=== PATIENT | male | born 1970 | race Caucasian/White ===

== ENCOUNTER → 2022-07-16 | Outpatient (CLI) | payer SELFPAY ==
[2022-07-16 12:16] LABS: Absolute Lymphocyte Count 1.45 X10^3/uL (0.83-4.51); Absolute Neutrophil Count 5.3 X10^3/uL (2.0-7.7); Basophil# 0.06 X10^3/uL; Basophil% 0.7 % (0-1); Eosinophil# 0.21 X10^3/uL; Eosinophils% 2.5 % (0-5); Hematocrit 31.7 % (40-54); Hemoglobin 9.4 g/dL (13.0-16.5); Lymphocyte # 1.45 X10^3/ul (0.83-4.51); Lymphocyte % 17.3 % (19-41); Mean Corp Hgb Conc 29.7 g/dL (32-36); Mean Corpuscular Hgb 26.3 pg (27.0-32.0); Mean Corpuscular Volume 88.8 fL (80-94); Mean Platelet Vol. 8.7 fl (6.2-12.0); Monocyte% 15.5 % (0-10); NRBC Flagged by Analyzer 0 % (0-5); Neutrophil # 5.32 X10^3/uL (2.7-7.7); Neutrophil % 63.6 % (47-70); POSITIVE COUNT YES; RBC Distribution Width SD 54.6 fl (35.1-43.9); Red Blood Count 3.57 M/mm3 (4.6-6.2); White Blood Count 8.4 K/mm3 (4.4-11.0)
[2022-07-16 12:17] LABS: AST(SGOT) 15 U/L (15-37); Alanine Aminotransfer ALT/SGPT 33 U/L (16-61); Albumin, Serum 2.4 g/dL (3.2-5.0); Alkaline Phosphatase 156 U/L (45-117); Bilirubin, Direct 0.24 mg/dL (0.00-0.30); CPK Total, Creatine Kinase 61 U/L (39-308); Creatinine, Serum 0.81 mg/dL (0.70-1.30); EST Glomerular Filtration Rate 107 mL/min (>60); Est Glom Filt Rate - Afr Amer 129 mL/min (>60); Globulin 5.8 g/dL (2.2-4.2); Protein, Total 8.2 g/dL (6.4-8.2)
[2022-07-16 12:21] LABS: Differential Indicated SCAN CRITERIA MET
[2022-07-16 13:14] LABS: Platelet Estimate MKD INC (ADEQ); Red Cell Morphology NORM C+C NORMAL (NORM C&C)
[2022-07-16 13:26] LABS: Platelet Count 825 K/mm3 (150-450)
[2022-07-17 13:54] LABS: Pathologist Review Reviewed
== END | disposition home or self-care (01) ==
DX: A41.9 Sepsis, unspecified organism (principal); C78.6 Secondary malignant neoplasm of retroperitoneum and peritoneum; C18.1 Malignant neoplasm of appendix; Z48.3 Aftercare following surgery for neoplasm
CPT/HCPCS: 80076; 82550; 82565; 85025

== ENCOUNTER → 2022-07-25 | Outpatient (CLI) | payer BC, SELFPAY ==
[2022-07-25 09:54] LABS: Absolute Lymphocyte Count 1.61 X10^3/uL (0.83-4.51); Absolute Neutrophil Count 4.8 X10^3/uL (2.0-7.7); Basophil# 0.05 X10^3/uL; Basophil% 0.6 % (0-1); Eosinophil# 0.37 X10^3/uL; Eosinophils% 4.6 % (0-5); Hemoglobin 9.5 g/dL (13.0-16.5); Lymphocyte # 1.61 X10^3/ul (0.83-4.51); Lymphocyte % 19.8 % (19-41); Mean Corp Hgb Conc 30.6 g/dL (32-36); Mean Corpuscular Hgb 27.1 pg (27.0-32.0); Mean Corpuscular Volume 88.3 fL (80-94); Mean Platelet Vol. 8.7 fl (6.2-12.0); Monocyte# 1.23 X10^3/uL; Monocyte% 15.1 % (0-10); NRBC Flagged by Analyzer 0 % (0-5); Neutrophil # 4.84 X10^3/uL (2.7-7.7); Neutrophil % 59.7 % (47-70); Platelet Count 721 K/mm3 (150-450); RBC Distribution Width SD 54.6 fl (35.1-43.9); Red Blood Count 3.51 M/mm3 (4.6-6.2); White Blood Count 8.1 K/mm3 (4.4-11.0)
[2022-07-25 10:06] LABS: AST(SGOT) 22 U/L (15-37); Alanine Aminotransfer ALT/SGPT 31 U/L (16-61); Albumin, Serum 2.6 g/dL (3.2-5.0); Alkaline Phosphatase 145 U/L (45-117); Bilirubin, Direct 0.18 mg/dL (0.00-0.30); CPK Total, Creatine Kinase 174 U/L (39-308); Creatinine, Serum 0.69 mg/dL (0.70-1.30); EST Glomerular Filtration Rate 129 mL/min (>60); Est Glom Filt Rate - Afr Amer 156 mL/min (>60); Globulin 5.5 g/dL (2.2-4.2); Protein, Total 8.1 g/dL (6.4-8.2)
== END | disposition home or self-care (01) ==
PROVIDERS: PCP Internal Medicine
DX: A41.9 Sepsis, unspecified organism (principal); Z51.89 Encounter for other specified aftercare
CPT/HCPCS: 80076; 82550; 82565; 85025

== ENCOUNTER 2024-05-04 01:56 | Emergency (ER) | payer BC, SELFPAY ==
[2024-05-04 01:57] VITALS: BP 122/84; PULSE 87; RESP 16; TEMP 36.6; O2SAT 97; BMI 30.3
--- NOTE | 2024-05-04 02:47 | CT_ITS ---
EXAM: CT ABDOMEN AND PELVIS WITH INTRAVENOUS CONTRAST CLINICAL INDICATION: vomiting, ileostomy, concern for SBO. History of appendiceal cancer with colectomy, ileostomy, and splenectomy. TECHNIQUE: Helically acquired images were obtained of the abdomen and pelvis with intravenous contrast. This CT exam was performed using one or more of the following dose reduction techniques: automated exposure control, adjustment of the mA and/or kV according to patient size, and/or use of iterative reconstruction technique. CONTRAST: 100 cc of Isovue-370 IV. Gastrografin oral contrast. RADIATION DOSE: CTDIvol = 18.30 mGy, DLP = 1304.35 mGy-cm COMPARISON: No relevant prior studies available. FINDINGS: LOWER THORAX: Unremarkable. Lung bases are clear. No cardiomegaly. No significant pericardial effusion. ABDOMEN: LIVER: Cyst measuring 2.5 cm left lobe of the liver. GALLBLADDER AND BILE DUCTS: Unremarkable. No calcified gallstones. No gallbladder distention or wall edema. No intra- or extrahepatic biliary ductal dilation. PANCREAS: Unremarkable. No focal cystic or solid mass. SPLEEN: Absent spleen. ADRENALS: Unremarkable. No nodules. KIDNEYS AND URETERS: Unremarkable. Normal renal size and position. No hydronephrosis. STOMACH AND BOWEL: Status post colectomy with ileostomy and Winters''s pouch. Oral contrast is seen throughout the small bowel. No bowel obstruction. PELVIS: APPENDIX: Status post appendectomy. BLADDER: Unremarkable. REPRODUCTIVE: Unremarkable as visualized. No mass. ABDOMEN and PELVIS: INTRAPERITONEAL SPACE: Extensive relatively low density masses throughout the peritoneum, mesentery, and omentum that causes some scalloping of the surface of the liver and mass effect on the bowel. No ascites or other fluid collection. No free air. BONES/JOINTS: Unremarkable. No suspicious lytic or blastic abnormality. SOFT TISSUES: Unremarkable. No discrete abdominal or pelvic wall hernia. VASCULATURE: Unremarkable. Abdominal aorta is non-dilated. LYMPH NODES: Unremarkable. No enlarged lymph nodes. CT/Abdomen/Pelvis WITH Contrast IMPRESSION: 1. Extensive relatively low density masses throughout the peritoneum, mesentery, and omentum that causes some scalloping of the surface of the liver and mass effect on the bowel. Findings consistent with pseudomyxoma peritonei. 2. Status post colectomy with ileostomy and Winters''s pouch. 3. Cyst measuring 2.5 cm left lobe of the liver. 4. Absent spleen. N.B. : The above Results were Read Back by Rohit Temple MD to Ish Avendaño MD, and understanding confirmed on 05/04/2024 05:14:33 (ET). Electronically Signed: Rohit Temple MD at 5:18 EDT ,
[2024-05-04] MEDS: Ondansetron 4 MG/2 ML Vial IV (02:53)
[2024-05-04 02:54] LABS: Absolute Lymphocyte Count 1.09 X10^3/uL (0.83-4.51); Absolute Neutrophil Count 13.2 X10^3/uL (2.0-7.7); Basophil# 0.08 X10^3/uL; Basophil% 0.5 % (0-1); Eosinophil# 0.86 X10^3/uL; Eosinophils% 5.1 % (0-5); Hematocrit 47.2 % (40-54); Hemoglobin 15.6 g/dL (13.0-16.5); Lymphocyte # 1.09 X10^3/ul (0.83-4.51); Lymphocyte % 6.4 % (19-41); Mean Corp Hgb Conc 33.1 g/dL (32-36); Mean Corpuscular Hgb 30.1 pg (27.0-32.0); Mean Corpuscular Volume 91.1 fL (80-94); Mean Platelet Vol. 8.6 fl (6.2-12.0); Monocyte# 1.71 X10^3/uL; Monocyte% 10.1 % (0-10); NRBC Flagged by Analyzer 0 % (0-5); Neutrophil # 13.16 X10^3/uL (2.7-7.7); Neutrophil % 77.5 % (47-70); POSITIVE DIFFERENTIAL YES; Platelet Count 426 K/mm3 (150-450); RBC Distribution Width CV 14.3 % (11.6-14.6); RBC Distribution Width SD 47.2 fl (35.1-43.9); Red Blood Count 5.18 M/mm3 (4.6-6.2)
[2024-05-04 02:55] LABS: Differential Indicated SCAN CRITERIA MET
[2024-05-04] MEDS: 0.9% Normal Saline (1000mL) 1,000 ML 125 ML IV (02:57)
[2024-05-04 02:59] VITALS: BP 125/93; PULSE 93; RESP 16; TEMP 36.5; O2SAT 96
[2024-05-04 03:08] LABS: ALB/GLOB Ratio 0.8 RATIO (0.9-2.4); AST(SGOT) 15 U/L (15-37); Alanine Aminotransfer ALT/SGPT 28 U/L (16-61); Albumin, Serum 3.9 g/dL (3.2-5.0); Alkaline Phosphatase 134 U/L (45-117); Anion Gap 8 (5-15); BUN 31 mg/dL (7-18); BUN/Creat Ratio 23.5 RATIO (10-20); Calcium,Total 9.6 mg/dL (8.5-10.1); Chloride 110 mmol/L (98-107); Creatinine, Serum 1.32 mg/dL (0.70-1.30); EST Glomerular Filtration Rate 61 mL/min (>60); Est Glom Filt Rate - Afr Amer 73 mL/min (>60); Estimated Creatinine Clearance 83.02 ml/min; Globulin 5.2 g/dL (2.2-4.2); Glucose 164 mg/dL (74-106); Potassium 3.9 mmol/L (3.5-5.1); Protein, Total 9.1 g/dL (6.4-8.2); Sodium Level 134 mmol/L (136-145)
[2024-05-04 03:24] LABS: Differential Comment SCANNED
[2024-05-04 03:38] LABS: Lactic Acid 1.1 mmol/L (0.4-1.9)
--- NOTE | 2024-05-04 03:52 | EDS_ITS ---
HPI HPI - GI History of Present Illness Chief Complaint: Abd Pain Informant: patient and family Narrative Narrative: 54-year-old male presents with about 3 hours of vomiting and increased watery ileostomy output. Denies any abdominal pain. No hematemesis or blood or melena output from the stoma. He states for the last couple days prior to this, he would have transient decreased stoma output but it never stopped, and he had no pain or nausea/vomiting or fevers along with it. 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 He states when they found issues in the past he did not have pain, and he and family specifically state they are here to be evaluated for a bowel obstruction. He denies any fevers or chills or sick contacts lately, including anyone with gastroenteritis. He denies any suspicious food ingestion. No travel out of the area of the country lately. No pains elsewhere. No history of C. difficile, no recent antibiotics for anything. No recent hospitalizations. [facility] Medical History (Updated 05/04/24 @ 05:[address] Ish Avendaño MD) Cancer of appendix Ileostomy present Acute appendicitis Home Medications ?Medication ?Instructions ?Recorded ?Last Taken ?Type bupropion HCl 150 mg tablet,12 hr 150 mg PO DAILY 05/04/24 Unknown History sustained-release fluvoxamine 150 mg 150 mg PO DAILY 05/04/24 Unknown History capsule,extended release 24 hr ondansetron 8 mg disintegrating 8 mg PO Q8H PRN nausea and 05/04/24 Unknown Rx tablet vomiting #20 tabs Allergy/AdvReac Type Severity Reaction Status Date / Time No Known Allergies Allergy Verified 05/04/24 02:04 Surgical History (Updated 05/04/24 @ 03:[address] Ish Avendaño MD) S/P splenectomy H/O colectomy Social History Smoking Status: Never smoker ROS ROS ED Constitutional Constitutional ED: Denies chills or fever(s) Eyes Eyes: Denies change in vision or diplopia ENT ENT ED: Denies rhinorrhea or sore throat Cardiovascular Cardiovascular: Denies chest pain or palpitations Respiratory/Chest Respiratory/Chest: Denies cough or dyspnea Gastrointestinal Gastrointestinal: Reports as per HPI, diarrhea, nausea and vomiting; Denies abdominal pain, hematemesis, hematochezia or melena Genitourinary Genitourinary ED: Denies dysuria or hematuria Musculoskeletal Musculoskeletal: Denies back pain or neck pain Integumentary Denies abscess or rash Neurologic Neurologic: Denies headache(s), paresthesias or weakness Psychiatric Psychiatric: Denies anxiety or suicidal thoughts EXAM Physical Exam Const Vital Signs: 05/04/24 01:57 05/04/24 02:59 05/04/24 04:00 Temperature 97.8 F 97.7 F L 97.8 F Temperature Source Oral Oral Temporal Pulse Rate 87 93 94 Respiratory Rate 16 16 16 Blood Pressure 122/84 H 125/93 H 112/74 Blood Pressure Mean 96 103 86 Pulse Ox 97 96 96 Oxygen Delivery Method Room Air Room Air Room Air 05/04/24 05:00 Temperature 97.8 F Temperature Source Oral Pulse Rate 84 Respiratory Rate 16 Blood Pressure 128/85 H Blood Pressure Mean 99 Pulse Ox 98 Oxygen Delivery Method Room Air Positive well nourished and well developed Constitutional Narrative: Well-appearing, pleasant and conversive General Appearance ED: well developed and NAD HEENT Reports moist mucous membranes normocephalic and atraumatic Eyes PERRL and EOMs intact bilaterally Neck full ROM and supple Resp normal respiratory effort and clear to auscultation bilaterally Cardio regular rate, regular rhythm and no murmurs GI non-tender and non-distended GI Narrative: Very benign abdomen no reproducible tenderness or palpable masses. Right-sided ileostomy has liquid brown stool within it and is actively putting out flatus. Bowel sounds are active. Auscultation: normoactive bowel sounds Palpation: soft Back/Spine no CVA tenderness General Back: other FROM Extremity normal to inspection General Extremety ED: Negative for edema, pulses abnormal or tenderness General Extremity: Negative for edema or pulses abnormal Neuro oriented x3, CN's II-XII intact bilaterally and no sensory deficits noted Sensorium / Orientation: awake and alert Motor Exam: strength 5/5 throughout Skin no rashes or lesions noted and no wounds MDM MDM MDM Narrative Medical decision making narrative: Although the differential may include a partial small bowel obstruction, he would be more likely to have pain with that. His symptoms are more consistent with gastroenteritis, but in obtaining some screening labs he has a significant leukocytosis. His lactate is normal. Other labs are noted. I think we are going to do a CT it would be best to perform it with oral and IV contrast, especially since he is doing well after nausea medicine and able to tolerate the oral contrast. He is comfortable with that and it was performed. I reviewed the images and report which I agree with: It shows diffuse pseudomyxoma peritonei. There is no sign of a bowel obstruction or any other acute process. I spoke with the radiologist about this. He asked if the patient knew about this already, I want to discuss it with him. He states that when he had surgery 2 years ago, that it was all over and that surgeon removed is much as he could including his entire colon and his spleen because of it, and he said 1 day he might have to have more surgeries. From what he is describing, it sounds like this was known 2 years ago, which is why he gets routine repeat CT scans. I do not have a CT to compare the images with. He is doing much better after the above fluids and medications. It is possible that his vomiting is related to the diffuse nature of the pseudomyxoma, it is also possible that it is unrelated and he has gastritis or gastroenteritis. I did send his stool for C. difficile and an enteric bacterial panel, those are not going to be resulted during the suture polisher, and so encouraged to follow-up for those results. At this time I just recommend supportive care with antiemetics, fluids, and close outpatient follow-up with his surgeon he sees Dr. Rustam Denise at [facility]. I had radiology send his CT and results to the [facility] gravity prospecting observer helper so that they can compare images and provide appropriate recommendations to the patient since he does not have an appointment until May. Lab Data Attestation: I reviewed the patient's lab results. Labs: Laboratory Results - last 24 hr 05/04/24 05/04/24 02:15 02:55 WBC 17.0 H RBC 5.18 Hgb 15.6 Hct 47.2 MCV 91.1 MCH 30.1 MCHC 33.1 RDW Std Deviation 47.2 H RDW Coeff of Dirk 14.3 Plt Count 426 MPV 8.6 Immature Gran % (Auto) 0.400 Neut % (Auto) 77.5 H Lymph % (Auto) 6.4 L Liberty % (Auto) 10.1 H Eos % (Auto) 5.1 H Baso % (Auto) 0.5 Absolute Neuts (auto) 13.2 H Absolute Lymphs (auto) 1.09 Nucleated RBC % 0 Differential Comment SCANNED Diff Path Review January Sodium 134 L Potassium 3.9 Chloride 110 H Carbon Dioxide 16.0 L Anion Gap 8 BUN 31 H Creatinine 1.32 H Estim Creat Clear Calc 83.02 Est GFR (MDRD) Af Amer 73 Est GFR (MDRD) Non-Af 61 BUN/Creatinine Ratio 23.5 H Glucose 164 H Lactic Acid 1.1 Calcium 9.6 Total Bilirubin 0.20 AST 15 ALT 28 Alkaline Phosphatase 134 H Total Protein 9.1 H Albumin 3.9 Globulin 5.2 H Albumin/Globulin Ratio 0.8 L Radiography Diagnostic Testing: Clinical Impression(s) from Imaging Studies Abdomen/Pelvis CT 05/04/24 02:47 IMPRESSION: 1. Extensive relatively low density masses throughout the peritoneum, mesentery, and omentum that causes some scalloping of the surface of the liver and mass effect on the bowel. Findings consistent with pseudomyxoma peritonei. 2. Status post colectomy with ileostomy and Winters''s pouch. 3. Cyst measuring 2.5 cm left lobe of the liver. 4. Absent spleen. N.B. : The above Results were Read Back by Rohit Temple MD to Ish Avendaño MD, and understanding confirmed on 05/04/2024 05:14:33 (ET). Electronically Signed: Rohit Temple MD at 5:18 EDT , ADDENDUM: 05/04/24 0525 IMPRESSION: 1. Extensive relatively low density masses throughout the peritoneum, mesentery, and omentum that causes some scalloping of the surface of the liver and mass effect on the bowel. Findings consistent with pseudomyxoma peritonei. 2. Status post colectomy with ileostomy and Winters''s pouch. 3. Cyst measuring 2.5 cm left lobe of the liver. 4. Absent spleen. N.B. : The above Results were Read Back by Rohit Temple MD to Ish Avendaño MD, and understanding confirmed on 05/04/2024 05:14:33 (ET). Electronically Signed: Rohit Temple MD at 5:18 EDT , Discharge Plan Triage Chief Complaint: Abd Pain ED Provider: Ish Avendaño Dx/Rx/DC Orders Clinical Impression: Nausea vomiting and diarrhea, Pseudomyxoma peritonei Instructions: ED Vomit Diarrhea Nons[place] Adult Prescriptions: New ondansetron 8 mg tablet,disintegrating 8 mg PO Q8H PRN (Reason: nausea and vomiting) Qty: 20 0RF No Action bupropion HCl 150 mg tablet sustained-release 12 hr 150 mg PO DAILY Patient Comments: [NO ORIGINAL SIG] fluvoxamine 150 mg capsule,extended release 24hr 150 mg PO DAILY Patient Comments: [NO ORIGINAL SIG] Primary Care Provider: Diandra Gonzales Referrals: Diandra Gonzales MD [Primary Care Provider] - Rowena Denise DO [Non-Staff] - (and/or Dr. Rustam Denise - call for further instructions) Print Language: Nigerian Disposition Disposition: Home, Self Care
[2024-05-04 04:00] VITALS: BP 112/74; PULSE 94; RESP 16; TEMP 36.6; O2SAT 96
[2024-05-04 05:00] VITALS: BP 128/85; PULSE 84; RESP 16; TEMP 36.6; O2SAT 98
[2024-05-04 06:01] VITALS: BP 112/83; PULSE 72; RESP 16; TEMP 36.1; O2SAT 99
[2024-05-04 13:33] LABS: Pathologist Review Reviewed
== END 2024-05-04 06:07 | disposition home or self-care (01) ==
PROVIDERS: Emergency Provider Emergency Medicine; PCP Internal Medicine; Visit Provider Emergency Medicine
DX: C78.6 Secondary malignant neoplasm of retroperitoneum and peritoneum (principal); Z93.2 Ileostomy status; R11.2 Nausea with vomiting, unspecified; R19.7 Diarrhea, unspecified; Z90.49 Acquired absence of other specified parts of digestive tract; Z90.81 Acquired absence of spleen; Z85.09 Personal history of malignant neoplasm of other digestive organs
CPT/HCPCS: 74177; 80053; 83605; 85025; 87493; 87506; 96361; 96374; 99284; Q9967; A4216; J2405

== ENCOUNTER 2024-11-26 14:40 | Inpatient (IN) | payer BC, SELFPAY ==
[2024-11-26 14:41] VITALS: BP 93/65; PULSE 87; RESP 15; TEMP 36.7; O2SAT 94; BMI 29.0
--- NOTE | 2024-11-26 15:25 | EDS_ITS ---
HPI History of Present Illness Chief Complaint: Nausea/Vomiting Detail of Chief Complaint: Flulike symptoms with nausea vomiting diarrhea Informant: patient and spouse/S.O. Onset/Context/Timing Onset: Yesterday Context: Sudden Onset Timing: Continuous and Waxes and wanes Quality: Nausea vomiting diarrhea yesterday Location: Nausea today decreased diarrhea today Current Severity: Mild Maximum Severity: Severe Worsened by: Suspected viral infection Relieved by: Nothing Associated Symptoms Associated Symptoms: Feels thirsty, lack of energy, fatigue denies lightheadedness Narrative Narrative: Patient is a 54-year-old male. 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 This was done [place] [address] Jama at [facility]. Patient presents because of nausea, vomiting diarrhea that started yesterday. Several episodes of vomiting diarrhea yesterday. He denies hematemesis or coffee-ground emesis. He denies black or maroon watery diarrhea. Patient endorses decreased urine output. He denies fever or chills. He denies upper respiratory tract symptoms. Prior similar symptoms: No Recent Illness/Hospitalization: No PFSH PFSH Medical History Cancer of appendix Ileostomy present Acute appendicitis Home Medications ?Medication ?Instructions ?Recorded ?Last Taken ?Type bupropion HCl 150 mg tablet,12 hr 150 mg PO DAILY 02/20 Unknown History sustained-release fluvoxamine 150 mg 150 mg PO DAILY 05/04/24 Unk nown History capsule,extended release 24 hr ondansetron 8 mg disintegrating 8 mg PO Q8H PRN nausea and 05/04/24 Unknown Rx tablet vomiting #20 tabs Allergy/AdvReac Type Severity Reaction Status Date / Time No Known Allergies Allergy Verified 11/26/24 14:44 Surgical History S/P splenectomy H/O colectomy Social History household members: spouse housing: house Smoking Status: Never smoker ROS ROS ED Constitutional Constitutional ED: Denies chills, fever(s), subjective or sweats Eyes Eyes: Denies blurry vision or change in vision ENT ENT ED: Denies rhinorrhea or sore throat Cardiovascular Cardiovascular: Denies chest pain or palpitations Respiratory/Chest Respiratory/Chest: Denies cough, dyspnea or dyspnea on exertion Gastrointestinal Gastrointestinal: Reports abdominal pain, diarrhea, nausea and vomiting; Denies constipation or melena Genitourinary Genitourinary ED: Denies dysuria, hematuria or urinary frequency Musculoskeletal Musculoskeletal: Denies arthralgias or myalgias Integumentary Denies rash Neurologic Neurologic: Denies headache(s) or paresthesias Hematologic/Lymphatic Hematologic/Lymphatic: Reports systems reviewed and no addt'l complaints, except as documented EXAM Physical Exam Const Vital Signs: 11/26/24 14:41 11/26/24 15:58 11/26/24 16:40 Temperature 98.1 F Temperature Source Temporal Pulse Rate 87 68 Pulse Rate [Lying] 87 Pulse Rate [Sitting (for 1 minute prior to obtaining)] 92 Pulse Rate [Standing (for 1 minute prior to obtaining)] 87 Respiratory Rate 15 Blood Pressure 93/65 112/81 H Blood Pressure [Lying] 106/74 Blood Pressure [Sitting (for 1 minute prior to obtaining)] 104/77 Blood Pressure [Standing (for 1 minute prior to obtaining)] 95/74 Blood Pressure Mean 74 91 Blood Pressure Mean [Lying] 84 Blood Pressure Mean [Sitting (for 1 minute prior to obtaining)] 86 Blood Pressure Mean [Standing (for 1 minute prior to obtaining)] 81 Pulse Ox 94 Oxygen Delivery Method Room Air 11/26/24 18:00 Temperature Temperature Source Pulse Rate 81 Pulse Rate [Lying] Pulse Rate [Sitting (for 1 minute prior to obtaining)] Pulse Rate [Standing (for 1 minute prior to obtaining)] Respiratory Rate 14 Blood Pressure 120/69 Blood Pressure [Lying] Blood Pressure [Sitting (for 1 minute prior to obtaining)] Blood Pressure [Standing (for 1 minute prior to obtaining)] Blood Pressure Mean 86 Blood Pressure Mean [Lying] Blood Pressure Mean [Sitting (for 1 minute prior to obtaining)] Blood Pressure Mean [Standing (for 1 minute prior to obtaining)] Pulse Ox 98 Oxygen Delivery Method Room Air Positive well nourished and well developed Constitutional Narrative: Vitals are marked for low blood pressure. Not tachycardic. Is not on a beta- billy. Suspect he is orthostatic since blood pressure was taken when he was sitting in triage. General Appearance ED: well developed; Negative for pallor HEENT Reports dry mucous membranes HEENT Narrative: Head is atraumatic, cephalic. Ears normal. Nares patent. Mouth ED: Yes dry mucous membranes Mouth: dry mucous membranes Eyes PERRL and EOMs intact bilaterally General Eye ED: Negative for pale conjunctiva or scleral icterus Neck no lymphadenopathy, supple and no JVD Chest Wall inspection of chest normal and palpation of chest normal Resp normal respiratory effort and clear to auscultation bilaterally Cardio regular rate, regular rhythm, S1 normal heart sound, S2 normal heart sound and no murmurs GI normal to inspection, nondistended, normoactive bowel sounds, non-tender, non- distended and no masses; Negative for hepatosplenomegaly GI Narrative: Patient has an ileostomy noted right side. Auscultation: normoactive bowel sounds Extremity normal to inspection General Extremety ED: Negative for edema or tenderness General Extremity: Negative for edema Neuro oriented x3 and CN's II-XII intact bilaterally Sensorium / Orientation: alert Psych mental status grossly normal Skin no rashes or lesions noted, no wounds and No skin turgor normal General Skin Exam: Negative for elasticity normal, jaundice or pallor MDM MDM MDM Narrative Medical decision making narrative: Patient looks ill. Will obtain orthostatic vital signs. Clinically appears dehydrated. Will obtain a BMP to assess renal function, CO2 anion gap and electrolytes and specifically evaluate for hypokalemia. 2 L of normal saline was ordered. Since he has persistent nausea Zofran was ordered. History & Record Review Additional record(s) reviewed:: Prior ED visit (April 2024 for nausea vomiting diarrhea.) and Prior labs Lab Data Attestation: I reviewed the patient's lab results. Lab results narrative: Patient has hyponatremia with a sodium of 129. Prior was 134. CO2 is 11 with an anion gap of 17. BUN is 58 with a creatinine of 3.0. April 2024 his BUN was 31 with a creatinine of 1.32. GFR at that time was 61. Suspect this is due to his nausea vomiting diarrhea that started yesterday day. Will obtain additional labs and contact hospitalist for admission for acute kidney injury due to volume loss from vomiting diarrhea. His blood pressure has corrected with 2 L of normal saline. Labs: Laboratory Results - last 24 hr 11/26/24 15:06 Sodium 129 L Potassium 3.7 Chloride Direct 101 Carbon Dioxide 11.5 L Anion Gap 17 H BUN 58 H Creatinine 3.0 H Estim Creat Clear Calc 35.79 Est GFR (MDRD) Non-Af 24 L BUN/Creatinine Ratio 19.1 Glucose 127 H Calcium 9.7 Management Discussion w/another healthcare provider: Hospitalist (The hospitalist was paged for admission for hypovolemia resulting in hypotension and acute kidney injury. Will speak with Dr. Price) Discharge Plan Dx/Rx/DC Orders Clinical Impression: Hypotension due to hypovolemia, Nausea, vomiting and diarrhea, Acute kidney injury Disposition Disposition: Acute Care Hospital [facility]
[2024-11-26] MEDS: 0.9% Normal Saline (1000mL) 1,000 ML 1000 ML IV ×2 (15:33→16:00)
[2024-11-26] MEDS: Ondansetron 4 MG/2 ML Vial IV (15:34)
[2024-11-26 15:58] VITALS: BP 104/77; BP 106/74; BP 95/74; PULSE 87; PULSE 92
[2024-11-26 16:19] LABS: Anion Gap 17 (5-15); BUN 58 mg/dL (4-19); BUN/Creat Ratio 19.1 RATIO (10-20); Calcium 9.7 mg/dL (7.6-11.0); Carbon Dioxide 11.5 mmol/L (22.0-29.0); Chloride 101 mmol/L (96-108); EST Glomerular Filtration Rate 24 (>60); Estimated Creatinine Clearance 35.79 ml/min; Glucose 127 mg/dL (70-99); Potassium 3.7 mmol/L (3.3-5.1); Sodium Level 129 mmol/L (133-145)
[2024-11-26 16:40] VITALS: BP 112/81; PULSE 68
[2024-11-26 18:00] VITALS: BP 120/69; PULSE 81; RESP 14; O2SAT 98
--- NOTE | 2024-11-26 18:49 | PCM.HP.STD ---
HPI - General General Date of Service: 11/26/24 Chief Complaint: Nausea vomiting HPI Narrative DOV BURROWS, is a 54 M who presents with nausea vomiting and increased output from his ostomy. Symptoms were primarily yesterday where he is having tractable nausea vomiting and copious amounts of fluid from his ostomy. Patient had a colectomy and partial small bowel resection due to appendicitis that ruptured. He had that surgery in 2021. He has not had much in the way of high output from his ostomy during that time. Earlier in the week, his was sick with what sound like norovirus and then he became sick yesterday. Today he feels much better at this time but he presented to the emergency room and was noted that his creatinine was up to 3. Patient did receive a liter of IV fluids and then he started having copious fluid from his ostomy at that time. And the hospitalist service was contacted for admission. [facility] Medical History Cancer of appendix Ileostomy present Acute appendicitis Home Medications ?Medication ?Instructions ?Recorded ?Last Taken ?Type bupropion HCl 150 mg tablet,12 hr 150 mg PO DAILY 05/04/24 Unknown History sustained-release fluvoxamine 150 mg 150 mg PO DAILY 05/04/24 Unknown History capsule,extended release 24 hr ondansetron 8 mg disintegrating 8 mg PO Q8H PRN nausea and 05/04/24 Unknown Rx tablet vomiting #20 tabs Allergy/AdvReac Type Severity Reaction Status Date / Time No Known Allergies Allergy Verified 11/26/24 14:44 Family History (Updated 11/26/24 @ 18:[address] Ibrahima Doan DO) Other VTE (venous thromboembolism) Surgical History S/P splenectomy H/O colectomy Social History household members: spouse housing: house Smoking Status: Never smoker ROS ROS Narrative All review of systems were negative except as mentioned above in the history of present illness and the other review of systems. Vital Signs Vital Signs Vital Signs: 11/26/24 14:41 11/26/24 15:58 11/26/24 16:40 Temperature 36.7 C Temperature Source Temporal Pulse Rate 87 68 Pulse Rate [Lying] 87 Pulse Rate [Sitting (for 1 minute prior to obtaining)] 92 Pulse Rate [Standing (for 1 minute prior to obtaining)] 87 Respiratory Rate 15 Blood Pressure 93/65 112/81 H Blood Pressure [Lying] 106/74 Blood Pressure [Sitting (for 1 minute prior to obtaining)] 104/77 Blood Pressure [Standing (for 1 minute prior to obtaining)] 95/74 Blood Pressure Mean 74 91 Blood Pressure Mean [Lying] 84 Blood Pressure Mean [Sitting (for 1 minute prior to obtaining)] 86 Blood Pressure Mean [Standing (for 1 minute prior to obtaining)] 81 Pulse Ox 94 Oxygen Delivery Method Room Air 11/26/24 18:00 Temperature Temperature Source Pulse Rate 81 Pulse Rate [Lying] Pulse Rate [Sitting (for 1 minute prior to obtaining)] Pulse Rate [Standing (for 1 minute prior to obtaining)] Respiratory Rate 14 Blood Pressure 120/69 Blood Pressure [Lying] Blood Pressure [Sitting (for 1 minute prior to obtaining)] Blood Pressure [Standing (for 1 minute prior to obtaining)] Blood Pressure Mean 86 Blood Pressure Mean [Lying] Blood Pressure Mean [Sitting (for 1 minute prior to obtaining)] Blood Pressure Mean [Standing (for 1 minute prior to obtaining)] Pulse Ox 98 Oxygen Delivery Method Room Air Weight Weight: 99.79 kg Body Mass Index (BMI) 29.0 Physical Exam Const alert, no apparent distress, average body habitus and healthy appearing Constitutional Narrative: Patient is very comfortable in bed. Nontoxic. HEENT normocephalic and head/scalp atraumatic Eyes Eyes Narrative: Glasses. No icterus Resp normal respiratory effort, no retractions, no use of accessory muscles and clear to auscultation bilaterally Cardio regular rate, regular rhythm, S1 normal heart sound and S2 normal heart sound GI normal to inspection, nondistended, normoactive bowel sounds, soft to palpation, non-tender and non-distended GI Narrative: Ostomy present. Extremity normal to inspection, full ROM and no clubbing, cyanosis or edema Neuro moves all extremities Results Lab / Micro Data Attestation: I reviewed the patient's lab results. 11/26/24 15:06 Labs: Laboratory Results - last 24 hr 11/26/24 15:06: Sodium 129 L, Potassium 3.7, Chloride Direct 101, Carbon Dioxide 11.5 L, Anion Gap 17 H, BUN 58 H, Creatinine 3.0 H, Estim Creat Clear Calc 35.79, Est GFR (MDRD) Non-Af 24 L, BUN/Creatinine Ratio 19.1, Glucose 127 H, Calcium 9.7 Assessment & Plan Assessment/Plan (1) Acute kidney injury: PLAN: Secondary to volume depletion from vomiting and diarrhea. Patient received a liter of IV fluids in the emergency room and will continue for now. Follow-up BMP in the morning. (2) Nausea, vomiting and diarrhea: PLAN: Sounds like patient had a viral gastroenteritis possible norovirus. Patient's had had it days prior to him developing the symptoms. Primate although worse by his history of colectomy. Supportive management at this time with antiemetics and loperamide as needed. Send the patient is feeling better at this time we will start him on diet. 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 I he said that he has been told he had that before. Patient to follow-up with his surgeon for previous routine. Depression: Continue with bupropion and fluvoxamine. VTE prophylaxis: Low risk as patient is observation status. Disposition: Anticipate the patient be able to be discharged on the as long as he is able to tolerate diet and his kidney function continues to improve. Case discussed with the patient's daughter at bedside. Charges/Coding Visit Charges Inpatient E&M: 96288 Init Hosp L2
[2024-11-26 19:06] LABS: Absolute Lymphocyte Count 0.77 X10^3/uL (0.83-4.51); Absolute Neutrophil Count 10.6 X10^3/uL (2.0-7.7); Basophil# 0.03 X10^3/uL; Basophil% 0.2 % (0-1); Eosinophil# 0.07 X10^3/uL; Eosinophils% 0.6 % (0-5); Hematocrit 41.8 % (40-54); Hemoglobin 13.7 g/dL (13.0-16.5); Lymphocyte # 0.77 X10^3/ul (0.83-4.51); Lymphocyte % 6.1 % (19-41); Mean Corp Hgb Conc 32.8 g/dL (32-36); Mean Corpuscular Hgb 30.9 pg (27.0-32.0); Mean Corpuscular Volume 94.4 fL (80-94); Mean Platelet Vol. 8.6 fl (6.2-12.0); Monocyte% 8.7 % (0-10); NRBC Flagged by Analyzer 0 % (0-5); Neutrophil # 10.61 X10^3/uL (2.7-7.7); Neutrophil % 83.8 % (47-70); Platelet Count 410 K/mm3 (150-450); RBC Distribution Width CV 14.6 % (11.6-14.6); RBC Distribution Width SD 51.1 fl (35.1-43.9); Red Blood Count 4.43 M/mm3 (4.6-6.2); White Blood Count 12.7 K/mm3 (4.4-11.0)
[2024-11-26 19:07] VITALS: BP 120/69; PULSE 81; RESP 14; TEMP 36.8; O2SAT 98
[2024-11-26 19:47] VITALS: BP 111/84; PULSE 96; RESP 18; TEMP 37.1; O2SAT 96
[2024-11-26 19:49] VITALS: BMI 26.7
[2024-11-26] MEDS: 0.9% Normal Saline (1000mL) 1,000 ML 150 ML IV (20:10)
[2024-11-26] MEDS: Loperamide 2 MG Capsule PO (20:19)
[2024-11-26] MEDS: buPROPion (SR) 150 MG Tablet.SA PO (21:44)
[2024-11-27 02:26] VITALS: BP 112/80; PULSE 76; RESP 18; TEMP 36.6; O2SAT 96
[2024-11-27 08:30] VITALS: BP 121/75; PULSE 94; RESP 18; TEMP 36.6; O2SAT 98
[2024-11-27 08:37] LABS: Absolute Lymphocyte Count 0.57 X10^3/uL (0.83-4.51); Absolute Neutrophil Count 7.7 X10^3/uL (2.0-7.7); Basophil# 0.03 X10^3/uL; Basophil% 0.3 % (0-1); Eosinophil# 0.08 X10^3/uL; Eosinophils% 0.8 % (0-5); Hematocrit 43.1 % (40-54); Hemoglobin 13.7 g/dL (13.0-16.5); Lymphocyte # 0.57 X10^3/ul (0.83-4.51); Lymphocyte % 5.8 % (19-41); Mean Corp Hgb Conc 31.8 g/dL (32-36); Mean Corpuscular Hgb 30.4 pg (27.0-32.0); Mean Corpuscular Volume 95.6 fL (80-94); Mean Platelet Vol. 8.5 fl (6.2-12.0); Monocyte# 1.32 X10^3/uL; Monocyte% 13.5 % (0-10); NRBC Flagged by Analyzer 0.2 % (0-5); Neutrophil # 7.73 X10^3/uL (2.7-7.7); POSITIVE DIFFERENTIAL YES; Platelet Count 381 K/mm3 (150-450); RBC Distribution Width CV 14.8 % (11.6-14.6); RBC Distribution Width SD 52.1 fl (35.1-43.9); Red Blood Count 4.51 M/mm3 (4.6-6.2); White Blood Count 9.8 K/mm3 (4.4-11.0)
[2024-11-27] MEDS: buPROPion (SR) 150 MG Tablet.SA PO (09:38)
[2024-11-27 10:05] LABS: Anion Gap 15 (5-15); BUN 51 mg/dL (4-19); BUN/Creat Ratio 20.9 RATIO (10-20); Calcium 9.3 mg/dL (7.6-11.0); Chloride 105 mmol/L (96-108); Creatinine, Serum 2.42 mg/dL (0.70-1.20); EST Glomerular Filtration Rate 31 (>60); Estimated Creatinine Clearance 39.19 ml/min; Glucose 106 mg/dL (70-99); Potassium 3.7 mmol/L (3.3-5.1); Sodium Level 129 mmol/L (133-145)
--- NOTE | 2024-11-27 10:05 | NURSING ---
respiratory therapist called Dajuan
[2024-11-27 10:30] LABS: Allen Test Positive; Base Excess -18 mmol/L (-2 to +2); Blood Gas Specimen Type ART; Mode Not entered; O2 Delivery Device Room Air; PO2 91 mmHG (75-100); SITE R Radial; SO2 95 % (95-99); Total Carbon Dioxide 11 mmol/L; pCO2 25.7 mmHg (35-45)
[2024-11-27] MEDS: Sodium Bicarbonate 150 MEQ in Dextrose 5%-Water (1000mL Bag) 1,000 ML 125 MEQ IV ×2 (10:55→21:11)
[2024-11-27 12:41] VITALS: BP 109/74; PULSE 88; RESP 18; TEMP 36.9; O2SAT 98
[2024-11-27 13:29] LABS: Anion Gap 14 (5-15); BUN 51 mg/dL (4-19); BUN/Creat Ratio 21.2 RATIO (10-20); Calcium 9.1 mg/dL (7.6-11.0); Chloride 104 mmol/L (96-108); Creatinine, Serum 2.41 mg/dL (0.70-1.20); EST Glomerular Filtration Rate 32 (>60); Estimated Creatinine Clearance 39.35 ml/min; Glucose 88 mg/dL (70-99); Potassium 3.3 mmol/L (3.3-5.1); Sodium Level 131 mmol/L (133-145)
[2024-11-27 14:27] LABS: Anion Gap 15 (5-15); BUN 50 mg/dL (4-19); BUN/Creat Ratio 20.4 RATIO (10-20); Calcium 8.9 mg/dL (7.6-11.0); Chloride 104 mmol/L (96-108); Creatinine, Serum 2.47 mg/dL (0.70-1.20); EST Glomerular Filtration Rate 31 (>60); Glucose 98 mg/dL (70-99); Potassium 3.2 mmol/L (3.3-5.1); Sodium Level 130 mmol/L (133-145)
--- NOTE | 2024-11-27 14:57 | US_ITS ---
PROCEDURE: KIDNEY AND BLADDER REASON FOR EXAM: AK I TECHNIQUE: Bilateral renal ultrasound. COMPARISON: None. FINDINGS: Normal renal sizes, parenchymal thicknesses, and echotextures. No hydronephrosis. No cysts or large solid renal masses. RIGHT Kidney Size: 11.9 x 5.8 x 6.5 cm Volume: mL Cortical Thickness (if discernible): 1.3 (>6mm is normal) LEFT Kidney Size: 10.1 x 5.3 x 5.6 Volume: mL Cortical Thickness (if discernible): 1.1 (>6mm is normal) Superior to the left kidney there is a hypoechoic complex fluid collection measuring 9.4 x 8.3 x 5.9 cm. US/Kidney and Bladder IMPRESSION: 1. Normal echotexture of the bilateral kidneys with no evidence of hydronephro sis or masses. 2. Incidental note is made of complex fluid collection superior to the left ki dney. Reading Location: [facility]
[2024-11-27] MEDS: Potassium Chloride Oral Tablet 20 MEQ 60 MEQ PO (15:58)
[2024-11-27 16:26] VITALS: BP 159/87; PULSE 68; RESP 18; TEMP 36.7; O2SAT 98
--- NOTE | 2024-11-27 18:43 | PN.HOSP_ITS ---
Reason for Visit Reason for Visit: Nausea/vomiting, high output ostomy Subjective Subjective Patient states he is overall feeling much better. States he feels like his ostomy is closer to normal. Does not have any colon so he typically has higher outputs. Has not tried Metamucil in the past. Is anxious to go home but we discussed his labs are still abnormal so we will continue doing what were doing for now. Objective Data Objective Data Vital Signs: Vital Signs Temp Pulse Resp BP Pulse Ox O2 Del Method 98.1 F 68 18 159/87 H 98 Room Air 11/27/24 16:26 11/27/24 16:26 11/27/24 16:26 11/27/24 16:26 11/27/24 16:26 11/27/24 16:26 Oxygen Delivery Method Room Air Weight: 91.6 kg Body Mass Index (BMI) 26.7 Intake & Output: Intake and Output for Last 24 Hours 11/25/24 11/26/24 11/27/24 23:59 23:59 23:59 Intake Total 1450 / 1450 2650 / 2650 Output Total 2350 / 2350 Balance 1450 / 1450 300 / 300 Lab / Micro Data 11/27/24 08:18 11/27/24 13:40 Labs: Laboratory Results - last 24 hr 11/26/24 18:57: WBC 12.7 H, RBC 4.43 L, Hgb 13.7, Hct 41.8, MCV 94.4 H, MCH 30.9, MCHC 32.8, RDW Std Deviation 51.1 H, RDW Coeff of Dirk 14.6, Plt Count 410, MPV 8.6, Immature Gran % (Auto) 0.600, Neut % (Auto) 83.8 H, Lymph % (Auto) 6.1 L, Sargent % (Auto) 8.7, Eos % (Auto) 0.6, Baso % (Auto) 0.2, Absolute Neuts (auto) 10.6 H, Absolute Lymphs (auto) 0.77 L, Nucleated RBC % 0 11/27/24 08:18: WBC 9.8, RBC 4.51 L, Hgb 13.7, Hct 43.1, MCV 95.6 H, MCH 30.4, M CHC 31.8 L, RDW Std Deviation 52.1 H, RDW Coeff of Dirk 14.8 H, Plt Count 381, MPV 8.5, Immature Gran % (Auto) 0.600, Neut % (Auto) 79.0 H, Lymph % (Auto) 5.8 L, Sargent % (Auto) 13.5 H, Eos % (Auto) 0.8, Baso % (Auto) 0.3, Absolute Neuts (auto) 7.7, Absolute Lymphs (auto) 0.57 L, Nucleated RBC % 0.2, Sodium 129 L, Potassium 3.7, Chloride Direct 105, Carbon Dioxide 9.0 L*, Anion Gap 15, BUN 51 H, Creatinine 2.42 H, Estim Creat Clear Calc 39.19, Est GFR (MDRD) Non-Af 31 L, BUN/Creatinine Ratio 20.9 H, Glucose 106 H, Calcium 9.3 11/27/24 12:37: Sodium 131 L, Potassium 3.3, Chloride Direct 104, Carbon Dioxide 13.0 L, Anion Gap 14, BUN 51 H, Creatinine 2.41 H, Estim Creat Clear Calc 39.35, Est GFR (MDRD) Non-Af 32 L, BUN/Creatinine Ratio 21.2 H, Glucose 88, Calcium 9.1 11/27/24 13:40: Sodium 130 L, Potassium 3.2 L, Chloride Direct 104, Carbon Dioxide 11.0 L, Anion Gap 15, BUN 50 H, Creatinine 2.47 H, Estim Creat Clear Calc 38.40, Est GFR (MDRD) Non-Af 31 L, BUN/Creatinine Ratio 20.4 H, Glucose 98, Calcium 8.9 ABG Data ABG results: ABG 11/27/24 10:26 Specimen Type ART Sample Site R Radial pH 7.20 L Bicarbonate Actual 10.0 L Total CO2 11 Base Excess -18 L O2 Saturation 95 ABG pCO2 25.7 L ABG pO2 91 Luis Manuel Test Positive O2 Delivery Device Room Air Vent Mode Not entered Crit Call To/Read Back Yes Blood Gas Notified Whom wilbert Blood Gas Notified Time 10:28:10 Radiography Diagnostic Testing: Radiology Impression Renal Ultrasound 11/27/24 14:57 IMPRESSION: 1. Normal echotexture of the bilateral kidneys with no evidence of hydronephrosis or masses. 2. Incidental note is made of complex fluid collection superior to the left kidney. Reading Location: [facility] Physical Exam Const alert, oriented x3, no apparent distress, average body habitus, healthy appearing and well nourished Constitutional Narrative: Very pleasant, middle-aged, white male, sitting up in bed, watching television, appears comfortable HEENT head/scalp atraumatic and moist oral mucous membranes Head and Scalp: normocephalic Resp normal respiratory effort, no retractions, no use of accessory muscles and clear to auscultation bilaterally Auscultation: Negative for rales, rhonchi or wheezes Cardio regular rate, regular rhythm, S1 normal heart sound, S2 normal heart sound, no murmurs, no rub and no clicks GI normal to inspection, nondistended, normoactive bowel sounds and soft to palpation GI Narrative: Ostomy in place, no significant high output noted at this time, no tenderness Extremity no clubbing, cyanosis or edema Extremity Narrative: Pedal pulses are 2+ Neuro oriented x3, moves all extremities and no focal motor deficits Speech: speech normal Psych affect normal Assessment & Plan Assessment/Plan (1) Acute kidney injury: (2) Metabolic acidosis: (3) Hypokalemia: (4) Nausea, vomiting and diarrhea: (5) Hypotension due to hypovolemia: PLAN: Plan Nausea/vomiting/diarrhea -Improved -Enteric panel unremarkable -C. difficile unremarkable -Continue IV fluids to assist with renal function -As needed antiemetics available -Advance diet -Start Metamucil for bulk forming of the stool and water absorption since patient has limited colonic supply [place] on CKD stage IIIb -Appears at baseline renal function is about 1.2-1.4 -Renal function on presentation was 3.0 -Has slowly trended down with IV fluids -Continue to push IV fluids with bicarb drip due to severe acidosis -Clinically appears to be improving -Check renal ultrasound -Check urinalysis -Check urine sodium and urine creatinine Hypotension secondary hypovolemia -Resolved Anion gap metabolic acidosis -Secondary to renal failure plus likely bicarb GI losses -Continue bicarb drip and follow serial BMPs -Should slowly improve -ABG was performed and showed a pH of 7.2 Acute hyponatremia -Suspect related to volume depletion -continue bicarb drip -continue follow serial BMPs History of appendiceal malignancy status post colectomy -Has ostomy -Has been high output -Add Metamucil GERD -Continue PPI Depression/anxiety -Continue home medications DVT prophylaxis -Start subcu heparin CODE STATUS -Full code Charges/Coding Visit Charges Inpatient E&M: 24328 Subs Hosp L2
[2024-11-27 18:47] LABS: Anion Gap 14 (5-15); BUN 50 mg/dL (4-19); BUN/Creat Ratio 21.9 RATIO (10-20); Calcium 8.5 mg/dL (7.6-11.0); Carbon Dioxide 14.6 mmol/L (22.0-29.0); Chloride 105 mmol/L (96-108); Creatinine, Serum 2.27 mg/dL (0.70-1.20); EST Glomerular Filtration Rate 34 (>60); Estimated Creatinine Clearance 41.78 ml/min; Glucose 92 mg/dL (70-99); Sodium Level 134 mmol/L (133-145)
[2024-11-27 19:51] VITALS: BP 113/76; PULSE 86; RESP 17; TEMP 36.8; O2SAT 97
[2024-11-27 19:59] VITALS: PULSE 86; RESP 17
[2024-11-27] MEDS: Heparin Injection (Vial) 5,000 UNIT/ML VIAL 5000 UNIT SC (20:20)
[2024-11-27] MEDS: Psyllium 1 PACKET PO (20:20)
[2024-11-27 22:37] LABS: Anion Gap 15 (5-15); BUN 49 mg/dL (4-19); BUN/Creat Ratio 22.2 RATIO (10-20); Calcium 8.7 mg/dL (7.6-11.0); Carbon Dioxide 12.9 mmol/L (22.0-29.0); Chloride 104 mmol/L (96-108); Creatinine, Serum 2.19 mg/dL (0.70-1.20); EST Glomerular Filtration Rate 35 (>60); Estimated Creatinine Clearance 43.31 ml/min; Glucose 113 mg/dL (70-99); Potassium 2.9 mmol/L (3.3-5.1); Sodium Level 132 mmol/L (133-145)
[2024-11-28 04:55] LABS: Urine Sodium < 20 mmol/L (Not Establ.)
[2024-11-28 05:05] VITALS: BP 104/82; PULSE 74; RESP 18; TEMP 36.6; O2SAT 95
[2024-11-28] MEDS: Psyllium 1 PACKET PO ×3 (05:07→22:56)
[2024-11-28] MEDS: Heparin Injection (Vial) 5,000 UNIT/ML VIAL 5000 UNIT SC ×3 (05:07→22:56)
[2024-11-28 05:14] LABS: Color, Urine Straw (Yellow); Glucose, Dipstick Normal (Normal); Ketone-Dipstick Negative (Negative); Leukocyte Esterase-Dipstick Negative /ul (Negative); Nitrite-Dipstick Negative (Negative); Occult Blood-Urine 25 /ul (Negative); Protein-Dipstick 30 mg/dl (Negative); Specific Gravity, Urine 1.015 (1.002-1.030); Urine Bilirubin Dipstick Negative (Negative); Urine Clarity Clear (Clear); Urine Urobilinogen Normal (Normal)
[2024-11-28] MEDS: Sodium Bicarbonate 150 MEQ in Dextrose 5%-Water (1000mL Bag) 1,000 ML 125 MEQ IV ×3 (05:15→20:13)
[2024-11-28 05:46] LABS: Bacteria RARE /hpf (None Seen); Red Blood Cells-Urine 0 SEEN /hpf (0-5); Squamous Epithelial Cells - UA 0-5 SEEN /hpf (0-5); White Blood Cells 5-10 SEEN /hpf (0-5)
[2024-11-28 05:47] LABS: Fine Granular Cast- Urine 10-25 SEEN /lpf (0-5); Mucous, Urine RARE /hpf (<or=2+)
[2024-11-28 07:14] LABS: Absolute Lymphocyte Count 0.85 X10^3/uL (0.83-4.51); Absolute Neutrophil Count 7.9 X10^3/uL (2.0-7.7); Basophil# 0.04 X10^3/uL; Basophil% 0.4 % (0-1); Eosinophil# 0.06 X10^3/uL; Eosinophils% 0.6 % (0-5); Hematocrit 40.7 % (40-54); Hemoglobin 13.6 g/dL (13.0-16.5); Lymphocyte # 0.85 X10^3/ul (0.83-4.51); Lymphocyte % 8.2 % (19-41); Mean Corp Hgb Conc 33.4 g/dL (32-36); Mean Corpuscular Hgb 30.8 pg (27.0-32.0); Mean Corpuscular Volume 92.1 fL (80-94); Mean Platelet Vol. 8.5 fl (6.2-12.0); Monocyte# 1.43 X10^3/uL; Monocyte% 13.8 % (0-10); NRBC Flagged by Analyzer 0 % (0-5); Neutrophil % 76.5 % (47-70); Platelet Count 383 K/mm3 (150-450); RBC Distribution Width CV 14.5 % (11.6-14.6); RBC Distribution Width SD 49.2 fl (35.1-43.9); Red Blood Count 4.42 M/mm3 (4.6-6.2); White Blood Count 10.3 K/mm3 (4.4-11.0)
[2024-11-28 07:52] LABS: AST(SGOT) 20 U/L (<=37); Alanine Aminotransfer ALT/SGPT 27 U/L (<=46); Albumin, Serum 3.9 g/dL (3.5-5.0); Alkaline Phosphatase 105 U/L (40-129); Anion Gap 16 (5-15); BUN 47 mg/dL (4-19); BUN/Creat Ratio 21.1 RATIO (10-20); Calcium 9.2 mg/dL (7.6-11.0); Carbon Dioxide 15.7 mmol/L (22.0-29.0); Chloride 100 mmol/L (96-108); Creatinine, Serum 2.22 mg/dL (0.70-1.20); EST Glomerular Filtration Rate 35 (>60); Estimated Creatinine Clearance 42.72 ml/min; Glucose 132 mg/dL (70-99); Magnesium 1.3 mg/dL (1.5-2.2); Potassium 3.2 mmol/L (3.3-5.1); Protein, Total 7.9 g/dL (5.9-8.4); Sodium Level 132 mmol/L (133-145)
[2024-11-28 09:19] LABS: Anion Gap 16 (5-15); BUN 47 mg/dL (4-19); BUN/Creat Ratio 21.2 RATIO (10-20); Calcium 8.9 mg/dL (7.6-11.0); Carbon Dioxide 13.6 mmol/L (22.0-29.0); Chloride 102 mmol/L (96-108); EST Glomerular Filtration Rate 35 (>60); Estimated Creatinine Clearance 43.11 ml/min; Glucose 125 mg/dL (70-99); Sodium Level 132 mmol/L (133-145)
[2024-11-28] MEDS: Potassium Chloride Oral Tablet 20 MEQ 60 MEQ PO ×2 (09:24→15:10)
[2024-11-28] MEDS: Lactated Ringers 1,000 ML 150 ML IV ×3 (09:25→22:54)
[2024-11-28] MEDS: buPROPion (SR) 150 MG Tablet.SA PO (09:25)
[2024-11-28] MEDS: 0.9% Normal Saline (100mL Bag) 100 ML 15 ML IV (09:31)
[2024-11-28] MEDS: Magnesium Sulfate 2 GM in Dextrose 5%-Water (100mL Bag) 100 ML IV (09:31)
[2024-11-28 09:41] VITALS: BP 106/82; PULSE 87; RESP 16; TEMP 36.6; O2SAT 99
[2024-11-28] MEDS: 0.9% Saline Lock 10 ML Syringe IV (11:35)
--- NOTE | 2024-11-28 12:20 | CASEMGMT ---
RN LISS OB GYN LISS?to room to meet with patient for initial transition planning/care coordination assessment. RN LISS?introduced self and role at [facility]. Pt voices understanding and consents to assessment?at this time. Pt resting in bed in no distress at this time. Pt is A/O at this time and answers all questions appropriately. Care providers, pharmacy, and demographics verified/updated at this time. PCP: Dr Gonzales Specialists: Dr Love @ [facility] Preferred Pharmacy: [facility] Insurance: [employer] Prescription Benefit: Yes Living Will/HPOA: States does not have LW or HCPOA . Interested in more information but states does not want to talk with SW at this time to complete paperwork. Pt made aware that he can contact SW as an out-pt and make appt in the future if he decides he would like to talk with someone about this or would like to utilize [facility] social work for advanced directive completion. He was provided w/AD booklet and educated that w/out HCPOA in place, his 3 biological children would be medical decision makers in the event he was not able to make decisions. He voices understanding. LNOK: Sig other, Erika. Syl Marrero. Pt has 3 biological children, but states he has not seen them for 15 + yrs. Living Arrangements: Lives w/sig other, Erika, and Syl marrero in ranch-style home w/2 steps to enter. Independent. Transportation:Pt states drives self and states no transportation concerns at this time. DME: Pt has an ileostomy and has sufficient amt of supplies, he gets them from [facility], Pt states no need for further DME at this time. HHC/SNF: No hx of either. 6 cl: 24. Pt wishes to return home and states has no concerns with going home at time of discharge. PLAN: Home Luis M SALMON RN, CM
[2024-11-28 13:23] LABS: Anion Gap 16 (5-15); BUN 46 mg/dL (4-19); BUN/Creat Ratio 21.1 RATIO (10-20); Calcium 8.9 mg/dL (7.6-11.0); Carbon Dioxide 14.7 mmol/L (22.0-29.0); Chloride 102 mmol/L (96-108); Creatinine, Serum 2.18 mg/dL (0.70-1.20); EST Glomerular Filtration Rate 36 (>60); Estimated Creatinine Clearance 43.51 ml/min; Glucose 122 mg/dL (70-99); Potassium 2.8 mmol/L (3.3-5.1); Sodium Level 133 mmol/L (133-145)
--- NOTE | 2024-11-28 13:58 | PN.HOSP_ITS ---
Reason for Visit Reason for Visit: High output ostomy Subjective Subjective Patient states he is really feeling overall pretty well. Output is about normal but always fairly liquidy. We did discuss that his renal function is still quite not normalized and he still acidotic. Will continue bicarb drip and repeat lab this afternoon. Damaris was consistent with severe dehydration at 0.35%. Objective Data Objective Data Vital Signs: Vital Signs Temp Pulse Resp BP Pulse Ox O2 Del Method 97.9 F 87 16 106/82 H 99 Room Air 11/28/24 09:41 11/28/24 09:41 11/28/24 09:41 11/28/24 09:41 11/28/24 09:41 11/28/24 09:41 Oxygen Delivery Method Room Air Weight: 91.6 kg Body Mass Index (BMI) 26.7 Intake & Output: Intake and Output for Last 24 Hours 11/26/24 11/27/24 11/28/24 23:59 23:59 23:59 Intake Total 1450 / 1450 4950 / 4950 3304.00 / 3304.00 Output Total 2850 / 2850 2550 / 2550 Balance 1450 / 1450 2100 / 2100 754.00 / 754.00 Lab / Micro Data 11/28/24 06:59 11/28/24 12:30 Labs: Laboratory Results - last 24 hr 11/27/24 13:40: Sodium 130 L, Potassium 3.2 L, Chloride Direct 104, Carbon Dioxide 11.0 L, Anion Gap 15, BUN 50 H, Creatinine 2.47 H, Estim Creat Clear Calc 38.40, Est GFR (MDRD) Non-Af 31 L, BUN/Creatinine Ratio 20.4 H, Glucose 98, Calcium 8.9 11/27/24 18:11: Sodium 134, Potassium 3.0 L, Chloride Direct 105, Carbon Dioxide 14.6 L, Anion Gap 14, BUN 50 H, Creatinine 2.27 H, Estim Creat Clear Calc 41.78, Est GFR (MDRD) Non-Af 34 L, BUN/Creatinine Ratio 21.9 H, Glucose 92, Calcium 8.5 11/27/24 18:45: Urine Color Straw, Urine Clarity Clear, Urine pH 6.0, Ur Specific [place] 1.015, Urine Protein 30 H, Urine Glucose (UA) Normal, Urine Ketones Negative, Urine Occult Blood 25 H, Urine Nitrite Negative, Urine Bilirubin Negative, Urine Urobilinogen Normal, Ur Leukocyte Esterase Negative, Urine RBC 0 SEEN, Urine WBC 5-10 SEEN, Ur Squamous Epith Cells 0-5 SEEN, Urine Bacteria RARE, Fine Granular Casts 10-25 SEEN, Urine Mucus RARE, Ur Random Sodium < 20, Urine Creatinine 96.10 11/27/24 22:03: Sodium 132 L, Potassium 2.9 L, Chloride Direct 104, Carbon Dioxide 12.9 L, Anion Gap 15, BUN 49 H, Creatinine 2.19 H, Estim Creat Clear Calc 43.31, Est GFR (MDRD) Non-Af 35 L, BUN/Creatinine Ratio 22.2 H, Glucose 113 H, Calcium 8.7 11/28/24 06:59: WBC 10.3, RBC 4.42 L, Hgb 13.6, Hct 40.7, MCV 92.1, MCH 30.8, M CHC 33.4 D, RDW Std Deviation 49.2 H, RDW Coeff of Dirk 14.5, Plt Count 383, MPV 8.5, Immature Gran % (Auto) 0.500, Neut % (Auto) 76.5 H, Lymph % (Auto) 8.2 L, M emre % (Auto) 13.8 H, Eos % (Auto) 0.6, Baso % (Auto) 0.4, Absolute Neuts (auto) 7.9 H, Absolute Lymphs (auto) 0.85, Nucleated RBC % 0, Sodium 132 L, Potassium 3.2 L, Chloride Direct 100, Carbon Dioxide 15.7 L, Anion Gap 16 H, BUN 47 H, C reatinine 2.22 H, Estim Creat Clear Calc 42.72, Est GFR (MDRD) Non-Af 35 L, B UN/Creatinine Ratio 21.1 H, Glucose 132 H, Calcium 9.2, Phosphorus 3.0, M agnesium 1.3 L, Total Bilirubin 0.20, AST 20, ALT 27, Alkaline Phosphatase 105, Total Protein 7.9, Albumin 3.9, Globulin 4.0, Albumin/Globulin Ratio 1.0 11/28/24 08:43: Sodium 132 L, Potassium 3.0 L, Chloride Direct 102, Carbon Dioxide 13.6 L, Anion Gap 16 H, BUN 47 H, Creatinine 2.20 H, Estim Creat Clear Calc 43.11, Est GFR (MDRD) Non-Af 35 L, BUN/Creatinine Ratio 21.2 H, Glucose 125 H, Calcium 8.9 11/28/24 12:30: Sodium 133, Potassium 2.8 L, Chloride Direct 102, Carbon Dioxide 14.7 L, Anion Gap 16 H, BUN 46 H, Creatinine 2.18 H, Estim Creat Clear Calc 43.51, Est GFR (MDRD) Non-Af 36 L, BUN/Creatinine Ratio 21.1 H, Glucose 122 H, Calcium 8.9 Radiography Diagnostic Testing: Radiology Impression Renal Ultrasound 11/27/24 14:57 IMPRESSION: 1. Normal echotexture of the bilateral kidneys with no evidence of hydronephrosis or masses. 2. Incidental note is made of complex fluid collection superior to the left kidney. Reading Location: [facility] Physical Exam Const alert, oriented x3, no apparent distress, average body habitus, healthy appearing and well nourished Constitutional Narrative: Very pleasant, middle-aged, white male, sitting up in bed, watching television, appears comfortable HEENT normocephalic, head/scalp atraumatic and moist oral mucous membranes Resp normal respiratory effort, no retractions, no use of accessory muscles and clear to auscultation bilaterally Auscultation: Negative for rales, rhonchi or wheezes Cardio regular rate, regular rhythm, S1 normal heart sound, S2 normal heart sound, no murmurs, no rub, no gallops and no clicks GI normal to inspection, nondistended, normoactive bowel sounds and soft to palpation GI Narrative: Ostomy in place, output is watery but not voluminous, no abdominal tenderness present Extremity no clubbing, cyanosis or edema Extremity Narrative: Pedal pulses are 2+ Neuro oriented x3, moves all extremities and no focal motor deficits Speech: speech normal Psych affect normal Assessment & Plan Assessment/Plan (1) Acute kidney injury: (2) Metabolic acidosis: (3) Hypokalemia: (4) Nausea, vomiting and diarrhea: (5) Hypotension due to hypovolemia: PLAN: Plan Nausea/vomiting/diarrhea -Resolved [place] on CKD stage IIIb -Appears at baseline renal function is about 1.2-1.4 -Renal function on presentation was 3.0 -Renal function continues to trend down slowly--> now 2.14 -Continue bicarb drip as he still acidotic -Continue aggressive IV fluids with LR at 200 cc/h x 3 L -Damaris was calculated at 0.34% indicating severe prerenal azotemia from dehydration -Clinically appears to be improving -Renal ultrasound shows a complex cyst in the left kidney and normal echotexture of the bilateral kidneys without evidence of hydronephrosis or mass Anion gap metabolic acidosis -Secondary to renal failure plus likely bicarb GI losses -Continue bicarb drip and follow serial BMPs -Extra fluids added -Add oral bicarb as 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 potassium has been given -Recheck in a.m. Acute hyponatremia -Resolved History of appendiceal malignancy status post colectomy -Has ostomy -Has been high output -Add Metamucil GERD -Continue PPI Depression/anxiety -Continue home medications DVT prophylaxis -Continue subcu heparin CODE STATUS -Full code Charges/Coding Visit Charges Inpatient E&M: 55023 Subs Hosp L2
[2024-11-28] MEDS: Sodium Bicarbonate 650 MG Tablet PO ×3 (15:10→22:57)
[2024-11-28 15:16] VITALS: BP 106/83; PULSE 80; RESP 18; TEMP 36.4; O2SAT 96
[2024-11-28 22:53] VITALS: BP 110/85; PULSE 80; RESP 16; TEMP 36.9; O2SAT 97
[2024-11-29] MEDS: Sodium Bicarbonate 150 MEQ in Dextrose 5%-Water (1000mL Bag) 1,000 ML 200 MEQ IV ×2 (02:19→09:36)
[2024-11-29 04:38] VITALS: BP 110/72; PULSE 82; RESP 16; TEMP 37.1; O2SAT 97
[2024-11-29] MEDS: Heparin Injection (Vial) 5,000 UNIT/ML VIAL 5000 UNIT SC ×2 (05:31→15:04)
[2024-11-29] MEDS: Psyllium 1 PACKET PO ×2 (05:32→15:04)
[2024-11-29 07:06] LABS: Absolute Lymphocyte Count 1.42 X10^3/uL (0.83-4.51); Absolute Neutrophil Count 7.9 X10^3/uL (2.0-7.7); Basophil# 0.04 X10^3/uL; Basophil% 0.4 % (0-1); Eosinophil# 0.11 X10^3/uL; Hemoglobin 12.4 g/dL (13.0-16.5); Lymphocyte # 1.42 X10^3/ul (0.83-4.51); Lymphocyte % 12.9 % (19-41); Mean Corp Hgb Conc 33.5 g/dL (32-36); Mean Corpuscular Hgb 30.6 pg (27.0-32.0); Mean Corpuscular Volume 91.4 fL (80-94); Mean Platelet Vol. 8.9 fl (6.2-12.0); Monocyte# 1.51 X10^3/uL; Monocyte% 13.7 % (0-10); NRBC Flagged by Analyzer 0 % (0-5); Neutrophil # 7.94 X10^3/uL (2.7-7.7); Neutrophil % 71.7 % (47-70); POSITIVE DIFFERENTIAL YES; Platelet Count 377 K/mm3 (150-450); RBC Distribution Width CV 14.5 % (11.6-14.6); RBC Distribution Width SD 48.4 fl (35.1-43.9); Red Blood Count 4.05 M/mm3 (4.6-6.2); White Blood Count 11.1 K/mm3 (4.4-11.0)
[2024-11-29 07:10] LABS: Differential Indicated SCAN CRITERIA MET
[2024-11-29 08:04] LABS: Magnesium 1.6 mg/dL (1.5-2.2); Phosphorus 2.1 mg/dL (2.7-4.5)
[2024-11-29 08:16] LABS: AST(SGOT) 17 U/L (<=37); Alanine Aminotransfer ALT/SGPT 18 U/L (<=46); Albumin, Serum 3.4 g/dL (3.5-5.0); Alkaline Phosphatase 91 U/L (40-129); Anion Gap 12 (5-15); BUN 36 mg/dL (4-19); BUN/Creat Ratio 19.4 RATIO (10-20); Calcium 8.9 mg/dL (7.6-11.0); Carbon Dioxide 26.2 mmol/L (22.0-29.0); Chloride 97 mmol/L (96-108); Creatinine, Serum 1.86 mg/dL (0.70-1.20); EST Glomerular Filtration Rate 43 (>60); Estimated Creatinine Clearance 50.99 ml/min (50-250); Globulin 3.5 g/dL (2.2-4.2); Glucose 129 mg/dL (70-99); Potassium 2.7 mmol/L (3.3-5.1); Protein, Total 6.9 g/dL (5.9-8.4); Sodium Level 135 mmol/L (133-145); Total Bilirubin 0.28 mg/dL (0.00-1.30)
--- NOTE | 2024-11-29 08:35 | DS.PCM_ITS ---
Providers Date of Admission: 11/27/24 Date of Discharge: 11/29/24 Primary Care Physician: Dr. Diandra Gonzales MD Reason For Visit: [place] Diagnosis Discharge Diagnosis (1) Acute kidney injury: Status: Acute Code(s): N17.9 - Acute kidney failure, unspecified (2) Metabolic acidosis: Status: Acute Code(s): E87.20 - Acidosis, unspecified (3) Hypokalemia: Status: Acute Code(s): E87.6 - Hypokalemia (4) Nausea, vomiting and diarrhea: Status: Acute Code(s): R11.2 - Nausea with vomiting, unspecified; R19.7 - Diarrhea, unspecified (5) Hypotension due to hypovolemia: Status: Acute Code(s): E86.1 - Hypovolemia Medications at Discharge Home Medications bupropion HCl 150 mg tablet,12 hr sustained-release 150 mg PO DAILY 05/04/24 fluvoxamine 150 mg capsule,extended release 24 hr 150 mg PO DAILY 05/04/24 ondansetron 8 mg disintegrating tablet 8 mg PO Q8H PRN nausea and vomiting #20 tabs 05/04/24 omeprazole 20 mg capsule,delayed release 20 mg PO DAILY 11/26/24 loperamide 2 mg capsule 2 mg PO Q12H PRN DIARRHEA #60 caps 11/29/24 potassium chloride 20 mEq tablet,extended release 20 meq PO DAILY #14 tabs 11/29/24 psyllium husk (aspartame) 3 gram oral powder packet (Daily Fiber (psyllium- aspartame)) 1 packet PO TID #54 ea 11/29/24 Hospital Course Operations None Summary of Care Provided Minutes Spent on Discharge: 38 Hospital Course: Mr. 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 He really not been feeling well for several weeks however. He been worse lately with nausea vomiting as well as high output in his ostomy. His family had norovirus. Vital signs on presentation showed a temperature of 36.7, heart rate 87, respiratory rate 15, initial blood pressure was 93/65 with repeat after 1 L IV fluids at 112/81, pulse ox was 94% on room air. CBC was unremarkable. Chemistry panel initially showed hyponatremia with a sodium of 129, serum bicarb of 9, anion gap was 15, BUN was 51 and peak creatinine was 3.0. It appears that his baseline creatinine runs between 1 and 1.3. Given his acidosis on his lab I obtained an ABG which showed a pH of 7.2 with a actual serum bicarb of 10, pCO2 of 25.7 and a pO2 of 91 on room air. He was placed on bicarb drip aggressive IV fluid hydration and treated with electrolyte supplementation for marked hypokalemia, hypomagnesemia, and hypophosphatemia. His renal function slowly improved to the point where at discharge it was 1.67. His bicarb is normalized and anion gap was normal. His electrolytes were overall better with normalized sodium magnesium, and phosphorus. His potassium was still low so we gave him 120 mg once on the day of discharge and placed him on 40 mill equivalents daily to twice daily x 14 days. Of asked him to get a follow-up BMP within the next week for reevaluation of his electrolytes and renal function. We did start him on Metamucil 3 times daily to bulk forming stool some. I did instruct him in as needed use of Imodium but we did discuss avoiding overuse for this to avoid constipation. He is to follow-up with his primary care physician and get a basic metabolic profile in the next 3 to 5 days as noted above. He was discharged home in stable condition on 11/29/2024. Discharge diagnoses: [place] on CKD stage IIIb Anion gap metabolic acidosis-resolved Hypokalemia Hypophosphatemia-resolved Hypomagnesemia-resolved Hyponatremia-resolved History of appendiceal rupture status post complete colectomy GERD Anxiety Depression Physical Exam Const alert, oriented x3, no apparent distress, average body habitus, no limitations, healthy appearing and well nourished Constitutional Narrative: Very pleasant, middle-aged, white male, sitting up in bed, watching television, appears comfortable General Appearance: cooperative, comfortable, well kempt and well developed Exam Limitations: no limitations HEENT normocephalic, head/scalp atraumatic, hearing grossly normal bilaterally and moist oral mucous membranes HEENT Narrative: Mallampati 2, no thrush Eyes EOMs intact bilaterally and conjunctivae normal Eyes Narrative: No scleral icterus Neck supple Neck Narrative: Trachea midline Resp normal respiratory effort, no retractions, no use of accessory muscles and clear to auscultation bilaterally Auscultation: Negative for rales, rhonchi or wheezes Cardio regular rate, regular rhythm, S1 normal heart sound, S2 normal heart sound, no murmurs, no rub, no gallops and no clicks GI normal to inspection, nondistended, normoactive bowel sounds, soft to palpation, non-tender and non-distended GI Narrative: Ostomy in place, output is watery but not voluminous, no abdominal tenderness present Extremity no clubbing, cyanosis or edema Extremity Narrative: Pedal pulses are 2+ Skin skin turgor normal and no jaundice Neuro oriented x3, moves all extremities and no focal motor deficits Speech: speech normal Psych affect normal Psych Narrative: Extremely pleasant, interacts appropriately Weight / BMI Weight Weight: 91.6 kg Body Mass Index (BMI) 26.7 ABG / Lab / Microbiology Data 11/29/24 06:18 11/29/24 12:35 Laboratory: Laboratory Results - last 24 hr 11/29/24 06:18: WBC 11.1 H, RBC 4.05 L, Hgb 12.4 L, Hct 37.0 L, MCV 91.4, MCH 30.6, MCHC 33.5, RDW Std Deviation 48.4 H, RDW Coeff of Dirk 14.5, Plt Count 377, MPV 8.9, Immature Gran % (Auto) 0.300, Neut % (Auto) 71.7 H, Lymph % (Auto) 12.9 L, [place] % (Auto) 13.7 H, Eos % (Auto) 1.0, Baso % (Auto) 0.4, Absolute Neuts (auto) 7.9 H, Absolute Lymphs (auto) 1.42, Nucleated RBC % 0, Diff Path Review January, Sodium 135, Potassium 2.7 L*, Chloride Direct 97, Carbon Dioxide 26.2, Anion Gap 12, BUN 36 H, Creatinine 1.86 H, Estim Creat Clear Calc 50.99, Est GFR (MDRD) Non-Af 43 L, BUN/Creatinine Ratio 19.4, Glucose 129 H, Calcium 8.9, P hosphorus 2.1 L, Magnesium 1.6, Total Bilirubin 0.28, AST 17, ALT 18, Alkaline Phosphatase 91, Total Protein 6.9, Albumin 3.4 L, Globulin 3.5, Albumin/Globulin Ratio 1.0, TSH 2.560 11/29/24 12:35: Sodium 137, Potassium 2.8 L, Chloride Direct 100, Carbon Dioxide 24.2, Anion Gap 13, BUN 33 H, Creatinine 1.67 H, Estim Creat Clear Calc 56.79, E st GFR (MDRD) Non-Af 49 L, BUN/Creatinine Ratio 19.6, Glucose 101 H, Calcium 8.7 D/C Instructions Discharge Diet: No restrictions Discharge Activity: Return to Normal Activity Return to work on: 11/30/24 DC O2, CPAP, BIPAP Needs Home O2 Discharge instructions: No Meaningful Use Info Meaningful Use Meaningful Use Diagnoses (Choose all that apply): None applicable Ischemic Stroke Statin Dosing Therapy Reference: STATIN DOSE THERAPY REFERENCE: * Patients > 75 years receive moderate or high dose statin therapy. * Patients 75 years or YOUNGER should receive HIGH intensity statin dose unless contraindicated. You will be required to document reason for non-treatment if statin daily dose does not meet guidelines. HIGH DOSE STATIN THERAPY DAILY Atorvastatin > than or = to 40 mg Rosuvastatin > than or = to 20 mg Amlodipine + Atorvastatin > than or = to 2.5/40 mg Ezetimibe + Simvastatin 10/80 mg Simvastatin 80mg Discharge Plan Admission Admit Date/Time: 11/27/24 15:11 Primary Reason for Your Visit: Nausea/vomiting/high output ostomy Attending Provider: Sara Quezada Primary Care Provider: Diandra Gonzales Consulting Providers: Ibrahima Doan Instructions Additional Instructions / Restrictions: 1. Basic Metabolic Profile in 1 week. 2. Only take the Imodium if your ostomy output is exceptionally high and you are starting to feel dehydrated--> I would avoid taking this on a regular basis to avoid constipation Discharge Orders/Prescriptions Prescriptions: New Daily Fiber (psyllium-aspart) 3 gram Powder In Packet 1 packet PO TID Qty: 54 0RF loperamide 2 mg Capsule 2 mg PO Q12H PRN (Reason: DIARRHEA) Qty: 60 0RF potassium chloride 20 mEq tablet extended release 20 meq PO DAILY Qty: 14 0RF Continued bupropion HCl 150 mg tablet sustained-release 12 hr 150 mg PO DAILY Patient Comments: [NO ORIGINAL SIG] fluvoxamine 150 mg capsule,extended release 24hr 150 mg PO DAILY Patient Comments: [NO ORIGINAL SIG] ondansetron 8 mg tablet,disintegrating 8 mg PO Q8H PRN (Reason: nausea and vomiting) Qty: 20 0RF omeprazole 20 mg capsule,delayed release(DR/EC) 20 mg PO DAILY Referrals / Follow Up: Diandra Gonzales MD [Primary Care Provider] - In 1 Week Disposition Disposition (needs filled in before D/C Order can be placed): Home, Self Care Charges/Coding Visit Charges Inpatient E&M: 63903 Disch Hosp >30min
[2024-11-29] MEDS: Lactated Ringers 1,000 ML 500 ML IV ×2 (08:49→11:08)
[2024-11-29] MEDS: Potassium Chloride Oral Tablet 20 MEQ 60 MEQ PO ×2 (08:49→11:08)
[2024-11-29] MEDS: buPROPion (SR) 150 MG Tablet.SA PO (08:54)
[2024-11-29 09:00] VITALS: BP 116/80; PULSE 70; RESP 18; TEMP 36.8; O2SAT 97
[2024-11-29] MEDS: Sodium Phosphate/Na Biphos 30 MMOL in 0.9% Normal Saline (250mL Bag) 250 ML 62.5 MMOL IV (09:49)
[2024-11-29] MEDS: Loperamide 2 MG Capsule PO (10:53)
[2024-11-29 14:49] LABS: BUN 33 mg/dL (4-19); BUN/Creat Ratio 19.6 RATIO (10-20); Calcium 8.7 mg/dL (7.6-11.0); Carbon Dioxide 24.2 mmol/L (22.0-29.0); Creatinine, Serum 1.67 mg/dL (0.70-1.20); EST Glomerular Filtration Rate 49 (>60); Estimated Creatinine Clearance 56.79 ml/min (50-250); Glucose 101 mg/dL (70-99)
[2024-11-29 14:54] LABS: Anion Gap 13 (5-15); Chloride 100 mmol/L (96-108); Potassium 2.8 mmol/L (3.3-5.1); Sodium Level 137 mmol/L (133-145)
[2024-11-29 15:09] VITALS: BP 115/75; PULSE 84; RESP 16; TEMP 37.2; O2SAT 95
[2024-11-29] MEDS: Potassium Chloride Oral Tablet 20 MEQ 80 MEQ PO (15:47)
[2024-12-02 13:53] LABS: Pathologist Review Reviewed
== END 2024-11-29 17:19 | disposition home or self-care (01) | DRG 683 ==
LOC: ED 18:27 → MS3 18:51
PROVIDERS: Emergency Provider Emergency Medicine; PCP Internal Medicine; Visit Provider Internal Medicine
DX: N17.9 Acute kidney failure, unspecified (principal); E87.1 Hypo-osmolality and hyponatremia; E87.21 Acute metabolic acidosis; E83.39 Other disorders of phosphorus metabolism; N18.32 Chronic kidney disease, stage 3b; F32.A Depression, unspecified; Z93.2 Ileostomy status; R19.7 Diarrhea, unspecified; E83.42 Hypomagnesemia; F41.9 Anxiety disorder, unspecified; K21.9 Gastro-esophageal reflux disease without esophagitis; E87.6 Hypokalemia; E86.1 Hypovolemia; E87.8 Other disorders of electrolyte and fluid balance, not elsewhere classified; I95.9 Hypotension, unspecified; R11.2 Nausea with vomiting, unspecified; N28.1 Cyst of kidney, acquired; Z79.01 Long term (current) use of anticoagulants; Z85.038 Personal history of other malignant neoplasm of large intestine; Z79.899 Other long term (current) drug therapy
CPT/HCPCS: 36415; 36600; 76770; 80048; 80053; 81001; 82570; 82803; 83735; 84100; 84300; 84443; 85025; 97802; 99285; A4216; J2405

== ENCOUNTER 2024-12-15 08:11 | Observation (INO) | payer BC, SELFPAY ==
[2024-12-15 08:11] VITALS: BP 119/76; PULSE 88; RESP 14; TEMP 36.6; O2SAT 98; BMI 26.9
--- NOTE | 2024-12-15 08:15 | EX.ED.DYSGE1 ---
HPI History of Present Illness Chief Complaint: General Illness Informant: patient Onset/Context/Timing Onset: Days Context: Gradual Onset Timing: Continuous Worsened by: Nothing Relieved by: Nothing Narrative Narrative: Patient presents with possible dehydration that has been getting worse over the past few days. Patient was recently admitted to the hospital for dehydration and acute kidney injury. Patient was feeling better and was discharged. Patient has been having increased output through his ileostomy. Patient has been following with his primary care physician who noted worsening of his renal function. Patient states he is drinking plenty of fluids including Gatorade, water, and liquid IV. Patient denies any pain. Patient denies any nausea or vomiting. [facility] Medical History Cancer of appendix Ileostomy present Acute appendicitis Home Medications ?Medication ?Instructions ?Recorded ?Last Taken ?Type bupropion HCl 150 mg tablet,12 hr 150 mg PO DAILY 05/04/24 12/15/24 History sustained-release fluvoxamine 150 mg 150 mg PO DAILY 05/04/24 12/15/24 History capsule,extended release 24 hr ondansetron 8 mg disintegrating 8 mg PO Q8H PRN nausea and 05/04/24 Unknown Rx tablet vomiting #20 tabs omeprazole 20 mg capsule,delayed 20 mg PO DAILY 11/26/24 12/15/24 History release loperamide 2 mg capsule 2 mg PO Q12H PRN DIARRHEA #60 caps 11/29/24 Unknown Rx psyllium husk (aspartame) 3 gram 1 packet PO TID #54 ea 11/29/24 12/15/24 Rx oral powder packet (Daily Fiber (psyllium-aspartame)) Allergy/AdvReac Type Severity Reaction Status Date / Time No Known Allergies Allergy Verified 11/26/24 14:44 Family History (Updated 11/26/24 @ 18:[address] Ibrahima Doan DO) Other VTE (venous thromboembolism) Surgical History S/P splenectomy H/O colectomy Social History household members: spouse housing: house Smoking Status: Never smoker ROS ROS ED Constitutional Constitutional ED: Denies chills or fever(s) Eyes Eyes: Denies blurry vision or change in vision ENT ENT ED: Denies rhinorrhea or sore throat Cardiovascular Cardiovascular: Denies chest pain or palpitations Respiratory/Chest Respiratory/Chest: Denies cough or dyspnea Gastrointestinal Gastrointestinal: Reports diarrhea; Denies abdominal pain, nausea or vomiting Genitourinary Genitourinary ED: Denies dysuria or hematuria Musculoskeletal Musculoskeletal: Denies back pain or neck pain Integumentary Denies abscess or rash Neurologic Neurologic: Denies headache(s) or weakness Allergic/Immunologic Allergic/Immunologic ED: Denies mouth swelling or urticaria EXAM Physical Exam Const Vital Signs: 12/15/24 08:11 12/15/24 08:29 12/15/24 09:48 Temperature 98 F 98.7 F Temperature Source Temporal Pulse Rate 88 59 L Respiratory Rate 14 16 Respiratory Effort Normal Respiratory Pattern Normal Blood Pressure 119/76 129/78 H Blood Pressure Mean 90 95 Pulse Ox 98 99 Oxygen Delivery Method Room Air Positive well nourished and well developed General Appearance ED: well developed and NAD HEENT Reports moist mucous membranes Neck supple and no JVD Resp normal respiratory effort and clear to auscultation bilaterally Cardio regular rate and regular rhythm GI non-tender and non-distended Auscultation: normoactive bowel sounds Palpation: soft Neuro oriented x3, CN's II-XII intact bilaterally and no sensory deficits noted Sensorium / Orientation: alert Psych mental status grossly normal MDM MDM MDM Narrative Medical decision making narrative: Differential diagnosis includes dehydration, electrolyte abnormality, infection, and acute kidney injury. CBC will be obtained to assess for leukocytosis and anemia. Basic metabolic profile will be obtained to assess for electrolyte abnormality and renal function. History & Record Review Additional record(s) reviewed:: Prior inpatient record, Prior ED visit and Prior labs Lab Data Attestation: I reviewed the patient's lab results. Lab results narrative: CBC was reviewed. There is a slight leukocytosis of 11.3. Hemoglobin was 12.7 and hematocrit was 38.9. Platelets were normal. Basic metabolic profile was reviewed. BUN was 41 and creatinine was 2.23. These are increased from previous results. Labs: Laboratory Results - last 24 hr 12/15/24 08:42 WBC 11.3 H RBC 4.08 L Hgb 12.7 L Hct 38.9 L MCV 95.3 H MCH 31.1 MCHC 32.6 RDW Std Deviation 52.6 H RDW Coeff of Dirk 15.2 H Plt Count 393 MPV 8.6 Immature Gran % (Auto) 0.400 Neut % (Auto) 79.6 H Lymph % (Auto) 7.6 L [place] % (Auto) 10.9 H Eos % (Auto) 1.2 Baso % (Auto) 0.3 Absolute Neuts (auto) 9.0 H Absolute Lymphs (auto) 0.86 Nucleated RBC % 0.2 Sodium 132 L Potassium 4.0 Chloride 107 Carbon Dioxide 10.4 L Anion Gap 14 BUN 41 H Creatinine 2.23 H Estim Creat Clear Calc 43.79 L Est GFR (MDRD) Non-Af 35 L BUN/Creatinine Ratio 18.2 Glucose 106 H Calcium 9.1 Management Discussion w/another healthcare provider: Hospitalist (Dr. Jc) Treatment and Re-Evaluation :: Patient was given IV fluids. Patient was advised of his findings. Because of the increase in BUN and creatinine, I recommended admission to the hospital. Case was discussed with the hospitalist. He will admit the patient for observation. Patient understood and was agreeable with the plan. All questions were answered. Discharge Plan Triage Chief Complaint: General Illness ED Provider: Ibrahima Camarena Dx/Rx/DC Orders Clinical Impression: Acute kidney injury, Dehydration Prescriptions: No Action bupropion HCl 150 mg tablet sustained-release 12 hr 150 mg PO DAILY Patient Comments: [NO ORIGINAL SIG] fluvoxamine 150 mg capsule,extended release 24hr 150 mg PO DAILY Patient Comments: [NO ORIGINAL SIG] ondansetron 8 mg tablet,disintegrating 8 mg PO Q8H PRN (Reason: nausea and vomiting) Qty: 20 0RF omeprazole 20 mg capsule,delayed release(DR/EC) 20 mg PO DAILY Daily Fiber (psyllium-aspart) 3 gram Powder In Packet 1 packet PO TID Qty: 54 0RF loperamide 2 mg Capsule 2 mg PO Q12H PRN (Reason: DIARRHEA) Qty: 60 0RF Primary Care Provider: Diandra Gonzales Referrals: Diandra Gonzales MD [Primary Care Provider] - Print Language: Indonesian Disposition Disposition: [facility]
[2024-12-15] MEDS: 0.9% Normal Saline (1000mL) 1,000 ML 1000 ML IV ×2 (08:40→09:44)
[2024-12-15 08:49] LABS: Absolute Lymphocyte Count 0.86 X10^3/uL (0.83-4.51); Basophil# 0.03 X10^3/uL; Basophil% 0.3 % (0-1); Eosinophil# 0.14 X10^3/uL; Eosinophils% 1.2 % (0-5); Hematocrit 38.9 % (40-54); Hemoglobin 12.7 g/dL (13.0-16.5); Lymphocyte # 0.86 X10^3/ul (0.83-4.51); Lymphocyte % 7.6 % (19-41); Mean Corp Hgb Conc 32.6 g/dL (32-36); Mean Corpuscular Hgb 31.1 pg (27.0-32.0); Mean Corpuscular Volume 95.3 fL (80-94); Mean Platelet Vol. 8.6 fl (6.2-12.0); Monocyte# 1.23 X10^3/uL; Monocyte% 10.9 % (0-10); NRBC Flagged by Analyzer 0.2 % (0-5); Neutrophil # 8.95 X10^3/uL (2.7-7.7); Neutrophil % 79.6 % (47-70); Platelet Count 393 K/mm3 (150-450); RBC Distribution Width CV 15.2 % (11.6-14.6); RBC Distribution Width SD 52.6 fl (35.1-43.9); Red Blood Count 4.08 M/mm3 (4.6-6.2); White Blood Count 11.3 K/mm3 (4.4-11.0)
[2024-12-15 09:22] LABS: Anion Gap 14 (5-15); BUN 41 mg/dL (4-19); BUN/Creat Ratio 18.2 RATIO (10-20); Calcium,Total 9.1 mg/dL (7.6-11.0); Carbon Dioxide 10.4 mmol/L (21.0-32.0); Chloride 107 mmol/L (98-108); Creatinine, Serum 2.23 mg/dL (0.70-1.20); EST Glomerular Filtration Rate 35 (>60); Estimated Creatinine Clearance 43.79 ml/min (50-250); Glucose 106 mg/dL (70-99); Sodium Level 132 mmol/L (133-145)
[2024-12-15 09:48] VITALS: BP 129/78; PULSE 59; RESP 16; TEMP 37.1; O2SAT 99
[2024-12-15 10:11] VITALS: BP 126/76; PULSE 89; RESP 14; O2SAT 98
[2024-12-15 11:22] VITALS: BMI 26.9
[2024-12-15] MEDS: 0.9% Saline Lock 10 ML Syringe IV (11:53)
[2024-12-15] MEDS: 0.9% Normal Saline (1000mL) 1,000 ML 175 ML IV ×3 (11:53→23:17)
[2024-12-15 11:54] VITALS: BP 112/76; PULSE 68; RESP 18; TEMP 36.7; O2SAT 100
[2024-12-15] MEDS: Dicyclomine 10 MG Capsule 20 MG PO ×2 (12:47→17:42)
--- NOTE | 2024-12-15 16:33 | PCM.HP.STD ---
HPI - General General Date of Admission: 12/15/24 Date of Service: 12/15/24 Chief Complaint: Need for IV fluids HPI Lizette BURROWS, is a 54 M who presents to the emergency room at [facility] for evaluation due to possible dehydration from high output from his ileostomy. He was told to come to the emergency room for evaluation by his PCP. 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 He was told the cancer is in remission currently. Ileostomy was placed in 2021. Labs were obtained, patient's white blood cell count was slightly elevated at 11.3, hemoglobin was 12.7 sodium was 132, BUN was 41 and creatinine was 2.23. Patient's glucose was 106. Patient was given IV fluids in the emergency room, he will be placed in observation status on MedSurg 3 and be given IV fluids, labs will be rechecked. Patient will be placed on Bentyl and Imodium to see if this will decrease his ileostomy output. [facility] Medical History Cancer of appendix Ileostomy present Acute appendicitis Home Medications ?Medication ?Instructions ?Recorded ?Last Taken ?Type bupropion HCl 150 mg tablet,12 hr 150 mg PO DAILY 05/04/24 12/15/24 History sustained-release fluvoxamine 150 mg 150 mg PO DAILY 05/04/24 12/15/24 History capsule,extended release 24 hr ondansetron 8 mg disintegrating 8 mg PO Q8H PRN nausea and 05/04/24 Unknown Rx tablet vomiting #20 tabs omeprazole 20 mg capsule,delayed 20 mg PO DAILY 11/26/24 12/15/24 History release loperamide 2 mg capsule 2 mg PO Q12H PRN DIARRHEA #60 caps 11/29/24 Unknown Rx psyllium husk (aspartame) 3 gram 1 packet PO TID #54 ea 11/29/24 12/15/24 Rx oral powder packet (Daily Fiber (psyllium-aspartame)) Allergy/AdvReac Type Severity Reaction Status Date / Time No Known Allergies Allergy Verified 11/26/24 14:44 Family History (Updated 11/26/24 @ 18:[address] Ibrahima Doan DO) Other VTE (venous thromboembolism) Surgical History S/P splenectomy H/O colectomy Social History household members: spouse housing: house Smoking Status: Never smoker ROS Constitutional Constitutional: Denies anorexia, change in weight, fatigue, fever(s), malaise, night sweats or weakness Eyes Eyes: Denies blurry vision, change in vision, discharge from eye(s) or eye pain Cardiovascular Cardiovascular: Denies chest pain, claudication, edema or palpitations Respiratory/Chest Respiratory/Chest: Denies cough, hemoptysis, shortness of breath at rest or shortness of breath with exertion Gastrointestinal Gastrointestinal: Denies abdominal pain, constipation, diarrhea, hematemesis, hematochezia, melena, nausea or vomiting Genitourinary Genitourinary: Reports other Details: Increased output from ileostomy ; Denies dysuria, hematuria, urinary frequency, urinary hesitancy, urinary incontinence or urinary urgency Musculoskeletal Musculoskeletal: Denies back pain, joint pain, joint stiffness, joint swelling, myalgias or neck pain Neurologic Neurologic: Denies abnormal gait, abnormal speech, dizziness, focal weakness, headache(s), loss of vision, numbness, other visual disturbances, paresthesias, syncope or tingling Psychiatric Psychiatric: Denies anxiety, cognitive impairment, depression, irritability, mood swings or suicidal ideation Endocrine Endocrinology: Denies change in body appearance, cold intolerance, excessive sweating, heat intolerance, polydipsia or polyuria Hematologic/Lymphatic Hematologic/Lymphatic: Denies none, anemia, easy bleeding, easy bruising or lymphadenopathy Allergic/Immunologic Allergic/Immunologic: Denies rhinitis, urticaria, eczemia or asthma Vital Signs Vital Signs Vital Signs: 12/15/24 08:11 12/15/24 08:29 12/15/24 09:48 Temperature 98 F 98.7 F Temperature Source Temporal Pulse Rate 88 59 L Respiratory Rate 14 16 Respiratory Effort Normal Respiratory Pattern Normal Blood Pressure 119/76 129/78 H Blood Pressure Mean 90 95 Blood Pressure Source Blood Pressure Position Blood Pressure Location Pulse Ox 98 99 Oxygen Delivery Method Room Air 12/15/24 10:11 12/15/24 11:54 12/15/24 14:00 Temperature 98.0 F Temperature Source Oral Pulse Rate 89 68 Respiratory Rate 14 18 Respiratory Effort Respiratory Pattern Blood Pressure 126/76 H 112/76 Blood Pressure Mean 92 88 Blood Pressure Source Monitor Blood Pressure Position Semi-Fowlers Blood Pressure Location Right Arm Pulse Ox 98 100 Oxygen Delivery Method Room Air Room Air CPAP Weight Weight: 92.5 kg Body Mass Index (BMI) 26.9 Physical Exam Const alert, oriented x3 and no apparent distress General Appearance: cooperative, well kempt and well developed Orientation / Consciousness: awake, oriented to person, oriented to place and oriented to time HEENT normocephalic HEENT Narrative: Mucous membranes appear dry Eyes PERRL, EOMs intact bilaterally and conjunctivae normal Neck supple, no JVD, thyroid normal and no carotid bruits General: trachea midline Resp normal respiratory effort, no retractions, no use of accessory muscles and clear to auscultation bilaterally Auscultation: Negative for rales, rhonchi or wheezes Cardio regular rate, regular rhythm, S1 normal heart sound, S2 normal heart sound, no murmurs, no rub and no gallops GI normal to inspection, nondistended, normoactive bowel sounds, soft to palpation, non-tender and non-distended GI Narrative: Ileostomy is present over the right lower abdominal quadrant Extremity no clubbing, cyanosis or edema Skin no rashes or lesions noted General Skin Exam: no breakdown Neuro oriented x3, CN's II-XII intact bilaterally, moves all extremities, no focal motor deficits and no sensory deficits noted Sensorium / Orientation: awake and alert Speech: speech normal Psych affect normal Results Lab / Micro Data 12/15/24 08:42 12/15/24 08:42 Labs: Laboratory Results - last 24 hr 12/15/24 08:42: WBC 11.3 H, RBC 4.08 L, Hgb 12.7 L, Hct 38.9 L, MCV 95.3 H, MCH 31.1, MCHC 32.6, RDW Std Deviation 52.6 H, RDW Coeff of Dirk 15.2 H, Plt Count 393, MPV 8.6, Immature Gran % (Auto) 0.400, Neut % (Auto) 79.6 H, Lymph % (Auto) 7.6 L, [place] % (Auto) 10.9 H, Eos % (Auto) 1.2, Baso % (Auto) 0.3, Absolute Neuts (auto) 9.0 H, Absolute Lymphs (auto) 0.86, Nucleated RBC % 0.2, Sodium 132 L, Potassium 4.0, Chloride 107, Carbon Dioxide 10.4 L, Anion Gap 14, BUN 41 H, Creatinine 2.23 H, Estim Creat Clear Calc 43.79 L, Est GFR (MDRD) Non-Af 35 L, BUN/Creatinine Ratio 18.2, Glucose 106 H, Calcium 9.1 Assessment & Plan Assessment/Plan (1) Acute kidney injury: PLAN: Plan 1. Acute kidney injury-secondary to excessive ileostomy output-patient will be placed into observation status on MedSurg 3, he will be given IV fluids, labs will be monitored. Patient will be placed on Protonix 40 mg twice daily #2 high output ileostomy-patient will be given Imodium and Bentyl #3 hyponatremia-not clinically significant Total clinical time spent by myself addressing the patient's medical issues, reviewing all of his data, and collaborating with patient's care team: 70 minutes Charges/Coding Visit Charges Inpatient E&M: 63475 Init Hosp L3
[2024-12-15 17:00] VITALS: BP 102/74; PULSE 72; RESP 18; TEMP 36.8; O2SAT 100
[2024-12-15 22:28] VITALS: BP 107/64; PULSE 72; RESP 16; TEMP 36.7; O2SAT 98
[2024-12-15] MEDS: Pantoprazole Sodium 40 MG Tablet PO (22:32)
--- NOTE | 2024-12-16 00:04 | PN.HOSP_ITS ---
Hospitalist Note Patient with high ostomy output, noted [place] likely caused by this. Will obtain cdiff and enteric to be cautious per discussion with staffing program manager.
[2024-12-16 02:47] VITALS: BP 106/67; PULSE 69; RESP 18; TEMP 36.6; O2SAT 97
[2024-12-16] MEDS: 0.9% Normal Saline (1000mL) 1,000 ML 175 ML IV (04:55)
[2024-12-16] MEDS: Dicyclomine 10 MG Capsule 20 MG PO ×2 (06:53→10:49)
[2024-12-16 08:05] VITALS: BP 103/72; PULSE 67; RESP 14; TEMP 36.5; O2SAT 99
[2024-12-16 08:25] LABS: Anion Gap 12 (5-15); BUN 32 mg/dL (4-19); BUN/Creat Ratio 17.7 RATIO (10-20); Calcium,Total 8.5 mg/dL (7.6-11.0); Carbon Dioxide 10.2 mmol/L (21.0-32.0); Chloride 113 mmol/L (98-108); Creatinine, Serum 1.83 mg/dL (0.70-1.20); EST Glomerular Filtration Rate 44 (>60); Estimated Creatinine Clearance 53.36 ml/min (50-250); Glucose 97 mg/dL (70-99); Potassium 3.3 mmol/L (3.3-5.1); Sodium Level 135 mmol/L (133-145)
[2024-12-16] MEDS: FLUVOXAMINE MALEATE 150 MG PO (10:47)
[2024-12-16] MEDS: Pantoprazole Sodium 40 MG Tablet PO (10:49)
[2024-12-16] MEDS: buPROPion (SR) 150 MG Tablet.SA PO (10:49)
--- NOTE | 2024-12-16 11:18 | DCINST_ITS ---
Discharge Instructions Diet Discharge Diet: No restrictions DC O2, CPAP, BIPAP needs Home O2 Discharge instructions: No Dressing / Incision Discharge Activity: Return to Normal Activity Weight Bearing Status: Full weight bearing Follow Up Care Test Results: Test results from this visit will be discussed in further detail at your follow- up appointment, if applicable. Discharge Plan Admission Admit Date/Time: 12/15/24 10:18 Primary Reason for Your Visit: Acute kidney injury Attending Provider: Mk Jc Primary Care Provider: Diandra Gonzales Discharge Orders/Prescriptions Prescriptions: New diphenoxylate-atropine [Lomotil] 2.5-0.025 mg tablet 2 tab PO Q6H PRN (Reason: diarrhea) Qty: 30 0RF dicyclomine 20 mg tablet 20 mg PO .QID PRN (Reason: diarrhea) Qty: 20 0RF Continued bupropion HCl 150 mg tablet sustained-release 12 hr 150 mg PO DAILY Patient Comments: [NO ORIGINAL SIG] fluvoxamine 150 mg capsule,extended release 24hr 150 mg PO DAILY Patient Comments: [NO ORIGINAL SIG] ondansetron 8 mg tablet,disintegrating 8 mg PO Q8H PRN (Reason: nausea and vomiting) Qty: 20 0RF omeprazole 20 mg capsule,delayed release(DR/EC) 20 mg PO DAILY Daily Fiber (psyllium-aspart) 3 gram Powder In Packet 1 packet PO TID Qty: 54 0RF Discontinued loperamide 2 mg Capsule 2 mg PO Q12H PRN (Reason: DIARRHEA) Qty: 60 0RF Referrals / Follow Up: Diandra Gonzales MD [Primary Care Provider] - See Referral Note (as scheduled) Disposition Disposition (needs filled in before D/C Order can be placed): Home, Self Care
--- NOTE | 2024-12-16 11:28 | DS.PCM_ITS ---
Providers Date of Admission: 12/15/24 Date of Discharge: 12/16/24 Primary Care Physician: Dr. Diandra Gonzales MD Reason For Visit: ACUTE KIDNEY INJURY Diagnosis Discharge Diagnosis (1) Acute kidney injury: Status: Acute Code(s): N17.9 - Acute kidney failure, unspecified Plan 1. Acute kidney injury-secondary to excessive ileostomy output-patient will be placed into observation status on MedSurg 3, he will be given IV fluids, labs will be monitored. Patient will be placed on Protonix 40 mg twice daily #2 high output ileostomy-patient will be given Imodium and Bentyl #3 hyponatremia-not clinically significant Total clinical time spent by myself addressing the patient's medical issues, reviewing all of his data, and collaborating with patient's care team: 70 minutes Medications at Discharge Home Medications bupropion HCl 150 mg tablet,12 hr sustained-release 150 mg PO DAILY 05/04/24 fluvoxamine 150 mg capsule,extended release 24 hr 150 mg PO DAILY 05/04/24 ondansetron 8 mg disintegrating tablet 8 mg PO Q8H PRN nausea and vomiting #20 tabs 05/04/24 omeprazole 20 mg capsule,delayed release 20 mg PO DAILY 11/26/24 psyllium husk (aspartame) 3 gram oral powder packet (Daily Fiber (psyllium- aspartame)) 1 packet PO TID #54 ea 11/29/24 dicyclomine 20 mg tablet 20 mg PO .QID PRN diarrhea #20 tabs 12/16/24 diphenoxylate-atropine 2.5 mg-0.025 mg tablet (Lomotil) 2 tab PO Q6H PRN diarrhea #30 tabs 12/16/24 Hospital Course Operations None Procedures None Summary of Care Provided Minutes Spent on Discharge: 31 Hospital Course: This 54-year-old white male was seen in the emergency room at [facility] for evaluation due to possible dehydration from high output from his ileostomy. He was told to come to the emergency room for evaluation by his PCP. Labs were obtained, patient's white blood cell count was slightly elevated at 11.3, hemoglobin was 12.7 and sodium was 132. BUN was 41 and creatinine was 2.23. Patient was given IV fluids in the emergency room, he was placed in observation status on MedSurg 3 and given IV fluids and Bentyl and Imodium. Patient was evaluated on 12/16/2024, labs were improved and the patient appeared to feel better. 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 On 12/16/2024, patient was seen and examined: On examination he appeared in good health and spirits. Vital signs as documented. Skin warm and dry and without overt rashes. Neck without JVD, neck was supple, trachea midline, thyroid was normal. Lungs clear bilaterally, normal air movement was noted. Heart exam notable for regular rhythm, normal sounds and absence of murmurs, rubs or gallops. Abdomen unremarkable and without evidence of organomegaly, masses, or abdominal aortic enlargement. Bowel sounds are present, abdomen is not distended. Ileostomy is present. Extremities nonedematous, no cyanosis was noted, no clubbing was noted. Neuro: Cranial nerves II through XII are grossly intact, no focal motor deficits were noted, sensation to light touch and pinprick intact, motor exam 5/5 throughout. Psych: Patient is alert and oriented x3, he does not appear anxious or depressed, he does not appear agitated. Patient was discharged home in stable condition on 12/16/2024 Weight / BMI Weight Weight: 92.5 kg Body Mass Index (BMI) 26.9 ABG / Lab / Microbiology Data 12/15/24 08:42 12/16/24 06:37 Laboratory: Laboratory Results - last 24 hr 12/16/24 06:37: Sodium 135, Potassium 3.3, Chloride 113 H, Carbon Dioxide 10.2 L , Anion Gap 12, BUN 32 H, Creatinine 1.83 H, Estim Creat Clear Calc 53.36, Est GFR (MDRD) Non-Af 44 L, BUN/Creatinine Ratio 17.7, Glucose 97, Calcium 8.5 Microbiology: Microbiology 12/16/24 02:40 Stool Enteric Bacteriology - Final 12/16/24 02:40 Stool Clostridioides difficile (PCR) - Final D/C Instructions Discharge Diet: No restrictions Weight Bearing Status: Full weight bearing DC O2, CPAP, BIPAP Needs Home O2 Discharge instructions: No Meaningful Use Info Meaningful Use Meaningful Use Diagnoses (Choose all that apply): None applicable Ischemic Stroke Statin Dosing Therapy Reference: STATIN DOSE THERAPY REFERENCE: * Patients > 75 years receive moderate or high dose statin therapy. * Patients 75 years or YOUNGER should receive HIGH intensity statin dose unless contraindicated. You will be required to document reason for non-treatment if statin daily dose does not meet guidelines. HIGH DOSE STATIN THERAPY DAILY Atorvastatin > than or = to 40 mg Rosuvastatin > than or = to 20 mg Amlodipine + Atorvastatin > than or = to 2.5/40 mg Ezetimibe + Simvastatin 10/80 mg Simvastatin 80mg Discharge Plan Admission Admit Date/Time: 12/15/24 10:18 Primary Reason for Your Visit: Acute kidney injury Attending Provider: Mk Jc Primary Care Provider: Diandra Gonzales Discharge Orders/Prescriptions Prescriptions: New diphenoxylate-atropine [Lomotil] 2.5-0.025 mg tablet 2 tab PO Q6H PRN (Reason: diarrhea) Qty: 30 0RF dicyclomine 20 mg tablet 20 mg PO .QID PRN (Reason: diarrhea) Qty: 20 0RF Continued bupropion HCl 150 mg tablet sustained-release 12 hr 150 mg PO DAILY Patient Comments: [NO ORIGINAL SIG] fluvoxamine 150 mg capsule,extended release 24hr 150 mg PO DAILY Patient Comments: [NO ORIGINAL SIG] ondansetron 8 mg tablet,disintegrating 8 mg PO Q8H PRN (Reason: nausea and vomiting) Qty: 20 0RF omeprazole 20 mg capsule,delayed release(DR/EC) 20 mg PO DAILY Daily Fiber (psyllium-aspart) 3 gram Powder In Packet 1 packet PO TID Qty: 54 0RF Discontinued loperamide 2 mg Capsule 2 mg PO Q12H PRN (Reason: DIARRHEA) Qty: 60 0RF Referrals / Follow Up: Diandra Gonzales MD [Primary Care Provider] - See Referral Note (as scheduled) Disposition Disposition (needs filled in before D/C Order can be placed): Home, Self Care Charges/Coding Visit Charges Inpatient E&M: 29778 Disch Hosp >30min
--- NOTE | 2024-12-16 11:39 | CASEMGMT ---
Pt dc in. 6 cl=24. Pt indep with ostomy. No dc needs.
[2024-12-16 13:06] VITALS: BP 104/77; PULSE 80; RESP 16; RESP 18; TEMP 36.8; O2SAT 100
--- NOTE | 2024-12-16 13:28 | PHA.DC_ITS ---
Pharmacy [place] Med Reconciliation Pharmacy Service has performed discharge medication reconciliation for this patient. Medication education papers prepared, patient discharged when counseling was attempted. Medications reviewed. The patient's discharge medication list was reviewed for discrepancies and discrepancies were resolved. Medications at Discharge Home Medications bupropion HCl 150 mg tablet,12 hr sustained-release 150 mg PO DAILY 05/04/24 fluvoxamine 150 mg capsule,extended release 24 hr 150 mg PO DAILY 05/04/24 ondansetron 8 mg disintegrating tablet 8 mg PO Q8H PRN nausea and vomiting #20 tabs 05/04/24 omeprazole 20 mg capsule,delayed release 20 mg PO DAILY 11/26/24 psyllium husk (aspartame) 3 gram oral powder packet (Daily Fiber (psyllium- aspartame)) 1 packet PO TID #54 ea 11/29/24 dicyclomine 20 mg tablet 20 mg PO .QID PRN diarrhea #20 tabs 12/16/24 diphenoxylate-atropine 2.5 mg-0.025 mg tablet (Lomotil) 2 tab PO Q6H PRN diarrhea #30 tabs 12/16/24
--- NOTE | 2024-12-16 16:07 | NURSING ---
All documentation by clinical nursing coordinator Vi Rajan reviewed by nursing techn Aishwarya Arnold BSN, RN.
== END 2024-12-16 13:23 | disposition home or self-care (01) ==
LOC: ED 10:17 → MS3 10:35
PROVIDERS: Admitting Provider Internal Medicine; Emergency Provider Emergency Medicine; PCP Internal Medicine; Visit Provider Internal Medicine
DX: N17.9 Acute kidney failure, unspecified (principal); Z93.2 Ileostomy status; C18.1 Malignant neoplasm of appendix; E86.0 Dehydration; Z79.899 Other long term (current) drug therapy
CPT/HCPCS: 36415; 80048; 85025; 87493; 87506; 96360; 96361; 99221; 99285; A4216; G0378

== ENCOUNTER 2025-01-15 19:26 | Emergency (ER) | payer BC, SELFPAY ==
[2025-01-15 19:26] VITALS: BP 117/78; PULSE 95; RESP 18; TEMP 36.8; O2SAT 98; BMI 26.0
--- NOTE | 2025-01-15 20:43 | EX.ED.DYSGE1 ---
HPI History of Present Illness Chief Complaint: General Illness Narrative Narrative: Chief complaint and HPI: Dehydration/increased ileostomy output. 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 Patient states that he has been having increased ileostomy output since October. He got a hold of his surgeon Dr. Buenrostro at [facility]. He wanted the patient to present to the emergency department for some fluids and then follow-up in his office outpatient. Patient denies any fever, chills, shortness of breath, chest pain, nausea, vomiting, dysuria, abdominal pain. Review of systems: See HPI Medications: As listed on the chart Allergies: As listed on the chart PFSH: Per chart Vital signs: As listed on the chart. Reviewed. Physical exam: Gen: A&O x3, NAD Head: Normocephalic, atraumatic Eyes: No sclera icterus, conjunctiva clear ENT: Dry mucous membranes Neck: Trachea midline, No JVD CV: RRR, no murmurs, no peripheral edema Resp: Lungs CTA BL, no w/r/c GI: Abd soft, non-distended, non-tender, no r/r/g, + ileostomy Musc: Full ROM, no deformity Skin: Warm, dry Neuro: Alert, oriented, grossly intact, sensation intact Psych: Cooperative, appropriate mood and affect [facility] Medical History Cancer of appendix Ileostomy present Acute appendicitis Home Medications ?Medication ?Instructions ?Recorded ?Last Taken ?Type bupropion HCl 150 mg tablet,12 hr 150 mg PO DAILY 05/04/24 12/15/24 History sustained-release fluvoxamine 150 mg 150 mg PO DAILY 05/04/24 12/15/24 History capsule,extended release 24 hr ondansetron 8 mg disintegrating 8 mg PO Q8H PRN nausea and 05/04/24 Unknown Rx tablet vomiting #20 tabs omeprazole 20 mg capsule,delayed 20 mg PO DAILY 11/26/24 12/15/24 History release psyllium husk (aspartame) 3 gram 1 packet PO TID #54 ea 11/29/24 12/15/24 Rx oral powder packet (Daily Fiber (psyllium-aspartame)) dicyclomine 20 mg tablet 20 mg PO .QID PRN diarrhea #20 tabs 12/16/24 Unknown Rx diphenoxylate-atropine 2.5 2 tab PO Q6H PRN diarrhea #30 tabs 12/16/24 Unknown Rx mg-0.025 mg tablet (Lomotil) Allergy/AdvReac Type Severity Reaction Status Date / Time No Known Allergies Allergy Verified 01/15/25 19:27 Family History (Updated 11/26/24 @ 18:[address] Ibrahima Doan DO) Other VTE (venous thromboembolism) Surgical History S/P splenectomy H/O colectomy Social History household members: spouse housing: house Smoking Status: Never smoker EXAM Physical Exam Const Vital Signs: 01/15/25 19:26 01/15/25 20:54 01/15/25 21:04 Temperature 98.2 F Temperature Source Oral Pulse Rate 95 81 Respiratory Rate 18 18 Respiratory Effort Normal Non-Labored Respiratory Pattern Normal Blood Pressure 117/78 118/81 H Blood Pressure Mean 91 93 Pulse Ox 98 97 Oxygen Delivery Method Room Air Room Air MDM MDM MDM Narrative Medical decision making narrative: 54-year-old male with 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 Patient states that he has been having increased ileostomy output since October. He got a hold of his surgeon Dr. Buenrostro at [facility]. He wanted the patient to present to the emergency department for some fluids and then follow-up in his office outpatient. Patient denies any infectious type symptoms or abdominal pain. He is clinically dehydrated on exam. Differential diagnosis includes but is not limited to dehydration, [place], electrolyte abnormality. 2 L NS bolus ordered with CBC and BMP. I do not think any imaging or further workup is needed at this time. CBC shows leukocytosis of 13.7. Patient has baseline anemia at 12. BMP shows dehydration with hyponatremia 128, [place] with creatinine of 3.02. On chart review, patient's baseline is around 2. His bicarb is 6.5. Will repeat BMP to make sure if this is accurate. Repeat BMP again shows hyponatremia however improved at 130. Bicarb slightly improved at 7.1. Creatinine slightly improved at 2.93. Patient will warrant admission for continued fluid hydration. He was updated of all the results and the plan. He confirmed understanding. Patient discussed with the hospitalist service who accepted admission. Shortly after patient being accepted he states that he would like to discharge home. He states that he was only supposed to receive fluids. He states that he is following up with his surgeon tomorrow to get further treatment. Although I do understand this was not the original plan given patient's laboratory workup, I do not believe that it is safe for him to discharge home. I feel that he needs to continue to be monitored and treated with hydration. The patient has chosen to leave AGAINST MEDICAL ADVICE. I personally explained to him that she is in to do so may result in permanent bodily harm or . I discussed at length that without further evaluation or monitoring there may be unforeseen circumstances and deterioration causing early body harm or because of his choice. He is alert and oriented to make his own decisions. He states that he is aware of the serious risks as explained, but continues to want to leave. Considering his decision to leave AGAINST MEDICAL ADVICE, he was told to follow-up with his surgeon. He has arranged follow-up for tomorrow. He was advised that he should return to the ED immediately if he changes his mind at any time or his condition begins to worsen or change. Impression: 1. Dehydration with [place]/renal insufficiency 2. Hyponatremia 3. History of ileostomy with increased output 4. Left AGAINST MEDICAL ADVICE Lab Data Labs: Laboratory Results - last 24 hr 01/15/25 01/15/25 20:42 22:09 WBC 13.7 H RBC 3.76 L Hgb 12.0 L Hct 35.2 L MCV 93.6 MCH 31.9 MCHC 34.1 RDW Std Deviation 54.4 H RDW Coeff of Dirk 15.9 H Plt Count 344 MPV 8.8 Immature Gran % (Auto) 0.400 Neut % (Auto) 84.7 H Lymph % (Auto) 4.9 L [place] % (Auto) 9.5 Eos % (Auto) 0.3 Baso % (Auto) 0.2 Absolute Neuts (auto) 11.6 H Absolute Lymphs (auto) 0.67 L Nucleated RBC % 0.1 Sodium 128 L Potassium 3.7 Chloride 106 Carbon Dioxide 6.5 L* Cancelled Anion Gap 16 H BUN 48 H Creatinine 3.02 H Estim Creat Clear Calc 32.34 L Est GFR (MDRD) Non-Af 24 L BUN/Creatinine Ratio 15.8 Glucose 115 H Calcium 9.0 Discharge Plan Triage Chief Complaint: General Illness ED Provider: Iker Richards Dx/Rx/DC Orders Prescriptions: No Action bupropion HCl 150 mg tablet sustained-release 12 hr 150 mg PO DAILY Patient Comments: [NO ORIGINAL SIG] fluvoxamine 150 mg capsule,extended release 24hr 150 mg PO DAILY Patient Comments: [NO ORIGINAL SIG] ondansetron 8 mg tablet,disintegrating 8 mg PO Q8H PRN (Reason: nausea and vomiting) Qty: 20 0RF omeprazole 20 mg capsule,delayed release(DR/EC) 20 mg PO DAILY Daily Fiber (psyllium-aspart) 3 gram Powder In Packet 1 packet PO TID Qty: 54 0RF diphenoxylate-atropine [Lomotil] 2.5-0.025 mg tablet 2 tab PO Q6H PRN (Reason: diarrhea) Qty: 30 0RF dicyclomine 20 mg tablet 20 mg PO .QID PRN (Reason: diarrhea) Qty: 20 0RF Primary Care Provider: Diandra Gonzales Referrals: Diandra Gonzales MD [Primary Care Provider] - Print Language: Afghan
[2025-01-15 20:49] LABS: Absolute Lymphocyte Count 0.67 X10^3/uL (0.83-4.51); Absolute Neutrophil Count 11.6 X10^3/uL (2.0-7.7); Basophil# 0.03 X10^3/uL; Basophil% 0.2 % (0-1); Eosinophil# 0.04 X10^3/uL; Eosinophils% 0.3 % (0-5); Hematocrit 35.2 % (40-54); Lymphocyte # 0.67 X10^3/ul (0.83-4.51); Lymphocyte % 4.9 % (19-41); Mean Corp Hgb Conc 34.1 g/dL (32-36); Mean Corpuscular Hgb 31.9 pg (27.0-32.0); Mean Corpuscular Volume 93.6 fL (80-94); Mean Platelet Vol. 8.8 fl (6.2-12.0); Monocyte% 9.5 % (0-10); NRBC Flagged by Analyzer 0.1 % (0-5); Neutrophil # 11.63 X10^3/uL (2.7-7.7); Neutrophil % 84.7 % (47-70); Platelet Count 344 K/mm3 (150-450); RBC Distribution Width CV 15.9 % (11.6-14.6); RBC Distribution Width SD 54.4 fl (35.1-43.9); Red Blood Count 3.76 M/mm3 (4.6-6.2); White Blood Count 13.7 K/mm3 (4.4-11.0)
[2025-01-15] MEDS: 0.9% Normal Saline (1000mL) 1,000 ML 1000 ML IV ×2 (20:49→22:06)
[2025-01-15 21:04] VITALS: BP 118/81; PULSE 81; RESP 18; O2SAT 97
[2025-01-15 22:00] LABS: Anion Gap 16 (5-15); BUN 48 mg/dL (4-19); BUN/Creat Ratio 15.8 RATIO (10-20); Carbon Dioxide 6.5 mmol/L (21.0-32.0); Chloride 106 mmol/L (98-108); Creatinine, Serum 3.02 mg/dL (0.70-1.20); EST Glomerular Filtration Rate 24 (>60); Estimated Creatinine Clearance 32.34 ml/min (50-250); Glucose 115 mg/dL (70-99); Potassium 3.7 mmol/L (3.3-5.1); Sodium Level 128 mmol/L (133-145)
[2025-01-15 23:00] VITALS: BP 107/70; PULSE 80; RESP 18; O2SAT 97
[2025-01-15 23:04] LABS: Anion Gap 14 (5-15); BUN 46 mg/dL (4-19); BUN/Creat Ratio 15.8 RATIO (10-20); Calcium,Total 8.6 mg/dL (7.6-11.0); Carbon Dioxide 7.1 mmol/L (21.0-32.0); Chloride 109 mmol/L (98-108); Creatinine, Serum 2.93 mg/dL (0.70-1.20); EST Glomerular Filtration Rate 25 (>60); Estimated Creatinine Clearance 33.33 ml/min (50-250); Glucose 116 mg/dL (70-99); Potassium 4.2 mmol/L (3.3-5.1); Sodium Level 130 mmol/L (133-145)
--- NOTE | 2025-01-15 23:12 | HP.PCM.HOS_ITS ---
HPI - General HPI Narrative DOV BURROWS is a 54 M who presents [facility] Medical History Cancer of appendix Ileostomy present Acute appendicitis Home Medications ?Medication ?Instructions ?Recorded ?Last Taken ?Type bupropion HCl 150 mg tablet,12 hr 150 mg PO DAILY 02/2012/15/24 History sustained-release fluvoxamine 150 mg 150 mg PO DAILY 05/04/24 History capsule,extended release 24 hr ondansetron 8 mg disintegrating 8 mg PO Q8H PRN nausea and 05/04/24 Unknown Rx tablet vomiting #20 tabs omeprazole 20 mg capsule,delayed 20 mg PO DAILY 12/15/24 History release psyllium husk (aspartame) 3 gram 1 packet PO TID #54 e a 11/29/24 12/15/24 Rx oral powder packet (Daily Fiber (psyllium-aspartame)) dicyclomine 20 mg tablet 20 mg PO .QID PRN diarrhea # 20 tabs 12/16/24 Unknown Rx diphenoxylate-atropine 2.5 2 tab PO Q6H PRN diarrhea # 30 tabs 12/16/24 Unknown Rx mg-0.025 mg tablet (Lomotil) Allergy/AdvReac Type Severity Reaction Status Date / Time No Known Allergies Allergy Verified 01/15/25 19:27 Family History (Updated 11/26/24 @ 18:[address] Ibrahima Doan, ) Other VTE (venous thromboembolism) Surgical History S/P splenectomy H/O colectomy Social History household members: spouse housing: house Smoking Status: Never smoker Vital Signs Vital Signs Vital Signs: 01/15/25 19:26 01/15/25 20:54 01/15/25 21:04 Temperature 98.2 F Temperature Source Oral Pulse Rate 95 81 Respiratory Rate 18 18 Respiratory Effort Normal Non-Labored Respiratory Pattern Normal Blood Pressure 117/78 118/81 H Blood Pressure Mean 91 93 Pulse Ox 98 97 Oxygen Delivery Method Room Air Room Air Weight Weight: 89.675 kg Body Mass Index (BMI) 26.0 Results Lab / Micro Data 01/15/25 20:42 01/15/25 22:09 Labs: Laboratory Results - last 24 hr 01/15/25 20:42: WBC 13.7 H, RBC 3.76 L, Hgb 12.0 L, Hct 35.2 L, MCV 93.6, MCH 31.9, MCHC 34.1, RDW Std Deviation 54.4 H, RDW Coeff of Dirk 15.9 H, Plt Count 344, MPV 8.8, Immature Gran % (Auto) 0.400, Neut % (Auto) 84.7 H, Lymph % (Auto) 4.9 L, [place] % (Auto) 9.5, Eos % (Auto) 0.3, Baso % (Auto) 0.2, Absolute Neuts (auto) 11.6 H, Absolute Lymphs (auto) 0.67 L, Nucleated RBC % 0.1, Sodium 128 L, Potassium 3.7, Chloride 106, Carbon Dioxide 6.5 L*, Anion Gap 16 H, BUN 48 H, C reatinine 3.02 H, Estim Creat Clear Calc 32.34 L, Est GFR (MDRD) Non-Af 24 L, BUN/Creatinine Ratio 15.8, Glucose 115 H, Calcium 9.0 01/15/25 22:09: Sodium 130 L, Potassium 4.2, Chloride 109 H, Carbon Dioxide Cancelled 01/15/25 22:09: Carbon Dioxide 7.1 L*, Anion Gap 14, BUN 46 H, Creatinine 2.93 H , Estim Creat Clear Calc 33.33 L, Est GFR (MDRD) Non-Af 25 L, BUN/Creatinine Ratio 15.8, Glucose 116 H, Calcium 8.6
[2025-01-15 23:23] VITALS: BP 107/70; PULSE 75; RESP 18; TEMP 36.7; O2SAT 97
== END 2025-01-15 23:33 | disposition left against medical advice (07) ==
PROVIDERS: Emergency Provider Surgery; PCP Internal Medicine; Referring Provider Surgery; Visit Provider Surgery
DX: E86.0 Dehydration (principal); Z93.2 Ileostomy status; N17.9 Acute kidney failure, unspecified; E87.1 Hypo-osmolality and hyponatremia; Z53.29 Procedure and treatment not carried out because of patient's decision for other reasons; Z85.09 Personal history of malignant neoplasm of other digestive organs
CPT/HCPCS: 80048; 85025; 96360; 96361; 99283; A4216

== ENCOUNTER 2025-03-28 12:58 | Emergency (ER) | payer BC, SELFPAY ==
[2025-03-28 12:59] VITALS: BP 99/69; PULSE 100; RESP 19; TEMP 36.8; O2SAT 98; BMI 26.2
--- NOTE | 2025-03-28 13:33 | EX.ED.DYSGE1 ---
HPI History of Present Illness Chief Complaint: General Illness Detail of Chief Complaint: Concern for dehydration. 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 He has had history of high output ileostomy. And has had issues with acute kidney injury and chronic kidney disease. He is concerned due to the heat and the output of his ostomy and is not keeping up with his fluids. Denies abdominal pain. Denies nausea or vomiting. Denies fever. Believes he is urinating a little less also. But no dysuria. He has had episodes like this before. Prior similar symptoms: Yes Recent Illness/Hospitalization: No PFSH PFSH Medical History Dehydration Acute kidney injury Cancer of appendix Ileostomy present Acute appendicitis Home Medications ?Medication ?Instructions ?Recorded ?Last Taken ?Type bupropion HCl 150 mg tablet,12 hr 150 mg PO DAILY 05/04/24 12/15/24 History sustained-release fluvoxamine 150 mg 150 mg PO DAILY 05/04/24 12/15/24 History capsule,extended release 24 hr ondansetron 8 mg disintegrating 8 mg PO Q8H PRN nausea and 05/04/24 Unknown Rx tablet vomiting #20 tabs omeprazole 20 mg capsule,delayed 20 mg PO DAILY 11/26/24 12/15/24 History release psyllium husk 3 gram oral powder 1 packet PO TID #54 ea 11/29/24 12/15/24 Rx packet (Daily Fiber (psyllium-aspartame)) dicyclomine 20 mg tablet 20 mg PO .QID PRN diarrhea #20 tabs 12/16/24 Unknown Rx diphenoxylate-atropine 2.5 2 tab PO Q6H PRN diarrhea #30 tabs 12/16/24 Unknown Rx mg-0.025 mg tablet (Lomotil) Allergy/AdvReac Type Severity Reaction Status Date / Time No Known Allergies Allergy Verified 03/28/25 13:01 Family History Other VTE (venous thromboembolism) Surgical History S/P splenectomy H/O colectomy Social History household members: spouse housing: house Smoking Status: Never smoker ROS ROS ED ROS Narrative Tired. Constitutional Constitutional ED: Denies chills or fever(s) Eyes Eyes: Denies blurry vision ENT ENT ED: Denies ear pain Cardiovascular Cardiovascular: Denies chest pain Respiratory/Chest Respiratory/Chest: Denies cough or dyspnea Gastrointestinal Gastrointestinal: Reports diarrhea and other Details: High output ileostomy. ; Denies abdominal pain, nausea or vomiting Genitourinary Genitourinary ED: Denies dysuria or hematuria Musculoskeletal Musculoskeletal: Denies arthralgias Integumentary Denies abscess Neurologic Neurologic: Denies headache(s) Psychiatric Psychiatric: Denies anxiety or depression Endocrine Endocrinology: Denies cold intolerance Hematologic/Lymphatic Hematologic/Lymphatic: Reports none Allergic/Immunologic Allergic/Immunologic ED: Denies mouth swelling, tongue swelling or urticaria EXAM Physical Exam Narrative Exam Narrative: Well-appearing 54-year-old male. Initial blood pressure was low at 99/69. Heart rate 100. H EENT exam pupils are unreactive light. Mild dry mucous members. Neck nontender no JVD. Lungs clear to auscultation bilaterally. Heart rate about 100 no murmur. Chest wall and ribs nontender. Abdomen soft nondistended normal bowel sounds without peritoneal signs. Ostomy bag in his lower abdomen with loose stool. Nontender. Nondistended. Moving all 4 extremities. Nontender no edema. Back nontender. Neurologically he is awake alert. Answer questions following commands. Const Vital Signs: 03/28/25 12:59 03/28/25 13:13 03/28/25 14:16 Temperature 98.3 F Temperature Source Oral Pulse Rate 100 84 Respiratory Rate 19 H 16 Respiratory Effort Normal Respiratory Pattern Normal Blood Pressure 99/69 105/71 Blood Pressure Mean 79 82 Pulse Ox 98 100 Oxygen Delivery Method Room Air 03/28/25 15:26 Temperature 98.3 F Temperature Source Pulse Rate 84 Respiratory Rate 16 Respiratory Effort Respiratory Pattern Blood Pressure 106/70 Blood Pressure Mean 82 Pulse Ox 98 Oxygen Delivery Method Positive well nourished and well developed; Negative for cachectic, contractures or unkempt General Appearance ED: well developed and NAD; Negative for unkempt, cachectic, contractures, cyanotic, diaphoretic or pallor Nutritional Appearance: Negative for cachectic HEENT Reports dry mucous membranes; Denies moist mucous membranes Negative for trauma or tenderness Mouth ED: Yes dry mucous membranes Mouth: dry mucous membranes Eyes PERRL and EOMs intact bilaterally Neck no lymphadenopathy, supple and no JVD Chest Wall inspection of chest normal and palpation of chest normal Resp normal respiratory effort and clear to auscultation bilaterally Effort and Inspection: Negative for retractions Auscultation: Negative for rales, rhonchi, wheezes or diminished lung sounds Cardio regular rate, regular rhythm, S1 normal heart sound, S2 normal heart sound and no murmurs GI normal to inspection, nondistended, normoactive bowel sounds, non-tender, non-distended and no masses GI Narrative: Ileostomy bag with loose stool. Nontender. Nondistended. Auscultation: normoactive bowel sounds Palpation: soft; Negative for tender, guarding or rebound tenderness present Back/Spine no CVA tenderness General Back: Negative for CVA tenderness Cervical Spine: Negative for cervical spine tenderness Thoracic Spine / Upper Back: Negative for thoracic spinal tenderness Extremity normal to inspection General Extremety ED: Negative for edema or tenderness General Extremity: Negative for edema Neuro oriented x3 and CN's II-XII intact bilaterally Sensorium / Orientation: alert; Negative for orientation impaired, lethargic or stuporous Motor Exam: strength 5/5 throughout Psych mental status grossly normal Appearance: Negative for unkempt Skin no rashes or lesions noted and no wounds General Skin Exam: Negative for jaundice or pallor Lesions: No lesion noted Rashes: No rashes noted Trauma: Negative for abrasion Wounds: Negative for wounds noted MDM MDM MDM Narrative Medical decision making narrative: 54-year-old male with history of ileostomy with high output concern for dehydration. He does have a borderline blood pressure and pulse of 100. But given 2 L normal saline screening labs will be obtained. He has had episodes like this before. He has a known history of chronic kidney disease. Repeat exam patient doing well at 3:16 PM. Abdomen benign. Patient doing well. Patient is comfortable being discharged home. Plenty of fluids. Rest. Follow-up with his doctors as needed. Labs are consistent with prior labs and his chronic kidney disease. He has had elevated white counts before in the past. He is also had a prior history of hyponatremia. Lab Data Attestation: I reviewed the patient's lab results. Lab results narrative: CBC shows a white count 18.2. H&H 12.1 and 35.9. Platelets 367. Chemistry shows sodium 128. Gap 15. BUN is 77 creatinine 2.91 consistent with dehydration. He has had creatinines this high and higher before. Glucose 121. Labs: Laboratory Results - last 24 hr 03/28/25 13:37 WBC 18.2 H RBC 3.79 L Hgb 12.1 L Hct 35.9 L MCV 94.7 H MCH 31.9 MCHC 33.7 RDW Std Deviation 51.8 H RDW Coeff of Dirk 14.8 H Plt Count 367 MPV 8.8 Immature Gran % (Auto) 0.500 Neut % (Auto) 86.7 H Lymph % (Auto) 3.0 L Routt % (Auto) 9.5 Eos % (Auto) 0.2 Baso % (Auto) 0.1 Absolute Neuts (auto) 15.8 H Absolute Lymphs (auto) 0.55 L Nucleated RBC % 0 Differential Comment SCANNED Platelet Estimate A Sodium 128 L Potassium 3.8 Chloride 103 Carbon Dioxide 10.3 L Anion Gap 15 BUN 77 H Creatinine 2.91 H Estim Creat Clear Calc 33.56 L Est GFR (MDRD) Non-Af 25 L BUN/Creatinine Ratio 26.4 H Glucose 121 H Calcium 9.1 Discharge Plan Triage Chief Complaint: General Illness ED Provider: Hesham Jacobson Dx/Rx/DC Orders Clinical Impression: Acute dehydration, Chronic hyponatremia, High output ileostomy, History of chronic kidney disease, History of malignant neoplasm of appendix Instructions: ED Dehydration (Adult) Prescriptions: No Action bupropion HCl 150 mg tablet sustained-release 12 hr 150 mg PO DAILY Patient Comments: [NO ORIGINAL SIG] fluvoxamine 150 mg capsule,extended release 24hr 150 mg PO DAILY Patient Comments: [NO ORIGINAL SIG] ondansetron 8 mg tablet,disintegrating 8 mg PO Q8H PRN (Reason: nausea and vomiting) Qty: 20 0RF omeprazole 20 mg capsule,delayed release(DR/EC) 20 mg PO DAILY Daily Fiber (psyllium-aspart) 3 gram Powder In Packet 1 packet PO TID Qty: 54 0RF diphenoxylate-atropine [Lomotil] 2.5-0.025 mg tablet 2 tab PO Q6H PRN (Reason: diarrhea) Qty: 30 0RF dicyclomine 20 mg tablet 20 mg PO .QID PRN (Reason: diarrhea) Qty: 20 0RF Primary Care Provider: Diandra Gonzales Referrals: Diandra Gonzales MD [Primary Care Provider] - As Needed Activity Restrictions/Additional Instructions: Plenty of fluids and rest. Make sure you are drinking 1 to 2 L of water at least daily. Follow-up with your doctor if you are not improving. Your labs are consistent with your prior labs with your chronic kidney disease and your low sodium. Return if feeling worse. Avoid the heat if possible. Stay indoor in the air conditioning lots hot outside. Print Language: [place] Disposition Disposition: Home, Self Care
[2025-03-28] MEDS: 0.9% Normal Saline (1000mL) 1,000 ML 1000 ML IV (13:38)
--- OUTSIDE RECORDS SUMMARY | 2025-03-28 13:41 | XMS RPT_ITS | CCD ---
Author Organization [facility] Care Team Providers Care Goggles Assembler Name Role Phone Harjeet Bernard MD Primary Care Provider Andre Parnell DO Unavailable Harjeet Bernard MD Primary Care Provider Andre Parnell DO Unavailable Graciela Weeks RN Unavailable AGUS KOHLER Admitting Unavailable AGUS KOHLER Attending Unavailable HARJEET BERNARD Primary Care Unavailable Harjeet Bernard MD Primary Care Provider Andre Parnell DO Unavailable Harjeet Bernard MD Primary Care Provider Ugarte DIRECTOR RADIO NEWS.INSPECTOR COATED FABR[employer], Julissa Unavailable Shon DIRECTOR RADIO NEWS.BREAD DOUGH MIXER, Meri Unavailable Shon DIRECTOR RADIO NEWS.BREAD DOUGH MIXER, Meri Unavailable Dr. Harjeet Bernard MD Primary Care Provider Dr. Jose Harman MD Emergency Provider Dr. Ibrahima Doan DO Admit Provider Dr. Ibrahima Doan DO Attending Provider Dr. Ibrahima Doan DO Other Provider Dr. Sara Quezada DO Attending Provider Dr. Sara Quezada DO Other Provider Dr. Ibrahima Camarena DO Emergency Provider Dr. Mk Jc DO Admit Provider Hosea DO, Dr. Terrazas Attending Provider Hosea DO, Dr. Terrazas Other Provider Dilma MEZA, Dr. Antonette Galaviz Attending Provider Shon DIRECTOR RADIO NEWS.BREAD DOUGH MIXER, Meri Unavailable Susie DO, Dr. Dong Referring Provider Susie DO, Dr. Dong Emergency Provider Talampas, Harjeet D Primary Care Unavailable NallelyeletsMk wolf Admitting Unavailable NlalelyeletskyMk Attending Unavailable Talampas, Harjeet D Primary Care Unavailable Ish Avendaño Attending Unavailable Talampas, Harjeet D Primary Care Unavailable Klusty-IvanIker Referring Unavailabl e Klusty-IvanIker Attending Unavailabl e Talampas, Harjeet D Primary Care Unavailable Mk Jc Admitting Unavailable Mk Jc Attending Unavailable Mk Jc Consulting Unavailable Vannaeri, Ibrahima Attending Unavailable Jopperi, Ibrahima Consulting Unavailable Talampas, Harjeet D Primary Care Unavailable Jopperi, Ibrahima Admitting Unavailable Jopperi, Ibrahima Consulting Unavailable Talampas, Harjeet D Primary Care Unavailable Sara Quezada Attending Unavailable Jopperi, Ibrahima Admitting Unavailable Sara Quezada Consulting Unavailable Jopperi, Ibrahima Consulting Unavailable Jopperi, Ibrahima Admitting Unavailable Talampas, Harjeet D Primary Care Unavailable Sara Quezada Attending Unavailable Shon DIRECTOR RADIO NEWS.BREAD DOUGH MIXER, Meri Unavailable Muse DIRECTOR RADIO NEWS.INSPECTOR [employer]ATED F[employer], Julissa Unavailable TALAMPAS, HARJEET D Primary Care Unavailable TALAMPAS, HARJEET D Referring Unavailable TALAMPAS, HARJEET D Primary Care Unavailable NICOLASA DENISE Referring Unavailable TALAMPAS, HARJEET D Primary Care Unavailable NICOLASA DENISE Referring Unavailable TALAMPAS, HARJEET D Primary Care Unavailable TALAMPAS, HARJEET D Referring Unavailable TALAMPAS, HARJEET D Primary Care Unavailable TALAMPAS, HARJEET D Referring Unavailable TALAMPAS, HARJEET D Primary Care Unavailable TALAMPAS, HARJEET D Referring Unavailable TALAMPAS, HARJEET D Primary Care Unavailable UGARTE, JULISSA Referring Unavailable TALAMPAS, HARJEET D Primary Care Unavailable TALAMPAS, HARJEET D Referring Unavailable TALAMPAS, HARJEET D Primary Care Unavailable UGARTE, JULISSA Referring Unavailable TALAMPAS, HARJEET D Primary Care Unavailable TALAMPAS, HARJEET D Referring Unavailable TALAMPAS, HARJEET D Primary Care Unavailable TALAMPAS, HARJEET D Primary Care Unavailable TALAMPAS, HARJEET D Referring Unavailable TALAMPAS, HARJEET D Primary Care Unavailable TALAMPAS, HARJEET D Referring Unavailable TALAMPAS, HARJEET D Primary Care Unavailable TALAMPAS, HARJEET D Attending Unavailable TALAMPAS, HARJEET D Primary Care Unavailable TALAMPAS, HARJEET D Referring Unavailable TALAMPAS, HARJEET D Primary Care Unavailable NICOLASA DENISE Attending Unavailable TALAMPAS, HARJEET D Primary Care Unavailable HOWIENICOLASA Attending Unavailable TALAMPAS, HARJEET D Primary Care Unavailable TALAMPAS, HARJEET D Referring Unavailable TALAMPAS, HARJEET D Primary Care Unavailable UGARTE, JULISSA Attending Unavailable TALAMPAS, HARJEET D Primary Care Unavailable TALAMPAS, HARJEET D Referring Unavailable TALAMPAS, HARJEET D Primary Care Unavailable TALAMPAS, HARJEET D Referring Unavailable TALAMPAS, HARJEET D Primary Care Unavailable TALAMPAS, HARJEET D Referring Unavailable TALAMPAS, HARJEET D Primary Care Unavailable SELF Referring Unavailable TALAMPAS, HARJEET D Attending Unavailable TALAMPAS, HARJEET D Primary Care Unavailable HOWIENICOLASA Attending Unavailable TALAMPAS, HARJEET D Primary Care Unavailable UGARTE, JULISSA Referring Unavailable Medications Current Medications Medication Drug Class(es) Dates Sig (Normalized) Sig (Original) atropine sulfate 0.025 mg / diphenoxylate hydrochloride 2.5 mg oral tablet (10 sources) Anticholinergic, Cholinergic Muscarinic Antagonist, Antidiarrheal Start: 01-15-2025 End: 04-15-2025 take 2 tablets by mouth four times daily diphenoxylate-atr opine (LOMOTIL) 2.5-0.025 mg per tablet Indications: Dehydration Take 2 tablets by mouth four times daily for 90 days. 240 tablet 2 01/15/2025 04/15/2025 Active Start: 12-16-2024 End: 01-15-2025 take 2 tablets by mouth every six hours as needed diphenoxylate-atropine (LOMOTIL) 2.5-0.025 mg per tablet Take 2 tablets by mouth every 6 hours as needed for diarrhea. 12/16/2024 01/15/2025 Discontinued 12 hr buPROPion hydrochloride 150 mg extended release oral tablet (20 sources) Aminoketone Start: 05-04-2024 take 1 tablet by mouth once daily Bupropion Hcl 150 mg tablet sustained-release 12 hr Active 150 mg PO DAILY May 04, 2024 12:00am Start: 03-23-2024 End: 12-21-2024 take 1 tablet by mouth twice daily buPROPion SR (WELLBUTRIN SR) 150 mg 12 hr tablet Indications: Recurrent major depressive disorder, in partial remission Take 1 tablet by mouth two times a day. 180 tablet 3 12/21/2024 Active Start: 12-21-2020 End: 11-11-2023 take 1 tablet by mouth twice daily buPROPion SR (WELLBUTRIN SR) 150 mg 12 hr tablet Indications: Recurrent major depressive disorder, in partial remission (HCC) Take 1 tablet by mouth twice daily. 180 tablet 3 02/13/2023 11/11/2023 Discontinued Comment on above: Take 1 tablet by mateo th twice daily. CPAP (20 sources) Start: 05-15-2024 CPAP Indications: AMBROSE on CPAP Continue Auto PAP @ 5-20 cm of water with humidification. Mask (per patient preference) optional chin strap (if indicated) , filters, tubing, humidifier and lifetime supplies. AMBROSE G47.33 1 Each 05/15/2024 Active Start: 05-15-2024 CPAP Indicatio ns: AMBROSE on CPAP Continue Auto PAP @ 5-20 cm of water with humidification. Mask (per patient preference) optional chin strap (if indicated) , filters, tubing, humidifier and lifetime supplies. AMBROSE G47.33 1 Each 0 05/15/2024 Active Start: 04-05-2023 End: 05-15-2024 CPAP Indications: AMBROSE on CPA P Continue Auto PAP @ 5-20 cm of water with humidification. Mask (per patient preference) optional chin strap (if indicated) , filters, tubing, humidifier and lifetime supplies. AMBROSE G47.33 1 Each 0 04/05/2023 05/15/2024 Discontinued Start: 04-05-2023 CPAP Indicatio ns: AMBROSE on CPAP Continue Auto PAP @ 5-20 cm of water with humidification. Mask (per patient preference) optional chin strap (if indicated) , filters, tubing, humidifier and lifetime supplies. AMBROSE G47.33 1 Each 0 04/05/2023 Active Start: 12-21-2020 End: 04-05-2023 CPAP Indications: Obstructiv e sleep apnea syndrome Continue Auto PAP @ 5-20 cm of water with humidification. Mask (per patient preference) optional chin strap (if indicated) , filters, tubing, humidifier and lifetime supplies. AMBROSE G47.33 1 Device 12/21/2020 04/05/2023 Discontinued Start: 12-21-2020 CPAP Indicatio ns: Obstructive sleep apnea syndrome Continue Auto PAP @ 5-20 cm of water with humidification. Mask (per patient preference) optional chin strap (if indicated) , filters, tubing, humidifier and lifetime supplies. AMBROSE G47.33 1 Device 12/21/2020 Suspended Start: 12-21-2020 CPAP Indicatio ns: Obstructive sleep apnea syndrome Continue Auto PAP @ 5-20 cm of water with humidification. Mask (per patient preference) optional chin strap (if indicated) , filters, tubing, humidifier and lifetime supplies. AMBROSE G47.33 1 Device 12/21/2020 Active Comment on above: Continue Auto PAP @ 5-20 cm of water with humidification. Mask (per patient preference) optional chin strap (if indicated) , filters, tubing, humidifier and lifetime supplies. AMBROSE G47.33 diazePAM 2 mg oral tablet (1 source) Benzodiazepine Start: 06-27-20 End: 07-02-20 22 take 1 tablet by mouth every eight hours as needed for muscle spasms diazePAM (VALIUM) 2 mg tablet Indications: Post-op pain Take 1 tablet by mouth every 8 hours as needed for muscle spasm for up to 4 days. 12 tablet 0 06/27/2022 07/02/2022 Active Comment on above: Take 1 tablet by mateo th every 8 hours as needed for muscle spasm for up to 4 days. dicyclomine hydrochloride 20 mg oral tablet (10 sources) Anticholinergic Start: 12-17-19 25 take 1 tablet by mouth four times daily dicyclomine (BENTYL) 20 mg tablet Take 20 mg by mouth four times daily. 12/16/2024 Active ferrous sulfate 325 mg oral tablet (20 sources) Start: 10-15-19 take 1 tablet by mouth every other day ferrous sulfate 325 mg (65 mg iron) tablet Indications: Iron deficiency anemia, unspecified iron deficiency anemia type Take 1 tablet by mouth every other day. 10/15/2022 Active Start: 08-18-2021 End: 10-15-2022 take 1 tablet by mouth once daily at breakfast ferrous sulfate 325 mg (65 mg iron) tablet Take 1 tablet by mouth daily with breakfast. 90 tablet 1 03/05/2022 10/15/2022 Discontinued Comment on above: Take 1 tablet by mateo th daily with breakfast. Take 1 tablet by mateo th every other day. 24 hr fluvoxaMINE maleate 150 mg extended release oral capsule (20 sources) Serotonin Reuptake Inhibitor Start: End: take 1 capsule by mouth once daily at bedtime fluvoxaMINE ER (LUVOX CR) 150 mg capsule Take 1 capsule by mouth daily at bedtime. 90 capsule 3 12/21/2024 Active Start: 10-09-2023 End: 11-11-2023 take 1 tablet by mouth once daily at bedtime fluvoxaMINE (LUVOX) 100 mg tablet Take 1 tablet by mouth daily at bedtime. 30 tablet 0 10/09/2023 11/11/2023 Discontinued Start: 10-09-2023 End: 11-11-2023 take 1 tablet by mouth once daily at bedtime fluvoxaMINE (LUVOX) 50 mg tablet Take 1 tablet by mouth daily at bedtime. 30 tablet 0 10/09/2023 11/11/2023 Discontinued Comment on above: Take 1 capsule by mo uth daily at bedtime. Take 1 tablet by mateo th daily at bedtime. loperamide hydrochloride 2 mg oral capsule (19 sources) Opioid Agonist Start: End: take 2 capsules by mouth four times daily loperamide (IMODIUM) 2 mg cap(s) Take 2 capsules by mouth four times daily. 240 capsule 2 01/15/2025 04/15/2025 Active Start: 11-29-2024 End: 01-15-2025 take 1 capsule by mouth every twelve hours as needed loperamide (IMODIUM) 2 mg cap(s) Take 2 mg by mouth two times a day as needed. 11/29/2024 01/15/2025 Discontinued Start: 11-29-2024 End: 12-16-2024 take 1 capsule by mouth every twelve hours as needed for diarrhea Loperamide 2 mg Capsule Discontinued 2 mg PO Q12H as needed for DIARRHEA 60 November 29, 2024 1:00am December 16, 2024 11:19am multivitamin tablet (20 sources) Start: 02-06-2017 take 1 tablet by mouth once daily multivitamin tablet Take 1 tablet by mouth once daily. 0 02/06/2017 Suspended Start: 02-06-2017 take 1 tablet by mateo th once daily multivitamin tablet Take 1 tablet by mouth once daily. 0 02/06/2017 Active Comment on above: Take 1 tablet by mateo th once daily. omeprazole 20 mg delayed release oral capsule (20 sources) Proton Pump Inhibitor Start: End: take 1 capsule by mouth once daily omeprazole (PRILOSEC) 20 mg capsule Take 1 capsule by mouth once daily. 90 capsule 3 12/21/2024 Active ondansetron 8 mg oral tablet (20 sources) Serotonin-3 Receptor Antagonist Start: take 1 tablet by mouth every twelve hours as needed ondansetron (ZOFRAN) 8 mg tablet Take 1 tablet by mouth every 12 hours as needed for nausea/vomiting. 60 tablet 06/15/2024 Active Start: 05-04-2024 End: 12-21-2024 take 1 tablet by mouth every eight hours as needed for nausea and vomiting Ondansetron 8 mg tablet,disintegrating Active 8 mg PO Q8H as needed for nausea and vomiting May 04, 2024 12:00am Psyllium Husk (Aspartame) (D aily Fiber (Psyllium-Aspart)) 3 gram Powder In Packet (3 sources) Start: 11-29-2024 Psyllium Husk (Aspartame) (Daily Fiber (Psyllium-Aspart)) 3 gram Powder In Packet Active 1 NMA PO THREE TIMES A DAY 54 November 29, 2024 1:00am Completed/Discontinued Medications Medication Drug Class(es) Dates Sig (Normalized) Sig (Original) acetaminophen 500 mg oral tablet (20 sources) Start: 06-27-2022 take 500-1000 mg by mouth every six hours as needed acetaminophen (TYLENOL) 500 mg tablet Take 1-2 tablets by mouth every 6 hours as needed for pain. 0 06/27/2022 Active Comment on above: Take 1-2 tablets by mouth every 6 hours as needed for pain. apixaban 5 mg oral tablet (12 sources) Factor Xa Inhibitor Start: 11-22-2022 End: 11-11-2023 take 1 tablet by mouth twice daily apixaban (ELIQUIS) 5 mg tab(s) Take 1 tablet by mouth twice daily. 60 tablet 5 11/22/2022 11/11/2023 Discontinued Comment on above: Take 1 tablet by mateo twice daily. docusate sodium 100 mg oral capsule (16 sources) Start: 03-05-2022 take 1 capsule by mouth every twelve hours as needed docusate sodium (COLACE) 100 mg capsule Take 1 capsule by mouth twice daily as needed for constipation. 0 03/05/2022 Suspended Comment on above: Take 1 capsule by mo [facility] twice daily as needed for constipation. 0.8 ml enoxaparin sodium 100 mg/ml prefilled syringe (20 sources) Low Molecular Weight Heparin Start: 08-01-2022 End: 11-22-2022 inject 0.8 mL by subcutaneous injection twice daily enoxaparin (LOVENOX) 80 mg/0.8 mL Inject 0.8 mL subcutaneously twice daily. Inject entire contents of one(1) syringe 180 Each 0 11/14/2022 11/22/2022 Discontinued Start: 06-11-2022 End: 07-28-2022 inject 100 mg by subcutaneous injection every twelve hours enoxaparin (LOVENOX) 100 mg/mL syrg Inject 1 mL subcutaneously every 12 hour 60 mL 0 06/11/2022 07/28/2022 Comment on above: Inject 1 mL subcutan eously every 12 hour Inject 0.8 mL subcut aneously twice daily. 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 For CT CHESTABD/PEL W IVCON Routine order Administer, As Directed One Time Only, via Oral, Rectal, both Oral and Rectal, Enteric Tube, Stoma or Indwelling Catheter, Enteric Contrast as designated per enteric contrast guidelines 1 Each 0 01/08/2023 01/09/2023 Start: 04-19-2022 End: 04-20-2022 enteric contrast (will be pr ovided with radiology test) For CT ABD/PEL W IVCON Routine order Administer, As Directed One Time Only, via Oral, Rectal, both Oral and Rectal, Enteric Tube, Stoma or Indwelling Catheter, Enteric Contrast as designated per enteric contrast guidelines 1 Each 0 04/19/2022 04/20/2022 Comment on above: For CT ABD/PEL W IVC ON Routine order Administer, As Directed One Time Only, via Oral, Rectal, both Oral and Rectal, Enteric Tube, Stoma or Indwelling Catheter, Enteric Contrast as designated per enteric contrast guidelines For CT CHESTABD/PEL W IVCON Routine order Administer, As Directed One Time Only, via Oral, Rectal, both Oral and Rectal, Enteric Tube, Stoma or Indwelling Catheter, Enteric Contrast as designated per enteric contrast guidelines iv contrast (will be provided with radiology test) (3 sources) Start: 01-08-2023 End: 01-09-2023 iv contrast (will be provided with radiology test) 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 Discontinue saline lock post exam. If Pt. has a central line or IVAD, may access for administration according to line specific nursing protocol. Once exam is complete flush line and de-access according to line specific nursing protocol in the CT contrast administration guidelines link. 1 Each 0 01/08/2023 01/09/2023 Start: 04-19-2022 End: 04-20-2022 iv contrast (will be provide d with radiology test) CT ABD/PEL -Inject, intravenously, once for 1 dose.No IV access, insert saline lock prior to the beginning of sedation, infusion, injection of imaging exam. Discontinue saline lock post exam. If Pt. has a central line or IVAD, may access for administration according to line specific nursing protocol. Once exam is complete flush line and de-access according to line specific nursing protocol in the CT contrast administration guidelines link. 1 Each 0 04/19/2022 04/20/2022 Comment on above: CT ABD/PEL -Inject, intravenously, once for 1 dose.No IV access, insert saline lock prior to the beginning of sedation, infusion, injection of imaging exam. Discontinue saline lock post exam. If Pt. has a central line or IVAD, may access for administration according to line specific nursing protocol. Once exam is complete flush line and de-access according to line specific nursing protocol in the CT contrast administration guidelines link. CT Chest ABD/PEL-Inj ect, intravenously, once for 1 dose.No IV access, insert saline lock prior to the beginning of sedation, infusion, injection of imaging exam. Discontinue saline lock post exam. If Pt. has a central line or IVAD, may access for administration according to line specific nursing protocol. Once exam is complete flush line and de-access according to line specific nursing protocol in the CT contrast administration guidelines link. polyethylene glycol 3350 [id number] mg / potassium chloride 2970 mg / sodium bicarbonate 6740 mg / sodium chloride 5860 mg / sodium sulfate 70868 mg powder for oral solution (15 sources) Osmotic Laxative Start: 04-19-20 peg 3350-Electrolytes (GOLYTELY) 236-22.74-6.74 -5.86 gram suspension Refer to printed prep instructions from your provider. 4000 mL 0 04/19/2022 Suspended Comment on above: Refer to printed pre p instructions from your provider. potassium chloride 20 meq extended release oral tablet (12 sources) Start: 11-30-19 End: 12-22-19 take 1 tablet by mouth once daily Potassium Chloride 20 mEq tablet extended release Discontinued 20 meq PO DAILY November 29, 2024 1:00am December 15, 2024 9:46am sertraline 100 mg oral tablet (20 sources) Serotonin Reuptake Inhibitor Start: 12-22-19 End: 04-05-20 23 take 1.5 tablets by mouth once daily sertraline (ZOLOFT) 100 mg tablet Indications: Recurrent major depressive disorder, in partial remission (HCC) Take 1.5 tablets by mouth once daily. 135 tablet 3 04/05/2023 Active Comment on above: Take 1.5 tablets by mouth once daily. Problems Active Problems Problem Classification Problem Date Documented Da te Episodic/Chronic Acute and unspecified renal failure (20 sources) Acute renal failure syndrome; Translations: [Acute kidney failure, unspecified] Onset: 12-14-2024 12-04-2024 Episodic Anxiety disorders (20 sources) Anxiety state; Translations: [Generalized anxiety disorder] Onset: 02-18-2006 02-18-2006 Chronic Bacterial infection; unspecified site (2 sources) Infection due to enterococcus; Translations: [Streptococcal infection, unspecified site] Episodic Biliary tract disease (2 sources) Leakage of bile; Translations: [Disease of biliary tract, unspecified] Chronic Deficiency and other anemia (3 sources) Iron deficiency anemia; Translations: [Iron deficiency anemia, unspecified] Episodic Deficiency and other anemia (1 source) Microcytic anemia; Translations: [Iron deficiency anemia, unspecified] Episodic Disorders of lipid metabolism (20 sources) Hypercholesterolemia; Translations: [Pure hypercholesterolemia, unspecified] Onset: 02-18-2006 10-18-2018 Chronic Mood disorders (20 sources) Recurrent major depression in partial remission; Translations: [Major depressive disorder, recurrent, in partial remission] Onset: 02-20-2008 Chronic Mycoses (1 source) Candidiasis; Translations: [Candidiasis, unspecified] Episodic Nutritional deficiencies (20 sources) Undernutrition; Translations: [Mild protein-calorie malnutrition] Onset: 06-03-2022 06-05-2022 Chronic Other aftercare (4 sources) Patient encounter status; Translations: [Encounter for therapeutic drug level monitoring] Episodic Other aftercare (1 source) Long-term current use of drug therapy; Translations: [Other long term care social worker (current) drug therapy] 05-15-2024 Episodic Other diseases of kidney and ureters (1 source) Acute renal insufficiency; Translations: [Disorder of kidney and ureter, unspecified] 12-21-2024 Episodic Other gastrointestinal disorders (20 sources) Ileostomy present; Translations: [Ileostomy status] Onset: 05-30-2022 05-30-2022 Chronic Other gastrointestinal disorders (1 source) Ileostomy status; Translations: [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)] Onset: 06-27-2022 Chronic Other gastrointestinal disorders (1 source) Pneumoperitoneum; Translations: [Other specified disorders of peritoneum] Episodic Other gastrointestinal disorders (2 sources) Abdominal mass; Translations: [Other intra-abdominal and pelvic swelling, mass and lump] Episodic Other gastrointestinal disorders (1 source) Other ascites; Translations: [Other ascites] Onset: 2022 Episodic Other gastrointestinal disorders (1 source) Intra-abdominal and pelvic swelling, mass and lump, unspecified site; Translations: [Abdominal mass, unspecified abdominal location] Onset: 2022 Episodic Other gastrointestinal disorders (1 source) Excessive flatus; Translations: [Flatulence] 12-21-2024 Episodic Other nutritional; endocrine; and metabolic disorders (20 sources) Simple obesity ; Translations: [Other obesity due to excess calories] Onset: 02-07-2017 02-07-2017 Chronic Other nutritional; endocrine; and metabolic disorders (20 sources) Obesity caused by energy imbalance; Translations: [Other obesity due to excess calories] Onset: 02-07-2017 02-07-2017 Chronic Peritonitis and intestinal abscess (2 sources) Abdominal abscess; Translations: [Peritoneal abscess] Episodic Residual codes; unclassified (20 sources) Obstructive sleep apnea syndrome; Translations: [Obstructive sleep apnea (adult) (pediatric)] Onset: 02-18-2006 09-25-2021 Chronic Secondary malignancies (5 sources) Pseudomyxoma peritonei; 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 Unclassified (2 sources) as scheduled Unclassified (1 source) Acidosis, unspecified; Translations: [Acidosis, unspecified] Onset: 11-29-2024 Past or Other Problems Problem Classification Problem Date Documented Da te Episodic/Chronic Abdominal pain (1 source) Unspecified abdominal pain; Translations: [Unspecified abdominal pain] Onset: 05-22-2024 Episodic Acute posthemorrhagic anemia (20 sources) Acute posthemorrhagic anemia; Translations: [Acute posthemorrhagic anemia] Onset: 05-29-2022 Resolved: 06-27-2022 05-30-2022 Episodic Adjustment disorders (20 sources) Adjustment disorder; Translations: [Adjustment disorder with other symptoms] Onset: 01-17-2011 Resolved: 01-25-2015 01-25-2015 Chronic Appendicitis and other appendiceal conditions (20 sources) Appendix mass; Translations: [Other specified diseases of appendix] Onset: 05-29-2022 Episodic Complications of surgical procedures or medical care (20 sources) Pulmonary insufficiency following surgery; Translations: [Other postprocedural complications and disorders of respiratory system, not elsewhere classified] Onset: 07-06-2009 Resolved: 06-27-2022 05-30-2022 Episodic Deficiency and other anemia (20 sources) Anemia; Translations: [Anemia, unspecified] Onset: 05-11-2022 Episodic Diabetes mellitus without complication (2 sources) Increased glucose level; Translations: [Other abnormal glucose] Onset: 12-12-2024 05-15-2024 Episodic Fluid and electrolyte disorders (20 sources) Hypovolemia; Translations: [Hypovolemia] Onset: 05-29-2022 Resolved: 06-27-2022 05-30-2022 Episodic Immunizations and screening for infectious disease (7 sources) Viral screening status; Translations: [Encounter for screening for other viral diseases] Onset: 12-04-2024 Episodic Malaise and fatigue (20 sources) Malaise and fatigue; Translations: [Other malaise] Onset: 02-18-2006 02-18-2006 Episodic Nausea and vomiting (13 sources) Nausea, vomiting and diarrhea; Translations: [Nausea with vomiting, unspecified] Onset: 11-30-2024 12-04-2024 Episodic Neoplasms of unspecified nature or uncertain behavior (20 sources) Neoplasm of appendix; 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] Onset: 05-04-2022 05-04-2022 Episodic Other aftercare (1 source) Other senior care (current) drug therapy; Translations: [Encounter for long-term current use of medication] Onset: 12-12-2024 Episodic Other disorders of stomach and duodenum (20 sources) External gastric fistula; 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] Onset: 09-26-2022 Episodic Other gastrointestinal disorders (20 sources) Finding of abdominopelvic segment of trunk; Translations: [Intra-abdominal and pelvic swelling, mass and lump, unspecified site] Onset: 01-23-2023 Episodic Other gastrointestinal disorders (2 sources) Diarrhea, unspecified; Translations: [Diarrhea, unspecified] Onset: 11-30-2024 Episodic Other nervous system disorders (20 sources) Acute postoperative pain; Translations: [Other acute postprocedural pain] Onset: 05-29-2022 05-30-2022 Episodic Other nutritional; endocrine; and metabolic disorders (20 sources) Obesity; Translations: [Obesity, unspecified] Onset: 02-18-2006 Resolved: 01-25-2015 01-25-2015 Chronic Other nutritional; endocrine; and metabolic disorders (20 sources) Abnormal weight gain; Translations: [Abnormal weight gain] Onset: 02-18-2006 Resolved: 01-25-2015 01-25-2015 Episodic Other screening for suspected conditions (not mental disorders or infectious disease) (1 source) Encounter for screening for malignant neoplasm of colon; Translations: [Screening for colon cancer] Onset: 12-04-2024 Episodic Pancreatic disorders (not diabetes) (20 sources) Pancreatic duct leakage; Translations: [Other specified diseases of pancreas] Onset: 06-06-2022 Resolved: 06-27-2022 06-06-2022 Episodic Phlebitis; thrombophlebitis and thromboembolism (20 sources) Portal vein thrombosis; Translations: [Portal vein thrombosis] Onset: 06-05-2022 06-05-2022 Episodic Skin and subcutaneous tissue infections (20 sources) Abscess; Translations: [Cellulitis, unspecified] Onset: 07-04-2009 Resolved: 01-25-2015 01-25-2015 Episodic Results Test Name Value Interpretation Reference Range Facility Basic metabolic 2000 panelon 03-22-2025 Anion gap [Moles/Vol] 20 mmol/L High 8-15 [facility] Comment on above: Order Comment: Speci men Type: BLOOD SPECIMENOrdering Facility: [facility] Address: [address] [place] [address] Performed By: #### 2 4321-2 ####[facility]CL[facility] [id number] [place] [address] [place] Calcium [Mass/Vol] 9.4 mg/dL Normal 8.5-10.2 [facility] Comment on above: Order Comment: Speci men Type: BLOOD SPECIMENOrdering Facility: [facility] Address: [address] [place] [address] Performed By: #### 2 4321-2 ####[facility] LABCLIA [id number] [address] [address] [place] Chloride [Moles/Vol] 100 mmol/L Normal 98-107 [facility] Comment on above: Order Comment: Speci men Type: BLOOD SPECIMENOrdering Facility: [facility] Address: [address] [place] [address] Performed By: #### 2 4321-2 ####[facility] LABCLIA [id number] [place] [id number] [place] CO2 [Moles/Vol] 7 mmol/L Critically low 22-30 [facility] Comment on above: Order Comment: Speci men Type: BLOOD SPECIMENOrdering Facility: [facility] Address: [address] [place] [address] Performed By: #### 2 4321-2 ####[facility]CLIA [id number] [place] [address] [place] Creatinine [Mass/Vol] 4.09 mg/dL High 0.73-1.22 [facility] Comment on above: Order Comment: Speci men Type: BLOOD SPECIMENOrdering Facility: [facility] Address: [address] [place] [address] Performed By: #### 2 4321-2 ####[facility] LABIA [id number] [place] [address] [place] Creatinine and Glomerular filtration rate.predicted panel (S/P/Bld) 17 mL/min/1.73m??? Low >=60 [facility] Comment on above: Order Comment: Speci men Type: BLOOD SPECIMENOrdering Facility: [facility] Address: [address] [place] [address] Result Comment: Marlen mated Glomerular Filtration Rate (eGFR) is calculated using the 2020 CKD-EPI creatinine equation. This equation utilizes serum creatinine, sex, and age as parameters. The creatinine assay has traceable calibration to isotope dilution-mass spectrometry. Refer to KDIGO guidelines for clinical interpretation. In patients with unstable renal function, e.g. those with acute kidney injury, the eGFR may not accurately reflect actual GFR. Performed By: #### 2 4321-2 ####[facility] LABCLIA [id number] [place] [id number] [place] Glucose [Mass/Vol] 129 mg/dL High 74-99 [facility] Comment on above: Order Comment: Speci men Type: BLOOD SPECIMENOrdering Facility: [facility] Address: [address] [place] [address] Result Comment: The [place] Diabetes Association (ADA) provides guidance for cutoff values for fasting glucose and random glucose. The ADA defines fasting as no caloric intake for at least 8 hours. Fasting plasma glucose results between 100 to 125 mg/dL indicate increased risk for diabetes (prediabetes). Fasting plasma glucose results greater than or equal to 126 mg/dL meet the criteria for diagnosis of diabetes. In the absence of unequivocal hyperglycemia, results should be confirmed by repeat testing. In a patient with classic symptoms of hyperglycemia or hyperglycemic crisis, random plasma glucose results greater than or equal to 200 mg/dL meet the criteria for diagnosis of diabetes. Reference: Standards of Medical Care in Diabetes 2016, [place] Diabetes Association. Diabetes Care. 2016.39(Suppl 1). Performed By: #### 2 4321-2 ####[facility]CLIA [id number] [place] [address] [place] Potassium [Moles/Vol] 3.8 mmol/L Normal 3.7-5.1 [facility] Comment on above: Order Comment: Speci men Type: BLOOD SPECIMENOrdering Facility: [facility] Address: [address] [place] [address] Performed By: #### 2 4321-2 ####[facility] LABCLIA [id number] [place] [address] [place] Sodium [Moles/Vol] 127 mmol/L Low 136-144 [facility] Comment on above: Order Comment: Speci men Type: BLOOD SPECIMENOrdering Facility: [facility] Address: [address] [place] [address] Performed By: #### 2 4321-2 ####[facility]CLIA [id number] [place] [address] [place] Urea nitrogen [Mass/Vol] 68 mg/dL High 9-24 [facility] Comment on above: Order Comment: Speci men Type: BLOOD SPECIMENOrdering Facility: [facility] Address: [address] [place] [address] Performed By: #### 2 4321-2 ####[facility]CLIA [id number] [facility] [address] [place] [address] [place] Basic metabolic 2000 panelon 03-08-2025 Anion gap [Moles/Vol] 15 mmol/L Normal 8-15 [facility] Comment on above: Order Comment: Speci men Type: BLOOD SPECIMENOrdering Facility: [facility] Address: [address] [place] [address] Performed By: #### 2 4321-2 ####[facility]CLIA [id number] [address] [address] [place] Calcium [Mass/Vol] 9.0 mg/dL Normal 8.5-10.2 [facility] Comment on above: Order Comment: Speci men Type: BLOOD SPECIMENOrdering Facility: [facility] Address: [address] [place] [address] Performed By: #### 2 4321-2 ####[facility]CLIA [id number] [address] [address] [place] Chloride [Moles/Vol] 107 mmol/L Normal 98-107 [facility] Comment on above: Order Comment: Speci men Type: BLOOD SPECIMENOrdering Facility: [facility] Address: [address] [place], [place] [address] Performed By: #### 2 4321-2 ####[facility]CLIA [id number] [address] [address] [place] CO2 [Moles/Vol] 13 mmol/L Low 22-30 [facility] Comment on above: Order Comment: Speci men Type: BLOOD SPECIMENOrdering Facility: [facility] Address: [address] [place], [place] [address] Performed By: #### 2 4321-2 ####[facility] LABIA [id number] [address] [address] [place] Creatinine [Mass/Vol] 2.40 mg/dL High 0.73-1.22 [facility] Comment on above: Order Comment: Rose summers Type: BLOOD SPECIMENOrdering Facility: [facility] Address: [address] [place] [address] Performed By: #### 2 4321-2 ####[facility] LABIA [id number] [place] [id number] [place] Creatinine and Glomerular filtration rate.predicted panel (S/P/Bld) 32 mL/min/1.73m??? Low >=60 [facility] Comment on above: Order Comment: Rose summers Type: BLOOD SPECIMENOrdering Facility: [facility] Address: [address] [place] [address] Result Comment: Marlen mated Glomerular Filtration Rate (eGFR) is calculated using the 2020 CKD-EPI creatinine equation. This equation utilizes serum creatinine, sex, and age as parameters. The creatinine assay has traceable calibration to isotope dilution-mass spectrometry. Refer to KDIGO guidelines for clinical interpretation. In patients with unstable renal function, e.g. those with acute kidney injury, the eGFR may not accurately reflect actual GFR. Performed By: #### 2 4321-2 ####[facility] LABIA [id number] [place] [id number] [place] Glucose [Mass/Vol] 72 mg/dL Low 74-99 [facility] Comment on above: Order Comment: Rose summers Type: BLOOD SPECIMENOrdering Facility: [facility] Address: [address] [place] [address] Result Comment: The [place] Diabetes Association (ADA) provides guidance for cutoff values for fasting glucose and random glucose. The ADA defines fasting as no caloric intake for at least 8 hours. Fasting plasma glucose results between 100 to 125 mg/dL indicate increased risk for diabetes (prediabetes). Fasting plasma glucose results greater than or equal to 126 mg/dL meet the criteria for diagnosis of diabetes. In the absence of unequivocal hyperglycemia, results should be confirmed by repeat testing. In a patient with classic symptoms of hyperglycemia or hyperglycemic crisis, random plasma glucose results greater than or equal to 200 mg/dL meet the criteria for diagnosis of diabetes. Reference: Standards of Medical Care in Diabetes 2016, [place] Diabetes Association. Diabetes Care. 2016.39(Suppl 1). Performed By: #### 2 4321-2 ####[facility] LABCLIA [id number] [place] [address] [place] Potassium [Moles/Vol] 4.2 mmol/L Normal 3.7-5.1 [facility] Comment on above: Order Comment: Speci men Type: BLOOD SPECIMENOrdering Facility: [facility] Address: [address] [place] [address] Performed By: #### 2 4321-2 ####[facility] LABIA [id number] [place] [address] [place] Sodium [Moles/Vol] 135 mmol/L Low 136-144 [facility] Comment on above: Order Comment: Speci men Type: BLOOD SPECIMENOrdering Facility: [facility] Address: [address] [place] [address] Performed By: #### 2 4321-2 ####[facility] LABCLIA [id number] [place] [address] [place] Urea nitrogen [Mass/Vol] 33 mg/dL High 9-24 [facility] Comment on above: Order Comment: Speci men Type: BLOOD SPECIMENOrdering Facility: [facility] Address: [address] [place] [address] Performed By: #### 2 4321-2 ####[facility] LABIA [id number] [place] [id number] [place] Basic metabolic 2000 panelon 02-23-2025 Anion gap [Moles/Vol] 15 mmol/L Normal 8-15 [facility] Comment on above: Order Comment: Speci men Type: BLOOD SPECIMENOrdering Facility: [facility] Address: [address] [place] [id number] Performed By: #### 2 4321-2 ####[facility] LABCLIA [id number] [address] [address] [place] Calcium [Mass/Vol] 8.2 mg/dL Low 8.5-10.2 [facility] Comment on above: Order Comment: Speci men Type: BLOOD SPECIMENOrdering Facility: [facility] Address: [address] [place], [place] [address] Performed By: #### 2 4321-2 ####[facility]CLIA [id number] [facility] [place] [id number] [place] Chloride [Moles/Vol] 107 mmol/L Normal 98-107 [facility] Comment on above: Order Comment: Speci men Type: BLOOD SPECIMENOrdering Facility: [facility] Address: [address] [place] [address] Performed By: #### 2 4321-2 ####[facility]CLIA [id number] [facility] [place] [id number] [place] CO2 [Moles/Vol] 14 mmol/L Low 22-30 [facility] Comment on above: Order Comment: Speci men Type: BLOOD SPECIMENOrdering Facility: [facility] Address: [address] [place], [place] [address] Performed By: #### 2 4321-2 ####[facility] LABCLIA [id number] [facility] [place] [id number] [place] Creatinine [Mass/Vol] 1.94 mg/dL High 0.73-1.22 [facility] Comment on above: Order Comment: Speci men Type: BLOOD SPECIMENOrdering Facility: [facility] Address: [address] [place], [place] [address] Performed By: #### 2 4321-2 ####[facility] LABCLIA [id number] [place] [address] [place] Creatinine and Glomerular filtration rate.predicted panel (S/P/Bld) 41 mL/min/1.73m??? Low >=60 [facility] Comment on above: Order Comment: Rose summers Type: BLOOD SPECIMENOrdering Facility: [facility] Address: [address] [place] [address] Result Comment: Marlen mated Glomerular Filtration Rate (eGFR) is calculated using the 2020 CKD-EPI creatinine equation. This equation utilizes serum creatinine, sex, and age as parameters. The creatinine assay has traceable calibration to isotope dilution-mass spectrometry. Refer to KDIGO guidelines for clinical interpretation. In patients with unstable renal function, e.g. those with acute kidney injury, the eGFR may not accurately reflect actual GFR. Performed By: #### 2 4321-2 ####[facility] LABCLIA [id number] [place] [address] [place] Glucose [Mass/Vol] 86 mg/dL Normal 74-99 [facility] Comment on above: Order Comment: Rose summers Type: BLOOD SPECIMENOrdering Facility: [facility] Address: [address] [place] [address] Result Comment: The [place] Diabetes Association (ADA) provides guidance for cutoff values for fasting glucose and random glucose. The ADA defines fasting as no caloric intake for at least 8 hours. Fasting plasma glucose results between 100 to 125 mg/dL indicate increased risk for diabetes (prediabetes). Fasting plasma glucose results greater than or equal to 126 mg/dL meet the criteria for diagnosis of diabetes. In the absence of unequivocal hyperglycemia, results should be confirmed by repeat testing. In a patient with classic symptoms of hyperglycemia or hyperglycemic crisis, random plasma glucose results greater than or equal to 200 mg/dL meet the criteria for diagnosis of diabetes. Reference: Standards of Medical Care in Diabetes 2016, [place] Diabetes Association. Diabetes Care. 2016.39(Suppl 1). Performed By: #### 2 4321-2 ####[facility] LABCLIA [id number] [place] [id number] [place] Potassium [Moles/Vol] 4.1 mmol/L Normal 3.7-5.1 [facility] Comment on above: Order Comment: Speci men Type: BLOOD SPECIMENOrdering Facility: [facility] Address: [address] [place] [address] Performed By: #### 2 4321-2 ####[facility]CLIA [id number] [place] [id number] [place] Sodium [Moles/Vol] 136 mmol/L Normal 136-144 [facility] Comment on above: Order Comment: Speci men Type: BLOOD SPECIMENOrdering Facility: [facility] Address: [address] [place] [address] Performed By: #### 2 4321-2 ####[facility] LABCLIA [id number] [place] [address] [place] Urea nitrogen [Mass/Vol] 27 mg/dL High 9-24 [facility] Comment on above: Order Comment: Speci men Type: BLOOD SPECIMENOrdering Facility: [facility] Address: [address] [place] [address] Performed By: #### 2 4321-2 ####[facility] LABCLIA [id number] [place] [address] [place] Basic metabolic 2000 panelon 02-08-2025 Anion gap [Moles/Vol] 13 mmol/L Normal 8-15 [facility] Comment on above: Order Comment: Speci men Type: BLOOD SPECIMEN [facility] Address: [address] [place] [address] Performed By: #### 2 4323-8, 33545-9 #### [facility] CLIA [id number] [address] [place] [address] [place] Calcium [Mass/Vol] 8.4 mg/dL Low 8.5-10.2 [facility] Comment on above: Order Comment: Speci men Type: BLOOD SPECIMEN [facility] Address: [address] [place] [address] Performed By: #### 2 4323-8, 83501-4 #### [facility] CLIA [id number] [address] [place] [address] [place] Chloride [Moles/Vol] 111 mmol/L High 98-107 [facility] Comment on above: Order Comment: Speci men Type: BLOOD SPECIMEN [facility] Address: [address] [place] [address] Performed By: #### 2 4323-8, 92290-6 #### [facility] CLIA [id number] [address] [place] [address] [place] CO2 [Moles/Vol] 15 mmol/L Low 22-30 [facility] Comment on above: Order Comment: Speci men Type: BLOOD SPECIMEN [facility] Address: [address] [place] [address] Performed By: #### 2 4323-8, 77150-3 #### [facility] CLIA [id number] [address] [place] [address] [place] Creatinine [Mass/Vol] 2.34 mg/dL High 0.73-1.22 [facility] Comment on above: Order Comment: Speci men Type: BLOOD SPECIMEN [facility] Address: [address] [place] [address] Performed By: #### 2 4323-8, 41158-6 #### [facility] CLIA [id number] [address] [place] [address] [place] Creatinine and Glomerular filtration rate.predicted panel (S/P/Bld) 33 mL/min/1.73m??? Low >=60 [facility] Comment on above: Order Comment: Speci men Type: BLOOD SPECIMEN [facility] Address: [address] [place] [address] Result Comment: Marlen mated Glomerular Filtration Rate (eGFR) is calculated using the 2020 CKD-EPI creatinine equation. This equation utilizes serum creatinine, sex, and age as parameters. The creatinine assay has traceable calibration to isotope dilution-mass spectrometry. Refer to KDIGO guidelines for clinical interpretation. In patients with unstable renal function, e.g. those with acute kidney injury, the eGFR may not accurately reflect actual GFR. Performed By: #### 2 4323-8, 66134-1 #### [facility] CLIA [id number] [address] [place] [address] [place] Glucose [Mass/Vol] 75 mg/dL Normal 74-99 [facility] Comment on above: Order Comment: Rose summers Type: BLOOD SPECIMEN [facility] Address: [address] [place] [address] Result Comment: The [place] Diabetes Association (ADA) provides guidance for cutoff values for fasting glucose and random glucose. The ADA defines fasting as no caloric intake for at least 8 hours. Fasting plasma glucose results between 100 to 125 mg/dL indicate increased risk for diabetes (prediabetes). Fasting plasma glucose results greater than or equal to 126 mg/dL meet the criteria for diagnosis of diabetes. In the absence of unequivocal hyperglycemia, results should be confirmed by repeat testing. In a patient with classic symptoms of hyperglycemia or hyperglycemic crisis, random plasma glucose results greater than or equal to 200 mg/dL meet the criteria for diagnosis of diabetes. Reference: Standards of Medical Care in Diabetes 2016, [place] Diabetes Association. Diabetes Care. 2016.39(Suppl 1). Performed By: #### 2 4323-8, #### [facility] CLIA [id number] [address] [place] [address] [place] Potassium [Moles/Vol] 3.5 mmol/L Low 3.7-5.1 [facility] Comment on above: Order Comment: Rose summers Type: BLOOD SPECIMEN [facility] Address: [address] [place] [address] Performed By: #### 2 4323-8, 37758-8 #### [facility] CLIA [id number] [address] [id number] [address] [place] Sodium [Moles/Vol] 139 mmol/L Normal 136-144 [facility] Comment on above: Order Comment: Speci men Type: BLOOD SPECIMEN [facility] Address: [address] [place] [address] Performed By: #### 2 4323-8, 30291-2 #### [facility] CLIA [id number] [address] [place] [address] [place] Urea nitrogen [Mass/Vol] 24 mg/dL Normal 9-24 [facility] Comment on above: Order Comment: Speci men Type: BLOOD SPECIMEN [facility] Address: [address] [place] [address] Performed By: #### 2 4323-8, 31901-4 #### [facility] CLIA [id number] [address] [place] [address] Paula 02-03-2025 RICHIEN Telephone ([facility]) ,DOV Zepeda ([id number]) 1970 M Date Time Provider Department 02/03/25 NICOLASA DENISE During your visit today, we recorded the following information about you: Callie Hall 02/03/2025 2:41 PM Signed [phone] Dov Patient calling to go over ostomy output with the nurse. States if she doesn't need to call him, a [facility] message will be ok. Cleo Parekh, PEDRO LUIS 02/03/2025 3:30 PM Signed [employer] sent. Allergies As of Date: 02/03/2025 (No Known Allergies) Date Reviewed: 12/21/2024 Reviewed by: Isela Orozco MA - Fully Assessed Reason for Visit: Patient Update [1234] Prescriptions as of 02/03/2025 - diphenoxylate-atropine (LOMOTIL) 2.5-0.025 mg per tablet Take 2 tablets by mouth four times daily for 90 days. - loperamide (IMODIUM) 2 mg cap(s) Take 2 capsules by mouth four times daily. - dicyclomine (BENTYL) 20 mg tablet Take 20 mg by mouth four times daily. - omeprazole (PRILOSEC) 20 mg capsule Take 1 capsule by mouth once daily. - buPROPion SR (WELLBUTRIN SR) 150 mg 12 hr tablet Take 1 tablet by mouth two times a day. - fluvoxaMINE ER (LUVOX CR) 150 mg capsule Take 1 capsule by mouth daily at bedtime. - ondansetron (ZOFRAN) 8 mg tablet Take 1 tablet by mouth every 12 hours as needed for nausea/vomiting. - CPAP Continue Auto PAP @ 5-20 cm of water with humidification. Mask (per patient preference) optional chin strap (if indicated) , filters, tubing, humidifier and lifetime supplies. AMBROSE G47.33 - ferrous sulfate 325 mg (65 mg iron) tablet Take 1 tablet by mouth every other day. - multivitamin tablet Take 1 tablet by mouth once daily. Problem List As Of Date 02/03/2025 Noted Resolved AMBROSE on CPAP [G47.33] 02/18/2006 Abnormal weight gain [R63.5] 02/18/2006 01/25/2015 MALAISE AND FATIGUE NEC [R53.81, R53.83] 02/18/2006 ANXIETY STATE NOS [F41.1] 02/18/2006 Hypercholesteremia <130 [E78.00] 02/18/2006 OVERWEIGHT [E66.9] 02/18/2006 01/25/2015 DEPRESSIVE DISORDER NEC [F32.89] 02/20/2008 Cellulitis and abscess of unspecified site [L03*07/04/2009 01/25/2015 Non-healing surgical wound [T81.89XA] 07/06/2009 01/25/2015 Other adjustment reaction with predominant dist*01/17/2011 01/25/2015 Non morbid obesity due to excess calories [E66.*02/07/2017 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6] 06/08/2022 06/27/2022 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 Basic metabolic 2000 panelon 02-01-2025 Anion gap [Moles/Vol] 13 mmol/L Normal 8-15 [facility] Comment on above: Order Comment: Speci men Type: BLOOD SPECIMENOrdering Facility: [facility] Address: [address] [place] [address] Performed By: #### 2 4321-2 ####[facility] LABCLIA [id number] [place] [address] [place] Calcium [Mass/Vol] 8.1 mg/dL Low 8.5-10.2 [facility] Comment on above: Order Comment: Speci men Type: BLOOD SPECIMENOrdering Facility: [facility] Address: [address] [place] [address] Performed By: #### 2 4321-2 ####[facility] LABCLIA [id number] [place] [id number] [place] Chloride [Moles/Vol] 110 mmol/L High 98-107 [facility] Comment on above: Order Comment: Speci men Type: BLOOD SPECIMENOrdering Facility: [facility] Address: [address] [place] [address] Performed By: #### 2 4321-2 ####[facility] LABCLIA [id number] [place] [address] [place] CO2 [Moles/Vol] 16 mmol/L Low 22-30 [facility] Comment on above: Order Comment: Speci men Type: BLOOD SPECIMENOrdering Facility: [facility] Address: [address] [place] [address] Performed By: #### 2 4321-2 ####[facility] LABIA [id number] [place] [address] [place] Creatinine [Mass/Vol] 2.10 mg/dL High 0.73-1.22 [facility] Comment on above: Order Comment: Speci men Type: BLOOD SPECIMENOrdering Facility: [facility] Address: [address] [place] [address] Performed By: #### 2 4321-2 ####[facility] LABIA [id number] [place] [address] [place] Creatinine and Glomerular filtration rate.predicted panel (S/P/Bld) 37 mL/min/1.73m??? Low >=60 [facility] Comment on above: Order Comment: Speci men Type: BLOOD SPECIMENOrdering Facility: [facility] Address: [address] [place] [address] Result Comment: Marlen mated Glomerular Filtration Rate (eGFR) is calculated using the 2020 CKD-EPI creatinine equation. This equation utilizes serum creatinine, sex, and age as parameters. The creatinine assay has traceable calibration to isotope dilution-mass spectrometry. Refer to KDIGO guidelines for clinical interpretation. In patients with unstable renal function, e.g. those with acute kidney injury, the eGFR may not accurately reflect actual GFR. Performed By: #### 2 4321-2 ####[facility] [id number] [place] [address] [place] Glucose [Mass/Vol] 77 mg/dL Normal 74-99 [facility] Comment on above: Order Comment: Speci men Type: BLOOD SPECIMENOrdering Facility: [facility] Address: [address] [place] [address] Result Comment: The [place] Diabetes Association (ADA) provides guidance for cutoff values for fasting glucose and random glucose. The ADA defines fasting as no caloric intake for at least 8 hours. Fasting plasma glucose results between 100 to 125 mg/dL indicate increased risk for diabetes (prediabetes). Fasting plasma glucose results greater than or equal to 126 mg/dL meet the criteria for diagnosis of diabetes. In the absence of unequivocal hyperglycemia, results should be confirmed by repeat testing. In a patient with classic symptoms of hyperglycemia or hyperglycemic crisis, random plasma glucose results greater than or equal to 200 mg/dL meet the criteria for diagnosis of diabetes. Reference: Standards of Medical Care in Diabetes 2016, [place] Diabetes Association. Diabetes Care. 2016.39(Suppl 1). Performed By: #### 2 4321-2 ####[facility] LABIA [id number] [place] [address] [place] Potassium [Moles/Vol] 4.2 mmol/L Normal 3.7-5.1 [facility] Comment on above: Order Comment: Speci men Type: BLOOD SPECIMENOrdering Facility: [facility] Address: [address] [place] [address] Performed By: #### 2 4321-2 ####[facility] [id number] [place] [address] [place] Sodium [Moles/Vol] 139 mmol/L Normal 136-144 [facility] Comment on above: Order Comment: Speci men Type: BLOOD SPECIMENOrdering Facility: [facility] Address: [address] [place] [address] Performed By: #### 2 4321-2 ####[facility] LABIA [id number] [place] [id number] [place] Urea nitrogen [Mass/Vol] 26 mg/dL High 9-24 [facility] Comment on above: Order Comment: Speci men Type: BLOOD SPECIMENOrdering Facility: [facility] Address: [address] [place] [address] Performed By: #### 2 4321-2 ####[facility] [id number] [place] [id number] [facility] [place] CNPNon 01-27-2025 CNPN Telephone (MELANIE) FIRSTDOV ([id number]) 1970 M Date Time Provider Department 01/27/25 NICOLASA DENISE During your visit today, we recorded the following information about you: Cleo Parekh RN 01/27/2025 12:31 PM Signed Daily outputs: 01/22: 28 oz 01/23: 52 oz 01/24: 58 oz 01/25: 36 oz 01/26:40 oz Consistency: varies watery- to mashed potatoes. He is playing with the amount of lomotil he takes daily. Over the last 3 weeks has gained back 3 lbs. He overall feeling: really good. Appetite is improving. 1-2 protein shakes a day. Lab work is trending up. They will continue to monitor and play with bowel stoppers and call me in 1 week. Allergies As of Date: 01/27/2025 (No Known Allergies) Date Reviewed: 12/21/2024 Reviewed by: Isela Orozco MA - Fully Assessed Prescriptions as of 01/27/2025 - diphenoxylate-atropine (LOMOTIL) 2.5-0.025 mg per tablet Take 2 tablets by mouth four times daily for 90 days. - loperamide (IMODIUM) 2 mg cap(s) Take 2 capsules by mouth four times daily. - dicyclomine (BENTYL) 20 mg tablet Take 20 mg by mouth four times daily. - omeprazole (PRILOSEC) 20 mg capsule Take 1 capsule by mouth once daily. - buPROPion SR (WELLBUTRIN SR) 150 mg 12 hr tablet Take 1 tablet by mouth two times a day. - fluvoxaMINE ER (LUVOX CR) 150 mg capsule Take 1 capsule by mouth daily at bedtime. - ondansetron (ZOFRAN) 8 mg tablet Take 1 tablet by mouth every 12 hours as needed for nausea/vomiting. - CPAP Continue Auto PAP @ 5-20 cm of water with humidification. Mask (per patient preference) optional chin strap (if indicated) , filters, tubing, humidifier and lifetime supplies. AMBROSE G47.33 - ferrous sulfate 325 mg (65 mg iron) tablet Take 1 tablet by mouth every other day. - multivitamin tablet Take 1 tablet by mouth once daily. Problem List As Of Date 01/27/2025 Noted Resolved AMBROSE on CPAP [G47.33] 02/18/2006 Abnormal weight gain [R63.5] 02/18/2006 01/25/2015 MALAISE AND FATIGUE NEC [R53.81, R53.83] 02/18/2006 ANXIETY STATE NOS [F41.1] 02/18/2006 Hypercholesteremia <130 [E78.00] 02/18/2006 OVERWEIGHT [E66.9] 02/18/2006 01/25/2015 DEPRESSIVE DISORDER NEC [F32.89] 02/20/2008 Cellulitis and abscess of unspecified site [L03*07/04/2009 01/25/2015 Non-healing surgical wound [T81.89XA] 07/06/2009 01/25/2015 Other adjustment reaction with predominant dist*01/17/2011 01/25/2015 Non morbid obesity due to excess calories [E66.*02/07/2017 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6] 06/08/2022 06/27/2022 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 Basic metabolic 2000 panelon 01-25-2025 Anion gap [Moles/Vol] 13 mmol/L Normal 8-15 [facility] Comment on above: Order Comment: Speci men Type: BLOOD SPECIMENOrdering Facility: [facility] Address: [address] [place] [address] Performed By: #### 2 4321-2 ####[facility] LABCLIA [id number] [place] [address] [place] Calcium [Mass/Vol] 8.6 mg/dL Normal 8.5-10.2 [facility] Comment on above: Order Comment: Speci men Type: BLOOD SPECIMENOrdering Facility: [facility] Address: [address] [place] [address] Performed By: #### 2 4321-2 ####[facility] LABCLIA [id number] [place] [address] [place] Chloride [Moles/Vol] 104 mmol/L Normal 98-107 [facility] Comment on above: Order Comment: Speci men Type: BLOOD SPECIMENOrdering Facility: [facility] Address: [address] [place] [address] Performed By: #### 2 4321-2 ####[facility] LABCLIA [id number] [place] [id number] [place] CO2 [Moles/Vol] 18 mmol/L Low 22-30 [facility] Comment on above: Order Comment: Speci men Type: BLOOD SPECIMENOrdering Facility: [facility] Address: [address] [place] [address] Performed By: #### 2 4321-2 ####[facility] LABCLIA [id number] [address] [place] Creatinine [Mass/Vol] 2.32 mg/dL High 0.73-1.22 [facility] Comment on above: Order Comment: Speci men Type: BLOOD SPECIMENOrdering Facility: [facility] Address: [address] [place] [address] Performed By: #### 2 4321-2 ####[facility] LABCLIA [id number] [address] Creatinine and Glomerular filtration rate.predicted panel (S/P/Bld) 33 mL/min/1.73m??? Low >=60 [facility] Comment on above: Order Comment: Speci men Type: BLOOD SPECIMENOrdering Facility: [facility] Address: [address] [place] [address] Result Comment: Marlen mated Glomerular Filtration Rate (eGFR) is calculated using the 2020 CKD-EPI creatinine equation. This equation utilizes serum creatinine, sex, and age as parameters. The creatinine assay has traceable calibration to isotope dilution-mass spectrometry. Refer to KDIGO guidelines for clinical interpretation. In patients with unstable renal function, e.g. those with acute kidney injury, the eGFR may not accurately reflect actual GFR. Performed By: #### 2 4321-2 ####[facility] LABCLIA [id number] [place] [address] [place] Glucose [Mass/Vol] 107 mg/dL High 74-99 [facility] Comment on above: Order Comment: Speci men Type: BLOOD SPECIMENOrdering Facility: [facility] Address: [address] [place] [address] Result Comment: The [place] Diabetes Association (ADA) provides guidance for cutoff values for fasting glucose and random glucose. The ADA defines fasting as no caloric intake for at least 8 hours. Fasting plasma glucose results between 100 to 125 mg/dL indicate increased risk for diabetes (prediabetes). Fasting plasma glucose results greater than or equal to 126 mg/dL meet the criteria for diagnosis of diabetes. In the absence of unequivocal hyperglycemia, results should be confirmed by repeat testing. In a patient with classic symptoms of hyperglycemia or hyperglycemic crisis, random plasma glucose results greater than or equal to 200 mg/dL meet the criteria for diagnosis of diabetes. Reference: Standards of Medical Care in Diabetes 2016, [place] Diabetes Association. Diabetes Care. 2016.39(Suppl 1). Performed By: #### 2 4321-2 ####[facility] LABIA [id number] [place] [address] [place] Potassium [Moles/Vol] 3.4 mmol/L Low 3.7-5.1 [facility] Comment on above: Order Comment: Speci men Type: BLOOD SPECIMENOrdering Facility: [facility] Address: [address] [place] [address] Performed By: #### 2 4321-2 ####[facility] LABIA [id number] [place] [address] [place] Sodium [Moles/Vol] 135 mmol/L Low 136-144 [facility] Comment on above: Order Comment: Speci men Type: BLOOD SPECIMENOrdering Facility: [facility] Address: [address] [place] [address] Performed By: #### 2 4321-2 ####[facility] LABIA [id number] [place] [id number] [place] Urea nitrogen [Mass/Vol] 29 mg/dL High 9-24 [facility] Comment on above: Order Comment: Speci men Type: BLOOD SPECIMENOrdering Facility: [facility] Address: [address] [place] [address] Performed By: #### 2 4321-2 ####[facility] LABCLIA [id number] [place] [address] [place] Basic metabolic 2000 panelon 01-18-2025 Anion gap [Moles/Vol] 15 mmol/L Normal 8-15 [facility] Comment on above: Order Comment: Speci men Type: BLOOD SPECIMEN [facility] Address: [address] [place] [address] Performed By: #### 2 4321-2 #### [facility] CLIA [id number] [address] [place] [address] [place] Calcium [Mass/Vol] 8.2 mg/dL Low 8.5-10.2 [facility] Comment on above: Order Comment: Speci men Type: BLOOD SPECIMEN [facility] Address: [address] [place] [address] Performed By: #### 2 4321-2 #### [facility] CLIA [id number] [address] [place] [address] [place] Chloride [Moles/Vol] 104 mmol/L Normal 98-107 [facility] Comment on above: Order Comment: Speci men Type: BLOOD SPECIMEN [facility] Address: [address] [place] [address] Performed By: #### 2 4321-2 #### [facility] CLIA [id number] [address] [place], [place] [address] [place] CO2 [Moles/Vol] 12 mmol/L Low 22-30 [facility] Comment on above: Order Comment: Speci men Type: BLOOD SPECIMEN [facility] Address: [address] [place] [address] Performed By: #### 2 4321-2 #### [facility] CLIA [id number] [address] [place] [address] [place] Creatinine [Mass/Vol] 3.12 mg/dL High 0.73-1.22 [facility] Comment on above: Order Comment: Rose men Type: BLOOD SPECIMEN [facility] Address: [address] [place] [address] Performed By: #### 2 4321-2 #### [facility] CLIA [id number] [address] [place] [address] [place] Creatinine and Glomerular filtration rate.predicted panel (S/P/Bld) 23 mL/min/1.73m??? Low >=60 [facility] Comment on above: Order Comment: Rose summers Type: BLOOD SPECIMEN [facility] Address: [address] [place] [address] Result Comment: Marlen mated Glomerular Filtration Rate (eGFR) is calculated using the 2020 CKD-EPI creatinine equation. This equation utilizes serum creatinine, sex, and age as parameters. The creatinine assay has traceable calibration to isotope dilution-mass spectrometry. Refer to KDIGO guidelines for clinical interpretation. In patients with unstable renal function, e.g. those with acute kidney injury, the eGFR may not accurately reflect actual GFR. Performed By: #### 2 4321-2 #### [facility] CLIA [id number] [address] [place] [address] [place] Glucose [Mass/Vol] 106 mg/dL High 74-99 [facility] Comment on above: Order Comment: Rose men Type: BLOOD SPECIMEN [facility] Address: [address] [place] [address] Result Comment: The [place] Diabetes Association (ADA) provides guidance for cutoff values for fasting glucose and random glucose. The ADA defines fasting as no caloric intake for at least 8 hours. Fasting plasma glucose results between 100 to 125 mg/dL indicate increased risk for diabetes (prediabetes). Fasting plasma glucose results greater than or equal to 126 mg/dL meet the criteria for diagnosis of diabetes. In the absence of unequivocal hyperglycemia, results should be confirmed by repeat testing. In a patient with classic symptoms of hyperglycemia or hyperglycemic crisis, random plasma glucose results greater than or equal to 200 mg/dL meet the criteria for diagnosis of diabetes. Reference: Standards of Medical Care in Diabetes 2016, [place] Diabetes Association. Diabetes Care. 2016.39(Suppl 1). Performed By: #### 2 4321-2 #### [facility] CLIA [id number] [address] [place] [address] [place] Potassium [Moles/Vol] 2.7 mmol/L Low 3.7-5.1 [facility] Comment on above: Order Comment: Rose summers Type: BLOOD SPECIMEN [facility] Address: [address] [place] [address] Performed By: #### 2 4321-2 #### [facility] [place] [id number] [address] [place] [address] [place] Sodium [Moles/Vol] 131 mmol/L Low 136-144 [facility] Comment on above: Order Comment: Rose summers Type: BLOOD SPECIMEN [facility] Address: [address] [place] [address] Performed By: #### 2 4321-2 #### [facility] CLIA [id number] [address] [place] [address] [place] Urea nitrogen [Mass/Vol] 55 mg/dL High 9-24 [facility] Comment on above: Order Comment: Rose summers Type: BLOOD SPECIMEN [facility] Address: [address] [place] [address] Performed By: #### 2 4321-2 #### [facility] CLIA [id number] [address] [place] [address] [place] CNPFaviola 01-18-2025 CNPN Telephone ([facility] DOV BURROWS ([id number]) 1970 M Date Time Provider Department 01/18/25 NICOLASA DENISE During your visit today, we recorded the following information about you: Mary Gonzalez 01/18/2025 3:45 PM Signed He is doing better with 1 Imodium, lomotil. This has slowed his ouput down considerably. Please call. Cleo Parekh RN 01/18/2025 4:39 PM Signed 2 bags of fluids over the weekend, he started max dosing lomotil and imodium since Saturday- has seen considerable improvements in output consistency since then. Output became a thick applesauce/cake batter consistency. They pulled back on the lomotil and imodium- to 1 and 1. I requested that they pull back on the lomotil first. Continue to take max dosing of imodium, then add 1 lomotil 30 mins before breakfast, and 1 30 mins before dinner- see how his output is then. Requested they continue to document 24 hours output for the next few days, and call me back with the improvements. If they have any concerns before then call. We discussed that he should not be without output for extended periods of time, as this still is an ileostomy, so inevidably it will produce output, and we want to make sure he's not developing a bowel obstruction. He verbalized understanding, S.O. on the phone did as well. They will call with any further concerns. Cleo Parekh RN 01/21/2025 2:43 PM Addendum Pt called back today to discuss current symptoms and output Output levels: 01/19: 59 4: 32 - not great appetite- felt full all day, but attempted to eat much Feels his output consistency is getting better,not as straight watery. Bowel stoppers: Breakfast: taking 2 imodium, and 2 lomotil- 30 before breakfast lunch: 2 imodium dinner: 2 imodium before bed: 2 imodium, and 2 lomotil He feels this has helped with the night waking's to empty pouch. For hydration he's been drinking: Powerades (with liquid IV), 90 + oz a day He tried the sugar free and it made his belly just get really gassy which they felt was contributing to full feelings, and also said it increased output. Overall feels good, but is somewhat frustrated feeling full. Requested they continue to record how much output in 24 hour periods over the weekend and follow up with me after he got new lab work. Allergies As of Date: 01/18/2025 (No Known Allergies) Date Reviewed: 12/21/2024 Reviewed by: Isela Orozco MA - Fully Assessed Prescriptions as of 01/21/2025 - diphenoxylate-atropine (LOMOTIL) 2.5-0.025 mg per tablet Take 2 tablets by mouth four times daily for 90 days. - loperamide (IMODIUM) 2 mg cap(s) Take 2 capsules by mouth four times daily. - dicyclomine (BENTYL) 20 mg tablet Take 20 mg by mouth four times daily. - omeprazole (PRILOSEC) 20 mg capsule Take 1 capsule by mouth once daily. - buPROPion SR (WELLBUTRIN SR) 150 mg 12 hr tablet Take 1 tablet by mouth two times a day. - fluvoxaMINE ER (LUVOX CR) 150 mg capsule Take 1 capsule by mouth daily at bedtime. - ondansetron (ZOFRAN) 8 mg tablet Take 1 tablet by mouth every 12 hours as needed for nausea/vomiting. - CPAP Continue Auto PAP @ 5-20 cm of water with humidification. Mask (per patient preference) optional chin strap (if indicated) , filters, tubing, humidifier and lifetime supplies. AMBROSE G47.33 - ferrous sulfate 325 mg (65 mg iron) tablet Take 1 tablet by mouth every other day. - multivitamin tablet Take 1 tablet by mouth once daily. Problem List As Of Date 01/18/2025 Noted Resolved AMBROSE on CPAP [G47.33] 02/18/2006 Abnormal weight gain [R63.5] 02/18/2006 01/25/2015 MALAISE AND FATIGUE NEC [R53.81, R53.83] 02/18/2006 ANXIETY STATE NOS [F41.1] 02/18/2006 Hypercholesteremia <130 [E78.00] 02/18/2006 OVERWEIGHT [E66.9] 02/18/2006 01/25/2015 DEPRESSIVE DISORDER NEC [F32.89] 02/20/2008 Cellulitis and abscess of unspecified site [L03*07/04/2009 01/25/2015 Non-healing surgical wound [T81.89XA] 07/06/2009 01/25/2015 Other adjustment reaction with predominant dist*01/17/2011 01/25/2015 Non morbid obesity due to excess calories [E66.*02/07/2017 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6] 06/08/2022 06/27/2022 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 Normal [facility] Absolute neutrophil countOrd ered By: Iker Richards on 01-15-2025 Neutrophils (Bld) [#/Vol] 11.6 10*3/uL High 2.0-7.7 [facility] Anion gap in Serum or Plasma Ordered By: Iker Richards on 01-15-2025 Anion gap [Moles/Vol] 14 mmol/L 5-15 [facility] BUN/creatinine ratioOrdered By: Iker Richards on 01-15-2025 Urea nitrogen/Creatinine [Mass ratio] 15.8 mg/mg 10- [facility] Basic Metabolic Profile (BMP )on 01-15-2025 BUN/CRE 15.8 RATIO Normal - [facility] Comment on above: Performed By: #### L 500.4050, L501.5200, L501.2300, L100.0100 #### [facility] [address] [place], [address] Performed By: #### L 100.0100, L500.2500 #### [facility] [address] [place], [address] Calcium [Mass/Vol] 8.6 mg/dL Normal 7.6-11.0 [facility] Comment on above: Performed By: #### L 500.4050, L501.5200, L501.2300, L100.0100 #### [facility] [address] [place], [address] Chloride [Moles/Vol] 109 mmol/L High 98-108 [facility] Comment on above: Performed By: #### L 500.4050, L501.5200, L501.2300, L100.0100 #### [facility] [address] [place], [address] CO2 [Moles/Vol] 7.1 mmol/L Invalid Interpretation Code 21.0-32.0 [facility] Comment on above: Result Comment: Crit ical Result(s) Called at: 2300 by: ANDREIA SIFUENTES TO DR. RICHARDS??Results read back by same. Performed By: #### L 500.4050, L501.5200, L501.2300, L100.0100 #### [facility] [address] [place], [address] Creatinine [Mass/Vol] 2.93 mg/dL High 0.70-1.20 [facility] Comment on above: Performed By: #### L 500.4050, L501.5200, L501.2300, L100.0100 #### [facility] [address] [place], [address] ECRCL 33.33 ml/min Low 50-250 [facility] Comment on above: Performed By: #### L 500.4050, L501.5200, L501.2300, L100.0100 #### [facility] [address] [place], [address] GAP 14 Normal 5-15 [facility] Comment on above: Performed By: #### L 500.4050, L501.5200, L501.2300, L100.0100 #### [facility] [address] [place], [address] GFR/1.73 sq M.predicted among non-blacks MDRD (S/P/Bld) [Vol rate/Area] 25 mL/min/{1.73_m2} Low >60 [facility] Comment on above: Result Comment: mL/m in/1.73m2 CKD-EPI Creatinine Equation (2020) Performed By: #### L 500.4050, L501.5200, L501.2300, L100.0100 #### [facility] [address] [place], [address] Glucose [Mass/Vol] 116 mg/dL High 70-99 [facility] Comment on above: Performed By: #### L 500.4050, L501.5200, L501.2300, L100.0100 #### [facility] [address] [place], [address] Potassium [Moles/Vol] 4.2 mmol/L Normal 3.3-5.1 [facility] Comment on above: Result Comment: Hemo lysis present, Results??could be affected. ?? Performed By: #### L 500.4050, L501.5200, L501.2300, L100.0100 #### [facility] [address] [place], [address] Sodium [Moles/Vol] 130 mmol/L Low 133-145 [facility] Comment on above: Performed By: #### L 500.4050, L501.5200, L501.2300, L100.0100 #### [facility] [address] [place], [address] Urea nitrogen [Mass/Vol] 46 mg/dL High 4-19 [facility] Comment on above: Performed By: #### L 500.4050, L501.5200, L501.2300, L100.0100 #### [facility] [address] [place], [address] Calcium [Mass/Vol] 9.0 mg/dL Normal 7.6-11.0 [facility] Comment on above: Performed By: #### L 100.0100, L500.2500 #### [facility] [address] [place], [address] Chloride [Moles/Vol] 106 mmol/L Normal 98-108 [facility] Comment on above: Performed By: #### L 100.0100, L500.2500 #### [facility] [address] [place], [address] CO2 [Moles/Vol] 6.5 mmol/L Invalid Interpretation Code 21.0-32.0 [facility] Comment on above: Result Comment: Crit ical Result(s) Called at: 2200 by: TIM DESHPANDE TO KERA MEIER??Results read back by same. Performed By: #### L 100.0100, L500.2500 #### [facility] [address] [place], [address] Creatinine [Mass/Vol] 3.02 mg/dL High 0.70-1.20 [facility] Comment on above: Performed By: #### L 100.0100, L500.2500 #### [facility] [address] [place], [address] ECRCL 32.34 ml/min Low 50-250 [facility] Comment on above: Performed By: #### L 100.0100, L500.2500 #### [facility] [address] [place], [address] GAP 16 High 5-15 [facility] Comment on above: Performed By: #### L 100.0100, L500.2500 #### [facility] [address] [place], [address] GFR/1.73 sq M.predicted among non-blacks MDRD (S/P/Bld) [Vol rate/Area] 24 mL/min/{1.73_m2} Low >60 [facility] Comment on above: Result Comment: mL/m in/1.73m2 CKD-EPI Creatinine Equation (2020) Performed By: #### L 100.0100, L500.2500 #### [facility] [address] [place], [address] Glucose [Mass/Vol] 115 mg/dL High 70-99 [facility] Comment on above: Performed By: #### L 100.0100, L500.2500 #### [facility] [address] [place], [address] Potassium [Moles/Vol] 3.7 mmol/L Normal 3.3-5.1 [facility] Comment on above: Result Comment: Hemo lysis present, Results??could be affected. ?? Performed By: #### L 100.0100, L500.2500 #### [facility] [address] [place], [address] Sodium [Moles/Vol] 128 mmol/L Low 133-145 [facility] Comment on above: Performed By: #### L 100.0100, L500.2500 #### [facility] [address] [place], [address] Urea nitrogen [Mass/Vol] 48 mg/dL High 4-19 [facility] Comment on above: Performed By: #### L 100.0100, L500.2500 #### [facility] [address] [place], [address] Basophil percentageOrdered B y: Iker Richards on 01-15-2025 Basophils/100 WBC (Bld) 0.2 % 0-1 [facility] CBC W/Diff, Automatedon 12-29 Absolute Lymph 0.67 X10 3/uL Low 0.83-4.51 [facility] Comment on above: Performed By: #### L 100.0100, L500.2500 #### [facility] [address] [place], [address] Absolute Neut 11.6 X10 3/uL High 2.0-7.7 [facility] Comment on above: Performed By: #### L 100.0100, L500.2500 #### [facility] [address] [place], [address] Basophils/100 WBC (Bld) 0.2 % Normal 0-1 [facility] Comment on above: Performed By: #### L 100.0100, L500.2500 #### [facility] [address] [place], [address] Eosinophils/100 WBC (Bld) 0.3 % Normal 0-5 [facility] Comment on above: Performed By: #### L 100.0100, L500.2500 #### [facility] [address] [facility] [place], [address] Erythrocyte distribution width (RBC) [Ratio] 15.9 % High 11.6-14.6 [facility] Comment on above: Performed By: #### L 100.0100, L500.2500 #### [facility] [address] [place], [address] Hematocrit (Bld) [Volume fraction] 35.2 % Low 40-54 [facility] Comment on above: Performed By: #### L 100.0100, L500.2500 #### [facility] [address] [place], [address] Hemoglobin (Bld) [Mass/Vol] 12.0 g/dL Low 13.0-16.5 [facility] Comment on above: Performed By: #### L 100.0100, L500.2500 #### [facility] [address] [place], [address] IG% 0.400 Normal 0.0-0.9 [facility] Comment on above: Result Comment: IG% - Immature Granulocytes (promyelocytes, myelocytes and metamyelocytes) > 1% indicates that a LEFT SHIFT is Present. Performed By: #### L 100.0100, L500.2500 #### [facility] [address] [place], [address] Lymphocytes/100 WBC (Bld) 4.9 % Low 19-41 [facility] Comment on above: Performed By: #### L 100.0100, L500.2500 #### [facility] [address] [place], [address] MCH (RBC) [Entitic mass] 31.9 pg Normal 27.0-32.0 [facility] Comment on above: Performed By: #### L 100.0100, L500.2500 #### [facility] [address] [place], [address] MCHC (RBC) [Mass/Vol] 34.1 g/dL Normal 32-36 [facility] Comment on above: Performed By: #### L 100.0100, L500.2500 #### [facility] [address] [place], [address] MCV (RBC) [Entitic vol] 93.6 fL Normal 80-94 [facility] Comment on above: Performed By: #### L 100.0100, L500.2500 #### [facility] [address] [place], [address] Monocytes/100 WBC (Bld) 9.5 % Normal 0-10 [facility] Comment on above: Performed By: #### L 100.0100, L500.2500 #### [facility] [address] [place], [address] Neutrophils/100 WBC (Bld) 84.7 % High 47-70 [facility] Comment on above: Performed By: #### L 100.0100, L500.2500 #### [facility] [address] [place], [address] Nucleated RBC (Bld) [#/Vol] 0.1 10*3/uL Normal 0-5 [facility] Comment on above: Performed By: #### L 100.0100, L500.2500 #### [facility] [address] [place], [address] Platelet mean volume (Bld) [Entitic vol] 8.8 fL Normal 6.2-12.0 [facility] Comment on above: Performed By: #### L 100.0100, L500.2500 #### [facility] [address] [place], [address] Platelets (Bld) [#/Vol] 344 10*3/uL Normal 150-450 [facility] Comment on above: Performed By: #### L 100.0100, L500.2500 #### [facility] [address] [place], [address] RBC (Bld) [#/Vol] 3.76 10*6/uL Low 4.6-6.2 [facility] Comment on above: Performed By: #### L 100.0100, L500.2500 #### [facility] [address] [place], [address] RDW SD 54.4 fl High 35.1-43.9 [facility] Comment on above: Performed By: #### L 100.0100, L500.2500 #### [facility] [address] [place], [address] WBC (Bld) [#/Vol] 13.7 10*3/uL High 4.4-11.0 [facility] Comment on above: Performed By: #### L 100.0100, L500.2500 #### [facility] [address] [place], [address] CNPNon 01-15-2025 CNPN Telephone (MELANIE) DOV BURROWS ([id number]) 1970 M Date Time Provider Department 01/15/25 NICOLASA DENISE During your visit today, we recorded the following information about you: Mary Gonzalez 01/15/2025 1:15 PM Signed Patient calling to say his output was 78 ouces over 24 hours. Please call him back after 230 p, when he get off work please Cleo Parekh, RN 01/15/2025 3:47 PM Signed Patient has questions of G2 vs full sugar gatorade. We discussed the following: Staying away from sugar drinks- choosing the diabetic/sugar alternatives will help. Limiting plain water. Increasing dosing of imodium and starting lomotil. Per Dr. Denise he wants him to present for fluids. Eat bulking foods not just liquids. Keep measuring output Regroup and touch base on Saturday. Allergies As of Date: 01/15/2025 (No Known Allergies) Date Reviewed: 12/21/2024 Reviewed by: Iseal Orozco MA - Fully Assessed Prescriptions as of 01/15/2025 - diphenoxylate-atropine (LOMOTIL) 2.5-0.025 mg per tablet Take 2 tablets by mouth every 6 hours as needed for diarrhea. - dicyclomine (BENTYL) 20 mg tablet Take 20 mg by mouth four times daily. - omeprazole (PRILOSEC) 20 mg capsule Take 1 capsule by mouth once daily. - buPROPion SR (WELLBUTRIN SR) 150 mg 12 hr tablet Take 1 tablet by mouth two times a day. - fluvoxaMINE ER (LUVOX CR) 150 mg capsule Take 1 capsule by mouth daily at bedtime. - loperamide (IMODIUM) 2 mg cap(s) Take 2 mg by mouth two times a day as needed. - ondansetron (ZOFRAN) 8 mg tablet Take 1 tablet by mouth every 12 hours as needed for nausea/vomiting. - CPAP Continue Auto PAP @ 5-20 cm of water with humidification. Mask (per patient preference) optional chin strap (if indicated) , filters, tubing, humidifier and lifetime supplies. AMBROSE G47.33 - ferrous sulfate 325 mg (65 mg iron) tablet Take 1 tablet by mouth every other day. - multivitamin tablet Take 1 tablet by mouth once daily. Problem List As Of Date 01/15/2025 Noted Resolved AMBROSE on CPAP [G47.33] 02/18/2006 Abnormal weight gain [R63.5] 02/18/2006 01/25/2015 MALAISE AND FATIGUE NEC [R53.81, R53.83] 02/18/2006 ANXIETY STATE NOS [F41.1] 02/18/2006 Hypercholesteremia <130 [E78.00] 02/18/2006 OVERWEIGHT [E66.9] 02/18/2006 01/25/2015 DEPRESSIVE DISORDER NEC [F32.89] 02/20/2008 Cellulitis and abscess of unspecified site [L03*07/04/2009 01/25/2015 Non-healing surgical wound [T81.89XA] 07/06/2009 01/25/2015 Other adjustment reaction with predominant dist*01/17/2011 01/25/2015 Non morbid obesity due to excess calories [E66.*02/07/2017 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6] 06/08/2022 06/27/2022 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 Carbon dioxide, total [Moles /volume] in Central venous bloodOrdered By: Iker Richards on 01-15-2025 CO2 [Moles/Vol] 7.1 mmol/L Low 21.0-32.0 [facility] Comment on above: Critical Result(s) C alled at: 2300 by: ANDREIA SIFUENTES TO DR. RICHARDS Results read back by same. Chloride assayOrdered By: Choco Richards on 01-15-2025 Chloride [Moles/Vol] 109 mmol/L High 98-108 [facility] Emergency Department Summary on 01-15-2025 Emergency Department Summary [facility] Medical Records Department [address] [place] [address] Emergency Department Summary 01/15/25 MR#: [id number] Acct: [id number] Name: DOV BURROWS Rep #: [id number] : 1970 54 From: Iker Richards DO PCP: Dr. Harjeet Bernard MD Status:REG ER Location: ED HPI History of Present Illness Chief Complaint: General Illness Narrative Narrative: Chief complaint and HPI: Dehydration/increased ileostomy output. 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 Patient states that he has been having increased ileostomy output since October. He got a hold of his surgeon Dr. Buenrostro at [facility]. He wanted the patient to present to the emergency department for some fluids and then follow-up in his office outpatient. Patient denies any fever, chills, shortness of breath, chest pain, nausea, vomiting, dysuria, abdominal pain. Review of systems: See HPI Medications: As listed on the chart Allergies: As listed on the chart PFSH: Per chart Vital signs: As listed on the chart. Reviewed. Physical exam: Gen: A O x3, NAD Head: Normocephalic, atraumatic Eyes: No sclera icterus, conjunctiva clear ENT: Dry mucous membranes Neck: Trachea midline, No JVD CV: RRR, no murmurs, no peripheral edema Resp: Lungs CTA BL, no w/r/c GI: Abd soft, non-distended, non-tender, no r/r/g, + ileostomy Musc: Full ROM, no deformity Skin: Warm, dry Neuro: Alert, oriented, grossly intact, sensation intact Psych: Cooperative, appropriate mood and affect PFS PFS Medical History Cancer of appendix Ileostomy present Acute appendicitis Home Medications ???Medication ???Instructions ???Recorded ???Last Taken ???Type bupropion HCl 150 mg tablet,12 hr 150 mg PO DAILY 05/04/24 12/15/24 History sustained-release fluvoxamine 150 mg 150 mg PO DAILY 05/04/24 12/15/24 History capsule,extended release 24 hr ondansetron 8 mg disintegrating 8 mg PO Q8H PRN nausea and 4 Unknown Rx tablet vomiting #20 tabs omeprazole 20 mg capsule,delayed 20 mg PO DAILY 11/26/24 12/15/24 H istory release psyllium husk (aspartame) 3 gram 1 packet PO TID #54 ea 11/29/24 Rx oral powder packet (Daily Fiber (psyllium-aspartame)) dicyclomine 20 mg tablet 20 mg PO .QID PRN diarrhea #20 tab s 12/16/24 Unknown Rx diphenoxylate-atropine 2.5 2 tab PO Q6H PRN diarrhea #30 tabs 12/16/24 Unknown Rx mg-0.025 mg tablet (Lomotil) Allergy/AdvReac Type Severity Reaction Status Date / Time No Known Allergies Allergy Verified 01/15/25 19:27 Family History (Updated 11/26/24 @ 18:[address] Ibrahima Doan DO) Other VTE (venous thromboembolism) Surgical History S/P splenectomy H/O colectomy Social History household members: spouse housing: house Smoking Status: Never smoker EXAM Physical Exam Const Vital Signs: 01/15/25 19:26 01/15/25 20:54 01/15/25 21:04 Temperature 98.2 F Temperature Source Oral Pulse Rate 95 81 Respiratory Rate 18 18 Respiratory Effort Normal Non-Labored Respiratory Pattern Normal Blood Pressure 117/78 118/81 H Blood Pressure Mean 91 93 Pulse Ox 98 97 Oxygen Delivery Method Room Air Room Air MDM MDM MDM Narrative Medical decision making narrative: 54-year-old male with 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 Patient states that he has been having increased ileostomy output since October. He got a hold of his surgeon Dr. Buenrostro at [facility]. He wanted the patient to present to the emergency department for some fluids and then follow-up in his office outpatient. Patient denies any infectious type symptoms or abdominal pain. He is clinically dehydrated on exam. Differential diagnosis includes but is not limited to dehydration, [place], electrolyte abnormality. 2 L NS bolus ordered with CBC and BMP. I do not think any imaging or further workup is needed at this time. CBC shows leukocytosis of 13.7. Patient has baseline anemia at 12. BMP shows dehydration with hyponatremia 128, [place] with creatinine of 3.02. On chart review, patient's baseline is around 2. His bicarb is 6.5. Will repeat BMP to make sure if this is accurate. Repeat BMP again shows hyponatremia however improved at 130. Bicarb slightly improved at 7.1. Creatinine slightly improved at 2.93. Patient will warrant admission for continued fluid hydration. He was updated of a (more content not included)... Normal [facility] Eosinophil percentageOrdered By: Iker Richards on 01-15-2025 Eosinophils/100 WBC (Bld) 0.3 % 0-5 [facility] Erythrocyte distribution wid th (RBC) [Ratio]Ordered By: Ikerabe Richards on 01-15-2025 Erythrocyte distribution width (RBC) [Entitic vol] 54.4 fL High 35.1-43.9 [facility] Erythrocyte distribution wid th ratioOrdered By: [place] Joseadvanced [facility] hospital of southern new mexicoObey on 01-15-2025 Erythrocyte distribution width (RBC) [Ratio] 15.9 % High 11.6-14.6 [facility] Estimation of creatinine emma aranceOrdered By: Iker Richards on 01-15-2025 Estimated Creatinine Clearance Calc 33.33 ml/min Low 50-250 [facility] GFR/1.73 sq M.predicted jaime g non-blacks MDRD (S/P/Bld) [Vol rate/Area]Ordered By: Iker Richards on 01-15-2025 Estimated GFR (MDRD) Non-Af Amer 25 Low >60 [facility] Comment on above: mL/min/1.73m2 CKD-EP I Creatinine Equation (2020) Hematocrit Auto (Bld) [Volum e fraction]Ordered By: Iker Richards on 01-15-2025 Hematocrit (Bld) [Volume fraction] 35.2 % Low 40-54 [facility] Hemoglobin measurementOrdere d By: Iker Richards on 01-15-2025 Hemoglobin (Bld) [Mass/Vol] 12.0 g/dL Low 13.0-16.5 [facility] Immature granulocytes/100 WB C Auto (Bld)Ordered By: Iker Richards on 01-15-2025 Immature granulocytes/100 WBC (Bld) 0.400 % 0.0-0.9 [facility] Comment on above: IG% - Immature Granu locytes (promyelocytes, myelocytes and metamyelocytes) > 1% indicates that a LEFT SHIFT is Present. Lymphocytes Auto (Unsp spec) [#/Vol]Ordered By: Iker Richards on 01-15-2025 Lymphocytes (Bld) [#/Vol] 0.67 10*3/uL Low 0.83-4.51 [facility] Lymphocytes/100 WBC Auto (Un sp spec)Ordered By: Iker Richards on 01-15-2025 Lymphocytes/100 WBC (Bld) 4.9 % Low 19-41 [facility] MCV (mean corpuscular volume ) determinationOrdered By: Iker Richards on 01-15-2025 MCV (RBC) [Entitic vol] 93.6 fL 80-94 [facility] Mean corpuscular hemoglobin (MCH) determinationOrdered By: Iker Richards on 01-15-2025 MCH (RBC) [Entitic mass] 31.9 pg 27.0-32.0 [facility] Mean corpuscular hemoglobin concentration (MCHC) determinationOrdered By: Iker Richards on 01-15-2025 MCHC (RBC) [Mass/Vol] 34.1 g/dL 32-36 [facility] Mean platelet volume determi nationOrdered By: Iker Richards on 01-15-2025 Platelet mean volume (Bld) [Entitic vol] 8.8 fL 6.2-12.0 [facility] Monocyte percentageOrdered B y: Iker Richards on 01-15-2025 Monocytes/100 WBC (Bld) 9.5 % 0-10 [facility] Neutrophil percentageOrdered By: Iker Richards on 01-15-2025 Neutrophils/100 WBC (Bld) 84.7 % High 47-70 [facility] Nucleated red blood cell per centageOrdered By: Iker Richards on 01-15-2025 Nucleated RBC/100 WBC (Bld) [Ratio] 0.1 % 0-5 [facility] Platelet countOrdered By: Choco Richards on 01-15-2025 Platelets (Bld) [#/Vol] 344 10*3/uL 150-450 [facility] Potassium (Unsp spec) [Mass/ Vol]Ordered By: Iker Richards on 01-15-2025 Potassium [Moles/Vol] 4.2 mmol/L 3.3-5.1 [facility] Comment on above: Hemolysis present, R esults could be affected. RBC Auto (Bld) [#/Vol]Ordere d By: Iker Richards on 01-15-2025 RBC (Bld) [#/Vol] 3.76 10*6/uL Low 4.6-6.2 [facility] Serum creatinine measurement (mass/volume)Ordered By: Iker Richards on 01-15-2025 Creatinine [Mass/Vol] 2.93 mg/dL High 0.70-1.20 [facility] Serum glucose measurement (m ass/volume)Ordered By: Iker Richards on 01-15-2025 Glucose [Mass/Vol] 116 mg/dL High 70-99 [facility] Serum or plasma calcium tran urement (mass/volume)Ordered By: Iker Love on 01-15-2025 Calcium [Mass/Vol] 8.6 mg/dL 7.6-11.0 [facility] Serum or plasma urea nitroge n measurement (mass/volume)Ordered By: Iker Richards on 01-15-2025 Urea nitrogen [Mass/Vol] 46 mg/dL High 4-19 [facility] Sodium levelOrdered By: Vaibhav edward Susie on 01-15-2025 Sodium [Moles/Vol] 130 mmol/L Low 133-145 [facility] White blood cell (WBC) count Ordered By: Iker Richards on 01-15-2025 WBC (Bld) [#/Vol] 13.7 10*3/uL High 4.4-11.0 [facility] CNPNon 01-14-2025 CNPN Telephone ([facility]SM[facility]) FIRST,DOV Zepeda ([id number]) 1970 M Date Time Provider Department 01/14/25 NICOLASA DENISE During your visit today, we recorded the following information about you: Cleo Parekh RN 01/14/2025 10:54 AM Signed [facility] regarding mychart message. Requested a call back to discuss symptoms/output. Cleo Parekh RN 01/14/2025 3:21 PM Signed Patient is taking fiber, and imodium not consistently. He will measure output for 24 hours and let us know. He claims his output is pure liquid- he does endorse drinking a lot of fluids which he knows may contribute to his high output. He is taking about 3-4 tabs of imodium a day. I recommended the rest of today taking 2 before dinner and 2 before bed. Heavy on the electrolyte fluids not plain water. Also told him to max dosing of imodium starting now. Will update Dr. Denise and make sure he knows the updated info. Allergies As of Date: 01/14/2025 (No Known Allergies) Date Reviewed: 12/21/2024 Reviewed by: Isela Orozco MA - Fully Assessed Reason for Visit: Patient Update [3564] Prescriptions as of 01/14/2025 - diphenoxylate-atropine (LOMOTIL) 2.5-0.025 mg per tablet Take 2 tablets by mouth every 6 hours as needed for diarrhea. - dicyclomine (BENTYL) 20 mg tablet Take 20 mg by mouth four times daily. - omeprazole (PRILOSEC) 20 mg capsule Take 1 capsule by mouth once daily. - buPROPion SR (WELLBUTRIN SR) 150 mg 12 hr tablet Take 1 tablet by mouth two times a day. - fluvoxaMINE ER (LUVOX CR) 150 mg capsule Take 1 capsule by mouth daily at bedtime. - loperamide (IMODIUM) 2 mg cap(s) Take 2 mg by mouth two times a day as needed. - ondansetron (ZOFRAN) 8 mg tablet Take 1 tablet by mouth every 12 hours as needed for nausea/vomiting. - CPAP Continue Auto PAP @ 5-20 cm of water with humidification. Mask (per patient preference) optional chin strap (if indicated) , filters, tubing, humidifier and lifetime supplies. AMBROSE G47.33 - ferrous sulfate 325 mg (65 mg iron) tablet Take 1 tablet by mouth every other day. - multivitamin tablet Take 1 tablet by mouth once daily. Problem List As Of Date 01/14/2025 Noted Resolved AMBROSE on CPAP [G47.33] 02/18/2006 Abnormal weight gain [R63.5] 02/18/2006 01/25/2015 MALAISE AND FATIGUE NEC [R53.81, R53.83] 02/18/2006 ANXIETY STATE NOS [F41.1] 02/18/2006 Hypercholesteremia <130 [E78.00] 02/18/2006 OVERWEIGHT [E66.9] 02/18/2006 01/25/2015 DEPRESSIVE DISORDER NEC [F32.89] 02/20/2008 Cellulitis and abscess of unspecified site [L03*07/04/2009 01/25/2015 Non-healing surgical wound [T81.89XA] 07/06/2009 01/25/2015 Other adjustment reaction with predominant dist*01/17/2011 01/25/2015 Non morbid obesity due to excess calories [E66.*02/07/2017 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6] 06/08/2022 06/27/2022 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 Basic metabolic 2000 panelon 01-11-2025 Anion gap [Moles/Vol] 13 mmol/L Normal 8-15 [facility] Comment on above: Order Comment: Speci men Type: BLOOD SPECIMEN Ordering Facility: [facility] Address: [address] [place] [address] Performed By: #### 2 4323-8, 14887-0 #### [facility] CLIA [id number] [address] [place] [address] [place] Calcium [Mass/Vol] 9.7 mg/dL Normal 8.5-10.2 [facility] Comment on above: Order Comment: Speci men Type: BLOOD SPECIMEN Ordering Facility: [facility] Address: [address] [place] [address] Performed By: #### 2 4323-8, 82229-7 #### [facility] CLIA [id number] [address] [place] [address] [place] Chloride [Moles/Vol] 107 mmol/L Normal 98-107 [facility] Comment on above: Order Comment: Speci men Type: BLOOD SPECIMEN Ordering Facility: [facility] Address: [address] [place] [address] Performed By: #### 2 4323-8, 15373-8 #### [facility] CLIA [id number] [address] [place] [address] [place] CO2 [Moles/Vol] 11 mmol/L Low 22-30 [facility] Comment on above: Order Comment: Speci men Type: BLOOD SPECIMEN Ordering Facility: [facility] Address: [address] [place] [address] Performed By: #### 2 4323-8, 20693-7 #### [facility] CLIA [id number] [address] [place] [address] [place] Creatinine [Mass/Vol] 3.01 mg/dL High 0.73-1.22 [facility] Comment on above: Order Comment: Speci men Type: BLOOD SPECIMEN Ordering Facility: [facility] Address: [address] [place] [address] Performed By: #### 2 4323-8, 08321-1 #### [facility] CLIA [id number] [address] [place] [address] [place] Creatinine and Glomerular filtration rate.predicted panel (S/P/Bld) 24 mL/min/1.73m??? Low >=60 [facility] Comment on above: Order Comment: Speci men Type: BLOOD SPECIMEN Ordering Facility: [facility] Address: [address] [place] [address] Result Comment: Marlen mated Glomerular Filtration Rate (eGFR) is calculated using the 2020 CKD-EPI creatinine equation. This equation utilizes serum creatinine, sex, and age as parameters. The creatinine assay has traceable calibration to isotope dilution-mass spectrometry. Refer to KDIGO guidelines for clinical interpretation. In patients with unstable renal function, e.g. those with acute kidney injury, the eGFR may not accurately reflect actual GFR. Performed By: #### 2 4323-8, 39970-5 #### [facility] CLIA [id number] [address] [address] [place] Glucose [Mass/Vol] 90 mg/dL Normal 74-99 [facility] Comment on above: Order Comment: Rose summers Type: BLOOD SPECIMEN Ordering Facility: [facility] Address: [address] [place] [address] Result Comment: The [place] Diabetes Association (ADA) provides guidance for cutoff values for fasting glucose and random glucose. The ADA defines fasting as no caloric intake for at least 8 hours. Fasting plasma glucose results between 100 to 125 mg/dL indicate increased risk for diabetes (prediabetes). Fasting plasma glucose results greater than or equal to 126 mg/dL meet the criteria for diagnosis of diabetes. In the absence of unequivocal hyperglycemia, results should be confirmed by repeat testing. In a patient with classic symptoms of hyperglycemia or hyperglycemic crisis, random plasma glucose results greater than or equal to 200 mg/dL meet the criteria for diagnosis of diabetes. Reference: Standards of Medical Care in Diabetes 2016, [place] Diabetes Association. Diabetes Care. 2016.39(Suppl 1). Performed By: #### 2 4323-8, 49533-6 #### [facility] CLIA [id number] [address] [place], [place] [address] [place] Potassium [Moles/Vol] 4.1 mmol/L Normal 3.7-5.1 [facility] Comment on above: Order Comment: Rose summers Type: BLOOD SPECIMEN Ordering Facility: [facility] Address: [address] [place] [address] Performed By: #### 2 4323-8, #### [facility] CLIA [id number] [address] [place] [address] [place] Sodium [Moles/Vol] 131 mmol/L Low 136-144 [facility] Comment on above: Order Comment: Speci men Type: BLOOD SPECIMEN Ordering Facility: [facility] Address: [address] [place] [address] Performed By: #### 2 4323-8, 17337-1 #### [facility] CLIA [id number] [address] [place] [address] [place] Urea nitrogen [Mass/Vol] 40 mg/dL High 9-24 [facility] Comment on above: Order Comment: Speci men Type: BLOOD SPECIMEN Ordering Facility: [facility] Address: [address] [place] [address] Performed By: #### 2 4323-8, 61799-5 #### [facility] CLIA [id number] [address] [place] [address] [place] Basic metabolic 2000 panelon 01-04-2025 Anion gap [Moles/Vol] 13 mmol/L Normal 8-15 [facility] Comment on above: Order Comment: Speci men Type: BLOOD SPECIMEN Ordering Facility: [facility] Address: [address] [place] [address] Performed By: #### 2 4323-8, 74466-0 #### [facility] CLIA [id number] [address] [place] [address] [place] Calcium [Mass/Vol] 8.9 mg/dL Normal 8.5-10.2 [facility] Comment on above: Order Comment: Speci men Type: BLOOD SPECIMEN Ordering Facility: [facility] Address: [address] [place] [id number] Performed By: #### 2 4323-8, 10818-9 #### [facility] CLIA [id number] [address] [place] [address] [place] Chloride [Moles/Vol] 111 mmol/L High 98-107 [facility] Comment on above: Order Comment: Speci men Type: BLOOD SPECIMEN Ordering Facility: [facility] Address: [address] [place] [address] Performed By: #### 2 4323-8, 79077-4 #### [facility] CLIA [id number] [address] [place] [address] [place] CO2 [Moles/Vol] 11 mmol/L Low 22-30 [facility] Comment on above: Order Comment: Speci men Type: BLOOD SPECIMEN Ordering Facility: [facility] Address: [address] [place] [address] Performed By: #### 2 4323-8, 96295-7 #### [facility] CLIA [id number] [address] [place] [address] [place] Creatinine [Mass/Vol] 2.47 mg/dL High 0.73-1.22 [facility] Comment on above: Order Comment: Speci men Type: BLOOD SPECIMEN Ordering Facility: [facility] Address: [address] [place] [address] Performed By: #### 2 4323-8, 46311-2 #### [facility] CLIA [id number] [address] [place] [address] [place] Creatinine and Glomerular filtration rate.predicted panel (S/P/Bld) 31 mL/min/1.73m??? Low >=60 [facility] Comment on above: Order Comment: Speci men Type: BLOOD SPECIMEN Ordering Facility: [facility] Address: [address] [place] [address] Result Comment: Marlen mated Glomerular Filtration Rate (eGFR) is calculated using the 2020 CKD-EPI creatinine equation. This equation utilizes serum creatinine, sex, and age as parameters. The creatinine assay has traceable calibration to isotope dilution-mass spectrometry. Refer to KDIGO guidelines for clinical interpretation. In patients with unstable renal function, e.g. those with acute kidney injury, the eGFR may not accurately reflect actual GFR. Performed By: #### 2 4323-8, 77890-6 #### [facility] CLIA [id number] [address] [place] [address] [place] Glucose [Mass/Vol] 110 mg/dL High 74-99 [facility] Comment on above: Order Comment: Speci men Type: BLOOD SPECIMEN Ordering Facility: [facility] Address: [address] [place] [address] Result Comment: The [place] Diabetes Association (ADA) provides guidance for cutoff values for fasting glucose and random glucose. The ADA defines fasting as no caloric intake for at least 8 hours. Fasting plasma glucose results between 100 to 125 mg/dL indicate increased risk for diabetes (prediabetes). Fasting plasma glucose results greater than or equal to 126 mg/dL meet the criteria for diagnosis of diabetes. In the absence of unequivocal hyperglycemia, results should be confirmed by repeat testing. In a patient with classic symptoms of hyperglycemia or hyperglycemic crisis, random plasma glucose results greater than or equal to 200 mg/dL meet the criteria for diagnosis of diabetes. Reference: Standards of Medical Care in Diabetes 2016, [place] Diabetes Association. Diabetes Care. 2016.39(Suppl 1). Performed By: #### 2 4323-8, 06689-0 #### [facility] CLIA [id number] [address] [place] [address] [place] Potassium [Moles/Vol] 3.7 mmol/L Normal 3.7-5.1 [facility] Comment on above: Order Comment: Rose summers Type: BLOOD SPECIMEN Ordering Facility: [facility] Address: [address] [place] [address] Performed By: #### 2 4323-8, 33311-4 #### [facility] CLIA [id number] [address] [place] [address] [place] Sodium [Moles/Vol] 135 mmol/L Low 136-144 [facility] Comment on above: Order Comment: Speci men Type: BLOOD SPECIMEN Ordering Facility: [facility] Address: [address] [place] [address] Performed By: #### 2 4323-8, 15254-5 #### [facility] CLIA [id number] [address] [place] [address] [place] Urea nitrogen [Mass/Vol] 34 mg/dL High 9-24 [facility] Comment on above: Order Comment: Speci men Type: BLOOD SPECIMEN Ordering Facility: [facility] Address: [address] [place] [address] Performed By: #### 2 4323-8, 35313-8 #### [facility] CLIA [id number] [address] [place] [address] [place] Basic metabolic 2000 panelon 12-28-2024 Anion gap [Moles/Vol] 13 mmol/L Normal 8-15 [facility] Comment on above: Order Comment: Speci men Type: BLOOD SPECIMENOrdering Facility: [facility] Address: [address] [place] [address] Performed By: #### 2 4321-2 ####[facility] [id number] [place] [address] [place] Calcium [Mass/Vol] 9.1 mg/dL Normal 8.5-10.2 [facility] Comment on above: Order Comment: Speci men Type: BLOOD SPECIMENOrdering Facility: [facility] Address: [address] [place] [address] Performed By: #### 2 4321-2 ####[facility] [id number] [place] [address] [place] Chloride [Moles/Vol] 108 mmol/L High 98-107 [facility] Comment on above: Order Comment: Speci men Type: BLOOD SPECIMENOrdering Facility: [facility] Address: [address] [place] [address] Performed By: #### 2 4321-2 ####[facility] [id number] [place] [id number] [place] CO2 [Moles/Vol] 12 mmol/L Low 22-30 [facility] Comment on above: Order Comment: Speci men Type: BLOOD SPECIMENOrdering Facility: [facility] Address: [address] [place] [id number] Performed By: #### 2 4321-2 ####[facility] [id number] [place] [id number] [place] Creatinine [Mass/Vol] 2.76 mg/dL High 0.73-1.22 [facility] Comment on above: Order Comment: Speci men Type: BLOOD SPECIMENOrdering Facility: [facility] Address: [address] [place] [address] Performed By: #### 2 4321-2 ####[facility] [id number] [place] [address] [place] Creatinine and Glomerular filtration rate.predicted panel (S/P/Bld) 27 mL/min/1.73m??? Low >=60 [facility] Comment on above: Order Comment: Rafaeli men Type: BLOOD SPECIMENOrdering Facility: [facility] Address: [address] [place] [address] Result Comment: Marlen mated Glomerular Filtration Rate (eGFR) is calculated using the 2020 CKD-EPI creatinine equation. This equation utilizes serum creatinine, sex, and age as parameters. The creatinine assay has traceable calibration to isotope dilution-mass spectrometry. Refer to KDIGO guidelines for clinical interpretation. In patients with unstable renal function, e.g. those with acute kidney injury, the eGFR may not accurately reflect actual GFR. Performed By: #### 2 4321-2 ####[facility] [id number] [place] [id number] [place] Glucose [Mass/Vol] 91 mg/dL Normal 74-99 [facility] Comment on above: Order Comment: Rafaeli men Type: BLOOD SPECIMENOrdering Facility: [facility] Address: [address] [place] [address] Result Comment: The [place] Diabetes Association (ADA) provides guidance for cutoff values for fasting glucose and random glucose. The ADA defines fasting as no caloric intake for at least 8 hours. Fasting plasma glucose results between 100 to 125 mg/dL indicate increased risk for diabetes (prediabetes). Fasting plasma glucose results greater than or equal to 126 mg/dL meet the criteria for diagnosis of diabetes. In the absence of unequivocal hyperglycemia, results should be confirmed by repeat testing. In a patient with classic symptoms of hyperglycemia or hyperglycemic crisis, random plasma glucose results greater than or equal to 200 mg/dL meet the criteria for diagnosis of diabetes. Reference: Standards of Medical Care in Diabetes 2016, [place] Diabetes Association. Diabetes Care. 2016.39(Suppl 1). Performed By: #### 2 4321-2 ####[facility] [id number] [place] [address] [place] Potassium [Moles/Vol] 3.2 mmol/L Low 3.7-5.1 [facility] Comment on above: Order Comment: Speci men Type: BLOOD SPECIMENOrdering Facility: [facility] Address: [address] [place] [address] Performed By: #### 2 4321-2 ####[facility] [id number] [place] [id number] [place] Sodium [Moles/Vol] 133 mmol/L Low 136-144 [facility] Comment on above: Order Comment: Speci men Type: BLOOD SPECIMENOrdering Facility: [facility] Address: [address] [place] [address] Performed By: #### 2 4321-2 ####[facility] [id number] [place] [id number] [place] Urea nitrogen [Mass/Vol] 43 mg/dL High 9-24 [facility] Comment on above: Order Comment: Speci men Type: BLOOD SPECIMENOrdering Facility: [facility] Address: [address] [place] [address] Performed By: #### 2 4321-2 ####[facility] [id number] [address] [address] [place] Basic metabolic 2000 panelon 12-21-2024 Anion gap [Moles/Vol] 13 mmol/L Normal 8-15 [facility] Comment on above: Order Comment: Speci men Type: BLOOD SPECIMENOrdering Facility: [facility] Address: [address] [place] [address] Performed By: #### 2 4321-2 ####[facility] [id number] [facility] [address] [address] [place] Calcium [Mass/Vol] 10.4 mg/dL High 8.5-10.2 [facility] Comment on above: Order Comment: Speci men Type: BLOOD SPECIMENOrdering Facility: [facility] Address: [address] [place] [address] Performed By: #### 2 4321-2 ####[facility] [id number] [facility] [place] [id number] [place] Chloride [Moles/Vol] 105 mmol/L Normal 98-107 [facility] Comment on above: Order Comment: Speci men Type: BLOOD SPECIMENOrdering Facility: [facility] Address: [address] [place] [address] Performed By: #### 2 4321-2 ####[facility] [id number] [place] [id number] [place] CO2 [Moles/Vol] 10 mmol/L Low 22-30 [facility] Comment on above: Order Comment: Speci men Type: BLOOD SPECIMENOrdering Facility: [facility] Address: [address] [place] [address] Performed By: #### 2 4321-2 ####[facility] [id number] [place] [id number] [place] Creatinine [Mass/Vol] 2.90 mg/dL High 0.73-1.22 [facility] Comment on above: Order Comment: Speci men Type: BLOOD SPECIMENOrdering Facility: [facility] Address: [address] [place] [address] Performed By: #### 2 4321-2 ####[facility] [id number] [place] [address] [place] Creatinine and Glomerular filtration rate.predicted panel (S/P/Bld) 25 mL/min/1.73m??? Low >=60 [facility] Comment on above: Order Comment: Rose summers Type: BLOOD SPECIMENOrdering Facility: [facility] Address: [address] [place] [address] Result Comment: Marlen mated Glomerular Filtration Rate (eGFR) is calculated using the 2020 CKD-EPI creatinine equation. This equation utilizes serum creatinine, sex, and age as parameters. The creatinine assay has traceable calibration to isotope dilution-mass spectrometry. Refer to KDIGO guidelines for clinical interpretation. In patients with unstable renal function, e.g. those with acute kidney injury, the eGFR may not accurately reflect actual GFR. Performed By: #### 2 4321-2 ####[facility] [id number] [place] [address] [place] Glucose [Mass/Vol] 102 mg/dL High 74-99 [facility] Comment on above: Order Comment: Rose summers Type: BLOOD SPECIMENOrdering Facility: [facility] Address: [address] [place] [address] Result Comment: The [place] Diabetes Association (ADA) provides guidance for cutoff values for fasting glucose and random glucose. The ADA defines fasting as no caloric intake for at least 8 hours. Fasting plasma glucose results between 100 to 125 mg/dL indicate increased risk for diabetes (prediabetes). Fasting plasma glucose results greater than or equal to 126 mg/dL meet the criteria for diagnosis of diabetes. In the absence of unequivocal hyperglycemia, results should be confirmed by repeat testing. In a patient with classic symptoms of hyperglycemia or hyperglycemic crisis, random plasma glucose results greater than or equal to 200 mg/dL meet the criteria for diagnosis of diabetes. Reference: Standards of Medical Care in Diabetes 2016, [place] Diabetes [employer]. Diabetes Care. 2016.39(Suppl 1). Performed By: #### 2 4321-2 ####[facility] [id number] [place] [id number] [place] Potassium [Moles/Vol] 4.4 mmol/L Normal 3.7-5.1 [facility] Comment on above: Order Comment: Speci men Type: BLOOD SPECIMENOrdering Facility: [facility] Address: [address] [place] [address] Performed By: #### 2 4321-2 ####[facility] LABCLIA [id number] [place] [address] [place] Sodium [Moles/Vol] 128 mmol/L Low 136-144 [facility] Comment on above: Order Comment: Speci men Type: BLOOD SPECIMENOrdering Facility: [facility] Address: [address] [place] [address] Performed By: #### 2 4321-2 ####[facility] LABCLIA [id number] [place] [address] [place] Urea nitrogen [Mass/Vol] 42 mg/dL High 9-24 [facility] Comment on above: Order Comment: Speci men Type: BLOOD SPECIMENOrdering Facility: [facility] Address: [address] [place] [address] Performed By: #### 2 4321-2 ####[facility] LABCLIA [id number] [place] [id number] [place] CNOVon 12-21-2024 CNOV Office Visit (INTMWS ) DOV BURROWS ([id number]) 1970 M Date Time Provider Department 12/21/24 2:40 PM HARJEET BERNARD INTMWS During your visit today, we recorded the following information about you: Pulse Respiration Blood pressure Weight 103/minute 16/minute 104/75 92.9 kg Harjeet Bernard MD 12/21/2024 7:51 PM Signed This note was created using [employer]. Subjective Dov Burrows is a 54 year old male. Patient presents with: F/U 6 Month SUBJECTIVE: Dov Burrows is a 54 year old year old gentleman here today for 6 month follow up appointment for review of medical conditions. Triny is a 54-year-old male with a history of a total colectomy, presenting for a 6-month follow-up visit. Triny reports a recent hospitalization from 11/27 to 11/29 due to dehydration and acute kidney injury. He initially presented to the ER with flu-like symptoms, fatigue, and emesis, and was admitted for IV fluid treatment. He was discharged on 11/29, but has since experienced recurrent dehydration, necessitating multiple ER visits for IV fluids. He attributes his dehydration to increased ostomy output, which he describes as dumping like water. He has been attempting to maintain hydration by drinking approximately 100 ounces of fluids daily, including water, Powerade, and Liquid IV, and taking 4 electrolyte tablets daily. He also uses Metamucil BID to slow ostomy output. Despite these efforts, he continues to experience high ostomy output and frequent gas, which disrupts his sleep. He has been using Gas-X intermittently, but reports inconsistent relief. He denies current symptoms of dehydration, such as lightheadedness or dizziness, and is not actively monitoring his weight. He also reports a decreased appetite and occasional reluctance to eat. He is currently taking Protonix and Lomotil, and has a supply of ondansetron for nausea. He denies any symptoms of heartburn or reflux. He has a virtual follow-up appointment with his surgeon, Dr. Denise, on 12/28. Noted that his family is very involved in taking care of his medical issues. They made him go to the hospital to be evaluated both times and each time needed admitted. List of questions from daughter was brought in to go through--questions answered to his satisfaction. 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 dicyclomine (BENTYL) 20 mg tablet Take 20 mg by mouth four times daily. loperamide (IMODIUM) 2 mg cap(s) Take 2 mg by mouth two times a day as needed. omeprazole (PRILOSEC) 20 mg capsule Take 1 capsule by mouth once daily. ondansetron (ZOFRAN) 8 mg tablet Take 1 tablet by mouth every 12 hours as needed for nausea/vomiting. fluvoxaMINE ER (LUVOX CR) 150 mg capsule Take 1 capsule by mouth daily at bedtime. CPAP Continue Auto PAP @ 5-20 cm of water with humidification. Mask (per patient preference) optional chin strap (if indicated) , filters, tubing, humidifier and lifetime supplies. AMBROSE G47.33 buPROPion SR (WELLBUTRIN SR) 150 mg 12 hr tablet Take 1 tablet by mouth two times a day. ferrous sulfate 325 mg (65 mg iron) tablet Take 1 tablet by mouth every other day. multivitamin tablet Take 1 tablet by mouth once daily. ondansetron orally disintegrating (ZOFRAN ODT) 8 mg disintegrating tablet Take 8 mg by mouth every 8 hours as needed. (Patient not taking: Reported on 12/21/2024) potassium chloride 20 mEq TbER Take 20 mEq by mouth once daily. (Patient not taking: Reported on 12/21/2024) omeprazole (PRILOSEC) 20 mg capsule Take 1 capsule by mouth once daily. (Patient not taking: Reported on 12/04/2024) No current facility-administered medications for this visit. Review of Systems Objective BP 104/75 Pulse 103 Resp 16 Wt 92.9 kg (204 lb 12.9 oz) SpO2 97% BMI 27.02 kg/m? Last 5 Encounter Wt Readings: Date: Wt: 12/21/2024 92.9 kg (204 lb 12.9 oz) 12/04/2024 95 kg (209 lb 7 oz) 06/15/2024 100.7 kg (222 lb) 05/15/2024 105.6 kg (232 lb 12.9 oz) 10/08/2023 115.7 kg (255 lb) No waist measurement recorded Estimated body mass index is 27.02 kg/m? as calculated from the following: Height as of 06/15/24: 185.4 cm (6' 1). Weight as of this encounter: 92.9 kg (204 lb 12.9 oz). Last 5 Encounter BP Readings: Date: BP: 12/21/2024 104/75 12/04/2024 106/71 05/15/2024 102/62 10/08/2023 109/70 04/05/2023 118/84 Physical Exam Vitals reviewed. Constitutional: Appearance: Normal appearance. Eyes: Conjunctiva/sclera: Conjunctivae normal. Cardiovascular: Rate and Rhythm: Normal rate and regul (more content not included)... Normal [facility] CNPNon 12-17-2024 CNPN Telephone (INTMWS) FIRST,DOV Zepeda ([id number]) 1970 M Date Time Provider Department 12/17/24 HARJEET BERNARD INTMWS During your visit today, we recorded the following information about you: Madisyn Barraza, RN 12/17/2024 10:40 AM Signed Aishwarya Director Dermatology with [facility] called to reports that the Pt has an RN Health Software Quality Engineer through [place] [employer] Hany Pizano (female) ph. [phone]. She wanted to give provider this information in case she would need it. Put the information under the comment section under the Pt information. Allergies As of Date: 12/17/2024 (No Known Allergies) Date Reviewed: 12/04/2024 Reviewed by: Zhanna Wagner LPN - Fully Assessed Reason for Visit: Patient Update [1234] Cmt: Called Prescriptions as of 12/17/2024 - loperamide (IMODIUM) 2 mg cap(s) Take 2 mg by mouth two times a day as needed. - ondansetron orally disintegrating (ZOFRAN ODT) 8 mg disintegrating tablet Take 8 mg by mouth every 8 hours as needed. - potassium chloride 20 mEq TbER Take 20 mEq by mouth once daily. - omeprazole (PRILOSEC) 20 mg capsule Take 1 capsule by mouth once daily. - ondansetron (ZOFRAN) 8 mg tablet Take 1 tablet by mouth every 12 hours as needed for nausea/vomiting. - omeprazole (PRILOSEC) 20 mg capsule Take 1 capsule by mouth once daily. - fluvoxaMINE ER (LUVOX CR) 150 mg capsule Take 1 capsule by mouth daily at bedtime. - CPAP Continue Auto PAP @ 5-20 cm of water with humidification. Mask (per patient preference) optional chin strap (if indicated) , filters, tubing, humidifier and lifetime supplies. AMBROSE G47.33 - buPROPion SR (WELLBUTRIN SR) 150 mg 12 hr tablet Take 1 tablet by mouth two times a day. - ferrous sulfate 325 mg (65 mg iron) tablet Take 1 tablet by mouth every other day. - multivitamin tablet Take 1 tablet by mouth once daily. Problem List As Of Date 12/17/2024 Noted Resolved AMBROSE on CPAP [G47.33] 02/18/2006 Abnormal weight gain [R63.5] 02/18/2006 01/25/2015 MALAISE AND FATIGUE NEC [R53.81, R53.83] 02/18/2006 ANXIETY STATE NOS [F41.1] 02/18/2006 Hypercholesteremia <130 [E78.00] 02/18/2006 OVERWEIGHT [E66.9] 02/18/2006 01/25/2015 DEPRESSIVE DISORDER NEC [F32.89] 02/20/2008 Cellulitis and abscess of unspecified site [L03*07/04/2009 01/25/2015 Non-healing surgical wound [T81.89XA] 07/06/2009 01/25/2015 Other adjustment reaction with predominant dist*01/17/2011 01/25/2015 Non morbid obesity due to excess calories [E66.*02/07/2017 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6] 06/08/2022 06/27/2022 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 Anion gap in Serum or Plasma Ordered By: Mk Jc on 12-16-2024 Anion gap [Moles/Vol] 12 mmol/L 02-11 [facility] BUN/creatinine ratioOrdered By: Mk Jc on 12-16-2024 Urea nitrogen/Creatinine [Mass ratio] 17.7 mg/mg 07-19 [facility] Basic Metabolic Profile (BMP )on 12-16-2024 BUN/CRE 17.7 RATIO Normal 07-19 [facility] Comment on above: Performed By: #### L 500.4050, L501.5200, L501.2300, L100.0100 #### [facility] [address] [place], [address] Calcium [Mass/Vol] 8.5 mg/dL Normal 7.6-11.0 [facility] Comment on above: Performed By: #### L 500.4050, L501.5200, L501.2300, L100.0100 #### [facility] [address] [place], [address] Chloride [Moles/Vol] 113 mmol/L High 98-108 [facility] Comment on above: Performed By: #### L 500.4050, L501.5200, L501.2300, L100.0100 #### [facility] [address] [place], [address] CO2 [Moles/Vol] 10.2 mmol/L Low 21.0-32.0 [facility] Comment on above: Performed By: #### L 500.4050, L501.5200, L501.2300, L100.0100 #### [facility] [address] [place], [address] Creatinine [Mass/Vol] 1.83 mg/dL High 0.70-1.20 [facility] Comment on above: Performed By: #### L 500.4050, L501.5200, L501.2300, L100.0100 #### [facility] [address] [place], [address] ECRCL 53.36 ml/min Normal 50-250 [facility] Comment on above: Performed By: #### L 500.4050, L501.5200, L501.2300, L100.0100 #### [facility] [address] [place], [address] GAP 12 Normal 5-15 [facility] Comment on above: Performed By: #### L 500.4050, L501.5200, L501.2300, L100.0100 #### [facility] [address] [place], [address] GFR/1.73 sq M.predicted among non-blacks MDRD (S/P/Bld) [Vol rate/Area] 44 mL/min/{1.73_m2} Low >60 [facility] Comment on above: Result Comment: mL/m in/1.73m2 CKD-EPI Creatinine Equation (2020) Performed By: #### L 500.4050, L501.5200, L501.2300, L100.0100 #### [facility] [address] [place], [address] Glucose [Mass/Vol] 97 mg/dL Normal 70-99 [facility] Comment on above: Performed By: #### L 500.4050, L501.5200, L501.2300, L100.0100 #### [facility] [address] [place], [address] Potassium [Moles/Vol] 3.3 mmol/L Normal 3.3-5.1 [facility] Comment on above: Performed By: #### L 500.4050, L501.5200, L501.2300, L100.0100 #### [facility] [address] [place], [address] Sodium [Moles/Vol] 135 mmol/L Normal 133-145 [facility] Comment on above: Performed By: #### L 500.4050, L501.5200, L501.2300, L100.0100 #### [facility] [address] [place], [address] Urea nitrogen [Mass/Vol] 32 mg/dL High -19 [facility] Comment on above: Performed By: #### L 500.4050, L501.5200, L501.2300, L100.0100 #### [facility] [address] [place], [address] C. difficile DNA MONICA+probe Q l (Unsp spec)Ordered By: Antonette Perera on 12-16-2024 Clostridioides difficile (PCR) [facility] CDIFF (PCR)on 12-16-2024 CDIFF Is the patient receiving laxatives? N New/unexplained onset of 3 or more stools in past 24 hrs? Y Pending 027 027 [id number] Presumptive Negative *for epidemiolologic???use C. Diff PCR Negative- No toxigenic C. Diff Detected Normal [facility] Comment on above: Performed By: #### L 500.4050, L501.5200, L501.2300, L100.0100 #### [facility] [address] [facility] [place], [address] Carbon dioxide, total [Moles /volume] in Central venous bloodOrdered By: Mk Jc on 12-16-2024 CO2 [Moles/Vol] 10.2 mmol/L Low 21.0-32.0 [facility] Chloride assayOrdered By: Celeste Jc on 12-16-2024 Chloride [Moles/Vol] 113 mmol/L High 98-108 [facility] Discharge Instructionon 11-28 Discharge Instruction [facility] Medical Records Department [address] [place] [address] Instructions for Home/Discharge Instructions 12/16/24 1118 MR#: [id number] Acct: [id number] Name: DOV BURROWS Rep #: [id number] : 1970 54 From: Mk Jc DO PCP: Dr. Harjeet Bernard MD Status:ADM SANNA Discharge Instructions Diet Discharge Diet: No restrictions DC O2, CPAP, BIPAP needs Home O2 Discharge instructions: No Dressing / Incision Discharge Activity: Return to Normal Activity Weight Bearing Status: Full weight bearing Follow Up Care Test Results: Test results from this visit will be discussed in further detail at your follow-up appointment, if applicable. Discharge Plan Admission Admit Date/Time: 12/15/24 10:18 Primary Reason for Your Visit: Acute kidney injury Attending Provider: Mk Jc Primary Care Provider: Harjeet Bernard Discharge Orders/Prescriptions Prescriptions: New diphenoxylate-atropine [Lomotil] 2.5-0.025 mg tablet 2 tab PO Q6H PRN (Reason: diarrhea) Qty: 30 0RF dicyclomine 20 mg tablet 20 mg PO .QID PRN (Reason: diarrhea) Qty: 20 0RF Continued bupropion HCl 150 mg tablet sustained-release 12 hr 150 mg PO DAILY Patient Comments: [NO ORIGINAL SIG] fluvoxamine 150 mg capsule,extended release 24hr 150 mg PO DAILY Patient Comments: [NO ORIGINAL SIG] ondansetron 8 mg tablet,disintegrating 8 mg PO Q8H PRN (Reason: nausea and vomiting) Qty: 20 0RF omeprazole 20 mg capsule,delayed release(DR/EC) 20 mg PO DAILY Daily Fiber (psyllium-aspart) 3 gram Powder In Packet 1 packet PO TID Qty: 54 0RF Discontinued loperamide 2 mg Capsule 2 mg PO Q12H PRN (Reason: DIARRHEA) Qty: 60 0RF Referrals / Follow Up: Harjeet Bernard MD [Primary Care Provider] - See Referral Note (as scheduled) Disposition Disposition (needs filled in before D/C Order can be placed): Home, Self Care 12/16/24 1127 Mk Jc DO CC: Dr. Harjeet Bernard MD Signed Normal [facility] ENTERIC PATHOGEN PANEL STOOL on 12-16-2024 EP PANEL Is the patient receiving laxatives? N New/unexplained onset of 3 or more stools in past 24 hrs? Y Normal Reference Range = Not Detected Nucleic acid amplification test method Not detected for Campylobacter group, Salmonella species, Shigella species, Vibrio Group, Yersinia enterocolitica, EHEC (Shiga Toxin 1, Shiga Toxin 2), Norovirus Gl/Gll, and Rotavirus A. Other common stool pathogens are not detected on this panel include: Aeromonas/Plesiomonas or parasites. Order testing for these organisms separately if suspected. This is an amplified DNA test which makes it both specific and sensitive. CAMPYLOBACTER Not Detected Norovirus Not Detected Rotavirus Not Detected Salmonella Not Detected Shiga Toxin Not Detected Shigella sp. Not Detected VIBRIO Not Detected Yersinia Not Detected Normal [facility] Comment on above: Performed By: #### L 500.4050, L501.5200, L501.2300, L100.0100 #### [facility] [address] [facility] [place], [address] Estimation of creatinine emma aranceOrdered By: Mk Jc on 12-16-2024 Estimated Creatinine Clearance Calc 53.36 ml/min 50-250 [facility] GFR/1.73 sq M.predicted jaime g non-blacks MDRD (S/P/Bld) [Vol rate/Area]Ordered By: Mk Jc on 12-16-2024 Estimated GFR (MDRD) Non-Af Amer 44 Low >60 [facility] Comment on above: mL/min/1.73m2 CKD-EP I Creatinine Equation (2020) Potassium (Unsp spec) [Mass/ Vol]Ordered By: Mk Jc on 12-16-2024 Potassium [Moles/Vol] 3.3 mmol/L 3.3-5.1 [facility] Serum creatinine measurement (mass/volume)Ordered By: Mk Jc on 12-16-2024 Creatinine [Mass/Vol] 1.83 mg/dL High 0.70-1.20 [facility] Serum glucose measurement (m ass/volume)Ordered By: Mk Jc on 12-16-2024 Glucose [Mass/Vol] 97 mg/dL 70-99 [facility] Serum or plasma calcium tran urement (mass/volume)Ordered By: Mk Jc on 12-16-2024 Calcium [Mass/Vol] 8.5 mg/dL 7.6-11.0 [facility] Serum or plasma urea nitroge n measurement (mass/volume)Ordered By: Mk Jc on 12-16-2024 Urea nitrogen [Mass/Vol] 32 mg/dL High 4-19 [facility] Sodium levelOrdered By: Mk Jc on 12-16-2024 Sodium [Moles/Vol] 135 mmol/L 133-145 [facility] Stool enteric pathogen panel by probe and target amplification methodOrdered By: Antonette Perera on 12-16-2024 Enteric Bacteriology [facility] Absolute neutrophil countOrd ered By: Ibrahima Camarena on 12-15-2024 Neutrophils (Bld) [#/Vol] 9.0 10*3/uL High 2.0-7.7 [facility] Anion gap in Serum or Plasma Ordered By: Ibrahima Camarena on 12-15-2024 Anion gap [Moles/Vol] 14 mmol/L 5-15 [facility] BUN/creatinine ratioOrdered By: Ibrahima Camarena on 12-15-2024 Urea nitrogen/Creatinine [Mass ratio] 18.2 mg/mg 10- [facility] Basic Metabolic Profile (BMP )on 12-15-2024 BUN/CRE 18.2 RATIO Normal -20 [facility] Comment on above: Performed By: #### L 500.4050, L501.5200, L501.2300, L100.0100 #### [facility] [address] [place], [address] Calcium [Mass/Vol] 9.1 mg/dL Normal 7.6-11.0 [facility] Comment on above: Performed By: #### L 500.4050, L501.5200, L501.2300, L100.0100 #### [facility] [address] [place], [address] Chloride [Moles/Vol] 107 mmol/L Normal 98-108 [facility] Comment on above: Performed By: #### L 500.4050, L501.5200, L501.2300, L100.0100 #### [facility] [address] [place], [address] CO2 [Moles/Vol] 10.4 mmol/L Low 21.0-32.0 [facility] Comment on above: Performed By: #### L 500.4050, L501.5200, L501.2300, L100.0100 #### [facility] [address] [place], [address] Creatinine [Mass/Vol] 2.23 mg/dL High 0.70-1.20 [facility] Comment on above: Performed By: #### L 500.4050, L501.5200, L501.2300, L100.0100 #### [facility] [address] [place], [address] ECRCL 43.79 ml/min Low 50-250 [facility] Comment on above: Performed By: #### L 500.4050, L501.5200, L501.2300, L100.0100 #### [facility] [address] [place], [address] GAP 14 Normal 5-15 [facility] Comment on above: Performed By: #### L 500.4050, L501.5200, L501.2300, L100.0100 #### [facility] [address] [place], [address] GFR/1.73 sq M.predicted among non-blacks MDRD (S/P/Bld) [Vol rate/Area] 35 mL/min/{1.73_m2} Low >60 [facility] Comment on above: Result Comment: mL/m in/1.73m2 CKD-EPI Creatinine Equation (2020) Performed By: #### L 500.4050, L501.5200, L501.2300, L100.0100 #### [facility] [address] [place], [address] Glucose [Mass/Vol] 106 mg/dL High 70-99 [facility] Comment on above: Performed By: #### L 500.4050, L501.5200, L501.2300, L100.0100 #### [facility] [address] [place], [address] Potassium [Moles/Vol] 4.0 mmol/L Normal 3.3-5.1 [facility] Comment on above: Result Comment: Hemo lysis present, Results??could be affected. ?? Performed By: #### L 500.4050, L501.5200, L501.2300, L100.0100 #### [facility] [address] [place], [address] Sodium [Moles/Vol] 132 mmol/L Low 133-145 [facility] Comment on above: Performed By: #### L 500.4050, L501.5200, L501.2300, L100.0100 #### [facility] [address] [place], [address] Urea nitrogen [Mass/Vol] 41 mg/dL High 4-19 [facility] Comment on above: Performed By: #### L 500.4050, L501.5200, L501.2300, L100.0100 #### [facility] [address] [place], [address] Basophil percentageOrdered B y: Ibrahima Camarena on 12-15-2024 Basophils/100 WBC (Bld) 0.3 % 0-1 [facility] CBC W/Diff, Automatedon 11-28-2024 Absolute Lymph 0.86 X10 3/uL Normal 0.83-4.51 [facility] Comment on above: Performed By: #### L 500.4050, L501.5200, L501.2300, L100.0100 #### [facility] [address] [place], [address] Absolute Neut 9.0 X10 3/uL High 2.0-7.7 [facility] Comment on above: Performed By: #### L 500.4050, L501.5200, L501.2300, L100.0100 #### [facility] [address] [place], [address] Basophils/100 WBC (Bld) 0.3 % Normal 0-1 [facility] Comment on above: Performed By: #### L 500.4050, L501.5200, L501.2300, L100.0100 #### [facility] [address] [place], [address] Eosinophils/100 WBC (Bld) 1.2 % Normal 0-5 [facility] Comment on above: Performed By: #### L 500.4050, L501.5200, L501.2300, L100.0100 #### [facility] [address] [place], [address] Erythrocyte distribution width (RBC) [Ratio] 15.2 % High 11.6-14.6 [facility] Comment on above: Performed By: #### L 500.4050, L501.5200, L501.2300, L100.0100 #### [facility] [address] [place], [address] Hematocrit (Bld) [Volume fraction] 38.9 % Low 40-54 [facility] Comment on above: Performed By: #### L 500.4050, L501.5200, L501.2300, L100.0100 #### [facility] [address] [place], [address] Hemoglobin (Bld) [Mass/Vol] 12.7 g/dL Low 13.0-16.5 [facility] Comment on above: Performed By: #### L 500.4050, L501.5200, L501.2300, L100.0100 #### [facility] [address] [place], [address] IG% 0.400 Normal 0.0-0.9 [facility] Comment on above: Result Comment: IG% - Immature Granulocytes (promyelocytes, myelocytes and metamyelocytes) > 1% indicates that a LEFT SHIFT is Present. Performed By: #### L 500.4050, L501.5200, L501.2300, L100.0100 #### [facility] [address] [place], [address] Lymphocytes/100 WBC (Bld) 7.6 % Low 19-41 [facility] Comment on above: Performed By: #### L 500.4050, L501.5200, L501.2300, L100.0100 #### [facility] [facility] [address] [place], [address] MCH (RBC) [Entitic mass] 31.1 pg Normal 27.0-32.0 [facility] Comment on above: Performed By: #### L 500.4050, L501.5200, L501.2300, L100.0100 #### [facility] [address] [place], [address] MCHC (RBC) [Mass/Vol] 32.6 g/dL Normal 32-36 [facility] Comment on above: Performed By: #### L 500.4050, L501.5200, L501.2300, L100.0100 #### [facility] [address] [place], [address] MCV (RBC) [Entitic vol] 95.3 fL High 80-94 [facility] Comment on above: Performed By: #### L 500.4050, L501.5200, L501.2300, L100.0100 #### [facility] [address] [place], [address] Monocytes/100 WBC (Bld) 10.9 % High 0-10 [facility] Comment on above: Performed By: #### L 500.4050, L501.5200, L501.2300, L100.0100 #### [facility] [address] [place], [address] Neutrophils/100 WBC (Bld) 79.6 % High 47-70 [facility] Comment on above: Performed By: #### L 500.4050, L501.5200, L501.2300, L100.0100 #### [facility] [address] [place], [address] Nucleated RBC (Bld) [#/Vol] 0.2 10*3/uL Normal 0-5 [facility] Comment on above: Performed By: #### L 500.4050, L501.5200, L501.2300, L100.0100 #### [facility] [address] [place], [address] Platelet mean volume (Bld) [Entitic vol] 8.6 fL Normal 6.2-12.0 [facility] Comment on above: Performed By: #### L 500.4050, L501.5200, L501.2300, L100.0100 #### [facility] [address] [place], [address] Platelets (Bld) [#/Vol] 393 10*3/uL Normal 150-450 [facility] Comment on above: Performed By: #### L 500.4050, L501.5200, L501.2300, L100.0100 #### [facility] [address] [place], [address] RBC (Bld) [#/Vol] 4.08 10*6/uL Low 4.6-6.2 [facility] Comment on above: Performed By: #### L 500.4050, L501.5200, L501.2300, L100.0100 #### [facility] [address] [place], [address] RDW SD 52.6 fl High 35.1-43.9 [facility] Comment on above: Performed By: #### L 500.4050, L501.5200, L501.2300, L100.0100 #### [facility] [address] [place], [address] WBC (Bld) [#/Vol] 11.3 10*3/uL High 4.4-11.0 [facility] Comment on above: Performed By: #### L 500.4050, L501.5200, L501.2300, L100.0100 #### [facility] [address] [place], [address] Carbon dioxide, total [Moles /volume] in Central venous bloodOrdered By: Ibrahima Camarena on 12-15-2024 CO2 [Moles/Vol] 10.4 mmol/L Low 21.0-32.0 [facility] Chloride assayOrdered By: Imtiaz Camarena on 12-15-2024 Chloride [Moles/Vol] 107 mmol/L 98-108 [facility] Emergency Department Summary on 12-15-2024 Emergency Department Summary [facility] Medical Records Department [address] [place] [address] Emergency Department Summary 12/15/24 MR#: [id number] Acct: [id number] Name: DOV BURROWS Rep #: [id number] : 1970 54 From: Ibrahima Camarena DO PCP: Dr. Harjeet Bernard MD Status:ADM SANNA Location: [place] DP449-6 HPI History of Present Illness Chief Complaint: General Illness Informant: patient Onset/Context/Timing Onset: Days Context: Gradual Onset Timing: Continuous Worsened by: Nothing Relieved by: Nothing Narrative Narrative: Patient presents with possible dehydration that has been getting worse over the past few days. Patient was recently admitted to the hospital for dehydration and acute kidney injury. Patient was feeling better and was discharged. Patient has been having increased output through his ileostomy. Patient has been following with his primary care physician who noted worsening of his renal function. Patient states he is drinking plenty of fluids including Gatorade, water, and liquid IV. Patient denies any pain. Patient denies any nausea or vomiting. [facility] Medical History Cancer of appendix Ileostomy present Acute appendicitis Home Medications ???Medication ???Instructions ???Recorded ???Last Taken ???Type bupropion HCl 150 mg tablet,12 hr 150 mg PO DAILY 05/04/24 12/15/24 History sustained-release fluvoxamine 150 mg 150 mg PO DAILY 05/04/24 12/15/24 History capsule,extended release 24 hr ondansetron 8 mg disintegrating 8 mg PO Q8H PRN nausea and 4 Unknown Rx tablet vomiting #20 tabs omeprazole 20 mg capsule,delayed 20 mg PO DAILY 11/26/24 12/15/24 H istory release loperamide 2 mg capsule 2 mg PO Q12H PRN DIARRHEA #60 caps 11/29/24 Unknown Rx psyllium husk (aspartame) 3 gram 1 packet PO TID #54 ea 11/29/24 Rx oral powder packet (Daily Fiber (psyllium-aspartame)) Allergy/AdvReac Type Severity Reaction Status Date / Time No Known Allergies Allergy Verified 11/26/24 14:44 Family History (Updated 11/26/24 @ 18:[address] Ibrahima Doan DO) Other VTE (venous thromboembolism) Surgical History S/P splenectomy H/O colectomy Social History household members: spouse housing: house Smoking Status: Never smoker ROS ROS ED Constitutional Constitutional ED: Denies chills or fever(s) Eyes Eyes: Denies blurry vision or change in vision ENT ENT ED: Denies rhinorrhea or sore throat Cardiovascular Cardiovascular: Denies chest pain or palpitations Respiratory/Chest Respiratory/Chest: Denies cough or dyspnea Gastrointestinal Gastrointestinal: Reports diarrhea; Denies abdominal pain, nausea or vomiting Genitourinary Genitourinary ED: Denies dysuria or hematuria Musculoskeletal Musculoskeletal: Denies back pain or neck pain Integumentary Denies abscess or rash Neurologic Neurologic: Denies headache(s) or weakness Allergic/Immunologic Allergic/Immunologic ED: Denies mouth swelling or urticaria EXAM Physical Exam Const Vital Signs: 12/15/24 08:11 12/15/24 08:29 12/15/24 09:48 Temperature 98 F 98.7 F Temperature Source Temporal Pulse Rate 88 59 L Respiratory Rate 14 16 Respiratory Effort Normal Respiratory Pattern Normal Blood Pressure 119/76 129/78 H Blood Pressure Mean 90 95 Pulse Ox 98 99 Oxygen Delivery Method Room Air Positive well nourished and well developed General Appearance ED: well developed and NAD HEENT Reports moist mucous membranes Neck supple and no JVD Resp normal respiratory effort and clear to auscultation bilaterally Cardio regular rate and regular rhythm GI non-tender and non-distended Auscultation: normoactive bowel sounds Palpation: soft Neuro oriented x3, CN's II-XII intact bilaterally and no sensory deficits noted Sensorium / Orientation: alert Psych mental status grossly normal MDM MDM MDM Narrative Medical decision making narrative: Differential diagnosis includes dehydration, electrolyte abnormality, infection, and acute kidney injury. CBC will be obtained to assess for leukocytosis and anemia. Basic metabolic profile will be obtained to assess for electrolyte abnormality and renal function. History Record Review Additional record(s) reviewed:: Prior inpatient record, Prior ED visit and Prior labs Lab Data Attestation: I reviewed the patient's lab results. Lab results narrative: CBC was reviewed. There is a slight leukocytosis of 11.3. Hemoglobin was 12.7 and hematocrit was 38.9. Platelets were normal. Basic metabolic profile was reviewed. BUN was 41 and creatinine was 2.23. These are increased from pr (more content not included)... Normal [facility] Eosinophil percentageOrdered By: Ibrahima Camarena on 12-15-2024 Eosinophils/100 WBC (Bld) 1.2 % 0-5 [facility] Erythrocyte distribution wid th ratioOrdered By: Ibrahima Camarena on 12-15-2024 Erythrocyte distribution width (RBC) [Ratio] 15.2 % High 11.6-14.6 [facility] Erythrocyte distribution wid th standard deviationOrdered By: Ibrahima Camarena on 12-15-2024 Erythrocyte distribution width (RBC) [Entitic vol] 52.6 fL High 35.1-43.9 [facility] Estimation of creatinine emma aranceOrdered By: Ibrahima Camarena on 12-15-2024 Estimated Creatinine Clearance Calc 43.79 ml/min Low 50-250 [facility] GFR/1.73 sq M.predicted jaime g non-blacks MDRD (S/P/Bld) [Vol rate/Area]Ordered By: Ibrahima Camarena on 12-15-2024 Estimated GFR (MDRD) Non-Af Amer 35 Low >60 [facility] Comment on above: mL/min/1.73m2 CKD-EP I Creatinine Equation (2020) H AND P Exam - [facility] 12-15-2024 H&P Exam - Hospitalist [facility] Medical Records Department [address] [place] [address] H P Exam - Hospitalist 12/15/24 1633 MR#: [id number] Acct: [id number] Name: DOV BURROWS Rep #: [id number] : 1970 54 From: Mk Jc DO PCP: Dr. Harjeet Bernard MD Status:ADM SANNA Location: [address] HPI - General General Date of Admission: 12/15/24 Date of Service: 12/15/24 Chief Complaint: Need for IV fluids HPI Lizette BURROWS, is a 54 M who presents to the emergency room at [facility] for evaluation due to possible dehydration from high output from his ileostomy. He was told to come to the emergency room for evaluation by his PCP. 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 He was told the cancer is in remission currently. Ileostomy was placed in 2021. Labs were obtained, patient's white blood cell count was slightly elevated at 11.3, hemoglobin was 12.7 sodium was 132, BUN was 41 and creatinine was 2.23. Patient's glucose was 106. Patient was given IV fluids in the emergency room, he will be placed in observation status on MedSurg 3 and be given IV fluids, labs will be rechecked. Patient will be placed on Bentyl and Imodium to see if this will decrease his ileostomy output. [facility] Medical History Cancer of appendix Ileostomy present Acute appendicitis Home Medications ???Medication ???Instructions ???Recorded ???Last Taken ???Type bupropion HCl 150 mg tablet,12 hr 150 mg PO DAILY 05/04/24 12/15/24 History sustained-release fluvoxamine 150 mg 150 mg PO DAILY 05/04/24 12/15/24 History capsule,extended release 24 hr ondansetron 8 mg disintegrating 8 mg PO Q8H PRN nausea and 4 Unknown Rx tablet vomiting #20 tabs omeprazole 20 mg capsule,delayed 20 mg PO DAILY 11/26/24 12/15/24 H istory release loperamide 2 mg capsule 2 mg PO Q12H PRN DIARRHEA #60 caps 11/29/24 Unknown Rx psyllium husk (aspartame) 3 gram 1 packet PO TID #54 ea 11/29/24 Rx oral powder packet (Daily Fiber (psyllium-aspartame)) Allergy/AdvReac Type Severity Reaction Status Date / Time No Known Allergies Allergy Verified 11/26/24 14:44 Family History (Updated 11/26/24 @ 18:[address] Ibrahima Doan DO) Other VTE (venous thromboembolism) Surgical History S/P splenectomy H/O colectomy Social History household members: spouse housing: house Smoking Status: Never smoker ROS Constitutional Constitutional: Denies anorexia, change in weight, fatigue, fever(s), malaise, night sweats or weakness Eyes Eyes: Denies blurry vision, change in vision, discharge from eye(s) or eye pain Cardiovascular Cardiovascular: Denies chest pain, claudication, edema or palpitations Respiratory/Chest Respiratory/Chest: Denies cough, hemoptysis, shortness of breath at rest or shortness of breath with exertion Gastrointestinal Gastrointestinal: Denies abdominal pain, constipation, diarrhea, hematemesis, hematochezia, melena, nausea or vomiting Genitourinary Genitourinary: Reports other Details: Increased output from ileostomy ; Denies dysuria, hematuria, urinary frequency, urinary hesitancy, urinary incontinence or urinary urgency Musculoskeletal Musculoskeletal: Denies back pain, joint pain, joint stiffness, joint swelling, myalgias or neck pain Neurologic Neurologic: Denies abnormal gait, abnormal speech, dizziness, focal weakness, headache(s), loss of vision, numbness, other visual disturbances, paresthesias, syncope or tingling Psychiatric Psychiatric: Denies anxiety, cognitive impairment, depression, irritability, mood swings or suicidal ideation Endocrine Endocrinology: Denies change in body appearance, cold intolerance, excessive sweating, heat intolerance, polydipsia or polyuria Hematologic/Lymphatic Hematologic/Lymphatic: Denies none, anemia, easy bleeding, easy bruising or lymphadenopathy Allergic/Immunologic Allergic/Immunologic: Denies rhinitis, urticaria, eczemia or asthma Vital Signs Vital Signs Vital Signs: 12/15/24 08:11 12/15/24 08:29 12/15/24 09:48 Temperature 98 F 98.7 F Temperature Source Temporal Pulse Rate 88 59 L Respiratory Rate 14 16 Respiratory Effort Normal Respiratory Pattern Normal Blood Pressure 119/76 129/78 H Blood Pressure Mean 90 95 Blood Pressure Source Blood Pressure Position Blood Pressure Location Pulse Ox 98 99 Oxygen Delivery Method Room Air 12/15/24 10:11 12/15/24 11:54 12/15/24 14:00 Temperature 98.0 F Temperature Source Oral Pulse Rate 89 68 Respiratory Rate 14 18 Respiratory Effort Respiratory Pattern B (more content not included)... Normal [facility] Hematocrit Auto (Bld) [Volum e fraction]Ordered By: Ibrahima Camarena on 12-15-2024 Hematocrit (Bld) [Volume fraction] 38.9 % Low 40-54 [facility] Hemoglobin measurementOrdere d By: Ibrahima Camarena on 12-15-2024 Hemoglobin (Bld) [Mass/Vol] 12.7 g/dL Low 13.0-16.5 [facility] Immature granulocytes/100 WB C Auto (Bld)Ordered By: Ibrahima Camarena on 12-15-2024 Immature granulocytes/100 WBC (Bld) 0.400 % 0.0-0.9 [facility] Comment on above: IG% - Immature Granu locytes (promyelocytes, myelocytes and metamyelocytes) > 1% indicates that a LEFT SHIFT is Present. Lymphocytes Auto (Unsp spec) [#/Vol]Ordered By: Ibrahima Camarena on 12-15-2024 Lymphocytes (Bld) [#/Vol] 0.86 10*3/uL 0.83-4.51 [facility] Lymphocytes/100 WBC Auto (Un sp spec)Ordered By: Ibrahima Camarena on 12-15-2024 Lymphocytes/100 WBC (Bld) 7.6 % Low 19-41 [facility] MCV (mean corpuscular volume ) determinationOrdered By: Ibrahima Camarena on 12-15-2024 MCV (RBC) [Entitic vol] 95.3 fL High 80-94 [facility] Mean corpuscular hemoglobin (MCH) determinationOrdered By: Ibrahima Camarena on 12-15-2024 MCH (RBC) [Entitic mass] 31.1 pg 27.0-32.0 [facility] Mean corpuscular hemoglobin concentration (MCHC) determinationOrdered By: Ibrahima Camarena on 12-15-2024 MCHC (RBC) [Mass/Vol] 32.6 g/dL 32-36 [facility] Mean platelet volume determi nationOrdered By: Ibrahima Camarena on 12-15-2024 Platelet mean volume (Bld) [Entitic vol] 8.6 fL 6.2-12.0 [facility] Monocyte percentageOrdered B y: Ibrahima Camarena on 12-15-2024 Monocytes/100 WBC (Bld) 10.9 % High 0-10 [facility] Neutrophil percentageOrdered By: Ibrahima Camarena on 12-15-2024 Neutrophils/100 WBC (Bld) 79.6 % High 47-70 [facility] Nucleated red blood cell per centageOrdered By: Ibrahima Camarena on 12-15-2024 Nucleated RBC/100 WBC (Bld) [Ratio] 0.2 % 0-5 [facility] Platelet countOrdered By: Imtiaz Camarena on 12-15-2024 Platelets (Bld) [#/Vol] 393 10*3/uL 150-450 [facility] Potassium (Unsp spec) [Mass/ Vol]Ordered By: Ibrahima Camarena on 12-15-2024 Potassium [Moles/Vol] 4.0 mmol/L 3.3-5.1 [facility] Comment on above: Hemolysis present, R esults could be affected. RBC Auto (Bld) [#/Vol]Ordere d By: Ibrahima Camarena on 12-15-2024 RBC (Bld) [#/Vol] 4.08 10*6/uL Low 4.6-6.2 [facility] Serum creatinine measurement (mass/volume)Ordered By: Ibrahima Camarena on 12-15-2024 Creatinine [Mass/Vol] 2.23 mg/dL High 0.70-1.20 [facility] Serum glucose measurement (m ass/volume)Ordered By: Ibrahima Camarena on 12-15-2024 Glucose [Mass/Vol] 106 mg/dL High 70-99 [facility] Serum or plasma calcium tran urement (mass/volume)Ordered By: Ibrahima Camarena on 12-15-2024 Calcium [Mass/Vol] 9.1 mg/dL 7.6-11.0 [facility] Serum or plasma urea nitroge n measurement (mass/volume)Ordered By: Ibrahima Camarena on 12-15-2024 Urea nitrogen [Mass/Vol] 41 mg/dL High 4-19 [facility] Sodium levelOrdered By: Ibrahima Camarena on 12-15-2024 Sodium [Moles/Vol] 132 mmol/L Low 133-145 [facility] White blood cell (WBC) count Ordered By: Ibrahima Camarena on 12-15-2024 WBC (Bld) [#/Vol] 11.3 10*3/uL High 4.4-11.0 [facility] Basic metabolic 2000 panelon 12-14-2024 Anion gap [Moles/Vol] 13 mmol/L Normal 8-15 [facility] Comment on above: Order Comment: Speci men Type: BLOOD SPECIMENOrdering Facility: [facility] Address: [address] [place] [address] Performed By: #### 2 4321-2 ####[facility] LABCLIA [id number] [facility] [place] [address] [place] Calcium [Mass/Vol] 9.3 mg/dL Normal 8.5-10.2 [facility] Comment on above: Order Comment: Speci men Type: BLOOD SPECIMENOrdering Facility: [facility] Address: [address] [place] [address] Performed By: #### 2 4321-2 ####[facility] LABCLIA [id number] [place] [address] [place] Chloride [Moles/Vol] 109 mmol/L High 98-107 [facility] Comment on above: Order Comment: Speci men Type: BLOOD SPECIMENOrdering Facility: [facility] Address: [address] [place] [address] Performed By: #### 2 4321-2 ####[facility] LABCLIA [id number] [facility] [place] [id number] [place] CO2 [Moles/Vol] 13 mmol/L Low 22-30 [facility] Comment on above: Order Comment: Speci men Type: BLOOD SPECIMENOrdering Facility: [facility] Address: [address] [place] [address] Performed By: #### 2 4321-2 ####[facility] LABCLIA [id number] [place] [id number] [place] Creatinine [Mass/Vol] 2.51 mg/dL High 0.73-1.22 [facility] Comment on above: Order Comment: Rose summers Type: BLOOD SPECIMENOrdering Facility: [facility] Address: [address] [place] [address] Performed By: #### 2 4321-2 ####[facility] LABCLIA [id number] [place] [address] [place] Creatinine and Glomerular filtration rate.predicted panel (S/P/Bld) 30 mL/min/1.73m??? Low >=60 [facility] Comment on above: Order Comment: Rose summers Type: BLOOD SPECIMENOrdering Facility: [facility] Address: [address] [place] [address] Result Comment: Marlen mated Glomerular Filtration Rate (eGFR) is calculated using the 2020 CKD-EPI creatinine equation. This equation utilizes serum creatinine, sex, and age as parameters. The creatinine assay has traceable calibration to isotope dilution-mass spectrometry. Refer to KDIGO guidelines for clinical interpretation. In patients with unstable renal function, e.g. those with acute kidney injury, the eGFR may not accurately reflect actual GFR. Performed By: #### 2 4321-2 ####[facility] LABCLIA [id number] [place] [address] [place] Glucose [Mass/Vol] 124 mg/dL High 74-99 [facility] Comment on above: Order Comment: Rose summers Type: BLOOD SPECIMENOrdering Facility: [facility] Address: [address] [place] [address] Result Comment: The [place] Diabetes Association (ADA) provides guidance for cutoff values for fasting glucose and random glucose. The ADA defines fasting as no caloric intake for at least 8 hours. Fasting plasma glucose results between 100 to 125 mg/dL indicate increased risk for diabetes (prediabetes). Fasting plasma glucose results greater than or equal to 126 mg/dL meet the criteria for diagnosis of diabetes. In the absence of unequivocal hyperglycemia, results should be confirmed by repeat testing. In a patient with classic symptoms of hyperglycemia or hyperglycemic crisis, random plasma glucose results greater than or equal to 200 mg/dL meet the criteria for diagnosis of diabetes. Reference: Standards of Medical Care in Diabetes 2016, [place] Diabetes Association. Diabetes Care. 2016.39(Suppl 1). Performed By: #### 2 4321-2 ####[facility] LABIA [id number] [place] [address] [place] Potassium [Moles/Vol] 3.6 mmol/L Low 3.7-5.1 [facility] Comment on above: Order Comment: Rafaeli men Type: BLOOD SPECIMENOrdering Facility: [facility] Address: [address] [place] [address] Performed By: #### 2 4321-2 ####[facility] LABIA [id number] [place] [address] [place] Sodium [Moles/Vol] 135 mmol/L Low 136-144 [facility] Comment on above: Order Comment: Rose summers Type: BLOOD SPECIMENOrdering Facility: [facility] Address: [address] [place] [address] Performed By: #### 2 4321-2 ####[facility] LABIA [id number] [place] [address] [place] Urea nitrogen [Mass/Vol] 43 mg/dL High 9-24 [facility] Comment on above: Order Comment: Rose summers Type: BLOOD SPECIMENOrdering Facility: [facility] Address: [address] [place] [address] Performed By: #### 2 4321-2 ####[facility] [id number] [place] [id number] [place] CNPFaviola 12-14-2024 RICHIEN Telephone (INTMWS) DOV BURROWS ([id number]) 1970 M Date Time Provider Department 12/14/24 JULISSA UGARTE INTMWS During your visit today, we recorded the following information about you: Julissa Ugarte APRN.[employer] 12/14/2024 7:29 AM Addendum Please let him know we still recommend ER evaluation / IV hydration due to acute kidney injury noted on his labs Advised to go to ER for decreased kidney function, possible metabolic acidosis following lab results. Advised to go to ER for worsening [place] but declined, repeat labs completed, somewhat improved but remains abnormal with elevated BUN/Cr, low Co2, hypokalemia. Endorse ER visit for [place], please reach out again today. Check to see if having nausea, vomiting, increased ostomy output. If so recommend treating accordingly such as take imodium for diarrhea. If he declines again I would recommend repeat labs today and double his current fluid intake to include 1-2 sports drinks or liquid IV or 2 cups of broth with sodium. I can replete potassium with a supplement. Latest Ref Rng 05/15/2024 12/04/2024 12/11/2024 12/12/2024 Protein, Total 6.3 - 8.0 g/dL 7.8 7.7 Albumin 3.9 - 4.9 g/dL 4.2 4.2 Calcium 8.5 - 10.2 mg/dL 9.2 9.3 9.0 9.1 Bilirubin, Total 0.2 - 1.3 mg/dL 0.3 0.3 Alkaline Phosphatase 38 - 113 U/L 109 120 (H) AST 14 - 40 U/L 20 16 ALT 10 - 54 U/L 18 20 Glucose 74 - 99 mg/dL 99 94 112 (H) 105 (H) BUN 9 - 24 mg/dL 22 51 (H) 56 (H) 50 (H) Creatinine 0.73 - 1.22 mg/dL 1.10 2.18 (H) 2.63 (H) 2.50 (H) Sodium 136 - 144 mmol/L 136 133 (L) 134 (L) 133 (L) Potassium 3.7 - 5.1 mmol/L 4.2 4.6 3.9 3.3 (L) Chloride 98 - 107 mmol/L 103 109 (H) 110 (H) 108 (H) CO2 22 - 30 mmol/L 20 (L) 11 (L) 9 (LL) 12 (L) Anion Gap 8 - 15 mmol/L 13 13 15 13 eGFR >=60 mL/min/1.73m? 81 36 (L) 28 (L) 30 (L) Julissa Ugarte APRN.[employer] 12/14/2024 7:29 AM Signed Addended by: JULISSA UGARTE on: 12/14/2024 07:29 AM Modules accepted: Orders Zhanna Wagner LPN 12/14/2024 9:02 AM Signed No answer. Left message for patient to call office and ask to speak to a nurse regarding follow up from this past weekend and new lab results and recommendations. Rowena Angel RN 12/14/2024 10:18 AM Signed Patient notified of results and provider's instructions. Patient verbalizes understanding. Patient declining ER visit again. Patient states that he continues drinking a couple sports a day. Patient states that he will come into lab at around 2:30 to get labs done again. Patient denies nausea, vomiting, and increased ostomy output. PEDRO LUIS Peoples Terri, DIRECTOR [employer]IO [employer] 12/14/2024 3:37 PM Signed Has obtained labs, results not yet in. Julissa Ugarte APRN.[employer] 12/15/2024 7:15 AM Signed Lab results show continued dehydration, acute kidney injury, metabolic alterations. Endorse ER visit for this. It does not appear he can achieve enough decrease in ostomy output and increase in oral output sufficient to correct this. Note he messaged the on-call doctor yesterday in another encounter. Latest Ref Rng 12/04/2024 12/11/2024 12/12/2024 12/14/2024 Protein, Total 6.3 - 8.0 g/dL 7.7 Albumin 3.9 - 4.9 g/dL 4.2 Calcium 8.5 - 10.2 mg/dL 9.3 9.0 9.1 9.3 Bilirubin, Total 0.2 - 1.3 mg/dL 0.3 Alkaline Phosphatase 38 - 113 U/L 120 (H) AST 14 - 40 U/L 16 ALT 10 - 54 U/L 20 Glucose 74 - 99 mg/dL 94 112 (H) 105 (H) 124 (H) BUN 9 - 24 mg/dL 51 (H) 56 (H) 50 (H) 43 (H) Creatinine 0.73 - 1.22 mg/dL 2.18 (H) 2.63 (H) 2.50 (H) 2.51 (H) Sodium 136 - 144 mmol/L 133 (L) 134 (L) 133 (L) 135 (L) Potassium 3.7 - 5.1 mmol/L 4.6 3.9 3.3 (L) 3.6 (L) Chloride 98 - 107 mmol/L 109 (H) 110 (H) 108 (H) 109 (H) CO2 22 - 30 mmol/L 11 (L) 9 (LL) 12 (L) 13 (L) Anion Gap 8 - 15 mmol/L 13 15 13 13 eGFR >=60 mL/min/1.73m? 36 (L) 28 (L) 30 (L) 30 (L) Allergies As of Date: 12/14/2024 (No Known Allergies) Date Reviewed: 12/04/2024 Reviewed by: Zhanna Wagner LPN - Fully Assessed Reason for Visit: Results [95] Primary Visit Diagnosis:Hypokalemia [E87.6] Other Visit Diagnoses:[place] (acute kidney injury) (HCC) [N17.9] Nausea vomiting and diarrhea [R11.2, R19.7] Order(s):BASIC METABOLIC PANEL [SQBMP] Order #: [id number] FUTURE Prescriptions as of 12/15/2024 - loperamide (IMODIUM) 2 mg cap(s) Take 2 mg by mouth two times a day as needed. - ondansetron orally disintegrating (ZOFRAN ODT) 8 mg disintegrating tablet Take 8 mg by mouth every 8 hours as needed. - potassium chloride 20 mEq TbER Take 20 mEq by mouth once daily. - omeprazole (PRILOSEC) 20 mg capsule Take 1 capsule by mouth once daily. - ondansetron (ZOFRAN) 8 mg tablet Take 1 tablet by mouth every 12 hours as needed for nausea/vomiting. - omeprazole (PRILOSEC) 20 mg capsule Take 1 capsule by mouth once daily. - fluvoxaMINE ER (LUVOX CR) 150 mg capsule Take 1 capsule by mouth daily at bedtime. - CPAP Continue Auto PAP @ 5-20 cm of water wit (more content not included)... Normal [facility] Basic metabolic 2000 panelon 12-12-2024 Anion gap [Moles/Vol] 15 mmol/L 8 - 15 mmol/L [facility] Calcium [Mass/Vol] 9 mg/dL 8.5 - 10. 2 mg/dL [facility] Chloride [Moles/Vol] 110 mmol/L High 98 - 10 7 mmol/L [facility] CO2 [Moles/Vol] 9 mmol/L Critically low 22 - 30 mmol/L [facility] Creatinine [Mass/Vol] 2.63 mg/dL High 0.73 - 1.22 mg/dL [facility] GFR/1.73 sq M.predicted among non-blacks MDRD (S/P/Bld) [Vol rate/Area] 28 mL/min/{1.73_m2} Low - PINF [facility] Comment on above: Estimated Glomerular Filtration Rate (eGFR) is calculated using the 2020 CKD-EPI creatinine equation. This equation utilizes serum creatinine, sex, and age as parameters. The creatinine assay has traceable calibration to isotope dilution-mass spectrometry. Refer to KDIGO guidelines for clinical interpretation. In patients with unstable renal function, e.g. those with acute kidney injury, the eGFR may not accurately reflect actual GFR. Glucose [Mass/Vol] 112 mg/dL High 74 - 99 mg/dL [facility] Comment on above: The [place] Diabete s Association (ADA) provides guidance for cutoff values for fasting glucose and random glucose. The ADA defines fasting as no caloric intake for at least 8 hours. Fasting plasma glucose results between 100 to 125 mg/dL indicate increased risk for diabetes (prediabetes). Fasting plasma glucose results greater than or equal to 126 mg/dL meet the criteria for diagnosis of diabetes. In the absence of unequivocal hyperglycemia, results should be confirmed by repeat testing. In a patient with classic symptoms of hyperglycemia or hyperglycemic crisis, random plasma glucose results greater than or equal to 200 mg/dL meet the criteria for diagnosis of diabetes. Reference: Standards of Medical Care in Diabetes 2016, [place] Diabetes Association. Diabetes Care. 2016.39(Suppl 1). Interpretation and review of laboratory results Abnormal [facility] Potassium [Moles/Vol] 3.9 mmol/L 3.7 - 5.1 mmol/L [facility] Sodium [Moles/Vol] 134 mmol/L Low 136 - 144 mmol/L [facility] Urea nitrogen [Mass/Vol] 56 mg/dL High 9 - 24 mg/dL [facility] CBC panel Auto (Bld)on 12-12 Erythrocyte distribution width (RBC) [Ratio] 14.3 % Normal 11.5-15.0 [facility] Comment on above: Order Comment: Speci men Type: BLOOD SPECIMEN Ordering Facility: [facility] Address: [address] [place] [address] Performed By: #### 2 4323-8, 70528-8 #### [facility] CLIA [id number] [address] [place] [address] [place] Hematocrit (Bld) [Volume fraction] 37.1 % Low 39.0-51.0 [facility] Comment on above: Order Comment: Speci men Type: BLOOD SPECIMEN Ordering Facility: [facility] Address: [address] [place] [address] Performed By: #### 2 4323-8, 70043-4 #### [facility] CLIA [id number] [address] [place] [address] [place] Hemoglobin (Bld) [Mass/Vol] 11.9 g/dL Low 13.0-17.0 [facility] Comment on above: Order Comment: Speci men Type: BLOOD SPECIMEN Ordering Facility: [facility] Address: [address] [place] [address] Performed By: #### 2 4323-8, 30094-3 #### [facility] CLIA [id number] [address] [place] [address] [place] MCH (RBC) [Entitic mass] 30.8 pg Normal 26.0-34.0 [facility] Comment on above: Order Comment: Speci men Type: BLOOD SPECIMEN Ordering Facility: [facility] Address: [address] [place] [address] Performed By: #### 2 4323-8, 97580-4 #### [facility] CLIA [id number] [address] [place] [address] [place] MCHC (RBC) [Mass/Vol] 32.1 g/dL Normal 30.5-36.0 [facility] Comment on above: Order Comment: Speci men Type: BLOOD SPECIMEN Ordering Facility: [facility] Address: [address] [place] [address] Performed By: #### 2 4323-8, 65953-1 #### [facility] CLIA [id number] [address] [place] [address] [place] MCV (RBC) [Entitic vol] 96.1 fL Normal 80.0-100.0 [facility] Comment on above: Order Comment: Speci men Type: BLOOD SPECIMEN Ordering Facility: [facility] Address: [address] [place] [address] Performed By: #### 2 4323-8, 59251-1 #### [facility] CLIA [id number] [address] [place] [address] [place] Nucleated RBC (Bld) [#/Vol] 0.02 10*3/uL High <0.01 [facility] Comment on above: Order Comment: Speci men Type: BLOOD SPECIMEN Ordering Facility: [facility] Address: [address] [place] [address] Performed By: #### 2 4323-8, 89121-0 #### [facility] CLIA [id number] [address] [place] [address] [place] Platelet mean volume (Bld) [Entitic vol] 9.0 fL Normal 9.0-12.7 [facility] Comment on above: Order Comment: Speci men Type: BLOOD SPECIMEN Ordering Facility: [facility] Address: [address] [place] [address] Performed By: #### 2 4323-8, 22615-7 #### [facility] CLIA [id number] [address] [id number] [address] [place] Platelets (Bld) [#/Vol] 389 10*3/uL Normal 150-400 [facility] Comment on above: Order Comment: Speci men Type: BLOOD SPECIMEN Ordering Facility: [facility] Address: [address] [place] [address] Performed By: #### 2 4323-8, 68284-8 #### [facility] CLIA [id number] [address] [place] [address] [place] RBC (Bld) [#/Vol] 3.86 10*6/uL Low 4.20-6.00 [facility] Comment on above: Order Comment: Speci men Type: BLOOD SPECIMEN Ordering Facility: [facility] Address: [address] [place] [address] Performed By: #### 2 4323-8, 52652-1 #### [facility] CLIA [id number] [address] [place] [address] [place] WBC (Bld) [#/Vol] 10.86 10*3/uL Normal 3.70-11.00 [facility] Comment on above: Order Comment: Speci men Type: BLOOD SPECIMEN Ordering Facility: [facility] Address: [address] [place] [address] Performed By: #### 2 4323-8, 63765-7 #### [facility] CLIA [id number] [address] [place] [address] [place] CNPFaviola 12-12-2024 CNPN Telephone (FMIUNI) DOV BURROWS ([id number]) 1970 M Date Time Provider Department 12/12/24 DEREK ULLOA FMIUNI During your visit today, we recorded the following information about you: Derek Ulloa DO 12/12/2024 6:45 AM Signed Received call from lab at 12:47 AM regarding critical lab value. Patient had a CO2 level of 9. Reviewed his chart and discharge summary he also appeared to have worsening [place] over last week. Called patient and made contact at 1:20 AM. Informed him that I was doctor mobile application architect for Dr. Bernadr. Discussed that I was calling him due to notification of the lab. He said that he was currently feeling fine, but given these lab values recommended that he go to ED for IV fluid replacement and evaluation due to [place] and concern for metabolic acidosis. He acknowledged recommendation but did not acknowledge if he would go to ED at this time. Will have my staff reach out to him later today. Also will forward to PCP. Dr. Derek Ulloa DO [Note transcribed at 6:40 AM due to Epic maintenance at original time] Julissa Ugarte APRN.[employer] 12/14/2024 7:19 AM Signed Noted, will follow up today, endorse ER visit Zhanna Wagner LPN 12/14/2024 2:46 PM Signed Two encounter open on patient. Attempted to contact patient in the other encounter Allergies As of Date: 12/12/2024 (No Known Allergies) Date Reviewed: 12/04/2024 Reviewed by: Zhanna Wagner LPN - Fully Assessed Prescriptions as of 12/14/2024 - loperamide (IMODIUM) 2 mg cap(s) Take 2 mg by mouth two times a day as needed. - ondansetron orally disintegrating (ZOFRAN ODT) 8 mg disintegrating tablet Take 8 mg by mouth every 8 hours as needed. - potassium chloride 20 mEq TbER Take 20 mEq by mouth once daily. - omeprazole (PRILOSEC) 20 mg capsule Take 1 capsule by mouth once daily. - ondansetron (ZOFRAN) 8 mg tablet Take 1 tablet by mouth every 12 hours as needed for nausea/vomiting. - omeprazole (PRILOSEC) 20 mg capsule Take 1 capsule by mouth once daily. - fluvoxaMINE ER (LUVOX CR) 150 mg capsule Take 1 capsule by mouth daily at bedtime. - CPAP Continue Auto PAP @ 5-20 cm of water with humidification. Mask (per patient preference) optional chin strap (if indicated) , filters, tubing, humidifier and lifetime supplies. AMBROSE G47.33 - buPROPion SR (WELLBUTRIN SR) 150 mg 12 hr tablet Take 1 tablet by mouth two times a day. - ferrous sulfate 325 mg (65 mg iron) tablet Take 1 tablet by mouth every other day. - multivitamin tablet Take 1 tablet by mouth once daily. Problem List As Of Date 12/12/2024 Noted Resolved AMBROSE on CPAP [G47.33] 02/18/2006 Abnormal weight gain [R63.5] 02/18/2006 01/25/2015 MALAISE AND FATIGUE NEC [R53.81, R53.83] 02/18/2006 ANXIETY STATE NOS [F41.1] 02/18/2006 Hypercholesteremia <130 [E78.00] 02/18/2006 OVERWEIGHT [E66.9] 02/18/2006 01/25/2015 DEPRESSIVE DISORDER NEC [F32.89] 02/20/2008 Cellulitis and abscess of unspecified site [L03*07/04/2009 01/25/2015 Non-healing surgical wound [T81.89XA] 07/06/2009 01/25/2015 Other adjustment reaction with predominant dist*01/17/2011 01/25/2015 Non morbid obesity due to excess calories [E66.*02/07/2017 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6] 06/08/2022 06/27/2022 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 He did not go into ED since he feels fine and ostomy output is normal. Did not see the reason to go in. He did have repeat lab draw today. Advised him that while my recommendation was to go in for IV fluids, I would monitor his labs and if continuing to rise or if I get a critical lab from the lab, I would call him again. Dr. Derek Ulloa DO Allergies As of Date: 12/12/2024 (No Known Allergies) Date Reviewed: 12/04/2024 Reviewed by: Zhanna Wagner LPN - Fully Assessed Prescriptions as of 12/12/2024 - loperamide (IMODIUM) 2 mg cap(s) Take 2 mg by mouth two times a day as needed. - ondansetron orally disintegrating (ZOFRAN ODT) 8 mg disintegrating tablet Take 8 mg by mouth every 8 hours as needed. - potassium chloride 20 mEq TbER Take 20 mEq by mouth once daily. - omeprazole (PRILOSEC) 20 mg capsule Take 1 capsule by mouth once daily. - ondansetron (ZOFRAN) 8 mg tablet Take 1 tablet by mouth every 12 hours as needed for nausea/vomiting. - omeprazole (PRILOSEC) 20 mg capsule Take 1 capsule by mouth once daily. - fluvoxaMINE ER (LUVOX CR) 150 mg capsule Take 1 capsule by mouth daily at bedtime. - CPAP Continue Auto PAP @ 5-20 cm of water with humidification. Mask (per patient preference) optional chin strap (if indicated) , filters, tubing, humidifier and lifetime supplies. AMBROSE G47.33 - buPROPion SR (WELLBUTRIN SR) 150 mg 12 hr tablet Take 1 tablet by mouth two times a day. - ferrous sulfate 325 mg (65 mg iron) tablet Take 1 tablet by mouth every other day. - multivitamin tablet Take 1 tablet by mouth once daily. Problem List As Of Date 12/12/2024 Noted Resolved AMBROSE on CPAP [G47.33] 02/18/2006 Abnormal weight gain [R63.5] 02/18/2006 01/25/2015 MALAISE AND FATIGUE NEC [R53.81, R53.83] 02/18/2006 ANXIETY STATE NOS [F41.1] 02/18/2006 Hypercholesteremia <130 [E78.00] 02/18/2006 OVERWEIGHT [E66.9] 02/18/2006 01/25/2015 DEPRESSIVE DISORDER NEC [F32.89] 02/20/2008 Cellulitis and abscess of unspecified site [L03*07/04/2009 01/25/2015 Non-healing surgical wound [T81.89XA] 07/06/2009 01/25/2015 Other adjustment reaction with predominant dist*01/17/2011 01/25/2015 Non morbid obesity due to excess calories [E66.*02/07/2017 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6] 06/08/2022 06/27/2022 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 Comprehensive metabolic 2000 panelon 12-12-2024 Albumin [Mass/Vol] 4.2 g/dL Normal 3.9-4.9 [facility] Comment on above: Order Comment: Speci men Type: BLOOD SPECIMEN Ordering Facility: [facility] Address: [address] [place] [address] Performed By: #### 2 4323-8, 42271-7 #### [facility] CLIA [id number] [address] [place] [address] [place] ALP [Catalytic activity/Vol] 120 U/L High 38-113 [facility] Comment on above: Order Comment: Speci men Type: BLOOD SPECIMEN Ordering Facility: [facility] Address: [address] [place] [address] Performed By: #### 2 4323-8, 00317-7 #### [facility] CLIA [id number] [address] [place] [address] [place] ALT [Catalytic activity/Vol] 20 U/L Normal 10-54 [facility] Comment on above: Order Comment: Speci men Type: BLOOD SPECIMEN Ordering Facility: [facility] Address: [address] [place] [address] Performed By: #### 2 4323-8, 27256-1 #### [facility] CLIA [id number] [address] [place] [address] [place] Anion gap [Moles/Vol] 13 mmol/L Normal 8-15 [facility] Comment on above: Order Comment: Speci men Type: BLOOD SPECIMEN Ordering Facility: [facility] Address: [address] [place] [address] Performed By: #### 2 4323-8, 96647-4 #### [facility] CLIA [id number] [address] [place] [address] [place] AST [Catalytic activity/Vol] 16 U/L Normal 14-40 [facility] Comment on above: Order Comment: Speci men Type: BLOOD SPECIMEN Ordering Facility: [facility] Address: [address] [place] [address] Performed By: #### 2 4323-8, 37381-3 #### [facility] CLIA [id number] [address] [place] [address] [place] Bilirubin [Mass/Vol] 0.3 mg/dL Normal 0.2-1.3 [facility] Comment on above: Order Comment: Speci men Type: BLOOD SPECIMEN Ordering Facility: [facility] Address: [address] [place] [address] Performed By: #### 2 4323-8, 63140-1 #### [facility] CLIA [id number] [address] [place] [address] [place] Calcium [Mass/Vol] 9.1 mg/dL Normal 8.5-10.2 [facility] Comment on above: Order Comment: Speci men Type: BLOOD SPECIMEN Ordering Facility: [facility] Address: [address] [place] [address] Performed By: #### 2 4323-8, 48270-4 #### [facility] CLIA [id number] [address] [place], [place] [address] [place] Chloride [Moles/Vol] 108 mmol/L High 98-107 [facility] Comment on above: Order Comment: Speci men Type: BLOOD SPECIMEN Ordering Facility: [facility] Address: [address] [place] [address] Performed By: #### 2 4323-8, 78724-4 #### [facility] CLIA [id number] [address] [place] [address] [place] CO2 [Moles/Vol] 12 mmol/L Low 22-30 [facility] Comment on above: Order Comment: Speci men Type: BLOOD SPECIMEN Ordering Facility: [facility] Address: [address] [place] [address] Performed By: #### 2 4323-8, 38757-7 #### [facility] CLIA [id number] [address] [place] [address] [place] Creatinine [Mass/Vol] 2.50 mg/dL High 0.73-1.22 [facility] Comment on above: Order Comment: Speci men Type: BLOOD SPECIMEN Ordering Facility: [facility] Address: [address] [place] [address] Performed By: #### 2 4323-8, 99125-1 #### [facility] CLIA [id number] [address] [place] [address] [place] Creatinine and Glomerular filtration rate.predicted panel (S/P/Bld) 30 mL/min/1.73m??? Low >=60 [facility] Comment on above: Order Comment: Speci men Type: BLOOD SPECIMEN Ordering Facility: [facility] Address: [address] [place] [address] Result Comment: Marlen mated Glomerular Filtration Rate (eGFR) is calculated using the 2020 CKD-EPI creatinine equation. This equation utilizes serum creatinine, sex, and age as parameters. The creatinine assay has traceable calibration to isotope dilution-mass spectrometry. Refer to KDIGO guidelines for clinical interpretation. In patients with unstable renal function, e.g. those with acute kidney injury, the eGFR may not accurately reflect actual GFR. Performed By: #### 2 4323-8, 95726-1 #### [facility] CLIA [id number] [address] [address] [place] Glucose [Mass/Vol] 105 mg/dL High 74-99 [facility] Comment on above: Order Comment: Rose summers Type: BLOOD SPECIMEN Ordering Facility: [facility] Address: [address] [place] [address] Result Comment: The [place] Diabetes Association (ADA) provides guidance for cutoff values for fasting glucose and random glucose. The ADA defines fasting as no caloric intake for at least 8 hours. Fasting plasma glucose results between 100 to 125 mg/dL indicate increased risk for diabetes (prediabetes). Fasting plasma glucose results greater than or equal to 126 mg/dL meet the criteria for diagnosis of diabetes. In the absence of unequivocal hyperglycemia, results should be confirmed by repeat testing. In a patient with classic symptoms of hyperglycemia or hyperglycemic crisis, random plasma glucose results greater than or equal to 200 mg/dL meet the criteria for diagnosis of diabetes. Reference: Standards of Medical Care in Diabetes 2016, [place] Diabetes Association. Diabetes Care. 2016.39(Suppl 1). Performed By: #### 2 4323-8, #### [facility] CLIA [id number] [address] [place], [place] [address] [place] Potassium [Moles/Vol] 3.3 mmol/L Low 3.7-5.1 [facility] Comment on above: Order Comment: Rose summers Type: BLOOD SPECIMEN Ordering Facility: [facility] Address: [address] [place] [address] Performed By: #### 2 4323-8, #### [facility] CLIA [id number] [address] [place] [address] [place] Protein [Mass/Vol] 7.7 g/dL Normal 6.3-8.0 [facility] Comment on above: Order Comment: Speci men Type: BLOOD SPECIMEN Ordering Facility: [facility] Address: [address] [place], [place] [address] Performed By: #### 2 4323-8, 28509-6 #### [facility] CLIA [id number] [address] [place], [place] [address] [place] Sodium [Moles/Vol] 133 mmol/L Low 136-144 [facility] Comment on above: Order Comment: Speci men Type: BLOOD SPECIMEN Ordering Facility: [facility] Address: [address] [place], [place] [address] Performed By: #### 2 4323-8, 97756-9 #### [facility] CLIA [id number] [address] [place], [place] [address] [place] Urea nitrogen [Mass/Vol] 50 mg/dL High 9-24 [facility] Comment on above: Order Comment: Speci men Type: BLOOD SPECIMEN Ordering Facility: [facility] Address: [address] [place], [place] [address] Performed By: #### 2 4323-8, 34612-3 #### [facility] CLIA [id number] [address] [place], [place] [address] [place] Lipid 1996 panelon 5 Cholesterol [Mass/Vol] 103 mg/dL Normal <200 [facility] Comment on above: Order Comment: Speci men Type: BLOOD SPECIMEN Ordering Facility: [facility] Address: [address] [place], [place] [id number] Result Comment: <200 mg/dL, Desirable 200-239 mg/dL, Borderline high >239 mg/dL, High Performed By: #### 2 4323-8, 51669-4 #### [facility] CLIA [id number] [address] [place], [place] [address] [place] Cholesterol in HDL [Mass/Vol] 46 mg/dL Normal >39 [facility] Comment on above: Order Comment: Speci men Type: BLOOD SPECIMEN Ordering Facility: [facility] Address: [address] [place] [address] Result Comment: 40-5 9 mg/dL, Acceptable >59 mg/dL, High: Negative risk factor for coronary heart disease <40 mg/dL, Low: Positive risk factor for coronary heart disease Performed By: #### 2 4323-8, 62518-6 #### [facility] CLIA [id number] [address] [place] [address] OF [facility] Cholesterol in LDL [Mass/Vol] 48 mg/dL Normal <100 [facility] Comment on above: Order Comment: Speci men Type: BLOOD SPECIMEN Ordering Facility: [facility] Address: [address] [place] [address] Result Comment: <100 mg/dL, Optimal 100-129 mg/dL, Near optimal/above optimal 130-159 mg/dL, Borderline high 160-189 mg/dL, High >189 mg/dL, Very high Secondary prevention optimal LDL Cholesterol levels are recommended to be < 70 mg/dL Performed By: #### 2 4323-8, 73158-1 #### [facility] CLIA [id number] [address] [place] [address] STATES OF [facility] Cholesterol in LDL/Cholesterol in HDL [Mass ratio] 1.04 {ratio} Normal <2.54 [facility] Comment on above: Order Comment: Speci melina Type: BLOOD SPECIMEN Ordering Facility: [facility] Address: [address] [place] [address] Result Comment: Refraj weissce: 1. National Cholesterol Education Program ATP III Guideline At-A-Glance Quick Desk Reference: National Heart, Lung, and Blood Bend. National Institutes of Health. 2001: NIH Publication No. 01-3305. 2. An International Atherosclerosis Society position paper: global recommendations for the management of dyslipidemia: executive summary, Atherosclerosis. 2014: 232(2):410-413. Performed By: #### 2 4323-8, 40316-1 #### [facility] CLIA [id number] [address] [id number] [address] [place] Cholesterol in VLDL [Mass/Vol] 9 mg/dL Normal <30 [facility] Comment on above: Order Comment: Speci men Type: BLOOD SPECIMEN Ordering Facility: [facility] Address: [address] [place] [address] Performed By: #### 2 4323-8, 41106-9 #### [facility] CLIA [id number] [address] [place] [address] [place] Cholesterol non HDL [Mass/Vol] 57 mg/dL Normal <130 [facility] Comment on above: Order Comment: Speci men Type: BLOOD SPECIMEN Ordering Facility: [facility] Address: [address] [place] [address] Result Comment: <130 mg/dL, Optimal 130-159 mg/dL, Near optimal/above optimal 160-189 mg/dL, Borderline high 190-219 mg/dL, High >219 mg/dL, Very high Secondary prevention optimal non HDL Cholesterol levels are recommended to be <100 mg/dL Performed By: #### 2 4323-8, 41187-1 #### [facility] CLIA [id number] [address] [place] [address] [place] Cholesterol.total/Katie sterol in HDL [Mass ratio] 2.24 {ratio} Normal <5.10 [facility] Comment on above: Order Comment: Speci men Type: BLOOD SPECIMEN Ordering Facility: [facility] Address: [address] [place] [address] Performed By: #### 2 4323-8, #### [facility] CLIA [id number] [address] [place], [place] [address] [place] FASTING TIME 12 hrs Normal [facility] Comment on above: Order Comment: Speci men Type: BLOOD SPECIMEN Ordering Facility: [facility] Address: [address] [place] [address] Performed By: #### 2 4323-8, 39069-1 #### [facility] CLIA [id number] [address] [place] [id number] [place] Triglyceride [Mass/Vol] 43 mg/dL Normal <150 [facility] Comment on above: Order Comment: Speci men Type: BLOOD SPECIMEN Ordering Facility: [facility] Address: [address] [place] [address] Result Comment: <150 mg/dL, Normal 150-199 mg/dL, Borderline high 200-499 mg/dL, High >499 mg/dL, Very high Performed By: #### 2 4323-8, 41931-3 #### [facility] CLIA [id number] [address] [place], [place] [address] [place] Basic metabolic 2000 panelon 12-11-2024 Anion gap [Moles/Vol] 15 mmol/L Normal 8-15 [facility] Comment on above: Order Comment: Speci men Type: BLOOD SPECIMENOrdering Facility: [facility] Address: [address] [place] [address] Performed By: #### 2 4321-2 ####[facility] [id number] [place] [id number] [place] Calcium [Mass/Vol] 9.0 mg/dL Normal 8.5-10.2 [facility] Comment on above: Order Comment: Speci men Type: BLOOD SPECIMENOrdering Facility: [facility] Address: [address] [place] [address] Performed By: #### 2 4321-2 ####[facility] [id number] [place] [id number] [place] Chloride [Moles/Vol] 110 mmol/L High 98-107 [facility] Comment on above: Order Comment: Speci men Type: BLOOD SPECIMENOrdering Facility: [facility] Address: [address] [place] [address] Performed By: #### 2 4321-2 ####[facility] [id number] [place] [id number] [place] CO2 [Moles/Vol] 9 mmol/L Critically low 22-30 [facility] Comment on above: Order Comment: Speci men Type: BLOOD SPECIMENOrdering Facility: [facility] Address: [address] [place] [address] Performed By: #### 2 4321-2 ####[facility] [id number] [place] [address] [place] Creatinine [Mass/Vol] 2.63 mg/dL High 0.73-1.22 [facility] Comment on above: Order Comment: Speci men Type: BLOOD SPECIMENOrdering Facility: [facility] Address: [address] [place] [address] Performed By: #### 2 4321-2 ####[facility] [id number] [place] [address] [place] Creatinine and Glomerular filtration rate.predicted panel (S/P/Bld) 28 mL/min/1.73m??? Low >=60 [facility] Comment on above: Order Comment: Speci men Type: BLOOD SPECIMENOrdering Facility: [facility] Address: [address] [place] [address] Result Comment: Marlen mated Glomerular Filtration Rate (eGFR) is calculated using the 2020 CKD-EPI creatinine equation. This equation utilizes serum creatinine, sex, and age as parameters. The creatinine assay has traceable calibration to isotope dilution-mass spectrometry. Refer to KDIGO guidelines for clinical interpretation. In patients with unstable renal function, e.g. those with acute kidney injury, the eGFR may not accurately reflect actual GFR. Performed By: #### 2 4321-2 ####[facility] [id number] [place] [address] [place] Glucose [Mass/Vol] 112 mg/dL High 74-99 [facility] Comment on above: Order Comment: Speci men Type: BLOOD SPECIMENOrdering Facility: [facility] Address: [address] [place] [address] Result Comment: The [place] Diabetes Association (ADA) provides guidance for cutoff values for fasting glucose and random glucose. The ADA defines fasting as no caloric intake for at least 8 hours. Fasting plasma glucose results between 100 to 125 mg/dL indicate increased risk for diabetes (prediabetes). Fasting plasma glucose results greater than or equal to 126 mg/dL meet the criteria for diagnosis of diabetes. In the absence of unequivocal hyperglycemia, results should be confirmed by repeat testing. In a patient with classic symptoms of hyperglycemia or hyperglycemic crisis, random plasma glucose results greater than or equal to 200 mg/dL meet the criteria for diagnosis of diabetes. Reference: Standards of Medical Care in Diabetes 2016, [place] Diabetes Association. Diabetes Care. 2016.39(Suppl 1). Performed By: #### 2 4321-2 ####[facility] [id number] [place] [address] [place] Potassium [Moles/Vol] 3.9 mmol/L Normal 3.7-5.1 [facility] Comment on above: Order Comment: Speci men Type: BLOOD SPECIMENOrdering Facility: [facility] Address: [address] [place] [address] Performed By: #### 2 4321-2 ####[facility] [id number] [place] [address] [place] Sodium [Moles/Vol] 134 mmol/L Low 136-144 [facility] Comment on above: Order Comment: Speci men Type: BLOOD SPECIMENOrdering Facility: [facility] Address: [address] [place] [address] Performed By: #### 2 4321-2 ####[facility] [id number] [place] [id number] [place] Urea nitrogen [Mass/Vol] 56 mg/dL High 9-24 [facility] Comment on above: Order Comment: Speci men Type: BLOOD SPECIMENOrdering Facility: [facility] Address: [address] [place] [address] Performed By: #### 2 4321-2 ####[facility] [id number] [place] [address] [place] Basic metabolic 2000 panelOr dered By: Joan Magdaleno on 12-04-2024 Anion gap [Moles/Vol] 13 mmol/L 8 - 15 mmol/L [facility] Calcium [Mass/Vol] 9.3 mg/dL 8.5 - 10. 2 mg/dL [facility] Chloride [Moles/Vol] 109 mmol/L High 98 - 10 7 mmol/L [facility] CO2 [Moles/Vol] 11 mmol/L Low 22 - 30 mmol/L [facility] Creatinine [Mass/Vol] 2.18 mg/dL High 0.73 - 1.22 mg/dL [facility] GFR/1.73 sq M.predicted among non-blacks MDRD (S/P/Bld) [Vol rate/Area] 36 mL/min/{1.73_m2} Low - PINF [facility] Comment on above: Estimated Glomerular Filtration Rate (eGFR) is calculated using the 2020 CKD-EPI creatinine equation. This equation utilizes serum creatinine, sex, and age as parameters. The creatinine assay has traceable calibration to isotope dilution-mass spectrometry. Refer to KDIGO guidelines for clinical interpretation. In patients with unstable renal function, e.g. those with acute kidney injury, the eGFR may not accurately reflect actual GFR. Glucose [Mass/Vol] 94 mg/dL 74 - 99 mg/dL [facility] Comment on above: The [place] Diabete s Association (ADA) provides guidance for cutoff values for fasting glucose and random glucose. The ADA defines fasting as no caloric intake for at least 8 hours. Fasting plasma glucose results between 100 to 125 mg/dL indicate increased risk for diabetes (prediabetes). Fasting plasma glucose results greater than or equal to 126 mg/dL meet the criteria for diagnosis of diabetes. In the absence of unequivocal hyperglycemia, results should be confirmed by repeat testing. In a patient with classic symptoms of hyperglycemia or hyperglycemic crisis, random plasma glucose results greater than or equal to 200 mg/dL meet the criteria for diagnosis of diabetes. Reference: Standards of Medical Care in Diabetes 2016, [place] Diabetes Association. Diabetes Care. 2016.39(Suppl 1). Interpretation and review of laboratory results Abnormal [facility] Potassium [Moles/Vol] 4.6 mmol/L 3.7 - 5.1 mmol/L [facility] Sodium [Moles/Vol] 133 mmol/L Low 136 - 144 mmol/L [facility] Urea nitrogen [Mass/Vol] 51 mg/dL High 9 - 24 mg/dL [facility] Basic metabolic 2000 panelon 12-04-2024 Anion gap [Moles/Vol] 13 mmol/L Normal 8-15 [facility] Comment on above: Order Comment: Speci men Type: BLOOD SPECIMEN Ordering Facility: [facility] Address: [address] [place] [address] Performed By: #### 2 4323-8, 35018-3 #### [facility] CLIA [id number] [address] [place] [address] [place] Calcium [Mass/Vol] 9.3 mg/dL Normal 8.5-10.2 [facility] Comment on above: Order Comment: Speci men Type: BLOOD SPECIMEN Ordering Facility: [facility] Address: [address] [place] [address] Performed By: #### 2 4323-8, 14057-0 #### [facility] CLIA [id number] [address] [place] [address] [place] Chloride [Moles/Vol] 109 mmol/L High 98-107 [facility] Comment on above: Order Comment: Speci men Type: BLOOD SPECIMEN Ordering Facility: [facility] Address: [address] [place] [address] Performed By: #### 2 4323-8, 14884-3 #### [facility] CLIA [id number] [address] [place] [address] [place] CO2 [Moles/Vol] 11 mmol/L Low 22-30 [facility] Comment on above: Order Comment: Speci men Type: BLOOD SPECIMEN Ordering Facility: [facility] Address: [address] [place] [address] Performed By: #### 2 4323-8, 65156-2 #### [facility] CLIA [id number] [address] [place] [address] [place] Creatinine [Mass/Vol] 2.18 mg/dL High 0.73-1.22 [facility] Comment on above: Order Comment: Rose summers Type: BLOOD SPECIMEN Ordering Facility: [facility] Address: [address] [place] [address] Performed By: #### 2 4323-8, 83935-4 #### [facility] CLIA [id number] [address] [place] [address] [place] Creatinine and Glomerular filtration rate.predicted panel (S/P/Bld) 36 mL/min/1.73m??? Low >=60 [facility] Comment on above: Order Comment: Rose summers Type: BLOOD SPECIMEN Ordering Facility: [facility] Address: [address] [place] [address] Result Comment: Marlen mated Glomerular Filtration Rate (eGFR) is calculated using the 2020 CKD-EPI creatinine equation. This equation utilizes serum creatinine, sex, and age as parameters. The creatinine assay has traceable calibration to isotope dilution-mass spectrometry. Refer to KDIGO guidelines for clinical interpretation. In patients with unstable renal function, e.g. those with acute kidney injury, the eGFR may not accurately reflect actual GFR. Performed By: #### 2 4323-8, 29072-9 #### [facility] CLIA [id number] [address] [place] [address] [place] Glucose [Mass/Vol] 94 mg/dL Normal 74-99 [facility] Comment on above: Order Comment: Rose summers Type: BLOOD SPECIMEN Ordering Facility: [facility] Address: [address] [place] [address] Result Comment: The [place] Diabetes Association (ADA) provides guidance for cutoff values for fasting glucose and random glucose. The ADA defines fasting as no caloric intake for at least 8 hours. Fasting plasma glucose results between 100 to 125 mg/dL indicate increased risk for diabetes (prediabetes). Fasting plasma glucose results greater than or equal to 126 mg/dL meet the criteria for diagnosis of diabetes. In the absence of unequivocal hyperglycemia, results should be confirmed by repeat testing. In a patient with classic symptoms of hyperglycemia or hyperglycemic crisis, random plasma glucose results greater than or equal to 200 mg/dL meet the criteria for diagnosis of diabetes. Reference: Standards of Medical Care in Diabetes 2016, [place] Diabetes Association. Diabetes Care. 2016.39(Suppl 1). Performed By: #### 2 4323-8, 96865-1 #### [facility] CLIA [id number] [address] [place] [address] [place] Potassium [Moles/Vol] 4.6 mmol/L Normal 3.7-5.1 [facility] Comment on above: Order Comment: Rose summers Type: BLOOD SPECIMEN Ordering Facility: [facility] Address: [address] [place] [address] Performed By: #### 2 4323-8, 48774-6 #### [facility] CLIA [id number] [address] [place] [address] [place] Sodium [Moles/Vol] 133 mmol/L Low 136-144 [facility] Comment on above: Order Comment: Rose summers Type: BLOOD SPECIMEN Ordering Facility: [facility] Address: [address] [place] [address] Performed By: #### 2 4323-8, 21002-6 #### [facility] CLIA [id number] [address] [place] [address] [place] Urea nitrogen [Mass/Vol] 51 mg/dL High 9-24 [facility] Comment on above: Order Comment: Rose summers Type: BLOOD SPECIMEN Ordering Facility: [facility] Address: [address] [place], [place] [address] Performed By: #### 2 4323-8, 39004-3 #### [facility] CLIA [id number] [address] [place], [place] [address] [place] CNOVon 12-04-2024 CNOV Office Visit (INTMWS ) DOV BURROWS ([id number]) 1970 M Date Time Provider Department 12/04/24 11:00 AM JULISSA UGARTE INTMWS During your visit today, we recorded the following information about you: Pulse Respiration Blood pressure Weight 73/minute 16/minute 106/71 95 kg Julissa Ugarte, DIRECTOR [employer] 12/14/2024 7:15 AM Addendum SUBJECTIVE: Hepatitis C Screening Never done HIV Screening Never done Hepatitis B Vaccine(1 of 3 - 19+ 3-dose series) Never done Shingrix Vaccine(1 of 2) Never done Meningococcal B Vaccine(2 of 5 - Increased Risk Bexsero 3-dose series) due on 07/17/2022 Meningococcal Conjugate Vaccine(2 - Risk 2-dose series) due on 08/13/2022 Colorectal Cancer Screening due on 04/26/2023 Influenza Vaccine(1) due on 05/31/2024 Covid-19 Vaccine( season) due on 05/31/2024 HPI Dov Burrows is a 54 year old male. 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 Follow-up scan in 6 months recommended. He called the office in August reporting that he appeared to have passed a clamp into his stoma bag. Asymptomatic. Advised to continue to monitor. He was seen at [facility] November 27, 2024 for nausea vomiting and diarrhea, hypotension due to hypovolemia and acute kidney injury. Discharged home 11/29/2024. Hospital discharge follow-up patient out reach was November 30, 2024. He presented with nausea vomiting and increased ostomy output. Had not been feeling well for several weeks prior to arrival. Noted family had norovirus. Blood pressure was decreased on arrival. Treated with IV fluids in the ER. Pulse ox at 94% room air. BUN at 51, creatinine of 3.0. Noted to have metabolic acidosis. He was treated with IV bicarbonate and IV fluid hydration. Repletion for potassium magnesium and phosphate. His renal function improved slowly during his admission with creatinine of 1.65 at discharge. All other labs normalized at discharge except potassium so was sent with 40 mEq to be taken twice daily x 14 days he was advised to take Metamucil 3 times daily to bulk up stools some. As needed Imodium discussed. Reports no nausea, vomiting or diarrhea since discharge. Oral intake: 100 ounces is estimated fluid intake, 2 sports drinks daily with liquid IV added. Ostomy output is decreased, back to baseline. Given 14 days of potassium supplementation, no prior need for this. Using fiber gummies, 5 mg three per day. Has used immodium 2-3 times that have help to slow output. Hyperlipidemia. Mr. Burrows reports doing well on current therapy His most recent lipid panels are: Cholesterol, Total (mg/dL) Date Value 05/15/2024 150 01/04/2023 200 10/11/2018 175 HDL Cholesterol (mg/dL) Date Value 05/15/2024 50 01/04/2023 47 10/11/2018 42 LDL Cholesterol (mg/dL) Date Value 05/15/2024 85 01/04/2023 135 10/11/2018 118 LDL Chol, [place] (mg/dL) Date Value 11/03/2011 109 09/28/2010 115 Triglyceride (mg/dL) Date Value 05/15/2024 76 01/04/2023 89 10/11/2018 75 Review of Systems Constitutional: Negative. Respiratory: Negative. Cardiovascular: Negative. Gastrointestinal: Negative. Objective BP 106/71 Pulse 73 Resp 16 Wt 95 kg (209 lb 7 oz) BMI 27.63 kg/m? Physical Exam Vitals and nursing note reviewed. Constitutional: Appearance: Normal appearance. HENT: Head: Normocephalic and atraumatic. Eyes: Conjunctiva/sclera: Conjunctivae normal. Neck: Thyroid: No thyroid mass or thyromegaly. Vascular: Normal carotid pulses. No JVD. Cardiovascular: Rate and Rhythm: Normal rate and regular rhythm. Pulses: Carotid pulses are 2+ on the right side and 2+ on the left side. Radial pulses are 2+ on the right side and 2+ on the left side. Heart sounds: Normal heart sounds. Pulmonary: Effort: Pulmonary effort is normal. Breath sounds: Normal breath sounds. Abdominal: General: Mike (more content not included)... Normal [facility] CBC W/Diff, Automatedon PATH REV Reviewed Normal [facility] Comment on above: Result Comment: SLIG HT LEUKOCYTOSIS WITH MILD GRANULOCYTOSIS AND NO SIGNFICIANT LEFT SHIFT. NORMOCYTIC NORMOCHROMIC MILD ANEMIA. ADEQUATE PLATELETS. Izabella Graff MD 12/02/2024 AMENDED REPORT 12/02/24 1353 PATH REV previously reported as: January Performed By: #### L 500.4050, L501.5200, L501.2300, L100.0100 #### [facility] [address] [place], [address] Absolute neutrophil countOrd ered By: Sara Quezada on 11-29-2024 Neutrophils (Bld) [#/Vol] 7.9 10*3/uL High 2.0-7.7 [facility] BUN/creatinine ratioOrdered By: Sara Quezada on 11-29-2024 Urea nitrogen/Creatinine [Mass ratio] 19.6 mg/mg 10-20 [facility] Basic Metabolic Profile (BMP )on 11-29-2024 Anion gap [Moles/Vol] 13 mmol/L Normal 5-15 [facility] Comment on above: Performed By: #### L 500.4050, L501.5200, L501.2300, L100.0100 #### [facility] [address] [place], [address] Chloride [Moles/Vol] 100 mmol/L Normal 96-108 [facility] Comment on above: Performed By: #### L 500.4050, L501.5200, L501.2300, L100.0100 #### [facility] [address] [place], [address] Potassium [Moles/Vol] 2.8 mmol/L Low 3.3-5.1 [facility] Comment on above: Performed By: #### L 500.4050, L501.5200, L501.2300, L100.0100 #### [facility] [address] [place], [address] Sodium [Moles/Vol] 137 mmol/L Normal 133-145 [facility] Comment on above: Performed By: #### L 500.4050, L501.5200, L501.2300, L100.0100 #### [facility] [address] [place], [address] Basophil percentageOrdered B y: Sara Quezada on 11-29-2024 Basophils/100 WBC (Bld) 0.4 % 0-1 [facility] Bilirubin, totalOrdered By: Sara Quezada on 11-29-2024 Bilirubin [Mass/Vol] 0.28 mg/dL 0.00-1.30 [facility] Carbon dioxide measurementOr dered By: Sara Quezada on 11-29-2024 CO2 [Moles/Vol] 24.2 mmol/L 22.0-29.0 [facility] Chloride measurementOrdered By: Sara Quzeada on 11-29-2024 Chloride [Moles/Vol] 100 mmol/L 96-108 [facility] Comprehensive Metabolic Prof ilon 11-29-2024 Albumin [Mass/Vol] 3.4 g/dL Low 3.5-5.0 [facility] Comment on above: Performed By: #### L 500.4050, L501.5200, L501.2300, L100.0100 #### [facility] [address] [place], [address] Albumin/Globulin [Mass ratio] 1.0 {ratio} Normal 0.9-2.4 [facility] Comment on above: Performed By: #### L 500.4050, L501.5200, L501.2300, L100.0100 #### [facility] [address] [place], [address] ALK PHOS 91 U/L Normal 40-129 [facility] Comment on above: Performed By: #### L 500.4050, L501.5200, L501.2300, L100.0100 #### [facility] [address] [place], [address] ALT [Catalytic activity/Vol] 18 U/L Normal <=46 [facility] Comment on above: Performed By: #### L 500.4050, L501.5200, L501.2300, L100.0100 #### [facility] [address] [place], [address] Anion gap [Moles/Vol] 12 mmol/L Normal 5-15 [facility] Comment on above: Performed By: #### L 500.4050, L501.5200, L501.2300, L100.0100 #### [facility] [address] [place], [address] AST [Catalytic activity/Vol] 17 U/L Normal <=37 [facility] Comment on above: Performed By: #### L 500.4050, L501.5200, L501.2300, L100.0100 #### [facility] [address] [place], [address] Bilirubin [Mass/Vol] 0.28 mg/dL Normal 0.00-1.30 [facility] Comment on above: Performed By: #### L 500.4050, L501.5200, L501.2300, L100.0100 #### [facility] [address] [place], [address] BUN/CRE 19.4 RATIO Normal 10-20 [facility] Comment on above: Performed By: #### L 500.4050, L501.5200, L501.2300, L100.0100 #### [facility] [address] [place], [address] Calcium [Mass/Vol] 8.9 mg/dL Normal 7.6-11.0 [facility] Comment on above: Performed By: #### L 500.4050, L501.5200, L501.2300, L100.0100 #### [facility] [address] [place], [address] Chloride [Moles/Vol] 97 mmol/L Normal 96-108 [facility] Comment on above: Performed By: #### L 500.4050, L501.5200, L501.2300, L100.0100 #### [facility] [address] [place], [address] CO2 [Moles/Vol] 26.2 mmol/L Normal 22.0-29.0 [facility] Comment on above: Performed By: #### L 500.4050, L501.5200, L501.2300, L100.0100 #### [facility] [address] [place], [address] Creatinine [Mass/Vol] 1.86 mg/dL High 0.70-1.20 [facility] Comment on above: Performed By: #### L 500.4050, L501.5200, L501.2300, L100.0100 #### [facility] [address] [place], [address] ECRCL 50.99 ml/min Normal 50-250 [facility] Comment on above: Performed By: #### L 500.4050, L501.5200, L501.2300, L100.0100 #### [facility] [address] [place], [address] GFR/1.73 sq M.predicted among non-blacks MDRD (S/P/Bld) [Vol rate/Area] 43 mL/min/{1.73_m2} Low >60 [facility] Comment on above: Result Comment: mL/m in/1.73m2 CKD-EPI Creatinine Equation (2020) Performed By: #### L 500.4050, L501.5200, L501.2300, L100.0100 #### [facility] [address] [place], [address] Globulin (S) [Mass/Vol] 3.5 g/dL Normal 2.2-4.2 [facility] Comment on above: Performed By: #### L 500.4050, L501.5200, L501.2300, L100.0100 #### [facility] [address] [place], [address] Glucose [Mass/Vol] 129 mg/dL High 70-99 [facility] Comment on above: Performed By: #### L 500.4050, L501.5200, L501.2300, L100.0100 #### [facility] [address] [place], [address] Potassium [Moles/Vol] 2.7 mmol/L Invalid Interpretation Code 3.3-5.1 [facility] Comment on above: Result Comment: Crit ical Result(s) Called at 11/29/2024 08:16 by Dominick Perera to Alexia Garcia??Results read back by same. Performed By: #### L 500.4050, L501.5200, L501.2300, L100.0100 #### [facility] [address] [place], [address] Sodium [Moles/Vol] 135 mmol/L Normal 133-145 [facility] Comment on above: Performed By: #### L 500.4050, L501.5200, L501.2300, L100.0100 #### [facility] [address] [place], [address] T PROT 6.9 g/dL Normal 5.9-8.4 [facility] Comment on above: Performed By: #### L 500.4050, L501.5200, L501.2300, L100.0100 #### [facility] [address] [place], [address] Urea nitrogen [Mass/Vol] 36 mg/dL High 4-19 [facility] Comment on above: Performed By: #### L 500.4050, L501.5200, L501.2300, L100.0100 #### [facility] [address] [place], [address] Eosinophil percentageOrdered By: Sara Quezada on 11-29-2024 Eosinophils/100 WBC (Bld) 1.0 % 0-5 [facility] Erythrocyte distribution wid th ratioOrdered By: Sara Quezada on 11-29-2024 Erythrocyte distribution width (RBC) [Ratio] 14.5 % 11.6-14.6 [facility] Erythrocyte distribution wid th standard deviationOrdered By: Sara Quezada on 11-29-2024 Erythrocyte distribution width (RBC) [Entitic vol] 48.4 fL High 35.1-43.9 [facility] Estimation of creatinine emma aranceOrdered By: Sara Quezada on 11-29-2024 Estimated Creatinine Clearance Calc 56.79 ml/min 50-250 [facility] GFR/1.73 sq M.predicted jaime g non-blacks MDRD (S/P/Bld) [Vol rate/Area]Ordered By: Sara Quezada on 11-29-2024 Estimated GFR (MDRD) Non-Af Amer 49 Low >60 [facility] Comment on above: mL/min/1.73m2 CKD-EP I Creatinine Equation (2020) Hematocrit Auto (Bld) [Volum e fraction]Ordered By: Sara Quezada on 11-29-2024 Hematocrit (Bld) [Volume fraction] 37.0 % Low 40-54 [facility] Hemoglobin measurementOrdere d By: Sara Quezada on 11-29-2024 Hemoglobin (Bld) [Mass/Vol] 12.4 g/dL Low 13.0-16.5 [facility] Immature granulocytes/100 WB C Auto (Bld)Ordered By: Sara Quezada on 11-29-2024 Immature granulocytes/100 WBC (Bld) 0.300 % 0.0-0.9 [facility] Comment on above: IG% - Immature Granu locytes (promyelocytes, myelocytes and metamyelocytes) > 1% indicates that a LEFT SHIFT is Present. Laboratory - Chemistry and C hemistry - challengeOrdered By: Sara Quezada on 11-29-2024 AST [Catalytic activity/Vol] 17 U/L <38 [facility] Lymphocytes Auto (Unsp spec) [#/Vol]Ordered By: Sara Quezada on 11-29-2024 Lymphocytes (Bld) [#/Vol] 1.42 10*3/uL 0.83-4.51 [facility] Lymphocytes/100 WBC Auto (Un sp spec)Ordered By: Sara Quezada on 11-29-2024 Lymphocytes/100 WBC (Bld) 12.9 % Low 19-41 [facility] MCV (mean corpuscular volume ) determinationOrdered By: Sara Quezada on 11-29-2024 MCV (RBC) [Entitic vol] 91.4 fL 80-94 [facility] Magnesiumon 11-29-2024 Magnesium [Mass/Vol] 1.6 mg/dL Normal 1.5-2.2 [facility] Comment on above: Performed By: #### L 500.4050, L501.5200, L501.2300, L100.0100 #### [facility] [address] [place], [address] Magnesium (Unsp spec) [Mass/ Vol]Ordered By: Sara Quezada on 11-29-2024 Magnesium [Mass/Vol] 1.6 mg/dL 1.5-2.2 [facility] Mean corpuscular hemoglobin (MCH) determinationOrdered By: Sara Quezada on 11-29-2024 MCH (RBC) [Entitic mass] 30.6 pg 27.0-32.0 [facility] Mean corpuscular hemoglobin concentration (MCHC) determinationOrdered By: Sara Quezada on 11-29-2024 MCHC (RBC) [Mass/Vol] 33.5 g/dL 32-36 [facility] Mean platelet volume determi nationOrdered By: Sara Quezada on 11-29-2024 Platelet mean volume (Bld) [Entitic vol] 8.9 fL 6.2-12.0 [facility] Monocyte percentageOrdered B y: Sara Quezada on 11-29-2024 Monocytes/100 WBC (Bld) 13.7 % High 0-10 [facility] Neutrophil percentageOrdered By: Sara Quezada on 11-29-2024 Neutrophils/100 WBC (Bld) 71.7 % High 47-70 [facility] Nucleated red blood cell per centageOrdered By: Sara Quezada on 11-29-2024 Nucleated RBC/100 WBC (Bld) [Ratio] 0 % 0-5 [facility] Pathologist review Marco (Unsp spec) [Interp]Ordered By: Sara Quezada on 11-29-2024 Differential Pathologist's Review Reviewed [facility] Comment on above: Previous reported re sult: Lashae barton Edited by: MANN on 12/02/24:1353SLIGHT LEUKOCYTOSIS WITH MILD GRANULOCYTOSIS AND NO SIGNFICIANT LEFT SHIFT.NORMOCYTIC NORMOCHROMIC MILD ANEMIA.ADEQUATE PLATELETS.Izabella Graff MD 12/02/2024 AMENDED REPORT 12/02/24 1353 PATH REV previously reported as: Lashae barton Phosphoruson 11-29-2024 Phosphate [Mass/Vol] 2.1 mg/dL Low 2.7-4.5 [facility] Comment on above: Performed By: #### L 500.4050, L501.5200, L501.2300, L100.0100 #### [facility] [address] [place], [address] Platelet countOrdered By: Chio Quezada on 11-29-2024 Platelets (Bld) [#/Vol] 377 10*3/uL 150-450 [facility] RBC Auto (Bld) [#/Vol]Ordere d By: Sara Quezada on 11-29-2024 RBC (Bld) [#/Vol] 4.05 10*6/uL Low 4.6-6.2 [facility] Serum creatinine measurement (mass/volume)Ordered By: Sara Quezada on 11-29-2024 Creatinine [Mass/Vol] 1.67 mg/dL High 0.70-1.20 [facility] Serum globulin measurementOr dered By: Sara Quezada on 11-29-2024 Globulin (S) [Mass/Vol] 3.5 g/dL 2.2-4.2 [facility] Serum glucose measurement (m ass/volume)Ordered By: Sara Quezada on 11-29-2024 Glucose [Mass/Vol] 101 mg/dL High 70-99 [facility] Serum or plasma alanine cisneros otransferase (ALT) measurementOrdered By: Sara Quezada on 11-29-2024 ALT [Catalytic activity/Vol] 18 U/L <47 [facility] Serum or plasma albumin tran urement (mass/volume)Ordered By: Sara Quezada on 11-29-2024 Albumin [Mass/Vol] 3.4 g/dL Low 3.5-5.0 [facility] Serum or plasma albumin/glob ulin mass ratioOrdered By: Sara Quezada on 11-29-2024 Albumin/Globulin [Mass ratio] 1.0 {ratio} 0.9-2.4 [facility] Serum or plasma alkaline katie sphatase measurementOrdered By: Sara Quezada on 11-29-2024 ALP [Catalytic activity/Vol] 91 U/L 40-129 [facility] Serum or plasma anion gap de termination (moles/volume)Ordered By: Sara Quezada on 11-29-2024 Anion gap [Moles/Vol] 13 mmol/L 5-15 [facility] Serum or plasma calcium tran urement (mass/volume)Ordered By: Sara Quezada on 11-29-2024 Calcium [Mass/Vol] 8.7 mg/dL 7.6-11.0 [facility] Serum or plasma potassium me asurementOrdered By: Sara Quezada on 11-29-2024 Potassium [Moles/Vol] 2.8 mmol/L Low 3.3-5.1 [facility] Serum or plasma sodium measu rement (moles/volume)Ordered By: Sara Quezada on 11-29-2024 Sodium [Moles/Vol] 137 mmol/L 133-145 [facility] Serum or plasma urea nitroge n measurement (mass/volume)Ordered By: Sara Quezada on 11-29-2024 Urea nitrogen [Mass/Vol] 33 mg/dL High 4-19 [facility] Serum phosphorus measurement Ordered By: Sara Quezada on 11-29-2024 Phosphorus Level 2.1 mg/dL Low 2.7-4.5 [facility] TSH DL <= 0.005 mIU/L QnOrde red By: Sara Quezada on 11-29-2024 Thyroid Stimulating Hormone (TSH) 2.560 uIU/mL 0.300-4.200 [facility] Thyroid Stim Hormone (TSH)on 11-29-2024 TSH 2.560 uIU/mL Normal 0.300-4.200 [facility] Comment on above: Performed By: #### L 500.4050, L501.5200, L501.2300, L100.0100 #### [facility] [address] [place] [address]. [place], [address] Total proteinOrdered By: Sangita Quezada on 11-29-2024 Protein [Mass/Vol] 6.9 g/dL 5.9-8.4 [facility] White blood cell (WBC) count Ordered By: Sara Quezada on 11-29-2024 WBC (Bld) [#/Vol] 11.1 10*3/uL High 4.4-11.0 [facility] Basic Metabolic Profile (BMP )on 11-28-2024 Anion gap [Moles/Vol] 16 mmol/L High 5-15 [facility] Comment on above: Performed By: #### L 500.4050, L501.5200, L501.2300, L100.0100 #### [facility] [address] [place], [address] BUN/CRE 21.1 RATIO High 10-20 [facility] Comment on above: Performed By: #### L 500.4050, L501.5200, L501.2300, L100.0100 #### [facility] [address] [place], [address] Calcium [Mass/Vol] 8.9 mg/dL Normal 7.6-11.0 [facility] Comment on above: Performed By: #### L 500.4050, L501.5200, L501.2300, L100.0100 #### [facility] [address] [place], [address] Chloride [Moles/Vol] 102 mmol/L Normal 96-108 [facility] Comment on above: Performed By: #### L 500.4050, L501.5200, L501.2300, L100.0100 #### [facility] [address] [place], [address] CO2 [Moles/Vol] 14.7 mmol/L Low 22.0-29.0 [facility] Comment on above: Performed By: #### L 500.4050, L501.5200, L501.2300, L100.0100 #### [facility] [address] [place], [address] Creatinine [Mass/Vol] 2.18 mg/dL High 0.70-1.20 [facility] Comment on above: Performed By: #### L 500.4050, L501.5200, L501.2300, L100.0100 #### [facility] [address] [place], [address] ECRCL 43.51 ml/min Normal [facility] Comment on above: Performed By: #### L 500.4050, L501.5200, L501.2300, L100.0100 #### [facility] [address] [place], [address] GFR/1.73 sq M.predicted among non-blacks MDRD (S/P/Bld) [Vol rate/Area] 36 mL/min/{1.73_m2} Low >60 [facility] Comment on above: Result Comment: mL/m in/1.73m2 CKD-EPI Creatinine Equation (2020) Performed By: #### L 500.4050, L501.5200, L501.2300, L100.0100 #### [facility] [address] [place], [address] Glucose [Mass/Vol] 122 mg/dL High 70-99 [facility] Comment on above: Performed By: #### L 500.4050, L501.5200, L501.2300, L100.0100 #### [facility] [address] [place], [address] Potassium [Moles/Vol] 2.8 mmol/L Low 3.3-5.1 [facility] Comment on above: Performed By: #### L 500.4050, L501.5200, L501.2300, L100.0100 #### [facility] [address] [place], [address] Sodium [Moles/Vol] 133 mmol/L Normal 133-145 [facility] Comment on above: Performed By: #### L 500.4050, L501.5200, L501.2300, L100.0100 #### [facility] [address] [place], [address] Urea nitrogen [Mass/Vol] 46 mg/dL High 4-19 [facility] Comment on above: Performed By: #### L 500.4050, L501.5200, L501.2300, L100.0100 #### [facility] [address] [place], [address] Anion gap [Moles/Vol] 16 mmol/L High 5-15 [facility] Comment on above: Performed By: #### L 500.4050, L501.5200, L501.2300, L100.0100 #### [facility] [address] [place], [address] BUN/CRE 21.2 RATIO High 10-20 [facility] Comment on above: Performed By: #### L 500.4050, L501.5200, L501.2300, L100.0100 #### [facility] [address] [place], [address] Calcium [Mass/Vol] 8.9 mg/dL Normal 7.6-11.0 [facility] Comment on above: Performed By: #### L 500.4050, L501.5200, L501.2300, L100.0100 #### [facility] [address] [place], [address] Chloride [Moles/Vol] 102 mmol/L Normal 96-108 [facility] Comment on above: Performed By: #### L 500.4050, L501.5200, L501.2300, L100.0100 #### [facility] [address] [place], [address] CO2 [Moles/Vol] 13.6 mmol/L Low 22.0-29.0 [facility] Comment on above: Performed By: #### L 500.4050, L501.5200, L501.2300, L100.0100 #### [facility] [address] [place], [address] Creatinine [Mass/Vol] 2.20 mg/dL High 0.70-1.20 [facility] Comment on above: Performed By: #### L 500.4050, L501.5200, L501.2300, L100.0100 #### [facility] [address] [place], [address] ECRCL 43.11 ml/min Normal [facility] Comment on above: Performed By: #### L 500.4050, L501.5200, L501.2300, L100.0100 #### [facility] [address] [place], [address] GFR/1.73 sq M.predicted among non-blacks MDRD (S/P/Bld) [Vol rate/Area] 35 mL/min/{1.73_m2} Low >60 [facility] Comment on above: Result Comment: mL/m in/1.73m2 CKD-EPI Creatinine Equation (2020) Performed By: #### L 500.4050, L501.5200, L501.2300, L100.0100 #### [facility] [address] [place], [address] Glucose [Mass/Vol] 125 mg/dL High 70-99 [facility] Comment on above: Performed By: #### L 500.4050, L501.5200, L501.2300, L100.0100 #### [facility] [address] [place], [address] Potassium [Moles/Vol] 3.0 mmol/L Low 3.3-5.1 [facility] Comment on above: Performed By: #### L 500.4050, L501.5200, L501.2300, L100.0100 #### [facility] [address] [place], [address] Sodium [Moles/Vol] 132 mmol/L Low 133-145 [facility] Comment on above: Performed By: #### L 500.4050, L501.5200, L501.2300, L100.0100 #### [facility] [address] [place], [address] Urea nitrogen [Mass/Vol] 47 mg/dL High 4-19 [facility] Comment on above: Performed By: #### L 500.4050, L501.5200, L501.2300, L100.0100 #### [facility] [address] [place], [address] CBC W/Diff, Automatedon 03-0 -2024 Absolute Lymph 0.85 X10 3/uL Normal 0.83-4.51 [facility] Comment on above: Performed By: #### L 500.4050, L501.5200, L501.2300, L100.0100 #### [facility] [address] [place], [address] Absolute Neut 7.9 X10 3/uL High 2.0-7.7 [facility] Comment on above: Performed By: #### L 500.4050, L501.5200, L501.2300, L100.0100 #### [facility] [address] [place], [address] Basophils/100 WBC (Bld) 0.4 % Normal 0-1 [facility] Comment on above: Performed By: #### L 500.4050, L501.5200, L501.2300, L100.0100 #### [facility] [address] [place], [address] Eosinophils/100 WBC (Bld) 0.6 % Normal 0-5 [facility] Comment on above: Performed By: #### L 500.4050, L501.5200, L501.2300, L100.0100 #### [facility] [address] [place], [address] Erythrocyte distribution width (RBC) [Ratio] 14.5 % Normal 11.6-14.6 [facility] Comment on above: Performed By: #### L 500.4050, L501.5200, L501.2300, L100.0100 #### [facility] [address] [place], [address] Hematocrit (Bld) [Volume fraction] 40.7 % Normal 40-54 [facility] Comment on above: Performed By: #### L 500.4050, L501.5200, L501.2300, L100.0100 #### [facility] [address] [place], [address] Hemoglobin (Bld) [Mass/Vol] 13.6 g/dL Normal 13.0-16.5 [facility] Comment on above: Performed By: #### L 500.4050, L501.5200, L501.2300, L100.0100 #### [facility] [address] [place], [address] IG% 0.500 Normal 0.0-0.9 [facility] Comment on above: Result Comment: IG% - Immature Granulocytes (promyelocytes, myelocytes and metamyelocytes) > 1% indicates that a LEFT SHIFT is Present. Performed By: #### L 500.4050, L501.5200, L501.2300, L100.0100 #### [facility] [address] [place], [address] Lymphocytes/100 WBC (Bld) 8.2 % Low 19-41 [facility] Comment on above: Performed By: #### L 500.4050, L501.5200, L501.2300, L100.0100 #### [facility] [address] [place], [address] MCH (RBC) [Entitic mass] 30.8 pg Normal 27.0-32.0 [facility] Comment on above: Performed By: #### L 500.4050, L501.5200, L501.2300, L100.0100 #### [facility] [address] [place], [address] MCHC (RBC) [Mass/Vol] 33.4 g/dL Normal 32-36 [facility] Comment on above: Performed By: #### L 500.4050, L501.5200, L501.2300, L100.0100 #### [facility] [address] [place], [address] MCV (RBC) [Entitic vol] 92.1 fL Normal 80-94 [facility] Comment on above: Performed By: #### L 500.4050, L501.5200, L501.2300, L100.0100 #### [facility] [address] [place], [address] Monocytes/100 WBC (Bld) 13.8 % High 0-10 [facility] Comment on above: Performed By: #### L 500.4050, L501.5200, L501.2300, L100.0100 #### [facility] [address] [place], [address] Neutrophils/100 WBC (Bld) 76.5 % High 47-70 [facility] Comment on above: Performed By: #### L 500.4050, L501.5200, L501.2300, L100.0100 #### [facility] [address] [place], [address] Nucleated RBC (Bld) [#/Vol] 0 10*3/uL Normal 0-5 [facility] Comment on above: Performed By: #### L 500.4050, L501.5200, L501.2300, L100.0100 #### [facility] [address] [place], [address] Platelet mean volume (Bld) [Entitic vol] 8.5 fL Normal 6.2-12.0 [facility] Comment on above: Performed By: #### L 500.4050, L501.5200, L501.2300, L100.0100 #### [facility] [address] [place], [address] Platelets (Bld) [#/Vol] 383 10*3/uL Normal 150-450 [facility] Comment on above: Performed By: #### L 500.4050, L501.5200, L501.2300, L100.0100 #### [facility] [address] [place], [address] RBC (Bld) [#/Vol] 4.42 10*6/uL Low 4.6-6.2 [facility] Comment on above: Performed By: #### L 500.4050, L501.5200, L501.2300, L100.0100 #### [facility] [facility] [address] [place], [address] RDW SD 49.2 fl High 35.1-43.9 [facility] Comment on above: Performed By: #### L 500.4050, L501.5200, L501.2300, L100.0100 #### [facility] [address] [place], [address] WBC (Bld) [#/Vol] 10.3 10*3/uL Normal 4.4-11.0 [facility] Comment on above: Performed By: #### L 500.4050, L501.5200, L501.2300, L100.0100 #### [facility] [address] [place], [address] Comprehensive Metabolic Prof ilon 11-28-2024 Albumin [Mass/Vol] 3.9 g/dL Normal 3.5-5.0 [facility] Comment on above: Performed By: #### L 500.4050, L501.5200, L501.2300, L100.0100 #### [facility] [address] [place], [address] Albumin/Globulin [Mass ratio] 1.0 {ratio} Normal 0.9-2.4 [facility] Comment on above: Performed By: #### L 500.4050, L501.5200, L501.2300, L100.0100 #### [facility] [address] [place], [address] ALK PHOS 105 U/L Normal 40-129 [facility] Comment on above: Performed By: #### L 500.4050, L501.5200, L501.2300, L100.0100 #### [facility] [address] [place], [address] ALT [Catalytic activity/Vol] 27 U/L Normal <=46 [facility] Comment on above: Performed By: #### L 500.4050, L501.5200, L501.2300, L100.0100 #### [facility] [address] [place], [address] Anion gap [Moles/Vol] 16 mmol/L High 5-15 [facility] Comment on above: Performed By: #### L 500.4050, L501.5200, L501.2300, L100.0100 #### [facility] [address] [place], [address] AST [Catalytic activity/Vol] 20 U/L Normal <=37 [facility] Comment on above: Performed By: #### L 500.4050, L501.5200, L501.2300, L100.0100 #### [facility] [address] [place], [address] Bilirubin [Mass/Vol] 0.20 mg/dL Normal 0.00-1.30 [facility] Comment on above: Performed By: #### L 500.4050, L501.5200, L501.2300, L100.0100 #### [facility] [address] [place], [address] BUN/CRE 21.1 RATIO High 10-20 [facility] Comment on above: Performed By: #### L 500.4050, L501.5200, L501.2300, L100.0100 #### [facility] [address] [place], [address] Calcium [Mass/Vol] 9.2 mg/dL Normal 7.6-11.0 [facility] Comment on above: Performed By: #### L 500.4050, L501.5200, L501.2300, L100.0100 #### [facility] [address] [place], [address] Chloride [Moles/Vol] 100 mmol/L Normal 96-108 [facility] Comment on above: Performed By: #### L 500.4050, L501.5200, L501.2300, L100.0100 #### [facility] [address] [place], [address] CO2 [Moles/Vol] 15.7 mmol/L Low 22.0-29.0 [facility] Comment on above: Performed By: #### L 500.4050, L501.5200, L501.2300, L100.0100 #### [facility] [address] [place], [address] Creatinine [Mass/Vol] 2.22 mg/dL High 0.70-1.20 [facility] Comment on above: Performed By: #### L 500.4050, L501.5200, L501.2300, L100.0100 #### [facility] [address] [place], [address] ECRCL 42.72 ml/min Normal [facility] Comment on above: Performed By: #### L 500.4050, L501.5200, L501.2300, L100.0100 #### [facility] [address] [place], [address] GFR/1.73 sq M.predicted among non-blacks MDRD (S/P/Bld) [Vol rate/Area] 35 mL/min/{1.73_m2} Low >60 [facility] Comment on above: Result Comment: mL/m in/1.73m2 CKD-EPI Creatinine Equation (2020) Performed By: #### L 500.4050, L501.5200, L501.2300, L100.0100 #### [facility] [address] [place], [address] Globulin (S) [Mass/Vol] 4.0 g/dL Normal 2.2-4.2 [facility] Comment on above: Performed By: #### L 500.4050, L501.5200, L501.2300, L100.0100 #### [facility] [address] [place], [address] Glucose [Mass/Vol] 132 mg/dL High 70-99 [facility] Comment on above: Performed By: #### L 500.4050, L501.5200, L501.2300, L100.0100 #### [facility] [address] [place], [address] Potassium [Moles/Vol] 3.2 mmol/L Low 3.3-5.1 [facility] Comment on above: Performed By: #### L 500.4050, L501.5200, L501.2300, L100.0100 #### [facility] [address] [place], [address] Sodium [Moles/Vol] 132 mmol/L Low 133-145 [facility] Comment on above: Performed By: #### L 500.4050, L501.5200, L501.2300, L100.0100 #### [facility] [address] [place], [address] T PROT 7.9 g/dL Normal 5.9-8.4 [facility] Comment on above: Performed By: #### L 500.4050, L501.5200, L501.2300, L100.0100 #### [facility] [address] [place], [address] Urea nitrogen [Mass/Vol] 47 mg/dL High 4-19 [facility] Comment on above: Performed By: #### L 500.4050, L501.5200, L501.2300, L100.0100 #### [facility] [address] [place], [address] Creatinine, Urine (random)on 11-28-2024 UR CREAT 96.10 mg/dL Normal 39-259 [facility] Comment on above: Performed By: #### L 500.4050, L501.5200, L501.2300, L100.0100 #### [facility] [address] [place], [address] Magnesiumon 11-28-2024 Magnesium [Mass/Vol] 1.3 mg/dL Low 1.5-2.2 [facility] Comment on above: Performed By: #### L 500.4050, L501.5200, L501.2300, L100.0100 #### [facility] [address] [place], [address] Phosphoruson 11-28-2024 Phosphate [Mass/Vol] 3.0 mg/dL Normal 2.7-4.5 [facility] Comment on above: Performed By: #### L 500.4050, L501.5200, L501.2300, L100.0100 #### [facility] [address] [place], [address] Urinalysis, Completeon 11-28 CAST,FINE GRAN 10-25 SEEN Normal 0-5 [facility] Comment on above: Order Comment: CLEAN CATCH Performed By: #### L 500.4050, L501.5200, L501.2300, L100.0100 #### [facility] [address] [place], [address] Mucus Ql (Urine sed) RARE Normal [facility] Comment on above: Order Comment: CLEAN CATCH Performed By: #### L 500.4050, L501.5200, L501.2300, L100.0100 #### [facility] [address] [place], [address] BACTERIA RARE Normal None Seen [facility] Comment on above: Order Comment: CLEAN CATCH Performed By: #### L 500.4050, L501.5200, L501.2300, L100.0100 #### [facility] [address] [place], [address] EPI,SQUAMOUS 0-5 SEEN Normal 0-5 [facility] Comment on above: Order Comment: CLEAN CATCH Performed By: #### L 500.4050, L501.5200, L501.2300, L100.0100 #### [facility] [address] [place], [address] RBC 0 SEEN Normal 0-5 [facility] Comment on above: Order Comment: CLEAN CATCH Performed By: #### L 500.4050, L501.5200, L501.2300, L100.0100 #### [facility] [address] [place], [address] WBC 5-10 SEEN Normal 0-5 [facility] Comment on above: Order Comment: CLEAN CATCH Performed By: #### L 500.4050, L501.5200, L501.2300, L100.0100 #### [facility] [address] [place], [address] BILIRUBIN URINE Negative Normal Negative [facility] Comment on above: Order Comment: CLEAN CATCH Performed By: #### L 500.4050, L501.5200, L501.2300, L100.0100 #### [facility] [address] [place], [address] Clarity (U) Clear Normal Clear [facility] Comment on above: Order Comment: CLEAN CATCH Performed By: #### L 500.4050, L501.5200, L501.2300, L100.0100 #### [facility] [address] [place], [address] Color (U) Straw Normal Yellow [facility] Comment on above: Order Comment: CLEAN CATCH Performed By: #### L 500.4050, L501.5200, L501.2300, L100.0100 #### [facility] [address] [place], [address] GLUCOSE, UR Normal Normal Normal [facility] Comment on above: Order Comment: CLEAN CATCH Performed By: #### L 500.4050, L501.5200, L501.2300, L100.0100 #### [facility] [address] [place], [address] KETONE UR Negative Normal Negative [facility] Comment on above: Order Comment: CLEAN CATCH Performed By: #### L 500.4050, L501.5200, L501.2300, L100.0100 #### [facility] [address] [place], [address] LEUK ESTERASE Negative Normal Negative [facility] Comment on above: Order Comment: CLEAN CATCH Performed By: #### L 500.4050, L501.5200, L501.2300, L100.0100 #### [facility] [address] [place], [address] Nitrite Ql (U) Negative Normal Negative [facility] Comment on above: Order Comment: CLEAN CATCH Performed By: #### L 500.4050, L501.5200, L501.2300, L100.0100 #### [facility] [address] [place], [address] OCCULT BLOOD-UR 25 /ul Abnormal Negative [facility] Comment on above: Order Comment: CLEAN CATCH Performed By: #### L 500.4050, L501.5200, L501.2300, L100.0100 #### [facility] [address] [place], [address] pH UR 6.0 Normal 5.0 - 8.0 [facility] Comment on above: Order Comment: CLEAN CATCH Performed By: #### L 500.4050, L501.5200, L501.2300, L100.0100 #### [facility] [address] [place], [address] PROT DIPSTX 30 mg/dl Abnormal Negative [facility] Comment on above: Order Comment: CLEAN CATCH Performed By: #### L 500.4050, L501.5200, L501.2300, L100.0100 #### [facility] [address] [place], [address] SP.GR. DIPSTX 1.015 Normal 1.002-1.030 [facility] Comment on above: Order Comment: CLEAN CATCH Performed By: #### L 500.4050, L501.5200, L501.2300, L100.0100 #### [facility] [address] [place], [address] UROBILI Normal Normal Normal [facility] Comment on above: Order Comment: CLEAN CATCH Performed By: #### L 500.4050, L501.5200, L501.2300, L100.0100 #### [facility] [address] [place], [address] Urine Sodiumon 11-28-2024 UR NA < 20 Normal Not Establ. [facility] Comment on above: Performed By: #### L 500.4050, L501.5200, L501.2300, L100.0100 #### [facility] [address] [place], [address] Arterial patency Wrist arter y --pre arterial punctureOrdered By: Sara Quezada on 11-27-2024 Albin Test Positive [facility] Bacteria LM.HPF (Urine sed) [#/Area]Ordered By: Sara Quezada on 11-27-2024 Urine Bacteria RARE /hpf None Seen [facility] Base excess Calc (BldV) [Mol es/Vol]Ordered By: Sara Quezada on 11-27-2024 Blood Gas Base Excess -18 mmol/L Low -2-2 [facility] Basic Metabolic Profile (BMP )on 11-27-2024 Anion gap [Moles/Vol] 15 mmol/L Normal 5-15 [facility] Comment on above: Performed By: #### L 500.4050, L501.5200, L501.2300, L100.0100 #### [facility] [address] [place], [address] BUN/CRE 22.2 RATIO High 10-20 [facility] Comment on above: Performed By: #### L 500.4050, L501.5200, L501.2300, L100.0100 #### [facility] [address] [place], [address] Calcium [Mass/Vol] 8.7 mg/dL Normal 7.6-11.0 [facility] Comment on above: Performed By: #### L 500.4050, L501.5200, L501.2300, L100.0100 #### [facility] [address] [place], [address] Chloride [Moles/Vol] 104 mmol/L Normal 96-108 [facility] Comment on above: Performed By: #### L 500.4050, L501.5200, L501.2300, L100.0100 #### [facility] [address] [place], [address] CO2 [Moles/Vol] 12.9 mmol/L Low 22.0-29.0 [facility] Comment on above: Performed By: #### L 500.4050, L501.5200, L501.2300, L100.0100 #### [facility] [address] [place], [address] Creatinine [Mass/Vol] 2.19 mg/dL High 0.70-1.20 [facility] Comment on above: Performed By: #### L 500.4050, L501.5200, L501.2300, L100.0100 #### [facility] [address] [place], [address] ECRCL 43.31 ml/min Normal [facility] Comment on above: Performed By: #### L 500.4050, L501.5200, L501.2300, L100.0100 #### [facility] [address] [place], [address] GFR/1.73 sq M.predicted among non-blacks MDRD (S/P/Bld) [Vol rate/Area] 35 mL/min/{1.73_m2} Low >60 [facility] Comment on above: Result Comment: mL/m in/1.73m2 CKD-EPI Creatinine Equation (2020) Performed By: #### L 500.4050, L501.5200, L501.2300, L100.0100 #### [facility] [address] [place], [address] Glucose [Mass/Vol] 113 mg/dL High 70-99 [facility] Comment on above: Performed By: #### L 500.4050, L501.5200, L501.2300, L100.0100 #### [facility] [address] [place], [address] Potassium [Moles/Vol] 2.9 mmol/L Low 3.3-5.1 [facility] Comment on above: Performed By: #### L 500.4050, L501.5200, L501.2300, L100.0100 #### [facility] [address] [place], [address] Sodium [Moles/Vol] 132 mmol/L Low 133-145 [facility] Comment on above: Performed By: #### L 500.4050, L501.5200, L501.2300, L100.0100 #### [facility] [address] [place], [address] Urea nitrogen [Mass/Vol] 49 mg/dL High 4-19 [facility] Comment on above: Performed By: #### L 500.4050, L501.5200, L501.2300, L100.0100 #### [facility] [address] [place], [address] Anion gap [Moles/Vol] 14 mmol/L Normal 5-15 [facility] Comment on above: Performed By: #### L 500.2500 #### [facility] [address] [place], [address] BUN/CRE 21.9 RATIO High 10-20 [facility] Comment on above: Performed By: #### L 500.2500 #### [facility] [address] [place], [address] Calcium [Mass/Vol] 8.5 mg/dL Normal 7.6-11.0 [facility] Comment on above: Performed By: #### L 500.2500 #### [facility] [address] [place], [address] Chloride [Moles/Vol] 105 mmol/L Normal 96-108 [facility] Comment on above: Performed By: #### L 500.2500 #### [facility] [address] [place], [address] CO2 [Moles/Vol] 14.6 mmol/L Low 22.0-29.0 [facility] Comment on above: Performed By: #### L 500.2500 #### [facility] [address] [place], [address] Creatinine [Mass/Vol] 2.27 mg/dL High 0.70-1.20 [facility] Comment on above: Performed By: #### L 500.2500 #### [facility] [address] [place], [address] ECRCL 41.78 ml/min Normal [facility] Comment on above: Performed By: #### L 500.2500 #### [facility] [address] [place], [address] GFR/1.73 sq M.predicted among non-blacks MDRD (S/P/Bld) [Vol rate/Area] 34 mL/min/{1.73_m2} Low >60 [facility] Comment on above: Result Comment: mL/m in/1.73m2 CKD-EPI Creatinine Equation (2020) Performed By: #### L 500.2500 #### [facility] [address] [place], [address] Glucose [Mass/Vol] 92 mg/dL Normal 70-99 [facility] Comment on above: Performed By: #### L 500.2500 #### [facility] [address] [place], [address] Potassium [Moles/Vol] 3.0 mmol/L Low 3.3-5.1 [facility] Comment on above: Performed By: #### L 500.2500 #### [facility] [address] [place], [address] Sodium [Moles/Vol] 134 mmol/L Normal 133-145 [facility] Comment on above: Performed By: #### L 500.2500 #### [facility] [address] [place], [address] Urea nitrogen [Mass/Vol] 50 mg/dL High 4-19 [facility] Comment on above: Performed By: #### L 500.2500 #### [facility] [address] [place], [address] Anion gap [Moles/Vol] 15 mmol/L Normal 5-15 [facility] Comment on above: Performed By: #### L 500.2500 #### [facility] [address] [place], [address] BUN/CRE 20.4 RATIO High 10-20 [facility] Comment on above: Performed By: #### L 500.2500 #### [facility] [address] [place], [address] Calcium [Mass/Vol] 8.9 mg/dL Normal 7.6-11.0 [facility] Comment on above: Performed By: #### L 500.2500 #### [facility] [address] [place], [address] Chloride [Moles/Vol] 104 mmol/L Normal 96-108 [facility] Comment on above: Performed By: #### L 500.2500 #### [facility] [address] [place], [address] CO2 [Moles/Vol] 11.0 mmol/L Low 22.0-29.0 [facility] Comment on above: Performed By: #### L 500.2500 #### [facility] [address] [place], [address] Creatinine [Mass/Vol] 2.47 mg/dL High 0.70-1.20 [facility] Comment on above: Performed By: #### L 500.2500 #### [facility] [address] [place], [address] ECRCL 38.40 ml/min Normal [facility] Comment on above: Performed By: #### L 500.2500 #### [facility] [address] [place], [address] GFR/1.73 sq M.predicted among non-blacks MDRD (S/P/Bld) [Vol rate/Area] 31 mL/min/{1.73_m2} Low >60 [facility] Comment on above: Result Comment: mL/m in/1.73m2 CKD-EPI Creatinine Equation (2020) Performed By: #### L 500.2500 #### [facility] [address] [place], [address] Glucose [Mass/Vol] 98 mg/dL Normal 70-99 [facility] Comment on above: Performed By: #### L 500.2500 #### [facility] [address] [place], [address] Potassium [Moles/Vol] 3.2 mmol/L Low 3.3-5.1 [facility] Comment on above: Performed By: #### L 500.2500 #### [facility] [address] [place], [address] Sodium [Moles/Vol] 130 mmol/L Low 133-145 [facility] Comment on above: Performed By: #### L 500.2500 #### [facility] [address] [place], [address] Urea nitrogen [Mass/Vol] 50 mg/dL High 4-19 [facility] Comment on above: Performed By: #### L 500.2500 #### [facility] [address] [place], [address] Anion gap [Moles/Vol] 14 mmol/L Normal 5-15 [facility] Comment on above: Performed By: #### L 500.4050, L501.5200, L501.2300, L100.0100 #### [facility] [address] [place], [address] BUN/CRE 21.2 RATIO High 10-20 [facility] Comment on above: Performed By: #### L 500.4050, L501.5200, L501.2300, L100.0100 #### [facility] [address] [place], [address] Calcium [Mass/Vol] 9.1 mg/dL Normal 7.6-11.0 [facility] Comment on above: Performed By: #### L 500.4050, L501.5200, L501.2300, L100.0100 #### [facility] [address] [place], [address] Chloride [Moles/Vol] 104 mmol/L Normal 96-108 [facility] Comment on above: Performed By: #### L 500.4050, L501.5200, L501.2300, L100.0100 #### [facility] [address] [place], [address] CO2 [Moles/Vol] 13.0 mmol/L Low 22.0-29.0 [facility] Comment on above: Performed By: #### L 500.4050, L501.5200, L501.2300, L100.0100 #### [facility] [address] [place], [address] Creatinine [Mass/Vol] 2.41 mg/dL High 0.70-1.20 [facility] Comment on above: Performed By: #### L 500.4050, L501.5200, L501.2300, L100.0100 #### [facility] [address] [place], [address] ECRCL 39.35 ml/min Normal [facility] Comment on above: Performed By: #### L 500.4050, L501.5200, L501.2300, L100.0100 #### [facility] [address] [place], [address] GFR/1.73 sq M.predicted among non-blacks MDRD (S/P/Bld) [Vol rate/Area] 32 mL/min/{1.73_m2} Low >60 [facility] Comment on above: Result Comment: mL/m in/1.73m2 CKD-EPI Creatinine Equation (2020) Performed By: #### L 500.4050, L501.5200, L501.2300, L100.0100 #### [facility] [address] [place], [address] Glucose [Mass/Vol] 88 mg/dL Normal 70-99 [facility] Comment on above: Performed By: #### L 500.4050, L501.5200, L501.2300, L100.0100 #### [facility] [address] [place], [address] Potassium [Moles/Vol] 3.3 mmol/L Normal 3.3-5.1 [facility] Comment on above: Performed By: #### L 500.4050, L501.5200, L501.2300, L100.0100 #### [facility] [address] [place], [address] Sodium [Moles/Vol] 131 mmol/L Low 133-145 [facility] Comment on above: Performed By: #### L 500.4050, L501.5200, L501.2300, L100.0100 #### [facility] [address] [place], [address] Urea nitrogen [Mass/Vol] 51 mg/dL High 4-19 [facility] Comment on above: Performed By: #### L 500.4050, L501.5200, L501.2300, L100.0100 #### [facility] [address] [place], [address] Anion gap [Moles/Vol] 15 mmol/L Normal 5-15 [facility] Comment on above: Performed By: #### L 500.4050, L501.5200, L501.2300, L100.0100 #### [facility] [address] [place], [address] BUN/CRE 20.9 RATIO High 10-20 [facility] Comment on above: Performed By: #### L 500.4050, L501.5200, L501.2300, L100.0100 #### [facility] [address] [place], [address] Calcium [Mass/Vol] 9.3 mg/dL Normal 7.6-11.0 [facility] Comment on above: Performed By: #### L 500.4050, L501.5200, L501.2300, L100.0100 #### [facility] [address] [place], [address] Chloride [Moles/Vol] 105 mmol/L Normal 96-108 [facility] Comment on above: Performed By: #### L 500.4050, L501.5200, L501.2300, L100.0100 #### [facility] [address] [place], [address] CO2 [Moles/Vol] 9.0 mmol/L Invalid Interpretation Code 22.0-29.0 [facility] Comment on above: Result Comment: Crit ical Result(s) Called at 1004: by: Jazmin Ivy to [facility].??Results read back by same. Performed By: #### L 500.4050, L501.5200, L501.2300, L100.0100 #### [facility] [address] [place], [address] Creatinine [Mass/Vol] 2.42 mg/dL High 0.70-1.20 [facility] Comment on above: Performed By: #### L 500.4050, L501.5200, L501.2300, L100.0100 #### [facility] [address] [place], [address] ECRCL 39.19 ml/min Normal [facility] Comment on above: Performed By: #### L 500.4050, L501.5200, L501.2300, L100.0100 #### [facility] [address] [place], [address] GFR/1.73 sq M.predicted among non-blacks MDRD (S/P/Bld) [Vol rate/Area] 31 mL/min/{1.73_m2} Low >60 [facility] Comment on above: Result Comment: mL/m in/1.73m2 CKD-EPI Creatinine Equation (2020) Performed By: #### L 500.4050, L501.5200, L501.2300, L100.0100 #### [facility] [address] [place], [address] Glucose [Mass/Vol] 106 mg/dL High 70-99 [facility] Comment on above: Performed By: #### L 500.4050, L501.5200, L501.2300, L100.0100 #### [facility] [address] [place], [address] Potassium [Moles/Vol] 3.7 mmol/L Normal 3.3-5.1 [facility] Comment on above: Performed By: #### L 500.4050, L501.5200, L501.2300, L100.0100 #### [facility] [address] [place], [address] Sodium [Moles/Vol] 129 mmol/L Low 133-145 [facility] Comment on above: Performed By: #### L 500.4050, L501.5200, L501.2300, L100.0100 #### [facility] [address] [place], [address] Urea nitrogen [Mass/Vol] 51 mg/dL High 4-19 [facility] Comment on above: Performed By: #### L 500.4050, L501.5200, L501.2300, L100.0100 #### [facility] [address] [place], [address] Bilirubin Test strip Ql (U)O rdered By: Sara Quezada on 11-27-2024 Bilirubin Ql (U) Negative Negative [facility] AL[facility] Positive Normal [facility] Comment on above: Performed By: #### L 500.4050, L501.5200, L501.2300, L100.0100 #### [facility] [address] [place], [address] Base excess Calc (Bld) [Moles/Vol] -18 mmol/L Low -2 to +2 [facility] Comment on above: Performed By: #### L 500.4050, L501.5200, L501.2300, L100.0100 #### [facility] [address] [place], [address] Blood Gas Type ART Normal [facility] Comment on above: Performed By: #### L 500.4050, L501.5200, L501.2300, L100.0100 #### [facility] [address] [place], [address] CO2 [Moles/Vol] 11 mmol/L Normal [facility] Comment on above: Performed By: #### L 500.4050, L501.5200, L501.2300, L100.0100 #### [facility] [address] [place], [address] HCO3 (Bld) [Moles/Vol] 10.0 mmol/L Low 22-26 [facility] Comment on above: Performed By: #### L 500.4050, L501.5200, L501.2300, L100.0100 #### [facility] [address] [place], [address] Mode Not entered Normal [facility] Comment on above: Performed By: #### L 500.4050, L501.5200, L501.2300, L100.0100 #### [facility] [address] [place], [address] O2 Delivery Dev Room Air Normal [facility] Comment on above: Performed By: #### L 500.4050, L501.5200, L501.2300, L100.0100 #### [facility] [address] [place], [address] pCO2 25.7 mmHg Low 35-45 [facility] Comment on above: Performed By: #### L 500.4050, L501.5200, L501.2300, L100.0100 #### [facility] [address] [place], [address] pH (Bld) 7.20 [pH] Low 7.35-7.45 [facility] Comment on above: Performed By: #### L 500.4050, L501.5200, L501.2300, L100.0100 #### [facility] [address] [place], [address] PO2 91 mmHG Normal 75-100 [facility] Comment on above: Performed By: #### L 500.4050, L501.5200, L501.2300, L100.0100 #### [facility] [address] [place], [address] Read Back By Yes [facility] Comment on above: Performed By: #### L 500.4050, L501.5200, L501.2300, L100.0100 #### [facility] [address] [place], [address] Results To wilbert [facility] Comment on above: Performed By: #### L 500.4050, L501.5200, L501.2300, L100.0100 #### [facility] [address] [place], [address] SITE R Radial [facility] Comment on above: Performed By: #### L 500.4050, L501.5200, L501.2300, L100.0100 #### [facility] [address] [place], [address] SO2 95 Normal 95-99 [facility] Comment on above: Performed By: #### L 500.4050, L501.5200, L501.2300, L100.0100 #### [facility] [address] [place], [address] Time Given 10:28:10 [facility] Comment on above: Performed By: #### L 500.4050, L501.5200, L501.2300, L100.0100 #### [facility] [address] [place], [address] Blood bicarbonate measuremen tOrdered By: Sara Quezada on 11-27-2024 Blood Gas Bicarbonate Actual 10.0 mmol/L Low - [facility] CBC W/Diff, Automatedon 11-01 Absolute Lymph 0.57 X10 3/uL Low 0.83-4.51 [facility] Comment on above: Performed By: #### L 100.0100 #### [facility] [address] [place], [address] Absolute Neut 7.7 X10 3/uL Normal 2.0-7.7 [facility] Comment on above: Performed By: #### L 100.0100 #### [facility] [address] [place], [address] Basophils/100 WBC (Bld) 0.3 % Normal 0-1 [facility] Comment on above: Performed By: #### L 100.0100 #### [facility] [address] [place], [address] Eosinophils/100 WBC (Bld) 0.8 % Normal 0-5 [facility] Comment on above: Performed By: #### L 100.0100 #### [facility] [address] [place], [address] Erythrocyte distribution width (RBC) [Ratio] 14.8 % High 11.6-14.6 [facility] Comment on above: Performed By: #### L 100.0100 #### [facility] [address] [place], [address] Hematocrit (Bld) [Volume fraction] 43.1 % Normal 40-54 [facility] Comment on above: Performed By: #### L 100.0100 #### [facility] [address] [place], [address] Hemoglobin (Bld) [Mass/Vol] 13.7 g/dL Normal 13.0-16.5 [facility] Comment on above: Performed By: #### L 100.0100 #### [facility] [address] [place], [address] IG% 0.600 Normal 0.0-0.9 [facility] Comment on above: Result Comment: IG% - Immature Granulocytes (promyelocytes, myelocytes and metamyelocytes) > 1% indicates that a LEFT SHIFT is Present. Performed By: #### L 100.0100 #### [facility] [address] [place], [address] Lymphocytes/100 WBC (Bld) 5.8 % Low 19-41 [facility] Comment on above: Performed By: #### L 100.0100 #### [facility] [address] [place], [address] MCH (RBC) [Entitic mass] 30.4 pg Normal 27.0-32.0 [facility] Comment on above: Performed By: #### L 100.0100 #### [facility] [address] [place], [address] MCHC (RBC) [Mass/Vol] 31.8 g/dL Low 32-36 [facility] Comment on above: Performed By: #### L 100.0100 #### [facility] [address] [place], [address] MCV (RBC) [Entitic vol] 95.6 fL High 80-94 [facility] Comment on above: Performed By: #### L 100.0100 #### [facility] [address] [place], [address] Monocytes/100 WBC (Bld) 13.5 % High 0-10 [facility] Comment on above: Performed By: #### L 100.0100 #### [facility] [address] [place], [address] Neutrophils/100 WBC (Bld) 79.0 % High 47-70 [facility] Comment on above: Performed By: #### L 100.0100 #### [facility] [address] [place], [address] Nucleated RBC (Bld) [#/Vol] 0.2 10*3/uL Normal 0-5 [facility] Comment on above: Performed By: #### L 100.0100 #### [facility] [address] [place], [address] Platelet mean volume (Bld) [Entitic vol] 8.5 fL Normal 6.2-12.0 [facility] Comment on above: Performed By: #### L 100.0100 #### [facility] [address] [place], [address] Platelets (Bld) [#/Vol] 381 10*3/uL Normal 150-450 [facility] Comment on above: Performed By: #### L 100.0100 #### [facility] [address] [place], [address] RBC (Bld) [#/Vol] 4.51 10*6/uL Low 4.6-6.2 [facility] Comment on above: Performed By: #### L 100.0100 #### [facility] [address] [place], [address] RDW SD 52.1 fl High 35.1-43.9 [facility] Comment on above: Performed By: #### L 100.0100 #### [facility] [address] [place], [address] WBC (Bld) [#/Vol] 9.8 10*3/uL Normal 4.4-11.0 [facility] Comment on above: Performed By: #### L 100.0100 #### [facility] [address] [place], [address] Creatinine Unsp time (U) [Ma ss/Vol]Ordered By: Sara Quezada on 11-27-2024 Creatinine (U) [Mass/Vol] 96.10 mg/dL 39-259 [facility] Epithelial cells.squamous LM Ql (Urine sed)Ordered By: Sara Quezada on 11-27-2024 Epithelial cells.squamous LM.HPF (Urine sed) [#/Area] 0 /[HPF] 0-5 [facility] Fine Granular Casts LM.LPF ( Urine sed) [#/Area]Ordered By: Sara Quezada on 11-27-2024 Urine Fine Granular Casts 10-25 SEEN /lpf 0-5 [facility] Glucose Ql (U)Ordered By: Chio Quezada on 11-27-2024 Urine Glucose (UA) Normal mg/dl Normal [facility] Ketones Test strip Ql (U)Ord ered By: Sara Quezada on 11-27-2024 Ketones Ql (U) Negative Negative [facility] Kidney and Bladderon 025 Kidney and Bladder [facility] [address], [place] [id number] Kidney and Bladder MR#: [id number] Acct: [id number] Name: DOV BURROWS Rep #: [id number] : 1970 M 54 From: Andre Cherry MD PCP: Dr. Harjeet Bernard MD Status: ADM IN Study: Kidney and Bladder Date of Exam: 11/27/24 Exam# [id number] Ordering Dr: Sara Quezada DO PROCEDURE: KIDNEY AND BLADDER REASON FOR EXAM: AK I TECHNIQUE: Bilateral renal ultrasound. COMPARISON: None. FINDINGS: Normal renal sizes, parenchymal thicknesses, and echotextures. No hydronephrosis. No cysts or large solid renal masses. RIGHT Kidney Size: 11.9 x 5.8 x 6.5 cm Volume: mL Cortical Thickness (if discernible): 1.3 (>6mm is normal) LEFT Kidney Size: 10.1 x 5.3 x 5.6 Volume: mL Cortical Thickness (if discernible): 1.1 (>6mm is normal) Superior to the left kidney there is a hypoechoic complex fluid collection measuring 9.4 x 8.3 x 5.9 cm. US/Kidney and Bladder IMPRESSION: 1. Normal echotexture of the bilateral kidneys with no evidence of hydronephrosis or masses. 2. Incidental note is made of complex fluid collection superior to the left kidney. Reading Location: [facility] CC: Dr. Sara Quezada DO; Dr. Harjeet Bernard MD [employer] Mechanic: Signed Normal [facility] Microscopic analysis of urin e for red blood cells (RBC)Ordered By: Sara Quezada on 11-27-2024 Urine RBC 0 SEEN /hpf 0-5 [facility] Mucus LM Ql (Urine sed)Order ed By: Sara Quezada on 11-27-2024 Mucus Ql (Urine sed) RARE /hpf [facility] Nitrite Test strip Ql (U)Ord ered By: Sara Quezada on 11-27-2024 Nitrite Ql (U) Negative Negative [facility] No Panel InformationOrdered By: Sara Quezada on 11-27-2024 Bld Gas Crit Called To/Read Back By Yes [facility] Blood Gas Notified Time 10:28:10 [facility] Blood Gas Notified Whom wilbert [facility] Blood Gas Sample Site R Radial [facility] Blood Gas Specimen Type ART [facility] Blood Gas Vent Mode Not entered [facility] Oxygen Delivery Device Room Air [facility] Oxygen saturation measuremen tOrdered By: Sara Quezada on 11-27-2024 Blood Gas Oxygen Saturation 95 % 95-99 [facility] Partial pressure of carbon d ioxide measurementOrdered By: Sara Quezada on 11-27-2024 Arterial Blood Partial Pressure CO2 25.7 mmHg Low 35-45 [facility] Partial pressure of oxygen m easurementOrdered By: Sara Quezada on 11-27-2024 Arterial Blood Partial Pressure O2 91 mmHG 75-100 [facility] Protein Test strip Ql (U)Ord ered By: Sara Quezada on 11-27-2024 Protein Ql (U) 30 mg/dl High Negative [facility] Sodium (U) [Moles/Vol]Ordere d By: Sara Quezada on 11-27-2024 Urine Random Sodium < 20 mmol/L Not Establ. [facility] Total carbon dioxide measure mentOrdered By: Sara Quezada on 11-27-2024 Blood Gas Total CO2 11 mmol/L [facility] Urine blood detectionOrdered By: Sara Quezada on 11-27-2024 Urine Occult Blood 25 /ul High Negative [facility] Urine clarityOrdered By: Sangita Quezada on 11-27-2024 Clarity (U) Clear Clear [facility] Urine color determinationOrd ered By: Sara Quezada on 11-27-2024 Color (U) Straw Yellow [facility] Urine leukocyte esterase det ection by dipstickOrdered By: Sara Quezada on 11-27-2024 Leukocyte esterase Test strip Ql (U) Negative Negative [facility] Urine pHOrdered By: Sara Quezada on 11-27-2024 pH (U) 6.0 [pH] 5.0 - 8.0 [facility] Urine specific gravity measu rementOrdered By: Sara Quezada on 11-27-2024 Specific gravity (U) [Rel density] 1.015 1.002-1.030 [facility] Urobilinogen Ql (U)Ordered B y: Sara Quezada on 11-27-2024 Urine Urobilinogen Normal mg/dl Normal [facility] White blood cell countOrdere d By: Sara Quezada on 11-27-2024 Urine WBC 5-10 SEEN /hpf 0-5 [facility] pH (Unsp spec)Ordered By: Chio Quezada on 11-27-2024 Blood Gas pH 7.20 Low 7.35-7.45 [facility] Basic Metabolic Profile (BMP )on 11-26-2024 Anion gap [Moles/Vol] 17 mmol/L High 5-15 [facility] Comment on above: Performed By: #### L 500.2500 #### [facility] [address] [place], [address] BUN/CRE 19.1 RATIO Normal 10-20 [facility] Comment on above: Performed By: #### L 500.2500 #### [facility] [address] [place], [address] Calcium [Mass/Vol] 9.7 mg/dL Normal 7.6-11.0 [facility] Comment on above: Performed By: #### L 500.2500 #### [facility] [address] [place], [address] Chloride [Moles/Vol] 101 mmol/L Normal 96-108 [facility] Comment on above: Performed By: #### L 500.2500 #### [facility] [address] [place], [address] CO2 [Moles/Vol] 11.5 mmol/L Low 22.0-29.0 [facility] Comment on above: Performed By: #### L 500.2500 #### [facility] [address] [place], [address] Creatinine [Mass/Vol] 3.0 mg/dL High 0.8-1.3 [facility] Comment on above: Performed By: #### L 500.2500 #### [facility] [address] [place], [address] ECRCL 35.79 ml/min Normal [facility] Comment on above: Performed By: #### L 500.2500 #### [facility] [address] [place], [address] GFR/1.73 sq M.predicted among non-blacks MDRD (S/P/Bld) [Vol rate/Area] 24 mL/min/{1.73_m2} Low >60 [facility] Comment on above: Result Comment: mL/m in/1.73m2 CKD-EPI Creatinine Equation (2020) Performed By: #### L 500.2500 #### [facility] [address] [place], [address] Glucose [Mass/Vol] 127 mg/dL High 70-99 [facility] Comment on above: Performed By: #### L 500.2500 #### [facility] [address] [place], [address] Potassium [Moles/Vol] 3.7 mmol/L Normal 3.3-5.1 [facility] Comment on above: Performed By: #### L 500.2500 #### [facility] [address] [place], [address] Sodium [Moles/Vol] 129 mmol/L Low 133-145 [facility] Comment on above: Performed By: #### L 500.2500 #### [facility] [address] [place], [address] Urea nitrogen [Mass/Vol] 58 mg/dL High 4-19 [facility] Comment on above: Performed By: #### L 500.2500 #### [facility] [address] [place], [address] CBC W/Diff, Automatedon 11-01 Absolute Lymph 0.77 X10 3/uL Low 0.83-4.51 [facility] Comment on above: Performed By: #### L 500.4050, L501.5200, L501.2300, L100.0100 #### [facility] [address] [place], [address] Absolute Neut 10.6 X10 3/uL High 2.0-7.7 [facility] Comment on above: Performed By: #### L 500.4050, L501.5200, L501.2300, L100.0100 #### [facility] [address] [place], [address] Basophils/100 WBC (Bld) 0.2 % Normal 0-1 [facility] Comment on above: Performed By: #### L 500.4050, L501.5200, L501.2300, L100.0100 #### [facility] [address] [place], [address] Eosinophils/100 WBC (Bld) 0.6 % Normal 0-5 [facility] Comment on above: Performed By: #### L 500.4050, L501.5200, L501.2300, L100.0100 #### [facility] [address] [place], [address] Erythrocyte distribution width (RBC) [Ratio] 14.6 % Normal 11.6-14.6 [facility] Comment on above: Performed By: #### L 500.4050, L501.5200, L501.2300, L100.0100 #### [facility] [address] [place], [address] Hematocrit (Bld) [Volume fraction] 41.8 % Normal 40-54 [facility] Comment on above: Performed By: #### L 500.4050, L501.5200, L501.2300, L100.0100 #### [facility] [address] [place], [address] Hemoglobin (Bld) [Mass/Vol] 13.7 g/dL Normal 13.0-16.5 [facility] Comment on above: Performed By: #### L 500.4050, L501.5200, L501.2300, L100.0100 #### [facility] [address] [place], [address] IG% 0.600 Normal 0.0-0.9 [facility] Comment on above: Result Comment: IG% - Immature Granulocytes (promyelocytes, myelocytes and metamyelocytes) > 1% indicates that a LEFT SHIFT is Present. Performed By: #### L 500.4050, L501.5200, L501.2300, L100.0100 #### [facility] [address] [place], [address] Lymphocytes/100 WBC (Bld) 6.1 % Low 19-41 [facility] Comment on above: Performed By: #### L 500.4050, L501.5200, L501.2300, L100.0100 #### [facility] [address] [place], [address] MCH (RBC) [Entitic mass] 30.9 pg Normal 27.0-32.0 [facility] Comment on above: Performed By: #### L 500.4050, L501.5200, L501.2300, L100.0100 #### [facility] [address] [place], [address] MCHC (RBC) [Mass/Vol] 32.8 g/dL Normal 32-36 [facility] Comment on above: Performed By: #### L 500.4050, L501.5200, L501.2300, L100.0100 #### [facility] [address] [place], [address] MCV (RBC) [Entitic vol] 94.4 fL High 80-94 [facility] Comment on above: Performed By: #### L 500.4050, L501.5200, L501.2300, L100.0100 #### [facility] [address] [place], [address] Monocytes/100 WBC (Bld) 8.7 % Normal 0-10 [facility] Comment on above: Performed By: #### L 500.4050, L501.5200, L501.2300, L100.0100 #### [facility] [address] [place], [address] Neutrophils/100 WBC (Bld) 83.8 % High 47-70 [facility] Comment on above: Performed By: #### L 500.4050, L501.5200, L501.2300, L100.0100 #### [facility] [address] [place], [address] Nucleated RBC (Bld) [#/Vol] 0 10*3/uL Normal 0-5 [facility] Comment on above: Performed By: #### L 500.4050, L501.5200, L501.2300, L100.0100 #### [facility] [address] [place], [address] Platelet mean volume (Bld) [Entitic vol] 8.6 fL Normal 6.2-12.0 [facility] Comment on above: Performed By: #### L 500.4050, L501.5200, L501.2300, L100.0100 #### [facility] [address] [place], [address] Platelets (Bld) [#/Vol] 410 10*3/uL Normal 150-450 [facility] Comment on above: Performed By: #### L 500.4050, L501.5200, L501.2300, L100.0100 #### [facility] [address] [place], [address] RBC (Bld) [#/Vol] 4.43 10*6/uL Low 4.6-6.2 [facility] Comment on above: Performed By: #### L 500.4050, L501.5200, L501.2300, L100.0100 #### [facility] [address] [place], [address] RDW SD 51.1 fl High 35.1-43.9 [facility] Comment on above: Performed By: #### L 500.4050, L501.5200, L501.2300, L100.0100 #### [facility] [address] [place], [address] WBC (Bld) [#/Vol] 12.7 10*3/uL High 4.4-11.0 [facility] Comment on above: Performed By: #### L 500.4050, L501.5200, L501.2300, L100.0100 #### [facility] [address] [place], [address] Emergency Department Summary on 11-26-2024 Emergency Department Summary [facility] Medical Records Department [address] [place] [address] Emergency Department Summary 11/26/24 MR#: [id number] Acct: [id number] Name: DOV BURROWS Rep #: [id number] : 1970 54 From: Jose Harman MD PCP: Dr. Harjeet Bernard MD Status:REG ER Location: ED HPI History of Present Illness Chief Complaint: Nausea/Vomiting Detail of Chief Complaint: Flulike symptoms with nausea vomiting diarrhea Informant: patient and spouse/S.O. Onset/Context/Timing Onset: Yesterday Context: Sudden Onset Timing: Continuous and Waxes and wanes Quality: Nausea vomiting diarrhea yesterday Location: Nausea today decreased diarrhea today Current Severity: Mild Maximum Severity: Severe Worsened by: Suspected viral infection Relieved by: Nothing Associated Symptoms Associated Symptoms: Feels thirsty, lack of energy, fatigue denies lightheadedness Narrative Narrative: Patient is a 54-year-old male. 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 This was done in [address] Jama at [facility]. Patient presents because of nausea, vomiting diarrhea that started yesterday. Several episodes of vomiting diarrhea yesterday. He denies hematemesis or coffee-ground emesis. He denies black or maroon watery diarrhea. Patient endorses decreased urine output. He denies fever or chills. He denies upper respiratory tract symptoms. Prior similar symptoms: No Recent Illness/Hospitalizatio n: No PFSH PFSH Medical History Cancer of appendix Ileostomy present Acute appendicitis Home Medications ???Medication ???Instructions ???Recorded ???Last Taken ???Type bupropion HCl 150 mg tablet,12 hr 150 mg PO DAILY 05/04/24 Unknown History sustained-release fluvoxamine 150 mg 150 mg PO DAILY 05/04/24 Unknown H istory capsule,extended release 24 hr ondansetron 8 mg disintegrating 8 mg PO Q8H PRN nausea and 4 Unknown Rx tablet vomiting #20 tabs Allergy/AdvReac Type Severity Reaction Status Date / Time No Known Allergies Allergy Verified 11/26/24 14:44 Surgical History S/P splenectomy H/O colectomy Social History household members: spouse housing: house Smoking Status: Never smoker ROS ROS ED Constitutional Constitutional ED: Denies chills, fever(s), subjective or sweats Eyes Eyes: Denies blurry vision or change in vision ENT ENT ED: Denies rhinorrhea or sore throat Cardiovascular Cardiovascular: Denies chest pain or palpitations Respiratory/Chest Respiratory/Chest: Denies cough, dyspnea or dyspnea on exertion Gastrointestinal Gastrointestinal: Reports abdominal pain, diarrhea, nausea and vomiting; Denies constipation or melena Genitourinary Genitourinary ED: Denies dysuria, hematuria or urinary frequency Musculoskeletal Musculoskeletal: Denies arthralgias or myalgias Integumentary Denies rash Neurologic Neurologic: Denies headache(s) or paresthesias Hematologic/Lymphatic Hematologic/Lymphatic: Reports systems reviewed and no addt'l complaints, except as documented EXAM Physical Exam Const Vital Signs: 11/26/24 14:41 11/26/24 15:58 11/26/24 16:40 Temperature 98.1 F Temperature Source Temporal Pulse Rate 87 68 Pulse Rate [Lying] 87 Pulse Rate [Sitting (for 1 minute prior to obtaining)] 92 Pulse Rate [Standing (for 1 minute prior to obtaining)] 87 Respiratory Rate 15 Blood Pressure 93/65 112/81 H Blood Pressure [Lying] 106/74 Blood Pressure [Sitting (for 1 minute prior to obtaining)] 104/77 Blood Pressure [Standing (for 1 minute prior to obtaining)] 95/74 Blood Pressure Mean 74 91 Blood Pressure Mean [Lying] 84 Blood Pressure Mean [Sitting (for 1 minute prior to obtaining)] 86 Blood Pressure Mean [Standing (for 1 minute prior to obtaining)] 81 Pulse Ox 94 Oxygen Delivery Method Room Air 11/26/24 18:00 Temperature Temperature Source Pulse Rate 81 Pulse Rate [Lying] Pulse Rate [Sitting (for 1 minute prior to obtaining)] Pulse Rate [Standing (for 1 minute prior to obtaining)] Respiratory Rate 14 Blood Pressure 120/69 Blood Pressure [Lying] Blood Pressure [Sitting (for 1 minute prior to obtaining)] Blood Pressure [Standing (for 1 minute prior to obtaining)] Blood Pressure Mean 86 Blood Pressure Mean [Lying] Blood Pressure Mean [Sitting (for 1 minute prior to obtaining)] Blood Pressure Mean [Standing (for 1 minute prior to obtaining)] Pulse Ox 98 Oxygen Delivery Method Room Air Positive well nourished and well developed Constitutional Narrative: Vitals are marked for low blood pressure. Not tachyc (more content not included)... Normal [facility] H AND P Exam - Hospitaliston 11-26-2024 H&P Exam - Hospitalist [facility] Medical Records Department [address] [place] [address] H P Exam - Hospitalist 11/26/24 1849 MR#: [id number] Acct: [id number] Name: DOV BURROWS Rep #: [id number] : 1970 54 From: Ibrahima Doan DO PCP: Dr. Harjeet Bernard MD Status:ADM SANNA Location: [place] [address] HPI - General General Date of Service: 11/26/24 Chief Complaint: Nausea vomiting HPI Narrative DOV BURROWS, is a 54 M who presents with nausea vomiting and increased output from his ostomy. Symptoms were primarily yesterday where he is having tractable nausea vomiting and copious amounts of fluid from his ostomy. Patient had a colectomy and partial small bowel resection due to appendicitis that ruptured. He had that surgery in 2021. He has not had much in the way of high output from his ostomy during that time. Earlier in the week, his was sick with what sound like norovirus and then he became sick yesterday. Today he feels much better at this time but he presented to the emergency room and was noted that his creatinine was up to 3. Patient did receive a liter of IV fluids and then he started having copious fluid from his ostomy at that time. And the hospitalist service was contacted for admission. [facility] Medical History Cancer of appendix Ileostomy present Acute appendicitis Home Medications ???Medication ???Instructions ???Recorded ???Last Taken ???Type bupropion HCl 150 mg tablet,12 hr 150 mg PO DAILY 05/04/24 Unknown History sustained-release fluvoxamine 150 mg 150 mg PO DAILY 05/04/24 Unknown H istory capsule,extended release 24 hr ondansetron 8 mg disintegrating 8 mg PO Q8H PRN nausea and 4 Unknown Rx tablet vomiting #20 tabs Allergy/AdvReac Type Severity Reaction Status Date / Time No Known Allergies Allergy Verified 11/26/24 14:44 Family History (Updated 11/26/24 @ 18:[address] Ibrahima Doan DO) Other VTE (venous thromboembolism) Surgical History S/P splenectomy H/O colectomy Social History household members: spouse housing: house Smoking Status: Never smoker ROS ROS Narrative All review of systems were negative except as mentioned above in the history of present illness and the other review of systems. Vital Signs Vital Signs Vital Signs: 11/26/24 14:41 11/26/24 15:58 11/26/24 16:40 Temperature 36.7 C Temperature Source Temporal Pulse Rate 87 68 Pulse Rate [Lying] 87 Pulse Rate [Sitting (for 1 minute prior to obtaining)] 92 Pulse Rate [Standing (for 1 minute prior to obtaining)] 87 Respiratory Rate 15 Blood Pressure 93/65 112/81 H Blood Pressure [Lying] 106/74 Blood Pressure [Sitting (for 1 minute prior to obtaining)] 104/77 Blood Pressure [Standing (for 1 minute prior to obtaining)] 95/74 Blood Pressure Mean 74 91 Blood Pressure Mean [Lying] 84 Blood Pressure Mean [Sitting (for 1 minute prior to obtaining)] 86 Blood Pressure Mean [Standing (for 1 minute prior to obtaining)] 81 Pulse Ox 94 Oxygen Delivery Method Room Air 11/26/24 18:00 Temperature Temperature Source Pulse Rate 81 Pulse Rate [Lying] Pulse Rate [Sitting (for 1 minute prior to obtaining)] Pulse Rate [Standing (for 1 minute prior to obtaining)] Respiratory Rate 14 Blood Pressure 120/69 Blood Pressure [Lying] Blood Pressure [Sitting (for 1 minute prior to obtaining)] Blood Pressure [Standing (for 1 minute prior to obtaining)] Blood Pressure Mean 86 Blood Pressure Mean [Lying] Blood Pressure Mean [Sitting (for 1 minute prior to obtaining)] Blood Pressure Mean [Standing (for 1 minute prior to obtaining)] Pulse Ox 98 Oxygen Delivery Method Room Air Weight Weight: 99.79 kg Body Mass Index (BMI) 29.0 Physical Exam Const alert, no apparent distress, average body habitus and healthy appearing Constitutional Narrative: Patient is very comfortable in bed. Nontoxic. HEENT normocephalic and head/scalp atraumatic Eyes Eyes Narrative: Glasses. No icterus Resp normal respiratory effort, no retractions, no use of accessory muscles and clear to auscultation bilaterally Cardio regular rate, regular rhythm, S1 normal heart sound and S2 normal heart sound GI normal to inspection, nondistended, normoactive bowel sounds, soft to palpation, non-tender and non- distended GI Narrative: Ostomy present. Extremity normal to inspection, full ROM and no clubbing, cyanosis or edema Neuro moves all extremities Results Lab / Micro Data Attestation: I reviewed the patient's lab results. 11/26/24 15:06 Labs: Laboratory Results - last 24 hr 0 (more content not included)... Normal [facility] 09-21-2024 RICHIE Telephone ([employer] FIRST,DOV Zepeda ([id number]) 1970 M Date Time Provider Department 09/21/24 NICOLASA DENISE During your visit today, we recorded the following information about you: Callie Hall 09/21/2024 10:07 AM Signed [phone] Triny Patient calling stating he passed the clamp that was put in his ABD in his stoma bag. Wants to make sure this is ok. Patient not in any pain or any issues, did not know it happened until he emptied his bag. Cleo Parekh RN 09/21/2024 3:48 PM Signed Called Triny back to discuss. He remembers Dr. Maloney letting him know that the clip he placed may eventually come out, and he thinks this is what happened. He offered a photo- I requested he send the photo to Dr. Matos office directly so they can address it. I told them I will keep an eye out to take a look, but I have no idea about the clip that was placed. Triny verbalized understanding. Allergies As of Date: 09/21/2024 (No Known Allergies) Date Reviewed: 06/15/2024 Reviewed by: Ana Lane, PEDRO LUIS - Fully Assessed Reason for Visit: Patient Update [1234] Prescriptions as of 09/21/2024 - omeprazole (PRILOSEC) 20 mg capsule Take 1 capsule by mouth once daily. - ondansetron (ZOFRAN) 8 mg tablet Take 1 tablet by mouth every 12 hours as needed for nausea/vomiting. - omeprazole (PRILOSEC) 20 mg capsule Take 1 capsule by mouth once daily. - fluvoxaMINE ER (LUVOX CR) 150 mg capsule Take 1 capsule by mouth daily at bedtime. - CPAP Continue Auto PAP @ 5-20 cm of water with humidification. Mask (per patient preference) optional chin strap (if indicated) , filters, tubing, humidifier and lifetime supplies. AMBROSE G47.33 - buPROPion SR (WELLBUTRIN SR) 150 mg 12 hr tablet Take 1 tablet by mouth two times a day. - ferrous sulfate 325 mg (65 mg iron) tablet Take 1 tablet by mouth every other day. - multivitamin tablet Take 1 tablet by mouth once daily. Problem List As Of Date 09/21/2024 Noted Resolved AMBROSE on CPAP [G47.33] 02/18/2006 Abnormal weight gain [R63.5] 02/18/2006 01/25/2015 MALAISE AND FATIGUE NEC [R53.81, R53.83] 02/18/2006 ANXIETY STATE NOS [F41.1] 02/18/2006 Hypercholesteremia <130 [E78.00] 02/18/2006 OVERWEIGHT [E66.9] 02/18/2006 01/25/2015 DEPRESSIVE DISORDER NEC [F32.89] 02/20/2008 Cellulitis and abscess of unspecified site [L03*07/04/2009 01/25/2015 Non-healing surgical wound [T81.89XA] 07/06/2009 01/25/2015 Other adjustment reaction with predominant dist*01/17/2011 01/25/2015 Non morbid obesity due to excess calories [E66.*02/07/2017 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6] 06/08/2022 06/27/2022 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 Denise. Patient has an established end ileostomy from 2021. Patient reports difficulty with increased liquid output and some leakage issues. He discussed change in output with Dr. Denise. Pouching system switched to convexity this visit to provide more support to peristomal skin and prevent undermining. Samples provided with contact information to call if system helps and patient needs an updated supply form. Next Scheduled Visit: as needed Assessment Stoma Type: End ileostomy Diameter: 1 1/4 Location: RUQ Protrusion: Budded Mucosal condition and color: Red and moist Mucocutaneous junction Intact Peristomal Skin: Other: mild erythema Location of Skin Impairment: circumferentially Peristomal contour: Flat, slightly concave from 3-9 o'clock Supportive Tissue: Semisoft, some areas of firmer tissue adjacent to stoma but not painful Character of output: thin green liquid effluent, mushier effluent explosive at times Emptying frequency per day: varies, increased frequency per patient Pouching System Pouching system removed: 2 10/03 ConvaTec NATALY-FIT Natura Durahesive Flat Cut-to-Fit Skin Barrier (#[id number]), drainable pouch Wearing time: 3-4 days Pouching system evaluation: circumferentially undermined, wider from 3-9 o'clock and nearly leaking at 6 o'clock Recommendations: Skin Care: Apply ConvaTec Stomahesive powder to any areas of skin breakdown PRN until healed. Dust off excess. Pouching system Applied: [place] New Image Convex 2 10/03 Ceraplus Flange with Tape Border #[id number], ceraplus ring, drainable pouch Expected wearing time: 3-4 days Time Increment: 1 hour Haley Baumann RN, BSN, CWOCN For non-emergent WO Nursing patient care needs - Please place a consult via Epic under ostomy. WOC Nurse Available Hours: M-F: [id number]; Weekends AND Holidays: 4020-6945 For emergent WO Nursing patient care needs - Page #[phone], during available hours only. Allergies As of Date: 06/15/2024 (No Known Allergies) Date Reviewed: 06/15/2024 Reviewed by: Ana Lane, PEDRO LUIS - Fully Assessed Primary Visit Diagnosis:Attention to ileostomy (HCC) [Z43.2] Other Visit Diagnosis:Fitting and adjustment of gastrointestinal appliance and device [Z46.59] Prescriptions as of 06/15/2024 - ondansetron (ZOFRAN) 8 mg tablet Take 1 tablet by mouth every 12 hours as needed for nausea/vomiting. - omeprazole (PRILOSEC) 20 mg capsule Take 1 capsule by mouth once daily. - fluvoxaMINE ER (LUVOX CR) 150 mg capsule Take 1 capsule by mouth daily at bedtime. - CPAP Continue Auto PAP @ 5-20 cm of water with humidification. Mask (per patient preference) optional chin strap (if indicated) , filters, tubing, humidifier and lifetime supplies. AMBROSE G47.33 - buPROPion SR (WELLBUTRIN SR) 150 mg 12 hr tablet Take 1 tablet by mouth two times a day. - ferrous sulfate 325 mg (65 mg iron) tablet Take 1 tablet by mouth every other day. - multivitamin tablet Take 1 tablet by mouth once daily. Problem List As Of Date 06/15/2024 Noted Resolved AMBROSE on CPAP [G47.33] 02/18/2006 Abnormal weight gain [R63.5] 02/18/2006 01/25/2015 MALAISE AND FATIGUE NEC [R53.81, R53.83] 02/18/2006 ANXIETY STATE NOS [F41.1] 02/18/2006 Hypercholesteremia <130 [E78.00] 02/18/2006 OVERWEIGHT [E66.9] 02/18/2006 01/25/2015 DEPRESSIVE DISORDER NEC [F32.89] 02/20/2008 Cellulitis and abscess of unspecified site [L03*07/04/2009 01/25/2015 Non-healing surgical wound [T81.89XA] 07/06/2009 01/25/2015 Other adjustment reaction with predominant dist*01/17/2011 01/25/2015 Non morbid obesity due to excess calories [E66.*02/07/2017 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6] 06/08/2022 06/27/2022 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 Intra-abdominal and pelvic swelling, mass and l*01/23/2023 Encounter Status:Closed by HALEY BAUMANN on 06/15/24 [facility] 06-15-2024 CNOV Office Visit ([facility] ) DOV BURROWS ([id number]) 1970 M Date Time Provider Department 06/15/24 10:20 AM NICOLASA DENISE During your visit today, we recorded the following information about you: Weight Height 100.7 kg 1.854 m Nicolasa Denise DO 07/07/2024 1:14 PM Signed COLORECTAL SURGERY Follow-up June 09, 2024 Chief complaint: annual follow up HPI: Triny Burrows is a 54 year old male with 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 Here today for yearly surveillance 05/15/24 CT CAP C:IMPRESSION: No convincing CT evidence of thoracic metastasis. 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 Physical Exam: Ht 185.4 cm (6' 1) Wt 100.7 kg (222 lb) BMI 29.29 kg/m? General - awake, alert, no acute distress Abdominal - soft, non tender Anorectal: Perianal skin is intact. No erythema, induration or excoriation. No fissure, fistula or external hemorrhoids. 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 Here today for yearly surveillance Data Reviewed: Tests AND Documents Reviewed/ordered: Review of prior notes from EMR Review of prior operative reports Review of Pathology Review of Imaging: CT Abdomen, CT Pelvis I have independently interpreted: CT Abdomen, CT Pelvis I have discussed Dov Burrows's treatment plan and/or results with Mr. Burrows. Treatment plan: - Virtual visit in 4 weeks - Low fiber diet - Added prescription for zofran and prilosec Attending Note I evaluated the patient and personally participated in the gallagher components. I agree with the resident's findings and plan as documented and have discussed the case and management of the patient's care with the resident. I have confirmed and edited as necessary, the PFSH and ROS obtained by others. 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 - omeprazole (PRILOSEC) 20 mg capsule Take 1 capsule by mouth once daily. - fluvoxaMINE ER (LUVOX CR) 150 mg capsule Take 1 capsule by mouth daily at bedtime. - CPAP Continue Auto PAP @ 5-20 cm of water with humidification. Mask (per patient preference) optional chin strap (if indicated) , filters, tubing, humidifier and lifetime supplies. AMBROSE G47.33 - buPROPion SR (WELLBUTRIN SR) 150 mg 12 hr tablet Take 1 tablet by mouth two times a day. - ferrous sulfate 325 mg (65 mg iron) tablet Take 1 tablet by mouth every other day. - multivitamin tablet Take 1 tablet by mouth once daily. Problem List As Of Date 06/15/2024 Noted Resolved AMBROSE on CPAP [G47.33] 02/18/2006 Abnormal weight gain [R63.5] 02/18/2006 01/25/2015 MALAISE AND FATIGUE NEC [R53.81, R53.83] 02/18/2006 ANXIETY STATE NOS [F41.1] 02/18/2006 Hypercholesteremia <130 [E78.00] 02/18/2006 OVERWEIGHT [E66.9] 02/18/2006 01/25/2015 DEPRESSIVE DISORDER NEC [F32.89] 02/20/2008 Cellulitis and abscess of unspecified site [L03*07/04/2009 01/25/2015 Non-healing surgical wound [T81.89XA] 07/06/2009 01/25/2015 Other adjustment reaction with predominant dist*01/17/2011 01/25/2015 Non morbid obesity due to excess calories [E66.*02/07/2017 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 Normal [facility] CBC panel Auto (Bld)on 05-15 Erythrocyte distribution width (RBC) [Ratio] 14.8 % Normal 11.5-15.0 [facility] Comment on above: Order Comment: Speci men Type: BLOOD SPECIMENOrdering Facility: [facility] Address: [address] [place] [address] Performed By: #### 5 8410-2 ####[facility] LABIA [id number] [place] [address] [place] Hematocrit (Bld) [Volume fraction] 43.2 % Normal 39.0-51.0 [facility] Comment on above: Order Comment: Speci men Type: BLOOD SPECIMENOrdering Facility: [facility] Address: [address] [place] [address] Performed By: #### 5 8410-2 ####[facility] LABIA [id number] [place] [address] [place] Hemoglobin (Bld) [Mass/Vol] 14.2 g/dL Normal 13.0-17.0 [facility] Comment on above: Order Comment: Speci men Type: BLOOD SPECIMENOrdering Facility: [facility] Address: [address] [place] [address] Performed By: #### 5 8410-2 ####[facility] LABIA [id number] [place] [address] [place] MCH (RBC) [Entitic mass] 30.4 pg Normal 26.0-34.0 [facility] Comment on above: Order Comment: Speci men Type: BLOOD SPECIMENOrdering Facility: [facility] Address: [address] [place] [address] Performed By: #### 5 8410-2 ####[facility] LABCLIA [id number] [place] [address] [place] MCHC (RBC) [Mass/Vol] 32.9 g/dL Normal 30.5-36.0 [facility] Comment on above: Order Comment: Speci men Type: BLOOD SPECIMENOrdering Facility: [facility] Address: [address] [place] [address] Performed By: #### 5 8410-2 ####[facility] LABIA [id number] [place] [address] [place] MCV (RBC) [Entitic vol] 92.5 fL Normal 80.0-100.0 [facility] Comment on above: Order Comment: Speci men Type: BLOOD SPECIMENOrdering Facility: [facility] Address: [address] [place] [address] Performed By: #### 5 8410-2 ####[facility] LABIA [id number] [place] [address] [place] Nucleated RBC (Bld) [#/Vol] 10*3/uL Normal <0.01 [facility] Comment on above: Order Comment: Speci men Type: BLOOD SPECIMENOrdering Facility: [facility] Address: [address] [place] [address] Performed By: #### 5 8410-2 ####[facility] LABIA [id number] [place] [address] [place] Platelet mean volume (Bld) [Entitic vol] 8.9 fL Low 9.0-12.7 [facility] Comment on above: Order Comment: Speci men Type: BLOOD SPECIMENOrdering Facility: [facility] Address: [address] [place] [address] Performed By: #### 5 8410-2 ####[facility] LABIA [id number] [place] [address] [place] Platelets (Bld) [#/Vol] 393 10*3/uL Normal 150-400 [facility] Comment on above: Order Comment: Speci men Type: BLOOD SPECIMENOrdering Facility: [facility] Address: [address] [place] [address] Performed By: #### 5 8410-2 ####[facility] LABCLIA [id number] [place] [address] [place] RBC (Bld) [#/Vol] 4.67 10*6/uL Normal 4.20-6.00 [facility] Comment on above: Order Comment: Speci men Type: BLOOD SPECIMENOrdering Facility: [facility] Address: [address] [place] [address] Performed By: #### 5 8410-2 ####[facility] LABCLIA [id number] [place] [address] [place] WBC (Bld) [#/Vol] 10.15 10*3/uL Normal 3.70-11.00 [facility] Comment on above: Order Comment: Speci men Type: BLOOD SPECIMENOrdering Facility: [facility] Address: [address] [place] [address] Performed By: #### 5 8410-2 ####[facility] LABCLIA [id number] [place] [address] [place] CNOVon 05-15-2024 CNOV Office Visit (INTMWS ) DOV BURROWS ([id number]) 1970 M Date Time Provider Department 05/15/24 11:00 AM HARJEET BERNARD INTMWS During your visit today, we recorded the following information about you: Temperature Pulse Respiration Blood pressure 97.1 degrees 71/minute 16/minute 102/62 Weight 105.6 kg Harjeet Bernard MD 05/15/2024 12:13 PM Signed This note was created using [employer]. Subjective Dov Burrows is a 54 year old male. Patient presents with: F/U 6 months SUBJECTIVE: Dov Burrows is a 54 year old year old gentleman here today for 6 month follow up appointment for review of medical conditions. Continues to use CPAP every night and benefits from use. Patient is a 54-year-old male with a history of depression, presenting for follow-up. Patient reports improvement in depression symptoms since starting Luvox, but notes that symptoms are not completely resolved. He is also taking Wellbutrin. He reports difficulty maintaining a consistent sleep schedule due to a demanding work schedule, which has been exacerbated by the summer heat. He has been waking up at 03:15 instead of 04:15 and going to bed at 21:00. He reports that his family sometimes encourages him to stay up later, but he insists on going to bed at 21:00 due to fatigue. He reports that the irregular sleep schedule and family dynamics sometimes lead to irritability and mood disturbances. Patient has a stoma and reports occasional issues with leakage, which he attributes to the adhesive breaking down due to acids and sweating from work. He has tried using paste to secure the adhesive, but finds it difficult to apply. He also reports a history of skin irritation around the stoma, which he managed by cutting the wafer larger to allow the skin to breathe. He reports that he has been managing the stoma care independently, but finds it challenging at times. Patient reports a recent episode of nausea and vomiting, which he attributes to the heat and dehydration. He reports that his appetite has decreased, and he has been drinking a lot of iced tea to stay hydrated. He reports that his family was concerned about the vomiting episode and took him to the ER to rule out a blockage. A scan was performed, and no blockage was found. He reports that the heat has also affected his mood, and he has been feeling more irritable and fatigued. He has been trying to stay hydrated by drinking Gatorade and using cooling towels. Patient uses a CPAP machine and reports that he is using it every night and benefiting from it. He is due for a refill of his Luvox prescription and has enough to last until the mail order arrives. He is also taking iron and multivitamins. 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 fluvoxaMINE ER (LUVOX CR) 150 mg capsule Take 1 capsule by mouth daily at bedtime. CPAP Continue Auto PAP @ 5-20 cm of water with humidification. Mask (per patient preference) optional chin strap (if indicated) , filters, tubing, humidifier and lifetime supplies. AMBROSE G47.33 ferrous sulfate 325 mg (65 mg iron) tablet Take 1 tablet by mouth every other day. multivitamin tablet Take 1 tablet by mouth once daily. No current facility-administered medications for this visit. Review of Systems Objective BP 102/62 Pulse 71 Temp 36.2 ?C (97.1 ?F) Resp 16 Wt 105.6 kg (232 lb 12.9 oz) SpO2 99% BMI 30.71 kg/m? Physical Exam Vitals reviewed. Constitutional: Appearance: Normal appearance. Eyes: Conjunctiva/sclera: Conjunctivae normal. Cardiovascular: Rate and Rhythm: Normal rate and regular rhythm. Heart sounds: Normal heart sounds. Pulmonary: Effort: Pulmonary effort is normal. Breath sounds: Normal breath sounds. Skin: General: Skin is warm and dry. Neurological: General: No focal deficit present. Mental Status: He is alert and oriented to person, place, and time. Psychiatric: Mood and Affect: Mood normal. Behavior: Behavior normal. Thought Content: Thought content normal. Judgment: Judgment normal. Last labs done: Latest Ref Rng 07/02/2022 07/16/2022 07/25/2022 01/04/2023 WBC 3.70 - 11.00 k/uL 6.66 8.4 (E) 8.1 (E) 10.18 RBC 4.20 - 6.00 m/uL 3.03 (L) 4.68 Hemoglobin 13.0 - 17.0 g/dL 8.2 (L) 9.4 ! (E) 9.5 ! (E) 13.5 Hematocrit 39.0 - 51.0 % 28.2 (L) 31.7 ! (E) 31.0 ! (E) 43.0 MCV 80.0 - 100.0 fL 93.1 91.9 MCH 26.0 - 34.0 pg 27.1 28.8 MCHC 30.5 - 36.0 g/dL 29.1 (L) 31.4 RDW-CV 11.5 - 15.0 % 17.6 (H) 14.5 Platelet Count 150 - 400 k/uL 1,020 (H) 825 ! (E) 721 ! (E) 509 (more content not included)... Normal 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 MQ: CTAP_3 Contrast: IV: 100 ml of Omnipaque 350 Oral: 10 ml of Omni 240 10-25ml diluted with water CT Radiation dose: Integrated Dose-length product (DLP) for this visit = 1074 mGy*cm. CT Dose Reduction Employed: Automated exposure control(AEC) and iterative recon COMPARISON: 05/17/2023, 06/20/2022, 06/19/2022, 06/13/2022 RESULT: Liver: Hepatic lobe cysts and other subcentimeter low-attenuation liver lesions too small to characterize, but stable from prior. Biliary: No bile duct dilation. Gallbladder is unremarkable. Spleen: Splenectomy Pancreas: No mass or duct dilation. Adrenals: No mass. Kidneys: No mass, calculus or hydronephrosis. GI tract: Colectomy with oversewn rectal stump. No dilated loops of bowel. Again noted is metallic along the posterior wall of stomach near the fundus. Lymph nodes: No abdominal or pelvic lymphadenopathy. 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 * Foci of carcinomatosis extends along the subcutaneous portion of the RIGHT lower quadrant ileostomy Retroperitoneum: No mass. Vasculature: - Abdominal aorta and iliac arteries: No aneurysm. - Celiac and SMA: Patent without stenosis. - Portal venous system (SMV, splenic vein, portal vein and branches): Patent. - Hepatic veins: Incompletely opacified, likely due to early phase of enhancement. Pelvis: No mass, ascites or fluid collection. Bones/Soft Tissues: No significant finding. Lower thorax: A chest CT performed will be reported separately. Localizer images: No additional findings. 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 Duralumin Mechanic: LES Transcribe Date/Time: May 15 2024 12:14P Dictated by : GUERO ELIZABETH MD This examination was interpreted and the report reviewed and electronically signed by: GUERO ELIZABETH MD on May 15 2024 12:23PM EST [id number] Normal 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 MQ: CTAP_3 Contrast: IV: 100 ml of Omnipaque 350 Oral: 10 ml of Omni 240 10-25ml diluted with water CT Radiation dose: Integrated Dose-length product (DLP) for this visit = 1074 mGy*cm. CT Dose Reduction Employed: Automated exposure control(AEC) and iterative recon COMPARISON: 05/17/2023, 06/20/2022, 06/19/2022, 06/13/2022 RESULT: Liver: Hepatic lobe cysts and other subcentimeter low-attenuation liver lesions too small to characterize, but stable from prior. Biliary: No bile duct dilation. Gallbladder is unremarkable. Spleen: Splenectomy Pancreas: No mass or duct dilation. Adrenals: No mass. Kidneys: No mass, calculus or hydronephrosis. GI tract: Colectomy with oversewn rectal stump. No dilated loops of bowel. Again noted is metallic along the posterior wall of stomach near the fundus. Lymph nodes: No abdominal or pelvic lymphadenopathy. 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 * Foci of carcinomatosis extends along the subcutaneous portion of the RIGHT lower quadrant ileostomy Retroperitoneum: No mass. Vasculature: - Abdominal aorta and iliac arteries: No aneurysm. - Celiac and SMA: Patent without stenosis. - Portal venous system (SMV, splenic vein, portal vein and branches): Patent. - Hepatic veins: Incompletely opacified, likely due to early phase of enhancement. Pelvis: No mass, ascites or fluid collection. Bones/Soft Tissues: No significant finding. Lower thorax: A chest CT performed will be reported separately. Localizer images: No additional findings. 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 MQ: CTAP_3 Contrast: IV: 100 ml of Omnipaque 350 Oral: 10 ml of Omni 240 10-25ml diluted with water CT Radiation dose: Integrated Dose-length product (DLP) for this visit = 1074 mGy*cm. CT Dose Reduction Employed: Automated exposure control(AEC) and iterative recon COMPARISON: 05/17/2023, 06/20/2022, 06/19/2022, 06/13/2022 RESULT: Liver: Hepatic lobe cysts and other subcentimeter low-attenuation liver lesions too small to characterize, but stable from prior. Biliary: No bile duct dilation. Gallbladder is unremarkable. Spleen: Splenectomy Pancreas: No mass or duct dilation. Adrenals: No mass. Kidneys: No mass, calculus or hydronephrosis. GI tract: Colectomy with oversewn rectal stump. No dilated loops of bowel. Again noted is metallic along the posterior wall of stomach near the fundus. Lymph nodes: No abdominal or pelvic lymphadenopathy. 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 * Foci of carcinomatosis extends along the subcutaneous portion of the RIGHT lower quadrant ileostomy Retroperitoneum: No mass. Vasculature: - Abdominal aorta and iliac arteries: No aneurysm. - Celiac and SMA: Patent without stenosis. - Portal venous system (SMV, splenic vein, portal vein and branches): Patent. - Hepatic veins: Incompletely opacified, likely due to early phase of enhancement. Pelvis: No mass, ascites or fluid collection. Bones/Soft Tissues: No significant finding. Lower thorax: A chest CT performed will be reported separately. Localizer images: No additional findings. 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 Duralumin Mechanic: [facility] Transcribe Date/Time: May 15 2024 12:14P Dictated by : GUERO ELIZABETH MD This examination was interpreted and the report reviewed and electronically signed by: GUERO ELIZABETH MD on May 15 2024 12:23PM [facility] CT CHEST W IVCONon 4 CT CHEST W IVCON * * *Final Report* * * DATE OF EXAM: May 15 2024 10:42AM [facility] 0539 - CT CHEST W IVCON / PROCEDURE REASON: Low grade mucinous neoplasm of appendix * * * * Physician Interpretation * * * * EXAMINATION: CHEST CT WITH CONTRAST CLINICAL HISTORY: 54-year-old man with low-grade mucinous neoplasm of the appendix Technique: Spiral CT acquisition of the chest from the thoracic inlet to the upper abdomen following IV contrast. MQ: CTCW_6 Contrast: 100 mL Omnipaque [address] Radiation dose: Integrated Dose-length product (DLP) for this visit = 1074 mGy*cm CT Dose Reduction Employed: Automated exposure control(AEC) and iterative recon Comparison: CT chest, 05/17/2023 RESULT: Limitations: None. Lines, tubes, and devices: None. Lung parenchyma and airways: No consolidation. Stable punctate calcified granuloma in the right upper lobe (image 115). No suspicious pulmonary nodule. Stable mild elevation of the left hemidiaphragm with linear atelectasis in the adjacent left base. The central airways are patent. Pleural space: No pleural effusion. No pleural thickening. Lower neck, lymph nodes, and mediastinum: The imaged thyroid gland is normal. No lymphadenopathy in the supraclavicular, axillary, mediastinal, or hilar regions. 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 Mildly ectatic ascending aorta which measures 4.3 cm. The remainder of the thoracic aorta and main pulmonary artery are normal in caliber. The cardiac chambers are normal in size. No coronary artery atherosclerotic calcifications are noted, although the study is not optimized for coronary assessment. No pericardial effusion or thickening. Bones and soft tissues: No destructive bone lesion. Chest wall is unremarkable. Upper abdomen: Reported separately. Localizer images: No additional findings. IMPRESSION: No convincing CT evidence of thoracic metastasis. Duralumin Mechanic: LES Transcribe Date/Time: May 15 2024 1:28P Dictated by : LEXIE LEONARD MD This examination was interpreted and the report reviewed and electronically signed by: LEXIE LEONARD MD on May 15 2024 1:42PM EST [id number] Normal [facility] CT Chest W contrast Risa IMPRESSION: No convincing CT evidence of thoracic metastasis. Duralumin Mechanic: [facility] Transcribe Date/Time: May 15 2024 1:28P Dictated by : LEXIE LEONARD MD This examination was interpreted and the report reviewed and electronically signed by: LEXIE LEONARD MD on May 15 2024 1:42PM EST DIVISION OF RADIOLOGY * * *Final Report* * * DATE OF EXAM: May 15 2024 10:42AM [facility] 0539 - CT CHEST W IVCON / PROCEDURE REASON: Low grade mucinous neoplasm of appendix * * * * Physician Interpretation * * * * EXAMINATION: CHEST CT WITH CONTRAST CLINICAL HISTORY: 54-year-old man with low-grade mucinous neoplasm of the appendix Technique: Spiral CT acquisition of the chest from the thoracic inlet to the upper abdomen following IV contrast. MQ: CTCW_6 Contrast: 100 mL Omnipaque [address] Radiation dose: Integrated Dose-length product (DLP) for this visit = 1074 mGy*cm CT Dose Reduction Employed: Automated exposure control(AEC) and iterative recon Comparison: CT chest, 05/17/2023 RESULT: Limitations: None. Lines, tubes, and devices: None. Lung parenchyma and airways: No consolidation. Stable punctate calcified granuloma in the right upper lobe (image 115). No suspicious pulmonary nodule. Stable mild elevation of the left hemidiaphragm with linear atelectasis in the adjacent left base. The central airways are patent. Pleural space: No pleural effusion. No pleural thickening. Lower neck, lymph nodes, and mediastinum: The imaged thyroid gland is normal. No lymphadenopathy in the supraclavicular, axillary, mediastinal, or hilar regions. 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 Mildly ectatic ascending aorta which measures 4.3 cm. The remainder of the thoracic aorta and main pulmonary artery are normal in caliber. The cardiac chambers are normal in size. No coronary artery atherosclerotic calcifications are noted, although the study is not optimized for coronary assessment. No pericardial effusion or thickening. Bones and soft tissues: No destructive bone lesion. Chest wall is unremarkable. Upper abdomen: Reported separately. Localizer images: No additional findings. 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 MQ: CTCW_6 Contrast: 100 mL Omnipaque [address] Radiation dose: Integrated Dose-length product (DLP) for this visit = 1074 mGy*cm CT Dose Reduction Employed: Automated exposure control(AEC) and iterative recon Comparison: CT chest, 05/17/2023 RESULT: Limitations: None. Lines, tubes, and devices: None. Lung parenchyma and airways: No consolidation. Stable punctate calcified granuloma in the right upper lobe (image 115). No suspicious pulmonary nodule. Stable mild elevation of the left hemidiaphragm with linear atelectasis in the adjacent left base. The central airways are patent. Pleural space: No pleural effusion. No pleural thickening. Lower neck, lymph nodes, and mediastinum: The imaged thyroid gland is normal. No lymphadenopathy in the supraclavicular, axillary, mediastinal, or hilar regions. 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 Mildly ectatic ascending aorta which measures 4.3 cm. The remainder of the thoracic aorta and main pulmonary artery are normal in caliber. The cardiac chambers are normal in size. No coronary artery atherosclerotic calcifications are noted, although the study is not optimized for coronary assessment. No pericardial effusion or thickening. Bones and soft tissues: No destructive bone lesion. Chest wall is unremarkable. Upper abdomen: Reported separately. Localizer images: No additional findings. IMPRESSION IMPRESSION: No convincing CT evidence of thoracic metastasis. Duralumin Mechanic: LES Transcribe Date/Time: May 15 2024 1:28P Dictated by : LEXIE LEONARD MD This examination was interpreted and the report reviewed and electronically signed by: LEXIE LEONARD MD on May 15 2024 1:42PM EST [facility] CT Chest W contrast IVOrdere d By: [facility] Provider on 05-15-2024 [facility] Comprehensive metabolic 2000 panelon 05-15-2024 Albumin [Mass/Vol] 4.2 g/dL Normal 3.9-4.9 [facility] Comment on above: Order Comment: Rafaeli melina Type: BLOOD SPECIMEN [facility] Facility: [facility] Address: [address] [place] [address] Performed By: #### 2 4323-8, 80959-3 #### [facility] CLIA [id number] [address] [place] [address] [place] ALP [Catalytic activity/Vol] 109 U/L Normal 38-113 [facility] Comment on above: Order Comment: Speci men Type: BLOOD SPECIMEN Ordering Facility: [facility] Address: [address] [place] [address] Performed By: #### 2 4323-8, 54879-9 #### [facility] CLIA [id number] [address] [place], [place] [id number] [place] ALT [Catalytic activity/Vol] 18 U/L Normal 10-54 [facility] Comment on above: Order Comment: Speci men Type: BLOOD SPECIMEN [facility]ing Facility: [facility] Address: [address] [place] [address] Performed By: #### 2 4323-8, 47220-3 #### [facility] CLIA [id number] [address] [place] [address] [place] Anion gap [Moles/Vol] 13 mmol/L Normal 8-15 [facility] Comment on above: Order Comment: Speci men Type: BLOOD SPECIMEN Ordering Facility[facility] Address: [address] [place] [address] Performed By: #### 2 4323-8, 14564-4 #### [facility] CLIA [id number] [address] [place] [address] [place] AST [Catalytic activity/Vol] 20 U/L Normal 14-40 [facility] Comment on above: Order Comment: Speci men Type: BLOOD SPECIMEN Ordering Facility: [facility] Address: [address] [place] [address] Performed By: #### 2 4323-8, 99850-9 #### [facility] CLIA [id number] [address] [place] [address] [place] Bilirubin [Mass/Vol] 0.3 mg/dL Normal 0.2-1.3 [facility] Comment on above: Order Comment: Speci men Type: BLOOD SPECIMEN Ordering Facility: [facility] Address: [address] [place] [address] Performed By: #### 2 4323-8, 54003-1 #### [facility] CLIA [id number] [address] [place] [address] [place] Calcium [Mass/Vol] 9.2 mg/dL Normal 8.5-10.2 [facility] Comment on above: Order Comment: Speci men Type: BLOOD SPECIMEN Ordering Facility: [facility] Address: [address] [place] [address] Performed By: #### 2 4323-8, 49580-9 #### [facility] CLIA [id number] [address] [place] [address] [place] Chloride [Moles/Vol] 103 mmol/L Normal 98-107 [facility] Comment on above: Order Comment: Speci men Type: BLOOD SPECIMEN Ordering Facility: [facility] Address: [address] [place] [address] Performed By: #### 2 4323-8, 21121-2 #### [facility] CLIA [id number] [address] [place] [address] [place] CO2 [Moles/Vol] 20 mmol/L Low 22-30 [facility] Comment on above: Order Comment: Speci men Type: BLOOD SPECIMEN Ordering Facility: [facility] Address: [address] [place] [address] Performed By: #### 2 4323-8, 78137-4 #### [facility] CLIA [id number] [address] [place] [address] [place] Creatinine [Mass/Vol] 1.10 mg/dL Normal 0.73-1.22 [facility] Comment on above: Order Comment: Speci men Type: BLOOD SPECIMEN Ordering Facility: [facility] Address: [address] [place] [address] Performed By: #### 2 4323-8, 96096-5 #### [facility] CLIA [id number] [address] [place] [address] [place] Creatinine and Glomerular filtration rate.predicted panel (S/P/Bld) 81 mL/min/1.73m??? Normal >=60 [facility] Comment on above: Order Comment: Speci men Type: BLOOD SPECIMEN Ordering Facility: [facility] Address: [address] [place] [address] Result Comment: Marlen mated Glomerular Filtration Rate (eGFR) is calculated using the 2020 CKD-EPI creatinine equation. This equation utilizes serum creatinine, sex, and age as parameters. The creatinine assay has traceable calibration to isotope dilution-mass spectrometry. Refer to KDIGO guidelines for clinical interpretation. In patients with unstable renal function, e.g. those with acute kidney injury, the eGFR may not accurately reflect actual GFR. Performed By: #### 2 4323-8, 91139-7 #### [facility] CLIA [id number] [address] [place] [address] [place] Glucose [Mass/Vol] 99 mg/dL Normal 74-99 [facility] Comment on above: Order Comment: Rose summers Type: BLOOD SPECIMEN Ordering Facility: [facility] Address: [address] [place] [address] Result Comment: The [place] Diabetes Association (ADA) provides guidance for cutoff values for fasting glucose and random glucose. The ADA defines fasting as no caloric intake for at least 8 hours. Fasting plasma glucose results between 100 to 125 mg/dL indicate increased risk for diabetes (prediabetes). Fasting plasma glucose results greater than or equal to 126 mg/dL meet the criteria for diagnosis of diabetes. In the absence of unequivocal hyperglycemia, results should be confirmed by repeat testing. In a patient with classic symptoms of hyperglycemia or hyperglycemic crisis, random plasma glucose results greater than or equal to 200 mg/dL meet the criteria for diagnosis of diabetes. Reference: Standards of Medical Care in Diabetes 2016, [place] Diabetes Association. Diabetes Care. 2016.39(Suppl 1). Performed By: #### 2 4323-8, 96302-2 #### [facility] CLIA [id number] [address] [place] [address] [place] Potassium [Moles/Vol] 4.2 mmol/L Normal 3.7-5.1 [facility] Comment on above: Order Comment: Rose summers Type: BLOOD SPECIMEN Ordering Facility: [facility] Address: [address] [place] [address] Performed By: #### 2 4323-8, 08533-9 #### [facility] CLIA [id number] [address] [place], [place] [address] [place] Protein [Mass/Vol] 7.8 g/dL Normal 6.3-8.0 [facility] Comment on above: Order Comment: Speci men Type: BLOOD SPECIMEN Ordering Facility: [facility] Address: [address] [place] [address] Performed By: #### 2 4323-8, 53261-5 #### [facility] CLIA [id number] [address] [place] [address] [place] Sodium [Moles/Vol] 136 mmol/L Normal 136-144 [facility] Comment on above: Order Comment: Speci men Type: BLOOD SPECIMEN Ordering Facility: [facility] Address: [address] [place] [address] Performed By: #### 2 4323-8, 70544-6 #### [facility] CLIA [id number] [address] [place] [address] [place] Urea nitrogen [Mass/Vol] 22 mg/dL Normal 9-24 [facility] Comment on above: Order Comment: Speci men Type: BLOOD SPECIMEN Ordering Facility: [facility] Address: [address] [place] [address] Performed By: #### 2 4323-8, 23354-7 #### [facility] CLIA [id number] [address] [place] [address] [place] HbA1c (Bld)on 05-15-2024 Average glucose Estimated from glycated hemoglobin (Bld) [Mass/Vol] 120 mg/dL Normal [facility] Comment on above: Order Comment: Speci men Type: BLOOD SPECIMENOrdering Facility: [facility] Address: [address] [place] [address] Result Comment: eAG: (Estimated average glucose) is a calculated value from HgbA1c and is compliance representative of the average blood glucose level in the last 2-3 month period. Performed By: #### 5 5454-3 ####[facility] [id number] [place] [address] [place] HbA1c (Bld) [Mass fraction] 5.8 % High 4.3-5.6 [facility] Comment on above: Order Comment: Rose summers Type: BLOOD SPECIMENOrdering Facility: [facility] Address: [address] [place] [address] Result Comment: [place] Diabetes Association guidelines indicate that patients with HgbA1c in the range 5.7-6.4% are at increased risk for development of diabetes, and intervention by lifestyle modification may be beneficial. HgbA1c greater or equal to 6.5% is considered diagnostic of diabetes. Performed By: #### 5 5454-3 ####[facility] [id number] [place] [address] [place] Lipid 1996 panelon 4 Cholesterol [Mass/Vol] 150 mg/dL Normal <200 [facility] Comment on above: Order Comment: Rose summers Type: BLOOD SPECIMEN Ordering Facility: [facility] Address: [address] [place] [address] Result Comment: <200 mg/dL, Desirable 200-239 mg/dL, Borderline high >239 mg/dL, High Performed By: #### 2 4323-8, 14245-3 #### [facility] CLIA [id number] [address] [place] [address] [place] Cholesterol in HDL [Mass/Vol] 50 mg/dL Normal >39 [facility] Comment on above: Order Comment: Rose [facility] Type: BLOOD SPECIMEN Ordering Facility: [facility] Address: [address] [place] [address] Result Comment: 40-5 9 mg/dL, Acceptable >59 mg/dL, High: Negative risk factor for coronary heart disease <40 mg/dL, Low: Positive risk factor for coronary heart disease Performed By: #### 2 4323-8, 30068-2 #### [facility] CLIA [id number] [address] [place], [place] [address] [address] [place] Cholesterol in LDL [Mass/Vol] 85 mg/dL Normal <100 [facility] Comment on above: Order Comment: Rose men Type: BLOOD SPECIMEN Ordering Facility: [facility] Address: [address] [place] [address] Result Comment: <100 mg/dL, Optimal 100-129 mg/dL, Near optimal/above optimal 130-159 mg/dL, Borderline high 160-189 mg/dL, High >189 mg/dL, Very high Secondary prevention optimal LDL Cholesterol levels are recommended to be < 70 mg/dL Performed By: #### 2 4323-8, 26871-9 #### [facility] CLIA [id number] [address] [place] [address] [place] Cholesterol in LDL/Cholesterol in HDL [Mass ratio] 1.70 {ratio} Normal <2.54 [facility] Comment on above: Order Comment: Rose summers Type: BLOOD SPECIMEN Ordering Facility: [facility] Address: [address] [place] [address] Result Comment: Refe iselace: 1. National Cholesterol Education Program ATP III Guideline At-A-Glance Quick Desk Reference: National Heart, Lung, and Blood Bend. National Institutes of Health. 2001: NIH Publication No. 01-3305. 2. An International Atherosclerosis Society position paper: global recommendations for the management of dyslipidemia: executive summary, Atherosclerosis. 2014: 232(2):410-413. Performed By: #### 2 4323-8, 13461-7 #### [facility] CLIA [id number] [address] [place] [address] [place] Cholesterol in VLDL [Mass/Vol] 15 mg/dL Normal <30 [facility] Comment on above: Order Comment: Rose summers Type: BLOOD SPECIMEN Ordering Facility: [facility] Address: [address] [place] [address] Performed By: #### 2 4323-8, 51197-6 #### [facility] CLIA [id number] [address] [place], [place] [address] [place] Cholesterol non HDL [Mass/Vol] 100 mg/dL Normal <130 [facility] Comment on above: Order Comment: Speci men Type: BLOOD SPECIMEN Ordering Facility: [facility] Address: [address] [place] [address] Result Comment: <130 mg/dL, Optimal 130-159 mg/dL, Near optimal/above optimal 160-189 mg/dL, Borderline high 190-219 mg/dL, High >219 mg/dL, Very high Secondary prevention optimal non HDL Cholesterol levels are recommended to be <100 mg/dL Performed By: #### 2 4323-8, 92650-7 #### [facility] CLIA [id number] [address] [place] [address] [place] Cholesterol.total/Katie sterol in HDL [Mass ratio] 3.00 {ratio} Normal <5.10 [facility] Comment on above: Order Comment: Speci men Type: BLOOD SPECIMEN Ordering Facility: [facility] Address: [address] [place] [address] Performed By: #### 2 4323-8, 17245-7 #### [facility] CLIA [id number] [address] [place] [address] [place] FASTING TIME 12 hrs Normal [facility] Comment on above: Order Comment: Speci men Type: BLOOD SPECIMEN Ordering Facility: [facility] Address: [address] [place] [address] Performed By: #### 2 4323-8, 96568-6 #### [facility] CLIA [id number] [address] [place] [address] [place] Triglyceride [Mass/Vol] 76 mg/dL Normal <150 [facility] Comment on above: Order Comment: Speci men Type: BLOOD SPECIMEN Ordering Facility: [facility] Address: [address] [place] [address] Result Comment: <150 mg/dL, Normal 150-199 mg/dL, Borderline high 200-499 mg/dL, High >499 mg/dL, Very high Performed By: #### 2 4323-8, 57829-8 #### [facility] CLIA [id number] [address] [place] [address] [place] No Panel Informationon 05-15 Radiology Study observation (narrative) Kassi cueva [facility] Paula 05-07-2024 CNPN Telephone (CORSMN) FIRST,DOV Katelyn ([id number]) 1970 M Date Time Provider Department 05/07/24 NICOLASA DENISE During your visit today, we recorded the following information about you: Callie Hall 05/07/2024 1:01 PM Signed [phone] Triny Patient calling to make sure that his CT ABD PEL he got on 05/04/24 at [facility] is ok and he does not need to keep the appointment for next Saturday at [facility]. Images and reports here. Cleo Parekh, RN 05/07/2024 1:59 PM Signed I discussed concerns with triny. For surveillance we would still need CT C as well. He said he will go to appt at [facility] and get the imaging done as planned. Pt verbalizes understanding and thanked me for the call. Allergies As of Date: 05/07/2024 (No Known Allergies) Date Reviewed: 10/08/2023 Reviewed by: Franca Rodriges LPN - Fully Assessed Reason for Visit: Patient Update [1234] Prescriptions as of 05/07/2024 - buPROPion SR (WELLBUTRIN SR) 150 mg 12 hr tablet Take 1 tablet by mouth two times a day. - fluvoxaMINE ER (LUVOX CR) 150 mg capsule Take 1 capsule by mouth daily at bedtime. - CPAP Continue Auto PAP @ 5-20 cm of water with humidification. Mask (per patient preference) optional chin strap (if indicated) , filters, tubing, humidifier and lifetime supplies. AMBROSE G47.33 - ferrous sulfate 325 mg (65 mg iron) tablet Take 1 tablet by mouth every other day. - multivitamin tablet Take 1 tablet by mouth once daily. Problem List As Of Date 05/07/2024 Noted Resolved AMBROSE on CPAP [G47.33] 02/18/2006 Abnormal weight gain [R63.5] 02/18/2006 01/25/2015 MALAISE AND FATIGUE NEC [R53.81, R53.83] 02/18/2006 ANXIETY STATE NOS [F41.1] 02/18/2006 Hypercholesteremia <130 [E78.00] 02/18/2006 OVERWEIGHT [E66.9] 02/18/2006 01/25/2015 DEPRESSIVE DISORDER NEC [F32.89] 02/20/2008 Cellulitis and abscess of unspecified site [L03*07/04/2009 01/25/2015 Non-healing surgical wound [T81.89XA] 07/06/2009 01/25/2015 Other adjustment reaction with predominant dist*01/17/2011 01/25/2015 Non morbid obesity due to excess calories [E66.*02/07/2017 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6] 06/08/2022 06/27/2022 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 Abdomen/Pelvis WITH Contrast on 05-04-2024 Abdomen/Pelvis WITH Contrast [facility] [address] [place], [place] [address] Abdomen/Pelvis WITH Contrast MR#: [id number] Acct: [id number] Name: DOV BURROWS Rep #: [id number] : 1970 M 54 From: Nicolasa Cueva PCP: Dr. Harjeet Bernard MD Status: REG ER Study: Abdomen/Pelvis WITH Contrast Date of Exam: 02/20 Exam# [id number] Ordering Dr: Ish Avendaño MD ADDENDUM by Dr. Nicolasa Temple MD on 05/04/24 at 0518 [id number] EXAM: CT ABDOMEN AND PELVIS WITH INTRAVENOUS CONTRAST CLINICAL INDICATION: vomiting, ileostomy, concern for SBO. History of appendiceal cancer with colectomy, ileostomy, and splenectomy. TECHNIQUE: Helically acquired images were obtained of the abdomen and pelvis with intravenous contrast. This CT exam was performed using one or more of the following dose reduction techniques: automated exposure control, adjustment of the mA and/or kV according to patient size, and/or use of iterative reconstruction technique. CONTRAST: 100 cc of Isovue-370 IV. Gastrografin oral contrast. RADIATION DOSE: CTDIvol = 18.30 mGy, DLP = 1304.35 mGy-cm COMPARISON: No relevant prior studies available. FINDINGS: LOWER THORAX: Unremarkable. Lung bases are clear. No cardiomegaly. No significant pericardial effusion. ABDOMEN: LIVER: Cyst measuring 2.5 cm left lobe of the liver. GALLBLADDER AND BILE DUCTS: Unremarkable. No calcified gallstones. No gallbladder distention or wall edema. No intra- or extrahepatic biliary ductal dilation. PANCREAS: Unremarkable. No focal cystic or solid mass. SPLEEN: Absent spleen. ADRENALS: Unremarkable. No nodules. KIDNEYS AND URETERS: Unremarkable. Normal renal size and position. No hydronephrosis. STOMACH AND BOWEL: Status post colectomy with ileostomy and Winters''s pouch. Oral contrast is seen throughout the small bowel. No bowel obstruction. PELVIS: APPENDIX: Status post appendectomy. BLADDER: Unremarkable. REPRODUCTIVE: Unremarkable as visualized. No mass. ABDOMEN and PELVIS: INTRAPERITONEAL SPACE: Extensive relatively low density masses throughout the peritoneum, mesentery, and omentum that causes some scalloping of the surface of the liver and mass effect on the bowel. No ascites or other fluid collection. No free air. BONES/JOINTS: Unremarkable. No suspicious lytic or blastic abnormality. SOFT TISSUES: Unremarkable. No discrete abdominal or pelvic wall hernia. VASCULATURE: Unremarkable. Abdominal aorta is non-dilated. LYMPH NODES: Unremarkable. No enlarged lymph nodes. 05/04/24517 Date cc: Dr. Ish Avendaño MD; Dr. Harjeet Bernard MD * Signed ADDENDUM by Dr. Nicolasa Temple MD on 05/04/[address]/Abdomen/Pelvis WITH Contrast IMPRESSION: 1. Extensive relatively low density masses throughout the peritoneum, mesentery, and omentum that causes some scalloping of the surface of the liver and mass effect on the bowel. Findings consistent with pseudomyxoma peritonei. 2. Status post colectomy with ileostomy and Winters''s pouch. 3. Cyst measuring 2.5 cm left lobe of the liver. 4. Absent spleen. N.B. : The above Results were Read Back by Nicolasa Temple MD to Ish Avendaño MD, and understanding confirmed on 05/04/2024 05:14:33 (ET). Electronically Signed: Nicolasa Temple MD at 5:18 EDT , 05/04/24524 Date cc: Dr. Ish Avendaño MD; Dr. Harjeet Bernard MD * Signed [id number] EXAM: CT ABDOMEN AND PELVIS WITH INTRAVENOUS CONTRAST CLINICAL INDICATION: vomiting, ileostomy, concern for SBO. History of appendiceal cancer with colectomy, ileostomy, and splenectomy. TECHNIQUE: Helically acquired images were obtained of the abdomen and pelvis with intravenous contrast. This CT exam was performed using one or more of the following dose reduction techniques: automated exposure control, adjustment of the mA and/or kV according to patient size, and/or use of iterative reconstruction technique. CONTRAST: 100 cc of Isovue-370 IV. Gastrografin oral contrast. RADIATION DOSE: CTDIvol = 18.30 mGy, DLP = 1304.35 mGy-cm COMPARISON: No relevant prior studies available. FINDINGS: LOWER THORAX: Unremarkable. Lung bases are clear. No cardiomegaly. No significant pericardial effusion. ABDOMEN: LIVER: Cyst measuring 2.5 cm left lobe of the liver. GALLBLADDER AND BILE DUCTS: Unremarkable. No calcified gallstones. No gallbladder distention or wall edema. No intra- or extrahepatic biliary ductal dilation. PANCREAS: Unremarkable. No focal cystic or solid mass. SPLEEN: Absent spleen. ADRENALS: Unremarkable. No nodules. KIDNEYS AND URETERS: Unremarkable. Normal renal size and (more content not included)... Normal [facility] CBC W/Diff, Automatedon PATH REV Reviewed Normal [facility] Comment on above: Result Comment: Neut rophilic leukocytosis. Clinical correlation necessary. Ron Mckeon M.D. 05/04/24 AMENDED REPORT 05/04/24 1333 PATH REV previously reported as: January Performed By: #### L 500.4050, L501.5200, L501.2300, L100.0100 #### [facility] [address] [place] [address]. [place], [address] CDIFF (PCR)on 05-04-2024 CDIFF A positive C. difficile molecular test does not differentiate between an active C. difficile infection and C. difficile colonization. Use clinical judgement and paired toxin/antigen testing to identify true infection and need for treatment. C diff DNA Spec Ql MONICA+probe Reference Range: Negative [employer] GeneXpert: polymerase chain reaction (PCR) 027 027 NAP1-B1 Presumptive Negative *for epidemiolologic???use C. Diff PCR Negative- No toxigenic C. Diff Detected Normal [facility] Comment on above: Performed By: #### L 500.4050, L501.5200, L501.2300, L100.0100 #### [facility] [address] [place], [address] Comprehensive Metabolic Prof ilon 05-04-2024 Albumin [Mass/Vol] 3.9 g/dL Normal 3.2-5.0 [facility] Comment on above: Performed By: #### L 500.4050, L501.5200, L501.2300, L100.0100 #### [facility] [address] [place], [address] Albumin/Globulin [Mass ratio] 0.8 {ratio} Low 0.9-2.4 [facility] Comment on above: Performed By: #### L 500.4050, L501.5200, L501.2300, L100.0100 #### [facility] [address] [place], [address] ALK P 134 U/L High 45-117 [facility] Comment on above: Performed By: #### L 500.4050, L501.5200, L501.2300, L100.0100 #### [facility] [address] [place], [address] ALT [Catalytic activity/Vol] 28 U/L Normal 16-61 [facility] Comment on above: Performed By: #### L 500.4050, L501.5200, L501.2300, L100.0100 #### [facility] [address] [place], [address] AST [Catalytic activity/Vol] 15 U/L Normal 15-37 [facility] Comment on above: Performed By: #### L 500.4050, L501.5200, L501.2300, L100.0100 #### [facility] [address] [place], [address] Bilirubin [Mass/Vol] 0.20 mg/dL Normal 0.20-1.00 [facility] Comment on above: Result Comment: For patients on eltrombopag therapy, use of Dimension [place] TBIL is not recommended. Performed By: #### L 500.4050, L501.5200, L501.2300, L100.0100 #### [facility] [address] [place], [address] BUN/CRE 23.5 RATIO High 10-20 [facility] Comment on above: Performed By: #### L 500.4050, L501.5200, L501.2300, L100.0100 #### [facility] [address] [place], [address] CA,Total 9.6 mg/dL Normal 8.5-10.1 [facility] Comment on above: Performed By: #### L 500.4050, L501.5200, L501.2300, L100.0100 #### [facility] [address] [place], [address] Chloride [Moles/Vol] 110 mmol/L High 98-107 [facility] Comment on above: Performed By: #### L 500.4050, L501.5200, L501.2300, L100.0100 #### [facility] [address] [place], [address] CO2 [Moles/Vol] 16.0 mmol/L Low 21.0-32.0 [facility] Comment on above: Performed By: #### L 500.4050, L501.5200, L501.2300, L100.0100 #### [facility] [address] [place], [address] Creatinine [Mass/Vol] 1.32 mg/dL High 0.70-1.30 [facility] Comment on above: Result Comment: The validity of the calculated GFR GFRAA in patients over 70 years has not been determined. Clinical correlation is essential. Performed By: #### L 500.4050, L501.5200, L501.2300, L100.0100 #### [facility] [address] [place], [address] ECRCL 83.02 ml/min Normal [facility] Comment on above: Performed By: #### L 500.4050, L501.5200, L501.2300, L100.0100 #### [facility] [address] [place], [address] EST GFR - AA 73 mL/min Normal >60 [facility] Comment on above: Result Comment: Afri can German GFR Calc Performed By: #### L 500.4050, L501.5200, L501.2300, L100.0100 #### [facility] [address] [place], [address] GAP 8 Normal 5-15 [facility] Comment on above: Performed By: #### L 500.4050, L501.5200, L501.2300, L100.0100 #### [facility] [address] [place], [address] GFR/1.73 sq M.predicted among non-blacks MDRD (S/P/Bld) [Vol rate/Area] 61 mL/min/{1.73_m2} Normal >60 [facility] Comment on above: Result Comment: Non- GFR Calc Performed By: #### L 500.4050, L501.5200, L501.2300, L100.0100 #### [facility] [address] [place], [address] Globulin (S) [Mass/Vol] 5.2 g/dL High 2.2-4.2 [facility] Comment on above: Performed By: #### L 500.4050, L501.5200, L501.2300, L100.0100 #### [facility] [address] [place], [address] Glucose [Mass/Vol] 164 mg/dL High 74-106 [facility] Comment on above: Result Comment: Fast ing Glucose result greater than or equal to 126 mg/dL suggests DIABETES MELLITUS per A.D.A. criteria. Performed By: #### L 500.4050, L501.5200, L501.2300, L100.0100 #### [facility] [address] [place], [address] Potassium [Moles/Vol] 3.9 mmol/L Normal 3.5-5.1 [facility] Comment on above: Performed By: #### L 500.4050, L501.5200, L501.2300, L100.0100 #### [facility] [address] [place], [address] Sodium [Moles/Vol] 134 mmol/L Low 136-145 [facility] Comment on above: Performed By: #### L 500.4050, L501.5200, L501.2300, L100.0100 #### [facility] [address] [place], [address] T PROT 9.1 g/dL High 6.4-8.2 [facility] Comment on above: Performed By: #### L 500.4050, L501.5200, L501.2300, L100.0100 #### [facility] [address] [place], [address] Urea nitrogen [Mass/Vol] 31 mg/dL High 7-18 [facility] Comment on above: Performed By: #### L 500.4050, L501.5200, L501.2300, L100.0100 #### [facility] [address] [place], [address] ENTERIC PATHOGEN PANEL STOOL on 05-04-2024 EP PANEL Normal Reference Ran ge = Not Detected GI pathogens Pnl Stl MONICA+probe Nucleic acid amplification test method GI pathogens Pnl Stl MONICA+probe Not detected for Campylobacter group, Salmonella species, Shigella species, Vibrio Group, Yersinia enterocolitica, EHEC (Shiga Toxin 1, Shiga Toxin 2), Norovirus Gl/Gll, and Rotavirus A. Other common stool pathogens are not detected on this panel include: Aeromonas/Plesiomonas or parasites. Order testing for these organisms separately if suspected. This is an amplified DNA test which makes it both specific and sensitive. CAMPYLOBACTER Not Detected Norovirus Not Detected Rotavirus Not Detected Salmonella Not Detected Shiga Toxin Not Detected Shigella sp. Not Detected VIBRIO Not Detected Yersinia Not Detected Normal [facility] Comment on above: Performed By: #### L 500.4050, L501.5200, L501.2300, L100.0100 #### [facility] [address] [facility] [place], [address] Emergency Department Summary on 05-04-2024 Emergency Department Summary [facility] Medical Records Department [address] [place] [address] Emergency Department Summary 05/04/24 MR#: [id number] Acct: [id number] Name: DOV BURROWS Rep #: [id number] : 1970 54 From: Ish Avendaño MD PCP: Dr. Harjeet Bernard MD Status:[facility] ER Location: ED HPI HPI - GI History of Present Illness Chief Complaint: Abd Pain Informant: patient and family Narrative Narrative: 54-year-old male presents with about 3 hours of vomiting and increased watery ileostomy output. Denies any abdominal pain. No hematemesis or blood or melena output from the stoma. He states for the last couple days prior to this, he would have transient decreased stoma output but it never stopped, and he had no pain or nausea/vomiting or fevers along with it. 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 He states when they found issues in the past he did not have pain, and he and family specifically state they are here to be evaluated for a bowel obstruction. He denies any fevers or chills or sick contacts lately, including anyone with gastroenteritis. He denies any suspicious food ingestion. No travel out of the area of the country lately. No pains elsewhere. No history of C. difficile, no recent antibiotics for anything. No recent hospitalizations. [facility] Medical History (Updated 05/04/24 @ 05:[address] Ish Avendaño MD) Cancer of appendix Ileostomy present Acute appendicitis Home Medications ???Medication ???Instructions ???Recorded ???Last Taken ???Type bupropion HCl 150 mg tablet,12 hr 150 mg PO DAILY 05/04/24 Unknown History sustained-release fluvoxamine 150 mg 150 mg PO DAILY 05/04/24 Unknown History capsule,extended release 24 hr ondansetron 8 mg disintegrating 8 mg PO Q8H PRN nausea and 05/04/24 Unknown Rx tablet vomiting #20 tabs Allergy/AdvReac Type Severity Reaction Status Date / Time No Known Allergies Allergy Verified 05/04/24 02:04 Surgical History (Updated 05/04/24 @ 03:[address] Ish Avendaño MD) S/P splenectomy H/O colectomy Social History Smoking Status: Never smoker ROS ROS ED Constitutional Constitutional ED: Denies chills or fever(s) Eyes Eyes: Denies change in vision or diplopia ENT ENT ED: Denies rhinorrhea or sore throat Cardiovascular Cardiovascular: Denies chest pain or palpitations Respiratory/Chest Respiratory/Chest: Denies cough or dyspnea Gastrointestinal Gastrointestinal: Reports as per HPI, diarrhea, nausea and vomiting; Denies abdominal pain, hematemesis, hematochezia or melena Genitourinary Genitourinary ED: Denies dysuria or hematuria Musculoskeletal Musculoskeletal: Denies back pain or neck pain Integumentary Denies abscess or rash Neurologic Neurologic: Denies headache(s), paresthesias or weakness Psychiatric Psychiatric: Denies anxiety or suicidal thoughts EXAM Physical Exam Const Vital Signs: 05/04/24 01:57 05/04/24 02:59 05/04/24 04:00 Temperature 97.8 F 97.7 F L 97.8 F Temperature Source Oral Oral Temporal Pulse Rate 87 93 94 Respiratory Rate 16 16 16 Blood Pressure 122/84 H 125/93 H 112/74 Blood Pressure Mean 96 103 86 Pulse Ox 97 96 96 Oxygen Delivery Method Room Air Room Air Room Air 05/04/24 05:00 Temperature 97.8 F Temperature Source Oral Pulse Rate 84 Respiratory Rate 16 Blood Pressure 128/85 H Blood Pressure Mean 99 Pulse Ox 98 Oxygen Delivery Method Room Air Positive well nourished and well developed Constitutional Narrative: Well-appearing, pleasant and conversive General Appearance ED: well developed and NAD HEENT Reports moist mucous membranes normocephalic and atraumatic Eyes PERRL and EOMs intact bilaterally Neck full ROM and supple Resp normal respiratory effort and clear to auscultation bilaterally Cardio regular rate, regular rhythm and no murmurs GI non-tender and non-distended GI Narrative: Very benign abdomen no reproducible tenderness or palpable masses. Right-sided ileostomy has liquid brown stool within it and is actively putting out flatus. Bowel sounds are active. Auscultation: normoactive bowel sounds Palpation: soft Back/Spine no CVA tenderness General Back: other FROM Extremity normal to inspection General Extremety ED: Negative for edema, pulses abnormal or tenderness General Extremity: Negative for edema or pulses abnormal Neuro oriented x3, CN's II-XII intact bilaterally and no sensory deficits noted Sensorium / Orientation: awake and alert Motor Exam: strength 5/5 throughout Skin no rashes or lesions noted and no wounds MDM MDM MD (more content not included)... Normal [facility] Lactic Acidon 05-04-2024 Lactate [Moles/Vol] 1.1 mmol/L Normal 0.4-1.9 [facility] Comment on above: Order Comment: Y Performed By: #### L 500.4050, L501.5200, L501.2300, L100.0100 #### [facility] [address] [place], [place], [address] [facility] 04-13-[address] [facility] Telephone ([facility]) FIRST,DOV Zepeda ([id number]) 1970 M Date Time Provider Department 04/13/24 NICOLASA DENISE During your visit today, we recorded the following information about you: Callie Hall 04/13/2024 1:49 PM Signed [phone] Triny Patient needs his yearly CT C/ABD/PEL order placed for his follow up with Dr. Denise on 06/15/24 Dorinda Saenz RN 04/13/2024 2:09 PM Signed SPECIALTY CARE COORDINATION FOLLOW-UP NOTE Called patient. Order placed. Dorinda Saenz RN April 13, 2024 Allergies As of Date: 04/13/2024 (No Known Allergies) Date Reviewed: 10/08/2023 Reviewed by: Franca Rodriges LPN - Fully Assessed Reason for Visit: Patient Update [1234] Prescriptions as of 04/13/2024 - iv contrast (will be provided with radiology test) CT Chest W -Inject, intravenously, once for 1 dose.No IV access, insert saline lock prior to the beginning of sedation, infusion, injection of imaging exam. Discontinue saline lock post exam. If Pt. has a central line or IVAD, may access for administration according to line specific nursing protocol. Once exam is complete flush line and de-access according to line specific nursing protocol in the CT contrast administration guidelines link. - iv contrast (will be provided with radiology test) CT ABD/PEL -Inject, intravenously, once for 1 dose.No IV access, insert saline lock prior to the beginning of sedation, infusion, injection of imaging exam. Discontinue saline lock post exam. If Pt. has a central line or IVAD, may access for administration according to line specific nursing protocol. Once exam is complete flush line and de-access according to line specific nursing protocol in the CT contrast administration guidelines link. - enteric contrast (will be provided with radiology test) For CT ABD/PEL W IVCON Routine order Administer, As Directed One Time Only, via Oral, Rectal, both Oral and Rectal, Enteric Tube, Stoma or Indwelling Catheter, Enteric Contrast as designated per enteric contrast guidelines - buPROPion SR (WELLBUTRIN SR) 150 mg 12 hr tablet Take 1 tablet by mouth two times a day. - fluvoxaMINE ER (LUVOX CR) 150 mg capsule Take 1 capsule by mouth daily at bedtime. - CPAP Continue Auto PAP @ 5-20 cm of water with humidification. Mask (per patient preference) optional chin strap (if indicated) , filters, tubing, humidifier and lifetime supplies. AMBROSE G47.33 - ferrous sulfate 325 mg (65 mg iron) tablet Take 1 tablet by mouth every other day. - multivitamin tablet Take 1 tablet by mouth once daily. Problem List As Of Date 04/13/2024 Noted Resolved AMBROSE on CPAP [G47.33] 02/18/2006 Abnormal weight gain [R63.5] 02/18/2006 01/25/2015 MALAISE AND FATIGUE NEC [R53.81, R53.83] 02/18/2006 ANXIETY STATE NOS [F41.1] 02/18/2006 Hypercholesteremia <130 [E78.00] 02/18/2006 OVERWEIGHT [E66.9] 02/18/2006 01/25/2015 DEPRESSIVE DISORDER NEC [F32.89] 02/20/2008 Cellulitis and abscess of unspecified site [L03*07/04/2009 01/25/2015 Non-healing surgical wound [T81.89XA] 07/06/2009 01/25/2015 Other adjustment reaction with predominant dist*01/17/2011 01/25/2015 Non morbid obesity due to excess calories [E66.*02/07/2017 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6] 06/08/2022 06/27/2022 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 No Panel Informationon 05-17 [facility] XR ABSCESS DRAIN INJECTIONon 09-14-2022 [facility] Absolute lymphocyte counton 07-25-2022 Lymphocytes Auto (Unsp spec) [#/Vol] 1.61 10*3/uL 0.83-4.51 [facility] Automated blood hematocrit ( percentage)on 07-25-2022 Hematocrit (Bld) [Volume fraction] 31.0 % 40-54 [facility] Basophil percentageon 2021 Basophils/100 WBC (Bld) 0.6 % 0-1 [facility] Bilirubin [Mass/Vol] 0.20 mg/dL 0.20-1.00 [facility] Comment on above: For patients on eltr ombopag therapy, use of Dimension [place] TBIL is not recommended. Eosinophils/100 WBC (Bld) 4.6 % 0-5 [facility] Neutrophils (Bld) [#/Vol] 4.8 10*3/uL 2.0-7.7 [facility] Neutrophils/100 WBC (Bld) 59.7 % 47-70 [facility] Protein [Mass/Vol] 8.1 g/dL 6.4-8.2 [facility] WBC (Bld) [#/Vol] 8.1 10*3/uL 4.4-11.0 [facility] Blood erythrocytes count (nu mber/volume)on 07-25-2022 RBC (Bld) [#/Vol] 3.51 10*6/uL 4.6-6.2 [facility] Blood hemoglobin measurement (mass/volume)on 07-25-2022 Hemoglobin (Bld) [Mass/Vol] 9.5 g/dL 13.0-16.5 [facility] Blood lymphocytes/100 leukoc yteson 07-25-2022 Lymphocytes/100 WBC (Bld) 19.8 % 19-41 [facility] Blood monocytes/100 leukocyt eson 07-25-2022 Monocytes/100 WBC (Bld) 15.1 % 0-10 [facility] Blood platelet mean volumeon 07-25-2022 Platelet mean volume (Bld) [Entitic vol] 8.7 fL 6.2-12.0 [facility] CBC W Auto Differential pane l (Bld)on 07-25-2022 Abs Neut (ANC) 4.8 K/uL 2 - 7 K/uL [facility] CK [Catalytic activity/Vol]o n 07-25-2022 CK 174 39 - 308 [facility] Comprehensive metabolic 2000 panelon 07-25-2022 AST [Catalytic activity/Vol] 22 U/L 15 - 37 [facility] Determination of erythrocyte mean corpuscular volume (MCV)on 07-25-2022 MCV (RBC) [Entitic vol] 88.3 fL 80-94 [facility] Direct bilirubinon Bilirubin.direct [Mass/Vol] 0.18 mg/dL 0.00-0.30 [facility] - Chemistry and C hemistry - challengeon 07-25-2022 ALP [Catalytic activity/Vol] 145 U/L 45-117 [facility] ALT [Catalytic activity/Vol] 31 U/L 16-61 [facility] CK [Catalytic activity/Vol] 174 U/L 39-308 [facility] Globulin (S) [Mass/Vol] 5.5 g/dL 2.2-4.2 [facility] - Hematology and Cell countson 07-25-2022 Erythrocyte distribution width (RBC) [Entitic vol] 54.6 fL 35.1-43.9 [facility] Erythrocyte distribution width (RBC) [Ratio] 17.0 % 11.6-14.6 [facility] Immature granulocytes/100 WBC (Bld) 0.200 % 0.0-0.9 [facility] Comment on above: IG% - Immature Granu locytes (promyelocytes, myelocytes and metamyelocytes) > 1% indicates that a LEFT SHIFT is Present. MCH (RBC) [Entitic mass] 27.1 pg 27.0-32.0 [facility] Nucleated RBC/100 WBC (Bld) [Ratio] 0 % 0-5 [facility] MCHC Auto (RBC) [Mass/Vol]on 07-25-2022 MCHC (RBC) [Mass/Vol] 30.6 g/dL 32-36 [facility] No Panel Informationon 07-25 Estimated GFR (MDRD) Amer 156 mL/min >60 [facility] Comment on above: GFR Calc Estimated GFR (MDRD) Non-Af Amer 129 mL/min >60 [facility] Comment on above: Non- GFR Calc Platelets bldon 07-25-2022 Platelets (Bld) [#/Vol] 721 10*3/uL 150-450 [facility] Serum or plasma albumin tran urement (mass/volume)on 07-25-2022 Albumin [Mass/Vol] 2.6 g/dL 3.2-5.0 [facility] Serum or plasma creatinine m easurement (mass/volume)on 07-25-2022 Creatinine [Mass/Vol] 0.69 mg/dL 0.70-1.30 [facility] Comment on above: The validity of the calculated GFR & GFRAA in patients over 70 years has not been determined. Clinical correlation is essential. Thin prep Papanicolaou smear with manual screeningon 07-25-2022 Thin prep Papanicolaou smear with manual screening 22 U/L 15-37 [facility] ERCPon 07-19-2022 [facility] Absolute lymphocyte counton 07-16-2022 Lymphocytes Auto (Unsp spec) [#/Vol] 1.45 10*3/uL 0.83-4.51 [facility] Work Phone: Automated blood hematocrit ( percentage)on 07-16-2022 Hematocrit (Bld) [Volume fraction] 31.7 % 40-54 [facility] BILIRUBIN TOTAL BLDon 2021 Bilirubin [Mass/Vol] 0.3 mg/dL 0.2 - 1 [facility] Basophil percentageon 2021 Basophils/100 WBC (Bld) 0.7 % 0-1 [facility] Work Phone: Bilirubin [Mass/Vol] 0.30 mg/dL 0.20-1.00 [facility] Work Phone: Comment on above: For patients on eltr ombopag therapy, use of Dimension [place] TBIL is not recommended. Eosinophils/100 WBC (Bld) 2.5 % 0-5 [facility] Neutrophils (Bld) [#/Vol] 5.3 10*3/uL 2.0-7.7 [facility] Work Phone: Neutrophils/100 WBC (Bld) 63.6 % 47-70 [facility] Protein [Mass/Vol] 8.2 g/dL 6.4-8.2 [facility] Work Phone: WBC (Bld) [#/Vol] 8.4 10*3/uL 4.4-11.0 [facility] Blood erythrocytes count (nu mber/volume)on 07-16-2022 RBC (Bld) [#/Vol] 3.57 10*6/uL 4.6-6.2 [facility] Work Phone: Blood hemoglobin measurement (mass/volume)on 07-16-2022 Hemoglobin (Bld) [Mass/Vol] 9.4 g/dL 13.0-16.5 [facility] Blood lymphocytes/100 leukoc yteson 07-16-2022 Lymphocytes/100 WBC (Bld) 17.3 % 19-41 [facility] Work Phone: Blood monocytes/100 leukocyt eson 07-16-2022 Monocytes/100 WBC (Bld) 15.5 % 0-10 [facility] Work Phone: Blood platelet adequacy dete ction by light microscopyon 07-16-2022 Platelets LM Ql (Bld) [facility] Work Phone: Blood platelet mean volumeon 07-16-2022 Platelet mean volume (Bld) [Entitic vol] 8.7 fL 6.2-12.0 [facility] Work Phone: CBC W Auto Differential pane l (Bld)on 07-16-2022 Abs Neut (ANC) 5.3 K/uL 2 - 7.7 K/uL [facility] CK [Catalytic activity/Vol]o n 07-16-2022 CK 61 39 - 308 [facility] Comprehensive metabolic 2000 panelon 07-16-2022 AST [Catalytic activity/Vol] 61 U/L Abnormal 15 - 37 [facility] Determination of erythrocyte mean corpuscular volume (MCV)on 07-16-2022 MCV (RBC) [Entitic vol] 88.8 fL 80-94 [facility] Work Phone: Direct bilirubinon 2 Bilirubin.direct [Mass/Vol] 0.24 mg/dL 0.00-0.30 [facility] Work Phone: Laboratory - Chemistry and C hemistry - challengeon 07-16-2022 ALP [Catalytic activity/Vol] 156 U/L 45-117 [facility] ALT [Catalytic activity/Vol] 33 U/L 16-61 [facility] CK [Catalytic activity/Vol] 61 U/L 39-308 [facility] Work Phone: Globulin (S) [Mass/Vol] 5.8 g/dL 2.2-4.2 [facility] Work Phone: Laboratory - Hematology and Cell countson 07-16-2022 Erythrocyte distribution width (RBC) [Entitic vol] 54.6 fL 35.1-43.9 [facility] Work Phone: Erythrocyte distribution width (RBC) [Ratio] 17.0 % 11.6-14.6 [facility] Work Phone: [phone] Immature granulocytes/100 WBC (Bld) 0.400 % 0.0-0.9 [facility] Work Phone: Comment on above: IG% - Immature Granu locytes (promyelocytes, myelocytes and metamyelocytes) > 1% indicates that a LEFT SHIFT is Present. MCH (RBC) [Entitic mass] 26.3 pg 27.0-32.0 [facility] Work Phone: Nucleated RBC/100 WBC (Bld) [Ratio] 0 % 0-5 [facility] Work Phone: MCHC Auto (RBC) [Mass/Vol]on 07-16-2022 MCHC (RBC) [Mass/Vol] 29.7 g/dL 32-36 [facility] Work Phone: No Panel Informationon 07-16 Estimated GFR (MDRD) Amer 129 mL/min >60 [facility] Work Phone: Comment on above: GFR Calc Estimated GFR (MDRD) Non-Af Amer 107 mL/min >60 [facility] Work Phone: Comment on above: Non- GFR Calc Platelets bldon 07-16-2022 Platelets (Bld) [#/Vol] 825 10*3/uL 150-450 [facility] Comment on above: RESULTS CALLED TO RN 07/16/22 1325 David Raza.REPORT READ BACK BY SAME.Previous reported result: 825 K/ni9Dlhaff by: LEON on 07/16/22:1325 AMENDED REPORT 07/16/22 1325 PLT previously reported as: 825 *H K/mm3 RBC morphologyon 07-16-2022 RBC morphology finding Nom (Bld) NORM C+C NORMAL NORM C&C [facility] Work Phone: Review by pathologiston 06-30 Pathologist review Marco (Unsp spec) [Interp] Reviewed [facility] Work Phone: Comment on above: Previous reported re sult: Lashae barton Edited by: RGOSEVERIANO on 07/17/22:1354Normocytic anemia.Thrombocytosis.Clinical correlation necessary.Ron Mckeon M.D. 07/17/22 AMENDED REPORT 07/17/22 3708 PATH REV previously reported as: Lashae barton Serum or plasma albumin tran urement (mass/volume)on 07-16-2022 Albumin [Mass/Vol] 2.4 g/dL 3.2-5.0 [facility] Work Phone: Serum or plasma creatinine easurement (mass/volume)on 07-16-2022 Creatinine [Mass/Vol] 0.81 mg/dL 0.70-1.30 [facility] Comment on above: The validity of the calculated GFR & GFRAA in patients over 70 years has not been determined. Clinical correlation is essential. Thin prep Papanicolaou smear with manual screeningon 07-16-2022 Thin prep Papanicolaou smear with manual screening 15 U/L 15-37 [facility] Work Phone: No Panel Informationon 07-10 [facility] CBC W Auto Differential pane l (Bld)on 07-02-2022 Basophils (Bld) [#/Vol] 10*3/uL Normal <0.11 [facility] Comment on above: Order Comment: Speci men Type: BLOOD SPECIMEN Ordering Facility: [facility] Address: [address] [place] [address] Performed By: #### 5 7021-8 #### [facility] CLIA [id number] [address] [place] [address] [place] Basophils/100 WBC (Bld) 0.3 % Normal [facility] Comment on above: Order Comment: Speci men Type: BLOOD SPECIMEN Ordering Facility: [facility] Address: [address] [place] [address] Performed By: #### 5 7021-8 #### [facility] CLIA [id number] [address] [place] [address] [place] Differential cell count method Nom (Bld) Auto Normal [facility] Comment on above: Order Comment: Speci men Type: BLOOD SPECIMEN Ordering Facility: [facility] Address: [address] [place] [address] Performed By: #### 5 7021-8 #### [facility] CLIA [id number] [address] [place] [address] [place] Eosinophils (Bld) [#/Vol] 0.07 10*3/uL Normal <0.46 [facility] Comment on above: Order Comment: Speci men Type: BLOOD SPECIMEN Ordering Facility: [facility] Address: [address] [place] [address] Performed By: #### 5 7021-8 #### [facility] CLIA [id number] [address] [place] [address] [place] Eosinophils/100 WBC (Bld) 1.1 % Normal [facility] Comment on above: Order Comment: Speci men Type: BLOOD SPECIMEN Ordering Facility: [facility] Address: [address] [place], [place] [address] [address] Performed By: #### 5 7021-8 #### [facility] CLIA [id number] [address] [place] [address] [place] Erythrocyte distribution width (RBC) [Ratio] 17.6 % High 11.5-15.0 [facility] Comment on above: Order Comment: Speci men Type: BLOOD SPECIMEN Ordering Facility: [facility] Address: [address] [place] [address] Performed By: #### 5 7021-8 #### [facility] CLIA [id number] [address] [place] Hematocrit (Bld) [Volume fraction] 28.2 % Low 39.0-51.0 [facility] Comment on above: Order Comment: Speci men Type: BLOOD SPECIMEN Ordering Facility: [facility] Address: [address] [place], [place] [address] [address] Performed By: #### 5 7021-8 #### [facility] CLIA [id number] [address] [place] Hemoglobin (Bld) [Mass/Vol] 8.2 g/dL Low 13.0-17.0 [facility] Comment on above: Order Comment: Speci men Type: BLOOD SPECIMEN Ordering Facility: [facility] Address: [address] [place] [address] Performed By: #### 5 7021-8 #### [facility] CLIA [id number] [address] [place] IMMATURE GRAN % 0.3 % Normal [facility] Comment on above: Order Comment: Speci men Type: BLOOD SPECIMEN Ordering Facility: [facility] Address: [address] [place] [address] Performed By: #### 5 7021-8 #### [facility] CLIA [id number] [address] IMMATURE GRAN ABS <0.03 Normal <0.10 [facility] Comment on above: Order Comment: Speci men Type: BLOOD SPECIMEN Ordering Facility: [facility] Address: [address] [place] [address] Performed By: #### 5 7021-8 #### [facility] CLIA [id number] [address] Lymphocytes (Bld) [#/Vol] 1.21 10*3/uL Normal 1.00-4.00 [facility] Comment on above: Order Comment: Speci men Type: BLOOD SPECIMEN Ordering Facility: [facility] Address: [address] [place] [address] Performed By: #### 5 7021-8 #### [facility] CLIA [id number] [address] Lymphocytes/100 WBC (Bld) 18.2 % Normal [facility] Comment on above: Order Comment: Speci men Type: BLOOD SPECIMEN Ordering Facility: [facility] Address: [address] [place] [address] Performed By: #### 5 7021-8 #### [facility] CLIA [id number] [address] MCH (RBC) [Entitic mass] 27.1 pg Normal 26.0-34.0 [facility] Comment on above: Order Comment: Speci men Type: BLOOD SPECIMEN Ordering Facility: [facility] Address: [address] [place] [address] Performed By: #### 5 7021-8 #### [facility] CLIA [id number] [address] MCHC (RBC) [Mass/Vol] 29.1 g/dL Low 30.5-36.0 [facility] Comment on above: Order Comment: Speci men Type: BLOOD SPECIMEN Ordering Facility: [facility] Address: [address] [place] [address] Performed By: #### 5 7021-8 #### [facility] CLIA [id number] [address] [place] [address] [place] MCV (RBC) [Entitic vol] 93.1 fL Normal 80.0-100.0 [facility] Comment on above: Order Comment: Speci men Type: BLOOD SPECIMEN Ordering Facility: [facility] Address: [address] [place] [address] Performed By: #### 5 7021-8 #### [facility] CLIA [id number] [address] [place] [address] [place] Monocytes (Bld) [#/Vol] 1.48 10*3/uL High <0.87 [facility] Comment on above: Order Comment: Speci men Type: BLOOD SPECIMEN Ordering Facility: [facility] Address: [address] [place] [address] Performed By: #### 5 7021-8 #### [facility] CLIA [id number] [address] [place] Monocytes/100 WBC (Bld) 22.2 % Normal [facility] Comment on above: Order Comment: Speci men Type: BLOOD SPECIMEN Ordering Facility: [facility] Address: [address] [place] [address] Performed By: #### 5 7021-8 #### [facility] CLIA [id number] [address] [place] [address] [place] Neutrophils (Bld) [#/Vol] 3.86 10*3/uL Normal 1.45-7.50 [facility] Comment on above: Order Comment: Speci men Type: BLOOD SPECIMEN Ordering Facility: [facility] Address: [address] [place] [address] Performed By: #### 5 7021-8 #### [facility] CLIA [id number] [address] [place] Neutrophils/100 WBC (Bld) 57.9 % Normal [facility] Comment on above: Order Comment: Speci men Type: BLOOD SPECIMEN Ordering Facility: [facility] Address: [address] [place] [address] Performed By: #### 5 7021-8 #### [facility] CLIA [id number] [address] [place] [address] [facility] [place] Nucleated RBC (Bld) [#/Vol] 10*3/uL Normal <0.01 [facility] Comment on above: Order Comment: Speci men Type: BLOOD SPECIMEN Ordering Facility: [facility] Address: [address] [place] [address] Performed By: #### 5 7021-8 #### [facility] CLIA [id number] [address] [place] [address] [place] Nucleated RBC/100 WBC (Bld) [Ratio] 0.0 /100 WBC Normal [facility] Comment on above: Order Comment: Speci men Type: BLOOD SPECIMEN Ordering Facility: [facility] Address: [address] [place] [address] Performed By: #### 5 7021-8 #### [facility] CLIA [id number] [address] [place] [address] [place] Platelet mean volume (Bld) [Entitic vol] 8.7 fL Low 9.0-12.7 [facility] Comment on above: Order Comment: Speci men Type: BLOOD SPECIMEN Ordering Facility: [facility] Address: [address] [place] [address] Performed By: #### 5 7021-8 #### [facility] CLIA [id number] [address] [place] [address] [place] Platelets (Bld) [#/Vol] 1020 10*3/uL High 150-400 [facility] Comment on above: Order Comment: Speci men Type: BLOOD SPECIMEN Ordering Facility: [facility] Address: [address] [place] [address] Result Comment: No c lot detected Performed By: #### 5 7021-8 #### [facility] CLIA [id number] [address] [place] [address] [place] RBC (Bld) [#/Vol] 3.03 10*6/uL Low 4.20-6.00 [facility] Comment on above: Order Comment: Speci men Type: BLOOD SPECIMEN Ordering Facility: [facility] Address: [address] [place] [address] Performed By: #### 5 7021-8 #### [facility] CLIA [id number] [address] [place] [address] [place] WBC (Bld) [#/Vol] 6.66 10*3/uL Normal 3.70-11.00 [facility] Comment on above: Order Comment: Speci men Type: BLOOD SPECIMEN Ordering Facility: [facility] Address: [address] [place] [address] Performed By: #### 5 7021-8 #### [facility] CLIA [id number] [address] [place] [address] [place] CK SerPl-cCncon 07-02-2022 CK [Catalytic activity/Vol] 24 U/L Low 51-298 [facility] Comment on above: Order Comment: Speci men Type: BLOOD SPECIMEN Ordering Facility: [facility] Address: [address] [place] [address] Performed By: #### 2 157-6, 12236-5, CRET1 #### [facility] CLIA [id number] [address] [place] [address] [place] CREATININE BLDon 07-02-2022 Creatinine [Mass/Vol] 0.58 mg/dL Low 0.73-1.22 [facility] Comment on above: Order Comment: Speci men Type: BLOOD SPECIMEN Ordering Facility: [facility] Address: [address] [place] [address] Performed By: #### 2 157-6, 70665-6, CRET1 #### [facility] CLIA [id number] [address] [place] ESTIMATED GLOMERULAR FILTRATION RATE 119 mL/min/1.73m??? Normal >=60 [facility] Comment on above: Order Comment: Speci men Type: BLOOD SPECIMEN Ordering Facility: [facility] Address: [address] [place] [address] Result Comment: Marlen mated Glomerular Filtration Rate (eGFR) is calculated using the 2020 CKD-EPI creatinine equation. This equation utilizes serum creatinine, sex, and age as parameters. The creatinine assay has traceable calibration to isotope dilution-mass spectrometry. Refer to KDIGO guidelines for clinical interpretation. In patients with unstable renal function, e.g. those with acute kidney injury, the eGFR may not accurately reflect actual GFR. Performed By: #### 2 157-6, 32973-0, CRET1 #### [facility] CLIA [id number] [address] [place] [address] [place] Hepatic function 2000 panelo n 07-02-2022 Albumin [Mass/Vol] 3.0 g/dL Low 3.9-4.9 [facility] Comment on above: Order Comment: Speci men Type: BLOOD SPECIMEN Ordering Facility: [facility] Address: [address] [place] [address] Performed By: #### 2 157-6, 72115-2, CRET1 #### [facility] CLIA [id number] [address] [place] [address] [place] ALP [Catalytic activity/Vol] 211 U/L High 38-113 [facility] Comment on above: Order Comment: Speci men Type: BLOOD SPECIMEN Ordering Facility: [facility] Address: [address] [place] [address] Performed By: #### 2 157-6, 16654-6, CRET1 #### [facility] CLIA [id number] [address] [place] ALT [Catalytic activity/Vol] 12 U/L Normal 10-54 [facility] Comment on above: Order Comment: Speci men Type: BLOOD SPECIMEN Ordering Facility: [facility] Address: [address] [place] [address] Performed By: #### 2 157-6, 43276-3, CRET1 #### [facility] CLIA [id number] [address] AST [Catalytic activity/Vol] 15 U/L Normal 14-40 [facility] Comment on above: Order Comment: Speci men Type: BLOOD SPECIMEN Ordering Facility: [facility] Address: [address] [place] [address] Performed By: #### 2 157-6, 29316-5, CRET1 #### [facility] CLIA [id number] [address] [place] Bilirubin [Mass/Vol] 0.4 mg/dL Normal 0.2-1.3 [facility] Comment on above: Order Comment: Speci men Type: BLOOD SPECIMEN Ordering Facility: [facility] Address: [facility] [address] [place] [address] Performed By: #### 2 157-6, 82276-7, CRET1 #### [facility] CLIA [id number] [address] Bilirubin.conjugated [Mass/Vol] mg/dL Normal <0.2 [facility] Comment on above: Order Comment: Speci men Type: BLOOD SPECIMEN Ordering Facility: [facility] Address: [facility] [place] [address] Performed By: #### 2 157-6, 76384-9, CRET1 #### [facility] CLIA [id number] [address] Protein [Mass/Vol] 7.8 g/dL Normal 6.3-8.0 [facility] Comment on above: Order Comment: Speci men Type: BLOOD SPECIMEN Ordering Facility: [facility] Address: [facility] [place] [address] Performed By: #### 2 157-6, 99908-1, CRET1 #### [facility] CLIA [id number] [address] CBC W Auto Differential pane l (Bld)on 05-11-2022 Abs Immature Gran <0.10 k/uL [facility] Basophils (Bld) [#/Vol] <0.11 k/uL [facility] Basophils/100 WBC (Bld) 0.4 % [facility] Differential cell count method Nom (Bld) Auto [facility] Eosinophils (Bld) [#/Vol] 0.08 10*3/uL <0.46 k/uL [facility] Eosinophils/100 WBC (Bld) 1.4 % [facility] Erythrocyte distribution width (RBC) [Ratio] 16.3 % High 11.5 - 15.0 % [facility] Hematocrit (Bld) [Volume fraction] 33.8 % Low 39.0 - 51.0 % [facility] Hemoglobin (Bld) [Mass/Vol] 9.7 g/dL Low 13.0 - 17.0 g/dL [facility] Immature Gran % 0.4 % [facility] Lymphocytes (Bld) [#/Vol] 0.92 10*3/uL Low 1.00 - 4.00 k/uL [facility] Lymphocytes/100 WBC (Bld) 16.5 % [facility] MCH (RBC) [Entitic mass] 21.7 pg Low 26.0 - 34.0 pg [facility] MCHC (RBC) [Mass/Vol] 28.7 g/dL Low 30.5 - 36.0 g/dL [facility] MCV (RBC) [Entitic vol] 75.4 fL Low 80.0 - 100.0 fL [facility] Monocytes (Bld) [#/Vol] 0.66 10*3/uL <0.87 k/uL [facility] Monocytes/100 WBC (Bld) 11.8 % [facility] Neutrophils (Bld) [#/Vol] 3.88 10*3/uL 1.45 - 7.50 k/uL [facility] Neutrophils/100 WBC (Bld) 69.5 % [facility] Nucleated RBC (Bld) [#/Vol] <0.01 k/uL [facility] Nucleated RBC/100 WBC (Bld) [Ratio] 0.0 /100 WBC [facility] Platelet mean volume (Bld) [Entitic vol] 8.5 fL Low 9.0 - 12.7 fL [facility] Platelets (Bld) [#/Vol] 384 10*3/uL 150 - 400 k/uL [facility] RBC (Bld) [#/Vol] 4.48 10*6/uL 4.20 - 6.0 0 m/uL [facility] WBC (Bld) [#/Vol] 5.58 10*3/uL 3.70 - 11. 00 k/uL [facility] CNPNon 04-30-2022 CNPN Telephone (MEPRAD) DOV BURROWS ([id number]) 1970 M Date Time Provider Department 04/30/22 PRISCILA CLARKE During your visit today, we recorded the following information about you: Priscila Clarke MD 04/30/2022 4:15 PM Signed Spoke with patient. Discussed plan for care with Dr. Nicolasa Denise. Feels that the patient will likely need exploration and HIPAC. His office will contact him and try to get him seen this week. 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 - ferrous sulfate 325 mg (65 mg iron) tablet Take 1 tablet by mouth daily with breakfast. - docusate sodium (COLACE) 100 mg capsule Take 1 capsule by mouth twice daily as needed for constipation. - buPROPion SR (WELLBUTRIN SR) 150 mg 12 hr tablet Take 1 tablet by mouth twice daily. - sertraline (ZOLOFT) 100 mg tablet Take 1.5 tablets by mouth once daily. - CPAP Continue Auto PAP @ 5-20 cm of water with humidification. Mask (per patient preference) optional chin strap (if indicated) , filters, tubing, humidifier and lifetime supplies. AMBROES G47.33 - multivitamin tablet Take 1 tablet by mouth once daily. Problem List As Of Date 04/30/2022 Noted Resolved Obstructive sleep apnea syndrome [G47.33] 02/18/2006 Abnormal weight gain [R63.5] 02/18/2006 01/25/2015 MALAISE AND FATIGUE NEC [R53.81, R53.83] 02/18/2006 ANXIETY STATE NOS [F41.1] 02/18/2006 Hypercholesteremia <130 [E78.00] 02/18/2006 OVERWEIGHT [E66.9] 02/18/2006 01/25/2015 DEPRESSIVE DISORDER NEC [F32.89] 02/20/2008 Cellulitis and abscess of unspecified site [L03*07/04/2009 01/25/2015 Non-healing surgical wound [T81.89XA] 07/06/2009 01/25/2015 Other adjustment reaction with predominant dist*01/17/2011 01/25/2015 Non morbid obesity due to excess calories [E66.*02/07/2017 Encounter Status:Closed by PRISCILA CLARKE on 04/30/22 [facility] COLONOSCOPY DIAGNOSTICon [facility] EGD DIAGNOSTICon 04-26-2022 [facility] CT BIOPSY ABD/RETROPERIT MAS Son 2022 CT BIOPSY ABD/RETROPERIT MASS * * *Final Report* * * DATE OF EXAM: 2022 12:07PM [facility] 2019 - [address] BIOPSY ABD/RETROPERIT MASS / PROCEDURE REASON: New Patient * * * * Physician Interpretation * * * * PROCEDURE PERFORMED: CT GUIDED PERITONEAL BIOPSY ON 2022 INDICATION FOR PROCEDURE: 52 years old Male with Anemia, unspecified type. Upper abdominal mass Intra-abdominal and pelvic swelling, mass and lump, unspecified site STAFF RADIOLOGIST: Dr. Agus Kohler CONSENT: The risks, benefits, treatment options, potential complications and personnel involved were discussed with the patient. All questions were answered and consent was obtained. The patient indicated he was willing to proceed. The staff physician personally verified consent. TIME OUT: A time out was performed immediately prior to procedure start with the nursing and interventional team, correctly identifying the patient name, date of , procedure, anatomy (including marking of site and side), patient position, procedure consent form, relevant diagnostic and radiology test results, antibiotic administration (when indicated), safety precautions, and procedure-specific equipment needs. RESULT: PROCEDURE: After performing the time out, the peritoneal carcinomatosis anterior mid abdomen was localized under CT. Anterior mid abdomen was prepped and draped in the usual sterile fashion. Under direct CT guidance, a 18 gauge trochar needle was advanced to the peritoneal carcinomatosis. Through the trochar, 5 passes were made into the carcinomatosis using an 18 core biopsy needle. After specimens were obtained, needle was removed and hemostasis was achieved using light manual compression. Next, a 5 Serbian Yueh catheter was advanced into the low attenuating areas in the RIGHT abdomen for paracentesis, however no fluid could be aspirated. Ultrasound was then used to evaluate for fluid which demonstrated diffuse soft tissue/peritoneal carcinomatosis throughout all 4 quadrants. No drainable fluid visualized. The patient was transferred to the biopsy recovery room in stable condition. ANESTHESIA/SEDATION: None. Local anesthesia was achieved utilizing volume in cc mL 1% lidocaine. START TIME/TIMEOUT TIME: 1108 END TIME: 1120 INTRA-SERVICE (SEDATION) TIME: N/A PATIENT MONITORING: The staff physician personally supervised and directed an independent trained observer who assisted in monitoring the patient?s level of consciousness and physiological status throughout the procedure. COMPLICATIONS: No immediate complications. SIGN-OUT DISCUSSION: Completed ESTIMATED BLOOD LOSS: None CONTRAST: None CT ABDOMEN AND PELVIS RADIATION DOSE: Dose-length product (DLP) = 482 mGy*cm. CT Dose Reduction Employed: Iterative recon and mAs-kVp adjusted using patient size-age SPECIMENS: 5 core biopsy specimens were placed in formalin and sent for surgical pathology. BIOPSY DEVICE: 18 gauge CorVoSendiot core biopsy needle. IMPRESSION: CT guided peritoneal biopsy as described. No fluid could be aspirated under CT. Ultrasound was then used to evaluate for fluid which demonstrated diffuse soft tissue/peritoneal carcinomatosis throughout all 4 quadrants. No drainable fluid visualized. Duralumin Mechanic: PSCB Transcribe Date/Time: 2022 2:05P Dictated by : AGUS KOHLER DO This examination was interpreted and the report reviewed and electronically signed by: AGUS KOHLER DO on 2022 2:23PM EST [id number] [facility] HISTORY PHYSICALon HISTORY PHYSICAL HNO ID: [id number] Author: Agus Kohler DO, DO Service: Radiology Author Type: Physician Type: HANDP Filed: 2022 10:48 AM Note Text: PROCEDURAL SEDATION HISTORY AND PHYSICAL EXAM SERVICE DATE: 2022 SERVICE TIME: 10:47 AM Subjective HPI: This is a 52 year old male who presents with peritoneal carcinomatosis PAST ANESTHESIA HISTORY: No history of adverse event PAST MEDICAL HISTORY Diagnosis Date - Anxiety state, unspecified - Other and unspecified hyperlipidemia - Other malaise and fatigue - Unspecified sleep apnea PAST SURGICAL HISTORY Procedure Laterality Date - NONE Prior to Admission medications as of 04/24/22 0914 Medication Sig Last Dose Taking buPROPion SR (WELLBUTRIN SR) 150 mg 12 hr tablet Take 1 tablet by mouth twice daily. 04/23/2022 at 0800 Yes sertraline (ZOLOFT) 100 mg tablet Take 1.5 tablets by mouth once daily. 04/23/2022 at 0800 Yes peg 3350-Electrolytes (GOLYTELY) 236-22.74-6.74 -5.86 gram suspension Refer to printed prep instructions from your provider. Unknown at Unknown time ferrous sulfate 325 mg (65 mg iron) tablet Take 1 tablet by mouth daily with breakfast. 04/19/2022 docusate sodium (COLACE) 100 mg capsule Take 1 capsule by mouth twice daily as needed for constipation. Unknown at Unknown time CPAP Continue Auto PAP @ 5-20 cm of water with humidification. Mask (per patient preference) optional chin strap (if indicated) , filters, tubing, humidifier and lifetime supplies. AMBROSE G47.33 Unknown at Unknown time multivitamin tablet Take 1 tablet by mouth once daily. 04/21/2022 ALLERGIES No Known Allergies Objective PHYSICAL EXAM: The remainder of the physical exam is noncontributory. AIRWAY: Airway Visualization of Uvula: Yes Mouth opening greater than 2 fingerbreadths: Yes Neck Full Range of Motion: Yes LUNGS: Lungs clear to auscultation CARDIAC: Regular rhythm,Regular rate Assessment/Plan ASA Class: ASA Class:: Patient with mild systemic disease Active Problems: * No active hospital problems. * Resolved Problems: * No resolved hospital problems. * Provisional Diagnosis/Treatment Plan: CT guided peritoneal biopsy and paracentesis. SEDATION GOAL: Moderate SIGNATURE: Agus Kohler DO PATIENT NAME: Dov Zepeda First DATE: 2022 TIME: 10:47 AM Normal [facility] SURGICAL PATHOLOGYon 022 CASE REPORT Normal [facility] Comment on above: Order Comment: Speci men Type: TISSUE SPECIMEN Ordering Facility: [facility] Address: [address] [place] [id number] Result Comment: Surg ica Pathology Report Case: [id number] Authorizing Provider: Agus Kohler DO, DO Collected: 2022 11:15 AM Ordering Location: [facility] Radiology Received: 2022 12:02 PM Pathologist: Zara Nesbitt MD Specimen: PERITONEUM BIOPSY Performed By: #### S #### [facility] CLIA [id number] [address] [place], [place] [address] CLIA [id number] [address] CLINICAL HISTORY Peritoneal carcinomatosis Normal [facility] Comment on above: Order Comment: Speci men Type: TISSUE SPECIMEN Ordering Facility: [facility] Address: [address] [place] [address] Performed By: #### S #### [facility] CLIA [id number] [address] [place] [address] LABORATORY CLIA [id number] [address] DIAGNOSIS COMMENT Normal [facility] Comment on above: Order Comment: Speci men Type: TISSUE SPECIMEN Ordering Facility: [facility] Address: [address] [place] [address] Result Comment: The biopsy consists predominantly of peritoneal fibrous tissue, but is notable for focal acellular mucin. While the specimen lacks overt carcinoma, resampling may be necessary to further characterize the mucin and its source. An immunohistochemical stain for AE1/3 highlights a very limited low cuboidal non-mucinous cell layer suggestive of mesothelium, although the possibility of low grade epithelium cannot be completely excluded. Dr. Diane Moore (GI and Hepatobiliary Pathology) has reviewed this case and agrees. Laboratory Developed Test (LDT) Disclaimer: Performance characteristics of immunohistochemical, immunofluorescent and chromogenic in-situ hybridization tests have been determined by the performing laboratory within [facility]???s [facility] [place] ([facility], [facility], [facility] or [facility]) in a manner consistent with CLIA requirements. One or more of these tests have not been cleared or approved by the FDA. [facility] is regulated under CLIA as qualified to perform high-complexity testing. These tests are used for clinical purposes. They should not be regarded as investigational or for research. Positive and negative controls stain appropriately. Performed By: #### S #### [facility] CLIA [id number] [address] [place], [place] [address] CLIA [id number] [address] FINAL DIAGNOSIS [facility] Comment on above: Order Comment: Speci men Type: TISSUE SPECIMEN Ordering Facility: [facility] Address: [address] [place] [address] Result Comment: Radha toneum, biopsy: - Focal acellular mucin; see comment. Performed By: #### S #### [facility] CLIA [id number] [address] [place] [address] [facility] CLIA [id number] [address] FINAL PERFORMING LAB [facility] Comment on above: Order Comment: Speci men Type: TISSUE SPECIMEN Ordering Facility: [facility] Address: [address] [place] [address] Result Comment: Diag nostic interpretation performed at [facility], [address] [place] [address] CLIA# [id number] Registered Nurse Cardiac Telemetry: Dung Graff M.D. Performed By: #### S #### [facility] CLIA [id number] [address] [place] [address] [facility] CLIA [id number] [address] GROSS DESCRIPTION [facility] Comment on above: Order Comment: Speci men Type: TISSUE SPECIMEN Ordering Facility: [facility] Address: [address] [place] [address] Result Comment: A. P ERITONEUM BIOPSY. Received in formalin are multiple sarmiento-red, soft feathery segments of tissue aggregating to 1.0 x 0.1 x 0.1 cm. Totally submitted in one cassette. JTS 2022 4:02 PM Gross examination performed at [facility], [address] [place] [address] Performed By: #### S #### [facility] CLIA [id number] [address] [place] [address] [place] [address] [place] [facility] CLIA [id number] [address] [place] [address] [place] US ASCITES SURVEYon 04-24-20 22 US ASCITES SURVEY * * *Final Report* * * DATE OF EXAM: 2022 11:41AM MARGIE 1016 - ASCITES SURVEY / PROCEDURE REASON: New Patient * * * * Physician Interpretation * * * * PROCEDURE PERFORMED: CT GUIDED PERITONEAL BIOPSY ON 2022 INDICATION FOR PROCEDURE: 52 years old Male with Anemia, unspecified type. Upper abdominal mass Intra-abdominal and pelvic swelling, mass and lump, unspecified site STAFF RADIOLOGIST: Dr. Agus Kohler CONSENT: The risks, benefits, treatment options, potential complications and personnel involved were discussed with the patient. All questions were answered and consent was obtained. The patient indicated he was willing to proceed. The staff physician personally verified consent. TIME OUT: A time out was performed immediately prior to procedure start with the nursing and interventional team, correctly identifying the patient name, date of , procedure, anatomy (including marking of site and side), patient position, procedure consent form, relevant diagnostic and radiology test results, antibiotic administration (when indicated), safety precautions, and procedure-specific equipment needs. RESULT: PROCEDURE: After performing the time out, the peritoneal carcinomatosis anterior mid abdomen was localized under CT. Anterior mid abdomen was prepped and draped in the usual sterile fashion. Under direct CT guidance, a 18 gauge trochar needle was advanced to the peritoneal carcinomatosis. Through the trochar, 5 passes were made into the carcinomatosis using an 18 core biopsy needle. After specimens were obtained, needle was removed and hemostasis was achieved using light manual compression. Next, a 5 Serbian Yueh catheter was advanced into the low attenuating areas in the RIGHT abdomen for paracentesis, however no fluid could be aspirated. Ultrasound was then used to evaluate for fluid which demonstrated diffuse soft tissue/peritoneal carcinomatosis throughout all 4 quadrants. No drainable fluid visualized. The patient was transferred to the biopsy recovery room in stable condition. ANESTHESIA/SEDATION: None. Local anesthesia was achieved utilizing volume in cc mL 1% lidocaine. START TIME/TIMEOUT TIME: 1108 END TIME: 1120 INTRA-SERVICE (SEDATION) TIME: N/A PATIENT MONITORING: The staff physician personally supervised and directed an independent trained observer who assisted in monitoring the patient?s level of consciousness and physiological status throughout the procedure. COMPLICATIONS: No immediate complications. SIGN-OUT DISCUSSION: Completed ESTIMATED BLOOD LOSS: None CONTRAST: None CT ABDOMEN AND PELVIS RADIATION DOSE: Dose-length product (DLP) = 482 mGy*cm. CT Dose Reduction Employed: Iterative recon and mAs-kVp adjusted using patient size-age SPECIMENS: 5 core biopsy specimens were placed in formalin and sent for surgical pathology. BIOPSY DEVICE: 18 gauge CorVocet core biopsy needle. IMPRESSION: CT guided peritoneal biopsy as described. No fluid could be aspirated under CT. Ultrasound was then used to evaluate for fluid which demonstrated diffuse soft tissue/peritoneal carcinomatosis throughout all 4 quadrants. No drainable fluid visualized. Duralumin Mechanic: PSCB Transcribe Date/Time: 2022 2:05P Dictated by : AGUS KOHLER DO This examination was interpreted and the report reviewed and electronically signed by: AGUS KOHLER DO on 2022 2:23PM EST [id number] [facility] CT ABD/PEL W IVCONon 022 [facility] Vital Signs Date Time Vital Sign Value Performing Clinician Faci reynold 01-15-2025 23:23-0400 Body temperature 98 [degF] Dr. Harjeet Bernard MD Work Phone: [facility] 01-15-2025 23:23-0400 Diastolic blood pressure 70 mm[Hg] Dr. Harjeet Bernard MD Work Phone: [facility] 01-15-2025 23:23-0400 Heart rate 75 /min Dr. Harjeet Bernard MD Work Phone: [facility] 01-15-2025 23:23-0400 Respiratory rate 18 /min Dr. Harjeet Bernard MD Work Phone: [facility] 01-15-2025 23:23-0400 SaO2% (BldA) [Mass fraction] 97 % Dr. Harjeet Bernard MD Work Phone: [facility] 01-15-2025 23:23-0400 Systolic blood pressure 107 mm[Hg] Dr. Harjeet Bernard MD Work Phone: [facility] 01-15-2025 19:26-0400 Body height 185.[address] Harjeet Bernard MD Work Phone: [facility] 01-15-2025 19:26-0400 Body mass index (BMI) [Ratio] 26 kg/m2 Dr. Harjeet Bernard MD Work Phone: [facility] 01-15-2025 19:26-0400 Body weight 89.[address] Harjeet Bernard MD Work Phone: [facility] 12-21-2024 15:17-0400 Body mass index (BMI) [Ratio] 27.02 kg/m2 Harjeet Bernard MD Work Phone: [facility] 12-21-2024 15:17-0400 Body weight 92.9 kg Harjeet Bernard MD Work Phone: [facility] 12-21-2024 15:17-0400 Diastolic blood pressure 75 mm[Hg] Harjeet Bernard MD Work Phone: [facility] 12-21-2024 15:17-0400 Heart rate 103 /min Harjeet Bernard MD Work Phone: [facility] 12-21-2024 15:17-0400 Respiratory rate 16 /min Harjeet Bernard MD Work Phone: [facility] 12-21-2024 15:17-0400 SaO2% (BldA) [Mass fraction] 97 % Harjeet Bernard MD Work Phone: [facility] 12-21-2024 15:17-0400 Systolic blood pressure 104 mm[Hg] Harjeet Bernard MD Work Phone: [facility] 12-16-2024 13:06-0400 Body temperature 98.2 [degF] Dr. Harjeet Bernard MD Work Phone: [facility] 12-16-2024 13:06-0400 Diastolic blood pressure 77 mm[Hg] Dr. Harjeet Bernard MD Work Phone: 0(898)698-134869 [place] [address] 12-16-2024 13:06-0400 Heart rate 80 /min Dr. Harjeet Bernard MD Work Phone: 4(997)433-819385 [place] [address] 12-16-2024 13:06-0400 Respiratory rate 18 /min Dr. Harjeet Bernard MD Work Phone: 3(089)268-553485 [place] [address] 12-16-2024 13:06-0400 SaO2% (BldA) [Mass fraction] 100 % Dr. Harjeet Bernard MD Work Phone: 6(882)615-881585 [place] [address] 12-16-2024 13:06-0400 Systolic blood pressure 104 mm[Hg] Dr. Harjeet Bernard MD Work Phone: 0(600)123-564685 [place] [address] 12-15-2024 11:22-0400 Body height 185.[address] Harjeet Bernard MD Work Phone: 9(847)927-936585 [place] [address] 12-15-2024 11:22-0400 Body mass index (BMI) [Ratio] 26.9 kg/m2 Dr. Harjeet Bernard MD Work Phone: 2(978)967-677385 [place] [address] 12-15-2024 11:22-0400 Body weight 92.[address] Harjeet Bernard MD Work Phone: 6(288)182-052585 [place] [address] 12-15-2024 10:11-0400 Diastolic blood pressure 76 mm[Hg] Dr. Harjeet Bernard MD Work Phone: 0(231)102-191085 [place] [address] 12-15-2024 10:11-0400 Heart rate 89 /min Dr. Harjeet Bernard MD Work Phone: 7(467)558-301285 [place] [address] 12-15-2024 10:11-0400 Respiratory rate 14 /min Dr. Harjeet Bernard MD Work Phone: 5(954)859-945885 [place] [address] 12-15-2024 10:11-0400 SaO2% (BldA) [Mass fraction] 98 % Dr. Harjeet Bernard MD Work Phone: 9(700)190-762885 [place] [address] 12-15-2024 10:11-0400 Systolic blood pressure 126 mm[Hg] Dr. Harjeet Bernard MD Work Phone: [facility] 12-15-2024 09:48-0400 Body temperature 98.7 [degF] Dr. Harjeet Bernard MD Work Phone: [facility] 12-15-2024 08:11-0400 Body height 185.[address] Harjeet Bernard MD Work Phone: [facility] 12-15-2024 08:11-0400 Body mass index (BMI) [Ratio] 26.9 kg/m2 Dr. Harjeet Bernard MD Work Phone: [facility] 12-15-2024 08:11-0400 Body weight 92.[address] Harjeet Bernard MD Work Phone: [facility] 12-04-2024 10:53-0500 Body mass index (BMI) [Ratio] 27.63 kg/m2 Julissa Ugarte DIRECTOR [employer] Work Phone: [facility] 12-04-2024 10:53-0500 Body weight 95 kg Julissa Ugarte DIRECTOR [employer] Work Phone: [facility] 12-04-2024 10:53-0500 Diastolic blood pressure 71 mm[Hg] Julissa Ugarte DIRECTOR [employer] Work Phone: [facility] 12-04-2024 10:53-0500 Heart rate 73 /min Julissa Ugarte DIRECTOR [employer] Work Phone: [facility] 12-04-2024 10:53-0500 Respiratory rate 16 /min Julissa Ugarte DIRECTOR [employer] Work Phone: [facility] 12-04-2024 10:53-0500 Systolic blood pressure 106 mm[Hg] Julissa Ugarte DIRECTOR [employer] Work Phone: [facility] 11-29-2024 15:09-0500 Body temperature 98.9 [degF] Dr. Harjeet Bernard MD Work Phone: [facility] 11-29-2024 15:09-0500 Diastolic blood pressure 75 mm[Hg] Dr. Harjeet Bernard MD Work Phone: [facility] 11-29-2024 15:09-0500 Heart rate 84 /min Dr. Harjeet Bernard MD Work Phone: [facility] 11-29-2024 15:09-0500 Respiratory rate 16 /min Dr. Harjeet Bernard MD Work Phone: [facility] 11-29-2024 15:09-0500 SaO2% (BldA) [Mass fraction] 95 % Dr. Harjeet Bernard MD Work Phone: [facility] 11-29-2024 15:09-0500 Systolic blood pressure 115 mm[Hg] Dr. Harjeet Bernard MD Work Phone: [facility] 11-27-2024 14:28-0500 Body weight 91.[address] Harjeet Bernard MD Work Phone: [facility] 11-26-2024 19:49-0500 Body mass index (BMI) [Ratio] 26.7 kg/m2 Dr. Harjeet Bernard MD Work Phone: [facility] 06-15-2024 10:55-0400 Body height 185.4 cm Nicolasa Denise DO Work Phone: [facility] 06-15-2024 10:55-0400 Body mass index (BMI) [Ratio] 29.29 kg/m2 Nicolasa Denise DO Work Phone: [facility] 06-15-2024 10:55-0400 Body weight 100.7 kg Nicolasa Denise DO Work Phone: [facility] 05-15-2024 11:11-0400 Body mass index (BMI) [Ratio] 30.71 kg/m2 Harjeet Bernard MD Work Phone: [facility] 05-15-2024 11:11-0400 Body temperature 97.11 [degF] Harjeet Bernard MD Work Phone: [facility] 05-15-2024 11:11-0400 Body weight 105.6 kg Harjeet Bernard MD Work Phone: [facility] 05-15-2024 11:11-0400 Diastolic blood pressure 62 mm[Hg] Harjeet Bernard MD Work Phone: [facility] 05-15-2024 11:11-0400 Heart rate 71 /min Harjeet Bernard MD Work Phone: [facility] 05-15-2024 11:11-0400 Respiratory rate 16 /min Harjeet Bernard MD Work Phone: [facility] 05-15-2024 11:11-0400 SaO2% (BldA) [Mass fraction] 99 % Harjeet Bernard MD Work Phone: [facility] 05-15-2024 11:11-0400 Systolic blood pressure 102 mm[Hg] Harjeet Bernard MD Work Phone: [facility] 04-05-2023 09:20-0400 Body temperature 98.6 [degF] Harjeet Bernard MD Work Phone: [facility] 04-05-2023 09:20-0400 Body weight 108.41 kg Harjeet Bernard MD Work Phone: [facility] 04-05-2023 09:20-0400 Diastolic blood pressure 84 mm[Hg] Harjeet Bernard MD Work Phone: [facility] 04-05-2023 09:20-0400 Heart rate 75 /min Harjeet Bernard MD Work Phone: [facility] 04-05-2023 09:20-0400 Respiratory rate 18 /min Harjeet Bernard MD Work Phone: [facility] 04-05-2023 09:20-0400 SaO2% (BldA) [Mass fraction] 96 % Harjeet Bernard MD Work Phone: [facility] 04-05-2023 09:20-0400 Systolic blood pressure 118 mm[Hg] Harjeet Bernard MD Work Phone: [facility] 01-09-2023 15:48-0400 Body weight 101.61 kg Beckie Eaton DO Work Phone: [facility] 01-09-2023 15:48-0400 Diastolic blood pressure 71 mm[Hg] Beckie Eaton DO Work Phone: [facility] 01-09-2023 15:48-0400 Heart rate 71 /min Beckie Eaton DO Work Phone: [facility] 01-09-2023 15:48-0400 SaO2% (BldA) [Mass fraction] 97 % Beckie Eaton DO Work Phone: [facility] 01-09-2023 15:48-0400 Systolic blood pressure 115 mm[Hg] Beckie Eaton DO Work Phone: [facility] 11-05-2022 10:19-0500 Body height 185.4 cm Nicolasa Denise DO Work Phone: [facility] 11-05-2022 10:19-0500 Body weight 97.98 kg Nicolasa Howie DO Work Phone: [facility] 10-15-2022 16:50-0500 Body temperature 97.5 [degF] Harjeet Bernard MD Work Phone: [facility] 10-15-2022 16:50-0500 Body weight 95.71 kg Harjeet Bernard MD Work Phone: [facility] 10-15-2022 16:50-0500 Diastolic blood pressure 82 mm[Hg] Harjeet Bernard MD Work Phone: [facility] 10-15-2022 16:50-0500 Heart rate 81 /min Harjeet Bernard MD Work Phone: [facility] 10-15-2022 16:50-0500 Respiratory rate 18 /min Harjeet Bernard MD Work Phone: [facility] 10-15-2022 16:50-0500 SaO2% (BldA) [Mass fraction] 97 % Harjeet Bernard MD Work Phone: [facility] 10-15-2022 16:50-0500 Systolic blood pressure 120 mm[Hg] Harjeet Bernard MD Work Phone: [facility] 09-28-2022 10:16-0500 Body height 185.4 cm Monroe Maloney MD Work Phone: [facility] 09-28-2022 10:16-0500 Body weight 95.35 kg Monroe Maloney MD Work Phone: [facility] 09-28-2022 10:16-0500 Diastolic blood pressure 62 mm[Hg] Monroe Maloney MD Work Phone: [facility] 09-28-2022 10:16-0500 Heart rate 81 /min Monroe Maloney MD Work Phone: [facility] 09-28-2022 10:16-0500 Systolic blood pressure 107 mm[Hg] Monroe Maloney MD Work Phone: [facility] 09-14-2022 09:13-0500 Body height 185.4 cm Nicolasa Denise DO Work Phone: [facility] 09-14-2022 09:13-0500 Body weight 93.26 kg Nicolasa Denise DO Work Phone: [facility] 08-27-2022 09:31-0500 Body height 185.4 cm Nicolasa Howie DO Work Phone: [facility] 08-27-2022 09:31-0500 Body weight 91.17 kg Nicolasa Howie DO Work Phone: [facility] 07-30-2022 09:58-0400 Body height 185.4 cm Nicolasa Howie DO Work Phone: [facility] 07-30-2022 09:58-0400 Body weight 80.74 kg Nicolasa Howie DO Work Phone: [facility] 07-19-2022 14:00-0400 Heart rate 82 /min Hannah Mcnair MD Work Phone: [facility] 07-19-2022 14:00-0400 Respiratory rate 16 /min Hannah Mcnair MD Work Phone: [facility] 07-19-2022 14:00-0400 SaO2% (BldA) [Mass fraction] 97 % Hannah Mcnair MD Work Phone: [facility] 07-19-2022 13:50-0400 Diastolic blood pressure 66 mm[Hg] Hannah Mcnair MD Work Phone: [facility] 07-19-2022 13:50-0400 Systolic blood pressure 103 mm[Hg] Hannah Mcnair MD Work Phone: [facility] 07-19-2022 13:27-0400 Body temperature 97.2 [degF] Hannah Mcnair MD Work Phone: [facility] 07-19-2022 12:28-0400 Body height 185.4 cm Hannah Mcnair MD Work Phone: [facility] 07-19-2022 12:28-0400 Body weight 78.47 kg Hannah Mcnair MD Work Phone: [facility] 07-09-2022 08:06-0400 Body height 185.4 cm Nicolasa Denise DO Work Phone: [facility] 07-09-2022 08:06-0400 Body weight 78.74 kg Nicolasa Denise DO Work Phone: [facility] 05-11-2022 09:06-0400 Body height 185.4 cm Pacc 7 Work Phone: [facility] 05-11-2022 09:06-0400 Body temperature 97 [degF] Pacc 7 Work Phone: [facility] 05-11-2022 09:06-0400 Body weight 104.78 kg Pacc 7 Work Phone: [facility] 05-11-2022 09:06-0400 Diastolic blood pressure 76 mm[Hg] Pac 7 Work Phone: [facility] 05-11-2022 09:06-0400 Heart rate 80 /min Pac 7 Work Phone: [facility] 05-11-2022 09:06-0400 SaO2% (BldA) [Mass fraction] 99 % Pac 7 Work Phone: [facility] 05-11-2022 09:06-0400 Systolic blood pressure 134 mm[Hg] Pac 7 Work Phone: [facility] 05-04-2022 09:46-0400 Body height 185.4 cm Nicolasa Denise DO Work Phone: [facility] 05-04-2022 09:46-0400 Body temperature 98.1 [degF] Nicolasa Denise DO Work Phone: [facility] 05-04-2022 09:46-0400 Body weight 103.78 kg Nicolasa Denise DO Work Phone: [facility] 05-04-2022 09:46-0400 Diastolic blood pressure 79 mm[Hg] Nicolasa Denise DO Work Phone: [facility] 05-04-2022 09:46-0400 Heart rate 86 /min Nicolasa Denise DO Work Phone: [facility] 05-04-2022 09:46-0400 Respiratory rate 20 /min Nicolasa Guilloryente DO Work Phone: [facility] 05-04-2022 09:46-0400 SaO2% (BldA) [Mass fraction] 100 % Nicolasa Denise DO Work Phone: [facility] 05-04-2022 09:46-0400 Systolic blood pressure 138 mm[Hg] Nicolasa Denise DO Work Phone: [facility] 05-03-2022 10:19-0400 Body temperature 98.2 [degF] Andre Parnell DO Work Phone: [facility] 05-03-2022 10:19-0400 Body weight 103.87 kg Andre Masci DO Work Phone: [facility] 05-03-2022 10:19-0400 Diastolic blood pressure 76 mm[Hg] Andre Masci DO Work Phone: [facility] 05-03-2022 10:19-0400 Heart rate 80 /min Andre Masci DO Work Phone: [facility] 05-03-2022 10:19-0400 SaO2% (BldA) [Mass fraction] 98 % Andre Masci DO Work Phone: [facility] 05-03-2022 10:19-0400 Systolic blood pressure 119 mm[Hg] Andre Masci DO Work Phone: [facility] 05-02-2022 14:53-0400 Body height 185.4 cm Priscila Clarke MD Work Phone: [facility] 05-02-2022 14:53-0400 Body temperature 98.4 [degF] Priscila Clarke MD Work Phone: [facility] 05-02-2022 14:53-0400 Body weight 102.97 kg Priscila Clarke MD Work Phone: [facility] 05-02-2022 14:53-0400 Diastolic blood pressure 62 mm[Hg] Priscila Clarke MD Work Phone: [facility] 05-02-2022 14:53-0400 Heart rate 99 /min Priscila Clarke MD Work Phone: [facility] 05-02-2022 14:53-0400 SaO2% (BldA) [Mass fraction] 96 % Priscila Clarke MD Work Phone: [facility] 05-02-2022 14:53-0400 Systolic blood pressure 110 mm[Hg] Priscila Clarke MD Work Phone: [facility] 04-26-2022 09:40-0400 Diastolic blood pressure 82 mm[Hg] Priscila Clarke MD Work Phone: [facility] 04-26-2022 09:40-0400 Heart rate 80 /min Priscila Clarke MD Work Phone: [facility] 04-26-2022 09:40-0400 Respiratory rate 16 /min Priscila Clarke MD Work Phone: [facility] 04-26-2022 09:40-0400 SaO2% (BldA) [Mass fraction] 98 % Priscila Clarke MD Work Phone: [facility] 04-26-2022 09:40-0400 Systolic blood pressure 122 mm[Hg] Priscila Clarke MD Work Phone: [facility] 04-26-2022 07:50-0400 Body temperature 97.2 [degF] Priscila Clarke MD Work Phone: [facility] 03-02-2022 07:24-0400 Body weight 105.23 kg Julissa Ugarte DIRECTOR [employer] Work Phone: [facility] 03-02-2022 07:24-0400 Diastolic blood pressure 70 mm[Hg] Julissa Ugarte DIRECTOR [employer] Work Phone: [facility] 03-02-2022 07:24-0400 Heart rate 76 /min Julissa Ugarte DIRECTOR [employer] Work Phone: [facility] 03-02-2022 07:24-0400 Respiratory rate 16 /min Julissa Ugarte DIRECTOR [employer] Work Phone: [facility] 03-02-2022 07:24-0400 Systolic blood pressure 120 mm[Hg] Julissa Ugarte DIRECTOR [employer] Work Phone: [facility] Encounters Encounter Date Encounter Type Care Provider Facility Start: 03-22-2025 End: 03-22-2025 ambulatory HARJEET D TALAMPAS Facility:[facility] Start: 03-08-2025 End: 03-08-2025 ambulatory HARJEET D TALAMPAS Facility:[facility] Start: 02-23-2025 End: 02-23-2025 ambulatory HARJEET D TALAMPAS Facility:[facility] Start: 02-08-2025 End: 02-08-2025 ambulatory HARJEET D TALAMPAS Facility:[facility] Start: 02-03-2025 End: 02-03-2025 Telephone encounter Nicolasa Denise DO Work Phone: Colorectal Surgery Comment on above: Patient Update Start: 02-01-2025 End: 02-01-2025 ambulatory HARJEET D TALAMPAS Facility:[facility] Start: 01-27-2025 End: 01-27-2025 Telephone encounter Nicolasa Denise DO Work Phone: Colorectal Surgery Start: 01-25-2025 End: 01-25-2025 ambulatory HARJEET D TALAMPAS Facility:[facility] Start: 01-18-2025 End: 01-18-2025 ambulatory HARJEET D TALAMPAS Facility:[facility] Start: 01-18-2025 End: 01-18-2025 Telephone encounter Nicolasa Denise DO Work Phone: Colorectal Surgery Start: 01-15-2025 End: 01-15-2025 Emergency department patient visit Dr. Harjeet Bernard MD Work Phone: -Emergency Department Work Phone: Start: 01-15-2025 End: 01-15-2025 Telephone encounter Nicolsaa Denise DO Work Phone: Colorectal Surgery Start: 01-14-2025 End: 01-14-2025 Telephone encounter Nicolasa Denise DO Work Phone: Colorectal Surgery Comment on above: Patient Update Start: 01-13-2025 End: 01-13-2025 Admission to same day surgery center Nicolasa Denise DO Work Phone: Colorectal Surgery Comment on above: Update to the video chat we had on December 28 Start: 01-13-2025 End: 01-13-2025 ambulatory Nicolasa Denise DO Work Phone: Colorectal Surgery Start: 01-11-2025 End: 01-11-2025 ambulatory HARJEET D TALAMPAS Facility:[facility] Start: 01-04-2025 End: 01-04-2025 ambulatory HARJEET D TALAMPAS Facility:[facility] Start: 12-28-2024 End: 12-28-2024 Admission to same day surgery center Nicolasa Denise Work Phone: Colorectal Surgery Comment on above: 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); 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); Portal vein thrombosis Start: 12-28-2024 End: 12-28-2024 Telemedicine consultation with patient Nicolasa Denise Work Phone: Colorectal Surgery Start: 12-28-2024 End: 12-28-2024 ambulatory HARJEET D TALAMPAS Facility:[facility] Start: 12-21-2024 End: 12-21-2024 ambulatory HARJEET D TALAMPLOAN Facility:[facility] Start: 12-21-2024 End: 12-21-2024 ambulatory HARJEET D TALAMPAS Facility:[facility] Start: 12-21-2024 End: 12-21-2024 Office outpatient visit 40 minutes Harjeet Bernard MD Work Phone: Internal Medicine [place] Comment on above: [place] (acute kidney in jury) (HCC) (Primary Dx); Acute renal insufficiency; Excessive gas; 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 Azul Perera MD -[facility] [facility] Work Phone: Start: 12-15-2024 Non-patient / Non-visit Dr. Celeste Jc DO -[facility] [facility] Work Phone: Start: 12-15-2024 End: 12-16-2024 ambulatory Harjeet D Talampas Facility:[facility] Start: 12-15-2024 End: 12-16-2024 Evaluation and management of inpatient Dr. Mk Jc DO -Medical Surgical 3 Work Phone: Start: 12-15-2024 End: 12-16-[address] Harjeet Bernard MD Work Phone: [facility] Work Phone: Start: 12-14-2024 End: 12-14-2024 Admission to same day surgery center Nicolasa Denise DO Work Phone: Colorectal Surgery Comment on above: Dov Garcia dration Question Start: 12-14-2024 End: 12-14-2024 ambulatory Nicolasa Denise DO Work Phone: Colorectal Surgery Start: 12-14-2024 End: 12-14-2024 Follow-up encounter Julissa Ugarte APRN.[employer] Work Phone: Internal Medicine [place] Start: 12-14-2024 End: 12-14-2024 Telephone encounter Julissa Ugarte APRN.[employer] Work Phone: Internal Medicine [place] Comment on above: Results Start: 12-12-2024 End: 12-14-2024 Telephone encounter Derek Ulloa DO Work Phone: [facility] Start: 12-12-2024 End: 12-12-2024 ambulatory HARJEET BERNARD Facility:[facility] Start: 12-11-2024 End: 12-11-2024 ambulatory HARJEET BERNARD Facility:[facility] Start: 12-07-2024 End: 12-14-2024 ambulatory Julissa Ugarte APRN.[employer] Work Phone: Internal Medicine [place] Comment on above: Results Start: 12-07-2024 End: 12-14-2024 E-mail encounter from caregiver Julissa Ugarte APRN.[employer] Work Phone: Internal Medicine [place] Start: 12-07-2024 End: 02-06-2025 Follow-up encounter Julissa Ugarte APRN.[employer] Work Phone: Internal Medicine [place] Start: 12-04-2024 End: 12-04-2024 ambulatory HARJEET BERNARD Facility:[facility] Start: 12-04-2024 End: 12-04-2024 Patient encounter procedure Julissa Ugarte DIRECTOR [employer] Work Phone: Internal Medicine [place] Comment on above: Nausea vomiting and diarrhea (Primary Dx); Hypokalemia; [place] (acute kidney injury) (HCC); Special screening examination for viral disease; Screening for HIV (human immunodeficiency virus) Start: 11-30-2024 End: 11-30-2024 ambulatory Harjeet Bernard MD Work Phone: Internal Medicine [place] Comment on above: Hospital F/U Start: 11-29-2024 Non-patient / Non-visit Dr. Sara Quezada [facility] Work Phone: Start: 11-28-2024 Non-patient / Non-visit Dr. Sara Quezada DO [facility] Work Phone: Start: 11-27-2024 Non-patient / Non-visit Dr. Sara Quezada [facility] Work Phone: Start: 11-27-2024 ambulatory Ibrahima Doan Facility:[facility] Start: 11-27-2024 End: 11-29-2024 Evaluation and management of inpatient Dr. Sara Quezada DO [facility] 3 Work Phone: Start: 11-26-2024 Non-patient / Non-visit Dr. Ibrahima sweet [facility] Work Phone: Start: 11-26-2024 ambulatory Ibrahimamignon Doan Facility:[facility] Start: 11-04-2024 End: 11-17-2024 Refill Nicolasa Denise DO Work Phone: Colorectal Surgery Comment on above: Refill Request Start: 09-21-2024 End: 09-21-2024 Admission to same day surgery center Nicolasa Denise DO Work Phone: Colorectal Surgery Comment on above: [address] Start: 09-21-2024 End: 09-21-2024 ambulatory Nicolasa Denise DO Work Phone: Colorectal Surgery Start: 09-21-2024 End: 09-21-2024 Telephone encounter Nicolasa Denise DO Work Phone: Colorectal Surgery Comment on above: Patient Update Start: 07-13-2024 End: 07-13-2024 Admission to same day surgery center Nicolasa Serrano Howie FARIAS Work Phone: Colorectal Surgery Comment on above: 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); 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); Mass of appendix Start: 07-13-2024 End: 07-13-2024 Telemedicine consultation with patient Nicolasa Serrano Howie [place] Phone: Colorectal Surgery Start: 07-13-2024 End: 07-13-2024 ambulatory [facility] Facility:[facility] Start: 06-15-2024 End: 06-15-2024 Patient encounter procedure Nicolasa Serrano Howie Irene Phone: Colorectal Surgery Comment on above: 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); 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) Start: 06-15-2024 End: 06-15-2024 ambulatory [facility] Facility:[facility] Start: 06-15-2024 End: 06-15-2024 Nursing evaluation of patient and report [facility] Therapy Work Phone: Colorectal Surgery Comment on above: Attention to ileosto my (HCC) (Primary Dx); Fitting and adjustment of gastrointestinal appliance and device Start: 05-15-2024 End: 05-15-2024 Office outpatient visit 25 minutes Harjeet Bernard MD Work Phone: Internal Medicine [place] Comment on above: Recurrent major depr essive disorder, in partial remission (HCC) (Primary Dx); 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); AMBROSE on CPAP; Hypercholesteremia <130; Elevated glucose; Encounter for long-term current use of medication Start: 05-15-2024 End: 05-15-2024 ambulatory [facility] Facility:[facility] Start: 05-15-2024 End: 05-15-2024 Subsequent hospital visit by physician Ct Prep [facility] Cat Scan Comment on above: 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 [D37.3] Start: 05-07-2024 Telephone encounter Nicolasa Irene Phone: Colorectal Surgery Comment on above: Patient Update Start: 05-04-2024 End: 05-04-2024 Emergency department patient visit Harjeet Bernard Facility:[facility] Start: 04-13-2024 Telephone encounter Nicolasa Denise DO Work Phone: Colorectal Surgery Comment on above: Patient Update Start: 03-23-2024 Refill Harjeet lafleur MD Work Phone: Internal Medicine [place] Comment on above: Refill Request Start: 01-22-2024 End: 01-22-2024 Nursing evaluation of patient and report [facility] Therapy Work Phone: Colorectal Surgery Comment on above: Ileostomy in place ( HCC) (Primary Dx) Start: 01-15-2024 Telephone encounter Stoma Ther apy Work Phone: HOSP STOMA Comment on above: Stoma Consult Start: 11-11-2023 End: 11-11-2023 [facility] Harjeet Bernard MD Work Phone: Internal Medicine [place] Comment on above: Recurrent major depr essive disorder, in partial remission (HCC) (Primary Dx) Start: 06-24-2023 End: 06-24-2023 Nursing evaluation of patient and report Stoma Therapy Work Phone: Colorectal Surgery Comment on above: Ileostomy in place ( HCC) (Primary Dx) Start: 05-17-2023 End: 05-17-2023 Subsequent hospital visit by physician [facility] (I-Stat) Work Phone: Cat Scan Comment on above: Intra-abdominal and pelvic swelling, mass and lump, unspecified site [R19.00] Start: 05-14-2023 Telephone encounter Harjeet lyons MD Work Phone: Internal Medicine [place] Comment on above: CPAP Supplies Start: 04-05-2023 End: 04-05-2023 Office outpatient visit 25 minutes Harjeet Bernard MD Work Phone: Internal Medicine [place] Comment on above: Recurrent major depr essive disorder, in partial remission (HCC) (Primary Dx); AMBROSE on CPAP; 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) Start: 02-12-2023 Refill Julissa Ugarte APRN.[employer] Work Phone: Internal Medicine [place] Comment on above: Refill Request Start: 01-09-2023 End: 01-09-2023 Patient encounter procedure Beckiedandre Eaton DO Work Phone: Vascular Medicine Comment on above: Portal vein thrombos is (Primary Dx); Anticoagulation management encounter; Pseudomyxoma peritonei (HCC) Start: 01-07-2023 End: 01-07-2023 Manual pelvic examination Nicolasa Denise DO Work Phone: Colorectal Surgery Comment on above: Intra-abdominal and pelvic swelling, mass and lump, unspecified site (Primary Dx); Low grade mucinous neoplasm of appendix Start: 01-07-2023 End: 01-07-2023 Telemedicine consultation with patient Nicolasa Denise DO Work Phone: [facility] Start: 12-19-2022 End: 12-19-2022 ambulatory Nicolasa Denise DO Work Phone: Colorectal Surgery Comment on above: 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) Start: 12-19-2022 End: 12-19-2022 Telemedicine consultation with patient Nicolasa Denise DO Work Phone: [facility] Start: 12-17-2022 End: 12-17-2022 ambulatory Nicolasa Denise DO Work Phone: Colorectal Surgery Comment on above: 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) Start: 12-17-2022 End: 12-17-2022 Telemedicine consultation with patient Nicolasa Denise DO Work Phone: [facility] Start: 11-21-2022 Telephone encounter Beckie Cruz DO Work Phone: Vascular Medicine Comment on above: Medication Problem Start: 11-14-2022 Refill Beckiedandre armstrong DO Work Phone: Vascular Medicine Comment on above: Refill Request Start: 11-05-2022 End: 11-05-2022 Patient encounter procedure Nicolasa Denise DO Work Phone: Colorectal Surgery Comment on above: Mass of appendix (Pr imary Dx); Attention to ileostomy (HCC); Gastrocutaneous fistula; Low grade mucinous neoplasm of appendix; Encounter for attention to ileostomy (HCC) Start: 10-19-2022 End: 10-19-2022 ambulatory Jose Waite PA-C Work Phone: General Surgery Comment on above: Gastrocutaneous fist christian (Primary Dx) Start: 10-19-2022 End: 10-19-2022 Telemedicine consultation with patient Jose MIR-Wagner Work Phone: [facility] Start: 10-15-2022 End: 10-15-2022 Office outpatient visit 25 minutes Harjeet Bernard MD Work Phone: Internal Medicine [place] Comment on above: Iron deficiency anem ia, unspecified iron deficiency anemia type (Primary Dx); Recurrent major depressive disorder, in partial remission (HCC); AMBROSE on APAP; 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); Encounter for long-term current use of medication Start: 10-02-2022 Telephone encounter Nicolasa eDnise DO Work Phone: Colorectal Surgery Comment on above: Patient Update Start: 09-28-2022 ambulatory Layla Booth RN Gen eral Surgery Comment on above: 10/10/2022 Start: 09-28-2022 End: 10-02-2022 Patient encounter procedure Monroe Maloney MD Work Phone: General Surgery Comment on above: Gastric leak (Primar y Dx) Start: 09-14-2022 End: 09-14-2022 Patient encounter procedure Nicolasa Denise DO Work Phone: Colorectal Surgery Comment on above: Attention to ileosto my (HCC) (Primary Dx); Gastrocutaneous fistula; Low grade mucinous neoplasm of appendix; Mass of appendix Start: 09-14-2022 End: 09-14-2022 Subsequent hospital visit by physician [facility] Qb1 (I-Stat) Radiology Comment on above: 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 Eaton's schedule change) Start: 08-13-2022 Telephone encounter Nicolasa Denise DO Work Phone: Colorectal Surgery Comment on above: Patient Update Start: 08-01-2022 End: 08-01-2022 Anticoagulant drug monitoring Beckie Eaton DO Work Phone: Vascular Medicine Comment on above: Portal vein thrombos is (Primary Dx); Anticoagulation management encounter; Pseudomyxoma peritonei (HCC) Start: 08-01-2022 End: 08-01-2022 Telemedicine consultation with patient Beckie Irene Phone: [facility] Start: 07-30-2022 E-mail encounter leoncio m caregiver Nicolasa Irene Phone: [facility] Start: 07-30-2022 Follow-up encounter Nicolasa Denise DO [place] Phone: Colorectal Surgery Comment on above: 1 month follow up Start: 07-30-2022 End: 07-30-2022 Nursing evaluation of patient and report Stoma Therapy Work Phone: Colorectal Surgery Comment on above: Encounter for attent ion to ileostomy (HCC) (Primary Dx) Start: 07-30-2022 End: 07-30-2022 Patient encounter procedure Nicolasa Denise DO Work Phone: Colorectal Surgery Comment on above: Attention to ileosto my (HCC) (Primary Dx); Postoperative abscess; Low grade mucinous neoplasm of appendix; Mass of appendix; Malnutrition of mild degree (HCC) Start: 07-26-2022 End: 07-26-2022 ambulatory Silvana Herrera MD Work Phone: Infectious Disease Comment on above: [employer] [place] Intra-abdominal absc ess (HCC) (Primary Dx); Imelda infection; Enterococcal infection; Infection due to Enterobacter cloacae Start: 07-26-2022 End: 07-26-2022 Telemedicine consultation with patient Silvana Herrera MD Work Phone: [facility] Start: 07-25-2022 End: 07-25-2022 ambulatory Silvana Herrera MD Work Phone: Infectious Disease Comment on above: Outside Lab Results (copat) Start: 07-25-2022 End: 07-25-2022 Patient encounter procedure [facility]-Laboratory, Specimen Start: 07-20-2022 ambulatory Graciela cortez RN Work Phone: [employer] Start: 07-20-2022 Follow-up encounter Graciela To lisy RN Work Phone: [employer] Comment on above: Transition Of Care ( TCM follow up [facility] Hospital Discharge 06/28/22) Start: 07-19-2022 End: 07-19-2022 Subsequent hospital visit by physician Hannah Mcnair MD Work Phone: Gastroenterology Comment on above: Bile leak [K83.9] Start: 07-16-2022 End: 07-16-2022 ambulatory Silvana Herrera MD Work Phone: Infectious Disease Comment on above: Outside Lab Results (copat) Start: 07-16-2022 End: 07-16-2022 Patient encounter procedure [facility]-Laboratory, Specimen Start: 07-13-2022 ambulatory Graciela cortez RN Work Phone: [employer] Start: 07-13-2022 Follow-up encounter Graciela To lisy RN Work Phone: [employer] Comment on above: Transition Of Care ( TCM follow up [facility] Hospital Discharge 06/28/22) Start: 07-12-2022 Telephone encounter Niraj Angela RN G astroenterology Comment on above: Appointment Confirma tion (/) Start: 07-11-2022 ambulatory Silvana Herrera MD Work Phone: [facility] Start: 07-11-2022 Telephone encounter Silvana awrren MD Work Phone: [facility] Comment on above: Patient Update Orders Start: 07-10-2022 End: 07-10-2022 Subsequent hospital visit by physician [facility] Qb1 (I-Stat) Radiology Comment on above: Postoperative absces s [T81.49XA] Start: 07-09-2022 Telephone encounter Beckie Cruz DO Work Phone: Vascular Medicine Comment on above: Patient Question Start: 07-09-2022 End: 07-09-2022 Nursing evaluation of patient and report Stoma Therapy Work Phone: Colorectal Surgery Comment on above: Attention to ileosto my (HCC) (Primary Dx) Start: 07-09-2022 End: 07-09-2022 Patient encounter procedure Silvana Herrera MD Work Phone: Infectious Disease Comment on above: Intra-abdominal absc ess (HCC) (Primary Dx) Postoperative absces s (Primary Dx); Low grade mucinous neoplasm of appendix; Mass of appendix Start: 07-07-2022 ambulatory Graciela cortez RN Work Phone: [facility] Start: 07-07-2022 Follow-up encounter Graciela wasserman RN Work Phone: [employer] Comment on above: Transition Of Care ( TCM follow up [facility] Hospital Discharge 06/28/22) Start: 07-03-2022 ambulatory Dmitriy Starks RN Infecti ous Disease Comment on above: [employer] Start: 06-29-2022 Patient Outreach Graciela swartz RN Work Phone: [employer] Comment on above: Transition Of Care ( TCM Initial [facility] Hospital Discharge 06/28/22) Start: 06-28-2022 ambulatory Tasia Blankenship Work Phone: Case Management Comment on above: [employer] Start: 06-26-2022 ambulatory Silvana Herrera MD Work Phone: [facility] Comment on above: CoPat Start Start: 06-13-2022 Telephone encounter Harjeet lyons MD Work Phone: Internal Medicine [place] Comment on above: Home Health Orders Start: 06-07-2022 Orders Only Avni Williamson MD Work Phone: Gastroenterology Comment on above: Bile leak (Primary D x) Start: 05-11-2022 End: 05-11-2022 Admission to establishment [facility] Work Phone: [facility] Start: 05-11-2022 End: 05-11-2022 ambulatory [facility] Work Phone: Pre Anesthesia Comment on above: Encounter for preope rative assessment (Primary Dx); Anemia, unspecified type; Obstructive sleep apnea syndrome; Hypercholesteremia <130 Start: 05-11-2022 End: 05-11-2022 Patient encounter status [facility] 7 Work Phone: Pre Anesthesia Start: 05-04-2022 ambulatory Nicolasa hi DO Work Phone: Colorectal Surgery Start: 05-04-2022 End: 05-04-2022 Patient encounter procedure Nicolasa Denise DO Work Phone: Colorectal Surgery Comment on above: 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); Non morbid obesity due to excess calories; Obstructive sleep apnea syndrome; Mass of appendix Start: 05-03-2022 End: 05-03-2022 ambulatory Andre Parnell DO Work Phone: Hematology/Oncology Comment on above: Mass of appendix (Pr imary Dx); Microcytic anemia Start: 05-03-2022 End: 05-03-2022 Patient encounter procedure Andre Parnell DO Work Phone: [facility] Start: 05-02-2022 End: 05-02-2022 Patient encounter procedure Priscila Clarke MD Work Phone: General Surgery Comment on above: Upper abdominal mass (Primary Dx) Start: 04-30-2022 Telephone encounter Priscila Clarke MD Work Phone: [facility] Comment on above: 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 Start: 04-26-2022 End: 04-26-2022 Subsequent hospital visit by physician Priscila Clarke MD Work Phone: Ambulatory Surgery Comment on above: Anemia, unspecified type [D64.9] Start: 2022 Telephone encounter Priscila Clarke MD Work Phone: General Surgery Comment on above: Results Appointment (New pat ient) Start: 2022 End: 2022 ambulatory AGUS ALANNA Facility:[facility] Start: 04-23-2022 Orders Only Marielos porras RN [facility] Radiology Comment on above: Omental mass (Primar y Dx) Start: 04-20-2022 End: 04-20-2022 Subsequent hospital visit by physician Ct Prep [facility] Cat Scan Comment on above: Intra-abdominal and pelvic swelling, mass and lump, unspecified site [R19.00] Start: 03-05-2022 Telephone encounter Julissa almeida APRN.[employer] Work Phone: Internal Medicine [place] Comment on above: Results, Lab Start: 03-02-2022 End: 03-02-2022 Patient encounter procedure Julissa Ugarte APRN.[employer] Work Phone: Internal Medicine [place] Comment on above: Obstructive sleep ap lenin syndrome (Primary Dx); Special screening examination for viral disease; Screening for HIV (human immunodeficiency virus); Hypercholesteremia <130; Non morbid obesity due to excess calories; Iron deficiency anemia, unspecified iron deficiency anemia type; Recurrent major depressive disorder, in partial remission (HCC) Start: 12-20-2021 Refill Harjeet lafleur MD Work Phone: Internal Medicine [place] Comment on above: Refill Request Procedures Date Procedure Procedure Detail Performing Clinician Start: 12-16-[address] Harjeet Bernard MD Work Phone: Start: 12-16-[address] Harjeet Bernard MD Work Phone: Start: 12-12-2024 Lipid 1996 panel - Serum or Plasma Gerard Ulloa DO Work Phone: Start: 11-27-2024 Complete ultrasound of kidneys and bladder Dr. Harjeet Bernard MD Work Phone: Start: 05-15-2024 Ct abdomen & pelvis w/contrast material Nicolasa Serrano Howie DO Work Phone: Start: 05-15-2024 Ct thorax w/contrast material Angel Howie DO Work Phone: Start: 05-15-2024 Lipid 1996 panel - Serum or Plasma Ct Ws tr Start: 05-17-2023 Ct abdomen & pelvis w/contrast material Angel Howie DO Work Phone: Start: 05-17-2023 Ct thorax w/contrast material Angel Howie DO Work Phone: Start: 01-04-2023 Lipid 1996 panel - Serum or Plasma Stoma Therapy Work Phone: Start: 09-14-2022 XR ABSCESS DRAIN INJECTION Angel Val ente DO Work Phone: Start: 07-25-2022 BILIRUBIN TOTAL BLD [facility] Start: 07-25-2022 CBC + DIFF [facility] Start: 07-25-2022 CK CREATINE KINASE [facility] Start: 07-25-2022 Comprehensive metabolic 2000 panel - Serum or Plasma [facility] Start: 07-19-2022 Ercp dx collection specimen brushing/washing Avni Williamson MD Work Phone: Start: 07-16-2022 BILIRUBIN TOTAL BLD [facility] Start: 07-16-2022 CBC + DIFF [facility] Start: 07-16-2022 CK CREATINE KINASE [facility] Start: 07-16-2022 Comprehensive metabolic 2000 panel - Serum or Plasma [facility] Start: 07-10-2022 XR ABSCESS DRAIN INJECTION Andre mcgowan MD Work Phone: Start: 07-28-2022 Esophagogastroduodenoscopy transoral diagnostic Priscila Clarke MD Work Phone: Start: 04-26-2022 Colonoscopy flx dx w/collj spec when pfrmd Priscila Clarke MD Work Phone: Start: 04-26-2022 Colonoscopy Priscila Clarke MD Work Phone: Start: 04-20-2022 Ct abdomen & pelvis w/contrast material Priscila Clarke MD Work Phone: Plan of Treatment Date Care Activity Detail Author Start: 12-12-2029 Lipid panel Lipid Screening [facility] Start: 05-15-2029 Lipid panel Lipid Screening [facility] Start: 03-25-2028 Urine microalbumin profile [facility] Start: 03-22-2028 Diabetes Screening Diabetes Screening [facility] Start: 02-02-2028 Diabetes Screening Diabetes Screening [facility] Start: 01-26-2028 Diabetes Screening Diabetes Screening [facility] Start: 01-19-2028 Diabetes Screening Diabetes Screening [facility] Start: 01-12-2028 Diabetes Screening Diabetes Screening [facility] Start: 01-05-2028 Lipid 1996 panel - Serum or Plasma Lipid Screening [facility] Start: 01-05-2028 Lipid panel Lipid Screening [facility] Start: 01-05-2028 LIPID SCREEN LIPID SCREEN [facility] Start: 12-15-2027 Diabetes Screening Diabetes Screening [facility] Start: 12-13-2027 Diabetes Screening Diabetes Screening [facility] Start: 12-05-2027 Diabetes Screening Diabetes Screening [facility] Start: 05-15-2027 Diabetes Screening Diabetes Screening [facility] Start: 01-04-2026 DIABETES SCREEN DIABETES SCREEN [facility] Start: 01-04-2026 Diabetes Screening Diabetes Screening [facility] Start: 07-25-2025 DIABETES SCREEN DIABETES SCREEN [facility] Start: 07-16-2025 DIABETES SCREEN DIABETES SCREEN [facility] Start: 06-28-2025 DIABETES SCREEN DIABETES SCREEN [facility] Start: 06-26-2025 DIABETES SCREEN DIABETES SCREEN [facility] Start: 06-14-2025 DIABETES SCREEN DIABETES SCREEN [facility] Start: 06-07-2025 DIABETES SCREEN DIABETES SCREEN [facility] Start: 05-31-2025 Influenza vaccination Influenza Vaccine (Season Ended) [facility] Start: 05-30-2025 DIABETES SCREEN DIABETES SCREEN [facility] Start: 05-17-2025 End: 05-17-2025 Patient encounter procedure 05/17/2025 3:40 PM EDT Office Visit [facility] [place] [address] [place] [address] Harjeet Bernard MD [address] [place], [place] [address] 6 month follow up [facility] [place] Comment on above: 6 month follow up Start: 04-19-2025 DIABETES SCREEN DIABETES SCREEN [facility] Start: 04-13-2025 End: 04-13-2025 Patient encounter procedure 04/13/2025 1:00 PM EDT Office Visit Kidney Medicine [address] [place] [address] Yeny Brunson I, MD [address] [place] 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) [Z93.2] [facility] Comment on above: 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 Colorectal Surgery [address] [address] Nicolasa Denise DO [address] [place], [place] [id number] Discuss recent admission/ hydration Colorectal Surgery Comment on above: Discuss recent admission/ hydration Start: 12-21-2024 End: 12-21-2024 Patient encounter procedure 12/21/2024 2:40 PM EDT Office Visit [facility] [place] [address] [place], [place] [id number] Harjeet Bernard MD [address] [place], [place] [id number] 6 month follow up [facility] [place] Comment on above: 6 month follow up Start: 12-16-2024 Patient discharge [facility] Start: 12-15-2024 Following clinical pathway protocol [facility] Start: 12-15-2024 Ambulation without limitation [facility] Start: 12-15-2024 Assessment of risk of venous thromboembolism [facility] Start: 12-15-2024 Insertion of catheter into peripheral vein [facility] Start: 12-15-2024 Providing care according to standard [facility] Start: 12-15-2024 [facility] Start: 12-15-2024 Verification routine [facility] Start: 12-15-2024 Admission procedure [facility] Start: 12-15-2024 Hospital admission, emergency, from emergency room, medical nature [facility] Start: 12-14-2024 End: 03-15-2025 Basic metabolic 2000 panel - Serum or Plasma BASIC METABOLIC PANEL Lab Routine Hypokalemia [place] (acute kidney injury) (HCC) Nausea vomiting and diarrhea Expected: 12/14/2024, Expires: 03/15/2025 [facility] Work Phone: Comment on above: Expected: 12/14/2024, Expires: Start: 12-04-2024 End: 12-04-2024 Patient encounter procedure 12/04/2024 11:00 AM EST Office Visit Internal Medicine [place] [address] [place] [address] Julissa Uagrte APRN.[employer] [address] [place] [address] [facility] Follow Up D/C 11/29/2024 Dehydration [facility] Medicine [place] Comment on above: [facility] Follow Up D/C 11/29/2024 Dehydration Start: 11-29-2024 Patient discharge [facility] Start: 11-28-2024 Following clinical pathway protocol [facility] Start: 11-28-2024 [facility] Start: 11-27-2024 Admission procedure [facility] Start: 11-26-2024 Ambulation without limitation [facility] Start: 11-26-2024 Assessment of risk of venous thromboembolism [facility] Start: 11-26-2024 Insertion of catheter into peripheral vein [facility] Start: 11-26-2024 Providing care according to standard [facility] Start: 11-26-2024 [facility] Start: 11-26-2024 Admission procedure [facility] Start: 11-26-2024 Patient referral to dietitian [facility] Start: 10-19-2024 End: 10-19-2024 Patient encounter procedure 10/19/2024 3:40 PM EST Office Visit Internal Medicine [place] [address] [place] [address] Harjeet Bernard MD [address] [place] [address] 6 month follow up [facility] [place] Comment on above: 6 month follow up Start: 10-08-2024 Covid-19 Vaccine () Covid-19 Vaccine () [facility] Comment on above: Postponed from 05/31/2023 (Declined at t his time) Start: 07-13-2024 End: 07-13-2024 Follow-up encounter 07/13/2024 1:00 PM EDT [facility] Colorectal Surgery [address] [address] Nicolasa Denise DO [address] [place], [place] [id number] 4 week follow up Colorectal Surgery Comment on above: 4 week follow up Start: 07-04-2024 DIABETES SCREEN DIABETES SCREEN [facility] Start: 06-15-2024 End: 06-15-2024 Patient encounter procedure 06/15/2024 10:20 AM EDT Office Visit Colorectal Surgery [address] [address] Nicolasa Denise DO [address] [place] [address] Yealy follow up Colorectal Surgery Comment on above: Yealy follow up Start: 06-15-2024 End: 06-15-2024 Nursing evaluation of patient and report 06/15/2024 10:15 AM EDT Nurse Visit Colorectal Surgery [address] [address] Therapy, [place] [address] [place] [address] Yearly follow up Colorectal Surgery Comment on above: Yearly follow up Start: 05-31-2024 Covid-19 Vaccine () Covid-19 Vaccine () [facility] Start: 05-31-2024 Covid-19 Vaccine () Covid-19 Vaccine () [facility] Start: 05-31-2024 Influenza vaccination [facility] Start: 05-15-2024 End: 08-14-2024 Hemoglobin A1c in Blood [facility] Comment on above: Expected: 05/15/2024, Expires: Start: 05-15-2024 End: 05-15-2024 Patient encounter procedure [facility] Comment on above: [address] ABD/PEL W IVCON, CT CHEST W IVCON Start: 04-13-2024 End: 04-13-2024 Patient encounter procedure 04/13/2024 4:40 PM EDT Office Visit [facility] [place] [address] [place], [place] [address] Harjeet Bernard MD [address] [place], [place] [id number] 6 month follow up [facility] [place] Comment on above: 6 month follow up Start: 03-29-2024 Influenza vaccination Influenza Vaccine (#1) [place] [facility] Comment on above: Postponed from 05/31/2023 (Declined at t his time) Start: 10-15-2023 COVID-19 VACCINE (3 - Booster for Moderna series) COVID-19 VACCINE (3 - Booster for Moderna series) [facility] Comment on above: Postponed from 03/16/2021 (Declined at t his time) Start: 10-15-2023 COVID-19 VACCINE (3 - Moderna series) COVID-19 VACCINE (3 - Moderna series) [facility] Comment on above: Postponed from 03/16/2021 (Declined at t his time) Start: 10-15-2023 HEPATITIS B (1 of 3 - 3-dose series) HEPATITIS B (1 of 3 - 3-dose series) [facility] Comment on above: Postponed from 1972 (Declined at t his time) Start: 10-15-2023 Hepatitis B Vaccine (1 of 3 - 3-dose series) Hepatitis B Vaccine (1 of 3 - 3-dose series) [facility] Comment on above: Postponed from 1972 (Declined at t his time) Start: 10-15-2023 Meningococcal B Vaccine: Consider Based On Risk (2 of 4 - Increased Risk Bexsero 2-dose series) Meningococcal B Vaccine: Consider Based On Risk (2 of 4 - Increased Risk Bexsero 2-dose series) [facility] Comment on above: Postponed from 07/17/2022 (Declined at t his time) Start: 10-15-2023 MENINGOCOCCAL B: Consider based on risk (2 of 4 - Increased Risk Bexsero 2-dose series) MENINGOCOCCAL B: Consider based on risk (2 of 4 - Increased Risk Bexsero 2-dose series) [facility] Comment on above: Postponed from 07/17/2022 (Declined at t his time) Start: 10-15-2023 MENINGOCOCCAL CONJUGATE (2 - Risk 2-dose series) MENINGOCOCCAL CONJUGATE (2 - Risk 2-dose series) [facility] Comment on above: Postponed from 08/13/2022 (Declined at t his time) Start: 10-15-2023 Meningococcal Conjugate Vaccine (2 - Risk 2-dose series) Meningococcal Conjugate Vaccine (2 - Risk 2-dose series) [facility] Comment on above: Postponed from 08/13/2022 (Declined at t his time) Start: 10-15-2023 SHINGRIX VACCINE (1 of 2) SHINGRIX VACCINE (1 of 2) [facility] Comment on above: Postponed from 1991 (Declined at t his time) Postponed from 04/24 (Declined at this time) Start: 10-11-2023 LIPID SCREEN LIPID SCREEN [facility] Start: 05-31-2023 End: 07-31-2023 Cancer Ag 125 [Units/volume] in Serum or Plasma CA 125 BLD Lab 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 Expected: 05/31/2023, Expires: 07/31/2023 [facility] Work Phone: Comment on above: Expected: 05/31/2023, Expires: 3 Start: 05-31-2023 End: 07-31-2023 Cancer Ag 19-9 [Units/volume] in Serum or Plasma CA 19-9 BLD Lab 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 Expected: 05/31/2023, Expires: 07/31/2023 [facility] Work Phone: Comment on above: Expected: 05/31/2023, Expires: 3 Start: 05-31-2023 End: 07-31-2023 Carcinoembryonic Ag [Mass/volume] in Serum or Plasma CEA BLD Lab 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 Expected: 05/31/2023, Expires: 07/31/2023 [facility] Work Phone: Comment on above: Expected: 05/31/2023, Expires: 3 Start: 05-31-2023 Covid-19 Vaccine ( season) Covid-19 Vaccine () [facility] Start: 05-31-2023 Influenza vaccination [facility] Start: 04-26-2023 Colonoscopy COLONOSCOPY [facility] Start: 04-26-2023 COLORECTAL CANCER SCREENING COLORECTAL CANCER SCREENING [facility] Start: 04-26-2023 Screening for malignant neoplasm of colon [facility] Start: 03-29-2023 Influenza vaccination INFLUENZA (#1) [facility] Comment on above: Postponed from 05/31/2022 (Declined at t his time) Start: 03-02-2023 HEPATITIS C SCREENING HEPATITIS C SCREENING [facility] Comment on above: Postponed from 1990 (Declined at t his time) Start: 03-02-2023 HIV SCREENING HIV SCREENING [facility] Comment on above: Postponed from 1990 (Declined at t his time) Start: 10-15-2022 End: 12-15-2022 CBC panel - Blood by Automated count CBC Lab Routine Encounter for long-term current use of medication Iron deficiency anemia, unspecified iron deficiency anemia type Expected: 10/15/2022, Expires: 12/15/2022 [facility] Work Phone: Comment on above: Expected: 10/15/2022, Expires: 3 Start: 10-15-2022 End: 12-15-2022 Comprehensive metabolic 2000 panel - Serum or Plasma COMP METABOLIC PANEL Lab Routine Encounter for long-term current use of medication Expected: 10/15/2022, Expires: 12/15/2022 [facility] Work Phone: Comment on above: Expected: 10/15/2022, Expires: 3 Start: 08-30-2022 End: 03-01-2023 CBC W Auto Differential panel - Blood CBC + DIFF Lab Routine Iron deficiency anemia, unspecified iron deficiency anemia type Recurrent major depressive disorder, in partial remission (HCC) Expected: 08/30/2022 (Approximate), Expires: 03/01/2023 [facility] Work Phone: Comment on above: Expected: 08/30/2022 (Approximate), Expi res: 03/01/2023 Start: 08-30-2022 End: 03-01-2023 Comprehensive metabolic 2000 panel - Serum or Plasma COMP METABOLIC PANEL Lab Routine Hypercholesteremia <130 Recurrent major depressive disorder, in partial remission (HCC) Expected: 08/30/2022 (Approximate), Expires: 03/01/2023 [facility] Work Phone: Comment on above: Expected: 08/30/2022 (Approximate), Expi res: 03/01/2023 Start: 08-30-2022 End: 03-01-2023 LIPID PANEL BASIC LIPID PANEL BASIC Lab Routine Hypercholesteremia <130 Expected: 08/30/2022 (Approximate), Expires: 03/01/2023 [facility] Work Phone: Comment on above: Expected: 08/30/2022 (Approximate), Expi res: 03/01/2023 Start: 08-13-2022 MENINGOCOCCAL CONJUGATE (2 - Risk 2-dose series) MENINGOCOCCAL CONJUGATE (2 - Risk 2-dose series) [facility] Start: 08-13-2022 Meningococcal Conjugate Vaccine (2 - Risk 2-dose series) Meningococcal Conjugate Vaccine (2 - Risk 2-dose series) [facility] Start: 08-12-2022 COLORECTAL CANCER SCREENING COLORECTAL CANCER SCREENING [facility] Start: 08-12-2022 FECAL OCCULT BLOOD FECAL OCCULT BLOOD [facility] Start: 08-12-2022 Screening for malignant neoplasm of colon Fecal Occult Blood [facility] Start: 07-19-2022 End: 06-07-2023 ERCP ERCP Endoscopy Routine Bile leak Expected: 07/19/2022, Expires: 06/07/2023 [facility] Work Phone: Comment on above: Expected: 07/19/2022, Expires: Start: 07-17-2022 Meningococcal B Vaccine (2 of 5 - Increased Risk Bexsero 3-dose series) Meningococcal B Vaccine (2 of 5 - Increased Risk Bexsero 3-dose series) [facility] Start: 07-17-2022 Meningococcal B Vaccine: Consider Based On Risk (2 of 4 - Increased Risk Bexsero 2-dose series) Meningococcal B Vaccine: Consider Based On Risk (2 of 4 - Increased Risk Bexsero 2-dose series) [facility] Start: 07-17-2022 MENINGOCOCCAL B: Consider based on risk (2 of 4 - Increased Risk Bexsero 2-dose series) MENINGOCOCCAL B: Consider based on risk (2 of 4 - Increased Risk Bexsero 2-dose series) [facility] Start: 07-04-2022 COVID-19 VACCINE (#1) COVID-19 VACCINE (#1) [facility] Comment on above: Postponed from 1977 (Declined at t his time) Postponed from 10/25 (Declined at this time) Start: 07-04-2022 COVID-19 VACCINE (1) COVID-19 VACCINE (1) [facility] Comment on above: Postponed from 1977 (Declined at t his time) Start: 07-04-2022 COVID-19 VACCINE (3 - Booster for Moderna series) COVID-19 VACCINE (3 - Booster for Moderna series) [facility] Comment on above: Postponed from 03/16/2021 (Declined at t his time) Start: 05-31-2022 Influenza vaccination [facility] Start: 05-11-2022 End: 07-11-2022 Comprehensive metabolic 2000 panel - Serum or Plasma [facility] Work Phone: Comment on above: Expected: 05/11/2022, Expires: 2 Start: 05-11-2022 End: 07-11-2022 CONFIRM BLOOD TYPE [facility] Work Phone: Comment on above: Expected: 05/11/2022, Expires: 2 Start: 05-11-2022 End: 07-11-2022 TYPE AND SCREEN,30 DAY [facility] Work Phone: Comment on above: Expected: 05/11/2022, Expires: 2 Start: 05-03-2022 End: 07-03-2022 Transferrin receptor.soluble [Mass/volume] in Serum or Plasma [facility] Work Phone: Comment on above: Expected: 05/03/2022, Expires: 2 Start: 2022 SHINGRIX VACCINE (1 of 2) SHINGRIX VACCINE (1 of 2) [facility] Start: 04-23-2022 End: 06-23-2022 CBC W Auto Differential panel - Blood CBC + DIFF Lab Routine Omental mass Expected: 04/23/2022, Expires: 06/23/2022 [facility] Work Phone: Comment on above: Expected: 04/23/2022, Expires: 2 Start: 03-29-2022 Influenza vaccination INFLUENZA (#1) [facility] Comment on above: Postponed from 05/31/2021 (Declined at t his time) Start: 12-21-2021 HEPATITIS C SCREENING HEPATITIS C SCREENING [facility] Comment on above: Postponed from 1990 (Declined at t his time) Start: 12-21-2021 HIV SCREENING HIV SCREENING [facility] Comment on above: Postponed from 1990 (Declined at t his time) Start: 03-16-2021 COVID-19 VACCINE (3 - Booster for Moderna series) COVID-19 VACCINE (3 - Booster for Moderna series) [facility] Start: 2017 COLOGUARD (FIT-DNA) COLOGUARD (FIT-DNA) [facility] Start: 2017 Colonoscopy COLONOSCOPY [facility] Start: [address] COLONOGRAPHY [facility] Start: 2017 Screening for malignant neoplasm of colon [facility] Start: 2017 SIGMOIDOSCOPY SIGMOIDOSCOPY [facility] Start: 1991 Hepatitis B Vaccine (1 of 3 - 19+ 3-dose series) Hepatitis B Vaccine (1 of 3 - 19+ 3-dose series) [facility] Start: 1991 SHINGRIX VACCINE (1 of 2) SHINGRIX VACCINE (1 of 2) [facility] Start: 1990 HEPATITIS C SCREENING HEPATITIS C SCREENING [facility] Start: 1990 Hepatitis C screening Hepatitis C Screening [facility] Start: 1990 HIV SCREENING HIV SCREENING [facility] Start: 1990 HIV screening HIV Screening [facility] Start: 1978 PNEUMOCOCCAL (1 - PCV) PNEUMOCOCCAL (1 - PCV) [facility] Start: 1972 HEPATITIS B (1 of 3 - 3-dose series) HEPATITIS B (1 of 3 - 3-dose series) [facility] Start: 1972 Hepatitis B Vaccine (1 of 3 - 3-dose series) Hepatitis B Vaccine (1 of 3 - 3-dose series) [facility] End: 12-21-2025 Basic metabolic 2000 panel - Serum or Plasma BASIC METABOLIC PANEL Lab Routine [place] (acute kidney injury) (HCC) 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) Once per week for 30 Occurrences starting 12/21/2024 until 12/21/2025 [facility] Work Phone: Comment on above: Once per week for 30 Occurrences startin g 12/21/2024 until 12/21/2025 Basic metabolic 2000 panel - Serum or Plasma BASIC METABOLIC PANEL Lab Routine [place] (acute kidney injury) (HCC) 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) 12/21/2024 4:47 PM EDT [facility] End: 05-15-2025 CBC panel - Blood by Automated count COMPLETE BLOOD COUNT Lab Routine Encounter for long-term current use of medication Every 6 months for 60 Occurrences starting 05/15/2024 until 05/15/2025 [facility] Comment on above: Every 6 months for 60 Occurrences starti ng 05/15/2024 until 05/15/2025 CBC panel - Blood by Automated count COMPLETE BLOOD COUNT Lab Routine Encounter for long-term current use of medication 05/15/2024 12:24 PM EDT [facility] End: 05-15-2025 Comprehensive metabolic 2000 panel - Serum or Plasma COMPREHENSIVE METABOLIC PANEL Lab Routine Encounter for long-term current use of medication Elevated glucose Every 6 months for 60 Occurrences starting 05/15/2024 until 05/15/2025 [facility] Work Phone: Comment on above: Every 6 months for 60 Occurrences starti ng 05/15/2024 until 05/15/2025 Comprehensive metabo lic 2000 panel - Serum or Plasma COMPREHENSIVE METABOLIC PANEL Lab Routine Encounter for long-term current use of medication Elevated glucose 05/15/2024 12:24 PM EDT [facility] End: 02-07-2024 Ct abdomen & pelvis w/contrast material CT ABD/PEL W IVCON Radiology Routine Intra-abdominal and pelvic swelling, mass and lump, unspecified site 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 Occurrences starting 01/08/2023 until 02/07/2024 [facility] Work Phone: Comment on above: 1 Occurrences starting 01/08/2023 until 02/07/2024 End: 02-07-2024 CT CHEST W IVCON CT CHEST W IVCON Radiology Routine Intra-abdominal and pelvic swelling, mass and lump, unspecified site 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 Occurrences starting 01/08/2023 until 02/07/2024 [facility] Work Phone: Comment on above: 1 Occurrences starting 01/08/2023 until 02/07/2024 End: 05-04-2023 ECG COMPLETE ECG COMPLETE ECG 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 Occurrences starting 05/11/2022 until 05/04/2023 [facility] Work Phone: Comment on above: 1 Occurrences starting 05/11/2022 until 05/04/2023 End: 05-15-2025 Lipid 1996 panel - Serum or Plasma LIPID PANEL BASIC Lab Routine Hypercholesteremia <130 Every 6 months for 60 Occurrences starting 05/15/2024 until 05/15/2025 [facility] Comment on above: Every 6 months for 60 Occurrences starti ng 05/15/2024 until 05/15/2025 Lipid 1996 panel - S yasmeen or Plasma LIPID PANEL BASIC Lab Routine Hypercholesteremia <130 05/15/2024 12:24 PM EDT [facility] Magnesium measurement [facility] Patient referral [facility] Work Phone: REFER FOR ADMIT INTERVIEW REFER FOR ADMIT INTERVIEW Procedures 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 Ordered: 05/11/2022 [facility] Work Phone: Comment on above: Ordered: 05/11/2022 End: 09-26-2023 XR ABSCESS DRAIN INJECTION XR ABSCESS DRAIN INJECTION Radiology 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 Occurrences starting 08/27/2022 until 09/26/2023 [facility] Work Phone: Comment on above: 1 Occurrences starting 08/27/2022 until 09/26/2023 [facility] Immunizations Immunization Date Immunization Notes Care Provider Godfrey abad 06-19-2022 haemophilus influenz ae type b vaccine, PRP-T conjugate Silvana Herrera MD Work Phone: [facility] 06-19-2022 meningococcal B vacc ine, fully recombinant Dr. Harjeet Bernard MD Work Phone: [facility] 06-19-2022 meningococcal B vacc ine, recombinant, OMV, adjuvanted Silvana Herrera MD Work Phone: [facility] 06-18-2022 meningococcal (MenACWY-TT) vaccine, quadrivalent (MENQUADFI) Silvana Herrera MD Work Phone: [facility] 06-18-2022 meningococcal polysaccharide (groups A, C, Y and W-135) diphtheria toxoid conjugate vaccine (MCV4P) Dr. Harjeet Bernard MD Work Phone: [facility] 06-18-2022 pneumococcal (PCV20) vaccine, 20 valent (PREVNAR 20) Silvana Herrera MD Work Phone: [facility] 01-19-2021 Covid (Moderna) Dr. Harjeet lyons MD Work Phone: [facility] 12-22-2020 Covid (Moderna) Dr. Harjeet lyons MD Work Phone: [facility] 10-18-2018 influenza virus vacc ine, unspecified formulation [facility] Work Phone: [facility] 03-25-2018 tetanus toxoid, redu eulalia diphtheria toxoid, and acellular pertussis vaccine, adsorbed Harjeet Bernard MD Work Phone: [facility] Payers Date Payer Category Payer [employer] Blue [employer] BLUE CARD PPO OOS [id number] 2024 Self-pay 2015 Unknown ANTHEM BLUE CARD PPO OOS [id number] 2015-Present [phone] [id number] [place] [address] PPO [id number] 2015 Unknown ANTHEM BLUE CARD PPO OOS [id number] 2015-Present [phone] [id number] [place] [address] PPO [id number] 2003 Unknown [id number] 2003 Unknown ANTHEM [id number] 2003 Unknown [id number] Unknown [id number] Unknown [id number] Unknown [id number] Unknown [id number] Unknown [id number] Unknown [id number] Unknown [id number] Unknown [id number] Unknown [id number] Unknown [id number] Social History Date Type Detail Facility Start: 10-16-2011 End: 07-09-2022 Tobacco smoking status NHIS Never smoked tobacco [facility] Start: 07-04-2021 End: 03-02-2022 Alcohol intake Not Asked [facility] Start: 1970 Sex Assigned At Not on file C [facility] Start: 02-20-2022 End: 08-27-2022 Exposure to SARS-CoV-2 (event) Not sure [facility] Work Phone: Start: 04-19-2022 End: 12-21-2024 Alcohol intake Lifetime non-drinker (finding) [facility] Start: 04-19-2022 History SDOH Alcohol Frequency 1 [facility] Start: 10-16-2011 End: 07-09-2022 Tobacco use and exposure Smokeless tobacco non-user [facility] Start: 1970 Sex Assigned At Male [facility] Start: 04-05-2023 End: 11-10-2023 History of Social function [facility] Start: 04-05-2023 End: 11-10-2023 Tobacco use panel [facility] National Score (1-10 0), lower number is lower risk 66 [facility] Are you now , , , , never or living with a partner? Living with partner [facility] Do you feel stress - tense, restless, nervous, or anxious, or unable to sleep at night because your mind is troubled all the time - these days [OSQ] To some extent [facility] Start: 12-15-2024 End: 01-15-2025 Sex Male (finding) [facility] Medical Equipment Procedure Code Equipment Code Equipment Origin al Text Equipment Identifier Dates Stent Zimmon 5fr Pigtail Curve Blue Polyethylene 7cm Pancreatic Tapered Tip - [id number] Start: 06-07-2022 Stent 7fr Duoden al Bend Plastic 10cm Biliary Temporary Rapid Exchange - [id number] Start: 06-07-2022 Goals Date Patient Goal Desired Activity /State Functional Status Date Assessment Result Facility 12-16-2024 Functional status Up ad ava;Bath room Privilege [facility] Work Phone: 11-29-2024 Functional status Ambulates;Up ad ava [facility] Work Phone: 01-25-2014 Are you deaf, or do you have serious difficulty hearing No 01/25/2014 5:44 PM Amanda Bird RN No [facility] 01-25-2014 Are you blind, or do you have serious difficulty seeing, even when wearing glasses No 01/25/2014 5:44 PM Amanda Bird RN No [facility] 01-25-2014 Do you have serious difficulty walking or climbing stairs No 01/25/2014 5:44 PM Amanda Bird RN No [facility] 01-25-2014 Do you have difficul ty dressing or bathing No 01/25/2014 5:44 PM Amanda Bird RN No [facility] 01-25-2014 Because of a physica l, mental, or emotional condition, do you have difficulty doing errands alone such as visiting a physician's office or shopping No 01/25/2014 5:44 PM Amanda Bird RN No [facility] Mental Status Date Assessment Result Facility 01-15-2025 Cognitive function Level Of Cons ciousness Awake;Alert;Appropriate;Fol lows Commands [facility] Work Phone: 12-16-2024 Cognitive function Appropriate [facility] Work Phone: 12-15-2024 Cognitive function Level Of Cons ciousness Awake;Alert;Appropriate;Fol lows Commands [facility] Work Phone: 11-29-2024 Cognitive function Demonstrates ability to follow instructions/comprehend [facility] Work Phone: 11-29-2024 Cognitive function Appropriate;Cooperativ e [facility] Work Phone: 01-25-2014 Because of a physica l, mental, or emotional condition, do you have serious difficulty concentrating, remembering, or making decisions No 01/25/2014 5:44 PM Amanda Bird RN No [facility] Clinical Notes 01-17-2011 to 02-03-2025 Telephone Encounter - Cleo Parekh RN - 02/03/2025 3:29 PM EDTTelephone Encounter - Cleo Parekh RN - 02/03/2025 3:29 PM EDTTelephone Encounter - Callie Hall - 02/03/2025 2:40 PM EDT Note Date & Type Note Facility 02-03-2025 Telephone encount er Note Mychart sent. [facility] 02-03-2025 Miscellaneous Notes Formattin g of this note might be different from the original. Mychart sent. [phone] Dov Patient calling to go over ostomy output with the nurse. States if she doesn't need to call him, a [employer] message will be ok. documented in this encounter [facility] 02-03-2025 Telephone encount er Note [phone] Dov Patient calling to go over ostomy output with the nurse. States if she doesn't need to call him, a [employer] message will be ok. [facility] 01-27-2025 Telephone encount er Note Daily outputs: 01/22: 28 oz 01/23: 52 oz 01/24: 58 oz 01/25: 36 oz 01/26:40 oz Consistency: varies watery- to mashed potatoes. He is playing with the amount of lomotil he takes daily. Over the last 3 weeks has gained back 3 lbs. He overall feeling: really good. Appetite is improving. 1-2 protein shakes a day. Lab work is trending up. They will continue to monitor and play with bowel stoppers and call me in 1 week. [facility] 01-27-2025 Miscellaneous Notes Formattin g of this note might be different from the original. Daily outputs: 01/22: 28 oz 01/23: 52 oz 01/24: 58 oz 01/25: 36 oz 01/26:40 oz Consistency: varies watery- to mashed potatoes. He is playing with the amount of lomotil he takes daily. Over the last 3 weeks has gained back 3 lbs. He overall feeling: really good. Appetite is improving. 1-2 protein shakes a day. Lab work is trending up. They will continue to monitor and play with bowel stoppers and call me in 1 week. documented in this encounter [facility] 01-18-2025 Telephone encount er Note 2 bags of fluids over the weekend, he started max dosing lomotil and imodium since Saturday- has seen considerable improvements in output consistency since then. Output became a thick applesauce/cake batter consistency. They pulled back on the lomotil and imodium- to 1 and 1. I requested that they pull back on the lomotil first. Continue to take max dosing of imodium, then add 1 lomotil 30 mins before breakfast, and 1 30 mins before dinner- see how his output is then. Requested they continue to document 24 hours output for the next few days, and call me back with the improvements. If they have any concerns before then call. We discussed that he should not be without output for extended periods of time, as this still is an ileostomy, so inevidably it will produce output, and we want to make sure he's not developing a bowel obstruction. He verbalized understanding, S.O. on the phone did as well. They will call with any further concerns. [facility] 01-18-2025 Miscellaneous Notes Formattin g of this note might be different from the original. 2 bags of fluids over the weekend, he started max dosing lomotil and imodium since Saturday- has seen considerable improvements in output consistency since then. Output became a thick applesauce/cake batter consistency. They pulled back on the lomotil and imodium- to 1 and 1. I requested that they pull back on the lomotil first. Continue to take max dosing of imodium, then add 1 lomotil 30 mins before breakfast, and 1 30 mins before dinner- see how his output is then. Requested they continue to document 24 hours output for the next few days, and call me back with the improvements. If they have any concerns before then call. We discussed that he should not be without output for extended periods of time, as this still is an ileostomy, so inevidably it will produce output, and we want to make sure he's not developing a bowel obstruction. He verbalized understanding, S.O. on the phone did as well. They will call with any further concerns. He is doing better with 1 Imodium, lomotil. This has slowed his ouput down considerably. Please call. documented in this encounter [facility] 01-18-2025 Telephone encount er Note He is doing better with 1 Imodium, lomotil. This has slowed his ouput down considerably. Please call. [facility] Work Phone: 01-15-2025 Discharge summary [facility] 01-15-2025 Telephone encount er Note Patient has questions of G2 vs full sugar gatorade. We discussed the following: Staying away from sugar drinks- choosing the diabetic/sugar alternatives will help. Limiting plain water. Increasing dosing of imodium and starting lomotil. Per Dr. Denise he wants him to present for fluids. Eat bulking foods not just liquids. Keep measuring output Regroup and touch base on Saturday. [facility] 01-15-2025 Miscellaneous Notes Formattin g of this note might be different from the original. Patient has questions of G2 vs full sugar gatorade. We discussed the following: Staying away from sugar drinks- choosing the diabetic/sugar alternatives will help. Limiting plain water. Increasing dosing of imodium and starting lomotil. Per Dr. Denise he wants him to present for fluids. Eat bulking foods not just liquids. Keep measuring output Regroup and touch base on Saturday. Patient calling to say his output was 78 ouces over 24 hours. Please call him back after 230 p, when he get off work please documented in this encounter [facility] 01-15-2025 Discharge summary Note Date/Time January 15, 2025 11:27pm [facility] Medical Records Department [address] [place] [address] Emergency Department Summary 01/15/25 MR#: [id number] Acct: [id number] Name: DOV BURROWS Rep #:[id number] : 1970 54 From: Iker malcolm DO PCP: Dr. Harjeet Bernard MD Status:RE G ER Location: ED HPI History of Present Illness Chief Complaint: General Illness Narrative Narrative: Chief complaint and HPI: Dehydration/increased ileostomy output. 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 Patient states that he has been having increased ileostomy output since October. He got a hold of his surgeon Dr. Buenrostro at [facility]. He wanted the patient to present to the emergency department for some fluids and then follow-up in his office outpatient. Patient denies any fever, chills, shortness of breath, chest pain, nausea, vomiting, dysuria, abdominal pain. Review of systems: See HPI Medications: As listed on the chart Allergies: As listed on the chart PFSH: Per chart Vital signs: As listed on the chart. Reviewed. Physical exam: Gen: A&O x3, NAD Head: Normocephalic, atraumatic Eyes: No sclera icterus, conjunctiva clear ENT: Dry mucous membranes Neck: Trachea midline, No JVD CV: RRR, no murmurs, no peripheral edema Resp: Lungs CTA BL, no w/r/c GI: Abd soft, non-distended, non-tender, no r/r/g, + ileostomy Musc: Full ROM, no deformity Skin: Warm, dry Neuro: Alert, oriented, grossly intact, sensation intact Psych: Cooperative, appropriate mood and affect [facility] Medical History Cancer of appendix Ileostomy present Acute appendicitis Home Medications ?Medication ?Instructions ?Recorded ?Last Taken ?Type bupropion HCl 150 mg tablet,12 hr 150 mg PO DAILY 02/2012/15/24 History sustained-release fluvoxamine 150 mg 150 mg PO DAILY 05/04/24 History capsule,extended release 24 hr ondansetron 8 mg disintegrating 8 mg PO Q8H PRN nausea and 05/04/24 Unknown Rx tablet vomiting #20 tabs omeprazole 20 mg capsule,delayed 20 mg PO DAILY 12/15/24 History release psyllium husk (aspartame) 3 gram 1 packet PO TID #54 e a 11/29/24 12/15/24 Rx oral powder packet (Daily Fiber (psyllium-aspartame)) dicyclomine 20 mg tablet 20 mg PO .QID PRN diarrhea # 20 tabs 12/16/24 Unknown Rx diphenoxylate-atropine 2.5 2 tab PO Q6H PRN diarrhea # 30 tabs 12/16/24 Unknown Rx mg-0.025 mg tablet (Lomotil) Allergy/AdvReac Type Severity Reaction Status Date / Time No Known Allergies Allergy Verified 01/15/25 19:27 Family History (Updated 11/26/24 @ 18:[address] Ibrahima Doan DO) Other VTE (venous thromboembolism) Surgical History S/P splenectomy H/O colectomy Social History household members: spouse housing: house Smoking Status: Never smoker EXAM Physical Exam Const Vital Signs: 01/15/25 19:26 01/15/25 20:54 01/15/25 21:04 Temperature 98.2 F Temperature Source Oral Pulse Rate 95 81 Respiratory Rate 18 18 Respiratory Effort Normal Non-Labored Respiratory Pattern Normal Blood Pressure 117/78 118/81 H Blood Pressure Mean 91 93 Pulse Ox 98 97 Oxygen Delivery Method Room Air Room Air MDM MDM MDM Narrative Medical decision making narrative: 54-year-old male with 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 Patient states that he has been having increased ileostomy output since October. He got a hold of his surgeon Dr. Buenrostro at [facility]. He wanted the patient to present to the emergency department for some fluids and then follow-up in his office outpatient. Patientdenies any infectious type symptoms or abdominal pain. He is clinically dehydrated on exam. Differential diagnosis includes but is not limited to dehydration, [place], electrolyte abnormality. 2 L NS bolus ordered with CBC and BMP. I do not think any imaging or further workup is needed at this time. CBC shows leukocytosis of 13.7. Patient has baseline anemia at 12. BMP shows dehydration with hyponatremia 128, [place] with creatinine of 3.02. On chart review, patient's baseline is around 2. His bicarb is 6.5. Will repeat BMP to make sure if this is accurate. Repeat BMP again shows hyponatremia however improved at 130. Bicarb slightly improved at 7.1. Creatinine slightly improvedat 2.93. Patient will warrant admission for continued fluid hydration. He was updated of all the results and the plan. He confirmed understanding. Patient discussed with the hospitalist service who accepted admission. Shortly after patient being accepted he states that he would like to discharge home. He states that he was only supposed to receive fluids. He states that he is following up with his surgeon tomorrow to get further treatment. Although I do understand this was not the original plan given patient's laboratory workup, I do not believe that it is safe for him to discharge home. I feel that he needs to continue to be monitored and treated with hydration. The patient has chosen to leave AGAINST MEDICAL ADVICE. I personally explained to him that she is in to do so may result in permanent bodily harm or . I discussed at length that without further evaluation or monitoring there may be unforeseen circumstances and deterioration causing early body harm or because of his choice. He is alert and oriented to make his own decisions. He states that he is aware of the serious risks as explained, but continues to want to leave. Considering his decision to leave AGAINST MEDICAL ADVICE, he was told to follow-up with his surgeon. He has arranged follow-up for tomorrow. He was advised that he should return to the ED immediately if he changes his mind at any time or his condition begins to worsen or change. Impression: 1. Dehydration with [place]/renal insufficiency 2. Hyponatremia 3. History of ileostomy with increased output 4. Left AGAINST MEDICAL ADVICE Lab Data Labs: Laboratory Results - last 24 hr 01/15/25 01/15/25 20:42 22:09 WBC 13.7 H RBC 3.76 L Hgb 12.0 L Hct 35.2 L MCV 93.6 MCH 31.9 MCHC 34.1 RDW Std Deviation 54.4 H RDW Coeff of Dirk 15.9 H Plt Count 344 MPV 8.8 Immature Gran % (Auto) 0.400 Neut % (Auto) 84.7 H Lymph % (Auto) 4.9 L Clinch % (Auto) 9.5 Eos % (Auto) 0.3 Baso % (Auto) 0.2 Absolute Neuts (auto) 11.6 H Absolute Lymphs (auto) 0.67 L Nucleated RBC % 0.1 Sodium 128 L Potassium 3.7 Chloride 106 Carbon Dioxide 6.5 L* Cancelled Anion Gap 16 H BUN 48 H Creatinine 3.02 H Estim Creat Clear Calc 32.34 L Est GFR (MDRD) Non-Af 24 L BUN/Creatinine Ratio 15.8 Glucose 115 H Calcium 9.0 Discharge Plan Triage Chief Complaint: General Illness ED Provider: Iker Richards Dx/Rx/DC Orders Prescriptions: No Action bupropion HCl 150 mg tablet sustained-release 12 hr 150 mg PO DAILY Patient Comments: [NO ORIGINAL SIG] fluvoxamine 150 mg capsule,extended release 24hr 150 mg PO DAILY Patient Comments: [NO ORIGINAL SIG] ondansetron 8 mg tablet,disintegrating 8 mg PO Q8H PRN (Reason: nausea and vomiting) Qty: 20 0RF omeprazole 20 mg capsule,delayed release(DR/EC) 20 mg PO DAILY Daily Fiber (psyllium-aspart) 3 gram Powder In Packet 1 packet PO TID Qty: 54 0RF diphenoxylate-atropine [Lomotil] 2.5-0.025 mg tablet 2 tab PO Q6H PRN (Reason: diarrhea) Qty: 30 0RF dicyclomine 20 mg tablet 20 mg PO .QID PRN (Reason: diarrhea) Qty: 20 0RF Primary Care Provider: Harjeet Bernard Referrals: Harjeet Bernard MD [Primary Care Provider] - Print Language: Prydeinig What to do if you have Problems For any increased pain, shortness of breath, bleeding, nausea or vomiting, chestpain, or any unexpected problems, contact your Primary Care Provider. Call [facility] ([phone]) or report to the closest Emergency Room. Call 911 if necessary. 01/15/252326 <Electronically signed by Iker Richards DO> Cosigner Signature (if applicable): CC: Dr. Harjeet Bernard MD ~ Signed [facility] Work Phone: 1(885) 532-104604-18-2025 Telephone encounter Note* Telephone Encounter - Mary Gonzalez - 01/15/2025 1:13 PM EDT Patient calling to say his output was 78 ouces over 24 hours. Please call him back after 230 p, when he get off work please [facility] Work Phone: 1(181) 102-120004-17-2025 Telephone encounter Note* Telephone Encounter - Cleo Parekh RN - 01/14/2025 3:08 PM EDT Patient is taking fiber, and imodium not consistently. He will measure output for 24 hours and let us know. He claims his output is pure liquid- he does endorse drinking a lot of fluids which he knows may contribute to his high output. He is taking about 3-4 tabs of imodium a day. I recommended the rest of today taking 2 before dinner and 2 before bed. Heavy on the electrolyte fluids not plain water. Also told him to max dosing of imodium starting now. Will update Dr. Denise and make sure he knows the updated info. [facility]04-17-2025 Miscellaneous Notes* Telephone Encounter - Cleo Parekh RN - 01/14/2025 3:08 PM EDT Patient is taking fiber, and imodium not consistently. He will measure output for 24 hours and let us know. He claims his output is pure liquid- he does endorse drinking a lot of fluids which he knows may contribute to his high output. He is taking about 3-4 tabs of imodium a day. I recommended the rest of today taking 2 before dinner and 2 before bed. Heavy on the electrolyte fluids not plain water. Also told him to max dosing of imodium starting now. Will update Dr. Denise and make sure he knows the updated info. * Telephone Encounter - Cleo Parekh RN - 01/14/2025 10:48 AM EDT Left VM regarding mychart message. Requested a call back to discuss symptoms/output. [facility] Telephone encounter Note * Telephone Encounter - Cleo Parekh RN - 01/14/2025 10:48 AM EDT Left VM regarding mychart message. Requested a call back to discuss symptoms/output. [facility]03-31-2025 History of Present illness Narrative* Nicolasa Denise DO - 12/28/2024 2:45 PM EDT COLORECTAL SURGERY VIRTUAL VISIT FOLLOW UP I have communicated my name and active licensure. The patient's identity and physical location wereverified at the time of this visit. Either the patient or their legal compliance representative has been informed of the risks and benefits of -- and alternatives to -- treatment through a remote evaluation andconsents to proceed with the evaluation remotely. I had a virtual visit with Mr. Burrows today for follow up of recent hospitalization. 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 He is here today to discuss an admission from dehydration lately. PHYSICAL FINDINGS OF NOTE: Patient reported height 6'1'' and weight 204 lbs General - Normal, healthy, cooperative, in no acute distress Able to interact verbally by video conference Pulmonary - respiratory effort normal Abdominal - Not performed Motor - patient seen sitting with Normal appearing strength and coordination Anorectal exam - Not Performed Medical Decision Making: Assessment Assessment & Diagnosis: Dov Burrows is a 54 year old male s/p CRS/HIPEC Data Reviewed: Tests & Documents Reviewed/ordered: Review of prior notes from med oncology Review of prior operative reports Review of Pathology Review of Imaging: CT Abdomen, CT Pelvis, CT Chest Review of Labs: CBC, BMP, CEA, CA 125, Albumin Review of Procedures / Tests: Colonoscopy I have independently interpreted: CT Abdomen, CT Pelvis, CT Chest I have discussed Dov Burrows's treatment plan and/or results with patient. Treatment plan: Observation Hydration Repeat CT scans 6 months I have confirmed and edited as necessary, the PFSH and ROS obtained by others. Nicolasa Denise DO, FACS, FASCRS Colorectal Surgery Risk of morbidity, mortality and/or complications of treatment plan: high I spent a total of 30 minutes on the date of the service which included preparing to see the patient, [id number] patient care, completing clinical documentation, obtaining and/or reviewing separately obtained history, performing a medically appropriate examination, counseling and educating the pat ient/family/caregiver, ordering medications, tests, or procedures, communicating with other HCPs (not separately reported), independently interpreting results (not separately reported), communicatingresults to the patient/family/caregiver, and care coordination (not separately reported). documented in this encounterUniversity [facility]03-31-2025 NoteHNO ID: [id number] Author: NICOLASA DENISE DO Service: ? Author Type: Physician Type: Progress Notes Filed: 03/26/2025 10:21 Note Text: COLORECTAL SURGERY VIRTUAL VISIT FOLLOW UP I have communicated my name and active licensure. The patient's identity and physical location were verified at the time of this visit. Either the patient or their legal compliance representative has been informed of the risks and benefits of -- and alternatives to -- treatment through a remote evaluation and consents to proceed with the evaluation remotely. I had a virtual visit with Mr. Burrows today for follow up of recent hospitalization. 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 He is here today to discuss an admission from dehydration lately. PHYSICAL FINDINGS OF NOTE: Patient reported height 6'1'' and weight 204 lbs General - Normal, healthy, cooperative, in no acute distress Able to interact verbally by video conference Pulmonary - respiratory effort normal Abdominal - Not performed Motor - patient seen sitting with Normal appearing strength and coordination Anorectal exam - Not Performed Medical Decision Making: Assessment Assessment AND Diagnosis: Dov Burrows is a 54 year old male s/p CRS/HIPEC Data Reviewed: Tests AND Documents Reviewed/ordered: Review of prior notes from med oncology Review of prior operative reports Review of Pathology Review of Imaging: CT Abdomen, CT Pelvis, CT Chest Review of Labs: CBC, BMP, CEA, CA 125, Albumin Review of Procedures / Tests: Colonoscopy I have independently interpreted: CT Abdomen, CT Pelvis, CT Chest I have discussed Dov Burrows's treatment plan and/or results with patient. Treatment plan: Observation Hydration Repeat CT scans 6 months I have confirmed and edited as necessary, the PFSH and ROS obtained by others. Nicolasa Denise DO, FACS, FASCRS Colorectal Surgery Risk of morbidity, mortality and/or complications of treatment plan: high I spent a total of 30 minutes on the date of the service which included preparing to see the patient, [id number] patient care, completing clinical documentation, obtaining and/or reviewing separately obtained history, performing a medically appropriate examination, counseling and educating the patient/family/caregiver, ordering medications, tests, or procedures, communicating with other HCPs (not separately reported), independently interpreting results (not separately reported), communicating results to the patient/family/caregiver, and care coordination (not separately reported). [facility]03-24-2025 Instructions* Patient Instructions* Harjeet Bernard MD - 12/21/2024 4:23 PM EDT - Continue taking Metamucil twice daily to help bulk up stool. - Take Gas-X (simethicone) 4 times a day to help reduce gas. - Take Lomotil as needed to manage diarrhea. - Drink at least 100 ounces of fluids daily, including water mixed with Powerade and Liquid IV, to maintain hydration and electrolyte balance. - Monitor your weight daily to track hydration status. - Follow up with Dr. Denise via virtual visit on the . - Weekly lab orders have been placed; complete lab tests as needed to monitor kidney function and electrolyte levels. documented in this encounterUniversity [facility]als [facility]03-24-2025 NoteHNO ID: [id number] Author: HARJEET BERNARD MD Service: ? Author Type: Physician Type: Progress Notes Filed: 12/21/2024 19:51 Note Text: This note was created using [employer]. Subjective Dov Burrows is a 54 year old male. Patient presents with: F/U 6 Month SUBJECTIVE: Dov Burrows is a 54 year old year old gentleman here today for 6 month follow up appointment for review of medical conditions. Triny is a 54-year-old male with a history of a total colectomy, presenting for a 6-month follow-up visit. Triny reports a recent hospitalization from 11/27 to 11/29 due to dehydration and acute kidney injury. He initially presented to the ER with flu-like symptoms, fatigue, and emesis, and was admitted for IV fluid treatment. He was discharged on 11/29, but has since experienced recurrent dehydration, necessitating multiple ER visits for IV fluids. He attributes his dehydration to increased ostomy output, which he describes as dumping like water. He has been attempting to maintain hydration by drinking approximately 100 ounces of fluids daily, including water, Powerade, and Liquid IV, and taking 4 electrolyte tablets daily. He also uses Metamucil BID to slow ostomy output. Despite these efforts, he continues to experience high ostomy output and frequent gas, which disrupts his sleep. He has been using Gas-X intermittently, but reports inconsistent relief. He denies current symptoms of dehydration, such as lightheadedness or dizziness, and is not actively monitoring his weight. He also reports a decreased appetite and occasional reluctance to eat. He is currently taking Protonix and Lomotil, and has a supply of ondansetron for nausea. He denies any symptoms of heartburn or reflux. He has a virtual follow-up appointment with his surgeon, Dr. Denise, on 12/28. Noted that his family is very involved in taking care of his medical issues. They made him go to the hospital to be evaluated both times and each time needed admitted. List of questions from daughter was brought in to go through--questions answered to his satisfaction. 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 dicyclomine (BENTYL) 20 mg tablet Take 20 mg by mouth four times daily. loperamide (IMODIUM) 2 mg cap(s) Take 2 mg by mouth two times a day as needed. omeprazole (PRILOSEC) 20 mg capsule Take 1 capsule by mouth once daily. ondansetron (ZOFRAN) 8 mg tablet Take 1 tablet by mouth every 12 hours as needed for nausea/vomiting. fluvoxaMINE ER (LUVOX CR) 150 mg capsule Take 1 capsule by mouth daily at bedtime. CPAP Continue Auto PAP @ 5-20 cm of water with humidification. Mask (per patient preference) optional chin strap (if indicated) , filters, tubing, humidifier and lifetime supplies. AMBROSE G47.33 buPROPion SR (WELLBUTRIN SR) 150 mg 12 hr tablet Take 1 tablet by mouth two times a day. ferrous sulfate 325 mg (65 mg iron) tablet Take 1 tablet by mouth every other day. multivitamin tablet Take 1 tablet by mouth once daily. ondansetron orally disintegrating (ZOFRAN ODT) 8 mg disintegrating tablet Take 8 mg by mouth every 8 hours as needed. (Patient not taking: Reported on 12/21/2024) potassium chloride 20 mEq TbER Take 20 mEq by mouth once daily. (Patient not taking: Reported on 12/21/2024) omeprazole (PRILOSEC) 20 mg capsule Take 1 capsule by mouth once daily. (Patient not taking: Reported on 12/04/2024) No current facility-administered medications for this visit. Review of Systems Objective BP 104/75 Pulse 103 Resp 16 Wt 92.9 kg (204 lb 12.9 oz) SpO2 97% BMI 27.02 kg/m? Last 5 Encounter Wt Readings: Date: Wt: 12/21/2024 92.9 kg (204 lb 12.9 oz) 12/04/2024 95 kg (209 lb 7 oz) 06/15/2024 100.7 kg (222 lb) 05/15/2024 105.6 kg (232 lb 12.9 oz) 10/08/2023 115.7 kg (255 lb) No waist measurement recorded Estimated body mass index is 27.02 kg/m? as calculated from the following: Height as of 06/15/24: 185.4 cm (6' 1). Weight as of this encounter: 92.9 kg (204 lb 12.9 oz). Last 5 Encounter BP Readings: Date: BP: 12/21/2024 104/75 12/04/2024 106/71 05/15/2024 102/62 10/08/2023 109/70 04/05/2023 118/84 Physical Exam Vitals reviewed. Constitutional: Appearance: Normal appearance. Eyes: Conjunctiva/sclera: Conjunctivae normal. Cardiovascular: Rate and Rhythm: Normal rate and regular rhythm. Heart sounds: Normal heart sounds. Pulmonary: Effort: Pulmonary effort is normal. Breath sounds: Normal breath sounds. Musculoskeletal: Right lower leg: No edema. Left lower leg: No edema. Skin: General: Skin is warm and dry. Neurological: Gen (more content not included)...[facility]03-24-2025 History of Present illness Narrative* Harjeet Bernard MD - 12/21/2024 3:42 PM EDT Images from the original note were not included. This note was created using [employer]. Subjective Dov Burrows is a 54 year old male. Patient presents with: F/U 6 Month SUBJECTIVE: Dov Burrows is a 54 year old year old gentleman here today for 6 month follow up appointment for review of medical conditions. Triny is a 54-year-old male with a history of a total colectomy, presenting for a 6-month follow-upvisit. Triny reports a recent hospitalization from 11/27 to 11/29 due to dehydration and acute kidney injury.He initially presented to the ER with flu-like symptoms, fatigue, and emesis, and was admitted for IV fluid treatment. He was discharged on 11/29, but has since experienced recurrent dehydration, necessitating multiple ER visits for IV fluids. He attributes his dehydration to increased ostomy output,which he describes as dumping like water. He has been attempting to maintain hydration by drinking approximately 100 ounces of fluids daily, including water, Powerade, and Liquid IV, and taking 4 electrolyte tablets daily. He also uses Metamucil BID to slow ostomy output. Despite these efforts, he continues to experience high ostomy output and frequent gas, which disrupts his sleep. He has beenusing Gas-X intermittently, but reports inconsistent relief. He denies current symptoms of dehydration, such as lightheadedness or dizziness, and is not actively monitoring his weight. He also reports a decreased appetite and occasional reluctance to eat. He is currently taking Protonix and Lomotil, and has a supply of ondansetron for nausea. He denies any symptoms of heartburn or reflux. He has a virtual follow-up appointment with his surgeon, Dr. Denise, on 12/28. Noted that his family is very involved in taking care of his medical issues. They made him go to the hospital to be evaluated both times and each time needed admitted. List of questions from daughtertabithas brought in to go through--questions answered to his satisfaction. 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 dicyclomine (BENTYL) 20 mg tablet Take 20 mg by mouth four times daily. loperamide (IMODIUM) 2 mg cap(s) Take 2 mg by mouth two times a day as needed. omeprazole (PRILOSEC) 20 mg capsule Take 1 capsule by mouth once daily. ondansetron (ZOFRAN) 8 mg tablet Take 1 tablet by mouth every 12 hours as needed for nausea/vomiting. fluvoxaMINE ER (LUVOX CR) 150 mg capsule Take 1 capsule by mouth daily at bedtime. CPAP Continue Auto PAP @ 5-20 cm of water with humidification. Mask (per patient preference) optional chin strap (if indicated) , filters, tubing, humidifier and lifetime supplies. AMBROSE G47.33 buPROPion SR (WELLBUTRIN SR) 150 mg 12 hr tablet Take 1 tablet by mouth two times a day. ferrous sulfate 325 mg (65 mg iron) tablet Take 1 tablet by mouth every other day. multivitamin tablet Take 1 tablet by mouth once daily. ondansetron orally disintegrating (ZOFRAN ODT) 8 mg disintegrating tablet Take 8 mg by mouth every 8 hours as needed. (Patient not taking: Reported on 12/21/2024) potassium chloride 20 mEq TbER Take 20 mEq by mouth once daily. (Patient not taking: Reported on 12/21/2024) omeprazole (PRILOSEC) 20 mg capsule Take 1 capsule by mouth once daily. (Patient not taking: Reported on 12/04/2024) No current facility-administered medications for this visit. Review of Systems Objective BP 104/75 Pulse 103 Resp 16 Wt 92.9 kg (204 lb 12.9 oz) SpO2 97% BMI 27.02 kg/m Last 5 Encounter Wt Readings: Date: Wt: 12/21/2024 92.9 kg (204 lb 12.9 oz) 12/04/2024 95 kg (209 lb 7 oz) 06/15/2024 100.7 kg (222 lb) 05/15/2024 105.6 kg (232 lb 12.9 oz) 10/08/2023 115.7 kg (255 lb) No waist measurement recorded Estimated body mass index is 27.02 kg/m as calculated from the following: Height as of 06/15/24: 185.4 cm (6' 1). Weight as of this encounter: 92.9 kg (204 lb 12.9 oz). Last 5 Encounter BP Readings: Date: BP: 12/21/2024 104/75 12/04/2024 106/71 05/15/2024 102/62 10/08/2023 109/70 04/05/2023 118/84 Physical Exam Vitals reviewed. Constitutional: Appearance: Normal appearance. Eyes: Conjunctiva/sclera: Conjunctivae normal. Cardiovascular: Rate and Rhythm: Normal rate and regular rhythm. Heart sounds: Normal heart sounds. Pulmonary: Effort: Pulmonary effort is normal. Breath sounds: Normal breath sounds. Musculoskeletal: Right lower leg: No edema. Left lower leg: No edema. Skin: General: Skin is warm and dry. Neurological: General: No focal deficit present. Mental Status: He is alert and oriented to person, place, and time. Psychiatric: Mood and Affect: Mood normal. Behavior: Behavior normal. Thought Content: Thought content normal. Judgment: Judgment normal. Latest Ref Rng 07/02/2022 07/16/2022 07/25/2022 01/04/2023 05/15/2024 12/04/2024 12/11/2024 12/12/2024 12/14/2024 WBC 3.70 - 11.00 k/uL 6.66 8.4 (E) 8.1 (E) 10.18 10.15 10.86 RBC 4.20 - 6.00 m/uL 3.03 (L) 4.68 4.67 3.86 (L) Hemoglobin 13.0 - 17.0 g/dL 8.2 (L) 9.4 ! (E) 9.5 ! (E) 13.5 14.2 11.9 (L) Hematocrit 39.0 - 51.0 % 28.2 (L) 31.7 ! (E) 31.0 ! (E) 43.0 43.2 37.1 (L) MCV 80.0 - 100.0 fL 93.1 91.9 92.5 96.1 MCH 26.0 - 34.0 pg 27.1 28.8 30.4 30.8 MCHC 30.5 - 36.0 g/dL 29.1 (L) 31.4 32.9 32.1 RDW-CV 11.5 - 15.0 % 17.6 (H) 14.5 14.8 14.3 Platelet Count 150 - 400 k/uL 1,020 (H) 825 ! (E) 721 ! (E) 509 (H) 393 389 MPV 9.0 - 12.7 fL 8.7 (L) 8.8 (L) 8.9 (L) 9.0 Neut% % 57.9 63.6 (E) 59.7 (E) 69.0 Abs Neut (ANC) 1.45 - 7.50 k/uL 3.86 5.3 (E) 4.8 (E) 7.03 Lymph% % 18.2 16.8 Abs Lymph 1.00 - 4.00 k/uL 1.21 1.71 Clinch% % 22.2 11.3 Abs Clinch <0.87 k/uL 1.48 (H) 1.15 (H) Eosin% % 1.1 2.5 (E) 4.6 (E) 2.1 Abs Eosin <0.46 k/uL 0.07 0.21 Baso% % 0.3 0.5 Abs Baso <0.11 k/uL <0.03 0.05 Immature Gran % % 0.3 0.3 IMMATURE GRANS (ABS) <0.10 k/uL <0.03 0.03 NRBC /100 WBC 0.0 0.0 Absolute nRBC <0.01 k/uL <0.01 <0.01 <0.01 0.02 (H) DTYPE Auto Auto Protein, Total 6.3 - 8.0 g/dL 7.8 7.5 7.8 7.7 Albumin 3.9 - 4.9 g/dL 3.0 (L) 4.1 4.2 4.2 Calcium 8.5 - 10.2 mg/dL 9.4 9.2 9.3 9.0 9.1 9.3 Bilirubin, Total 0.2 - 1.3 mg/dL 0.4 0.3 (E) 0.20 (E) 0.3 0.3 0.3 Alkaline Phosphatase 38 - 113 U/L 211 (H) 156 (E) 145 ! (E) 132 (H) 109 120 (H) AST 14 - 40 U/L 15 61 ! (E) 22 (E) 20 20 16 ALT 10 - 54 U/L 12 33 (E) 31 (E) 23 18 20 Glucose 74 - 99 mg/dL 110 (H) 99 94 112 (H) 105 (H) 124 (H) BUN 9 - 24 mg/dL 19 22 51 (H) 56 (H) 50 (H) 43 (H) Creatinine 0.73 - 1.22 mg/dL 0.58 (L) 0.81 (E) 0.69 ! (E) 1.15 1.10 2.18 (H) 2.63 (H) 2.50 (H) 2.51(H) Sodium 136 - 144 mmol/L 140 136 133 (L) 134 (L) 133 (L) 135 (L) Potassium 3.7 - 5.1 mmol/L 4.3 4.2 4.6 3.9 3.3 (L) 3.6 (L) Chloride 98 - 107 mmol/L 105 103 109 (H) 110 (H) 108 (H) 109 (H) CO2 22 - 30 mmol/L 24 20 (L) 11 (L) 9 (LL) 12 (L) 13 (L) Anion Gap 8 - 15 mmol/L 11 13 13 15 13 13 eGFR >=60 mL/min/1.73m 119 78 81 36 (L) 28 (L) 30 (L) 30 (L) Cholesterol, Total <200 mg/dL 200 (H) 150 103 Triglyceride <150 mg/dL 89 76 43 HDL Cholesterol >39 mg/dL 47 50 46 Non HDL Cholesterol <130 mg/dL 153 (H) 100 57 Fasting Time hrs 12 12 12 VLDL Cholesterol <30 mg/dL 18 15 9 TC:HDL Ratio <5.10 4.26 3.00 2.24 LDL Cholesterol <100 mg/dL 135 (H) 85 48 LDL:HDL Ratio <2.54 2.87 (H) 1.70 1.04 Bilirubin, Direct <0.2 mg/dL <0.2 Hemoglobin A1C 4.3 - 5.6 % 5.8 (H) Estimated Average Glucose mg/dL 120 CK 39 - 308 24 (L) 61 (E) 174 (E) Legend: (L) Low (H) High ! Abnormal (LL) Low Panic (E) External lab result Reviewed labs done at [facility] . Assessment and Plan # [place] (acute kidney injury) (HCC) (N17.9) # Acute renal insufficiency (N28.9) - Recent hospitalization due to severe dehydration secondary to viral gastroenteritis, leading to acute kidney injury. - Initial labs showed BUN 41 mg/dL, creatinine 2.23 mg/dL, sodium 132 mmol/L, potassium 2.8 mmol/L. - Recent labs indicate improvement: BUN trending down, creatinine stable at 2.6 mg/dL, sodium 135 mmol/L, potassium 3.6 mmol/L. - Emphasized importance of maintaining adequate hydration with electrolytes; advised to consume at least 100 ounces of fluid daily, including Powerade mixed with Liquid IV. - Ordered weekly labs to monitor renal function and electrolytes. - Discussed potential need for nephrology referral if renal function does not continue to improve. # Excessive gas (R14.3) - Experiencing significant gas production, affecting sleep and daily activities. - Recommended simethicone (Gas-X) 125 mg four times daily to reduce gas formation. - Advised to avoid lactose-containing products; consider lactose-free alternatives. # Ileostomy in place ([facility]) (Z93.2) - Increased output noted, likely contributing to dehydration. - Current management includes Metamucil twice daily to bulk stool and reduce output. - Prescribed dicyclomine 20 mg four times daily and Lomotil 2 tablets every 6 hours as needed to slow intestinal transit. - Follow-up with Dr. Denise scheduled for 12/28 to discuss ongoing management. # Recurrent major depressive disorder, in partial remission (HCC) (F33.41) Stable on current meds. Refills sent to [facility] pharmacy. I spent a total of 46 minutes on the date of the service which included [id number] patient care, completing clinical documentation, obtaining and/or reviewing separately obtained history, performing a medically appropriate examination, counseling and educating the patient/family/caregiver, ordering medications, tests, or procedures, independently interpreting results (not separately reported), and communicating results to the patient/family/caregiver. Harjeet Bernard MD documented in this encounterUniversity Hospitals [facility]03-20-2025 Telephone encounter Note * Telephone Encounter - Madisyn Barraza RN - 12/17/2024 10:37 AM EDT Aishwarya Director Dermatology with [employer] [facility] called to reports that the Pt has an RN Health Software Quality Engineer through [employer] Hany Pizano (female) ph. [phone]. She wanted to give provider this information in case she would need it. Put the information under the comment section under the Pt information. [facility]03-20-2025 Miscellaneous Notes* Telephone Encounter - Madisyn Barraza RN - 12/17/2024 10:37 AM EDT Aishwarya Director Dermatology with [employer] [facility] called to reports that the Pt has an RN Health Software Quality Engineer through [employer] Hany Bledsoe (female) ph. [phone]. She wanted to give provider this information in case she would need it. Put the information under the comment section under the Pt information. documented in this encounterUniversity Hospitals Geauga [facility] Center03-19-2025 Discharge summary Author [facility] Note Date/Time December 16, 2024 11: 27am [facility] Medical Records Department [address] [place] [address] Instructions for Home/Discharge Instructions 12/16/24 1118 MR#: [id number] Acct: [id number] Name: DOV BURROWS Rep #:[id number] : 1970 54 From: Mk Jc DO PCP: Dr. Harjeet Bernard MD Status:AD Libby SANNA Discharge Instructions Diet Discharge Diet: No restrictions DC O2, CPAP, BIPAP needs Home O2 Discharge instructions: No Dressing / Incision Discharge Activity: Return to Normal Activity Weight Bearing Status: Full weight bearing Follow Up Care Test Results: Test results from this visit will be discussed in further detail at your follow- up appointment, if applicable. Discharge Plan Admission Admit Date/Time: 12/15/24 10:18 Primary Reason for Your Visit: Acute kidney injury Attending Provider: Mk Jc Primary Care Provider: Harjeet Bernard Discharge Orders/Prescriptions Prescriptions: New diphenoxylate-atropine [Lomotil] 2.5-0.025 mg tablet 2 tab PO Q6H PRN (Reason: diarrhea) Qty: 30 0RF dicyclomine 20 mg tablet 20 mg PO .QID PRN (Reason: diarrhea) Qty: 20 0RF Continued bupropion HCl 150 mg tablet sustained-release 12 hr 150 mg PO DAILY Patient Comments: [NO ORIGINAL SIG] fluvoxamine 150 mg capsule,extended release 24hr 150 mg PO DAILY Patient Comments: [NO ORIGINAL SIG] ondansetron 8 mg tablet,disintegrating 8 mg PO Q8H PRN (Reason: nausea and vomiting) Qty: 20 0RF omeprazole 20 mg capsule,delayed release(DR/EC) 20 mg PO DAILY Daily Fiber (psyllium-aspart) 3 gram Powder In Packet 1 packet PO TID Qty: 54 0RF Discontinued loperamide 2 mg Capsule 2 mg PO Q12H PRN (Reason: DIARRHEA) Qty: 60 0RF Referrals / Follow Up: Harjeet Bernard MD [Primary Care Provider] - See Referral Note (as scheduled) Disposition Disposition (needs filled in before D/C Order can be placed): Home, Self Care 12/16/24 1127<Electronically signed by Mk Jc DO>Mk Jc DO CC: Dr. Harjeet Bernard MD ~ Signed [facility] Work Phone: 1(100) 179-660003-19-2025 Progress note [facility] Medical Records Department [address] [place] [address] Progress Note - Hospitalist 12/16/24 0004 MR#: [id number] Acct: [id number] Name: DOV BURROWS Rep #:[id number] : 1970 54 From: Antonette Perera MD PCP: Dr. Harjeet Bernard MD Status:ETHAN ISIDRO Location: [place]3 [id number] Hospitalist Note Patient with high ostomy output, noted [place] likely caused by this. Will obtain cdiff and enteric to be cautious per discussion with icu staff nurse. 12/16/24 0004 Cosigner Signature (if applicable): CC: ~ Signed [facility]03-19-2025 [facility] Medical Records Department [address] [place] [address] Discharge Summary 12/16/24 1128 MR#: [id number] Acct: [id number] Name: DOV BURROWS Rep #: [id number] : 1970 54 From: Mk Jc DO PCP: Dr. Harjeet Bernard MD Status:DIS SANNA Location: [place] [address] Providers Date of Admission: 12/15/24 Date of Discharge: 12/16/24 Primary Care Physician: Dr. Harjeet Bernard MD Reason For Visit: ACUTE KIDNEY INJURY Diagnosis Discharge Diagnosis (1) Acute kidney injury: Status: Acute Code(s): N17.9 - Acute kidney failure, unspecified Plan 1. Acute kidney injury-secondary to excessive ileostomy output-patient will be placed into observation status on MedSurg 3, he will be given IV fluids, labs will be monitored. Patient will be placed on Protonix 40 mg twice daily #2 high output ileostomy-patient will be given Imodium and Bentyl #3 hyponatremia-not clinically significant Total clinical time spent by myself addressing the patient's medical issues, reviewing all of his data, and collaborating with patient's care team: 70 minutes Medications at Discharge Home Medications bupropion HCl 150 mg tablet,12 hr sustained-release 150 mg PO DAILY 05/04/24 fluvoxamine 150 mg capsule,extended release 24 hr 150 mg PO DAILY 05/04/24 ondansetron 8 mg disintegrating tablet 8 mg PO Q8H PRN nausea and vomiting #20 tabs 05/04/24 omeprazole 20 mg capsule,delayed release 20 mg PO DAILY 11/26/24 psyllium husk (aspartame) 3 gram oral powder packet (Daily Fiber (psyllium- aspartame)) 1 packet PO TID #54 ea 11/29/24 dicyclomine 20 mg tablet 20 mg PO .QID PRN diarrhea #20 tabs 12/16/24 diphenoxylate-atropine 2.5 mg-0.025 mg tablet (Lomotil) 2 tab PO Q6H PRN diarrhea #30 tabs 12/16/24 Hospital Course Operations None Procedures None Summary of Care Provided Minutes Spent on Discharge: 31 Hospital Course: This 54-year-old white male was seen in the emergency room at [facility] for evaluation due to possible dehydration from high output from his ileostomy. He was told to come to the emergency room for evaluation by his PCP. Labs were obtained, patient's white blood cell count was slightly elevated at 11.3, hemoglobin was 12.7 and sodium was 132. BUN was 41 and creatinine was 2.23. Patient was given IV fluids in the emergency room, he was placed in observation status on MedSurg 3 and given IV fluids and Bentyl and Imodium. Patient was evaluated on 12/16/2024, labs were improved and the patient appeared to feel better. He had been contacted by his wheel filler by text but had not been given any definite instructions regarding his high output ostomy. On 12/16/2024, patient was seen and examined: On examination he appeared in good health and spirits. Vital signs as documented. Skin warm and dry and without overt rashes. Neck without JVD, neck was supple, trachea midline, thyroid was normal. Lungs clear bilaterally, normal air movement was noted. Heart exam notable for regular rhythm, normal sounds and absence of murmurs, rubs or gallops. Abdomen unremarkable and without evidence of organomegaly, masses, or abdominal aortic enlargement. Bowel sounds are present, abdomen is not distended. Ileostomy is present. Extremities nonedematous, no cyanosis was noted, no clubbing was noted. Neuro: Cranial nerves II through XII are grossly intact, no focal motor deficits were noted, sensation to light touch and pinprick intact, motor exam 5/5 throughout. Psych: Patient is alert and oriented x3, he does not appear anxious or depressed, he does not appear agitated. Patient was discharged home in stable condition on 12/16/2024 Weight / BMI Weight Weight: 92.5 kg Body Mass Index (BMI) 26.9 ABG / Lab / Microbiology Data 12/15/24 08:42 12/16/24 06:37 Laboratory: Laboratory Results - last 24 hr 12/16/24 06:37: Sodium 135, Potassium 3.3, Chloride 113 H, Carbon Dioxide 10.2 L, Anion Gap 12, BUN 32 H, Creatinine 1.83 H, Estim Creat Clear Calc 53.36, Est GFR (MDRD) Non-Af 44 L, BUN/Creatinine Ratio 17.7, Glucose 97, Calcium 8.5 Microbiology: Microbiology 12/16/24 02:40 Stool Enteric Bacteriology - Final 12/16/24 02:40 Stool Clostridioides difficile (PCR) - Final D/C Instructions Discharge Diet: No restrictions Weight Bearing Status: Full weight bearing DC O2, CPAP, BIPAP Needs Home O2 Discharge instructions: No Meaningful Use Info Meaningful Use Meaningful Use Diagnoses (Choose all that apply): None applicable Ischemic Stroke Statin Dosing Therapy Reference: STATIN DOSE THERAPY REFERENCE: * Patients > 75 years receive moderate or high dose statin therapy. * Patients 75 years or YOUNGER should receive HIGH intensity statin dose unless contraindicated. You will be required to document reason for non-treatment if statin sabine (more content not included)...[facility]03-19-2025 Discharge summary [facility] Medical Records Department [address] [place] [address] Instructions for Home/Discharge Instructions 12/16/24 1118 MR#: [id number] Acct: [id number] Name: DOV BURROWS Rep #:[id number] : 1970 54 From: Mk Jc DO PCP: Dr. Harjeet Bernard MD Status:AD M SANNA Discharge Instructions Diet Discharge Diet: No restrictions DC O2, CPAP, BIPAP needs Home O2 Discharge instructions: No Dressing / Incision Discharge Activity: Return to Normal Activity Weight Bearing Status: Full weight bearing Follow Up Care Test Results: Test results from this visit will be discussed in further detail at your follow- up appointment, if applicable. Discharge Plan Admission Admit Date/Time: 12/15/24 10:18 Primary Reason for Your Visit: Acute kidney injury Attending Provider: Mk Jc Primary Care Provider: Harjeet Bernard Discharge Orders/Prescriptions Prescriptions: New diphenoxylate-atropine [Lomotil] 2.5-0.025 mg tablet 2 tab PO Q6H PRN (Reason: diarrhea) Qty: 30 0RF dicyclomine 20 mg tablet 20 mg PO .QID PRN (Reason: diarrhea) Qty: 20 0RF Continued bupropion HCl 150 mg tablet sustained-release 12 hr 150 mg PO DAILY Patient Comments: [NO ORIGINAL SIG] fluvoxamine 150 mg capsule,extended release 24hr 150 mg PO DAILY Patient Comments: [NO ORIGINAL SIG] ondansetron 8 mg tablet,disintegrating 8 mg PO Q8H PRN (Reason: nausea and vomiting) Qty: 20 0RF omeprazole 20 mg capsule,delayed release(DR/EC) 20 mg PO DAILY Daily Fiber (psyllium-aspart) 3 gram Powder In Packet 1 packet PO TID Qty: 54 0RF Discontinued loperamide 2 mg Capsule 2 mg PO Q12H PRN (Reason: DIARRHEA) Qty: 60 0RF Referrals / Follow Up: Harjeet Bernard MD [Primary Care Provider] - See Referral Note (as scheduled) Disposition Disposition (needs filled in before D/C Order can be placed): Home, Self Care 12/16/24 1127Mk Jc DO CC: Dr. Harjeet Bernard MD ~ Signed [facility]03-19-2025 Progress note Author [facility] Note Date/Time December 16, 2024 1:2 3pm [facility] Medical Records Department [address] [place] [address] Progress Note - Hospitalist 12/16/24 0004 MR#: [id number] Acct: [id number] Name: DOV BURROWS Rep #:[id number] : 1970 54 From: Antonette Perera MD PCP: Dr. Harjeet Bernard MD Status:ETHAN ISIDRO Location: [place] [facility]662-2 Hospitalist Note Patient with high ostomy output, noted [place] likely caused by this. Will obtain cdiff and enteric to be cautious per discussion with icu staff nurse. 12/16/24 0004 <Electronically signed by Antonette Perera MD> Cosigner Signature (if applicable): CC: ~ Signed [facility] Work Phone: 1(330) 569-129703-18-2025 History and physical note Author [facility] Note Date/Time December 15, 2024 4:4 8pm [facility] Medical Records Department [address] [place] [address] H&P Exam - Hospitalist 12/15/24 1633 MR#: [id number] Acct: [id number] Name: DOV BURROWS Katelyn Rep #:[id number] : 1970 54 From: Mk Jc DO PCP: Dr. Harjeet Bernard MD Status:AD M SANNA Location: MS3 JG296-3 HPI - General General Date of Admission: 12/15/24 Date of Service: 12/15/24 Chief Complaint: Need for IV fluids HPI Lizette BURROWS, is a 54 M who presents to the emergency room at [facility] for evaluation due to possible dehydration from high output from his ileostomy. He was told to come to the emergency room for evaluation by his PCP. 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 He was toldthe cancer is in remission currently. Ileostomy was placed in 2021. Labs were obtained, patient's white blood cell count was slightly elevated at 11.3, hemoglobin was 12.7 sodium was 132, BUN was 41 and creatinine was 2.23. Patient's glucose was 106. Patient was given IV fluids in the emergency room, he will be placed in observation status on MedSurg 3 and be given IV fluids, labs will be rechecked. Patient will be placed on Bentyl and Imodium to see if this will decrease his ileostomy output. [facility] Medical History Cancer of appendix Ileostomy present Acute appendicitis Home Medications ?Medication ?Instructions ?Recorded ?Last Taken ?Type bupropion HCl 150 mg tablet,12 hr 150 mg PO DAILY 02/2012/15/24 History sustained-release fluvoxamine 150 mg 150 mg PO DAILY 05/04/24 History capsule,extended release 24 hr ondansetron 8 mg disintegrating 8 mg PO Q8H PRN nausea and 05/04/24 Unknown Rx tablet vomiting #20 tabs omeprazole 20 mg capsule,delayed 20 mg PO DAILY 12/15/24 History release loperamide 2 mg capsule 2 mg PO Q12H PRN DIARRHEA #6 0 caps 11/29/24 Unknown Rx psyllium husk (aspartame) 3 gram 1 packet PO TID #54 e a 11/29/24 12/15/24 Rx oral powder packet (Daily Fiber (psyllium-aspartame)) Allergy/AdvReac Type Severity Reaction Status Date / Time No Known Allergies Allergy Verified 11/26/24 14:44 Family History (Updated 11/26/24 @ 18:[address] Ibrahima Doan, DO) Other VTE (venous thromboembolism) Surgical History S/P splenectomy H/O colectomy Social History household members: spouse housing: house Smoking Status: Never smoker ROS Constitutional Constitutional: Denies anorexia, change in weight, fatigue, fever(s), malaise, night sweats or weakness Eyes Eyes: Denies blurry vision, change in vision, discharge from eye(s) or eye pain Cardiovascular Cardiovascular: Denies chest pain, claudication, edema or palpitations Respiratory/Chest Respiratory/Chest: Denies cough, hemoptysis, shortness of breath at rest or shortness of breath with exertion Gastrointestinal Gastrointestinal: Denies abdominal pain, constipation, diarrhea, hematemesis, hematochezia, melena, nausea or vomiting Genitourinary Genitourinary: Reports other Details: Increased output from ileostomy ; Denies dysuria, hematuria, urinary frequency, urinary hesitancy, urinary incontinence or urinary urgency Musculoskeletal Musculoskeletal: Denies back pain, joint pain, joint stiffness, joint swelling, myalgias or neck pain Neurologic Neurologic: Denies abnormal gait, abnormal speech, dizziness, focal weakness, headache(s), loss of vision, numbness, other visual disturbances, paresthesias, syncope or tingling Psychiatric Psychiatric: Denies anxiety, cognitive impairment, depression, irritability, mood swings or suicidal ideation Endocrine Endocrinology: Denies change in body appearance, cold intolerance, excessive sweating, heat intolerance, polydipsia or polyuria Hematologic/Lymphatic Hematologic/Lymphatic: Denies none, anemia, easy bleeding, easy bruising or lymphadenopathy Allergic/Immunologic Allergic/Immunologic: Denies rhinitis, urticaria, eczemia or asthma Vital Signs Vital Signs Vital Signs: 12/15/24 08:11 12/15/24 08:29 12/15/24 09:48 Temperature 98 F 98.7 F Temperature Source Temporal Pulse Rate 88 59 L Respiratory Rate 14 16 Respiratory Effort Normal Respiratory Pattern Normal Blood Pressure 119/76 129/78 H Blood Pressure Mean 90 95 Blood Pressure Source Blood Pressure Position Blood Pressure Location Pulse Ox 98 99 Oxygen Delivery Method Room Air 12/15/24 10:11 12/15/24 11:54 12/15/24 14:00 Temperature 98.0 F Temperature Source Oral Pulse Rate 89 68 Respiratory Rate 14 18 Respiratory Effort Respiratory Pattern Blood Pressure 126/76 H 112/76 Blood Pressure Mean 92 88 Blood Pressure Source Monitor Blood Pressure Position Semi-Fowlers Blood Pressure Location Right Arm Pulse Ox 98 100 Oxygen Delivery Method Room Air Room Air CPAP Weight Weight: 92.5 kg Body Mass Index (BMI) 26.9 Physical Exam Const alert, oriented x3 and no apparent distress General Appearance: cooperative, well kempt and well developed Orientation / Consciousness: awake, oriented to person, oriented to place and oriented to time HEENT normocephalic HEENT Narrative: Mucous membranes appear dry Eyes PERRL, EOMs intact bilaterally and conjunctivae normal Neck supple, no JVD, thyroid normal and no carotid bruits General: trachea midline Resp normal respiratory effort, no retractions, no use of accessory muscles and clearto auscultation bilaterally Auscultation: Negative for rales, rhonchi or wheezes Cardio regular rate, regular rhythm, S1 normal heart sound, S2 normal heart sound, no murmurs, no rub and no gallops GI normal to inspection, nondistended, normoactive bowel sounds, soft to palpation,non-tender and non-distended GI Narrative: Ileostomy is present over the right lower abdominal quadrant Extremity no clubbing, cyanosis or edema Skin no rashes or lesions noted General Skin Exam: no breakdown Neuro oriented x3, CN's II-XII intact bilaterally, moves all extremities, no focal motor deficits and no sensory deficits noted Sensorium / Orientation: awake and alert Speech: speech normal Psych affect normal Results Lab / Micro Data 12/15/24 08:42 12/15/24 08:42 Labs: Laboratory Results - last 24 hr 12/15/24 08:42: WBC 11.3 H, RBC 4.08 L, Hgb 12.7 L, Hct 38.9 L, MCV 95.3 H, MCH 31.1, MCHC 32.6, RDW Std Deviation 52.6 H, RDW Coeff of Dirk 15.2 H, Plt Count 393, MPV 8.6, Immature Gran % (Auto) 0.400, Neut % (Auto) 79.6 H, Lymph % (Auto)7.6 L, Clinch % (Auto) 10.9 H, Eos % (Auto) 1.2, Baso % (Auto) 0.3, Absolute Neuts(auto) 9.0 H, Absolute Lymphs (auto) 0.86, Nucleated RBC % 0.2, Sodium 132 L, Potassium 4.0, Chloride 107, Carbon Dioxide 10.4 L, Anion Gap 14, BUN 41 H, Creatinine 2.23 H, Estim Creat Clear Calc 43.79 L, Est GFR (MDRD) Non-Af 35 L, BUN/Creatinine Ratio 18.2, Glucose 106 H, Calcium 9.1 Assessment & Plan Assessment/Plan (1) Acute kidney injury: PLAN: Plan 1. Acute kidney injury-secondary to excessive ileostomy output-patient will beplaced into observation status on MedSurg 3, he will be given IV fluids, labs will be monitored. Patient will be placed on Protonix 40 mg twice daily #2 high output ileostomy-patient will be given Imodium and Bentyl #3 hyponatremia-not clinically significant Total clinical time spent by myself addressing the patient's medical issues, reviewing all of his data, and collaborating with patient's care team: 70 minutes Charges/Coding Visit Charges Inpatient E&M: 90633 Init Hosp L3 12/15/24 1640 <Electronically signed by Mk Jc DO> Cosigner Signature (if applicable): CC: Dr. Harjeet Bernard MD; Dr. Mk Jc DO~ Signed [facility] Work Phone: 1(649) 420-746203-18-2025 Discharge summary Author Ibrahima Camarena [facility] Note Date/Time December 15, 2024 3:3 6pm [facility] Medical Records Department [address] [place] [address] Emergency Department Summary 12/15/24 MR#: [id number] Acct: [id number] Name: DOV BURROWS Rep #:[id number] : 1970 54 From: Ibrahima Mcgowan PCP: Dr. Harjeet Bernard MD Status:ETHAN ISIDRO Location: [place] [address] HPI History of Present Illness Chief Complaint: General Illness Informant: patient Onset/Context/Timing Onset: Days Context: Gradual Onset Timing: Continuous Worsened by: Nothing Relieved by: Nothing Narrative Narrative: Patient presents with possible dehydration that has been getting worse over the past few days. Patient was recently admitted to the hospital for dehydration and acute kidney injury. Patient was feeling better and was discharged. Patient has been having increased output through his ileostomy. Patient has been following with his primary care physician who noted worsening of his renal function. Patient states he is drinking plenty of fluids including Gatorade, water, and liquid IV. Patient denies any pain. Patient denies any nausea or vomiting. [facility] Medical History Cancer of appendix Ileostomy present Acute appendicitis Home Medications ?Medication ?Instructions ?Recorded ?Last Taken ?Type bupropion HCl 150 mg tablet,12 hr 150 mg PO DAILY 02/2012/15/24 History sustained-release fluvoxamine 150 mg 150 mg PO DAILY 05/04/24 History capsule,extended release 24 hr ondansetron 8 mg disintegrating 8 mg PO Q8H PRN nausea and 05/04/24 Unknown Rx tablet vomiting #20 tabs omeprazole 20 mg capsule,delayed 20 mg PO DAILY 12/15/24 History release loperamide 2 mg capsule 2 mg PO Q12H PRN DIARRHEA #6 0 caps 11/29/24 Unknown Rx psyllium husk (aspartame) 3 gram 1 packet PO TID #54 e a 11/29/24 12/15/24 Rx oral powder packet (Daily Fiber (psyllium-aspartame)) Allergy/AdvReac Type Severity Reaction Status Date / Time No Known Allergies Allergy Verified 11/26/24 14:44 Family History (Updated 11/26/24 @ 18:[address] Ibrahima Doan DO) Other VTE (venous thromboembolism) Surgical History S/P splenectomy H/O colectomy Social History household members: spouse housing: house Smoking Status: Never smoker ROS ROS ED Constitutional Constitutional ED: Denies chills or fever(s) Eyes Eyes: Denies blurry vision or change in vision ENT ENT ED: Denies rhinorrhea or sore throat Cardiovascular Cardiovascular: Denies chest pain or palpitations Respiratory/Chest Respiratory/Chest: Denies cough or dyspnea Gastrointestinal Gastrointestinal: Reports diarrhea; Denies abdominal pain, nausea or vomiting Genitourinary Genitourinary ED: Denies dysuria or hematuria Musculoskeletal Musculoskeletal: Denies back pain or neck pain Integumentary Denies abscess or rash Neurologic Neurologic: Denies headache(s) or weakness Allergic/Immunologic Allergic/Immunologic ED: Denies mouth swelling or urticaria EXAM Physical Exam Const Vital Signs: 12/15/24 08:11 12/15/24 08:29 12/15/24 09:48 Temperature 98 F 98.7 F Temperature Source Temporal Pulse Rate 88 59 L Respiratory Rate 14 16 Respiratory Effort Normal Respiratory Pattern Normal Blood Pressure 119/76 129/78 H Blood Pressure Mean 90 95 Pulse Ox 98 99 Oxygen Delivery Method Room Air Positive well nourished and well developed General Appearance ED: well developed and NAD HEENT Reports moist mucous membranes Neck supple and no JVD Resp normal respiratory effort and clear to auscultation bilaterally Cardio regular rate and regular rhythm GI non-tender and non-distended Auscultation: normoactive bowel sounds Palpation: soft Neuro oriented x3, CN's II-XII intact bilaterally and no sensory deficits noted Sensorium / Orientation: alert Psych mental status grossly normal MDM MDM MDM Narrative Medical decision making narrative: Differential diagnosis includes dehydration, electrolyte abnormality, infection,and acute kidney injury. CBC will be obtained to assess for leukocytosis and anemia. Basic metabolic profile will be obtained to assess for electrolyte abnormality and renal function. History & Record Review Additional record(s) reviewed:: Prior inpatient record, Prior ED visit and Priorlabs Lab Data Attestation: I reviewed the patient's lab results. Lab results narrative: CBC was reviewed. There is a slight leukocytosis of 11.3. Hemoglobin was 12.7 and hematocrit was 38.9. Platelets were normal. Basic metabolic profile was reviewed. BUN was 41 and creatinine was 2.23. These are increased from previous results. Labs: Laboratory Results - last 24 hr 12/15/24 08:42 WBC 11.3 H RBC 4.08 L Hgb 12.7 L Hct 38.9 L MCV 95.3 H MCH 31.1 MCHC 32.6 RDW Std Deviation 52.6 H RDW Coeff of Dirk 15.2 H Plt Count 393 MPV 8.6 Immature Gran % (Auto) 0.400 Neut % (Auto) 79.6 H Lymph % (Auto) 7.6 L Clinch % (Auto) 10.9 H Eos % (Auto) 1.2 Baso % (Auto) 0.3 Absolute Neuts (auto) 9.0 H Absolute Lymphs (auto) 0.86 Nucleated RBC % 0.2 Sodium 132 L Potassium 4.0 Chloride 107 Carbon Dioxide 10.4 L Anion Gap 14 BUN 41 H Creatinine 2.23 H Estim Creat Clear Calc 43.79 L Est GFR (MDRD) Non-Af 35 L BUN/Creatinine Ratio 18.2 Glucose 106 H Calcium 9.1 Management Discussion w/another healthcare provider: Hospitalist (Dr. Jc) Treatment and Re-Evaluation :: Patient was given IV fluids. Patient was advised of his findings. Because of the increase in BUN and creatinine, I recommended admission to the hospital. Case was discussed with the hospitalist. He will admit the patient for observation. Patient understood and was agreeable with the plan. All questionswere answered. Discharge Plan Triage Chief Complaint: General Illness ED Provider: Ibrahima Camarena Dx/Rx/DC Orders Clinical Impression: Acute kidney injury, Dehydration Prescriptions: No Action bupropion HCl 150 mg tablet sustained-release 12 hr 150 mg PO DAILY Patient Comments: [NO ORIGINAL SIG] fluvoxamine 150 mg capsule,extended release 24hr 150 mg PO DAILY Patient Comments: [NO ORIGINAL SIG] ondansetron 8 mg tablet,disintegrating 8 mg PO Q8H PRN (Reason: nausea and vomiting) Qty: 20 0RF omeprazole 20 mg capsule,delayed release(DR/EC) 20 mg PO DAILY Daily Fiber (psyllium-aspart) 3 gram Powder In Packet 1 packet PO TID Qty: 54 0RF loperamide 2 mg Capsule 2 mg PO Q12H PRN (Reason: DIARRHEA) Qty: 60 0RF Primary Care Provider: Harjeet Bernard Referrals: Harjeet Bernard MD [Primary Care Provider] - Print Language: Prydeinig Disposition Disposition: Acute Care Hospital [facility] What to do if you have Problems For any increased pain, shortness of breath, bleeding, nausea or vomiting, chestpain, or any unexpected problems, contact your Primary Care Provider. Call [facility] ([phone]) or report to the closest Emergency Room. Call 911 if necessary. 12/15/24 1536 <Electronically signed by Ibrahima Camarena DO> Cosigner Signature (if applicable): CC: Dr. Harjeet Bernard MD ~ Signed [facility] Work Phone: 1(595) 415-885003-18-2025 History and physical note [facility] Medical Records Department [address] [place] [address] H&P Exam - Hospitalist 12/15/24 1633 MR#: [id number] Acct: [id number] Name: DOV BURROWS Rep #:[id number] : 1970 54 From: Mk Jc DO PCP: Dr. Harjeet Bernard MD Status:AD M [facility] HPI - General General Date of Admission: 12/15/24 Date of Service: 12/15/24 Chief Complaint: Need for IV fluids HPI Narrative DOV BURROWS, is a 54 M who presents to the emergency room at [facility] for evaluation due to possible dehydration from high output from his ileostomy. He was told to come to the emergency room for evaluation by his PCP. 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 He was toldthe cancer is in remission currently. Ileostomy was placed in 2021. Labs were obtained, patient's white blood cell count was slightly elevated at 11.3, hemoglobin was 12.7 sodium was 132, BUN was 41 and creatinine was 2.23. Patient's glucose was 106. Patient was given IV fluids in the emergency room, he will be placed in observation status on MedSurg 3 and be given IV fluids, labs will be rechecked. Patient will be placed on Bentyl and Imodium to see if this will decrease his ileostomy output. [facility] Medical History Cancer of appendix Ileostomy present Acute appendicitis Home Medications ?Medication ?Instructions ?Recorded ?Last Taken ?Type bupropion HCl 150 mg tablet,12 hr 150 mg PO DAILY 02/2012/15/24 History sustained-release fluvoxamine 150 mg 150 mg PO DAILY 05/04/24 History capsule,extended release 24 hr ondansetron 8 mg disintegrating 8 mg PO Q8H PRN nausea and 05/04/24 Unknown Rx tablet vomiting #20 tabs omeprazole 20 mg capsule,delayed 20 mg PO DAILY 12/15/24 History release loperamide 2 mg capsule 2 mg PO Q12H PRN DIARRHEA #6 0 caps 11/29/24 Unknown Rx psyllium husk (aspartame) 3 gram 1 packet PO TID #54 e a 11/29/24 12/15/24 Rx oral powder packet (Daily Fiber (psyllium-aspartame)) Allergy/AdvReac Type Severity Reaction Status Date / Time No Known Allergies Allergy Verified 11/26/24 14:44 Family History (Updated 11/26/24 @ 18:[address] Ibrahima Doan DO) Other VTE (venous thromboembolism) Surgical History S/P splenectomy H/O colectomy Social History household members: spouse housing: house Smoking Status: Never smoker ROS Constitutional Constitutional: Denies anorexia, change in weight, fatigue, fever(s), malaise, night sweats or weakness Eyes Eyes: Denies blurry vision, change in vision, discharge from eye(s) or eye pain Cardiovascular Cardiovascular: Denies chest pain, claudication, edema or palpitations Respiratory/Chest Respiratory/Chest: Denies cough, hemoptysis, shortness of breath at rest or shortness of breath with exertion Gastrointestinal Gastrointestinal: Denies abdominal pain, constipation, diarrhea, hematemesis, hematochezia, melena,nausea or vomiting Genitourinary Genitourinary: Reports other Details: Increased output from ileostomy ; Denies dysuria, hematuria, urinary frequency, urinary hesitancy, urinary incontinence or urinary urgency Musculoskeletal Musculoskeletal: Denies back pain, joint pain, joint stiffness, joint swelling, myalgias or neck pain Neurologic Neurologic: Denies abnormal gait, abnormal speech, dizziness, focal weakness, headache(s), loss of vision, numbness, other visual disturbances, paresthesias, syncope or tingling Psychiatric Psychiatric: Denies anxiety, cognitive impairment, depression, irritability, mood swings or suicidal ideation Endocrine Endocrinology: Denies change in body appearance, cold intolerance, excessive sweating, heat intolerance, polydipsia or polyuria Hematologic/Lymphatic Hematologic/Lymphatic: Denies none, anemia, easy bleeding, easy bruising or lymphadenopathy Allergic/Immunologic Allergic/Immunologic: Denies rhinitis, urticaria, eczemia or asthma Vital Signs Vital Signs Vital Signs: 12/15/24 08:11 12/15/24 08:29 12/15/24 09:48 Temperature 98 F 98.7 F Temperature Source Temporal Pulse Rate 88 59 L Respiratory Rate 14 16 Respiratory Effort Normal Respiratory Pattern Normal Blood Pressure 119/76 129/78 H Blood Pressure Mean 90 95 Blood Pressure Source Blood Pressure Position Blood Pressure Location Pulse Ox 98 99 Oxygen Delivery Method Room Air 12/15/24 10:11 12/15/24 11:54 12/15/24 14:00 Temperature 98.0 F Temperature Source Oral Pulse Rate 89 68 Respiratory Rate 14 18 Respiratory Effort Respiratory Pattern Blood Pressure 126/76 H 112/76 Blood Pressure Mean 92 88 Blood Pressure Source Monitor Blood Pressure Position Semi-Fowlers Blood Pressure Location Right Arm Pulse Ox 98 100 Oxygen Delivery Method Room Air Room Air CPAP Weight Weight: 92.5 kg Body Mass Index (BMI) 26.9 Physical Exam Const alert, oriented x3 and no apparent distress General Appearance: cooperative, well kempt and well developed Orientation / Consciousness: awake, oriented to person, oriented to place and oriented to time HEENT normocephalic HEENT Narrative: Mucous membranes appear dry Eyes PERRL, EOMs intact bilaterally and conjunctivae normal Neck supple, no JVD, thyroid normal and no carotid bruits General: trachea midline Resp normal respiratory effort, no retractions, no use of accessory muscles and clearto auscultation bilaterally Auscultation: Negative for rales, rhonchi or wheezes Cardio regular rate, regular rhythm, S1 normal heart sound, S2 normal heart sound, no murmurs, no rub and no gallops GI normal to inspection, nondistended, normoactive bowel sounds, soft to palpation,non-tender and non-distended GI Narrative: Ileostomy is present over the right lower abdominal quadrant Extremity no clubbing, cyanosis or edema Skin no rashes or lesions noted General Skin Exam: no breakdown Neuro oriented x3, CN's II-XII intact bilaterally, moves all extremities, no focal motor deficits and no sensory deficits noted Sensorium / Orientation: awake and alert Speech: speech normal Psych affect normal Results Lab / Micro Data 12/15/24 08:42 12/15/24 08:42 Labs: Laboratory Results - last 24 hr 12/15/24 08:42: WBC 11.3 H, RBC 4.08 L, Hgb 12.7 L, Hct 38.9 L, MCV 95.3 H, MCH 31.1, MCHC 32.6, RDW Std Deviation 52.6 H, RDW Coeff of Dirk 15.2 H, Plt Count 393, MPV 8.6, Immature Gran % (Auto) 0.400, Neut % (Auto) 79.6 H, Lymph % (Auto)7.6 L, Clinch % (Auto) 10.9 H, Eos % (Auto) 1.2, Baso % (Auto) 0.3, Absolute Neuts(auto) 9.0 H, Absolute Lymphs (auto) 0.86, Nucleated RBC % 0.2, Sodium 132 L, Potassium 4.0, Chloride 107, Carbon Dioxide 10.4 L, Anion Gap 14, BUN 41 H, Creatinine 2.23 H, Estim Creat Clear Calc 43.79 L, Est GFR (MDRD) Non-Af 35 L, BUN/Creatinine Ratio 18.2, Glucose 106 H, Calcium 9.1 Assessment & Plan Assessment/Plan (1) Acute kidney injury: PLAN: Plan 1. Acute kidney injury-secondary to excessive ileostomy output-patient will beplaced into observation status on MedSurg 3, he will be given IV fluids, labs will be monitored. Patient will be placed on Protonix 40 mg twice daily #2 high output ileostomy-patient will be given Imodium and Bentyl #3 hyponatremia-not clinically significant Total clinical time spent by myself addressing the patient's medical issues, reviewing all of his data, and collaborating with patient's care team: 70 minutes Charges/Coding Visit Charges Inpatient E&M: 95678 Init Hosp L3 12/15/24 1648 Cosigner Signature (if applicable): CC: Dr. Harjeet Bernard MD; Dr. Mk Jc DO~ Signed [facility]03-18-2025 Discharge summary [facility] Medical Records Department [address] [place] [address] Emergency Department Summary 12/15/24 MR#: [id number] Acct: [id number] Name: DOV BURROWS Rep #:[id number] : 1970 54 From: Ibrahima Mcgowan PCP: Dr. Harjeet Bernard MD Status:AD M SANNA Location: MS3 PI840-2 HPI History of Present Illness Chief Complaint: General Illness Informant: patient Onset/Context/Timing Onset: Days Context: Gradual Onset Timing: Continuous Worsened by: Nothing Relieved by: Nothing Narrative Narrative: Patient presents with possible dehydration that has been getting worse over the past few days. Patient was recently admitted to the hospital for dehydration and acute kidney injury. Patient was feeling better and was discharged. Patient has been having increased output through his ileostomy. Patient has been following with his primary care physician who noted worsening of his renal function. Patie nt states he is drinking plenty of fluids including Gatorade, water, and liquid IV. Patient denies any pain. Patient denies any nausea or vomiting. PFSH PFS Medical History Cancer of appendix Ileostomy present Acute appendicitis Home Medications ?Medication ?Instructions ?Recorded ?Last Taken ?Type bupropion HCl 150 mg tablet,12 hr 150 mg PO DAILY 02/2012/15/24 History sustained-release fluvoxamine 150 mg 150 mg PO DAILY 05/04/24 History capsule,extended release 24 hr ondansetron 8 mg disintegrating 8 mg PO Q8H PRN nausea and 05/04/24 Unknown Rx tablet vomiting #20 tabs omeprazole 20 mg capsule,delayed 20 mg PO DAILY 12/15/24 History release loperamide 2 mg capsule 2 mg PO Q12H PRN DIARRHEA #6 0 caps 11/29/24 Unknown Rx psyllium husk (aspartame) 3 gram 1 packet PO TID #54 e a 11/29/24 12/15/24 Rx oral powder packet (Daily Fiber (psyllium-aspartame)) Allergy/AdvReac Type Severity Reaction Status Date / Time No Known Allergies Allergy Verified 11/26/24 14:44 Family History (Updated 11/26/24 @ 18:[address] Ibrahima Doan DO) Other VTE (venous thromboembolism) Surgical History S/P splenectomy H/O colectomy Social History household members: spouse housing: house Smoking Status: Never smoker ROS ROS ED Constitutional Constitutional ED: Denies chills or fever(s) Eyes Eyes: Denies blurry vision or change in vision ENT ENT ED: Denies rhinorrhea or sore throat Cardiovascular Cardiovascular: Denies chest pain or palpitations Respiratory/Chest Respiratory/Chest: Denies cough or dyspnea Gastrointestinal Gastrointestinal: Reports diarrhea; Denies abdominal pain, nausea or vomiting Genitourinary Genitourinary ED: Denies dysuria or hematuria Musculoskeletal Musculoskeletal: Denies back pain or neck pain Integumentary Denies abscess or rash Neurologic Neurologic: Denies headache(s) or weakness Allergic/Immunologic Allergic/Immunologic ED: Denies mouth swelling or urticaria EXAM Physical Exam Const Vital Signs: 12/15/24 08:11 12/15/24 08:29 12/15/24 09:48 Temperature 98 F 98.7 F Temperature Source Temporal Pulse Rate 88 59 L Respiratory Rate 14 16 Respiratory Effort Normal Respiratory Pattern Normal Blood Pressure 119/76 129/78 H Blood Pressure Mean 90 95 Pulse Ox 98 99 Oxygen Delivery Method Room Air Positive well nourished and well developed General Appearance ED: well developed and NAD HEENT Reports moist mucous membranes Neck supple and no JVD Resp normal respiratory effort and clear to auscultation bilaterally Cardio regular rate and regular rhythm GI non-tender and non-distended Auscultation: normoactive bowel sounds Palpation: soft Neuro oriented x3, CN's II-XII intact bilaterally and no sensory deficits noted Sensorium / Orientation: alert Psych mental status grossly normal MDM MDM MDM Narrative Medical decision making narrative: Differential diagnosis includes dehydration, electrolyte abnormality, infection,and acute kidney injury. CBC will be obtained to assess for leukocytosis and anemia. Basic metabolic profile will be obtained to assess for electrolyte abnormality and renal function. History & Record Review Additional record(s) reviewed:: Prior inpatient record, Prior ED visit and Priorlabs Lab Data Attestation: I reviewed the patient's lab results. Lab results narrative: CBC was reviewed. There is a slight leukocytosis of 11.3. Hemoglobin was 12.7 and hematocrit was 38.9. Platelets were normal. Basic metabolic profile was reviewed. BUN was 41 and creatinine was 2.23.These are increased from previous results. Labs: Laboratory Results - last 24 hr 12/15/24 08:42 WBC 11.3 H RBC 4.08 L Hgb 12.7 L Hct 38.9 L MCV 95.3 H MCH 31.1 MCHC 32.6 RDW Std Deviation 52.6 H RDW Coeff of Dirk 15.2 H Plt Count 393 MPV 8.6 Immature Gran % (Auto) 0.400 Neut % (Auto) 79.6 H Lymph % (Auto) 7.6 L Clinch % (Auto) 10.9 H Eos % (Auto) 1.2 Baso % (Auto) 0.3 Absolute Neuts (auto) 9.0 H Absolute Lymphs (auto) 0.86 Nucleated RBC % 0.2 Sodium 132 L Potassium 4.0 Chloride 107 Carbon Dioxide 10.4 L Anion Gap 14 BUN 41 H Creatinine 2.23 H Estim Creat Clear Calc 43.79 L Est GFR (MDRD) Non-Af 35 L BUN/Creatinine Ratio 18.2 Glucose 106 H Calcium 9.1 Management Discussion w/another healthcare provider: Hospitalist (Dr. Jc) Treatment and Re-Evaluation :: Patient was given IV fluids. Patient was advised of his findings. Because of the increase in BUN and creatinine, I recommended admission to the hospital. Case was discussed with the hospitalist. He will admit the patient for observation. Patient understood and was agreeable with the plan. All questionswere answered. Discharge Plan Triage Chief Complaint: General Illness ED Provider: Ibrahima Camarena Dx/Rx/DC Orders Clinical Impression: Acute kidney injury, Dehydration Prescriptions: No Action bupropion HCl 150 mg tablet sustained-release 12 hr 150 mg PO DAILY Patient Comments: [NO ORIGINAL SIG] fluvoxamine 150 mg capsule,extended release 24hr 150 mg PO DAILY Patient Comments: [NO ORIGINAL SIG] ondansetron 8 mg tablet,disintegrating 8 mg PO Q8H PRN (Reason: nausea and vomiting) Qty: 20 0RF omeprazole 20 mg capsule,delayed release(DR/EC) 20 mg PO DAILY Daily Fiber (psyllium-aspart) 3 gram Powder In Packet 1 packet PO TID Qty: 54 0RF loperamide 2 mg Capsule 2 mg PO Q12H PRN (Reason: DIARRHEA) Qty: 60 0RF Primary Care Provider: Harjeet Bernard Referrals: Harjeet Bernard MD [Primary Care Provider] - Print Language: Prydeinig Disposition Disposition: Acute Care Hospital [facility] What to do if you have Problems For any increased pain, shortness of breath, bleeding, nausea or vomiting, chestpain, or any unexpected problems, contact your Primary Care Provider. Call [facility] ([phone]) or report tothe closest Emergency Room. Call 911 if necessary. 12/15/24 1536 Cosigner Signature (if applicable): CC: Dr. Harjeet Bernard MD ~ Signed [facility]03-17-2025 Telephone encounter Note* Telephone Encounter - Zhanna Wagner LPN - 12/14/2024 2:46 PM EDT Two encounter open on patient. Attempted to contact patient in the other encounter [facility]03-17-2025 Miscellaneous Notes* Telephone Encounter - Zhanna Wagner LPN - 12/14/2024 2:46 PM EDT Two encounter open on patient. Attempted to contact patient in the other encounter * Telephone Encounter - Julissa Ugarte APRN.CNS - 12/14/2024 7:18 AM EDT Noted, will follow up today, endorse ER visit * Telephone Encounter - Derek Ulloa DO - 12/12/2024 1:30 AM EDT Received call from lab at 12:47 AM regarding critical lab value. Patient had a CO2 level of 9. Reviewed his chart and discharge summary he also appeared to have worsening [place] over last week. Called patient and made contact at 1:20 AM. Informed him that I was doctor mobile application architect for Dr. Bernard. Discussed that I was calling him due to notification of the lab. He said that he was currently feelingfine, but given these lab values recommended that he go to ED for IV fluid replacement and evaluation due to [place] and concern for metabolic acidosis. He acknowledged recommendation but did not acknowledge if he would go to ED at this time. Will have my staff reach out to him later today. Also will forward to PCP. Dr. Derek Ulloa DO [Note transcribed at 6:40 AM due to Epic maintenance at original time] documented in this encounterUniversity [facility] Telephone encounter Note * Telephone Encounter - Rowena Angel RN - 12/14/2024 10:16 AM EDT Patient notified of results and provider's instructions. Patient verbalizes understanding. Patient declining ER visit again. Patient states that he continues drinking a couple sports a day. Patient states that he will come into lab at around 2:30 to get labs done again. Patient denies nausea, vomiting, and increased ostomy output. Rowena Angel RN [facility]03-17-2025 Miscellaneous Notes* Telephone Encounter - Rowena Angel RN - 12/14/2024 10:16 AM EDT Patient notified of results and provider's instructions. Patient verbalizes understanding. Patient declining ER visit again. Patient states that he continues drinking a couple sports a day. Patient states that he will come into lab at around 2:30 to get labs done again. Patient denies nausea, vomiting, and increased ostomy output. Rowena Angel RN * Telephone Encounter - Zhanna Wagner LPN - 12/14/2024 9:01 AM EDT No answer. Left message for patient to call office and ask to speak to a nurse regarding follow up from this past weekend and new lab results and recommendations. * Addendum Note - Julissa Ugarte APRN.CNS - 12/14/2024 7:29 AM EDTAddended by: JULISSA UGARTE on: 12/14/2024 07:29 AM Modules accepted: Orders * Telephone Encounter - Julissa Ugarte APRN.CNS - 12/14/2024 7:16 AM EDT Please let him know we still recommend ER evaluation / IV hydration due to acute kidney injury noted on his labs Advised to go to ER for decreased kidney function, possible metabolic acidosis following lab results. Advised to go to ER for worsening [place] but declined, repeat labs completed, somewhat improved but remains abnormal with elevated BUN/Cr, low Co2, hypokalemia. Endorse ER visit for [place], please reach out again today. Check to see if having nausea, vomiting, increased ostomy output. If so recommend treating accordingly such as take imodium for diarrhea. If he declines again I would recommend repeat labs today and double his current fluid intake to include 1-2 sports drinks or liquid IV or 2 cups of broth with sodium. I can replete potassium with a supplement. Latest Ref Rng 05/15/2024 12/04/2024 12/11/2024 12/12/2024 Protein, Total 6.3 - 8.0 g/dL 7.8 7.7 Albumin 3.9 - 4.9 g/dL 4.2 4.2 Calcium 8.5 - 10.2 mg/dL 9.2 9.3 9.0 9.1 Bilirubin, Total 0.2 - 1.3 mg/dL 0.3 0.3 Alkaline Phosphatase 38 - 113 U/L 109 120 (H) AST 14 - 40 U/L 20 16 ALT 10 - 54 U/L 18 20 Glucose 74 - 99 mg/dL 99 94 112 (H) 105 (H) BUN 9 - 24 mg/dL 22 51 (H) 56 (H) 50 (H) Creatinine 0.73 - 1.22 mg/dL 1.10 2.18 (H) 2.63 (H) 2.50 (H) Sodium 136 - 144 mmol/L 136 133 (L) 134 (L) 133 (L) Potassium 3.7 - 5.1 mmol/L 4.2 4.6 3.9 3.3 (L) Chloride 98 - 107 mmol/L 103 109 (H) 110 (H) 108 (H) CO2 22 - 30 mmol/L 20 (L) 11 (L) 9 (LL) 12 (L) Anion Gap 8 - 15 mmol/L 13 13 15 13 eGFR >=60 mL/min/1.73m 81 36 (L) 28 (L) 30 (L) documented in this encounterUniversity [facility]03-[facility] Telephone encounter Note * Telephone Encounter - Zhanna Wagner LPN - 12/14/2024 9:01 AM EDT No answer. Left message for patient to call office and ask to speak to a nurse regarding follow up from this past weekend and new lab results and recommendations. [facility]03-17-2025 Note* Addendum Note - Julissa Ugarte APRN.CNS - 12/14/2024 7:29 AM EDTAddended by: JULISSA UGARTE on: 12/14/2024 07:29 AM Modules accepted: Orders [facility]03-17-2025 Telephone encounter Note* Telephone Encounter - Julissa Ugarte APRN.CNS - 12/14/2024 7:18 AM EDT Noted, will follow up today, endorse ER visit [facility] Work Phone: 1(658) 196-771803-17-2025 Telephone encounter Note* Telephone Encounter - Ann UgarteANDREA barlow - 12/14/2024 7:16 AM EDT Please let him know we still recommend ER evaluation / IV hydration due to acute kidney injury noted on his labs Advised to go to ER for decreased kidney function, possible metabolic acidosis following lab results. Advised to go to ER for worsening [place] but declined, repeat labs completed, somewhat improved but remains abnormal with elevated BUN/Cr, low Co2, hypokalemia. Endorse ER visit for [place], please reach out again today. Check to see if having nausea, vomiting, increased ostomy output. If so recommend treating accordingly such as take imodium for diarrhea. If he declines again I would recommend repeat labs today and double his current fluid intake to include 1-2 sports drinks or liquid IV or 2 cups of broth with sodium. I can replete potassium with a supplement. Latest Ref Rng 05/15/2024 12/04/2024 12/11/2024 12/12/2024 Protein, Total 6.3 - 8.0 g/dL 7.8 7.7 Albumin 3.9 - 4.9 g/dL 4.2 4.2 Calcium 8.5 - 10.2 mg/dL 9.2 9.3 9.0 9.1 Bilirubin, Total 0.2 - 1.3 mg/dL 0.3 0.3 Alkaline Phosphatase 38 - 113 U/L 109 120 (H) AST 14 - 40 U/L 20 16 ALT 10 - 54 U/L 18 20 Glucose 74 - 99 mg/dL 99 94 112 (H) 105 (H) BUN 9 - 24 mg/dL 22 51 (H) 56 (H) 50 (H) Creatinine 0.73 - 1.22 mg/dL 1.10 2.18 (H) 2.63 (H) 2.50 (H) Sodium 136 - 144 mmol/L 136 133 (L) 134 (L) 133 (L) Potassium 3.7 - 5.1 mmol/L 4.2 4.6 3.9 3.3 (L) Chloride 98 - 107 mmol/L 103 109 (H) 110 (H) 108 (H) CO2 22 - 30 mmol/L 20 (L) 11 (L) 9 (LL) 12 (L) Anion Gap 8 - 15 mmol/L 13 13 15 13 eGFR >=60 mL/min/1.73m 81 36 (L) 28 (L) 30 (L) [facility]03-15-[facility]25 Telephone encounter Note* Telephone Encounter - Derek Ulloa DO - 12/12/2024 3:20 PM EDT Made contact again with patient. He did not go into ED since he feels fine and ostomy output is normal. Did not see the reason to mandi. He did have repeat lab draw today. Advised him that while my recommendation was to go in for IV fluids, I would monitor his labs and if continuing to rise or if I get a critical lab from the lab, I would call him again. Dr. Derek Ulloa DO [facility] Work Phone: 1(238) 788-339203-15-2025 Miscellaneous Notes* Telephone Encounter - Derek Ulloa DO - 12/12/2024 3:20 PM EDT Made contact again with patient. He did not go into ED since he feels fine and ostomy output is normal. Did not see the reason to mandi. He did have repeat lab draw today. Advised him that while my recommendation was to go in for IV fluids, I would monitor his labs and if continuing to rise or if I get a critical lab from the lab, I would call him again. Dr. Derek Ulloa DO documented in this encounterUniversity [facility]als [facility]03-[facility] Telephone encounter Note * Telephone Encounter - Derek Ulloa DO - 12/12/2024 1:30 AM EDT Received call from lab at 12:47 AM regarding critical lab value. Patient had a CO2 level of 9. Reviewed his chart and discharge summary he also appeared to have worsening [place] over last week. Called patient and made contact at 1:20 AM. Informed him that I was doctor mobile application architect for Dr. Bernard. Discussed that I was calling him due to notification of the lab. He said that he was currently feelingfine, but given these lab values recommended that he go to ED for IV fluid replacement and evaluation due to [place] and concern for metabolic acidosis. He acknowledged recommendation but did not acknowledge if he would go to ED at this time. Will have my staff reach out to him later today. Also will forward to PCP. Dr. Derek Ulloa DO [Note transcribed at 6:40 AM due to Epic maintenance at original time] [facility] Work Phone: 1(102) 550-343003-13-2025 Telephone encounter Note* Telephone Encounter - Julissa Ugarte APRN.CNS - 12/10/2024 8:36 AM EDT Order in, reach out to Dov [facility]ep[facility] if he does respond today [facility]03-13-2025 Miscellaneous Notes* Telephone Encounter - Julissa Ugarte APRN.CNS - 12/10/2024 8:36 AM EDT Order in, reach out to D[facility] if he does respond today * Telephone Encounter - Vania Mcpherson MA - 12/10/2024 8:22 AM EDT Pt reviewed [employer] message that was sent to him by Provider on 12/07/24. You requested that pt repeat lab work on Saturday, but no current orders are in for this patient. Pt does have standing CMP dx on standing lab is elevated glucose. Do you want pt have a BMP. Please advise. Vania Mcpherson MA documented in this encounterUniversity [facility]als [facility]03-[facility]-2025 Telephone encounter Note * Telephone Encounter - Vania Mcpherson MA - 12/10/2024 8:22 AM EDT Pt reviewed mychart message that was sent to him by Provider on 12/07/24. You requested that pt repeat lab work on Saturday, but no current orders are in for this patient. Pt does have standing CMP dx on standing lab is elevated glucose. Do you want pt have a BMP. Please advise. Vania Mcpherson MA [facility]03-10-2025 Progress note* Result Encounter Note - Julissa Ugarte APRN.CNS - 12/07/2024 8:15 AM EDT Elevated BUN and creatinine, endorse increase fluid intake. Recheck BMP 4 days [facility] Work Phone: 1(501) 913-784003-10-2025 Miscellaneous Notes* Result Encounter Note - Julissa Ugarte APRN.CNS - 12/07/2024 8:15 AM EDT Elevated BUN and creatinine, endorse increase fluid intake. Recheck BMP 4 days documented in this encounterUniversity Hospitals [facility]03[facility] History of Present illness Narrative* Julissa Ugarte APRN.CNS - 12/04/2024 11:00 AM EST SUBJECTIVE: Hepatitis C Screening Never done HIV Screening Never done Hepatitis B Vaccine(1 of 3 - 19+ 3-dose series) Never done Shingrix Vaccine(1 of 2) Never done Meningococcal B Vaccine(2 of 5 - Increased Risk Bexsero 3-dose series) due on 07/17/2022 Meningococcal Conjugate Vaccine(2 - Risk 2-dose series) due on 08/13/2022 Colorectal Cancer Screening due on 04/26/2023 Influenza Vaccine(1) due on 05/31/2024 Covid-19 Vaccine( season) due on 05/31/2024 LEIGH Burrows is a 54 year old male. 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 Follow-up scan in 6 months recommended. He called the office in August reporting that he appeared to have passed a clamp into his stoma bag. Asymptomatic. Advised to continue to monitor. He was seen at [facility] November 27, 2024 for nausea vomiting and diarrhea, hypotension due to hypovolemia and acute kidney injury. Discharged home 11/29/2024. Hospital discharge follow-up patient out reach was November 30, 2024. He presented with nausea vomiting and increased ostomy output. Had not been feeling well for several weeks prior to arrival. Noted family had norovirus. Blood pressure was decreased on arrival. Treated with IV fluids in the ER. Pulse ox at 94% room air. BUN at 51, creatinine of 3.0. Noted to have metabolic acidosis. He was treated with IV bicarbonate and IV fluid hydration. Lecture light repletion for potassium magnesium and phosphate. His renal function improved slowly during his admission with creatinine of 1.65 at discharge. All other labs normalized at discharge of this and potassium so was sent with 40 mEq to be taken twice daily x 14 days he was advised to take Metamucil 3 times daily to bulk up stools some. As needed Imodium discussed. Reports no nausea, vomiting or diarrhea since discharge.: Oral intake: 100 ounces is estimated fluid intake, 2 sports drinks daily with liquid IV added. Ostomy output is decreased, back to baseline. Given 14 days of potassium supplementation, no prior need for this. Using fiber gummies, 5 mg three per day. Has used immodium 2-3 times that have help to slow output. Hyperlipidemia. Mr. Burrows reports doing well on current therapy His most recent lipid panels are: Cholesterol, Total (mg/dL) Date Value 05/15/2024 150 01/04/2023 200 10/11/2018 175 HDL Cholesterol (mg/dL) Date Value 05/15/2024 50 01/04/2023 47 10/11/2018 42 LDL Cholesterol (mg/dL) Date Value 05/15/2024 85 01/04/2023 135 10/11/2018 118 LDL Chol, Bhavin (mg/dL) Date Value 11/03/2011 109 09/28/2010 115 Triglyceride (mg/dL) Date Value 05/15/2024 76 01/04/2023 89 10/11/2018 75 Review of Systems Constitutional: Negative. Respiratory: Negative. Cardiovascular: Negative. Gastrointestinal: Negative. Objective BP 106/71 Pulse 73 Resp 16 Wt 95 kg (209 lb 7 oz) BMI 27.63 kg/m Physical Exam Vitals and nursing note reviewed. Constitutional: Appearance: Normal appearance. HENT: Head: Normocephalic and atraumatic. Eyes: Conjunctiva/sclera: Conjunctivae normal. Neck: Thyroid: No thyroid mass or thyromegaly. Vascular: Normal carotid pulses. No JVD. Cardiovascular: Rate and Rhythm: Normal rate and regular rhythm. Pulses: Carotid pulses are 2+ on the right side and 2+ on the left side. Radial pulses are 2+ on the right side and 2+ on the left side. Heart sounds: Normal heart sounds. Pulmonary: Effort: Pulmonary effort is normal. Breath sounds: Normal breath sounds. Abdominal: General: Bowel sounds are normal. Palpations: Abdomen is soft. Comments: +ostomy in place Musculoskeletal: Right lower leg: No edema. Left lower leg: No edema. Skin: General: Skin is warm and dry. Neurological: General: No focal deficit present. Mental Status: He is alert and oriented to person, place, and time. ALLERGIES No Known Allergies MEDICATIONS loperamide (IMODIUM) 2 mg cap(s) Take 2 mg by mouth two times a day as needed. ondansetron orally disintegrating (ZOFRAN ODT) 8 mg disintegrating tablet Take 8 mg by mouth every 8 hours as needed. potassium chloride 20 mEq TbER Take 20 mEq by mouth once daily. omeprazole (PRILOSEC) 20 mg capsule Take 1 capsule by mouth once daily. ondansetron (ZOFRAN) 8 mg tablet Take 1 tablet by mouth every 12 hours as needed for nausea/vomiting. fluvoxaMINE ER (LUVOX CR) 150 mg capsule Take 1 capsule by mouth daily at bedtime. CPAP Continue Auto PAP @ 5-20 cm of water with humidification. Mask (per patient preference) optional chin strap (if indicated) , filters, tubing, humidifier and lifetime supplies. AMBROSE G47.33 buPROPion SR (WELLBUTRIN SR) 150 mg 12 hr tablet Take 1 tablet by mouth two times a day. ferrous sulfate 325 mg (65 mg iron) tablet Take 1 tablet by mouth every other day. multivitamin tablet Take 1 tablet by mouth once daily. omeprazole (PRILOSEC) 20 mg capsule Take 1 capsule by mouth once daily. (Patient not taking: Reported on 12/04/2024) 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 Other and unspecified hyperlipidemia Other malaise and fatigue Unspecified sleep apnea Social History Tobacco Use Smoking status: Never Smokeless tobacco: Never Vaping Use Vaping status: Never Used Substance Use Topics Alcohol use: Never Drug use: Never ASSESSMENT/PLAN: 1. Hypokalemia - ICD9: 276.8, ICD10: E87.6 Hypokalemia contributing to nausea vomiting diarrhea. Has been taking supplemental, has a prescription for 14 days. Recommend checking BMP today. Can discontinue potassium supplement if in normal range now. - BASIC METABOLIC PANEL 2. [place] (acute kidney injury) (HCC) - ICD9: 584.9, ICD10: N17.9 Normal kidney function noted prior to illness, check levels today. Continue with adequate fluid intake. 3. Nausea vomiting and diarrhea - ICD9: 787.91, 787.01, ICD10: R11.2, R19.7(primary diagnosis) resolved 4. Special screening examination for viral disease - ICD9: V73.99, ICD10: Z11.59 Declined - HEPATITIS C ANTIBODY IA WITH CONFIRMATION 5. Screening for HIV (human immunodeficiency virus) - ICD9: V73.89, ICD10: Z11.4 Declined - HIV 1/2 COMBO WITH REFLEX TO DIFFERENTIATION BMP today Follow up with Harjeet Bernard MD is scheduled Julissa Ugarte APRN.[employer] documented in this encounterUniversity Hospitals [facility]03-07-2025 NoteHNO ID: [id number] Author: JULISSA UGARTE APRN.CNS Service: ? Author Type: Nurse Specialist Type: Progress Notes Filed: 12/14/2024 07:15 Note Text: SUBJECTIVE: Hepatitis C Screening Never done HIV Screening Never done Hepatitis B Vaccine(1 of 3 - 19+ 3-dose series) Never done Shingrix Vaccine(1 of 2) Never done Meningococcal B Vaccine(2 of 5 - Increased Risk Bexsero 3-dose series) due on 07/17/2022 Meningococcal Conjugate Vaccine(2 - Risk 2-dose series) due on 08/13/2022 Colorectal Cancer Screening due on 04/26/2023 Influenza Vaccine(1) due on 05/31/2024 Covid-19 Vaccine( season) due on 05/31/2024 LEIGH Burrows is a 54 year old male. 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 Follow-up scan in 6 months recommended. He called the office in August reporting that he appeared to have passed a clamp into his stoma bag. Asymptomatic. Advised to continue to monitor. He was seen at [facility] November 27, 2024 for nausea vomiting and diarrhea, hypotension due to hypovolemia and acute kidney injury. Discharged home 11/29/2024. Hospital discharge follow-up patient out reach was November 30, 2024. He presented with nausea vomiting and increased ostomy output. Had not been feeling well for several weeks prior to arrival. Noted family had norovirus. Blood pressure was decreased on arrival. Treated with IV fluids in the ER. Pulse ox at 94% room air. BUN at 51, creatinine of 3.0. Noted to have metabolic acidosis. He was treated with IV bicarbonate and IV fluid hydration. Repletion for potassium magnesium and phosphate. His renal function improved slowly during his admission with creatinine of 1.65 at discharge. All other labs normalized at discharge except potassium so was sent with 40 mEq to be taken twice daily x 14 days he was advised to take Metamucil 3 times daily to bulk up stools some. As needed Imodium discussed. Reports no nausea, vomiting or diarrhea since discharge. Oral intake: 100 ounces is estimated fluid intake, 2 sports drinks daily with liquid IV added. Ostomy output is decreased, back to baseline. Given 14 days of potassium supplementation, no prior need for this. Using fiber gummies, 5 mg three per day. Has used immodium 2-3 times that have help to slow output. Hyperlipidemia. Mr. Burrows reports doing well on current therapy His most recent lipid panels are: Cholesterol, Total (mg/dL) Date Value 05/15/2024 150 01/04/2023 200 10/11/2018 175 HDL Cholesterol (mg/dL) Date Value 05/15/2024 50 01/04/2023 47 10/11/2018 42 LDL Cholesterol (mg/dL) Date Value 05/15/2024 85 01/04/2023 135 10/11/2018 118 LDL Chol, Bhavin (mg/dL) Date Value 11/03/2011 109 09/28/2010 115 Triglyceride (mg/dL) Date Value 05/15/2024 76 01/04/2023 89 10/11/2018 75 Review of Systems Constitutional: Negative. Respiratory: Negative. Cardiovascular: Negative. Gastrointestinal: Negative. Objective BP 106/71 Pulse 73 Resp 16 Wt 95 kg (209 lb 7 oz) BMI 27.63 kg/m? Physical Exam Vitals and nursing note reviewed. Constitutional: Appearance: Normal appearance. HENT: Head: Normocephalic and atraumatic. Eyes: Conjunctiva/sclera: Conjunctivae normal. Neck: Thyroid: No thyroid mass or thyromegaly. Vascular: Normal carotid pulses. No JVD. Cardiovascular: Rate and Rhythm: Normal rate and regular rhythm. Pulses: Carotid pulses are 2+ on the right side and 2+ on the left side. Radial pulses are 2+ on the right side and 2+ on the left side. Heart sounds: Normal heart sounds. Pulmonary: Effort: Pulmonary effort is normal. Breath sounds: Normal breath sounds. Abdominal: General: Bowel sounds are normal. Palpations: Abdomen is soft. Comments: +ostomy in place Musculoskeletal: Right lower leg: No edema. Left lower leg: No edema. Skin: General: Skin is warm and dry. Neurological: General: No focal deficit present. Mental S (more content not included)...[facility]03-03-[facility] Note HNO ID: [id number] Author: LINNEA GARRISON RN Service: ? Author Type: Registered Nurse Type: Progress Notes Filed: 11/30/2024 10:18 Note Text: TRANSITION CARE MANAGEMENT (TCM) INITIAL CONTACT Spin Instructor Outreach Provider Action/FYI: Patient reports hospital told him he needed to have a BMP ordered post discharge. Patient aware will be discussed at hospital follow up. Initial contact with patient post discharge, spoke to patient. Patient identified by name and . TRANSITION CARE MANAGEMENT INITIAL OUTREACH DOCUMENTATION: 11/30/2024 Date of Outreach: Outreach Attempt 1: Contact Made Date of Discharge 11/29/2024 SUMMARY: -Pt discharged from [facility] on 11/29/2024. -Admitted for: Dehydration Do you have a hospital follow up appointment with your PCP? Appointment on 12/04/2024 with Julissa Ugarte. Yes. Remind patient of appointment date, time, and location. If not within 14 calendar days of discharge - please reschedule accordingly. MEDICATIONS: Many patients have questions or concerns about their medications once they are home. Were you prescribed any new medications? If yes, what are those medications? Potassium Chloride 20 mEq twice daily, loperamide 2 mg every 12 hours as needed, Metamucil 3 gm packet three times daily. Were you told to hold any medications? No Were any of your medications discontinued? No Do you have any questions about getting or taking your medications? No Your discharge instructions/After visit Summary (AVS) are important in guiding you through the recovery process. Is there anything I might help you understand? No Do you have all the necessary equipment and supplies at home? Yes Medical records from recent hospitalization: [facility]where[facility] History of Present illness Narrative* Linnea Garrison RN - 11/30/2024 10:14 AM EST TRANSITION CARE MANAGEMENT (TCM) INITIAL CONTACT Spin Instructor Outreach Provider Action/FYI: Patient reports hospital told him he needed to have a BMP ordered post discharge. Patient aware will be discussed at hospital follow up. Initial contact with patient post discharge, spoke to patient. Patient identified by name and . TRANSITION CARE MANAGEMENT INITIAL OUTREACH DOCUMENTATION: 11/30/2024 Date of Outreach: Outreach Attempt 1: Contact Made Date of Discharge 11/29/2024 SUMMARY: -Pt discharged from [facility] on 11/29/2024. -Admitted for: Dehydration Do you have a hospital follow up appointment with your PCP? Appointment on 12/04/2024 with Julissa Ugarte. Yes. Remind patient of appointment date, time, and location. If not within 14 calendar days of discharge - please reschedule accordingly. MEDICATIONS: Many patients have questions or concerns about their medications once they are home. Were you prescribed any new medications? If yes, what are those medications? Potassium Chloride 20 mEq twice daily, loperamide 2 mg every 12hours as needed, Metamucil 3 gm packet three times daily. Were you told to hold any medications? No Were any of your medications discontinued? No Do you have any questions about getting or taking your medications? No Your discharge instructions/After visit Summary (AVS) are important in guiding you through the recovery process. Is there anything I might help you understand? No Do you have all the necessary equipment and supplies at home? Yes Medical records from recent hospitalization: Care Everywhere documented in this encounterUniversity Hospitals [facility]03-03-2025 NotePatient Outreach (INTMWS) DOV BURROWS ([id number]) 1970 M Date Time Provider Department 11/30/24 HARJEET BERNARD INTMWS During your visit today, we recorded the following information about you: Linnea Garrison RN 11/30/2024 10:18 AM Signed TRANSITION CARE MANAGEMENT (TCM) INITIAL CONTACT Spin Instructor Outreach Provider Action/FYI: Patient reports hospital told him he needed to have a BMP ordered post discharge. Patient aware will be discussed at hospital follow up. Initial contact with patient post discharge, spoke to patient. Patient identified by name and . TRANSITION CARE MANAGEMENT INITIAL OUTREACH DOCUMENTATION: 11/30/2024 Date of Outreach: Outreach Attempt 1: Contact Made Date of Discharge 11/29/2024 SUMMARY: -Pt discharged from [facility] on 11/29/2024. -Admitted for: Dehydration Do you have a hospital follow up appointment with your PCP? Appointment on 12/04/2024 with Julissa Ugarte. Yes. Remind patient of appointment date, time, and location. If not within 14 calendar days of discharge - please reschedule accordingly. MEDICATIONS: Many patients have questions or concerns about their medications once they are home. Were you prescribed any new medications? If yes, what are those medications? Potassium Chloride 20 mEq twice daily, loperamide 2 mg every 12 hours as needed, Metamucil 3 gm packet three times daily. Were you told to hold any medications? No Were any of your medications discontinued? No Do you have any questions about getting or taking your medications? No Your discharge instructions/After visit Summary (AVS) are important in guiding you through the recovery process. Is there anything I might help you understand? No Do you have all the necessary equipment and supplies at home? Yes Medical records from recent hospitalization: Care Everywhere Allergies As of Date: 11/30/2024 (No Known Allergies) Date Reviewed: 06/15/2024 Reviewed by: Ana Lane, RN - Fully Assessed Reason for Visit: Hospital F/U [57] Prescriptions as of 11/30/2024 - omeprazole (PRILOSEC) 20 mg capsule Take 1 capsule by mouth once daily. - ondansetron (ZOFRAN) 8 mg tablet Take 1 tablet by mouth every 12 hours as needed for nausea/vomiting. - omeprazole (PRILOSEC) 20 mg capsule Take 1 capsule by mouth once daily. - fluvoxaMINE ER (LUVOX CR) 150 mg capsule Take 1 capsule by mouth daily at bedtime. - CPAP Continue Auto PAP @ 5-20 cm of water with humidification. Mask (per patient preference) optional chin strap (if indicated) , filters, tubing, humidifier and lifetime supplies. AMBROSE G47.33 - buPROPion SR (WELLBUTRIN SR) 150 mg 12 hr tablet Take 1 tablet by mouth two times a day. - ferrous sulfate 325 mg (65 mg iron) tablet Take 1 tablet by mouth every other day. - multivitamin tablet Take 1 tablet by mouth once daily. Problem List As Of Date 11/30/2024 Noted Resolved AMBROSE on CPAP [G47.33] 02/18/2006 Abnormal weight gain [R63.5] 02/18/2006 01/25/2015 MALAISE AND FATIGUE NEC [R53.81, R53.83] 02/18/2006 ANXIETY STATE NOS [F41.1] 02/18/2006 Hypercholesteremia <130 [E78.00] 02/18/2006 OVERWEIGHT [E66.9] 02/18/2006 01/25/2015 DEPRESSIVE DISORDER NEC [F32.89] 02/20/2008 Cellulitis and abscess of unspecified site [L03*07/04/2009 01/25/2015 Non-healing surgical wound [T81.89XA] 07/06/2009 01/25/2015 Other adjustment reaction with predominant dist*01/17/2011 01/25/2015 Non morbid obesity due to excess calories [E66.*02/07/2017 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6] 06/08/2022 06/27/2022 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 Intra-abdominal and pelvic swelling, mass and l*01/23/2023 Encounter Status:Closed by LINNEA GARRISON on 11/30/24[facility]03-02-[facility]25 [facility] Medical Records Department [address] [place] [id number] Discharge Summary 11/29/24 0835 MR#: [id number] Acct: [id number] Name: DOV BURROWS Rep #: [id number] : 1970 54 From: Sara Quezada DO PCP: Dr. Harjeet Bernard MD Status:ADM IN Location: [place] AM417-8 Providers Date of Admission: 11/27/24 Date of Discharge: 11/29/24 Primary Care Physician: Dr. Harjeet Bernard MD Reason For Visit: [place] Diagnosis Discharge Diagnosis (1) Acute kidney injury: Status: Acute Code(s): N17.9 - Acute kidney failure, unspecified (2) Metabolic acidosis: Status: Acute Code(s): E87.20 - Acidosis, unspecified (3) Hypokalemia: Status: Acute Code(s): E87.6 - Hypokalemia (4) Nausea, vomiting and diarrhea: Status: Acute Code(s): R11.2 - Nausea with vomiting, unspecified; R19.7 - Diarrhea, unspecified (5) Hypotension due to hypovolemia: Status: Acute Code(s): E86.1 - Hypovolemia Medications at Discharge Home Medications bupropion HCl 150 mg tablet,12 hr sustained-release 150 mg PO DAILY 05/04/24 fluvoxamine 150 mg capsule,extended release 24 hr 150 mg PO DAILY 05/04/24 ondansetron 8 mg disintegrating tablet 8 mg PO Q8H PRN nausea and vomiting #20 tabs 05/04/24 omeprazole 20 mg capsule,delayed release 20 mg PO DAILY 11/26/24 loperamide 2 mg capsule 2 mg PO Q12H PRN DIARRHEA #60 caps 11/29/24 potassium chloride 20 mEq tablet,extended release 20 meq PO DAILY #14 tabs 11/29/24 psyllium husk (aspartame) 3 gram oral powder packet (Daily Fiber (psyllium- aspartame)) 1 packet PO TID #54 ea 11/29/24 Hospital Course Operations None Summary of Care Provided Minutes Spent on Discharge: 38 Hospital Course: Mr. 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 He really not been feeling well for several weeks however. He been worse lately with nausea vomiting as well as high output in his ostomy. His family had norovirus. Vital signs on presentation showed a temperature of 36.7, heart rate 87, respiratory rate 15, initial blood pressure was 93/65 with repeat after 1 L IV fluids at 112/81, pulse ox was 94% on room air. CBC was unremarkable. Chemistry panel initially showed hyponatremia with a sodium of 129, serum bicarb of 9, anion gap was 15, BUN was 51 and peak creatinine was 3.0. It appears that his baseline creatinine runs between 1 and 1.3. Given his acidosis on his lab I obtained an ABG which showed a pH of 7.2 with a actual serum bicarb of 10, pCO2 of 25.7 and a pO2 of 91 on room air. He was placed on bicarb drip aggressive IV fluid hydration and treated with electrolyte supplementation for marked hypokalemia, hypomagnesemia, and hypophosphatemia. His renal function slowly improved to the point where at discharge it was 1.67. His bicarb is normalized and anion gap was normal. His electrolytes were overall better with normalized sodium magnesium, and phosphorus. His potassium was still low so we gave him 120 mg once on the day of discharge and placed him on 40 mill equivalents daily to twice daily x 14 days. Of asked him to get a follow-up BMP within the next week for reevaluation of his electrolytes and renal function. We did start him on Metamucil 3 times daily to bulk forming stool some. I did instruct him in as needed use of Imodium but we did discuss avoiding overuse for this to avoid constipation. He is to follow-up with his primary care physician and get a basic metabolic profile in the next 3 to 5 days as noted above. He was discharged home in stable condition on 11/29/2024. Discharge diagnoses: [place] on CKD stage IIIb Anion gap metabolic acidosis-resolved Hypokalemia Hypophosphatemia-resolved Hypomagnesemia-resolved Hyponatremia-resolved History of appendiceal rupture status post complete colectomy GERD Anxiety Depression Physical Exam Const alert, oriented x3, no apparent distress, average body habitus, no limitations, healthy appearing and well nourished Constitutional Narrative: Very pleasant, middle-aged, white male, sitting up in bed, watching television, appears comfortable General Appearance: cooperative, comfortable, well kempt and well developed Exam Limitations: no limitations HEENT normocephalic, head/scalp atraumatic, hearing grossly normal bilaterally and moist oral mucous membranes HEENT Narrative: Mallampati 2, no thrush Eyes EOMs intact bilaterally and conjunctivae normal Eyes Narrative: No scleral icterus Neck supple Neck Narrative: Trachea midline Resp normal respiratory effort, no retractions, no use of accessory muscles and clear to auscultation bilaterally Auscultation: Negative for rales, rhonchi or wheezes Cardio (more content not included)...[facility]02-28-2025 Evaluation note* Diagnosis Onset Date Resolution Status Admit Date Hypokalemia acute October 3:11pm Acute kidney injury resolved Febru 2024 3:11pm Hypotension due to hypovolemia resolved November 27 2 025 3:11pm Metabolic acidosis resolved ua 2024 3:11pm Nausea, vomiting and diarrhea resolv ed November 27, 2024 3:11pm Acute kidney injury acute December 15, 2024 10:18am Dehydration acute December 15 2 025 10:18am [facility] Work Phone: 1(708) 932-327002-28-2025 Evaluation note* Diagnosis Onset Date Resolution Status Admit Date Hypokalemia acute October 3:11pm Acute kidney injury resolved u 2024 3:11pm Hypotension due to hypovolemia resolved November 27 2 025 3:11pm Metabolic acidosis resolved 2024 3:11pm Nausea, vomiting and diarrhea resolv ed November 27, 2024 3:11pm Acute kidney injury inactive December 15, 2024 10:18am Dehydration inactive December 15 2 025 10:18am [facility] Work Phone: 1(552) 353-240612-23-2024 Telephone encounter Note* Telephone Encounter - Cleo Parekh RN - 09/21/2024 3:46 PM EST Called Triny back to discuss. He remembers Dr. Maloney letting him know that the clip he placed may eventually come out, and he thinks this is what happened. He offered a photo- I requested he send the photo to Dr. Matos office directly so they can address it. I told them I will keep an eye out to take a look, but I have no idea about the clip that was placed. Triny verbalized understanding. [facility]12-23-2024 Miscellaneous Notes* Telephone Encounter - Cleo Parekh RN - 09/21/2024 3:46 PM EST Called Triny back to discuss. He remembers Dr. Maloney letting him know that the clip he placed may eventually come out, and he thinks this is what happened. He offered a photo- I requested he send the photo to Dr. Matos office directly so they can address it. I told them I will keep an eye out to take a look, but I have no idea about the clip that was placed. Triny verbalized understanding. * Telephone Encounter - Callie Hall - 09/21/2024 10:05 AM EST [phone] Triny Patient calling stating he passed the clamp that was put in his ABD in his stoma bag. Wants to makesure this is ok. Patient not in any pain or any issues, did not know it happened until he emptied his bag. documented in this encounterUniversity Hospitals Geauga [facility] Center12-23-2024 Telephone encounter Note * Telephone Encounter - Callie Hall - 09/21/2024 10:05 AM EST [phone] Triny Patient calling stating he passed the clamp that was put in his ABD in his stoma bag. Wants to makesure this is ok. Patient not in any pain or any issues, did not know it happened until he emptied his bag. [facility]10-14-2024 History of Present illness Narrative* Nicolasa Denise, - 07/13/2024 1:00 PM EDT COLORECTAL SURGERY VIRTUAL VISIT FOLLOW UP I have communicated my name and active licensure. The patient's identity and physical location wereverified at the time of this visit. Either the patient or their legal compliance representative has been informed of the risks and benefits of -- and alternatives to -- treatment through a remote evaluation andconsents to proceed with the evaluation remotely. I had a virtual visit with Mr. Burrows today for follow up of TELETYPESETTER OPERATOR. 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 Here today for yearly surveillance 05/15/24 CT CAP C:IMPRESSION: No convincing CT evidence of thoracic metastasis. 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 Medical Decision Making: Assessment Assessment & Diagnosis: Dov Burrows is a 54 year old male with TELETYPESETTER OPERATOR recurrence PCI 39 Data Reviewed: Tests & Documents Reviewed/ordered: Review of prior notes from medicine Review of prior operative reports Review of Pathology Review of Imaging: CT Abdomen, CT Pelvis Review of Labs: CBC, BMP Review of Procedures / Tests: Colonoscopy I have independently interpreted: CT Abdomen, CT Pelvis, MRI Abdomen I have discussed Dov Burrows's treatment plan and/or results with patient. Treatment plan: Observation/surveillance Repeat scans in 6 months I have confirmed and edited as necessary, the PFSH and ROS obtained by others. Nicolasa Denise DO, FACS, FASCRS Colorectal Surgery Risk of morbidity, mortality and/or complications of treatment plan: high I spent a total of 30 minutes on the date of the service which included preparing to see the patient, [id number] patient care, completing clinical documentation, obtaining and/or reviewing separately obtained history, performing a medically appropriate examination, counseling and educating the pat ient/family/caregiver, ordering medications, tests, or procedures, communicating with other HCPs (not separately reported), independently interpreting results (not separately reported), communicatingresults to the patient/family/caregiver, and care coordination (not separately reported). documented in this encounterUniversity [facility]10-[facility]24 NoteHNO ID: [id number] Author: NICOLASA DENISE DO Service: ? Author Type: Physician Type: Progress Notes Filed: 09/01/2024 10:44 Note Text: COLORECTAL SURGERY VIRTUAL VISIT FOLLOW UP I have communicated my name and active licensure. The patient's identity and physical location were verified at the time of this visit. Either the patient or their legal compliance representative has been informed of the risks and benefits of -- and alternatives to -- treatment through a remote evaluation and consents to proceed with the evaluation remotely. I had a virtual visit with Mr. Burrows today for follow up of TELETYPESETTER OPERATOR. 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 Here today for yearly surveillance 05/15/24 CT CAP C:IMPRESSION: No convincing CT evidence of thoracic metastasis. 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 Medical Decision Making: Assessment Assessment AND Diagnosis: Dov Burrows is a 54 year old male with TELETYPESETTER OPERATOR recurrence PCI 39 Data Reviewed: Tests AND Documents Reviewed/ordered: Review of prior notes from medicine Review of prior operative reports Review of Pathology Review of Imaging: CT Abdomen, CT Pelvis Review of Labs: CBC, BMP Review of Procedures / Tests: Colonoscopy I have independently interpreted: CT Abdomen, CT Pelvis, MRI Abdomen I have discussed Dov Burrows's treatment plan and/or results with patient. Treatment plan: Observation/surveillance Repeat scans in 6 months I have confirmed and edited as necessary, the PFSH and ROS obtained by others. Nicolasa Denise, DO, FACS, FASCRS Colorectal Surgery Risk of morbidity, mortality and/or complications of treatment plan: high I spent a total of 30 minutes on the date of the service which included preparing to see the patient, [id number] patient care, completing clinical documentation, obtaining and/or reviewing separately obtained history, performing a medically appropriate examination, counseling and educating the patient/family/caregiver, ordering medications, tests, or procedures, communicating with other HCPs (not separately reported), independently interpreting results (not separately reported), communicating results to the patient/family/caregiver, and care coordination (not separately reported). [facility]09-16-2024 NoteHNO ID: [id number] Author: HALEY BAUMANN RN Service: ? Author Type: Registered Nurse Type: Progress Notes Filed: 06/15/2024 15:37 Note Text: ET/WOCN Nursing Consult Topic: ET/WOCN Consultation Note Outcome: Patient and family member in A30 for visit with Dr. Denise. Patient has an established end ileostomy from 2021. Patient reports difficulty with increased liquid output and some leakage issues. He discussed change in output with Dr. Denise. Pouching system switched to convexity this visit to provide more support to peristomal skin and prevent undermining. Samples provided with contact information to call if system helps and patient needs an updated supply form. Next Scheduled Visit: as needed Assessment Stoma Type: End ileostomy Diameter: 1 1/4 Location: RUQ Protrusion: Budded Mucosal condition and color: Red and moist Mucocutaneous junction Intact Peristomal Skin: Other: mild erythema Location of Skin Impairment: circumferentially Peristomal contour: Flat, slightly concave from 3-9 o'clock Supportive Tissue: Semisoft, some areas of firmer tissue adjacent to stoma but not painful Character of output: thin green liquid effluent, mushier effluent explosive at times Emptying frequency per day: varies, increased frequency per patient Pouching System Pouching system removed: 2 10/03 ConvaTec NATALY-FIT Natura Durahesive Flat Cut-to-Fit Skin Barrier (#[id number]), drainable pouch Wearing time: 3-4 days Pouching system evaluation: circumferentially undermined, wider from 3-9 o'clock and nearly leaking at 6 o'clock Recommendations: Skin Care: Apply ConvaTec Stomahesive powder to any areas of skin breakdown PRN until healed. Dust off excess. Pouching system Applied: Neo New Image Convex 2 10/03 Ceraplus Flange with Tape Border #[id number], ceraplus ring, drainable pouch Expected wearing time: 3-4 days Time Increment: 1 hour Haley Baumann RN, BSN, CWOCN For non-emergent [facility] Nursing patient care needs - Please place a consult via Epic under ostomy. WOC Nurse Available Hours: M-F: [phone]; Weekends AND Holidays: [phone] For emergent [facility] Nursing patient care needs - Page #[phone], during available hours only.[facility]09-[facility] History of Present illness Narrative* Haley Baumann RN - 06/15/2024 3:18 PM EDT ET/WOCN Nursing Consult Topic: ET/WOCN Consultation Note Outcome: Patient and family member in A30 for visit with Dr. Denise. Patient has an established end ileostomy from 2021. Patient reports difficulty with increased liquid output and some leakage issues. He discussed change in output with Dr. Denise. Pouching system switched to convexity this visitto provide more support to peristomal skin and prevent undermining. Samples provided with contact information to call if system helps and patient needs an updated supply form. Next Scheduled Visit: as needed Assessment Stoma Type: End ileostomy Diameter: 1 1/4 Location: RUQ Protrusion: Budded Mucosal condition and color: Red and moist Mucocutaneous junction Intact Peristomal Skin: Other: mild erythema Location of Skin Impairment: circumferentially Peristomal contour: Flat, slightly concave from 3-9 o'clock Supportive Tissue: Semisoft, some areas of firmer tissue adjacent to stoma but not painful Character of output: thin green liquid effluent, mushier effluent explosive at times Emptying frequency per day: varies, increased frequency per patient Pouching System Pouching system removed: 2 1 ConvaTec NATALY-FIT Natura Durahesive Flat Cut-to-Fit Skin Barrier (#[id number]), drainable pouch Wearing time: 3-4 days Pouching system evaluation: circumferentially undermined, wider from 3-9 o'clock and nearly leakingat 6 o'clock Recommendations: Skin Care: Apply ConvaTec Stomahesive powder to any areas of skin breakdown PRN until healed. Dust off excess. Pouching system Applied: Neo New Image Convex 2 10/03 Ceraplus Flange with Tape Border #[id number],ceraplus ring, drainable pouch Expected wearing time: 3-4 days Time Increment: 1 hour Haley Baumann RN, BSN, CWOCN For non-emergent [facility] Nursing patient care needs - Please place a consult via Epic under ostomy. WOC Nurse Available Hours: M-F: [phone]; Weekends & Holidays: [phone] For emergent [facility] Nursing patient care needs - Page #[phone], during available hours only. 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 Here today for yearly surveillance 05/15/24 CT CAP C:IMPRESSION: No convincing CT evidence of thoracic metastasis. 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 Physical Exam: Ht 185.4 cm (6' 1) Wt 100.7 kg (222 lb) BMI 29.29 kg/m General - awake, alert, no acute distress Abdominal - soft, non tender Anorectal: Perianal skin is intact. No erythema, induration or excoriation. No fissure, fistula or external hemorrhoids. 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 Here today for yearly surveillance Data Reviewed: Tests & Documents Reviewed/ordered: Review of prior notes from EMR Review of prior operative reports Review of Pathology Review of Imaging: CT Abdomen, CT Pelvis I have independently interpreted: CT Abdomen, CT Pelvis I have discussed Dov Burrows's treatment plan and/or results with Mr. Burrows. Treatment plan: - Virtual visit in 4 weeks - Low fiber diet - Added prescription for zofran and prilosec Attending Note I evaluated the patient and personally participated in the gallagher components. I agree with the resident's findings and plan as documented and have discussed the case and management of the patient's carewith the resident. I have confirmed and edited as necessary, the PFSH and ROS obtained by others. Signature: Nicolasa Denise DO Date: 07/07/2024 Time: 1:13 PM Nicolasa Denise DO, FACS, FASCRS Colorectal Surgery Risk of morbidity, mortality and/or complications of treatment plan: high documented in this encounterUniversity [facility]als [facility]09-16-2024 NoteHNO ID: [id number] Author: NICOLASA DENISE DO Service: ? 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 Here today for yearly surveillance 05/15/24 CT CAP C:IMPRESSION: No convincing CT evidence of thoracic metastasis. 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 Physical Exam: Ht 185.4 cm (6' 1) Wt 100.7 kg (222 lb) BMI 29.29 kg/m? General - awake, alert, no acute distress Abdominal - soft, non tender Anorectal: Perianal skin is intact. No erythema, induration or excoriation. No fissure, fistula or external hemorrhoids. 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 Here today for yearly surveillance Data Reviewed: Tests AND Documents Reviewed/ordered: Review of prior notes from EMR Review of prior operative reports Review of Pathology Review of Imaging: CT Abdomen, CT Pelvis I have independently interpreted: CT Abdomen, CT Pelvis I have discussed Dov Burrows's treatment plan and/or results with Mr. Burrows. Treatment plan: - Virtual visit in 4 weeks - Low fiber diet - Added prescription for zofran and prilosec Attending Note I evaluated the patient and personally participated in the gallagher components. I agree with the resident's findings and plan as documented and have discussed the case and management of the patient's care with the resident. I have confirmed and edited as necessary, the PFSH and ROS obtained by others. Signature: Nicolasa Denise DO Date: 07/07/2024 Time: 1:13 PM Nicolasa Denise DO, FACS, FASCRS Colorectal Surgery Risk of morbidity, mortality and/or complications of treatment plan: [facility]08-16-2024 Instructions* Patient Instructions* Harjeet Bernard MD - 05/15/2024 12:11 PM EDT -Continue using your CPAP machine every night. - Refills for Wellbutrin and Luvox have been sent to your pharmacy. - Drink plenty of fluids, especially in hot weather, to prevent dehydration. Consider using electrolyte solutions like Gatorade in addition to water. - Modify your diet to avoid foods that are difficult to digest, such as raw vegetables. - Consider using cooling towels or other methods to help regulate your body temperature during hot weather. - Continue to monitor your sleep and mood, and make adjustments to your sleep schedule as needed. - Complete your lab work today, including CMP, CBC, lipid panel, and A1C tests. documented in this encounterUniversity Hospitals [facility]08-16-2024 NoteHNO ID: [id number] Author: HARJEET BERNARD MD Service: ? Author Type: Physician Type: Progress Notes Filed: 05/15/2024 12:13 Note Text: This note was created using [employer]. Subjective Dov Burrows is a 54 year old male. Patient presents with: F/U 6 months SUBJECTIVE: Dov Burrows is a 54 year old year old gentleman here today for 6 month follow up appointment for review of medical conditions. Continues to use CPAP every night and benefits from use. Patient is a 54-year-old male with a history of depression, presenting for follow-up. Patient reports improvement in depression symptoms since starting Luvox, but notes that symptoms are not completely resolved. He is also taking Wellbutrin. He reports difficulty maintaining a consistent sleep schedule due to a demanding work schedule, which has been exacerbated by the summer heat. He has been waking up at 03:15 instead of 04:15 and going to bed at 21:00. He reports that his family sometimes encourages him to stay up later, but he insists on going to bed at 21:00 due to fatigue. He reports that the irregular sleep schedule and family dynamics sometimes lead to irritability and mood disturbances. Patient has a stoma and reports occasional issues with leakage, which he attributes to the adhesive breaking down due to acids and sweating from work. He has tried using paste to secure the adhesive, but finds it difficult to apply. He also reports a history of skin irritation around the stoma, which he managed by cutting the wafer larger to allow the skin to breathe. He reports that he has been managing the stoma care independently, but finds it challenging at times. Patient reports a recent episode of nausea and vomiting, which he attributes to the heat and dehydration. He reports that his appetite has decreased, and he has been drinking a lot of iced tea to stay hydrated. He reports that his family was concerned about the vomiting episode and took him to the ER to rule out a blockage. A scan was performed, and no blockage was found. He reports that the heat has also affected his mood, and he has been feeling more irritable and fatigued. He has been trying to stay hydrated by drinking Gatorade and using cooling towels. Patient uses a CPAP machine and reports that he is using it every night and benefiting from it. He is due for a refill of his Luvox prescription and has enough to last until the mail order arrives. He is also taking iron and multivitamins. 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 fluvoxaMINE ER (LUVOX CR) 150 mg capsule Take 1 capsule by mouth daily at bedtime. CPAP Continue Auto PAP @ 5-20 cm of water with humidification. Mask (per patient preference) optional chin strap (if indicated) , filters, tubing, humidifier and lifetime supplies. AMBROSE G47.33 ferrous sulfate 325 mg (65 mg iron) tablet Take 1 tablet by mouth every other day. multivitamin tablet Take 1 tablet by mouth once daily. No current facility-administered medications for this visit. Review of Systems Objective BP 102/62 Pulse 71 Temp 36.2 ?C (97.1 ?F) Resp 16 Wt 105.6 kg (232 lb 12.9 oz) SpO2 99% BMI 30.71 kg/m? Physical Exam Vitals reviewed. Constitutional: Appearance: Normal appearance. Eyes: Conjunctiva/sclera: Conjunctivae normal. Cardiovascular: Rate and Rhythm: Normal rate and regular rhythm. Heart sounds: Normal heart sounds. Pulmonary: Effort: Pulmonary effort is normal. Breath sounds: Normal breath sounds. Skin: General: Skin is warm and dry. Neurological: General: No focal deficit present. Mental Status: He is alert and oriented to person, place, and time. Psychiatric: Mood and Affect: Mood normal. Behavior: Behavior normal. Thought Content: Thought content normal. Judgment: Judgment normal. Last labs done: Latest Ref Rng 07/02/2022 07/16/2022 07/25/2022 01/04/2023 WBC 3.70 - 11.00 k/uL 6.66 8.4 (E) 8.1 (E) 10.18 RBC 4.20 - 6.00 m/uL 3.03 (L) 4.68 Hemoglobin 13.0 - 17.0 g/dL 8.2 (L) 9.4 ! (E) 9.5 ! (E) 13.5 Hematocrit 39.0 - 51.0 % 28.2 (L) 31.7 ! (E) 31.0 ! (E) 43.0 MCV 80.0 - 100.0 fL 93.1 91.9 MCH 26.0 - 34.0 pg 27.1 28.8 MCHC 30.5 - 36.0 g/dL 29.1 (L) 31.4 RDW-CV 11.5 - 15.0 % 17.6 (H) 14.5 Platelet Count 150 - 400 k/uL 1,020 (H) 825 ! (E) 721 ! (E) 509 (H) MPV 9.0 - 12.7 fL 8.7 (L) 8.8 (L) Neut% % 57.9 63.6 (E) 59.7 (E) 69.0 Abs Neut (ANC) 1.45 - 7.50 k/uL 3.86 5.3 (E) 4.8 (E) 7.03 Lymph% % 18.2 16.8 Abs Lymph 1.00 - 4.00 k/uL 1.21 1.71 Clinch% % 22.2 11.3 Abs Clinch <0.87 k/uL 1.48 (H) 1.15 (H) Eosin% % 1.1 2.5 (E) 4.6 (E) 2.1 Abs Eosin <0. (more content not included)...[facility]08-16-2024 History of Present illness Narrative* Harjeet Bernard MD - 05/15/2024 11:32 AM EDT This note was created using [employer]. Subjective Dov Burrows is a 54 year old male. Patient presents with: F/U 6 months SUBJECTIVE: Dov Burrows is a 54 year old year old gentleman here today for 6 month follow up appointment for review of medical conditions. Continues to use CPAP every night and benefits from use. Patient is a 54-year-old male with a history of depression, presenting for follow-up. Patient reports improvement in depression symptoms since starting Luvox, but notes that symptoms are not completely resolved. He is also taking Wellbutrin. He reports difficulty maintaining a consistent sleep schedule due to a demanding work schedule, which has been exacerbated by the summer heat. He has been waking up at 03:15 instead of 04:15 and going to bed at 21:00. He reports that his family sometimes encourages him to stay up later, but he insists on going to bed at 21:00 due to fatigue. He reports that the irregular sleep schedule and family dynamics sometimes lead to irritability and mood disturbances. Patient has a stoma and reports occasional issues with leakage, which he attributes to the adhesivebreaking down due to acids and sweating from work. He has tried using paste to secure the adhesive,but finds it difficult to apply. He also reports a history of skin irritation around the stoma, which he managed by cutting the wafer larger to allow the skin to breathe. He reports that he has been managing the stoma care independently, but finds it challenging at times. Patient reports a recent episode of nausea and vomiting, which he attributes to the heat and dehydration. He reports that his appetite has decreased, and he has been drinking a lot of iced tea to stay hydrated. He reports that his family was concerned about the vomiting episode and took him to the ER to rule out a blockage. A scan was performed, and no blockage was found. He reports that the heathas also affected his mood, and he has been feeling more irritable and fatigued. He has been tryingto stay hydrated by drinking Gatorade and using cooling towels. Patient uses a CPAP machine and reports that he is using it every night and benefiting from it. He is due for a refill of his Luvox prescription and has enough to last until the mail order arrives. He is also taking iron and multivitamins. 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 fluvoxaMINE ER (LUVOX CR) 150 mg capsule Take 1 capsule by mouth daily at bedtime. CPAP Continue Auto PAP @ 5-20 cm of water with humidification. Mask (per patient preference) optional chin strap (if indicated) , filters, tubing, humidifier and lifetime supplies. AMBROSE G47.33 ferrous sulfate 325 mg (65 mg iron) tablet Take 1 tablet by mouth every other day. multivitamin tablet Take 1 tablet by mouth once daily. No current facility-administered medications for this visit. Review of Systems Objective BP 102/62 Pulse 71 Temp 36.2 C (97.1 F) Resp 16 Wt 105.6 kg (232 lb 12.9 oz) SpO2 99% BMI 30.71 kg/m Physical Exam Vitals reviewed. Constitutional: Appearance: Normal appearance. Eyes: Conjunctiva/sclera: Conjunctivae normal. Cardiovascular: Rate and Rhythm: Normal rate and regular rhythm. Heart sounds: Normal heart sounds. Pulmonary: Effort: Pulmonary effort is normal. Breath sounds: Normal breath sounds. Skin: General: Skin is warm and dry. Neurological: General: No focal deficit present. Mental Status: He is alert and oriented to person, place, and time. Psychiatric: Mood and Affect: Mood normal. Behavior: Behavior normal. Thought Content: Thought content normal. Judgment: Judgment normal. Last labs done: Latest Ref Rng 07/02/2022 07/16/2022 07/25/2022 01/04/2023 WBC 3.70 - 11.00 k/uL 6.66 8.4 (E) 8.1 (E) 10.18 RBC 4.20 - 6.00 m/uL 3.03 (L) 4.68 Hemoglobin 13.0 - 17.0 g/dL 8.2 (L) 9.4 ! (E) 9.5 ! (E) 13.5 Hematocrit 39.0 - 51.0 % 28.2 (L) 31.7 ! (E) 31.0 ! (E) 43.0 MCV 80.0 - 100.0 fL 93.1 91.9 MCH 26.0 - 34.0 pg 27.1 28.8 MCHC 30.5 - 36.0 g/dL 29.1 (L) 31.4 RDW-CV 11.5 - 15.0 % 17.6 (H) 14.5 Platelet Count 150 - 400 k/uL 1,020 (H) 825 ! (E) 721 ! (E) 509 (H) MPV 9.0 - 12.7 fL 8.7 (L) 8.8 (L) Neut% % 57.9 63.6 (E) 59.7 (E) 69.0 Abs Neut (ANC) 1.45 - 7.50 k/uL 3.86 5.3 (E) 4.8 (E) 7.03 Lymph% % 18.2 16.8 Abs Lymph 1.00 - 4.00 k/uL 1.21 1.71 Clinch% % 22.2 11.3 Abs Clinch <0.87 k/uL 1.48 (H) 1.15 (H) Eosin% % 1.1 2.5 (E) 4.6 (E) 2.1 Abs Eosin <0.46 k/uL 0.07 0.21 Baso% % 0.3 0.5 Abs Baso <0.11 k/uL <0.03 0.05 Immature Gran % % 0.3 0.3 IMMATURE GRANS (ABS) <0.10 k/uL <0.03 0.03 NRBC /100 WBC 0.0 0.0 Absolute nRBC <0.01 k/uL <0.01 <0.01 DTYPE Auto Auto Protein, Total 6.3 - 8.0 g/dL 7.8 7.5 Albumin 3.9 - 4.9 g/dL 3.0 (L) 4.1 Calcium 8.5 - 10.2 mg/dL 9.4 Bilirubin, Total 0.2 - 1.3 mg/dL 0.4 0.3 (E) 0.20 (E) 0.3 Alkaline Phosphatase 38 - 113 U/L 211 (H) 156 (E) 145 ! (E) 132 (H) AST 14 - 40 U/L 15 61 ! (E) 22 (E) 20 ALT 10 - 54 U/L 12 33 (E) 31 (E) 23 Glucose 74 - 99 mg/dL 110 (H) BUN 9 - 24 mg/dL 19 Creatinine 0.73 - 1.22 mg/dL 0.58 (L) 0.81 (E) 0.69 ! (E) 1.15 Sodium 136 - 144 mmol/L 140 Potassium 3.7 - 5.1 mmol/L 4.3 Chloride 97 - 105 mmol/L 105 CO2 22 - 30 mmol/L 24 Anion Gap 9 - 18 mmol/L 11 eGFR >=60 mL/min/1.73m 119 78 Cholesterol, Total <200 mg/dL 200 (H) Triglyceride <150 mg/dL 89 HDL Cholesterol >39 mg/dL 47 Non HDL Cholesterol <130 mg/dL 153 (H) Fasting Time hrs 12 VLDL Cholesterol <30 mg/dL 18 TC:HDL Ratio <5.10 4.26 LDL Cholesterol <100 mg/dL 135 (H) LDL:HDL Ratio <2.54 2.87 (H) Bilirubin, Conjug <0.2 mg/dL <0.2 CK 39 - 308 24 (L) 61 (E) 174 (E) Legend: (L) Low (H) High ! Abnormal (E) External lab result Assessment and Plan Recurrent major depressive disorder, in partial remission (HCC): - Depression is improved but not fully resolved. - Current medications: Wellbutrin and Luvox, both of which are contributing to partial remission. - Refilled Luvox for 90 days with 3 refills. - Patient educated on the importance of maintaining a consistent sleep schedule to aid in mood stabilization. - Advised to continue current medication regimen and to monitor for any exacerbation of symptoms. 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): - Patient reports occasional issues with ileostomy bag leakage, particularly at night. - Educated on the importance of proper adhesive application and the use of additional products likeadhesive paste and powder to prevent skin irritation. - Discussed the use of cooling towels and hydration strategies to manage heat- related issues that may affect the ileostomy. - Advised to monitor for any signs of infection or severe skin irritation and to report back if these occur. AMBROSE on CPAP: - Patient continues to use CPAP every night and reports benefiting from its use. - Documented for insurance purposes that the patient is compliant with CPAP therapy. - Prescription for CPAP supplies sent to [facility]. Hypercholesteremia: - Standing orders placed for lipid panels to monitor cholesterol levels. - Patient advised to continue current diet and exercise regimen. Elevated glucose: - Previous lab results showed slightly elevated glucose levels. - Ordered HbA1c to assess average blood glucose levels over the past 3 months. - Standing orders placed for CMP and CBC to monitor overall health. - Patient advised to maintain a balanced diet and monitor for any symptoms of hyperglycemia. Encounter for long-term current use of medication: - Current medications include Wellbutrin, Luvox, iron supplements, and multivitamins. - Refilled Luvox for 90 days with 3 refills. - Patient advised to continue current medication regimen and to report any side effects or issues with medication adherence. Harjeet Bernard MD documented in this encounterUniversity Hospitals Geauga Medical Center08-16-2024 History of Present illness Narrative* Noemí Caruso RT(R) - 05/15/2024 10:00 AM EDT Radiology Service Progress Note DATE OF SERVICE: May 15, 2024 TIME: 2:35 PM PATIENT IDENTITY VERIFICATION COMPLETED USING TWO (2) STANDARD IDENTIFIERS: Name and Date of confirmed by patient verbally. FALL SCREENING: Has the patient had 2 falls in the last year or 1 fall with injury or currently using an Ambulatory Assistive Device (Walker, Cane, Wheelchair, Crutches, etc.)? No PATIENT GENDER DATA: Male PATIENT RELEVANT IMPLANT DATA REVIEWED: Yes PATIENT PRESENTS WITH AN IMPLANTABLE OR ATTACHED REINFORCING IRON WORKER HELPER: No ALLERGIES: Reviewed and unchanged CONTRAST ALLERGY: NO. EXAM: CT -CONTRAST INDUCED NEPHROPATHY RISK FACTORS: Not applicable CREATININE: Creatinine Date Value Ref Range Status 01/04/2023 1.15 0.73 - 1.22 mg/dL Final 07/25/2022 0.69 (A) 0.7 - 1.3 MG/DL Final 07/16/2022 0.81 0.7 - 1.3 MG/DL Final Estimated Glomerular Filtration Rate Date Value Ref Range Status 01/04/2023 78 >=60 mL/min/1.73m Final Comment: Estimated Glomerular Filtration Rate (eGFR) is calculated using the 2020 CKD-EPI creatinine equation. This equation utilizes serum creatinine, sex, and age as parameters. The creatinine assay has traceable calibration to isotope dilution- mass spectrometry. Refer to KDIGO guidelines for clinical interpretation. In patients with unstable renal function, e.g. those with acute kidney injury, the eGFRmay not accurately reflect actual GFR. eGFR- Date Value Ref Range Status 07/04/2021 >60 Final P.O.C.T. RESULTS: POC done: Yes, See Lab Tab May 15, 2024 TREATMENT: N/A PERIPHERAL IV DATA: Ambulatory: A peripheral IV was started in the Left antecubital site with a Angio cath: 22 gauge. RADIOLOGY DEPARTMENT: CT; Exam(s) Completed: Chest Abdomen Pelvis SIGNATURE: RT Dick(Marcie) PATIENT NAME: Dov Zepeda First DATE: May 15, 2024 TIME: 2:35 PM documented in this encounterUniversity Hospitals Geauga Medical Center08-16-2024 NoteHNO ID: [id number] Author: NOEMÍ CARUSO RT(R) Service: ? Author Type: Apple Turner Type: Progress Notes Filed: 05/15/2024 14:36 Note Text: Radiology Service Progress Note DATE OF SERVICE: May 15, 2024 TIME: 2:35 PM PATIENT IDENTITY VERIFICATION COMPLETED USING TWO (2) STANDARD IDENTIFIERS: Name and Date of confirmed by patient verbally. FALL SCREENING: Has the patient had 2 falls in the last year or 1 fall with injury or currently using an Ambulatory Assistive Device (Walker, Cane, Wheelchair, Crutches, etc.)? No PATIENT GENDER DATA: Male PATIENT RELEVANT IMPLANT DATA REVIEWED: Yes PATIENT PRESENTS WITH AN IMPLANTABLE OR ATTACHED REINFORCING IRON WORKER HELPER: No ALLERGIES: Reviewed and unchanged CONTRAST ALLERGY: NO. EXAM: CT -CONTRAST INDUCED NEPHROPATHY RISK FACTORS: Not applicable CREATININE: Creatinine Date Value Ref Range Status 01/04/2023 1.15 0.73 - 1.22 mg/dL Final 07/25/2022 0.69 (A) 0.7 - 1.3 MG/DL Final 07/16/2022 0.81 0.7 - 1.3 MG/DL Final Estimated Glomerular Filtration Rate Date Value Ref Range Status 01/04/2023 78 >=60 mL/min/1.73m? Final Comment: Estimated Glomerular Filtration Rate (eGFR) is calculated using the 2020 CKD-EPI creatinine equation. This equation utilizes serum creatinine, sex, and age as parameters. The creatinine assay has traceable calibration to isotope dilution-mass spectrometry. Refer to KDIGO guidelines for clinical interpretation. In patients with unstable renal function, e.g. those with acute kidney injury, the eGFR may not accurately reflect actual GFR. eGFR- Date Value Ref Range Status 07/04/2021 >60 Final P.O.C.T. RESULTS: POC done: Yes, See Lab Tab May 15, 2024 TREATMENT: N/A PERIPHERAL IV DATA: Ambulatory: A peripheral IV was started in the Left antecubital site with a Angio cath: 22 gauge. RADIOLOGY DEPARTMENT: CT; Exam(s) Completed: Chest Abdomen Pelvis SIGNATURE: RT Dick(R) PATIENT NAME: Dov Zepeda First DATE: May 15, 2024 TIME: 2:35 [facility]08-08-2024 Telephone encounter Note* Telephone Encounter - Cleo Parekh RN - 05/07/2024 1:49 PM EDT I discussed concerns with triny. For surveillance we would still need CT C as well. He said he will go to appt at [facility] and get the imaging done as planned. Pt verbalizes understanding and thanked me for the call. [facility]08-08-2024 Miscellaneous Notes* Telephone Encounter - Cleo Parekh RN - 05/07/2024 1:49 PM EDT I discussed concerns with triny. For surveillance we would still need CT C as well. He said he will go to appt at [facility] and get the imaging done as planned. Pt verbalizes understanding and thanked me for the call. * Telephone Encounter - Callie Hall - 05/07/2024 12:59 PM EDT [phone] Triny Patient calling to make sure that his CT ABD PEL he got on 05/04/24 at [facility] is ok and he does not need to keep the appointment for next Saturday at [facility]. Images and reports here. documented in this encounterUniversity Hospitals Geauga Medical Center08-08-2024 Telephone encounter Note * Telephone Encounter - Callie Hall - 05/07/2024 12:59 PM EDT Triny Patient calling to make sure that his CT ABD PEL he got on 05/04/24 at [facility] is ok and he does not need to keep the appointment for next Saturday at [facility]. Images and reports here. [facility]07-15-2024 Telephone encounter Note* Telephone Encounter - Dorinda Saenz RN - 04/13/2024 2:09 PM EDT SPECIALTY CARE COORDINATION FOLLOW-UP NOTE Called patient. Order placed. Dorinda Saenz RN April 13, 2024 [facility]07-15-2024 Miscellaneous Notes* Telephone Encounter - Dorinda Saenz RN - 04/13/2024 2:09 PM EDT SPECIALTY CARE COORDINATION FOLLOW-UP NOTE Called patient. Order placed. Dorinda Saenz RN April 13, 2024 * Telephone Encounter - Callie Hall - 04/13/2024 1:48 PM EDT Triny Patient needs his yearly CT C/ABD/PEL order placed for his follow up with Dr. Denise on 06/15/24 documented in this encounterCleveland [id number] Telephone encounter Note * Telephone Encounter - Callie Hall - 04/13/2024 1:48 PM EDT [phone] Triny Patient needs his yearly CT C/ABD/PEL order placed for his follow up with Dr. Denise on 06/15/24 [facility]06-24-2024 Telephone encounter Note* Telephone Encounter - Joan Alcala - 03/23/2024 1:45 PM EDT Patient has been identified by name and date of : Yes Patient phones for refill(s): Bupropion SR - Wellbutrin 150 mg- not in current refill list. Date of last office visit in primary care: 10/08/2023 Date of next office visit in primary care: 04/13/2024 Please advise. Thank you. Joan Alcala. [facility]06-24-2024 Miscellaneous Notes* Telephone Encounter - Joan Alcala - 03/23/2024 1:45 PM EDT Patient has been identified by name and date of : Yes Patient phones for refill(s): Bupropion SR - Wellbutrin 150 mg- not in current refill list. Date of last office visit in primary care: 10/08/2023 Date of next office visit in primary care: 04/13/2024 Please advise. Thank you. Joan Alcala. 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 OSTOMY SUPPLY ORDER FORM Pouch: ConvaTec: 1 Nataly-Fit Natura + Invisiclose, transparent, w/ filter #[id number] 30 day use - 1 Box Wafer: ConvaTec: Nataly-Fit Natura 1 3/4 Flat Durahesive # [id number] 30 day use - 1 Box Moldable Ring: [place] CeraRing Regular # [id number] 30 day use - 1 Box Paste: ConvaTec Stomahesive # [id number] 30 day use - 1 Tube Powder: ConvaTec Stomahesive # 37683 30 day use - 1 Bottle Skin Barrier: [place] Hollihesive 4x4 5/box #7700 30 day use - 1 Box Skin Sealant: 3M Cavilon No Sting, 50/Box #3342 30 day use - 1 Box Hu Hope Flat panel support belt, cool comfort, beige, size XL, with blue 2 1/4 stoma opening Cat# [id number] Refills: 11 Attending Physician: Dr. Denise For immediate authorization, please contact the physician s office. [facility] Nurse: Nereida Escalona RN, BSN, CWOCN, CWS SIGNATURE: Nereida Escalona RN PATIENT NAME: Dov Zepeda First DATE: January 22, 2024 TIME: 9:48 AM CONTACT #: [phone] * Nereida Escalona RN - 01/22/2024 9:32 AM EDT ET/WOCN Nursing Consult Topic: ET/WOCN Consultation Note Outcome: Patient here for outpatient ostomy visit with concerns of skin irritation to peristomal area. Patient reports using [employer] for supplies, was using precut pouches, Convatec durahesive flange. Has plenty of supplies at home but would like a new order form sent to [facility]. Also requests another Nu hope belt. He reports that he tried using a moldable ring, no improvement in skin irritation. Reports that he changes pouching system every 4 days, but has been experiencing leaks more recently. Some modifications made to system and explained these changes, patient states he will be able tocomplete these modifications. Advised patient to call stoma nursing/make an appointment with any issues. Faxed order form to [facility]. Next Scheduled Visit: as needed Assessment: Stoma Type: End ileostomy Diameter: 1 1/2 Location: RUQ Protrusion: Budded Mucosal Condition and Color: Red and moist Mucocutaneous Junction: Intact Peristomal Skin: Erythema to complete peristomal area, with denuded skin from 7 to 11 o'clock Peristomal Contour: Rounded Supportive Tissue: Semisoft Character of Output: brown liquid Emptying Frequency per Day: per nursing Pouching System Removed: Convatec Durahesive flat flange, cera ring, drainable pouch Current Wear Time: 3 days Pouching System Evaluation: hydrated Recommendations: Skin Care: 1. Use ConvaTec Sensi Care No Sting Adhesive Remover wipes (#[id number]) to gently release the worn pouch from the skin. 2. Apply ConvaTec Stomahesive powder (#13194) to denuded/irritated skin as needed with each pouch change until healed. [place] off loose powder from intact skin prior to pouching. Pouching System Applied: Hollihesive triangle washer with keyhole, wrapped around stoma, ConvaTec Durahesive 2 1/4 flat flange, smear of paste to aperture, drainable pouch Wear Time Goal: 3-4 days Time Increment: 1 hour 15 minutes Nereida Escalona RN, BSN, CWOCN, CWS documented in this encounterUniversity Hospitals Geauga Medical Center04-17-2024 Miscellaneous Notes* Telephone Encounter - Parris Mallory RN - 01/15/2024 6:16 PM EDT [facility] nursing returned patient message regarding: Pt has a wound next to his stoma. He would like an appointment with [facility] Nursing out-pt clinic to have it assessed. Left Message: No- spoke directly to pt Information/Recommendations provided regarding: Appointment scheduled for 01/22/24 at 8:15 am. Pt agreed with this time/date. Time spent: 15 minutes VIKY Izaguirre, RN, CWOCN For non-emergent WOC Nursing patient care needs - Please place a consult via Epic under ostomy. WOC Nurse Available Hours: M-F: [phone]; Weekends & Holidays: [phone] For emergent WOC Nursing patient care needs - Page #[phone], during available hours only. * Telephone Encounter - Rylee Angel PCNA - 01/15/2024 4:50 PM EDT Patient would like to speak to a stoma nurse, has a sore draining that is affecting his seal. Call back# [phone] Thank you, Rylee Angel Coordinator II WO nursing documented in this encounterUniversity Hospitals Geauga Medical Center02-12-2024 History of Present illness Narrative* Harjeet Bernard MD - 11/11/2023 6:35 PM EST VIRTUAL VISIT PROGRESS NOTE This is a virtual visit using [employer] Zoom Video Visit. It required patient- provider interaction for the medical decision making as documented below. I have communicated my name and active licensure. The patient's identity and physical location wereverified at the time of this visit. Either the patient or their legal compliance representative has been informed of the risks and benefits of -- and alternatives to -- treatment through a remote evaluation andconsents to proceed with the evaluation remotely. Dov Burrows is a 53 year old male seen for follow up on medication changes. At 10/08/22 appointment, switched to Luvox to help with some OCD type symptoms contributing to depression and anger issues. From 10/08/23 appointment: SUBJECTIVE: Dov Burrows is a 53 year old year old gentleman here today for 6 month follow up appointment for review of medical conditions. Med adjustments. Daughter and had noted mood swings Increased since May 29 surgery. His mind does not shutdown. Things that was thinking when fell asleep, is there when wakes up. Sleeping okay through the night except when has to get 3 times a night to empty ostomy. Anger issues. Can't stop thinking about some things for a while. Worse the past 2 months. Frustrations when not able to do what he had planned on doing. No SI or HI. Luvox--just started the two different pills and started long acting 1 pill 2 days ago. Overall better. better from anger issues. Family noted difference. Mind trouble shutting down--better. Started to sleep better at night. Goes to bed earlier HISTORY REVIEWED (electronic chart updated): 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 Other and unspecified hyperlipidemia Other malaise and fatigue Unspecified sleep apnea PAST SURGICAL HISTORY Procedure Laterality Date COLONOSCOPY SCREENING 04/26/2022 EGD W/O BRSH SPEC VARICIES INJ 04/26/2022 PAST SURGICAL HISTORY OF 05/29/2022 CRS/HIPEC FAMILY HISTORY Problem Relation Age of Onset Dementia Mother Diabetes Father Pancreatic Cancer Father Social History Tobacco Use Smoking status: Never Smokeless tobacco: Never Vaping Use Vaping Use: Never used Substance Use Topics Alcohol use: Never Drug use: Never Current Outpatient Medications Medication Sig fluvoxaMINE ER (LUVOX CR) 150 mg capsule Take 1 capsule by mouth daily at bedtime. CPAP Continue Auto PAP @ 5-20 cm of water with humidification. Mask (per patient preference) optional chin strap (if indicated) , filters, tubing, humidifier and lifetime supplies. AMBROSE G47.33 ferrous sulfate 325 mg (65 mg iron) tablet Take 1 tablet by mouth every other day. multivitamin tablet Take 1 tablet by mouth once daily. No current facility-administered medications for this visit. ALLERGIES No Known Allergies REVIEW OF SYSTEMS: As noted in HPI PHYSICAL EXAMINATION: VIDEO EXAM: (if completed, performed via video enabled technology) GENERAL: alert and appropriate, in no distress, well-hydrated, well nourished, and happy, smiling, interactive HEAD: normocephalic, no abnormality or lesion noted EYES: no injection and visual acuity is grossly normal RESPIRATORY: breathing non-labored Psychiatric: Mood normal; affect bright and reactive Encounter Diagnosis ICD-10-CM 1. Recurrent major depressive disorder, in partial remission (HCC) F33.41 Improved symptoms on Luvox. Just switched to Luvix CR a couple days ago. Continue same dose Above issues addressed with patient. Patient involved in shared decision making for management of medical issues. History and medications reviewed. Epic updated as needed Refills and/or prescriptions taken care of and meds adjusted as indicated after reviewed history, exam and labs. Will get labs in next few weeks. Will decide if needs to stay on iron. Hoping will have continued improvement in OCD and depression symptoms over the next month or so. Less anger issues. Improved getting mind to shut down. He will keep working on good sleep hygiene--going to bed sooner has helped. Has enough medication refills to last till next appointment. Harjeet Bernard MD There are no Patient Instructions on file for this visit. documented in this encounterUniversity Hospitals Geauga Medical Center09-25-2023 History of Present illness Narrative* Claire Wick RN - 06/24/2023 2:27 PM EDT ET/WOCN Nursing Consult Topic: ET/WOCN Consultation Note ET Outcome: Patient here to see Dr. Denise today, states that he just changed his pouch this morning and does not need it changed. He requests to see the WOC team because his hernia belt that he is wearing is too small because he has gained weight. Measurements taken today, and an updated prescription was faxed to [facility]. Stoma as viewed through pouch is red, moist, and healthy appearing. Current pouching system: Pouch: ConvaTec: 1 Nataly-Fit Natura + Invisiclose, transparent, w/ filter #[id number] Wafer: ConvaTec: Nataly-Fit Natura Convex-It precut 1 10/07 Durahesive # [id number] Moldable Ring: Coloplast Brava 4.2mm Moldable # [id number] Paste: Coloplast Brava Strip Paste # [id number] (applies to transverse crease, inferior to stoma as needed) Powder: ConvaTec Stomahesive # 06682 30 day use - 1 Bottle Skin Sealant: 3M No Sting, 30/Box # 3904 30 day use - 1 Box Waist measurements today: 43 Supine position for 5 minutes 44 Standing Calculated measurements for Konoz Flat Panel Support Belt [id number] ET's Next Scheduled Visit: As needed Time Increment: 45 minutes Claire Wick RN (Terri), BSN, CWOCN The [place] [id number] Patient: Dov Burrows Patient Address: [address] [place] [address] [place] [id number] Preferred Gender: male Date of : 1970 Type of Stoma: End 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 Denise For immediate authorization, please contact the physician s office. [facility] Nurse: VIKY Vargas (Terri), CWOCN SIGNATURE: Claire Wick RN PATIENT NAME: Dov Burrows DATE: June 24, 2023 TIME: 2:50 PM CONTACT #: [phone] documented in this encounterUniversity Hospitals Geauga Medical Center08-18-2023 History of Present illness Narrative* Reef Noemí Britt, RT(R) - 05/17/2023 11:20 AM EDT Radiology Service Progress Note DATE OF SERVICE: May 17, 2023 TIME: 1:38 PM PATIENT IDENTITY VERIFICATION COMPLETED USING TWO (2) STANDARD IDENTIFIERS: Name and Date of confirmed by patient verbally. FALL SCREENING: Has the patient had 2 falls in the last year or 1 fall with injury or currently using an Ambulatory Assistive Device (Walker, Cane, Wheelchair, Crutches, etc.)? No PATIENT GENDER DATA: Male PATIENT RELEVANT IMPLANT DATA REVIEWED: Yes ALLERGIES: Reviewed and unchanged CONTRAST ALLERGY: NO. EXAM: CT -CONTRAST INDUCED NEPHROPATHY RISK FACTORS: Not applicable CREATININE: Creatinine Date Value Ref Range Status 01/04/2023 1.15 0.73 - 1.22 mg/dL Final 07/25/2022 0.69 (A) 0.7 - 1.3 MG/DL Final 07/16/2022 0.81 0.7 - 1.3 MG/DL Final Estimated Glomerular Filtration Rate Date Value Ref Range Status 01/04/2023 78 >=60 mL/min/1.73m Final Comment: Estimated Glomerular Filtration Rate (eGFR) is calculated using the 2020 CKD-EPI creatinine equation. This equation utilizes serum creatinine, sex, and age as parameters. The creatinine assay has traceable calibration to isotope dilution- mass spectrometry. Refer to KDIGO guidelines for clinical interpretation. In patients with unstable renal function, e.g. those with acute kidney injury, the eGFRmay not accurately reflect actual GFR. eGFR- Date Value Ref Range Status 07/04/2021 >60 Final P.O.C.T. RESULTS: POC done: Yes, See Lab Tab May 17, 2023 TREATMENT: N/A PERIPHERAL IV DATA: Ambulatory: A peripheral IV was started in the Left antecubital site with a Angio cath: 22 gauge. RADIOLOGY DEPARTMENT: CT; Exam(s) Completed: Chest Abdomen Pelvis SIGNATURE: RT Dick(R) PATIENT NAME: Dov Zepeda First DATE: May 17, 2023 TIME: 1:38 PM documented in this encounterUniversity Hospitals Geauga Medical Center08-15-2023 Miscellaneous Notes* Telephone Encounter - Patricia Padron MA - 05/14/2023 9:47 AM EDT Order for CPAP supplies faxed to [facility] at [phone]. Patricia Padron MA documented in this encounterUniversity Hospitals Geauga Medical Center07-07-2023 Instructions* Patient Instructions* Harjeet Bernard MD - 04/05/2023 10:21 AM EDT Use Ivory soap instead of wet wipes for stoma care. If still not able to stay sticky then consider asking for trial on [employer]. documented in this encounterUniversity Hospitals Geauga Medical Center07-07-2023 History of Present illness Narrative* Harjeet Bernard MD - 04/05/2023 10:06 AM EDT This note was created using [employer]. Subjective Dov Burrows is a 52 year old male. Patient presents with: F/U 6 months SUBJECTIVE: Dov Burrows is a 52 year old year old gentleman here today for follow up appointment for reviewof medical conditions. Needs to get DME supplier for APAP changed to [employer] (from [employer]) where gets other DME supplies. Uses APAP nightly and benefits from use. Will needs supplies in the next 2 to 3 weeks. States that everyone at home says that his meds are not working. Frustration depression. Sleep interrupted because up frequently to empty the bag once to twice a night. mostly gas. Not able to sleep in bed because significant other told him to sleep separately whenw as getting upso often. Working more efficiently. Needs his sleep. 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 ferrous sulfate 325 mg (65 mg iron) tablet Take 1 tablet by mouth every other day. sertraline (ZOLOFT) 100 mg tablet Take 1.5 tablets by mouth once daily. CPAP Continue Auto PAP @ 5-20 cm of water with humidification. Mask (per patient preference) optional chin strap (if indicated) , filters, tubing, humidifier and lifetime supplies. AMBROSE G47.33 (Patient taking differently: Continue Auto PAP @ 5-20 cm of water with humidification. Mask (per patient preference) optional chin strap (if indicated) , filters, tubing, humidifier and lifetime supplies. AMBROSE G47.33) multivitamin tablet Take 1 tablet by mouth once daily. apixaban (ELIQUIS) 5 mg tab(s) Take 1 tablet by mouth twice daily. (Patient not taking: Reported on04/05/2023) No current facility-administered medications for this visit. Review of Systems Objective BP 118/84 Pulse 75 Temp 37 C (98.6 F) Resp 18 Wt 108.4 kg (239 lb) SpO2 96% BMI 31.53 kg/m Last 5 Encounter Wt Readings: Date: Wt: 04/05/2023 108.4 kg (239 lb) 01/09/2023 101.6 kg (224 lb) 11/05/2022 98 kg (216 lb) 10/15/2022 95.7 kg (211 lb) 09/28/2022 95.3 kg (210 lb 3.2 oz) No waist measurement recorded Estimated body mass index is 31.53 kg/m as calculated from the following: Height as of 11/05/22: 185.4 cm (6' 1). Weight as of this encounter: 108.4 kg (239 lb). Last 5 Encounter BP Readings: Date: BP: 04/05/2023 118/84 01/09/2023 115/71 10/15/2022 120/82 10/10/2022 116/81 09/28/2022 114/65 Physical Exam Vitals reviewed. Constitutional: Appearance: Normal appearance. Eyes: Conjunctiva/sclera: Conjunctivae normal. Cardiovascular: Rate and Rhythm: Normal rate and regular rhythm. Heart sounds: Normal heart sounds. Pulmonary: Effort: Pulmonary effort is normal. Breath sounds: Normal breath sounds. Skin: General: Skin is warm and dry. Neurological: General: No focal deficit present. Mental Status: He is alert and oriented to person, place, and time. Psychiatric: Mood and Affect: Mood normal. Behavior: Behavior normal. Thought Content: Thought content normal. Judgment: Judgment normal. Component Latest Ref Rng & Units 01/04/2023 WBC 3.70 - 11.00 k/uL 10.18 RBC 4.20 - 6.00 m/uL 4.68 Hemoglobin 13.0 - 17.0 g/dL 13.5 Hematocrit 39.0 - 51.0 % 43.0 MCV 80.0 - 100.0 fL 91.9 MCH 26.0 - 34.0 pg 28.8 MCHC 30.5 - 36.0 g/dL 31.4 RDW-CV 11.5 - 15.0 % 14.5 Platelet Count 150 - 400 k/uL 509 (H) MPV 9.0 - 12.7 fL 8.8 (L) Neut% % 69.0 Abs Neut (ANC) 1.45 - 7.50 k/uL 7.03 Lymph% % 16.8 Abs Lymph 1.00 - 4.00 k/uL 1.71 Clinch% % 11.3 Abs Clinch <0.87 k/uL 1.15 (H) Eosin% % 2.1 Abs Eosin <0.46 k/uL 0.21 Baso% % 0.5 Abs Baso <0.11 k/uL 0.05 Immature Gran % % 0.3 IMMATURE GRANS (ABS) <0.10 k/uL 0.03 NRBC /100 WBC 0.0 Absolute nRBC <0.01 k/uL <0.01 DTYPE Auto Protein, Total 6.3 - 8.0 g/dL 7.5 Albumin 3.9 - 4.9 g/dL 4.1 Calcium 8.5 - 10.2 mg/dL 9.4 Bilirubin, Total 0.2 - 1.3 mg/dL 0.3 Alkaline Phosphatase 38 - 113 U/L 132 (H) AST 14 - 40 U/L 20 ALT 10 - 54 U/L 23 Glucose 74 - 99 mg/dL 110 (H) BUN 9 - 24 mg/dL 19 Creatinine 0.73 - 1.22 mg/dL 1.15 Sodium 136 - 144 mmol/L 140 Potassium 3.7 - 5.1 mmol/L 4.3 Chloride 97 - 105 mmol/L 105 CO2 22 - 30 mmol/L 24 Anion Gap 9 - 18 mmol/L 11 eGFR >=60 mL/min/1.73m 78 Cholesterol, Total <200 mg/dL 200 (H) Triglyceride <150 mg/dL 89 HDL Cholesterol >39 mg/dL 47 Non HDL Cholesterol <130 mg/dL 153 (H) Fasting Time hrs 12 VLDL Cholesterol <30 mg/dL 18 TC:HDL Ratio <5.10 4.26 LDL Cholesterol <100 mg/dL 135 (H) LDL:HDL Ratio <2.54 2.87 (H) The 10-year ASCVD risk score (Mango DK, et al., 2019) is: 3.2% Values used to calculate the score: Age: 52 years Sex: Male Is Non- : No Diabetic: No Tobacco smoker: No Systolic Blood Pressure: 118 mmHg Is BP treated: No HDL Cholesterol: 47 mg/dL Total Cholesterol: 200 mg/dL Assessment and Plan Encounter Diagnosis ICD-10-CM 1. Recurrent major depressive disorder, in partial remission ([facility]) F33.41 sertraline (ZOLOFT) 100 mg tablet Overall doing okay 2. AMBROSE on CPAP G47.33 CPAP 3. I[address] ([facility]) Z93.2 Above issues addressed with patient. Patient involved in shared decision making for management of medical issues. History and medications reviewed. Epic updated as needed Refills and/or prescriptions taken care of and meds adjusted as indicated after reviewed history, exam and labs. Health Maintenance reviewed. Updated record and/or ordered tests as recorded. Encouraged on efforts at healthy diet and regular exercise and adequate sleep. Emotional support given. Work on dealing with sleep arrangements and bed issue with girlfriend. Frustrations noted. Does need a better bed to sleep in. Work on ileostomy bag issues and leaking. See patient instructions. [facility] As noted in HPI: Needs to get DME supplier for APAP changed to [employer] (from [employer]) where gets other DME supplies. Uses APAP nightly and benefits from use. Will needs supplies in the next 2 to 3 weeks. Harjeet Bernard MD documented in this encounterUniversity Hospitals Geauga Medical Center05-17-2023 Miscellaneous Notes* Telephone Encounter - Babita Martinez LPN - 02/13/2023 9:00 AM EDT Patient has been identified by name and date of : Yes, Provider Dr. Bernard Date 02/13/23 Time9:30 am Patient phones for refill(s): Requested Prescriptions Pending Prescriptions Disp Refills buPROPion SR (WELLBUTRIN SR) 150 mg 12 hr tablet 180 tablet 3 Sig: Take 1 tablet by mouth twice daily. Date of last office visit in primary care: 10/15/22 next apt 04/05/23 Last 2 Encounter Wt Readings: Date: Wt: 01/09/2023 101.6 kg (224 lb) 11/05/2022 98 kg (216 lb) Previous labs/tests for medication: Not applicable Thank you. Babita Martinez LPN documented in this encounterUniversity Hospitals Geauga Medical Center04-12-2023 Instructions* Patient Instructions* Beckie Eaton DO - 01/09/2023 4:17 PM EDT -So good to see you and glad you are doing great! -Now completed more than 6 months of blood thinner therapy for provoked blood clot in the portal liver vein (likely provoked by surgery and cancer); since the cancer is in remission and no further treatment plans at this point, I think we can stop the blood thinners -Ok to finish off the Eliquis pills, then stop (will take about 48 hours to wean out of your system) -Monitor for symptoms of blood clots in the future: _Chest pain, shortness of breath, dizziness, palpitations _Leg pain or swelling documented in this encounterUniversity Hospitals Geauga Medical Center04-12-2023 History of Present illness Narrative* Beckie Eaton DO - 01/09/2023 3:30 PM EDT Images from the original note were not included. 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 Course was c/b PVT, intra- abdominal abscess (s/p drains), bile leak (s/p biliary stent), anemia requiring transfusions. He was discharged 06/28/22 on Lovenox 100 BID after prolonged admission. Presenting today for follow up. He remained on Lovenox 100 mg BID until Saturday then ran out of the Rx. He held briefly for ERCP on 07/19/22 (biliary stents removed). No bleeding or bruising side effects on Lovenox. He reports he has been doing well since discharge - feeling better everyday. Appetite is good and he has regained weight lost during admission (off TPN now). Stoma functioning well. He has one abdominal drain left in place (one was removed on Saturday). He denies CP/SOB, abdominal pain, or leg swelling. No additional plans for surgeries, chemotherapy, or radiation at this time. No prior personal or family history of VTE. Plan: -Will reduce dose of Lovenox to 80 mg BID based on weight _Monitor for blood counts and for bleeding _Monitor weight and kidney function _Duration of therapy: at least 3-6 months, but potentially extended based on status of malignancy -Discussed option for transition to oral; he prefers not to transition to Coumadin due to need for INR monitoring and absorption of DOACs may be altered after gastric intervention; thus will plan to continue with Lovenox for now RTC in 3-4 months or sooner PRN Addendum 08/03/22: D/w Dr. Denise - stomach mostly intact after surgery, so should have adequate absorption for DOACs D/w Mr. Burrows - he reports the Lovenox is already en route from mail order, so he will stick with the injections for the next few months; will consider transition to DOAC at follow up if we decide toextend therapy Subjective: Presenting today for follow up. His insurance stopped covering Lovenox 10/2022, so we transitioned to Eliquis 5 mg BID. No bleeding or bruising on this medicine. He is doing great. Regained almost all the weight he lost in he hospital and feeling like himself again. Hoping to go back to work in the next few weeks. He denies CP/SOB, abdominal pain, leg pain or swelling. He had gastrocutaneous fistula surgery 09/2022, now healed. All drain tubes have been removed. He reports the cancer is deemed to be in remission at this point. No additional plans for surgeries, chemotherapy, or radiation at this time. Planned for surveillance CT scan and scope in May. No prior personal or family history of VTE. Allergies: has No Known Allergies. Medications: Current Outpatient Medications Medication Sig iv contrast (will be provided with radiology test) CT Chest ABD/PEL-Inject, intravenously, once for1 dose.No IV access, insert saline lock prior to the beginning of sedation, infusion, injection of imaging exam. Discontinue saline lock post exam. If Pt. has a central line or IVAD, may access for administration according to line specific nursing protocol. Once exam is complete flush line and de-access according to line specific nursing protocol in the CT contrast administration guidelines link. enteric contrast (will be provided with radiology test) For CT CHESTABD/PEL W IVCON Routine order Administer, As Directed One Time Only, via Oral, Rectal, both Oral and Rectal, Enteric Tube, Stoma orIndwelling Catheter, Enteric Contrast as designated per enteric contrast guidelines apixaban (ELIQUIS) 5 mg tab(s) Take 1 tablet by mouth twice daily. ferrous sulfate 325 mg (65 mg iron) tablet Take 1 tablet by mouth every other day. buPROPion SR (WELLBUTRIN SR) 150 mg 12 hr tablet Take 1 tablet by mouth twice daily. sertraline (ZOLOFT) 100 mg tablet Take 1.5 tablets by mouth once daily. CPAP Continue Auto PAP @ 5-20 cm of water with humidification. Mask (per patient preference) optional chin strap (if indicated) , filters, tubing, humidifier and lifetime supplies. AMBROSE G47.33 (Patient taking differently: Continue Auto PAP @ 5-20 cm of water with humidification. Mask (per patient preference) optional chin strap (if indicated) , filters, tubing, humidifier and lifetime supplies. AMBROSE G47.33) multivitamin tablet Take 1 tablet by mouth once daily. No current facility-administered medications for this visit. Physical exam: Blood pressure 115/71, pulse 71, weight 101.6 kg (224 lb), SpO2 97 %. General: Alert and oriented, in no acute distress, pleasant mood. HEENT: Head normocephalic, sclera anicteric without injection. Cardiovascular: Heart has a regular rate and rhythm without murmur. Respiratory: Lungs clear auscultation bilaterally. Gastrointestinal: Bowel sounds present. Stoma RLQ. Musculoskeletal: No cyanosis or clubbing. Peripheral vascular: Radial and dorsalis pedis pulses 2+/2 bilaterally. Lower extremities: No edema. Skin: No ulcerations or rashes. Imaging CT A/P 06/19/22: Stable moderate volume pneumoperitoneum. Stable volume of loculated abdominal pelvic ascites, now with findings suspicious for superimposed infection including increased peritoneal enhancement and increased locules of gas within the left upper quadrant loculation as described. No gross extravasation of enteric contrast to suggest bowel leak. Decreased portal venous thrombus. Liver vascular US 06/05/22: Non-occlusive thrombus within the main, left, and right anterior portal veins correlating with the CT 06/04/2022. The remaining hepatic vasculature is patent with appropriately directed flow. Normal sonographic appearance of the liver. Focal thickening along the gallbladder fundus, possibly an area of carcinomatosis. Complex ascites versus additional areas of carcinomatosis within the mid abdomen similar to prior CT. CT A/P 06/04/22: Interval postoperative changes are within expected limits. Moderate volume ascites without organized fluid collection. Probably residual carcinomatosis. 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 Heterogeneous left nephrogram which is nonspecific but could be seen with pyelonephritis. Please correlate with urinalysis. Mild postoperative ileus. Nonspecific right abdominal bowel wall thickening/edema, differential includes inflammatory/infectious or ischemic etiology. Labs Component Latest Ref Rng & Units 01/04/2023 WBC 3.70 - 11.00 k/uL 10.18 RBC 4.20 - 6.00 m/uL 4.68 Hemoglobin 13.0 - 17.0 g/dL 13.5 Hematocrit 39.0 - 51.0 % 43.0 MCV 80.0 - 100.0 fL 91.9 MCH 26.0 - 34.0 pg 28.8 MCHC 30.5 - 36.0 g/dL 31.4 RDW-CV 11.5 - 15.0 % 14.5 Platelet Count 150 - 400 k/uL 509 (H) MPV 9.0 - 12.7 fL 8.8 (L) Neut% % 69.0 Abs Neut (ANC) 1.45 - 7.50 k/uL 7.03 Lymph% % 16.8 Abs Lymph 1.00 - 4.00 k/uL 1.71 Clinch% % 11.3 Abs Clinch <0.87 k/uL 1.15 (H) Eosin% % 2.1 Abs Eosin <0.46 k/uL 0.21 Baso% % 0.5 Abs Baso <0.11 k/uL 0.05 Immature Gran % % 0.3 IMMATURE GRANS (ABS) <0.10 k/uL 0.03 NRBC /100 WBC 0.0 Absolute nRBC <0.01 k/uL <0.01 DTYPE Auto Protein, Total 6.3 - 8.0 g/dL 7.5 Albumin 3.9 - 4.9 g/dL 4.1 Calcium 8.5 - 10.2 mg/dL 9.4 Bilirubin, Total 0.2 - 1.3 mg/dL 0.3 Alkaline Phosphatase 38 - 113 U/L 132 (H) AST 14 - 40 U/L 20 ALT 10 - 54 U/L 23 Glucose 74 - 99 mg/dL 110 (H) BUN 9 - 24 mg/dL 19 Creatinine 0.73 - 1.22 mg/dL 1.15 Sodium 136 - 144 mmol/L 140 Potassium 3.7 - 5.1 mmol/L 4.3 Chloride 97 - 105 mmol/L 105 CO2 22 - 30 mmol/L 24 Anion Gap 9 - 18 mmol/L 11 eGFR >=60 mL/min/1.73m 78 Impression Very nice 52 year old male with PMH of hyperlipidemia, AMBROSE, and 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 Course was c/b PVT, intra-abdominal abscess and fistula (s/p drains), bile leak (s/p biliary stent), anemia requiring transfusions. He was discharged 06/28/22 on Lovenox 100 BID after prolonged admission. Presenting today for follow up. His insurance stopped covering Lovenox 10/2022, so we transitioned to Eliquis 5 mg BID (d/w Dr. Denise - stomach mostly intact after surgery, so should have adequate absorption for DOACs). No bleeding or bruising on this medicine. He is doing great. Regained almost all the weight he lost in he hospital and feeling like himself again. Hoping to go back to work in the next few weeks. He denies CP/SOB, abdominal pain, leg pain or swelling. He had gastrocutaneous fistula surgery 09/2022, now healed. All drain tubes have been removed. He reports the cancer is deemed to be in remission at this point. No additional plans for surgeries, chemotherapy, or radiation at this time. Planned for surveillance CT scan and scope in May. No prior personal or family history of VTE. Plan: -Now completed more than 6 months of therapeutic anticoagulation for provoked PVT (likely provoked by surgery, malignancy); no further plans for treatment for the pseudomyxoma peritonei at this time,but will continue with annual surveillance; will plan to stop Eliquis at this point (he will finishcurrent Rx then stop) -Advised to monitor for signs/symptoms of recurrent VTE after stopping the medication Beckie Eaton DO documented in this encounterUniversity Hospitals Geauga Medical Center04-10-2023 History of Present illness Narrative* Nicolasa Denise DO - 01/07/2023 1:40 PM EDT COLORECTAL SURGERY VIRTUAL VISIT FOLLOW UP I have communicated my name and active licensure. The patient's identity and physical location wereverified at the time of this visit. Either the patient or their legal compliance representative has been informed of the risks and benefits of -- and alternatives to -- treatment through a remote evaluation andconsents to proceed with the evaluation remotely. I had a virtual visit with Mr. Burrows today for follow up.. UPDATED HISTORY: Dov Burrows is a 52 year old male with a now healed gastric fistula. He is looking to discuss routine follow up after CRS/HIPEC for LAMN. PHYSICAL FINDINGS OF NOTE: Patient reported height 6'1 and weight 216 lbs General - Normal, healthy, cooperative, in no acute distress Able to interact verbally by video conference Pulmonary - respiratory effort normal Abdominal - Not performed Motor - patient seen sitting with Normal appearing strength and coordination Anorectal exam - Not Performed I have communicated my name and active licensure. The patient's identity and physical location wereverified at the time of this visit. Either the patient or their legal compliance representative has been informed of the risks and benefits of -- and alternatives to -- treatment through a remote evaluation andconsents to proceed with the evaluation remotely. Medical Decision Making: Assessment Assessment & Diagnosis: Dov Burrows is a 52 year old male s/p CRS and HIPIEC for LAMN/DPAM Data Reviewed: Tests & Documents Reviewed/ordered: Review of prior notes from pcp Review of prior operative reports Review of Pathology Review of Imaging: CT Abdomen, CT Pelvis, CT Chest Review of Labs: CBC, BMP, LFT Review of Procedures / Tests: Colonoscopy I have independently interpreted: CT Abdomen, CT Pelvis, CT Chest I have discussed Dov Burrows's treatment plan and/or results with patient. Treatment plan: Doing well; ok for return to work CT scans yearly along with tumor markers I have confirmed and edited as necessary, the PFSH and ROS obtained by others. Nicolasa Denise DO, FACS, FASCRS Colorectal Surgery Risk of morbidity, mortality and/or complications of treatment plan: high I spent a total of 30 minutes on the date of the service which included preparing to see the patient, [id number] patient care, completing clinical documentation, obtaining and/or reviewing separately obtained history, performing a medically appropriate examination, counseling and educating the pat ient/family/caregiver, ordering medications, tests, or procedures, communicating with other HCPs (not separately reported), independently interpreting results (not separately reported), communicatingresults to the patient/family/caregiver, and care coordination (not separately reported). documented in this encounterUniversity Hospitals Geauga [facility] Center03-22-2023 History of Present illness Narrative* Nicolasa Denise DO - 12/19/2022 10:00 AM EDT No visit documented in this encounterUniversity Hospitals Geauga Medical Center03-20-2023 History of Present illness Narrative* Nicolasa Denise DO - 12/17/2022 1:00 PM EDT No visit documented in this encounterUniversity Hospitals Geauga Medical Center02-22-2023 Miscellaneous Notes* Telephone Encounter - Mary Dotson RN - 11/21/2022 4:44 PM EST Called pt back and told him a prior authorization was needed and the corporation secretary was given the information needed [facility] and was told that the medication needs a prior auth, [facility] is currently pending and takes [address] a response[address]Dr Cruz will wait till tomorrow and if they will provide the medication. If not she will find an alternative.Asked pt why it has been a week since he ran out he states he just called very day to see if it was available and finally called out office. Mary Desai, PEDRO LUIS * Telephone Encounter - Audrey Weston - 11/21/2022 3:22 PM EST November 21, 2022 [id number] Patient Name: Dov Zepeda First Contact Information: [phone] (home) [phone] (cell) Reason For Call: Patient called to ask what is going on with his Lovenox, he stated that he was told that his insurance will not pay for it; he has been without a blood thinner for a week. I called the [facility] and was told that the medication needs a prior auth, pharmacist provided me with the information. [facility] is currently pending and takes 24 hrs for a response. I will check later, but patient is without a blood thinner Physician:Beckie Eaton DO documented in this encounterUniversity Hospitals Geauga Medical Center02-15-2023 Miscellaneous Notes* Telephone Encounter - Audrey Weston - 11/14/2022 11:55 AM EST November 14, 2022 [id number] Patient Name: Dov Zepeda First Contact Information: [phone] (home) [phone] (cell) Call from patient requesting refill. He has only 1 left. Had to reschedule his office visit until December. Requested Prescriptions Pending Prescriptions Disp Refills enoxaparin (LOVENOX) 80 mg/0.8 mL 180 Each 3 Sig: Inject 0.8 mL subcutaneously twice daily. Inject entire contents of one(1) syringe Patient last seen 07/2022 Audrey Weston documented in this encounterUniversity Hospitals Geauga Medical Center02-06-2023 History of Present illness Narrative* Nicolasa Serrano Howie, DO - 11/05/2022 10:20 AM EST COLORECTAL SURGERY Follow-up November 02, 2022 Chief complaint: healed gastric fistula HPI: Dov Burrows is a 52 year old male s/p complex CRS/HIPEC for LAMN. 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 05/29/2022: Exploratory laparotomy; total proctocolectomy with end ileostomy, entire peritoneal debulking of all peritoneal surfaces, splenectomy, debulking of mucin from multiple small bowel loops. Frozen section confirmed low-grade mucinous neoplasm.Total omentectomy, abdominal wall diaphragms full mucin. Resection of the splenic hilum, greater curve of the stomach, short gastrics, left diaphragm, right diaphragm, complete mobilization of the liver, retrohepatic mucinous implantation removal and then we did intraoperative hyperthermic intraperitoneal mitomycin-C 40 mg over 90 minutes. 08/27: Percutaneous drain has ~10-20cc of cloudy white output daily. Patient is otherwise asymptomatic. 09/14: drain study today demonstrates small but persistent gastric communication. ~15cc daily. Milky white. 10/10/22: Endoscopic closure of fistula tract. 10/19/2022: patient reported resolution of leakage. Physical Exam: Ht 185.4 cm (6' 1) Wt 98 kg (216 lb) BMI 28.50 kg/m General - awake, alert, no acute distress Assessment Medical Decision Making: Assessment & Diagnosis: Dov Burrows is a 52 year old male with a now healed gastric fistula following clipping by general surgery colleagues. The gastric fistula occurred following complex CRS/HIPEC for LAMN. Data Reviewed: Tests & Documents Reviewed/ordered: Review of prior notes from general surgery colleagues Review of Imaging: Abnormal X-Rays I have independently interpreted: Abnormal X-Rays I have discussed Dov Burrows's treatment plan and/or results with the patient himself. Treatment plan: Routine follow up CT scan 1 year Colonoscopy in 6 months Attending Note I evaluated the patient and personally participated in the gallagher components. I agree with the resident's findings and plan as documented and have discussed the case and management of the patient's carewith the resident. I have confirmed and edited as necessary, the PFSH and ROS obtained by others. Signature: Nicolasa Densie DO Date: 11/13/2022 Time: 2:47 PM Risk of morbidity, mortality and/or complications of treatment plan: moderate documented in this encounterUniversity Hospitals Geaug[facility] Center01-20-2023 History of Present illness Narrative* Jose Waite PA-C - 10/19/2022 1:55 PM EST HISTORY AND PHYSICAL EXAMINATION SERVICE DATE: 10/19/2022 SERVICE TIME: PRIMARY CARE PHYSICIAN: Harjeet Bernard MD Subjective CHIEF COMPLAINT: post HPI: This is a 52 year old male who presents with Upper endoscopy, injection of fistula tract, closure of tract with [place] clip. Patent reports complete resolution of leakage at gastrocutaneous site. 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 Other and unspecified hyperlipidemia Other malaise and fatigue Unspecified sleep apnea PAST SURGICAL HISTORY Procedure Laterality Date COLONOSCOPY SCREENING 04/26/2022 EGD W/O BRSH SPEC VARICIES INJ 04/26/2022 FAMILY HISTORY Problem Relation Age of Onset Dementia Mother Diabetes Father Pancreatic Cancer Father Social History Tobacco Use Smoking status: Never Smokeless tobacco: Never Vaping Use Vaping Use: Never used Substance Use Topics Alcohol use: Never Drug use: Never (Not in a hospital admission) ALLERGIES No Known Allergies COMPLETE REVIEW OF SYSTEMS: As per HPI Objective PHYSICAL EXAM: Physical Exam Performed: General alert and oriented times 3 There were no vitals taken for this visit. DATA: Diagnostic tests reviewed for today's visit: Operative report Assessment/Plan 1) RTC as needed 2) patient reports resolution of leakage SIGNATURE: Jose Waite PA-C PATIENT NAME: Dov Burrwos DATE: October 19, 2022 TIME: 1:56 PM documented in this encounterUniversity Hospitals Geauga Medical Center01-16-2023 History of Present illness Narrative* Harjeet Bernard MD - 10/15/2022 5:08 PM EST This note was created using NoteWriter. Subjective Dov Burrows is a 52 year old male. Patient presents with: F/U 6 months SUBJECTIVE: Dov Burrows is a 52 year old year old gentleman here today for 6 month follow up appointment for review of medical conditions. Overall doing well considering last year. Still doing well on APAP. Benefits from use. Still working on getting sleep back on track after being in hospital for 30 days. Doing well on current meds. Reviewed hospital admissions and difficult recovery. Continues with positive attitude. Doing well with with managing end ileostomy stoma. 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 Inject entire contents of one(1) syringe ferrous sulfate 325 mg (65 mg iron) tablet Take 1 tablet by mouth daily with breakfast. buPROPion SR (WELLBUTRIN SR) 150 mg 12 hr tablet Take 1 tablet by mouth twice daily. sertraline (ZOLOFT) 100 mg tablet Take 1.5 tablets by mouth once daily. CPAP Continue Auto PAP @ 5-20 cm of water with humidification. Mask (per patient preference) optional chin strap (if indicated) , filters, tubing, humidifier and lifetime supplies. AMBROSE G47.33 (Patient taking differently: Continue Auto PAP @ 5-20 cm of water with humidification. Mask (per patient preference) optional chin strap (if indicated) , filters, tubing, humidifier and lifetime supplies. AMBROSE G47.33) multivitamin tablet Take 1 tablet by mouth once daily. No current facility-administered medications for this visit. Review of Systems Objective BP 120/82 Pulse 81 Temp 36.4 C (97.5 F) Resp 18 Wt 95.7 kg (211 lb) SpO2 97% BMI 27.84 kg/m Physical Exam Vitals reviewed. Constitutional: Appearance: Normal appearance. Eyes: Conjunctiva/sclera: Conjunctivae normal. Cardiovascular: Rate and Rhythm: Normal rate and regular rhythm. Heart sounds: Normal heart sounds. Pulmonary: Effort: Pulmonary effort is normal. Breath sounds: Normal breath sounds. Abdominal: Comments: Stoma site--bag in place Skin: General: Skin is warm and dry. Neurological: General: No focal deficit present. Mental Status: He is alert and oriented to person, place, and time. Psychiatric: Mood and Affect: Mood normal. Behavior: Behavior normal. Thought Content: Thought content normal. Judgment: Judgment normal. Prior labs noted. Assessment and Plan Encounter Diagnosis ICD-10-CM 1. Iron deficiency anemia, unspecified iron deficiency anemia type D50.9 ferrous sulfate 325 mg (65mg iron) tablet CBC Related to prior surgeries, etc. Discussed iron replacement 2. Recurrent major depressive disorder, in partial remission ([facility]) F33.41 Doing fine with current management Continue Zoloft 3. AMBROSE on APAP G47.33 Z99.89 Doing well on APAP and uses routinely. 4. Ileostomy in place ([facility]) Z93.2 5. Encounter for long-term current use of medication Z79.899 COMP METABOLIC PANEL CBC Above issues addressed with patient. Patient involved in shared decision making for management of medical issues. History and medications reviewed. Epic updated as needed Refills and/or prescriptions taken care of and meds adjusted as indicated after reviewed history, exam and labs. Health Maintenance reviewed. Updated record and/or ordered tests as recorded. Encouraged on efforts at healthy diet and regular exercise and adequate sleep. I spent a total of 34 minutes on the date of the service which included [id number] patient care, completing clinical documentation, obtaining and/or reviewing separately obtained history, performing a medically appropriate examination, counseling and educating the patient/family/caregiver, and ordering medications, tests, or procedures. Harjeet Bernard MD documented in this encounterUniversity Hospitals Geauga Medical Center01-04-2023 Miscellaneous Notes* Telephone Encounter - Cleo Chávez RN - 10/03/2022 1:26 PM EST Discussed with Dr. Denise. Per patient: drain is still in place, and draining, the y port to flush has broken off. Dr. Denise would like to make sure this is draining and requested a pic of drain to be sent. I discussed with patient they will send through [employer]. * Telephone Encounter - Callie Hall - 10/02/2022 9:12 AM EST Y drain broke over the weekend. Still able to drain but wants to know what he should do. States theY part with the clamp broke off. [phone] documented in this encounterUniversity Hospitals Geauga Medical Center12-30-2022 History and physical note * Monroe Maloney MD - 09/28/2022 12:05 PM EST Consultation requested by Dr. Denise for an opinion regarding gastric leak. My final recommendations will be communicated back to the requesting physician by way of shared Medical record or letter to requesting physician via US mail. GENERAL SURGERY H&P SERVICE DATE: 09/28/2022 SERVICE TIME: 12:05 PM PRIMARY CARE PHYSICIAN: Harjeet Bernard MD Subjective CHIEF COMPLAINT: Gastrocutaneous fistula HPI: This is a 52 year old male with history of DVT on therapeutic Lovenox, AMBROSE and Low grade appendiceal mucinous neoplasm s/p Cytoreductive surgery/ HIPEC by Dr. Denise 05/29/2022 c/b LUQ abscess c/b gastrocutaneous fistula. Patient underwent percutaneous drain placement on 08/27. Drain injection studies have shown persistent gastrocutaneous fistula. Patient reports approximately 15 cc of output daily. Patient denies any abdominal pain, nausea, vomiting or decreased appetite. Patient reports that his drain output is not affected by PO intake. Patient continues to have good stoma output. 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 Other and unspecified hyperlipidemia Other malaise and fatigue Unspecified sleep apnea PAST SURGICAL HISTORY Procedure Laterality Date COLONOSCOPY SCREENING 04/26/2022 EGD W/O BRSH SPEC VARICIES INJ 04/26/2022 FAMILY HISTORY Problem Relation Age of Onset Dementia Mother Diabetes Father Pancreatic Cancer Father Social History Tobacco Use Smoking status: Never Smokeless tobacco: Never Vaping Use Vaping Use: Never used Substance Use Topics Alcohol use: Never Drug use: Never (Not in a hospital admission) ALLERGIES No Known Allergies COMPLETE REVIEW OF SYSTEMS: GENERAL: No weight loss, malaise or fevers RESPIRATORY: Negative for cough, hemoptysis, wheezing, COPD, dyspnea or shortness of breath CARDIOVASCULAR: Negative for chest pain, leg swelling, CHF or palpitations GI: No nausea, vomiting, or change in stoma output Objective PHYSICAL EXAM: Physical Exam Performed: GENERAL: Alert, no distress, cooperative LUNGS: Lungs clear to auscultation, Good diaphragmatic excursion CARDIAC: Normal S1 and S2; no rubs, murmurs, or gallops ABDOMEN: soft, non-tender, LUQ pigtail drain in place, output murky BP 107/62 Pulse 81 Ht 6' 1 (1.85m) Wt 210 lb 3.2 oz (95.3kg) BMI 27.74 kg/(m^2). DATA: Diagnostic tests reviewed for today's visit: Most recent labs and imaging results. Assessment/Plan Patient is a 52 yo male with history of DVT on therapeutic Lovenox, AMBROSE and Low grade appendiceal mucinous neoplasm s/p Cytoreductive surgery/ HIPEC by Dr. Denise 05/29/2022 c/b LUQ abscess c/b gastrocutaneous fistula. Patient presents for discussion of endoscopic options. Patient continues to do well since surgery. He reports weight gain and good PO intake. Drain with around 15 cc of output daily. - Will plan for EGD and endoscopic intervention - Will need to hold Therapeutic lovenox prior to EGD Medical Decision Making: Medical Decision Making Level: 1 - N/A SIGNATURE: Jovany Mosley MD PATIENT NAME: Dov Burrows DATE: September 28, 2022 TIME: 12:05 PM Attending Note I evaluated the patient and personally participated in the gallagher components. I agree with the resident's findings and plan as documented and have discussed the case and management of the patient's carewith the resident. Signature: Monroe Maloney MD Date: 09/28/2022 Time: 12:43 PM documented in this encounterUniversity Hospitals Geauga Medical Center12-16-2022 History of Present illness Narrative* Nicolasa Denise DO - 09/14/2022 9:40 AM EST COLORECTAL SURGERY Follow-up September 05, 2022 Chief complaint: drain follow HPI: Dov Burrows is a 52 year old male s/p complex CRS/HIPEC for LAMN. He is here today for routine follow up. 08/27: Percutaneous drain has ~10-20cc of cloudy white output daily. Patient is otherwise asymptomatic. 09/14: drain study today demonstrates small but persistent gastric communication. ~15cc daily. Milky white. No fever, chills, minimal abdominal pain. Stoma working well. Physical Exam: Ht 185.4 cm (6' 1) Wt 93.3 kg (205 lb 9.6 oz) BMI 27.13 kg/m General: WDWN, no acute distress HEENT: Anicteric CV: RRR Chest: Clear to auscultation bilaterally Abdomen: Soft, NT, ND, SEN in place, skin non-erythematous Extrem: WWP Assessment Medical Decision Making: Assessment & Diagnosis: Dov Burrows is a 52 year old male s/p CRS/HIPEC who presents with LUQ drain communicating with stomach. Interval contrast study shows improvement in size of fistula but communication is persistent. Given risk of uncontrolled gastric leak, referral to upper GI surgery for possible endoscopic intervention. Data Reviewed: Tests & Documents Reviewed/ordered: Review of prior notes from [facility] Review of prior operative reports Review of Imaging: CT Abdomen, CT Pelvis I have independently interpreted: CT Abdomen, CT Pelvis I have discussed Dov Burrows's treatment plan and/or results with patient and . Treatment plan: - Referral to MIS/Bariatric Surgery for possible endoscopic intervention Attending Note I evaluated the patient and personally participated in the gallagher components. I agree with the resident's findings and plan as documented and have discussed the case and management of the patient's carewith the resident. I have confirmed and edited as necessary, the PFSH and ROS obtained by others. Signature: Nicolasa Denise DO Date: 09/26/2022 Time: 9:53 AM Risk of morbidity, mortality and/or complications of treatment plan: high documented in this encounterUniversity Hospitals Geauga Medical Center12-16-2022 History of Present illness Narrative* Shavonne Augustin, RT(R) - 09/14/2022 8:20 AM EST Radiology Service Progress Note PATIENT NAME: Dov Burrows DATE OF SERVICE: September 14, 2022 TIME: 8:44 AM PATIENT IDENTITY VERIFICATION COMPLETED USING TWO (2) IDENTIFIERS: Name and Date of confirmedby patient verbally. FALL SCREENING: Has the patient had 2 falls in the last year or 1 fall with injury or currently using an Ambulatory Assistive Device (Walker, Cane, Wheelchair, Crutches, etc.)? No PATIENT GENDER DATA: Male PATIENT RELEVANT IMPLANT DATA REVIEWED: Yes RADIOLOGY DEPARTMENT: General X-ray: Exam(s) Completed: GI/ Procedure(s): drain injection PERIPHERAL IV DATA: Not applicable SIGNED BY: RT Judith(R) September 14, 2022 8:44 AM documented in this encounterUniversity Hospitals Geauga Medical Center12-02-2022 Miscellaneous Notes* Telephone Encounter - Callie Hall - 08/31/2022 11:14 AM EST Pt. Calling stating he needs a letter stating why he is still out of work and unable to return to work [phone] ATTN: Richy Arnold ([facility]) phone number: [phone] *Letter sent at 3:30 pm documented in this encounterUniversity Hospitals Geauga Medical Center11-28-2022 History of Present illness Narrative* Nicolasa Denise DO - 08/27/2022 9:40 AM EST COLORECTAL SURGERY Follow-up August 27, 2022 Chief complaint: s/p HIPEC HPI: Dov Burrows is a 52 year old male s/p complex CRS/HIPEC for LAMN. He is here today for routine follow up. Percutaneous drain has ~10-20cc of cloudy white output daily. Patient is otherwise asymptomatic. Physical Exam: There were no vitals taken for this visit. General - awake, alert, no acute distress Abdominal - soft, NT, ND, percutaneous drain with SNE bulb containing thick white cloudy fluid Extrem - WWP Assessment Medical Decision Making: Assessment & Diagnosis: Dov Burrows is a 52 year old male with LAMN s/p HIPEC with gastric fistula with percutaneous LUQ pigtail. Prior tubogram shows ongoing communication with stomach. However, output has gradually downtrended since then and patient remains asymptomatic. Will repeat tubogram to assess for persistentgastric communication. If this is present, referral to GI for endoscopic closure. Data Reviewed: Tests & Documents Reviewed/ordered: Review of prior operative reports Review of Imaging: CT Abdomen, CT Pelvis, Abnormal X-Rays I have independently interpreted: CT Abdomen, CT Pelvis, Abnormal X-Rays I have discussed Dov Burrows's treatment plan and/or results with patient and . Treatment plan: - Repeat tubogram - Follow-up in clinic after study Attending Note I evaluated the patient and personally participated in the gallagher components. I agree with the resident's findings and plan as documented and have discussed the case and management of the patient's carewith the resident. I have confirmed and edited as necessary, the PFSH and ROS obtained by others. Signature: Nicolasa Denise DO Date: 08/30/2022 Time: 10:40 AM Risk of morbidity, mortality and/or complications of treatment plan: high documented in this encounterUniversity Hospitals Geauga Medical Center11-14-2022 Miscellaneous Notes* Telephone Encounter - Cleo Chávez RN - 08/13/2022 4:33 PM EST Called patient- pt wanted to notify us that suture came loose, however drainage is same as before suture came loose. He will continue to tape until he see's us on the . If drainage stops, if he notices any crazy changes- he will call us. We discussed slowly adding weight bearing to daily routine to gain more strength before going back to work. Ultimately we will reassess where hes at in progress to go back at next appointment. * Telephone Encounter - Callie Hall - 08/13/2022 8:44 AM EST Suture came loose and drain came out a little bit. Pt states the drain seems to be working as normal. He has it taped down and it hasn't moved since he noticed it came loose. [phone] documented in this encounterUniversity Hospitals Geauga Medical Center11-02-2022 History of Present illness Narrative* Beckie Eaton, DO - 08/01/2022 12:15 PM EDT Images from the original note were not included. 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 consulted for flinging of post-operative PVT on CT today. He has been started on IVUF heparin standard nomogram. Multiple transfusions since surgery, last 06/03/22. Currently on TPN. Imaging: RECOMMENDATIONS: 1. Portal vein thrombus _Provoked in the setting of surgery, malignancy -Agree with IVUF heparin for now -Options for home going anticoagulation include Lovenox 1 mg/kg monotherapy versus bridge to Coumadin (depending on nutritional status) _Duration of therapy: at least 3-6 months, but potentially extended pending status of malignancy Subjective: He was discharged 06/28/22 on Lovenox 100 BID after prolonged admission. Presenting today for follow up. He remained on Lovenox 100 mg BID until Saturday then ran out of the Rx. He held briefly for ERCP on 07/19/22 (biliary stents removed). No bleeding or bruising side effects on Lovenox. He reports he has been doing well since discharge - feeling better everyday. Appetite is good and he has regained weight lost during admission (off TPN now). Stoma functioning well. He has one abdominal drain left in place (one was removed on Saturday). He denies CP/SOB, abdominal pain, or leg swelling. No additional plans for surgeries, chemotherapy, or radiation at this time. No prior personal or family history of VTE. Allergies: has No Known Allergies. Medications: Current Outpatient Medications Medication Sig acetaminophen (TYLENOL) 500 mg tablet Take 1-2 tablets by mouth every 6 hours as needed for pain. (Patient not taking: No sig reported) ferrous sulfate 325 mg (65 mg iron) tablet Take 1 tablet by mouth daily with breakfast. buPROPion SR (WELLBUTRIN SR) 150 mg 12 hr tablet Take 1 tablet by mouth twice daily. sertraline (ZOLOFT) 100 mg tablet Take 1.5 tablets by mouth once daily. CPAP Continue Auto PAP @ 5-20 cm of water with humidification. Mask (per patient preference) optional chin strap (if indicated) , filters, tubing, humidifier and lifetime supplies. AMBROSE G47.33 (Patient not taking: No sig reported) multivitamin tablet Take 1 tablet by mouth once daily. No current facility-administered medications for this visit. Physical exam: This visit was conducted as a virtual visit. Imaging CT A/P 06/19/22: Stable moderate volume pneumoperitoneum. Stable volume of loculated abdominal pelvic ascites, now with findings suspicious for superimposed infection including increased peritoneal enhancement and increased locules of gas within the left upper quadrant loculation as described. No gross extravasation of enteric contrast to suggest bowel leak. Decreased portal venous thrombus. Liver vascular US 06/05/22: Non-occlusive thrombus within the main, left, and right anterior portal veins correlating with the CT 06/04/2022. The remaining hepatic vasculature is patent with appropriately directed flow. Normal sonographic appearance of the liver. Focal thickening along the gallbladder fundus, possibly an area of carcinomatosis. Complex ascites versus additional areas of carcinomatosis within the mid abdomen similar to prior CT. CT A/P 06/04/22: Interval postoperative changes are within expected limits. Moderate volume ascites without organized fluid collection. Probably residual carcinomatosis. 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 Heterogeneous left nephrogram which is nonspecific but could be seen with pyelonephritis. Please correlate with urinalysis. Mild postoperative ileus. Nonspecific right abdominal bowel wall thickening/edema, differential includes inflammatory/infectious or ischemic etiology. Labs Component Latest Ref Rng & Units 07/25/2022 WBC 4.4 - 11.0 K/uL 8.1 Hemoglobin 13 - 16.5 g/dL 9.5 (A) Hematocrit 40 - 54 % 31.0 (A) Platelet Count 150 - 450 K/uL 721 (A) Neut% 47 - 70 59.7 Eosin% 0 - 5 4.6 Abs Neut (ANC) 2 - 7 K/uL 4.8 Creatinine 0.7 - 1.3 MG/DL 0.69 (A) Alkaline Phosphatase 45 - 117 145 (A) AST 15 - 37 22 ALT 16 - 61 31 CK 39 - 308 174 Impression Very nice 52 year old male with PMH of hyperlipidemia, AMBROSE, and recently diagnosed pseudomyxoma peritonei (s/p ex lap with debulking, proctocolectomy with ileostomy, omentomectomy, splenectomy, resection of Butch's capsule/diaphragm/greater curvature of stomach, ureteral stents, and HIPEC on 05/29-06/01/22). Course was c/b PVT, intra-abdominal abscess (s/p drains), bile leak (s/p biliary stent), anemia requiring transfusions. He was discharged 06/28/22 on Lovenox 100 BID after prolonged admission. Presenting today for follow up. He remained on Lovenox 100 mg BID until Saturday then ran out of the Rx. He held briefly for ERCP on 07/19/22 (biliary stents removed). No bleeding or bruising side effects on Lovenox. He reports he has been doing well since discharge - feeling better everyday. Appetite is good and he has regained weight lost during admission (off TPN now). Stoma functioning well. He has one abdominal drain left in place (one was removed on Saturday). He denies CP/SOB, abdominal pain, or leg swelling. No additional plans for surgeries, chemotherapy, or radiation at this time. No prior personal or family history of VTE. Plan: -Will reduce dose of Lovenox to 80 mg BID based on weight _Monitor for blood counts and for bleeding _Monitor weight and kidney function _Duration of therapy: at least 3-6 months, but potentially extended based on status of malignancy -Discussed option for transition to oral; he prefers not to transition to Coumadin due to need for INR monitoring and absorption of DOACs may be altered after gastric intervention; thus will plan to continue with Lovenox for now RTC in 3-4 months or sooner CHRIS Eaton DO documented in this encounterUniversity Hospitals Geauga Medical Center10-31-2022 History of Present illness Narrative* Amanda Camargo RN - 07/30/2022 11:34 [place] [address] Patient: Dov Burrows Patient Address: [address] [place] [address] Preferred Gender: male Date of : 1970 Type of Stoma: End Ileostomy Diagnosis: Low-grade mucinous neoplasm of the appendix: OSTOMY SUPPLY ORDER FORM [facility] [place]. Accessories: 10/03 [employer] Convex Insert 1 12/01 Wafer # [id number] 30 day use - 2 Boxes Other: [employer]Hope support belt [id number] 2 per year Refills: 11 Attending Physician: Dr. Denise For immediate authorization, please contact the physician s office. [facility] [facility] Nurse: VIKY Levine, CWOCN SIGNATURE: Amanda Camargo RN PATIENT NAME: Dov Burrows DATE: July 30, 2022 TIME: 11:34 AM CONTACT #: [phone] EMAIL: * Amanda Camargo RN - 07/30/2022 11:21 AM EDT ET/WOCN Nursing Consult Topic: ET/WOCN Consultation Note ET Outcome: Patient seen today for follow up appointment with Dr Denise. Patient denies any issueswith his current pouching system. Upon assessment circumferential undermining noted. Pouching system slightly modified, convex insert added. Patient given supplies. Order form faxed to [employer]. Patient also requesting to be fit for a NuHope support belt. Measurements are 36.5 lying, 36 standing,5 width belt, order number is [id number]. Patient was fit and order was added to his order form for [employer]. ET's Next Scheduled Visit: as needed Stoma Type: End ileostomy Diameter:1 8 Location: RUQ Protrusion: Budded Mucosal condition and color: Red and moist Mucocutaneous junction Intact Peristomal Skin: Clear and intact Location of Skin Impairment: N/A Peristomal contour: Rounded with dip from 3-9 o'clock Supportive Tissue: Semisoft Character of output: soft brown liquid Emptying frequency per day: varies Current pouching system: Removed: 1 3/4 Surfit Natura solid flat Durahesive flange with Coloplast 4.2mm Brava ring and Drainable pouch Current wearing time: 3 days Recommendations: Skin Care: Stomahesive powder dusted to skin followed by Cavilon skin prep Pouching System: Applied: 1 3/4 Surfit Natura solid flat Durahesive flange with 1 1/4 convex insert, Coloplast 4.2mm Brava ring and Drainable pouch Comment: 4 inserts given Time Increment: 45 minutes Amanda Camargo RN BSN CWOCN on-call pager [phone] M-F 8-4, weekends 7-3 documented in this encounterUniversity Hospitals Geauga [facility] Center10-31-2022 History of Present illness Narrative* Nicolasa Denise, - 07/30/2022 10:00 AM EDT COLORECTAL SURGERY Follow-up July 26, 2022 Chief complaint: Follow-up after drain study HPI: Dov Burrows is a 52 year old male here today to be evaluated for carcinomatosis. He admitsto some recent unintentional weight loss, and abdominal distention. CT scan showed omental caking, and pelvic masses. Biopsy of peritoneum showed mucin. He was taken into the OR on 05/29/22 for CRS/HIPEC. 05/29:1. Exploratory laparotomy. 2. Lysis of adhesions lasting greater than 2 hours. 3. Total proctocolectomy with end ileostomy, entire peritoneal debulking of all peritoneal surfaces, splenectomy, debulking of mucin from multiple small bowel loops. Frozen section confirmed low-grade mucinous neoplasm. Total omentectomy, abdominal wall diaphragms full mucin. 4. Mobilization of splenic flexure. This procedure consisted of total proctocolectomy and we did omentectomy, splenectomy, and we did the midgut and hindgut portions of the operation and extracted multiple L of mucinous ascites for low-grade mucinous neoplasm of the appendix. 06/01: 1. Re-opening of recent laparotomy. 2. Resection and removal of Butch's capsule of the liver. 3. Resection of the splenic hilum, greater curve of the stomach, short gastrics, left diaphragm, right diaphragm, complete mobilization of the liver, retrohepatic mucinous implantation removal and then we did intraoperative hyperthermic intraperitoneal mitomycin-C 40 mg over 90 minutes. Physical Exam: Ht 185.4 cm (6' 1) Wt 80.7 kg (178 lb) BMI 23.48 kg/m General - awake, alert, no acute distress Abdominal - soft ; drain with low output Assessment Medical Decision Making: Assessment & Diagnosis: Dov Burrows is a 52 year old male s/p complex CRS/HIPEC Data Reviewed: Tests & Documents Reviewed/ordered: Review of prior notes from pcp Review of prior operative reports Review of Pathology Review of Imaging: CT Abdomen, CT Pelvis Review of Labs: CBC Review of Procedures / Tests: drain injection study I have independently interpreted: CT Abdomen, CT Pelvis I have discussed Dov Burrows's treatment plan and/or results with patient. Treatment plan: Keep drain Doing very well overall Improving nutrition Will address drain/gastric area with repeat Ct scans in future; may slowly dc drain as well I have confirmed and edited as necessary, the PFSH and ROS obtained by others.' Risk of morbidity, mortality and/or complications of treatment plan: high documented in this encounterUniversity Hospitals Geauga Medical Center10-27-2022 Nurse Note* Amanda Solorzano Adm Asst I - 07/26/2022 10:29 AM EDT Per orders of will stop as planned- he has enough IV abx until Saturday 07/28. Home carenurse Ok to pull out picc on Saturday if home care is able to do so. IF not, Saturday is fine. Message sent to Pharmacy. Amanda Solorzano Adm Asst I documented in this encounterUniversity Hospitals Geauga Medical Center10-27-2022 History of Present illness Narrative* Silvana Herrera MD - 07/26/2022 10:00 AM EDT VIRTUAL VISIT PROGRESS NOTE This is a virtual visit using [employer] video visit. It required patient-provider interaction for themedical decision making as documented below. Dov Burrows is a 52 year old male seen for abd infection. HISTORY REVIEWED (electronic chart updated): Doing better every day Tolerating abx No fevers or chills No abdominal pain Drains in place- minimal <30 No muscle aches 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 Other and unspecified hyperlipidemia Other malaise and fatigue Unspecified sleep apnea PAST SURGICAL HISTORY Procedure Laterality Date COLONOSCOPY SCREENING 04/26/2022 EGD W/O BRSH SPEC VARICIES INJ 04/26/2022 FAMILY HISTORY Problem Relation Age of Onset Dementia Mother Diabetes Father Pancreatic Cancer Father Social History Tobacco Use Smoking status: Never Smokeless tobacco: Never Vaping Use Vaping Use: Never used Substance Use Topics Alcohol use: Never Drug use: Never Current Outpatient Medications Medication Sig acetaminophen (TYLENOL) 500 mg tablet Take 1-2 tablets by mouth every 6 hours as needed for pain. (Patient not taking: Reported on 07/09/2022) enoxaparin (LOVENOX) 100 mg/mL syrg Inject 1 mL subcutaneously every 12 hour ferrous sulfate 325 mg (65 mg iron) tablet Take 1 tablet by mouth daily with breakfast. buPROPion SR (WELLBUTRIN SR) 150 mg 12 hr tablet Take 1 tablet by mouth twice daily. sertraline (ZOLOFT) 100 mg tablet Take 1.5 tablets by mouth once daily. CPAP Continue Auto PAP @ 5-20 cm of water with humidification. Mask (per patient preference) optional chin strap (if indicated) , filters, tubing, humidifier and lifetime supplies. AMBROSE G47.33 (Patient not taking: Reported on 07/09/2022) multivitamin tablet Take 1 tablet by mouth once daily. No current facility-administered medications for this visit. ALLERGIES No Known Allergies REVIEW OF SYSTEMS: GENERAL: Denies fever, chills, appetite good HEENT: Denies sore throat, congestion RESPIRATORY: Denies any cough, dyspnea CARDIOVASCULAR: Denies any chest pain GASTROINTESTINAL: Denies any nausea, vomiting; output good with the stoma (has had some leaking) GENITOURINARY: Denies dysuria MUSCULOSKELETAL: Denies new joint pain NEURO: Denies MOREJON HEMATOLOGY/LYMPHATIC/IMMUNOLOGIC: Denies bleeding ENDOCRINE: No abnormal sweats All other systems reviewed and negative unless otherwise stated in the HPI LABS: Component Latest Ref Rng & Units 07/25/2022 WBC 4.4 - 11.0 K/uL 8.1 Hemoglobin 13 - 16.5 g/dL 9.5 (A) Hematocrit 40 - 54 % 31.0 (A) Platelet Count 150 - 450 K/uL 721 (A) Neut% 47 - 70 59.7 Eosin% 0 - 5 4.6 Abs Neut (ANC) 2 - 7 K/uL 4.8 Creatinine 0.7 - 1.3 MG/DL 0.69 (A) Alkaline Phosphatase 45 - 117 145 (A) AST 15 - 37 22 ALT 16 - 61 31 CK 39 - 308 174 ASSESSMENT/PLAN: (K65.1) Intra-abdominal abscess (HCC) (primary encounter diagnosis) (B37.9) Imelda infection (A49.1) Enterococcal infection (A49.8) Infection due to Enterobacter cloacae Comment: Summary of case copied from my outpatient note on 07/09/2022, current status updated below. 52 year old male AMBROSE, HLD, appendiceal tumor associated with pseudomyxoma peritoneum diagnosed in 03/2022 s/p multiple surgeries: 05/29/20- exploratory laparotomy, debulking, total colectomy, LAR, EI, omentectomy splenectomy. During debulking of the tumor he was slow but steadily de-escalating pressor requirements starting with phenylephrine and ultimately ending up on phenylephrine nor epi and vasopressin to support his pressors with presumptive diagnosis of basal aplasia in OR estimated blood loss of 1 L. 06/01/2022- most recent stage II resection of butch's capsule, medically hilum resection further debulking, plan for somatic in [facility] which was complicated by bile leak from gallbladder and portal vein thrombus 06/06/2022 ERCP with pancreatic duct and CBD stent placement CT on 06/19 with stable volume of loculated abdominal pelvic ascites, now with findings suspicious for superimposed infection including increased peritoneal enhancement and increased locules of gas within the left upper quadrant loculation, s/p drain placement on 06/20 Cultures from 06/20 w/enteric isa including Enterobacter, C glabrata and E faecium (S to daptomycin) Discharged on IV dapto/micafungin/ertapenem. Drain injection study with LUQ cavity with communication to stomach, large R abd cavity. Extended abx x 2 more weeks. Discussed w/Dr. Denise. On today's visit, he is doing well on treatment. PLAN: Stop as planned- he has enough antibiotics until Saturday Can pull out PICC line on Saturday after abx Advised patient to monitor for fevers or inc abdominal pain after completion of antibiotics Reminded patient of flu shot and covid booster I spent a total of 13 minutes on the date of the service which included preparing to see the patient, [id number] patient care, and completing clinical documentation Silvana Herrera MD documented in this encounterUniversity Hospitals Geauga Medical Center10-21-2022 History of Present illness Narrative* Graciela Weeks RN - 07/20/2022 3:14 PM EDT TRANSITION CARE MANAGEMENT (TCM) FOLLOW-UP NOTE Provider Action/FYI: Attempted to reach patient. Unable to reach patient. Left message. Summary: SUMMARY: Pt discharged from [facility] on 06/28/22. Admitted for: Mass of appendix Concerns: Unable to reach patient. Left message. Corporate Secretary plan for next outreach: No further follow up needed at this time Signature Graciela Weeks RN July 20, 2022 documented in this encounterUniversity Hospitals Geauga Medical Center10-20-2022 Nurse Note* Amanda Danielson RN - 07/19/2022 1:34 PM EDT AMBULATORY PATIENT EDUCATION NOTE TOPIC: GI PROCEDURES: Endoscopic Retrograde CholangioPancreatography(ERCP) with or without biopsy,stenting,dilation and/or treatment READINESS TO LEARN INSTRUCTION PROVIDED TO: Patient, readness to learn accessed prior to procedure COGNITIVE ABILITY: Alert and oriented PTED MOTIVATION TO LEARN: Interested FAMILY SUPPORT: High - Very involved in pt care IPATIENT LEARNS BEST BY: Individual Instruction FACTORS AFFECTING LEARNING: None PHYSICAL LIMITATIONS AFFECTING LEARNING: None LEARNING RESPONSE METHOD OF INSTRUCTION: Individual instruction PATIENT / FAMILY RESPONSE: Verbalizes understanding of: WORSENING CONDITION- Signs and symptoms of aworsening condition that warrant a call to the physician FOLLOW-UP PLAN: Patient instructed to call with any further issues SUPPLEMENTAL MATERIAL: Procedure Discharge Instructions REFERRAL (RECOMMENDATION): None Electronically Signed By: Amanda Danielson RN * Tim Pascual LPN - 07/19/2022 12:22 PM EDT PRE OP LEARNING ASSESSMENT PROCEDURE/SURGERY: GI PROCEDURES: ERCP READINESS TO LEARN COGNITIVE ABILITY: Alert and oriented MOTIVATION TO LEARN: Eager FAMILY SUPPORT: None - Unavailable/disinterested PATIENT LEARNS BEST BY: Individual Instruction FACTORS AFFECTING LEARNING: None PHYSICAL LIMITATIONS AFFECTING LEARNING: None Electronically Signed By: Tim Pascual LPN In Department: GASTROENTEROLOGY documented in this encounterUniversity Hospitals Geauga Medical Center10-14-2022 History of Present illness Narrative* Graciela Weeks RN - 07/13/2022 3:06 PM EDT TRANSITION CARE MANAGEMENT (TCM) FOLLOW-UP NOTE Provider Action/FYI: Spoke to patient. Pt is doing well. Is improving everyday. Drainage tubes will stay in for a few more weeks. IV antibiotics will also continue for a few more weeks. Denies questions or concerns. Appointments for Next 60 Days Date Time Provider Location Dept Phone 07/19/2022 1:00 PM HANNAH MCNAIR Q dg [phone] 07/19/2022 1:00 PM [facility] [phone] 07/26/2022 10:00 AM SILVANA HERRERA G Bld[facility] [phone] 07/30/2022 10:00 AM NICOLASA DENISE A Bldg [phone] 08/01/2022 12:15 PM BECKIE EATON [facility] [phone] Patient identified by name and date of : YES Spoke to patient Summary: SUMMARY: Pt discharged from [facility] on 06/28/22. Admitted for: Mass of appendix Operations During Hospitalization: 05/29/22: Exploratory laparotomy Debulking Omentectomy Total colectomy with LAR End ileostomy Splenectomy Ureteral stent placement Debulking of mucin from small bowel Frozen from omentum - LGMN 06/01/22: Reopening of recent laparotomy Resection of [place]'s capsule of liver Resection of multiple mucinous nodules through out - resection of splenic hilum Debulking Intraoperative hyperthermic chemo administration over 90 mins Mitomycin C Procedures During Hospitalization: Blood transfusion Abdominal x-ray MRCP ERCP PICC line placement Chest x-ray Abdomen/pelvis CT scan Liver US CT-guided drain placement to abdominopelvic fluid collections x2 Concerns: Denies needs or concerns Corporate Secretary plan for next outreach: No further follow up needed at this time Signature Graciela Weeks RN July 13, 2022 documented in this encounterUniversity Hospitals Geauga Medical Center10-13-2022 Miscellaneous Notes* Telephone Encounter - Niraj Miller RN - 07/12/2022 4:22 PM EDT GI Pre-Procedure Spoke with patient: Yes Confirmed date scheduled and patient report time: Yes Procedure Planned:Endoscopic Retrograde CholangioPancreatography(ERCP) with or without biopsy,stenting,dilation and/or treatment Is the patient on blood thinners?no Procedure Instructions given to patient: Yes, and they verbalized their understanding of instructions given Patient instructed to take prescribed preparation prior to procedure:Yes, and they verbalized theirunderstanding of instructions given Patient instructed to have family/friend present for procedure transport home:Patient/patient compliance representative was told that if they do not have a responsible adult accompany them to their procedure; and remain in the endoscopy area until they are discharged; that their procedure cannot be done with s edation or anesthesia and may be cancelled. and They verbalized their understanding and agree to have a responsible adult accompany the patient to their procedure and remain in the endoscopy area. Any barriers to Patient learning: Patient/Patient Coffee Host responded appropriately on phone. Type of instruction given: Verbal by telephone contact. NIRAJ Miller RN documented in this encounterUniversity Hospitals Geauga Medical Center10-12-2022 Nurse Note* Amanda Solorzano Adm Asst I - 07/11/2022 4:05 PM EDT Per orders of Dr.Sharon maintain picc, may need to restart IV antibiotics. Further orders to follow. Message sent to Pharmacy. Amanda Solorzano Adm Asst I documented in this encounterUniversity Hospitals Geauga Medical Center10-12-2022 Miscellaneous Notes* Telephone Encounter - Silvana Herrera MD - 07/11/2022 3:05 PM EDT Called patient. Will discuss with Dr. Denise. documented in this encounterUniversity Hospitals Geauga Medical Center10-11-2022 History of Present illness Narrative* RT Yoana(R) - 07/10/2022 3:20 PM EDT Radiology Service Progress Note PATIENT NAME: Dov Burrows DATE OF SERVICE: July 10, 2022 TIME: 3:00 PM PATIENT IDENTITY VERIFICATION COMPLETED USING TWO (2) IDENTIFIERS: Name and Date of confirmedby patient verbally. FALL SCREENING: Has the patient had 2 falls in the last year or 1 fall with injury or currently using an Ambulatory Assistive Device (Walker, Cane, Wheelchair, Crutches, etc.)? No PATIENT GENDER DATA: Male PATIENT RELEVANT IMPLANT DATA REVIEWED: Yes RADIOLOGY DEPARTMENT: General X-ray: Exam(s) Completed: GI/ Procedure(s): XR ABCESS DRAIN INJECTION PERIPHERAL IV DATA: Not applicable SIGNED BY: RT Yoana(R) July 10, 2022 3:00 PM documented in this encounterUniversity Hospitals Geauga Medical Center10-10-2022 Miscellaneous Notes* Telephone Encounter - Liseth Castellano LPN - 07/09/2022 12:03 PM EDT Informed patient of Dr. Eaton's recommendations and he verbalized understanding. * Telephone Encounter - Beckie Eaton DO - 07/09/2022 11:48 AM EDT ERCP scheduled 07/19/22. Pls advise pt to hold PM dose of Lovenox the day prior to procedure and AMdose the morning of the procedure. He should resume when instructed by the GI team. * Telephone Encounter - Madisyn Rai - 07/09/2022 11:42 AM EDT July 09, 2022 Patient Contact Number: [phone] (home) [phone] (cell) Patient last seen within the last year: Yes Date of last office visit: Visit date not found Reason For Call: Medication Issue/Question: Patient has a procedure on the and would like to know when he should stop his Lovenox and start back up. Physician: Beckie Eaton DO Patient was informed that non-urgent calls may be returned within the next three business days. Yes Madisyn Rai documented in this encounterUniversity Hospitals Geauga Medical Center10-10-2022 Instructions* Patient Instructions* Silvana Herrera MD - 07/09/2022 11:18 AM EDT Vascular Medicine recs: -continue lovenox 1mg/kg injections twice daily -follow up with vascular medicine in 3-4 weeks for continued anticoagulation management and monitoring. (Tentatively August 01 video visit per their office, if this does not appear in mychart by next week please call Dr. Beckie Eaton office at [phone]) documented in this encounterUniversity Hospitals Geauga Medical Center10-10-2022 History of Present illness Narrative* Silvana Herrera MD - 07/09/2022 11:00 AM EDT Dov Burrows is a 52 year old male with a history of follow up INTERVAL EVENTS: Decreased amount from the drains. No fevers or chills. He is improving daily. He was using a walker initially at home, and now with walking stick. No abd pain, nausea, vomiting. Has been eating ok. No muscle aches. No issues with PICC line and IV abx. CURRENT MEDICATIONS: Current Outpatient Medications Medication Sig acetaminophen (TYLENOL) 500 mg tablet Take 1-2 tablets by mouth every 6 hours as needed for pain. (Patient not taking: Reported on 07/09/2022) enoxaparin (LOVENOX) 100 mg/mL syrg Inject 1 mL subcutaneously every 12 hour ferrous sulfate 325 mg (65 mg iron) tablet Take 1 tablet by mouth daily with breakfast. buPROPion SR (WELLBUTRIN SR) 150 mg 12 hr tablet Take 1 tablet by mouth twice daily. sertraline (ZOLOFT) 100 mg tablet Take 1.5 tablets by mouth once daily. CPAP Continue Auto PAP @ 5-20 cm of water with humidification. Mask (per patient preference) optional chin strap (if indicated) , filters, tubing, humidifier and lifetime supplies. AMBROSE G47.33 (Patient not taking: Reported on 07/09/2022) multivitamin tablet Take 1 tablet by mouth once daily. No current facility-administered medications for this visit. REVIEW OF SYSTEMS: GENERAL: Denies fever, chills HEENT: Denies sore throat RESPIRATORY: Denies any cough, sputum, dyspnea CARDIOVASCULAR: Denies any chest pain GASTROINTESTINAL: see HPI GENITOURINARY: Denies dysuria MUSCULOSKELETAL: Denies new joint pain NEURO: Denies MOREJON, blurry vision HEMATOLOGY/LYMPHATIC/IMMUNOLOGIC: Denies bleeding ENDOCRINE: No abnormal sweats All other systems reviewed and negative unless otherwise stated in the HPI PHYSICAL EXAM: GENERAL APPEARANCE: awake in no acute distress SKIN: negative rash HEAD/SINUSES: No significant findings. EYES: conjunctiva clear OROPHARYNX: negative thrush LUNGS: Clear to auscultation bilaterally HEART: Regular rate and rhythm ABDOMEN: Soft, Nontender, nondistended; midline incision intact; stoma with liquid stool; B drains with scant output EXTREMITIES: No edema NEURO: Alert, following commands PICC line L UE LABS: Component Latest Ref Rng & Units 07/02/2022 WBC 3.70 - 11.00 k/uL 6.66 RBC 4.20 - 6.00 m/uL 3.03 (L) Hemoglobin 13.0 - 17.0 g/dL 8.2 (L) Hematocrit 39.0 - 51.0 % 28.2 (L) MCV 80.0 - 100.0 fL 93.1 MCH 26.0 - 34.0 pg 27.1 MCHC 30.5 - 36.0 g/dL 29.1 (L) RDW-CV 11.5 - 15.0 % 17.6 (H) Platelet Count 150 - 400 k/uL 1,020 (H) MPV 9.0 - 12.7 fL 8.7 (L) Neut% % 57.9 Abs Neut (ANC) 1.45 - 7.50 k/uL 3.86 Lymph% % 18.2 Abs Lymph 1.00 - 4.00 k/uL 1.21 Clinch% % 22.2 Abs Clinch <0.87 k/uL 1.48 (H) Eosin% % 1.1 Abs Eosin <0.46 k/uL 0.07 Baso% % 0.3 Abs Baso <0.11 k/uL <0.03 Immature Gran % % 0.3 IMMATURE GRANS (ABS) <0.10 k/uL <0.03 NRBC /100 WBC 0.0 Absolute nRBC <0.01 k/uL <0.01 DTYPE Auto Creatinine 0.73 - 1.22 mg/dL 0.58 (L) eGFR >=60 mL/min/1.73m 119 CK 51 - 298 U/L 24 (L) Immunization History Administered Date(s) Administered COVID-19 original vaccine, full dose, monovalent (MODERNA) 12/22/2020 01/19/2021 HIB PRP-T Conjugated -4 Dose Series 06/19/2022 Meningococcal Group B Vaccine 2 Dose 06/19/2022 Tdap (Age 7+) 03/25/2018 meningococcal (MenACWY-TT) vaccine, quadrivalent (MENQUADFI) 06/18/2022 pneumococcal (PCV20) vaccine, 20 valent (PREVNAR 20) 06/18/2022 IMPRESSION/PLAN: (K65.1) Intra-abdominal abscess (HCC) (primary encounter diagnosis) Comment: Summary of case copied from my inpatient note on 06/27/2022, current status updated below. 52 year old male AMBROSE, HLD, appendiceal tumor associated with pseudomyxoma peritoneum diagnosed in 03/2022 s/p multiple surgeries: 05/29/20- exploratory laparotomy, debulking, total colectomy, LAR, EI, omentectomy splenectomy. During debulking of the tumor he was slow but steadily de-escalating pressor requirements starting with phenylephrine and ultimately ending up on phenylephrine nor epi and vasopressin to support his pressors with presumptive diagnosis of basal aplasia in OR estimated blood loss of 1 L. 06/01/2022- most recent stage II resection of butch's capsule, medically hilum resection further debulking, plan for somatic in [facility] which was complicated by bile leak from gallbladder and portal vein thrombus 06/06/2022 ERCP with pancreatic duct and CBD stent placement CT on 06/19 with stable volume of loculated abdominal pelvic ascites, now with findings suspicious for superimposed infection including increased peritoneal enhancement and increased locules of gas within the left upper quadrant loculation, s/p drain placement on 06/20 Cultures from 06/20 w/enteric isa including Enterobacter, C glabrata and E faecium (S to daptomycin) Discharged on IV dapto/micafungin/ertapenem Currently doing well PLAN: He will take doses of IV abx today He has drain study tomorrow- if okay will plan for PICC removal on Saturday ADDENDUM: Drain study reviewed. Abx resumed 07/12 until 07/26. Follow up scheduled. Communicated with patient and w/Dr. Denise. He will get flu shot and COVID booster locally Silvana Herrera MD documented in this encounterUniversity Hospitals Geauga Medical Center10-10-2022 History of Present illness Narrative* Gail Kauffman RN - 07/09/2022 10:06 AM EDT ET/WOCN Nursing Consult Topic: ET/WOCN Consultation Note ET Outcome: The patient is here to see Dr. Denise and [facility] nursing. The pouching system is working well for him. Provided information on supportive bands or wraps from [employer] and [employer]. ET's Next Scheduled Visit: as needed Stoma Type: End ileostomy Diameter:1 10/07 Location: RUQ Protrusion: Budded Mucosal condition and color: Red and moist Mucocutaneous junction Intact Peristomal Skin: Clear and intact Location of Skin Impairment: n/a Peristomal contour: Flat Supportive Tissue: Semisoft Character of output: thick output Emptying frequency per day: 3 times Current pouching system: 1 12/01 Surfit Natura solid flat Durahesive flange with Coloplast 4.2mm Brava ring and High volume output pouch Current wearing time: 5 days Recommendations: Skin Care: proper shaving technique demonstrated and dust with stomahesive powder as needed for skin irritation Pouching System: same as above except switch to the drainable pouch Wear Time: 3-4 days Midline Abdominal Incision: Healed scar with scabbed tissue at 12 o'clock Comment: n/a Time Increment: 45 minutes Gail Kauffman RN, BSN, CWOCN [employer] Plater Pager [phone] (M-F 7-4 and 7-3 on weekends) documented in this encounterUniversity Hospitals Geaug[facility]10-10-2022 History of Present illness Narrative* Nicolasa Denise, - 07/09/2022 8:40 AM EDT COLORECTAL SURGERY Follow-up July 06, 2022 Chief complaint: postop cytoreduction and HIPEC. HPI: Dov Burrows is a 52 year old male here today to be evaluated for carcinomatosis. He admitsto some recent unintentional weight loss, and abdominal distention. CT scan showed omental caking, and pelvic masses. Biopsy of peritoneum showed mucin. He was taken into the OR on 05/29/22 for CRS/HIPEC. 05/29:1. Exploratory laparotomy. 2. Lysis of adhesions lasting greater than 2 hours. 3. Total proctocolectomy with end ileostomy, entire peritoneal debulking of all peritoneal surfaces, splenectomy, debulking of mucin from multiple small bowel loops. Frozen section confirmed low-grade mucinous neoplasm. Total omentectomy, abdominal wall diaphragms full mucin. 4. Mobilization of splenic flexure. This procedure consisted of total proctocolectomy and we did omentectomy, splenectomy, and we did the midgut and hindgut portions of the operation and extracted multiple L of mucinous ascites for low-grade mucinous neoplasm of the appendix. 9/2: 1. Re-opening of recent laparotomy. 2. Resection and removal of Butch's capsule of the liver. 3. Resection of the splenic hilum, greater curve of the stomach, short gastrics, left diaphragm, right diaphragm, complete mobilization of the liver, retrohepatic mucinous implantation removal and then we did intraoperative hyperthermic intraperitoneal mitomycin-C 40 mg over 90 minutes. He had two drains placed into postoperative collections. His postop course was complicated by a bile leak from the gallbladder, as well as portomesenteric vein thrombosis. He is doing well at home. The drainage has been overall output from each drain (<30ml combined between both drains). The output continues to appear milky. He denies fevers/chills. He is eating well. His ostomy empties about about 1-1.5L daily. Today is his last day of antibiotics but he has follow up with ID today. Physical Exam: Ht 185.4 cm (6' 1) Wt 78.7 kg (173 lb 9.6 oz) BMI 22.90 kg/m General - awake, alert, no acute distress Abdominal - soft, nontender, nondistended; ostomy in RLQ healthy appearing and productive. Both drains with scant chylous output. Assessment Medical Decision Making: Assessment & Diagnosis: Dov Burrows is a 52 year old male with LAMN s/p cytoreduction and HIPEC (including glissons capsule resection, partial gastrectomy, peritoneal stripping from diaphrragm,Total proctocolectomy withend ileostomy, entire peritoneal debulking of all peritoneal surfaces, splenectomy, debulking of mucin from multiple small bowel loops.). He had two drains placed postoperatively for collections, including from a leak from his gallbladder. He is doing well at home and has minimal chylous output from his drains. Data Reviewed: Tests & Documents Reviewed/ordered: Review of prior notes from inpatient stay Review of prior operative reports Review of Pathology Review of Imaging: CT Abdomen, CT Pelvis Review of Labs: CBC, BMP I have independently interpreted: CT Abdomen, CT Pelvis I have discussed Dov Burrows's treatment plan and/or results with him and his . Treatment plan: - Follow up with ID regarding antibiotic duration - drain study at earliest convenience before deciding on drain removal - Continue with increasing oral intake/nutrition I have confirmed and edited as necessary, the PFSH and ROS obtained by others. Attending Note I evaluated the patient and personally participated in the gallagher components. I agree with the resident's findings and plan as documented and have discussed the case and management of the patient's carewith the resident. Signature: Nicolasa Denise DO Date: 07/17/2022 Time: 2:35 PM Risk of morbidity, mortality and/or complications of treatment plan: high documented in this encounterUniversity Hospitals Geauga [facility] Center10-08-2022 History of Present illness Narrative* Graciela Weeks RN - 07/07/2022 2:12 PM EDT TRANSITION CARE MANAGEMENT (TCM) FOLLOW-UP NOTE Provider Action/FYI: Spoke to patient. Pt states he is progressing. Been walking outside. Pt has f/u on Saturday with Surgery. Denies fever, chills, or s/s of infection. Denies needs or concerns. Appointments for Next 60 Days Date Time Provider Location Dept Phone 07/09/2022 8:40 AM NICOLASA DENISE A Bldg [phone] 07/09/2022 10:15 AM [facility] A Bl [phone] 07/09/2022 11:00 AM SILVANA HERRERA G Bldg [phone] 07/19/2022 1:00 PM HANNAH MCNAIR Q Bldg [phone] 07/19/2022 1:00 PM [facility] Q3R3 Mn Q Bldg [phone] 08/01/2022 12:15 PM BECKIE EATON J Bldg [phone] Patient identified by name and date of : YES Spoke to patient Summary: Pt discharged from [facility] on 06/28/22. Admitted for: Mass of appendix Operations During Hospitalization: 05/29/22: Exploratory laparotomy Debulking Omentectomy Total colectomy with LAR End ileostomy Splenectomy Ureteral stent placement Debulking of mucin from small bowel Frozen from omentum - LGMN 06/01/22: Reopening of recent laparotomy Resection of Luther's capsule of liver Resection of multiple mucinous nodules through out - resection of splenic hilum Debulking Intraoperative hyperthermic chemo administration over 90 mins Mitomycin C Concerns: Denies needs or concerns Corporate Secretary plan for next outreach: No further follow up needed at this time Signature Graciela Weeks RN July 07, 2022 documented in this encounterUniversity Hospitals Geauga Medical Center10-04-2022 Nurse Note* Dmitriy Starks RN - 07/03/2022 11:18 AM EDT Orders received from Dr Herrera to extend COPAT to July 09, 2022 . Dmitriy Starks RN documented in this encounterUniversity Hospitals Geauga [facility] Center09-30-2022 History of Present illness Narrative* Graciela Weeks RN - 06/29/2022 1:06 PM EDT TCM Home Visit Referral Source of Stratification: [facility] Hospital Admission Status: Discharged Readmission Risk Score: 33 ISAIAS Score: 12 Patient meets program referral criteria: No Patient does not qualify for High Risk TCM Home Visit program due to: Discharged home, does not meet program criteria Graciela Weeks RN June 29, 2022 1:06 PM TRANSITIONAL CARE MANAGEMENT (TCM) COMMUNITY MONITORING PROGRAM Provider Action/FYI: Spoke to patient. Pt is doing well. Denies fever or chills. Pt states home health nurse just left. Has successfully administered Lovenox without issues. Denies additional needs or concerns. Agreeable to additional outreaches as needed. Appointments for Next 60 Days Date Time Provider Location Dept Phone 07/09/2022 8:40 AM NICOLASA DENISE Mn A Bldg [phone] 07/09/2022 10:15 AM [facility] A Bldg [phone] 07/09/2022 11:00 AM SILVANA HERRERA G Bldg [phone] 07/19/2022 1:00 PM HANNAH MCNAIR Mn Q Bldg [phone] 07/19/2022 1:00 PM [facility] Q3R3 Mn Q Bldg [phone] 08/01/2022 12:15 PM BECKIE EATON J [facility] [phone] Home Health Care Agency [facility] Start of Care 06/29/22 [facility] Phone/Fax P: [phone] Start of Care 06/28/22 SUMMARY: Pt discharged from [facility] on 06/28/22. Admitted for: Mass of appendix Operations During Hospitalization: 05/29/22: Exploratory laparotomy Debulking Omentectomy Total colectomy with LAR End ileostomy Splenectomy Ureteral stent placement Debulking of mucin from small bowel Frozen from omentum - LGMN 06/01/22: Reopening of recent laparotomy Resection of Luther's capsule of liver Resection of multiple mucinous nodules through out - resection of splenic hilum Debulking Intraoperative hyperthermic chemo administration over 90 mins Mitomycin C Procedures During Hospitalization: Blood transfusion Abdominal x-ray MRCP ERCP PICC line placement Chest x-ray Abdomen/pelvis CT scan Liver US CT-guided drain placement to abdominopelvic fluid collections x2 Contact made with patient: Yes Hi my name is Graciela Weeks RN and I am calling from the [facility] on behalf of your PCP, Harjeet Bernard MD I understand you were recently in the hospital so I am calling to check in with you to ensure you are feeling well now that you're home. May I ask you a few questions related toyour hospital stay and well-being? Yes Contact with patient post discharge, spoke to patient. Patient identified by name and . Do you feel your health is BETTER, WORSE, or the SAME since leaving the hospital? Better ACTION TAKEN: Patient indicated symptoms are better or same, no action required. Continue outreach. MEDICATIONS: Many patients have questions or concerns about their medications once they are home. Do you have any questions about taking your medications or which medication you should be on? No Do you need any medication refills at this time, including any of the medications you might take only when needed? No ACTION TAKEN: No action required For RNs or Pharmacy completing outreach ONLY, was a medication review completed? Yes SOCIAL: We would like to make sure you have what you need so that your basics needs are met - including your personal safety, food, housing and medications. Would you like to speak with a social work business team leader to help give you support for any of these needs? No It can be normal to feel anxious or down during a time like this. Would you like to talk to a mental health professional about how you have been feeling? No ACTION TAKEN: No action taken DISCHARGE INTRUCTIONS: Your discharge instructions / After Visit Summary (AVS) are important in guiding you through the recovery process. Do you have any questions related to your discharge instructions? No Do you have all the necessary equipment and supplies at home? Yes ACTION TAKEN: No action required I would like to help you schedule a hospital follow-up virtual or telephone visit with your PCP. This is a great way for you to connect with your provider to ensure you have safely transitioned home.If you are agreeable, I will send your request to a museum service scheduler who will contact and assist you with that appointment. This will give you an opportunity to ask any questions or address any concerns youmay have with your PCP. Inform the patient that if they have any questions or concerns prior to that appointment, to call their PCP's office right away. ACTION TAKEN: No action required, patient declines appointment. Your doctor would like us to remind you of the recommendations regarding the coronavirus (Covid19) outbreak: Avoid public places as much as possible. Avoid close contact (within 6 feet) with others you don t live with, especially if they are sick. Stay home if you are sick. Wash your hands regularly for at least 20 seconds with soap and water. Wear a cloth mask in public places to help reduce community spread. Do not go to your Doctor s office unless instructed to do so. For any non- emergency symptoms, call your Doctor s office to get instructions on how to manage (we might recommend a telephone or virtualvisit). For emergency symptoms, proceed to Emergency Department as usual but inform them of cough and fever symptoms DELFINA if present (or call on the way if possible). Graciela Weeks RN documented in this encounterUniversity Hospitals Geauga [facility] Center09-15-2022 Miscellaneous Notes* Telephone Encounter - Rowena Angel RN - 06/14/2022 11:30 AM EDT Nora from [facility] calls and notified that provider will follow home health orders. Rowena Angel RN * Telephone Encounter - Harjeet Bernard MD - 06/13/2022 7:28 PM EDT Will follow for HH orders * Telephone Encounter - Kiya Bland RN - 06/13/2022 2:13 PM EDT Nora @ [facility] calling to let PCP know patient is being discharged from [facility] on 06/15 with home health orders for nursing and PT. Patient has been hospitalized for surgery for exploratory laparotomy and tumor debulking. She is asking if agree to follow home health orders? Kiya Bland RN documented in this encounterUniversity Hospitals Geauga [facility] Center09-09-2022 History of Past illness Narrative* Problem Noted Date Resolved Date Hypokalemia 06/08/2022 06/27/2022 Pancreatic duct leak 06/06/2022 06/27/2022 Last Assessment & Plan: Continue drain ERCP tomorrow Broad spectrum Abx Mass of appendix 05/29/2022 06/27/2022 Last Assessment & Plan: Assessment: s/p ex lap with debulking 05/29. Plan for HIPEC, but this was aborted due to instability. 06/04: bilious SEN drain output, off pressors Plan: -- S/p HIPEC 06/01 -- continue transfusion as necessary, pain control and zosyn/vanc/fuconazole. - fluid resuscitate -CT abd/pel w/ oral and IV contrast with portal vein thrombosis, on heparin drip. Plan for MRCP today Hypovolemia 05/29/2022 06/27/2022 Last Assessment & Plan: Assessment: S/p ex lap 05/29 with intraoperative hypotension. 1L EBL Bedside TTE is hyperdynamic, collapsed IVC. [place] with SVRI of 3600 Repeat bedside echo showed better fluid status OOB in chair today Plan - Volume resuscitation, transfuse as needed - montior IOs Acute post-hemorrhagic anemia 05/29/2022 Last Assessment & Plan: Transfuse as indicated Acute postoperative respiratory insufficiency 06/27/2022 Last Assessment & Plan: Assessment: extubated 05/30 Maintaining adequate saturations ORA PLAN: - IS/BPH - OOB Postoperative shock 05/29/2022 06/27/2022 Last Assessment & Plan: Assessment: Post-operative shock due to hypovolemia/blood loss Was admitted to SICU on multiple pressors Currently off pressors. Plan: - continue Zosyn IV - continue SDS Metabolic acidosis 05/29/2022 05/31/2022 Last Assessment & Plan: Assessment: Metabolic/lactic acidosis PLAN: Volume resuscitation, wean pressors. Other adjustment reaction wi th predominant disturbance of other emotions 01/17/2011 01/25/2015 Non-healing surgical wound 07/06/200901/25 Cellulitis and abscess of unspecified site 07/0401/25/2015 Abnormal weight gain 02/18/2006 01/25/2015 OVERWEIGHT 02/18/2006 01/25/2015 documented as of this encounter (statuses as of 06/29/2022) [facility]09-09-2022 History of Past illness Narrative* Problem Noted Date Resolved Date Hypokalemia 06/08/2022 06/27/2022 Pancreatic duct leak 06/06/2022 06/27/2022 Last Assessment & Plan: Continue drain ERCP tomorrow Broad spectrum Abx Mass of appendix 05/29/2022 06/27/2022 Last Assessment & Plan: Assessment: s/p ex lap with debulking 05/29. Plan for HIPEC, but this was aborted due to instability. 06/04: bilious SEN drain output, off pressors Plan: -- S/p HIPEC 06/01 -- continue transfusion as necessary, pain control and zosyn/vanc/fuconazole. - fluid resuscitate -CT abd/pel w/ oral and IV contrast with portal vein thrombosis, on heparin drip. Plan for MRCP today Hypovolemia 05/29/2022 06/27/2022 Last Assessment & Plan: Assessment: S/p ex lap 05/29 with intraoperative hypotension. 1L EBL Bedside TTE is hyperdynamic, collapsed IVC. [place] with SVRI of 3600 Repeat bedside echo showed better fluid status OOB in chair today Plan - Volume resuscitation, transfuse as needed - montior IOs Acute post-hemorrhagic anemia 05/29/2022 Last Assessment & Plan: Transfuse as indicated Acute postoperative respiratory insufficiency 06/27/2022 Last Assessment & Plan: Assessment: extubated 05/30 Maintaining adequate saturations ORA PLAN: - IS/BPH - OOB Postoperative shock 05/29/2022 06/27/2022 Last Assessment & Plan: Assessment: Post-operative shock due to hypovolemia/blood loss Was admitted to SICU on multiple pressors Currently off pressors. Plan: - continue Zosyn IV - continue SDS Metabolic acidosis 05/29/2022 05/31/2022 Last Assessment & Plan: Assessment: Metabolic/lactic acidosis PLAN: Volume resuscitation, wean pressors. Other adjustment reaction wi th predominant disturbance of other emotions 01/17/2011 01/25/2015 Non-healing surgical wound 07/06/200901/25 Cellulitis and abscess of unspecified site 07/0401/25/2015 Abnormal weight gain 02/18/2006 01/25/2015 OVERWEIGHT 02/18/2006 01/25/2015 documented as of this encounter (statuses as of 07/03/2022) [facility]09-09-20[facility] History of Past illness Narrative* Problem Noted Date Resolved Date Hypokalemia 06/08/2022 06/27/2022 Pancreatic duct leak 06/06/2022 06/27/2022 Last Assessment & Plan: Continue drain ERCP tomorrow Broad spectrum Abx Mass of appendix 05/29/2022 06/27/2022 Last Assessment & Plan: Assessment: s/p ex lap with debulking 05/29. Plan for HIPEC, but this was aborted due to instability. 06/04: bilious SEN drain output, off pressors Plan: -- S/p HIPEC 06/01 -- continue transfusion as necessary, pain control and zosyn/vanc/fuconazole. - fluid resuscitate -CT abd/pel w/ oral and IV contrast with portal vein thrombosis, on heparin drip. Plan for MRCP today Hypovolemia 05/29/2022 06/27/2022 Last Assessment & Plan: Assessment: S/p ex lap 05/29 with intraoperative hypotension. 1L EBL Bedside TTE is hyperdynamic, collapsed IVC. [place] with SVRI of 3600 Repeat bedside echo showed better fluid status OOB in chair today Plan - Volume resuscitation, transfuse as needed - montior IOs Acute post-hemorrhagic anemia 05/29/2022 Last Assessment & Plan: Transfuse as indicated Acute postoperative respiratory insufficiency 06/27/2022 Last Assessment & Plan: Assessment: extubated 05/30 Maintaining adequate saturations ORA PLAN: - IS/BPH - OOB Postoperative shock 05/29/2022 06/27/2022 Last Assessment & Plan: Assessment: Post-operative shock due to hypovolemia/blood loss Was admitted to SICU on multiple pressors Currently off pressors. Plan: - continue Zosyn IV - continue SDS Metabolic acidosis 05/29/2022 05/31/2022 Last Assessment & Plan: Assessment: Metabolic/lactic acidosis PLAN: Volume resuscitation, wean pressors. Other adjustment reaction wi th predominant disturbance of other emotions 01/17/2011 01/25/2015 Non-healing surgical wound 07/06/200901/25 Cellulitis and abscess of unspecified site 07/0401/25/2015 Abnormal weight gain 02/18/2006 01/25/2015 OVERWEIGHT 02/18/2006 01/25/2015 documented as of this encounter (statuses as of 07/07/2022) [facility]09[facility] History of Past illness Narrative* Problem Noted Date Resolved Date Hypokalemia 06/08/2022 06/27/2022 Pancreatic duct leak 06/06/2022 06/27/2022 Last Assessment & Plan: Continue drain ERCP tomorrow Broad spectrum Abx Mass of appendix 05/29/2022 06/27/2022 Last Assessment & Plan: Assessment: s/p ex lap with debulking 05/29. Plan for HIPEC, but this was aborted due to instability. 06/04: bilious SEN drain output, off pressors Plan: -- S/p HIPEC 06/01 -- continue transfusion as necessary, pain control and zosyn/vanc/fuconazole. - fluid resuscitate -CT abd/pel w/ oral and IV contrast with portal vein thrombosis, on heparin drip. Plan for MRCP today Hypovolemia 05/29/2022 06/27/2022 Last Assessment & Plan: Assessment: S/p ex lap 05/29 with intraoperative hypotension. 1L EBL Bedside TTE is hyperdynamic, collapsed IVC. [place] with SVRI of 3600 Repeat bedside echo showed better fluid status OOB in chair today Plan - Volume resuscitation, transfuse as needed - montior IOs Acute post-hemorrhagic anemia 05/29/2022 Last Assessment & Plan: Transfuse as indicated Acute postoperative respiratory insufficiency 06/27/2022 Last Assessment & Plan: Assessment: extubated 05/30 Maintaining adequate saturations ORA PLAN: - IS/BPH - OOB Postoperative shock 05/29/2022 06/27/2022 Last Assessment & Plan: Assessment: Post-operative shock due to hypovolemia/blood loss Was admitted to SICU on multiple pressors Currently off pressors. Plan: - continue Zosyn IV - continue SDS Metabolic acidosis 05/29/2022 05/31/2022 Last Assessment & Plan: Assessment: Metabolic/lactic acidosis PLAN: Volume resuscitation, wean pressors. Other adjustment reaction wi th predominant disturbance of other emotions 01/17/2011 01/25/2015 Non-healing surgical wound 07/06/200901/25 Cellulitis and abscess of unspecified site 07/0401/25/2015 Abnormal weight gain 02/18/2006 01/25/2015 OVERWEIGHT 02/18/2006 01/25/2015 documented as of this encounter (statuses as of 07/09/2022) [facility]09[facility] History of Past illness Narrative* Problem Noted Date Resolved Date Hypokalemia 06/08/2022 06/27/2022 Pancreatic duct leak 06/06/2022 06/27/2022 Last Assessment & Plan: Continue drain ERCP tomorrow Broad spectrum Abx Mass of appendix 05/29/2022 06/27/2022 Last Assessment & Plan: Assessment: s/p ex lap with debulking 05/29. Plan for HIPEC, but this was aborted due to instability. 06/04: bilious SEN drain output, off pressors Plan: -- S/p HIPEC 06/01 -- continue transfusion as necessary, pain control and zosyn/vanc/fuconazole. - fluid resuscitate -CT abd/pel w/ oral and IV contrast with portal vein thrombosis, on heparin drip. Plan for MRCP today Hypovolemia 05/29/2022 06/27/2022 Last Assessment & Plan: Assessment: S/p ex lap 05/29 with intraoperative hypotension. 1L EBL Bedside TTE is hyperdynamic, collapsed IVC. [place] with SVRI of 3600 Repeat bedside echo showed better fluid status OOB in chair today Plan - Volume resuscitation, transfuse as needed - montior IOs Acute post-hemorrhagic anemia 05/29/2022 Last Assessment & Plan: Transfuse as indicated Acute postoperative respiratory insufficiency 06/27/2022 Last Assessment & Plan: Assessment: extubated 05/30 Maintaining adequate saturations ORA PLAN: - IS/BPH - OOB Postoperative shock 05/29/2022 06/27/2022 Last Assessment & Plan: Assessment: Post-operative shock due to hypovolemia/blood loss Was admitted to SICU on multiple pressors Currently off pressors. Plan: - continue Zosyn IV - continue SDS Metabolic acidosis 05/29/2022 05/31/2022 Last Assessment & Plan: Assessment: Metabolic/lactic acidosis PLAN: Volume resuscitation, wean pressors. Other adjustment reaction wi th predominant disturbance of other emotions 01/17/2011 01/25/2015 Non-healing surgical wound 07/06/200901/25 Cellulitis and abscess of unspecified site 07/0401/25/2015 Abnormal weight gain 02/18/2006 01/25/2015 OVERWEIGHT 02/18/2006 01/25/2015 documented as of this encounter (statuses as of 07/09/2022) [facility] History of Past illness Narrative* Problem Noted Date Resolved Date Hypokalemia 06/08/2022 06/27/2022 Pancreatic duct leak 06/06/2022 06/27/2022 Last Assessment & Plan: Continue drain ERCP tomorrow Broad spectrum Abx Mass of appendix 05/29/2022 06/27/2022 Last Assessment & Plan: Assessment: s/p ex lap with debulking 05/29. Plan for HIPEC, but this was aborted due to instability. 06/04: bilious SEN drain output, off pressors Plan: -- S/p HIPEC 06/01 -- continue transfusion as necessary, pain control and zosyn/vanc/fuconazole. - fluid resuscitate -CT abd/pel w/ oral and IV contrast with portal vein thrombosis, on heparin drip. Plan for MRCP today Hypovolemia 05/29/2022 06/27/2022 Last Assessment & Plan: Assessment: S/p ex lap 05/29 with intraoperative hypotension. 1L EBL Bedside TTE is hyperdynamic, collapsed IVC. [place] with SVRI of 3600 Repeat bedside echo showed better fluid status OOB in chair today Plan - Volume resuscitation, transfuse as needed - montior IOs Acute post-hemorrhagic anemia 05/29/2022 Last Assessment & Plan: Transfuse as indicated Acute postoperative respiratory insufficiency 06/27/2022 Last Assessment & Plan: Assessment: extubated 05/30 Maintaining adequate saturations ORA PLAN: - IS/BPH - OOB Postoperative shock 05/29/2022 06/27/2022 Last Assessment & Plan: Assessment: Post-operative shock due to hypovolemia/blood loss Was admitted to SICU on multiple pressors Currently off pressors. Plan: - continue Zosyn IV - continue SDS Metabolic acidosis 05/29/2022 05/31/2022 Last Assessment & Plan: Assessment: Metabolic/lactic acidosis PLAN: Volume resuscitation, wean pressors. Other adjustment reaction wi th predominant disturbance of other emotions 01/17/2011 01/25/2015 Non-healing surgical wound 07/06/200901/25 Cellulitis and abscess of unspecified site 07/0401/25/2015 Abnormal weight gain 02/18/2006 01/25/2015 OVERWEIGHT 02/18/2006 01/25/2015 documented as of this encounter (statuses as of 07/11/2022) [facility]09-09-2022 History of Past illness Narrative* Problem Noted Date Resolved Date Hypokalemia 06/08/2022 06/27/2022 Pancreatic duct leak 06/06/2022 06/27/2022 Last Assessment & Plan: Continue drain ERCP tomorrow Broad spectrum Abx Mass of appendix 05/29/2022 06/27/2022 Last Assessment & Plan: Assessment: s/p ex lap with debulking 05/29. Plan for HIPEC, but this was aborted due to instability. 06/04: bilious SEN drain output, off pressors Plan: -- S/p HIPEC 06/01 -- continue transfusion as necessary, pain control and zosyn/vanc/fuconazole. - fluid resuscitate -CT abd/pel w/ oral and IV contrast with portal vein thrombosis, on heparin drip. Plan for MRCP today Hypovolemia 05/29/2022 06/27/2022 Last Assessment & Plan: Assessment: S/p ex lap 05/29 with intraoperative hypotension. 1L EBL Bedside TTE is hyperdynamic, collapsed IVC. [place] with SVRI of 3600 Repeat bedside echo showed better fluid status OOB in chair today Plan - Volume resuscitation, transfuse as needed - montior IOs Acute post-hemorrhagic anemia 05/29/2022 Last Assessment & Plan: Transfuse as indicated Acute postoperative respiratory insufficiency 06/27/2022 Last Assessment & Plan: Assessment: extubated 05/30 Maintaining adequate saturations ORA PLAN: - IS/BPH - OOB Postoperative shock 05/29/2022 06/27/2022 Last Assessment & Plan: Assessment: Post-operative shock due to hypovolemia/blood loss Was admitted to SICU on multiple pressors Currently off pressors. Plan: - continue Zosyn IV - continue SDS Metabolic acidosis 05/29/2022 05/31/2022 Last Assessment & Plan: Assessment: Metabolic/lactic acidosis PLAN: Volume resuscitation, wean pressors. Other adjustment reaction wi th predominant disturbance of other emotions 01/17/2011 01/25/2015 Non-healing surgical wound 07/06/200901/25 Cellulitis and abscess of unspecified site 07/0401/25/2015 Abnormal weight gain 02/18/2006 01/25/2015 OVERWEIGHT 02/18/2006 01/25/2015 documented as of this encounter (statuses as of 07/11/2022) [facility]09-09-2022 History of Past illness Narrative* Problem Noted Date Resolved Date Hypokalemia 06/08/2022 06/27/2022 Pancreatic duct leak 06/06/2022 06/27/2022 Last Assessment & Plan: Continue drain ERCP tomorrow Broad spectrum Abx Mass of appendix 05/29/2022 06/27/2022 Last Assessment & Plan: Assessment: s/p ex lap with debulking 05/29. Plan for HIPEC, but this was aborted due to instability. 06/04: bilious SEN drain output, off pressors Plan: -- S/p HIPEC 06/01 -- continue transfusion as necessary, pain control and zosyn/vanc/fuconazole. - fluid resuscitate -CT abd/pel w/ oral and IV contrast with portal vein thrombosis, on heparin drip. Plan for MRCP today Hypovolemia 05/29/2022 06/27/2022 Last Assessment & Plan: Assessment: S/p ex lap 05/29 with intraoperative hypotension. 1L EBL Bedside TTE is hyperdynamic, collapsed IVC. [place] with SVRI of 3600 Repeat bedside echo showed better fluid status OOB in chair today Plan - Volume resuscitation, transfuse as needed - montior IOs Acute post-hemorrhagic anemia 05/29/2022 Last Assessment & Plan: Transfuse as indicated Acute postoperative respiratory insufficiency 06/27/2022 Last Assessment & Plan: Assessment: extubated 05/30 Maintaining adequate saturations ORA PLAN: - IS/BPH - OOB Postoperative shock 05/29/2022 06/27/2022 Last Assessment & Plan: Assessment: Post-operative shock due to hypovolemia/blood loss Was admitted to SICU on multiple pressors Currently off pressors. Plan: - continue Zosyn IV - continue SDS Metabolic acidosis 05/29/2022 05/31/2022 Last Assessment & Plan: Assessment: Metabolic/lactic acidosis PLAN: Volume resuscitation, wean pressors. Other adjustment reaction wi th predominant disturbance of other emotions 01/17/2011 01/25/2015 Non-healing surgical wound 07/06/200901/25 Cellulitis and abscess of unspecified site 07/0401/25/2015 Abnormal weight gain 02/18/2006 01/25/2015 OVERWEIGHT 02/18/2006 01/25/2015 documented as of this encounter (statuses as of 07/12/2022) [facility]09-09-2022 History of Past illness Narrative* Problem Noted Date Resolved Date Hypokalemia 06/08/2022 06/27/2022 Pancreatic duct leak 06/06/2022 06/27/2022 Last Assessment & Plan: Continue drain ERCP tomorrow Broad spectrum Abx Mass of appendix 05/29/2022 06/27/2022 Last Assessment & Plan: Assessment: s/p ex lap with debulking 05/29. Plan for HIPEC, but this was aborted due to instability. 06/04: bilious SEN drain output, off pressors Plan: -- S/p HIPEC 06/01 -- continue transfusion as necessary, pain control and zosyn/vanc/fuconazole. - fluid resuscitate -CT abd/pel w/ oral and IV contrast with portal vein thrombosis, on heparin drip. Plan for MRCP today Hypovolemia 05/29/2022 06/27/2022 Last Assessment & Plan: Assessment: S/p ex lap 05/29 with intraoperative hypotension. 1L EBL Bedside TTE is hyperdynamic, collapsed IVC. [place] with SVRI of 3600 Repeat bedside echo showed better fluid status OOB in chair today Plan - Volume resuscitation, transfuse as needed - montior IOs Acute post-hemorrhagic anemia 05/29/2022 Last Assessment & Plan: Transfuse as indicated Acute postoperative respiratory insufficiency 06/27/2022 Last Assessment & Plan: Assessment: extubated 05/30 Maintaining adequate saturations ORA PLAN: - IS/BPH - OOB Postoperative shock 05/29/2022 06/27/2022 Last Assessment & Plan: Assessment: Post-operative shock due to hypovolemia/blood loss Was admitted to SICU on multiple pressors Currently off pressors. Plan: - continue Zosyn IV - continue SDS Metabolic acidosis 05/29/2022 05/31/2022 Last Assessment & Plan: Assessment: Metabolic/lactic acidosis PLAN: Volume resuscitation, wean pressors. Other adjustment reaction wi th predominant disturbance of other emotions 01/17/2011 01/25/2015 Non-healing surgical wound 07/06/200901/25 Cellulitis and abscess of unspecified site 07/0401/25/2015 Abnormal weight gain 02/18/2006 01/25/2015 OVERWEIGHT 02/18/2006 01/25/2015 documented as of this encounter (statuses as of 07/13/2022) [facility]09-09-2022 History of Past illness Narrative* Problem Noted Date Resolved Date Hypokalemia 06/08/2022 06/27/2022 Pancreatic duct leak 06/06/2022 06/27/2022 Last Assessment & Plan: Continue drain ERCP tomorrow Broad spectrum Abx Mass of appendix 05/29/2022 06/27/2022 Last Assessment & Plan: Assessment: s/p ex lap with debulking 05/29. Plan for HIPEC, but this was aborted due to instability. 06/04: bilious SEN drain output, off pressors Plan: -- S/p HIPEC 06/01 -- continue transfusion as necessary, pain control and zosyn/vanc/fuconazole. - fluid resuscitate -CT abd/pel w/ oral and IV contrast with portal vein thrombosis, on heparin drip. Plan for MRCP today Hypovolemia 05/29/2022 06/27/2022 Last Assessment & Plan: Assessment: S/p ex lap 05/29 with intraoperative hypotension. 1L EBL Bedside TTE is hyperdynamic, collapsed IVC. [place] with SVRI of 3600 Repeat bedside echo showed better fluid status OOB in chair today Plan - Volume resuscitation, transfuse as needed - montior IOs Acute post-hemorrhagic anemia 05/29/2022 Last Assessment & Plan: Transfuse as indicated Acute postoperative respiratory insufficiency 06/27/2022 Last Assessment & Plan: Assessment: extubated 05/30 Maintaining adequate saturations ORA PLAN: - IS/BPH - OOB Postoperative shock 05/29/2022 06/27/2022 Last Assessment & Plan: Assessment: Post-operative shock due to hypovolemia/blood loss Was admitted to SICU on multiple pressors Currently off pressors. Plan: - continue Zosyn IV - continue SDS Metabolic acidosis 05/29/2022 05/31/2022 Last Assessment & Plan: Assessment: Metabolic/lactic acidosis PLAN: Volume resuscitation, wean pressors. Other adjustment reaction wi th predominant disturbance of other emotions 01/17/2011 01/25/2015 Non-healing surgical wound 07/06/200901/25 Cellulitis and abscess of unspecified site 07/0401/25/2015 Abnormal weight gain 02/18/2006 01/25/2015 OVERWEIGHT 02/18/2006 01/25/2015 documented as of this encounter (statuses as of 07/16/2022) [facility]09[facility]09-20[facility] History of Past illness Narrative* Problem Noted Date Resolved Date Hypokalemia 06/08/2022 06/27/2022 Pancreatic duct leak 06/06/2022 06/27/2022 Last Assessment & Plan: Continue drain ERCP tomorrow Broad spectrum Abx Mass of appendix 05/29/2022 06/27/2022 Last Assessment & Plan: Assessment: s/p ex lap with debulking 05/29. Plan for HIPEC, but this was aborted due to instability. 06/04: bilious SEN drain output, off pressors Plan: -- S/p HIPEC 06/01 -- continue transfusion as necessary, pain control and zosyn/vanc/fuconazole. - fluid resuscitate -CT abd/pel w/ oral and IV contrast with portal vein thrombosis, on heparin drip. Plan for MRCP today Hypovolemia 05/29/2022 06/27/2022 Last Assessment & Plan: Assessment: S/p ex lap 05/29 with intraoperative hypotension. 1L EBL Bedside TTE is hyperdynamic, collapsed IVC. [place] with SVRI of 3600 Repeat bedside echo showed better fluid status OOB in chair today Plan - Volume resuscitation, transfuse as needed - montior IOs Acute post-hemorrhagic anemia 05/29/2022 Last Assessment & Plan: Transfuse as indicated Acute postoperative respiratory insufficiency 06/27/2022 Last Assessment & Plan: Assessment: extubated 05/30 Maintaining adequate saturations ORA PLAN: - IS/BPH - OOB Postoperative shock 05/29/2022 06/27/2022 Last Assessment & Plan: Assessment: Post-operative shock due to hypovolemia/blood loss Was admitted to SICU on multiple pressors Currently off pressors. Plan: - continue Zosyn IV - continue SDS Metabolic acidosis 05/29/2022 05/31/2022 Last Assessment & Plan: Assessment: Metabolic/lactic acidosis PLAN: Volume resuscitation, wean pressors. Other adjustment reaction wi th predominant disturbance of other emotions 01/17/2011 01/25/2015 Non-healing surgical wound 07/06/200901/25 Cellulitis and abscess of unspecified site 07/0401/25/2015 Abnormal weight gain 02/18/2006 01/25/2015 OVERWEIGHT 02/18/2006 01/25/2015 documented as of this encounter (statuses as of 07/17/2022) [facility]09-09-2022 History of Past illness Narrative* Problem Noted Date Resolved Date Hypokalemia 06/08/2022 06/27/2022 Pancreatic duct leak 06/06/2022 06/27/2022 Last Assessment & Plan: Continue drain ERCP tomorrow Broad spectrum Abx Mass of appendix 05/29/2022 06/27/2022 Last Assessment & Plan: Assessment: s/p ex lap with debulking 05/29. Plan for HIPEC, but this was aborted due to instability. 06/04: bilious SEN drain output, off pressors Plan: -- S/p HIPEC 06/01 -- continue transfusion as necessary, pain control and zosyn/vanc/fuconazole. - fluid resuscitate -CT abd/pel w/ oral and IV contrast with portal vein thrombosis, on heparin drip. Plan for MRCP today Hypovolemia 05/29/2022 06/27/2022 Last Assessment & Plan: Assessment: S/p ex lap 05/29 with intraoperative hypotension. 1L EBL Bedside TTE is hyperdynamic, collapsed IVC. [place] with SVRI of 3600 Repeat bedside echo showed better fluid status OOB in chair today Plan - Volume resuscitation, transfuse as needed - montior IOs Acute post-hemorrhagic anemia 05/29/2022 Last Assessment & Plan: Transfuse as indicated Acute postoperative respiratory insufficiency 06/27/2022 Last Assessment & Plan: Assessment: extubated 05/30 Maintaining adequate saturations ORA PLAN: - IS/BPH - OOB Postoperative shock 05/29/2022 06/27/2022 Last Assessment & Plan: Assessment: Post-operative shock due to hypovolemia/blood loss Was admitted to SICU on multiple pressors Currently off pressors. Plan: - continue Zosyn IV - continue SDS Metabolic acidosis 05/29/2022 05/31/2022 Last Assessment & Plan: Assessment: Metabolic/lactic acidosis PLAN: Volume resuscitation, wean pressors. Other adjustment reaction wi th predominant disturbance of other emotions 01/17/2011 01/25/2015 Non-healing surgical wound 07/06/200901/25 Cellulitis and abscess of unspecified site 07/0401/25/2015 Abnormal weight gain 02/18/2006 01/25/2015 OVERWEIGHT 02/18/2006 01/25/2015 documented as of this encounter (statuses as of 07/17/2022) [facility]09[facility] History of Past illness Narrative* Problem Noted Date Resolved Date Hypokalemia 06/08/2022 06/27/2022 Pancreatic duct leak 06/06/2022 06/27/2022 Last Assessment & Plan: Continue drain ERCP tomorrow Broad spectrum Abx Mass of appendix 05/29/2022 06/27/2022 Last Assessment & Plan: Assessment: s/p ex lap with debulking 05/29. Plan for HIPEC, but this was aborted due to instability. 06/04: bilious SEN drain output, off pressors Plan: -- S/p HIPEC 06/01 -- continue transfusion as necessary, pain control and zosyn/vanc/fuconazole. - fluid resuscitate -CT abd/pel w/ oral and IV contrast with portal vein thrombosis, on heparin drip. Plan for MRCP today Hypovolemia 05/29/2022 06/27/2022 Last Assessment & Plan: Assessment: S/p ex lap 05/29 with intraoperative hypotension. 1L EBL Bedside TTE is hyperdynamic, collapsed IVC. [place] with SVRI of 3600 Repeat bedside echo showed better fluid status OOB in chair today Plan - Volume resuscitation, transfuse as needed - montior IOs Acute post-hemorrhagic anemia 05/29/2022 Last Assessment & Plan: Transfuse as indicated Acute postoperative respiratory insufficiency 06/27/2022 Last Assessment & Plan: Assessment: extubated 05/30 Maintaining adequate saturations ORA PLAN: - IS/BPH - OOB Postoperative shock 05/29/2022 06/27/2022 Last Assessment & Plan: Assessment: Post-operative shock due to hypovolemia/blood loss Was admitted to SICU on multiple pressors Currently off pressors. Plan: - continue Zosyn IV - continue SDS Metabolic acidosis 05/29/2022 05/31/2022 Last Assessment & Plan: Assessment: Metabolic/lactic acidosis PLAN: Volume resuscitation, wean pressors. Other adjustment reaction wi th predominant disturbance of other emotions 01/17/2011 01/25/2015 Non-healing surgical wound 07/06/200901/25 Cellulitis and abscess of unspecified site 07/0401/25/2015 Abnormal weight gain 02/18/2006 01/25/2015 OVERWEIGHT 02/18/2006 01/25/2015 documented as of this encounter (statuses as of 07/20/2022) [facility]09[facility]-20[facility] History of Past illness Narrative* Problem Noted Date Resolved Date Hypokalemia 06/08/2022 06/27/2022 Pancreatic duct leak 06/06/2022 06/27/2022 Last Assessment & Plan: Continue drain ERCP tomorrow Broad spectrum Abx Mass of appendix 05/29/2022 06/27/2022 Last Assessment & Plan: Assessment: s/p ex lap with debulking 05/29. Plan for HIPEC, but this was aborted due to instability. 06/04: bilious SEN drain output, off pressors Plan: -- S/p HIPEC 06/01 -- continue transfusion as necessary, pain control and zosyn/vanc/fuconazole. - fluid resuscitate -CT abd/pel w/ oral and IV contrast with portal vein thrombosis, on heparin drip. Plan for MRCP today Hypovolemia 05/29/2022 06/27/2022 Last Assessment & Plan: Assessment: S/p ex lap 05/29 with intraoperative hypotension. 1L EBL Bedside TTE is hyperdynamic, collapsed IVC. [place] with SVRI of 3600 Repeat bedside echo showed better fluid status OOB in chair today Plan - Volume resuscitation, transfuse as needed - montior IOs Acute post-hemorrhagic anemia 05/29/2022 Last Assessment & Plan: Transfuse as indicated Acute postoperative respiratory insufficiency 06/27/2022 Last Assessment & Plan: Assessment: extubated 05/30 Maintaining adequate saturations ORA PLAN: - IS/BPH - OOB Postoperative shock 05/29/2022 06/27/2022 Last Assessment & Plan: Assessment: Post-operative shock due to hypovolemia/blood loss Was admitted to SICU on multiple pressors Currently off pressors. Plan: - continue Zosyn IV - continue SDS Metabolic acidosis 05/29/2022 05/31/2022 Last Assessment & Plan: Assessment: Metabolic/lactic acidosis PLAN: Volume resuscitation, wean pressors. Other adjustment reaction wi th predominant disturbance of other emotions 01/17/2011 01/25/2015 Non-healing surgical wound 07/06/200901/25 Cellulitis and abscess of unspecified site 07/0401/25/2015 Abnormal weight gain 02/18/2006 01/25/2015 OVERWEIGHT 02/18/2006 01/25/2015 documented as of this encounter (statuses as of 07/20/2022) [facility] History of Past illness Narrative* Problem Noted Date Resolved Date Hypokalemia 06/08/2022 06/27/2022 Pancreatic duct leak 06/06/2022 06/27/2022 Last Assessment & Plan: Continue drain ERCP tomorrow Broad spectrum Abx Mass of appendix 05/29/2022 06/27/2022 Last Assessment & Plan: Assessment: s/p ex lap with debulking 05/29. Plan for HIPEC, but this was aborted due to instability. 06/04: bilious SEN drain output, off pressors Plan: -- S/p HIPEC 06/01 -- continue transfusion as necessary, pain control and zosyn/vanc/fuconazole. - fluid resuscitate -CT abd/pel w/ oral and IV contrast with portal vein thrombosis, on heparin drip. Plan for MRCP today Hypovolemia 05/29/2022 06/27/2022 Last Assessment & Plan: Assessment: S/p ex lap 05/29 with intraoperative hypotension. 1L EBL Bedside TTE is hyperdynamic, collapsed IVC. [place] with SVRI of 3600 Repeat bedside echo showed better fluid status OOB in chair today Plan - Volume resuscitation, transfuse as needed - montior IOs Acute post-hemorrhagic anemia 05/29/2022 Last Assessment & Plan: Transfuse as indicated Acute postoperative respiratory insufficiency 06/27/2022 Last Assessment & Plan: Assessment: extubated 05/30 Maintaining adequate saturations ORA PLAN: - IS/BPH - OOB Postoperative shock 05/29/2022 06/27/2022 Last Assessment & Plan: Assessment: Post-operative shock due to hypovolemia/blood loss Was admitted to SICU on multiple pressors Currently off pressors. Plan: - continue Zosyn IV - continue SDS Metabolic acidosis 05/29/2022 05/31/2022 Last Assessment & Plan: Assessment: Metabolic/lactic acidosis PLAN: Volume resuscitation, wean pressors. Other adjustment reaction wi th predominant disturbance of other emotions 01/17/2011 01/25/2015 Non-healing surgical wound 07/06/200901/25 Cellulitis and abscess of unspecified site 07/0401/25/2015 Abnormal weight gain 02/18/2006 01/25/2015 OVERWEIGHT 02/18/2006 01/25/2015 documented as of this encounter (statuses as of 07/25/2022) [facility] History of Past illness Narrative* Problem Noted Date Resolved Date Hypokalemia 06/08/2022 06/27/2022 Pancreatic duct leak 06/06/2022 06/27/2022 Last Assessment & Plan: Continue drain ERCP tomorrow Broad spectrum Abx Mass of appendix 05/29/2022 06/27/2022 Last Assessment & Plan: Assessment: s/p ex lap with debulking 05/29. Plan for HIPEC, but this was aborted due to instability. 06/04: bilious SEN drain output, off pressors Plan: -- S/p HIPEC 06/01 -- continue transfusion as necessary, pain control and zosyn/vanc/fuconazole. - fluid resuscitate -CT abd/pel w/ oral and IV contrast with portal vein thrombosis, on heparin drip. Plan for MRCP today Hypovolemia 05/29/2022 06/27/2022 Last Assessment & Plan: Assessment: S/p ex lap 05/29 with intraoperative hypotension. 1L EBL Bedside TTE is hyperdynamic, collapsed IVC. [place] with SVRI of 3600 Repeat bedside echo showed better fluid status OOB in chair today Plan - Volume resuscitation, transfuse as needed - montior IOs Acute post-hemorrhagic anemia 05/29/2022 Last Assessment & Plan: Transfuse as indicated Acute postoperative respiratory insufficiency 06/27/2022 Last Assessment & Plan: Assessment: extubated 05/30 Maintaining adequate saturations ORA PLAN: - IS/BPH - OOB Postoperative shock 05/29/2022 06/27/2022 Last Assessment & Plan: Assessment: Post-operative shock due to hypovolemia/blood loss Was admitted to SICU on multiple pressors Currently off pressors. Plan: - continue Zosyn IV - continue SDS Metabolic acidosis 05/29/2022 05/31/2022 Last Assessment & Plan: Assessment: Metabolic/lactic acidosis PLAN: Volume resuscitation, wean pressors. Other adjustment reaction wi th predominant disturbance of other emotions 01/17/2011 01/25/2015 Non-healing surgical wound 07/06/200901/25 Cellulitis and abscess of unspecified site 07/0401/25/2015 Abnormal weight gain 02/18/2006 01/25/2015 OVERWEIGHT 02/18/2006 01/25/2015 documented as of this encounter (statuses as of 07/26/2022) [facility] History of Past illness Narrative* Problem Noted Date Resolved Date Hypokalemia 06/08/2022 06/27/2022 Pancreatic duct leak 06/06/2022 06/27/2022 Last Assessment & Plan: Continue drain ERCP tomorrow Broad spectrum Abx Mass of appendix 05/29/2022 06/27/2022 Last Assessment & Plan: Assessment: s/p ex lap with debulking 05/29. Plan for HIPEC, but this was aborted due to instability. 06/04: bilious SEN drain output, off pressors Plan: -- S/p HIPEC 06/01 -- continue transfusion as necessary, pain control and zosyn/vanc/fuconazole. - fluid resuscitate -CT abd/pel w/ oral and IV contrast with portal vein thrombosis, on heparin drip. Plan for MRCP today Hypovolemia 05/29/2022 06/27/2022 Last Assessment & Plan: Assessment: S/p ex lap 05/29 with intraoperative hypotension. 1L EBL Bedside TTE is hyperdynamic, collapsed IVC. [place] with SVRI of 3600 Repeat bedside echo showed better fluid status OOB in chair today Plan - Volume resuscitation, transfuse as needed - montior IOs Acute post-hemorrhagic anemia 05/29/2022 Last Assessment & Plan: Transfuse as indicated Acute postoperative respiratory insufficiency 06/27/2022 Last Assessment & Plan: Assessment: extubated 05/30 Maintaining adequate saturations ORA PLAN: - IS/BPH - OOB Postoperative shock 05/29/2022 06/27/2022 Last Assessment & Plan: Assessment: Post-operative shock due to hypovolemia/blood loss Was admitted to SICU on multiple pressors Currently off pressors. Plan: - continue Zosyn IV - continue SDS Metabolic acidosis 05/29/2022 05/31/2022 Last Assessment & Plan: Assessment: Metabolic/lactic acidosis PLAN: Volume resuscitation, wean pressors. Other adjustment reaction wi th predominant disturbance of other emotions 01/17/2011 01/25/2015 Non-healing surgical wound 07/06/200901/25 Cellulitis and abscess of unspecified site 07/0401/25/2015 Abnormal weight gain 02/18/2006 01/25/2015 OVERWEIGHT 02/18/2006 01/25/2015 documented as of this encounter (statuses as of 07/30/2022) [facility] History of Past illness Narrative* Problem Noted Date Resolved Date Hypokalemia 06/08/2022 06/27/2022 Pancreatic duct leak 06/06/2022 06/27/2022 Last Assessment & Plan: Continue drain ERCP tomorrow Broad spectrum Abx Mass of appendix 05/29/2022 06/27/2022 Last Assessment & Plan: Assessment: s/p ex lap with debulking 05/29. Plan for HIPEC, but this was aborted due to instability. 06/04: bilious SEN drain output, off pressors Plan: -- S/p HIPEC 06/01 -- continue transfusion as necessary, pain control and zosyn/vanc/fuconazole. - fluid resuscitate -CT abd/pel w/ oral and IV contrast with portal vein thrombosis, on heparin drip. Plan for MRCP today Hypovolemia 05/29/2022 06/27/2022 Last Assessment & Plan: Assessment: S/p ex lap 05/29 with intraoperative hypotension. 1L EBL Bedside TTE is hyperdynamic, collapsed IVC. [place] with SVRI of 3600 Repeat bedside echo showed better fluid status OOB in chair today Plan - Volume resuscitation, transfuse as needed - montior IOs Acute post-hemorrhagic anemia 05/29/2022 Last Assessment & Plan: Transfuse as indicated Acute postoperative respiratory insufficiency 06/27/2022 Last Assessment & Plan: Assessment: extubated 05/30 Maintaining adequate saturations ORA PLAN: - IS/BPH - OOB Postoperative shock 05/29/2022 06/27/2022 Last Assessment & Plan: Assessment: Post-operative shock due to hypovolemia/blood loss Was admitted to SICU on multiple pressors Currently off pressors. Plan: - continue Zosyn IV - continue SDS Metabolic acidosis 05/29/2022 05/31/2022 Last Assessment & Plan: Assessment: Metabolic/lactic acidosis PLAN: Volume resuscitation, wean pressors. Other adjustment reaction wi th predominant disturbance of other emotions 01/17/2011 01/25/2015 Non-healing surgical wound 07/06/200901/25 Cellulitis and abscess of unspecified site 07/0401/25/2015 Abnormal weight gain 02/18/2006 01/25/2015 OVERWEIGHT 02/18/2006 01/25/2015 documented as of this encounter (statuses as of 07/30/2022) [facility]09-09-2022 History of Past illness Narrative* Problem Noted Date Resolved Date Hypokalemia 06/08/2022 06/27/2022 Pancreatic duct leak 06/06/2022 06/27/2022 Last Assessment & Plan: Continue drain ERCP tomorrow Broad spectrum Abx Mass of appendix 05/29/2022 06/27/2022 Last Assessment & Plan: Assessment: s/p ex lap with debulking 05/29. Plan for HIPEC, but this was aborted due to instability. 06/04: bilious SEN drain output, off pressors Plan: -- S/p HIPEC 06/01 -- continue transfusion as necessary, pain control and zosyn/vanc/fuconazole. - fluid resuscitate -CT abd/pel w/ oral and IV contrast with portal vein thrombosis, on heparin drip. Plan for MRCP today Hypovolemia 05/29/2022 06/27/2022 Last Assessment & Plan: Assessment: S/p ex lap 05/29 with intraoperative hypotension. 1L EBL Bedside TTE is hyperdynamic, collapsed IVC. [place] with SVRI of 3600 Repeat bedside echo showed better fluid status OOB in chair today Plan - Volume resuscitation, transfuse as needed - montior IOs Acute post-hemorrhagic anemia 05/29/2022 Last Assessment & Plan: Transfuse as indicated Acute postoperative respiratory insufficiency 06/27/2022 Last Assessment & Plan: Assessment: extubated 05/30 Maintaining adequate saturations ORA PLAN: - IS/BPH - OOB Postoperative shock 05/29/2022 06/27/2022 Last Assessment & Plan: Assessment: Post-operative shock due to hypovolemia/blood loss Was admitted to SICU on multiple pressors Currently off pressors. Plan: - continue Zosyn IV - continue SDS Metabolic acidosis 05/29/2022 05/31/2022 Last Assessment & Plan: Assessment: Metabolic/lactic acidosis PLAN: Volume resuscitation, wean pressors. Other adjustment reaction wi th predominant disturbance of other emotions 01/17/2011 01/25/2015 Non-healing surgical wound 07/06/200901/25 Cellulitis and abscess of unspecified site 07/0401/25/2015 Abnormal weight gain 02/18/2006 01/25/2015 OVERWEIGHT 02/18/2006 01/25/2015 documented as of this encounter (statuses as of 07/31/2022) [facility]09[facility]09[facility]20[facility] History of Past illness Narrative* Problem Noted Date Resolved Date Hypokalemia 06/08/2022 06/27/2022 Pancreatic duct leak 06/06/2022 06/27/2022 Last Assessment & Plan: Continue drain ERCP tomorrow Broad spectrum Abx Mass of appendix 05/29/2022 06/27/2022 Last Assessment & Plan: Assessment: s/p ex lap with debulking 05/29. Plan for HIPEC, but this was aborted due to instability. 06/04: bilious SEN drain output, off pressors Plan: -- S/p HIPEC 06/01 -- continue transfusion as necessary, pain control and zosyn/vanc/fuconazole. - fluid resuscitate -CT abd/pel w/ oral and IV contrast with portal vein thrombosis, on heparin drip. Plan for MRCP today Hypovolemia 05/29/2022 06/27/2022 Last Assessment & Plan: Assessment: S/p ex lap 05/29 with intraoperative hypotension. 1L EBL Bedside TTE is hyperdynamic, collapsed IVC. [place] with SVRI of 3600 Repeat bedside echo showed better fluid status OOB in chair today Plan - Volume resuscitation, transfuse as needed - montior IOs Acute post-hemorrhagic anemia 05/29/2022 Last Assessment & Plan: Transfuse as indicated Acute postoperative respiratory insufficiency 06/27/2022 Last Assessment & Plan: Assessment: extubated 05/30 Maintaining adequate saturations ORA PLAN: - IS/BPH - OOB Postoperative shock 05/29/2022 06/27/2022 Last Assessment & Plan: Assessment: Post-operative shock due to hypovolemia/blood loss Was admitted to SICU on multiple pressors Currently off pressors. Plan: - continue Zosyn IV - continue SDS Metabolic acidosis 05/29/2022 05/31/2022 Last Assessment & Plan: Assessment: Metabolic/lactic acidosis PLAN: Volume resuscitation, wean pressors. Other adjustment reaction wi th predominant disturbance of other emotions 01/17/2011 01/25/2015 Non-healing surgical wound 07/06/200901/25 Cellulitis and abscess of unspecified site 07/0401/25/2015 Abnormal weight gain 02/18/2006 01/25/2015 OVERWEIGHT 02/18/2006 01/25/2015 documented as of this encounter (statuses as of 08/02/2022) [facility]09[facility]09-2022 History of Past illness Narrative* Problem Noted Date Resolved Date Hypokalemia 06/08/2022 06/27/2022 Pancreatic duct leak 06/06/2022 06/27/2022 Last Assessment & Plan: Continue drain ERCP tomorrow Broad spectrum Abx Mass of appendix 05/29/2022 06/27/2022 Last Assessment & Plan: Assessment: s/p ex lap with debulking 05/29. Plan for HIPEC, but this was aborted due to instability. 06/04: bilious SEN drain output, off pressors Plan: -- S/p HIPEC 06/01 -- continue transfusion as necessary, pain control and zosyn/vanc/fuconazole. - fluid resuscitate -CT abd/pel w/ oral and IV contrast with portal vein thrombosis, on heparin drip. Plan for MRCP today Hypovolemia 05/29/2022 06/27/2022 Last Assessment & Plan: Assessment: S/p ex lap 05/29 with intraoperative hypotension. 1L EBL Bedside TTE is hyperdynamic, collapsed IVC. [place] with SVRI of 3600 Repeat bedside echo showed better fluid status OOB in chair today Plan - Volume resuscitation, transfuse as needed - montior IOs Acute post-hemorrhagic anemia 05/29/2022 Last Assessment & Plan: Transfuse as indicated Acute postoperative respiratory insufficiency 06/27/2022 Last Assessment & Plan: Assessment: extubated 05/30 Maintaining adequate saturations ORA PLAN: - IS/BPH - OOB Postoperative shock 05/29/2022 06/27/2022 Last Assessment & Plan: Assessment: Post-operative shock due to hypovolemia/blood loss Was admitted to SICU on multiple pressors Currently off pressors. Plan: - continue Zosyn IV - continue SDS Metabolic acidosis 05/29/2022 05/31/2022 Last Assessment & Plan: Assessment: Metabolic/lactic acidosis PLAN: Volume resuscitation, wean pressors. Other adjustment reaction wi th predominant disturbance of other emotions 01/17/2011 01/25/2015 Non-healing surgical wound 07/06/200901/25 Cellulitis and abscess of unspecified site 07/0401/25/2015 Abnormal weight gain 02/18/2006 01/25/2015 OVERWEIGHT 02/18/2006 01/25/2015 documented as of this encounter (statuses as of 08/10/2022) [facility]09[facility]09-2022 History of Past illness Narrative* Problem Noted Date Resolved Date Hypokalemia 06/08/2022 06/27/2022 Pancreatic duct leak 06/06/2022 06/27/2022 Last Assessment & Plan: Continue drain ERCP tomorrow Broad spectrum Abx Mass of appendix 05/29/2022 06/27/2022 Last Assessment & Plan: Assessment: s/p ex lap with debulking 05/29. Plan for HIPEC, but this was aborted due to instability. 06/04: bilious SEN drain output, off pressors Plan: -- S/p HIPEC 06/01 -- continue transfusion as necessary, pain control and zosyn/vanc/fuconazole. - fluid resuscitate -CT abd/pel w/ oral and IV contrast with portal vein thrombosis, on heparin drip. Plan for MRCP today Hypovolemia 05/29/2022 06/27/2022 Last Assessment & Plan: Assessment: S/p ex lap 05/29 with intraoperative hypotension. 1L EBL Bedside TTE is hyperdynamic, collapsed IVC. [place] with SVRI of 3600 Repeat bedside echo showed better fluid status OOB in chair today Plan - Volume resuscitation, transfuse as needed - montior IOs Acute post-hemorrhagic anemia 05/29/2022 Last Assessment & Plan: Transfuse as indicated Acute postoperative respiratory insufficiency 06/27/2022 Last Assessment & Plan: Assessment: extubated 05/30 Maintaining adequate saturations ORA PLAN: - IS/BPH - OOB Postoperative shock 05/29/2022 06/27/2022 Last Assessment & Plan: Assessment: Post-operative shock due to hypovolemia/blood loss Was admitted to SICU on multiple pressors Currently off pressors. Plan: - continue Zosyn IV - continue SDS Metabolic acidosis 05/29/2022 05/31/2022 Last Assessment & Plan: Assessment: Metabolic/lactic acidosis PLAN: Volume resuscitation, wean pressors. Other adjustment reaction wi th predominant disturbance of other emotions 01/17/2011 01/25/2015 Non-healing surgical wound 07/06/200901/25 Cellulitis and abscess of unspecified site 07/0401/25/2015 Abnormal weight gain 02/18/2006 01/25/2015 OVERWEIGHT 02/18/2006 01/25/2015 documented as of this encounter (statuses as of 08/14/2022) [facility]09[facility] History of Past illness Narrative* Problem Noted Date Resolved Date Hypokalemia 06/08/2022 06/27/2022 Pancreatic duct leak 06/06/2022 06/27/2022 Last Assessment & Plan: Continue drain ERCP tomorrow Broad spectrum Abx Mass of appendix 05/29/2022 06/27/2022 Last Assessment & Plan: Assessment: s/p ex lap with debulking 05/29. Plan for HIPEC, but this was aborted due to instability. 06/04: bilious SEN drain output, off pressors Plan: -- S/p HIPEC 06/01 -- continue transfusion as necessary, pain control and zosyn/vanc/fuconazole. - fluid resuscitate -CT abd/pel w/ oral and IV contrast with portal vein thrombosis, on heparin drip. Plan for MRCP today Hypovolemia 05/29/2022 06/27/2022 Last Assessment & Plan: Assessment: S/p ex lap 05/29 with intraoperative hypotension. 1L EBL Bedside TTE is hyperdynamic, collapsed IVC. [place] with SVRI of 3600 Repeat bedside echo showed better fluid status OOB in chair today Plan - Volume resuscitation, transfuse as needed - veraior IOs Acute post-hemorrhagic anemia 05/29/2022 Last Assessment & Plan: Transfuse as indicated Acute postoperative respiratory insufficiency 06/27/2022 Last Assessment & Plan: Assessment: extubated 05/30 Maintaining adequate saturations ORA PLAN: - IS/BPH - OOB Postoperative shock 05/29/2022 06/27/2022 Last Assessment & Plan: Assessment: Post-operative shock due to hypovolemia/blood loss Was admitted to SICU on multiple pressors Currently off pressors. Plan: - continue Zosyn IV - continue SDS Metabolic acidosis 05/29/2022 05/31/2022 Last Assessment & Plan: Assessment: Metabolic/lactic acidosis PLAN: Volume resuscitation, wean pressors. Other adjustment reaction wi th predominant disturbance of other emotions 01/17/2011 01/25/2015 Non-healing surgical wound 07/06/200901/25 Cellulitis and abscess of unspecified site 07/0401/25/2015 Abnormal weight gain 02/18/2006 01/25/2015 OVERWEIGHT 02/18/2006 01/25/2015 documented as of this encounter (statuses as of 08/21/2022) [facility]09-09-2022 History of Past illness Narrative* Problem Noted Date Resolved Date Hypokalemia 06/08/2022 06/27/2022 Pancreatic duct leak 06/06/2022 06/27/2022 Last Assessment & Plan: Continue drain ERCP tomorrow Broad spectrum Abx Mass of appendix 05/29/2022 06/27/2022 Last Assessment & Plan: Assessment: s/p ex lap with debulking 05/29. Plan for HIPEC, but this was aborted due to instability. 06/04: bilious SEN drain output, off pressors Plan: -- S/p HIPEC 06/01 -- continue transfusion as necessary, pain control and zosyn/vanc/fuconazole. - fluid resuscitate -CT abd/pel w/ oral and IV contrast with portal vein thrombosis, on heparin drip. Plan for MRCP today Hypovolemia 05/29/2022 06/27/2022 Last Assessment & Plan: Assessment: S/p ex lap 05/29 with intraoperative hypotension. 1L EBL Bedside TTE is hyperdynamic, collapsed IVC. [place] with SVRI of 3600 Repeat bedside echo showed better fluid status OOB in chair today Plan - Volume resuscitation, transfuse as needed - montior IOs Acute post-hemorrhagic anemia 05/29/2022 Last Assessment & Plan: Transfuse as indicated Acute postoperative respiratory insufficiency 06/27/2022 Last Assessment & Plan: Assessment: extubated 05/30 Maintaining adequate saturations ORA PLAN: - IS/BPH - OOB Postoperative shock 05/29/2022 06/27/2022 Last Assessment & Plan: Assessment: Post-operative shock due to hypovolemia/blood loss Was admitted to SICU on multiple pressors Currently off pressors. Plan: - continue Zosyn IV - continue SDS Metabolic acidosis 05/29/2022 05/31/2022 Last Assessment & Plan: Assessment: Metabolic/lactic acidosis PLAN: Volume resuscitation, wean pressors. Other adjustment reaction wi th predominant disturbance of other emotions 01/17/2011 01/25/2015 Non-healing surgical wound 07/06/200901/25 Cellulitis and abscess of unspecified site 07/0401/25/2015 Abnormal weight gain 02/18/2006 01/25/2015 OVERWEIGHT 02/18/2006 01/25/2015 documented as of this encounter (statuses as of 08/30/2022) [facility]09[facility] History of Past illness Narrative* Problem Noted Date Resolved Date Hypokalemia 06/08/2022 06/27/2022 Pancreatic duct leak 06/06/2022 06/27/2022 Last Assessment & Plan: Continue drain ERCP tomorrow Broad spectrum Abx Mass of appendix 05/29/2022 06/27/2022 Last Assessment & Plan: Assessment: s/p ex lap with debulking 05/29. Plan for HIPEC, but this was aborted due to instability. 06/04: bilious SEN drain output, off pressors Plan: -- S/p HIPEC 06/01 -- continue transfusion as necessary, pain control and zosyn/vanc/fuconazole. - fluid resuscitate -CT abd/pel w/ oral and IV contrast with portal vein thrombosis, on heparin drip. Plan for MRCP today Hypovolemia 05/29/2022 06/27/2022 Last Assessment & Plan: Assessment: S/p ex lap 05/29 with intraoperative hypotension. 1L EBL Bedside TTE is hyperdynamic, collapsed IVC. [place] with SVRI of 3600 Repeat bedside echo showed better fluid status OOB in chair today Plan - Volume resuscitation, transfuse as needed - montior IOs Acute post-hemorrhagic anemia 05/29/2022 Last Assessment & Plan: Transfuse as indicated Acute postoperative respiratory insufficiency 06/27/2022 Last Assessment & Plan: Assessment: extubated 05/30 Maintaining adequate saturations ORA PLAN: - IS/BPH - OOB Postoperative shock 05/29/2022 06/27/2022 Last Assessment & Plan: Assessment: Post-operative shock due to hypovolemia/blood loss Was admitted to SICU on multiple pressors Currently off pressors. Plan: - continue Zosyn IV - continue SDS Metabolic acidosis 05/29/2022 05/31/2022 Last Assessment & Plan: Assessment: Metabolic/lactic acidosis PLAN: Volume resuscitation, wean pressors. Other adjustment reaction wi th predominant disturbance of other emotions 01/17/2011 01/25/2015 Non-healing surgical wound 07/06/200901/25 Cellulitis and abscess of unspecified site 07/0401/25/2015 Abnormal weight gain 02/18/2006 01/25/2015 OVERWEIGHT 02/18/2006 01/25/2015 documented as of this encounter (statuses as of 09/15/2022) [facility]09[facility] History of Past illness Narrative* Problem Noted Date Resolved Date Hypokalemia 06/08/2022 06/27/2022 Pancreatic duct leak 06/06/2022 06/27/2022 Last Assessment & Plan: Continue drain ERCP tomorrow Broad spectrum Abx Hypovolemia 05/29/2022 06/27/2022 Last Assessment & Plan: Assessment: S/p ex lap 05/29 with intraoperative hypotension. 1L EBL Bedside TTE is hyperdynamic, collapsed IVC. [place] with SVRI of 3600 Repeat bedside echo showed better fluid status OOB in chair today Plan - Volume resuscitation, transfuse as needed - montior IOs Acute post-hemorrhagic anemia 05/29/2022 Last Assessment & Plan: Transfuse as indicated Acute postoperative respiratory insufficiency 06/27/2022 Last Assessment & Plan: Assessment: extubated 05/30 Maintaining adequate saturations ORA PLAN: - IS/BPH - OOB Postoperative shock 05/29/2022 06/27/2022 Last Assessment & Plan: Assessment: Post-operative shock due to hypovolemia/blood loss Was admitted to SICU on multiple pressors Currently off pressors. Plan: - continue Zosyn IV - continue SDS Metabolic acidosis 05/29/2022 05/31/2022 Last Assessment & Plan: Assessment: Metabolic/lactic acidosis PLAN: Volume resuscitation, wean pressors. Other adjustment reaction wi th predominant disturbance of other emotions 01/17/2011 01/25/2015 Non-healing surgical wound 07/06/200901/25 Cellulitis and abscess of unspecified site 07/0401/25/2015 Abnormal weight gain 02/18/2006 01/25/2015 OVERWEIGHT 02/18/2006 01/25/2015 documented as of this encounter (statuses as of 10/02/2022) [facility] History of Past illness Narrative* Problem Noted Date Resolved Date Hypokalemia 06/08/2022 06/27/2022 Pancreatic duct leak 06/06/2022 06/27/2022 Last Assessment & Plan: Continue drain ERCP tomorrow Broad spectrum Abx Hypovolemia 05/29/2022 06/27/2022 Last Assessment & Plan: Assessment: S/p ex lap 05/29 with intraoperative hypotension. 1L EBL Bedside TTE is hyperdynamic, collapsed IVC. [place] with SVRI of 3600 Repeat bedside echo showed better fluid status OOB in chair today Plan - Volume resuscitation, transfuse as needed - montior IOs Acute post-hemorrhagic anemia 05/29/2022 Last Assessment & Plan: Transfuse as indicated Acute postoperative respiratory insufficiency 06/27/2022 Last Assessment & Plan: Assessment: extubated 05/30 Maintaining adequate saturations ORA PLAN: - IS/BPH - OOB Postoperative shock 05/29/2022 06/27/2022 Last Assessment & Plan: Assessment: Post-operative shock due to hypovolemia/blood loss Was admitted to SICU on multiple pressors Currently off pressors. Plan: - continue Zosyn IV - continue SDS Metabolic acidosis 05/29/2022 05/31/2022 Last Assessment & Plan: Assessment: Metabolic/lactic acidosis PLAN: Volume resuscitation, wean pressors. Other adjustment reaction wi th predominant disturbance of other emotions 01/17/2011 01/25/2015 Non-healing surgical wound 07/06/200901/25 Cellulitis and abscess of unspecified site 07/0401/25/2015 Abnormal weight gain 02/18/2006 01/25/2015 OVERWEIGHT 02/18/2006 01/25/2015 documented as of this encounter (statuses as of 10/03/2022) [facility] History of Past illness Narrative* Problem Noted Date Resolved Date Hypokalemia 06/08/2022 06/27/2022 Pancreatic duct leak 06/06/2022 06/27/2022 Last Assessment & Plan: Continue drain ERCP tomorrow Broad spectrum Abx Hypovolemia 05/29/2022 06/27/2022 Last Assessment & Plan: Assessment: S/p ex lap 05/29 with intraoperative hypotension. 1L EBL Bedside TTE is hyperdynamic, collapsed IVC. [place] with SVRI of 3600 Repeat bedside echo showed better fluid status OOB in chair today Plan - Volume resuscitation, transfuse as needed - montior IOs Acute post-hemorrhagic anemia 05/29/2022 Last Assessment & Plan: Transfuse as indicated Acute postoperative respiratory insufficiency 06/27/2022 Last Assessment & Plan: Assessment: extubated 05/30 Maintaining adequate saturations ORA PLAN: - IS/BPH - OOB Postoperative shock 05/29/2022 06/27/2022 Last Assessment & Plan: Assessment: Post-operative shock due to hypovolemia/blood loss Was admitted to SICU on multiple pressors Currently off pressors. Plan: - continue Zosyn IV - continue SDS Metabolic acidosis 05/29/2022 05/31/2022 Last Assessment & Plan: Assessment: Metabolic/lactic acidosis PLAN: Volume resuscitation, wean pressors. Other adjustment reaction wi th predominant disturbance of other emotions 01/17/2011 01/25/2015 Non-healing surgical wound 07/06/200901/25 Cellulitis and abscess of unspecified site 07/0401/25/2015 Abnormal weight gain 02/18/2006 01/25/2015 OVERWEIGHT 02/18/2006 01/25/2015 documented as of this encounter (statuses as of 10/04/2022) [facility] History of Past illness Narrative* Problem Noted Date Resolved Date Hypokalemia 06/08/2022 06/27/2022 Pancreatic duct leak 06/06/2022 06/27/2022 Last Assessment & Plan: Continue drain ERCP tomorrow Broad spectrum Abx Hypovolemia 05/29/2022 06/27/2022 Last Assessment & Plan: Assessment: S/p ex lap 05/29 with intraoperative hypotension. 1L EBL Bedside TTE is hyperdynamic, collapsed IVC. [place] with SVRI of 3600 Repeat bedside echo showed better fluid status OOB in chair today Plan - Volume resuscitation, transfuse as needed - montior IOs Acute post-hemorrhagic anemia 05/29/2022 Last Assessment & Plan: Transfuse as indicated Acute postoperative respiratory insufficiency 06/27/2022 Last Assessment & Plan: Assessment: extubated 05/30 Maintaining adequate saturations ORA PLAN: - IS/BPH - OOB Postoperative shock 05/29/2022 06/27/2022 Last Assessment & Plan: Assessment: Post-operative shock due to hypovolemia/blood loss Was admitted to SICU on multiple pressors Currently off pressors. Plan: - continue Zosyn IV - continue SDS Metabolic acidosis 05/29/2022 05/31/2022 Last Assessment & Plan: Assessment: Metabolic/lactic acidosis PLAN: Volume resuscitation, wean pressors. Other adjustment reaction wi th predominant disturbance of other emotions 01/17/2011 01/25/2015 Non-healing surgical wound 07/06/200901/25 Cellulitis and abscess of unspecified site 07/0401/25/2015 Abnormal weight gain 02/18/2006 01/25/2015 OVERWEIGHT 02/18/2006 01/25/2015 documented as of this encounter (statuses as of 10/05/2022) [facility] History of Past illness Narrative* Problem Noted Date Resolved Date Hypokalemia 06/08/2022 06/27/2022 Pancreatic duct leak 06/06/2022 06/27/2022 Last Assessment & Plan: Continue drain ERCP tomorrow Broad spectrum Abx Hypovolemia 05/29/2022 06/27/2022 Last Assessment & Plan: Assessment: S/p ex lap 05/29 with intraoperative hypotension. 1L EBL Bedside TTE is hyperdynamic, collapsed IVC. [place] with SVRI of 3600 Repeat bedside echo showed better fluid status OOB in chair today Plan - Volume resuscitation, transfuse as needed - montior IOs Acute post-hemorrhagic anemia 05/29/2022 Last Assessment & Plan: Transfuse as indicated Acute postoperative respiratory insufficiency 06/27/2022 Last Assessment & Plan: Assessment: extubated 05/30 Maintaining adequate saturations ORA PLAN: - IS/BPH - OOB Postoperative shock 05/29/2022 06/27/2022 Last Assessment & Plan: Assessment: Post-operative shock due to hypovolemia/blood loss Was admitted to SICU on multiple pressors Currently off pressors. Plan: - continue Zosyn IV - continue SDS Metabolic acidosis 05/29/2022 05/31/2022 Last Assessment & Plan: Assessment: Metabolic/lactic acidosis PLAN: Volume resuscitation, wean pressors. Other adjustment reaction wi th predominant disturbance of other emotions 01/17/2011 01/25/2015 Non-healing surgical wound 07/06/200901/25 Cellulitis and abscess of unspecified site 07/0401/25/2015 Abnormal weight gain 02/18/2006 01/25/2015 OVERWEIGHT 02/18/2006 01/25/2015 documented as of this encounter (statuses as of 10/19/2022) [facility] History of Past illness Narrative* Problem Noted Date Resolved Date Hypokalemia 06/08/2022 06/27/2022 Pancreatic duct leak 06/06/2022 06/27/2022 Last Assessment & Plan: Continue drain ERCP tomorrow Broad spectrum Abx Hypovolemia 05/29/2022 06/27/2022 Last Assessment & Plan: Assessment: S/p ex lap 05/29 with intraoperative hypotension. 1L EBL Bedside TTE is hyperdynamic, collapsed IVC. [place] with SVRI of 3600 Repeat bedside echo showed better fluid status OOB in chair today Plan - Volume resuscitation, transfuse as needed - montior IOs Acute post-hemorrhagic anemia 05/29/2022 Last Assessment & Plan: Transfuse as indicated Acute postoperative respiratory insufficiency 06/27/2022 Last Assessment & Plan: Assessment: extubated 05/30 Maintaining adequate saturations ORA PLAN: - IS/BPH - OOB Postoperative shock 05/29/2022 06/27/2022 Last Assessment & Plan: Assessment: Post-operative shock due to hypovolemia/blood loss Was admitted to SICU on multiple pressors Currently off pressors. Plan: - continue Zosyn IV - continue SDS Metabolic acidosis 05/29/2022 05/31/2022 Last Assessment & Plan: Assessment: Metabolic/lactic acidosis PLAN: Volume resuscitation, wean pressors. Other adjustment reaction wi th predominant disturbance of other emotions 01/17/2011 01/25/2015 Non-healing surgical wound 07/06/200901/25 Cellulitis and abscess of unspecified site 07/0401/25/2015 Abnormal weight gain 02/18/2006 01/25/2015 OVERWEIGHT 02/18/2006 01/25/2015 documented as of this encounter (statuses as of 11/12/2022) [facility] History of Past illness Narrative* Problem Noted Date Resolved Date Hypokalemia 06/08/2022 06/27/2022 Pancreatic duct leak 06/06/2022 06/27/2022 Last Assessment & Plan: Continue drain ERCP tomorrow Broad spectrum Abx Hypovolemia 05/29/2022 06/27/2022 Last Assessment & Plan: Assessment: S/p ex lap 05/29 with intraoperative hypotension. 1L EBL Bedside TTE is hyperdynamic, collapsed IVC. [place] with SVRI of 3600 Repeat bedside echo showed better fluid status OOB in chair today Plan - Volume resuscitation, transfuse as needed - montior IOs Acute post-hemorrhagic anemia 05/29/2022 Last Assessment & Plan: Transfuse as indicated Acute postoperative respiratory insufficiency 06/27/2022 Last Assessment & Plan: Assessment: extubated 05/30 Maintaining adequate saturations ORA PLAN: - IS/BPH - OOB Postoperative shock 05/29/2022 06/27/2022 Last Assessment & Plan: Assessment: Post-operative shock due to hypovolemia/blood loss Was admitted to SICU on multiple pressors Currently off pressors. Plan: - continue Zosyn IV - continue SDS Metabolic acidosis 05/29/2022 05/31/2022 Last Assessment & Plan: Assessment: Metabolic/lactic acidosis PLAN: Volume resuscitation, wean pressors. Other adjustment reaction wi th predominant disturbance of other emotions 01/17/2011 01/25/2015 Non-healing surgical wound 07/06/200901/25 Cellulitis and abscess of unspecified site 07/0401/25/2015 Abnormal weight gain 02/18/2006 01/25/2015 OVERWEIGHT 02/18/2006 01/25/2015 documented as of this encounter (statuses as of 11/13/2022) [facility]09-09-2022 History of Past illness Narrative* Problem Noted Date Resolved Date Hypokalemia 06/08/2022 06/27/2022 Pancreatic duct leak 06/06/2022 06/27/2022 Last Assessment & Plan: Continue drain ERCP tomorrow Broad spectrum Abx Hypovolemia 05/29/2022 06/27/2022 Last Assessment & Plan: Assessment: S/p ex lap 05/29 with intraoperative hypotension. 1L EBL Bedside TTE is hyperdynamic, collapsed IVC. [place] with SVRI of 3600 Repeat bedside echo showed better fluid status OOB in chair today Plan - Volume resuscitation, transfuse as needed - montior IOs Acute post-hemorrhagic anemia 05/29/2022 Last Assessment & Plan: Transfuse as indicated Acute postoperative respiratory insufficiency 06/27/2022 Last Assessment & Plan: Assessment: extubated 05/30 Maintaining adequate saturations ORA PLAN: - IS/BPH - OOB Postoperative shock 05/29/2022 06/27/2022 Last Assessment & Plan: Assessment: Post-operative shock due to hypovolemia/blood loss Was admitted to SICU on multiple pressors Currently off pressors. Plan: - continue Zosyn IV - continue SDS Metabolic acidosis 05/29/2022 05/31/2022 Last Assessment & Plan: Assessment: Metabolic/lactic acidosis PLAN: Volume resuscitation, wean pressors. Other adjustment reaction wi th predominant disturbance of other emotions 01/17/2011 01/25/2015 Non-healing surgical wound 07/06/200901/25 Cellulitis and abscess of unspecified site 07/0401/25/2015 Abnormal weight gain 02/18/2006 01/25/2015 OVERWEIGHT 02/18/2006 01/25/2015 documented as of this encounter (statuses as of 11/15/2022) [facility]09[facility] History of Past illness Narrative* Problem Noted Date Resolved Date Hypokalemia 06/08/2022 06/27/2022 Pancreatic duct leak 06/06/2022 06/27/2022 Last Assessment & Plan: Continue drain ERCP tomorrow Broad spectrum Abx Hypovolemia 05/29/2022 06/27/2022 Last Assessment & Plan: Assessment: S/p ex lap 05/29 with intraoperative hypotension. 1L EBL Bedside TTE is hyperdynamic, collapsed IVC. [place] with SVRI of 3600 Repeat bedside echo showed better fluid status OOB in chair today Plan - Volume resuscitation, transfuse as needed - montior IOs Acute post-hemorrhagic anemia 05/29/2022 Last Assessment & Plan: Transfuse as indicated Acute postoperative respiratory insufficiency 06/27/2022 Last Assessment & Plan: Assessment: extubated 05/30 Maintaining adequate saturations ORA PLAN: - IS/BPH - OOB Postoperative shock 05/29/2022 06/27/2022 Last Assessment & Plan: Assessment: Post-operative shock due to hypovolemia/blood loss Was admitted to SICU on multiple pressors Currently off pressors. Plan: - continue Zosyn IV - continue SDS Metabolic acidosis 05/29/2022 05/31/2022 Last Assessment & Plan: Assessment: Metabolic/lactic acidosis PLAN: Volume resuscitation, wean pressors. Other adjustment reaction wi th predominant disturbance of other emotions 01/17/2011 01/25/2015 Non-healing surgical wound 07/06/200901/25 Cellulitis and abscess of unspecified site 07/0401/25/2015 Abnormal weight gain 02/18/2006 01/25/2015 OVERWEIGHT 02/18/2006 01/25/2015 documented as of this encounter (statuses as of 11/22/2022) [facility]09[facility] History of Past illness Narrative* Problem Noted Date Resolved Date Hypokalemia 06/08/2022 06/27/2022 Pancreatic duct leak 06/06/2022 06/27/2022 Last Assessment & Plan: Continue drain ERCP tomorrow Broad spectrum Abx Hypovolemia 05/29/2022 06/27/2022 Last Assessment & Plan: Assessment: S/p ex lap 05/29 with intraoperative hypotension. 1L EBL Bedside TTE is hyperdynamic, collapsed IVC. [place] with SVRI of 3600 Repeat bedside echo showed better fluid status OOB in chair today Plan - Volume resuscitation, transfuse as needed - montior IOs Acute post-hemorrhagic anemia 05/29/2022 Last Assessment & Plan: Transfuse as indicated Acute postoperative respiratory insufficiency 06/27/2022 Last Assessment & Plan: Assessment: extubated 05/30 Maintaining adequate saturations ORA PLAN: - IS/BPH - OOB Postoperative shock 05/29/2022 06/27/2022 Last Assessment & Plan: Assessment: Post-operative shock due to hypovolemia/blood loss Was admitted to SICU on multiple pressors Currently off pressors. Plan: - continue Zosyn IV - continue SDS Metabolic acidosis 05/29/2022 05/31/2022 Last Assessment & Plan: Assessment: Metabolic/lactic acidosis PLAN: Volume resuscitation, wean pressors. Other adjustment reaction wi th predominant disturbance of other emotions 01/17/2011 01/25/2015 Non-healing surgical wound 07/06/200901/25 Cellulitis and abscess of unspecified site 07/0401/25/2015 Abnormal weight gain 02/18/2006 01/25/2015 OVERWEIGHT 02/18/2006 01/25/2015 documented as of this encounter (statuses as of 12/06/2022) [facility]09[facility] History of Past illness Narrative* Problem Noted Date Resolved Date Hypokalemia 06/08/2022 06/27/2022 Pancreatic duct leak 06/06/2022 06/27/2022 Last Assessment & Plan: Continue drain ERCP tomorrow Broad spectrum Abx Hypovolemia 05/29/2022 06/27/2022 Last Assessment & Plan: Assessment: S/p ex lap 05/29 with intraoperative hypotension. 1L EBL Bedside TTE is hyperdynamic, collapsed IVC. [place] with SVRI of 3600 Repeat bedside echo showed better fluid status OOB in chair today Plan - Volume resuscitation, transfuse as needed - montior IOs Acute post-hemorrhagic anemia 05/29/2022 Last Assessment & Plan: Transfuse as indicated Acute postoperative respiratory insufficiency 06/27/2022 Last Assessment & Plan: Assessment: extubated 05/30 Maintaining adequate saturations ORA PLAN: - IS/BPH - OOB Postoperative shock 05/29/2022 06/27/2022 Last Assessment & Plan: Assessment: Post-operative shock due to hypovolemia/blood loss Was admitted to SICU on multiple pressors Currently off pressors. Plan: - continue Zosyn IV - continue SDS Metabolic acidosis 05/29/2022 05/31/2022 Last Assessment & Plan: Assessment: Metabolic/lactic acidosis PLAN: Volume resuscitation, wean pressors. Other adjustment reaction wi th predominant disturbance of other emotions 01/17/2011 01/25/2015 Non-healing surgical wound 07/06/200901/25 Cellulitis and abscess of unspecified site 07/0401/25/2015 Abnormal weight gain 02/18/2006 01/25/2015 OVERWEIGHT 02/18/2006 01/25/2015 documented as of this encounter (statuses as of 12/24/2022) [facility]09[facility] History of Past illness Narrative* Problem Noted Date Resolved Date Hypokalemia 06/08/2022 06/27/2022 Pancreatic duct leak 06/06/2022 06/27/2022 Last Assessment & Plan: Continue drain ERCP tomorrow Broad spectrum Abx Hypovolemia 05/29/2022 06/27/2022 Last Assessment & Plan: Assessment: S/p ex lap 05/29 with intraoperative hypotension. 1L EBL Bedside TTE is hyperdynamic, collapsed IVC. [place] with SVRI of 3600 Repeat bedside echo showed better fluid status OOB in chair today Plan - Volume resuscitation, transfuse as needed - montior IOs Acute post-hemorrhagic anemia 05/29/2022 Last Assessment & Plan: Transfuse as indicated Acute postoperative respiratory insufficiency 06/27/2022 Last Assessment & Plan: Assessment: extubated 05/30 Maintaining adequate saturations ORA PLAN: - IS/BPH - OOB Postoperative shock 05/29/2022 06/27/2022 Last Assessment & Plan: Assessment: Post-operative shock due to hypovolemia/blood loss Was admitted to SICU on multiple pressors Currently off pressors. Plan: - continue Zosyn IV - continue SDS Metabolic acidosis 05/29/2022 05/31/2022 Last Assessment & Plan: Assessment: Metabolic/lactic acidosis PLAN: Volume resuscitation, wean pressors. Other adjustment reaction wi th predominant disturbance of other emotions 01/17/2011 01/25/2015 Non-healing surgical wound 07/06/200901/25 Cellulitis and abscess of unspecified site 07/0401/25/2015 Abnormal weight gain 02/18/2006 01/25/2015 OVERWEIGHT 02/18/2006 01/25/2015 documented as of this encounter (statuses as of 12/28/2022) [facility]09[facility] History of Past illness Narrative* Problem Noted Date Resolved Date Hypokalemia 06/08/2022 06/27/2022 Pancreatic duct leak 06/06/2022 06/27/2022 Last Assessment & Plan: Continue drain ERCP tomorrow Broad spectrum Abx Hypovolemia 05/29/2022 06/27/2022 Last Assessment & Plan: Assessment: S/p ex lap 05/29 with intraoperative hypotension. 1L EBL Bedside TTE is hyperdynamic, collapsed IVC. [place] with SVRI of 3600 Repeat bedside echo showed better fluid status OOB in chair today Plan - Volume resuscitation, transfuse as needed - montior IOs Acute post-hemorrhagic anemia 05/29/2022 Last Assessment & Plan: Transfuse as indicated Acute postoperative respiratory insufficiency 06/27/2022 Last Assessment & Plan: Assessment: extubated 05/30 Maintaining adequate saturations ORA PLAN: - IS/BPH - OOB Postoperative shock 05/29/2022 06/27/2022 Last Assessment & Plan: Assessment: Post-operative shock due to hypovolemia/blood loss Was admitted to SICU on multiple pressors Currently off pressors. Plan: - continue Zosyn IV - continue SDS Metabolic acidosis 05/29/2022 05/31/2022 Last Assessment & Plan: Assessment: Metabolic/lactic acidosis PLAN: Volume resuscitation, wean pressors. Other adjustment reaction wi th predominant disturbance of other emotions 01/17/2011 01/25/2015 Non-healing surgical wound 07/06/200901/25 Cellulitis and abscess of unspecified site 07/0401/25/2015 Abnormal weight gain 02/18/2006 01/25/2015 OVERWEIGHT 02/18/2006 01/25/2015 documented as of this encounter (statuses as of 01/11/2023) [facility]09[facility] History of Past illness Narrative* Problem Noted Date Resolved Date Hypokalemia 06/08/2022 06/27/2022 Pancreatic duct leak 06/06/2022 06/27/2022 Last Assessment & Plan: Continue drain ERCP tomorrow Broad spectrum Abx Hypovolemia 05/29/2022 06/27/2022 Last Assessment & Plan: Assessment: S/p ex lap 05/29 with intraoperative hypotension. 1L EBL Bedside TTE is hyperdynamic, collapsed IVC. [place] with SVRI of 3600 Repeat bedside echo showed better fluid status OOB in chair today Plan - Volume resuscitation, transfuse as needed - montior IOs Acute post-hemorrhagic anemia 05/29/2022 Last Assessment & Plan: Transfuse as indicated Acute postoperative respiratory insufficiency 06/27/2022 Last Assessment & Plan: Assessment: extubated 05/30 Maintaining adequate saturations ORA PLAN: - IS/BPH - OOB Postoperative shock 05/29/2022 06/27/2022 Last Assessment & Plan: Assessment: Post-operative shock due to hypovolemia/blood loss Was admitted to SICU on multiple pressors Currently off pressors. Plan: - continue Zosyn IV - continue SDS Metabolic acidosis 05/29/2022 05/31/2022 Last Assessment & Plan: Assessment: Metabolic/lactic acidosis PLAN: Volume resuscitation, wean pressors. Other adjustment reaction wi th predominant disturbance of other emotions 01/17/2011 01/25/2015 Non-healing surgical wound 07/06/200901/25 Cellulitis and abscess of unspecified site 07/0401/25/2015 Abnormal weight gain 02/18/2006 01/25/2015 OVERWEIGHT 02/18/2006 01/25/2015 documented as of this encounter (statuses as of 01/23/2023) [facility]09[facility] History of Past illness Narrative* Problem Noted Date Resolved Date Hypokalemia 06/08/2022 06/27/2022 Pancreatic duct leak 06/06/2022 06/27/2022 Last Assessment & Plan: Continue drain ERCP tomorrow Broad spectrum Abx Hypovolemia 05/29/2022 06/27/2022 Last Assessment & Plan: Assessment: S/p ex lap 05/29 with intraoperative hypotension. 1L EBL Bedside TTE is hyperdynamic, collapsed IVC. [place] with SVRI of 3600 Repeat bedside echo showed better fluid status OOB in chair today Plan - Volume resuscitation, transfuse as needed - montior IOs Acute post-hemorrhagic anemia 05/29/2022 Last Assessment & Plan: Transfuse as indicated Acute postoperative respiratory insufficiency 06/27/2022 Last Assessment & Plan: Assessment: extubated 05/30 Maintaining adequate saturations ORA PLAN: - IS/BPH - OOB Postoperative shock 05/29/2022 06/27/2022 Last Assessment & Plan: Assessment: Post-operative shock due to hypovolemia/blood loss Was admitted to SICU on multiple pressors Currently off pressors. Plan: - continue Zosyn IV - continue SDS Metabolic acidosis 05/29/2022 05/31/2022 Last Assessment & Plan: Assessment: Metabolic/lactic acidosis PLAN: Volume resuscitation, wean pressors. Other adjustment reaction wi th predominant disturbance of other emotions 01/17/2011 01/25/2015 Non-healing surgical wound 07/06/200901/25 Cellulitis and abscess of unspecified site 07/0401/25/2015 Abnormal weight gain 02/18/2006 01/25/2015 OVERWEIGHT 02/18/2006 01/25/2015 documented as of this encounter (statuses as of 02/13/2023) [facility]09[facility] History of Past illness Narrative* Problem Noted Date Diagnosed Date Resolved Date Hypokalemia 06/08/2022 06/27/2022 Pancreatic duct leak 06/06/2022 022 Last Assessment & Plan: Continue drain ERCP tomorrow Broad spectrum Abx Hypovolemia 05/29/2022 06/27/2022 Last Assessment & Plan: Assessment: S/p ex lap 05/29 with intraoperative hypotension. 1L EBL Bedside TTE is hyperdynamic, collapsed IVC. [place] with SVRI of 3600 Repeat bedside echo showed better fluid status OOB in chair today Plan - Volume resuscitation, transfuse as needed - montior IOs Acute post-hemorrhagic anemia 05/29/2022 06/27/2022 Last Assessment & Plan: Transfuse as indicated Acute postoperative respiratory insufficiency 05/29/2006/27/2022 Last Assessment & Plan: Assessment: extubated 05/30 Maintaining adequate saturations ORA PLAN: - IS/BPH - OOB Postoperative shock 05/29/2022 06/27/20 Last Assessment & Plan: Assessment: Post-operative shock due to hypovolemia/blood loss Was admitted to SICU on multiple pressors Currently off pressors. Plan: - continue Zosyn IV - continue SDS Metabolic acidosis 05/29/2022 Last Assessment & Plan: Assessment: Metabolic/lactic acidosis PLAN: Volume resuscitation, wean pressors. Other adjustment reaction wi th predominant disturbance of other emotions 01/17/2011 01/25/2015 Non-healing surgical wound 07/06/2009 0 01/25/2015 Cellulitis and abscess of unspecified site 07/04/2009 01/25/2015 Abnormal weight gain 02/18/2006 015 OVERWEIGHT 02/18/2006 01/25/2015 documented as of this encounter (statuses as of 04/18/2023) [facility] History of Past illness Narrative* Problem Noted Date Diagnosed Date Resolved Date Hypokalemia 06/08/2022 06/27/2022 Pancreatic duct leak 06/06/2022 022 Last Assessment & Plan: Continue drain ERCP tomorrow Broad spectrum Abx Hypovolemia 05/29/2022 06/27/2022 Last Assessment & Plan: Assessment: S/p ex lap 05/29 with intraoperative hypotension. 1L EBL Bedside TTE is hyperdynamic, collapsed IVC. [place] with SVRI of 3600 Repeat bedside echo showed better fluid status OOB in chair today Plan - Volume resuscitation, transfuse as needed - montior IOs Acute post-hemorrhagic anemia 05/29/2022 06/27/2022 Last Assessment & Plan: Transfuse as indicated Acute postoperative respiratory insufficiency 05/29/2006/27/2022 Last Assessment & Plan: Assessment: extubated 05/30 Maintaining adequate saturations ORA PLAN: - IS/BPH - OOB Postoperative shock 05/29/2022 06/27/20 Last Assessment & Plan: Assessment: Post-operative shock due to hypovolemia/blood loss Was admitted to SICU on multiple pressors Currently off pressors. Plan: - continue Zosyn IV - continue SDS Metabolic acidosis 05/29/2022 Last Assessment & Plan: Assessment: Metabolic/lactic acidosis PLAN: Volume resuscitation, wean pressors. Other adjustment reaction wi th predominant disturbance of other emotions 01/17/2011 01/25/2015 Non-healing surgical wound 07/06/2009 0 01/25/2015 Cellulitis and abscess of unspecified site 07/04/2009 01/25/2015 Abnormal weight gain 02/18/2006 015 OVERWEIGHT 02/18/2006 01/25/2015 documented as of this encounter (statuses as of 05/14/2023) [facility] History of Past illness Narrative* Problem Noted Date Diagnosed Date Resolved Date Hypokalemia 06/08/2022 06/27/2022 Pancreatic duct leak 06/06/2022 022 Last Assessment & Plan: Continue drain ERCP tomorrow Broad spectrum Abx Hypovolemia 05/29/2022 06/27/2022 Last Assessment & Plan: Assessment: S/p ex lap 05/29 with intraoperative hypotension. 1L EBL Bedside TTE is hyperdynamic, collapsed IVC. [place] with SVRI of 3600 Repeat bedside echo showed better fluid status OOB in chair today Plan - Volume resuscitation, transfuse as needed - montior IOs Acute post-hemorrhagic anemia 05/29/2022 06/27/2022 Last Assessment & Plan: Transfuse as indicated Acute postoperative respiratory insufficiency 05/29/2006/27/2022 Last Assessment & Plan: Assessment: extubated 05/30 Maintaining adequate saturations ORA PLAN: - IS/BPH - OOB Postoperative shock 05/29/2022 06/27/20 Last Assessment & Plan: Assessment: Post-operative shock due to hypovolemia/blood loss Was admitted to SICU on multiple pressors Currently off pressors. Plan: - continue Zosyn IV - continue SDS Metabolic acidosis 05/29/2022 Last Assessment & Plan: Assessment: Metabolic/lactic acidosis PLAN: Volume resuscitation, wean pressors. Other adjustment reaction wi th predominant disturbance of other emotions 01/17/2011 01/25/2015 Non-healing surgical wound 07/06/2009 0 01/25/2015 Cellulitis and abscess of unspecified site 07/04/2009 01/25/2015 Abnormal weight gain 02/18/2006 015 OVERWEIGHT 02/18/2006 01/25/2015 documented as of this encounter (statuses as of 06/25/2023) [facility] History of Past illness Narrative* Problem Noted Date Diagnosed Date Resolved Date Hypokalemia 06/08/2022 06/27/2022 Pancreatic duct leak 06/06/2022 022 Last Assessment & Plan: Continue drain ERCP tomorrow Broad spectrum Abx Hypovolemia 05/29/2022 06/27/2022 Last Assessment & Plan: Assessment: S/p ex lap 05/29 with intraoperative hypotension. 1L EBL Bedside TTE is hyperdynamic, collapsed IVC. [place] with SVRI of 3600 Repeat bedside echo showed better fluid status OOB in chair today Plan - Volume resuscitation, transfuse as needed - montior IOs Acute post-hemorrhagic anemia 05/29/2022 06/27/2022 Last Assessment & Plan: Transfuse as indicated Acute postoperative respiratory insufficiency 05/29/2006/27/2022 Last Assessment & Plan: Assessment: extubated 05/30 Maintaining adequate saturations ORA PLAN: - IS/BPH - OOB Postoperative shock 05/29/2022 06/27/20 Last Assessment & Plan: Assessment: Post-operative shock due to hypovolemia/blood loss Was admitted to SICU on multiple pressors Currently off pressors. Plan: - continue Zosyn IV - continue SDS Metabolic acidosis 05/29/2022 Last Assessment & Plan: Assessment: Metabolic/lactic acidosis PLAN: Volume resuscitation, wean pressors. Other adjustment reaction wi th predominant disturbance of other emotions 01/17/2011 01/25/2015 Non-healing surgical wound 07/06/2009 0 01/25/2015 Cellulitis and abscess of unspecified site 07/04/2009 01/25/2015 Abnormal weight gain 02/18/2006 015 OVERWEIGHT 02/18/2006 01/25/2015 documented as of this encounter (statuses as of 08/04/2023) [facility] History of Past illness Narrative* Problem Noted Date Diagnosed Date Resolved Date Hypokalemia 06/08/2022 06/27/2022 Pancreatic duct leak 06/06/2022 022 Last Assessment & Plan: Continue drain ERCP tomorrow Broad spectrum Abx Hypovolemia 05/29/2022 06/27/2022 Last Assessment & Plan: Assessment: S/p ex lap 05/29 with intraoperative hypotension. 1L EBL Bedside TTE is hyperdynamic, collapsed IVC. [place] with SVRI of 3600 Repeat bedside echo showed better fluid status OOB in chair today Plan - Volume resuscitation, transfuse as needed - montior IOs Acute post-hemorrhagic anemia 05/29/2022 06/27/2022 Last Assessment & Plan: Transfuse as indicated Acute postoperative respiratory insufficiency 05/29/2006/27/2022 Last Assessment & Plan: Assessment: extubated 05/30 Maintaining adequate saturations ORA PLAN: - IS/BPH - OOB Postoperative shock 05/29/2022 06/27/20 Last Assessment & Plan: Assessment: Post-operative shock due to hypovolemia/blood loss Was admitted to SICU on multiple pressors Currently off pressors. Plan: - continue Zosyn IV - continue SDS Metabolic acidosis 05/29/2022 Last Assessment & Plan: Assessment: Metabolic/lactic acidosis PLAN: Volume resuscitation, wean pressors. Other adjustment reaction wi th predominant disturbance of other emotions 01/17/2011 01/25/2015 Non-healing surgical wound 07/06/2009 0 01/25/2015 Cellulitis and abscess of unspecified site 07/04/2009 01/25/2015 Abnormal weight gain 02/18/2006 015 OVERWEIGHT 02/18/2006 01/25/2015 documented as of this encounter (statuses as of 08/04/2023) [facility] History of Past illness Narrative* Problem Noted Date Diagnosed Date Resolved Date Hypokalemia 06/08/2022 06/27/2022 Pancreatic duct leak 06/06/2022 022 Last Assessment & Plan: Continue drain ERCP tomorrow Broad spectrum Abx Hypovolemia 05/29/2022 06/27/2022 Last Assessment & Plan: Assessment: S/p ex lap 05/29 with intraoperative hypotension. 1L EBL Bedside TTE is hyperdynamic, collapsed IVC. [place] with SVRI of 3600 Repeat bedside echo showed better fluid status OOB in chair today Plan - Volume resuscitation, transfuse as needed - montior IOs Acute post-hemorrhagic anemia 05/29/2022 06/27/2022 Last Assessment & Plan: Transfuse as indicated Acute postoperative respiratory insufficiency 05/29/2006/27/2022 Last Assessment & Plan: Assessment: extubated 05/30 Maintaining adequate saturations ORA PLAN: - IS/BPH - OOB Postoperative shock 05/29/2022 06/27/20 Last Assessment & Plan: Assessment: Post-operative shock due to hypovolemia/blood loss Was admitted to SICU on multiple pressors Currently off pressors. Plan: - continue Zosyn IV - continue SDS Metabolic acidosis 05/29/2022 Last Assessment & Plan: Assessment: Metabolic/lactic acidosis PLAN: Volume resuscitation, wean pressors. Other adjustment reaction wi th predominant disturbance of other emotions 01/17/2011 01/25/2015 Non-healing surgical wound 07/06/2009 0 01/25/2015 Cellulitis and abscess of unspecified site 07/04/2009 01/25/2015 Abnormal weight gain 02/18/2006 015 OVERWEIGHT 02/18/2006 01/25/2015 documented as of this encounter (statuses as of 11/12/2023) [facility] History of Past illness Narrative* Problem Noted Date Diagnosed Date Resolved Date Hypokalemia 06/08/2022 06/27/2022 Pancreatic duct leak 06/06/2022 022 Last Assessment & Plan: Continue drain ERCP tomorrow Broad spectrum Abx Hypovolemia 05/29/2022 06/27/2022 Last Assessment & Plan: Assessment: S/p ex lap 05/29 with intraoperative hypotension. 1L EBL Bedside TTE is hyperdynamic, collapsed IVC. [place] with SVRI of 3600 Repeat bedside echo showed better fluid status OOB in chair today Plan - Volume resuscitation, transfuse as needed - montior IOs Acute post-hemorrhagic anemia 05/29/2022 06/27/2022 Last Assessment & Plan: Transfuse as indicated Acute postoperative respiratory insufficiency 05/29/2006/27/2022 Last Assessment & Plan: Assessment: extubated 05/30 Maintaining adequate saturations ORA PLAN: - IS/BPH - OOB Postoperative shock 05/29/2022 06/27/20 Last Assessment & Plan: Assessment: Post-operative shock due to hypovolemia/blood loss Was admitted to SICU on multiple pressors Currently off pressors. Plan: - continue Zosyn IV - continue SDS Metabolic acidosis 05/29/2022 Last Assessment & Plan: Assessment: Metabolic/lactic acidosis PLAN: Volume resuscitation, wean pressors. Other adjustment reaction wi th predominant disturbance of other emotions 01/17/2011 01/25/2015 Non-healing surgical wound 07/06/2009 0 01/25/2015 Cellulitis and abscess of unspecified site 07/04/2009 01/25/2015 Abnormal weight gain 02/18/2006 015 OVERWEIGHT 02/18/2006 01/25/2015 documented as of this encounter (statuses as of 01/16/2024) [facility]30-[facility] History of Past illness Narrative* Problem Noted Date Resolved Date Metabolic acidosis 05/29/2022 05/31/2022 Last Assessment & Plan: Assessment: Metabolic/lactic acidosis PLAN: Volume resuscitation, wean pressors. Other adjustment reaction wi th predominant disturbance of other emotions 01/17/2011 01/25/2015 Non-healing surgical wound 07/06/200901/25 Cellulitis and abscess of unspecified site 07/0401/25/2015 Abnormal weight gain 02/18/2006 01/25/2015 OVERWEIGHT 02/18/2006 01/25/2015 documented as of this encounter (statuses as of 06/07/2022) [facility] History of Past illness Narrative* Problem Noted Date Resolved Date Metabolic acidosis 05/29/2022 05/31/2022 Last Assessment & Plan: Assessment: Metabolic/lactic acidosis PLAN: Volume resuscitation, wean pressors. Other adjustment reaction wi th predominant disturbance of other emotions 01/17/2011 01/25/2015 Non-healing surgical wound 07/06/200901/25 Cellulitis and abscess of unspecified site 07/0401/25/2015 Abnormal weight gain 02/18/2006 01/25/2015 OVERWEIGHT 02/18/2006 01/25/2015 documented as of this encounter (statuses as of 06/14/2022) [address]30-2022 History of Past illness Narrative* Problem Noted Date Resolved Date Metabolic acidosis 05/29/2022 05/31/2022 Last Assessment & Plan: Assessment: Metabolic/lactic acidosis PLAN: Volume resuscitation, wean pressors. Other adjustment reaction wi th predominant disturbance of other emotions 01/17/2011 01/25/2015 Non-healing surgical wound 07/06/200901/25 Cellulitis and abscess of unspecified site 07/0401/25/2015 Abnormal weight gain 02/18/2006 01/25/2015 OVERWEIGHT 02/18/2006 01/25/2015 documented as of this encounter (statuses as of 06/26/2022) [facility] Instructions* Patient Instructions* Monroe Ortiz MD - 05/11/2022 9:36 AM EDT PATIENT PREOPERATIVE INSTRUCTIONS Nicolasa Denise DO has scheduled you for your procedure at this surgery center: [facility] Scheduling Office: [phone] --[address] [place] [address]. Please read below carefully for your personalized instructions. Dietary Restrictions: - No solid food after midnight. - You may have 12 ounces of clear liquids (water, clear juices such as apple juice or gatorade, carbonated beverages, clear tea, black coffee, jello) until 2 hours before scheduled arrival at facility. Medications: Unless instructed differently below, stay on all of your medications until your surgery. Approved medications to take the morning of surgery with a sip of water: wellbutrin If you start any new medications after today's visit, please contact the surgeon's office. Blood Thinning Medications: - Stop NSAIDS (Ibuprofen, Advil, Aleve, Motrin, Celebrex, Mobic, etc.) 7 days before surgery, as directed by your surgeon. Important Reminders: - If you use CPAP/BIPAP, bring the machine with you to the surgery center. - Candy, mints, and tobacco products are NOT permitted the morning of surgery. - Hearing aids, dentures and glasses may be worn the morning of surgery. - NO jewelry, body piercings, makeup, hairpins or contacts are to be worn the day of surgery. If you develop symptoms such as a fever, cold, or flu, or have other changes to your health within TWO DAYS of scheduled surgery or the morning of surgery, please contact the surgery center above. Personal Belongings: -Please have photo ID and insurance cards. -If you do not have a copy of advance directives on file with us, please bring a copy with you on the day of surgery. - Leave ALL valuables and money at home or with family members. Arrival Time for Surgery: - To obtain your arrival time for surgery, call your physician's office the day before your surgery. - If your surgery is scheduled for Saturday, call the Saturday before. Your surgeon s museum service scheduler will tell you what time to call the office. - If you have not reached the departmental museum service scheduler by 5 P.M., call [phone] after 5 P.M. the day before your surgery. Please be aware that emergency situations arise, which may delay or change your surgical time. If this happens, we will notify you as soon as possible and regret any inconvenience. If you already have an Advance Directive, please fax a copy to [phone] or email to for it to be added to your chart. If you do not have an Advance Directive, you can find the appropriate form and more information at [email or web address]. We recommend that youcomplete the Advance Directive form found on the website and bring it with you the day of your surgery. It can be witnessed and scanned into your chart that day. Monroe Ortiz MD documented in [facility] encounter[facility] History and physical note * Monroe Ortiz MD - 05/11/2022 9:20 AM EDT HISTORY AND PHYSICAL EXAMINATION SERVICE DATE: 05/11/2022 SERVICE TIME: 9:35 AM PRIMARY CARE PHYSICIAN: Harjeet Bernard MD REASON FOR VISIT: Dov Burrows is a 52 year old male who is scheduled for EXPLORATORY LAPAROTOMY, CHEMOTHERAPY ADMINISTRATION INTO THE PERITONEAL CAVITY VIA INDWELLING PORT/CATHETER, ILEOSTOMY NON-TUBE - (Possible)at the request of Dr. Nicolasa Denise for consultation. My final recommendation will be communicated back to the requesting physician by way of shared medical record or letter. The patient has the following: ACTIVE PROBLEM LIST Obstructive Sleep Apnea Syndrome Other Malaise and Fatigue Anxiety State, Unspecified Hypercholesteremia <130 Depressive Disorder, Not Elsewhere Classified Non Morbid Obesity Due to Excess Calories Low Grade Mucinous Neoplasm of Appendix Anemia Subjective CHIEF COMPLAINT: abd mass HPI: Patient is a 52 year old male who is scheduled for EXPLORATORY LAPAROTOMY, CHEMOTHERAPY ADMINISTRATION INTO THE PERITONEAL CAVITY VIA INDWELLING PORT/CATHETER, ILEOSTOMY NON-TUBE - (Possible) on05/29/2022. Patient has abdominal mass. 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 S cheduled for potential debulking and HIPEC. Denies any fevers, chills, nausea, vomiting, SOB or chest pain. 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 Other and unspecified hyperlipidemia Other malaise and fatigue Unspecified sleep apnea PAST SURGICAL HISTORY Procedure Laterality Date COLONOSCOPY SCREENING 04/26/2022 EGD W/O [facility] SPEC VARICIES INJ 04/26/2022 FAMILY HISTORY Problem Relation Age of Onset Dementia Mother Diabetes Father Pancreatic Cancer Father SOCIAL HISTORY: Social History Tobacco Use Smoking status: Never Smokeless tobacco: Never Vaping Use Vaping Use: Never used Substance Use Topics Alcohol use: Never Drug use: Never MEDICATIONS: Prior to Admission medications as of 05/04/22 0949 Medication Sig Last Dose Taking peg 3350-Electrolytes (GOLYTELY) 236-22.74-6.74 -5.86 gram suspension Refer to printed prep instructions from your provider. Patient not taking: Reported on 05/04/2022 ferrous sulfate 325 mg (65 mg iron) tablet Take 1 tablet by mouth daily with breakfast. docusate sodium (COLACE) 100 mg capsule Take 1 capsule by mouth twice daily as needed for constipation. Patient not taking: Reported on 05/04/2022 buPROPion SR (WELLBUTRIN SR) 150 mg 12 hr tablet Take 1 tablet by mouth twice daily. sertraline (ZOLOFT) 100 mg tablet Take 1.5 tablets by mouth once daily. CPAP Continue Auto PAP @ 5-20 cm of water with humidification. Mask (per patient preference) optional chin strap (if indicated) , filters, tubing, humidifier and lifetime supplies. AMBROSE G47.33 multivitamin tablet Take 1 tablet by mouth once daily. No medication comments found. CURRENT ALLERGIES: ALLERGIES No Known Allergies COVID VACCINATION STATUS: COVID-19 Immunization Status Postponed - COVID-19 VACCINE (1) Postponed until 07/04/2022 07/04/2021 Postponed until 07/04/2022 by Harjeet Bernard MD (Declined at this time - Never been sick before) REVIEW OF SYSTEMS: PAIN ASSESSMENT: General: No weight loss, malaise or fevers. Neuro: No history of TIA's, stroke, [employer] tumor, impaired sensorium, hemiplegia, paraplegia or quadraplegia. No neurological symptoms or problems. Respiratory: No history of current cough or dyspnea, or pneumonia in the past 6 weeks. No history of respiratory/pulmonary symptoms or problems. +AMBROSE Cardiovascular: No history of HTN requiring medication, no history of angina, CHF, PA, cardiac surgery or stents. Denies rest pain, gangrene or revascularization/amputation for PVD. No history of cardiovascular symptoms or problems. +HLD GI: Negative for GERD, Nausea, Vomiting : No history of dysuria, frequency or incontinence,, stones or chronic kidney disease Endocrine: No history of diabetes. Has not taken steroids within the past 30 days. No history of endocrinological symptoms or problems. Hematology: No history of bleeding or clotting disorder. Pt is not taking anti- coagulation or platelet medications. No history of hematological symptoms or problems. +anemia Oncology: No history of CA metastasis, chemo within 30 days, or radiotherapy within 90 days. Has not lost 10% of body wt in 6 months. No history of oncological symptoms or problems. see HPI Psych: Depression +depression Musculoskeletal: Negative for joint pain or swelling, back pain or muscle pain. Skin: Negative for lesions, rash and itching. Objective PHYSICAL EXAM: VITALS: BP 134/76 Pulse 80 Temp (Src) 97 (Temporal) Ht 6' 1 (1.85m) Wt 231 lb (104.8kg) SpO2 99% BMI 30.48 kg/(m^2). General: Alert and oriented, No acute distress Skin: Normal color, no rash, no lesions. HEENT: EOM, pupils equal, round and reactive. Cardiovascular: Normal S1 & S2, no rubs, murmurs or gallops. No JVD. Pulse regular. Lungs: Normal breath sounds, no wheezes or crackles. Extremities: No deformity, no edema or tenderness, no joint swelling or clubbing. Neurological: Normal cognition and motor skills. Diagnostic tests reviewed for today's visit: Lab Value Units Date High Low HB 10.0 g/dL 04/23/2022 17.0 13.0 HCT 33.9 % 04/23/2022 51.0 39.0 WBC 6.78 k/uL 04/23/2022 11.00 3.70 PLT 407 k/uL 04/23/2022 400 150 NA 136 mmol/L 04/19/2022 144 136 K 4.1 mmol/L 04/19/2022 5.1 3.7 GLUC 92 mg/dL 04/19/2022 99 74 BUN 21 mg/dL 04/19/2022 24 9 CREAT 0.80 mg/dL 04/19/2022 1.22 0.73 PTSEC 11.7 sec 04/23/2022 13.0 9.7 INR 1.1 no uni* 04/23/2022 1.3 0.9 APTT No results within date range. ALT 7 U/L 04/19/2022 54 10 AST 10 U/L 04/19/2022 40 14 TBILI 0.2 mg/dL 04/19/2022 1.3 0.2 TSH No results within date range. Lab Value Units Date High Low HCGQT No results within date range. UHCG No results within date range. HCG, BODY* No results within date range. Lab Value Units Date High Low ABORHD No results within date range. ABSCREEN No results within date range. Hemoglobin A1C (%) Date Value 07/04/2021 5.2 10/11/2018 5.2 PENDING Assessment/Plan Anemia Previous iron studies indicate anemia of chronic disease, Endoscopy revealed no source of GI blood loss - on oral iron Obstructive sleep apnea syndrome Uses CPAP Hypercholesteremia <130 No meds DEPRESSIVE DISORDER NEC On bupropion and sertraline, stable METS: Climb a flight of stairs or walk up a hill (5.50 METs) Do heavy work around the house, such as scrubbing floors, lifting or moving heavy furniture (8.00 METs) ASA Class: 3 ANESTHESIA FINDINGS: Intubation History: No prior intubation Significant Anesthesia Considerations: None Airway Exam: General: Normal appearance Mallampati Score is CLASS I ULBT: Class I - Lower incisors can bite the upper lip above the nilo line Neck: Normal appearance and function, Distance from hyoid to mentum during neck extension is at least 3 finger breaths Mouth: Normal tongue size Dentition: Caps/crowns Airway History: No prior intubation STOP BANG Score: AMBROSE uses CPAP/BiPAP PLAN This patient is optimally prepared for surgery pending LABS and EKG. CONSULTS: Patient does not require consults for optimization at this time. The Following Tests/Procedures Have Been Initiated: EKG, labs ordered by surgery Planned Anesthetic: Per anesthesia choice Instructions Given to Patient: Instructions located in the after visit summary. Patient given verbal and written preop instructions and voices comprehension and compliance. SIGNATURE: Monroe Ortiz MD PATIENT NAME: Dov Burrows DATE: May 11, 2022 TIME: 8:21 AM Attending Note I evaluated the patient and personally participated in the gallagher components. I agree with the resident's findings and plan as documented and have discussed the case and management of the patient's carewith the resident. Signature: Carin Ho MD Date: 05/11/2022 Time: 10:57 AM documented in this encounterUniversity [facility]als [facility] History and physical note * Nicolasa Denise DO - 05/04/2022 9:40 AM EDT COLORECTAL SURGERY New Patient Visit May 02, 2022 Chief Complaint: mucinous peritoneal carcinomatosis History of Present Illness: Dov Burrows is a 52 year old male here today to be evaluated for carcinomatosis. He admits to some recent unintentional weight loss, and abdominal distention. CT scan showed omental caking, and pelvic masses. Biopsy of peritoneum showed mucin. 04/24/22 Image guided biopsy IMPRESSION: CT guided peritoneal biopsy as described. No fluid could be aspirated under CT. Ultrasound was thenused to evaluate for fluid which demonstrated diffuse soft tissue/peritoneal carcinomatosis throughout all 4 quadrants. No drainable fluid visualized. 04/20/22 CT ABD/PELV IMPRESSION: Serosal scalloping of the liver Loculated abdominal and pelvic ascites. Mass like omental caking. Pelvic masses. The findings are suspicious for extensive carcinomatosis PAST MEDICAL HISTORY Diagnosis Date Anxiety state, unspecified Other and unspecified hyperlipidemia Other malaise and fatigue Unspecified sleep apnea PAST SURGICAL HISTORY Procedure Laterality Date COLONOSCOPY SCREENING [facility] 04/26/[facility]22 Current Outpatient Medications Medication Sig Dispense Refill ferrous sulfate 325 mg (65 mg iron) tablet Take 1 tablet by mouth daily with breakfast. 90 tablet 1 buPROPion SR (WELLBUTRIN SR) 150 mg 12 hr tablet Take 1 tablet by mouth twice daily. 180 tablet 3 sertraline (ZOLOFT) 100 mg tablet Take 1.5 tablets by mouth once daily. 135 tablet 3 CPAP Continue Auto PAP @ 5-20 cm of water with humidification. Mask (per patient preference) optional chin strap (if indicated) , filters, tubing, humidifier and lifetime supplies. AMBROSE G47.33 1 Device 99 multivitamin tablet Take 1 tablet by mouth once daily. 0 peg 3350-Electrolytes (GOLYTELY) 236-22.74-6.74 -5.86 gram suspension Refer to printed prep instructions from your provider. (Patient not taking: Reported on 05/04/2022 ) 4000 mL 0 docusate sodium (COLACE) 100 mg capsule Take 1 capsule by mouth twice daily as needed for constipation. (Patient not taking: Reported on 05/04/2022 ) No current facility-administered medications for this visit. ALLERGIES No Known Allergies Review of Systems / PACC screen: Do you have difficulty climbing a full flight of stairs without feeling short of breath? no Do you require oxygen for your breathing or have your gone to an emergency department because of breathing problems? no Are you on dialysis or have you been told that your kidneys do not work well as they should? no Do have an implanted cardiac device (pacemaker, defibrillator etc.) that has not been checked in the last 6 months? no Have you had an organ transplant? no Have you been told that you had excessive bleeding during surgical procedures or do you take blood thinning medications other than aspirin? no Have you ever had a heart attack, heart stents/surgery, valve problems, or other heart problems? no Have you had a stroke, seizures, or unexplained loss of consciousness? no Do you have a neurologic condition like Parkinson's disease or multiple sclerosis? no Have you or a blood relative had a life-threatening reaction to anesthesia? no Do you have cirrhosis of the liver or other liver disease? no Have you had a blood clot within the past year? no Do you take insulin or other injections for diabetes? no Do you have sleep apnea or have you been told you may have sleep apnea? Yes, currently using c-pap for sleep apnea. Do you have other implanted devices (deep brain stimulator, spinal cord stimulator, etc.)? no Physical Exam: BP 138/79 Pulse 86 Temp 36.7 C (98.1 F) (Temporal) Resp 20 Ht 185.4 cm (6' 1) Wt 103.8 kg (228 lb 12.8 oz) SpO2 100% BMI 30.19 kg/m General Appearance: Well appearing, alert, in no acute distress, well-hydrated, well nourished. Lungs: Lungs clear to auscultation. No wheezing, rhonchi, rales. Heart: RRR without murmur, gallop, or rubs. No ectopy Edema: no Abdomen: Normal abdominal exam, Abdomen soft, non-tender. Bowel sounds normal. No masses, organomegaly Assessment Medical Decision Making: Assessment & Diagnosis: Dov Burrows is a 52 year old male mucinous ascites and omental caking Pathology from biopsy reveals acellular mucin and no malignant cells Data Reviewed: Tests & Documents Reviewed/ordered: Review of prior notes from [facility] Review of prior operative reports Review of Pathology Review of Imaging: CT Abdomen, CT Pelvis, CT Chest Review of Labs: CBC, BMP, CEA, CA 125 Review of Procedures / Tests: Colonoscopy I have independently interpreted: CT Abdomen, CT Pelvis, CT Chest I have discussed Dov Burrows's treatment plan and/or results with patient, medical oncology, general surgery. Treatment plan: Exploratory lap, CRS and HIPEC Nicolasa Denise DO, FACS, FASCRS Colorectal Surgery Colorectal Surgery Risk of morbidity, mortality and/or complications of treatment plan: high I have confirmed and edited as necessary, the PFSH and ROS obtained by others. 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 The impression and plan will be communicated by way of the shared electronic record or faxed under separate cover letter. HPI: The patient is a 52-year-old male with a past medical history significant for hypercholesterolemia, obstructive sleep apnea (CPAP x22 years) and obesity. Was referred to Dr. Clarke for microcytic anemia. On initial exam and impressive firm diffuse abdominal mass was appreciated. CT A/P 04/20/2022: RESULT: Liver: Serosal scalloping is suspicious for serosal tumor implants. Low-density foci in the liver are nonspecific, likely benign. Biliary: No bile duct dilation. Gallbladder is unremarkable. Spleen: No mass. No splenomegaly. Pancreas: No mass or duct dilation. Adrenals: No mass. Kidneys: No suspicious mass or gross obstructive uropathy GI tract: No dilation or wall thickening. Lymph nodes: No abdominal or pelvic lymphadenopathy. Mesentery/Peritoneum: Large volume abdominal loculated ascites. Significant omental caking. The omentum is approximately 6 cm in thickness. The appearance is consistent with carcinomatosis. Retroperitoneum: No mass. Vasculature: The aorta is normal in caliber. Pelvis: Moderate loculated pelvic fluid. Complex right pelvic mass is poorly seen due to low density. Multiple loculations and septations within it. Approximately 9.8 x 8.4 x 5.5 cm. Additional low density pelvic mass of 8.8 x 3.4 by approximately 7.6 cm. Calcifications are seen within it. Presumably psammomatous calcifications Bones/Soft Tissues: No significant finding. Lower thorax: Unremarkable. Barkeeper (topogram) images: No additional findings. IMPRESSION: Serosal scalloping of the liver Loculated abdominal and pelvic ascites. Mass like omental caking. Pelvic masses. The findings are suspicious for extensive carcinomatosis. Underwent peritoneal biopsy 2022. Pathology: Peritoneum, biopsy: - Focal acellular mucin; see comment The biopsy consists predominantly of peritoneal fibrous tissue, but is notable for focal acellular mucin. While the specimen lacks overt carcinoma, resampling may be necessary to further characterizethe mucin and its source. An immunohistochemical stain for AE1/3 highlights a very limited low cuboidal non- mucinous cell layer suggestive of mesothelium, although the possibility of low grade epithelium cannot be completely excluded He underwent EGD and colonoscopy. Colonoscopy was significant for tumor like mass at the appendix. Biopsy not obtained. Denies pain. Appetite decreased. Early satiety. ~50 lb weight loss since 2017. Bowels moving regularly. Formed stools. No black or bloody stools. A little darker from the iron. Tolerates oral iron well. Better energy last few months since getting CPAP adjusted. PAST MEDICAL HISTORY Diagnosis Date Anxiety state, unspecified Other and unspecified hyperlipidemia Other malaise and fatigue Unspecified sleep apnea PAST SURGICAL HISTORY Procedure Laterality Date COLONOSCOPY SCREENING 04/26/2022 EGD W/O [facility] SPEC VARICIES INJ 04/26/2022 ALLERGIES No Known Allergies Current Outpatient Medications on File Prior to Visit Medication Sig peg 3350-Electrolytes (GOLYTELY) 236-22.74-6.74 -5.86 gram suspension Refer to printed prep instructions from your provider. ferrous sulfate 325 mg (65 mg iron) tablet Take 1 tablet by mouth daily with breakfast. docusate sodium (COLACE) 100 mg capsule Take 1 capsule by mouth twice daily as needed for constipation. buPROPion SR (WELLBUTRIN SR) 150 mg 12 hr tablet Take 1 tablet by mouth twice daily. sertraline (ZOLOFT) 100 mg tablet Take 1.5 tablets by mouth once daily. CPAP Continue Auto PAP @ 5-20 cm of water with humidification. Mask (per patient preference) optional chin strap (if indicated) , filters, tubing, humidifier and lifetime supplies. AMBROSE G47.33 multivitamin tablet Take 1 tablet by mouth once daily. Social history: Life long non-smoker. No alcohol. Two children. Lives with SO in [place]. Works at [employer] in [place]. Family history: 1) Father--Pancreas cancer age 72. ROS: Constitutional: Denies episodes of fever and night sweats. Neuro: Denies MOREJON, vertigo, dizziness and imbalance. Denies symptoms of neuropathy. HEENT: No recent change in voice, vision or hearing. Resp: Denies cough, wheeze and hemoptysis. Denies shortness of breath at rest. Denies LIMON. CVS: Denies exertional chest pain, PND, orthopnea and LE edema. GI: See above. : Denies dysuria or gross hematuria. No symptoms of bladder outlet obstruction. Endo: Denies hot flashes. Denies polyuria and polydipsia. Denies heat and cold intolerance. Musculoskeletal: Denies bone, back, joint and muscular pain. Derm: Denies rash. Denies jaundice and diffuse pruritis. Heme: Denies unusual bleeding and unexplained bruising. Psych: Normal mood. PHYSICAL EXAM: Vitals: Blood pressure 119/76, pulse 80, temperature 36.8 C (98.2 F), weight 103.9 kg (229 lb), SpO2 98 %. Well-appearing and in no acute distress. EYES: Sclerae are anicteric bilaterally. LYMPHATIC: There is no palpable cervical, supraclavicular or axillary adenopathy. RESPIRATORY: Inspiratory breath sounds are of normal intensity in all rincon. No rales, wheezes or rhonchi. Expiratory phase is normal. CARDIOVASCULAR: Rhythm is regular. Normal intensity S1/S2. ABDOMEN: The abdomen is distended and there is a firm diffuse mass across the upper and mid abdomenworse on the left. Protruding umbilical hernia. No fluid wave. SKIN: No jaundice or rash. No petechiae. NEUROLOGIC: back tender paper machine II-XII are grossly intact. No focal motor weakness. MUSCULOSKELETAL: Mild temporal muscle wasting. 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 -Personally reviewed CT imaging. -I explained to the patient that since there is no clear diagnosis as of yet, the purpose of today's visit was for me to gather history and be aware of his case should he need further oncologic input. -He has scheduled visit with Dr. Denise tomorrow to discuss potential debulking surgery and HIPEC. Plan: -Office visit in about 8 weeks. Can be changed accordingly pending outcome of above. -Recommend genetic counseling based on his disease and father's history of pancreas cancer. We willmake referral at the time of his next office visit. (D50.9) Microcytic anemia Assessment: -Iron indexes indicate anemia of chronic disease. -Endoscopy revealed no source of GI blood loss. -Discussed the pathophysiology of this with the patient and his . Plan: -Check serum soluble transferrin receptor level. -Okay to continue oral iron since he tolerates it well. I spent a total of 60 minutes on the date of the service which included preparing to see the patient, [id number] patient care, completing clinical documentation, obtaining and/or reviewing separately obtained history, performing a medically appropriate examination, counseling and educating the pat ient/family/caregiver, independently interpreting results (not separately reported) and communicating results to the patient/family/caregiver. Andre Parnell DO documented in this encounterUniversity Hospitals Geaug[facility]08-03-2022 History of Present illness Narrative* Priscila Clarke MD - 05/02/2022 5:40 PM EDT FOLLOW UP VISIT - ENDOSCOPY NAME: Dov Burrows CLINIC NO.: [id number] DATE OF SERVICE: 05/02/2022 : 1970 REFERRING PHYSICIAN: Harjeet Bernard MD Dov is a patient I am following for an abdominal mass. I initially saw him on April 19 for anemia. I noted: The patient is a 51 year old male referred for endoscopy. Dov notes no history of colon complaints. The patient notes no history of upper GI complaints. He has noted some mild weight loss. After discussion he notes some abdominal distention which he finds is unusual given his weight loss. Dov has not undergone prior endoscopy. In July, the patient found to have microcytic anemia. His fecal occult blood test was negative at that time. The studies repeated in February he still has low iron level and microcytic anemia The patient is being seen by me today at the request of Dr. Harjeet Bernard MD for my opinion and advice regarding anemia. The patient's father of pancreatic cancer. He did not smoke or drink. He was noted to have significant abdominal distention and what was felt to be a palpable mass in the upper abdomen. With further discussion the patient noted that he had early satiety and had been losing weight. I obtained a stat CT scan of the abdomen and pelvis given these findings. This demonstrated: IMPRESSION: Serosal scalloping of the liver Loculated abdominal and pelvic ascites. Mass like omental caking. Pelvic masses. The findings are suspicious for extensive carcinomatosis Findings discussed with Dr. Clarke at 1309 Given these findings I canceled his planned endoscopy for Saturday and was able to arrange for planned omental biopsy and planned aspiration of what was assumed to be ascites. The patient underwent biopsy of what was felt to be his omentum but there was no ability to aspirate fluid for the presumed ascites on CT scan. Pathology returned as: FINAL DIAGNOSIS Peritoneum, biopsy: - Focal acellular mucin; see comment. Diagnosis Comment CCM The biopsy consists predominantly of peritoneal fibrous tissue, but is notable for focal acellular mucin. While the specimen lacks overt carcinoma, resampling may be necessary to further characterizethe mucin and its source. An immunohistochemical stain for AE1/3 highlights a very limited low cuboidal non- mucinous cell layer suggestive of mesothelium, although the possibility of low grade epithelium cannot be completely excluded. Given those findings the consideration for a more mucinous process was anticipated. I performed upper and lower endoscopy on April 26, 2022. The patient was found to have: A normal upper endoscopy with mild gastritis. Lower endoscopy demonstrated what was felt to be a bulging at the level of the appendiceal orifice otherwise the remainder of the colon was unremarkable. Given the patient's CT scan biopsy results and endoscopy findings it was assumed that this could aniyah mucinous neoplasm of the appendix. The patient notes continued early satiety complaints since the procedure. VITALS: Blood pressure 110/62, pulse 99, temperature 36.9 C (98.4 F), height 185.4 cm (6' 1), weight 103 kg (227 lb), SpO2 96 %. On examination, the abdomen is soft, firm, distended. 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 Andre Parnell who is seeing the patient tomorrow. Given the above findings I reached out and communicated to Dr. Nicolasa Denise who is seeing the patient on Saturday for consideration of exploration/intraperitoneal chemotherapy. Diagnoses: (R19.09) Upper abdominal mass (primary encounter diagnosis) Return to Clinic: The patient is instructed to follow-up with me as needed. Priscila Clarke MD documented in this encounterUniversity Hospitals Geaug[facility] Center08-01-2022 Miscellaneous Notes* Telephone Encounter - Priscila Clarke MD - 04/30/2022 4:14 PM EDT Spoke with patient. Discussed plan for care with Dr. Nicolasa Denise. Feels that the patient will likely need exploration and HIPAC. His office will contact him and try to get him seen this week. documented in this encounterUniversity Hospitals Geaug[facility] Center07-28-2022 Nurse Note* Evie Moise RN - 04/26/2022 9:10 AM EDT Patient received in PACU, in left lateral position, eyes closed but responds to verbal stimuli, respirations regular and unlabored, skin warm and dry. Abdomen is distended and firm to light palpation, denies pain or nausea. Misty, girlfriend brought to bedside, Dr Clarke present and reviewed results of procedures today and what his plan will be going forward. documented in this encounterUniversity Hospitals Geauga [facility] Center07-28-2022 History and physical note * Priscila Clarke MD - 04/26/2022 8:15 AM EDT Images from the original note were not included. HISTORY AND PHYSICAL Dov Zepeda First 1970 REFERRING PHYSICIAN: Harjeet Bernard MD CHIEF COMPLAINT: New Patient (Referred by Harjeet Bernard - Anemia ) HPI: The patient is a 51 year old male referred for endoscopy. Dov notes no history of colon complaints. The patient notes no history of upper GI complaints. He has noted some mild weight loss. After discussion he notes some abdominal distention which he finds is unusual given his weight loss. Dov has not undergone prior endoscopy. In July, the patient found to have microcytic anemia. His fecal occult blood test was negative at that time. The studies repeated in February he still has low iron level and microcytic anemia The patient is being seen by me today at the request of Dr. Harjeet Bernard MD for my opinion and advice regarding anemia. The patient's father of pancreatic cancer. He did not smoke or drink. PAST MEDICAL HISTORY PAST MEDICAL HISTORY Diagnosis Date Anxiety state, unspecified Other and unspecified hyperlipidemia Other malaise and fatigue Unspecified sleep apnea PAST SURGICAL HISTORY PAST SURGICAL HISTORY Procedure Laterality Date NONE CURRENT MEDICATIONS Current Outpatient Medications Medication Sig ferrous sulfate 325 mg (65 mg iron) tablet Take 1 tablet by mouth daily with breakfast. docusate sodium (COLACE) 100 mg capsule Take 1 capsule by mouth twice daily as needed for constipation. buPROPion SR (WELLBUTRIN SR) 150 mg 12 hr tablet Take 1 tablet by mouth twice daily. sertraline (ZOLOFT) 100 mg tablet Take 1.5 tablets by mouth once daily. CPAP Continue Auto PAP @ 5-20 cm of water with humidification. Mask (per patient preference) optional chin strap (if indicated) , filters, tubing, humidifier and lifetime supplies. AMBROSE G47.33 multivitamin tablet Take 1 tablet by mouth once daily. peg 3350-Electrolytes (GOLYTELY) 236-22.74-6.74 -5.86 gram suspension Refer to printed prep instructions from your provider. iv contrast (will be provided with radiology test) CT ABD/PEL -Inject, intravenously, once for 1 dose.No IV access, insert saline lock prior to the beginning of sedation, infusion, injection of imaging exam. Discontinue saline lock post exam. If Pt. has a central line or IVAD, may access for administration according to line specific nursing protocol. Once exam is complete flush line and de-accessaccording to line specific nursing protocol in the CT contrast administration guidelines link. enteric contrast (will be provided with radiology test) For CT ABD/PEL W IVCON Routine order Administer, As Directed One Time Only, via Oral, Rectal, both Oral and Rectal, Enteric Tube, Stoma or Indwelling Catheter, Enteric Contrast as designated per enteric contrast guidelines No current facility-administered medications for this visit. ALLERGIES: Patient has no known allergies. PERSONAL HISTORY: SOCIAL HISTORY Social History Tobacco Use Smoking status: Never Smoker Smokeless tobacco: Never Used Vaping Use Vaping Use: Never used Substance Use Topics Alcohol use: Never Drug use: Never FAMILY HISTORY: FAMILY HISTORY FAMILY HISTORY Problem Relation Age of Onset Dementia Mother Diabetes Father REVIEW OF SYMPTOMS: The review of systems data was entered by the nurse and reviewed by me There are no exam notes on file for this visit. PHYSICAL EXAMINATION: General: The patient is 51 year old male, well nourished, well hydrated in no acute distress. The patient is oriented to time, place, and person. VITALS: Blood pressure 112/80, pulse 98, resp. rate 20, height 185.4 cm (6' 1), weight 103.5 kg (228 lb 3.2 oz), SpO2 93 %. Body mass index is 30.11 kg/m . HEENT: Normal cephalic, ataumatic, pupils are equally round, sclera are anicteric, mucous membranesare moist, oropharynx is clear. Neck has no masses, asymmetry or lymphadenopathy. Thyroid is unremarkable. Respiratory: Clear to auscultation and percussion. Normal respiratory excursion and pattern. Cardiac: Examination is regular rate and rhythm. Abdominal exam: Soft, nontender, with no palpable masses lower abdominal. Clinically hepatosplenomegaly versus a supraumbilical mass. No palpable hernias. Rectal exam: exam deferred Extremities: no clubbing, cyanosis or edema. No adenopathy. Other: LABORATORY VALUES: As Noted RADIOLOGIC STUDIES: As Noted Assessment IMPRESSION: Iron deficiency anemia without obvious source, clinically upper abdominal mass PLAN: I ordered a CT scan of the abdomen pelvis stat given this clinical finding. I plan to perform upper and lower endoscopy. We discussed the risks and benefits of the planned endoscopy. I have informed the patient that complications can occur including failure to complete the endoscopy and perforation. The patient had the opportunity to ask questions concerning the planned endoscopy. My staff has also explained the procedure to the patient in understandable terms and has given the patient printed material concerning the procedure. The patient freely consents to surgery. I plan to use golytely bowel preparation for endoscopy Diagnoses: (D64.9) Anemia, unspecified type (primary encounter diagnosis) (R19.09) Upper abdominal mass (R19.00) Intra-abdominal and pelvic swelling, mass and lump, unspecified site My findings have been communicated to Dr. Harjeet Bernard MD via shared medical record. This note will be forwarded to Dr. Harjeet Bernard MD. Return to Clinic: The patient is instructed to follow-up with me after the testing has been completed. Priscila Clarke MD documented in this encounterUniversity Hospitals Ge[facility]07-26-2022 Miscellaneous Notes* Telephone Encounter - Priscila Clarke MD - 2022 4:33 PM EDT Spoke with interventional radiology omental biopsy was performed but no significant fluid allowing paracentesis was noted. It was deemed that everything seen was more solid in character. CA 19-9 returned as normal. CEA is elevated. I spoke with Dr. Andre Parnell and the patient. I agree that the next step is upper and lower endoscopy. We will plan to use Dr. Stark's open slot in the afternoon as this is urgent.. documented in this encounterUniversity Hospitals Geaug[facility]07-26-2022 Miscellaneous Notes* Telephone Encounter - Lily Rogers - 2022 4:06 PM EDT Tried contacting pt to schedule, went to , left message for pt to return call. Lily Rogers * Telephone Encounter - Andre Parnell DO - 2022 3:[address] Clarke is referring this patient for carcinomatosis. Please schedule him to see me next at 10 AM. No labs. Let him know. Andre Parnell DO documented in this encounterUniversity Hospitals Geaug[facility] Center07-22-2022 History of Present illness Narrative* Noemí Britt, RT(R) - 04/20/2022 11:40 AM EDT Radiology Service Progress Note DATE OF SERVICE: April 20, 2022 TIME: 1:57 PM PATIENT IDENTITY VERIFICATION COMPLETED USING TWO (2) STANDARD IDENTIFIERS: Name and Date of confirmed by patient verbally. FALL SCREENING: Has the patient had 2 falls in the last year or 1 fall with injury or currently using an Ambulatory Assistive Device (Walker, Cane, Wheelchair, Crutches, etc.)? No PATIENT GENDER DATA: Male PATIENT RELEVANT IMPLANT DATA REVIEWED: Yes ALLERGIES: Reviewed and unchanged CONTRAST ALLERGY: NO. EXAM: CT -CONTRAST INDUCED NEPHROPATHY RISK FACTORS: Not applicable CREATININE: Creatinine Date Value Ref Range Status 04/19/2022 0.80 0.73 - 1.22 mg/dL Final 07/04/2021 0.92 0.73 - 1.22 mg/dL Final 10/11/2018 0.90 0.73 - 1.22 mg/dL Final Estimated Glomerular Filtration Rate Date Value Ref Range Status 04/19/2022 108 >=60 mL/min/1.73m Final Comment: Estimated Glomerular Filtration Rate (eGFR) is calculated using the 2020 CKD-EPI creatinine equation. This equation utilizes serum creatinine, sex, and age as parameters. The creatinine assay has traceable calibration to isotope dilution- mass spectrometry. Refer to KDIGO guidelines for clinical interpretation. In patients with unstable renal function, e.g. those with acute kidney injury, the eGFRmay not accurately reflect actual GFR. eGFR- Date Value Ref Range Status 07/04/2021 >60 Final P.O.C.T. RESULTS: POC done: Yes, See Lab Tab April 20, 2022 TREATMENT: N/A PERIPHERAL IV DATA: Ambulatory: A peripheral IV was started in the Left antecubital site with a Angio cath: 22 gauge. RADIOLOGY DEPARTMENT: CT; Exam(s) Completed: Abdomen/Pelvis SIGNATURE: RT Dick(R) PATIENT NAME: Dov Zepeda First DATE: April 20, 2022 TIME: 1:57 PM documented in this encounterUniversity Hospitals Geauga [facility] Center06-06-2022 Miscellaneous Notes* Telephone Encounter - Kiya Bland RN - 03/05/2022 5:18 PM EDT Spoke with patient. Given message from provider's office. Patient verbalizes understanding. Will call back for Gen Surg appointment. Kiya Bland RN * Telephone Encounter - Zhanna Martin LPN - 03/05/2022 4:53 PM EDT No answer. Left message for patient to call office and ask to speak to a nurse regarding lab results. * Telephone Encounter - Julissa Ugarte APRN.CNS - 03/05/2022 4:36 PM EDT Recommend he resume iron 325 mg OTC daily if not currently taking. Iron stores are low. Colace (docusate) 1 or 2 per day OTC if constipation noted with iron recommended. Recommend appointment with general surgery, in need further evaluation of anemia. (Consider EGD/Colonscopy). Schedule if willing Component Latest Ref Rng & Units 08/12/2021 03/02/2022 WBC 3.70 - 11.00 k/uL 6.14 6.45 RBC 4.20 - 6.00 m/uL 4.64 4.64 Hemoglobin 13.0 - 17.0 g/dL 10.8 (L) 10.3 (L) Hematocrit 39.0 - 51.0 % 36.7 (L) 35.4 (L) MCV 80.0 - 100.0 fL 79.1 (L) 76.3 (L) MCH 26.0 - 34.0 pg 23.3 (L) 22.2 (L) MCHC 30.5 - 36.0 g/dL 29.4 (L) 29.1 (L) RDW-CV 11.5 - 15.0 % 15.8 (H) 15.9 (H) Platelet Count 150 - 400 k/uL 388 394 MPV 9.0 - 12.7 fL 9.0 8.8 (L) Neut% % 69.4 74.4 Abs Neut (ANC) 1.45 - 7.50 k/uL 4.24 4.80 Lymph% % 17.9 13.2 Abs Lymph 1.00 - 4.00 k/uL 1.10 0.85 (L) Clinch% % 9.3 10.1 Abs Clinch <0.87 k/uL 0.57 0.65 Eosin% % 2.9 1.7 Abs Eosin <0.46 k/uL 0.18 0.11 Baso% % 0.5 0.3 Abs Baso <0.11 k/uL 0.03 <0.03 Immature Gran % % 0.3 IMMATURE GRANS (ABS) <0.10 k/uL <0.03 NRBC /100 WBC 0.0 Absolute nRBC <0.01 k/uL <0.01 <0.01 DTYPE Auto Nucleated Reds 0 /100 WBC 0.0 Diff Type Auto Diff Iron 41 - 186 ug/dL 20 (L) 15 (L) TIBC 232 - 386 ug/dL 207 (L) 200 (L) Transferrin Saturation 15 - 57 % 10 (L) 8 (L) Occult Blood, Stool Negative Negative Ferritin 30.3 - 565.7 ng/mL 449.0 610.0 (H) Folate >4.7 ng/mL 13.8 Vitamin B12 232 - 1,245 pg/mL >2,000 (H) documented in this encounterUniversity Hospitals Geauga [facility] Center06-03-2022 History of Present illness Narrative* Julissa Ugarte APRN.CNS - 03/02/2022 7:20 AM EDT SUBJECTIVE: There are no preventive care reminders to display for this patient. LEIGH Burrows is a 51 year old male. PMH significant for ACTIVE PROBLEM LIST Obstructive Sleep Apnea Syndrome Other Malaise and Fatigue Anxiety State, Unspecified Hypercholesteremia <130 Depressive Disorder, Not Elsewhere Classified Non Morbid Obesity Due to Excess Calories Presents for routine follow up visit today. 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 At last visit anemia noted. Negative FOBT test. Follow up labs ordered, completed 1 mo later; stable. Continues with iron now. Blood loss: none noted; notes he did have heartburn about 4 months ago now resolved. No report of GERD, abdominal pain, nausea vomiting diarrhea constipation BRBPR or black or tarry stool. Family history of anemia: none known CKD: no Creatinine Date Value Ref Range Status 07/04/2021 0.92 0.73 - 1.22 mg/dL Final 10/11/2018 0.90 0.73 - 1.22 mg/dL Final GI surgery: none Hyperlipidemia. Mr. Burrows reports doing well on current therapy His most recent lipid panels are: Cholesterol, Total (mg/dL) Date Value 10/11/2018 175 HDL Cholesterol (mg/dL) Date Value 10/11/2018 42 LDL Cholesterol (mg/dL) Date Value 10/11/2018 118 LDL Chol, [place] (mg/dL) Date Value 11/03/2011 109 09/28/2010 115 Triglyceride (mg/dL) Date Value 10/11/2018 75 Anxiety / depression: working well, no current counselor, no voiced SI/HI. AMBROSE: Got Autopap in 1999. Autopap adjustment made in pressure, recently was too high, now pressure at 6 and working better. Does not see sleep medicine doctor currently. Sublimity CLARENCE. Review of Systems Constitutional: Negative. Respiratory: Negative. Cardiovascular: Negative. Gastrointestinal: Negative. Objective BP 120/70 Pulse 76 Resp 16 Wt 105.2 kg (232 lb) BMI 30.61 kg/m Physical Exam Vitals and nursing note reviewed. Constitutional: Appearance: Normal appearance. HENT: Head: Normocephalic and atraumatic. Eyes: Conjunctiva/sclera: Conjunctivae normal. Neck: Thyroid: No thyroid mass or thyromegaly. Vascular: Normal carotid pulses. No JVD. Cardiovascular: Rate and Rhythm: Normal rate and regular rhythm. Pulses: Carotid pulses are 2+ on the right side and 2+ on the left side. Radial pulses are 2+ on the right side and 2+ on the left side. Heart sounds: Normal heart sounds. Pulmonary: Effort: Pulmonary effort is normal. Breath sounds: Normal breath sounds. Abdominal: General: Bowel sounds are normal. Palpations: Abdomen is soft. Musculoskeletal: Right lower leg: No edema. Left lower leg: No edema. Skin: General: Skin is warm and dry. Neurological: General: No focal deficit present. Mental Status: He is alert and oriented to person, place, and time. ALLERGIES No Known Allergies MEDICATIONS sertraline (ZOLOFT) 100 mg tablet Take 1.5 tablets by mouth once daily. ferrous sulfate 325 mg (65 mg iron) tablet Take 1 tablet by mouth daily with breakfast. CPAP Continue Auto PAP @ 5-20 cm of water with humidification. Mask (per patient preference) optional chin strap (if indicated) , filters, tubing, humidifier and lifetime supplies. AMBROSE G47.33 multivitamin tablet Take 1 tablet by mouth once daily. buPROPion SR (WELLBUTRIN SR) 150 mg 12 hr tablet Take 1 tablet by mouth twice daily. PAST MEDICAL HISTORY Diagnosis Date Anxiety state, unspecified Other and unspecified hyperlipidemia Other malaise and fatigue Unspecified sleep apnea Social History Tobacco Use Smoking status: Never Smoker Smokeless tobacco: Never Used Substance Use Topics Alcohol use: Not on file Drug use: Not on file Component Latest Ref Rng & Units 11/03/2011 10/11/2018 07/04/2021 08/12/2021 WBC 3.70 - 11.00 k/uL 7.08 6.14 RBC 4.20 - 6.00 m/uL 4.60 4.64 Hemoglobin 13.0 - 17.0 g/dL 10.6 (L) 10.8 (L) Hematocrit 39.0 - 51.0 % 36.7 (L) 36.7 (L) MCV 80.0 - 100.0 fL 79.8 (L) 79.1 (L) MCH 26.0 - 34.0 pG 23.0 (L) 23.3 (L) MCHC 30.5 - 36.0 g/dL 28.9 (L) 29.4 (L) RDW-CV 11.5 - 15.0 % 15.9 (H) 15.8 (H) Platelet Count 150 - 400 k/uL 418 (H) 388 MPV 9.0 - 12.7 fL 8.7 (L) 9.0 Neut% % 69.4 Abs Neut (ANC) 1.45 - 7.50 k/uL 4.24 Lymph% % 17.9 Abs Lymph 1.00 - 4.00 k/uL 1.10 Clinch% % 9.3 Abs Clinch <0.87 k/uL 0.57 Eosin% % 2.9 Abs Eosin <0.46 k/uL 0.18 Baso% % 0.5 Abs Baso <0.11 k/uL 0.03 Nucleated Reds 0 /100 WBC 0.0 Absolute nRBC <0.01 k/uL <0.01 <0.01 Diff Type Auto Diff WBC, [place] 3.7 - 11.0 k/uL 4.8 RBC, [place] 4.20 - 6.00 m/uL 4.86 Hemoglobin, [place] 13.0 - 17.0 g/dL 15.0 Hematocrit, [place] 39.0 - 51.0 % 42.6 MCV, [place] 80.0 - 100.0 fL 87.7 MCH, [place] 26.0 - 34.0 pg 30.9 MCHC, [place] 30.5 - 36.0 g/dL 35.2 RDW, [place] 11.5 - 15.0 % 12.6 Platelet Cnt, [place] 150 - 400 k/uL 206 MPV, [place] 9.0 - 12.7 fL 9.2 Neut%, [place] 39.5 - 74.0 % 59.5 Lymp%, [place] 15.9 - 47.3 % 27.9 Clinch%, [place] 0.0 - 12.0 % 11.1 Eos%, [place] 0.0 - 6.6 % 1.3 Baso%, [place] 0.0 - 1.2 % 0.2 Abs Neut, [place] 1.45 - 7.50 k/uL 2.84 Abs Lymp, [place] 1.00 - 4.00 k/uL 1.33 Abs Clinch, [place] 0.00 - 0.86 k/uL 0.53 Abs Eos, [place] 0.00 - 0.45 k/uL 0.06 Abs Baso, [place] 0.00 - 0.10 k/uL 0.01 Protein, Total 6.3 - 8.0 g/dL 7.9 7.8 Albumin 3.9 - 4.9 g/dL 4.2 3.9 Calcium 8.5 - 10.2 mg/dL 9.2 9.2 Bilirubin, Total 0.2 - 1.3 mg/dL 0.4 0.2 Alkaline Phosphatase 38 - 113 U/L 80 86 AST 14 - 40 U/L 19 13 (L) Glucose 74 - 99 mg/dL 94 74 BUN 9 - 24 mg/dL 23 23 Creatinine 0.73 - 1.22 mg/dL 0.90 0.92 Sodium 136 - 144 mmol/L 141 140 Potassium 3.7 - 5.1 mmol/L 4.3 4.4 Chloride 97 - 105 mmol/L 102 102 CO2 22 - 30 mmol/L 25 28 Anion Gap 9 - 18 mmol/L 14 10 ALT 10 - 54 U/L 17 11 eGFR- >60 >60 eGFR-All Other Races . >60 >60 Cholesterol, Total <200 mg/dL 175 Triglyceride <150 mg/dL 75 HDL Cholesterol >39 mg/dL 42 LDL Cholesterol <100 mg/dL 118 (H) Non HDL Cholesterol <130 mg/dL 133 (H) Fasting Time hrs 12 VLDL Cholesterol <30 mg/dL 15 TC:HDL Ratio <5.10 4.17 LDL:HDL Ratio <2.54 2.81 (H) Iron 41 - 186 ug/dL 20 (L) TIBC 232 - 386 ug/dL 207 (L) Transferrin Saturation 15 - 57 % 10 (L) Hemoglobin A1C 4.3 - 5.6 % 5.2 5.2 Estimated Average Glucose mg/dL 103 103 TSH 0.400 - 5.500 uU/mL 1.600 Occult Blood, Stool Negative Negative Ferritin 30.3 - 565.7 ng/mL 449.0 Folate >4.7 ng/mL 13.8 Vitamin B12 232 - 1,245 pg/mL >2,000 (H) ASSESSMENT/PLAN: 1. Obstructive sleep apnea syndrome - ICD9: 327.23, ICD10: G47.33 (primary diagnosis) Using Autopap, seems to be cgoing well now. No current sleep medicine provider 2. Special screening examination for viral disease - ICD9: V73.99, ICD10: Z11.59 declined 3. Screening for HIV (human immunodeficiency virus) - ICD9: V73.89, ICD10: Z11.4 declined 4. Hypercholesteremia <130 - ICD9: 272.0, ICD10: E78.00 Recommend a plant based diet such as Mediterranean diet with plenty of vegetables, fruits,whole grains, fish, chicken, turkey or plant proteins and routine exercise such as walking - LIPID PANEL BASIC - COMP METABOLIC PANEL 5. Non morbid obesity due to excess calories - ICD9: 278.00, ICD10: E66.09 Has lost weight recently. Endorse portion control and routine exercise such as walking 6. Iron deficiency anemia, unspecified iron deficiency anemia type - ICD9: 280.9, ICD10: D50.9 Continues with iron supplementation. Notes did have severe heartburn about 4 months ago, now resolved. Check labs today - CBC + DIFF - IRON + TIBC - FERRITIN BLD - CBC + DIFF 7. Recurrent major depressive disorder, in partial remission (HCC) - ICD9: 296.35, ICD10: F33.41 Stable, currently controlled, continue to monitor. Refer to counselor if so desires. - COMP METABOLIC PANEL - CBC + DIFF 6 mo follow up with labs MD Julissa Montemayor APRN.[employer] Medical Decision Making: Problems: Moderate: 2+ stable chronic illnesses Data: Unique test(s) ordered: 3+ Risk: Moderate: Drug management Medical Decision Making Level: 4 - Moderate [facility] Miscellaneous Notes* Telephone Encounter - Babita Martinez LPN - 12/21/2021 7:45 AM EDT Patient has been identified by name and date of : Yes Patient phones for refill(s): Pending Prescriptions Disp Refills BUPROPION HCL SR 150 MG TABLET,12 HR SUSTAINED-RELEASE 180 tablet 3 Sig: Take 1 tablet by mouth twice daily. SOFYA: No SERTRALINE 100 MG TABLET 135 tablet 3 Sig: Take 1.5 tablets by mouth once daily. SOFYA: No Date of last office visit in primary care: 02/06/21 next apt 01/22/22 Last 2 Encounter Wt Readings: Date: Wt: 07/04/2021 112.9 kg (249 lb) 04/27/2019 122.9 kg (271 lb) Previous labs/tests for medication: Not applicable Please advise. Thank you. Babita Martinez LPN * Telephone Encounter - Nereida CAMPBELL - 12/20/2021 5:48 PM EDT Patient has been identified by name and date of : Yes Last office visit in this department: 07/04/2021 RX INSTRUCTIONS: Patient aware RX will be sent to pharmacy. No need to notify patient. Patient phones requesting refills as follows: Pending Prescriptions Disp Refills BUPROPION HCL SR 150 MG TABLET,12 HR SUSTAINED-RELEASE 180 tablet 3 Sig: Take 1 tablet by mouth twice daily. SOFYA: No SERTRALINE 100 MG TABLET 135 tablet 3 Sig: Take 1.5 tablets by mouth once daily. SOFYA: No Please review and advise. Nereida CAMPBELL documented [facility] History of Past illness Narrative* Problem Noted Date Resolved Date Other adjustment reaction wi th predominant disturbance of other emotions 01/17/2011 01/25/2015 Non-healing surgical wound 07/06/200901/25 Cellulitis and abscess of unspecified site 07/0401/25/2015 Abnormal weight gain 02/18/2006 01/25/2015 OVERWEIGHT 02/18/2006 01/25/2015 documented as of this encounter (statuses as of 12/21/2021) [address]20-2011 History of Past illness Narrative* Problem Noted Date Resolved Date Other adjustment reaction wi th predominant disturbance of other emotions 01/17/2011 01/25/2015 Non-healing surgical wound 07/06/200901/25 Cellulitis and abscess of unspecified site 07/0401/25/2015 Abnormal weight gain 02/18/2006 01/25/2015 OVERWEIGHT 02/18/2006 01/25/2015 documented as of this encounter (statuses as of 03/02/2022) [address]20-2011 History of Past illness Narrative* Problem Noted Date Resolved Date Other adjustment reaction wi th predominant disturbance of other emotions 01/17/2011 01/25/2015 Non-healing surgical wound 07/06/200901/25 Cellulitis and abscess of unspecified site 07/0401/25/2015 Abnormal weight gain 02/18/2006 01/25/2015 OVERWEIGHT 02/18/2006 01/25/2015 documented as of this encounter (statuses as of 03/05/2022) [address]20-2011 History of Past illness Narrative* Problem Noted Date Resolved Date Other adjustment reaction wi th predominant disturbance of other emotions 01/17/2011 01/25/2015 Non-healing surgical wound 07/06/200901/25 Cellulitis and abscess of unspecified site 07/0401/25/2015 Abnormal weight gain 02/18/2006 01/25/2015 OVERWEIGHT 02/18/2006 01/25/2015 documented as of this encounter (statuses as of 04/21/2022) [address]20-2011 History of Past illness Narrative* Problem Noted Date Resolved Date Other adjustment reaction wi th predominant disturbance of other emotions 01/17/2011 01/25/2015 Non-healing surgical wound 07/06/200901/25 Cellulitis and abscess of unspecified site 07/0401/25/2015 Abnormal weight gain 02/18/2006 01/25/2015 OVERWEIGHT 02/18/2006 01/25/2015 documented as of this encounter (statuses as of 04/21/2022) [address]20-2011 History of Past illness Narrative* Problem Noted Date Resolved Date Other adjustment reaction wi th predominant disturbance of other emotions 01/17/2011 01/25/2015 Non-healing surgical wound 07/06/200901/25 Cellulitis and abscess of unspecified site 07/0401/25/2015 Abnormal weight gain 02/18/2006 01/25/2015 OVERWEIGHT 02/18/2006 01/25/2015 documented as of this encounter (statuses as of 04/23/2022) [address]20-2011 History of Past illness Narrative* Problem Noted Date Resolved Date Other adjustment reaction wi th predominant disturbance of other emotions 01/17/2011 01/25/2015 Non-healing surgical wound 07/06/200901/25 Cellulitis and abscess of unspecified site 07/0401/25/2015 Abnormal weight gain 02/18/2006 01/25/2015 OVERWEIGHT 02/18/2006 01/25/2015 documented as of this encounter (statuses as of 2022) [place] [id number] History of Past illness Narrative* Problem Noted Date Resolved Date Other adjustment reaction wi th predominant disturbance of other emotions 01/17/2011 01/25/2015 Non-healing surgical wound 07/06/200901/25 Cellulitis and abscess of unspecified site 07/0401/25/2015 Abnormal weight gain 02/18/2006 01/25/2015 OVERWEIGHT 02/18/2006 01/25/2015 documented as of this encounter (statuses as of 04/27/2022) [place] [address]20-2011 History of Past illness Narrative* Problem Noted Date Resolved Date Other adjustment reaction wi th predominant disturbance of other emotions 01/17/2011 01/25/2015 Non-healing surgical wound 07/06/200901/25 Cellulitis and abscess of unspecified site 07/0401/25/2015 Abnormal weight gain 02/18/2006 01/25/2015 OVERWEIGHT 02/18/2006 01/25/2015 documented as of this encounter (statuses as of 04/30/2022) [facility] History of Past illness Narrative* Problem Noted Date Resolved Date Other adjustment reaction wi th predominant disturbance of other emotions 01/17/2011 01/25/2015 Non-healing surgical wound 07/06/200901/25 Cellulitis and abscess of unspecified site 07/0401/25/2015 Abnormal weight gain 02/18/2006 01/25/2015 OVERWEIGHT 02/18/2006 01/25/2015 documented as of this encounter (statuses as of 05/03/2022) [address]20-2011 History of Past illness Narrative* Problem Noted Date Resolved Date Other adjustment reaction wi th predominant disturbance of other emotions 01/17/2011 01/25/2015 Non-healing surgical wound 07/06/200901/25 Cellulitis and abscess of unspecified site 07/0401/25/2015 Abnormal weight gain 02/18/2006 01/25/2015 OVERWEIGHT 02/18/2006 01/25/2015 documented as of this encounter (statuses as of 05/03/2022) [address]20-2011 History of Past illness Narrative* Problem Noted Date Resolved Date Other adjustment reaction wi th predominant disturbance of other emotions 01/17/2011 01/25/2015 Non-healing surgical wound 07/06/200901/25 Cellulitis and abscess of unspecified site 07/0401/25/2015 Abnormal weight gain 02/18/2006 01/25/2015 OVERWEIGHT 02/18/2006 01/25/2015 documented as of this encounter (statuses as of 05/11/2022) [address]20-2011 History of Past illness Narrative* Problem Noted Date Resolved Date Other adjustment reaction wi th predominant disturbance of other emotions 01/17/2011 01/25/2015 Non-healing surgical wound 07/06/200901/25 Cellulitis and abscess of unspecified site 07/0401/25/2015 Abnormal weight gain 02/18/2006 01/25/2015 OVERWEIGHT 02/18/2006 01/25/2015 documented as of this encounter (statuses as of 05/11/2022) [address]20-2011 History of Past illness Narrative* Problem Noted Date Resolved Date Other adjustment reaction wi th predominant disturbance of other emotions 01/17/2011 01/25/2015 Non-healing surgical wound 07/06/200901/25 Cellulitis and abscess of unspecified site 07/0401/25/2015 Abnormal weight gain 02/18/2006 01/25/2015 OVERWEIGHT 02/18/2006 01/25/2015 documented as of this encounter (statuses as of 05/30/2022) [facility] Diagnosis Recurrent major depressive disorder, in partial remission (HCC) documented in this encounter [facility]* Diagnosis Obstructive sleep apnea syndrome- Primary Obstructive sleep apnea (adult) (pediatric) Special screening examination for viral disease Special screening examination for unspecified viral disease Screening for HIV (human immunodeficiency virus) Special screening examination for other specified viral diseases Hypercholesteremia <130 Pure hypercholesterolemia Non morbid obesity due to excess calories Iron deficiency anemia, unspecified iron deficiency anemia type Recurrent major depressive disorder, in partial remission (HCC) [facility] Diagnosis Iron deficiency anemia, unspecified iron deficiency anemia type- Primary documented in this encounter [facility]* Diagnosis Intra-abdominal and pelvic swelling, mass and lump, unspecified site documented in this encounter [facility]* Diagnosis Omental mass- Primary Other specified disorder of peritoneum Other ascites Abdominal mass, unspecified abdominal location [facility]* Diagnosis Anemia, unspecified type Upper abdominal mass Abdominal pain, other specified site [facility]* Diagnosis Upper abdominal mass- Primary Abdominal pain, other specified site [facility] Mass of appendix- Primary Other and unspecified diseases of appendix Microcytic anemia Iron deficiency anemia, unspecified [facility]* Diagnosis Encounter for preoperative assessment- Primary Anemia, unspecified type Obstructive sleep apnea syndrome Obstructive sleep apnea (adult) (pediatric) Hypercholesteremia <130 Pure hypercholesterolemia Low grade mucinous neoplasm of appendix Neoplasm of unspecified nature of digestive system [facility]* Diagnosis 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 Neoplasm of unspecified nature of digestive system Low grade mucinous neoplasm of appendix Neoplasm of unspecified nature of digestive system documented in this encounter [facility]* Diagnosis 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 Neoplasm of unspecified nature of digestive system Non morbid obesity due to excess calories Obstructive sleep apnea syndrome Obstructive sleep apnea (adult) (pediatric) Mass of appendix Other and unspecified diseases of appendix [facility] Bile leak- Primary Unspecified disorder of biliary tract [facility]* Diagnosis Attention to ileostomy (HCC)- Primary Attention to ileostomy [facility] this encounter [facility]* Diagnosis Postoperative abscess Other postoperative infection [facility] Diagnosis Intra-abdominal abscess (HCC)- Primary Peritoneal abscess [facility] Diagnosis Postoperative abscess- Primary Other postoperative infection Low grade mucinous neoplasm of appendix Neoplasm of unspecified nature of digestive system Mass of appendix Other and unspecified diseases of appendix [facility] Diagnosis Bile leak Unspecified disorder of biliary tract [facility] noteNo assessment information availableWProMed[facility] Work Phone: [facility]* Diagnosis Encounter for attention to ileostomy (HCC)- Primary Attention to ileostomy documented in this encounter [facility] note* Diagnosis Intra-abdominal abscess (HCC)- Primary Peritoneal abscess Imelda infection Candidiasis of unspecified site Enterococcal infection Streptococcus infection in conditions classified elsewhere and of unspecified site, group D Infection due to Enterobacter cloacae Infection due to other gram-negative organisms in conditions classified elsewhere and of unspecified site documented in this encounter [facility] note* Diagnosis Portal vein thrombosis- Primary Anticoagulation management encounter Encounter for therapeutic drug monitoring 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 documented in this encounter [facility] note* Diagnosis Attention to ileostomy (HCC)- Primary Attention to ileostomy Postoperative abscess Other postoperative infection Low grade mucinous neoplasm of appendix Neoplasm of unspecified nature of digestive system Mass of appendix Other and unspecified diseases of appendix Malnutrition of mild degree (HCC) Malnutrition of mild degree documented in this encounter [facility] note* Diagnosis 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 Neoplasm of unspecified nature of digestive system Attention to ileostomy (HCC) Attention to ileostomy documented in this encounter [facility] note* Diagnosis Low grade mucinous neoplasm of appendix Neoplasm of unspecified nature of digestive system documented in this encounter [facility] note* Diagnosis Attention to ileostomy (HCC)- Primary Attention to ileostomy 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 Neoplasm of unspecified nature of digestive system Mass of appendix Other and unspecified diseases of appendix [facility]* Diagnosis Gastric leak- Primary Other digestive system complications 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 documented in this encounter [facility] note* Diagnosis 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 documented in this encounter [facility]* Diagnosis 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 documented in this encounter [facility]* Diagnosis Iron deficiency anemia, unspecified iron deficiency anemia type- Primary Recurrent major depressive disorder, in partial remission (HCC) AMBROSE on APAP Obstructive sleep apnea (adult) (pediatric) 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) Ileostomy status Encounter for long-term current use of medication documented in this encounter [facility]* Diagnosis Mass of appendix- Primary Other and unspecified diseases of appendix Attention to ileostomy ([facility]) Attention to ileostomy 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 Neoplasm of unspecified nature of digestive system Encounter for attention to ileostomy ([facility]) Attention to ileostomy documented in this encounter [facility]* Diagnosis 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 Neoplasm of unspecified nature of digestive system documented in this encounter [facility]* Diagnosis 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 Neoplasm of unspecified nature of digestive system documented in this encounter [facility]* Diagnosis Portal vein thrombosis- Primary Anticoagulation management encounter Encounter for therapeutic drug monitoring 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 documented in this encounter [facility]* Diagnosis Intra-abdominal and pelvic swelling, mass and lump, unspecified site- Primary Low grade mucinous neoplasm of appendix Neoplasm of unspecified nature of digestive system documented in this encounter [facility]* Diagnosis Recurrent major depressive disorder, in partial remission (HCC) documented in this encounter [facility]* Diagnosis Recurrent major depressive disorder, in partial remission (HCC)- Primary AMBROSE on CPAP Obstructive sleep apnea (adult) (pediatric) 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) Ileostomy status documented in this encounter [facility]* Diagnosis 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)- Primary Ileostomy status documented in this encounter [facility]* Diagnosis Intra-abdominal and pelvic swelling, mass and lump, unspecified site Low grade mucinous neoplasm of appendix Neoplasm of unspecified nature of digestive system documented in this encounter [facility]* Diagnosis Recurrent major depressive disorder, in partial remission (HCC)- Primary documented in this encounter [facility]* Diagnosis 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)- Primary Ileostomy status documented in this encounter [facility]* Diagnosis Recurrent major depressive disorder, in partial remission (HCC) documented in this encounter [facility]* Diagnosis Recurrent major depressive disorder, in partial remission (HCC)- Primary 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) Ileostomy status AMBROSE on CPAP Obstructive sleep apnea (adult) (pediatric) Hypercholesteremia <130 Pure hypercholesterolemia Elevated glucose Other abnormal glucose Encounter for long-term current use of medication documented in this encounter [facility] note* Diagnosis Low grade mucinous neoplasm of appendix Neoplasm of unspecified nature of digestive system Acute post-operative pain [G89.18 (ICD-10-CM)] Post-op pain Other acute postoperative pain 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 Acute postoperative respiratory insufficiency Other pulmonary insufficiency, not elsewhere classified, following trauma and surgery Acute posthemorrhagic anemia Bile duct leak Other specified disorders of biliary tract Feeding difficulties Feeding difficulties and mismanagement Malnutrition of mild degree (HCC) Malnutrition of mild degree On total parenteral nutrition (TPN) Other specified conditions influencing health status Ileus (HCC) Paralytic ileus Intra-abdominal abscess (HCC) Peritoneal abscess Enterococcal infection Streptococcus infection in conditions classified elsewhere and of unspecified site, group D Imelda glabrata infection Candidiasis of unspecified site Hypovolemia Acute post-hemorrhagic anemia Acute posthemorrhagic anemia Acute post-operative pain Acute postoperative respiratory insufficiency Other pulmonary insufficiency, not elsewhere classified, following trauma and surgery Postoperative shock Postoperative shock, unspecified Metabolic acidosis Acidosis 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) Ileostomy status Low grade mucinous neoplasm of appendix Neoplasm of unspecified nature of digestive system Malnutrition of mild degree (HCC) Malnutrition of mild degree Portal vein thrombosis Pancreatic duct leak Other specified disease of pancreas Hypokalemia Hypopotassemia Encounter for preoperative assessment- Primary Anemia, unspecified type Obstructive sleep apnea syndrome Obstructive sleep apnea (adult) (pediatric) Hypercholesteremia <130 Pure hypercholesterolemia Low grade mucinous neoplasm of appendix Neoplasm of unspecified nature of digestive system documented in this encounter [facility]* Diagnosis Low grade mucinous neoplasm of appendix Neoplasm of unspecified nature of digestive system Acute post-operative pain [G89.18 (ICD-10-CM)] Post-op pain Other acute postoperative pain 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 Acute postoperative respiratory insufficiency Other pulmonary insufficiency, not elsewhere classified, following trauma and surgery Acute posthemorrhagic anemia Bile duct leak Other specified disorders of biliary tract Feeding difficulties Feeding difficulties and mismanagement Malnutrition of mild degree (HCC) Malnutrition of mild degree On total parenteral nutrition (TPN) Other specified conditions influencing health status Ileus (HCC) Paralytic ileus Intra-abdominal abscess (HCC) Peritoneal abscess Enterococcal infection Streptococcus infection in conditions classified elsewhere and of unspecified site, group D Imelda glabrata infection Candidiasis of unspecified site Hypovolemia Acute post-hemorrhagic anemia Acute posthemorrhagic anemia Acute post-operative pain Acute postoperative respiratory insufficiency Other pulmonary insufficiency, not elsewhere classified, following trauma and surgery Postoperative shock Postoperative shock, unspecified Metabolic acidosis Acidosis 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) Ileostomy status Low grade mucinous neoplasm of appendix Neoplasm of unspecified nature of digestive system Malnutrition of mild degree (HCC) Malnutrition of mild degree Portal vein thrombosis Pancreatic duct leak Other specified disease of pancreas Hypokalemia Hypopotassemia Encounter for preoperative assessment- Primary Anemia, unspecified type Obstructive sleep apnea syndrome Obstructive sleep apnea (adult) (pediatric) Hypercholesteremia <130 Pure hypercholesterolemia Attention to ileostomy (HCC)- Primary Attention to ileostomy Fitting and adjustment of gastrointestinal appliance and device Fitting and adjustment of other gastrointestinal appliance and device [facility] this [facility] Diagnosis Low grade mucinous neoplasm of appendix Neoplasm of unspecified nature of digestive system Acute post-operative pain [G89.18 (ICD-10-CM)] Post-op pain Other acute postoperative pain 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 Acute postoperative respiratory insufficiency Other pulmonary insufficiency, not elsewhere classified, following trauma and surgery Acute posthemorrhagic anemia Bile duct leak Other specified disorders of biliary tract Feeding difficulties Feeding difficulties and mismanagement Malnutrition of mild degree (HCC) Malnutrition of mild degree On total parenteral nutrition (TPN) Other specified conditions influencing health status Ileus (HCC) Paralytic ileus Intra-abdominal abscess (HCC) Peritoneal abscess Enterococcal infection Streptococcus infection in conditions classified elsewhere and of unspecified site, group D Imelda glabrata infection Candidiasis of unspecified site Hypovolemia Acute post-hemorrhagic anemia Acute posthemorrhagic anemia Acute post-operative pain Acute postoperative respiratory insufficiency Other pulmonary insufficiency, not elsewhere classified, following trauma and surgery Postoperative shock Postoperative shock, unspecified Metabolic acidosis Acidosis 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) Ileostomy status Low grade mucinous neoplasm of appendix Neoplasm of unspecified nature of digestive system Malnutrition of mild degree (HCC) Malnutrition of mild degree Portal vein thrombosis Pancreatic duct leak Other specified disease of pancreas Hypokalemia Hypopotassemia Encounter for preoperative assessment- Primary Anemia, unspecified type Obstructive sleep apnea syndrome Obstructive sleep apnea (adult) (pediatric) Hypercholesteremia <130 Pure hypercholesterolemia 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 Neoplasm of unspecified nature of digestive system 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) Ileostomy status [facility] Diagnosis Low grade mucinous neoplasm of appendix Neoplasm of unspecified nature of digestive system Acute post-operative pain [G89.18 (ICD-10-CM)] Post-op pain Other acute postoperative pain 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 Acute postoperative respiratory insufficiency Other pulmonary insufficiency, not elsewhere classified, following trauma and surgery Acute posthemorrhagic anemia Bile duct leak Other specified disorders of biliary tract Feeding difficulties Feeding difficulties and mismanagement Malnutrition of mild degree (HCC) Malnutrition of mild degree On total parenteral nutrition (TPN) Other specified conditions influencing health status Ileus (HCC) Paralytic ileus Intra-abdominal abscess (HCC) Peritoneal abscess Enterococcal infection Streptococcus infection in conditions classified elsewhere and of unspecified site, group D Imelda glabrata infection Candidiasis of unspecified site Hypovolemia Acute post-hemorrhagic anemia Acute posthemorrhagic anemia Acute post-operative pain Acute postoperative respiratory insufficiency Other pulmonary insufficiency, not elsewhere classified, following trauma and surgery Postoperative shock Postoperative shock, unspecified Metabolic acidosis Acidosis 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) Ileostomy status Low grade mucinous neoplasm of appendix Neoplasm of unspecified nature of digestive system Malnutrition of mild degree (HCC) Malnutrition of mild degree Portal vein thrombosis Pancreatic duct leak Other specified disease of pancreas Hypokalemia Hypopotassemia Encounter for preoperative assessment- Primary Anemia, unspecified type Obstructive sleep apnea syndrome Obstructive sleep apnea (adult) (pediatric) Hypercholesteremia <130 Pure hypercholesterolemia 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 Neoplasm of unspecified nature of digestive system 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) Ileostomy status Mass of appendix Other and unspecified diseases of appendix [facility] Diagnosis Low grade mucinous neoplasm of appendix Neoplasm of unspecified nature of digestive system Acute post-operative pain [G89.18 (ICD-10-CM)] Post-op pain Other acute postoperative pain 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 Acute postoperative respiratory insufficiency Other pulmonary insufficiency, not elsewhere classified, following trauma and surgery Acute posthemorrhagic anemia Bile duct leak Other specified disorders of biliary tract Feeding difficulties Feeding difficulties and mismanagement Malnutrition of mild degree (HCC) Malnutrition of mild degree On total parenteral nutrition (TPN) Other specified conditions influencing health status Ileus (HCC) Paralytic ileus Intra-abdominal abscess (HCC) Peritoneal abscess Enterococcal infection Streptococcus infection in conditions classified elsewhere and of unspecified site, group D Imelda glabrata infection Candidiasis of unspecified site Hypovolemia Acute post-hemorrhagic anemia Acute posthemorrhagic anemia Acute post-operative pain Acute postoperative respiratory insufficiency Other pulmonary insufficiency, not elsewhere classified, following trauma and surgery Postoperative shock Postoperative shock, unspecified Metabolic acidosis Acidosis 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) Ileostomy status Low grade mucinous neoplasm of appendix Neoplasm of unspecified nature of digestive system Malnutrition of mild degree (HCC) Malnutrition of mild degree Portal vein thrombosis Pancreatic duct leak Other specified disease of pancreas Hypokalemia Hypopotassemia Encounter for preoperative assessment- Primary Anemia, unspecified type Obstructive sleep apnea syndrome Obstructive sleep apnea (adult) (pediatric) Hypercholesteremia <130 Pure hypercholesterolemia Nausea vomiting and diarrhea- Primary Diarrhea Hypokalemia Hypopotassemia [place] (acute kidney injury) (HCC) Acute kidney failure, unspecified Special screening examination for viral disease Special screening examination for unspecified viral disease Screening for HIV (human immunodeficiency virus) Special screening examination for other specified viral diseases [facility] Diagnosis Low grade mucinous neoplasm of appendix Neoplasm of unspecified nature of digestive system Acute post-operative pain [G89.18 (ICD-10-CM)] Post-op pain Other acute postoperative pain 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 Acute postoperative respiratory insufficiency Other pulmonary insufficiency, not elsewhere classified, following trauma and surgery Acute posthemorrhagic anemia Bile duct leak Other specified disorders of biliary tract Feeding difficulties Feeding difficulties and mismanagement Malnutrition of mild degree (HCC) Malnutrition of mild degree On total parenteral nutrition (TPN) Other specified conditions influencing health status Ileus (HCC) Paralytic ileus Intra-abdominal abscess (HCC) Peritoneal abscess Enterococcal infection Streptococcus infection in conditions classified elsewhere and of unspecified site, group D Imelda glabrata infection Candidiasis of unspecified site Hypovolemia Acute post-hemorrhagic anemia Acute posthemorrhagic anemia Acute post-operative pain Acute postoperative respiratory insufficiency Other pulmonary insufficiency, not elsewhere classified, following trauma and surgery Postoperative shock Postoperative shock, unspecified Metabolic acidosis Acidosis 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) Ileostomy status Low grade mucinous neoplasm of appendix Neoplasm of unspecified nature of digestive system Malnutrition of mild degree (HCC) Malnutrition of mild degree Portal vein thrombosis Pancreatic duct leak Other specified disease of pancreas Hypokalemia Hypopotassemia Encounter for preoperative assessment- Primary Anemia, unspecified type Obstructive sleep apnea syndrome Obstructive sleep apnea (adult) (pediatric) Hypercholesteremia <130 Pure hypercholesterolemia Hypokalemia- Primary Hypopotassemia [place] (acute kidney injury) (HCC) Acute kidney failure, unspecified Nausea vomiting and diarrhea Diarrhea [facility] Diagnosis Low grade mucinous neoplasm of appendix Neoplasm of unspecified nature of digestive system Acute post-operative pain [G89.18 (ICD-10-CM)] Post-op pain Other acute postoperative pain 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 Acute postoperative respiratory insufficiency Other pulmonary insufficiency, not elsewhere classified, following trauma and surgery Acute posthemorrhagic anemia Bile duct leak Other specified disorders of biliary tract Feeding difficulties Feeding difficulties and mismanagement Malnutrition of mild degree (HCC) Malnutrition of mild degree On total parenteral nutrition (TPN) Other specified conditions influencing health status Ileus (HCC) Paralytic ileus Intra-abdominal abscess (HCC) Peritoneal abscess Enterococcal infection Streptococcus infection in conditions classified elsewhere and of unspecified site, group D Imelda glabrata infection Candidiasis of unspecified site Hypovolemia Acute post-hemorrhagic anemia Acute posthemorrhagic anemia Acute post-operative pain Acute postoperative respiratory insufficiency Other pulmonary insufficiency, not elsewhere classified, following trauma and surgery Postoperative shock Postoperative shock, unspecified Metabolic acidosis Acidosis 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) Ileostomy status Low grade mucinous neoplasm of appendix Neoplasm of unspecified nature of digestive system Malnutrition of mild degree (HCC) Malnutrition of mild degree Portal vein thrombosis Pancreatic duct leak Other specified disease of pancreas Hypokalemia Hypopotassemia Encounter for preoperative assessment- Primary Anemia, unspecified type Obstructive sleep apnea syndrome Obstructive sleep apnea (adult) (pediatric) Hypercholesteremia <130 Pure hypercholesterolemia Hypokalemia- Primary Hypopotassemia [place] (acute kidney injury) (HCC) Acute kidney failure, unspecified documented [facility] Diagnosis Low grade mucinous neoplasm of appendix Neoplasm of unspecified nature of digestive system Acute post-operative pain [G89.18 (ICD-10-CM)] Post-op pain Other acute postoperative pain 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 Acute postoperative respiratory insufficiency Other pulmonary insufficiency, not elsewhere classified, following trauma and surgery Acute posthemorrhagic anemia Bile duct leak Other specified disorders of biliary tract Feeding difficulties Feeding difficulties and mismanagement Malnutrition of mild degree (HCC) Malnutrition of mild degree On total parenteral nutrition (TPN) Other specified conditions influencing health status Ileus (HCC) Paralytic ileus Intra-abdominal abscess (HCC) Peritoneal abscess Enterococcal infection Streptococcus infection in conditions classified elsewhere and of unspecified site, group D Imelda glabrata infection Candidiasis of unspecified site Hypovolemia Acute post-hemorrhagic anemia Acute posthemorrhagic anemia Acute post-operative pain Acute postoperative respiratory insufficiency Other pulmonary insufficiency, not elsewhere classified, following trauma and surgery Postoperative shock Postoperative shock, unspecified Metabolic acidosis Acidosis 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) Ileostomy status Low grade mucinous neoplasm of appendix Neoplasm of unspecified nature of digestive system Malnutrition of mild degree (HCC) Malnutrition of mild degree Portal vein thrombosis Pancreatic duct leak Other specified disease of pancreas Hypokalemia Hypopotassemia Encounter for preoperative assessment- Primary Anemia, unspecified type Obstructive sleep apnea syndrome Obstructive sleep apnea (adult) (pediatric) Hypercholesteremia <130 Pure hypercholesterolemia [place] (acute kidney injury) ([facility])- Primary Acute kidney failure, unspecified Acute renal insufficiency Unspecified disorder of kidney and ureter Excessive gas Flatulence, eructation, and gas pain 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) Ileostomy status Recurrent major depressive disorder, in partial remission ([facility]) [facility] Diagnosis Low grade mucinous neoplasm of appendix Neoplasm of unspecified nature of digestive system Acute post-operative pain [G89.18 (ICD-10-CM)] Post-op pain Other acute postoperative pain 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 Acute postoperative respiratory insufficiency Other pulmonary insufficiency, not elsewhere classified, following trauma and surgery Acute posthemorrhagic anemia Bile duct leak Other specified disorders of biliary tract Feeding difficulties Feeding difficulties and mismanagement Malnutrition of mild degree (HCC) Malnutrition of mild degree On total parenteral nutrition (TPN) Other specified conditions influencing health status Ileus (HCC) Paralytic ileus Intra-abdominal abscess (HCC) Peritoneal abscess Enterococcal infection Streptococcus infection in conditions classified elsewhere and of unspecified site, group D Imelda glabrata infection Candidiasis of unspecified site Hypovolemia Acute post-hemorrhagic anemia Acute posthemorrhagic anemia Acute post-operative pain Acute postoperative respiratory insufficiency Other pulmonary insufficiency, not elsewhere classified, following trauma and surgery Postoperative shock Postoperative shock, unspecified Metabolic acidosis Acidosis 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) Ileostomy status Low grade mucinous neoplasm of appendix Neoplasm of unspecified nature of digestive system Malnutrition of mild degree (HCC) Malnutrition of mild degree Portal vein thrombosis Pancreatic duct leak (HCC) Other specified disease of pancreas Hypokalemia Hypopotassemia Encounter for preoperative assessment- Primary Anemia, unspecified type Obstructive sleep apnea syndrome Obstructive sleep apnea (adult) (pediatric) Hypercholesteremia <130 Pure hypercholesterolemia 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 Neoplasm of unspecified nature of digestive system 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 Discharge instructions Additional Instructions Follow-up with your surgeon tomorrow as planned. Return back to the ED if symptoms change or worsen.[facility] Work Phone: Reason for referral (narrative)* Outpatient Procedure (Routine) - Closed Specialty Diagnoses / Procedures Referred By Ruddy ceja [facility] Diagnoses Anemia, unspecified type Upper abdominal mass Procedures COLONOSCOPY DIAGNOSTIC COLONOSCOPY FLX DX W/COLLJ SPEC WHEN PFRMD Priscila Clarke MD [address] [place] [address] [facility] [address] [place] [address] Referral ID Status Reason Start Date Expiration Date V isits Requested Visits Authorized [id number] Closed Auto-Generate d Referral [facility] Obtained 04/19/2022 09/29/2022 1 1 * Outpatient Procedure (Routine) - Closed Specialty Diagnoses / Procedures Referred By Ruddy ceja Ref[facility] Diagnoses Anemia, unspecified type Upper abdominal mass Procedures EGD DIAGNOSTIC ESOPHAGOGASTRODUODENOSCOPY TRANSORAL DIAGNOSTIC Priscila Clarke MD [address] [place] [address] [facility] [address] [place] [address] Referral ID Status Reason Start Date Expiration Date V isits Requested Visits Authorized [id number] Closed Auto-Generate d Referral 04/19/2022 09/29/2022 1 1 [facility] for referral (narrative)* Outpatient Procedure (Routine) - Pending Review Specialty Diagnoses / Procedures Referred By Contac t Referred To Contact [facility] Diagnoses Bile leak Procedures ERCP ERCP DX COLLECTION SPECIMEN BRUSHING/WASHING Avni Williamson MD [address] [place] [address] [facility] [address] [place] [address] Referral ID Status Reason Start Date Expiration Date Visits Requested Visits Authorized [id number] Pending Review Auto-Generat ed Referral 06/07/2023 1 1 [facility] for referral (narrative)* Diagnostic Procedure Only (Routine) - Closed Specialty Diagnoses / Procedures Referred By Contac t Referred To Contact XR IMAGING Diagnoses Postoperative abscess Procedures XR ABSCESS DRAIN INJECTION Nicolasa Denise DO [address] [place] [address] Xr Imaging Referral ID Status Reason Start Date Expiration Date V isits Requested Visits Authorized [id number] Closed Auto-Generate d Referral 07/09/2022 08/08/2023 1 1 [facility] for referral (narrative)* Diagnostic Procedure Only (Routine) - Closed Specialty Diagnoses / Procedures Referred By Contac t Referred To Contact XR IMAGING Diagnoses Postoperative abscess Procedures XR ABSCESS DRAIN INJECTION Nicolaas Denise DO [address] [place] [address] Xr Imaging Referral ID Status Reason Start Date Expiration Date V isits Requested Visits Authorized [id number] Closed Auto-Generate d Referral 07/09/2022 08/08/2023 1 1 [facility] for referral (narrative)* Outpatient Procedure (Routine) - Closed Specialty Diagnoses / Procedures Referred By Contac t Referred To Contact [facility] Diagnoses Bile leak Procedures ERCP ERCP DX COLLECTION SPECIMEN BRUSHING/WASHING Avni Williamson MD [address] [place] [address] [facility] [address] [place] [address] Referral ID Status Reason Start Date Expiration Date V isits Requested Visits Authorized [id number] Closed Auto-Generate d Referral 07/19/2022 06/07/2023 1 1 [facility] for referral (narrative)* Diagnostic Procedure Only (Routine) - Authorized Specialty Diagnoses / Procedures Referred By Contac t Referred To Contact XR IMAGING Diagnoses Low grade mucinous neoplasm of appendix Procedures XR ABSCESS DRAIN INJECTION Nicolasa Denise DO [address] [place] [address] Xr Imaging Referral ID Status Reason Start Date Expiration Date Visits Requested Visits Authorized [id number] Authorized Auto-Generat ed Referral 09/26/[address] [facility] for referral (narrative)* Diagnostic Procedure Only (Routine) - Closed Specialty Diagnoses / Procedures Referred By Contac t Referred To Contact XR IMAGING Diagnoses Low grade mucinous neoplasm of appendix Procedures XR ABSCESS DRAIN INJECTION Nicolasa Denise DO [address] [place] [address] Xr Imaging Referral ID Status Reason Start Date Expiration Date V isits Requested Visits Authorized [id number] Closed Auto-Generate d Referral 08/27/2022 09/26/[address] [facility] for referral (narrative)* Diagnostic Procedure Only (Routine) - Closed Specialty Diagnoses / Procedures Referred By Contac t Referred To Contact CT [facility] Diagnoses Low grade mucinous neoplasm of appendix Procedures CT ABD/PEL W IVCON CT ABD & PELVIS W/CONTRAST Nicolasa Denise DO [address] [place] [address] [facility] [place] [address] Referral ID Status Reason Start Date Expiration Date Visits Re quested Visits Authorized [id number] Closed 05/01/2024 09/29/2024 2 2 * Diagnostic Procedure Only (Routine) - Authorized Specialty Diagnoses / Procedures Referred By Ruddy cjea Referred To Contact CT [facility] Diagnoses Low grade mucinous neoplasm of appendix Procedures CT CHEST W IVCON DIAGNOSTIC COMPUTED TOMOGRAPHY THORAX W/CONTRAST Nicolasa Denise DO [address] [place] [address] [facility] [place] [address] Referral ID Status Reason Start Date Expiration Date V isits Requested Visits Authorized [id number] Authorized 05/01/2024 09/29/2024 2 2 [facility]No reason for referral information availableW[facility] Work Phone: Reason for visit Narrative* Outpatient Procedure (Routine) - Closed Specialty Diagnoses / Procedures Referred By Ruddy ceja [facility] Diagnoses Anemia, unspecified type Upper abdominal mass Procedures COLONOSCOPY DIAGNOSTIC COLONOSCOPY FLX DX W/COLLJ SPEC WHEN Priscila Greenwood MD [address] [place] [address] [facility] [address] [place] [address] Referral ID Status Reason Start Date Expiration Date V isits Requested Visits Authorized [id number] Closed Auto-Generate d Referral Patient Cleared INN/[facility] Payor Auth Obtained 04/19/2022 09/29/2022 1 1 [facility] for visit Narrative* Outpatient Procedure (Routine) - Closed Specialty Diagnoses / Procedures Referred By Contac t Referred To Contact [facility] Diagnoses Bile leak Procedures ERCP ERCP DX COLLECTION SPECIMEN BRUSHING/WASHING Avni Williamson MD [address] [place] [id number] [facility] [address] [place] [id number] Referral ID Status Reason Start Date Expiration Date V isits Requested Visits Authorized [id number] Closed Auto-Generate d Referral 07/19/2022 06/07/2023 1 1 [facility] Diagnostic Procedure Only (Routine) - Closed Specialty Diagnoses / Procedures Referred By Contac t Referred To Contact CT IM[facility] Diagnoses Low grade mucinous neoplasm of appendix Procedures CT ABD/PEL W IVCON CT ABD & PELVIS W/CONTRAST Nicolasa Denise DO [address] [place] [id number] [facility] [place] [address] Referral ID Status Reason Start Date Expiration Date Visits Re quested Visits Authorized [id number] Closed 05/01/2024 09/29/2024 2 2 [facility] Reason for Referral Specialty Diagnoses / Procedures Referred By Contac t Referred To Contact General Surgery Diagnoses Iron deficiency anemia, unspecified iron deficiency anemia type Procedures CONSULT TO GENERAL SURGERY OFFICE/OUTPATIENT [facility] 60-74 MINUTES Julissa Ugarte, DIRECTOR [employer] [address] [place] [address] Referral ID Status Reason Start Date Expiration Date Visits Requested Visits Authorized [id number] Authorized PCP Requested Referral 03/05/2022 03/05/2023 1 1 Specialty Diagnoses / Procedures Referred By Contac t Referred To Contact CT [facility] Diagnoses Intra-abdominal and pelvic swelling, mass and lump, unspecified site Procedures CT ABD/PEL W IVCON CT ABD & PELVIS W/CONTRAST Priscila Clarke MD [address] [place] [address] Ct [facility] Referral ID Status Reason Start Date Expiration Date V isits Requested Visits Authorized [id number] Closed Auto-Generat ed Referral Patient Cleared - Admin/Chairm an/Director advise to proceed 04/20/2022 09/29/2022 1 1 Specialty Diagnoses / Procedures Referred By Contac t Referred To Contact Diagnoses Low grade mucinous neoplasm of appendix Procedures IN PERSON CONSULT TO PACC Nicolasa Denise DO [address] [place] [address] Referral ID Status Reason Start Date Expiration Date Visits Requested Visits Authorized [id number] Ref Not Required PCP Requested Referral 05/11/2022 08/02/2022 1 1 Specialty Diagnoses / Procedures Referred By Contac t [facility] Diagnoses Low grade mucinous neoplasm of appendix Procedures ECG COMPLETE ECG ROUTINE ECG W/LEAST 12 LDS W/I&R Nicolasa Denise, [address] [place] [address] [facility] [address] [place] [address] Referral ID Status Reason Start Date Expiration Date V isits Requested Visits Authorized [id number] Closed Auto-Generate d Referral 05/11/2022 05/04/2023 1 1 Specialty Diagnoses / Procedures Referred By Contac t Referred To Contact CT [facility] Diagnoses Intra-abdominal and pelvic swelling, mass and lump, unspecified site Low grade mucinous neoplasm of appendix Procedures CT CHEST W IVCON DIAGNOSTIC COMPUTED TOMOGRAPHY THORAX W/CONTRAST Nicolasa Denise [address] [place] [address] Ct [facility] Referral ID Status Reason Start Date Expiration Date Visits Requested Visits Authorized [id number] Pending Review Auto-Generat ed Referral 01/08/2023 02/07/2024 1 1 Specialty Diagnoses / Procedures Referred By Contac t Referred To Contact CT IM[facility] Diagnoses Intra-abdominal and pelvic swelling, mass and lump, unspecified site Low grade mucinous neoplasm of appendix Procedures CT ABD/PEL W IVCON CT ABD & PELVIS W/CONTRAST Nicolasa Denise [address] [place] [address] Ct Imaging Referral ID Status Reason Start Date Expiration Date Visits Requested Visits Authorized [id number] Pending Review Auto-Generat ed Referral 01/08/2023 02/07/2024 1 1 Specialty Diagnoses / Procedures Referred By Contac t Referred To Contact CT IMAGING Diagnoses Intra-abdominal and pelvic swelling, mass and lump, unspecified site Low grade mucinous neoplasm of appendix Procedures CT CHEST W IVCON DIAGNOSTIC COMPUTED TOMOGRAPHY THORAX W/CONTRAST Nicolasa Denise, [id number] [facility] [place] [address] Referral ID Status Reason Start Date Expiration Date V isits Requested Visits Authorized [id number] Closed Auto-Generate d Referral 05/06/2023 02/07/2024 1 1 Specialty Diagnoses / Procedures Referred By Contac t Referred To Contact CT IMAGING Diagnoses Intra-abdominal and pelvic swelling, mass and lump, unspecified site Low grade mucinous neoplasm of appendix Procedures CT ABD/PEL W IVCON CT ABD & PELVIS W/CONTRAST Nicolasa Denise, [id number] [facility] [place] [address] Referral ID Status Reason Start Date Expiration Date V isits Requested Visits Authorized [id number] Closed Auto-Generate d Referral 05/06/2023 02/07/2024 1 1 Advance Directives No Advanced Directives Records FoundDocuments on File Type Date Recorded Patient Coffee Host Expl anation Advance Directive(s) 04/19/2022 4:25 PM Documents on File Type Date Recorded Patient Coffee Host Expl anation Advance Directive(s) 04/19/2022 4:25 PM Documents on File Type Date Recorded Patient Coffee Host Expl anation Advance Directive(s) 2022 8:47 AM Advance Directive(s) 04/19/2022 4:25 PM Documents on File Type Date Recorded Patient Coffee Host Expl anation Advance Directive(s) 04/25/2022 12:27 PM Advance Directive(s) 2022 8:47 AM Advance Directive(s) 04/19/2022 4:25 PM Documents on File Type Date Recorded Patient Coffee Host Expl anation Advance Directive(s) 04/25/2022 12:27 PM Advance Directive(s) 2022 8:47 AM Advance Directive(s) 04/19/2022 4:25 PM Documents on File Type Date Recorded Patient Coffee Host Expl anation Advance Directive(s) 05/31/2022 9:56 AM Documents on File Type Date Recorded Patient Coffee Host Expl anation Advance Directive(s) 05/31/2022 9:56 AM Advance Directive Response Recorded Date/ Time Living Will No November 26, 025 8:54pm Power of Engineer Station Mainline No November 26, 2024 8:54pm Living Will No December 15, 2024 8:29am Power of Engineer Station Mainline No December 15 8:29am Advance Directive Response Recorded Date/ Time Living Will No November 26, 025 8:54pm Power of Engineer Station Mainline No November 26, 2024 8:54pm Living Will No December 15, 2024 11:22am Power of Engineer Station Mainline No December 15 11:22am Advance Directive Response Recorded Date/ Time Living Will No November 26, 8:54pm Do you have a Healthcare Power of Engineer Station Mainline? No November 26, 2024 8:54pm Living Will No December 15, 2024 11:22am Do you have a Healthcare Power of Engineer Station Mainline? No December 15, 2024 11:22am Living Will No January 15, 2025 8:54pm Do you have a Healthcare Power of Engineer Station Mainline? No January 15, 2025 8:54pm Medications Administered Section Inactive Administered Medications - up to 3 most recent administrations Medication Order MAR Action Action Date Dose Rate Site benzocaine 20% 1 [place] (TOPEX) 1 [place], TOPICAL, DIRECTED, Starting on Sat04/26/22 at 0900, Until Sat04/26/22 at 1259, DOSING DIRECTED BY PHYSICIAN FOR PROCEDURAL SEDATION ONLY - Pharmaceutical Waste: Aerosol -, Intraprocedure Given by [facility] 04/26/2022 8:28 AM EDT 5 Sprays diphenhydrAMINE 12.5-50 mg injection (BENADRYL) 12.5-50 mg, INTRAVENOUS, DIRECTED, Starting on Sat04/26/22 at 0900, Until Jackie 04/26/22 at 1259, DOSING DIRECTED BY PHYSICIAN FOR PROCEDURAL SEDATION ONLY, Intraprocedure Given by [facility] 04/26/2022 8:31 AM EDT 50 mg fentaNYL 50 mcg/mL 25-100 mcg injection (SUBLIMAZE) 25-100 mcg, INTRAVENOUS, DIRECTED, Starting on Sat04/26/22 at 0900, Until Jackie 04/26/22 at 1259, DOSING DIRECTED BY PHYSICIAN FOR PROCEDURAL SEDATION ONLY, Intraprocedure Given by [facility] 04/26/2022 8:31 AM EDT 25 mcg Given by [facility] 04/26/2022 8:30 AM EDT 25 mcg Given by [facility] 04/26/2022 8:29 AM EDT 50 mcg lactated ringers iv infusion 30 mL/hr, INTRAVENOUS, CONTINUOUS, Starting on Jackie 04/26/22 at 0800, Until Jackie 04/26/22 at 0913, Preprocedure New Bag/Syringe/Bottle 04/26/2022 7:55 AM EDT 30 mL/hr 30 mL/hr midazolam (PF) 1-5 mg injection (VERSED) 1-5 mg, INTRAVENOUS, DIRECTED, Starting on Jackie 04/26/22 at 0900, Until Jackie 04/26/22 at 1259, DOSING DIRECTED BY PHYSICIAN FOR PROCEDURAL SEDATION ONLY, Intraprocedure Given 04/26/2022 8:37 AM EDT 1 mg Given by [facility] 04/26/2022 8:33 AM EDT 2 mg Given by [facility] 04/26/2022 8:31 AM EDT 1 mg Summary Purpose Family History No Family History Records Found Relationship Condition Age at Onset Recorded Date/T anderson Not Specified Venous thromboembolism (VTE) Unknown Chief Complaint and Reason for Visit Chief Complaint SEPSIS/AFTERCARE Chief Complaint Admit Date [place] November 26, 2024 6:49pm [place] November 27, 2024 3:11pm [place] November 27, 2024 6:43pm [place] November 28, 2024 1:58 pm [place] November 29, 2024 8:35 am ACUTE KIDNEY INJURY December 15, 2024 10: 18am Reason for Visit Admit Date Hypokalemia November 27, 2024 3:11pm Acute kidney injury November 27, 2024 3:11pm Hypotension due to hypovolemia November 27, 2024 3:11pm Metabolic acidosis November 27, 2024 3:11pm Nausea, vomiting and diarrhea November [id number] 3:11pm Acute kidney injury December 15, 2024 10: 18am Dehydration December 15, 2024 10: 18am Chief Complaint Admit Date [place] November 26, 2024 6:49pm [place] November 27, 2024 3:11pm [place] November 27, 2024 6:43pm [place] November 28, 2024 1:58 pm [place] November 29, 2024 8:35 am ACUTE KIDNEY INJURY December 15, 2024 10: 18am ACUTE KIDNEY INJURY December 15, 2024 4:3 3pm ACUTE KIDNEY INJURY December 16, 2024 12: 04am Chief Complaint Admit Date [place] November 26, 2024 6:49pm [place] November 27, 2024 3:11pm [place] November 27, 2024 6:43pm [place] November 28, 2024 1:58 pm [place] November 29, 2024 8:35 am ACUTE KIDNEY INJURY December 15, 2024 10: 18am ACUTE KIDNEY INJURY December 15, 2024 4:3 3pm ACUTE KIDNEY INJURY December 16, 2024 12: 04am need some fluids January 15, 2025 7:2 6pm Additional Source Comments Source Comments (unrecognize d section and content) In the event this informatio n is protected by the Federal Confidentiality of Alcohol and Drug Abuse Patient Records regulations: The Federal rules restrict any use of the information to criminally investigate or prosecute any alcohol or drug abuse patient.[facility] Center[facility] the event this information is protected by the Federal Confidentiality of Alcohol and Drug Abuse Patient Records regulations: The Federal rules restrict any use of the information to criminally investigate or prosecute any alcohol or drug abuse patient.[facility] CenterIn the event this information is protected by the Federal Confidentiality of Alcohol and Drug Abuse Patient Records regulations: The Federal rules restrict any use of the information to criminally investigate or prosecute any alcohol or drug abuse patient.[facility] CenterIn the event this information is protected by the Federal Confidentiality of Alcohol and Drug Abuse Patient Records regulations: The Federal rules restrict any use of the information to criminally investigate or prosecute any alcohol or drug abuse patient.[facility] CenterIn the event this information is protected by the Federal Confidentiality of Alcohol and Drug Abuse Patient Records regulations: The Federal rules restrict any use of the information to criminally investigate or prosecute any alcohol or drug abuse patient.[facility] CenterIn the event this information is protected by the Federal Confidentiality of Alcohol and Drug Abuse Patient Records regulations: The Federal rules restrict any use of the information to criminally investigate or prosecute any alcohol or drug abuse patient.[facility] CenterIn the event this information is protected by the Federal Confidentiality of Alcohol and Drug Abuse Patient Records regulations: The Federal rules restrict any use of the information to criminally investigate or prosecute any alcohol or drug abuse patient.[facility] CenterIn the event this information is protected by the Federal Confidentiality of Alcohol and Drug Abuse Patient Records regulations: The Federal rules restrict any use of the information to criminally investigate or prosecute any alcohol or drug abuse patient.[facility] CenterIn the event this information is protected by the Federal Confidentiality of Alcohol and Drug Abuse Patient Records regulations: The Federal rules restrict any use of the information to criminally investigate or prosecute any alcohol or drug abuse patient.[facility] CenterIn the event this information is protected by the Federal Confidentiality of Alcohol and Drug Abuse Patient Records regulations: The Federal rules restrict any use of the information to criminally investigate or prosecute any alcohol or drug abuse patient.[facility] CenterIn the event this information is protected by the Federal Confidentiality of Alcohol and Drug Abuse Patient Records regulations: The Federal rules restrict any use of the information to criminally investigate or prosecute any alcohol or drug abuse patient.[facility] CenterIn the event this information is protected by the Federal Confidentiality of Alcohol and Drug Abuse Patient Records regulations: The Federal rules restrict any use of the information to criminally investigate or prosecute any alcohol or drug abuse patient.[facility] CenterIn the event this information is protected by the Federal Confidentiality of Alcohol and Drug Abuse Patient Records regulations: The Federal rules restrict any use of the information to criminally investigate or prosecute any alcohol or drug abuse patient.[facility] CenterIn the event this information is protected by the Federal Confidentiality of Alcohol and Drug Abuse Patient Records regulations: The Federal rules restrict any use of the information to criminally investigate or prosecute any alcohol or drug abuse patient.[facility] CenterIn the event this information is protected by the Federal Confidentiality of Alcohol and Drug Abuse Patient Records regulations: The Federal rules restrict any use of the information to criminally investigate or prosecute any alcohol or drug abuse patient.[facility] CenterIn the event this information is protected by the Federal Confidentiality of Alcohol and Drug Abuse Patient Records regulations: The Federal rules restrict any use of the information to criminally investigate or prosecute any alcohol or drug abuse patient.[facility] CenterIn the event this information is protected by the Federal Confidentiality of Alcohol and Drug Abuse Patient Records regulations: The Federal rules restrict any use of the information to criminally investigate or prosecute any alcohol or drug abuse patient.[facility] CenterIn the event this information is protected by the Federal Confidentiality of Alcohol and Drug Abuse Patient Records regulations: The Federal rules restrict any use of the information to criminally investigate or prosecute any alcohol or drug abuse patient.[facility] CenterIn the event this information is protected by the Federal Confidentiality of Alcohol and Drug Abuse Patient Records regulations: The Federal rules restrict any use of the information to criminally investigate or prosecute any alcohol or drug abuse patient.[facility] CenterIn the event this information is protected by the Federal Confidentiality of Alcohol and Drug Abuse Patient Records regulations: The Federal rules restrict any use of the information to criminally investigate or prosecute any alcohol or drug abuse patient.[facility] CenterIn the event this information is protected by the Federal Confidentiality of Alcohol and Drug Abuse Patient Records regulations: The Federal rules restrict any use of the information to criminally investigate or prosecute any alcohol or drug abuse patient.[facility] CenterIn the event this information is protected by the Federal Confidentiality of Alcohol and Drug Abuse Patient Records regulations: The Federal rules restrict any use of the information to criminally investigate or prosecute any alcohol or drug abuse patient.[facility] CenterIn the event this information is protected by the Federal Confidentiality of Alcohol and Drug Abuse Patient Records regulations: The Federal rules restrict any use of the information to criminally investigate or prosecute any alcohol or drug abuse patient.[facility] CenterIn the event this information is protected by the Federal Confidentiality of Alcohol and Drug Abuse Patient Records regulations: The Federal rules restrict any use of the information to criminally investigate or prosecute any alcohol or drug abuse patient.[facility] CenterIn the event this information is protected by the Federal Confidentiality of Alcohol and Drug Abuse Patient Records regulations: The Federal rules restrict any use of the information to criminally investigate or prosecute any alcohol or drug abuse patient.[facility] CenterIn the event this information is protected by the Federal Confidentiality of Alcohol and Drug Abuse Patient Records regulations: The Federal rules restrict any use of the information to criminally investigate or prosecute any alcohol or drug abuse patient.[facility] CenterIn the event this information is protected by the Federal Confidentiality of Alcohol and Drug Abuse Patient Records regulations: The Federal rules restrict any use of the information to criminally investigate or prosecute any alcohol or drug abuse patient.[facility] CenterIn the event this information is protected by the Federal Confidentiality of Alcohol and Drug Abuse Patient Records regulations: The Federal rules restrict any use of the information to criminally investigate or prosecute any alcohol or drug abuse patient.[facility] CenterIn the event this information is protected by the Federal Confidentiality of Alcohol and Drug Abuse Patient Records regulations: The Federal rules restrict any use of the information to criminally investigate or prosecute any alcohol or drug abuse patient.[facility] CenterIn the event this information is protected by the Federal Confidentiality of Alcohol and Drug Abuse Patient Records regulations: The Federal rules restrict any use of the information to criminally investigate or prosecute any alcohol or drug abuse patient.[facility] CenterIn the event this information is protected by the Federal Confidentiality of Alcohol and Drug Abuse Patient Records regulations: The Federal rules restrict any use of the information to criminally investigate or prosecute any alcohol or drug abuse patient.[facility] CenterIn the event this information is protected by the Federal Confidentiality of Alcohol and Drug Abuse Patient Records regulations: The Federal rules restrict any use of the information to criminally investigate or prosecute any alcohol or drug abuse patient.[facility] CenterIn the event this information is protected by the Federal Confidentiality of Alcohol and Drug Abuse Patient Records regulations: The Federal rules restrict any use of the information to criminally investigate or prosecute any alcohol or drug abuse patient.[facility] CenterIn the event this information is protected by the Federal Confidentiality of Alcohol and Drug Abuse Patient Records regulations: The Federal rules restrict any use of the information to criminally investigate or prosecute any alcohol or drug abuse patient.[facility] CenterIn the event this information is protected by the Federal Confidentiality of Alcohol and Drug Abuse Patient Records regulations: The Federal rules restrict any use of the information to criminally investigate or prosecute any alcohol or drug abuse patient.[facility] CenterIn the event this information is protected by the Federal Confidentiality of Alcohol and Drug Abuse Patient Records regulations: The Federal rules restrict any use of the information to criminally investigate or prosecute any alcohol or drug abuse patient.[facility] CenterIn the event this information is protected by the Federal Confidentiality of Alcohol and Drug Abuse Patient Records regulations: The Federal rules restrict any use of the information to criminally investigate or prosecute any alcohol or drug abuse patient.[facility] CenterIn the event this information is protected by the Federal Confidentiality of Alcohol and Drug Abuse Patient Records regulations: The Federal rules restrict any use of the information to criminally investigate or prosecute any alcohol or drug abuse patient.[facility] CenterIn the event this information is protected by the Federal Confidentiality of Alcohol and Drug Abuse Patient Records regulations: The Federal rules restrict any use of the information to criminally investigate or prosecute any alcohol or drug abuse patient.[facility] CenterIn the event this information is protected by the Federal Confidentiality of Alcohol and Drug Abuse Patient Records regulations: The Federal rules restrict any use of the information to criminally investigate or prosecute any alcohol or drug abuse patient.[facility] CenterIn the event this information is protected by the Federal Confidentiality of Alcohol and Drug Abuse Patient Records regulations: The Federal rules restrict any use of the information to criminally investigate or prosecute any alcohol or drug abuse patient.[facility] CenterIn the event this information is protected by the Federal Confidentiality of Alcohol and Drug Abuse Patient Records regulations: The Federal rules restrict any use of the information to criminally investigate or prosecute any alcohol or drug abuse patient.[facility] CenterIn the event this information is protected by the Federal Confidentiality of Alcohol and Drug Abuse Patient Records regulations: The Federal rules restrict any use of the information to criminally investigate or prosecute any alcohol or drug abuse patient.[facility] CenterIn the event this information is protected by the Federal Confidentiality of Alcohol and Drug Abuse Patient Records regulations: The Federal rules restrict any use of the information to criminally investigate or prosecute any alcohol or drug abuse patient.[facility] CenterIn the event this information is protected by the Federal Confidentiality of Alcohol and Drug Abuse Patient Records regulations: The Federal rules restrict any use of the information to criminally investigate or prosecute any alcohol or drug abuse patient.[facility] CenterIn the event this information is protected by the Federal Confidentiality of Alcohol and Drug Abuse Patient Records regulations: The Federal rules restrict any use of the information to criminally investigate or prosecute any alcohol or drug abuse patient.[facility] CenterIn the event this information is protected by the Federal Confidentiality of Alcohol and Drug Abuse Patient Records regulations: The Federal rules restrict any use of the information to criminally investigate or prosecute any alcohol or drug abuse patient.[facility] CenterIn the event this information is protected by the Federal Confidentiality of Alcohol and Drug Abuse Patient Records regulations: The Federal rules restrict any use of the information to criminally investigate or prosecute any alcohol or drug abuse patient.[facility] CenterIn the event this information is protected by the Federal Confidentiality of Alcohol and Drug Abuse Patient Records regulations: The Federal rules restrict any use of the information to criminally investigate or prosecute any alcohol or drug abuse patient.[facility] CenterIn the event this information is protected by the Federal Confidentiality of Alcohol and Drug Abuse Patient Records regulations: The Federal rules restrict any use of the information to criminally investigate or prosecute any alcohol or drug abuse patient.[facility] CenterIn the event this information is protected by the Federal Confidentiality of Alcohol and Drug Abuse Patient Records regulations: The Federal rules restrict any use of the information to criminally investigate or prosecute any alcohol or drug abuse patient.[facility] CenterIn the event this information is protected by the Federal Confidentiality of Alcohol and Drug Abuse Patient Records regulations: The Federal rules restrict any use of the information to criminally investigate or prosecute any alcohol or drug abuse patient.[facility] CenterIn the event this information is protected by the Federal Confidentiality of Alcohol and Drug Abuse Patient Records regulations: The Federal rules restrict any use of the information to criminally investigate or prosecute any alcohol or drug abuse patient.[facility] CenterIn the event this information is protected by the Federal Confidentiality of Alcohol and Drug Abuse Patient Records regulations: The Federal rules restrict any use of the information to criminally investigate or prosecute any alcohol or drug abuse patient.[facility] CenterIn the event this information is protected by the Federal Confidentiality of Alcohol and Drug Abuse Patient Records regulations: The Federal rules restrict any use of the information to criminally investigate or prosecute any alcohol or drug abuse patient.[facility] CenterIn the event this information is protected by the Federal Confidentiality of Alcohol and Drug Abuse Patient Records regulations: The Federal rules restrict any use of the information to criminally investigate or prosecute any alcohol or drug abuse patient.[facility] CenterIn the event this information is protected by the Federal Confidentiality of Alcohol and Drug Abuse Patient Records regulations: The Federal rules restrict any use of the information to criminally investigate or prosecute any alcohol or drug abuse patient.[facility] CenterIn the event this information is protected by the Federal Confidentiality of Alcohol and Drug Abuse Patient Records regulations: The Federal rules restrict any use of the information to criminally investigate or prosecute any alcohol or drug abuse patient.[facility] CenterIn the event this information is protected by the Federal Confidentiality of Alcohol and Drug Abuse Patient Records regulations: The Federal rules restrict any use of the information to criminally investigate or prosecute any alcohol or drug abuse patient.[facility] [facility] CenterIn the event this information is protected by the Federal Confidentiality of Alcohol and Drug Abuse Patient Records regulations: The Federal rules restrict any use of the information to criminally investigate or prosecute any alcohol or drug abuse patient.[facility] CenterIn the event this information is protected by the Federal Confidentiality of Alcohol and Drug Abuse Patient Records regulations: The Federal rules restrict any use of the information to criminally investigate or prosecute any alcohol or drug abuse patient.[facility] CenterIn the event this information is protected by the Federal Confidentiality of Alcohol and Drug Abuse Patient Records regulations: The Federal rules restrict any use of the information to criminally investigate or prosecute any alcohol or drug abuse patient.[facility] CenterIn the event this information is protected by the Federal Confidentiality of Alcohol and Drug Abuse Patient Records regulations: The Federal rules restrict any use of the information to criminally investigate or prosecute any alcohol or drug abuse patient.[facility] CenterIn the event this information is protected by the Federal Confidentiality of Alcohol and Drug Abuse Patient Records regulations: The Federal rules restrict any use of the information to criminally investigate or prosecute any alcohol or drug abuse patient.[facility] CenterIn the event this information is protected by the Federal Confidentiality of Alcohol and Drug Abuse Patient Records regulations: The Federal rules restrict any use of the information to criminally investigate or prosecute any alcohol or drug abuse patient.[facility] CenterIn the event this information is protected by the Federal Confidentiality of Alcohol and Drug Abuse Patient Records regulations: The Federal rules restrict any use of the information to criminally investigate or prosecute any alcohol or drug abuse patient.[facility] CenterIn the event this information is protected by the Federal Confidentiality of Alcohol and Drug Abuse Patient Records regulations: The Federal rules restrict any use of the information to criminally investigate or prosecute any alcohol or drug abuse patient.[facility] CenterIn the event this information is protected by the Federal Confidentiality of Alcohol and Drug Abuse Patient Records regulations: The Federal rules restrict any use of the information to criminally investigate or prosecute any alcohol or drug abuse patient.[facility] CenterIn the event this information is protected by the Federal Confidentiality of Alcohol and Drug Abuse Patient Records regulations: The Federal rules restrict any use of the information to criminally investigate or prosecute any alcohol or drug abuse patient.[facility] CenterIn the event this information is protected by the Federal Confidentiality of Alcohol and Drug Abuse Patient Records regulations: The Federal rules restrict any use of the information to criminally investigate or prosecute any alcohol or drug abuse patient.[facility] CenterIn the event this information is protected by the Federal Confidentiality of Alcohol and Drug Abuse Patient Records regulations: The Federal rules restrict any use of the information to criminally investigate or prosecute any alcohol or drug abuse patient.[facility] CenterIn the event this information is protected by the Federal Confidentiality of Alcohol and Drug Abuse Patient Records regulations: The Federal rules restrict any use of the information to criminally investigate or prosecute any alcohol or drug abuse patient.[facility] CenterIn the event this information is protected by the Federal Confidentiality of Alcohol and Drug Abuse Patient Records regulations: The Federal rules restrict any use of the information to criminally investigate or prosecute any alcohol or drug abuse patient.[facility] CenterIn the event this information is protected by the Federal Confidentiality of Alcohol and Drug Abuse Patient Records regulations: The Federal rules restrict any use of the information to criminally investigate or prosecute any alcohol or drug abuse patient.[facility] CenterIn the event this information is protected by the Federal Confidentiality of Alcohol and Drug Abuse Patient Records regulations: The Federal rules restrict any use of the information to criminally investigate or prosecute any alcohol or drug abuse patient.[facility] CenterIn the event this information is protected by the Federal Confidentiality of Alcohol and Drug Abuse Patient Records regulations: The Federal rules restrict any use of the information to criminally investigate or prosecute any alcohol or drug abuse patient.[facility] CenterIn the event this information is protected by the Federal Confidentiality of Alcohol and Drug Abuse Patient Records regulations: The Federal rules restrict any use of the information to criminally investigate or prosecute any alcohol or drug abuse patient.[facility] CenterIn the event this information is protected by the Federal Confidentiality of Alcohol and Drug Abuse Patient Records regulations: The Federal rules restrict any use of the information to criminally investigate or prosecute any alcohol or drug abuse patient.[facility] CenterIn the event this information is protected by the Federal Confidentiality of Alcohol and Drug Abuse Patient Records regulations: The Federal rules restrict any use of the information to criminally investigate or prosecute any alcohol or drug abuse patient.[facility] CenterIn the event this information is protected by the Federal Confidentiality of Alcohol and Drug Abuse Patient Records regulations: The Federal rules restrict any use of the information to criminally investigate or prosecute any alcohol or drug abuse patient.[facility] CenterIn the event this information is protected by the Federal Confidentiality of Alcohol and Drug Abuse Patient Records regulations: The Federal rules restrict any use of the information to criminally investigate or prosecute any alcohol or drug abuse patient.[facility] CenterIn the event this information is protected by the Federal Confidentiality of Alcohol and Drug Abuse Patient Records regulations: The Federal rules restrict any use of the information to criminally investigate or prosecute any alcohol or drug abuse patient.[facility] CenterIn the event this information is protected by the Federal Confidentiality of Alcohol and Drug Abuse Patient Records regulations: The Federal rules restrict any use of the information to criminally investigate or prosecute any alcohol or drug abuse patient.[facility] CenterIn the event this information is protected by the Federal Confidentiality of Alcohol and Drug Abuse Patient Records regulations: The Federal rules restrict any use of the information to criminally investigate or prosecute any alcohol or drug abuse patient.[facility] CenterIn the event this information is protected by the Federal Confidentiality of Alcohol and Drug Abuse Patient Records regulations: The Federal rules restrict any use of the information to criminally investigate or prosecute any alcohol or drug abuse patient.[facility] CenterIn the event this information is protected by the Federal Confidentiality of Alcohol and Drug Abuse Patient Records regulations: The Federal rules restrict any use of the information to criminally investigate or prosecute any alcohol or drug abuse patient.[facility] CenterIn the event this information is protected by the Federal Confidentiality of Alcohol and Drug Abuse Patient Records regulations: The Federal rules restrict any use of the information to criminally investigate or prosecute any alcohol or drug abuse patient.[facility] CenterIn the event this information is protected by the Federal Confidentiality of Alcohol and Drug Abuse Patient Records regulations: The Federal rules restrict any use of the information to criminally investigate or prosecute any alcohol or drug abuse patient.[facility] CenterIn the event this information is protected by the Federal Confidentiality of Alcohol and Drug Abuse Patient Records regulations: The Federal rules restrict any use of the information to criminally investigate or prosecute any alcohol or drug abuse patient.[facility] CenterIn the event this information is protected by the Federal Confidentiality of Alcohol and Drug Abuse Patient Records regulations: The Federal rules restrict any use of the information to criminally investigate or prosecute any alcohol or drug abuse patient.[facility] CenterIn the event this information is protected by the Federal Confidentiality of Alcohol and Drug Abuse Patient Records regulations: The Federal rules restrict any use of the information to criminally investigate or prosecute any alcohol or drug abuse patient.[facility] CenterIn the event this information is protected by the Federal Confidentiality of Alcohol and Drug Abuse Patient Records regulations: The Federal rules restrict any use of the information to criminally investigate or prosecute any alcohol or drug abuse patient.[facility] CenterIn the event this information is protected by the Federal Confidentiality of Alcohol and Drug Abuse Patient Records regulations: The Federal rules restrict any use of the information to criminally investigate or prosecute any alcohol or drug abuse patient.[facility] CenterIn the event this information is protected by the Federal Confidentiality of Alcohol and Drug Abuse Patient Records regulations: The Federal rules restrict any use of the information to criminally investigate or prosecute any alcohol or drug abuse patient.[facility] CenterIn the event this information is protected by the Federal Confidentiality of Alcohol and Drug Abuse Patient Records regulations: The Federal rules restrict any use of the information to criminally investigate or prosecute any alcohol or drug abuse patient.[facility] CenterIn the event this information is protected by the Federal Confidentiality of Alcohol and Drug Abuse Patient Records regulations: The Federal rules restrict any use of the information to criminally investigate or prosecute any alcohol or drug abuse patient.[facility] CenterIn the event this information is protected by the Federal Confidentiality of Alcohol and Drug Abuse Patient Records regulations: The Federal rules restrict any use of the information to criminally investigate or prosecute any alcohol or drug abuse patient.[facility] CenterIn the event this information is protected by the Federal Confidentiality of Alcohol and Drug Abuse Patient Records regulations: The Federal rules restrict any use of the information to criminally investigate or prosecute any alcohol or drug abuse patient.[facility] Reason for Visit (unrecogniz ed section and content) Reason Comments Radiology CT Specialty Diagnoses / Procedures Referred By Contac t Referred To Contact CT IMAGING Diagnoses Intra-abdominal and pelvic swelling, mass and lump, unspecified site Procedures CT ABD/PEL W IVCON CT ABD & PELVIS W/CONTRAST Priscila Clarke MD [address] [place] [address] Ct Imaging Referral ID Status Reason Start Date Expiration Date V isits Requested Visits Authorized [id number] Closed Auto-Generat ed Referral Patient Cleared - Admin/Chairm an/Director advise to proceed 04/20/2022 09/29/2022 1 1 Reason Onset Date Comments Refill Request 12/20/2021 Reason Comments F/U 6 Month Reason Comments Results, Lab Reason Comments Results Reason Comments Appointment New patient 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 Reason Comments Follow Up colonoscopy and EGD Reason Comments Established Patient Reason Comments Mass on appendix Reason Comments Home Health Orders Reason Comments CoPat Start Reason Onset Date Comments Transition Of Care 06/29/2022 [facility] Initial [facility] Discharge 06/28/22 Reason Comments CoPat Management Reason Onset Date Comments Transition Of Care 07/07/2022 [facility] follow up [facility] Discharge 06/28/22 Reason Comments Patient Question Reason Comments Radio GI Main HB6 Specialty Diagnoses / Procedures Referred By Contac t Referred To Contact XR IMAGING Diagnoses Postoperative abscess Procedures XR ABSCESS DRAIN INJECTION Nicolasa Denise A, DO [address] [place] [address] Xr Imaging Referral ID Status Reason Start Date Expiration Date V isits Requested Visits Authorized [id number] Closed Auto-Generate d Referral 07/09/2022 08/08/2023 1 1 Reason Comments Patient Update Reason Comments CoPat Agency Reason Comments Orders Reason Comments Appointment Confirmation Reason Onset Date Comments Transition Of Care 07/13/2022 [facility] follow up [facility] Discharge 06/28/22 Reason Comments Outside Lab Results copat Reason Comments Established Patient Reason Onset Date Comments Transition Of Care 07/20/2022 [facility] follow up [facility] Discharge 06/28/22 Reason Comments CoPat Stop Reason Comments Infection Follow Up Reason Comments Follow Up Reason Comments Appointment Rescheduled appointm ent from 11/30 to 12/[address] Eaton's schedule change Specialty Diagnoses / Procedures Referred By Contac t Referred To Contact XR IMAGING Diagnoses Low grade mucinous neoplasm of appendix Procedures XR ABSCESS DRAIN INJECTION Howie Angel, DO [address] [place] [address] Xr Imaging Referral ID Status Reason Start Date Expiration Date V isits Requested Visits Authorized [id number] Closed Auto-Generate d Referral 08/27/2022 09/26/2023 1 1 Reason Comments New Patient Reason Comments 10/10/2022 Reason Comments Post Op Reason Comments F/U 6 months Reason Onset Date Comments Refill Request 11/14/2022 Reason Comments Medication Problem Reason Comments Follow Up 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 Reason Comments Follow Up Reason Onset Date Comments Refill Request 02/12/2023 Reason Comments CPAP Supplies Reason Comments Radiology CT Specialty Diagnoses / Procedures Referred By Contac t Referred To Contact CT IMAGING Diagnoses Intra-abdominal and pelvic swelling, mass and lump, unspecified site Low grade mucinous neoplasm of appendix Procedures CT CHEST W IVCON DIAGNOSTIC COMPUTED TOMOGRAPHY THORAX W/CONTRAST Nicolasa Denise, DO [address] [place] [address] Ct Imaging [place] [address] Referral ID Status Reason Start Date Expiration Date V isits Requested Visits Authorized [id number] Closed Auto-Generate d Referral 05/06/2023 02/07/2024 1 1 Reason Comments Depression Follow up on medicat ion change Reason Comments Stoma Consult Reason Onset Date Comments Refill Request 03/23/2024 Specialty Diagnoses / Procedures Referred By Contac t Referred To Contact CT IMAGING Diagnoses Low grade mucinous neoplasm of appendix Procedures CT ABD/PEL W IVCON CT ABD & PELVIS W/CONTRAST Nicolasa Denise, DO [address] [place] [address] Ct Imaging [place] [address] Referral ID Status Reason Start Date Expiration Date Visits Re quested Visits Authorized [id number] Closed 05/01/2024 09/29/2024 2 2 Reason Onset Date Comments Refill Request 11/04/2024 Reason Onset Date Comments Hospital F/U 11/30/2024 Reason Comments Hospital Follow Up Reason Comments Patient Update Called Care Teams (unrecognized sec tion and content) Goggles Assembler Relationship Specialty Start Date End Date Harjeet Bernard MD [address] [place] [address] PCP - General Internal Medicine 03/26/18 Goggles Assembler Relationship Specialty Start Date End Date Harjeet Bernard MD [address] [facility] [place] [place] [address] PCP - General Internal Medicine 03/26/18 Goggles Assembler Relationship Specialty Start Date End Date Harjeet Bernard MD [facility] [place] [place] [address] PCP - General Internal Medicine 03/26/18 Goggles Assembler Relationship Specialty Start Date End Date Harjeet Bernard MD [address] [place] [address], [place] [address] PCP - General Internal Medicine 03/26/18 Goggles Assembler Relationship Specialty Start Date End Date Harjeet Bernard MD [address] [place] [address], [place] [address] PCP - General Internal Medicine 03/26/18 Goggles Assembler Relationship Specialty Start Date End Date Harjeet Bernard MD [address] [place] [address], [place] [address] PCP - General Internal Medicine 03/26/18 Goggles Assembler Relationship Specialty Start Date End Date Harjeet Bernard MD [address] [place] [address], [place] [address] PCP - General Internal Medicine 03/26/18 Goggles Assembler Relationship Specialty Start Date End Date Harjeet Bernard MD [address] [place] [address], [place] [address] PCP - General Internal Medicine 03/26/18 Goggles Assembler Relationship Specialty Start Date End Date Harjeet Bernard MD [address] [place] [address], [place] [address] PCP - General Internal Medicine 03/26/18 Andre Parnell, DO [address] [facility] [place] [address] Hematology/Oncology 05/03/22 Goggles Assembler Relationship Specialty Start Date End Date Harjeet Bernard MD [address] [place] [address] PCP - General Internal Medicine 03/26/18 Andre Parnell, DO [address] [place] [address] Hematology/Oncology 05/03/22 Goggles Assembler Relationship Specialty Start Date End Date Harjeet Bernard MD [address] [place] [address] PCP - General Internal Medicine 03/26/18 Andre Parnell, DO [address] [place] [address] Hematology/Oncology 05/03/22 Goggles Assembler Relationship Specialty Start Date End Date Harjeet Bernard MD [address] [place] [address] PCP - General Internal Medicine 03/26/18 Andre Parnell, DO [address] [place] [address] Hematology/Oncology 05/03/22 Goggles Assembler Relationship Specialty Start Date End Date Harjeet Bernard MD [address] [place] [address] PCP - General Internal Medicine 03/26/18 Andre Parnell, DO [address] [place] [address] Hematology/Oncology 05/03/22 Goggles Assembler Relationship Specialty Start Date End Date Harjeet Bernard MD [address] [place] [address] PCP - General Internal Medicine 03/26/18 Andre Parnell, DO [address] [place] [address] Hematology/Oncology 05/03/22 Goggles Assembler Relationship Specialty Start Date End Date Harjeet Bernard MD [address] [facility] [place] [address] PCP - General Internal Medicine 03/26/18 Andre Parnell, DO [address] [facility] [place] [address] Hematology/Oncology 05/03/22 Goggles Assembler Relationship Specialty Start Date End Date Harjeet Bernard MD [address] [facility] [place] [address] PCP - General Internal Medicine 03/26/18 Andre Parnell, DO [address] [facility] [place] [address] Hematology/Oncology 05/03/22 Graciela Weeks RN [address] [place] [address] Primary Care Sample Box Maker Internal Medicine 06/29/22 07/29/22 Goggles Assembler Relationship Specialty Start Date End Date Harjeet Bernard MD [address] [facility] [place] [address] PCP - General Internal Medicine 03/26/18 Andre Parnell, DO [address] [facility] [place] [address] Hematology/Oncology 05/03/22 Graciela Weeks RN [address] [place] [address] Primary Care Sample Box Maker Internal Medicine 06/29/22 07/29/22 Goggles Assembler Relationship Specialty Start Date End Date Harjeet Bernard MD [address] [facility] [address] PCP - General Internal Medicine 03/26/18 Andre Parnell, DO [address] [facility] [place] [address] Hematology/Oncology 05/03/22 Graciela Weeks RN [address] [facility] [address] Primary Care Sample Box Maker Internal Medicine 06/29/22 07/29/22 Goggles Assembler Relationship Specialty Start Date End Date Harjeet Bernard MD [address] [facility] [place] [address] PCP - General Internal Medicine 03/26/18 Andre Parnell, DO [address] [facility] [address] Hematology/Oncology 05/03/22 Graciela Weeks RN [address] [place] [address] Primary Care Sample Box Maker Internal Medicine 06/29/22 07/29/22 Goggles Assembler Relationship Specialty Start Date End Date Harjeet Bernard MD [address] [facility] [place] [address] PCP - General Internal Medicine 03/26/18 Andre Parnell, DO [address] [facility] [address] Hematology/Oncology 05/03/22 Graciela Weeks RN [address] [facility] [address] Primary Care Sample Box Maker Internal Medicine 06/29/22 07/29/22 Goggles Assembler Relationship Specialty Start Date End Date Harjeet Bernard MD [address] [place] [address] PCP - General Internal Medicine 03/26/18 Andre Parnell, DO [address] [place] [address] Hematology/Oncology 05/03/22 Graciela Weeks RN [address] [place] [address] Primary Care Sample Box Maker Internal Medicine 06/29/22 07/29/22 Goggles Assembler Relationship Specialty Start Date End Date Harjeet Bernard MD [address] [facility] [place] [address] PCP - General Internal Medicine 03/26/18 Andre Parnell, DO [address] [facility] [place] [address] Hematology/Oncology 05/03/22 Graciela Weeks RN [address] [place] [address] Primary Care Sample Box Maker Internal Medicine 06/29/22 07/29/22 Goggles Assembler Relationship Specialty Start Date End Date Harjeet Bernard MD [address] [facility] [place] [address] PCP - General Internal Medicine 03/26/18 Andre Parnell, DO [address] [facility] [place] [address] Hematology/Oncology 05/03/22 Graciela Weeks RN [address] [place] [address] Primary Care Sample Box Maker Internal Medicine 06/29/22 07/29/22 Goggles Assembler Relationship Specialty Start Date End Date Harjeet Bernard MD [address] [facility] [place] [address] PCP - General Internal Medicine 03/26/18 Andre Parnell, DO [address] [facility] [place] [address] Hematology/Oncology 05/03/22 Goggles Assembler Relationship Specialty Start Date End Date Harjeet Bernard MD [address] [facility] [place] [address] PCP - General Internal Medicine 03/26/18 Andre Parnell, DO [address] [place] [address] Hematology/Oncology 05/03/22 Goggles Assembler Relationship Specialty Start Date End Date Harjeet Bernard MD [address] [facility] [place] [address] PCP - General Internal Medicine 03/26/18 Andre Parnell, DO [address] [place] [address] Hematology/Oncology 05/03/22 Graciela Weeks, RN [address] [place] [address] Primary Care Sample Box Maker Internal Medicine 06/29/22 07/29/22 Goggles Assembler Relationship Specialty Start Date End Date Harjeet Bernard MD [address] [place] [address] PCP - General Internal Medicine 03/26/18 Andre Parnell, DO [address] [place] [address] Hematology/Oncology 05/03/22 Goggles Assembler Relationship Specialty Start Date End Date Harjeet Bernard MD [address] [facility] [place] [address] PCP - General Internal Medicine 03/26/18 Andre Parnell, DO [address] [place] [address] Hematology/Oncology 05/03/22 Goggles Assembler Relationship Specialty Start Date End Date Harjeet Bernard MD [address] [place] [address] PCP - General Internal Medicine 03/26/18 Andre Parnell, DO [address] [place] [address] Hematology/Oncology 05/03/22 Goggles Assembler Relationship Specialty Start Date End Date Harjeet Bernard MD [address] [place] [address] PCP - General Internal Medicine 03/26/18 Andre Parnell, DO [address] [place] [address] Hematology/Oncology 05/03/22 Goggles Assembler Relationship Specialty Start Date End Date Harjeet Bernard MD [address] [facility] [place] [address] PCP - General Internal Medicine 03/26/18 Andre Parnell, DO [address] [place] [address] Hematology/Oncology 05/03/22 Goggles Assembler Relationship Specialty Start Date End Date Harjeet Bernard MD [address] [place] [address] PCP - General Internal Medicine 03/26/18 Andre Parnell, DO [address] [place] [address] Hematology/Oncology 05/03/22 Goggles Assembler Relationship Specialty Start Date End Date Harjeet Bernard MD [address] [facility] [place] [address] PCP - General Internal Medicine 03/26/18 Andre Parnell, DO [address] [place] [address] Hematology/Oncology 05/03/22 Goggles Assembler Relationship Specialty Start Date End Date Harjeet Bernard MD [address] [facility] [place] [address] PCP - General Internal Medicine 03/26/18 Andre Parnell, DO [address] [place] [address] Hematology/Oncology 05/03/22 Team Status: Active Member Role Status Dates Nicolasa Savage Family Provider Active Dr. Harjeet Bernard MD Primary Care Provider Active Team Status: Inactive Member Role Status Dates Dr. Harjeet Bernard MD Primary Care Provider Active SHARON VILLARREAL Attending Provider Active Goggles Assembler Relationship Specialty Start Date End Date Harjeet Bernard MD [address] [facility] [place] [address] PCP - General Internal Medicine 03/26/18 Andre Parnell, DO [address] [place] [address] Hematology/Oncology 05/03/22 Goggles Assembler Relationship Specialty Start Date End Date Harjeet Bernard MD [address] [place] [address] PCP - General Internal Medicine 03/26/18 Andre Parnell, DO [address] [facility] [place] [address] Hematology/Oncology 05/03/22 Goggles Assembler Relationship Specialty Start Date End Date Harjeet Bernard MD [address] [facility] [place] [address] PCP - General Internal Medicine 03/26/18 Andre Parnell, DO [address] [place] [address] Hematology/Oncology 05/03/22 Goggles Assembler Relationship Specialty Start Date End Date Harjeet Bernard MD [address] [facility] [place] [address] PCP - General Internal Medicine 03/26/18 Andre Parnell DO [address] [facility] [place] [address] Hematology/Oncology 05/03/22 Goggles Assembler Relationship Specialty Start Date End Date Harjeet Bernard MD [address] [facility] [place] [address] PCP - General Internal Medicine 03/26/18 Andre Parnell DO [address] [facility] [place] [address] Hematology/Oncology 05/03/22 Goggles Assembler Relationship Specialty Start Date End Date Harjeet Bernard MD [address] [facility] [place] [address] PCP - General Internal Medicine 03/26/18 Andre Parnell DO [address] [facility] [place] [address] Hematology/Oncology 05/03/22 Goggles Assembler Relationship Specialty Start Date End Date Harjeet Bernard MD [address] [facility] [place] [address] PCP - General Internal Medicine 03/26/18 Andre Parnell DO [address] [facility] [place] [address] Hematology/Oncology 05/03/22 Goggles Assembler Relationship Specialty Start Date End Date Harjeet Bernard MD [address] [facility] [place] [address] PCP - General Internal Medicine 03/26/18 Andre Parnell DO [address] [facility] [place] [address] Hematology/Oncology 05/03/22 Goggles Assembler Relationship Specialty Start Date End Date Harjeet Bernard MD [address] [facility] [place] [address] PCP - General Internal Medicine 03/26/18 Andre Parnell DO [address] [facility] [place] [address] Hematology/Oncology 05/03/22 Goggles Assembler Relationship Specialty Start Date End Date Harjeet Bernard MD [address] [facility] [place] [address] PCP - General Internal Medicine 03/26/18 Andre Parnell DO [address] [facility] [place] [address] Hematology/Oncology 05/03/22 Goggles Assembler Relationship Specialty Start Date End Date Harjeet Bernard MD [address] [facility] [place] [address] PCP - General Internal Medicine 03/26/18 Andre Parnell DO [address] [facility] [place] [address] Hematology/Oncology 05/03/22 Goggles Assembler Relationship Specialty Start Date End Date Harjeet Bernard MD [address] [facility] [place] [address] PCP - General Internal Medicine 03/26/18 Andre Parnell DO [address] [facility] [place] [address] Hematology/Oncology 05/03/22 Goggles Assembler Relationship Specialty Start Date End Date Harjeet Bernard MD [address] [facility] [address] PCP - General Internal Medicine 03/26/18 Andre Parnell DO [address] [place] [address] Hematology/Oncology 05/03/22 Goggles Assembler Relationship Specialty Start Date End Date Harjeet Bernard MD [address] [facility] [place] [address] PCP - General Internal Medicine 03/26/18 Andre Parnell DO [address] [place] [address] Hematology/Oncology 05/03/22 Goggles Assembler Relationship Specialty Start Date End Date Harjeet Bernard MD [address] [place] [address] PCP - General Internal Medicine 03/26/18 Andre Parnell DO [address] [place] [address] Hematology/Oncology 05/03/22 Goggles Assembler Relationship Specialty Start Date End Date Harjeet Bernard MD [address] [place] [address] PCP - General Internal Medicine 03/26/18 Andre Parnell DO [address] [place] [address] Hematology/Oncology 05/03/22 Goggles Assembler Relationship Specialty Start Date End Date Harjeet Bernard MD [address] [place] [address] PCP - General Internal Medicine 03/26/18 Andre Parnell DO [address] [place] [address] Hematology/Oncology 05/03/22 Goggles Assembler Relationship Specialty Start Date End Date Harjeet Bernard MD [address] [place] [address] PCP - General Internal Medicine 03/26/18 Andre Parnell DO [address] [place] [address] Hematology/Oncology 05/03/22 Goggles Assembler Relationship Specialty Start Date End Date Harjeet Bernard MD [address] [place] [address] PCP - General Internal Medicine 03/26/18 Andre Parnell DO [address] [place] [address] Hematology/Oncology 05/03/22 Julissa Ugarte APRN.CNS [address] [place] [address] [facility] Internal Medicine 09/07/24 Meri Menendez APRN.BREAD DOUGH MIXER [address] [place] [address] [facility] Internal Medicine 09/07/24 Goggles Assembler Relationship Specialty Start Date End Date Harjeet Bernard MD [address] [place] [address] PCP - General Internal Medicine 03/26/18 Andre Parnell DO [address] [place] [address] Hematology/Oncology 05/03/22 Julissa Ugarte, DIRECTOR [employer].INS[employer]OR [employer] [address] [place] [address] [facility] Internal Medicine 09/07/24 Meri Menendez DIRECTOR [employer]IO [employer].BREAD DOUGH MIXER [address] [place] [address] [facility] Internal Medicine 09/07/24 Goggles Assembler Relationship Specialty Start Date End Date Harjeet Bernard MD [address] [place] [address] PCP - General Internal Medicine 03/26/18 Andre Parnell DO [address] [place] [address] Hematology/Oncology 05/03/22 Julissa Ugarte, DIRECTOR [employer].INS[employer]OR [employer] [address] [place] [address] [facility] Internal Medicine 09/07/24 Meri Menendez APRN.BREAD DOUGH MIXER [address] [place] [address] Supervisor Assembly Room Internal Medicine 09/07/24 Goggles Assembler Relationship Specialty Start Date End Date Harjeet Bernard MD [address] [facility] [place] [address] PCP - General Internal Medicine 03/26/18 Andre Parnell DO [address] [place] [place] [address] Hematology/Oncology 05/03/22 Julissa Ugarte APRN.INSPECTOR [employer] [address] [facility] [address] Supervisor Assembly Room Internal Medicine 09/07/24 Meri Menendez APRN.BREAD DOUGH MIXER [address] [place] [address] Supervisor Assembly Room Internal Medicine 09/07/24 Goggles Assembler Relationship Specialty Start Date End Date Harjeet Bernard MD [address] [place] [address] PCP - General Internal Medicine 03/26/18 Andre Parnell DO [address] [place] [place] [address] Hematology/Oncology 05/03/22 Julissa Ugarte APRN.INSPECTOR [employer] [address] [place] [address] Supervisor Assembly Room Internal Medicine 09/07/24 Meri Menendez APRN.BREAD DOUGH MIXER [address] [facility] [address] Supervisor Assembly Room Internal Medicine 09/07/24 Goggles Assembler Relationship Specialty Start Date End Date Harjeet Bernard MD [address] [place] [address] PCP - General Internal Medicine 03/26/18 Andre Parnell DO [address] [place] [address] Hematology/Oncology 05/03/22 Julissa Ugarte APRN.INSPECTOR [employer] [address] [place] [address] Supervisor Assembly Room Internal Medicine 09/07/24 Meri Menendez APRN.BREAD DOUGH MIXER [address] [place] [address] Supervisor Assembly Room Internal Medicine 09/07/24 Goggles Assembler Relationship Specialty Start Date End Date Harjeet Bernard MD [address] [place] [address] PCP - General Internal Medicine 03/26/18 Andre Parnell DO [address] [place] [address] Hematology/Oncology 05/03/22 Julissa Ugarte DIRECTOR [employer].INS[employer] [address] [place] [address] Supervisor Assembly Room Internal Medicine 09/07/24 Meri Menendez APRN.BREAD DOUGH MIXER [address] [place] [address] Supervisor Assembly Room Internal Medicine 09/07/24 Goggles Assembler Relationship Specialty Start Date End Date Harjeet Bernard MD [address] [place] [address] PCP - General Internal Medicine 03/26/18 Andre Parnell DO [address] [place] [address] Hematology/Oncology 05/03/22 Julissa Ugarte, DIRECTOR [employer].INS[employer] [address] [place] [address] Supervisor Assembly Room Internal Medicine 09/07/24 Meri Menendez DIRECTOR [employer].BREAD DOUGH MIXER [address] [place] [address] Supervisor Assembly Room Internal Medicine 09/07/24 Goggles Assembler Relationship Specialty Start Date End Date Harjeet Bernard MD [address] [place] [address] PCP - General Internal Medicine 03/26/18 Andre Parnell DO [address] [place] [address] Hematology/Oncology 05/03/22 Julissa Ugarte, DIRECTOR [employer].INS[employer] [address] [place] [address] [facility] Internal Medicine 09/07/24 Meri Menendez DIRECTOR [employer] NEWS.BREAD DOUGH MIXER [address] [place] [address] Supervisor Assembly Room Internal Medicine 09/07/24 Goggles Assembler Relationship Specialty Start Date End Date Harjeet Bernard MD [address] [facility] [address] PCP - General Internal Medicine 03/26/18 Andre Parnell DO [address] [place] [address] Hematology/Oncology 05/03/22 Julissa Ugarte, DIRECTOR [employer] NEWS.INS[employer]OR [employer] [address] [facility] [place] [address] Supervisor Assembly Room Internal Medicine 09/07/24 Meri Menendez DIRECTOR [employer]IO NEWS.BREAD DOUGH MIXER [address] [facility] [address] Supervisor Assembly Room Internal Medicine 09/07/24 Goggles Assembler Relationship Specialty Start Date End Date Harjeet Bernard MD [address] [facility] [place] [address] PCP - General Internal Medicine 03/26/18 Andre Parnell DO [address] [place] [address] Hematology/Oncology 05/03/22 Julissa Ugarte, DIRECTOR [employer].INS[employer]OR [employer] [address] [facility] [place] [address] Supervisor Assembly Room Internal Medicine 09/07/24 Team Status: Active Member Role Status Dates Dr. Harjeet Bernard MD Primary Care Provider Active Team Status: Active Member Role Status Dates Dr. Harjeet Bernard MD Primary Care Provider Active Start: November 26, 2024 Dr. Jose Harman MD Emergency Provider Active Sta rt: November 26, 2024 Dr. Ibrahima Doan DO Admit Provider Active Star t: November 26, 2024 Dr. Ibrahima Doan DO Attending Provider Active Start: November 26, 2024 Dr. Ibrahima Doan DO Other Provider Active Star t: November 26, 2024 Team Status: Inactive Member Role Status Dates Dr. Harjeet Bernard MD Primary Care Provider Active Start: November 27, 2024 End: November 29, 2024 Dr. Jose Harman MD Emergency Provider Active Sta rt: November 27, 2024 End: November 29, 2024 Dr. Ibrahima Doan DO Admit Provider Active Star t: November 27, 2024 End: November 29, 2024 Dr. Ibrahima Doan DO Other Provider Active Star t: November 27, 2024 End: November 29, 2024 Dr. Sara Quezada DO Attending Provider Active S tart: November 27, 2024 End: November 29, 2024 Team Status: Active Member Role Status Dates Dr. Harjeet Bernard MD Primary Care Provider Active Start: November 27, 2024 Dr. Jose Harman MD Emergency Provider Active Sta rt: November 27, 2024 Dr. Ibrahima Doan DO Admit Provider Active Star t: November 27, 2024 Dr. Ibrahima Doan DO Other Provider Active Star t: November 27, 2024 Dr. Sara Quezada DO Attending Provider Active S tart: November 27, 2024 Dr. Sara Quezada DO Other Provider Active Start : November 27, 2024 Team Status: Active Member Role Status Dates Dr. Harjeet Bernard MD Primary Care Provider Active Start: November 28, 2024 Dr. Jose Harman MD Emergency Provider Active Sta rt: November 28, 2024 Dr. Ibrahima Doan DO Admit Provider Active Star t: November 28, 2024 Dr. Ibrahima Doan DO Other Provider Active Star t: November 28, 2024 Dr. Sara Quezada DO Attending Provider Active S tart: November 28, 2024 Dr. Sara Quezada DO Other Provider Active Start : November 28, 2024 Team Status: Active Member Role Status Dates Dr. Harjeet Bernard MD Primary Care Provider Active Start: November 29, 2024 Dr. Jose Harman MD Emergency Provider Active Sta rt: November 29, 2024 Dr. Ibrahima Doan DO Admit Provider Active Star t: November 29, 2024 Dr. Ibrahima Doan , DO Other Provider Active Star t: November 29, 2024 Dr. Sara Quezada , DO Attending Provider Active S tart: November 29, 2024 Dr. Sara Quezada , DO Other Provider Active Start : November 29, 2024 Team Status: Active Member Role Status Dates Dr. Harjeet Bernard MD Primary Care Provider Active Start: December 15, 2024 Dr. Ibrahima Camarena , Emergency Provider Active Start: December 15, 2024 Dr. Mk Jc , Admit Provider Active S tart: December 15, 2024 Dr. Mk Jc , Attending Provider Active Start: December 15, 2024 Team Status: Inactive Member Role Status Dates Dr. Harjeet Bernard MD Primary Care Provider Active Start: December 15, 2024 End: December 16, 2024 Dr. Ibrahima Camarena , Emergency Provider Active Start: December 15, 2024 End: December 16, 2024 Dr. Mk Jc , Admit Provider Active S tart: December 15, 2024 End: December 16, 2024 Dr. Mk Jc DO Attending Provider Active Start: December 15, 2024 End: December 16, 2024 Team Status: Active Member Role Status Dates Dr. Harjeet Bernard MD Primary Care Provider Active Start: December 15, 2024 Dr. Ibrahima Camarena , Emergency Provider Active Start: December 15, 2024 Dr. Mk Jc , Admit Provider Active S tart: December 15, 2024 Dr. Mk Jc DO Attending Provider Active Start: December 15, 2024 Dr. Mk Jc , Other Provider Active S tart: December 15, 2024 Team Status: Active Member Role Status Dates Dr. Harjeet Bernard MD Primary Care Provider Active Start: December 16, 2024 Dr. Ibrahima Camarena , Emergency Provider Active Start: December 16, 2024 Dr. Mk Jc , Admit Provider Active S tart: December 16, 2024 Dr. Mk Jc , DO Other Provider Active S tart: December 16, 2024 Dr. Antonette Perera MD Attending Provider Active Start: December 16, 2024 Goggles Assembler Relationship Specialty Start Date End Date Harjeet Bernard MD [address] [place] [address] PCP - General Internal Medicine 03/26/18 Andre Parnell DO [address] [place] [address] Hematology/Oncology 05/03/22 Julissa Ugarte, DIRECTOR [employer].INSPECTOR [employer] [address] [place] [address] Supervisor Assembly Room Internal Medicine 09/07/24 Meri Menendez DIRECTOR [employer] NEWS.BREAD DOUGH MIXER [address] [facility] [place] [address] Supervisor Assembly Room Internal Medicine 12/22/24 Goggles Assembler Relationship Specialty Start Date End Date Harjeet Bernard MD [address] [place] [address] PCP - General Internal Medicine 03/26/18 Andre Parnell DO [address] [place] [address] Hematology/Oncology 05/03/22 Julissa Ugarte, DIRECTOR [employer] NEWS.INSPECTOR [employer] [address] [place] [address] Supervisor Assembly Room Internal Medicine 09/07/24 Meri Menendez DIRECTOR [employer].BREAD DOUGH MIXER [address] [place] [address] Supervisor Assembly Room Internal Medicine 12/22/24 Goggles Assembler Relationship Specialty Start Date End Date Harjeet Bernard MD [address] [facility] [place], [place] [address] PCP - General Internal Medicine 03/26/18 Andre Parnell DO [address] [place], [place] [address] Hematology/Oncology 05/03/22 Julissa Ugarte APRN.INSPECTOR [employer] [address] [facility] [place], [place] [address] Supervisor Assembly Room Internal Medicine 09/07/24 Meri Menendez APRN.BREAD DOUGH MIXER [address] [facility], [place] [address] Supervisor Assembly Room Internal Medicine 12/22/24 Team Status: Active Member Role Status Dates Dr. Harjeet Bernard MD Primary Care Provider Active Start: December 16, 2024 Dr. Ibrahima Camarena , Emergency Provider Active Start: December 16, 2024 Dr. Mk Jc , Admit Provider Active S tart: December 16, 2024 Dr. Mk Jc , DO Attending Provider Active Start: December 16, 2024 Dr. Mk Jc , DO Other Provider Active S tart: December 16, 2024 Team Status: Inactive Member Role Status Dates Dr. Harjeet Bernard MD Primary Care Provider Active Start: January 15, 2025 End: January 15, 2025 Dr. Iker Richards DO Referring Provider Activ e Start: January 15, 2025 End: January 15, 2025 Dr. Iker Richards DO Emergency Provider Activ e Start: January 15, 2025 End: January 15, 2025 Goggles Assembler Relationship Specialty Start Date End Date Harjeet Bernard MD [address] [facility] [place], [place] [address] PCP - General Internal Medicine 03/26/18 Andre Parnell DO [address] [place] [address] Hematology/Oncology 05/03/22 Julissa Ugarte, DIRECTOR [employer].INSPECTOR [employer] [address] [place] [address] Supervisor Assembly Room Internal Medicine 09/07/24 Meri Menendez, DIRECTOR [employer] NEWS.BREAD DOUGH MIXER [address] [place] [address] Supervisor Assembly Room Internal Medicine 12/22/24 Goggles Assembler Relationship Specialty Start Date End Date Harjeet Bernard MD [address] [place] [address] PCP - General Internal Medicine 03/26/18 Andre Parnell DO [address] [place] [address] Hematology/Oncology 05/03/22 Julissa Ugarte, DIRECTOR [employer] NEWS.INSPECTOR [employer] [address] [place] [address] Supervisor Assembly Room Internal Medicine 09/07/24 Meri Menendez DIRECTOR [employer]IO NEWS.BREAD DOUGH MIXER [address] [place] [address] Supervisor Assembly Room Internal Medicine 12/22/24 Goggles Assembler Relationship Specialty Start Date End Date Harjeet Bernard MD [address] [place] [address] PCP - General Internal Medicine 03/26/18 Andre Parnell DO [address] [place] [address] Hematology/Oncology 05/03/22 Julissa Ugarte, DIRECTOR [employer].INS[employer]OR [employer] [address] [place] [address] Supervisor Assembly Room Internal Medicine 09/07/24 Meri Menendez DIRECTOR [employer] NEWS.BREAD DOUGH MIXER [address] [place] [address] Supervisor Assembly Room Internal Medicine 09/07/24 12/18/24 Meri Menendez DIRECTOR [employer] NEWS.BREAD DOUGH MIXER [address] [place] [address] [facility] Internal Medicine 12/22/24 Goggles Assembler Relationship Specialty Start Date End Date Harjeet Bernard MD [address] [place] [address] PCP - General Internal Medicine 03/26/18 Andre Parnell DO [address] [place] [address] Hematology/Oncology 05/03/22 Julissa Ugarte, DIRECTOR [employer] NEWS.INSPECTOR [employer] [address] [place] [address] Supervisor Assembly Room Internal Medicine 09/07/24 02/16/25 Meri Menendez APRN.BREAD DOUGH MIXER [address] [place] [address] [facility] Internal Medicine 12/22/24 (unrecognized sect ion and content) No Status Records FoundNo Status Records FoundNo Status Records Found INFORMATION SOURCE (unrecogn ized section and content) DATE CREATED AUTHOR 07/04/2022 [facility] DATE CREATED AUTHOR AUTHOR'S ORGANIZ ATION 01/20/2025 [facility] DATE CREATED AUTHOR AUTHOR'S ORGANIZ ATION 03/27/2025 [facility] Goals (unrecognized section and content) Goals may be documented in a n alternate sectionGoals may be documented in an alternate section FOR RECORDS PERTAINING TO PATIENTS WHO ARE OR HAVE BEEN ENROLLED IN A CHEMICAL DEPENDENCY/SUBSTANCEABUSE PROGRAM, SOME INFORMATION MAY BE OMITTED. This clinical summary was aggregated from multiple sources. Caution should be exercised in using it in the provision of clinical care. This summary normalizes information from multiple sources, and as a consequence, information in this document may materially change the coding, format and clinical context of patient data. In addition, data may be omitted in some cases. CLINICAL DECISIONS SHOULD BE BASED ON THE PRIMARY CLINICAL RECORDS. [facility] [employer] provides no warranty or guarantee of the accuracy or completeness of information in this document.
[2025-03-28 13:53] LABS: Absolute Lymphocyte Count 0.55 X10^3/uL (0.83-4.51); Absolute Neutrophil Count 15.8 X10^3/uL (2.0-7.7); Basophil# 0.02 X10^3/uL; Basophil% 0.1 % (0-1); Eosinophil# 0.03 X10^3/uL; Eosinophils% 0.2 % (0-5); Hematocrit 35.9 % (40-54); Hemoglobin 12.1 g/dL (13.0-16.5); Lymphocyte # 0.55 X10^3/ul (0.83-4.51); Mean Corp Hgb Conc 33.7 g/dL (32-36); Mean Corpuscular Hgb 31.9 pg (27.0-32.0); Mean Corpuscular Volume 94.7 fL (80-94); Mean Platelet Vol. 8.8 fl (6.2-12.0); Monocyte# 1.73 X10^3/uL; Monocyte% 9.5 % (0-10); NRBC Flagged by Analyzer 0 % (0-5); Neutrophil # 15.77 X10^3/uL (2.7-7.7); Neutrophil % 86.7 % (47-70); POSITIVE DIFFERENTIAL YES; Platelet Count 367 K/mm3 (150-450); RBC Distribution Width CV 14.8 % (11.6-14.6); RBC Distribution Width SD 51.8 fl (35.1-43.9); Red Blood Count 3.79 M/mm3 (4.6-6.2); White Blood Count 18.2 K/mm3 (4.4-11.0)
[2025-03-28 13:54] LABS: Differential Indicated SCAN CRITERIA MET
[2025-03-28 14:16] VITALS: BP 105/71; PULSE 84; RESP 16; O2SAT 100
[2025-03-28] MEDS: 0.9% Normal Saline (1000mL) 1,000 ML 999 ML IV (14:16)
[2025-03-28 14:43] LABS: Anion Gap 15 (5-15); BUN 77 mg/dL (4-19); BUN/Creat Ratio 26.4 RATIO (10-20); Calcium,Total 9.1 mg/dL (7.6-11.0); Carbon Dioxide 10.3 mmol/L (21.0-32.0); Chloride 103 mmol/L (98-108); Creatinine, Serum 2.91 mg/dL (0.70-1.20); EST Glomerular Filtration Rate 25 (>60); Estimated Creatinine Clearance 33.56 ml/min (50-250); Glucose 121 mg/dL (70-99); Potassium 3.8 mmol/L (3.3-5.1); Sodium Level 128 mmol/L (133-145)
[2025-03-28 14:55] LABS: Differential Comment SCANNED; Platelet Estimate A (ADEQ)
[2025-03-28 15:26] VITALS: BP 106/70; PULSE 84; RESP 16; TEMP 36.8; O2SAT 98
== END 2025-03-28 15:30 | disposition home or self-care (01) ==
PROVIDERS: Emergency Provider Emergency Medicine; PCP Internal Medicine; Referring Provider Emergency Medicine; Visit Provider Emergency Medicine
DX: E86.0 Dehydration (principal); Z93.2 Ileostomy status; N18.9 Chronic kidney disease, unspecified; E87.1 Hypo-osmolality and hyponatremia; Z85.89 Personal history of malignant neoplasm of other organs and systems; Z90.81 Acquired absence of spleen; Z90.49 Acquired absence of other specified parts of digestive tract
CPT/HCPCS: 80048; 85025; 96360; 99284; A4216

== ENCOUNTER 2025-04-12 17:42 | Emergency (ER) | payer BC, SELFPAY ==
[2025-04-12 17:42] VITALS: BP 103/72; PULSE 98; RESP 16; TEMP 36.8; O2SAT 99; BMI 28.1
--- NOTE | 2025-04-12 21:01 | ED.VIS.LOWEX ---
HPI History of Present Illness Chief Complaint: Edema Narrative Narrative: 54-year-old male with no significant past medical history presents with swelling of his bilateral lower extremities with redness and patches. He denies any chest pain or shortness of breath, no fevers or chills. Past medical history does include chronic kidney disease for which he has an appointment with his stone and plate preparer apprentice tomorrow. He states that he works and is on his feet all day. He noticed that his left leg became swollen over the weekend, over the past 2 days. Then today, his right leg became swollen, and he noticed redness to. His legs feel swollen and tight. He denies any exacerbating or alleviating factors. He states he has had leg swelling in the past, but previously when he would elevate his legs, the swelling would subside. No history of congestive heart failure. [facility] Medical History Dehydration Acute kidney injury Cancer of appendix Ileostomy present Acute appendicitis Home Medications ?Medication ?Instructions ?Recorded ?Last Taken ?Type bupropion HCl 150 mg tablet,12 hr 150 mg PO DAILY 05/04/24 12/15/24 History sustained-release fluvoxamine 150 mg 150 mg PO DAILY 05/04/24 12/15/24 History capsule,extended release 24 hr ondansetron 8 mg disintegrating 8 mg PO Q8H PRN nausea and 05/04/24 Unknown Rx tablet vomiting #20 tabs omeprazole 20 mg capsule,delayed 20 mg PO DAILY 11/26/24 12/15/24 History release psyllium husk 3 gram oral powder 1 packet PO TID #54 ea 11/29/24 12/15/24 Rx packet (Daily Fiber (psyllium-aspartame)) dicyclomine 20 mg tablet 20 mg PO .QID PRN diarrhea #20 tabs 12/16/24 Unknown Rx diphenoxylate-atropine 2.5 2 tab PO Q6H PRN diarrhea #30 tabs 12/16/24 Unknown Rx mg-0.025 mg tablet (Lomotil) amoxicillin 875 mg-potassium 875 mg PO Q12H #20 TABLETS 04/12/25 Unknown Rx clavulanate 125 mg tablet Allergy/AdvReac Type Severity Reaction Status Date / Time No Known Allergies Allergy Verified 04/12/25 17:46 Family History Other VTE (venous thromboembolism) Surgical History S/P splenectomy H/O colectomy Social History household members: spouse housing: house Smoking Status: Never smoker ROS ROS ED ROS Narrative Review of systems positive for bilateral lower extremity swelling with redness. No fevers or chills, no chest pain, no shortness of breath. No purulent drainage. EXAM Physical Exam Narrative Exam Narrative: Afebrile. Vital signs noted. Nontoxic-appearing. Cardiovascular examination reveals a regular rate and rhythm. Lungs are clear to auscultation bilaterally. The abdomen is soft and nontender with positive bowel sounds. Inspection of the bilateral lower extremities does show lymphedema with mild erythema that appears more patchy in the anterior tibial areas and in various areas throughout the lower extremities. He does have palpable dorsalis pedis pulses bilaterally. Const Vital Signs: 04/12/25 17:42 04/12/25 22:00 04/12/25 22:37 Temperature 98.2 F 97.0 F L Temperature Source Oral Pulse Rate 98 94 73 Respiratory Rate 16 20 H 18 Blood Pressure 103/72 113/88 H 127/84 H Blood Pressure Mean 82 96 98 Pulse Ox 99 94 100 Oxygen Delivery Method Room Air MDM MDM MDM Narrative Medical decision making narrative: The differential diagnosis does include peripheral edema versus lymphedema versus cellulitis versus DVT. History and physical does not support DVT and it is bilateral as well. No recent trauma or breaks in skin. He is afebrile here and hemodynamically stable with a pulse ox of 99% on room air. Ultrasound will be obtained of the bilateral lower extremities and CBC, BMP, and BNP obtained as well. I doubt congestive heart failure because it started unilaterally first. I reviewed his laboratory work and he has normal white count of 8.8, positive anemia of 8.6 with hematocrit 26.6. I do not feel he requires an emergent transfusion. Platelet count slightly elevated at 465 which may be an acute phase reactant. Sodium normal at 139 with potassium 4.8, chloride 107 with CO2 of 19.3. Glucose 87. BNP is elevated at 1046. His creatinine is elevated at 1.94 and when compared to prior labs, this is around his baseline and has been as high as 3. His BNP might be elevated secondary to his chronic kidney failure. I reviewed the radiology report of the ultrasound of the bilateral lower extremities. While there is no DVT he does have superficial thrombophlebitis of the greater saphenous vein. I discussed the patient with Dr. Weems with cardiology. Given the patient's renal failure, was not suggested that he be started on Lasix for his edema. Rather, he suggested outpatient echocardiogram and follow-up with cardiology as needed. Results should go to his primary care provider initially. He was told of the superficial thrombophlebitis, and additionally he will be treated as a cellulitis. He was given his first dose of Augmentin here in the emergency department and prescription written. I do not feel he requires observation or admission and the patient wants to follow-up with nephrology tomorrow. He was told he may need follow-up with lymphedema clinic as well. He should follow-up with his primary care provider in the next 3 to 5 days. Return instructions to the emergency department were reviewed. Disposition is discharged home in stable condition. History & Record Review Discussion w/independent historian: Patient Additional record(s) reviewed:: Prior labs Lab Data Attestation: I reviewed the patient's lab results. Labs: Laboratory Results - last 24 hr 04/12/25 21:12 WBC 8.8 RBC 2.75 L Hgb 8.6 L Hct 26.6 L MCV 96.7 H MCH 31.3 MCHC 32.3 RDW Std Deviation 52.8 H RDW Coeff of Dirk 14.7 H Plt Count 465 H MPV 9.2 Immature Gran % (Auto) 0.500 Neut % (Auto) 69.8 Lymph % (Auto) 16.9 L Ransom % (Auto) 11.2 H Eos % (Auto) 1.1 Baso % (Auto) 0.5 Absolute Neuts (auto) 6.1 Absolute Lymphs (auto) 1.48 Nucleated RBC % 0 Sodium 139 Potassium 4.8 Chloride 107 Carbon Dioxide 19.3 L Anion Gap 13 BUN 29 H Creatinine 1.94 H Estim Creat Clear Calc 54.61 Est GFR (MDRD) Non-Af 41 L BUN/Creatinine Ratio 15.0 Glucose 87 Calcium 7.4 L NT pro BNP II 1046 H Radiography Diagnostic Testing: Clinical Impression(s) from Imaging Studies Venous Duplex 04/12/25 21:02 IMPRESSION: Superficial thrombophlebitis seen within the right GSV. No acute occlusive deep vein thrombosis within bilateral lower extremities. Reading Location: [facility] Management Discussion w/another healthcare provider: [employer] (Dr. Weems, cardiology) Discharge Plan Triage Chief Complaint: Edema ED Provider: Nathen Walker Dx/Rx/DC Orders Clinical Impression: Edema, Cellulitis, Superficial thrombophlebitis Instructions: ED Cellulitis, ED Peripheral Edema, Bilateral, ED Lymphedema Prescriptions: New amoxicillin-pot clavulanate 875-125 mg tablet 875 mg PO Q12H Qty: 20 0RF No Action bupropion HCl 150 mg tablet sustained-release 12 hr 150 mg PO DAILY Patient Comments: [NO ORIGINAL SIG] fluvoxamine 150 mg capsule,extended release 24hr 150 mg PO DAILY Patient Comments: [NO ORIGINAL SIG] ondansetron 8 mg tablet,disintegrating 8 mg PO Q8H PRN (Reason: nausea and vomiting) Qty: 20 0RF omeprazole 20 mg capsule,delayed release(DR/EC) 20 mg PO DAILY Daily Fiber (psyllium-aspart) 3 gram Powder In Packet 1 packet PO TID Qty: 54 0RF diphenoxylate-atropine [Lomotil] 2.5-0.025 mg tablet 2 tab PO Q6H PRN (Reason: diarrhea) Qty: 30 0RF dicyclomine 20 mg tablet 20 mg PO .QID PRN (Reason: diarrhea) Qty: 20 0RF Other Ambulatory Orders: Echo Complete (Routine) Timeframe: 3 Days Facility: [facility] - Location: [facility] Ordered By: Nathen Walker Primary Care Provider: Diandra Gonzales Referrals: Diandra Gonzales MD [Primary Care Provider] - 3-5 Days Activity Restrictions/Additional Instructions: Take the antibiotic as directed. Your bilateral lower extremity swelling may be secondary to your kidney disease. Make sure you show your stone and plate preparer apprentice. Warm compresses to your right lower leg when possible. You may want to start aspirin for your superficial thrombophlebitis. You may also need follow-up with lymphedema clinic. Take all of the antibiotics as directed. Return with new or worsening symptoms. Have an echocardiogram performed as an outpatient within the next few days. You may need to follow-up with cardiology. You can follow-up with Dr. Weems as needed or ask your primary care provider for referral if needed. Print Language: Guinean Disposition Disposition: Home, Self Care Discharge Date/Time: 04/12/25 22:38
--- NOTE | 2025-04-12 21:02 | US_ITS ---
PROCEDURE: VENOUS DUPLEX IMAG/HUGH EXTREM 04/12/2025 REASON FOR EXAM: Bilateral lower extremity swelling TECHNIQUE: VENOUS DUPLEX IMAG/HUGH EXTREM COMPARISON: None FINDINGS: There is no intraluminal echogenicity to suggest the presence of a deep venous thrombosis. Appropriate respiratory variation, augmentation and venous compression is noted. Superficial thrombophlebitis seen within the right GSV. US/Venous Duplex Imag/Hugh Extrem IMPRESSION: Superficial thrombophlebitis seen within the right GSV. No acute occlusive deep vein thrombosis within bilateral lower extremities. Reading Location: [id number]
[2025-04-12 21:31] LABS: Hematocrit 26.6 % (40-54); Hemoglobin 8.6 g/dL (13.0-16.5); Immature Granulocytes Count 0.040 X10^3/uL (0.0-0.0); Mean Corp Hgb Conc 32.3 g/dL (32-36); Mean Corpuscular Volume 96.7 fL (80-94); Mean Platelet Vol. 9.2 fl (6.2-12.0); NRBC Flagged by Analyzer 0 % (0-5); Platelet Count 465 K/mm3 (150-450); RBC Distribution Width CV 14.7 % (11.6-14.6); RBC Distribution Width SD 52.8 fl (35.1-43.9); Red Blood Count 2.75 M/mm3 (4.6-6.2); White Blood Count 8.8 K/mm3 (4.4-11.0)
[2025-04-12 21:55] LABS: Pro- Brain NATRIURETIC PEPTIDE 1046 pg/mL (<=900)
[2025-04-12 21:57] LABS: Anion Gap 13 (5-15); BUN 29 mg/dL (4-19); BUN/Creat Ratio 15.0 RATIO (10-20); Calcium,Total 7.4 mg/dL (7.6-11.0); Carbon Dioxide 19.3 mmol/L (21.0-32.0); Chloride 107 mmol/L (98-108); Estimated Creatinine Clearance 54.61 ml/min (50-250); Glucose 87 mg/dL (70-99); Potassium 4.8 mmol/L (3.3-5.1)
[2025-04-12 22:00] VITALS: BP 113/88; PULSE 94; RESP 20; O2SAT 94
[2025-04-12 22:37] VITALS: BP 127/84; PULSE 73; RESP 18; TEMP 36.1; O2SAT 100
== END 2025-04-12 22:38 | disposition home or self-care (01) ==
PROVIDERS: Emergency Provider Emergency Medicine; PCP Internal Medicine; Visit Provider Emergency Medicine
DX: R60.0 Localized edema (principal); L03.90 Cellulitis, unspecified; D64.9 Anemia, unspecified; N18.9 Chronic kidney disease, unspecified; I80.01 Phlebitis and thrombophlebitis of superficial vessels of right lower extremity
CPT/HCPCS: 80048; 83880; 85025; 93970; 99282; A4216

== ENCOUNTER 2025-05-20 06:35 | Inpatient (IN) | payer BC, SELFPAY ==
[2025-05-20] VITALS (7 sets, daily range): BP systolic 118–133; BP diastolic 68–87; PULSE 78–106; RESP 12–18; TEMP 36.5–36.9; O2SAT 98–100; BMI 25.4; BMI 25.0
[2025-05-20] MEDS: 0.9% Normal Saline (1000mL) 1,000 ML 999 ML IV ×2 (06:54→07:47)
[2025-05-20 06:57] LABS: Hematocrit 39.5 % (40-54); Hemoglobin 12.6 g/dL (13.0-16.5); Immature Granulocytes Count 0.060 X10^3/uL (0.0-0.0); Mean Corp Hgb Conc 31.9 g/dL (32-36); Mean Corpuscular Volume 94.3 fL (80-94); Mean Platelet Vol. 8.7 fl (6.2-12.0); NRBC Flagged by Analyzer 0 % (0-5); Platelet Count 523 K/mm3 (150-450); RBC Distribution Width CV 13.6 % (11.6-14.6); RBC Distribution Width SD 46.9 fl (35.1-43.9); Red Blood Count 4.19 M/mm3 (4.6-6.2); White Blood Count 14.8 K/mm3 (4.4-11.0)
--- OUTSIDE RECORDS SUMMARY | 2025-05-20 07:05 | XMS RPT_ITS | CCD ---
Author Organization [facility]iniSy[facility] Care Team Providers Care Team Leader Surgery Name Role Phone Harjeet Bernard MD Primary Care Provider Andre Parnell DO Unavailable Harjeet Bernard MD Primary Care Provider Andre Parnell DO Unavailable Graciela Weeks RN Unavailable AGUS KOHLER Admitting Unavailable AGUS KOHLER Attending Unavailable HARJEET BERNARD Primary Care Unavailable Harjeet Bernard MD Primary Care Provider Andre Parnell DO Unavailable Harjeet Bernard MD Primary Care Provider Ugarte PATIENT FLOW COORDINATOR.LITERACY EDUCATION PROFESSOR, Julissa Unavailable Shon PATIENT FLOW COORDINATOR.INFANTRY WEAPONS CREWMEMBER, Meri Unavailable Shon PATIENT FLOW COORDINATOR.INFANTRY WEAPONS CREWMEMBER, Meri Unavailable Dr. Harjeet Bernard MD Primary Care Provider [phone] Dr. Jose Harman MD Emergency Provider Dr. Ibrahima Doan DO Admit Provider Dr. Ibrahima Doan DO Attending Provider Dr. Ibrahima Doan DO Other Provider Dr. Sara Quezada DO Attending Provider Dr. Sara Quezada DO Other Provider Dr. Ibrahima Camarena DO Emergency Provider Dr. Mk Jc DO Admit Provider Hosea FARIAS, Dr. Terrazas Attending Provider Hosea FARIAS, Dr. Terrazas Other Provider Dilma MEZA, Dr. Antonette Galaviz Attending Provider Shon PATIENT FLOW COORDINATOR.INFANTRY WEAPONS CREWMEMBER, Meri Unavailable Susie FARIAS, Dr. Dong Referring Provider Susie FARIAS, Dr. Dong Emergency Provider Shon PATIENT FLOW COORDINATOR.INFANTRY WEAPONS CREWMEMBER, Meri Unavailable Ugarte PATIENT FLOW COORDINATOR.LITERACY EDUCATION PROFESSOR, Julissa Unavailable Marco Antonio MEZA, Dr. Harjeet Cueva Primary Care Provider [phone] Kimani MEZA, Dr. Garcia Emergency Provider Olimpia FARIAS, Dr. Alexandra Admit Provider Olimpia FARIAS, Dr. Alexandra Other Provider Damien FARIAS, Dr. Ruiz Other Provider Susie FARIAS, Dr. Dong Attending Provider Kavon MEZA, Dr. Dahl Referring Provider Kavon MEZA, Dr. Dahl Emergency Provider Dow PATIENT FLOW COORDINATOR.LITERACY EDUCATION PROFESSOR, Julissa Unavailable Dr. Harjeet Bernard MD Primary Care Provider Dr. Hesham Jacobson MD Attending Provider Nathen Walker MD Emergency Provider Lissa Bernarda Anay Primary Care Unavailable Nathen Walker Attending Unavailable Harjeet Bernard Primary Care Unavailable Ish Avendaño Attending Unavailable Harjeet Bernard Primary Care Unavailable Hesham Jacobson Referring Unavailable Hesham Jacobson Attending Unavailable Harjete Bernard Primary Care Unavailable Mk Jc Admitting Unavailable Mk Jc Attending Unavailable Ibrahima Doan Consulting Unavailable Ibrahima Doan Admitting Unavailable Marco Antonio Harjeet Anay Primary Care Unavailable Sara Quezada Attending Unavailable Talampas, Harjeet D Primary Care Unavailable Klusty-Ivan, Iker Referring Unavailabl e Klusty-Ivan, Iker Attending Unavailabl e Talampas, Harjeet D Primary Care Unavailable Tereletsky, Mk Admitting Unavailable Tereletsky, Mk Attending Unavailable NallelyeletskyMk Consulting Unavailable Jopperi, Ibrahima Attending Unavailable Jopperi, Ibrahima Consulting Unavailable Talampas, Harjeet D Primary Care Unavailable Jopperi, Ibrahima Admitting Unavailable Jopperi, Ibrahima Consulting Unavailable Talampas, Harjeet D Primary Care Unavailable Sara Quezada Attending Unavailable Jopperi, Ibrahima Admitting Unavailable Sara Quezada Consulting Unavailable TALAMPAS, HARJEET D Attending Unavailable TALAMPAS, HARJEET D Primary Care Unavailable TALAMPAS, HARJEET D Primary Care Unavailable UGARTE, JULISSA Referring Unavailable TALAMPAS, HARJEET D Primary Care Unavailable UGARTE, JULISSA Referring Unavailable TALAMPAS, HARJEET D Referring Unavailable TALAMPAS, HARJEET D Primary Care Unavailable TALAMPAS, HARJEET D Primary Care Unavailable ASHAI I, NELLY Referring Unavailable TALAMPAS, HARJEET D Referring Unavailable TALAMPAS, HARJEET D Primary Care Unavailable TALAMPAS, HARJEET D Referring Unavailable TALAMPAS, HARJEET D Primary Care Unavailable TALAMPAS, HARJEET D Primary Care Unavailable KELLEN SALGUERO Attending Unavailable TALAMPAS, HARJEET D Primary Care Unavailable ASHAI I, NELLY Referring Unavailable TALAMPAS, HARJEET D Referring Unavailable TALAMPAS, [...] HARJEET D Referring Unavailable TALAMPAS, HARJEET D Referring Unavailable TALAMPAS, HARJEET D Primary Care Unavailable TALAMPAS, HARJEET D Referring Unavailable TALAMPAS, HARJEET D Primary Care Unavailable TALAMPAS, HARJEET D Primary Care Unavailable KELLEN SALGUERO Referring Unavailable TALAMPAS, HARJEET D Referring Unavailable TALAMPAS, HARJEET D Primary Care Unavailable TALAMPAS, HARJEET D Referring Unavailable TALAMPAS, HARJEET D Primary Care Unavailable TALAMPAS, HARJEET D Primary Care Unavailable ASHAI I, NELLY Attending Unavailable NICOLASA DENISE Referring Unavailable TALAMPAS, HARJEET D Primary Care Unavailable NICOLASA DENISE Attending Unavailable TALAMPAS, HARJEET D Primary Care Unavailable HOWIENICOLASA Attending Unavailable TALAMPAS, HARJEET D Primary Care Unavailable UGARTE, JULISSA Attending Unavailable TALAMPAS, HARJEET D Referring Unavailable TALAMPAS, HARJEET D Primary Care Unavailable TALAMPAS, HARJEET D Primary Care Unavailable ASHAI I, NELLY Referring Unavailable TALAMPAS, HARJEET D Primary Care Unavailable TALAMPAS, HARJEET D Attending Unavailable TALAMPAS, HARJEET D Primary Care Unavailable ASHAI I, NELLY Referring Unavailable TALAMPAS, HARJEET D Referring Unavailable TALAMPAS, HARJEET D Primary Care Unavailable TALAMPAS, HARJEET D Referring Unavailable TALAMPAS, HARJEET D Primary Care Unavailable TALAMPAS, HARJEET D Primary Care Unavailable UGARTE, JULISSA Referring Unavailable TALAMPAS, HARJEET D Attending Unavailable TALAMPAS, HARJEET D Primary Care Unavailable TALAMPAS, HARJEET D Referring Unavailable TALAMPAS, HARJEET D Primary Care Unavailable TALAMPAS, HARJEET D Primary Care Unavailable ASHAI I, NELLY Referring Unavailable Medications Current Medications Medication Drug Class(es) Dates Sig (Normalized) Sig (Original) amoxicillin 875 mg / clavulanate 125 mg oral tablet (8 sources) Penicillin-class Antibacterial Start: 04-12-2025 take 1 tablet by mouth twice daily amoxicillin-clav ulanate potassium (AUGMENTIN) 875-125 mg per tablet Take 875 mg by mouth two times a day. 04/12/2025 Active Start: 04-12-2025 take 1 tablet by mateo th every twelve hours Amoxicillin-Pot Clavulanate 875-125 mg tablet Active 875 mg PO Q12H 20 April 12, 2025 12:00am atropine sulfate 0.025 mg / diphenoxylate hydrochloride 2.5 mg oral tablet (20 sources) Anticholinergic, Cholinergic Muscarinic Antagonist, Antidiarrheal Start: 05-17-2025 End: 11-13-2025 take 2 tablets by mouth four times daily diphenoxylate-atropine (LOMOTIL) 2.5-0.025 mg per tablet Indications: Dehydration Take 2 tablets by mouth four times daily for 180 days. 240 tablet 5 05/17/2025 11/13/2025 Active Start: 01-15-2025 End: 04-15-2025 take 2 tablets by mouth four times daily diphenoxylate-atropine (LOMOTIL) 2.5-0.025 mg per tablet Indications: Dehydration Take 2 tablets by mouth four times daily for 90 days. 240 tablet 2 01/15/2025 Active Start: 12-16-2024 End: 01-15-2025 Diphenoxylate-Atropine (Lomo til) 2.5-0.025 mg tablet Active 2 {tbl} PO EVERY 6 HOURS as needed for diarrhea 30 December 16, 2024 11:21am 12 hr buPROPion hydrochloride 150 mg extended [...] 1 tablet by mateo th twice daily. calcium acetate (2 sources) CALCIUM ACETATE PO Take by mouth. Active CPAP (20 sources) Start: 05-15-2024 CPAP Indications: [...] mg oral tablet (1 source) Benzodiazepine Start: 2 End: 2 take 1 tablet by mouth every eight [...] muscle spasm for up to 4 days. ferrous sulfate 325 mg oral tablet (20 sources) Start: 3 take 1 tablet by mouth every other [...] capsule (20 sources) Serotonin Reuptake Inhibitor Start: 4 End: 5 take 1 capsule by mouth once daily [...] on above: Take 1 capsule by mo [facility] daily at bedtime. Take 1 tablet by mateo th daily at bedtime. loperamide hydrochloride 2 mg oral capsule (20 sources) Opioid Agonist Start: End: take 2 capsules by mouth four times daily loperamide (IMODIUM) 2 mg cap(s) Take 2 capsules by mouth four times daily. 240 capsule 2 05/17/2025 08/15/2025 Active Start: 01-15-2025 End: 04-15-2025 take 2 capsules by mouth four times daily loperamide (IMODIUM) 2 mg cap(s) Take 2 capsules by mouth four times daily. 240 capsule 2 01/15/2025 Active Start: 11-29-2024 End: 01-15-2025 take 1 [...] PO Q12H as needed for DIARRHEA 60 0 November 29, 2024 1:00am December 16, 2024 [...] tablet by mateo th once daily. omeprazole 40 mg delayed release oral capsule (20 sources) Proton Pump Inhibitor Start: 04-19-2025 take 1 capsule by mouth once daily omeprazole (PRILOSEC) 40 mg capsule Take 1 capsule by mouth once daily. 90 capsule 3 04/19/2025 Active Start: 06-15-2024 End: 04-19-2025 take 1 capsule by mouth once daily omeprazole (PRILOSEC) 20 mg capsule Take 1 capsule by mouth once daily. 90 capsule 3 12/21/2024 04/19/2025 Discontinued ondansetron 8 mg oral tablet (20 sources) Serotonin-3 Receptor Antagonist Start: 06-15-2024 take 1 tablet by mouth every twelve [...] Q8H as needed for nausea and vomiting 20 0 May 04, 2024 12:00am Psyllium Husk (Aspartame) (Daily Fiber (Psyllium-Aspart)) 3 gram Powder In Packet (3 sources) Start: 11-29-2024 Psyllium Husk (Aspartame) (Daily Fiber (Psyllium-Aspart)) 3 gram Powder In Packet Active 1 NMA PO THREE TIMES A DAY 54 November 29, 2024 1:00am Psyllium Husk (Daily Fiber (Psyllium-Aspart)) 3 gram Powder In Packet (2 sources) Start: 11-29-2024 Psyllium Husk (Daily Fiber (Psyllium-Aspart)) 3 gram Powder In Packet Active 1 NMA PO THREE TIMES A DAY 54 0 November 29, 2024 1:00am sodium bicarbonate 650 mg oral tablet (10 sources) Start: 05-18-2025 take 1 tablet by mouth three times daily, then take 1 tablet by mouth twice daily sodium bicarbonate 650 mg tablet Indications: Metabolic acidosis Take 1 tablet by mouth three times a day. Take 1 tablet by mouth twice a day 270 tablet 3 05/18/2025 Active Start: 04-13-2025 End: 04-13-2025 take 1 tablet by mouth twice daily sodium bicarbonate 650 mg tablet Indications: Metabolic acidosis Take 1 tablet by mouth twice a day 180 tablet 2 04/13/2025 Active Completed/Discontinued Medications Medication Drug Class(es) Dates Sig [...] Take 1 tablet by mateo twice daily. dicyclomine hydrochloride 20 mg oral tablet (15 sources) Anticholinergic Start: 12-16-2024 End: 04-13-2025 take 1 tablet by mouth four times daily dicyclomine (BENTYL) 20 mg tablet Take 20 mg by mouth four times daily. 12/16/2024 04/13/2025 Discontinued (Discontinued by Patient) docusate sodium 100 mg oral capsule (16 sources) Start: 03-05-2022 take 1 capsule by mouth every twelve hours as needed docusate sodium (COLACE) 100 mg capsule Take 1 capsule by mouth twice daily as needed for constipation. 0 03/05/2022 Suspended Comment on above: Take 1 capsule by mo [facility] twice daily as needed for constipation. 0.8 [...] contrast administration guidelines link. polyethylene glycol 3350 818749 mg / potassium chloride 2970 mg / sodium bicarbonate 6740 mg / sodium chloride 5860 mg / sodium sulfate 54268 mg powder for oral solution (15 sources) Osmotic Laxative Start: 04-19-20 peg 3350-Electrolytes (GOLYTELY) 236-22.74-6.74 -5.86 gram suspension Refer to printed prep instructions from your provider. 4000 mL 0 04/19/2022 Suspended Comment on above: Refer to printed pre p instructions from your provider. potassium chloride 20 meq extended release oral tablet (14 sources) Start: 11-30-19 End: 12-22-19 take 1 tablet by mouth once daily Potassium Chloride 20 mEq tablet extended release Discontinued 20 meq PO DAILY 14 0 November 29, 2024 1:00am December 15, 2024 9:46am sertraline 100 mg oral tablet (20 sources) Serotonin Reuptake Inhibitor Start: 12-22-19 End: 04-05-20 take 1.5 tablets by mouth once daily sertraline (ZOLOFT) 100 mg tablet Indications: Recurrent major depressive disorder, in partial remission (HCC) Take 1.5 tablets by mouth once daily. 135 tablet 3 04/05/2023 Active Comment on above: Take 1.5 tablets by mouth once daily. 1000 ml sodium chloride 9 mg/ml injection (1 source) Start: 05-19-20 End: 05-19-20 1,000 mL, INTRAVENOUS, at 250 mL/hr, Administer over 4 Hours, NEEDED, Starting on Sat05/19/25 at 1151, Until Sat05/19/25 at 1807, See admin instructions, Every 2 to 3 weeks as needed for dehydration due to high output ileostomy Problems Active Problems Problem Classification Problem Date Documented Da te Episodic/Chronic Acute and unspecified renal failure (20 sources) Acute renal failure syndrome; Translations: [Acute kidney failure, unspecified] Onset: 5 12-04-2024 Episodic Anxiety disorders (20 sources) Anxiety state; Translations: [Generalized anxiety disorder] Onset: 6 02-18-2006 Chronic Bacterial infection; unspecified site (2 sources) Infection due to enterococcus; Translations: [Streptococcal infection, unspecified site] Episodic Biliary tract disease (2 sources) Leakage of bile; Translations: [Disease of biliary tract, unspecified] Chronic Cancer of other GI organs; peritoneum (2 sources) History of malignant neoplasm of appendix; Translations: [Personal history of malignant neoplasm of other digestive organs] 03-28-2025 Episodic Chronic kidney disease (20 sources) Chronic kidney disease stage 3B ; Translations: [Stage 3b chronic kidney disease (HCC)] Onset: 5 03-29-2025 Chronic Chronic kidney disease (1 source) Chronic kidney disease; Translations: [Stage 3b chronic kidney disease (HCC)] Onset: 5 Deficiency and other anemia (1 source) Anemia in chronic kidney disease; Translations: [Anemia in stage 4 chronic kidney disease (HCC)] Onset: 5 Chronic Deficiency and other anemia (3 sources) Iron deficiency anemia; Translations: [Iron deficiency anemia, unspecified] Episodic Deficiency and other anemia (1 source) Microcytic anemia; Translations: [Iron deficiency anemia, unspecified] Episodic Disorders of lipid metabolism (20 sources) Hypercholesterolemia; Translations: [Pure hypercholesterolemia, unspecified] Onset: 6 10-18-2018 Chronic Esophageal disorders (2 sources) Laryngopharyngeal reflux; Translations: [Gastro-esophageal reflux disease without esophagitis] Onset: 5 04-19-2025 Chronic Fluid and electrolyte disorders (20 sources) Hypovolemia; Translations: [Hypovolemia] Onset: 2 Resolved: 2 05-30-2022 Episodic Genitourinary symptoms and ill-defined conditions (2 sources) History of chronic renal impairment; Translations: [Personal history of other diseases of urinary system] 03-28-2025 Episodic Mood disorders (20 sources) Recurrent major depression in partial remission; Translations: [Major depressive disorder, recurrent, in partial remission] Onset: 8 Chronic Mycoses (1 source) Candidiasis; Translations: [Candidiasis, unspecified] Episodic Nutritional deficiencies (20 sources) Undernutrition; Translations: [Mild protein-calorie malnutrition] Onset: 2 06-05-2022 Chronic Other aftercare (4 sources) Patient encounter status; Translations: [Encounter for therapeutic drug level monitoring] Episodic Other aftercare (1 source) Long-term current use of drug therapy; Translations: [Other ocean transportation intermediary (current) drug therapy] 05-15-2024 Episodic Other bone disease and musculoskeletal deformities (1 source) Disorder of bone, unspecified; Translations: [Chronic kidney disease-mineral and bone disorder] Onset: 5 Episodic Other diseases of kidney and ureters (2 sources) Acute renal insufficiency; Translations: [Disorder of kidney and ureter, unspecified] 12-21-2024 Episodic Other diseases of kidney and ureters (1 source) Disorder of kidney and ureter, unspecified; Translations: [Acute renal insufficiency] Onset: 5 Episodic Other gastrointestinal disorders (20 sources) Ileostomy present; Translations: [Ileostomy status] Onset: 2 05-30-2022 Chronic Other gastrointestinal disorders (3 sources) Ileostomy status; Translations: [High output ileostomy (HCC)] Onset: 2 Chronic Other gastrointestinal disorders (1 source) Pneumoperitoneum; Translations: [Other specified disorders of peritoneum] Episodic Other gastrointestinal disorders (2 sources) Abdominal mass; Translations: [Other intra-abdominal and pelvic swelling, mass and lump] Episodic Other gastrointestinal disorders (1 source) Other ascites; Translations: [Other ascites] Onset: 2 Episodic Other gastrointestinal disorders (1 source) Intra-abdominal and pelvic swelling, mass and lump, unspecified site; Translations: [Abdominal mass, unspecified abdominal location] Onset: 2 Episodic Other gastrointestinal disorders (1 source) Excessive flatus; Translations: [Flatulence] 12-21-2024 Episodic Other gastrointestinal disorders (9 sources) High output ileostomy; Translations: [Other specified symptoms and signs involving the digestive system and abdomen] Onset: 5 03-28-2025 Episodic Other gastrointestinal disorders (1 source) Other specified symptoms and signs involving the digestive system and abdomen; Translations: [High output ileostomy (HCC)] Onset: 5 Episodic Other nutritional; endocrine; and metabolic disorders (20 sources) Simple obesity ; Translations: [Other obesity due to excess calories] Onset: 7 02-07-2017 Chronic Other nutritional; endocrine; and metabolic disorders (20 sources) Obesity caused by energy imbalance; Translations: [Other obesity due to excess calories] Onset: 7 02-07-2017 Chronic Other nutritional; endocrine; and metabolic disorders (1 source) Disorder of mineral metabolism, unspecified; Translations: [Chronic kidney disease-mineral and bone disorder] Onset: Chronic Other screening for suspected conditions (not mental disorders or infectious disease) (3 sources) Other specified abnormal findings of blood chemistry; Translations: [Other nonspecific findings on examination of blood] Onset: 5 04-19-2025 Episodic Peritonitis and intestinal abscess (2 sources) Abdominal abscess; Translations: [Peritoneal abscess] Episodic Residual codes; unclassified (20 sources) Obstructive sleep apnea syndrome; Translations: [Obstructive sleep apnea (adult) (pediatric)] Onset: 6 09-25-2021 Chronic Residual codes; unclassified (1 source) Edema; Translations: [Edema, unspecified] 04-12-2025 Episodic Residual codes; unclassified (12 sources) Bilateral lower limb edema; Translations: [Localized edema] Onset: 5 04-13-2025 Episodic Residual codes; unclassified (1 source) Edema, unspecified; Translations: [Edema, unspecified] Onset: Episodic Residual codes; unclassified (2 sources) Localized edema; Translations: [Bilateral lower extremity edema] Onset: Episodic Secondary malignancies (7 sources) Pseudomyxoma peritonei; 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 Unclassified (4 sources) as scheduled Unclassified (1 source) Acidosis, unspecified; Translations: [Acidosis, unspecified] Onset: Unclassified (1 source) Elevated brain natriuretic peptide (BNP) level 04-19-2025 Past or Other Problems Problem Classification Problem [...] [Other abnormal glucose] Onset: 12-12-2024 05-15-2024 Episodic Immunizations and screening for infectious disease (7 sources) Viral screening status; Translations: [Encounter for screening for other viral diseases] Onset: 12-04-2024 Episodic Malaise and fatigue (20 sources) Malaise and fatigue; Translations: [Other malaise] Onset: 02-18-2006 02-18-2006 Episodic Nausea and vomiting (18 sources) Nausea, vomiting and diarrhea; Translations: [Nausea with vomiting, unspecified] Onset: 11-30-2024 12-04-2024 Episodic Neoplasms of unspecified nature or uncertain behavior (20 sources) Neoplasm of appendix; 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] Onset: 05-04-2022 05-04-2022 Episodic Other aftercare (1 source) Other detention (current) drug therapy; Translations: [Encounter for long-term [...] gain] Onset: 02-18-2006 Resolved: 01-25-2015 01-25-2015 Episodic Pancreatic disorders (not diabetes) (20 sources) [...] Reference Range Facility Basic metabolic 2000 panelon 05-14-2025 Anion gap [Moles/Vol] 13 mmol/L Normal - [facility] Comment on above: Order Comment: Speci men Type: BLOOD SPECIMENOrdering Facility: [facility] Address: [address] [place] [address] Performed By: #### 2 4321-2 ####[facility] LABCLIA [id number] [address] [place] [address] [place] Calcium [Mass/Vol] 8.7 mg/dL Normal 8.5-10.2 [facility] Comment on above: Order Comment: Speci men Type: BLOOD SPECIMENOrdering Facility: [facility] Address: [address] [place] [address] Performed By: #### 2 4321-2 ####[facility] LABCLIA [id number] [place] [id number] [place] Chloride [Moles/Vol] 107 mmol/L Normal 98-107 [facility] Comment on above: Order Comment: Speci men Type: BLOOD SPECIMENOrdering Facility: [facility] Address: [address] [place] [address] Performed By: #### 2 4321-2 ####[facility] LABCLIA [id number] [place] [address] [place] CO2 [Moles/Vol] 16 mmol/L Low 22-30 [facility] Comment on above: Order Comment: Speci men Type: BLOOD SPECIMENOrdering Facility: [facility] Address: [address] [place] [address] Performed By: #### 2 4321-2 ####[facility] LABCLIA [id number] [place] [id number] [place] Creatinine [Mass/Vol] 1.54 mg/dL High 0.73-1.22 [facility] Comment on above: Order Comment: Speci men Type: BLOOD SPECIMENOrdering Facility: [facility] Address: [address] [place], [place] [id number] Performed By: #### 2 4321-2 ####[facility] LABCLIA [id number] [place] [id number] [place] eGFRcr SerPlBld CKD-EPI 2021 54 mL/min/1.73m??? Low >=60 [facility] Comment on above: Order Comment: Speci men Type: BLOOD SPECIMENOrdering Facility: [facility] Address: [address] [place] [address] Result Comment: Marlen mated Glomerular Filtration Rate [...] actual GFR. Performed By: #### 2 4321-2 ####[facility] [id number] [place] [address] [place] Glucose [Mass/Vol] 87 mg/dL Normal 74-99 [facility] Comment on above: Order Comment: Rose summers Type: BLOOD SPECIMENOrdering Facility: [facility] Address: [address] [place] [address] Result Comment: The [employer] (ADA) provides guidance for cutoff [...] Standards of Medical Care in Diabetes 2016, [employer]. Diabetes Care. 2016.39(Suppl 1). Performed By: #### 2 4321-2 ####[facility] [id number] [place] [address] [place] Potassium [Moles/Vol] 4.4 mmol/L Normal 3.7-5.1 [facility] Comment on above: Order Comment: Rose [facility] Type: BLOOD SPECIMENOrdering Facility: [facility] Address: [address] [place] [address] Performed By: #### 2 4321-2 ####[facility] LABCLIA [id number] [address] [address] [place] Sodium [Moles/Vol] 136 mmol/L Normal 136-144 [facility] Comment on above: Order Comment: Speci men Type: BLOOD SPECIMENOrdering Facility: [facility] Address: [address] [place] [address] Performed By: #### 2 4321-2 ####[facility] LABCLIA [id number] [facility] [place] [id number] [place] Urea nitrogen [Mass/Vol] 28 mg/dL High 9-24 [facility] Comment on above: Order Comment: Speci men Type: BLOOD SPECIMENOrdering Facility: [facility] Address: [address] [place] [address] Performed By: #### 2 4321-2 ####[facility] LABCLIA [id number] [place] [id number] [place] Basic metabolic 2000 panelon 05-07-2025 Anion gap [Moles/Vol] 14 mmol/L Normal 8-15 [facility] Comment on above: Order Comment: Speci men Type: BLOOD SPECIMENOrdering Facility: [facility] Address: [address] [place] [address] Performed By: #### 2 4321-2 ####[facility] LABCLIA [id number] [place] [id number] [place] Calcium [Mass/Vol] 8.2 mg/dL Low 8.5-10.2 [facility] Comment on above: Order Comment: Speci men Type: BLOOD SPECIMENOrdering Facility: [facility] Address: [address] [place], [place] [address] Performed By: #### 2 4321-2 ####[facility] LABCLIA [id number] [facility] [address] [address] [place] Chloride [Moles/Vol] 108 mmol/L High 98-107 [facility] Comment on above: Order Comment: Speci men Type: BLOOD SPECIMENOrdering Facility: [facility] Address: [address] [place] [address] Performed By: #### 2 4321-2 ####[facility] LABCLIA [id number] [place] [id number] [place] CO2 [Moles/Vol] 22 mmol/L Normal 22-30 [facility] Comment on above: Order Comment: Speci men Type: BLOOD SPECIMENOrdering Facility: [facility] Address: [address] [place] [address] Performed By: #### 2 4321-2 ####[facility] [id number] [place] [address] [place] Creatinine [Mass/Vol] 1.57 mg/dL High 0.73-1.22 [facility] Comment on above: Order Comment: Speci men Type: BLOOD SPECIMENOrdering Facility: [facility] Address: [address] [place] [address] Performed By: #### 2 4321-2 ####[facility] [id number] [place] [address] [place] eGFRcr SerPlBld CKD-EPI 2020 52 mL/min/1.73m??? Low >=60 [facility] Comment on above: Order Comment: Speci men Type: BLOOD SPECIMENOrdering Facility: [facility] Address: [address] [place] [address] Result Comment: Marlen mated Glomerular Filtration Rate [...] actual GFR. Performed By: #### 2 4321-2 ####[facility] LABCLIA [id number] [place] [id number] [place] Glucose [Mass/Vol] 85 mg/dL Normal 74-99 [facility] Comment on above: Order Comment: Speci men Type: BLOOD SPECIMENOrdering Facility: [facility] Address: [address] [place] [address] Result Comment: The [employer] Diabetes Association (ADA) provides guidance for cutoff [...] Standards of Medical Care in Diabetes 2016, [employer]. Diabetes Care. 2016.39(Suppl 1). Performed By: #### 2 4321-2 ####[facility] LABCLIA [id number] [place] [address] [place] Potassium [Moles/Vol] 4.4 mmol/L Normal 3.7-5.1 [facility] Comment on above: Order Comment: Speci men Type: BLOOD SPECIMENOrdering Facility: [facility] Address: [address] [place] [address] Performed By: #### 2 4321-2 ####[facility] LABCLIA [id number] [place] [id number] [place] Sodium [Moles/Vol] 144 mmol/L Normal 136-144 [facility] Comment on above: Order Comment: Speci men Type: BLOOD SPECIMENOrdering Facility: [facility] Address: [address] [place], [place] [address] Performed By: #### 2 4321-2 ####[facility] LABCLIA [id number] [address] [id number] [address] [place] Urea nitrogen [Mass/Vol] 24 mg/dL Normal 9-24 [facility] Comment on above: Order Comment: Speci men Type: BLOOD SPECIMENOrdering Facility: [facility] Address: [address] [place] [address] Performed By: #### 2 4321-2 ####[facility] LABCLIA [id number] [facility] [place] [id number] [place] Basic metabolic 2000 panelon 04-30-2025 Anion gap [Moles/Vol] 11 mmol/L Normal 8-15 [facility] Comment on above: Order Comment: Speci men Type: BLOOD SPECIMENOrdering Facility: [facility] Address: [address] [place] [address] Performed By: #### 2 4321-2 ####[facility] LABCLIA [id number] [place] [address] [place] Calcium [Mass/Vol] 7.5 mg/dL Low 8.5-10.2 [facility] Comment on above: Order Comment: Speci men Type: BLOOD SPECIMENOrdering Facility: [facility] Address: [address] [place] [address] Performed By: #### 2 4321-2 ####[facility] LABCLIA [id number] [place] [id number] [place] Chloride [Moles/Vol] 107 mmol/L Normal 98-107 [facility] Comment on above: Order Comment: Speci men Type: BLOOD SPECIMENOrdering Facility: [facility] Address: [address] [place] [address] Performed By: #### 2 4321-2 ####[facility] LABCLIA [id number] [place] [id number] [place] CO2 [Moles/Vol] 24 mmol/L Normal 22-30 [facility] Comment on above: Order Comment: Speci men Type: BLOOD SPECIMENOrdering Facility: [facility] Address: [address] [place] [address] Performed By: #### 2 4321-2 ####[facility] LABIA [id number] [place] [id number] [place] Creatinine [Mass/Vol] 1.66 mg/dL High 0.73-1.22 [facility] Comment on above: Order Comment: Speci men Type: BLOOD SPECIMENOrdering Facility: [facility] Address: [address] [place] [address] Performed By: #### 2 4321-2 ####[facility] LABIA [id number] [place] [address] [place] eGFRcr SerPlBld CKD-EPI 2020 49 mL/min/1.73m??? Low >=60 [facility] Comment on above: Order Comment: Speci men Type: BLOOD SPECIMENOrdering Facility: [facility] Address: [address] [place] [address] Result Comment: Marlen mated Glomerular Filtration Rate [...] actual GFR. Performed By: #### 2 4321-2 ####[facility] LABIA [id number] [place] [id number] [place] Glucose [Mass/Vol] 89 mg/dL Normal 74-99 [facility] Comment on above: Order Comment: Speci men Type: BLOOD SPECIMENOrdering Facility: [facility] Address: [address] [place] [address] Result Comment: The [employer] Diabetes Association (ADA) provides guidance for cutoff [...] Standards of Medical Care in Diabetes 2016, [employer]. Diabetes Care. 2016.39(Suppl 1). Performed By: #### 2 4321-2 ####[facility] LABIA [id number] [place] [address] [place] Potassium [Moles/Vol] 4.5 mmol/L Normal 3.7-5.1 [facility] Comment on above: Order Comment: Speci men Type: BLOOD SPECIMENOrdering Facility: [facility] Address: [address] [place] [address] Performed By: #### 2 4321-2 ####[facility] [id number] [place] [id number] [place] Sodium [Moles/Vol] 142 mmol/L Normal 136-144 [facility] Comment on above: Order Comment: Rafaeli melina Type: BLOOD SPECIMENOrdering Facility: [facility] Address: [address] [place] [address] Performed By: #### 2 4321-2 ####[facility] [id number] [place] [id number] [place] Urea nitrogen [Mass/Vol] 19 mg/dL Normal 9-24 [facility] Comment on above: Order Comment: Speci men Type: BLOOD SPECIMENOrdering Facility: [facility] Address: [address] [place] [address] Performed By: #### 2 4321-2 ####[facility] LABIA [id number] [address] [address] [place] ECHOon 04-30-2025 Echocardiography Echocardiography Rep ort: Transthoracic Echo [facility] Date of service: 04/30/2025 11:06:22 AM ROOM SUPERVISOR Ordering physician: HARJEET BERNARD Exam indication: Hypotension Symptom(s): Edema Technologist: Rowena Drake RD Interpreting physician: Geremias Blanco MD PATIENT: Name: MR. DOV BURROWS : 1970 Age: 55 years Gender: M Primary rhythm: sinus. Height: 185.40 cm BSA: 2.31 m Weight: 104.00 kg BMI: 30.3 kg/m Heart rate 73 bpm Blood pressure 101/56 mmHg Color Doppler was utilized to interrogate the cardiac valves assessed and spectral Doppler was utilized to determine the flow velocities and pressure gradients reported in this exam. Myocardial strain analysis was performed in this exam to aid in the assessment of cardiac function. MEASUREMENTS: Value Indexed Normal Max aortic dimension 4.4 cm Ao < 3.8 Left atrial volume 74 ml (biplane A-L) 32 ml/m Antonella <= 34 LV ID (diastole) 4.9 cm (2D) 2.13 cm/m LV ID (systole) 3.4 cm (2D) 1.49 cm/m IVS, leaflet tips 1.0 cm (2D) Posterior wall thickness 1.1 cm (2D) Left ventricular mass 185 g (2D) 80 g/m Global peak long strain -20.4 % LV stroke volume 109 ml (2D biplane) LV end diastolic volume 194 ml (2D biplane) 83.7 ml/m 34<=EDVi<75 LV end systolic volume 85 ml (2D biplane) 36.7 ml/m Ejection Fraction 56 % (2D biplane) EF > 52 FINDINGS: LEFT VENTRICLE The left ventricle is mildly dilated. Left ventricular systolic function is normal. Global LV myocardial strain is normal. Normal left ventricular diastolic function. Mitral annular lateral E/e': 6.5. Mitral annular septal E/e': 7.0. Wall Motion: All scored segments are normal. RIGHT VENTRICLE The right ventricle is normal in size. Right ventricular systolic function is normal. RV systolic tissue Doppler velocity is 14.0 cm/s. Tricuspid annular displacement is 2.2 cm. Estimated right ventricular systolic pressure is 23 mmHg consistent with normal pulmonary artery pressures. Estimated right atrial pressure is 3 mmHg (although IVC not seen). LEFT ATRIUM The left atrial cavity is normal in size. Pulmonary Veins: The pulmonary venous pattern showed normal systolic flow. RIGHT ATRIUM The right atrial cavity is normal in size. MITRAL VALVE The mitral valve leaflets are structurally normal. There is mild (1+) mitral valve regurgitation. The pressure half time is 42 msec. The peak mitral E/A ratio is 1.50. The average mitral E/e' ratio is 6.8. The mitral flow deceleration time is 145 msec. TRICUSPID VALVE The tricuspid valve leaflets are structurally normal. There is trace (trace - 1+) tricuspid valve regurgitation. AORTIC VALVE The aortic valve cusps are structurally normal. There is trace (trace - 1+) aortic valve regurgitation. Tricuspid aortic valve. The peak gradient is 6 mmHg (peak velocity = 124.3 cm/s). PULMONIC VALVE The pulmonic valve cusps are structurally normal. There is trace (trace - 1+) pulmonic valve regurgitation. AORTA The visualized aorta is dilated. Measurements - Aortic valve annulus 2.6 cm. Sinus: 4.1 cm. Sinotubular junction 3.5 cm. Mid ascending aorta 4.4 cm. Distal ascending aorta 4.3 cm. Mid arch 3.7 cm. INTERATRIAL SEPTUM There is no evidence of intracardiac shunting as detected by Doppler. PERICARDIUM There is no pericardial effusion. CONCLUSIONS: - Exam indication: Hypotension - The left ventricle is mildly dilated. Left ventricular systolic function is normal. EF = 56 5% (2D biplane) Normal left ventricular diastolic function. - The right ventricle is normal in size. Right ventricular systolic function is normal. - There are no significant valvular abnormalities. - The visualized aorta is dilated with a maximal dimension of 4.4 cm. - The patient has not had a prior CC echocardiographic exam for comparison. * * * Final * * * CC [facility] Image : [id number] [email or web address] Normal [facility] Paula 04-27-2025 [facility] Telephone (INTMWS) FIRST,DOV Zepeda ([id number]) 1970 M Date Time Provider Department 04/27/25 HARJEET BERNARD INTMWS During your visit today, we recorded the following information about you: Natalie Escalante RN 04/27/2025 4:52 PM Signed Patient calling to clarify if he is to receive IV hydration orders and by which provider. He states he was under the impression that he would have IV hydration orders placed for him. Reports he received a call yesterday from someone who was going to assist him in scheduling the IV appt but there was no order. Informed pt that message would be sent to PCP and Nephrology to advise. PEDRO LUIS Alvarez Nuzhat, I, MD 04/27/2025 7:02 PM Signed Please inform patient that his PCP will be arranging for IV fluids. Surekha Khoury RN 04/28/2025 11:32 AM Signed Attempted to reach patient. Left VM with Dr. Xiao's message and advised that he call back with any further questions. Harjeet Bernard MD 04/28/2025 6:35 PM Signed I already took care of orders to get as needed IVF through the hem/onc department. There are Therapy Plan standing orders Veriify who patient is to call to get scheduled there Ana Rosa Rossi LPN 04/30/2025 9:11 AM Signed Ana Rosa Rossi LPN 04/30/2025 9:12 AM Signed Two phone encounters have been opened for this pt for this IVF order. Closing this one. Ana Rosa Rossi LPN Allergies As of Date: 04/27/2025 (No Known Allergies) Date Reviewed: 04/19/2025 Reviewed by: Cira Skinner LPN - Fully Assessed Reason for Visit: Patient Question [7467] Prescriptions as of 04/30/2025 - omeprazole (PRILOSEC) 40 mg capsule Take 1 capsule by mouth once daily. - amoxicillin-clavulanate potassium (AUGMENTIN) 875-125 mg per tablet Take 875 mg by mouth two times a day. - sodium bicarbonate 650 mg tablet Take 1 tablet by mouth twice a day - diphenoxylate-atropine (LOMOTIL) 2.5-0.025 mg per tablet Take 2 tablets by mouth four times daily for 90 days. - loperamide (IMODIUM) 2 mg cap(s) Take 2 capsules by mouth four times daily. - buPROPion SR (WELLBUTRIN SR) 150 [...] once daily. 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 Subjective Dov Burrows is a 54 year old male. SUBJECTIVE: Triny Burrows is a 54-year-old male with a history of CKD, presenting for follow-up on cellulitis of the left lower extremity and associated symptoms. Triny reports improvement in cellulitis of the left lower extremity, with significant reduction in swelling over the past 24 hours. Initially, the swelling extended from the knee to the ankle, but it is now localized around the ankle area. He was prescribed a 10-day course of Augmentin by the ER on the , which he has been taking as directed. He denies any new symptoms or changes over the past week. He also reports episodes of nausea and anorexia, particularly at night, which he describes as a flu-like feeling. These episodes are intermittent and not associated with any specific triggers. He denies heartburn, but notes a weak voice during these episodes. He is currently taking omeprazole 20 mg daily at lunchtime and has a history of an esophagogastroduodenoscopy in 2021, which was unremarkable. He denies dysphagia, constipation, or diarrhea. He reports that his ileostomy output has improved with the use of loperamide, achieving a more consistent output. Triny has a history of CKD, with a recent creatinine level of 1.94, down from a previous high of 3.0. He was recently hospitalized for dehydration, during which his creatinine level was 4.0. He reports feeling weak and having low energy, which he attributes to his recent illness and dehydration. He denies any new shortness of breath or other symptoms. 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 amoxicillin-clavulanate potassium (AUGMENTIN) 875-125 mg per tablet Take 875 mg by mouth two times a day. sodium bicarbonate 650 mg tablet Take 1 tablet by mouth twice a day diphenoxylate-atropine (LOMOTIL) 2.5-0.025 mg per tablet Take 2 tablets by mouth four times daily for 90 days. loperamide (IMODIUM) 2 mg cap(s) Take 2 capsules by mouth four times daily. buPROPion SR (WELLBUTRIN SR) 150 mg 12 hr tablet Take 1 tablet by mouth two times a day. fluvoxaMINE ER (LUVOX CR) 150 mg capsule Take 1 capsule by mouth daily at bedtime. ondansetron (ZOFRAN) 8 mg tablet Take 1 tablet by mouth every 12 hours as needed for nausea/vomiting. CPAP Continue Auto PAP @ 5-20 cm [...] this visit. Review of Systems Objective BP 100/60 Pulse 76 Temp 36.1 ?C (97 ?F) (Left Tympanic) Resp 16 Wt 104 kg (229 lb 4.5 oz) BMI 30.25 kg/m? Physical Exam Vitals reviewed. Constitutional: Appearance: Normal appearance. Eyes: Conjunctiva/sclera: Conjunctivae normal. Cardiovascular: Rate and Rhythm: Normal rate and regular rhythm. Heart sounds: Normal heart sounds. Pulmonary: Effort: Pulmonary effort is normal. Breath sounds: Normal breath sounds. Musculoskeletal: Right lower le+ Pitting Edema present. Left lower le+ Pitting Edema present. Legs: Skin: General: Skin is warm and dry. Findings: Erythema (Left donavan medial ahuja) present. Neurological: General: No focal deficit present. Mental Status: He is alert and oriented to person, place, and time. Psychiatric: Attention and Perception: Attention and perception normal. Mood and Affect: Affect normal. Mood is anxious. Speech: Speech normal. Behavior: Behavior normal. Thought Content: Thought content normal. Cognition and Memory: Cognition and memory normal. Judgment: Judgment normal. Assessment and Plan # Cellulitis of left lower extremity (L03.116) - Cellulitis is resolving with current treatment of Augmentin; completed 10-day course. - Edema and erythema have decreased, now localized around the ankle area. - Continue monitoring for any signs of worsening infection. # Bilateral lower extremity edema (R60.0) - Edema is improving; advised use of mild (more content not included)... Normal [facility] Albumin SerPl-mCncon 025 Albumin [Mass/Vol] 3.3 g/dL Low 3.9-4.9 [facility] Comment on above: Order Comment: Speci men Type: BLOOD SPECIMENOrdering Facility: [facility] Address: [address] [place] [address] Performed By: #### 2 731-8, 43754-0, 2143-02, 1751-03 ####[facility] LABCLIA [id number] [place] [address] [place] Basic metabolic 2000 panelon 04-16-2025 Anion gap [Moles/Vol] 14 mmol/L Normal 8-15 [facility] Comment on above: Order Comment: Speci men Type: BLOOD SPECIMENOrdering Facility: [facility] Address: [address] [place] [address] Performed By: #### 2 731-8, 05106-6, 2143-02, 1751-03 ####[facility] LABCLIA [id number] [place] [address] [place] Calcium [Mass/Vol] 7.2 mg/dL Low 8.5-10.2 [facility] Comment on above: Order Comment: Speci men Type: BLOOD SPECIMENOrdering Facility: [facility] Address: [address] [place] [address] Performed By: #### 2 731-8, 89622-0, 2143-02, 1751-03 ####[facility] LABCLIA [id number] [place] [id number] [place] Chloride [Moles/Vol] 110 mmol/L High 98-107 [facility] Comment on above: Order Comment: Speci men Type: BLOOD SPECIMENOrdering Facility: [facility] Address: [address] [place] [address] Performed By: #### 2 731-8, 10538-3, 2143-02, 1751-03 ####[facility] LABCLIA [id number] [place] [id number] [place] CO2 [Moles/Vol] 19 mmol/L Low 22-30 [facility] Comment on above: Order Comment: Speci men Type: BLOOD SPECIMENOrdering Facility: [facility] Address: [address] [place] [address] Performed By: #### 2 731-8, 05885-5, 2143-02, 1751-03 ####[facility] LABCLIA [id number] [place] [address] [place] Creatinine [Mass/Vol] 2.04 mg/dL High 0.73-1.22 [facility] Comment on above: Order Comment: Speci men Type: BLOOD SPECIMENOrdering Facility: [facility] Address: [address] [place] [address] Performed By: #### 2 731-8, 46552-6, 2143-02, 1751-03 ####[facility] LABCLIA [id number] [place] [id number] [place] eGFRcr SerPlBld CKD-EPI 2020 38 mL/min/1.73m??? Low >=60 [facility] Comment on above: Order Comment: Speci men Type: BLOOD SPECIMENOrdering Facility: [facility] Address: [address] [place] [address] Result Comment: Marlen mated Glomerular Filtration Rate [...] reflect actual GFR. Performed By: #### 2 731-8, 39766-2, 2143-02, 1751-03 ####[facility] LABCLIA [id number] [address] [address] [place] Glucose [Mass/Vol] 89 mg/dL Normal 74-99 [facility] Comment on above: Order Comment: Rose summers Type: BLOOD SPECIMENOrdering Facility: [facility] Address: [address] [place] [address] Result Comment: The [employer] (ADA) provides guidance for cutoff [...] Standards of Medical Care in Diabetes 2016, [employer]. Diabetes Care. 2016.39(Suppl 1). Performed By: #### 2 731-8, 15882-2, 2143-02, 1751-03 ####[facility] LABCLIA [id number] [facility] [address] [address] [place] Potassium [Moles/Vol] 4.7 mmol/L Normal 3.7-5.1 [facility] Comment on above: Order Comment: Rose summers Type: BLOOD SPECIMENOrdering Facility: [facility] Address: [address] [place] [address] Performed By: #### 2 731-8, 06971-8, 2143-02, 1751-03 ####[facility] LABCLIA [id number] [place] [id number] [place] Sodium [Moles/Vol] 143 mmol/L Normal 136-144 [facility] Comment on above: Order Comment: Speci men Type: BLOOD SPECIMENOrdering Facility: [facility] Address: [address] [place] [address] Performed By: #### 2 731-8, 97361-9, 2143-02, 1751-03 ####[facility] LABCLIA [id number] [place] [id number] [place] Urea nitrogen [Mass/Vol] 26 mg/dL High 9-24 [facility] Comment on above: Order Comment: Speci men Type: BLOOD SPECIMENOrdering Facility: [facility] Address: [address] [place] [address] Performed By: #### 2 731-8, 75676-1, 2143-02, 1751-03 ####[facility] LABCLIA [id number] [place] [id number] [place] Cortis SerPl-mCncon 04-16-20 25 Cortisol [Mass/Vol] 5.7 ug/dL Normal 4.8-19.5 [facility] Comment on above: Order Comment: Speci men Type: BLOOD SPECIMENOrdering Facility: [facility] Address: [address] [place] [address] Result Comment: Prov ided reference range is from 6-10 AM sample collection time. Cortisol Reference Range: 6-10 AM = 4.8-19.5 ug/dL, 4-8 PM = 2.5-11.9 ug/dL Performed By: #### 2 731-8, 82358-3, 2143-02, 1751-03 ####[facility] LABCLIA [id number] [address] [address] [place] Hematocrit Auto (Bld) [Volum e fraction]on 04-16-2025 Hematocrit (Bld) [Volume fraction] 26.3 % Low 39.0-51.0 [facility] Comment on above: Order Comment: Speci men Type: BLOOD SPECIMENOrdering Facility: [facility] Address: [address] [place] [address] Performed By: #### 7 18-7, 4544-3 ####[facility] LABCLIA [id number] [place] [address] [place] [facility] Hemoglobin (Bld) [Mass/Vol] 8.0 g/dL Low 13.0-17.0 [facility] Comment on above: Order Comment: Speci men Type: BLOOD SPECIMENOrdering Facility: [facility] Address: [address] [place] [address] Performed By: #### 7 18-7, 4544-3 ####[facility] LABCLIA [id number] [place] [address] [place] NT[facility] 04-16 Natriuretic peptide.B prohormone N-Terminal [Mass/Vol] 1826 pg/mL High <125 [facility] Comment on above: Order Comment: Speci men Type: BLOOD SPECIMENOrdering Facility: [facility] Address: [address] [place] [address] Performed By: #### 3 084-1, 3016-3, 2777-1, 64770-2 ####[facility] LABCLIA [id number] [place] [address] [place] Osmolality SerPlon Osmolality [Osmolality] 299 mosm/kg Normal 275-300 [facility] Comment on above: Order Comment: Speci men Type: BLOOD SPECIMENOrdering Facility: [facility] Address: [address] [place] [address] Performed By: #### 2 692-2 ####[facility]CLIA [id number] [place] [address] [place] Osmolality Uron 04-16-2025 Osmolality (U) [Osmolality] 438 mosm/kg Normal 50-1200 [facility] Comment on above: Order Comment: Speci men Type: URINE SPECIMENOrdering Facility: [facility] Address: [address] [place] [address] Performed By: #### 2 695-5 ####[facility]CLIA [id number] [place] [address] [place] PTH-Intact [facility] - Parathyrin.intact [Mass/Vol] 46 pg/mL Normal 15-65 [facility] Comment on above: Order Comment: Speci men Type: BLOOD SPECIMENOrdering Facility: [facility] Address: [address] [place] [address] Performed By: #### 2 731-8, 68719-7, 2143-6, 1751-7 ####[facility]CLIA [id number] [place] [address] [place] Phosphate SerPl-ncon 04-16 Phosphate [Mass/Vol] 3.8 mg/dL Normal 2.7-4.8 [facility] Comment on above: Order Comment: Speci men Type: BLOOD SPECIMENOrdering Facility: [facility] Address: [address] [place] [address] Performed By: #### 3 084-1, 3016-3, 2777-1, 34642-2 ####[facility] LABIA [id number] [place] [address] [place] Prot/Creat Uron 04-16-2025 Protein/Creatinine (U) [Mass ratio] 0.20 mg/mg High <0.15 [facility] Comment on above: Order Comment: Speci men Type: URINE SPECIMENOrdering Facility: [facility] Address: [address] [place] [address] Result Comment: Adul t Proteinuria Categories: <0.15 mg/mg is considered normal to mildly increased 0.15 - 0.50 mg/mg is considered moderately increased >0.50 mg/mg is considered severely increased KDIGO. (2013). KDIGO 2012 Clinical Practice Guideline for the Evaluation and Management of Chronic Kidney Disease. Official Journal of the International Society of Nephrology, 3(1), 1-150. Performed By: #### 3 5678-2, 2890-2 ####[facility]CLIA [id number] [address] [address] [place] Protein/Creatinine (U) [Mass ratio]on 04-16-2025 Creatinine (U) [Mass/Vol] 95.8 mg/dL Normal 20.0-300.0 [facility] Comment on above: Order Comment: Speci men Type: URINE SPECIMENOrdering Facility: [facility] Address: [address] [place] [address] Performed By: #### 3 5678-2, 2889-2 ####[facility] LABIA [id number] [place] [id number] [place] [facility] Protein (U) [Mass/Vol] 19 mg/dL Normal 0-20 [facility] Comment on above: Order Comment: Speci men Type: URINE SPECIMENOrdering Facility: [facility] Address: [address] [place] [address] Performed By: #### 3 5678-2, 2889-2 ####[facility] LABIA [id number] [place] [id number] [place] Sodium ?Tm Ur-sCncon 025 Sodium Unsp time (U) [Moles/Vol] 22 mmol/L Normal 14-216 [facility] Comment on above: Order Comment: Speci men Type: URINE SPECIMENOrdering Facility: [facility] Address: [address] [place] [address] Performed By: #### 3 5678-2, 289-2 ####[facility] LABIA [id number] [address] [address] [place] TSH SerPl-aCncon 07-18-2025 TSH Qn 2.110 m[IU]/L Normal 0.270-4.20 0 [facility] Comment on above: Order Comment: Speci men Type: BLOOD SPECIMENOrdering Facility: [facility] Address: [address] [place] [address] Performed By: #### 3 084-1, 3016-3, 2777-1, 37236-4 ####[facility] LABCLIA [id number] [address] [place] Urate SerPl-mCncon Urate [Mass/Vol] 6.0 mg/dL Normal 4.0-8.[address] [facility] Comment on above: Order Comment: Speci men Type: BLOOD SPECIMENOrdering Facility: [facility] Address: [address] [place] [address] Performed By: #### 3 084-1, 3016-3, 2777-1, 12041-8 ####[facility] LABIA [id number] [place] [address] [place] Urinalysis complete panel (U )on 04-16-2025 Bacteria LM.HPF (Urine sed) [#/Area] Negative Normal Negative [facility] Comment on above: Order Comment: Speci men Type: URINE SPECIMENOrdering Facility: [facility] Address: [address] [place] [address] Performed By: #### 2 4356-8 ####[facility] LABCLIA [id number] [place] [address] [place] Bilirubin Ql (U) Negative Normal Negative [facility] Comment on above: Order Comment: Speci men Type: URINE SPECIMENOrdering Facility: [facility] Address: [address] [place] [address] Performed By: #### 2 4356-8 ####[facility] LABCLIA [id number] [place] [address] [place] Clarity (Unsp spec) Clear Normal Clear [facility] Comment on above: Order Comment: Speci men Type: URINE SPECIMENOrdering Facility: [facility] Address: [address] [place] [address] Performed By: #### 2 4356-8 ####[facility]CLIA [id number] [facility] [address] [place] [address] [place] Color (U) Yellow Normal Yellow [facility] Comment on above: Order Comment: Speci men Type: URINE SPECIMENOrdering Facility: [facility] Address: [address] [place] [address] Performed By: #### 2 4356-8 ####[facility] LABCLIA [id number] [address], [facility] [place] Epithelial cells LM.HPF (Urine sed) [#/Area] None Seen Normal [facility] Comment on above: Order Comment: Speci men Type: URINE SPECIMENOrdering Facility: [facility] Address: [address] [place] [address] Performed By: #### 2 4356-8 ####[facility] LABCLIA [id number] [address] [place] [address] [place] Glucose Test strip (U) [Mass/Vol] Negative Normal Negative [facility] Comment on above: Order Comment: Speci men Type: URINE SPECIMENOrdering Facility: [facility] Address: [address] [place] [address] Performed By: #### 2 4356-8 ####[facility]CLIA [id number] [facility] [address] [place] [address] [place] Hemoglobin Ql (U) Negative Normal Negative [facility] Comment on above: Order Comment: Speci men Type: URINE SPECIMENOrdering Facility: [facility] Address: [address] [place] [address] Performed By: #### 2 4356-8 ####[facility]CLIA [id number] [place] [address] [place] Hyaline casts (Urine sed) [#/Area] 1-3 /LPF Abnormal 0 /LPF [facility] Comment on above: Order Comment: Speci men Type: URINE SPECIMENOrdering Facility: [facility] Address: [address] [place] [address] Performed By: #### 2 4356-8 ####[facility] LABCLIA [id number] [place] [address] [place] Ketones Ql (U) Negative Normal Negative [facility] Comment on above: Order Comment: Speci men Type: URINE SPECIMENOrdering Facility: [facility] Address: [address] [place] [address] Performed By: #### 2 4356-8 ####[facility] LABCLIA [id number] [place] [address] [place] Leukocyte esterase Test strip Ql (U) Negative Normal Negative [facility] Comment on above: Order Comment: Speci men Type: URINE SPECIMENOrdering Facility: [facility] Address: [address] [place] [address] Performed By: #### 2 4356-8 ####[facility] LABCLIA [id number] [address], [place] [address] [place] Nitrite Ql (U) Negative Normal Negative [facility] Comment on above: Order Comment: Speci men Type: URINE SPECIMENOrdering Facility: [facility] Address: [address] [place] [address] Performed By: #### 2 4356-8 ####[facility] LABCLIA [id number] [place] [id number] [place] pH (U) 6.0 [pH] Normal 5.0-8.0 [facility] Comment on above: Order Comment: Speci men Type: URINE SPECIMENOrdering Facility: [facility] Address: [address] [place] [address] Performed By: #### 2 4356-8 ####[facility] LABIA [id number] [place] [address] [place] Protein (U) [Mass/Vol] 1+ Abnormal Negative [facility] Comment on above: Order Comment: Speci men Type: URINE SPECIMENOrdering Facility: [facility] Address: [address] [place] [address] Performed By: #### 2 4356-8 ####[facility] LABIA [id number] [place] [address] [place] RBC LM.HPF (Urine sed) [#/Area] 0-2 /HPF Normal 0-2 /HPF [facility] Comment on above: Order Comment: Speci men Type: URINE SPECIMENOrdering Facility: [facility] Address: [address] [place] [address] Performed By: #### 2 4356-8 ####[facility] [id number] [place] [address] [place] Specific gravity (U) [Rel density] 1.014 Normal 1.005-1.03 0 [facility] Comment on above: Order Comment: Speci men Type: URINE SPECIMENOrdering Facility: [facility] Address: [address] [place] [address] Performed By: #### 2 4356-8 ####[facility] [id number] [address] STATES OF [facility] Urobilinogen Ql (U) 0.2 EU/dL Normal 0.2-1.0 EU/dL [facility] Comment on above: Order Comment: Speci men Type: URINE SPECIMENOrdering Facility: [facility] Address: [address] [place] [address] Performed By: #### 2 4356-8 ####[facility] LABIA [id number] [place] [address] [place] WBC LM.HPF (Urine sed) [#/Area] 0-5 /HPF Normal 0-5 /HPF [facility] Comment on above: Order Comment: Speci men Type: URINE SPECIMENOrdering Facility: [facility] Address: [address] [place] [address] Performed By: #### 2 4356-8 ####[facility] LABCLIA [id number] [address] [place] US KIDNEY/BLADDERon 04-15-20 US KIDNEY/BLADDER * * *Final Report* * * DATE OF EXAM: Apr 15 2025 1:34PM [facility] 1055 - US KIDNEY/BLADDER / PROCEDURE REASON: Acute renal failure, unspecified acute renal failure type * * * * Physician Interpretation * * * * EXAMINATION: RENAL ULTRASOUND CLINICAL HISTORY: Acute renal failure, unspecified acute renal failure type TECHNIQUE: Sonography of the kidneys and urinary bladder was performed. Images were obtained and stored in a permanent archive. MQ: UR_1 COMPARISON: 05/15/2024 enhanced A/P CT RESULT: Right Kidney: -Renal length: 11.5 cm -Parenchyma: Normal parenchymal echogenicity. Normal parenchymal thickness. -Collecting system: No hydronephrosis. -Calculus: No echogenic, shadowing calculus. -Lesion: None. Left Kidney: -Renal length: 9.5 cm -Parenchyma: Normal parenchymal echogenicity. Normal parenchymal thickness. -Collecting system: No hydronephrosis. Extremity pelvis. -Calculus: No echogenic, shadowing calculus. -Lesion: None. Bladder: Nondistended: Volume = 44 mL. IMPRESSION: Normal sonographic appearance of the kidneys. Horticultural Technical Officer: PSCB Transcribe Date/Time: Apr 18 2025 12:28P Dictated by : LULI GALICIA MD This examination was interpreted and the report reviewed and electronically signed by: LULI GALICIA MD on Apr 18 2025 12:29PM EST [id number] Normal [facility] CNOVon 04-13-2025 CNOV Office Visit ([facility] ) DOV BURROWS ([id number]) 1970 M Date Time Provider Department 04/13/25 1:00 PM NELLY XIAO During your visit today, we recorded the following information about you: Temperature Pulse Blood pressure Weight 99.5 degrees 77/minute 94/59 98.8 kg Height 1.854 m Nelly Xiao I, MD 04/13/2025 2:14 PM Signed [facility] NEPHROLOGY AND HYPERTENSION [facility]. Name:Dov Burrows The patient, Dov Sullivan, identity was verified by name and MRN. Pt is accompanied in the office today by his significant other-Erika Consultation requested by Dr. Denise ,for my opinion regarding elevated serum creatinine-from acute renal failure superimposed on CKD stage 4. My final recommendations will be communicated back to the requesting physician by way of shared Medical record or letter . 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 Review of records shows his serum cr has been abnormal since November 2024 Baseline serum cr: 2.0 to 2.5 mg/dL He has had multiple hospitalizations over the past 6 months-mostly with dehydration and resulting [place]. The highest creatinine level noted on 03/22/2025 was 4.09 mg/dL. No H/O frequent bladder infections or kidney stones in the past. Denies regular NSAID use but has taken Advil off-and-on. 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 Underwent extensive debulking and received one round of chemo- per patient. Seen in ED last night for bilateral lower extremity swelling and erythema which started over the weekend. DVT was ruled out. Was diagnosed with cellulitis and discharged on Augmentin. Denies CP, SOB, orthopnea, PND or palpitations. Denies progressive leg edema No fever, chills or dizziness. He reports episodes of having no appetite and a sensation of fullness lasting 3-5 days, followed by periods of normal eating. These symptoms have been ongoing since November. He has been managing his ileostomy output with loperamide, taking up to 16 tablets a day as needed to control watery output. He uses Powerade and water to maintain hydration. No nausea, emesis, abdominal pain. No dysuria, gross hematuria or new flank pain. Denies generalized skin rash or arthralgias. Detailed review of systems is as below. I have reviewed current medications and allergies Current Outpatient Medications Medication Sig amoxicillin-clavulanate potassium (AUGMENTIN) 875-125 mg per tablet Take 875 mg by mouth two times a day. diphenoxylate-atropine (LOMOTIL) 2.5-0.025 mg per tablet Take 2 tablets by mouth four times daily for 90 days. loperamide (IMODIUM) 2 mg cap(s) Take 2 capsules by mouth four times daily. omeprazole (PRILOSEC) 20 mg capsule Take 1 capsule by mouth once daily. buPROPion SR (WELLBUTRIN SR) 150 mg 12 hr tablet Take 1 tablet by mouth two times a day. fluvoxaMINE ER (LUVOX CR) 150 mg capsule Take 1 capsule by mouth daily at bedtime. ondansetron (ZOFRAN) 8 mg tablet Take 1 tablet by mouth every 12 hours as needed for nausea/vomiting. CPAP Continue Auto PAP @ 5-20 cm of water with humidification. Mask (per patient preference) optional chin strap (if indicated) , filters, tubing, humidifier and lifetime supplies. AMBROSE G47.33 ferrous sulfate 325 mg (65 mg iron) tablet Take 1 tablet by mouth every other day. multivitamin tablet Take 1 tablet by mouth once daily. sodium bicarbonate 650 mg tablet Take 1 tablet by mouth twice a day No current facility-administered medications for this visit. 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 Other and unspecified hyperlipidemia Other malaise and fatigue Unspecified sleep apnea PAST SURGICAL HISTORY Procedure Laterality Date COLONOSCOPY SCREENING 04/26/2022 EGD W/O [facility] SPEC VARICIES INJ 04/26/2022 PAST SURGICAL HISTORY OF 05/29/2022 CRS/HIPEC SOCIAL HISTORY: Social History Tobacco Use Smoking status: Never Smokeless tobacco: Never Vaping Use Vaping status: Never Used Substance Use Topics Alcohol use: Never Drug use: Never Employer And Job Title: None on file Years Of Education Completed: Not specified Marital Status: Single FAMILY HISTORY: FAMILY HISTORY Problem Relation Age of Onset Dementia Mother Diabetes Father Pancreatic Cancer Father REVIEW OF SYSTEMS: GENERAL: no fever, chills or weight loss HEENT: no blurred vision, MOREJON or oral lesions RESP: no (more content not included)... Normal [facility] CNPNon 04-13-2025 CNPN Telephone (InfluxDBT) FIRSTDOV ([id number]) 1970 M Date Time Provider Department 04/13/25 NELLY XIAO During your visit today, we recorded the following information about you: Nelly Xiao I, MD 04/13/2025 7:[address] Arana saw Triny today for CKD stage IV. I understand that he might be getting CAT scan with IV contrast for surveillance of his mucinous tumor.Just wanted to express my concern as exposure to IV contrast at his current kidney function would be associated with an increased risk of contrast nephropathy. If it cannot be avoided, he would need IV hydration pre and postprocedure. Thank you Allergies As of Date: 04/13/2025 (No Known Allergies) Date Reviewed: 04/13/2025 Reviewed by: Zhanna Wellington MA - Fully Assessed Reason for Visit: Care Coordination [7937] Prescriptions as of 04/14/2025 - amoxicillin-clavulanate potassium (AUGMENTIN) 875-125 mg per tablet Take 875 mg by mouth two times a day. - sodium bicarbonate 650 mg tablet Take 1 tablet by mouth twice a day - diphenoxylate-atropine (LOMOTIL) 2.5-0.025 mg per tablet Take 2 tablets by mouth four times daily for 90 days. - loperamide (IMODIUM) 2 mg cap(s) Take 2 capsules by mouth four times daily. - omeprazole [...] once daily. Problem List As Of Date 04/13/2025 Noted Resolved AMBROSE on CPAP [G47.33] 02/18/2006 [...] Intra-abdominal and pelvic swelling, mass and l*01/23/2023 Acute renal failure [N17.9] 04/12/2025 CKD (chronic kidney disease) stage 4, GFR 15-29*04/12/2025 Hypokalemia [E87.6] 04/12/2025 Hyponatremia [E87.1] 04/12/2025 Metabolic acidosis [E87.20] 04/12/2025 Ileostomy present (HCC) [Z93.2] 04/12/2025 Anemia in stage 4 chronic kidney disease (HCC) *04/12/2025 Chronic kidney disease-mineral and bone disorde*04/12/2025 Bilateral leg edema [R60.0] 04/13/2025 Encounter Status:Closed by NELLY XIAO on 04/14/25 [facility] DOV BURROWS ([id number]) 1970 M Date Time Provider Department 04/13/25 NELLY XIAO During your visit today, we recorded the following information about you: Nelly Xiao I, MD 04/13/2025 7:01 PM Signed Message to the primary care team : I saw Mr. Burrows today. Patient and expressed concern regarding frequent ED visits for IV fluids. Patients with chronic ileostomy losses often have to get IV fluids at infusion center every 2 to 3 weeks. This would prevent frequent ED visits for dehydration. At your local [facility] you can place standing orders for a liter of normal saline to be given over 4-5 hours every 2 to 3 weeks. I have already ordered renal labs to be done every other week for now. Thank you. Harjeet Bernard MD 04/21/2025 7:23 PM Signed Check with hem/onc about setting up a therapy plan for IVF as noted below. Harjeet Bernard MD 04/22/2025 6:05 PM Signed Filed an order but not sure if did correctly Harjeet Bernard MD 04/23/2025 12:12 PM Signed Therapy plan was reviewed and patient is good to go for IVF at Hem/Onc department Amanda Celestin 04/26/2025 3:13 PM Signed Called to schedule patient and he requested to call back tomorrow due to on the road at this time Lucy Stone 04/26/2025 3:45 PM Signed Patient called requesting information about treatment. He will call back to schedule once he checks with work schedule Ana Rosa Rossi LPN 04/30/2025 9:14 AM Signed [employer] message asking if he checked with work so he could IVF scheduled. ALICE Gibbs Melissa 04/30/2025 12:49 PM Signed Scheduled with patient. Start email sent Pharm, please advise how often patient is to schedule, or PRN. Thank you Allergies As of Date: 04/13/2025 (No Known Allergies) Date Reviewed: 04/13/2025 Reviewed by: Zhanna Wellington MA - Fully Assessed Reason for Visit: Care Coordination [3491] Primary Visit Diagnosis:High output ileostomy (HCC) [R19.8, Z93.2] Other Visit Diagnosis:Recurrent dehydration [E86.0] Prescriptions as of 05/10/2025 - omeprazole (PRILOSEC) 40 mg capsule Take 1 capsule by mouth once daily. - amoxicillin-clavulanate potassium (AUGMENTIN) 875-125 mg per tablet Take 875 mg by mouth two times a day. - sodium bicarbonate 650 mg tablet Take 1 tablet by mouth twice a day - diphenoxylate-atropine (LOMOTIL) 2.5-0.025 mg per tablet Take 2 tablets by mouth four times daily for 90 days. - loperamide (IMODIUM) 2 mg cap(s) Take 2 capsules by mouth four times daily. - buPROPion SR (WELLBUTRIN SR) 150 [...] once daily. Problem List As Of Date 04/13/2025 Noted Resolved AMBROSE on CPAP [G47.33] 02/18/2006 [...] Intra-abdominal and pelvic swelling, mass and l*01/23/2023 Acute renal failure [N17.9] 04/12/2025 CKD (chronic kidney disease) stage 4, GFR 15-29*04/12/2025 Hypokalemia [E87.6] 04/12/2025 Hyponatremia [E87.1] 04/12/2025 Metabolic acidosis [E87.20] 04/12/2025 Ileostomy present (HCC) [Z93.2] 04/12/2025 An (more content not included)... Normal [facility] Absolute lymphocyte countOrd ered By: Nathen Walker on 04-12-2025 Lymphocytes Auto (Unsp spec) [#/Vol] 1.48 10*3/uL 0.83-4.51 [facility] Absolute neutrophil countOrd ered By: Nathen Walker on 04-12-2025 Neutrophils (Bld) [#/Vol] 6.1 10*3/uL 2.0-7.7 [facility] Anion gap in Serum or Plasma Ordered By: Nathen Walker on 04-12-2025 Anion gap [Moles/Vol] 13 mmol/L - [facility] Automated lymphocyte count a s percentage of total leukocytesOrdered By: Nathen Walker on 04-12-2025 Lymphocytes/100 WBC Auto (Unsp spec) 16.9 % Low 19-41 [facility] BUN/creatinine ratioOrdered By: Nathen Walker on 04-12-2025 Urea nitrogen/Creatinine [Mass ratio] 15.0 mg/mg 10- [facility] Basic Metabolic Profile (BMP )on 04-12-2025 BUN/CRE 15.0 RATIO Normal - [facility] Comment on above: Performed By: #### L 503.7505, L500.2500, L100.0100 #### [facility] [address] [place], [address] Calcium [Mass/Vol] 7.4 mg/dL Low 7.6-11.0 [facility] Comment on above: Performed By: #### L 503.7505, L500.2500, L100.0100 #### [facility] [address] [place], [address] Chloride [Moles/Vol] 107 mmol/L Normal 98-108 [facility] Comment on above: Performed By: #### L 503.7505, L500.2500, L100.0100 #### [facility] [address] [place], [address] CO2 [Moles/Vol] 19.3 mmol/L Low 21.0-32.0 [facility] Comment on above: Performed By: #### L 503.7505, L500.2500, L100.0100 #### [facility] [address] [place], [address] Creatinine [Mass/Vol] 1.94 mg/dL High 0.70-1.20 [facility] Comment on above: Performed By: #### L 503.7505, L500.2500, L100.0100 #### [facility] [address] [place], [address] ECRCL 54.61 ml/min Normal 50-250 [facility] Comment on above: Performed By: #### L 503.7505, L500.2500, L100.0100 #### [facility] [address] [place], [address] GAP 13 Normal 5-15 [facility] Comment on above: Performed By: #### L 503.7505, L500.2500, L100.0100 #### [facility] [address] [place], [address] GFR/1.73 sq M.predicted among non-blacks MDRD (S/P/Bld) [Vol rate/Area] 41 mL/min/{1.73_m2} Low >60 [facility] Comment on above: Result Comment: mL/m in/1.73m2 CKD-EPI Creatinine Equation (2020) Performed By: #### L 503.7505, L500.2500, L100.0100 #### [facility] [address] [place], [address] Glucose [Mass/Vol] 87 mg/dL Normal 70-99 [facility] Comment on above: Performed By: #### L 503.7505, L500.2500, L100.0100 #### [facility] [address] [place], [address] Potassium [Moles/Vol] 4.8 mmol/L Normal 3.3-5.1 [facility] Comment on above: Result Comment: Hemo lysis present, Results??could be affected. ?? Performed By: #### L 503.7505, L500.2500, L100.0100 #### [facility] [address] [place], [address] Sodium [Moles/Vol] 139 mmol/L Normal 133-145 [facility] Comment on above: Performed By: #### L 503.7505, L500.2500, L100.0100 #### [facility] [address] [place], [address] Urea nitrogen [Mass/Vol] 29 mg/dL High 4-19 [facility] Comment on above: Performed By: #### L 503.7505, L500.2500, L100.0100 #### [facility] [address] [place], [address] Basic metabolic 2000 panelon 04-12-2025 Anion gap [Moles/Vol] 12 mmol/L Normal 8-15 [facility] Comment on above: Order Comment: Speci men Type: BLOOD SPECIMENOrdering Facility: [facility] Address: [address] [place] [address] Performed By: #### 2 4321-2 ####[facility] LABCLIA [id number] [place] [id number] [place] Calcium [Mass/Vol] 7.8 mg/dL Low 8.5-10.2 [facility] Comment on above: Order Comment: Speci men Type: BLOOD SPECIMENOrdering Facility: [facility] Address: [address] [place] [address] Performed By: #### 2 4321-2 ####[facility] LABCLIA [id number] [facility] [place] [id number] [place] Chloride [Moles/Vol] 108 mmol/L High 98-107 [facility] Comment on above: Order Comment: Speci men Type: BLOOD SPECIMENOrdering Facility: [facility] Address: [address] [place] [address] Performed By: #### 2 4321-2 ####[facility] LABCLIA [id number] [address] [address] [place] CO2 [Moles/Vol] 20 mmol/L Low 22-30 [facility] Comment on above: Order Comment: Speci men Type: BLOOD SPECIMENOrdering Facility: [facility] Address: [address] [place] [address] Performed By: #### 2 4321-2 ####[facility]CLIA [id number] [facility] [address] [address] [place] Creatinine [Mass/Vol] 2.05 mg/dL High 0.73-1.22 [facility] Comment on above: Order Comment: Speci men Type: BLOOD SPECIMENOrdering Facility: [facility] Address: [address] [place] [address] Performed By: #### 2 4321-2 ####[facility] LABCLIA [id number] [place] [id number] [place] Creatinine and Glomerular filtration rate.predicted panel (S/P/Bld) 38 mL/min/1.73m??? Low >=60 [facility] Comment on above: Order Comment: Speci men Type: BLOOD SPECIMENOrdering Facility: [facility] Address: [address] [place] [address] Result Comment: Marlen mated Glomerular Filtration Rate [...] actual GFR. Performed By: #### 2 4321-2 ####[facility] LABCLIA [id number] [address] [address] [place] Glucose [Mass/Vol] 87 mg/dL Normal 74-99 [facility] Comment on above: Order Comment: Speci men Type: BLOOD SPECIMENOrdering Facility: [facility] Address: [address] [place] [address] Result Comment: The [employer] (ADA) provides guidance for cutoff [...] Standards of Medical Care in Diabetes 2016, [employer]. Diabetes Care. 2016.39(Suppl 1). Performed By: #### 2 4321-2 ####[facility] LABIA [id number] [place] [address] [place] Potassium [Moles/Vol] 4.3 mmol/L Normal 3.7-5.1 [facility] Comment on above: Order Comment: Speci men Type: BLOOD SPECIMENOrdering Facility: [facility] Address: [address] [place] [address] Performed By: #### 2 4321-2 ####[facility] LABIA [id number] [place] [address] [place] Sodium [Moles/Vol] 140 mmol/L Normal 136-144 [facility] Comment on above: Order Comment: Speci men Type: BLOOD SPECIMENOrdering Facility: [facility] Address: [address] [place] [address] Performed By: #### 2 4321-2 ####[facility] LABIA [id number] [place] [id number] [place] Urea nitrogen [Mass/Vol] 29 mg/dL High 9-24 [facility] Comment on above: Order Comment: Speci men Type: BLOOD SPECIMENOrdering Facility: [facility] Address: [address] [place] [address] Performed By: #### 2 4321-2 ####[facility] LABIA [id number] [place] [id number] [place] Basophil percentageOrdered B y: Nathen Walker on 04-12-2025 Basophils/100 WBC (Bld) 0.5 % 0-1 [facility] CBC W/Diff, Automatedon 03-30 Absolute Lymph 1.48 X10 3/uL Normal 0.83-4.51 [facility] Comment on above: Performed By: #### L 503.7505, L500.2500, L100.0100 #### [facility] [address] [place], [address] Absolute Neut 6.1 X10 3/uL Normal 2.0-7.7 [facility] Comment on above: Performed By: #### L 503.7505, L500.2500, L100.0100 #### [facility] [address] [place], [address] Basophils/100 WBC (Bld) 0.5 % Normal 0-1 [facility] Comment on above: Performed By: #### L 503.7505, L500.2500, L100.0100 #### [facility] [address] [place], [address] Eosinophils/100 WBC (Bld) 1.1 % Normal 0-5 [facility] Comment on above: Performed By: #### L 503.7505, L500.2500, L100.0100 #### [facility] [address] [place], [address] Erythrocyte distribution width (RBC) [Ratio] 14.7 % High 11.6-14.6 [facility] Comment on above: Performed By: #### L 503.7505, L500.2500, L100.0100 #### [facility] [address] [place], [address] Hematocrit (Bld) [Volume fraction] 26.6 % Low 40-54 [facility] Comment on above: Performed By: #### L 503.7505, L500.2500, L100.0100 #### [facility] [address] [place], [address] Hemoglobin (Bld) [Mass/Vol] 8.6 g/dL Low 13.0-16.5 [facility] Comment on above: Performed By: #### L 503.7505, L500.2500, L100.0100 #### [facility] [address] [place], [address] IG% 0.500 Normal 0.0-0.9 [facility] Comment on above: Result Comment: IG% - Immature Granulocytes (promyelocytes, myelocytes and metamyelocytes) > 1% indicates that a LEFT SHIFT is Present. Performed By: #### L 503.7505, L500.2500, L100.0100 #### [facility] [address] [place], [address] Lymphocytes/100 WBC (Bld) 16.9 % Low 19-41 [facility] Comment on above: Performed By: #### L 503.7505, L500.2500, L100.0100 #### [facility] [address] [place], [address] MCH (RBC) [Entitic mass] 31.3 pg Normal 27.0-32.0 [facility] Comment on above: Performed By: #### L 503.7505, L500.2500, L100.0100 #### [facility] [address] [place], [address] MCHC (RBC) [Mass/Vol] 32.3 g/dL Normal 32-36 [facility] Comment on above: Performed By: #### L 503.7505, L500.2500, L100.0100 #### [facility] [address] [place], [address] MCV (RBC) [Entitic vol] 96.7 fL High 80-94 [facility] Comment on above: Performed By: #### L 503.7505, L500.2500, L100.0100 #### [facility] [address] [place], [address] Monocytes/100 WBC (Bld) 11.2 % High 0-10 [facility] Comment on above: Performed By: #### L 503.7505, L500.2500, L100.0100 #### [facility] [address] [place], [address] Neutrophils/100 WBC (Bld) 69.8 % Normal 47-70 [facility] Comment on above: Performed By: #### L 503.7505, L500.2500, L100.0100 #### [facility] [address] [place], [address] Nucleated RBC (Bld) [#/Vol] 0 10*3/uL Normal 0-5 [facility] Comment on above: Performed By: #### L 503.7505, L500.2500, L100.0100 #### [facility] [address] [place], [address] Platelet mean volume (Bld) [Entitic vol] 9.2 fL Normal 6.2-12.0 [facility] Comment on above: Performed By: #### L 503.7505, L500.2500, L100.0100 #### [facility] [address] [place], [address] Platelets (Bld) [#/Vol] 465 10*3/uL High 150-450 [facility] Comment on above: Performed By: #### L 503.7505, L500.2500, L100.0100 #### [facility] [address] [place], [address] RBC (Bld) [#/Vol] 2.75 10*6/uL Low 4.6-6.2 [facility] Comment on above: Performed By: #### L 503.7505, L500.2500, L100.0100 #### [facility] [address] [place], [address] RDW SD 52.8 fl High 35.1-43.9 [facility] Comment on above: Performed By: #### L 503.7505, L500.2500, L100.0100 #### [facility] [address] [place], [address] WBC (Bld) [#/Vol] 8.8 10*3/uL Normal 4.4-11.0 [facility] Comment on above: Performed By: #### L 503.7505, L500.2500, L100.0100 #### [facility] [address] [place], [address] Carbon dioxide, total [Moles /volume] in Central venous bloodOrdered By: Nathen Walker on 04-12-2025 CO2 [Moles/Vol] 19.3 mmol/L Low 21.0-32.0 [facility] Chloride assayOrdered By: Justus Walker on 04-12-2025 Chloride [Moles/Vol] 107 mmol/L 98-108 [facility] Emergency Department Summary on 04-12-2025 Emergency Department Summary [facility] Medical Records Department [address] [place] [address] Emergency Department Summary 04/12/25 MR#: [id number] Acct: [id number] Name: DOV BURROWS Rep #: [id number] : 1970 54 From: Nathen Walker MD PCP: Dr. Harjeet Brenard MD Status:DEP ER Location: ED HPI History of Present Illness Chief Complaint: Edema Narrative Narrative: 54-year-old male with no significant past medical history presents with swelling of his bilateral lower extremities with redness and patches. He denies any chest pain or shortness of breath, no fevers or chills. Past medical history does include chronic kidney disease for which he has an appointment with his joint special operations tomorrow. He states that he works and is on his feet all day. He noticed that his left leg became swollen over the weekend, over the past 2 days. Then today, his right leg became swollen, and he noticed redness to. His legs feel swollen and tight. He denies any exacerbating or alleviating factors. He states he has had leg swelling in the past, but previously when he would elevate his legs, the swelling would subside. No history of congestive heart failure. [facility] Medical History Dehydration Acute kidney injury Cancer of appendix Ileostomy present Acute appendicitis [...] 11/26/24 12/15/24 H istory release psyllium husk 3 gram oral powder 1 packet PO TID #54 ea 11/29/24 Rx packet (Daily Fiber (psyllium-aspartame)) dicyclomine 20 mg tablet 20 mg PO .QID PRN diarrhea #20 tab s 12/16/24 Unknown Rx diphenoxylate-atropine 2.5 2 tab PO Q6H PRN diarrhea #30 tabs 12/16/24 Unknown Rx mg-0.025 mg tablet (Lomotil) amoxicillin 875 mg-potassium 875 mg PO Q12H #20 TABLETS 5 Unknown Rx clavulanate 125 mg tablet Allergy/AdvReac Type Severity Reaction Status Date / Time No Known Allergies Allergy Verified 04/12/25 17:46 Family History Other VTE (venous thromboembolism) Surgical History S/P splenectomy H/O colectomy Social History household members: spouse housing: house Smoking Status: Never smoker ROS ROS ED ROS Narrative Review of systems positive for bilateral lower extremity swelling with redness. No fevers or chills, no chest pain, no shortness of breath. No purulent drainage. EXAM Physical Exam Narrative Exam Narrative: Afebrile. Vital signs noted. Nontoxic-appearing. Cardiovascular examination reveals a regular rate and rhythm. Lungs are clear to auscultation bilaterally. The abdomen is soft and nontender with positive bowel sounds. Inspection of the bilateral lower extremities does show lymphedema with mild erythema that appears more patchy in the anterior tibial areas and in various areas throughout the lower extremities. He does have palpable dorsalis pedis pulses bilaterally. Const Vital Signs: 04/12/25 17:42 04/12/25 22:00 04/12/25 22:37 Temperature 98.2 F 97.0 F L Temperature Source Oral Pulse Rate 98 94 73 Respiratory Rate 16 20 H 18 Blood Pressure 103/72 113/88 H 127/84 H Blood Pressure Mean 82 96 98 Pulse Ox 99 94 100 Oxygen Delivery Method Room Air MDM MDM MDM Narrative Medical decision making narrative: The differential diagnosis does include peripheral edema versus lymphedema versus cellulitis versus DVT. History and physical does not support DVT and it is bilateral as well. No recent trauma or breaks in skin. He is afebrile here and hemodynamically stable with a pulse ox of 99% on room air. Ultrasound will be obtained of the bilateral lower extremities and CBC, BMP, and BNP obtained as well. I doubt congestive heart failure because it started unilaterally first. I reviewed his laboratory work and he has normal white count of 8.8, positive anemia of 8.6 with hematocrit 26.6. I do not feel he requires an emergent transfusion. Platelet count slightly elevated at 465 which may be an acute phase reactant. Sodium normal at 139 with potassium 4.8, chloride 107 with CO2 of 19.3. Glucose 87. BNP is elevated at 1046. His creatinine is elevated at 1.94 and when compared to prior labs, this is around his baseline and has been as high as 3. His BNP might (more content not included)... Normal [facility] Eosinophil percentageOrdered By: Nathen Walker on 04-12-2025 Eosinophils/100 WBC (Bld) 1.1 % 0-5 [facility] Erythrocyte distribution wid th ratioOrdered By: Nathen Walker on 04-12-2025 Erythrocyte distribution width (RBC) [Ratio] 14.7 % High 11.6-14.6 [facility] Erythrocyte distribution wid th standard deviationOrdered By: Nathen Walker on 04-12-2025 Erythrocyte distribution width (RBC) [Ratio] 52.8 fl High 35.1-43.9 [facility] Glomerular filtration rate ( GFR) estimation/1.73 sq m using serum, plasma, or whole bOrdered By: Nathen Wakler on 04-12-2025 GFR/1.73 sq M.predicted among non-blacks MDRD (S/P/Bld) [Vol rate/Area] 41 mL/min/{1.73_m2} Low >60 [facility] Comment on above: mL/min/1.73m2 CKD-EP I Creatinine Equation (2020) Hematocrit Auto (Bld) [Volum e fraction]Ordered By: Nathen Walker on 04-12-2025 Hematocrit (Bld) [Volume fraction] 26.6 % Low 40-54 [facility] Hemoglobin measurementOrdere d By: Nathen Walker on 04-12-2025 Hemoglobin (Bld) [Mass/Vol] 8.6 g/dL Low 13.0-16.5 [facility] Immature granulocytes/100 WB C Auto (Bld)Ordered By: Nathen Walker on 04-12-2025 Immature granulocytes/100 WBC (Bld) 0.500 % 0.0-0.9 [facility] Comment on above: IG% - Immature Granu locytes (promyelocytes, myelocytes and metamyelocytes) > 1% indicates that a LEFT SHIFT is Present. L503.7505on 04-12-2025 Natriuretic peptide B (Bld) [Mass/Vol] 1046 pg/mL High <=900 [facility] Comment on above: Result Comment: Hear t Failure Unlikely: < 300 pg/mL Heart Failure Likely < 50 Years: > 450 pg/mL 50-75 Years: > 900 pg/mL >75 Years: > 1800 pg/mL Performed By: #### L 503.5125, L500.2500, L100.0100 #### [facility] [address] [place], [address] MCV (mean corpuscular volume ) determinationOrdered By: Nathen Walker on 04-12-2025 MCV (RBC) [Entitic vol] 96.7 fL High 80-94 [facility] Mean corpuscular hemoglobin (MCH) determinationOrdered By: Nathen Walker on 04-12-2025 MCH (RBC) [Entitic mass] 31.3 pg 27.0-32.0 [facility] Mean corpuscular hemoglobin concentration (MCHC) determinationOrdered By: Nathen Walker on 04-12-2025 MCHC (RBC) [Mass/Vol] 32.3 g/dL 32-36 [facility] Mean platelet volume determi nationOrdered By: Nathen Walker on 04-12-2025 Platelet mean volume (Bld) [Entitic vol] 9.2 fL 6.2-12.0 [facility] Monocyte percentageOrdered B y: Nathen Walker on 04-12-2025 Monocytes/100 WBC (Bld) 11.2 % High 0-10 [facility] Natriuretic peptide.B prohor emily N-Terminal [Mass/volume] in Serum or PlasmaOrdered By: Nathen Walker on 04-12-2025 Natriuretic peptide.B prohormone N-Terminal [Mass/Vol] 1046 pg/mL High <900 [facility] Comment on above: Heart Failure Unlike ly: < 300 pg/mLHeart Failure Likely< 50 Years: > 450 pg/mL50-75 Years: > 900 pg/mL>75 Years: > 1800 pg/mL Neutrophil percentageOrdered By: Nathen Walker on 04-12-2025 Neutrophils/100 WBC (Bld) 69.8 % 47-70 [facility] Nucleated red blood cell per centageOrdered By: Nathen Walker on 04-12-2025 Nucleated RBC/100 WBC (Bld) [Ratio] 0 % 0-5 [facility] Platelet countOrdered By: Justus Walker on 04-12-2025 Platelets (Bld) [#/Vol] 465 10*3/uL High 150-450 [facility] Potassium measurement (mass/ volume)Ordered By: Nathen Walker on 04-12-2025 Potassium (Unsp spec) [Mass/Vol] 4.8 mmol/L 3.3-5.1 [facility] Comment on above: Hemolysis present, R esults could be affected. RBC Auto (Bld) [#/Vol]Ordere d By: Nathen Walker on 04-12-2025 RBC (Bld) [#/Vol] 2.75 10*6/uL Low 4.6-6.2 [facility] Serum creatinine measurement (mass/volume)Ordered By: Nathen Walker on 04-12-2025 Creatinine [Mass/Vol] 1.94 mg/dL High 0.70-1.20 [facility] Serum glucose measurement (m ass/volume)Ordered By: Nathen Walker on 04-12-2025 Glucose [Mass/Vol] 87 mg/dL 70-99 [facility] Serum or plasma calcium tran urement (mass/volume)Ordered By: Nathen Walker on 04-12-2025 Calcium [Mass/Vol] 7.4 mg/dL Low 7.6-11.0 [facility] Serum or plasma urea nitroge n measurement (mass/volume)Ordered By: Nathen Walker on 04-12-2025 Urea nitrogen [Mass/Vol] 29 mg/dL High 4-19 [facility] Sodium levelOrdered By: Nathen Walker on 04-12-2025 Sodium [Moles/Vol] 139 mmol/L 133-145 [facility] Venous Duplex Imag/[place] Extre mon 04-12-2025 Venous Duplex Imag/Hugh Extrem [facility] Imaging Services [address] [place] [address] [id number] Venous Duplex Imag/[place] Extrem MR#: [id number] Acct: [id number] Name: DOV BURROWS Rep #: [id number] : 1970 M 54 From: Edwin Cueva PCP: Dr. Harjeet Bernard MD Status: [facility] ER Study: Venous Duplex Imag/[place] Extrem Date of Exam: Exam# [id number] Ordering Dr: Nathen Walker MD PROCEDURE: VENOUS DUPLEX IMAG/HUGH EXTREM 04/12/2025 REASON FOR EXAM: Bilateral lower extremity swelling TECHNIQUE: VENOUS DUPLEX IMAG/HUGH EXTREM COMPARISON: None FINDINGS: There is no intraluminal echogenicity to suggest the presence of a deep venous thrombosis. Appropriate respiratory variation, augmentation and venous compression is noted. Superficial thrombophlebitis seen within the right GSV. US/Venous Duplex Imag/[place] Extrem IMPRESSION: Superficial thrombophlebitis seen within the right GSV. No acute occlusive deep vein thrombosis within bilateral lower extremities. Reading Location: [facility] CC: Dr. Nathen Walker MD; Dr. Harjeet Bernard MD Horticultural Technical Officer: Signed Normal [facility] White blood cell (WBC) count Ordered By: Nathen Walker on 04-12-2025 WBC (Bld) [#/Vol] 8.8 10*3/uL 4.4-11.0 [facility] Basic metabolic 2000 panelon 04-05-2025 Anion gap [Moles/Vol] 15 mmol/L Normal 8-15 [facility] Comment on above: Order Comment: Speci men Type: BLOOD SPECIMENOrdering Facility: [facility] Address: [address] [place] [address] Performed By: #### 2 4321-2 ####[facility] LABCLIA [id number] [place] [address] [place] Calcium [Mass/Vol] 8.5 mg/dL Normal 8.5-10.2 [facility] Comment on above: Order Comment: Speci men Type: BLOOD SPECIMENOrdering Facility: [facility] Address: [address] [place] [address] Performed By: #### 2 4321-2 ####[facility] LABCLIA [id number] [place] [address] [place] Chloride [Moles/Vol] 105 mmol/L Normal 98-107 [facility] Comment on above: Order Comment: Speci men Type: BLOOD SPECIMENOrdering Facility: [facility] Address: [address] [place] [address] Performed By: #### 2 4321-2 ####[facility] LABCLIA [id number] [address] [address] [place] CO2 [Moles/Vol] 17 mmol/L Low 22-30 [facility] Comment on above: Order Comment: Speci men Type: BLOOD SPECIMENOrdering Facility: [facility] Address: [address] [place] [address] Performed By: #### 2 4321-2 ####[facility] LABIA [id number] [place] [id number] [place] Creatinine [Mass/Vol] 2.75 mg/dL High 0.73-1.22 [facility] Comment on above: Order Comment: Speci men Type: BLOOD SPECIMENOrdering Facility: [facility] Address: [address] [place] [address] Performed By: #### 2 4321-2 ####[facility] LABIA [id number] [place] [address] [place] Creatinine and Glomerular filtration rate.predicted panel (S/P/Bld) 27 mL/min/1.73m??? Low >=60 [facility] Comment on above: Order Comment: Speci men Type: BLOOD SPECIMENOrdering Facility: [facility] Address: [address] [place] [address] Result Comment: Marlen mated Glomerular Filtration Rate [...] actual GFR. Performed By: #### 2 4321-2 ####[facility]CLIA [id number] [facility] [address] [address] [place] Glucose [Mass/Vol] 100 mg/dL High 74-99 [facility] Comment on above: Order Comment: Speci men Type: BLOOD SPECIMENOrdering Facility: [facility] Address: [address] [place] [id number] Result Comment: The [employer] Diabetes Association (ADA) provides guidance for cutoff [...] Standards of Medical Care in Diabetes 2016, [employer] Diabetes Association. Diabetes Care. 2016.39(Suppl 1). Performed By: #### 2 4321-2 ####[facility] LABCLIA [id number] [place] [address] [place] Potassium [Moles/Vol] 3.1 mmol/L Low 3.7-5.1 [facility] Comment on above: Order Comment: Speci men Type: BLOOD SPECIMENOrdering Facility: [facility] Address: [address] [place] [address] Performed By: #### 2 4321-2 ####[facility] LABCLIA [id number] [place] [id number] [place] Sodium [Moles/Vol] 137 mmol/L Normal 136-144 [facility] Comment on above: Order Comment: Speci men Type: BLOOD SPECIMENOrdering Facility: [facility] Address: [address] [place] [address] Performed By: #### 2 4321-2 ####[facility] LABCLIA [id number] [place] [id number] [place] Urea nitrogen [Mass/Vol] 39 mg/dL High 9-24 [facility] Comment on above: Order Comment: Speci men Type: BLOOD SPECIMENOrdering Facility: [facility] Address: [address] [place], [place] [id number] Performed By: #### 2 4321-2 ####[facility] LABCLIA [id number] LETICIA HOLDEN [place] [id number] [place] Basic metabolic 2000 panelOr darci By: Alexandra Perez on 03-29-2025 Anion gap [Moles/Vol] 15 mmol/L 8 - 15 mmol/L [facility] Calcium [Mass/Vol] 9.4 mg/dL 8.5 - 10. 2 mg/dL [facility] Chloride [Moles/Vol] 102 mmol/L 98 - 10 7 mmol/L [facility] CO2 [Moles/Vol] 11 mmol/L Low 22 - 30 mmol/L [facility] Creatinine [Mass/Vol] 2.55 mg/dL High 0.73 - 1.22 mg/dL [facility] GFR/1.73 sq M.predicted among non-blacks MDRD (S/P/Bld) [Vol rate/Area] 29 mL/min/{1.73_m2} Low - PINF [facility] Comment on above: Estimated Glomerular Filtration Rate [...] not accurately reflect actual GFR. Glucose [Mass/Vol] 117 mg/dL High 74 - 99 mg/dL [facility] Comment on above: The [employer] Diabete s Association (ADA) provides guidance for [...] Standards of Medical Care in Diabetes 2016, [employer] Diabetes [employer]. Diabetes Care. 2016.39(Suppl 1). Interpretation and review of laboratory results Abnormal [facility] Potassium [Moles/Vol] 3.5 mmol/L Low 3.7 - 5.1 mmol/L [facility] Sodium [Moles/Vol] 128 mmol/L Low 136 - 144 mmol/L [facility] Urea nitrogen [Mass/Vol] 74 mg/dL High 9 - 24 mg/dL [facility] Basic metabolic 2000 panelon 03-29-2025 Anion gap [Moles/Vol] 15 mmol/L Normal 8-15 [facility] Comment on above: Order Comment: Speci men Type: BLOOD SPECIMEN [facility] Address: [address] [place] [address] Performed By: #### 2 4321-2 #### [facility] CLIA [id number] [address] [place] [address] [place] Calcium [Mass/Vol] 9.4 mg/dL Normal 8.5-10.2 [facility] Comment on above: Order Comment: Speci men Type: BLOOD SPECIMEN [facility] Address: [address] [place] [address] Performed By: #### 2 4321-2 #### [facility] [id number] [address] [place] [address] [place] Chloride [Moles/Vol] 102 mmol/L Normal 98-107 [facility] Comment on above: Order Comment: Speci men Type: BLOOD SPECIMEN [facility] Address: [address] [place] [address] Performed By: #### 2 4321-2 #### [facility] CLIA [id number] [address] [place] [address] [place] CO2 [Moles/Vol] 11 mmol/L Low 22-30 [facility] Comment on above: Order Comment: Speci men Type: BLOOD SPECIMEN [facility] Address: [address] [place] [address] Performed By: #### 2 4321-2 #### [facility] [id number] [address] [place] [address] [place] Creatinine [Mass/Vol] 2.55 mg/dL High 0.73-1.22 [facility] Comment on above: Order Comment: Rose summers Type: BLOOD SPECIMEN [facility] Address: [address] [place] [address] Performed By: #### 2 4321-2 #### [facility] [id number] [address] [place] [address] [place] Creatinine and Glomerular filtration rate.predicted panel (S/P/Bld) 29 mL/min/1.73m??? Low >=60 [facility] Comment on above: Order Comment: Rose summers Type: BLOOD SPECIMEN [facility] Address: [address] [place] [address] Result Comment: Marlen mated Glomerular Filtration Rate [...] GFR. Performed By: #### 2 4321-2 #### [facility] [id number] [address] [place] [address] [place] Glucose [Mass/Vol] 117 mg/dL High 74-99 [facility] Comment on above: Order Comment: Rose summers Type: BLOOD SPECIMEN [facility] Address: [address] [place] [address] Result Comment: The [place] Diabetes Association (ADA) provides guidance for cutoff [...] Standards of Medical Care in Diabetes 2016, [place] Diabetes Association. Diabetes Care. 2016.39(Suppl 1). Performed By: #### 2 4321-2 #### [facility] CLIA [id number] [address] [place] [address] [place] Potassium [Moles/Vol] 3.5 mmol/L Low 3.7-5.1 [facility] Comment on above: Order Comment: Rose summers Type: BLOOD SPECIMEN [facility] Address: [address] [place] [address] Performed By: #### 2 4321-2 #### [facility] [id number] [address] [place] [address] [place] Sodium [Moles/Vol] 128 mmol/L Low 136-144 [facility] Comment on above: Order Comment: Rose summers Type: BLOOD SPECIMEN [facility] Address: [address] [place] [address] Performed By: #### 2 4321-2 #### [facility] [id number] [address] [place] [address] [place] Urea nitrogen [Mass/Vol] 74 mg/dL High 9-24 [facility] Comment on above: Order Comment: Rose summers Type: BLOOD SPECIMEN [facility] Address: [address] [place] [address] Performed By: #### 2 4321-2 #### [facility] [id number] [address] [place] [address] [place] CNOVon 03-29-2025 CNOV Office Visit (INTMWS ) FIRSTDOV ([id number]) 1970 M Date Time Provider Department 03/29/25 1:20 PM KELLEN SALGUERO INTMWS During your visit today, we recorded the following information about you: Temperature Pulse Respiration Blood pressure 97.6 degrees 88/minute 18/minute 108/72 Weight 84.8 kg Kellen Salguero, PATIENT FLOW COORDINATOR.[employer] 03/29/2025 1:34 PM Signed We discussed your recent emergency room visit and follow-up care: - You were seen in the ER on 03/28 for increased output from your ileostomy and decreased urine output, resulting in dehydration and acute kidney injury ([place]). You received 2 liters of IV fluids, and your blood pressure and heart rate improved before discharge. - Your lab results from the ER showed elevated BUN (77), creatinine (2.91), and low sodium (128). These findings are consistent with dehydration and kidney strain. Your creatinine level was improved compared to a prior result of 4.09 on 03/22. - You reported feeling better after the ER visit but noted fatigue and worsening symptoms when working outside in the heat. You are continuing to monitor your weekly labs as recommended by Dr. Bernard. - Continue drinking electrolyte-rich fluids such as Powerade and Liquid IV to maintain hydration. Avoid plain water as it may dilute your electrolytes further. - Monitor for symptoms of dehydration, including fatigue, nausea, dizziness, or dark urine, and seek medical attention if these occur. We discussed your upcoming nephrology appointment: - You have an appointment with a kidney specialist on April 13 to evaluate your chronic kidney disease and recurrent dehydration. This will help identify any underlying kidney issues contributing to your symptoms. - The joint special operations may order additional tests, such as blood work and a 24-hour urine collection, to better assess your kidney function. We discussed next steps for monitoring and follow-up: - I ordered a stat basic metabolic panel (BMP) today to reassess your kidney function and electrolyte levels after receiving IV fluids. I will contact you with the results once they are available. - I will also discuss your case with Dr. Bernard to explore whether standing orders for IV fluids might be appropriate in the future, though this is not typically done without further evaluation. Please continue your current medications and hydration strategies. If your symptoms worsen or you experience new concerning symptoms, such as confusion, severe fatigue, or significant changes in urine output, please contact our office or seek immediate medical care. Kellen Salguero, PERLA.[facility] 03/29/2025 1:43 PM Signed CC: Patient presents with: ER F/U HPI Recording using ambient [employer] software for draft documentation of the visit was discussed with the patient/authorized entry level account representative; all questions welcomed and answered. Patient/authorized entry level account representative agreed to proceed Triny Burrows is a 54-year-old male with a history of high-output ileostomy, CKD, and chronically elevated WBC counts, presenting for follow-up after an ER visit on 03/28 due to increased ostomy output and decreased urine output. Triny reports multiple ER visits since October for IV fluid administration due to dehydration and [place] secondary to high-output ileostomy. The most recent visit on 03/28 involved increased ostomy output and decreased urine output. Initial ER vitals included BP of 99/69 mmHg and HR of 100 bpm. Lab results showed WBC count of 18.2, Hgb of 12.1, Hct of 35.9, BUN of 77, Cr of 2.91, Na of 128, and K of 3.8. Triny received 2 liters of normal saline, with discharge vitals showing BP of 105/70 mmHg and HR of 84 bpm. No medication changes were made. 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 He is consuming Powerade with Liquid IV to maintain hydration. He experienced nausea and emesis last evening. He denies cephalalgia, blurred vision, disorientation, confusion, or lower extremity edema. He reports normal urine output today and urine is clear. Triny is on Lomotil and dicyclomine to manage high-output ileostomy, which he reports has significantly reduced output. He has an upcoming nephrology appointment on 04/13 and is currently undergoing weekly lab tests. Review of Systems Constitutional: Negative for chills, diaphoresis, fever and unexpected weight change. Respiratory: Negative for cough, shortness of breath and wheezing. Cardiovascular: Negative for chest pain, palpitations and leg swelling. Neurological: Negative for syncope and weakness. 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 Normal [facility] Absolute lymphocyte countOrd ered By: Hesham Jacobson on 03-28-2025 Lymphocytes Auto (Unsp spec) [#/Vol] 0.55 10*3/uL Low 0.83-4.51 [facility] Absolute neutrophil countOrd ered By: Hesham Jacobson on 03-28-2025 Neutrophils (Bld) [#/Vol] 15.8 10*3/uL High 2.0-7.7 [facility] Anion gap in Serum or Plasma Ordered By: Hesham Jacobson on 03-28-2025 Anion gap [Moles/Vol] 15 mmol/L 5-15 [facility] Automated lymphocyte count a s percentage of total leukocytesOrdered By: Hesham Jacobson on 03-28-2025 Lymphocytes/100 WBC Auto (Unsp spec) 3.0 % Low 19-41 [facility] BUN/creatinine ratioOrdered By: Hesham Jacobson on 03-28-2025 Urea nitrogen/Creatinine [Mass ratio] 26.4 mg/mg High 10-20 [facility] Basic Metabolic Profile (BMP )on 03-28-2025 BUN/CRE 26.4 RATIO High 10-20 [facility] Comment on above: Performed By: #### L 503.7505, L500.2500, L100.0100 #### [facility] [address] [place], [address] Calcium [Mass/Vol] 9.1 mg/dL Normal 7.6-11.0 [facility] Comment on above: Performed By: #### L 503.7505, L500.2500, L100.0100 #### [facility] [address] [place], [address] Chloride [Moles/Vol] 103 mmol/L Normal 98-108 [facility] Comment on above: Performed By: #### L 503.7505, L500.2500, L100.0100 #### [facility] [address] [place], [address] CO2 [Moles/Vol] 10.3 mmol/L Low 21.0-32.0 [facility] Comment on above: Performed By: #### L 503.7505, L500.2500, L100.0100 #### [facility] [address] [place], [address] Creatinine [Mass/Vol] 2.91 mg/dL High 0.70-1.20 [facility] Comment on above: Performed By: #### L 503.7505, L500.2500, L100.0100 #### [facility] [address] [place], [address] ECRCL 33.56 ml/min Low 50-250 [facility] Comment on above: Performed By: #### L 503.7505, L500.2500, L100.0100 #### [facility] [address] [place], [address] GAP 15 Normal 5-15 [facility] Comment on above: Performed By: #### L 503.7505, L500.2500, L100.0100 #### [facility] [address] [place], [address] GFR/1.73 sq M.predicted among non-blacks MDRD (S/P/Bld) [Vol rate/Area] 25 mL/min/{1.73_m2} Low >60 [facility] Comment on above: Result Comment: mL/m in/1.73m2 CKD-EPI Creatinine Equation (2020) Performed By: #### L 503.7505, L500.2500, L100.0100 #### [facility] [address] [place], [address] Glucose [Mass/Vol] 121 mg/dL High 70-99 [facility] Comment on above: Performed By: #### L 503.7505, L500.2500, L100.0100 #### [facility] [address] [place], [address] Potassium [Moles/Vol] 3.8 mmol/L Normal 3.3-5.1 [facility] Comment on above: Performed By: #### L 503.7505, L500.2500, L100.0100 #### [facility] [address] [place], [address] Sodium [Moles/Vol] 128 mmol/L Low 133-145 [facility] Comment on above: Performed By: #### L 503.7505, L500.2500, L100.0100 #### [facility] [address] [place], [address] Urea nitrogen [Mass/Vol] 77 mg/dL High 4-19 [facility] Comment on above: Performed By: #### L 503.7505, L500.2500, L100.0100 #### [facility] [address] [place], [address] Basophil percentageOrdered B y: Hesham Jacobson on 03-28-2025 Basophils/100 WBC (Bld) 0.1 % 0-1 [facility] Blood manual differential co mment interpretation (narrative result)Ordered By: Hesham Jacobson on 03-28-2025 Manual differential comment Marco (Bld) [Interp] SCANNED [facility] CBC W/Diff, Automatedon 03-01 PLT EST A Normal ADEQ [facility] Comment on above: Performed By: #### L 503.7505, L500.2500, L100.0100 #### [facility] [address] [place], [address] SMEAR COMMENT SCANNED Normal [facility] Comment on above: Performed By: #### L 503.7505, L500.2500, L100.0100 #### [facility] [address] [place], [address] Carbon dioxide, total [Moles /volume] in Central venous bloodOrdered By: Hesham Jacobson on 03-28-2025 CO2 [Moles/Vol] 10.3 mmol/L Low 21.0-32.0 [facility] Chloride assayOrdered By: Juan Jacobson on 03-28-2025 Chloride [Moles/Vol] 103 mmol/L 98-108 [facility] Emergency Department Summary on 03-28-2025 Emergency Department Summary [facility] Medical Records Department [address] [place] [address] Emergency Department Summary 03/28/25 MR#: [id number] Acct: [id number] Name: DOV BURROWS Rep #: [id number] : 1970 54 From: Hesham Jacobson MD PCP: Dr. Harjeet Bernard MD Status:REG ER Location: ED HPI History of Present Illness Chief Complaint: General Illness Detail of Chief Complaint: Concern for dehydration. 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 He has had history of high output ileostomy. And has had issues with acute kidney injury and chronic kidney disease. He is concerned due to the heat and the output of his ostomy and is not keeping up with his fluids. Denies abdominal pain. Denies nausea or vomiting. Denies fever. Believes he is urinating a little less also. But no dysuria. He has had episodes like this before. Prior similar symptoms: Yes Recent Illness/Hospitalization: No PFSH PFSH Medical History Dehydration Acute kidney injury Cancer of appendix Ileostomy present Acute appendicitis [...] 11/26/24 12/15/24 H istory release psyllium husk 3 gram oral powder 1 packet PO TID #54 ea 11/29/24 Rx packet (Daily Fiber (psyllium-aspartame)) dicyclomine 20 mg tablet 20 mg PO .QID PRN diarrhea #20 tab s 12/16/24 Unknown Rx diphenoxylate-atropine 2.5 2 tab PO Q6H PRN diarrhea #30 tabs 12/16/24 Unknown Rx mg-0.025 mg tablet (Lomotil) Allergy/AdvReac Type Severity Reaction Status Date / Time No Known Allergies Allergy Verified 03/28/25 13:01 Family History Other VTE (venous thromboembolism) Surgical History S/P splenectomy H/O colectomy Social History household members: spouse housing: house Smoking Status: Never smoker ROS ROS ED ROS Narrative Tired. Constitutional Constitutional ED: Denies chills or fever(s) Eyes Eyes: Denies blurry vision ENT ENT ED: Denies ear pain Cardiovascular Cardiovascular: Denies chest pain Respiratory/Chest Respiratory/Chest: Denies cough or dyspnea Gastrointestinal Gastrointestinal: Reports diarrhea and other Details: High output ileostomy. ; Denies abdominal pain, nausea or vomiting Genitourinary Genitourinary ED: Denies dysuria or hematuria Musculoskeletal Musculoskeletal: Denies arthralgias Integumentary Denies abscess Neurologic Neurologic: Denies headache(s) Psychiatric Psychiatric: Denies anxiety or depression Endocrine Endocrinology: Denies cold intolerance Hematologic/Lymphatic Hematologic/Lymphatic: Reports none Allergic/Immunologic Allergic/Immunologic ED: Denies mouth swelling, tongue swelling or urticaria EXAM Physical Exam Narrative Exam Narrative: Well-appearing 54-year-old male. Initial blood pressure was low at 99/69. Heart rate 100. H EENT exam pupils are unreactive light. Mild dry mucous members. Neck nontender no JVD. Lungs clear to auscultation bilaterally. Heart rate about 100 no murmur. Chest wall and ribs nontender. Abdomen soft nondistended normal bowel sounds without peritoneal signs. Ostomy bag in his lower abdomen with loose stool. Nontender. Nondistended. Moving all 4 extremities. Nontender no edema. Back nontender. Neurologically he is awake alert. Answer questions following commands. Const Vital Signs: 03/28/25 12:59 03/28/25 13:13 03/28/25 14:16 Temperature 98.3 F Temperature Source Oral Pulse Rate 100 84 Respiratory Rate 19 H 16 Respiratory Effort Normal Respiratory Pattern Normal Blood Pressure 99/69 105/71 Blood Pressure Mean 79 82 Pulse Ox 98 100 Oxygen Delivery Method Room Air 03/28/25 15:26 Temperature 98.3 F Temperature Source Pulse Rate 84 Respiratory Rate 16 Respiratory Effort Respiratory Pattern Blood Pressure 106/70 Blood Pressure Mean 82 Pulse Ox 98 Oxygen Delivery Method Positive well nourished and well developed; Negative for cachectic, contractures or unkempt Gener (more content not included)... Normal [facility] Eosinophil percentageOrdered By: Hesham Jacobson on 03-28-2025 Eosinophils/100 WBC (Bld) 0.2 % 0-5 [facility] Erythrocyte distribution wid th ratioOrdered By: Hesham Jacobson on 03-28-2025 Erythrocyte distribution width (RBC) [Ratio] 14.8 % High 11.6-14.6 [facility] Erythrocyte distribution wid th standard deviationOrdered By: Hesham Jacobson on 03-28-2025 Erythrocyte distribution width (RBC) [Ratio] 51.8 fl High 35.1-43.9 [facility] Glomerular filtration rate ( GFR) estimation/1.73 sq m using serum, plasma, or whole bOrdered By: Hesham Jacobson on 03-28-2025 GFR/1.73 sq M.predicted among non-blacks MDRD (S/P/Bld) [Vol rate/Area] 25 mL/min/{1.73_m2} Low >60 [facility] Comment on above: mL/min/1.73m2 CKD-EP I Creatinine Equation (2020) Hematocrit Auto (Bld) [Volum e fraction]Ordered By: Hesham Jacobson on 03-28-2025 Hematocrit (Bld) [Volume fraction] 35.9 % Low 40-54 [facility] Hemoglobin measurementOrdere d By: Hesham Jacobson on 03-28-2025 Hemoglobin (Bld) [Mass/Vol] 12.1 g/dL Low 13.0-16.5 [facility] Immature granulocytes/100 WB C Auto (Bld)Ordered By: Hesham Jacobson on 03-28-2025 Immature granulocytes/100 WBC (Bld) 0.500 % 0.0-0.9 [facility] Comment on above: IG% - Immature Granu locytes (promyelocytes, myelocytes and metamyelocytes) > 1% indicates that a LEFT SHIFT is Present. MCV (mean corpuscular volume ) determinationOrdered By: Hesham Jacobson on 03-28-2025 MCV (RBC) [Entitic vol] 94.7 fL High 80-94 [facility] Mean corpuscular hemoglobin (MCH) determinationOrdered By: Hesham Jacobson on 03-28-2025 MCH (RBC) [Entitic mass] 31.9 pg 27.0-32.0 [facility] Mean corpuscular hemoglobin concentration (MCHC) determinationOrdered By: Hesham Jacobson on 03-28-2025 MCHC (RBC) [Mass/Vol] 33.7 g/dL 32-36 [facility] Mean platelet volume determi nationOrdered By: Hesham Jacobson on 03-28-2025 Platelet mean volume (Bld) [Entitic vol] 8.8 fL 6.2-12.0 [facility] Monocyte percentageOrdered B y: Hesham Jacobson on 03-28-2025 Monocytes/100 WBC (Bld) 9.5 % 0-10 [facility] Neutrophil percentageOrdered By: Hesham Jacobson on 03-28-2025 Neutrophils/100 WBC (Bld) 86.7 % High 47-70 [facility] Nucleated red blood cell per centageOrdered By: Hesham Jacobson on 03-28-2025 Nucleated RBC/100 WBC (Bld) [Ratio] 0 % 0-5 [facility] Platelet countOrdered By: Juan Jacobson on 03-28-2025 Platelets (Bld) [#/Vol] 367 10*3/uL 150-450 [facility] Platelet estimateOrdered By: Hesham Jacobson on 03-28-2025 Platelets LM Ql (Bld) A ADEQ [facility] Potassium measurement (mass/ volume)Ordered By: Hesham Jacobson on 03-28-2025 Potassium (Unsp spec) [Mass/Vol] 3.8 mmol/L 3.3-5.1 [facility] RBC Auto (Bld) [#/Vol]Ordere d By: Hesham Jacobson on 03-28-2025 RBC (Bld) [#/Vol] 3.79 10*6/uL Low 4.6-6.2 [facility] Serum creatinine measurement (mass/volume)Ordered By: Hesham Jacobson on 03-28-2025 Creatinine [Mass/Vol] 2.91 mg/dL High 0.70-1.20 [facility] Serum glucose measurement (m ass/volume)Ordered By: Hesham Jacobson on 03-28-2025 Glucose [Mass/Vol] 121 mg/dL High 70-99 [facility] Serum or plasma calcium tran urement (mass/volume)Ordered By: Hesham Jacobson on 03-28-2025 Calcium [Mass/Vol] 9.1 mg/dL 7.6-11.0 [facility] Serum or plasma urea nitroge n measurement (mass/volume)Ordered By: Hesham Jacobson on 03-28-2025 Urea nitrogen [Mass/Vol] 77 mg/dL High 4-19 [facility] Sodium levelOrdered By: Hesham Jacobson on 03-28-2025 Sodium [Moles/Vol] 128 mmol/L Low 133-145 [facility] White blood cell (WBC) count Ordered By: Hesham Jacobson on 03-28-2025 WBC (Bld) [#/Vol] 18.2 10*3/uL High 4.4-11.0 [facility] Basic metabolic 2000 panelon 03-22-2025 Anion gap [Moles/Vol] 20 mmol/L High 8-15 [facility] Comment on above: Order Comment: Speci men Type: BLOOD SPECIMENOrdering Facility: [facility] Address: [address] [place] [address] Performed By: #### 2 4321-2 ####[facility] LABCLIA [id number] [place] [address] [place] Calcium [Mass/Vol] 9.4 mg/dL Normal 8.5-10.2 [facility] Comment on above: Order Comment: Speci men Type: BLOOD SPECIMENOrdering Facility: [facility] Address: [address] [place] [address] Performed By: #### 2 4321-2 ####[facility] LABCLIA [id number] [place] [address] [place] Chloride [Moles/Vol] 100 mmol/L Normal 98-107 [facility] Comment on above: Order Comment: Speci men Type: BLOOD SPECIMENOrdering Facility: [facility] Address: [address] [place] [address] Performed By: #### 2 4321-2 ####[facility] LABCLIA [id number] [place] [address] [place] CO2 [Moles/Vol] 7 mmol/L Critically low 22-30 [facility] Comment on above: Order Comment: Speci men Type: BLOOD SPECIMENOrdering Facility: [facility] Address: [address] [place] [address] Performed By: #### 2 4321-2 ####[facility] LABIA [id number] [place] [address] [place] Creatinine [Mass/Vol] 4.09 mg/dL High 0.73-1.22 [facility] Comment on above: Order Comment: Speci men Type: BLOOD SPECIMENOrdering Facility: [facility] Address: [address] [place] [address] Performed By: #### 2 4321-2 ####[facility] LABIA [id number] [place] [id number] [place] Creatinine and Glomerular filtration rate.predicted panel (S/P/Bld) 17 mL/min/1.73m??? Low >=60 [facility] Comment on above: Order Comment: Speci men Type: BLOOD SPECIMENOrdering Facility: [facility] Address: [address] [place] [address] Result Comment: Marlen mated Glomerular Filtration Rate [...] actual GFR. Performed By: #### 2 4321-2 ####[facility] LABCLIA [id number] [address] [address] [place] Glucose [Mass/Vol] 129 mg/dL High 74-99 [facility] Comment on above: Order Comment: Speccain summers Type: BLOOD SPECIMENOrdering Facility: [facility] Address: [address] [place] [address] Result Comment: The [employer] Diabetes Association (ADA) provides guidance for cutoff [...] Standards of Medical Care in Diabetes 2016, [employer]. Diabetes Care. 2016.39(Suppl 1). Performed By: #### 2 4321-2 ####[facility]CLIA [id number] [address] [address] [place] Potassium [Moles/Vol] 3.8 mmol/L Normal 3.7-5.1 [facility] Comment on above: Order Comment: Rose summers Type: BLOOD SPECIMENOrdering Facility: [facility] Address: [address] [place] [address] Performed By: #### 2 4321-2 ####[facility]CLIA [id number] [facility] [address] [address] [place] Sodium [Moles/Vol] 127 mmol/L Low 136-144 [facility] Comment on above: Order Comment: Speci men Type: BLOOD SPECIMENOrdering Facility: [facility] Address: [address] [place] [id number] Performed By: #### 2 4321-2 ####[facility] LABCLIA [id number] [address] [address] [place] Urea nitrogen [Mass/Vol] 68 mg/dL High 9-24 [facility] Comment on above: Order Comment: Speci men Type: BLOOD SPECIMENOrdering Facility: [facility] Address: [address] [place] [address] Performed By: #### 2 4321-2 ####[facility] LABIA [id number] [place] [id number] [place] Basic metabolic 2000 panelon 03-08-2025 Anion gap [Moles/Vol] 15 mmol/L Normal 8-15 [facility] Comment on above: Order Comment: Speci men Type: BLOOD SPECIMENOrdering Facility: [facility] Address: [address] [place], [place] [address] Performed By: #### 2 4321-2 ####[facility] LABIA [id number] [place] [id number] [place] Calcium [Mass/Vol] 9.0 mg/dL Normal 8.5-10.2 [facility] Comment on above: Order Comment: Speci men Type: BLOOD SPECIMENOrdering Facility: [facility] Address: [address] [place], [place] [address] Performed By: #### 2 4321-2 ####[facility] LABIA [id number] [place] [id number] [place] Chloride [Moles/Vol] 107 mmol/L Normal 98-107 [facility] Comment on above: Order Comment: Speci men Type: BLOOD SPECIMENOrdering Facility: [facility] Address: [address] [place], [place] [address] Performed By: #### 2 4321-2 ####[facility] LABCLIA [id number] [address] [address] [place] CO2 [Moles/Vol] 13 mmol/L Low 22-30 [facility] Comment on above: Order Comment: Speci men Type: BLOOD SPECIMENOrdering Facility: [facility] Address: [address] [place] [address] Performed By: #### 2 4321-2 ####[facility] LABCLIA [id number] [place] [id number] [place] Creatinine [Mass/Vol] 2.40 mg/dL High 0.73-1.22 [facility] Comment on above: Order Comment: Speci men Type: BLOOD SPECIMENOrdering Facility: [facility] Address: [address] [place] [address] Performed By: #### 2 4321-2 ####[facility] LABIA [id number] [place] [address] [place] Creatinine and Glomerular filtration rate.predicted panel (S/P/Bld) 32 mL/min/1.73m??? Low >=60 [facility] Comment on above: Order Comment: Speci men Type: BLOOD SPECIMENOrdering Facility: [facility] Address: [address] [place] [address] Result Comment: Marlen mated Glomerular Filtration Rate [...] actual GFR. Performed By: #### 2 4321-2 ####[facility]CL[facility] [id number] [facility] [address] [address] [place] Glucose [Mass/Vol] 72 mg/dL Low 74-99 [facility] Comment on above: Order Comment: Speci men Type: BLOOD SPECIMENOrdering Facility: [facility] Address: [address] [place] [phone] Result Comment: The [employer] Diabetes Association (ADA) provides guidance for cutoff [...] Standards of Medical Care in Diabetes 2016, [employer]. Diabetes Care. 2016.39(Suppl 1). Performed By: #### 2 4321-2 ####[facility]CLIA [id number] [place] [address] [place] Potassium [Moles/Vol] 4.2 mmol/L Normal 3.7-5.1 [facility] Comment on above: Order Comment: Speci men Type: BLOOD SPECIMENOrdering Facility: [facility] Address: [address] [place], [place] [address] Performed By: #### 2 4321-2 ####[facility] LABCLIA [id number] [place] [id number] [place] Sodium [Moles/Vol] 135 mmol/L Low 136-144 [facility] Comment on above: Order Comment: Speci men Type: BLOOD SPECIMENOrdering Facility: [facility] Address: [address] [place] [address] Performed By: #### 2 4321-2 ####[facility] LABCLIA [id number] [place] [id number] [place] Urea nitrogen [Mass/Vol] 33 mg/dL High 9-24 [facility] Comment on above: Order Comment: Speci men Type: BLOOD SPECIMENOrdering Facility: [facility] Address: [address] [place] [address] Performed By: #### 2 4321-2 ####[facility]CLIA [id number] [place] [address] [place] Basic metabolic 2000 panelon 02-23-2025 Anion gap [Moles/Vol] 15 mmol/L Normal 8-15 [facility] Comment on above: Order Comment: Speci men Type: BLOOD SPECIMEN [facility] Address: [address] [place] [address] Performed By: #### 2 4321-2 #### [facility] CLIA [id number] [address] [place] [address] [place] Calcium [Mass/Vol] 8.2 mg/dL Low 8.5-10.2 [facility] Comment on above: Order Comment: Speci men Type: BLOOD SPECIMEN [facility] Address: [address] [place] [address] Performed By: #### 2 4321-2 #### [facility] CLIA [id number] [address] [place] [address] [place] Chloride [Moles/Vol] 107 mmol/L Normal 98-107 [facility] Comment on above: Order Comment: Speci men Type: BLOOD SPECIMEN [facility] Address: [address] [place] [address] Performed By: #### 2 4321-2 #### [facility] CLIA [id number] [address] [place] [address] [place] CO2 [Moles/Vol] 14 mmol/L Low 22-30 [facility] Comment on above: Order Comment: Speci men Type: BLOOD SPECIMEN [facility] Address: [address] [place] [address] Performed By: #### 2 4321-2 #### [facility] CLIA [id number] [address] [place], [place] [address] [place] Creatinine [Mass/Vol] 1.94 mg/dL High 0.73-1.22 [facility] Comment on above: Order Comment: Rose summers Type: BLOOD SPECIMEN [facility] Address: [address] [place] [address] Performed By: #### 2 4321-2 #### [facility] CLIA [id number] [address] [place] [address] [place] Creatinine and Glomerular filtration rate.predicted panel (S/P/Bld) 41 mL/min/1.73m??? Low >=60 [facility] Comment on above: Order Comment: Rose summers Type: BLOOD SPECIMEN [facility] Address: [address] [place] [address] Result Comment: Marlen mated Glomerular Filtration Rate [...] GFR. Performed By: #### 2 4321-2 #### [facility] CLIA [id number] [address] [place] [address] [place] Glucose [Mass/Vol] 86 mg/dL Normal 74-99 [facility] Comment on above: Order Comment: Rose summers Type: BLOOD SPECIMEN [facility] Address: [address] [place] [address] Result Comment: The [employer] Diabetes Association (ADA) provides guidance for cutoff [...] Standards of Medical Care in Diabetes 2016, [employer]. Diabetes Care. 2016.39(Suppl 1). Performed By: #### 2 4321-2 #### [facility] CLIA [id number] [address] [place] [address] [place] Potassium [Moles/Vol] 4.1 mmol/L Normal 3.7-5.1 [facility] Comment on above: Order Comment: Speci men Type: BLOOD SPECIMEN [facility] Address: [address] [place] [address] Performed By: #### 2 4321-2 #### [facility] CLIA [id number] [address] [place] [address] [place] Sodium [Moles/Vol] 136 mmol/L Normal 136-144 [facility] Comment on above: Order Comment: Speci men Type: BLOOD SPECIMEN [facility] Address: [address] [place] [address] Performed By: #### 2 4321-2 #### [facility] CLIA [id number] [address] [place] [address] [place] Urea nitrogen [Mass/Vol] 27 mg/dL High 9-24 [facility] Comment on above: Order Comment: Speci men Type: BLOOD SPECIMEN [facility] Address: [address] [place] [address] Performed By: #### 2 4321-2 #### [facility] CLIA [id number] [address] [place], [place] [address] [place] Basic metabolic 2000 panelon 02-08-2025 Anion gap [Moles/Vol] 13 mmol/L Normal 8-15 [facility] Comment on above: Order Comment: Speci men Type: BLOOD SPECIMENOrdering Facility: [facility] Address: [address] [place] [address] Performed By: #### 2 4321-2 ####[facility] LABCLIA [id number] [facility] [address] [place] [address] [place] Calcium [Mass/Vol] 8.4 mg/dL Low 8.5-10.2 [facility] Comment on above: Order Comment: Speci men Type: BLOOD SPECIMENOrdering Facility: [facility] Address: [address] [place] [address] Performed By: #### 2 4321-2 ####[facility]CLIA [id number] [facility] [address], [facility] [place] Chloride [Moles/Vol] 111 mmol/L High 98-107 [facility] Comment on above: Order Comment: Speci men Type: BLOOD SPECIMENOrdering Facility: [facility] Address: [address] [place] [address] Performed By: #### 2 4321-2 ####[facility] LABCLIA [id number] [facility] [place] [address] [place] CO2 [Moles/Vol] 15 mmol/L Low 22-30 [facility] Comment on above: Order Comment: Speci men Type: BLOOD SPECIMENOrdering Facility: [facility] Address: [address] [place] [address] Performed By: #### 2 4321-2 ####[facility] LABCLIA [id number] [place] [id number] [place] Creatinine [Mass/Vol] 2.34 mg/dL High 0.73-1.22 [facility] Comment on above: Order Comment: Speci men Type: BLOOD SPECIMENOrdering Facility: [facility] Address: [address] [place] [address] Performed By: #### 2 4321-2 ####[facility]CLIA [id number] [facility] [place] [id number] [place] Creatinine and Glomerular filtration rate.predicted panel (S/P/Bld) 33 mL/min/1.73m??? Low >=60 [facility] Comment on above: Order Comment: Rose summers Type: BLOOD SPECIMENOrdering Facility: [facility] Address: [address] [place] [address] Result Comment: Marlen mated Glomerular Filtration Rate [...] actual GFR. Performed By: #### 2 4321-2 ####[facility] [id number] [place] [address] [place] Glucose [Mass/Vol] 75 mg/dL Normal 74-99 [facility] Comment on above: Order Comment: Rose summers Type: BLOOD SPECIMENOrdering Facility: [facility] Address: [address] [place] [address] Result Comment: The [employer] Diabetes Association (ADA) provides guidance for cutoff [...] Standards of Medical Care in Diabetes 2016, [employer]. Diabetes Care. 2016.39(Suppl 1). Performed By: #### 2 4321-2 ####[facility] [id number] [place] [address] [place] Potassium [Moles/Vol] 3.5 mmol/L Low 3.7-5.1 [facility] Comment on above: Order Comment: Rose summers Type: BLOOD SPECIMENOrdering Facility: [facility] Address: [address] [place] [address] Performed By: #### 2 4321-2 ####[facility] LABIA [id number] [place] [id number] [place] Sodium [Moles/Vol] 139 mmol/L Normal 136-144 [facility] Comment on above: Order Comment: Speci men Type: BLOOD SPECIMENOrdering Facility: [facility] Address: [address] [place] [address] Performed By: #### 2 4321-2 ####[facility] [id number] [place] [address] [place] Urea nitrogen [Mass/Vol] 24 mg/dL Normal 9-24 [facility] Comment on above: Order Comment: Speci men Type: BLOOD SPECIMENOrdering Facility: [facility] Address: [address] [place] [address] Performed By: #### 2 4321-2 ####[facility] [id number] [place] [phone] [facility] Paula 02-03-2025 AGNES Telephone (MELANIE) FIRST,DOV Zepeda ([id number]) 1970 M Date Time Provider Department 02/03/25 NICOLASA DENISE During your visit today, we recorded the following information about you: Callie Hall 02/03/2025 2:41 PM Signed [phone] Dov Patient calling to go over ostomy output with the nurse. States if she doesn't need to call him, a Jimmy Fairly message will be ok. Cleo Parekh, PEDRO LUIS 02/03/2025 3:30 PM Signed Mychart sent. Allergies As of Date: 02/03/2025 (No [...] Status:Closed by CALLIE HALL on 02/03/25 Normal [facility] Basic metabolic 2000 panelon 02-01-2025 Anion gap [Moles/Vol] 13 mmol/L Normal 8-15 [facility] Comment on above: Order Comment: Speci men Type: BLOOD SPECIMENOrdering Facility: [facility] Address: [address] [place] [address] Performed By: #### 2 4321-2 ####[facility] LABCLIA [id number] [place] [address] [place] Calcium [Mass/Vol] 8.1 mg/dL Low 8.5-10.2 [facility] Comment on above: Order Comment: Speci men Type: BLOOD SPECIMENOrdering Facility: [facility] Address: [address] [place] [address] Performed By: #### 2 4321-2 ####[facility] LABCLIA [id number] [place] [id number] [place] Chloride [Moles/Vol] 110 mmol/L High 98-107 [facility] Comment on above: Order Comment: Speci men Type: BLOOD SPECIMENOrdering Facility: [facility] Address: [address] [place] [address] Performed By: #### 2 4321-2 ####[facility] LABCLIA [id number] [place] [address] [place] CO2 [Moles/Vol] 16 mmol/L Low 22-30 [facility] Comment on above: Order Comment: Speci men Type: BLOOD SPECIMENOrdering Facility: [facility] Address: [address] [place] [address] Performed By: #### 2 4321-2 ####[facility]CLIA [id number] [place] [address] [place] Creatinine [Mass/Vol] 2.10 mg/dL High 0.73-1.22 [facility] Comment on above: Order Comment: Speci men Type: BLOOD SPECIMENOrdering Facility: [facility] Address: [address] [place] [address] Performed By: #### 2 4321-2 ####[facility]CLIA [id number] [place] [id number] [place] Creatinine and Glomerular filtration rate.predicted panel (S/P/Bld) 37 mL/min/1.73m??? Low >=60 [facility] Comment on above: Order Comment: Speci men Type: BLOOD SPECIMENOrdering Facility: [facility] Address: [address] [place] [address] Result Comment: Marlen mated Glomerular Filtration Rate [...] actual GFR. Performed By: #### 2 4321-2 ####[facility]IA [id number] [place] [address] [place] Glucose [Mass/Vol] 77 mg/dL Normal 74-99 [facility] Comment on above: Order Comment: Rose summers Type: BLOOD SPECIMENOrdering Facility: [facility] Address: [address] [place] [address] Result Comment: The [employer] Diabetes Association (ADA) provides guidance for cutoff [...] Standards of Medical Care in Diabetes 2016, [employer]. Diabetes Care. 2016.39(Suppl 1). Performed By: #### 2 4321-2 ####[facility]IA [id number] [place] [id number] [place] Potassium [Moles/Vol] 4.2 mmol/L Normal 3.7-5.1 [facility] Comment on above: Order Comment: Rose summers Type: BLOOD SPECIMENOrdering Facility: [facility] Address: [address] [place] [id number] Performed By: #### 2 4321-2 ####[facility]IA [id number] [place] [phone] [place] Sodium [Moles/Vol] 139 mmol/L Normal 136-144 [facility] Comment on above: Order Comment: Speci men Type: BLOOD SPECIMENOrdering Facility: [facility] Address: [address] [place] [address] Performed By: #### 2 4321-2 ####[facility]CLIA [id number] [address] [facility] Urea nitrogen [Mass/Vol] 26 mg/dL High 9-24 [facility] Comment on above: Order Comment: Speci men Type: BLOOD SPECIMENOrdering Facility: [facility] Address: [address] [place] [address] Performed By: #### 2 4321-2 ####[facility]CLIA [id number] [address] CNPFaviola 01-27-2025 RICHIEN Telephone (MELANIE) FIRST,DOV Zepeda ([id number]) 1970 M Date Time Provider Department 01/27/25 [...] Status:Closed by CLEO PAREKH on 01/27/25 Normal [facility] Basic metabolic 2000 panelon 01-25-2025 Anion gap [Moles/Vol] 13 mmol/L Normal 8-15 [facility] Comment on above: Order Comment: Speci men Type: BLOOD SPECIMENOrdering Facility: [facility] Address: [address] [place] [address] Performed By: #### 2 4321-2 ####[facility]CLIA [id number] [place] [address] [place] Calcium [Mass/Vol] 8.6 mg/dL Normal 8.5-10.2 [facility] Comment on above: Order Comment: Speci men Type: BLOOD SPECIMENOrdering Facility: [facility] Address: [address] [place] [address] Performed By: #### 2 4321-2 ####[facility]CLIA [id number] [place] [id number] [place] Chloride [Moles/Vol] 104 mmol/L Normal 98-107 [facility] Comment on above: Order Comment: Speci men Type: BLOOD SPECIMENOrdering Facility: [facility] Address: [address] [place] [address] Performed By: #### 2 4321-2 ####[facility]CLIA [id number] [place] [address] [place] CO2 [Moles/Vol] 18 mmol/L Low 22-30 [facility] Comment on above: Order Comment: Speci men Type: BLOOD SPECIMENOrdering Facility: [facility] Address: [address] [place] [address] Performed By: #### 2 4321-2 ####[facility] LABCLIA [id number] [place] [address] [place] Creatinine [Mass/Vol] 2.32 mg/dL High 0.73-1.22 [facility] Comment on above: Order Comment: Speci men Type: BLOOD SPECIMENOrdering Facility: [facility] Address: [address] [place] [address] Performed By: #### 2 4321-2 ####[facility] LABIA [id number] [place] [id number] [place] Creatinine and Glomerular filtration rate.predicted panel (S/P/Bld) 33 mL/min/1.73m??? Low >=60 [facility] Comment on above: Order Comment: Speci men Type: BLOOD SPECIMENOrdering Facility: [facility] Address: [address] [place] [address] Result Comment: Marlen mated Glomerular Filtration Rate [...] actual GFR. Performed By: #### 2 4321-2 ####[facility] LABCLIA [id number] [address] [address] [place] Glucose [Mass/Vol] 107 mg/dL High 74-99 [facility] Comment on above: Order Comment: Speci men Type: BLOOD SPECIMENOrdering Facility: [facility] Address: [address] [place] [address] Result Comment: The [employer] Diabetes Association (ADA) provides guidance for cutoff [...] Standards of Medical Care in Diabetes 2016, [employer]. Diabetes Care. 2016.39(Suppl 1). Performed By: #### 2 4321-2 ####[facility] LABCLIA [id number] [address] [address] [place] Potassium [Moles/Vol] 3.4 mmol/L Low 3.7-5.1 [facility] Comment on above: Order Comment: Rafaeli men Type: BLOOD SPECIMENOrdering Facility: [facility] Address: [address] [id number] Performed By: #### 2 4321-2 ####[facility] LABCLIA [id number] [facility] [address] [address] [place] Sodium [Moles/Vol] 135 mmol/L Low 136-144 [facility] Comment on above: Order Comment: Speci men Type: BLOOD SPECIMENOrdering Facility: [facility] Address: [address] [place] [address] Performed By: #### 2 4321-2 ####[facility] LABCLIA [id number] [place] [address] [place] Urea nitrogen [Mass/Vol] 29 mg/dL High 9-24 [facility] Comment on above: Order Comment: Speci men Type: BLOOD SPECIMENOrdering Facility: [facility] Address: [address] [place] [address] Performed By: #### 2 4321-2 ####[facility] LABCLIA [id number] [place] [address] [place] Basic metabolic 2000 panelon 01-18-2025 Anion gap [Moles/Vol] 15 mmol/L Normal 8-15 [facility] Comment on above: Order Comment: Speci men Type: BLOOD SPECIMENOrdering Facility: [facility] Address: [address] [place] [address] Performed By: #### 2 4321-2 ####[facility] LABCLIA [id number] [place] [address] [place] Calcium [Mass/Vol] 8.2 mg/dL Low 8.5-10.2 [facility] Comment on above: Order Comment: Speci men Type: BLOOD SPECIMENOrdering Facility: [facility] Address: [address] [place] [address] Performed By: #### 2 4321-2 ####[facility] LABCLIA [id number] [place] [id number] [place] Chloride [Moles/Vol] 104 mmol/L Normal 98-107 [facility] Comment on above: Order Comment: Speci men Type: BLOOD SPECIMENOrdering Facility: [facility] Address: [address] [place] [address] Performed By: #### 2 4321-2 ####[facility] LABCLIA [id number] [place] [id number] [place] CO2 [Moles/Vol] 12 mmol/L Low 22-30 [facility] Comment on above: Order Comment: Speci men Type: BLOOD SPECIMENOrdering Facility: [facility] Address: [address] [place] [address] Performed By: #### 2 4321-2 ####[facility] LABCLIA [id number] [place] [id number] [place] Creatinine [Mass/Vol] 3.12 mg/dL High 0.73-1.22 [facility] Comment on above: Order Comment: Speci men Type: BLOOD SPECIMENOrdering Facility: [facility] Address: [address] [place] [address] Performed By: #### 2 4321-2 ####[facility] LABIA [id number] [place] [address] [place] Creatinine and Glomerular filtration rate.predicted panel (S/P/Bld) 23 mL/min/1.73m??? Low >=60 [facility] Comment on above: Order Comment: Speci men Type: BLOOD SPECIMENOrdering Facility: [facility] Address: [address] [place] [address] Result Comment: Marlen mated Glomerular Filtration Rate [...] actual GFR. Performed By: #### 2 4321-2 ####[facility] LABCLIA [id number] [place] [id number] [place] Glucose [Mass/Vol] 106 mg/dL High 74-99 [facility] Comment on above: Order Comment: Speci men Type: BLOOD SPECIMENOrdering Facility: [facility] Address: [address] [place] [address] Result Comment: The [employer] Diabetes Association (ADA) provides guidance for cutoff [...] Standards of Medical Care in Diabetes 2016, [employer]. Diabetes Care. 2016.39(Suppl 1). Performed By: #### 2 4321-2 ####[facility] LABCLIA [id number] [place] [address] [place] Potassium [Moles/Vol] 2.7 mmol/L Low 3.7-5.1 [facility] Comment on above: Order Comment: Speci men Type: BLOOD SPECIMENOrdering Facility: [facility] Address: [address] [place] [address] Performed By: #### 2 1-2 ####[facility] LABIA [id number] [place] [address] [place] Sodium [Moles/Vol] 131 mmol/L Low 136-144 [facility] Comment on above: Order Comment: Speci men Type: BLOOD SPECIMENOrdering Facility: [facility] Address: [address] [place] [address] Performed By: #### 2 4321-2 ####[facility] LABCLIA [id number] [place] [address] [place] Urea nitrogen [Mass/Vol] 55 mg/dL High 9-24 [facility] Comment on above: Order Comment: Speci men Type: BLOOD SPECIMENOrdering Facility: [facility] Address: [address] [id number] Performed By: #### 2 4321-2 ####[facility] ERNIE [id number] [address] [place] Paula 01-18-2025 AGNES Telephone (MELANIE) FIRSTDOV ([id number]) 1970 M Date Time Provider Department 01/18/25 [...] discuss current symptoms and output Output levels: 4/22: 59 4/23: 32 - not great appetite- felt full [...] 09/26/2022 Intra-ab (more content not included)... Normal [facility] Absolute lymphocyte countOrd ered By: Iker Richards on 01-15-2025 Lymphocytes Auto (Unsp spec) [#/Vol] 0.67 10*3/uL Low 0.83-4.51 [facility] Absolute neutrophil countOrd ered By: Iker Richards on 01-15-2025 Neutrophils (Bld) [#/Vol] 11.6 10*3/uL High 2.0-7.7 [facility] Anion gap in Serum or Plasma Ordered By: Iker Richards on 01-15-2025 Anion gap [Moles/Vol] 14 mmol/L 5-15 [facility] Automated lymphocyte count a s percentage of total leukocytesOrdered By: Iker Richards on 01-15-2025 Lymphocytes/100 WBC Auto (Unsp spec) 4.9 % Low 19-41 [facility] BUN/creatinine ratioOrdered By: Iker Richards on 01-15-2025 Urea nitrogen/Creatinine [Mass ratio] 15.8 mg/mg 10- [facility] Basic Metabolic Profile (BMP )on 01-15-2025 BUN/CRE 15.8 RATIO Normal - [facility] Comment on above: Performed By: #### L 503.7505, L500.2500, L100.0100 #### [facility] [address] [place], [address] Performed By: #### L 100.0100, L500.2500 ####[facility] [address] [place], [address] Calcium [Mass/Vol] 8.6 mg/dL Normal 7.6-11.0 [facility] Comment on above: Performed By: #### L 503.7505, L500.2500, L100.0100 #### [facility] [address] [place], [address] Chloride [Moles/Vol] 109 mmol/L High 98-108 [facility] Comment on above: Performed By: #### L 503.7505, L500.2500, L100.0100 #### [facility] [address] [place], [address] CO2 [Moles/Vol] 7.1 mmol/L Invalid Interpretation Code 21.0-32.0 [facility] Comment on above: Result Comment: Crit ical Result(s) Called at: 2300 by: ANDREIA SIFUENTES TO DR. RICHARDS??Results read back by same. Performed By: #### L 503.7505, L500.2500, L100.0100 #### [facility] [address] [place], [address] Creatinine [Mass/Vol] 2.93 mg/dL High 0.70-1.20 [facility] Comment on above: Performed By: #### L 503.7505, L500.2500, L100.0100 #### [facility] [address] [place], [address] ECRCL 33.33 ml/min Low 50-250 [facility] Comment on above: Performed By: #### L 503.7505, L500.2500, L100.0100 #### [facility] [address] [place], [address] GAP 14 Normal 5-15 [facility] Comment on above: Performed By: #### L 503.7505, L500.2500, L100.0100 #### [facility] [address] [place], [address] GFR/1.73 sq M.predicted among non-blacks MDRD (S/P/Bld) [Vol rate/Area] 25 mL/min/{1.73_m2} Low >60 [facility] Comment on above: Result Comment: mL/m in/1.73m2 CKD-EPI Creatinine Equation (2020) Performed By: #### L 503.7505, L500.2500, L100.0100 #### [facility] [address] [place], [address] Glucose [Mass/Vol] 116 mg/dL High 70-99 [facility] Comment on above: Performed By: #### L 503.7505, L500.2500, L100.0100 #### [facility] [address] [place], [address] Potassium [Moles/Vol] 4.2 mmol/L Normal 3.3-5.1 [facility] Comment on above: Result Comment: Hemo lysis present, Results??could be affected. ?? Performed By: #### L 503.7505, L500.2500, L100.0100 #### [facility] [address] [place], [address] Sodium [Moles/Vol] 130 mmol/L Low 133-145 [facility] Comment on above: Performed By: #### L 503.7505, L500.2500, L100.0100 #### [facility] [address] [place], [address] Urea nitrogen [Mass/Vol] 46 mg/dL High 4-19 [facility] Comment on above: Performed By: #### L 503.7505, L500.2500, L100.0100 #### [facility] [address] [place], [address] Calcium [Mass/Vol] 9.0 mg/dL Normal 7.6-11.0 [facility] Comment on above: Performed By: #### L 100.0100, L500.2500 ####[facility] [address] [place], [address] Chloride [Moles/Vol] 106 mmol/L Normal 98-108 [facility] Comment on above: Performed By: #### L 100.0100, L500.2500 ####[facility] [address] [place], [address] CO2 [Moles/Vol] 6.5 mmol/L Invalid Interpretation Code 21.0-32.0 [facility] Comment on above: Result Comment: Crit ical Result(s) Called at: 2200 by: TIM DESHPANDE TO KERA ARRIAZATeodora??Results read back by same. Performed By: #### L 100.0100, L500.2500 ####[facility] [address] [place], [address] Creatinine [Mass/Vol] 3.02 mg/dL High 0.70-1.20 [facility] Comment on above: Performed By: #### L 100.0100, L500.2500 ####[facility] [address] [place], [address] ECRCL 32.34 ml/min Low 50-250 [facility] Comment on above: Performed By: #### L 100.0100, L500.2500 ####[facility] [address] [place], [address] GAP 16 High 5-15 [facility] Comment on above: Performed By: #### L 100.0100, L500.2500 ####[facility] [address] [place], [address] GFR/1.73 sq M.predicted among non-blacks MDRD (S/P/Bld) [Vol rate/Area] 24 mL/min/{1.73_m2} Low >60 [facility] Comment on above: Result Comment: mL/m in/1.73m2 CKD-EPI Creatinine Equation (2020) Performed By: #### L 100.0100, L500.2500 ####[facility] [address] [place], [address] Glucose [Mass/Vol] 115 mg/dL High 70-99 [facility] Comment on above: Performed By: #### L 100.0100, L500.2500 ####[facility] [address] [place], [address] Potassium [Moles/Vol] 3.7 mmol/L Normal 3.3-5.1 [facility] Comment on above: Result Comment: Hemo lysis present, Results??could be affected. ?? Performed By: #### L 100.0100, L500.2500 ####[facility] [address] [place], [address] Sodium [Moles/Vol] 128 mmol/L Low 133-145 [facility] Comment on above: Performed By: #### L 100.0100, L500.2500 ####[facility] [address] [place], [address] Urea nitrogen [Mass/Vol] 48 mg/dL High 4-19 [facility] Comment on above: Performed By: #### L 100.0100, L500.2500 ####[facility] [address] [place], [address] Basophil percentageOrdered B y: Iker Richards on 01-15-2025 Basophils/100 WBC (Bld) 0.2 % 0-1 [facility] CBC W/Diff, Automatedon 12-29 Absolute Lymph 0.67 X10 3/uL Low 0.83-4.51 [facility] Comment on above: Performed By: #### L 100.0100, L500.2500 ####[facility] [address] [place], [address] Absolute Neut 11.6 X10 3/uL High 2.0-7.7 [facility] Comment on above: Performed By: #### L 100.0100, L500.2500 ####[facility] [address] [place], [address] Basophils/100 WBC (Bld) 0.2 % Normal 0-1 [facility] Comment on above: Performed By: #### L 100.0100, L500.2500 ####[facility] [address] [place], [address] Eosinophils/100 WBC (Bld) 0.3 % Normal 0-5 [facility] Comment on above: Performed By: #### L 100.0100, L500.2500 ####[facility] [address] [place], [address] Erythrocyte distribution width (RBC) [Ratio] 15.9 % High 11.6-14.6 [facility] Comment on above: Performed By: #### L 100.0100, L500.2500 ####[facility] [address] [place], [address] Hematocrit (Bld) [Volume fraction] 35.2 % Low 40-54 [facility] Comment on above: Performed By: #### L 100.0100, L500.2500 ####[facility] [address] [place], [address] Hemoglobin (Bld) [Mass/Vol] 12.0 g/dL Low 13.0-16.5 [facility] Comment on above: Performed By: #### L 100.0100, L500.2500 ####[facility] [address] [place], [address] IG% 0.400 Normal 0.0-0.9 [facility] Comment on above: Result Comment: IG% - Immature Granulocytes (promyelocytes, myelocytes and metamyelocytes) > 1% indicates that a LEFT SHIFT is Present. Performed By: #### L 100.0100, L500.2500 ####[facility] [address] [place], [address] Lymphocytes/100 WBC (Bld) 4.9 % Low 19-41 [facility] Comment on above: Performed By: #### L 100.0100, L500.2500 ####[facility] [address] [place], [address] MCH (RBC) [Entitic mass] 31.9 pg Normal 27.0-32.0 [facility] Comment on above: Performed By: #### L 100.0100, L500.2500 ####[facility] [address] [place], [address] MCHC (RBC) [Mass/Vol] 34.1 g/dL Normal 32-36 [facility] Comment on above: Performed By: #### L 100.0100, L500.2500 ####[facility] [address] [place], [address] MCV (RBC) [Entitic vol] 93.6 fL Normal 80-94 [facility] Comment on above: Performed By: #### L 100.0100, L500.2500 ####[facility] [address] [place], [address] Monocytes/100 WBC (Bld) 9.5 % Normal 0-10 [facility] Comment on above: Performed By: #### L 100.0100, L500.2500 ####[facility] [address] [place], [address] Neutrophils/100 WBC (Bld) 84.7 % High 47-70 [facility] Comment on above: Performed By: #### L 100.0100, L500.2500 ####[facility] [address] [place], [address] Nucleated RBC (Bld) [#/Vol] 0.1 10*3/uL Normal 0-5 [facility] Comment on above: Performed By: #### L 100.0100, L500.2500 ####[facility] [address] [place], [address] Platelet mean volume (Bld) [Entitic vol] 8.8 fL Normal 6.2-12.0 [facility] Comment on above: Performed By: #### L 100.0100, L500.2500 ####[facility] [address] [place], [address] Platelets (Bld) [#/Vol] 344 10*3/uL Normal 150-450 [facility] Comment on above: Performed By: #### L 100.0100, L500.2500 ####[facility] [address] [place], [address] RBC (Bld) [#/Vol] 3.76 10*6/uL Low 4.6-6.2 [facility] Comment on above: Performed By: #### L 100.0100, L500.2500 ####[facility] [address] [place], [address] RDW SD 54.4 fl High 35.1-43.9 [facility] Comment on above: Performed By: #### L 100.0100, L500.2500 ####[facility] [address] [place], [address] WBC (Bld) [#/Vol] 13.7 10*3/uL High 4.4-11.0 [facility] Comment on above: Performed By: #### L 100.0100, L500.2500 ####[facility] [address] [place], [address] CNPFaviola 01-15-2025 RICHIEN Telephone (MELANIE) FIRST,DOV Zepeda ([id number]) 1970 M Date Time Provider Department 01/15/25 NICOLASA DENISE During your visit today, we recorded the following information about you: Mary Gonzalez 01/15/2025 1:15 PM Signed Patient calling to say his output was 78 ouces over 24 hours. Please call him back after 230 p, when he get off work please Cleo Parekh RN 01/15/2025 3:47 PM Signed Patient has [...] Status:Closed by MARY GONZALEZ on 01/15/25 Normal [facility] Carbon dioxide, total [Moles /volume] in Central venous bloodOrdered By: Iker Richards on 01-15-2025 CO2 [Moles/Vol] 7.1 mmol/L Low 21.0-32.0 [facility] Comment on above: Critical Result(s) C alled at: 2300 by: ANDREIA SIFUENTES TO DR. RICHARDS Results read back by same. Chloride assayOrdered By: Choco Richards on 01-15-2025 Chloride [Moles/Vol] 109 mmol/L High 98-108 [facility] Emergency Department Summary on 01-15-2025 Emergency Department Summary [facility] Medical Records Department [address] [place] [address] Emergency Department Summary 01/15/25 MR#: [id number] Acct: [id number] Name: DOV BURROWS Rep #: [id number] : 1970 54 From: Iker Richards DO [...] hold of his surgeon Dr. Buenrostro at [facility]. He wanted the patient to [...] intact Psych: Cooperative, appropriate mood and [facility] History Cancer of appendix Ileostomy present [...] hold of his surgeon Dr. Buenrostro at [facility]. He wanted the patient to [...] of a (more content not included)... Normal [facility] Eosinophil percentageOrdered By: Iker Richards on 01-15-2025 Eosinophils/100 WBC (Bld) 0.3 % 0-5 [facility] Erythrocyte distribution wid th (RBC) [Ratio]Ordered By: Iker Richards on 01-15-2025 Erythrocyte distribution width (RBC) [Entitic vol] 54.4 fL High 35.1-43.9 [facility] Erythrocyte distribution wid th ratioOrdered By: Iker Richards on 01-15-2025 Erythrocyte distribution width (RBC) [Ratio] 15.9 % High 11.6-14.6 [facility] Erythrocyte distribution wid th standard deviationOrdered By: Iker Love on 01-15-2025 Erythrocyte distribution width (RBC) [Ratio] 54.4 fl High 35.1-43.9 [facility] Estimation of creatinine emma aranceOrdered By: Iker Richards on 01-15-2025 Estimated Creatinine Clearance Calc 33.33 ml/min Low 50-250 [facility] GFR/1.73 sq M.predicted jaime g non-blacks MDRD (S/P/Bld) [Vol rate/Area]Ordered By: Iker Richards on 01-15-2025 Estimated GFR (MDRD) Non-Af Amer 25 Low >60 [facility] Comment on above: mL/min/1.73m2 CKD-EP I Creatinine Equation (2020) Glomerular filtration rate ( GFR) estimation/1.73 sq m using serum, plasma, or whole bOrdered By: Iker Richards on 01-15-2025 GFR/1.73 sq M.predicted among non-blacks MDRD (S/P/Bld) [Vol rate/Area] 25 mL/min/{1.73_m2} Low >60 [facility] Comment on above: mL/min/1.73m2 CKD-EP I Creatinine Equation (2020) Hematocrit Auto (Bld) [Volum e fraction]Ordered By: Iker Richards on 01-15-2025 Hematocrit (Bld) [Volume fraction] 35.2 % Low 40-54 [facility] Hemoglobin measurementOrdere d By: Iker Richards on 01-15-2025 Hemoglobin (Bld) [Mass/Vol] 12.0 g/dL Low 13.0-16.5 [facility] Immature granulocytes/100 WB C Auto (Bld)Ordered By: Iker Richards on 01-15-2025 Immature granulocytes/100 WBC (Bld) 0.400 % 0.0-0.9 [facility] Comment on above: IG% - Immature Granu locytes (promyelocytes, myelocytes and metamyelocytes) > 1% indicates that a LEFT SHIFT is Present. Lymphocytes Auto (Unsp spec) [#/Vol]Ordered By: Iker Richards on 01-15-2025 Lymphocytes (Bld) [#/Vol] 0.67 10*3/uL Low 0.83-4.51 [facility] Lymphocytes/100 WBC Auto (Un sp spec)Ordered By: Iker Richards on 01-15-2025 Lymphocytes/100 WBC (Bld) 4.9 % Low 19-41 [facility] MCV (mean corpuscular volume ) determinationOrdered By: Iker Richards on 01-15-2025 MCV (RBC) [Entitic vol] 93.6 fL 80-94 [facility] Mean corpuscular hemoglobin (MCH) determinationOrdered By: Iker Richards on 01-15-2025 MCH (RBC) [Entitic mass] 31.9 pg 27.0-32.0 [facility] Mean corpuscular hemoglobin concentration (MCHC) determinationOrdered By: Iker Richards on 01-15-2025 MCHC (RBC) [Mass/Vol] 34.1 g/dL 32-36 [facility] Mean platelet volume determi nationOrdered By: Iker Richards on 01-15-2025 Platelet mean volume (Bld) [Entitic vol] 8.8 fL 6.2-12.0 [facility] Monocyte percentageOrdered B y: Iker Richards on 01-15-2025 Monocytes/100 WBC (Bld) 9.5 % 0-10 [facility] Neutrophil percentageOrdered By: Iker Richards on 01-15-2025 Neutrophils/100 WBC (Bld) 84.7 % High 47-70 [facility] Nucleated red blood cell per centageOrdered By: Iker Richards on 01-15-2025 Nucleated RBC/100 WBC (Bld) [Ratio] 0.1 % 0-5 [facility] Platelet countOrdered By: Choco wilkinsonl Susie on 01-15-2025 Platelets (Bld) [#/Vol] 344 10*3/uL 150-450 [facility] Potassium (Unsp spec) [Mass/ Vol]Ordered By: Iker Richards on 01-15-2025 Potassium [Moles/Vol] 4.2 mmol/L 3.3-5.1 [facility] Comment on above: Hemolysis present, R esults could be affected. Potassium measurement (mass/ volume)Ordered By: Iker Richards on 01-15-2025 Potassium (Unsp spec) [Mass/Vol] 4.2 mmol/L 3.3-5.1 [facility] Comment on above: Hemolysis present, R esults could be affected. RBC Auto (Bld) [#/Vol]Ordere d By: Iker Richards on 01-15-2025 RBC (Bld) [#/Vol] 3.76 10*6/uL Low 4.6-6.2 [facility] Serum creatinine measurement (mass/volume)Ordered By: Iker Richards on 01-15-2025 Creatinine [Mass/Vol] 2.93 mg/dL High 0.70-1.20 [facility] Serum glucose measurement (m ass/volume)Ordered By: Iker Richards on 01-15-2025 Glucose [Mass/Vol] 116 mg/dL High 70-99 [facility] Serum or plasma calcium tran urement (mass/volume)Ordered By: Iker Love on 01-15-2025 Calcium [Mass/Vol] 8.6 mg/dL 7.6-11.0 [facility] Serum or plasma urea nitroge n measurement (mass/volume)Ordered By: Iker Richards on 01-15-2025 Urea nitrogen [Mass/Vol] 46 mg/dL High 4-19 [facility] Sodium levelOrdered By: Vaibhav Richards on 01-15-2025 Sodium [Moles/Vol] 130 mmol/L Low 133-145 [facility] White blood cell (WBC) count Ordered By: Iker Richards on 01-15-2025 WBC (Bld) [#/Vol] 13.7 10*3/uL High 4.4-11.0 [facility] CNPNon 01-14-2025 RICHIEN Telephone ([employer]) FIRST,DOV Zepeda ([id number]) 1970 M Date Time Provider Department 01/14/25 NICOLASA DENISE During your visit today, we recorded the following information about you: Cleo Parekh, PEDRO LUIS 01/14/2025 10:54 AM Signed Left regarding mychart message. Requested a call back to discuss symptoms/output. Cleo Parekh, PEDRO LUIS 01/14/2025 3:21 PM Signed Patient is taking [...] Visit: Patient Update [1234] Prescriptions as of 01/14/2025 - diphenoxylate-atropine (LOMOTIL) [...] Status:Closed by CLEO PAREKH on 01/14/25 Normal [facility] Basic metabolic 2000 panelon 01-11-2025 Anion gap [Moles/Vol] 13 mmol/L Normal 8-15 [facility] Comment on above: Order Comment: Speci men Type: BLOOD SPECIMEN [facility]ing Facility: [facility] Address: [address] [place] [address] Performed By: #### 2 4321-2 #### [facility] [id number] [address] [place] [address] [place] Calcium [Mass/Vol] 9.7 mg/dL Normal 8.5-10.2 [facility] Comment on above: Order Comment: Speci men Type: BLOOD SPECIMEN Ordering Facility: [facility] Address: [address] [place] [address] Performed By: #### 2 4321-2 #### [facility] CLIA [id number] [address] [place] [address] [place] Chloride [Moles/Vol] 107 mmol/L Normal 98-107 [facility] Comment on above: Order Comment: Speci men Type: BLOOD SPECIMEN Ordering Facility: [facility] Address: [address] [place] [address] Performed By: #### 2 4321-2 #### [facility] CLIA [id number] [address] [place] [address] [place] CO2 [Moles/Vol] 11 mmol/L Low 22-30 [facility] Comment on above: Order Comment: Speci men Type: BLOOD SPECIMEN Ordering Facility: [facility] Address: [address] [place] [address] Performed By: #### 2 4321-2 #### [facility] CLIA [id number] [address] [place] [address] [place] Creatinine [Mass/Vol] 3.01 mg/dL High 0.73-1.22 [facility] Comment on above: Order Comment: Rose summers Type: BLOOD SPECIMEN Ordering Facility: [facility] Address: [address] [place], [place] [id number] Performed By: #### 2 4321-2 #### [facility] CLIA [id number] [address] [place] [address] [place] Creatinine and Glomerular filtration rate.predicted panel (S/P/Bld) 24 mL/min/1.73m??? Low >=60 [facility] Comment on above: Order Comment: Rose summers Type: BLOOD SPECIMEN Ordering Facility: [facility] Address: [address] [place] [address] Result Comment: Marlen mated Glomerular Filtration Rate [...] GFR. Performed By: #### 2 4321-2 #### [facility] CLIA [id number] [address] [place] [address] [place] Glucose [Mass/Vol] 90 mg/dL Normal 74-99 [facility] Comment on above: Order Comment: Rose summers Type: BLOOD SPECIMEN Ordering Facility: [facility] Address: [address] [id number] Result Comment: The [employer] Diabetes Association (ADA) provides guidance for cutoff [...] Standards of Medical Care in Diabetes 2016, [employer]. Diabetes Care. 2016.39(Suppl 1). Performed By: #### 2 4321-2 #### [facility] CLIA [id number] [address] [place] [address] [place] Potassium [Moles/Vol] 4.1 mmol/L Normal 3.7-5.1 [facility] Comment on above: Order Comment: Rose summers Type: BLOOD SPECIMEN Ordering Facility: [facility] Address: [address] [place] [address] Performed By: #### 2 4321-2 #### [facility] [id number] [address] [place] [address] [place] Sodium [Moles/Vol] 131 mmol/L Low 136-144 [facility] Comment on above: Order Comment: Rose summers Type: BLOOD SPECIMEN Ordering Facility: [facility] Address: [address] [place] [address] Performed By: #### 2 4321-2 #### [facility] [id number] [address] [place] [address] [place] Urea nitrogen [Mass/Vol] 40 mg/dL High 9-24 [facility] Comment on above: Order Comment: Rose summers Type: BLOOD SPECIMEN Ordering Facility: [facility] Address: [address] [place] [address] Performed By: #### 2 4321-2 #### [facility] CLIA [id number] [address] [place] [address] [place] Basic metabolic 2000 panelon 01-04-2025 Anion gap [Moles/Vol] 13 mmol/L Normal 8-15 [facility] Comment on above: Order Comment: Speci men Type: BLOOD SPECIMENOrdering Facility: [facility] Address: [address] [place] [address] Performed By: #### 2 4321-2 ####[facility] LABCLIA [id number] [address] [place] [address] [place] Calcium [Mass/Vol] 8.9 mg/dL Normal 8.5-10.2 [facility] Comment on above: Order Comment: Speci men Type: BLOOD SPECIMENOrdering Facility: [facility] Address: [address] [place] [address] Performed By: #### 2 4321-2 ####[facility] LABCLIA [id number] [facility] [place] [id number] [place] Chloride [Moles/Vol] 111 mmol/L High 98-107 [facility] Comment on above: Order Comment: Speci men Type: BLOOD SPECIMENOrdering Facility: [facility] Address: [address] [place] [address] Performed By: #### 2 4321-2 ####[facility] LABCLIA [id number] [place] [id number] [place] CO2 [Moles/Vol] 11 mmol/L Low 22-30 [facility] Comment on above: Order Comment: Speci men Type: BLOOD SPECIMENOrdering Facility: [facility] Address: [address] [place] [address] Performed By: #### 2 4321-2 ####[facility] LABCLIA [id number] [place] [id number] [place] Creatinine [Mass/Vol] 2.47 mg/dL High 0.73-1.22 [facility] Comment on above: Order Comment: Speci men Type: BLOOD SPECIMENOrdering Facility: [facility] Address: [address] [place] [address] Performed By: #### 2 4321-2 ####[facility] LABCLIA [id number] [place] [address] [place] Creatinine and Glomerular filtration rate.predicted panel (S/P/Bld) 31 mL/min/1.73m??? Low >=60 [facility] Comment on above: Order Comment: Rose summers Type: BLOOD SPECIMENOrdering Facility: [facility] Address: [address] [place] [address] Result Comment: Marlen mated Glomerular Filtration Rate [...] actual GFR. Performed By: #### 2 4321-2 ####[facility] LABIA [id number] [place] [address] [place] Glucose [Mass/Vol] 110 mg/dL High 74-99 [facility] Comment on above: Order Comment: Rose summers Type: BLOOD SPECIMENOrdering Facility: [facility] Address: [address] [place] [address] Result Comment: The [employer] Diabetes Association (ADA) provides guidance for cutoff [...] Standards of Medical Care in Diabetes 2016, [employer]. Diabetes Care. 2016.39(Suppl 1). Performed By: #### 2 4321-2 ####[facility] LABCLIA [id number] [place] [id number] [place] Potassium [Moles/Vol] 3.7 mmol/L Normal 3.7-5.1 [facility] Comment on above: Order Comment: Speci men Type: BLOOD SPECIMENOrdering Facility: [facility] Address: [address] [place] [address] Performed By: #### 2 4321-2 ####[facility] LABCLIA [id number] [facility] [place] [id number] [place] Sodium [Moles/Vol] 135 mmol/L Low 136-144 [facility] Comment on above: Order Comment: Speci men Type: BLOOD SPECIMENOrdering Facility: [facility] Address: [address] [place] [address] Performed By: #### 2 4321-2 ####[facility] LABCLIA [id number] [place] [address] [place] Urea nitrogen [Mass/Vol] 34 mg/dL High 9-24 [facility] Comment on above: Order Comment: Speci men Type: BLOOD SPECIMENOrdering Facility: [facility] Address: [address] [place] [address] Performed By: #### 2 4321-2 ####[facility] LABCLIA [id number] [place] [id number] [place] Basic metabolic 2000 panelon 12-28-2024 Anion gap [Moles/Vol] 13 mmol/L Normal 8-15 [facility] Comment on above: Order Comment: Speci men Type: BLOOD SPECIMENOrdering Facility: [facility] Address: [address] [place], [place] [phone] Performed By: #### 2 4321-2 ####[facility] LABCLIA [id number] [place] [address] [place] Calcium [Mass/Vol] 9.1 mg/dL Normal 8.5-10.2 [facility] Comment on above: Order Comment: Speci men Type: BLOOD SPECIMENOrdering Facility: [facility] Address: [address] [place] [address] Performed By: #### 2 4321-2 ####[facility] LABCLIA [id number] [place] [address] [place] Chloride [Moles/Vol] 108 mmol/L High 98-107 [facility] Comment on above: Order Comment: Speci men Type: BLOOD SPECIMENOrdering Facility: [facility] Address: [address] [place] [address] Performed By: #### 2 4321-2 ####[facility] LABCLIA [id number] [place] [address] [place] CO2 [Moles/Vol] 12 mmol/L Low 22-30 [facility] Comment on above: Order Comment: Speci men Type: BLOOD SPECIMENOrdering Facility: [facility] Address: [address] [place] [address] Performed By: #### 2 4321-2 ####[facility] LABCLIA [id number] [place] [address] [place] Creatinine [Mass/Vol] 2.76 mg/dL High 0.73-1.22 [facility] Comment on above: Order Comment: Speci men Type: BLOOD SPECIMENOrdering Facility: [facility] Address: [address] [place] [address] Performed By: #### 2 4321-2 ####[facility] LABCLIA [id number] [place] [id number] [place] Creatinine and Glomerular filtration rate.predicted panel (S/P/Bld) 27 mL/min/1.73m??? Low >=60 [facility] Comment on above: Order Comment: Speci men Type: BLOOD SPECIMENOrdering Facility: [facility] Address: [address] [place] [address] Result Comment: Marlen mated Glomerular Filtration Rate [...] actual GFR. Performed By: #### 2 4321-2 ####[facility] LABCLIA [id number] [address] [address] [place] Glucose [Mass/Vol] 91 mg/dL Normal 74-99 [facility] Comment on above: Order Comment: Rose summers Type: BLOOD SPECIMENOrdering Facility: [facility] Address: [address] [place] [address] Result Comment: The [employer] Diabetes Association (ADA) provides guidance for cutoff [...] Standards of Medical Care in Diabetes 2016, [employer]. Diabetes Care. 2016.39(Suppl 1). Performed By: #### 2 4321-2 ####[facility] LABCLIA [id number] [address] [address] [place] Potassium [Moles/Vol] 3.2 mmol/L Low 3.7-5.1 [facility] Comment on above: Order Comment: Rose summers Type: BLOOD SPECIMENOrdering Facility: [facility] Address: [address] [phone] Performed By: #### 2 4321-2 ####[facility]CLIA [id number] [facility] [address] [address] [place] Sodium [Moles/Vol] 133 mmol/L Low 136-144 [facility] Comment on above: Order Comment: Speci men Type: BLOOD SPECIMENOrdering Facility: [facility] Address: [address] [phone] Performed By: #### 2 4321-2 ####[facility] LABCLIA [id number] [address] [address] [place] Urea nitrogen [Mass/Vol] 43 mg/dL High 9-24 [facility] Comment on above: Order Comment: Speci men Type: BLOOD SPECIMENOrdering Facility: [facility] Address: [address] [place], [place] [phone] Performed By: #### 2 4321-2 ####[facility] LABIA [id number] [place] [id number] [place] Basic metabolic 2000 panelon 12-21-2024 Anion gap [Moles/Vol] 13 mmol/L Normal 8-15 [facility] Comment on above: Order Comment: Speci men Type: BLOOD SPECIMENOrdering Facility: [facility] Address: [address] [place], [place] [phone] Performed By: #### 2 4321-2 ####[facility] LABCLIA [id number] [place] [address] [place] Calcium [Mass/Vol] 10.4 mg/dL High 8.5-10.2 [facility] Comment on above: Order Comment: Speci men Type: BLOOD SPECIMENOrdering Facility: [facility] Address: [address] [phone] Performed By: #### 2 4321-2 ####[facility] LABCLIA [id number] [place] [phone] [place] Chloride [Moles/Vol] 105 mmol/L Normal 98-107 [facility] Comment on above: Order Comment: Speci men Type: BLOOD SPECIMENOrdering Facility: [facility] Address: [address] [place], [place] [phone] Performed By: #### 2 4321-2 ####[facility]CL[id number] [facility] [address] [address] [place] CO2 [Moles/Vol] 10 mmol/L Low 22-30 [facility] Comment on above: Order Comment: Speci men Type: BLOOD SPECIMENOrdering Facility: [facility] Address: [address] [place] [address] Performed By: #### 2 4321-2 ####[facility] LABIA [id number] [place] [address] [place] Creatinine [Mass/Vol] 2.90 mg/dL High 0.73-1.22 [facility] Comment on above: Order Comment: Speci men Type: BLOOD SPECIMENOrdering Facility: [facility] Address: [address] [place] [address] Performed By: #### 2 4321-2 ####[facility] LABIA [id number] [place] [address] [place] Creatinine and Glomerular filtration rate.predicted panel (S/P/Bld) 25 mL/min/1.73m??? Low >=60 [facility] Comment on above: Order Comment: Speci men Type: BLOOD SPECIMENOrdering Facility: [facility] Address: [address] [place] [address] Result Comment: Marlen mated Glomerular Filtration Rate [...] actual GFR. Performed By: #### 2 4321-2 ####[facility]CLIA [id number] [facility] [address] [address] [place] Glucose [Mass/Vol] 102 mg/dL High 74-99 [facility] Comment on above: Order Comment: Speci men Type: BLOOD SPECIMENOrdering Facility: [facility] Address: [address] [place] [address] Result Comment: The [employer] Diabetes Association (ADA) provides guidance for cutoff [...] Standards of Medical Care in Diabetes 2016, [place] [employer]. Diabetes Care. 2016.39(Suppl 1). Performed By: #### 2 4321-2 ####[facility] LABCLIA [id number] [place] [address] [place] Potassium [Moles/Vol] 4.4 mmol/L Normal 3.7-5.1 [facility] Comment on above: Order Comment: Speci men Type: BLOOD SPECIMENOrdering Facility: [facility] Address: [address] [place] [address] Performed By: #### 2 4321-2 ####[facility] LABCLIA [id number] [place] [address] [place] Sodium [Moles/Vol] 128 mmol/L Low 136-144 [facility] Comment on above: Order Comment: Speci men Type: BLOOD SPECIMENOrdering Facility: [facility] Address: [address] [place] [address] Performed By: #### 2 4321-2 ####[facility] LABCLIA [id number] [place] [address] [place] Urea nitrogen [Mass/Vol] 42 mg/dL High 9-24 [facility] Comment on above: Order Comment: Speci men Type: BLOOD SPECIMENOrdering Facility: [facility] Address: [address] [place] [address] Performed By: #### 2 4321-2 ####[facility] LABRENUKA [id number] DAVONAnay ADINA [id number] [place], [place] [id number] [place] CNOVon 12-21-2024 CNOV Office Visit (INTMWS ) DOV BURROWS ([id number]) 1970 M Date Time Provider Department 12/21/24 2:40 PM HARJEET BERNARD INTMWS During your visit today, we recorded the following information about you: Pulse Respiration Blood pressure Weight 103/minute 16/minute 104/75 92.9 kg Harjeet Bernard MD 12/21/2024 7:51 PM Signed This note was created using [employer] e[employer]. Subjective Dov Burrows is a 54 year [...] and regul (more content not included)... [facility] ,DOV Zepeda ([id number]) 1970 M Date Time Provider Department 12/17/24 HARJEET BERNARD INTMWS During your visit today, we recorded the following information about you: Madisyn Barraza, RN 12/17/2024 10:40 AM Signed Aishwarya Filler Feeder with [employer] [facility] called to reports that the Pt has an RN Health Delivery Technician through [facility] Hany Pizano (female) ph. [phone]. She wanted to give provider this information [...] Status:Closed by MADISYN BARRAZA on 12/17/24 Normal [facility] Anion gap in Serum or Plasma Ordered By: Mk Jc on 12-16-2024 Anion gap [Moles/Vol] 12 mmol/L 5-15 [facility] BUN/creatinine ratioOrdered By: Mk Jc on 12-16-2024 Urea nitrogen/Creatinine [Mass ratio] 17.7 mg/mg - [facility] Basic Metabolic Profile (BMP )on 12-16-2024 BUN/CRE 17.7 RATIO Normal 07-19 [facility] Comment on above: Performed By: #### L 503.7505, L500.2500, L100.0100 #### [facility] [address] [place], [address] Calcium [Mass/Vol] 8.5 mg/dL Normal 7.6-11.0 [facility] Comment on above: Performed By: #### L 503.7505, L500.2500, L100.0100 #### [facility] [address] [place], [address] Chloride [Moles/Vol] 113 mmol/L High 98-108 [facility] Comment on above: Performed By: #### L 503.7505, L500.2500, L100.0100 #### [facility] [address] [place], [address] CO2 [Moles/Vol] 10.2 mmol/L Low 21.0-32.0 [facility] Comment on above: Performed By: #### L 503.7505, L500.2500, L100.0100 #### [facility] [address] [place], [address] Creatinine [Mass/Vol] 1.83 mg/dL High 0.70-1.20 [facility] Comment on above: Performed By: #### L 503.7505, L500.2500, L100.0100 #### [facility] [address] [place], [address] ECRCL 53.36 ml/min Normal 50-250 [facility] Comment on above: Performed By: #### L 503.7505, L500.2500, L100.0100 #### [facility] [address] [place], [address] GAP 12 Normal 5-15 [facility] Comment on above: Performed By: #### L 503.7505, L500.2500, L100.0100 #### [facility] [address] [place], [address] GFR/1.73 sq M.predicted among non-blacks MDRD (S/P/Bld) [Vol rate/Area] 44 mL/min/{1.73_m2} Low >60 [facility] Comment on above: Result Comment: mL/m in/1.73m2 CKD-EPI Creatinine Equation (2020) Performed By: #### L 503.7505, L500.2500, L100.0100 #### [facility] [address] [place], [address] Glucose [Mass/Vol] 97 mg/dL Normal 70-99 [facility] Comment on above: Performed By: #### L 503.7505, L500.2500, L100.0100 #### [facility] [address] [place], [address] Potassium [Moles/Vol] 3.3 mmol/L Normal 3.3-5.1 [facility] Comment on above: Performed By: #### L 503.7505, L500.2500, L100.0100 #### [facility] [address] [place], [address] Sodium [Moles/Vol] 135 mmol/L Normal 133-145 [facility] Comment on above: Performed By: #### L 503.7505, L500.2500, L100.0100 #### [facility] [address] [place], [address] Urea nitrogen [Mass/Vol] 32 mg/dL High 4-19 [facility] Comment on above: Performed By: #### L 503.7505, L500.2500, L100.0100 #### [facility] [address] [place], [place], [address] C. difficile DNA MONICA+probe Q l (Unsp spec)Ordered By: Antonette Perera on 12-16-2024 Clostridioides difficile (PCR) [facility] CDIFF (PCR)on 12-16-2024 CDIFF Is the patient recei ving laxatives? N New/unexplained onset of 3 or more stools in past 24 hrs? Y Pending 027 027 NAP1-B1 Presumptive Negative *for epidemiolologic???use C. Diff PCR Negative- No toxigenic C. Diff Detected Normal [facility] Comment on above: Performed By: #### M 100.637, M100.6796 ####[facility] [address] [place], [place], [id number] Carbon dioxide, total [Moles /volume] in Central venous bloodOrdered By: Mk Jc on 12-16-2024 CO2 [Moles/Vol] 10.2 mmol/L Low 21.0-32.0 [facility] Chloride assayOrdered By: Celeste Jc on 12-16-2024 Chloride [Moles/Vol] 113 mmol/L High 98-108 [facility] Clostridium difficile detect ion by polymerase chain reactionOrdered By: Antonette Perera on 12-16-2024 C. difficile DNA MONICA+probe Ql (Unsp spec) [facility] Discharge Instructionon 11-28 Discharge Instruction [facility] Medical Records Department [address] [place] [address] Instructions for Home/Discharge Instructions 12/16/24 1118 MR#: [id number] Acct: [id number] Name: DOV BURROWS Rep #: [id number] : 1970 54 From: Mk Jc DO [...] CC: Dr. Harjeet Bernard MD Signed Normal [facility] ENTERIC PATHOGEN PANEL STOOL on 12-16-2024 EP PANEL Is the patient recei ving laxatives? N New/unexplained onset of 3 or [...] VIBRIO Not Detected Yers[place] Not Detected Normal [facility] Comment on above: Performed By: #### M 100.637, M100.6796 ####[facility] [address] [place], [address] Estimation of creatinine emma aranceOrdered By: Mk Jc on 12-16-2024 Estimated Creatinine Clearance Calc 53.36 ml/min 50-250 [facility] GFR/1.73 sq M.predicted jaime g non-blacks MDRD (S/P/Bld) [Vol rate/Area]Ordered By: Mk Jc on 12-16-2024 Estimated GFR (MDRD) Non-Af Amer 44 Low >60 [facility] Comment on above: mL/min/1.73m2 CKD-EP I Creatinine Equation (2020) Glomerular filtration rate ( GFR) estimation/1.73 sq m using serum, plasma, or whole bOrdered By: Mk Jc on 12-16-2024 GFR/1.73 sq M.predicted among non-blacks MDRD (S/P/Bld) [Vol rate/Area] 44 mL/min/{1.73_m2} Low >60 [facility] Comment on above: mL/min/1.73m2 CKD-EP I Creatinine Equation (2020) Potassium (Unsp spec) [Mass/ Vol]Ordered By: Mk Jc on 12-16-2024 Potassium [Moles/Vol] 3.3 mmol/L 3.3-5.1 [facility] Potassium measurement (mass/ volume)Ordered By: Mk Jc on 12-16-2024 Potassium (Unsp spec) [Mass/Vol] 3.3 mmol/L 3.3-5.1 [facility] Serum creatinine measurement (mass/volume)Ordered By: Mk Jc on 12-16-2024 Creatinine [Mass/Vol] 1.83 mg/dL High 0.70-1.20 [facility] Serum glucose measurement (m ass/volume)Ordered By: Mk Jc on 12-16-2024 Glucose [Mass/Vol] 97 mg/dL 70-99 [facility] Serum or plasma calcium rtan urement (mass/volume)Ordered By: Mk Jc on 12-16-2024 Calcium [Mass/Vol] 8.5 mg/dL 7.6-11.0 [facility] Serum or plasma urea nitroge n measurement (mass/volume)Ordered By: Mk Jc on 12-16-2024 Urea nitrogen [Mass/Vol] 32 mg/dL High 4-19 [facility] Sodium levelOrdered By: Mk Jc on 12-16-2024 Sodium [Moles/Vol] 135 mmol/L 133-145 [facility] Stool enteric pathogen panel by probe and target amplification methodOrdered By: Antonette Perera on 12-16-2024 Enteric Bacteriology [facility] Absolute lymphocyte countOrd ered By: Ibrahima Camarena on 12-15-2024 Lymphocytes Auto (Unsp spec) [#/Vol] 0.86 10*3/uL 0.83-4.51 [facility] Absolute neutrophil countOrd ered By: Ibrahima Camarena on 12-15-2024 Neutrophils (Bld) [#/Vol] 9.0 10*3/uL High 2.0-7.7 [facility] Anion gap in Serum or Plasma Ordered By: Ibrahima Camarena on 12-15-2024 Anion gap [Moles/Vol] 14 mmol/L 5-15 [facility] Automated lymphocyte count a s percentage of total leukocytesOrdered By: Ibrahima Camarena on 12-15-2024 Lymphocytes/100 WBC Auto (Unsp spec) 7.6 % Low 19-41 [facility] BUN/creatinine ratioOrdered By: Ibrahima Camarena on 12-15-2024 Urea nitrogen/Creatinine [Mass ratio] 18.2 mg/mg 10-20 [facility] Basic Metabolic Profile (BMP )on 12-15-2024 BUN/CRE 18.2 RATIO Normal - [facility] Comment on above: Performed By: #### L 500.2500, L100.0100 ####[facility] [address] [place], [address] Calcium [Mass/Vol] 9.1 mg/dL Normal 7.6-11.0 [facility] Comment on above: Performed By: #### L 500.2500, L100.0100 ####[facility] [address] [place], [address] Chloride [Moles/Vol] 107 mmol/L Normal 98-108 [facility] Comment on above: Performed By: #### L 500.2500, L100.0100 ####[facility] [address] [place], [address] CO2 [Moles/Vol] 10.4 mmol/L Low 21.0-32.0 [facility] Comment on above: Performed By: #### L 500.2500, L100.0100 ####[facility] [address] [place], [address] Creatinine [Mass/Vol] 2.23 mg/dL High 0.70-1.20 [facility] Comment on above: Performed By: #### L 500.2500, L100.0100 ####[facility] [address] [place], [address] ECRCL 43.79 ml/min Low 50-250 [facility] Comment on above: Performed By: #### L 500.2500, L100.0100 ####[facility] [address] [place], [address] GAP 14 Normal 5-15 [facility] Comment on above: Performed By: #### L 500.2500, L100.0100 ####[facility] [address] [place], [address] GFR/1.73 sq M.predicted among non-blacks MDRD (S/P/Bld) [Vol rate/Area] 35 mL/min/{1.73_m2} Low >60 [facility] Comment on above: Result Comment: mL/m in/1.73m2 CKD-EPI Creatinine Equation (2020) Performed By: #### L 500.2500, L100.0100 ####[facility] [address] [place], [address] Glucose [Mass/Vol] 106 mg/dL High 70-99 [facility] Comment on above: Performed By: #### L 500.2500, L100.0100 ####[facility] [address] [place], [address] Potassium [Moles/Vol] 4.0 mmol/L Normal 3.3-5.1 [facility] Comment on above: Result Comment: Hemo lysis present, Results??could be affected. ?? Performed By: #### L 500.2500, L100.0100 ####[facility] [address] [place], [address] Sodium [Moles/Vol] 132 mmol/L Low 133-145 [facility] Comment on above: Performed By: #### L 500.2500, L100.0100 ####[facility] [address] [place], [address] Urea nitrogen [Mass/Vol] 41 mg/dL High 4-19 [facility] Comment on above: Performed By: #### L 500.2500, L100.0100 ####[facility] [address] [place], [address] Basophil percentageOrdered B y: Ibrahima Camarena on 12-15-2024 Basophils/100 WBC (Bld) 0.3 % 0-1 [facility] CBC W/Diff, Automatedon 11-28 Absolute Lymph 0.86 X10 3/uL Normal 0.83-4.51 [facility] Comment on above: Performed By: #### L 500.2500, L100.0100 ####[facility] [address] [place], [address] Absolute Neut 9.0 X10 3/uL High 2.0-7.7 [facility] Comment on above: Performed By: #### L 500.2500, L100.0100 ####[facility] [address] [place], [address] Basophils/100 WBC (Bld) 0.3 % Normal 0-1 [facility] Comment on above: Performed By: #### L 500.2500, L100.0100 ####[facility] [address] [place], [address] Eosinophils/100 WBC (Bld) 1.2 % Normal 0-5 [facility] Comment on above: Performed By: #### L 500.2500, L100.0100 ####[facility] [address] [place], [address] Erythrocyte distribution width (RBC) [Ratio] 15.2 % High 11.6-14.6 [facility] Comment on above: Performed By: #### L 500.2500, L100.0100 ####[facility] [address] [place], [address] Hematocrit (Bld) [Volume fraction] 38.9 % Low 40-54 [facility] Comment on above: Performed By: #### L 500.2500, L100.0100 ####[facility] [address] [place], [address] Hemoglobin (Bld) [Mass/Vol] 12.7 g/dL Low 13.0-16.5 [facility] Comment on above: Performed By: #### L 500.2500, L100.0100 ####[facility] [address] [place], [address] IG% 0.400 Normal 0.0-0.9 [facility] Comment on above: Result Comment: IG% - Immature Granulocytes (promyelocytes, myelocytes and metamyelocytes) > 1% indicates that a LEFT SHIFT is Present. Performed By: #### L 500.2500, L100.0100 ####[facility] [address] [place], [address] Lymphocytes/100 WBC (Bld) 7.6 % Low 19-41 [facility] Comment on above: Performed By: #### L 500.2500, L100.0100 ####[facility] [address] [place], [address] MCH (RBC) [Entitic mass] 31.1 pg Normal 27.0-32.0 [facility] Comment on above: Performed By: #### L 500.2500, L100.0100 ####[facility] [address] [place], [address] MCHC (RBC) [Mass/Vol] 32.6 g/dL Normal 32-36 [facility] Comment on above: Performed By: #### L 500.2500, L100.0100 ####[facility] [address] [place], [address] MCV (RBC) [Entitic vol] 95.3 fL High 80-94 [facility] Comment on above: Performed By: #### L 500.2500, L100.0100 ####[facility] [address] [place], [address] Monocytes/100 WBC (Bld) 10.9 % High 0-10 [facility] Comment on above: Performed By: #### L 500.2500, L100.0100 ####[facility] [address] [place], [address] Neutrophils/100 WBC (Bld) 79.6 % High 47-70 [facility] Comment on above: Performed By: #### L 500.2500, L100.0100 ####[facility] [address] [place], [address] Nucleated RBC (Bld) [#/Vol] 0.2 10*3/uL Normal 0-5 [facility] Comment on above: Performed By: #### L 500.2500, L100.0100 ####[facility] [address] [place], [address] Platelet mean volume (Bld) [Entitic vol] 8.6 fL Normal 6.2-12.0 [facility] Comment on above: Performed By: #### L 500.2500, L100.0100 ####[facility] [address] [place], [address] Platelets (Bld) [#/Vol] 393 10*3/uL Normal 150-450 [facility] Comment on above: Performed By: #### L 500.2500, L100.0100 ####[facility] [address] [place], [address] RBC (Bld) [#/Vol] 4.08 10*6/uL Low 4.6-6.2 [facility] Comment on above: Performed By: #### L 500.2500, L100.0100 ####[facility] [address] [place], [address] RDW SD 52.6 fl High 35.1-43.9 [facility] Comment on above: Performed By: #### L 500.2500, L100.0100 ####[facility] [address] [place], [address] WBC (Bld) [#/Vol] 11.3 10*3/uL High 4.4-11.0 [facility] Comment on above: Performed By: #### L 500.2500, L100.0100 ####[facility] [address] [place], [address] Carbon dioxide, total [Moles /volume] in Central venous bloodOrdered By: Ibrahima Camarena on 12-15-2024 CO2 [Moles/Vol] 10.4 mmol/L Low 21.0-32.0 [facility] Chloride assayOrdered By: Imtiaz Camarena on 12-15-2024 Chloride [Moles/Vol] 107 mmol/L 98-108 [facility] Emergency Department Summary on 12-15-2024 Emergency Department Summary [facility] Medical Records Department [address] [place] [address] Emergency Department Summary 12/15/24 MR#: [id number] Acct: [id number] Name: DOV BURROWS Rep #: [id number] : 1970 54 From: Ibrahima Camarena DO PCP: Dr. Harjeet Bernard MD Status:ADM SANNA Location: [place] [address] HPI History of Present Illness Chief Complaint: [...] pain. Patient denies any nausea or vomiting. [facility] Medical History Cancer of appendix Ileostomy present [...] from pr (more content not included)... Normal [facility] Eosinophil percentageOrdered By: Ibrahima Camarena on 12-15-2024 Eosinophils/100 WBC (Bld) 1.2 % 0-5 [facility] Erythrocyte distribution wid th ratioOrdered By: Ibrahima Camarena on 12-15-2024 Erythrocyte distribution width (RBC) [Ratio] 15.2 % High 11.6-14.6 [facility] Erythrocyte distribution wid th standard deviationOrdered By: Ibrahima Camarena on 12-15-2024 Erythrocyte distribution width (RBC) [Entitic vol] 52.6 fL High 35.1-43.9 [facility] Erythrocyte distribution width (RBC) [Ratio] 52.6 fl High 35.1-43.9 [facility] Estimation of creatinine emma aranceOrdered By: Ibrahima Camarena on 12-15-2024 Estimated Creatinine Clearance Calc 43.79 ml/min Low 50-250 [facility] GFR/1.73 sq M.predicted jaime g non-blacks MDRD (S/P/Bld) [Vol rate/Area]Ordered By: Ibrahima Camarena on 12-15-2024 Estimated GFR (MDRD) Non-Af Amer 35 Low >60 [facility] Comment on above: mL/min/1.73m2 CKD-EP I Creatinine Equation (2020) H AND P Exam - [facility] 12-15-2024 H&P Exam - Hospitalist [facility] Medical Records Department [address] [place] [address] H P Exam - Hospitalist 12/15/24 1633 MR#: [id number] Acct: [id number] Name: DOV BURROWS Rep #: [id number] : 1970 54 From: Mk Jc DO PCP: Dr. Harjeet Bernard MD Status:ADM SANNA Location: [address] HPI - General General Date of Admission: 12/15/24 Date of Service: 12/15/24 Chief Complaint: Need for IV fluids HPI Lizette BURROWS, is a 54 M who presents to the emergency room at [facility] for evaluation due to possible dehydration [...] if this will decrease his ileostomy output. [facility] Medical History Cancer of appendix Ileostomy present [...] Pattern B (more content not included)... Normal [facility] Hematocrit Auto (Bld) [Volum e fraction]Ordered By: Ibrahima Camarena on 12-15-2024 Hematocrit (Bld) [Volume fraction] 38.9 % Low 40-54 [facility] Hemoglobin measurementOrdere d By: Ibrahima Camarena on 12-15-2024 Hemoglobin (Bld) [Mass/Vol] 12.7 g/dL Low 13.0-16.5 [facility] Immature granulocytes/100 WB C Auto (Bld)Ordered By: Ibrahima Camarena on 12-15-2024 Immature granulocytes/100 WBC (Bld) 0.400 % 0.0-0.9 [facility] Comment on above: IG% - Immature Granu locytes (promyelocytes, myelocytes and metamyelocytes) > 1% indicates that a LEFT SHIFT is Present. Lymphocytes Auto (Unsp spec) [#/Vol]Ordered By: Ibrahima Camarena on 12-15-2024 Lymphocytes (Bld) [#/Vol] 0.86 10*3/uL 0.83-4.51 [facility] Lymphocytes/100 WBC Auto (Un sp spec)Ordered By: Ibrahima Camarena on 12-15-2024 Lymphocytes/100 WBC (Bld) 7.6 % Low 19-41 [facility] MCV (mean corpuscular volume ) determinationOrdered By: Ibrahima Camarena on 12-15-2024 MCV (RBC) [Entitic vol] 95.3 fL High 80-94 [facility] Mean corpuscular hemoglobin (MCH) determinationOrdered By: Ibrahima Camarena on 12-15-2024 MCH (RBC) [Entitic mass] 31.1 pg 27.0-32.0 [facility] Mean corpuscular hemoglobin concentration (MCHC) determinationOrdered By: Ibrahima Camarena on 12-15-2024 MCHC (RBC) [Mass/Vol] 32.6 g/dL 32-36 [facility] Mean platelet volume determi nationOrdered By: Ibrahima Camarena on 12-15-2024 Platelet mean volume (Bld) [Entitic vol] 8.6 fL 6.2-12.0 [facility] Monocyte percentageOrdered B y: Ibrahima Camarena on 12-15-2024 Monocytes/100 WBC (Bld) 10.9 % High 0-10 [facility] Neutrophil percentageOrdered By: Ibrahima Camarena on 12-15-2024 Neutrophils/100 WBC (Bld) 79.6 % High 47-70 [facility] Nucleated red blood cell per centageOrdered By: Ibrahima Camarena on 12-15-2024 Nucleated RBC/100 WBC (Bld) [Ratio] 0.2 % 0-5 [facility] Platelet countOrdered By: Imtiaz Camarena on 12-15-2024 Platelets (Bld) [#/Vol] 393 10*3/uL 150-450 [facility] Potassium (Unsp spec) [Mass/ Vol]Ordered By: Ibrahima Camarena on 12-15-2024 Potassium [Moles/Vol] 4.0 mmol/L 3.3-5.1 [facility] Comment on above: Hemolysis present, R esults could be affected. RBC Auto (Bld) [#/Vol]Ordere d By: Ibrahima Camarena on 12-15-2024 RBC (Bld) [#/Vol] 4.08 10*6/uL Low 4.6-6.2 [facility] Serum creatinine measurement (mass/volume)Ordered By: Ibrahima Camarena on 12-15-2024 Creatinine [Mass/Vol] 2.23 mg/dL High 0.70-1.20 [facility] Serum glucose measurement (m ass/volume)Ordered By: Ibrahima Camarena on 12-15-2024 Glucose [Mass/Vol] 106 mg/dL High 70-99 [facility] Serum or plasma calcium tran urement (mass/volume)Ordered By: Ibrahima Camarena on 12-15-2024 Calcium [Mass/Vol] 9.1 mg/dL 7.6-11.0 [facility] Serum or plasma urea nitroge n measurement (mass/volume)Ordered By: Ibrahima Camarena on 12-15-2024 Urea nitrogen [Mass/Vol] 41 mg/dL High 4-19 [facility] Sodium levelOrdered By: Ibrahima Camarena on 12-15-2024 Sodium [Moles/Vol] 132 mmol/L Low 133-145 [facility] White blood cell (WBC) count Ordered By: Ibrahima Camarena on 12-15-2024 WBC (Bld) [#/Vol] 11.3 10*3/uL High 4.4-11.0 [facility] Basic metabolic 2000 panelon 12-14-2024 Anion gap [Moles/Vol] 13 mmol/L Normal 8-15 [facility] Comment on above: Order Comment: Speci men Type: BLOOD SPECIMENOrdering Facility: [facility] Address: [facility] [place] [address] Performed By: #### 2 4321-2 ####[facility] LABCLIA [id number] [place] [address] [place] Calcium [Mass/Vol] 9.3 mg/dL Normal 8.5-10.2 [facility] Comment on above: Order Comment: Speci men Type: BLOOD SPECIMENOrdering Facility: [facility] Address: [address] [place] [address] Performed By: #### 2 4321-2 ####[facility] LABCLIA [id number] [place] [id number] [place] Chloride [Moles/Vol] 109 mmol/L High 98-107 [facility] Comment on above: Order Comment: Speci men Type: BLOOD SPECIMENOrdering Facility: [facility] Address: [address] [place] [address] Performed By: #### 2 4321-2 ####[facility] LABCLIA [id number] [place] [id number] [place] CO2 [Moles/Vol] 13 mmol/L Low 22-30 [facility] Comment on above: Order Comment: Speci men Type: BLOOD SPECIMENOrdering Facility: [facility] Address: [address] [place] [address] Performed By: #### 2 4321-2 ####[facility] LABCLIA [id number] [place] [id number] [place] Creatinine [Mass/Vol] 2.51 mg/dL High 0.73-1.22 [facility] Comment on above: Order Comment: Rose summers Type: BLOOD SPECIMENOrdering Facility: [facility] Address: [address] [place] [address] Performed By: #### 2 4321-2 ####[facility] LABCLIA [id number] [place] [address] [place] Creatinine and Glomerular filtration rate.predicted panel (S/P/Bld) 30 mL/min/1.73m??? Low >=60 [facility] Comment on above: Order Comment: Rose summers Type: BLOOD SPECIMENOrdering Facility: [facility] Address: [address] [place] [address] Result Comment: Marlen mated Glomerular Filtration Rate [...] actual GFR. Performed By: #### 2 4321-2 ####[facility] LABCLIA [id number] [place] [address] [place] Glucose [Mass/Vol] 124 mg/dL High 74-99 [facility] Comment on above: Order Comment: Rose summers Type: BLOOD SPECIMENOrdering Facility: [facility] Address: [address] [place] [address] Result Comment: The [employer] Association (ADA) provides guidance for cutoff [...] Standards of Medical Care in Diabetes 2016, [employer]. Diabetes Care. 2016.39(Suppl 1). Performed By: #### 2 4321-2 ####[facility] LABIA [id number] [place] [address] [place] Potassium [Moles/Vol] 3.6 mmol/L Low 3.7-5.1 [facility] Comment on above: Order Comment: Rose summers Type: BLOOD SPECIMENOrdering Facility: [facility] Address: [address] [place] [address] Performed By: #### 2 4321-2 ####[facility] LABIA [id number] [place] [address] [place] Sodium [Moles/Vol] 135 mmol/L Low 136-144 [facility] Comment on above: Order Comment: Rose summers Type: BLOOD SPECIMENOrdering Facility: [facility] Address: [address] [place] [address] Performed By: #### 2 4321-2 ####[facility] LABIA [id number] [place] [address] [place] Urea nitrogen [Mass/Vol] 43 mg/dL High 9-24 [facility] Comment on above: Order Comment: Rose summers Type: BLOOD SPECIMENOrdering Facility: [facility] Address: [address] [place] [address] Performed By: #### 2 4321-2 ####[facility] [id number] [place] [id number] [place] Paula 12-14-2024 AGNES Telephone (BIRDWS) FIRST,DOV W ([id number]) 1970 M Date Time Provider Department 12/14/24 JULISSA UGARTE INTLibbyWS During your visit today, we recorded the following information about you: Julissa Ugarte APRN.LITERACY EDUCATION PROFESSOR 12/14/2024 7:29 AM Addendum Please let him [...] (L) 28 (L) 30 (L) Julissa Ugarte APRN.NED 12/14/2024 7:29 AM Signed Addended by: JULISSA [...] increased ostomy output. PEDRO LUIS Peoples Terri, PERLA.LITERACY EDUCATION PROFESSOR 12/14/2024 3:37 PM Signed Has obtained labs, results not yet in. Julissa Ugarte APRN.LITERACY EDUCATION PROFESSOR 12/15/2024 7:15 AM Signed Lab results show [...] R19.7] Order(s):BASIC METABOLIC PANEL [SQBMP] Order #: [id number] FUTURE Prescriptions as of 12/15/2024 - loperamide [...] water wit (more content not included)... Normal [facility] Basic metabolic 2000 panelon 12-12-2024 Anion gap [Moles/Vol] 15 mmol/L 8 - 15 mmol/L [facility] Calcium [Mass/Vol] 9 mg/dL 8.5 - 10. 2 mg/dL [facility] Chloride [Moles/Vol] 110 mmol/L High 98 - 10 7 mmol/L [facility] CO2 [Moles/Vol] 9 mmol/L Critically low 22 - 30 mmol/L [facility] Creatinine [Mass/Vol] 2.63 mg/dL High 0.73 - 1.22 mg/dL [facility] GFR/1.73 sq M.predicted among non-blacks MDRD (S/P/Bld) [Vol rate/Area] 28 mL/min/{1.73_m2} Low - PINF [facility] Comment on above: Estimated Glomerular Filtration Rate [...] 112 mg/dL High 74 - 99 mg/dL [facility] Comment on above: The [employer] Diabete s Association (ADA) provides guidance for [...] Standards of Medical Care in Diabetes 2016, [employer]. Diabetes Care. 2016.39(Suppl 1). Interpretation and review of laboratory results Abnormal [facility] Potassium [Moles/Vol] 3.9 mmol/L 3.7 - 5.1 mmol/L [facility] Sodium [Moles/Vol] 134 mmol/L Low 136 - 144 mmol/L [facility] Urea nitrogen [Mass/Vol] 56 mg/dL High 9 - 24 mg/dL [facility] CBC panel Auto (Bld)on 12-12 Erythrocyte distribution width (RBC) [Ratio] 14.3 % Normal 11.5-15.0 [facility] Comment on above: Order Comment: Speci men Type: BLOOD SPECIMENOrdering Facility: [facility] Address: [address] [place] [address] Performed By: #### 5 8410-2 ####[facility] LABIA [id number] [place] [address] [place] Hematocrit (Bld) [Volume fraction] 37.1 % Low 39.0-51.0 [facility] Comment on above: Order Comment: Speci men Type: BLOOD SPECIMENOrdering Facility: [facility] Address: [address] [place] [address] Performed By: #### 5 8410-2 ####[facility] LABIA [id number] [place] [address] [place] Hemoglobin (Bld) [Mass/Vol] 11.9 g/dL Low 13.0-17.0 [facility] Comment on above: Order Comment: Speci men Type: BLOOD SPECIMENOrdering Facility: [facility] Address: [address] [place] [address] Performed By: #### 5 8410-2 ####[facility] LABIA [id number] [place] [id number] [place] MCH (RBC) [Entitic mass] 30.8 pg Normal 26.0-34.0 [facility] Comment on above: Order Comment: Speci men Type: BLOOD SPECIMENOrdering Facility: [facility] Address: [address] [place] [address] Performed By: #### 5 8410-2 ####[facility] LABIA [id number] [place] [id number] [place] MCHC (RBC) [Mass/Vol] 32.1 g/dL Normal 30.5-36.0 [facility] Comment on above: Order Comment: Speci men Type: BLOOD SPECIMENOrdering Facility: [facility] Address: [address] [place] [address] Performed By: #### 5 8410-2 ####[facility] LABCLIA [id number] [place] [address] [place] MCV (RBC) [Entitic vol] 96.1 fL Normal 80.0-100.0 [facility] Comment on above: Order Comment: Speci men Type: BLOOD SPECIMENOrdering Facility: [facility] Address: [address] [place] [address] Performed By: #### 5 8410-2 ####[facility] LABIA [id number] [place] [address] [place] Nucleated RBC (Bld) [#/Vol] 0.02 10*3/uL High <0.01 [facility] Comment on above: Order Comment: Speci men Type: BLOOD SPECIMENOrdering Facility: [facility] Address: [address] [place] [address] Performed By: #### 5 8410-2 ####[facility] LABIA [id number] [place] [address] [place] Platelet mean volume (Bld) [Entitic vol] 9.0 fL Normal 9.0-12.7 [facility] Comment on above: Order Comment: Speci men Type: BLOOD SPECIMENOrdering Facility: [facility] Address: [address] [place] [address] Performed By: #### 5 8410-2 ####[facility] LABCLIA [id number] [place] [address] [place] Platelets (Bld) [#/Vol] 389 10*3/uL Normal 150-400 [facility] Comment on above: Order Comment: Speci men Type: BLOOD SPECIMENOrdering Facility: [facility] Address: [address] [place] [address] Performed By: #### 5 8410-2 ####[facility] LABIA [id number] [place] [address] [place] RBC (Bld) [#/Vol] 3.86 10*6/uL Low 4.20-6.00 [facility] Comment on above: Order Comment: Speci men Type: BLOOD SPECIMENOrdering Facility: [facility] Address: [address] [place] [address] Performed By: #### 5 8410-2 ####[facility] LABIA [id number] [place] [address] [place] WBC (Bld) [#/Vol] 10.86 10*3/uL Normal 3.70-11.00 [facility] Comment on above: Order Comment: Speci men Type: BLOOD SPECIMENOrdering Facility: [facility] Address: [address] [place] [address] Performed By: #### 5 8410-2 ####[facility]IA [id number] [place] [address] [place] CNPFaviola 12-12-2024 [facility] Telephone (FMIUNI) FIRST,DOV Zepeda ([id number]) 1970 M Date Time Provider Department 12/12/24 DEREK ULLOA IUNI During your visit today, we recorded the following information about you: Derek Ulloa, 12/12/2024 3:21 PM Signed Made contact again [...] I would call him again. Dr. Derek Ulloa, DO Allergies As of Date: 12/12/2024 (No [...] Encounter Status:Closed by DEREK ULLOA on 12/12/24 [facility] Telephone (FMIUNI) FIRST,DOV Zepeda ([id number]) 1970 M Date Time Provider Department 12/12/24 [...] AM. 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 Discussed that I was [...] Epic maintenance at original time] Julissa Ugarte APRN.LITERACY EDUCATION PROFESSOR 12/14/2024 7:19 AM Signed Noted, will follow [...] Encounter Status:Closed by ZHANNA WAGNER on 12/14/24 Normal [facility] Comprehensive metabolic 2000 panelon 12-12-2024 Albumin [Mass/Vol] 4.2 g/dL Normal 3.9-4.9 [facility] Comment on above: Order Comment: Speci men Type: BLOOD SPECIMENOrdering Facility: [facility] Address: [address] [place] [address] Performed By: #### 2 4323-8, 79033-2 ####[facility] LABCLIA [id number] [place] [address] [place] ALP [Catalytic activity/Vol] 120 U/L High 38-113 [facility] Comment on above: Order Comment: Speci men Type: BLOOD SPECIMENOrdering Facility: [facility] Address: [address] [place] [address] Performed By: #### 2 4323-8, 70302-2 ####[facility] LABCLIA [id number] [place] [id number] [place] ALT [Catalytic activity/Vol] 20 U/L Normal 10-54 [facility] Comment on above: Order Comment: Speci men Type: BLOOD SPECIMENOrdering Facility: [facility] Address: [address] [place] [address] Performed By: #### 2 4323-8, 07553-9 ####[facility] LABCLIA [id number] [place] [phone] [place] Anion gap [Moles/Vol] 13 mmol/L Normal 8-15 [facility] Comment on above: Order Comment: Speci men Type: BLOOD SPECIMENOrdering Facility: [facility] Address: [address] [place] [address] Performed By: #### 2 4323-8, 72690-6 ####[facility] LABCLIA [id number] [place] [phone] [place] AST [Catalytic activity/Vol] 16 U/L Normal 14-40 [facility] Comment on above: Order Comment: Speci men Type: BLOOD SPECIMENOrdering Facility: [facility] Address: [address] [place] [address] Performed By: #### 2 4323-8, 71506-5 ####[facility] LABCLIA [id number] [place] [address] [place] Bilirubin [Mass/Vol] 0.3 mg/dL Normal 0.2-1.3 [facility] Comment on above: Order Comment: Speci men Type: BLOOD SPECIMENOrdering Facility: [facility] Address: [address] [place] [address] Performed By: #### 2 4323-8, 99390-8 ####[facility] LABCLIA [id number] [place] [phone] [place] Calcium [Mass/Vol] 9.1 mg/dL Normal 8.5-10.2 [facility] Comment on above: Order Comment: Speci men Type: BLOOD SPECIMENOrdering Facility: [facility] Address: [address] [place] [address] Performed By: #### 2 4323-8, 39457-3 ####[facility] LABCLIA [id number] [facility] [place] [id number] [place] Chloride [Moles/Vol] 108 mmol/L High 98-107 [facility] Comment on above: Order Comment: Speci men Type: BLOOD SPECIMENOrdering Facility: [facility] Address: [address] [place] [address] Performed By: #### 2 4323-8, 88329-5 ####[facility] LABCLIA [id number] [place] [id number] [place] CO2 [Moles/Vol] 12 mmol/L Low 22-30 [facility] Comment on above: Order Comment: Speci men Type: BLOOD SPECIMENOrdering Facility: [facility] Address: [address] [place] [address] Performed By: #### 2 4323-8, 60507-1 ####[facility]IA [id number] [place] [address] [place] Creatinine [Mass/Vol] 2.50 mg/dL High 0.73-1.22 [facility] Comment on above: Order Comment: Speci men Type: BLOOD SPECIMENOrdering Facility: [facility] Address: [address] [place] [address] Performed By: #### 2 4323-8, 01538-4 ####[facility]IA [id number] [place] [address] [place] Creatinine and Glomerular filtration rate.predicted panel (S/P/Bld) 30 mL/min/1.73m??? Low >=60 [facility] Comment on above: Order Comment: Speci men Type: BLOOD SPECIMENOrdering Facility: [facility] Address: [address] [place] [address] Result Comment: Marlen mated Glomerular Filtration Rate [...] actual GFR. Performed By: #### 2 4323-8, 98206-8 ####[facility]IA [id number] [place] [phone] [place] Glucose [Mass/Vol] 105 mg/dL High 74-99 [facility] Comment on above: Order Comment: Speci men Type: BLOOD SPECIMENOrdering Facility: [facility] Address: [address] [place] [address] Result Comment: The [employer] Diabetes Association (ADA) provides guidance for cutoff [...] Standards of Medical Care in Diabetes 2016, [employer] Diabetes Association. Diabetes Care. 2016.39(Suppl 1). Performed By: #### 2 4323-8, 46524-8 ####[facility]IA [id number] [place] [address] [place] Potassium [Moles/Vol] 3.3 mmol/L Low 3.7-5.1 [facility] Comment on above: Order Comment: Speci men Type: BLOOD SPECIMENOrdering Facility: [facility] Address: [address] [place] [address] Performed By: #### 2 4323-8, 11996-2 ####[facility]IA [id number] [place] [phone] [place] Protein [Mass/Vol] 7.7 g/dL Normal 6.3-8.0 [facility] Comment on above: Order Comment: Speci men Type: BLOOD SPECIMENOrdering Facility: [facility] Address: [address] [place] [address] Performed By: #### 2 4323-8, 67045-8 ####[facility] LABCLIA [id number] [address] [address] [place] Sodium [Moles/Vol] 133 mmol/L Low 136-144 [facility] Comment on above: Order Comment: Speci men Type: BLOOD SPECIMENOrdering Facility: [facility] Address: [address] [place] [address] Performed By: #### 2 4323-8, 04948-0 ####[facility]IA [id number] [place] [phone] [place] Urea nitrogen [Mass/Vol] 50 mg/dL High 9-24 [facility] Comment on above: Order Comment: Speci men Type: BLOOD SPECIMENOrdering Facility: [facility] Address: [address] [place] [address] Performed By: #### 2 4323-8, 46726-3 ####[facility]IA [id number] [place] [phone] [place] Lipid 1996 panelon 5 Cholesterol [Mass/Vol] 103 mg/dL Normal <200 [facility] Comment on above: Order Comment: Speci men Type: BLOOD SPECIMENOrdering Facility: [facility] Address: [address] [place] [address] Result Comment: <200 mg/dL, Desirable 200-239 mg/dL, Borderline high >239 mg/dL, High Performed By: #### 2 4323-8, 63421-3 ####[facility]IA [id number] [place] [phone] [place] Cholesterol in HDL [Mass/Vol] 46 mg/dL Normal >39 [facility] Comment on above: Order Comment: Speci men Type: BLOOD SPECIMENOrdering Facility: [facility] Address: [address] [place] [address] Result Comment: 40-5 9 mg/dL, Acceptable >59 mg/dL, High: Negative risk factor for coronary heart disease <40 mg/dL, Low: Positive risk factor for coronary heart disease Performed By: #### 2 4323-8, 49174-8 ####[facility] LABCLIA [id number] [address] STATES OF [facility] Cholesterol in LDL [Mass/Vol] 48 mg/dL Normal <100 [facility] Comment on above: Order Comment: Speci men Type: BLOOD SPECIMENOrdering Facility: [facility] Address: [address] [place] [address] Result Comment: <100 mg/dL, Optimal 100-129 mg/dL, Near optimal/above optimal 130-159 mg/dL, Borderline high 160-189 mg/dL, High >189 mg/dL, Very high Secondary prevention optimal LDL Cholesterol levels are recommended to be < 70 mg/dL Performed By: #### 2 4323-8, 46062-8 ####[facility]IA [id number] [address] Cholesterol in LDL/Cholesterol in HDL [Mass ratio] 1.04 {ratio} Normal <2.54 [facility] Comment on above: Order Comment: Rafaeli men Type: BLOOD SPECIMENOrdering Facility: [facility] Address: [address] [place] [address] Result Comment: Refe rence: 1. National Cholesterol Education Program ATP III Guideline At-A-Glance Quick Desk Reference: National Heart, Lung, and Blood [place]. National Institutes of Health. 2001: NIH Publication No. 01-3305. 2. An International Atherosclerosis Society position paper: global recommendations for the management of dyslipidemia: executive summary, Atherosclerosis. 2014: 232(2):410-413. Performed By: #### 2 4323-8, 89362-2 ####[facility]IA [id number] [address] [place] Cholesterol in VLDL [Mass/Vol] 9 mg/dL Normal <30 [facility] Comment on above: Order Comment: Speci men Type: BLOOD SPECIMENOrdering Facility: [facility] Address: [address] [place] [address] Performed By: #### 2 4323-8, 44476-1 ####[facility] LABCLIA [id number] [address] [address] [place] Cholesterol non HDL [Mass/Vol] 57 mg/dL Normal <130 [facility] Comment on above: Order Comment: Speci men Type: BLOOD SPECIMENOrdering Facility: [facility] Address: [address] [place] [address] Result Comment: <130 mg/dL, Optimal 130-159 mg/dL, Near optimal/above optimal 160-189 mg/dL, Borderline high 190-219 mg/dL, High >219 mg/dL, Very high Secondary prevention optimal non HDL Cholesterol levels are recommended to be <100 mg/dL Performed By: #### 2 4323-8, 57890-5 ####[facility] LABCLIA [id number] [place] [phone] [place] Cholesterol.total/Chol esterol in HDL [Mass ratio] 2.24 {ratio} Normal <5.10 [facility] Comment on above: Order Comment: Speci men Type: BLOOD SPECIMENOrdering Facility: [facility] Address: [address] [place] [address] Performed By: #### 2 4323-8, 82061-5 ####[facility] LABCLIA [id number] [place] [phone] [place] FASTING TIME 12 hrs Normal [facility] Comment on above: Order Comment: Speci men Type: BLOOD SPECIMENOrdering Facility: [facility] Address: [address] [place], [place] [address] Performed By: #### 2 4323-8, 98445-9 ####[facility] LABCLIA [id number] [address] [address] [place] Triglyceride [Mass/Vol] 43 mg/dL Normal <150 [facility] Comment on above: Order Comment: Speci men Type: BLOOD SPECIMENOrdering Facility: [facility] Address: [address] [place] [address] Result Comment: <150 mg/dL, Normal 150-199 mg/dL, Borderline high 200-499 mg/dL, High >499 mg/dL, Very high Performed By: #### 2 4323-8, 73691-5 ####[facility] LABCLIA [id number] [facility] [place] [id number] [place] Basic metabolic 2000 panelon 12-11-2024 Anion gap [Moles/Vol] 15 mmol/L Normal 8-15 [facility] Comment on above: Order Comment: Speci men Type: BLOOD SPECIMENOrdering Facility: [facility] Address: [address] [place] [address] Performed By: #### 2 4321-2 ####[facility] LABCLIA [id number] [place] [address] [place] Calcium [Mass/Vol] 9.0 mg/dL Normal 8.5-10.2 [facility] Comment on above: Order Comment: Speci men Type: BLOOD SPECIMENOrdering Facility: [facility] Address: [address] [place] [address] Performed By: #### 2 4321-2 ####[facility] LABCLIA [id number] [facility] [place] [id number] [place] Chloride [Moles/Vol] 110 mmol/L High 98-107 [facility] Comment on above: Order Comment: Speci men Type: BLOOD SPECIMENOrdering Facility: [facility] Address: [address] [place], [place] [address] Performed By: #### 2 4321-2 ####[facility] LABCLIA [id number] [facility] [place] [id number] [place] CO2 [Moles/Vol] 9 mmol/L Critically low 22-30 [facility] Comment on above: Order Comment: Speci men Type: BLOOD SPECIMENOrdering Facility: [facility] Address: [address] [place] [id number] Performed By: #### 2 4321-2 ####[facility] LABIA [id number] [place] [phone] [place] Creatinine [Mass/Vol] 2.63 mg/dL High 0.73-1.22 [facility] Comment on above: Order Comment: Speci men Type: BLOOD SPECIMENOrdering Facility: [facility] Address: [address] [place] [address] Performed By: #### 2 4321-2 ####[facility] LABIA [id number] [place] [address] [place] [facility] Creatinine and Glomerular filtration rate.predicted panel (S/P/Bld) 28 mL/min/1.73m??? Low >=60 [facility] Comment on above: Order Comment: Rose summers Type: BLOOD SPECIMENOrdering Facility: [facility] Address: [address] [place] [address] Result Comment: Marlen mated Glomerular Filtration Rate [...] actual GFR. Performed By: #### 2 4321-2 ####[facility]IA [id number] [place] [phone] [place] Glucose [Mass/Vol] 112 mg/dL High 74-99 [facility] Comment on above: Order Comment: Rafaeli men Type: BLOOD SPECIMENOrdering Facility: [facility] Address: [address] [place] [address] Result Comment: The [employer] Diabetes Association (ADA) provides guidance for cutoff [...] Standards of Medical Care in Diabetes 2016, [place] Diabetes Association. Diabetes Care. 2016.39(Suppl 1). Performed By: #### 2 4321-2 ####[facility]IA [id number] [place] [address] [place] Potassium [Moles/Vol] 3.9 mmol/L Normal 3.7-5.1 [facility] Comment on above: Order Comment: Speci men Type: BLOOD SPECIMENOrdering Facility: [facility] Address: [address] [place] [address] Performed By: #### 2 4321-2 ####[facility]IA [id number] [place] [address] [place] Sodium [Moles/Vol] 134 mmol/L Low 136-144 [facility] Comment on above: Order Comment: Rafaeli melina Type: BLOOD SPECIMENOrdering Facility: [facility] Address: [address] [place] [address] Performed By: #### 2 4321-2 ####[facility]IA [id number] [place] [phone] [place] Urea nitrogen [Mass/Vol] 56 mg/dL High 9-24 [facility] Comment on above: Order Comment: Speci men Type: BLOOD SPECIMENOrdering Facility: [facility] Address: [address] [place] [address] Performed By: #### 2 4321-2 ####[facility]IA [id number] [address] [address] [place] Basic metabolic 2000 panelOr dered By: Joan Magdaleno on 12-04-2024 Anion gap [Moles/Vol] 13 mmol/L 8 - 15 mmol/L [facility] Calcium [Mass/Vol] 9.3 mg/dL 8.5 - 10. 2 mg/dL [facility] Chloride [Moles/Vol] 109 mmol/L High 98 - 10 7 mmol/L [facility] CO2 [Moles/Vol] 11 mmol/L Low 22 - 30 mmol/L [facility] Creatinine [Mass/Vol] 2.18 mg/dL High 0.73 - 1.22 mg/dL [facility] GFR/1.73 sq M.predicted among non-blacks MDRD (S/P/Bld) [Vol rate/Area] 36 mL/min/{1.73_m2} Low - PINF [facility] Comment on above: Estimated Glomerular Filtration Rate [...] [Mass/Vol] 94 mg/dL 74 - 99 mg/dL [facility] Comment on above: The [place] Diabete s Association (ADA) provides guidance for [...] Standards of Medical Care in Diabetes 2016, [employer] Diabetes Association. Diabetes Care. 2016.39(Suppl 1). Interpretation and review of laboratory results Abnormal [facility] Potassium [Moles/Vol] 4.6 mmol/L 3.7 - 5.1 mmol/L [facility] Sodium [Moles/Vol] 133 mmol/L Low 136 - 144 mmol/L [facility] Urea nitrogen [Mass/Vol] 51 mg/dL High 9 - 24 mg/dL [facility] Basic metabolic 2000 panelon 12-04-2024 Anion gap [Moles/Vol] 13 mmol/L Normal 8-15 [facility] Comment on above: Order Comment: Speci men Type: BLOOD SPECIMENOrdering Facility: [facility] Address: [address] [place] [address] Performed By: #### 2 4321-2 ####[facility] [id number] [place] [address] [place] Calcium [Mass/Vol] 9.3 mg/dL Normal 8.5-10.2 [facility] Comment on above: Order Comment: Speci men Type: BLOOD SPECIMENOrdering Facility: [facility] Address: [address] [place] [address] Performed By: #### 2 4321-2 ####[facility] [id number] [place] [address] [place] Chloride [Moles/Vol] 109 mmol/L High 98-107 [facility] Comment on above: Order Comment: Speci men Type: BLOOD SPECIMENOrdering Facility: [facility] Address: [address] [place] [address] Performed By: #### 2 4321-2 ####[facility] [id number] [place] [address] [place] CO2 [Moles/Vol] 11 mmol/L Low 22-30 [facility] Comment on above: Order Comment: Speci men Type: BLOOD SPECIMENOrdering Facility: [facility] Address: [address] [place] [address] Performed By: #### 2 4321-2 ####[facility] [id number] [place] [address] [place] Creatinine [Mass/Vol] 2.18 mg/dL High 0.73-1.22 [facility] Comment on above: Order Comment: Speci men Type: BLOOD SPECIMENOrdering Facility: [facility] Address: [address] [place] [address] Performed By: #### 2 4321-2 ####[facility] [id number] [place] [address] [place] Creatinine and Glomerular filtration rate.predicted panel (S/P/Bld) 36 mL/min/1.73m??? Low >=60 [facility] Comment on above: Order Comment: Rose summers Type: BLOOD SPECIMENOrdering Facility: [facility] Address: [address] [place] [address] Result Comment: Marlen mated Glomerular Filtration Rate [...] actual GFR. Performed By: #### 2 4321-2 ####[facility] [id number] [place] [address] [place] Glucose [Mass/Vol] 94 mg/dL Normal 74-99 [facility] Comment on above: Order Comment: Rose summers Type: BLOOD SPECIMENOrdering Facility: [facility] Address: [address] [place] [address] Result Comment: The [place] Diabetes Association (ADA) provides guidance for cutoff [...] Standards of Medical Care in Diabetes 2016, [place] Diabetes Association. Diabetes Care. 2016.39(Suppl 1). Performed By: #### 2 4321-2 ####[facility] [id number] [place] [address] [place] Potassium [Moles/Vol] 4.6 mmol/L Normal 3.7-5.1 [facility] Comment on above: Order Comment: Speci men Type: BLOOD SPECIMENOrdering Facility: [facility] Address: [address] [place] [address] Performed By: #### 2 4321-2 ####[facility] [id number] [place] [address] [place] Sodium [Moles/Vol] 133 mmol/L Low 136-144 [facility] Comment on above: Order Comment: Speci men Type: BLOOD SPECIMENOrdering Facility: [facility] Address: [address] [place] [address] Performed By: #### 2 4321-2 ####[facility] [id number] [place] [address] [place] Urea nitrogen [Mass/Vol] 51 mg/dL High 9-24 [facility] Comment on above: Order Comment: Speci men Type: BLOOD SPECIMENOrdering Facility: [facility] Address: [address] [place] [address] Performed By: #### 2 4321-2 ####[facility] [id number] [place] [address] [place] CNOVon 12-04-2024 CNOV Office Visit (INTMWS ) DOV BURROWS ([id number]) 1970 M Date Time Provider Department 12/04/24 11:00 AM JULISSA UGARTEWS During your visit today, we recorded the following information about you: Pulse Respiration Blood pressure Weight 73/minute 16/minute 106/71 95 kg Julissa Ugarte APRN.LITERACY EDUCATION PROFESSOR 12/14/2024 7:15 AM Addendum SUBJECTIVE: Hepatitis C [...] and Lump, Unspecified Site Presents for an [facility] hospital follow up visit today. He was [...] continue to monitor. He was seen at [facility] November 27, 2024 for nausea vomiting [...] have help to slow output. Hyperlipidemia. Mr. uBrrows reports doing well on current therapy His [...] General: Mike (more content not included)... Normal [facility] CBC W/Diff, Automatedon PATH REV Reviewed Normal [facility] Comment on above: Result Comment: SLIG HT LEUKOCYTOSIS WITH MILD GRANULOCYTOSIS AND NO SIGNFICIANT LEFT SHIFT. NORMOCYTIC NORMOCHROMIC MILD ANEMIA. ADEQUATE PLATELETS. Izabella Graff MD 12/02/2024 AMENDED REPORT 12/02/24 1353 PATH REV previously reported as: January Performed By: #### L 501.5200, L100.0100, L501.2300, L501.9520, L500.4050 ####[facility] [id number] [place], [address] Absolute lymphocyte countOrd ered By: Sara Quezada on 11-29-2024 Lymphocytes Auto (Unsp spec) [#/Vol] 1.42 10*3/uL 0.83-4.51 [facility] Absolute neutrophil countOrd ered By: Sara Quezada on 11-29-2024 Neutrophils (Bld) [#/Vol] 7.9 10*3/uL High 2.0-7.7 [facility] Automated lymphocyte count a s percentage of total leukocytesOrdered By: Sara Quezada on 11-29-2024 Lymphocytes/100 WBC Auto (Unsp spec) 12.9 % Low 19-41 [facility] BUN/creatinine ratioOrdered By: Sara Quezada on 11-29-2024 Urea nitrogen/Creatinine [Mass ratio] 19.6 mg/mg 10-20 [facility] Basic Metabolic Profile (BMP )on 11-29-2024 Anion gap [Moles/Vol] 13 mmol/L Normal 5-15 [facility] Comment on above: Performed By: #### L 503.7505, L500.2500, L100.0100 #### [facility] [address] [place], [address] Chloride [Moles/Vol] 100 mmol/L Normal 96-108 [facility] Comment on above: Performed By: #### L 503.7505, L500.2500, L100.0100 #### [facility] [address] [place], [address] Potassium [Moles/Vol] 2.8 mmol/L Low 3.3-5.1 [facility] Comment on above: Performed By: #### L 503.7505, L500.2500, L100.0100 #### [facility] [address] [place], [address] Sodium [Moles/Vol] 137 mmol/L Normal 133-145 [facility] Comment on above: Performed By: #### L 503.7505, L500.2500, L100.0100 #### [facility] [address] [place], [address] Basophil percentageOrdered B y: Sara Quezada on 11-29-2024 Basophils/100 WBC (Bld) 0.4 % 0-1 [facility] Bilirubin, totalOrdered By: Sara Quezada on 11-29-2024 Bilirubin [Mass/Vol] 0.28 mg/dL 0.00-1.30 [facility] Carbon dioxide measurementOr dered By: Sara Quezada on 11-29-2024 CO2 [Moles/Vol] 24.2 mmol/L 22.0-29.0 [facility] Chloride measurementOrdered By: Sara Quezada on 11-29-2024 Chloride [Moles/Vol] 100 mmol/L 96-108 [facility] Comprehensive Metabolic Prof ilon 11-29-2024 Albumin [Mass/Vol] 3.4 g/dL Low 3.5-5.0 [facility] Comment on above: Performed By: #### L 501.5200, L100.0100, L501.2300, L501.9520, L500.4050 ####[facility] [address] [place], [address] Albumin/Globulin [Mass ratio] 1.0 {ratio} Normal 0.9-2.4 [facility] Comment on above: Performed By: #### L 501.5200, L100.0100, L501.2300, L501.9520, L500.4050 ####[facility] [address] [place], [address] ALK PHOS 91 U/L Normal 40-129 [facility] Comment on above: Performed By: #### L 501.5200, L100.0100, L501.2300, L501.9520, L500.4050 ####[facility] [address] [place], [address] ALT [Catalytic activity/Vol] 18 U/L Normal <=46 [facility] Comment on above: Performed By: #### L 501.5200, L100.0100, L501.2300, L501.9520, L500.4050 ####[facility] [address] [place], [address] Anion gap [Moles/Vol] 12 mmol/L Normal 5-15 [facility] Comment on above: Performed By: #### L 501.5200, L100.0100, L501.2300, L501.9520, L500.4050 ####[facility] [address] [place], [address] AST [Catalytic activity/Vol] 17 U/L Normal <=37 [facility] Comment on above: Performed By: #### L 501.5200, L100.0100, L501.2300, L501.9520, L500.4050 ####[facility] [address] [place], [address] Bilirubin [Mass/Vol] 0.28 mg/dL Normal 0.00-1.30 [facility] Comment on above: Performed By: #### L 501.5200, L100.0100, L501.2300, L501.9520, L500.4050 ####[facility] [address] [place], [address] BUN/CRE 19.4 RATIO Normal 10-20 [facility] Comment on above: Performed By: #### L 501.5200, L100.0100, L501.2300, L501.9520, L500.4050 ####[facility] [address] [place], [address] Calcium [Mass/Vol] 8.9 mg/dL Normal 7.6-11.0 [facility] Comment on above: Performed By: #### L 501.5200, L100.0100, L501.2300, L501.9520, L500.4050 ####[facility] [address] [place], [address] Chloride [Moles/Vol] 97 mmol/L Normal 96-108 [facility] Comment on above: Performed By: #### L 501.5200, L100.0100, L501.2300, L501.9520, L500.4050 ####[facility] [address] [place], [address] CO2 [Moles/Vol] 26.2 mmol/L Normal 22.0-29.0 [facility] Comment on above: Performed By: #### L 501.5200, L100.0100, L501.2300, L501.9520, L500.4050 ####[facility] [address] [place], [address] Creatinine [Mass/Vol] 1.86 mg/dL High 0.70-1.20 [facility] Comment on above: Performed By: #### L 501.5200, L100.0100, L501.2300, L501.9520, L500.4050 ####[facility] [address] [place], [address] ECRCL 50.99 ml/min Normal 50-250 [facility] Comment on above: Performed By: #### L 501.5200, L100.0100, L501.2300, L501.9520, L500.4050 ####[facility] [address] [place], [address] GFR/1.73 sq M.predicted among non-blacks MDRD (S/P/Bld) [Vol rate/Area] 43 mL/min/{1.73_m2} Low >60 [facility] Comment on above: Result Comment: mL/m in/1.73m2 CKD-EPI Creatinine Equation (2020) Performed By: #### L 501.5200, L100.0100, L501.2300, L501.9520, L500.4050 ####[facility] [address] [place], [address] Globulin (S) [Mass/Vol] 3.5 g/dL Normal 2.2-4.2 [facility] Comment on above: Performed By: #### L 501.5200, L100.0100, L501.2300, L501.9520, L500.4050 ####[facility] [address] [place], [address] Glucose [Mass/Vol] 129 mg/dL High 70-99 [facility] Comment on above: Performed By: #### L 501.5200, L100.0100, L501.2300, L501.9520, L500.4050 ####[facility] [address] [place], [address] Potassium [Moles/Vol] 2.7 mmol/L Invalid Interpretation Code 3.3-5.1 [facility] Comment on above: Result Comment: Crit ical Result(s) Called at 11/29/2024 08:16 by Dominick Perera to Alexia Garcia??Results read back by same. Performed By: #### L 501.5200, L100.0100, L501.2300, L501.9520, L500.4050 ####[facility] [address] [place], [address] Sodium [Moles/Vol] 135 mmol/L Normal 133-145 [facility] Comment on above: Performed By: #### L 501.5200, L100.0100, L501.2300, L501.9520, L500.4050 ####[facility] [address] [place], [address] T PROT 6.9 g/dL Normal 5.9-8.4 [facility] Comment on above: Performed By: #### L 501.5200, L100.0100, L501.2300, L501.9520, L500.4050 ####[facility] [address] [place], [address] Urea nitrogen [Mass/Vol] 36 mg/dL High 4-19 [facility] Comment on above: Performed By: #### L 501.5200, L100.0100, L501.2300, L501.9520, L500.4050 ####[facility] [address] [place], [address] Eosinophil percentageOrdered By: Sara Quezada on 11-29-2024 Eosinophils/100 WBC (Bld) 1.0 % 0-5 [facility] Erythrocyte distribution wid th ratioOrdered By: Sara Quezada on 11-29-2024 Erythrocyte distribution width (RBC) [Ratio] 14.5 % 11.6-14.6 [facility] Erythrocyte distribution wid th standard deviationOrdered By: Sara Quezada on 11-29-2024 Erythrocyte distribution width (RBC) [Entitic vol] 48.4 fL High 35.1-43.9 [facility] Erythrocyte distribution width (RBC) [Ratio] 48.4 fl High 35.1-43.9 [facility] Estimation of creatinine emma aranceOrdered By: Sara Quezada on 11-29-2024 Estimated Creatinine Clearance Calc 56.79 ml/min 50-250 [facility] GFR/1.73 sq M.predicted jaime g non-blacks MDRD (S/P/Bld) [Vol rate/Area]Ordered By: Sara Quezada on 11-29-2024 Estimated GFR (MDRD) Non-Af Amer 49 Low >60 [facility] Comment on above: mL/min/1.73m2 CKD-EP I Creatinine Equation (2020) Glomerular filtration rate ( GFR) estimation/1.73 sq m using serum, plasma, or whole bOrdered By: Sara Quezada on 11-29-2024 GFR/1.73 sq M.predicted among non-blacks MDRD (S/P/Bld) [Vol rate/Area] 49 mL/min/{1.73_m2} Low >60 [facility] Comment on above: mL/min/1.73m2 CKD-EP I Creatinine Equation (2020) Hematocrit Auto (Bld) [Volum e fraction]Ordered By: Sara Quezada on 11-29-2024 Hematocrit (Bld) [Volume fraction] 37.0 % Low 40-54 [facility] Hemoglobin measurementOrdere d By: Sara Quezada on 11-29-2024 Hemoglobin (Bld) [Mass/Vol] 12.4 g/dL Low 13.0-16.5 [facility] Immature granulocytes/100 WB C Auto (Bld)Ordered By: Sara Quezada on 11-29-2024 Immature granulocytes/100 WBC (Bld) 0.300 % 0.0-0.9 [facility] Comment on above: IG% - Immature Granu locytes (promyelocytes, myelocytes and metamyelocytes) > 1% indicates that a LEFT SHIFT is Present. Laboratory - Chemistry and C hemistry - challengeOrdered By: Sara Quezada on 11-29-2024 AST [Catalytic activity/Vol] 17 U/L <38 [facility] Lymphocytes Auto (Unsp spec) [#/Vol]Ordered By: Sara Quezada on 11-29-2024 Lymphocytes (Bld) [#/Vol] 1.42 10*3/uL 0.83-4.51 [facility] Lymphocytes/100 WBC Auto (Un sp spec)Ordered By: Sara Quezada on 11-29-2024 Lymphocytes/100 WBC (Bld) 12.9 % Low 19-41 [facility] MCV (mean corpuscular volume ) determinationOrdered By: Sara Quezada on 11-29-2024 MCV (RBC) [Entitic vol] 91.4 fL 80-94 [facility] Magnesiumon 11-29-2024 Magnesium [Mass/Vol] 1.6 mg/dL Normal 1.5-2.2 [facility] Comment on above: Performed By: #### L 501.5200, L100.0100, L501.2300, L501.9520, L500.4050 ####[facility] [address] [facility] [place], [address] Magnesium (Unsp spec) [Mass/ Vol]Ordered By: Sara Quezada on 11-29-2024 Magnesium [Mass/Vol] 1.6 mg/dL 1.5-2.2 [facility] Magnesium measurement (mass/ volume)Ordered By: Sara Quezada on 11-29-2024 Magnesium (Unsp spec) [Mass/Vol] 1.6 mg/dL 1.5-2.2 [facility] Mean corpuscular hemoglobin (MCH) determinationOrdered By: Sara Quezada on 11-29-2024 MCH (RBC) [Entitic mass] 30.6 pg 27.0-32.0 [facility] Mean corpuscular hemoglobin concentration (MCHC) determinationOrdered By: Sara Quezada on 11-29-2024 MCHC (RBC) [Mass/Vol] 33.5 g/dL 32-36 [facility] Mean platelet volume determi nationOrdered By: Sara Quezada on 11-29-2024 Platelet mean volume (Bld) [Entitic vol] 8.9 fL 6.2-12.0 [facility] Monocyte percentageOrdered B y: Sara Quezada on 11-29-2024 Monocytes/100 WBC (Bld) 13.7 % High 0-10 [facility] Neutrophil percentageOrdered By: Sara Quezada on 11-29-2024 Neutrophils/100 WBC (Bld) 71.7 % High 47-70 [facility] Nucleated red blood cell per centageOrdered By: Sara Quezada on 11-29-2024 Nucleated RBC/100 WBC (Bld) [Ratio] 0 % 0-5 [facility] Pathologist review Marco (Unsp spec) [Interp]Ordered By: Sara Quezada on 11-29-2024 Differential Pathologist's Review Reviewed [facility] Comment on above: Previous reported re sult: January mick Edited by: MANN on 12/02/24:1353SLIGHT LEUKOCYTOSIS WITH MILD GRANULOCYTOSIS AND NO SIGNFICIANT LEFT SHIFT.NORMOCYTIC NORMOCHROMIC MILD ANEMIA.ADEQUATE PLATELETS.Izabella Graff MD 12/02/2024 AMENDED REPORT 12/02/24 1353 PATH REV previously reported as: Lashae barton Phosphoruson 11-29-2024 Phosphate [Mass/Vol] 2.1 mg/dL Low 2.7-4.5 [facility] Comment on above: Performed By: #### L 501.5200, L100.0100, L501.2300, L501.9520, L500.4050 ####[facility] [address] [place], [address] Platelet countOrdered By: Chio Quezada on 11-29-2024 Platelets (Bld) [#/Vol] 377 10*3/uL 150-450 [facility] RBC Auto (Bld) [#/Vol]Ordere d By: Sara Quezada on 11-29-2024 RBC (Bld) [#/Vol] 4.05 10*6/uL Low 4.6-6.2 [facility] Review by pathologistOrdered By: Sara Quezada on 11-29-2024 Pathologist review Marco (Unsp spec) [Interp] Reviewed [facility] Comment on above: Previous reported re sult: May foll Edited by: MANN on 12/02/24:1353SLIGHT LEUKOCYTOSIS WITH MILD GRANULOCYTOSIS AND NO SIGNFICIANT LEFT SHIFT.NORMOCYTIC NORMOCHROMIC MILD ANEMIA.ADEQUATE PLATELETS.Izabella Graff MD 12/02/2024 AMENDED REPORT 12/02/24 1353 PATH REV previously reported as: January mick Serum creatinine measurement (mass/volume)Ordered By: Sara Quezada on 11-29-2024 Creatinine [Mass/Vol] 1.67 mg/dL High 0.70-1.20 [facility] Serum globulin measurementOr dered By: Sara Quezada on 11-29-2024 Globulin (S) [Mass/Vol] 3.5 g/dL 2.2-4.2 [facility] Serum glucose measurement (m ass/volume)Ordered By: Sara Quezada on 11-29-2024 Glucose [Mass/Vol] 101 mg/dL High 70-99 [facility] Serum or plasma alanine cisneros otransferase (ALT) measurementOrdered By: Sara Quezada on 11-29-2024 ALT [Catalytic activity/Vol] 18 U/L <47 [facility] Serum or plasma albumin tran urement (mass/volume)Ordered By: Sara Quezada on 11-29-2024 Albumin [Mass/Vol] 3.4 g/dL Low 3.5-5.0 [facility] Serum or plasma albumin/glob ulin mass ratioOrdered By: Sara Quezada on 11-29-2024 Albumin/Globulin [Mass ratio] 1.0 {ratio} 0.9-2.4 [facility] Serum or plasma alkaline katie sphatase measurementOrdered By: Sara Quezada on 11-29-2024 ALP [Catalytic activity/Vol] 91 U/L 40-129 [facility] Serum or plasma anion gap de termination (moles/volume)Ordered By: Sara Quezada on 11-29-2024 Anion gap [Moles/Vol] 13 mmol/L 5-15 [facility] Serum or plasma calcium tran urement (mass/volume)Ordered By: Sara Quezada on 11-29-2024 Calcium [Mass/Vol] 8.7 mg/dL 7.6-11.0 [facility] Serum or plasma potassium me asurementOrdered By: Sara Quezada on 11-29-2024 Potassium [Moles/Vol] 2.8 mmol/L Low 3.3-5.1 [facility] Serum or plasma sodium measu rement (moles/volume)Ordered By: Sara Quezada on 11-29-2024 Sodium [Moles/Vol] 137 mmol/L 133-145 [facility] Serum or plasma urea nitroge n measurement (mass/volume)Ordered By: Sara Quezada on 11-29-2024 Urea nitrogen [Mass/Vol] 33 mg/dL High 4-19 [facility] Serum phosphorus measurement Ordered By: Sara Quezada on 11-29-2024 Phosphorus Level 2.1 mg/dL Low 2.7-4.5 [facility] TSH DL <= 0.005 mIU/L QnOrde red By: Sara Quezada on 11-29-2024 Thyroid Stimulating Hormone (TSH) 2.560 uIU/mL 0.300-4.20 0 [facility] TSH Qn 2.560 uIU/mL 0.300-4.20 0 [facility] Thyroid Stim Hormone (TSH)on 11-29-2024 TSH 2.560 uIU/mL Normal 0.300-4.20 0 [facility] Comment on above: Performed By: #### L 501.5200, L100.0100, L501.2300, L501.9520, L500.4050 ####[facility] [address] [place], [address] Total proteinOrdered By: Sangita Quezada on 11-29-2024 Protein [Mass/Vol] 6.9 g/dL 5.9-8.4 [facility] White blood cell (WBC) count Ordered By: Sara Quezada on 11-29-2024 WBC (Bld) [#/Vol] 11.1 10*3/uL High 4.4-11.0 [facility] Basic Metabolic Profile (BMP )on 11-28-2024 Anion gap [Moles/Vol] 16 mmol/L High 5-15 [facility] Comment on above: Performed By: #### L 503.7505, L500.2500, L100.0100 #### [facility] [address] [place], [address] BUN/CRE 21.1 RATIO High 10-20 [facility] Comment on above: Performed By: #### L 503.7505, L500.2500, L100.0100 #### [facility] [address] [place], [address] Calcium [Mass/Vol] 8.9 mg/dL Normal 7.6-11.0 [facility] Comment on above: Performed By: #### L 503.7505, L500.2500, L100.0100 #### [facility] [address] [place], [address] Chloride [Moles/Vol] 102 mmol/L Normal 96-108 [facility] Comment on above: Performed By: #### L 503.7505, L500.2500, L100.0100 #### [facility] [address] [place], [address] CO2 [Moles/Vol] 14.7 mmol/L Low 22.0-29.0 [facility] Comment on above: Performed By: #### L 503.7505, L500.2500, L100.0100 #### [facility] [address] [place], [address] Creatinine [Mass/Vol] 2.18 mg/dL High 0.70-1.20 [facility] Comment on above: Performed By: #### L 503.7505, L500.2500, L100.0100 #### [facility] [address] [place], [address] ECRCL 43.51 ml/min Normal [facility] Comment on above: Performed By: #### L 503.7505, L500.2500, L100.0100 #### [facility] [address] [place], [address] GFR/1.73 sq M.predicted among non-blacks MDRD (S/P/Bld) [Vol rate/Area] 36 mL/min/{1.73_m2} Low >60 [facility] Comment on above: Result Comment: mL/m in/1.73m2 CKD-EPI Creatinine Equation (2020) Performed By: #### L 503.7505, L500.2500, L100.0100 #### [facility] [address] [place], [address] Glucose [Mass/Vol] 122 mg/dL High 70-99 [facility] Comment on above: Performed By: #### L 503.7505, L500.2500, L100.0100 #### [facility] [address] [place], [address] Potassium [Moles/Vol] 2.8 mmol/L Low 3.3-5.1 [facility] Comment on above: Performed By: #### L 503.7505, L500.2500, L100.0100 #### [facility] [address] [place], [address] Sodium [Moles/Vol] 133 mmol/L Normal 133-145 [facility] Comment on above: Performed By: #### L 503.7505, L500.2500, L100.0100 #### [facility] [address] [place], [address] Urea nitrogen [Mass/Vol] 46 mg/dL High 4-19 [facility] Comment on above: Performed By: #### L 503.7505, L500.2500, L100.0100 #### [facility] [address] [place], [address] Anion gap [Moles/Vol] 16 mmol/L High 5-15 [facility] Comment on above: Performed By: #### L 503.7505, L500.2500, L100.0100 #### [facility] [address] [place], [address] BUN/CRE 21.2 RATIO High 10-20 [facility] Comment on above: Performed By: #### L 503.7505, L500.2500, L100.0100 #### [facility] [address] [place], [address] Calcium [Mass/Vol] 8.9 mg/dL Normal 7.6-11.0 [facility] Comment on above: Performed By: #### L 503.7505, L500.2500, L100.0100 #### [facility] [address] [place], [address] Chloride [Moles/Vol] 102 mmol/L Normal 96-108 [facility] Comment on above: Performed By: #### L 503.7505, L500.2500, L100.0100 #### [facility] [address] [place], [address] CO2 [Moles/Vol] 13.6 mmol/L Low 22.0-29.0 [facility] Comment on above: Performed By: #### L 503.7505, L500.2500, L100.0100 #### [facility] [address] [place], [address] Creatinine [Mass/Vol] 2.20 mg/dL High 0.70-1.20 [facility] Comment on above: Performed By: #### L 503.7505, L500.2500, L100.0100 #### [facility] [address] [place], [address] ECRCL 43.11 ml/min Normal [facility] Comment on above: Performed By: #### L 503.7505, L500.2500, L100.0100 #### [facility] [address] [place], [address] GFR/1.73 sq M.predicted among non-blacks MDRD (S/P/Bld) [Vol rate/Area] 35 mL/min/{1.73_m2} Low >60 [facility] Comment on above: Result Comment: mL/m in/1.73m2 CKD-EPI Creatinine Equation (2020) Performed By: #### L 503.7505, L500.2500, L100.0100 #### [facility] [address] [place], [address] Glucose [Mass/Vol] 125 mg/dL High 70-99 [facility] Comment on above: Performed By: #### L 503.7505, L500.2500, L100.0100 #### [facility] [address] [place], [address] Potassium [Moles/Vol] 3.0 mmol/L Low 3.3-5.1 [facility] Comment on above: Performed By: #### L 503.7505, L500.2500, L100.0100 #### [facility] [address] [place], [address] Sodium [Moles/Vol] 132 mmol/L Low 133-145 [facility] Comment on above: Performed By: #### L 503.7505, L500.2500, L100.0100 #### [facility] [address] [place], [address] Urea nitrogen [Mass/Vol] 47 mg/dL High 4-19 [facility] Comment on above: Performed By: #### L 503.7505, L500.2500, L100.0100 #### [facility] [address] [place], [address] CBC W/Diff, Automatedon 03-0 Absolute Lymph 0.85 X10 3/uL Normal 0.83-4.51 [facility] Comment on above: Performed By: #### L 500.4050, L501.5200, L501.2300, L100.0100 #### [facility] [address] [place], [address] Absolute Neut 7.9 X10 3/uL High 2.0-7.7 [facility] Comment on above: Performed By: #### L 500.4050, L501.5200, L501.2300, L100.0100 #### [facility] [address] [place], [address] Basophils/100 WBC (Bld) 0.4 % Normal 0-1 [facility] Comment on above: Performed By: #### L 500.4050, L501.5200, L501.2300, L100.0100 #### [facility] [address] [place], [address] Eosinophils/100 WBC (Bld) 0.6 % Normal 0-5 [facility] Comment on above: Performed By: #### L 500.4050, L501.5200, L501.2300, L100.0100 #### [facility] [address] [place], [address] Erythrocyte distribution width (RBC) [Ratio] 14.5 % Normal 11.6-14.6 [facility] Comment on above: Performed By: #### L 500.4050, L501.5200, L501.2300, L100.0100 #### [facility] [address] [place], [address] Hematocrit (Bld) [Volume fraction] 40.7 % Normal 40-54 [facility] Comment on above: Performed By: #### L 500.4050, L501.5200, L501.2300, L100.0100 #### [facility] [address] [place], [address] Hemoglobin (Bld) [Mass/Vol] 13.6 g/dL Normal 13.0-16.5 [facility] Comment on above: Performed By: #### L 500.4050, L501.5200, L501.2300, L100.0100 #### [facility] [address] [place], [address] IG% 0.500 Normal 0.0-0.9 [facility] Comment on above: Result Comment: IG% - Immature Granulocytes (promyelocytes, myelocytes and metamyelocytes) > 1% indicates that a LEFT SHIFT is Present. Performed By: #### L 500.4050, L501.5200, L501.2300, L100.0100 #### [facility] [address] [place], [address] Lymphocytes/100 WBC (Bld) 8.2 % Low 19-41 [facility] Comment on above: Performed By: #### L 500.4050, L501.5200, L501.2300, L100.0100 #### [facility] [address] [place], [address] MCH (RBC) [Entitic mass] 30.8 pg Normal 27.0-32.0 [facility] Comment on above: Performed By: #### L 500.4050, L501.5200, L501.2300, L100.0100 #### [facility] [address] [place], [address] MCHC (RBC) [Mass/Vol] 33.4 g/dL Normal 32-36 [facility] Comment on above: Performed By: #### L 500.4050, L501.5200, L501.2300, L100.0100 #### [facility] [address] [place], [address] MCV (RBC) [Entitic vol] 92.1 fL Normal 80-94 [facility] Comment on above: Performed By: #### L 500.4050, L501.5200, L501.2300, L100.0100 #### [facility] [address] [place], [address] Monocytes/100 WBC (Bld) 13.8 % High 0-10 [facility] Comment on above: Performed By: #### L 500.4050, L501.5200, L501.2300, L100.0100 #### [facility] [address] [place], [address] Neutrophils/100 WBC (Bld) 76.5 % High 47-70 [facility] Comment on above: Performed By: #### L 500.4050, L501.5200, L501.2300, L100.0100 #### [facility] [address] [place], [address] Nucleated RBC (Bld) [#/Vol] 0 10*3/uL Normal 0-5 [facility] Comment on above: Performed By: #### L 500.4050, L501.5200, L501.2300, L100.0100 #### [facility] [address] [place], [address] Platelet mean volume (Bld) [Entitic vol] 8.5 fL Normal 6.2-12.0 [facility] Comment on above: Performed By: #### L 500.4050, L501.5200, L501.2300, L100.0100 #### [facility] [address] [place], [address] Platelets (Bld) [#/Vol] 383 10*3/uL Normal 150-450 [facility] Comment on above: Performed By: #### L 500.4050, L501.5200, L501.2300, L100.0100 #### [facility] [address] [place], [address] RBC (Bld) [#/Vol] 4.42 10*6/uL Low 4.6-6.2 [facility] [facility] Comment on above: Performed By: #### L 500.4050, L501.5200, L501.2300, L100.0100 #### [facility] [address] [place], [address] RDW SD 49.2 fl High 35.1-43.9 [facility] Comment on above: Performed By: #### L 500.4050, L501.5200, L501.2300, L100.0100 #### [facility] [address] [place], [address] WBC (Bld) [#/Vol] 10.3 10*3/uL Normal 4.4-11.0 [facility] Comment on above: Performed By: #### L 500.4050, L501.5200, L501.2300, L100.0100 #### [facility] [address] [place], [address] Comprehensive Metabolic Prof ilon 11-28-2024 Albumin [Mass/Vol] 3.9 g/dL Normal 3.5-5.0 [facility] Comment on above: Performed By: #### L 500.4050, L501.5200, L501.2300, L100.0100 #### [facility] [address] [place], [address] Albumin/Globulin [Mass ratio] 1.0 {ratio} Normal 0.9-2.4 [facility] Comment on above: Performed By: #### L 500.4050, L501.5200, L501.2300, L100.0100 #### [facility] [address] [place], [address] ALK PHOS 105 U/L Normal 40-129 [facility] Comment on above: Performed By: #### L 500.4050, L501.5200, L501.2300, L100.0100 #### [facility] [address] [place], [address] ALT [Catalytic activity/Vol] 27 U/L Normal <=46 [facility] Comment on above: Performed By: #### L 500.4050, L501.5200, L501.2300, L100.0100 #### [facility] [address] [place], [address] Anion gap [Moles/Vol] 16 mmol/L High 5-15 [facility] Comment on above: Performed By: #### L 500.4050, L501.5200, L501.2300, L100.0100 #### [facility] [address] [place], [address] AST [Catalytic activity/Vol] 20 U/L Normal <=37 [facility] Comment on above: Performed By: #### L 500.4050, L501.5200, L501.2300, L100.0100 #### [facility] [address] [place], [address] Bilirubin [Mass/Vol] 0.20 mg/dL Normal 0.00-1.30 [facility] Comment on above: Performed By: #### L 500.4050, L501.5200, L501.2300, L100.0100 #### [facility] [address] [place], [address] BUN/CRE 21.1 RATIO High 10-20 [facility] Comment on above: Performed By: #### L 500.4050, L501.5200, L501.2300, L100.0100 #### [facility] [address] [place], [address] Calcium [Mass/Vol] 9.2 mg/dL Normal 7.6-11.0 [facility] Comment on above: Performed By: #### L 500.4050, L501.5200, L501.2300, L100.0100 #### [facility] [address] [place], [address] Chloride [Moles/Vol] 100 mmol/L Normal 96-108 [facility] Comment on above: Performed By: #### L 500.4050, L501.5200, L501.2300, L100.0100 #### [facility] [address] [place], [address] CO2 [Moles/Vol] 15.7 mmol/L Low 22.0-29.0 [facility] Comment on above: Performed By: #### L 500.4050, L501.5200, L501.2300, L100.0100 #### [facility] [address] [place], [address] Creatinine [Mass/Vol] 2.22 mg/dL High 0.70-1.20 [facility] Comment on above: Performed By: #### L 500.4050, L501.5200, L501.2300, L100.0100 #### [facility] [address] [place], [address] ECRCL 42.72 ml/min Normal [facility] Comment on above: Performed By: #### L 500.4050, L501.5200, L501.2300, L100.0100 #### [facility] [address] [place], [address] GFR/1.73 sq M.predicted among non-blacks MDRD (S/P/Bld) [Vol rate/Area] 35 mL/min/{1.73_m2} Low >60 [facility] Comment on above: Result Comment: mL/m in/1.73m2 CKD-EPI Creatinine Equation (2020) Performed By: #### L 500.4050, L501.5200, L501.2300, L100.0100 #### [facility] [address] [place], [address] Globulin (S) [Mass/Vol] 4.0 g/dL Normal 2.2-4.2 [facility] Comment on above: Performed By: #### L 500.4050, L501.5200, L501.2300, L100.0100 #### [facility] [address] [place], [address] Glucose [Mass/Vol] 132 mg/dL High 70-99 [facility] Comment on above: Performed By: #### L 500.4050, L501.5200, L501.2300, L100.0100 #### [facility] [address] [place], [address] Potassium [Moles/Vol] 3.2 mmol/L Low 3.3-5.1 [facility] Comment on above: Performed By: #### L 500.4050, L501.5200, L501.2300, L100.0100 #### [facility] [address] [place], [address] Sodium [Moles/Vol] 132 mmol/L Low 133-145 [facility] Comment on above: Performed By: #### L 500.4050, L501.5200, L501.2300, L100.0100 #### [facility] [address] [place], [address] T PROT 7.9 g/dL Normal 5.9-8.4 [facility] Comment on above: Performed By: #### L 500.4050, L501.5200, L501.2300, L100.0100 #### [facility] [address] [place], [address] Urea nitrogen [Mass/Vol] 47 mg/dL High 4-19 [facility] Comment on above: Performed By: #### L 500.4050, L501.5200, L501.2300, L100.0100 #### [facility] [address] [place], [address] Creatinine, Urine (random)on 11-28-2024 UR CREAT 96.10 mg/dL Normal 39-259 [facility] Comment on above: Performed By: #### L 503.7505, L500.2500, L100.0100 #### [facility] [address] [place], [address] Magnesiumon 11-28-2024 Magnesium [Mass/Vol] 1.3 mg/dL Low 1.5-2.2 [facility] Comment on above: Performed By: #### L 500.4050, L501.5200, L501.2300, L100.0100 #### [facility] [address] [place], [address] Phosphoruson 11-28-2024 Phosphate [Mass/Vol] 3.0 mg/dL Normal 2.7-4.5 [facility] Comment on above: Performed By: #### L 500.4050, L501.5200, L501.2300, L100.0100 #### [facility] [address] [place], [address] Urinalysis, Completeon 11-28 CAST,FINE GRAN 10-25 SEEN Normal 0-5 [facility] Comment on above: Order Comment: CLEAN CATCH Performed By: #### L 503.7505, L500.2500, L100.0100 #### [facility] [address] [place], [address] Mucus Ql (Urine sed) RARE Normal [facility] Comment on above: Order Comment: CLEAN CATCH Performed By: #### L 503.7505, L500.2500, L100.0100 #### [facility] [address] [place], [address] BACTERIA RARE Normal None Seen [facility] Comment on above: Order Comment: CLEAN CATCH Performed By: #### L 503.7505, L500.2500, L100.0100 #### [facility] [address] [place], [address] EPI,SQUAMOUS 0-5 SEEN Normal 0-5 [facility] Comment on above: Order Comment: CLEAN CATCH Performed By: #### L 503.7505, L500.2500, L100.0100 #### [facility] [address] [place], [address] RBC 0 SEEN Normal 0-5 [facility] Comment on above: Order Comment: CLEAN CATCH Performed By: #### L 503.7505, L500.2500, L100.0100 #### [facility] [address] [place], [address] WBC 5-10 SEEN Normal 0-5 [facility] Comment on above: Order Comment: CLEAN CATCH Performed By: #### L 503.7505, L500.2500, L100.0100 #### [facility] [address] [place], [address] BILIRUBIN URINE Negative Normal Negative [facility] Comment on above: Order Comment: CLEAN CATCH Performed By: #### L 503.7505, L500.2500, L100.0100 #### [facility] [address] [place], [address] Clarity (U) Clear Normal Clear [facility] Comment on above: Order Comment: CLEAN CATCH Performed By: #### L 503.7505, L500.2500, L100.0100 #### [facility] [address] [place], [address] Color (U) Straw Normal Yellow [facility] Comment on above: Order Comment: CLEAN CATCH Performed By: #### L 503.7505, L500.2500, L100.0100 #### [facility] [address] [place], [address] GLUCOSE, UR Normal Normal Normal [facility] Comment on above: Order Comment: CLEAN CATCH Performed By: #### L 503.7505, L500.2500, L100.0100 #### [facility] [address] [place], [address] KETONE UR Negative Normal Negative [facility] Comment on above: Order Comment: CLEAN CATCH Performed By: #### L 503.7505, L500.2500, L100.0100 #### [facility] [address] [place], [address] LEUK ESTERASE Negative Normal Negative [facility] Comment on above: Order Comment: CLEAN CATCH Performed By: #### L 503.7505, L500.2500, L100.0100 #### [facility] [address] [place], [address] Nitrite Ql (U) Negative Normal Negative [facility] Comment on above: Order Comment: CLEAN CATCH Performed By: #### L 503.7505, L500.2500, L100.0100 #### [facility] [address] [place], [address] OCCULT BLOOD-UR 25 /ul Abnormal Negative [facility] Comment on above: Order Comment: CLEAN CATCH Performed By: #### L 503.7505, L500.2500, L100.0100 #### [facility] [address] [place], [address] pH UR 6.0 Normal 5.0 - 8.0 [facility] Comment on above: Order Comment: CLEAN CATCH Performed By: #### L 503.7505, L500.2500, L100.0100 #### [facility] [address] [place], [address] PROT DIPSTX 30 mg/dl Abnormal Negative [facility] Comment on above: Order Comment: CLEAN CATCH Performed By: #### L 503.7505, L500.2500, L100.0100 #### [facility] [address] [place], [address] SP.GR. DIPSTX 1.015 Normal 1.002-1.03 0 [facility] Comment on above: Order Comment: CLEAN CATCH Performed By: #### L 503.7505, L500.2500, L100.0100 #### [facility] [address] [place], [address] UROBILI Normal Normal Normal [facility] Comment on above: Order Comment: CLEAN CATCH Performed By: #### L 503.7505, L500.2500, L100.0100 #### [facility] [address] [place], [address] Urine Sodiumon 11-28-2024 UR NA < 20 Normal Not Establ. [facility] Comment on above: Performed By: #### L 503.7505, L500.2500, L100.0100 #### [facility] [address] [place], [address] Arterial patency Wrist arter y --pre arterial punctureOrdered By: Sara Quezada on 11-27-2024 Albin Test Positive [facility] Assessment of wrist artery p atency prior to arterial punctureOrdered By: Sara Quezada on 11-27-2024 Arterial patency Wrist artery --pre arterial puncture Positive [facility] Bacteria LM.HPF (Urine sed) [#/Area]Ordered By: Sara Quezada on 11-27-2024 Urine Bacteria RARE /hpf None Seen [facility] Base excess Calc (BldV) [Mol es/Vol]Ordered By: Sara Quezada on 11-27-2024 Blood Gas Base Excess -18 mmol/L Low -2-2 [facility] Basic Metabolic Profile (BMP )on 11-27-2024 Anion gap [Moles/Vol] 15 mmol/L Normal 5-15 [facility] Comment on above: Performed By: #### L 503.7505, L500.2500, L100.0100 #### [facility] [address] [place], [address] BUN/CRE 22.2 RATIO High 10-20 [facility] Comment on above: Performed By: #### L 503.7505, L500.2500, L100.0100 #### [facility] [address] [place], [address] Calcium [Mass/Vol] 8.7 mg/dL Normal 7.6-11.0 [facility] Comment on above: Performed By: #### L 503.7505, L500.2500, L100.0100 #### [facility] [address] [place], [address] Chloride [Moles/Vol] 104 mmol/L Normal 96-108 [facility] Comment on above: Performed By: #### L 503.7505, L500.2500, L100.0100 #### [facility] [address] [place], [address] CO2 [Moles/Vol] 12.9 mmol/L Low 22.0-29.0 [facility] Comment on above: Performed By: #### L 503.7505, L500.2500, L100.0100 #### [facility] [address] [place], [address] Creatinine [Mass/Vol] 2.19 mg/dL High 0.70-1.20 [facility] Comment on above: Performed By: #### L 503.7505, L500.2500, L100.0100 #### [facility] [address] [place], [address] ECRCL 43.31 ml/min Normal [facility] Comment on above: Performed By: #### L 503.7505, L500.2500, L100.0100 #### [facility] [address] [place], [address] GFR/1.73 sq M.predicted among non-blacks MDRD (S/P/Bld) [Vol rate/Area] 35 mL/min/{1.73_m2} Low >60 [facility] Comment on above: Result Comment: mL/m in/1.73m2 CKD-EPI Creatinine Equation (2020) Performed By: #### L 503.7505, L500.2500, L100.0100 #### [facility] [address] [place], [address] Glucose [Mass/Vol] 113 mg/dL High 70-99 [facility] Comment on above: Performed By: #### L 503.7505, L500.2500, L100.0100 #### [facility] [address] [place], [address] Potassium [Moles/Vol] 2.9 mmol/L Low 3.3-5.1 [facility] Comment on above: Performed By: #### L 503.7505, L500.2500, L100.0100 #### [facility] [address] [place], [address] Sodium [Moles/Vol] 132 mmol/L Low 133-145 [facility] Comment on above: Performed By: #### L 503.7505, L500.2500, L100.0100 #### [facility] [address] [place], [address] Urea nitrogen [Mass/Vol] 49 mg/dL High 4-19 [facility] Comment on above: Performed By: #### L 503.7505, L500.2500, L100.0100 #### [facility] [address] [place], [address] Anion gap [Moles/Vol] 14 mmol/L Normal 5-15 [facility] Comment on above: Performed By: #### L 500.2500 ####[facility] [address] [place], [address] BUN/CRE 21.9 RATIO High 10-20 [facility] Comment on above: Performed By: #### L 500.2500 ####[facility] [facility] [address] [place], [address] Calcium [Mass/Vol] 8.5 mg/dL Normal 7.6-11.0 [facility] Comment on above: Performed By: #### L 500.2500 ####[facility] [address] [place], [address] Chloride [Moles/Vol] 105 mmol/L Normal 96-108 [facility] Comment on above: Performed By: #### L 500.2500 ####[facility] [address] [place], [address] CO2 [Moles/Vol] 14.6 mmol/L Low 22.0-29.0 [facility] Comment on above: Performed By: #### L 500.2500 ####[facility] [address] [place], [address] Creatinine [Mass/Vol] 2.27 mg/dL High 0.70-1.20 [facility] Comment on above: Performed By: #### L 500.2500 ####[facility] [address] [place], [address] ECRCL 41.78 ml/min Normal [facility] Comment on above: Performed By: #### L 500.2500 ####[facility] [address] [place], [address] GFR/1.73 sq M.predicted among non-blacks MDRD (S/P/Bld) [Vol rate/Area] 34 mL/min/{1.73_m2} Low >60 [facility] Comment on above: Result Comment: mL/m in/1.73m2 CKD-EPI Creatinine Equation (2020) Performed By: #### L 500.2500 ####[facility] [address] [place], [address] Glucose [Mass/Vol] 92 mg/dL Normal 70-99 [facility] Comment on above: Performed By: #### L 500.2500 ####[facility] [address] [place], [address] Potassium [Moles/Vol] 3.0 mmol/L Low 3.3-5.1 [facility] Comment on above: Performed By: #### L 500.2500 ####[facility] [address] [place], [address] Sodium [Moles/Vol] 134 mmol/L Normal 133-145 [facility] Comment on above: Performed By: #### L 500.2500 ####[facility] [address] [place], [address] Urea nitrogen [Mass/Vol] 50 mg/dL High 4-19 [facility] Comment on above: Performed By: #### L 500.2500 ####[facility] [address] [place], [address] Anion gap [Moles/Vol] 15 mmol/L Normal 5-15 [facility] Comment on above: Performed By: #### L 503.7505, L500.2500, L100.0100 #### [facility] [address] [place], [address] BUN/CRE 20.4 RATIO High 10-20 [facility] Comment on above: Performed By: #### L 503.7505, L500.2500, L100.0100 #### [facility] [address] [place], [address] Calcium [Mass/Vol] 8.9 mg/dL Normal 7.6-11.0 [facility] Comment on above: Performed By: #### L 503.7505, L500.2500, L100.0100 #### [facility] [address] [place], [address] Chloride [Moles/Vol] 104 mmol/L Normal 96-108 [facility] Comment on above: Performed By: #### L 503.7505, L500.2500, L100.0100 #### [facility] [address] [place], [address] CO2 [Moles/Vol] 11.0 mmol/L Low 22.0-29.0 [facility] Comment on above: Performed By: #### L 503.7505, L500.2500, L100.0100 #### [facility] [address] [place], [address] Creatinine [Mass/Vol] 2.47 mg/dL High 0.70-1.20 [facility] Comment on above: Performed By: #### L 503.7505, L500.2500, L100.0100 #### [facility] [address] [place], [address] ECRCL 38.40 ml/min Normal [facility] Comment on above: Performed By: #### L 503.7505, L500.2500, L100.0100 #### [facility] [address] [place], [address] GFR/1.73 sq M.predicted among non-blacks MDRD (S/P/Bld) [Vol rate/Area] 31 mL/min/{1.73_m2} Low >60 [facility] Comment on above: Result Comment: mL/m in/1.73m2 CKD-EPI Creatinine Equation (2020) Performed By: #### L 503.7505, L500.2500, L100.0100 #### [facility] [address] [place], [address] Glucose [Mass/Vol] 98 mg/dL Normal 70-99 [facility] Comment on above: Performed By: #### L 503.7505, L500.2500, L100.0100 #### [facility] [address] [place], [address] Potassium [Moles/Vol] 3.2 mmol/L Low 3.3-5.1 [facility] Comment on above: Performed By: #### L 503.7505, L500.2500, L100.0100 #### [facility] [address] [place], [address] Sodium [Moles/Vol] 130 mmol/L Low 133-145 [facility] Comment on above: Performed By: #### L 503.7505, L500.2500, L100.0100 #### [facility] [address] [place], [address] Urea nitrogen [Mass/Vol] 50 mg/dL High 4-19 [facility] Comment on above: Performed By: #### L 503.7505, L500.2500, L100.0100 #### [facility] [address] [place], [address] Anion gap [Moles/Vol] 14 mmol/L Normal 5-15 [facility] Comment on above: Performed By: #### L 503.7505, L500.2500, L100.0100 #### [facility] [address] [place], [address] BUN/CRE 21.2 RATIO High 10-20 [facility] Comment on above: Performed By: #### L 503.7505, L500.2500, L100.0100 #### [facility] [address] [place], [address] Calcium [Mass/Vol] 9.1 mg/dL Normal 7.6-11.0 [facility] Comment on above: Performed By: #### L 503.7505, L500.2500, L100.0100 #### [facility] [address] [place], [address] Chloride [Moles/Vol] 104 mmol/L Normal 96-108 [facility] Comment on above: Performed By: #### L 503.7505, L500.2500, L100.0100 #### [facility] [address] [place], [address] CO2 [Moles/Vol] 13.0 mmol/L Low 22.0-29.0 [facility] Comment on above: Performed By: #### L 503.7505, L500.2500, L100.0100 #### [facility] [address] [place], [address] Creatinine [Mass/Vol] 2.41 mg/dL High 0.70-1.20 [facility] Comment on above: Performed By: #### L 503.7505, L500.2500, L100.0100 #### [facility] [address] [place], [address] ECRCL 39.35 ml/min Normal [facility] Comment on above: Performed By: #### L 503.7505, L500.2500, L100.0100 #### [facility] [address] [place], [address] GFR/1.73 sq M.predicted among non-blacks MDRD (S/P/Bld) [Vol rate/Area] 32 mL/min/{1.73_m2} Low >60 [facility] Comment on above: Result Comment: mL/m in/1.73m2 CKD-EPI Creatinine Equation (2020) Performed By: #### L 503.7505, L500.2500, L100.0100 #### [facility] [address] [place], [address] Glucose [Mass/Vol] 88 mg/dL Normal 70-99 [facility] Comment on above: Performed By: #### L 503.7505, L500.2500, L100.0100 #### [facility] [address] [place], [address] Potassium [Moles/Vol] 3.3 mmol/L Normal 3.3-5.1 [facility] Comment on above: Performed By: #### L 503.7505, L500.2500, L100.0100 #### [facility] [address] [place], [address] Sodium [Moles/Vol] 131 mmol/L Low 133-145 [facility] Comment on above: Performed By: #### L 503.7505, L500.2500, L100.0100 #### [facility] [address] [place], [address] Urea nitrogen [Mass/Vol] 51 mg/dL High 4-19 [facility] Comment on above: Performed By: #### L 503.7505, L500.2500, L100.0100 #### [facility] [address] [place], [address] Anion gap [Moles/Vol] 15 mmol/L Normal 5-15 [facility] Comment on above: Performed By: #### L 500.2500 ####[facility] [address] [place], [address] BUN/CRE 20.9 RATIO High 10-20 [facility] Comment on above: Performed By: #### L 500.2500 ####[facility] [address] [place], [address] Calcium [Mass/Vol] 9.3 mg/dL Normal 7.6-11.0 [facility] Comment on above: Performed By: #### L 500.2500 ####[facility] [address] [place], [address] Chloride [Moles/Vol] 105 mmol/L Normal 96-108 [facility] Comment on above: Performed By: #### L 500.2500 ####[facility] [address] [place], [address] CO2 [Moles/Vol] 9.0 mmol/L Invalid Interpretation Code 22.0-29.0 [facility] Comment on above: Result Comment: Crit ical Result(s) Called at 1004: by: Jazmin Ivy to sen.??Results read back by same. Performed By: #### L 500.2500 ####[facility] [address] [place], [address] Creatinine [Mass/Vol] 2.42 mg/dL High 0.70-1.20 [facility] Comment on above: Performed By: #### L 500.2500 ####[facility] [address] [place], [address] ECRCL 39.19 ml/min Normal [facility] Comment on above: Performed By: #### L 500.2500 ####[facility] [address] [place], [address] GFR/1.73 sq M.predicted among non-blacks MDRD (S/P/Bld) [Vol rate/Area] 31 mL/min/{1.73_m2} Low >60 [facility] Comment on above: Result Comment: mL/m in/1.73m2 CKD-EPI Creatinine Equation (2020) Performed By: #### L 500.2500 ####[facility] [address] [place], [address] Glucose [Mass/Vol] 106 mg/dL High 70-99 [facility] Comment on above: Performed By: #### L 500.2500 ####[facility] [address] [place], [address] Potassium [Moles/Vol] 3.7 mmol/L Normal 3.3-5.1 [facility] Comment on above: Performed By: #### L 500.2500 ####[facility] [address] [place], [address] Sodium [Moles/Vol] 129 mmol/L Low 133-145 [facility] Comment on above: Performed By: #### L 500.2500 ####[facility] [address] [place], [address] Urea nitrogen [Mass/Vol] 51 mg/dL High 4-19 [facility] Comment on above: Performed By: #### L 500.2500 ####[facility] [address] [place], [address] Bilirubin Test strip Ql (U)O rdered By: Sara Quezada on 11-27-2024 Bilirubin Ql (U) Negative Negative [facility] Blood Gases by CPSon 025 ALBIN TEST Positive Normal [facility] Comment on above: Performed By: #### L 503.7505, L500.2500, L100.0100 #### [facility] [address] [place], [address] Base excess Calc (Bld) [Moles/Vol] -18 mmol/L Low -2 to +2 [facility] Comment on above: Performed By: #### L 503.7505, L500.2500, L100.0100 #### [facility] [address] [place], [address] Blood Gas Type ART Normal [facility] Comment on above: Performed By: #### L 503.7505, L500.2500, L100.0100 #### [facility] [address] [place], [address] CO2 [Moles/Vol] 11 mmol/L Normal [facility] Comment on above: Performed By: #### L 503.7505, L500.2500, L100.0100 #### [facility] [address] [place], [address] HCO3 (Bld) [Moles/Vol] 10.0 mmol/L Low 22-26 [facility] Comment on above: Performed By: #### L 503.7505, L500.2500, L100.0100 #### [facility] [address] [place], [address] Mode Not entered [facility] Comment on above: Performed By: #### L 503.7505, L500.2500, L100.0100 #### [facility] [address] [place], [address] O2 Delivery Dev Room Air [facility] Comment on above: Performed By: #### L 503.7505, L500.2500, L100.0100 #### [facility] [address] [place], [address] pCO2 25.7 mmHg Low 35-45 [facility] Comment on above: Performed By: #### L 503.7505, L500.2500, L100.0100 #### [facility] [address] [place], [address] pH (Bld) 7.20 [pH] Low 7.35-7.45 [facility] Comment on above: Performed By: #### L 503.7505, L500.2500, L100.0100 #### [facility] [address] [place], [address] PO2 91 mmHG Normal 75-100 [facility] Comment on above: Performed By: #### L 503.7505, L500.2500, L100.0100 #### [facility] [address] [place], [address] Read Back By Yes [facility] Comment on above: Performed By: #### L 503.7505, L500.2500, L100.0100 #### [facility] [address] [place], [address] Results To damien [facility] Comment on above: Performed By: #### L 503.7505, L500.2500, L100.0100 #### [facility] [address] [place], [address] SITE R Radial Normal [facility] Comment on above: Performed By: #### L 503.7505, L500.2500, L100.0100 #### [facility] [address] [place], [address] SO2 95 Normal 95-99 [facility] Comment on above: Performed By: #### L 503.7505, L500.2500, L100.0100 #### [facility] [address] [place], [address] Time Given 10:28:10 Normal [facility] Comment on above: Performed By: #### L 503.7505, L500.2500, L100.0100 #### [facility] [address] [place], [address] Blood base excess determinat ionOrdered By: Sara Quezada on 11-27-2024 Base excess Calc (BldV) [Moles/Vol] -18 mmol/L Low -- [facility] Blood bicarbonate measuremen tOrdered By: Sara Quezada on 11-27-2024 Blood Gas Bicarbonate Actual 10.0 mmol/L Low - [facility] HCO3 (Bld) [Moles/Vol] 10.0 mmol/L Low -26 [facility] CBC W/Diff, Automatedon 11-01 Absolute Lymph 0.57 X10 3/uL Low 0.83-4.51 [facility] Comment on above: Performed By: #### L 503.7505, L500.2500, L100.0100 #### [facility] [address] [place], [address] Absolute Neut 7.7 X10 3/uL Normal 2.0-7.7 [facility] Comment on above: Performed By: #### L 503.7505, L500.2500, L100.0100 #### [facility] [address] [place], [address] Basophils/100 WBC (Bld) 0.3 % Normal 0-1 [facility] Comment on above: Performed By: #### L 503.7505, L500.2500, L100.0100 #### [facility] [address] [place], [address] Eosinophils/100 WBC (Bld) 0.8 % Normal 0-5 [facility] Comment on above: Performed By: #### L 503.7505, L500.2500, L100.0100 #### [facility] [address] [place], [address] Erythrocyte distribution width (RBC) [Ratio] 14.8 % High 11.6-14.6 [facility] Comment on above: Performed By: #### L 503.7505, L500.2500, L100.0100 #### [facility] [address] [place], [address] Hematocrit (Bld) [Volume fraction] 43.1 % Normal 40-54 [facility] Comment on above: Performed By: #### L 503.7505, L500.2500, L100.0100 #### [facility] [address] [place], [address] Hemoglobin (Bld) [Mass/Vol] 13.7 g/dL Normal 13.0-16.5 [facility] Comment on above: Performed By: #### L 503.7505, L500.2500, L100.0100 #### [facility] [address] [place], [address] IG% 0.600 Normal 0.0-0.9 [facility] Comment on above: Result Comment: IG% - Immature Granulocytes (promyelocytes, myelocytes and metamyelocytes) > 1% indicates that a LEFT SHIFT is Present. Performed By: #### L 503.7505, L500.2500, L100.0100 #### [facility] [address] [place], [address] Lymphocytes/100 WBC (Bld) 5.8 % Low 19-41 [facility] Comment on above: Performed By: #### L 503.7505, L500.2500, L100.0100 #### [facility] [address] [place], [address] MCH (RBC) [Entitic mass] 30.4 pg Normal 27.0-32.0 [facility] Comment on above: Performed By: #### L 503.7505, L500.2500, L100.0100 #### [facility] [address] [place], [address] MCHC (RBC) [Mass/Vol] 31.8 g/dL Low 32-36 [facility] Comment on above: Performed By: #### L 503.7505, L500.2500, L100.0100 #### [facility] [address] [place], [address] MCV (RBC) [Entitic vol] 95.6 fL High 80-94 [facility] Comment on above: Performed By: #### L 503.7505, L500.2500, L100.0100 #### [facility] [address] [place], [address] Monocytes/100 WBC (Bld) 13.5 % High 0-10 [facility] Comment on above: Performed By: #### L 503.7505, L500.2500, L100.0100 #### [facility] [address] [place], [address] Neutrophils/100 WBC (Bld) 79.0 % High 47-70 [facility] Comment on above: Performed By: #### L 503.7505, L500.2500, L100.0100 #### [facility] [address] [place], [address] Nucleated RBC (Bld) [#/Vol] 0.2 10*3/uL Normal 0-5 [facility] Comment on above: Performed By: #### L 503.7505, L500.2500, L100.0100 #### [facility] [address] [place], [address] Platelet mean volume (Bld) [Entitic vol] 8.5 fL Normal 6.2-12.0 [facility] Comment on above: Performed By: #### L 503.7505, L500.2500, L100.0100 #### [facility] [address] [place], [address] Platelets (Bld) [#/Vol] 381 10*3/uL Normal 150-450 [facility] Comment on above: Performed By: #### L 503.7505, L500.2500, L100.0100 #### [facility] [address] [place], [address] RBC (Bld) [#/Vol] 4.51 10*6/uL Low 4.6-6.2 [facility] Comment on above: Performed By: #### L 503.7505, L500.2500, L100.0100 #### [facility] [address] [place], [address] RDW SD 52.1 fl High 35.1-43.9 [facility] Comment on above: Performed By: #### L 503.7505, L500.2500, L100.0100 #### [facility] [address] [place], [address] WBC (Bld) [#/Vol] 9.8 10*3/uL Normal 4.4-11.0 [facility] Comment on above: Performed By: #### L 503.7505, L500.2500, L100.0100 #### [facility] [address] [place], [place], [address] Creatinine Unsp time (U) [Ma ss/Vol]Ordered By: Sara Quezada on 11-27-2024 Creatinine (U) [Mass/Vol] 96.10 mg/dL 39-259 [facility] Epithelial cells.squamous LM Ql (Urine sed)Ordered By: Sara Quezada on 11-27-2024 Epithelial cells.squamous LM.HPF (Urine sed) [#/Area] 0 /[HPF] 0-5 [facility] Fine Granular Casts LM.LPF ( Urine sed) [#/Area]Ordered By: Sara Quezada on 11-27-2024 Urine Fine Granular Casts 10-25 SEEN /lpf 0-5 [facility] Glucose Ql (U)Ordered By: Chio Quezada on 11-27-2024 Urine Glucose (UA) Normal mg/dl Normal [facility] Ketones Test strip Ql (U)Ord ered By: Sara Quezada on 11-27-2024 Ketones Ql (U) Negative Negative [facility] Kidney and Bladderon 025 Kidney and Bladder [facility] Imaging Services [address] [place], [place] [address] Kidney and Bladder MR#: [id number] Acct: [id number] Name: DOV BURROWS Rep #: [id number] : 1970 M 54 From: Andre Cherry MD PCP: Dr. Harjeet Bernard MD Status: ADM IN Study: Kidney and Bladder Date of Exam: 11/27/24 Exam# [id number] Ordering Dr: Sara Quezada DO PROCEDURE: KIDNEY [...] superior to the left kidney. [facility] CC: Dr. Sara Quezada DO; Dr. Harjeet Bernard MD Horticultural Technical Officer: Signed Normal [facility] Measurement, pHOrdered By: Dmitriy Quezada on 11-27-2024 pH (Unsp spec) 7.20 [pH] Low 7.35-7.45 [facility] Microscopic analysis of urin e for red blood cells (RBC)Ordered By: Sara Quezada on 11-27-2024 Microscopic analysis of urine for red blood cells (RBC) 0 SEEN /hpf 0-5 [facility] Urine RBC 0 SEEN /hpf 0-5 [facility] Mucus LM Ql (Urine sed)Order ed By: Sara Quezada on 11-27-2024 Mucus Ql (Urine sed) RARE /hpf [facility] Nitrite Test strip Ql (U)Ord ered By: Sara Quezada on 11-27-2024 Nitrite Ql (U) Negative Negative [facility] No Panel InformationOrdered By: Sara Quezada on 11-27-2024 Bld Gas Crit Called To/Read Back By Yes [facility] Blood Gas Notified Time 10:28:10 [facility] Blood Gas Notified Whom damien [facility] Blood Gas Sample Site R Radial [facility] Blood Gas Specimen Type ART [facility] Blood Gas Vent Mode Not entered [facility] Oxygen Delivery Device Room Air [facility] Oxygen saturation measuremen tOrdered By: Sara Quezada on 11-27-2024 Blood Gas Oxygen Saturation 95 % 95-99 [facility] Partial pressure of carbon d ioxide measurementOrdered By: Sara Quezada on 11-27-2024 Arterial Blood Partial Pressure CO2 25.7 mmHg Low 35-45 [facility] Partial pressure of oxygen m easurementOrdered By: Sara Quezada on 11-27-2024 Arterial Blood Partial Pressure O2 91 mmHG 75-100 [facility] Protein Test strip Ql (U)Ord ered By: Sara Quezada on 11-27-2024 Protein Ql (U) 30 mg/dl High Negative [facility] Random urine creatinine trna urement (mass/volume)Ordered By: Sara Quzeada on 11-27-2024 Creatinine Unsp time (U) [Mass/Vol] 96.10 mg/dL 39-259 [facility] Sodium (U) [Moles/Vol]Ordere d By: Sara Quezada on 11-27-2024 Urine Random Sodium < 20 mmol/L Not Establ. [facility] Squamous epithelial cells de tection in urine sediment by light microscopyOrdered By: Sara Quezada on 11-27-2024 Epithelial cells.squamous LM Ql (Urine sed) 0-5 SEEN /hpf 0-5 [facility] Total carbon dioxide measure mentOrdered By: Sara Quezada on 11-27-2024 Blood Gas Total CO2 11 mmol/L [facility] CO2 [Moles/Vol] 11 mmol/L [facility] Urine blood detectionOrdered By: Sara Quezada on 11-27-2024 Urine Occult Blood 25 /ul High Negative [facility] Urine clarityOrdered By: Sangita Quezada on 11-27-2024 Clarity (U) Clear Clear [facility] Urine color determinationOrd ered By: Sara Quezada on 11-27-2024 Color (U) Straw Yellow [facility] Urine glucose detectionOrder ed By: Sara Quezada on 11-27-2024 Glucose Ql (U) Normal mg/dl Normal [facility] Urine leukocyte esterase det ection by dipstickOrdered By: Sara Quezada on 11-27-2024 Leukocyte esterase Test strip Ql (U) Negative Negative [facility] Urine pHOrdered By: Sara Quezada on 11-27-2024 pH (U) 6.0 [pH] 5.0 - 8.0 [facility] Urine sediment bacteria coun t by microscopy (number/high power field)Ordered By: Sara Quezada on 11-27-2024 Bacteria LM.HPF (Urine sed) [#/Area] RARE /hpf None Seen [facility] Urine sediment fine granular cast count by microscopy (number/low power field)Ordered By: Sara Quezada on 11-27-2024 Fine Granular Casts LM.LPF (Urine sed) [#/Area] 10-25 SEEN /lpf 0-5 [facility] Urine sodium measurement (mo les/volume)Ordered By: Sara Quezada on 11-27-2024 Sodium (U) [Moles/Vol] mmol/L Not Establ. [facility] Urine specific gravity measu rementOrdered By: Sara Quezada on 11-27-2024 Specific gravity (U) [Rel density] 1.015 1.002-1.03 0 [facility] Urine urobilinogen measureme ntOrdered By: Sara Quezada on 11-27-2024 Urobilinogen Ql (U) Normal mg/dl Normal [facility] Urobilinogen Ql (U)Ordered B y: Sara Quezada on 11-27-2024 Urine Urobilinogen Normal mg/dl Normal [facility] White blood cell countOrdere d By: Sara Quezada on 11-27-2024 Urine WBC 5-10 SEEN /hpf 0-5 [facility] White blood cell count 5-10 SEEN /hpf 0-5 [facility] pH (Unsp spec)Ordered By: Chio Quezada on 11-27-2024 Blood Gas pH 7.20 Low 7.35-7.45 [facility] Basic Metabolic Profile (BMP )on 11-26-2024 Anion gap [Moles/Vol] 17 mmol/L High 5-15 [facility] Comment on above: Performed By: #### L 503.7505, L500.2500, L100.0100 #### [facility] [address] [place], [address] BUN/CRE 19.1 RATIO Normal 10-20 [facility] Comment on above: Performed By: #### L 503.7505, L500.2500, L100.0100 #### [facility] [address] [place], [address] Calcium [Mass/Vol] 9.7 mg/dL Normal 7.6-11.0 [facility] Comment on above: Performed By: #### L 503.7505, L500.2500, L100.0100 #### [facility] [address] [place], [address] Chloride [Moles/Vol] 101 mmol/L Normal 96-108 [facility] Comment on above: Performed By: #### L 503.7505, L500.2500, L100.0100 #### [facility] [address] [place], [address] CO2 [Moles/Vol] 11.5 mmol/L Low 22.0-29.0 [facility] Comment on above: Performed By: #### L 503.7505, L500.2500, L100.0100 #### [facility] [address] [place], [address] Creatinine [Mass/Vol] 3.0 mg/dL High 0.8-1.3 [facility] Comment on above: Performed By: #### L 503.7505, L500.2500, L100.0100 #### [facility] [address] [place], [address] ECRCL 35.79 ml/min Normal [facility] Comment on above: Performed By: #### L 503.7505, L500.2500, L100.0100 #### [facility] [address] [place], [address] GFR/1.73 sq M.predicted among non-blacks MDRD (S/P/Bld) [Vol rate/Area] 24 mL/min/{1.73_m2} Low >60 [facility] Comment on above: Result Comment: mL/m in/1.73m2 CKD-EPI Creatinine Equation (2020) Performed By: #### L 503.7505, L500.2500, L100.0100 #### [facility] [address] [place], [address] Glucose [Mass/Vol] 127 mg/dL High 70-99 [facility] Comment on above: Performed By: #### L 503.7505, L500.2500, L100.0100 #### [facility] [address] [place], [address] Potassium [Moles/Vol] 3.7 mmol/L Normal 3.3-5.1 [facility] Comment on above: Performed By: #### L 503.7505, L500.2500, L100.0100 #### [facility] [address] [place], [address] Sodium [Moles/Vol] 129 mmol/L Low 133-145 [facility] Comment on above: Performed By: #### L 503.7505, L500.2500, L100.0100 #### [facility] [address] [place], [address] Urea nitrogen [Mass/Vol] 58 mg/dL High 4-19 [facility] Comment on above: Performed By: #### L 503.7505, L500.2500, L100.0100 #### [facility] [address] [place], [address] CBC W/Diff, Automatedon 02-2 Absolute Lymph 0.77 X10 3/uL Low 0.83-4.51 [facility] Comment on above: Performed By: #### L 503.7505, L500.2500, L100.0100 #### [facility] [address] [place], [address] Absolute Neut 10.6 X10 3/uL High 2.0-7.7 [facility] Comment on above: Performed By: #### L 503.7505, L500.2500, L100.0100 #### [facility] [address] [place], [address] Basophils/100 WBC (Bld) 0.2 % Normal 0-1 [facility] Comment on above: Performed By: #### L 503.7505, L500.2500, L100.0100 #### [facility] [address] [place], [address] Eosinophils/100 WBC (Bld) 0.6 % Normal 0-5 [facility] Comment on above: Performed By: #### L 503.7505, L500.2500, L100.0100 #### [facility] [address] [place], [address] Erythrocyte distribution width (RBC) [Ratio] 14.6 % Normal 11.6-14.6 [facility] Comment on above: Performed By: #### L 503.7505, L500.2500, L100.0100 #### [facility] [address] [place], [address] Hematocrit (Bld) [Volume fraction] 41.8 % Normal 40-54 [facility] Comment on above: Performed By: #### L 503.7505, L500.2500, L100.0100 #### [facility] [address] [place], [address] Hemoglobin (Bld) [Mass/Vol] 13.7 g/dL Normal 13.0-16.5 [facility] Comment on above: Performed By: #### L 503.7505, L500.2500, L100.0100 #### [facility] [address] [place], [address] IG% 0.600 Normal 0.0-0.9 [facility] Comment on above: Result Comment: IG% - Immature Granulocytes (promyelocytes, myelocytes and metamyelocytes) > 1% indicates that a LEFT SHIFT is Present. Performed By: #### L 503.7505, L500.2500, L100.0100 #### [facility] [address] [place], [address] Lymphocytes/100 WBC (Bld) 6.1 % Low 19-41 [facility] Comment on above: Performed By: #### L 503.7505, L500.2500, L100.0100 #### [facility] [address] [place], [address] MCH (RBC) [Entitic mass] 30.9 pg Normal 27.0-32.0 [facility] Comment on above: Performed By: #### L 503.7505, L500.2500, L100.0100 #### [facility] [address] [place], [address] MCHC (RBC) [Mass/Vol] 32.8 g/dL Normal 32-36 [facility] Comment on above: Performed By: #### L 503.7505, L500.2500, L100.0100 #### [facility] [address] [place], [address] MCV (RBC) [Entitic vol] 94.4 fL High 80-94 [facility] Comment on above: Performed By: #### L 503.7505, L500.2500, L100.0100 #### [facility] [address] [place], [address] Monocytes/100 WBC (Bld) 8.7 % Normal 0-10 [facility] Comment on above: Performed By: #### L 503.7505, L500.2500, L100.0100 #### [facility] [address] [place], [address] Neutrophils/100 WBC (Bld) 83.8 % High 47-70 [facility] Comment on above: Performed By: #### L 503.7505, L500.2500, L100.0100 #### [facility] [address] [place], [address] Nucleated RBC (Bld) [#/Vol] 0 10*3/uL Normal 0-5 [facility] Comment on above: Performed By: #### L 503.7505, L500.2500, L100.0100 #### [facility] [address] [place], [address] Platelet mean volume (Bld) [Entitic vol] 8.6 fL Normal 6.2-12.0 [facility] Comment on above: Performed By: #### L 503.7505, L500.2500, L100.0100 #### [facility] [address] [place], [address] Platelets (Bld) [#/Vol] 410 10*3/uL Normal 150-450 [facility] Comment on above: Performed By: #### L 503.7505, L500.2500, L100.0100 #### [facility] [address] [place], [address] RBC (Bld) [#/Vol] 4.43 10*6/uL Low 4.6-6.2 [facility] Comment on above: Performed By: #### L 503.7505, L500.2500, L100.0100 #### [facility] [address] [place], [address] RDW SD 51.1 fl High 35.1-43.9 [facility] Comment on above: Performed By: #### L 503.7505, L500.2500, L100.0100 #### [facility] [address] [place], [address] WBC (Bld) [#/Vol] 12.7 10*3/uL High 4.4-11.0 [facility] Comment on above: Performed By: #### L 503.7505, L500.2500, L100.0100 #### [facility] [address] [place], [address] Emergency Department Summary on 11-26-2024 Emergency Department Summary [facility] Medical Records Department [address] [place] [address] Emergency Department Summary 11/26/24 MR#: [id number] Acct: [id number] Name: DOV BURROWS Rep #: [id number] : 1970 54 From: Jose Harman MD [...] done in [address] Jama at [facility]. Patient presents because of nausea, vomiting diarrhea that started yesterday. Several episodes of vomiting diarrhea yesterday. He denies hematemesis or coffee-ground emesis. He denies black or maroon watery diarrhea. Patient endorses decreased urine output. He denies fever or chills. He denies upper respiratory tract symptoms. Prior similar symptoms: No Recent Illness/Hospitalization: No PFSH PFSH Medical History Cancer of [...] Not tachyc (more content not included)... Normal [facility] H AND P Exam - [facility] 11-26-2024 H&P Exam - Hospitalist [facility] Medical Records Department [address] [place] [address] H P Exam - Hospitalist 11/26/24 1849 MR#: [id number] Acct: [id number] Name: DOV BURROWS Rep #: [id number] : 1970 54 From: Ibrahima Doan DO PCP: Dr. Harjeet Bernard MD Status:ADM SANNA Location: [place] [address] HPI - General General Date of Service: [...] the hospitalist service was contacted for admission. [facility] Medical History Cancer of appendix Ileostomy present [...] hr 0 (more content not included)... Normal [facility] 09-21-2024 [facility] Telephone ([facility]) ,DOV Zepeda ([id number]) 1970 M Date Time Provider Department 09/21/24 NICOLASA DENISE During your visit today, we recorded the following information about you: Callie Hall 09/21/2024 10:07 AM Signed [phone] Triny Patient calling stating he passed the clamp that was put in his ABD in his stoma bag. Wants to make sure this is ok. Patient not in any pain or any issues, did not know it happened until he emptied his bag. Cleo aPrekh, PEDRO LUIS 09/21/2024 3:48 PM Signed Called Triny back [...] RN - Fully Assessed Reason for Visit: Patient [...] Encounter Status:[facility] by [facility] Nurse Visit ([place]) ,DOV Zepeda ([id number]) 1970 M Date Time Provider Department 06/15/24 [...] patient Pouching System Pouching system removed: 2 1/ ConvaTec NATALY-FIT Natura Durahesive Flat Cut-to-Fit Skin Barrier (#[id number]), drainable pouch Wearing time: 3-4 days Pouching system evaluation: circumferentially undermined, wider from 3-9 o'clock and nearly leaking at 6 o'clock Recommendations: Skin Care: Apply ConvaTec Stomahesive powder to any areas of skin breakdown PRN until healed. Dust off excess. Pouching system Applied: Alpha New Image Convex 2 1/4 Ceraplus Flange with Tape Border #[id number], ceraplus ring, drainable pouch Expected wearing time: 3-4 days Time Increment: 1 hour Haley Baumann RN, BSN, CWOCN For non-emergent [facility] Nursing patient care needs - Please place a consult via Epic under ostomy. WOC Nurse Available Hours: M-F: [phone]; Weekends AND Holidays: [phone] For emergent WO Nursing patient care needs - Page #[phone], during available hours only. 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 Signature: Nicolaas Denise DO Date: 07/07/2024 Time: 1:13 PM [...] [I81] 06/05/2022 (more content not included)... 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 Horticultural Technical Officer: PSCB Transcribe Date/Time: May 15 2024 12:14P Dictated by : GUERO ELIZABETH MD This examination was interpreted and the report reviewed and electronically signed by: GUERO ELIZABETH MD on May 15 2024 12:23PM [facility] DIVISION OF RADIOLOGY * * *Final Report* * * DATE OF EXAM: May 15 2024 10:42AM [facility] 0530 - CT ABD/PEL W IVCON / PROCEDURE REASON: Low grade mucinous neoplasm of appendix * * * * Physician Interpretation * * * * EXAMINATION: CT ABDOMEN AND PELVIS WITH IV CONTRAST CLINICAL HISTORY: Low-grade mucinous neoplasm; ?53 year old male 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 Horticultural Technical Officer: LES Transcribe Date/Time: May 15 2024 12:14P Dictated by : GUERO ELIZABETH MD This examination was interpreted and the report reviewed and electronically signed by: GUERO ELIZABETH MD on May 15 2024 12:23PM [place] CT Chest W contrast Risa IMPRESSION: No convincing CT evidence of thoracic metastasis. Horticultural Technical Officer: LES Transcribe Date/Time: May 15 2024 1:28P Dictated by : LEXIE LEONARD MD This examination was interpreted and the report reviewed and electronically signed by: LEXIE LEONARD MD on May 15 2024 1:42PM [facility] DIVISION OF RADIOLOGY * * *Final Report* * * DATE OF EXAM: May 15 2024 10:42AM [facility] 0539 - CT CHEST W IVCON / [...] No additional findings. DIVISION OF RADIOLOGY Provider, [facility] - 05/15/2024 * * *Final Report* * * DATE OF EXAM: May 15 2024 10:42AM [facility] 0539 - CT CHEST W IVCON / [...] No convincing CT evidence of thoracic metastasis. Horticultural Technical Officer: LES Transcribe Date/Time: May 15 2024 1:28P Dictated by : LEXIE LEONARD MD This examination was interpreted and the report reviewed and electronically signed by: LEXIE LEONARD MD on May 15 2024 1:42PM EST [facility] CT Chest W contrast IVOrdere d By: [facility] Provider on 05-15-2024 [facility] No Panel Informationon 05-15 Radiology Study observation (narrative) [facility] Abdomen/Pelvis WITH Contrast on 05-04-2024 Abdomen/Pelvis WITH Contrast [facility] Imaging Services [address] [place], [place] [address] Abdomen/Pelvis WITH Contrast MR#: [id number] Acct: [id number] Name: DOV BURROWS Rep #: [id number] : 1970 M 54 From: Nicolasa Cueva PCP: Dr. Harjeet Bernard MD Status: REG ER Study: Abdomen/Pelvis WITH Contrast Date of Exam: 02/20 Exam# [id number] Ordering Dr: Ish Avendaño MD ADDENDUM by Dr. Nicolasa Temple MD on 05/04/24 at 0518 :[id number] EXAM: CT ABDOMEN AND PELVIS WITH INTRAVENOUS [...] MD; Dr. Harjeet Bernard MD * Signed :[id number] EXAM: CT ABDOMEN AND PELVIS WITH INTRAVENOUS [...] size and (more content not included)... Normal [facility] CBC W/Diff, Automatedon PATH REV Reviewed Normal [facility] Comment on above: Result Comment: Neut rophilic leukocytosis. Clinical correlation necessary. Ron Mckeon M.D. 05/04/24 AMENDED REPORT 05/04/24 1333 PATH REV previously reported as: January Performed By: #### L 100.0100, L500.4050, L503.6005 ####[facility] [address] [place], [address] CDIFF (PCR)on 05-04-2024 CDIFF A positive C. diffic ile molecular test does not differentiate between an active C. difficile infection and C. difficile colonization. Use clinical judgement and paired toxin/antigen testing to identify true infection and need for treatment. C diff DNA Spec Ql MONICA+probe Reference Range: Negative CepThe Skilleryid GeneXpert: polymerase chain reaction (PCR) 027 027 NAP1-B1 Presumptive Negative *for epidemiolologic???use C. Diff PCR Negative- No toxigenic C. Diff Detected Normal [facility] Comment on above: Performed By: #### L 503.7505, L500.2500, L100.0100 #### [facility] [address] [place], [address] Comprehensive Metabolic Prof ilon 05-04-2024 Albumin [Mass/Vol] 3.9 g/dL Normal 3.2-5.0 [facility] Comment on above: Performed By: #### L 100.0100, L500.4050, L503.6005 ####[facility] [address] [place], [address] Albumin/Globulin [Mass ratio] 0.8 {ratio} Low 0.9-2.4 [facility] Comment on above: Performed By: #### L 100.0100, L500.4050, L503.6005 ####[facility] [address] [place], [address] ALK P 134 U/L High 45-117 [facility] Comment on above: Performed By: #### L 100.0100, L500.4050, L503.6005 ####[facility] [address] [place], [address] ALT [Catalytic activity/Vol] 28 U/L Normal 16-61 [facility] Comment on above: Performed By: #### L 100.0100, L500.4050, L503.6005 ####[facility] [address] [place], [address] AST [Catalytic activity/Vol] 15 U/L Normal 15-37 [facility] Comment on above: Performed By: #### L 100.0100, L500.4050, L503.6005 ####[facility] [address] [place], [address] Bilirubin [Mass/Vol] 0.20 mg/dL Normal 0.20-1.00 [facility] Comment on above: Result Comment: For patients on eltrombopag therapy, use of Dimension [facility] TBIL is not recommended. Performed By: #### L 100.0100, L500.4050, L503.6005 ####[facility] [address] [place], [address] BUN/CRE 23.5 RATIO High 10-20 [facility] Comment on above: Performed By: #### L 100.0100, L500.4050, L503.6005 ####[facility] [address] [place], [address] CA,Total 9.6 mg/dL Normal 8.5-10.1 [facility] Comment on above: Performed By: #### L 100.0100, L500.4050, L503.6005 ####[facility] [address] [place], [address] Chloride [Moles/Vol] 110 mmol/L High 98-107 [facility] Comment on above: Performed By: #### L 100.0100, L500.4050, L503.6005 ####[facility] [address] [place], [address] CO2 [Moles/Vol] 16.0 mmol/L Low 21.0-32.0 [facility] Comment on above: Performed By: #### L 100.0100, L500.4050, L503.6005 ####[facility] [address] [place], [address] Creatinine [Mass/Vol] 1.32 mg/dL High 0.70-1.30 [facility] Comment on above: Result Comment: The validity of the calculated GFR GFRAA in patients over 70 years has not been determined. Clinical correlation is essential. Performed By: #### L 100.0100, L500.4050, L503.6005 ####[facility] [address] [place], [address] ECRCL 83.02 ml/min Normal [facility] Comment on above: Performed By: #### L 100.0100, L500.4050, L503.6005 ####[facility] [address] [place], [address] EST GFR - AA 73 mL/min Normal >60 [facility] Comment on above: Result Comment: Afri can Iranian GFR Calc Performed By: #### L 100.0100, L500.4050, L503.6005 ####[facility] [address] [place], [address] GAP 8 Normal 5-15 [facility] Comment on above: Performed By: #### L 100.0100, L500.4050, L503.6005 ####[facility] [address] [place], [address] GFR/1.73 sq M.predicted among non-blacks MDRD (S/P/Bld) [Vol rate/Area] 61 mL/min/{1.73_m2} Normal >60 [facility] Comment on above: Result Comment: Non- GFR Calc Performed By: #### L 100.0100, L500.4050, L503.6005 ####[facility] [address] [place], [address] Globulin (S) [Mass/Vol] 5.2 g/dL High 2.2-4.2 [facility] Comment on above: Performed By: #### L 100.0100, L500.4050, L503.6005 ####[facility] [address] [place], [address] Glucose [Mass/Vol] 164 mg/dL High 74-106 [facility] Comment on above: Result Comment: Fast ing Glucose result greater than or equal to 126 mg/dL suggests DIABETES MELLITUS per A.D.A. criteria. Performed By: #### L 100.0100, L500.4050, L503.6005 ####[facility] [address] [place], [address] Potassium [Moles/Vol] 3.9 mmol/L Normal 3.5-5.1 [facility] Comment on above: Performed By: #### L 100.0100, L500.4050, L503.6005 ####[facility] [address] [place], [address] Sodium [Moles/Vol] 134 mmol/L Low 136-145 [facility] Comment on above: Performed By: #### L 100.0100, L500.4050, L503.6005 ####[facility] [address] [place], [address] T PROT 9.1 g/dL High 6.4-8.2 [facility] Comment on above: Performed By: #### L 100.0100, L500.4050, L503.6005 ####[facility] [address] [place], [address] Urea nitrogen [Mass/Vol] 31 mg/dL High 7-18 [facility] Comment on above: Performed By: #### L 100.0100, L500.4050, L503.6005 ####[facility] [address] [place], [address] ENTERIC PATHOGEN PANEL STOOL on 05-04-2024 EP [...] VIBRIO Not Detected Yersinia Not Detected Normal [facility] Comment on above: Performed By: #### L 503.2395, L500.2500, L100.0100 #### [facility] [address] [place], [address] Emergency Department Summary on 05-04-2024 Emergency Department Summary [facility] Medical Records Department [address] [place] [address] Emergency Department Summary 05/04/24 MR#: [id number] Acct: [id number] Name: DOV BURROWS Rep #: [id number] : 1970 54 From: Ish Avendaño MD PCP: Dr. Harjeet Bernard MD Status:REG ER Location: ED HPI HPI - GI [...] recent antibiotics for anything. No recent hospitalizations. [facility] Medical History (Updated 05/04/24 @ 05:57 by [...] MDM MD (more content not included)... Normal [facility] Lactic Acidon 05-04-2024 Lactate [Moles/Vol] 1.1 mmol/L Normal 0.4-1.9 [facility] Comment on above: Order Comment: Y Performed By: #### L 100.0100, L500.4050, L503.6005 ####[facility] [address] [place], [address] No Panel Informationon 05-17 [facility] XR ABSCESS DRAIN INJECTIONon 09-14-2022 [facility] Absolute lymphocyte counton 07-25-2022 Lymphocytes Auto (Unsp spec) [#/Vol] 1.61 10*3/uL 0.83-4.51 [facility] Automated blood hematocrit ( percentage)on 07-25-2022 Hematocrit (Bld) [Volume fraction] 31.0 % 40-54 [facility] Basophil percentageon 2021 Basophils/100 WBC (Bld) 0.6 % 0-1 [facility] Bilirubin [Mass/Vol] 0.20 mg/dL 0.20-1.00 [facility] Comment on above: For patients on eltr ombopag therapy, use of [facility] TBIL is not recommended. Eosinophils/100 WBC (Bld) 4.6 % 0-5 [facility] Neutrophils (Bld) [#/Vol] 4.8 10*3/uL 2.0-7.7 [facility] Neutrophils/100 WBC (Bld) 59.7 % 47-70 [facility] Protein [Mass/Vol] 8.1 g/dL 6.4-8.2 [facility] WBC (Bld) [#/Vol] 8.1 10*3/uL 4.4-11.0 [facility] Blood erythrocytes count (nu mber/volume)on 07-25-2022 RBC (Bld) [#/Vol] 3.51 10*6/uL 4.6-6.2 [facility] Blood hemoglobin measurement (mass/volume)on 07-25-2022 Hemoglobin (Bld) [Mass/Vol] 9.5 g/dL 13.0-16.5 [facility] Blood lymphocytes/100 leukoc yteson 07-25-2022 Lymphocytes/100 WBC (Bld) 19.8 % 19-41 [facility] Blood monocytes/100 leukocyt eson 07-25-2022 Monocytes/100 WBC (Bld) 15.1 % 0-10 [facility] Blood platelet mean volumeon 07-25-2022 Platelet mean volume (Bld) [Entitic vol] 8.7 fL 6.2-12.0 [facility] CBC W Auto Differential pane l (Bld)on 07-25-2022 Abs Neut (ANC) 4.8 K/uL 2 - 7 K/uL [facility] CK [Catalytic activity/Vol]o n 07-25-2022 CK 174 39 - 308 [facility] Comprehensive metabolic 2000 panelon 07-25-2022 AST [Catalytic activity/Vol] 22 U/L 15 - 37 [facility] Determination of erythrocyte mean corpuscular volume (MCV)on 07-25-2022 MCV (RBC) [Entitic vol] 88.3 fL 80-94 [facility] Direct bilirubinon 2 Bilirubin.direct [Mass/Vol] 0.18 mg/dL 0.00-0.30 [facility] Laboratory - Chemistry and C hemistry - challengeon 07-25-2022 ALP [Catalytic activity/Vol] 145 U/L 45-117 [facility] ALT [Catalytic activity/Vol] 31 U/L 16-61 [facility] CK [Catalytic activity/Vol] 174 U/L 39-308 [facility] Globulin (S) [Mass/Vol] 5.5 g/dL 2.2-4.2 [facility] - Hematology and Cell countson 07-25-2022 Erythrocyte distribution width (RBC) [Entitic vol] 54.6 fL 35.1-43.9 [facility] Erythrocyte distribution width (RBC) [Ratio] 17.0 % 11.6-14.6 [facility] Immature granulocytes/100 WBC (Bld) 0.200 % 0.0-0.9 [facility] Comment on above: IG% - Immature Granu locytes (promyelocytes, myelocytes and metamyelocytes) > 1% indicates that a LEFT SHIFT is Present. MCH (RBC) [Entitic mass] 27.1 pg 27.0-32.0 [facility] Nucleated RBC/100 WBC (Bld) [Ratio] 0 % 0-5 [facility] MCHC Auto (RBC) [Mass/Vol]on 07-25-2022 MCHC (RBC) [Mass/Vol] 30.6 g/dL 32-36 [facility] No Panel Informationon 07-25 Estimated GFR (MDRD) Amer 156 mL/min >60 [facility] Comment on above: GFR Calc Estimated GFR (MDRD) Non-Af Amer 129 mL/min >60 [facility] Comment on above: Non- GFR Calc Platelets bldon 07-25-2022 Platelets (Bld) [#/Vol] 721 10*3/uL 150-450 [facility] Serum or plasma albumin tran urement (mass/volume)on 07-25-2022 Albumin [Mass/Vol] 2.6 g/dL 3.2-5.0 [facility] Serum or plasma creatinine m easurement (mass/volume)on 07-25-2022 Creatinine [Mass/Vol] 0.69 mg/dL 0.70-1.30 [facility] Comment on above: The validity of the calculated GFR & GFRAA in patients over 70 years has not been determined. Clinical correlation is essential. Thin prep Papanicolaou smear with manual screeningon 07-25-2022 Thin prep Papanicolaou smear with manual screening 22 U/L 15-37 [facility] ERCPon 07-19-2022 [facility] Absolute lymphocyte counton 07-16-2022 Lymphocytes Auto (Unsp spec) [#/Vol] 1.45 10*3/uL 0.83-4.51 [facility] Work Phone: Automated blood hematocrit ( percentage)on 07-16-2022 Hematocrit (Bld) [Volume fraction] 31.7 % 40-54 [facility] BILIRUBIN TOTAL BLDon 2021 Bilirubin [Mass/Vol] 0.3 mg/dL 0.2 - 1 [facility] Basophil percentageon 2021 Basophils/100 WBC (Bld) 0.7 % 0-1 [facility] Work Phone: [phone] Bilirubin [Mass/Vol] 0.30 mg/dL 0.20-1.00 [facility] Work Phone: Comment on above: For patients on eltr ombopag therapy, use of [facility] TBIL is not recommended. Eosinophils/100 WBC (Bld) 2.5 % 0-5 [facility] Neutrophils (Bld) [#/Vol] 5.3 10*3/uL 2.0-7.7 [facility] Work Phone: [phone] Neutrophils/100 WBC (Bld) 63.6 % 47-70 [facility] Protein [Mass/Vol] 8.2 g/dL 6.4-8.2 [facility] Work Phone: WBC (Bld) [#/Vol] 8.4 10*3/uL 4.4-11.0 [facility] Blood erythrocytes count (nu mber/volume)on 07-16-2022 RBC (Bld) [#/Vol] 3.57 10*6/uL 4.6-6.2 [facility] Work Phone: [phone] Blood hemoglobin measurement (mass/volume)on 07-16-2022 Hemoglobin (Bld) [Mass/Vol] 9.4 g/dL 13.0-16.5 [facility] Blood lymphocytes/100 leukoc yteson 07-16-2022 Lymphocytes/100 WBC (Bld) 17.3 % 19-41 [facility] Work Phone: [phone] Blood monocytes/100 leukocyt eson 10-17-2022 Monocytes/100 WBC (Bld) 15.5 % 0-10 [facility] Work Phone: [phone] Blood platelet adequacy dete ction by light microscopyon 07-16-2022 Platelets LM Ql (Bld) MKD INC ADEQ [facility] Work Phone: [phone] Blood platelet mean volumeon 07-16-2022 Platelet mean volume (Bld) [Entitic vol] 8.7 fL 6.2-12.0 [facility] Work Phone: [phone] CBC W Auto Differential pane l (Bld)on 07-16-2022 Abs Neut (ANC) 5.3 K/uL 2 - 7.7 K/uL [facility] CK [Catalytic activity/Vol]o n 07-16-2022 CK 61 39 - 308 [facility] Comprehensive metabolic 2000 panelon 07-16-2022 AST [Catalytic activity/Vol] 61 U/L Abnormal 15 - 37 [facility] Determination of erythrocyte mean corpuscular volume (MCV)on 07-16-2022 MCV (RBC) [Entitic vol] 88.8 fL 80-94 [facility] Work Phone: Direct bilirubinon 2 Bilirubin.direct [Mass/Vol] 0.24 mg/dL 0.00-0.30 [facility] Work Phone: [phone] Laboratory - Chemistry and C hemistry - challengeon 07-16-2022 ALP [Catalytic activity/Vol] 156 U/L 45-117 [facility] ALT [Catalytic activity/Vol] 33 U/L 16-61 [facility] CK [Catalytic activity/Vol] 61 U/L 39-308 [facility] Work Phone: [phone] Globulin (S) [Mass/Vol] 5.8 g/dL 2.2-4.2 [facility] Work Phone: [phone] Laboratory - Hematology and Cell countson 07-16-2022 Erythrocyte distribution width (RBC) [Entitic vol] 54.6 fL 35.1-43.9 [facility] Work Phone: Erythrocyte distribution width (RBC) [Ratio] 17.0 % 11.6-14.6 [facility] Work Phone: Immature granulocytes/100 WBC (Bld) 0.400 % 0.0-0.9 [facility] Work Phone: Comment on above: IG% - Immature Granu locytes (promyelocytes, myelocytes and metamyelocytes) > 1% indicates that a LEFT SHIFT is Present. MCH (RBC) [Entitic mass] 26.3 pg 27.0-32.0 [facility] Work Phone: Nucleated RBC/100 WBC (Bld) [Ratio] 0 % 0-5 [facility] Work Phone: MCHC Auto (RBC) [Mass/Vol]on 07-16-2022 MCHC (RBC) [Mass/Vol] 29.7 g/dL 32-36 [facility] Work Phone: No Panel Informationon 07-16 Estimated GFR (MDRD) Amer 129 mL/min >60 [facility] Work Phone: Comment on above: GFR Calc Estimated GFR (MDRD) Non-Af Amer 107 mL/min >60 [facility] Work Phone: Comment on above: Non- GFR Calc Platelets bldon 07-16-2022 Platelets (Bld) [#/Vol] 825 10*3/uL 150-450 [facility] Comment on above: RESULTS CALLED TO RN 07/16/22 Kenneth Raza.REPORT READ BACK BY SAME.Previous reported result: 825 K/az2Yyotkf by: LEON on 07/16/22:1325 AMENDED REPORT 07/16/22 1325 PLT previously reported as: 825 *H K/mm3 RBC morphologyon 07-16-2022 RBC morphology finding Nom (Bld) NORM C+C NORMAL NORM C&C [facility] Work Phone: Review by pathologiston 06-30 Pathologist review Marco (Unsp spec) [Interp] Reviewed [facility] Work Phone: Comment on above: Previous reported re sult: May mick Edited by: RGOOD on 07/17/22:1354Normocytic anemia.Thrombocytosis.Clinical correlation necessary.Ron Mckeon M.D. 07/17/22 AMENDED REPORT 07/17/22 1354 PATH REV previously reported as: Lashae barton Serum or plasma albumin tran urement (mass/volume)on 07-16-2022 Albumin [Mass/Vol] 2.4 g/dL 3.2-5.0 [facility] Work Phone: Serum or plasma creatinine m easurement (mass/volume)on 07-16-2022 Creatinine [Mass/Vol] 0.81 mg/dL 0.70-1.30 [facility] Comment on above: The validity of the calculated GFR & GFRAA in patients over 70 years has not been determined. Clinical correlation is essential. Thin prep Papanicolaou smear with manual screeningon 07-16-2022 Thin prep Papanicolaou smear with manual screening 15 U/L 15-37 [facility] Work Phone: No Panel Informationon 07-10 [facility] CBC W Auto Differential pane l (Bld)on 07-02-2022 Basophils (Bld) [#/Vol] 10*3/uL Normal <0.11 [facility] Comment on above: Order Comment: Speci men Type: BLOOD SPECIMEN Ordering Facility: [facility] Address: [address] [place] [address] Performed By: #### 5 7021-8 #### [facility] CLIA [id number] [address] [place] [address] [place] Basophils/100 WBC (Bld) 0.3 % Normal [facility] Comment on above: Order Comment: Speci men Type: BLOOD SPECIMEN Ordering Facility: [facility] Address: [address] [place] [address] Performed By: #### 5 7021-8 #### [facility] CLIA [id number] [address] [place] [address] [place] Differential cell count method Nom (Bld) Auto Normal [facility] Comment on above: Order Comment: Speci men Type: BLOOD SPECIMEN Ordering Facility: [facility] Address: [address] [place] [address] Performed By: #### 5 7021-8 #### [facility] CLIA [id number] [address] [place] [address] [place] Eosinophils (Bld) [#/Vol] 0.07 10*3/uL Normal <0.46 [facility] Comment on above: Order Comment: Speci men Type: BLOOD SPECIMEN Ordering Facility: [facility] Address: [address] [place] [address] Performed By: #### 5 7021-8 #### [facility] CLIA [id number] [address] [place] [address] [place] Eosinophils/100 WBC (Bld) 1.1 % Normal [facility] Comment on above: Order Comment: Speci men Type: BLOOD SPECIMEN Ordering Facility: [facility] Address: [address] [place] [address] Performed By: #### 5 7021-8 #### [facility] CLIA [id number] [address] [place] Erythrocyte distribution width (RBC) [Ratio] 17.6 % High 11.5-15.0 [facility] Comment on above: Order Comment: Speci men Type: BLOOD SPECIMEN Ordering Facility: [facility] Address: [address] [place] [address] Performed By: #### 5 7021-8 #### [facility] CLIA [id number] [address] [place] Hematocrit (Bld) [Volume fraction] 28.2 % Low 39.0-51.0 [facility] Comment on above: Order Comment: Speci men Type: BLOOD SPECIMEN Ordering Facility: [facility] Address: [address] [place] [address] Performed By: #### 5 7021-8 #### [facility] CLIA [id number] [address] [place] Hemoglobin (Bld) [Mass/Vol] 8.2 g/dL Low 13.0-17.0 [facility] Comment on above: Order Comment: Speci men Type: BLOOD SPECIMEN Ordering Facility: [facility] Address: [address] [place] [address] Performed By: #### 5 7021-8 #### [facility] CLIA [id number] [address] IMMATURE GRAN % 0.3 % Normal [facility] Comment on above: Order Comment: Speci men Type: BLOOD SPECIMEN Ordering Facility: [facility] Address: [address] [place] [address] Performed By: #### 5 7021-8 #### [facility] CLIA [id number] [address] IMMATURE GRAN ABS <0.03 Normal <0.10 [facility] Comment on above: Order Comment: Speci men Type: BLOOD SPECIMEN Ordering Facility: [facility] Address: [address] [place] [address] Performed By: #### 5 7021-8 #### [facility] CLIA [id number] [address] [place] Lymphocytes (Bld) [#/Vol] 1.21 10*3/uL Normal 1.00-4.00 [facility] Comment on above: Order Comment: Speci men Type: BLOOD SPECIMEN Ordering Facility: [facility] Address: [address] [place] [address] Performed By: #### 5 7021-8 #### [facility] CLIA [id number] [address] Lymphocytes/100 WBC (Bld) 18.2 % Normal [facility] Comment on above: Order Comment: Speci men Type: BLOOD SPECIMEN Ordering Facility: [facility] Address: [address] [place] [address] Performed By: #### 5 7021-8 #### [facility] CLIA [id number] [address] [place] MCH (RBC) [Entitic mass] 27.1 pg Normal 26.0-34.0 [facility] Comment on above: Order Comment: Speci men Type: BLOOD SPECIMEN Ordering Facility: [facility] Address: [address] [place] [address] Performed By: #### 5 7021-8 #### [facility] CLIA [id number] 1000 [place] [address] [place] MCHC (RBC) [Mass/Vol] 29.1 g/dL Low 30.5-36.0 [facility] Comment on above: Order Comment: Speci men Type: BLOOD SPECIMEN Ordering Facility: [facility] Address: [address] [place] [address] Performed By: #### 5 7021-8 #### [facility] CLIA [id number] 1000 [place] [address] [place] MCV (RBC) [Entitic vol] 93.1 fL Normal 80.0-100.0 [facility] Comment on above: Order Comment: Speci men Type: BLOOD SPECIMEN Ordering Facility: [facility] Address: [address] [place] [address] Performed By: #### 5 7021-8 #### [facility] CLIA [id number] 1000 [place] [address] [place] Monocytes (Bld) [#/Vol] 1.48 10*3/uL High <0.87 [facility] Comment on above: Order Comment: Speci men Type: BLOOD SPECIMEN Ordering Facility: [facility] Address: [address] [place] [address] Performed By: #### 5 7021-8 #### [facility] CLIA [id number] [address] [place] Monocytes/100 WBC (Bld) 22.2 % Normal [facility] Comment on above: Order Comment: Speci men Type: BLOOD SPECIMEN Ordering Facility: [facility] Address: [address] [place] [address] Performed By: #### 5 7021-8 #### [facility] CLIA [id number] 1000 [place] [address] [place] Neutrophils (Bld) [#/Vol] 3.86 10*3/uL Normal 1.45-7.50 [facility] Comment on above: Order Comment: Speci men Type: BLOOD SPECIMEN Ordering Facility: [facility] Address: [address] [place] [address] Performed By: #### 5 7021-8 #### [facility] CLIA [id number] 1000 [place] [address] [place] Neutrophils/100 WBC (Bld) 57.9 % Normal [facility] Comment on above: Order Comment: Speci men Type: BLOOD SPECIMEN Ordering Facility: [facility] Address: [address] [place] [address] Performed By: #### 5 7021-8 #### [facility] CLIA [id number] 1000 [place] [address] [place] Nucleated RBC (Bld) [#/Vol] 10*3/uL Normal <0.01 [facility] Comment on above: Order Comment: Speci men Type: BLOOD SPECIMEN Ordering Facility: [facility] Address: [address] [place] [address] Performed By: #### 5 7021-8 #### [facility] CLIA [id number] [address] [place] Nucleated RBC/100 WBC (Bld) [Ratio] 0.0 /100 WBC Normal [facility] Comment on above: Order Comment: Speci men Type: BLOOD SPECIMEN Ordering Facility: [facility] Address: [address] [place] [address] Performed By: #### 5 7021-8 #### [facility] CLIA [id number] [address] [place] Platelet mean volume (Bld) [Entitic vol] 8.7 fL Low 9.0-12.7 [facility] Comment on above: Order Comment: Speci men Type: BLOOD SPECIMEN Ordering Facility: [facility] Address: [address] [place] [address] Performed By: #### 5 7021-8 #### [facility] CLIA [id number] 1000 [place] [address] [place] Platelets (Bld) [#/Vol] 1020 10*3/uL High 150-400 [facility] Comment on above: Order Comment: Speci men Type: BLOOD SPECIMEN Ordering Facility: [facility] Address: [address] [place] [address] Result Comment: No c lot detected Performed By: #### 5 7021-8 #### [facility] CLIA [id number] 1000 [place] [address] [place] RBC (Bld) [#/Vol] 3.03 10*6/uL Low 4.20-6.00 [facility] Comment on above: Order Comment: Speci men Type: BLOOD SPECIMEN Ordering Facility: [facility] Address: [address] [place] [address] Performed By: #### 5 7021-8 #### [facility] CLIA [id number] 1000 [place] [address] [place] WBC (Bld) [#/Vol] 6.66 10*3/uL Normal 3.70-11.00 [facility] Comment on above: Order Comment: Speci men Type: BLOOD SPECIMEN Ordering Facility: [facility] Address: [address] [place] [address] Performed By: #### 5 7021-8 #### [facility] CLIA [id number] [address] [place] [address] [place] CK SerPl-cCncon 07-02-2022 CK [Catalytic activity/Vol] 24 U/L Low 51-298 [facility] Comment on above: Order Comment: Speci men Type: BLOOD SPECIMEN Ordering Facility: [facility] Address: [address] [place] [address] Performed By: #### 2 157-6, 92772-9, CRET1 #### [facility] CLIA [id number] [address] [place] [address] [place] CREATININE BLDon 07-02-2022 Creatinine [Mass/Vol] 0.58 mg/dL Low 0.73-1.22 [facility] Comment on above: Order Comment: Speci men Type: BLOOD SPECIMEN Ordering Facility: [facility] Address: [address] [place] [address] Performed By: #### 2 157-6, 95345-6, CRET1 #### [facility] CLIA [id number] [address] [place] ESTIMATED GLOMERULAR FILTRATION RATE 119 mL/min/1.73m??? Normal >=60 [facility] Comment on above: Order Comment: Speci men Type: BLOOD SPECIMEN Ordering Facility: [facility] Address: [address] [place] [address] Result Comment: Marlen mated Glomerular Filtration Rate [...] actual GFR. Performed By: #### 2 157-6, 15219-1, CRET1 #### [facility] CLIA [id number] [address] [place] [address] [place] Hepatic function 2000 panelo n 07-02-2022 Albumin [Mass/Vol] 3.0 g/dL Low 3.9-4.9 [facility] Comment on above: Order Comment: Rose melina Type: BLOOD SPECIMEN Ordering Facility: [facility] Address: [address] [place] [address] Performed By: #### 2 157-6, 32138-9, CRET1 #### [facility] CLIA [id number] [address] [place] [address] [place] ALP [Catalytic activity/Vol] 211 U/L High 38-113 [facility] Comment on above: Order Comment: Rafaeli men Type: BLOOD SPECIMEN Ordering Facility: [facility] Address: [address] [place] [address] Performed By: #### 2 157-6, 05820-5, CRET1 #### [facility] CLIA [id number] [address] [place] [address] [place] ALT [Catalytic activity/Vol] 12 U/L Normal 10-54 [facility] Comment on above: Order Comment: Speci men Type: BLOOD SPECIMEN Ordering Facility: [facility] Address: [address] [place] [address] Performed By: #### 2 157-6, 61644-6, CRET1 #### [facility] CLIA [id number] [address] [place] [address] [place] AST [Catalytic activity/Vol] 15 U/L Normal 14-40 [facility] Comment on above: Order Comment: Speci men Type: BLOOD SPECIMEN Ordering Facility: [facility] Address: [facility] [place] [address] Performed By: #### 2 157-6, 79668-6, CRET1 #### [facility] CLIA [id number] [address] Bilirubin [Mass/Vol] 0.4 mg/dL Normal 0.2-1.3 [facility] Comment on above: Order Comment: Speci men Type: BLOOD SPECIMEN Ordering Facility: [facility] Address: [address] [place], [place] [address] [address] Performed By: #### 2 157-6, 84190-0, CRET1 #### [facility] CLIA [id number] [address] Bilirubin.conjugated [Mass/Vol] mg/dL Normal <0.2 [facility] Comment on above: Order Comment: Speci men Type: BLOOD SPECIMEN Ordering Facility: [facility] Address: [address] [place], [place] [address] [address] Performed By: #### 2 157-6, 49004-9, CRET1 #### [facility] CLIA [id number] [address] Protein [Mass/Vol] 7.8 g/dL Normal 6.3-8.0 [facility] Comment on above: Order Comment: Speci men Type: BLOOD SPECIMEN Ordering Facility: [facility] Address: [address] [place], [place] [address] [address] Performed By: #### 2 157-6, 17883-5, CRET1 #### [facility] CLIA [id number] [address] OF [facility] CBC W Auto Differential pane l (Bld)on 05-11-2022 Abs Immature Gran <0.10 k/uL [facility] Basophils (Bld) [#/Vol] <0.11 k/uL [facility] Basophils/100 WBC (Bld) 0.4 % [facility] Differential cell count method Nom (Bld) Auto [facility] Eosinophils (Bld) [#/Vol] 0.08 10*3/uL <0.46 k/uL [facility] Eosinophils/100 WBC (Bld) 1.4 % [facility] Erythrocyte distribution width (RBC) [Ratio] 16.3 % High 11.5 - 15.0 % [facility] Hematocrit (Bld) [Volume fraction] 33.8 % Low 39.0 - 51.0 % [facility] Hemoglobin (Bld) [Mass/Vol] 9.7 g/dL Low 13.0 - 17.0 g/dL [facility] Immature Gran % 0.4 % [facility] Lymphocytes (Bld) [#/Vol] 0.92 10*3/uL Low 1.00 - 4.00 k/uL [facility] Lymphocytes/100 WBC (Bld) 16.5 % [facility] MCH (RBC) [Entitic mass] 21.7 pg Low 26.0 - 34.0 pg [facility] MCHC (RBC) [Mass/Vol] 28.7 g/dL Low 30.5 - 36.0 g/dL [facility] MCV (RBC) [Entitic vol] 75.4 fL Low 80.0 - 100.0 fL [facility] Monocytes (Bld) [#/Vol] 0.66 10*3/uL <0.87 k/uL [facility] Monocytes/100 WBC (Bld) 11.8 % [facility] Neutrophils (Bld) [#/Vol] 3.88 10*3/uL 1.45 - 7.50 k/uL [facility] Neutrophils/100 WBC (Bld) 69.5 % [facility] Nucleated RBC (Bld) [#/Vol] <0.01 k/uL [facility] Nucleated RBC/100 WBC (Bld) [Ratio] 0.0 /100 WBC [facility] Platelet mean volume (Bld) [Entitic vol] 8.5 fL Low 9.0 - 12.7 fL [facility] Platelets (Bld) [#/Vol] 384 10*3/uL 150 - 400 k/uL [facility] RBC (Bld) [#/Vol] 4.48 10*6/uL 4.20 - 6.00 m/uL [facility] WBC (Bld) [#/Vol] 5.58 10*3/uL 3.70 - 11.00 k/uL [facility] CNPFaviola 04-30-2022 CNPN Telephone (MEPRAD) FIRST,DOV Zepeda ([id number]) 1970 M Date Time Provider Department 04/30/22 [...] RN - Fully Assessed Reason for Visit: Manager Configuration - Other [3602] Prescriptions as of 04/30/2022 [...] humidifier and lifetime supplies. AMBROSE G47.33 - multivitamin tablet Take 1 tablet [...] Encounter Status:Closed by PRISCILA CLARKE on 04/30/22 [facility] COLONOSCOPY DIAGNOSTICon [facility] EGD DIAGNOSTICon 04-26-[address] [facility] [address] BIOPSY ABD/RETROPERIT MAS Son 2022 CT BIOPSY ABD/RETROPERIT MASS * * *Final Report* * * DATE OF EXAM: 2022 12:07PM [facility] [place] - [place] BIOPSY ABD/RETROPERIT MASS / [...] using light manual compression. Next, a 5 Afghan Yueh catheter was advanced into the low [...] all 4 quadrants. No drainable fluid visualized. Horticultural Technical Officer: PSCB Transcribe Date/Time: 2022 2:05P Dictated by : AGUS KOHLER DO This examination was interpreted and the report reviewed and electronically signed by: AGUS KOHLER DO on 2022 2:23PM EST [id number] Normal [facility] HISTORY PHYSICALon 2 HISTORY PHYSICAL HNO ID: [id number] Author: Agus Kohler DO, DO Service: Radiology [...] Zepeda First DATE: 2022 TIME: 10:47 AM [facility] SURGICAL PATHOLOGYon 022 CASE REPORT [facility] Comment on above: Order Comment: Speci men Type: TISSUE SPECIMEN Ordering Facility: [facility] Address: [address] [place] [id number] Result Comment: Surg ica Pathology Report Case: [id number] Authorizing Provider: Agus Kohler DO, DO Collected: 2022 11:15 AM Ordering Location: [facility] Received: 2022 12:02 PM Pathologist: Zara Nesbitt MD Specimen: PERITONEUM BIOPSY Performed By: #### S #### [facility] CLIA [id number] [address] [place] [address] LABORATORY CLIA [id number] [address] CLINICAL HISTORY Peritoneal carcinomatosis Normal [facility] Comment on above: Order Comment: Speci men Type: TISSUE SPECIMEN Ordering Facility: [facility] Address: [address] [place] [address] Performed By: #### S #### [facility] CLIA [id number] [address] [place] [address] LABORATORY CLIA [id number] [address] [place] [address] DIAGNOSIS COMMENT Normal [facility] Comment on above: Order Comment: Speci men Type: TISSUE SPECIMEN Ordering Facility: [facility] Address: [address] [place] [address] Result Comment: The biopsy consists predominantly of [...] been determined by the performing laboratory within [facility]???s [facility] [place] [facility], [facility], [facility] or [facility]) in a manner consistent with CLIA requirements. One or more of these tests have not been cleared or approved by the FDA. [facility] is regulated under CLIA as qualified to perform high-complexity testing. These tests are used for clinical purposes. They should not be regarded as investigational or for research. Positive and negative controls stain appropriately. Performed By: #### S #### [facility] CLIA [id number] [address] [place], [place] [address]NA [facility] CLIA [id number] [address] FINAL DIAGNOSIS [facility] Comment on above: Order Comment: Speci men Type: TISSUE SPECIMEN Ordering Facility: [facility] Address: [address] [place] [address] Result Comment: Radha toneum, biopsy: - Focal acellular mucin; see comment. Performed By: #### S #### [facility] CLIA [id number] [address] [place], [place] [address] CLIA [id number] [address] FINAL PERFORMING LAB [facility] Comment on above: Order Comment: Speci men Type: TISSUE SPECIMEN Ordering Facility: [facility] Address: [address] [place] [address] Result Comment: Diag nostic interpretation performed at [facility], [address] [place] [address] CLIA# [id number] Manager Van: Dung Graff M.D. Performed By: #### S #### [facility] CLIA [id number] [address] [place], [place] [address] CLIA [id number] [address] GROSS DESCRIPTION [facility] Comment on above: Order Comment: Speci men Type: TISSUE SPECIMEN Ordering Facility: [facility] Address: [address] [place] [address] Result Comment: A. P ERITONEUM BIOPSY. Received in formalin are multiple sarmiento-red, soft feathery segments of tissue aggregating to 1.0 x 0.1 x 0.1 cm. Totally submitted in one cassette. JTS 2022 4:02 PM Gross examination performed at [facility], [address] [place] [address] Performed By: #### S #### [facility] CLIA [id number] [address] [facility] [place] [id number] [facility] CLIA [id number] [address] [place] [address] [facility] US ASCITES SURVEYon 04-24-20 22 ASCITES SURVEY * * *Final Report* * * DATE OF EXAM: 2022 11:41AM [facility] 1016 - ASCITES SURVEY / PROCEDURE REASON: [...] using light manual compression. Next, a 5 Afghan Multistateh catheter was advanced into the low attenuating [...] all 4 quadrants. No drainable fluid visualized. Horticultural Technical Officer: PSCB Transcribe Date/Time: 2022 2:05P Dictated by : AGUS KOHLER DO This examination was interpreted and the report reviewed and electronically signed by: AGUS KOHLER DO on 2022 2:23PM EST [id number] [facility] CT ABD/PEL W IVCONon 04-20-2 022 [facility] Vital Signs Date Time Vital Sign Value Performing Clinician Rober flaherty 05-19-2025 11:49-0400 Body temperature 97.81 [degF] Treatment Wstr Work Phone: [facility] 05-19-2025 11:49-0400 Diastolic blood pressure 76 mm[Hg] Treatment Wstr Work Phone: [facility] 05-19-2025 11:49-0400 Heart rate 56 /min Treatment Wstr Work Phone: [facility] 05-19-2025 11:49-0400 SaO2% (BldA) [Mass fraction] 94 % Treatment Wstr Work Phone: [facility] 05-19-2025 11:49-0400 Systolic blood pressure 124 mm[Hg] Treatment Wstr Work Phone: [facility] 04-19-2025 10:45-0400 Body mass index (BMI) [Ratio] 30.25 kg/m2 Harjeet Bernard MD Work Phone: [facility] 04-19-2025 10:45-0400 Body temperature 97 [degF] Harjeet Bernard MD Work Phone: [facility] 04-19-2025 10:45-0400 Body weight 104 kg Harjeet Bernard MD Work Phone: [facility] 04-19-2025 10:45-0400 Diastolic blood pressure 60 mm[Hg] Harjeet Bernard MD Work Phone: [facility] 04-19-2025 10:45-0400 Heart rate 76 /min Harjeet Bernard MD Work Phone: [facility] 04-19-2025 10:45-0400 Respiratory rate 16 /min Harjeet Bernard MD Work Phone: [facility] 04-19-2025 10:45-0400 Systolic blood pressure 100 mm[Hg] Harjeet Bernard MD Work Phone: [facility] 04-13-2025 12:39-0400 Body height 185.4 cm Nelly Stuart MD Work Phone: [facility] 04-13-2025 12:39-0400 Body mass index (BMI) [Ratio] 28.74 kg/m2 Nelly Stuart MD Work Phone: [facility] 04-13-2025 12:39-0400 Body temperature 99.5 [degF] Nelly Stuart MD Work Phone: [facility] 04-13-2025 12:39-0400 Body weight 98.8 kg Nelly Stuart MD Work Phone: [facility] 04-13-2025 12:39-0400 Diastolic blood pressure 59 mm[Hg] Nelly Stuart MD Work Phone: [facility] 04-13-2025 12:39-0400 Heart rate 77 /min Nelly Stuart MD Work Phone: [facility] 04-13-2025 12:39-0400 SaO2% (BldA) [Mass fraction] 97 % Nelly Stuart MD Work Phone: [facility] 04-13-2025 12:39-0400 Systolic blood pressure 94 mm[Hg] Nelly Stuart MD Work Phone: [facility] 04-12-2025 22:37-0400 Body temperature 97 [degF] Dr. Harjeet Bernard MD Work Phone: [facility] 04-12-2025 22:37-0400 Diastolic blood pressure 84 mm[Hg] Dr. Harjeet Bernard MD Work Phone: 2(212)[phone] [place] [address] 04-12-2025 22:37-0400 Heart rate 73 /min Dr. Harjeet Bernard MD Work Phone: [facility] 04-12-2025 22:37-0400 Respiratory rate 18 /min Dr. Harjeet Bernard MD Work Phone: [facility] 04-12-2025 22:37-0400 SaO2% (BldA) [Mass fraction] 100 % Dr. Harjeet Bernard MD Work Phone: [facility] 04-12-2025 22:37-0400 Systolic blood pressure 127 mm[Hg] Dr. Harjeet Bernard MD Work Phone: [facility] 04-12-2025 17:42-0400 Body height 185.[address] Harjeet Bernard MD Work Phone: 8(503)[phone] [place] [address] 04-12-2025 17:42-0400 Body mass index (BMI) [Ratio] 28.1 kg/m2 Dr. Harjeet Bernard MD Work Phone: [facility] 04-12-2025 17:42-0400 Body weight 96.[address] Harjeet Bernard MD Work Phone: [facility] 03-29-2025 13:13-0400 Body mass index (BMI) [Ratio] 24.67 kg/m2 Kellen Penny PATIENT FLOW COORDINATOR.INFANTRY [employer] CREWMEMBER Work Phone: [facility] 03-29-2025 13:13-0400 Body temperature 97.59 [degF] Kellen Penny PATIENT FLOW COORDINATOR.INFANTRY [employer]BER Work Phone: [facility] 03-29-2025 13:13-0400 Body weight 84.8 kg Kellen Penny PATIENT FLOW COORDINATOR.INFANTRY [employer]BER Work Phone: [facility] 03-29-2025 13:13-0400 Diastolic blood pressure 72 mm[Hg] Kellen Penny PATIENT FLOW COORDINATOR.INFANTRY [employer]BER Work Phone: [facility] 03-29-2025 13:13-0400 Heart rate 88 /min Kellen Penny PATIENT FLOW COORDINATOR.INFANTRY [employer]BER Work Phone: [facility] 03-29-2025 13:13-0400 Respiratory rate 18 /min Kellen Penny PATIENT FLOW COORDINATOR.INFANTRY [employer]BER Work Phone: [facility] 03-29-2025 13:13-0400 Systolic blood pressure 108 mm[Hg] Kellen Penny PATIENT FLOW COORDINATOR.INFANTRY [employer]BER Work Phone: [facility] 03-28-2025 15:26-0400 Body temperature 98.3 [degF] Dr. Harjeet Bernard MD Work Phone: [facility] 03-28-2025 15:26-0400 Diastolic blood pressure 70 mm[Hg] Dr. Harjeet Bernard MD Work Phone: [facility] 03-28-2025 15:26-0400 Heart rate 84 /min Dr. Harjeet Bernard MD Work Phone: 8(576)797-684708 [place] [address] 03-28-2025 15:26-0400 Respiratory rate 16 /min Dr. Harjeet Bernard MD Work Phone: 4(539)882-800309 [place] [address] 03-28-2025 15:26-0400 SaO2% (BldA) [Mass fraction] 98 % Dr. Harjeet Bernard MD Work Phone: 5(614)618-412309 [place] [address] 03-28-2025 15:26-0400 Systolic blood pressure 106 mm[Hg] Dr. Harjeet Bernard MD Work Phone: 6(638)023-423709 [place] [address] 03-28-2025 12:59-0400 Body height 185.[address] Harjeet Bernard MD Work Phone: 6(170)963-997009 [place] [address] 03-28-2025 12:59-0400 Body mass index (BMI) [Ratio] 26.2 kg/m2 Dr. Harjeet Bernard MD Work Phone: 0(387)[phone] [place] [address] 03-28-2025 12:59-0400 Body weight 90.[address] Harjeet Bernard MD Work Phone: 3(479)858-808609 [place] [address] 01-15-2025 23:23-0400 Body temperature 98 [degF] Dr. Harjeet Bernard MD Work Phone: 8(677)769-895309 [place] [address] 01-15-2025 23:23-0400 Diastolic blood pressure 70 mm[Hg] Dr. Harjeet Bernard MD Work Phone: 1(563)366-893609 [place] [address] 01-15-2025 23:23-0400 Heart rate 75 /min Dr. Harjeet Bernard MD Work Phone: 3(423)386-376109 [place] [address] 01-15-2025 23:23-0400 Respiratory rate 18 /min Dr. Harjeet Bernard MD Work Phone: 6(210)[phone] [place] [address] 01-15-2025 23:23-0400 SaO2% (BldA) [Mass fraction] 97 % Dr. Harjeet Bernard MD Work Phone: 4(473)945-128409 [place] [address] 01-15-2025 23:23-0400 Systolic blood pressure 107 mm[Hg] Dr. Harjeet Bernard MD Work Phone: [facility] 01-15-2025 19:26-0400 Body height 185.[address] Harjeet Bernard MD Work Phone: [facility] 01-15-2025 19:26-0400 Body mass index (BMI) [Ratio] 26 kg/m2 Dr. Harjeet Bernard MD Work Phone: [facility] 01-15-2025 19:26-0400 Body weight 89.[address] Harjeet Bernard MD Work Phone: [facility] 12-21-2024 15:17-0400 Body mass index (BMI) [Ratio] 27.02 kg/m2 Harjeet Bernard MD Work Phone: [facility] 12-21-2024 15:17-0400 Body weight 92.9 kg Harjeet Bernard MD Work Phone: [facility] 12-21-2024 15:17-0400 Diastolic blood pressure 75 mm[Hg] Harjeet Bernard MD Work Phone: [facility] 12-21-2024 15:17-0400 Heart rate 103 /min Harjeet Bernard MD Work Phone: [facility] 12-21-2024 15:17-0400 Respiratory rate 16 /min Harjeet Bernard MD Work Phone: [facility] 12-21-2024 15:17-0400 SaO2% (BldA) [Mass fraction] 97 % Harjeet Bernard MD Work Phone: [facility] 12-21-2024 15:17-0400 Systolic blood pressure 104 mm[Hg] Harjeet Bernard MD Work Phone: [facility] 12-16-2024 13:06-0400 Body temperature 98.2 [degF] Dr. Harjeet Bernard MD Work Phone: [facility] 12-16-2024 13:06-0400 Diastolic blood pressure 77 mm[Hg] Dr. Harjeet Bernard MD Work Phone: 9(096)270-517209 [place] [address] 12-16-2024 13:06-0400 Heart rate 80 /min Dr. Harjeet Bernard MD Work Phone: 9(567)512-574209 [place] [address] 12-16-2024 13:06-0400 Respiratory rate 18 /min Dr. Harjeet Bernard MD Work Phone: 3(098)668-614609 [place] [address] 12-16-2024 13:06-0400 SaO2% (BldA) [Mass fraction] 100 % Dr. Harjeet Bernard MD Work Phone: 2(965)[phone] [place] [address] 12-16-2024 13:06-0400 Systolic blood pressure 104 mm[Hg] Dr. Harjeet Bernard MD Work Phone: 5(648)021-821109 [place] [address] 12-15-2024 11:22-0400 Body height 185.[address] Harjeet Bernard MD Work Phone: 1(395)830-244009 [place] [address] 12-15-2024 11:22-0400 Body mass index (BMI) [Ratio] 26.9 kg/m2 Dr. Harjeet Bernard MD Work Phone: 9(246)618-823109 [place] [address] 12-15-2024 11:22-0400 Body weight 92.[address] Harjeet Bernard MD Work Phone: 3(202)514-521609 [place] [address] 12-15-2024 10:11-0400 Diastolic blood pressure 76 mm[Hg] Dr. Harjeet Bernard MD Work Phone: 7(961)[phone] [place] [address] 12-15-2024 10:11-0400 Heart rate 89 /min Dr. Harjeet Bernard MD Work Phone: 4(826)119-728909 [place] [address] 12-15-2024 10:11-0400 Respiratory rate 14 /min Dr. Harjeet Bernard MD Work Phone: 6(877)460-338409 [place] [address] 12-15-2024 10:11-0400 SaO2% (BldA) [Mass fraction] 98 % Dr. Harjeet Bernard MD Work Phone: 7(790)966-121309 [place] [address] 12-15-2024 10:11-0400 Systolic blood pressure 126 mm[Hg] Dr. Harjeet Bernard MD Work Phone: [facility] 12-15-2024 09:48-0400 Body temperature 98.7 [degF] Dr. Harjeet Bernard MD Work Phone: [facility] 12-15-2024 08:11-0400 Body height 185.[address] Harjeet Bernard MD Work Phone: [facility] 12-15-2024 08:11-0400 Body mass index (BMI) [Ratio] 26.9 kg/m2 Dr. Harjeet Bernard MD Work Phone: [facility] 12-15-2024 08:11-0400 Body weight 92.[address] Harjeet Bernard MD Work Phone: [facility] 12-04-2024 10:53-0500 Body mass index (BMI) [Ratio] 27.63 kg/m2 Julissa Ugarte PATIENT FLOW COORDINATOR.LITERACY EDUCATION PROFESSOR Work Phone: [facility] 12-04-2024 10:53-0500 Body weight 95 kg Julissa Ugarte PATIENT FLOW COORDINATOR.LITERACY EDUCATION PROFESSOR Work Phone: [facility] 12-04-2024 10:53-0500 Diastolic blood pressure 71 mm[Hg] Julissa Ugarte PATIENT FLOW COORDINATOR.LITERACY EDUCATION PROFESSOR Work Phone: [facility] 12-04-2024 10:53-0500 Heart rate 73 /min Julissa Ugarte PATIENT FLOW COORDINATOR.LITERACY EDUCATION PROFESSOR Work Phone: [facility] 12-04-2024 10:53-0500 Respiratory rate 16 /min Julissa Ugarte PATIENT FLOW COORDINATOR.LITERACY EDUCATION PROFESSOR Work Phone: [facility] 12-04-2024 10:53-0500 Systolic blood pressure 106 mm[Hg] Julissa Ugarte PATIENT FLOW COORDINATOR.LITERACY EDUCATION PROFESSOR Work Phone: [facility] 11-29-2024 15:09-0500 Body temperature 98.9 [degF] Dr. Harjeet Bernard MD Work Phone: [facility] 11-29-2024 15:09-0500 Diastolic blood pressure 75 mm[Hg] Dr. Harjeet Bernard MD Work Phone: [facility] 11-29-2024 15:09-0500 Heart rate 84 /min Dr. Harjeet Bernard MD Work Phone: [facility] 11-29-2024 15:09-0500 Respiratory rate 16 /min Dr. Harjeet Bernard MD Work Phone: [facility] 11-29-2024 15:09-0500 SaO2% (BldA) [Mass fraction] 95 % Dr. Harjeet Bernard MD Work Phone: [facility] 11-29-2024 15:09-0500 Systolic blood pressure 115 mm[Hg] Dr. Harjeet Bernard MD Work Phone: [facility] 11-27-2024 14:28-0500 Body weight 91.[address] Harjeet Bernard MD Work Phone: [facility] 11-26-2024 19:49-0500 Body mass index (BMI) [Ratio] 26.7 kg/m2 Dr. Harjeet Bernard MD Work Phone: [facility] 06-15-2024 10:55-0400 Body height 185.4 cm Nicolasa Denise DO Work Phone: [facility] 06-15-2024 10:55-0400 Body mass index (BMI) [Ratio] 29.29 kg/m2 Nicolasa Denise DO Work Phone: [facility] 06-15-2024 10:55-0400 Body weight 100.7 kg Nicolasa Denise DO Work Phone: [facility] 05-15-2024 11:11-0400 Body mass index (BMI) [Ratio] 30.71 kg/m2 Harjeet Bernard MD Work Phone: [facility] 05-15-2024 11:11-0400 Body temperature 97.11 [degF] Harjeet Bernard MD Work Phone: [facility] 05-15-2024 11:11-0400 Body weight 105.6 kg Harjeet Bernard MD Work Phone: [facility] 05-15-2024 11:11-0400 Diastolic blood pressure 62 mm[Hg] Harjeet Bernard MD Work Phone: [facility] 05-15-2024 11:11-0400 Heart rate 71 /min Harjeet Bernard MD Work Phone: [facility] 05-15-2024 11:11-0400 Respiratory rate 16 /min Harjeet Bernard MD Work Phone: [facility] 05-15-2024 11:11-0400 SaO2% (BldA) [Mass fraction] 99 % Harjeet Bernard MD Work Phone: [facility] 05-15-2024 11:11-0400 Systolic blood pressure 102 mm[Hg] Harjeet Bernard MD Work Phone: [facility] 04-05-2023 09:20-0400 Body temperature 98.6 [degF] Harjeet Bernard MD Work Phone: [facility] 04-05-2023 09:20-0400 Body weight 108.41 kg Harjeet Bernard MD Work Phone: [facility] 04-05-2023 09:20-0400 Diastolic blood pressure 84 mm[Hg] Harjeet Bernard MD Work Phone: [facility] 04-05-2023 09:20-0400 Heart rate 75 /min Harjeet Bernard MD Work Phone: [facility] 04-05-2023 09:20-0400 Respiratory rate 18 /min Harjeet Bernard MD Work Phone: [facility] 04-05-2023 09:20-0400 SaO2% (BldA) [Mass fraction] 96 % Harjeet Bernard MD Work Phone: [facility] 04-05-2023 09:20-0400 Systolic blood pressure 118 mm[Hg] Harjeet Bernard MD Work Phone: [facility] 01-09-2023 15:48-0400 Body weight 101.61 kg Beckie Eaton DO Work Phone: [facility] 01-09-2023 15:48-0400 Diastolic blood pressure 71 mm[Hg] Beckie Eaton DO Work Phone: [facility] 01-09-2023 15:48-0400 Heart rate 71 /min Beckie Eaton DO Work Phone: [facility] 01-09-2023 15:48-0400 SaO2% (BldA) [Mass fraction] 97 % Beckie Eaton DO Work Phone: [facility] 01-09-2023 15:48-0400 Systolic blood pressure 115 mm[Hg] Beckie Eaton DO Work Phone: [facility] 11-05-2022 10:19-0500 Body height 185.4 cm Nicolasa Denise DO Work Phone: [facility] 11-05-2022 10:19-0500 Body weight 97.98 kg Nicolasa Howie Work Phone: [facility] 10-15-2022 16:50-0500 Body temperature 97.5 [degF] Harjeet Bernard MD Work Phone: [facility] 10-15-2022 16:50-0500 Body weight 95.71 kg Harjeet Bernard MD Work Phone: [facility] 10-15-2022 16:50-0500 Diastolic blood pressure 82 mm[Hg] Harjeet Bernard MD Work Phone: [facility] 10-15-2022 16:50-0500 Heart rate 81 /min Harjeet Bernard MD Work Phone: [facility] 10-15-2022 16:50-0500 Respiratory rate 18 /min Harjeet Bernard MD Work Phone: [facility] 10-15-2022 16:50-0500 SaO2% (BldA) [Mass fraction] 97 % Harjeet Bernard MD Work Phone: [facility] 10-15-2022 16:50-0500 Systolic blood pressure 120 mm[Hg] Harjeet Bernard MD Work Phone: [facility] 09-28-2022 10:16-0500 Body height 185.4 cm Monroe Maloney MD Work Phone: [facility] 09-28-2022 10:16-0500 Body weight 95.35 kg Monroe Maloney MD Work Phone: [facility] 09-28-2022 10:16-0500 Diastolic blood pressure 62 mm[Hg] Monroe Maloney MD Work Phone: [facility] 09-28-2022 10:16-0500 Heart rate 81 /min Monroe Maloney MD Work Phone: [facility] 09-28-2022 10:16-0500 Systolic blood pressure 107 mm[Hg] Monroe Maloney MD Work Phone: [facility] 09-14-2022 09:13-0500 Body height 185.4 cm Nicolasa Denise DO Work Phone: [facility] 09-14-2022 09:13-0500 Body weight 93.26 kg Nicolasa Denise DO Work Phone: [facility] 08-27-2022 09:31-0500 Body height 185.4 cm Nicolasa Denise DO Work Phone: [facility] 08-27-2022 09:31-0500 Body weight 91.17 kg Nicolasa Denise DO Work Phone: [facility] 07-30-2022 09:58-0400 Body height 185.4 cm Nicolasa Denise DO Work Phone: [facility] 07-30-2022 09:58-0400 Body weight 80.74 kg Nicolasa Denise DO Work Phone: [facility] 07-19-2022 14:00-0400 Heart rate 82 /min Hannah Mcnair MD Work Phone: [facility] 07-19-2022 14:00-0400 Respiratory rate 16 /min Hannah Mcnair MD Work Phone: [facility] 07-19-2022 14:00-0400 SaO2% (BldA) [Mass fraction] 97 % Hannah Mcnair MD Work Phone: [facility] 07-19-2022 13:50-0400 Diastolic blood pressure 66 mm[Hg] Hannah Mcnair MD Work Phone: [facility] 07-19-2022 13:50-0400 Systolic blood pressure 103 mm[Hg] Hannah Mcnair MD Work Phone: [facility] 07-19-2022 13:27-0400 Body temperature 97.2 [degF] Hannah Mcnair MD Work Phone: [facility] 07-19-2022 12:28-0400 Body height 185.4 cm Hannah Mcnair MD Work Phone: [facility] 07-19-2022 12:28-0400 Body weight 78.47 kg Hannah Mcnair MD Work Phone: [facility] 07-09-2022 08:06-0400 Body height 185.4 cm Nicolasa Denise DO Work Phone: [facility] 07-09-2022 08:06-0400 Body weight 78.74 kg Nicolasa Denise DO Work Phone: [facility] 05-11-2022 09:06-0400 Body height 185.4 cm Pac 7 Work Phone: [facility] 05-11-2022 09:06-0400 Body temperature 97 [degF] Pac 7 Work Phone: [facility] 05-11-2022 09:06-0400 Body weight 104.78 kg Pacc 7 Work Phone: [facility] 05-11-2022 09:06-0400 Diastolic blood pressure 76 mm[Hg] Pac 7 Work Phone: [facility] 05-11-2022 09:06-0400 Heart rate 80 /min Pac 7 Work Phone: [facility] 05-11-2022 09:06-0400 SaO2% (BldA) [Mass fraction] 99 % Pac 7 Work Phone: [facility] 05-11-2022 09:06-0400 Systolic blood pressure 134 mm[Hg] [facility] 7 Work Phone: [facility] 05-04-2022 09:46-0400 Body height 185.4 cm Nicolasa Denise DO Work Phone: [facility] 05-04-2022 09:46-0400 Body temperature 98.1 [degF] Nicolasa Denise DO Work Phone: [facility] 05-04-2022 09:46-0400 Body weight 103.78 kg Nicolasa Denise DO Work Phone: [facility] 05-04-2022 09:46-0400 Diastolic blood pressure 79 mm[Hg] Nicolasa Guilloryente DO Work Phone: [facility] 05-04-2022 09:46-0400 Heart rate 86 /min Nicolasa Denise DO Work Phone: [facility] 05-04-2022 09:46-0400 Respiratory rate 20 /min Nicolasa Guilloryente DO Work Phone: [facility] 05-04-2022 09:46-0400 SaO2% (BldA) [Mass fraction] 100 % Nicolasa Denise DO Work Phone: [facility] 05-04-2022 09:46-0400 Systolic blood pressure 138 mm[Hg] Nicolasa Denise DO Work Phone: [facility] 05-03-2022 10:19-0400 Body temperature 98.2 [degF] Andre Masci DO Work Phone: [facility] 05-03-2022 10:19-0400 Body weight 103.87 kg Andre Nievesi DO Work Phone: [facility] 05-03-2022 10:19-0400 Diastolic blood pressure 76 mm[Hg] Andre Nievesi DO Work Phone: [facility] 05-03-2022 10:19-0400 Heart rate 80 /min Andre Nievesi DO Work Phone: [facility] 05-03-2022 10:19-0400 SaO2% (BldA) [Mass fraction] 98 % Andre Nievesi DO Work Phone: [facility] 05-03-2022 10:19-0400 Systolic blood pressure 119 mm[Hg] Andre Nievesi DO Work Phone: [facility] 05-02-2022 14:53-0400 Body height 185.4 cm Priscila Clarke MD Work Phone: [facility] 05-02-2022 14:53-0400 Body temperature 98.4 [degF] Priscila Clarke MD Work Phone: [facility] 05-02-2022 14:53-0400 Body weight 102.97 kg Priscila Clarke MD Work Phone: [facility] 05-02-2022 14:53-0400 Diastolic blood pressure 62 mm[Hg] Priscila Clarke MD Work Phone: [facility] 05-02-2022 14:53-0400 Heart rate 99 /min Priscila Clarke MD Work Phone: [facility] 05-02-2022 14:53-0400 SaO2% (BldA) [Mass fraction] 96 % Priscila Clarke MD Work Phone: [facility] 05-02-2022 14:53-0400 Systolic blood pressure 110 mm[Hg] Priscila Clarke MD Work Phone: [facility] 04-26-2022 09:40-0400 Diastolic blood pressure 82 mm[Hg] Priscila Clarke MD Work Phone: [facility] 04-26-2022 09:40-0400 Heart rate 80 /min Priscila Clarke MD Work Phone: [facility] 04-26-2022 09:40-0400 Respiratory rate 16 /min Priscila Clarke MD Work Phone: [facility] 04-26-2022 09:40-0400 SaO2% (BldA) [Mass fraction] 98 % Priscila Clarke MD Work Phone: [facility] 04-26-2022 09:40-0400 Systolic blood pressure 122 mm[Hg] Priscila Clarke MD Work Phone: [facility] 04-26-2022 07:50-0400 Body temperature 97.2 [degF] Priscila Clarke MD Work Phone: [facility] 03-02-2022 07:24-0400 Body weight 105.23 kg Julissa Ugarte PATIENT FLOW COORDINATOR.LITERACY EDUCATION PROFESSOR Work Phone: [facility] 03-02-2022 07:24-0400 Diastolic blood pressure 70 mm[Hg] Julissa Ugarte PATIENT FLOW COORDINATOR.LITERACY EDUCATION PROFESSOR Work Phone: [facility] 03-02-2022 07:24-0400 Heart rate 76 /min Julissa Ugarte PATIENT FLOW COORDINATOR.LITERACY EDUCATION PROFESSOR Work Phone: [facility] 03-02-2022 07:24-0400 Respiratory rate 16 /min Julissa Ugarte PATIENT FLOW COORDINATOR.LITERACY EDUCATION PROFESSOR Work Phone: [facility] 03-02-2022 07:24-0400 Systolic blood pressure 120 mm[Hg] Julissa Ugarte PATIENT FLOW COORDINATOR.LITERACY EDUCATION PROFESSOR Work Phone: [facility] Encounters Encounter Date Encounter Type Care Provider Facility Start: 05-19-2025 End: 05-19-2025 Telephone encounter Andre Parnell DO Work Phone: Hematology/Oncology Comment on above: Appointment Start: 05-19-2025 End: 05-19-2025 ambulatory Treatment Rm 18 Jas [facility] Work Phone: Hematology/Oncology Comment on above: Recurrent dehydratio n (Primary Dx); High output ileostomy (HCC) Start: 05-17-2025 End: 05-17-2025 ambulatory HARJEET D TALAMPAS Facility:[facility] Start: 05-14-2025 End: 05-14-2025 ambulatory HARJEET D TALAMPAS Facility:[facility] Start: 05-07-2025 End: 05-07-2025 ambulatory HARJEET D TALAMPAS Facility:[facility] Start: 05-05-2025 End: 05-05-2025 ambulatory HARJEET D TALAMPAS Facility:[facility] Start: 04-30-2025 End: 04-30-2025 ambulatory HARJEET D TALAMPAS Facility:[facility] Start: 04-27-2025 End: 04-28-2025 Telephone encounter Harjeet Bernard MD Work Phone: Internal [facility] [place] Comment on above: Patient Question Start: 04-19-2025 End: 04-19-2025 Office outpatient visit 25 minutes Harjeet Bernard MD Work Phone: [facility] [place] Comment on above: Cellulitis of left l ower extremity (Primary Dx); Bilateral lower extremity edema; LPRD (laryngopharyngeal reflux disease); Stage 3b chronic kidney disease (HCC); Acute renal insufficiency; Elevated brain natriuretic peptide (BNP) level; Superficial phlebitis and thrombophlebitis of left lower extremity Start: 04-19-2025 End: 04-19-2025 ambulatory HARJEET D TALAMPAS Facility:[facility] Start: 04-16-2025 End: 04-16-2025 ambulatory HARJEET D TALAMPAS Facility:[facility] Start: 04-15-2025 ambulatory HARJEET D TALAMPAS Facilit y:[facility] Start: 04-15-2025 End: 04-16-2025 Subsequent hospital visit by physician [facility] Work Phone: Radiology Comment on above: Acute renal failure, unspecified acute renal failure type [N17.9] Refill Request Start: 04-13-2025 End: 05-10-2025 Telephone encounter Nelly Xiao MD Work Phone: Kidney Medicine Comment on above: Care Coordination Start: 04-13-2025 End: 04-13-2025 Patient encounter procedure Nelly Xiao MD Work Phone: Kidney Medicine Comment on above: Acute renal failure, unspecified acute renal failure type (Primary Dx); CKD (chronic kidney disease) stage 4, GFR 15-29 ml/min (HCC); Hypokalemia; Hyponatremia; Metabolic acidosis; Ileostomy present (HCC); Anemia in stage 4 chronic kidney disease (HCC); Chronic kidney disease-mineral and bone disorder; Bilateral leg edema Start: 04-13-2025 End: 04-13-2025 ambulatory HARJEET D TALAMPAS Facility:[facility] Start: 04-12-2025 End: 04-12-2025 Emergency department patient visit Dr. Harjeet Bernard MD Work Phone: -Emergency Department Work Phone: Start: 04-12-2025 End: 04-12-2025 ambulatory HARJEET D TALAMPAS Facility:[facility] Start: 04-05-2025 End: 04-05-2025 ambulatory HARJEET D TALAMPAS Facility:[facility] Start: 03-29-2025 End: 03-30-2025 Follow-up encounter Kellen Salguero APRN.CNP Work Phone: Internal Medicine [place] Start: 03-29-2025 End: 03-29-2025 Office outpatient visit 25 minutes Kellen Salguero APRN.CNP Work Phone: Internal Medicine [place] Comment on above: Hyponatremia (Primar y Dx); [place] (acute kidney injury); High output ileostomy (HCC); Dehydration; Stage 3b chronic kidney disease (HCC) Start: 03-29-2025 End: 03-29-2025 ambulatory HARJEET D TALAMPAS Facility:[facility] Start: 03-28-2025 End: 03-28-2025 Emergency department patient visit Dr. Harjeet Bernard MD Work Phone: -Emergency Department Work Phone: Start: 03-22-2025 End: 03-22-2025 ambulatory HARJEET D TALAMPAS Facility:[facility] Start: 03-08-2025 End: 03-08-2025 [facility] Start: 02-23-2025 End: 02-23-2025 [facility] Start: 02-08-2025 End: 02-08-2025 ambulatory HARJEET D [facility] Facility:[facility] Start: 02-03-2025 End: 02-03-2025 Telephone encounter Nicolasa Denise DO Work Phone: Colorectal Surgery Comment on above: Patient Update Start: 02-01-2025 End: 02-01-2025 ambulatory [facility] Start: 01-27-2025 End: 01-27-2025 Telephone encounter Nicolasa Irene Phone: Colorectal Surgery Start: 01-25-2025 End: 01-25-2025 ambulatory HARJEET D [facility] Facility:[facility] Start: 01-18-2025 End: 01-18-2025 ambulatory HARJEET D [facility] Facility:[facility] Start: 01-18-2025 End: 01-18-2025 Telephone encounter Nicolasa Irene Phone: Colorectal Surgery Start: 01-15-2025 End: 01-15-2025 Emergency department patient visit Dr. Harjeet Bernard MD Work Phone: -Emergency Department Work Phone: Start: 01-15-2025 End: 01-15-2025 Telephone encounter Nicolasa Irene Phone: Colorectal Surgery Start: 01-14-2025 End: 01-14-2025 Telephone encounter Nicolasa Denise DO Work Phone: Colorectal Surgery Comment on above: Patient Update Start: 01-13-2025 End: 01-13-2025 Admission to same day surgery center Nicolasa Irene Phone: Colorectal Surgery Comment on above: Update to the video chat we had on December 28 Start: 01-13-2025 End: 01-13-2025 ambulatory Nicolasa Denise Work Phone: Colorectal Surgery Start: 01-11-2025 End: 01-11-2025 ambulatory HARJEET D NILOAMPLOAN Facility:[facility] Start: 01-04-2025 End: 01-04-2025 ambulatory HARJEET D TALAMPAS Facility:[facility] Start: 12-28-2024 End: 12-28-2024 Admission to same day surgery center Nicolasa Guillorybenigno FARIAS Work Phone: Colorectal Surgery Comment on above: 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); 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); Portal vein thrombosis Start: 12-28-2024 End: 12-28-2024 Telemedicine consultation with patient Nicolasa Denise Work Phone: Colorectal Surgery Start: 12-28-2024 End: 12-28-2024 ambulatory HARJEET D TALAMPAS Facility:[facility] Start: 12-21-2024 End: 12-21-2024 ambulatory HARJEET D TALAMPAS Facility:[facility] Start: 12-21-2024 End: 12-21-2024 ambulatory HARJEET D TALAMPAS Facility:[facility] Start: 12-21-2024 End: 12-21-2024 Office outpatient visit 40 minutes Harjeet Bernard MD Work Phone: Internal Medicine [place] Comment on above: [place] (acute kidney in jury) (HCC) (Primary Dx); Acute renal insufficiency; Excessive gas; 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); Recurrent major depressive disorder, in partial remission (HCC) Start: 12-17-2024 End: 12-17-2024 Telephone encounter Harjeet Bernard MD Work Phone: Internal Medicine [place] Comment on above: Patient Update (Call ed ) Start: 12-16-2024 Non-patient / Non-visit Dr. Azul Perera MD -[facility] Work Phone: Start: 12-15-2024 Non-patient / Non-visit Dr. Celeste Jc DO -[facility] Work Phone: Start: 12-15-2024 End: 12-16-2024 ambulatory Harjeet Cueva Taleloy Facility:[facility] Start: 12-15-2024 End: 12-16-2024 Evaluation and management of inpatient Dr. Mk Jc DO -Medical Surgical 3 Work Phone: Start: 12-15-2024 End: 12-16-[address] Harjeet Bernard MD Work Phone: [facility] Work Phone: Start: 12-14-2024 End: 12-14-2024 Admission to same day surgery center Nicolasa Denise DO Work Phone: Colorectal Surgery Comment on above: Dov knutson Question Start: 12-14-2024 End: 12-14-2024 ambulatory Nicolasa Denise DO Work Phone: Colorectal Surgery Start: 12-14-2024 End: 12-14-2024 Follow-up encounter Julissa Ugarte APRN.LITERACY EDUCATION PROFESSOR Work Phone: Internal Medicine [place] Start: 12-14-2024 End: 12-14-2024 Telephone encounter Julissa Ugarte APRN.LITERACY EDUCATION PROFESSOR Work Phone: Internal Medicine [place] Comment on above: Results Start: 12-12-2024 End: 12-14-2024 Telephone encounter Derek Ulloa DO Work Phone: [facility] Start: 12-12-2024 End: 12-12-2024 ambulatory HARJEET D NILOAMPLOAN Facility:[facility] Start: 12-11-2024 End: 12-11-2024 ambulatory HARJEET D MARCO ANTONIO Facility:[facility] Start: 12-07-2024 End: 12-14-2024 ambulatory Julissa Ugarte APRN.LITERACY EDUCATION PROFESSOR Work Phone: [facility] [place] Comment on above: Results Start: 12-07-2024 End: 12-14-2024 E-mail encounter from caregiver Julissa Ugarte APRN.LITERACY EDUCATION PROFESSOR Work Phone: [facility] [place] Start: 12-07-2024 End: 02-06-2025 Follow-up encounter Julissa Torito ALMANZALITERACY EDUCATION PROFESSOR Work Phone: Internal Medicine [place] Start: 12-04-2024 End: 12-04-2024 ambulatory HARJEET BERNARD Facility:[facility] Start: 12-04-2024 End: 12-04-2024 Patient encounter procedure Julissa Ugarte LITERACY EDUCATION PROFESSOR Work Phone: [facility] [place] Comment on above: Nausea vomiting and diarrhea (Primary Dx); Hypokalemia; [place] (acute kidney injury) (HCC); Special screening examination for viral disease; Screening for HIV (human immunodeficiency virus) Start: 11-30-2024 End: 11-30-2024 ambulatory Harjeet Bernard MD Work Phone: Internal [facility] [place] Comment on above: Hospital F/U Start: 11-29-2024 Non-patient / Non-visit Dr. Sara Quezada [facility] Work Phone: Start: 11-28-2024 Non-patient / Non-visit Dr. Sara Quezada DO [facility] Work Phone: Start: 11-27-2024 Non-patient / Non-visit Dr. Sara Quezada [facility] Work Phone: Start: 11-27-2024 ambulatory Ibrahima Doan Facility:[facility] Start: 11-27-2024 End: 11-29-2024 Evaluation and management of inpatient Dr. Sara Quezada DO [facility] Work Phone: Start: 11-26-2024 Non-patient / Non-visit Dr. Ibrahima sweet [facility] Work Phone: Start: 11-26-2024 [facility] Start: 11-04-2024 End: 11-17-2024 Refill Nicolasa Denise DO Work Phone: Colorectal Surgery Comment on above: Refill Request Start: 09-21-2024 End: 09-21-2024 Admission to same day surgery center Nicolasa Denise DO Work Phone: Colorectal Surgery Comment on above: Dov guzman Photo Start: 09-21-2024 End: 09-21-2024 ambulatory Nicolasa Serrano Howie Work Phone: Colorectal Surgery Start: 09-21-2024 End: 09-21-2024 Telephone encounter Nicolasa Denise Work Phone: Colorectal Surgery Comment on above: Patient Update Start: 07-13-2024 End: 07-13-2024 Admission to same day surgery center Nicolasa Denise Work Phone: Colorectal Surgery Comment on above: 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); 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); Mass of appendix Start: 07-13-2024 End: 07-13-2024 Telemedicine consultation with patient Nicolasa Denise DO [place] Phone: Colorectal Surgery Start: 07-13-2024 End: 07-13-2024 ambulatory HARJEET BERNARD Facility:[facility] Start: 06-15-2024 End: 06-15-2024 Patient encounter procedure Nicolasa Denise [place] Phone: Colorectal Surgery Comment on above: 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); 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) Start: 06-15-2024 End: 06-15-2024 ambulatory HARJEET BERNARD Facility:[facility] Start: 06-15-2024 End: 06-15-2024 Nursing evaluation of patient and report Stoma Therapy Work Phone: Colorectal Surgery Comment on above: Attention to ileosto my (HCC) (Primary Dx); Fitting and adjustment of gastrointestinal appliance and device Start: 05-15-2024 End: 05-15-2024 Office outpatient visit 25 minutes Harjeet Bernard MD Work Phone: Internal Medicine [place] Comment on above: Recurrent major depr essive disorder, in partial remission (HCC) (Primary Dx); 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); AMBROSE on CPAP; Hypercholesteremia <130; Elevated glucose; Encounter for long-term current use of medication Start: 05-15-2024 End: 05-15-2024 Subsequent hospital visit by physician Ct [facility] Cat Scan Comment on above: 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 [D37.3] Start: 05-07-2024 Telephone encounter Nicolasa Denise DO Work Phone: Colorectal Surgery Comment on above: Patient Update Start: 05-04-2024 End: 05-04-2024 Emergency department patient visit Harjeet Bernard Facility:[facility] Start: 04-13-2024 Telephone encounter Nicolasa Denise DO Work Phone: Colorectal Surgery Comment on above: Patient Update Start: 03-23-2024 Refill Harjeet lafleur MD Work Phone: Internal Medicine [place] Comment on above: Refill Request Start: 01-22-2024 End: 01-22-2024 Nursing evaluation of patient and report Stoma Therapy Work Phone: Colorectal Surgery Comment on above: Ileostomy in place ( HCC) (Primary Dx) Start: 01-15-2024 Telephone encounter Stoma Ther apy Work Phone: HOSP STOMA Comment on above: Stoma Consult Start: 11-11-2023 End: 11-11-2023 [facility] Harjeet Bernard MD Work Phone: Internal Medicine [place] Comment on above: Recurrent major depr essive disorder, in partial remission (HCC) (Primary Dx) Start: 06-24-2023 End: 06-24-2023 Nursing evaluation of patient and report Stoma Therapy Work Phone: Colorectal Surgery Comment on above: Ileostomy in place ( HCC) (Primary Dx) Start: 05-17-2023 End: 05-17-2023 Subsequent hospital visit by physician [facility] (I-Stat) Work Phone: Cat Scan Comment on above: Intra-abdominal and pelvic swelling, mass and lump, unspecified site [R19.00] Start: 05-14-2023 Telephone encounter Harjeet lyons MD Work Phone: Internal Medicine [place] Comment on above: CPAP Supplies Start: 04-05-2023 End: 04-05-2023 Office outpatient visit 25 minutes Harjeet Bernard MD Work Phone: Internal Medicine [place] Comment on above: Recurrent major depr essive disorder, in partial remission (HCC) (Primary Dx); AMBROSE on CPAP; 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) Start: 02-12-2023 Refill Julissa Ugarte APRN.CNS Work Phone: Internal Medicine [place] Comment on above: Refill Request Start: 01-09-2023 End: 01-09-2023 Patient encounter procedure Beckie Eaton DO Work Phone: Vascular Medicine [...] with patient Nicolasa Denise DO Work Phone: [facility] Start: 12-19-2022 End: 12-19-2022 ambulatory Nicolasa Denise DO Work Phone: Colorectal Surgery Comment on above: 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) Start: 12-19-2022 End: 12-19-2022 Telemedicine consultation with patient Nicolasa Denise DO Work Phone: [facility] Start: 12-17-2022 End: 12-17-2022 ambulatory Nicolasa Denise DO Work Phone: Colorectal Surgery Comment on above: 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) Start: 12-17-2022 End: 12-17-2022 Telemedicine consultation with patient Nicolasa Denise DO Work Phone: [facility] Start: 11-21-2022 Telephone encounter Beckie Cruz DO Work Phone: Vascular Medicine Comment on above: Medication Problem Start: 11-14-2022 Refill Beckie armstrong DO Work Phone: Vascular Medicine Comment on above: Refill Request Start: 11-05-2022 End: 11-05-2022 Patient encounter procedure Nicolasa Denise DO Work Phone: Colorectal Surgery Comment on above: Mass of appendix (Pr imary Dx); Attention to ileostomy (HCC); Gastrocutaneous fistula; Low grade mucinous neoplasm of appendix; Encounter for attention to ileostomy (HCC) Start: 10-19-2022 End: 10-19-2022 ambulatory Jose Waite JARAD Work Phone: General Surgery Comment on above: Gastrocutaneous fist christian (Primary Dx) Start: 10-19-2022 End: 10-19-2022 Telemedicine consultation with patient Jose LAGUNASWagner Work Phone: [facility] Start: 10-15-2022 End: 10-15-2022 Office outpatient visit 25 minutes Harjeet Bernard MD Work Phone: Internal Medicine [place] Comment on above: Iron deficiency anem ia, unspecified iron deficiency anemia type (Primary Dx); Recurrent major depressive disorder, in partial remission (HCC); AMBORSE on APAP; 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); Encounter for long-term current use of medication Start: 10-02-2022 Telephone encounter Nicolasa Denise DO Work Phone: [...] of appendix [D37.3] Start: 08-31-2022 Telephone encounter Angel Howie FARIAS Work Phone: Colorectal Surgery Comment on above: Patient Update Start: 08-27-2022 End: 08-27-2022 Patient encounter procedure Angel Howie FARIAS Work Phone: Colorectal Surgery Comment [...] End: 08-01-2022 Telemedicine consultation with patient Beckie Eaton DO Work Phone: [facility] Start: 07-30-2022 E-mail encounter fro m caregiver Nicolasa Denise DO Work Phone: [facility] Start: 07-30-2022 Follow-up encounter Nicolasa Denise DO Work Phone: Colorectal Surgery Comment on above: 1 [...] with patient Silvana Herrera MD Work Phone: [facility] Start: 07-25-2022 End: 07-25-2022 ambulatory Silvana Herrera MD Work Phone: Infectious Disease Comment on above: Outside Lab Results (copat) Start: 07-25-2022 End: 07-25-2022 Patient encounter procedure [facility], Specimen Start: 07-20-2022 ambulatory Graciela cortez RN Work Phone: [facility] Start: 07-20-2022 Follow-up encounter Graciela To lisy RN Work Phone: [employer] Comment on above: Transition Of Care ( TCM follow up [facility] Hospital Discharge 06/28/22/) Start: 07-19-2022 End: 07-19-2022 Subsequent hospital visit by physician Hannah Mcnair MD Work Phone: Gastroenterology Comment on above: Bile leak [K83.9] Start: 07-16-2022 End: 07-16-2022 ambulatory Silvana Herrera MD Work Phone: Infectious Disease Comment on above: Outside Lab Results (copat) Start: 07-16-2022 End: 07-16-2022 Patient encounter procedure [facility], Specimen Start: 07-13-2022 ambulatory Graciela cortez RN Work Phone: [facility] Start: 07-13-2022 Follow-up encounter Graciela To ccaceli RN Work Phone: [employer] Comment on above: Transition Of Care ( TCM follow up [facility] Hospital Discharge 06/28/22) Start: 07-12-2022 Telephone encounter Niraj Miller RN G astroenterology Comment on above: Appointment Confirma tion (/) Start: 07-11-2022 ambulatory Silvana Herrera MD Work Phone: [facility] Start: 07-11-2022 Telephone encounter Silvana warren MD Work Phone: [facility] Comment on [...] 07-07-2022 ambulatory Graciela cortez RN Work Phone: [facility] Start: 07-07-2022 Follow-up encounter Graciela wasserman RN Work Phone: [employer] Comment on above: Transition Of Care ( TCM follow up [facility] Hospital Discharge 06/28/22) Start: 07-03-2022 ambulatory Dmitriy Starks RN Infecti ous Disease Comment on above: [employer] Start: 06-29-2022 Patient Outreach Graciela swartz RN Work Phone: [employer] Comment on above: Transition Of Care ( TCM Initial [facility] Hospital Discharge 06/28/22/) Start: 06-28-2022 ambulatory Tasiatavia Blankenship Work Phone: Case Management Comment on [...] to establishment [facility] Work Phone: [facility] Start: 05-11-2022 End: 05-11-2022 ambulatory Pacc [...] procedure Andre Parnell DO Work Phone: [place] [facility] Start: 05-02-2022 End: 05-02-2022 Patient encounter procedure Priscila Clarke MD Work Phone: General Surgery Comment on above: Upper abdominal mass (Primary Dx) Start: 04-30-2022 Telephone encounter Priscila Clarke MD Work Phone: [place] [facility] Adult Comment on above: Manager Configuration - O ther Start: 04-26-2022 End: 04-26-2022 Subsequent hospital visit by physician Priscila Clarke MD Work Phone: Ambulatory Surgery Comment on above: Anemia, unspecified type [D64.9] Start: 2022 Telephone encounter Priscila Clarke MD Work Phone: General Surgery Comment on above: Results Appointment (New pat ient) Start: 2022 End: 2022 ambulatory AGUS ALANNA Facility:[facility] Start: 04-23-2022 Orders Only Marielos porras RN [facility] Radiology Comment on above: Omental mass (Primar y Dx) Start: 04-20-2022 End: 04-20-2022 Subsequent hospital visit by physician Ct Prep [facility] Cat Scan Comment on above: Intra-abdominal and pelvic swelling, mass and lump, unspecified site [R19.00] Start: 03-05-2022 Telephone encounter Julissa almeida PATIENT FLOW COORDINATOR.LITERACY EDUCATION PROFESSOR Work Phone: Internal Medicine [place] Comment on above: Results, Lab Start: 03-02-2022 End: 03-02-2022 Patient encounter procedure Julissa Ugarte APRN.LITERACY EDUCATION PROFESSOR Work Phone: Internal Medicine [place] Comment on above: Obstructive sleep ap lenin syndrome (Primary Dx); Special screening examination for viral disease; Screening for HIV (human immunodeficiency virus); Hypercholesteremia <130; Non morbid obesity due to excess calories; Iron deficiency anemia, unspecified iron deficiency anemia type; Recurrent major depressive disorder, in partial remission (HCC) Start: 12-20-2021 Refill Harjeet lafleur MD Work Phone: Internal Medicine [place] Comment on above: Refill Request Procedures Date Procedure Procedure Detail Performing Clinician Start: 04-12-[address] Harjeet Bernard MD Work Phone: Start: 03-28-[address] Harjeet Bernard MD Work Phone: Start: 01-15-[address] Harjeet Bernard MD Work Phone: Start: 12-16-[address] Harjeet Bernard MD Work Phone: Start: 12-16-[address] Harjeet Bernard MD Work Phone: Start: 12-16-[address] Harjeet Bernard MD Work Phone: Start: 12-16-2024 Iadna-dna/rna gi pthgn multiplex probe tq 6-11 Dr. Harjeet Bernard MD Work Phone: Start: 12-12-2024 Lipid 1996 panel - Serum or Plasma Gerard Ulloa DO Work Phone: Start: 11-29-[address] Harjeet Bernard MD Work Phone: Start: 11-29-2024 Serum inorganic phosphate measurement Dr. Harjeet Bernard MD Work Phone: Start: 11-27-2024 Urnls dip stick/tablet reagent auto microscopy Dr. Harjeet Bernard MD Work Phone: Start: 11-27-2024 Complete ultrasound of kidneys and bladder Dr. Harjeet Bernard MD Work Phone: Start: 11-27-2024 Carbon dioxide measurement, partial pressure Dr. Harjeet Bernard MD Work Phone: Start: 11-27-2024 Gases blood o2 saturation only direct tran Dr. Harjeet Bernard MD Work Phone: Start: 11-27-2024 Measurement of partial pressure of oxygen in blood Dr. Harjeet Bernard MD Work Phone: Start: 05-15-2024 Ct abdomen & pelvis w/contrast material Nicolasa Denise DO Work Phone: Start: 05-15-2024 Ct thorax w/contrast material Nicolasa Denise DO Work Phone: Start: 05-15-2024 Lipid 1996 panel - Serum or Plasma Ct Ws tr Start: 05-17-2023 Ct abdomen & pelvis w/contrast material Nicolasa Serrano Howie DO Work Phone: Start: 05-17-2023 Ct thorax w/contrast material Nicolasa Serrano Howie DO Work Phone: Start: 01-04-2023 Lipid 1996 panel - Serum or Plasma Stoma Therapy Work Phone: Start: 09-14-2022 XR ABSCESS DRAIN INJECTION Nicolasa pelaez DO Work Phone: Start: 07-25-2022 BILIRUBIN TOTAL [...] INJECTION Andre mcgowan MD Work Phone: Start: 04-26-2022 Esophagogastroduodenoscopy transoral diagnostic Priscila Clarke MD Work Phone: Start: 04-26-2022 Colonoscopy flx dx w/collj spec when pfrmd Priscila Clarke MD Work Phone: Start: 04-26-2022 Colonoscopy Priscila Clarke MD Work Phone: Start: 07-22-2022 Ct abdomen & pelvis w/contrast material Priscila Clarke MD Work Phone: Plan of Treatment Date Care Activity Detail Author Start: 12-12-2029 Lipid panel Lipid Screening [facility] Start: 05-15-2029 Lipid panel Lipid Screening [facility] Start: 05-14-2028 Diabetes Screening Diabetes Screening [facility] Start: 05-07-2028 Diabetes Screening Diabetes Screening [facility] Start: 04-16-2028 Diabetes Screening Diabetes Screening [facility] Start: 04-12-2028 Diabetes Screening Diabetes Screening [facility] Start: 03-29-2028 Diabetes Screening Diabetes Screening [facility] Start: 03-25-2028 Urine microalbumin profile [facility] Start: 03-22-2028 Diabetes Screening Diabetes Screening [facility] Start: 02-02-2028 Diabetes Screening Diabetes Screening [facility] Start: 01-26-2028 Diabetes Screening Diabetes Screening [facility] Start: 01-19-2028 Diabetes Screening Diabetes Screening [facility] Start: 01-12-2028 Diabetes Screening Diabetes Screening [facility] Start: 01-05-2028 Lipid 1996 panel - Serum or Plasma Lipid Screening [facility] Start: 01-05-2028 Lipid panel Lipid Screening [facility] Start: 01-05-2028 LIPID SCREEN LIPID SCREEN [facility] Start: 12-15-2027 Diabetes Screening Diabetes Screening [facility] Start: 12-13-2027 Diabetes Screening Diabetes Screening [facility] Start: 12-05-2027 Diabetes Screening Diabetes Screening [facility] Start: 05-15-2027 Diabetes Screening Diabetes Screening [facility] Start: 05-23-2026 End: 05-23-2026 Patient encounter procedure 05/23/2026 3:40 PM EDT Office Visit [facility] [place] [address] [place] [address] Harjeet Bernard MD [address] [place] [address] 6 month f/u [facility] [place] Comment on above: 6 month f/u Start: 05-17-2026 Annual PCP Team Chronic Disease Visit Annual PCP Team Chronic Disease Visit [facility] Start: 05-14-2026 Creatinine measurement Serum Creatinine [facility] Start: 05-07-2026 Creatinine measurement Serum Creatinine [facility] Start: 04-19-2026 Annual PCP Team Chronic Disease Visit Annual PCP Team Chronic Disease Visit [facility] Start: 04-16-2026 Complete blood count Hemoglobin/Hematocrit [facility] Start: 04-16-2026 Creatinine measurement Serum Creatinine [facility] Start: 04-12-2026 Creatinine measurement Serum Creatinine [facility] Start: 03-29-2026 Annual PCP Team Chronic Disease Visit Annual PCP Team Chronic Disease Visit [facility] Start: 01-04-2026 DIABETES SCREEN DIABETES SCREEN [facility] Start: 01-04-2026 Diabetes Screening Diabetes Screening [facility] Start: 12-12-2025 Complete blood count Hemoglobin/Hematocrit [facility] Start: 11-22-2025 End: 11-22-2025 Patient encounter procedure 11/22/2025 4:20 PM EST Office Visit [facility] [place] [address] [place] [address] Harjeet Bernard MD [address] [place] [address] 6 month f/u [facility] [place] Comment on above: 6 month f/u Start: 07-28-2025 End: 07-28-2025 ambulatory 07/28/2025 11:00 AM EDT Infusion Center Hematology/Oncology [address] [place] [address] 2ND Hematology/Oncolog y Comment on above: 2ND Start: 07-25-2025 DIABETES SCREEN DIABETES SCREEN [facility] Start: 07-16-2025 DIABETES SCREEN DIABETES SCREEN [facility] Start: 07-14-2025 End: 07-14-2025 ambulatory 07/14/2025 11:00 AM EDT Infusion Center Hematology/Oncology [address] [place] [address] 2ND Hematology/Oncolog y Comment on above: 2ND Start: 06-30-2025 End: 06-30-2025 ambulatory Hematology/Oncolog y Comment on above: 2ND Start: 06-28-2025 DIABETES SCREEN DIABETES SCREEN [facility] Start: 06-26-2025 DIABETES SCREEN DIABETES SCREEN [facility] Start: 06-21-2025 End: 06-21-2025 Patient encounter procedure 06/21/2025 4:30 PM EDT Office Visit Kidney Medicine [address] [place] [address] Ford Hutchins, PATIENT FLOW COORDINATOR.[facility] [address] [place] [address] Return in about 2 months (around 06/14/2025). Kidney Medicine Comment on above: Return in about 2 months (around 06/14/20). Start: 06-16-2025 End: 06-16-2025 ambulatory 06/16/2025 11:00 AM EDT Infusion Center Hematology/Oncology [address] [place] [address] 2ND Hematology/Oncolog y Comment on above: 2ND Start: 06-14-2025 DIABETES SCREEN DIABETES SCREEN [facility] Start: 06-07-2025 DIABETES SCREEN DIABETES SCREEN [facility] Start: 06-03-2025 End: 06-03-2025 ambulatory 06/03/2025 10:00 AM EDT Infusion Center Hematology/Oncology [address] [place] [address] 2ND Hematology/Oncolog y Comment on above: 2ND Start: 06-02-2025 End: 06-02-2025 ambulatory 06/02/2025 1:30 PM EDT Infusion Center Hematology/Oncology [address] [place] [address] 2ND Hematology/Oncolog y Comment on above: 2ND Start: 05-31-2025 Influenza vaccination [facility] Start: 05-30-2025 DIABETES SCREEN DIABETES SCREEN [facility] Start: 05-19-2025 End: 05-19-2025 ambulatory 05/19/2025 1:30 PM EDT Infusion Center Hematology/Oncology [address] [place] [address] 2ND Hematology/Oncolog y Comment on above: 2ND Start: 05-17-2025 End: 05-17-2025 Patient encounter procedure 05/17/2025 3:40 PM EDT Office Visit [facility] [place] [address] [place] [address] Harjeet Bernard MD [address] [place] [address] 6 month follow up [facility] [place] Comment on above: 6 month follow up Start: 04-30-2025 End: 04-30-2025 Patient encounter procedure 04/30/2025 11:20 AM EDT Office Visit Cardiology [address] [place] [address] Bilateral lower extremity edema [R60.0]; Elevated brain natriuretic peptide (BNP) level [R79.89] Cardiology Comment on above: Bilateral lower extremity edema [R60.0]; Elevated brain natriuretic peptide (BNP) level [R79.89] Start: 04-19-2025 DIABETES SCREEN DIABETES SCREEN [facility] Start: 04-19-2025 End: 04-19-2025 Patient encounter procedure 04/19/2025 10:20 AM EDT Office Visit [facility] [place] [address] [place] [address] Harjeet Bernard MD [address] [place] [address] [facility] ER for cellulitis [facility] [place] Comment on above: follow up [facility] ER for cellulitis Start: 04-15-2025 End: 04-15-2025 Patient encounter procedure 04/15/2025 1:00 PM EDT Appointment Radiology [address] [place] [address] US KIDNEY/BLADDER Radiology Comment on above: US KIDNEY/BLADDER Start: 04-13-2025 End: 07-13-2025 Albumin [Mass/volume] in Serum or Plasma ALBUMIN Lab Routine Bilateral leg edema Expected: 04/13/2025, Expires: 07/13/2025 [facility] Comment on above: Expected: 04/13/2025, Expires: Start: 04-13-2025 End: 07-13-2025 Cortisol [Mass/volume] in Serum or Plasma CORTISOL, SERUM Lab Routine Hyponatremia Expected: 04/13/2025, Expires: 07/13/2025 [facility] Comment on above: Expected: 04/13/2025, Expires: Start: 04-13-2025 End: 04-13-2026 Hematocrit [Volume Fraction] of Blood HEMATOCRIT Lab Routine Anemia in stage 4 chronic kidney disease (HCC) Expected: 04/13/2025, Expires: 04/13/2026 [facility] Comment on above: Expected: 04/13/2025, Expires: Start: 04-13-2025 End: 04-13-2026 Hemoglobin [Mass/volume] in Blood HEMOGLOBIN Lab Routine Anemia in stage 4 chronic kidney disease (HCC) Expected: 04/13/2025, Expires: 04/13/2026 [facility] Comment on above: Expected: 04/13/2025, Expires: Start: 04-13-2025 End: 07-13-2025 Natriuretic peptide.B prohormone N-Terminal [Mass/volume] in Serum or Plasma NT PRO BNP Lab Routine Bilateral leg edema Expected: 04/13/2025, Expires: 07/13/2025 [facility] Comment on above: Expected: 04/13/2025, Expires: Start: 04-13-2025 End: 07-13-2025 Osmolality of Serum or Plasma OSMOLALITY Lab Routine Hyponatremia Expected: 04/13/2025, Expires: 07/13/2025 [facility] Comment on above: Expected: 04/13/2025, Expires: Start: 04-13-2025 End: 07-13-2025 Osmolality of Urine OSMOLALITY URINE Lab Routine Hyponatremia Expected: 04/13/2025, Expires: 07/13/2025 [facility] Comment on above: Expected: 04/13/2025, Expires: Start: 04-13-2025 End: 04-13-2026 Parathyrin.intact [Mass/volume] in Serum or Plasma PTH INTACT Lab Routine Chronic kidney disease-mineral and bone disorder Expected: 04/13/2025, Expires: 04/13/2026 [facility] Comment on above: Expected: 04/13/2025, Expires: Start: 04-13-2025 End: 04-13-2026 Protein/Creatinine [Mass Ratio] in Urine PROTEIN / CREATININE RATIO Lab Routine Acute renal failure, unspecified acute renal failure type Expected: 04/13/2025, Expires: 04/13/2026 [facility] Comment on above: Expected: 04/13/2025, Expires: Start: 04-13-2025 End: 04-13-2026 Renal function 2000 panel - Serum or Plasma RENAL FUNCTION PANEL Lab Routine Acute renal failure, unspecified acute renal failure type CKD (chronic kidney disease) stage 4, GFR 15-29 ml/min ([facility]) Hypokalemia Hyponatremia Metabolic acidosis Ileostomy present (HCC) Chronic kidney disease-mineral and bone disorder Expected: 04/13/2025, Expires: 04/13/2026 [facility] Work Phone: Comment on above: Expected: 04/13/2025, Expires: Start: 04-13-2025 End: 07-13-2025 Sodium [Moles/volume] in Urine collected for unspecified duration SODIUM RANDOM URINE Lab Routine Hyponatremia Expected: 04/13/2025, Expires: 07/13/2025 [facility] Comment on above: Expected: 04/13/2025, Expires: Start: 04-13-2025 End: 07-13-2025 Thyrotropin [Units/volume] in Serum or Plasma THYROID STIMULATING HORMONE Lab Routine Hyponatremia Expected: 04/13/2025, Expires: 07/13/2025 [facility] Comment on above: Expected: 04/13/2025, Expires: Start: 04-13-2025 End: 04-13-2026 Urate [Mass/volume] in Serum or Plasma URIC ACID Lab Routine Acute renal failure, unspecified acute renal failure type Expected: 04/13/2025, Expires: 04/13/2026 [facility] Comment on above: Expected: 04/13/2025, Expires: Start: 04-13-2025 End: 04-13-2026 Urinalysis complete panel - Urine URINALYSIS, WITH MICROSCOPIC Lab Routine Acute renal failure, unspecified acute renal failure type CKD (chronic kidney disease) stage 4, GFR 15-29 ml/min ([facility]) Expected: 04/13/2025, Expires: 04/13/2026 [facility] Comment on above: Expected: 04/13/2025, Expires: Start: 04-13-2025 End: 04-13-2025 Patient encounter procedure 04/13/2025 1:00 PM EDT Office Visit Kidney Medicine [address] [place] [address] Nelly Xiao I, MD [address] [place] 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) [Z93.2] [facility] Comment on above: 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) [Z93.2] Start: 04-12-2025 [facility] Start: 01-15-2025 Serum inorganic phosphate measurement [facility] Start: 01-15-2025 Hospital admission, emergency, from emergency room, medical nature [facility] Start: 12-28-2024 End: 12-28-2024 Admission to establishment 12/28/2024 2:45 PM EDT [facility] Colorectal Surgery [address] [address] Nicolasa Denise DO [address] [place] [phone] Discuss recent admission/ hydration Colorectal Surgery Comment on above: Discuss recent admission/ hydration Start: 12-21-2024 End: 12-21-2024 Patient encounter procedure 12/21/2024 2:40 PM EDT Office Visit [facility] [place] [address] [place] [address] [place] [address] Harjeet Bernard MD [address] [place] [address] 6 month follow up [facility] [place] Comment on above: 6 month follow up Start: 12-16-2024 Patient discharge [facility] Start: 12-15-2024 Following clinical pathway protocol [facility] Start: 12-15-2024 Ambulation without limitation [facility] Start: 12-15-2024 Assessment of risk of venous thromboembolism [facility] Start: 12-15-2024 Insertion of catheter into peripheral vein [facility] Start: 12-15-2024 Providing care according to standard [facility] Start: 12-15-2024 [facility] Start: 12-15-2024 Verification routine [facility] Start: 12-15-2024 Admission procedure [facility] Start: 12-15-2024 Hospital admission, emergency, from emergency room, medical nature [facility] Start: 12-14-2024 End: 03-15-2025 Basic metabolic 2000 panel - Serum or Plasma BASIC METABOLIC PANEL Lab Routine Hypokalemia [place] (acute kidney injury) (HCC) Nausea vomiting and diarrhea Expected: 12/14/2024, Expires: 03/15/2025 [facility] Work Phone: Comment on above: Expected: 12/14/2024, Expires: Start: 12-04-2024 End: 12-04-2024 Patient encounter procedure 12/04/2024 11:00 AM EST Office Visit Internal Medicine [place] [address] [place] [address] Julissa Ugarte APRN.LITERACY EDUCATION PROFESSOR [address] [place] [address] [facility] Follow Up D/C 11/29/2024 Dehydration [facility] [place] Comment on above: [facility] Follow Up D/C 11/29/2024 Dehydration Start: 11-29-2024 Patient discharge [facility] Start: 11-28-2024 Following clinical pathway protocol [facility] Start: 11-28-2024 [facility] Start: 11-27-2024 Admission procedure [facility] Start: 11-26-2024 Ambulation without limitation [facility] Start: 11-26-2024 Assessment of risk of venous thromboembolism [facility] Start: 11-26-2024 Insertion of catheter into peripheral vein [facility] Start: 11-26-2024 Providing care according to standard [facility] Start: 11-26-2024 [facility] Start: 11-26-2024 Admission procedure [facility] Start: 11-26-2024 Patient referral to dietitian [facility] Start: 10-19-2024 End: 10-19-2024 Patient encounter procedure 10/19/2024 3:40 PM EST Office Visit Internal Medicine [place] [address] [place] [address] Harjeet Bernard MD [address] [place] [address] 6 month follow up [facility] Comment on above: 6 month follow up Start: 10-08-2024 Covid-19 Vaccine () Covid-19 Vaccine () [facility] Comment on above: Postponed from 05/31/2023 (Declined at t his time) Start: 07-13-2024 End: 07-13-2024 Follow-up encounter 07/13/2024 1:00 PM EDT [facility] Colorectal Surgery [address] [place] [phone] Nicolasa Denise DO [address] [place] [place], [place] [phone] 4 week follow up Colorectal Surgery Comment on above: 4 week follow up Start: 07-04-2024 DIABETES SCREEN DIABETES SCREEN [facility] Start: 06-15-2024 End: 06-15-2024 Patient encounter procedure 06/15/2024 10:20 AM EDT Office Visit Colorectal Surgery [address] [address] Nicolasa Denise DO [address] [place] [place], [place] [phone] Yealy follow up Colorectal Surgery Comment on above: Yealy follow up Start: 06-15-2024 End: 06-15-2024 Nursing evaluation of patient and report 06/15/2024 10:15 AM EDT Nurse Visit Colorectal Surgery [address] [address] Therapy, [place] [address] [place] [place], [place] [phone] Yearly follow up Colorectal Surgery Comment on above: Yearly follow up Start: 05-31-2024 Covid-19 Vaccine ( season) Covid-19 Vaccine () [facility] Start: 05-31-2024 Covid-19 Vaccine () Covid-19 Vaccine () [facility] Start: 05-31-2024 Influenza vaccination [facility] Start: 05-15-2024 End: 08-14-2024 Hemoglobin A1c in Blood [facility] Comment on above: Expected: 05/15/2024, Expires: Start: 05-15-2024 End: 05-15-2024 Patient encounter procedure [facility] Comment on above: [address] ABD/PEL W IVCON, CT CHEST W IVCON Start: 04-13-2024 End: 04-13-2024 Patient encounter procedure 04/13/2024 4:40 PM EDT Office Visit Internal Medicine [place] [address] [place], [place] [phone] Harjeet Bernard MD [address] [place] [address] 6 month follow up [facility] Comment on above: 6 month follow up Start: 03-29-2024 Influenza vaccination Influenza Vaccine (#1) [facility] Comment on above: Postponed from 05/31/2023 (Declined at t his time) Start: 10-15-2023 COVID-19 VACCINE (3 - Booster for Moderna series) COVID-19 VACCINE (3 - Booster for Moderna series) [facility] Comment on above: Postponed from 03/16/2021 (Declined at t his time) Start: 10-15-2023 COVID-19 VACCINE (3 - Moderna series) COVID-19 VACCINE (3 - Moderna series) [facility] Comment on above: Postponed from 03/16/2021 (Declined at t his time) Start: 10-15-2023 HEPATITIS B (1 of 3 - 3-dose series) HEPATITIS B (1 of 3 - 3-dose series) [facility] Comment on above: Postponed from 1972 (Declined at t his time) Start: 10-15-2023 Hepatitis B Vaccine (1 of 3 - 3-dose series) Hepatitis B Vaccine (1 of 3 - 3-dose series) [facility] Comment on above: Postponed from 1972 (Declined at t his time) Start: 10-15-2023 Meningococcal B Vaccine: Consider Based On Risk (2 of 4 - Increased Risk Bexsero 2-dose series) Meningococcal B Vaccine: Consider Based On Risk (2 of 4 - Increased Risk Bexsero 2-dose series) [facility] Comment on above: Postponed from 07/17/2022 (Declined at t his time) Start: 10-15-2023 MENINGOCOCCAL B: Consider based on risk (2 of 4 - Increased Risk Bexsero 2-dose series) MENINGOCOCCAL B: Consider based on risk (2 of 4 - Increased Risk Bexsero 2-dose series) [facility] Comment on above: Postponed from 07/17/2022 (Declined at t his time) Start: 10-15-2023 MENINGOCOCCAL CONJUGATE (2 - Risk 2-dose series) MENINGOCOCCAL CONJUGATE (2 - Risk 2-dose series) [facility] Comment on above: Postponed from 08/13/2022 (Declined at t his time) Start: 10-15-2023 Meningococcal Conjugate Vaccine (2 - Risk 2-dose series) Meningococcal Conjugate Vaccine (2 - Risk 2-dose series) [facility] Comment on above: Postponed from 08/13/2022 (Declined at t his time) Start: 10-15-2023 SHINGRIX VACCINE (1 of 2) SHINGRIX VACCINE (1 of 2) [facility] Comment on above: Postponed from 1991 (Declined at t his time) Postponed from 04/24 (Declined at this time) Start: 10-11-2023 LIPID SCREEN LIPID SCREEN [facility] Start: 05-31-2023 End: 07-31-2023 Cancer Ag 125 [Units/volume] in Serum or Plasma CA 125 BLD Lab 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 Expected: 05/31/2023, Expires: 07/31/2023 [facility] Work Phone: Comment on above: Expected: 05/31/2023, Expires: Start: 05-31-2023 End: 07-31-2023 Cancer Ag 19-9 [Units/volume] in Serum or Plasma CA 19-9 BLD Lab 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 Expected: 05/31/2023, Expires: 07/31/2023 [facility] Work Phone: Comment on above: Expected: 05/31/2023, Expires: 3 Start: 05-31-2023 End: 07-31-2023 Carcinoembryonic Ag [Mass/volume] in Serum or Plasma CEA BLD Lab 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 Expected: 05/31/2023, Expires: 07/31/2023 [facility] Work Phone: Comment on above: Expected: 05/31/2023, Expires: 3 Start: 05-31-2023 Covid-19 Vaccine () Covid-19 Vaccine () [facility] Start: 05-31-2023 Influenza vaccination [facility] Start: 04-26-2023 Colonoscopy COLONOSCOPY [facility] Start: 04-26-2023 COLORECTAL CANCER SCREENING COLORECTAL CANCER SCREENING [facility] Start: 04-26-2023 Screening for malignant neoplasm of colon [facility] Start: 03-29-2023 Influenza vaccination INFLUENZA (#1) [facility] Comment on above: Postponed from 05/31/2022 (Declined at t his time) Start: 03-02-2023 HEPATITIS C SCREENING HEPATITIS C SCREENING [facility] Comment on above: Postponed from 1990 (Declined at t his time) Start: 03-02-2023 HIV SCREENING HIV SCREENING [facility] Comment on above: Postponed from 1990 (Declined at t his time) Start: 10-15-2022 End: 12-15-2022 CBC panel - Blood by Automated count CBC Lab Routine Encounter for long-term current use of medication Iron deficiency anemia, unspecified iron deficiency anemia type Expected: 10/15/2022, Expires: 12/15/2022 [facility] Work Phone: Comment on above: Expected: 10/15/2022, Expires: 3 Start: 10-15-2022 End: 12-15-2022 Comprehensive metabolic 2000 panel - Serum or Plasma COMP METABOLIC PANEL Lab Routine Encounter for long-term current use of medication Expected: 10/15/2022, Expires: 12/15/2022 [facility] Work Phone: Comment on above: Expected: 10/15/2022, Expires: Start: 08-30-2022 End: 03-01-2023 CBC W Auto Differential panel - Blood CBC + DIFF Lab Routine Iron deficiency anemia, unspecified iron deficiency anemia type Recurrent major depressive disorder, in partial remission (HCC) Expected: 08/30/2022 (Approximate), Expires: 03/01/2023 [facility] Work Phone: Comment on above: Expected: 08/30/2022 (Approximate), Expi res: 03/01/2023 Start: 08-30-2022 End: 03-01-2023 Comprehensive metabolic 2000 panel - Serum or Plasma COMP METABOLIC PANEL Lab Routine Hypercholesteremia <130 Recurrent major depressive disorder, in partial remission (HCC) Expected: 08/30/2022 (Approximate), Expires: 03/01/2023 [facility] Work Phone: Comment on above: Expected: 08/30/2022 (Approximate), Expi res: 03/01/2023 Start: 08-30-2022 End: 03-01-2023 LIPID PANEL BASIC LIPID PANEL BASIC Lab Routine Hypercholesteremia <130 Expected: 08/30/2022 (Approximate), Expires: 03/01/2023 [facility] Work Phone: Comment on above: Expected: 08/30/2022 (Approximate), Expi res: 03/01/2023 Start: 08-13-2022 MENINGOCOCCAL CONJUGATE (2 - Risk 2-dose series) MENINGOCOCCAL CONJUGATE (2 - Risk 2-dose series) [facility] Start: 08-13-2022 Meningococcal Conjugate Vaccine (2 - Risk 2-dose series) Meningococcal Conjugate Vaccine (2 - Risk 2-dose series) [facility] Start: 08-12-2022 COLORECTAL CANCER SCREENING COLORECTAL CANCER SCREENING [facility] Start: 08-12-2022 FECAL OCCULT BLOOD FECAL OCCULT BLOOD [facility] Start: 08-12-2022 Screening for malignant neoplasm of colon Fecal Occult Blood [facility] Start: 07-19-2022 End: 06-07-2023 ERCP ERCP Endoscopy Routine Bile leak Expected: 07/19/2022, Expires: 06/07/2023 [facility] Work Phone: Comment on above: Expected: 07/19/2022, Expires: Start: 07-17-2022 Meningococcal B Vaccine (2 of 4 - Increased Risk Bexsero 3-dose series) Meningococcal B Vaccine (2 of 4 - Increased Risk Bexsero 3-dose series) [facility] Start: 07-17-2022 Meningococcal B Vaccine (2 of 5 - Increased Risk Bexsero 3-dose series) Meningococcal B Vaccine (2 of 5 - Increased Risk Bexsero 3-dose series) [facility] Start: 07-17-2022 Meningococcal B Vaccine: Consider Based On Risk (2 of 4 - Increased Risk Bexsero 2-dose series) Meningococcal B Vaccine: Consider Based On Risk (2 of 4 - Increased Risk Bexsero 2-dose series) [facility] Start: 07-17-2022 MENINGOCOCCAL B: Consider based on risk (2 of 4 - Increased Risk Bexsero 2-dose series) MENINGOCOCCAL B: Consider based on risk (2 of 4 - Increased Risk Bexsero 2-dose series) [facility] Start: 07-04-2022 COVID-19 VACCINE (#1) COVID-19 VACCINE (#1) [facility] Comment on above: Postponed from 1977 (Declined at t his time) Postponed from 10/25 (Declined at this time) Start: 07-04-2022 COVID-19 VACCINE (1) COVID-19 VACCINE (1) [facility] Comment on above: Postponed from 1977 (Declined at t his time) Start: 07-04-2022 COVID-19 VACCINE (3 - Booster for Moderna series) COVID-19 VACCINE (3 - Booster for Moderna series) [facility] Comment on above: Postponed from 03/16/2021 (Declined at t his time) Start: 05-31-2022 Influenza vaccination [facility] Start: 05-11-2022 End: 07-11-2022 Comprehensive metabolic 2000 panel - Serum or Plasma [facility] Work Phone: Comment on above: Expected: 05/11/2022, Expires: 2 Start: 05-11-2022 End: 07-11-2022 CONFIRM BLOOD TYPE [facility] Work Phone: Comment on above: Expected: 05/11/2022, Expires: 2 Start: 05-11-2022 End: 07-11-2022 TYPE AND SCREEN,30 DAY [facility] Work Phone: Comment on above: Expected: 05/11/2022, Expires: 2 Start: 05-03-2022 End: 07-03-2022 Transferrin receptor.soluble [Mass/volume] in Serum or Plasma [facility] Work Phone: Comment on above: Expected: 05/03/2022, Expires: 2 Start: 2022 SHINGRIX VACCINE (1 of 2) SHINGRIX VACCINE (1 of 2) [facility] Start: 04-23-2022 End: 06-23-2022 CBC W Auto Differential panel - Blood CBC + DIFF Lab Routine Omental mass Expected: 04/23/2022, Expires: 06/23/2022 [facility] Work Phone: Comment on above: Expected: 04/23/2022, Expires: 2 Start: 03-29-2022 Influenza vaccination INFLUENZA (#1) [facility] Comment on above: Postponed from 05/31/2021 (Declined at t his time) Start: 12-21-2021 HEPATITIS C SCREENING HEPATITIS C SCREENING [facility] Comment on above: Postponed from 1990 (Declined at t his time) Start: 12-21-2021 HIV SCREENING HIV SCREENING [facility] Comment on above: Postponed from 1990 (Declined at t his time) Start: 03-16-2021 COVID-19 VACCINE (3 - Booster for Moderna series) COVID-19 VACCINE (3 - Booster for Moderna series) [facility] Start: 2017 COLOGUARD (FIT-DNA) COLOGUARD (FIT-DNA) [facility] Start: 2017 Colonoscopy COLONOSCOPY [facility] Start: [address] COLONOGRAPHY [facility] Start: 2017 Screening for malignant neoplasm of colon [facility] Start: 2017 SIGMOIDOSCOPY SIGMOIDOSCOPY [facility] Start: 1991 Hepatitis B Vaccine (1 of 3 - 19+ 3-dose series) Hepatitis B Vaccine (1 of 3 - 19+ 3-dose series) [facility] Start: 1991 SHINGRIX VACCINE (1 of 2) SHINGRIX VACCINE (1 of 2) [facility] Start: 1990 HEPATITIS C SCREENING HEPATITIS C SCREENING [facility] Start: 1990 Hepatitis C screening Hepatitis C Screening [facility] Start: 1990 HIV SCREENING HIV SCREENING [facility] Start: 1990 HIV screening HIV Screening [facility] Start: 1978 PNEUMOCOCCAL (1 - PCV) PNEUMOCOCCAL (1 - PCV) [facility] Start: 1972 HEPATITIS B (1 of 3 - 3-dose series) HEPATITIS B (1 of 3 - 3-dose series) [facility] Start: 1972 Hepatitis B Vaccine (1 of 3 - 3-dose series) Hepatitis B Vaccine (1 of 3 - 3-dose series) [facility] End: 12-21-2025 Basic metabolic 2000 panel - Serum or Plasma BASIC METABOLIC PANEL Lab Routine [place] (acute kidney injury) (HCC) 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) Once per week for 30 Occurrences starting 12/21/2024 until 12/21/2025 [facility] Work Phone: Comment on above: Once per week for 30 Occurrences startin g 12/21/2024 until 12/21/2025 Basic metabolic 2000 panel - Serum or Plasma BASIC METABOLIC PANEL Lab Routine [place] (acute kidney injury) (HCC) 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) 12/21/2024 4:47 PM EDT [facility] End: 04-13-2026 Basic metabolic 2000 panel - Serum or Plasma BASIC METABOLIC PANEL Lab Routine Acute renal failure, unspecified acute renal failure type Every other week for 3 Occurrences starting 04/13/2025 until 04/13/2026 [facility] Comment on above: Every other week for 3 Occurrences start ing 04/13/2025 until 04/13/2026 End: 05-15-2025 CBC panel - Blood by Automated count COMPLETE BLOOD COUNT Lab Routine Encounter for long-term current use of medication Every 6 months for 60 Occurrences starting 05/15/2024 until 05/15/2025 [facility] Comment on above: Every 6 months for 60 Occurrences starti ng 05/15/2024 until 05/15/2025 CBC panel - Blood by Automated count COMPLETE BLOOD COUNT Lab Routine Encounter for long-term current use of medication 05/15/2024 12:24 PM EDT [facility] End: 05-15-2025 Comprehensive metabolic 2000 panel - Serum or Plasma COMPREHENSIVE METABOLIC PANEL Lab Routine Encounter for long-term current use of medication Elevated glucose Every 6 months for 60 Occurrences starting 05/15/2024 until 05/15/2025 [facility] Work Phone: Comment on above: Every 6 months for 60 Occurrences starti ng 05/15/2024 until 05/15/2025 Comprehensive metabo lic 2000 panel - Serum or Plasma COMPREHENSIVE METABOLIC PANEL Lab Routine Encounter for long-term current use of medication Elevated glucose 05/15/2024 12:24 PM EDT [facility] End: 02-07-2024 Ct abdomen & pelvis w/contrast material CT ABD/PEL W IVCON Radiology Routine Intra-abdominal and pelvic swelling, mass and lump, unspecified site 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 Occurrences starting 01/08/2023 until 02/07/2024 [facility] Work Phone: Comment on above: 1 Occurrences starting 01/08/2023 until 02/07/2024 End: 02-07-2024 CT CHEST W IVCON CT CHEST W IVCON Radiology Routine Intra-abdominal and pelvic swelling, mass and lump, unspecified site 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 Occurrences starting 01/08/2023 until 02/07/2024 [facility] Work Phone: Comment on above: 1 Occurrences starting 01/08/2023 until 02/07/2024 End: 05-04-2023 ECG COMPLETE ECG COMPLETE ECG 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 Occurrences starting 05/11/2022 until 05/04/2023 [facility] Work Phone: Comment on above: 1 Occurrences starting 05/11/2022 until 05/04/2023 End: 04-19-2026 Echocardiography ECHO Cardiology Routine Bilateral lower extremity edema Elevated brain natriuretic peptide (BNP) level 1 Occurrences starting 04/19/2025 until 04/19/2026 [facility] Work Phone: Comment on above: 1 Occurrences starting 04/19/2025 until 04/19/2026 End: 05-15-2025 Lipid 1996 panel - Serum or Plasma LIPID PANEL BASIC Lab Routine Hypercholesteremia <130 Every 6 months for 60 Occurrences starting 05/15/2024 until 05/15/2025 [facility] Comment on above: Every 6 months for 60 Occurrences starti ng 05/15/2024 until 05/15/2025 Lipid 1996 panel - S yasmeen or Plasma LIPID PANEL BASIC Lab Routine Hypercholesteremia <130 05/15/2024 12:24 PM EDT [facility] Magnesium measurement [facility] Patient Education [facility] Work Phone: Patient referral [facility] Work Phone: REFER FOR ADMIT INTERVIEW REFER FOR ADMIT INTERVIEW Procedures 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 Ordered: 05/11/2022 [facility] Work Phone: Comment on above: Ordered: 05/11/2022 US Heart [facility] End: 05-13-2026 US Kidney - bilateral and Urinary bladder US KIDNEY/BLADDER Radiology Routine Acute renal failure, unspecified acute renal failure type 1 Occurrences starting 04/13/2025 until 05/13/2026 [facility] Comment on above: 1 Occurrences starting 04/13/2025 until 05/13/2026 US Kidney - bilatera l and Urinary bladder US KIDNEY/BLADDER Radiology Routine Acute renal failure, unspecified acute renal failure type 04/15/2025 1:34 PM EDT [facility] Work Phone: End: 09-26-2023 XR ABSCESS DRAIN INJECTION XR ABSCESS DRAIN INJECTION Radiology 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 Occurrences starting 08/27/2022 until 09/26/2023 [facility] Work Phone: Comment on above: 1 Occurrences starting 08/27/2022 until 09/26/2023 [facility] Immunizations Immunization Date Immunization Notes Care Provider [facility] 06-19-2022 haemophilus influenz ae type b vaccine, PRP-T conjugate Silvana Herrera MD Work Phone: [facility] 06-19-2022 meningococcal B vacc ine, fully recombinant Dr. Harjeet Bernard MD Work Phone: [facility] 06-19-2022 meningococcal B vacc ine, recombinant, OMV, adjuvanted Silvaan Herrera MD Work Phone: [facility] 06-18-2022 meningococcal (MenACWY-TT) vaccine, quadrivalent (MENQUADFI) Silvana Herrera MD Work Phone: [facility] 06-18-2022 meningococcal polysaccharide (groups A, C, Y and W-135) diphtheria toxoid conjugate vaccine (MCV4P) Dr. Harjeet Bernard MD Work Phone: [facility] 06-18-2022 pneumococcal (PCV20) vaccine, 20 valent (PREVNAR 20) Silvana Herrera MD Work Phone: [facility] 01-19-2021 Covid (Moderna) Dr. Harjeet lyons MD Work Phone: [facility] 12-22-2020 Covid (Moderna) Dr. Harjeet lyons MD Work Phone: [facility] 10-18-2018 influenza virus vacc ine, unspecified formulation [facility] Work Phone: [facility] 03-25-2018 tetanus toxoid, redu eulalia diphtheria toxoid, and acellular pertussis vaccine, adsorbed Harjeet Bernard MD Work Phone: [facility] Payers Date Payer Category Payer [employer] BLUE CARD PPO OOS [id number] 2024 Self-pay 2015 Unknown [employer] BLUE CARD PPO OOS [id number] 2015-Present [phone] [place] [address] PPO [id number] 2015 Unknown [employer] BLUE CARD PPO OOS [id number] 2015-Present [phone] [place] [address] PPO [id number] 2003 Unknown [id number] 2003 Unknown ANTHEM [id number] 2003 Unknown [id number] Unknown [id number] Unknown [id number] [id number] Unknown [id number] [id number] Unknown [id number] [id number] Unknown [id number] [id number] Unknown [id number] [id number] Unknown [id number]. 2.462 Unknown [id number] 2.462 Unknown [id number] 2.462 Unknown [id number]. [id number] Unknown [id number] [id number] Unknown [id number] Social History Date Type Detail Facility Start: 10-16-2011 End: 07-09-2022 Tobacco smoking status RIIS Never smoked tobacco [facility] Start: 07-04-2021 End: 03-02-2022 Alcohol intake Not Asked [facility] Start: 1970 Sex Assigned At Not on file [facility] Start: 02-20-2022 End: 08-27-2022 Exposure to SARS-CoV-2 (event) Not sure [facility] Work Phone: Start: 04-19-2022 End: 05-17-2025 Alcohol intake Lifetime non-drinker (finding) [facility] Start: 04-19-2022 History SDOH Alcohol Frequency 1 [facility] Start: 10-16-2011 End: 07-09-2022 Tobacco use and exposure Smokeless tobacco non-user [facility] Start: 1970 Sex Assigned At Male [facility] Start: 04-05-2023 End: 11-10-2023 History of Social function [facility] Start: 04-05-2023 End: 11-10-2023 Tobacco use panel [facility] Start: 08-31-2012 National Score (1-10 0), lower number is lower risk 66 [facility] Are you now , , , , never or living with a partner? Living with partner [facility] Do you feel stress - tense, restless, nervous, or anxious, or unable to sleep at night because your mind is troubled all the time - these days [OSQ] To some extent [facility] Start: 12-15-2024 End: 01-15-2025 Sex Male (finding) [facility] Medical Equipment Procedure Code Equipment Code Equipment Origin al Text Equipment Identifier Dates Stent Zimmon 5fr Pigtail Curve Blue Polyethylene 7cm Pancreatic Tapered Tip - [id number] Start: 06-07-2022 Stent 7fr Duoden al Bend Plastic 10cm Biliary Temporary Rapid Exchange - [id number] Start: 06-07-2022 Goals Date Patient Goal Desired Activity /State Functional Status Date Assessment Result Facility 12-16-2024 Functional status Up ad ava;Bath room Privilege [facility] Work Phone: 11-29-2024 Functional status Ambulates;Up ad ava [facility] Work Phone: 01-25-2014 Are you deaf, or do you have serious difficulty hearing No 01/25/2014 5:44 PM Amanda Bird RN No [facility] 01-25-2014 Are you blind, or do you have serious difficulty seeing, even when wearing glasses No 01/25/2014 5:44 PM Amanda Bird RN No [facility] 01-25-2014 Do you have serious difficulty walking or climbing stairs No 01/25/2014 5:44 PM Amanda Bird RN No [facility] 01-25-2014 Do you have difficul ty dressing or bathing No 01/25/2014 5:44 PM Amanda Bird RN No [facility] 01-25-2014 Because of a physica l, mental, or emotional condition, do you have difficulty doing errands alone such as visiting a physician's office or shopping No 01/25/2014 5:44 PM EDT Amanda Belle RN No [facility] Mental Status Date Assessment Result Facility 04-12-2025 Cognitive function Level Of Cons ciousness Awake;Alert;Appropriate;Fol lows Commands [facility] Work Phone: 03-28-2025 Cognitive function Level Of Cons ciousness Awake;Alert;Appropriate;Fol lows Commands [facility] Work Phone: 01-15-2025 Cognitive function Level Of Cons ciousness Awake;Alert;Appropriate;Fol lows Commands [facility] Work Phone: 12-16-2024 Cognitive function Appropriate [facility] Work Phone: 12-15-2024 Cognitive function Level Of Cons ciousness Awake;Alert;Appropriate;Fol lows Commands [facility] Work Phone: 11-29-2024 Cognitive function Demonstrates ability to follow instructions/comprehend [facility] Work Phone: 11-29-2024 Cognitive function Appropriate;Cooperativ e [facility] Work Phone: 01-25-2014 Because of a physica l, mental, or emotional condition, do you have serious difficulty concentrating, remembering, or making decisions No 01/25/2014 5:44 PM EDT Amanda Belle RN No [facility] Clinical Notes 01-17-2011 to 05-19-2025 Telephone Encounter - Lucy Juares - 05/19/2025 2:20 PM EDTTelephone Encounter - Lucy Juares - 05/19/2025 2:20 PM EDTTelephone Encounter - Ana Rosa Rossi LPN - 04/30/2025 9:13 AM EDT Note Date & Type Note Facility 05-19-2025 Telephone encounter Note Done [facility] Work Phone: 05-19-2025 Miscellaneous Notes Done Pt is a 4hr hydration. Please adjust schedule accordingly. S/b scheduled prior to lunch. Thank you! documented in this encounter [facility] 05-19-2025 Telephone encounter Note Pt is a 4hr hydration. Please adjust schedule accordingly. S/b scheduled prior to lunch. Thank you! [facility] 04-30-2025 Telephone encounter Note Scheduled with patient. Start email sent Pharm, please advise how often patient is to schedule, or PRN. Thank you [facility] Work Phone: 04-30-2025 Miscellaneous Notes Scheduled with patient. Start email sent Pharm, please advise how often patient is to schedule, or PRN. Thank you [employer] message asking if he checked with work so he could IVF scheduled. Ana Rosa Rossi LPN Patient called requesting information about treatment. He will call back to schedule once he checks with work schedule Called to schedule patient and he requested to call back tomorrow due to on the road at this time Amanda Celestin Therapy plan was reviewed and patient is good to go for IVF at Hem/Onc department Filed an order but not sure if did correctly Check with hem/onc about setting up a therapy plan for IVF as noted below. Message to the primary care team : I saw Mr. Burrows today. Patient and expressed concern regarding frequent ED visits for IV fluids. Patients with chronic ileostomy losses often have to get IV fluids at infusion center every 2 to 3 weeks. This would prevent frequent ED visits for dehydration. At your local [facility] you can place standing orders for a liter of normal saline to be given over 4-5 hours every 2 to 3 weeks. I have already ordered renal labs to be done every other week for now. Thank you. documented in this encounter [facility] 04-30-2025 Telephone encounter Note [employer] message asking if he checked with work so he could IVF scheduled. Ana Rosa Rossi LPN [facility] 04-28-2025 Telephone encounter Note I already took care of orders to get as needed IVF through the hem/onc department. There are Therapy Plan standing orders Veriify who patient is to call to get scheduled there [facility] 04-28-2025 Miscellaneous Notes I already took care of orders to get as needed IVF through the hem/onc department. There are Therapy Plan standing orders Veriify who patient is to call to get scheduled there Attempted to reach patient. Left VM with Dr. Xiao's message and advised that he call back with any further questions. Please inform patient that his PCP will be arranging for IV fluids. Patient calling to clarify if he is to receive IV hydration orders and by which provider. He states he was under the impression that he would have IV hydration orders placed for him. Reports he received a call yesterday from someone who was going to assist him in scheduling the IV appt but there was no order. Informed pt that message would be sent to PCP and Nephrology to advise. Natalie Escalante RN documented in this encounter [facility] 04-28-2025 Telephone encounter Note Attempted to reach patient. Left VM with Dr. Xiao's message and advised that he call back with any further questions. [facility] 04-27-2025 Telephone encounter Note Please inform patient that his PCP will be arranging for IV fluids. [facility] 04-27-2025 Telephone encounter Note Patient calling to clarify if he is to receive IV hydration orders and by which provider. He states he was under the impression that he would have IV hydration orders placed for him. Reports he received a call yesterday from someone who was going to assist him in scheduling the IV appt but there was no order. Informed pt that message would be sent to PCP and Nephrology to advise. Natalie Escalante RN [facility] 04-26-2025 Telephone encounter Note Patient called requesting information about treatment. He will call back to schedule once he checks with work schedule [facility] 04-26-2025 Telephone encounter Note Called to schedule patient and he requested to call back tomorrow due to on the road at this time Amanda Celestin [facility] 04-23-2025 Telephone encounter Note Therapy plan was reviewed and patient is good to go for IVF at Hem/Onc department [facility] 04-22-2025 Telephone encounter Note Filed an order but not sure if did correctly T [facility] 04-21-2025 Telephone encounter Note Check with hem/onc about setting up a therapy plan for IVF as noted below. [facility] 04-19-2025 Instructions Harjeet Bernard MD - 04/19/2025 12:16 PM EDT - Finish your 10-day course of Augmentin for your leg cellulitis as prescribed by the ER. - Increase omeprazole to 40 mg once daily (a 90-day supply with 3 refills has been sent to [facility]); take it at the same time each day. - Continue the sodium bicarbonate (bicarb) you ve been taking to help manage reflux. - Wear lightweight, elastic compression stockings (not overly tight) when possible to help reduce leg swelling. - Elevate your legs at night to aid fluid return and decrease lower-leg swelling. - Maintain good fluid intake throughout the day to support kidney function and prevent dehydration. - Avoid eating large meals or drinking cold beverages within 2-3 hours before bedtime to reduce reflux. - Continue using a wedge pillow or elevate the head of your bed to keep stomach acid from moving upward. - Pay attention to any foods or drinks (for example, caffeine, tomatoes, onions) that seem to trigger your reflux and avoid them as needed. - Our office will contact you soon to schedule an outpatient echocardiogram to assess your heart function. documented in this encounter [facility] 04-19-2025 Note HNO ID: [id number] Author: HARJEET BERNARD MD Service: ? Author Type: Physician Type: Progress Notes Filed: 04/19/2025 23:11 Note Text: This note was created using [employer] eWater[employer]. Subjective Dov Burrows is a 54 year old male. SUBJECTIVE: Triny Burrows is a 54-year-old male with a history of CKD, presenting for follow-up on cellulitis of the left lower extremity and associated symptoms. Triny reports improvement in cellulitis of the left lower extremity, with significant reduction in swelling over the past 24 hours. Initially, the swelling extended from the knee to the ankle, but it is now localized around the ankle area. He was prescribed a 10-day course of Augmentin by the ER on the , which he has been taking as directed. He denies any new symptoms or changes over the past week. He also reports episodes of nausea and anorexia, particularly at night, which he describes as a flu-like feeling. These episodes are intermittent and not associated with any specific triggers. He denies heartburn, but notes a weak voice during these episodes. He is currently taking omeprazole 20 mg daily at lunchtime and has a history of an esophagogastroduodenoscopy in 2021, which was unremarkable. He denies dysphagia, constipation, or diarrhea. He reports that his ileostomy output has improved with the use of loperamide, achieving a more consistent output. Triny has a history of CKD, with a recent creatinine level of 1.94, down from a previous high of 3.0. He was recently hospitalized for dehydration, during which his creatinine level was 4.0. He reports feeling weak and having low energy, which he attributes to his recent illness and dehydration. He denies any new shortness of breath or other symptoms. 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 amoxicillin-clavulanate potassium (AUGMENTIN) 875-125 mg per tablet Take 875 mg by mouth two times a day. sodium bicarbonate 650 mg tablet Take 1 tablet by mouth twice a day diphenoxylate-atropine (LOMOTIL) 2.5-0.025 mg per tablet Take 2 tablets by mouth four times daily for 90 days. loperamide (IMODIUM) 2 mg cap(s) Take 2 capsules by mouth four times daily. buPROPion SR (WELLBUTRIN SR) 150 mg 12 hr tablet Take 1 tablet by mouth two times a day. fluvoxaMINE ER (LUVOX CR) 150 mg capsule Take 1 capsule by mouth daily at bedtime. ondansetron (ZOFRAN) 8 mg tablet Take 1 tablet by mouth every 12 hours as needed for nausea/vomiting. CPAP Continue Auto PAP @ 5-20 cm [...] this visit. Review of Systems Objective BP 100/60 Pulse 76 Temp 36.1 ?C (97 ?F) (Left Tympanic) Resp 16 Wt 104 kg (229 lb 4.5 oz) BMI 30.25 kg/m? Physical Exam Vitals reviewed. Constitutional: Appearance: Normal appearance. Eyes: Conjunctiva/sclera: Conjunctivae normal. Cardiovascular: Rate and Rhythm: Normal rate and regular rhythm. Heart sounds: Normal heart sounds. Pulmonary: Effort: Pulmonary effort is normal. Breath sounds: Normal breath sounds. Musculoskeletal: Right lower le+ Pitting Edema present. Left lower le+ Pitting Edema present. Legs: Skin: General: Skin is warm and dry. Findings: Erythema (Left donavan medial ahuja) present. Neurological: General: No focal deficit present. Mental Status: He is alert and oriented to person, place, and time. Psychiatric: Attention and Perception: Attention and perception normal. Mood and Affect: Affect normal. Mood is anxious. Speech: Speech normal. Behavior: Behavior normal. Thought Content: Thought content normal. Cognition and Memory: Cognition and memory normal. Judgment: Judgment normal. Assessment and Plan # Cellulitis of left lower extremity (L03.116) - Cellulitis is resolving with current treatment of Augmentin; completed 10-day course. - Edema and erythema have decreased, now localized around the ankle area. - Continue monitoring for any signs of worsening infection. # Bilateral lower extremity edema (R60.0) - Edema is improving; advised use of mild compression stockings to aid in reducing swelling. - Ordered echocardiogram to evaluate cardiac function and rule out heart failure as a contributing factor. # LPRD (laryngopharyngeal reflux disease) (K21.9) - Symptoms include hoarseness and nausea, particularly at night. - Increased omepr (more content not included)... [facility] 04-19-2025 History of Present illness Narrative Images from the original note were not included. This note was created using [employer]unch. Subjective Dov Burrows is a 54 year old male. SUBJECTIVE: Triny Burrows is a 54-year-old male with a history of CKD, presenting for follow-up on cellulitis of the left lower extremity and associated symptoms. Triny reports improvement in cellulitis of the left lower extremity, with significant reduction in swelling over the past 24 hours. Initially, the swelling extended from the knee to the ankle, but it is now localized around the ankle area. He was prescribed a 10-day course of Augmentin by the ER on the , which he has been taking as directed. He denies any new symptoms or changes over the past week. He also reports episodes of nausea and anorexia, particularly at night, which he describes as a flu-like feeling. These episodes are intermittent and not associated with any specific triggers. He denies heartburn, but notes a weak voice during these episodes. He is currently taking omeprazole 20 mg daily at lunchtime and has a history of an esophagogastroduodenoscopy in 2021, which was unremarkable. He denies dysphagia, constipation, or diarrhea. He reports that his ileostomy output has improved with the use of loperamide, achieving a more consistent output. Triny has a history of CKD, with a recent creatinine level of 1.94, down from a previous high of 3.0. He was recently hospitalized for dehydration, during which his creatinine level was 4.0. He reports feeling weak and having low energy, which he attributes to his recent illness and dehydration. He denies any new shortness of breath or other symptoms. 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 amoxicillin-clavulanate potassium (AUGMENTIN) 875-125 mg per tablet Take 875 mg by mouth two times a day. sodium bicarbonate 650 mg tablet Take 1 tablet by mouth twice a day diphenoxylate-atropine (LOMOTIL) 2.5-0.025 mg per tablet Take 2 tablets by mouth four times daily for 90 days. loperamide (IMODIUM) 2 mg cap(s) Take 2 capsules by mouth four times daily. buPROPion SR (WELLBUTRIN SR) 150 mg 12 hr tablet Take 1 tablet by mouth two times a day. fluvoxaMINE ER (LUVOX CR) 150 mg capsule Take 1 capsule by mouth daily at bedtime. ondansetron (ZOFRAN) 8 mg tablet Take 1 tablet by mouth every 12 hours as needed for nausea/vomiting. CPAP Continue Auto PAP @ 5-20 cm [...] this visit. Review of Systems Objective BP 100/60 Pulse 76 Temp 36.1 C (97 F) (Left Tympanic) Resp 16 Wt 104 kg (229 lb 4.5 oz) BMI 30.25 kg/m Physical Exam Vitals reviewed. Constitutional: Appearance: Normal appearance. Eyes: Conjunctiva/sclera: Conjunctivae normal. Cardiovascular: Rate and Rhythm: Normal rate and regular rhythm. Heart sounds: Normal heart sounds. Pulmonary: Effort: Pulmonary effort is normal. Breath sounds: Normal breath sounds. Musculoskeletal: Right lower le+ Pitting Edema present. Left lower le+ Pitting Edema present. Legs: Skin: General: Skin is warm and dry. Findings: Erythema (Left donavan medial ahuja) present. Neurological: General: No focal deficit present. Mental Status: He is alert and oriented to person, place, and time. Psychiatric: Attention and Perception: Attention and perception normal. Mood and Affect: Affect normal. Mood is anxious. Speech: Speech normal. Behavior: Behavior normal. Thought Content: Thought content normal. Cognition and Memory: Cognition and memory normal. Judgment: Judgment normal. Assessment and Plan # Cellulitis of left lower extremity (L03.116) - Cellulitis is resolving with current treatment of Augmentin; completed 10-day course. - Edema and erythema have decreased, now localized around the ankle area. - Continue monitoring for any signs of worsening infection. # Bilateral lower extremity edema (R60.0) - Edema is improving; advised use of mild compression stockings to aid in reducing swelling. - Ordered echocardiogram to evaluate cardiac function and rule out heart failure as a contributing factor. # LPRD (laryngopharyngeal reflux disease) (K21.9) - Symptoms include hoarseness and nausea, particularly at night. - Increased omeprazole dosage to 40 mg daily; prescription sent to [facility] with 3 refills. - Advised patient to avoid eating or drinking 2-3 hours before bedtime and to elevate the head of the bed. - Monitor for improvement in symptoms; consider GI referral if symptoms persist. # Stage 3b chronic kidney disease (HCC) (N18.32) # Acute renal insufficiency (N28.9) - Recent labs show improvement in kidney function; creatinine decreased to 1.94 mg/dL, GFR improved to 41 mL/min/1.73m . - Acute renal insufficiency likely secondary to dehydration; patient is rehydrated. - Continue current management and monitor renal function. # Elevated brain natriuretic peptide (BNP) level (R79.89) - Elevated BNP may be due to renal insufficiency or potential cardiac issues. - Ordered echocardiogram to assess cardiac function. # Superficial phlebitis and thrombophlebitis of left lower extremity (I80.02) - Diagnosed with superficial thrombophlebitis of the greater saphenous vein. - Continue monitoring; no additional anticoagulation therapy initiated at this time. Harjeet Bernard MD Recording using Real Time Content software for draft documentation of the visit was discussed with the patient/authorized entry level account representative; all questions welcomed and answered. Patient/authorized entry level account representative agreed to proceed documented in this encounter [facility] 04-15-2025 History of Present illness Narrative Radiology Service Progress Note PATIENT NAME: Dov Burrows DATE OF SERVICE: April 15, 2025 TIME: 4:06 PM PATIENT IDENTITY VERIFICATION COMPLETED USING TWO (2) IDENTIFIERS: Name and Date of confirmed by patient verbally. FALL SCREENING: Has the patient had 2 falls in the last year or 1 fall with injury or currently using an Ambulatory Assistive Device (Walker, Cane, Wheelchair, Crutches, etc.)? No PATIENT GENDER DATA: Assigned male at PATIENT RELEVANT IMPLANT DATA REVIEWED: Not Applicable PATIENT PRESENTS WITH AN IMPLANTABLE OR ATTACHED LEGAL WORD PROCESSOR: No RADIOLOGY DEPARTMENT: Ultrasound PERIPHERAL IV DATA: Not applicable SIGNED BY: Callie Gordon RDMS RVT April 15, 2025 4:06 PM documented in this encounter [facility] 04-15-2025 Note HNO ID: [id number] Author: CALLIE GORDON RDMS Service: ? Author Type: Tin Flopper Type: Progress Notes Filed: 04/15/2025 16:07 Note Text: Radiology Service Progress Note PATIENT NAME: Dov Burrows DATE OF SERVICE: April 15, 2025 TIME: 4:06 PM PATIENT IDENTITY VERIFICATION COMPLETED USING TWO (2) IDENTIFIERS: Name and Date of confirmed by patient verbally. FALL SCREENING: Has the patient had 2 falls in the last year or 1 fall with injury or currently using an Ambulatory Assistive Device (Walker, Cane, Wheelchair, Crutches, etc.)? No PATIENT GENDER DATA: Assigned male at PATIENT RELEVANT IMPLANT DATA REVIEWED: Not Applicable PATIENT PRESENTS WITH AN IMPLANTABLE OR ATTACHED LEGAL WORD PROCESSOR: No RADIOLOGY DEPARTMENT: Ultrasound PERIPHERAL IV DATA: Not applicable SIGNED BY: Callie Gordon RDMS RVJr April 15, 2025 4:06 PM [facility] 04-13-2025 Telephone encounter Note Sd Dr. Arana saw Triny today for CKD stage IV. I understand that he might be getting CAT scan with IV contrast for surveillance of his mucinous tumor.Just wanted to express my concern as exposure to IV contrast at his current kidney function would be associated with an increased risk of contrast nephropathy. If it cannot be avoided, he would need IV hydration pre and postprocedure. Thank you [facility] 04-13-[address] Arana saw Triny today for CKD stage IV. I understand that he might be getting CAT scan with IV contrast for surveillance of his mucinous tumor.Just wanted to express my concern as exposure to IV contrast at his current kidney function would be associated with an increased risk of contrast nephropathy. If it cannot be avoided, he would need IV hydration pre and postprocedure. Thank you documented in this encounter [facility] 04-13-2025 Telephone encounter Note Message to the primary care team : I saw Mr. Burrows today. Patient and expressed concern regarding frequent ED visits for IV fluids. Patients with chronic ileostomy losses often have to get IV fluids at infusion center every 2 to 3 weeks. This would prevent frequent ED visits for dehydration. At your local [facility] you can place standing orders for a liter of normal saline to be given over 4-5 hours every 2 to 3 weeks. I have already ordered renal labs to be done every other week for now. Thank you. [facility] 04-13-2025 Instructions Nelly Xiao I, MD - 04/13/2025 1:07 PM EDT Avoid Advil ,Ibuprofen(Motrin),Aleve(Naproxen),Muna oxicam and other pain/arthritis medications called NSAIDS. You can take Tylenol if necessary. Avoid intravenous contrast with imaging studies if possible. If this is needed, please have the ordering provider contact nephrology Start sodium bicarbonate 650 mg one tablet twice a day Please stop by the lab 04/16/25 to have labs done. Do labs every other week x 3 Please schedule first available appointment for a kidney ultrasound that has been ordered for you. Have blood work done in 2 months . Follow up with / Ford Hutchins CNP in 2 months. Please have you lab work done one week prior to your appointment. Please bring a complete list of your medications, the dosage and times taken- to every visit. We want to know that ALL of your concerns/needs relevant to this visit- were met today and that we have hopefully exceeded your expectations. If not-please let us know how we can improve our service to you by calling [phone] You may be receiving a survey regarding your care today. If you do, please take a few minutes to fill it out and send it back. It would be greatly appreciated. documented in this encounter [facility] 04-13-2025 History of Present illness Narrative Images from the original note were not included. [facility] NEPHROLOGY & HYPERTENSION [facility] NEPHROLOGY. Name:Dov Burrows The patient, Dov Burrows's, identity was verified by name and MRN. Pt is accompanied in the office today by his significant other-Erika Consultation requested by Dr. Denise ,for my opinion regarding elevated serum creatinine-from acute renal failure superimposed on CKD stage 4. My final recommendations will be communicated back to the requesting physician by way of shared Medical record or letter . 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 Review of records shows his serum cr has been abnormal since November 2024 Baseline serum cr: 2.0 to 2.5 mg/dL He has had multiple hospitalizations over the past 6 months-mostly with dehydration and resulting [place]. The highest creatinine level noted on 03/22/2025 was 4.09 mg/dL. No H/O frequent bladder infections or kidney stones in the past. Denies regular NSAID use but has taken Advil off-and-on. 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 Underwent extensive debulking and received one round of chemo- per patient. Seen in ED last night for bilateral lower extremity swelling and erythema which started over the weekend. DVT was ruled out. Was diagnosed with cellulitis and discharged on Augmentin. Denies CP, SOB, orthopnea, PND or palpitations. Denies progressive leg edema No fever, chills or dizziness. He reports episodes of having no appetite and a sensation of fullness lasting 3-5 days, followed by periods of normal eating. These symptoms have been ongoing since November. He has been managing his ileostomy output with loperamide, taking up to 16 tablets a day as needed to control watery output. He uses Powerade and water to maintain hydration. No nausea, emesis, abdominal pain. No dysuria, gross hematuria or new flank pain. Denies generalized skin rash or arthralgias. Detailed review of systems is as below. I have reviewed current medications and allergies Current Outpatient Medications Medication Sig amoxicillin-clavulanate potassium (AUGMENTIN) 875-125 mg per tablet Take 875 mg by mouth two times a day. diphenoxylate-atropine (LOMOTIL) 2.5-0.025 mg per tablet Take 2 tablets by mouth four times daily for 90 days. loperamide (IMODIUM) 2 mg cap(s) Take 2 capsules by mouth four times daily. omeprazole (PRILOSEC) 20 mg capsule Take 1 capsule by mouth once daily. buPROPion SR (WELLBUTRIN SR) 150 mg 12 hr tablet Take 1 tablet by mouth two times a day. fluvoxaMINE ER (LUVOX CR) 150 mg capsule Take 1 capsule by mouth daily at bedtime. ondansetron (ZOFRAN) 8 mg tablet Take 1 tablet by mouth every 12 hours as needed for nausea/vomiting. CPAP Continue Auto PAP @ 5-20 cm of water with humidification. Mask (per patient preference) optional chin strap (if indicated) , filters, tubing, humidifier and lifetime supplies. AMBROSE G47.33 ferrous sulfate 325 mg (65 mg iron) tablet Take 1 tablet by mouth every other day. multivitamin tablet Take 1 tablet by mouth once daily. sodium bicarbonate 650 mg tablet Take 1 tablet by mouth twice a day No current facility-administered medications for this visit. 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 Other and unspecified hyperlipidemia Other malaise and fatigue Unspecified sleep apnea PAST SURGICAL HISTORY Procedure Laterality Date COLONOSCOPY SCREENING 04/26/2022 [facility]IC[facility] INJ 04/26/2022 PAST SURGICAL HISTORY OF 05/29/2022 CRS/HIPEC SOCIAL HISTORY: Social History Tobacco Use Smoking status: Never Smokeless tobacco: Never Vaping Use Vaping status: Never Used Substance Use Topics Alcohol use: Never Drug use: Never Employer And Job Title: None on file Years Of Education Completed: Not specified Marital Status: Single FAMILY HISTORY: FAMILY HISTORY Problem Relation Age of Onset Dementia Mother Diabetes Father Pancreatic Cancer Father REVIEW OF SYSTEMS: GENERAL: no fever, chills or weight loss HEENT: no blurred vision, MOREJON or oral lesions RESP: no SOB, cough, or pleuritic chest pain CARDIAC: no chest pain, palpitations or leg edema GASTROINTESTINAL: See HPI GENITO-URINARY: no dysuria or gross hematuria PERIPHERAL VASCULAR: no complaints stated RHEUMATOLOGICAL: no complaints stated SKIN: no generalized skin rash or ulcers INFECTIOUS DISEASES: no complaints stated NEUROLOGICAL: no focal weakness or seizures PSYCHIATRIC: History of depressive illness,anxiety disorder. PHYSICAL EXAMINATION: BP 94/59 Pulse 77 Temp 37.5 C (99.5 F) (Oral) Ht 185.4 cm (6' 1) Wt 98.8 kg (217 lb 13 oz) SpO2 97% BMI 28.74 kg/m Last BP 04/13/25 : 94/59 03/29/25 : 108/72 12/21/24 : 104/75 Last Wt 04/13/25 98.8 kg (217 lb 13 oz) 03/29/25 84.8 kg (186 lb 15.2 oz) 12/21/24 92.9 kg (204 lb 12.9 oz) GENERAL: alert, well appearing, and in no acute distress. SPEECH PATTERN: normal HEENT: EOMI-nonicteric sclera. NECK: supple- no carotid bruit; No JVD, LN or thyromegaly LUNGS: clear to auscultation, normal respiratory effort. HEART: RRR; Normal S1, S2, no S3,S4-No murmurs or rub. ABDOMEN: Abdomen soft, nontender, organomegaly could not be excluded ; bowel sounds present. EXTREMITIES: Bilateral leg edema with warmth, tenderness and erythema-more marked in the left lower extremity. MUSCULOSKELETAL: No spinal or CVA tenderness. NEURO: Alert and oriented 3; no focal deficit on limited exam SKIN: no generalized skin rash or ulcers PSYCHIATRY:Appropriate mood and affect REVIEWED LABS : Latest Ref Rng & Units 02/08/2025 02/23/2025 03/08/2025 03/22/2025 03/29/2025 04/05/2025 04/12/2025 CKD LAB FLOWSHEET EGFR, All Other >=60 mL/min/1.73m 33 41 32 17 29 27 38 Creatinine 0.73 - 1.22 mg/dL 2.34 1.94 2.40 4.09 2.55 2.75 2.05 BUN 9 - 24 mg/dL 24 27 33 68 74 39 29 Sodium 136 - 144 mmol/L 139 136 135 127 128 137 140 Potassium 3.7 - 5.1 mmol/L 3.5 4.1 4.2 3.8 3.5 3.1 4.3 Chloride 98 - 107 mmol/L 111 107 107 100 102 105 108 CO2 22 - 30 mmol/L 15 14 13 7 11 17 20 Glucose 74 - 99 mg/dL 75 86 72 129 117 100 87 Calcium 8.5 - 10.2 mg/dL 8.4 8.2 9.0 9.4 9.4 8.5 7.8 ] CBC, Coags, BMP, Mg, Phos Recent Labs 04/12/25 1518 NA 140 K 4.3 CHLOR 108* CO2 20* BUN 29* CREAT 2.05* GLUC 87 CA 7.8* Office urinalysis: No results found for: UGLUCPOC, UBILIPOC, UKETONPOC, USGPOC, UHBPOC, UPHPOC, UPROPOC, UUROPOC, UNITPOC, UWBCPOC, UCOLPOC, UCLARPOC ASSESSMENT: Dov Burrows is a 54-year-old male with H/O hyperlipidemia, AMBROSE on CPAP, anemia, depression/anxiety and 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 -Acute renal failure, unspecified acute renal failure type (primary encounter diagnosis): Worsening of underlying kidney disease in the setting of increased ileostomy losses. Serum creatinine increased to 2.75 mg/dL on 04/05/2025. Latest creatinine level from last night was improved back to baseline at 2.0 mg/dL. Will update labs closely for next 3 months to check trend and rule out reversible causes. -CKD (chronic kidney disease) stage 4, GFR 15-29 ml/min ([facility]): CKD in the setting of multiple comorbidities including episodes of [place] from dehydration due to increased ileostomy losses. No recent UA or renal imaging study available in [facility]. Serum creatinine has been abnormal since November 2024. No creatinine level is available between that time and April 2024 when serum creatinine was normal. Baseline creatinine has ranged between 2.0 to 2.5 mg/dL. His eGFR is consistent with stage IV CKD. Creatinine level from 04/12/2025 was improved as above. Discussed need to manage risk factors and avoid NSAIDs, IV contrast and other nephrotoxins -Hypokalemia: Secondary to GI losses-replace as needed. Potassium level in the normal range on 04/12/2025. -Hyponatremia: Chronic, mild hyponatremia secondary to impaired free water excretion. Will check serum and urine studies. Serum sodium was normal on and 04/12/2025. -Metabolic acidosis: Non-anion gap metabolic acidosis secondary to GI losses. Will start oral sodium bicarbonate. -Ileostomy present (HCC): On high dose of Imodium to prevent increased ileostomy losses. Followed by colorectal. -Anemia in stage 4 chronic kidney disease (HCC):Denies any overt losses. Hemoglobin was stable on last check; will continue to check periodically to assess need for iron/PAVAN. - Chronic kidney disease-mineral and bone disorder: Will check and update periodically calcium, phosphorus, 25-hydroxy vitamin D and intact PTH levels to assess for intervention in the setting of CKD 3. -Bilateral leg edema: With erythema and warmth-diagnosed with cellulitis and started on Augmentin. No associated shortness of breath. PLAN: Avoid Aleve,Advil,Naproxen,Indocin and other related medications called NSAIDS. Can take Tylenol if necessary. Avoid IV contrast Start oral sodium bicarbonate 650 mg twice daily Office Visit on 04/13/25 KIDNEY/BLADDER Do on 04/16/25: RENAL FUNCTION PANEL PTH INTACT PROTEIN / CREATININE RATIO URINALYSIS, WITH MICROSCOPIC URIC ACID HEMOGLOBIN HEMATOCRIT OSMOLALITY OSMOLALITY URINE SODIUM RANDOM URINE THYROID STIMULATING HORMONE CORTISOL, SERUM NT PRO BNP ALBUMIN BASIC METABOLIC PANEL every other week x 3 amoxicillin-clavulanate potassium (AUGMENTIN) 875-125 mg per tablet sodium bicarbonate 650 mg tablet Discussed renal status, prognosis, management of risk factors and future monitoring- at length with patient. All concerns addressed. Message sent to PCP regarding use of ambulatory infusion center for IV fluids every other week as needed and to Dr. Denise regarding use of IV contrast given advanced CKD. F/U in 2 months with Ford Thank you for the consult. SIGNATURE:Nelly Xiao MD DATE: 04/13/2025 TIME: 2:11 PM CC: REFERRING PROVIDER: Nicolasa Denise DO PRIMARY CARE PHYSICIAN: Harjeet Bernard MD This note was generated with voice recognition software and may contain errors, including spelling, grammar, syntax and misrecognition of what was dictated, that are not fully corrected documented in this encounter [facility] 04-13-2025 Note HNO ID: [id number] Author: NELLY XIAO MD Service: ? Author Type: Physician Type: Progress Notes Filed: 04/13/2025 14:14 Note Text: [facility] NEPHROLOGY AND HYPERTENSION [facility] NEPHROLOGY. Name:Dov Burrows The patient, Dov Burrows's, identity was verified by name and MRN. Pt is accompanied in the office today by his significant other-Erika Consultation requested by Dr. Denise ,for my opinion regarding elevated serum creatinine-from acute renal failure superimposed on CKD stage 4. My final recommendations will be communicated back to the requesting physician by way of shared Medical record or letter . 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 Review of records shows his serum cr has been abnormal since November 2024 Baseline serum cr: 2.0 to 2.5 mg/dL He has had multiple hospitalizations over the past 6 months-mostly with dehydration and resulting [place]. The highest creatinine level noted on 03/22/2025 was 4.09 mg/dL. No H/O frequent bladder infections or kidney stones in the past. Denies regular NSAID use but has taken Advil off-and-on. 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 Underwent extensive debulking and received one round of chemo- per patient. Seen in ED last night for bilateral lower extremity swelling and erythema which started over the weekend. DVT was ruled out. Was diagnosed with cellulitis and discharged on Augmentin. Denies CP, SOB, orthopnea, PND or palpitations. Denies progressive leg edema No fever, chills or dizziness. He reports episodes of having no appetite and a sensation of fullness lasting 3-5 days, followed by periods of normal eating. These symptoms have been ongoing since November. He has been managing his ileostomy output with loperamide, taking up to 16 tablets a day as needed to control watery output. He uses Powerade and water to maintain hydration. No nausea, emesis, abdominal pain. No dysuria, gross hematuria or new flank pain. Denies generalized skin rash or arthralgias. Detailed review of systems is as below. I have reviewed current medications and allergies Current Outpatient Medications Medication Sig amoxicillin-clavulanate potassium (AUGMENTIN) 875-125 mg per tablet Take 875 mg by mouth two times a day. diphenoxylate-atropine (LOMOTIL) 2.5-0.025 mg per tablet Take 2 tablets by mouth four times daily for 90 days. loperamide (IMODIUM) 2 mg cap(s) Take 2 capsules by mouth four times daily. omeprazole (PRILOSEC) 20 mg capsule Take 1 capsule by mouth once daily. buPROPion SR (WELLBUTRIN SR) 150 mg 12 hr tablet Take 1 tablet by mouth two times a day. fluvoxaMINE ER (LUVOX CR) 150 mg capsule Take 1 capsule by mouth daily at bedtime. ondansetron (ZOFRAN) 8 mg tablet Take 1 tablet by mouth every 12 hours as needed for nausea/vomiting. CPAP Continue Auto PAP @ 5-20 cm of water with humidification. Mask (per patient preference) optional chin strap (if indicated) , filters, tubing, humidifier and lifetime supplies. AMBROSE G47.33 ferrous sulfate 325 mg (65 mg iron) tablet Take 1 tablet by mouth every other day. multivitamin tablet Take 1 tablet by mouth once daily. sodium bicarbonate 650 mg tablet Take 1 tablet by mouth twice a day No current facility-administered medications for this visit. 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 Other and unspecified hyperlipidemia Other malaise and fatigue Unspecified sleep apnea PAST SURGICAL HISTORY Procedure Laterality Date COLONOSCOPY SCREENING 04/26/2022 EGD W/O [facility] SPEC VARICIES INJ 04/26/2022 PAST SURGICAL HISTORY OF 05/29/2022 CRS/HIPEC SOCIAL HISTORY: Social History Tobacco Use Smoking status: Never Smokeless tobacco: Never Vaping Use Vaping status: Never Used Substance Use Topics Alcohol use: Never Drug use: Never Employer And Job Title: None on file Years Of Education Completed: Not specified Marital Status: Single FAMILY HISTORY: FAMILY HISTORY Problem Relation Age of Onset Dementia Mother Diabetes Father Pancreatic Cancer Father REVIEW OF SYSTEMS: GENERAL: no fever, chills or weight loss HEENT: no blurred vision, MOREJON or oral lesions RESP: no SOB, cough, or pleuritic chest pain CARDIAC: no chest pain, palpitations or leg edema GASTROINTESTINAL: See HPI GENITO-URINARY: no dysuria or gross hematuria PERIPHERAL VASCULAR: no complaints stated RHEUMATOLOGICAL: no complaints stated SKIN: no generalized skin rash or ulcers IN (more content not included)... [facility] 04-12-2025 Radiology Diagnostic study note [facility] Imaging Services [address] [place] [address] Venous Duplex Imag/Hugh Extrem MR#: [id number] Acct: [id number] Name: DOV BURROWS Rep #: [id number] : 1970 M 54 From: Paige Hitchcock MD PCP: Dr. Harjeet Bernard MD Status: RE G ER Study:Venous Duplex Imag/Hugh Extrem Date of E xam: 04/12/25 Exam# [id number] Ordering Dr: Nathen Walker MD PROCEDURE: VENOUS DUPLEX IMAG/HUGH EXTREM 04/12/2025 REASON FOR EXAM: Bilateral lower extremity swelling TECHNIQUE: VENOUS DUPLEX IMAG/HUGH EXTREM COMPARISON: None FINDINGS: There is no intraluminal echogenicity to suggest the presence of a deep venous thrombosis. Appropriate respiratory variation, augmentation and venous compression is noted. Superficial thrombophlebitis seen within the right GSV. US/Venous Duplex Imag/Hugh Extrem IMPRESSION: Superficial thrombophlebitis seen within the right GSV. No acute occlusive deep vein thrombosis within bilateral lower extremities. Reading Location: [facility] CC: Dr. Nathen Walker MD; Dr. Harjeet Bernard MD ~ Horticultural Technical Officer: Signed [facility] 03-29-2025 Note HNO ID: [id number] Author: KELLEN SALGUERO APRN.[employer] Service: ? Author Type: Nurse Practitioner Type: Progress Notes Filed: 03/29/2025 13:43 Note Text: CC: Patient presents with: ER F/U HPI Recording using ambient AI software for draft documentation of the visit was discussed with the patient/authorized entry level account representative; all questions welcomed and answered. Patient/authorized entry level account representative agreed to proceed Triny Burrows is a 54-year-old male with a history of high-output ileostomy, CKD, and chronically elevated WBC counts, presenting for follow-up after an ER visit on 03/28 due to increased ostomy output and decreased urine output. Triny reports multiple ER visits since October for IV fluid administration due to dehydration and [place] secondary to high-output ileostomy. The most recent visit on 03/28 involved increased ostomy output and decreased urine output. Initial ER vitals included BP of 99/69 mmHg and HR of 100 bpm. Lab results showed WBC count of 18.2, Hgb of 12.1, Hct of 35.9, BUN of 77, Cr of 2.91, Na of 128, and K of 3.8. Triny received 2 liters of normal saline, with discharge vitals showing BP of 105/70 mmHg and HR of 84 bpm. No medication changes were made. 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 He is consuming Powerade with Liquid IV to maintain hydration. He experienced nausea and emesis last evening. He denies cephalalgia, blurred vision, disorientation, confusion, or lower extremity edema. He reports normal urine output today and urine is clear. Triny is on Lomotil and dicyclomine to manage high-output ileostomy, which he reports has significantly reduced output. He has an upcoming nephrology appointment on 04/13 and is currently undergoing weekly lab tests. Review of Systems Constitutional: Negative for chills, diaphoresis, fever and unexpected weight change. Respiratory: Negative for cough, shortness of breath and wheezing. Cardiovascular: Negative for chest pain, palpitations and leg swelling. Neurological: Negative for syncope and weakness. 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 MEDICATIONS diphenoxylate-atropine (LOMOTIL) 2.5-0.025 mg per tablet Take 2 tablets by mouth four times daily for 90 days. loperamide (IMODIUM) 2 mg cap(s) Take 2 capsules by mouth four times daily. dicyclomine (BENTYL) 20 mg tablet Take 20 mg by mouth four times daily. omeprazole (PRILOSEC) 20 mg capsule Take 1 capsule by mouth once daily. buPROPion SR (WELLBUTRIN SR) 150 mg 12 hr tablet Take 1 tablet by mouth two times a day. fluvoxaMINE ER (LUVOX CR) 150 mg capsule Take 1 capsule by mouth daily at bedtime. ondansetron (ZOFRAN) 8 mg tablet Take 1 tablet by mouth every 12 hours as needed for nausea/vomiting. CPAP Continue Auto PAP @ 5-20 cm of water with humidification. Mask (per patient preference) optional chin strap (if indicated) , filters, tubing, humidifier and lifetime supplies. AMBROSE G47.33 ferrous sulfate 325 mg (65 mg iron) tablet Take 1 tablet by mouth every other day. multivitamin tablet Take 1 tablet by mouth once daily. FAMILY HISTORY Problem Relation Age of Onset Dementia Mother Diabetes Father Pancreatic Cancer Father Social History Tobacco Use Smoking status: Never Smokeless tobacco: Never Vaping Use Vaping status: Never Used Substance Use Topics Alcohol use: Never Drug use: Never BP 108/72 Pulse 88 Temp 36.4 ?C (97.6 ?F) (Temporal) Resp 18 Wt 84.8 kg (186 lb 15.2 oz) BMI 24.67 kg/m? Physical Exam Vitals reviewed. Constitutional: Appearance: Normal appearance. HENT: Mouth/Throat: Mouth: Mucous membranes are moist. Eyes: Conjunctiva/sclera: Conjunctivae normal. Cardiovascular: Rate and Rhythm: Normal rate and regular rhythm. Heart sounds: Normal heart sounds. No murmur heard. Pulmonary: Effort: Pulmonary effort is normal. Breath sounds: Normal breath sounds. No wheezing, rhonchi or rales. Skin: General: Skin is warm and dry. Coloration: Skin is not pale. Neurological: Mental Status: He is alert. Psychiatric: Mood and Affect: Mood normal. Health maintenance reviewed with patient: Hepatitis B Vaccine(1 of 3 - 19+ 3-dose series) Never done Shingrix Vaccine(1 of 2) Never done Meningococcal B Vaccine(2 of 5 - Increased Risk Bexsero 3-dose series) due on 07/17/2022 Meningococcal Conjugate Vaccine(2 - Risk 2-dose series) due on 08/13/2022 Covid-19 Vaccine( season) due on (more content not included)... [facility] 03-29-2025 History of Present illness Narrative CC: Patient presents with: ER F/U HPI Recording using ambient [employer] software for draft documentation of the visit was discussed with the patient/authorized entry level account representative; all questions welcomed and answered. Patient/authorized entry level account representative agreed to proceed Triny Burrows is a 54-year-old male with a history of high-output ileostomy, CKD, and chronically elevated WBC counts, presenting for follow-up after an ER visit on 03/28 due to increased ostomy output and decreased urine output. Triny reports multiple ER visits since October for IV fluid administration due to dehydration and [place] secondary to high-output ileostomy. The most recent visit on 03/28 involved increased ostomy output and decreased urine output. Initial ER vitals included BP of 99/69 mmHg and HR of 100 bpm. Lab results showed WBC count of 18.2, Hgb of 12.1, Hct of 35.9, BUN of 77, Cr of 2.91, Na of 128, and K of 3.8. Triny received 2 liters of normal saline, with discharge vitals showing BP of 105/70 mmHg and HR of 84 bpm. No medication changes were made. 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 He is consuming Powerade with Liquid IV to maintain hydration. He experienced nausea and emesis last evening. He denies cephalalgia, blurred vision, disorientation, confusion, or lower extremity edema. He reports normal urine output today and urine is clear. Triny is on Lomotil and dicyclomine to manage high-output ileostomy, which he reports has significantly reduced output. He has an upcoming nephrology appointment on 04/13 and is currently undergoing weekly lab tests. Review of Systems Constitutional: Negative for chills, diaphoresis, fever and unexpected weight change. Respiratory: Negative for cough, shortness of breath and wheezing. Cardiovascular: Negative for chest pain, palpitations and leg swelling. Neurological: Negative for syncope and weakness. 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 MEDICATIONS diphenoxylate-atropine (LOMOTIL) 2.5-0.025 mg per tablet Take 2 tablets by mouth four times daily for 90 days. loperamide (IMODIUM) 2 mg cap(s) Take 2 capsules by mouth four times daily. dicyclomine (BENTYL) 20 mg tablet Take 20 mg by mouth four times daily. omeprazole (PRILOSEC) 20 mg capsule Take 1 capsule by mouth once daily. buPROPion SR (WELLBUTRIN SR) 150 mg 12 hr tablet Take 1 tablet by mouth two times a day. fluvoxaMINE ER (LUVOX CR) 150 mg capsule Take 1 capsule by mouth daily at bedtime. ondansetron (ZOFRAN) 8 mg tablet Take 1 tablet by mouth every 12 hours as needed for nausea/vomiting. CPAP Continue Auto PAP @ 5-20 cm of water with humidification. Mask (per patient preference) optional chin strap (if indicated) , filters, tubing, humidifier and lifetime supplies. AMBROSE G47.33 ferrous sulfate 325 mg (65 mg iron) tablet Take 1 tablet by mouth every other day. multivitamin tablet Take 1 tablet by mouth once daily. FAMILY HISTORY Problem Relation Age of Onset Dementia Mother Diabetes Father Pancreatic Cancer Father Social History Tobacco Use Smoking status: Never Smokeless tobacco: Never Vaping Use Vaping status: Never Used Substance Use Topics Alcohol use: Never Drug use: Never BP 108/72 Pulse 88 Temp 36.4 C (97.6 F) (Temporal) Resp 18 Wt 84.8 kg (186 lb 15.2 oz) BMI 24.67 kg/m Physical Exam Vitals reviewed. Constitutional: Appearance: Normal appearance. HENT: Mouth/Throat: Mouth: Mucous membranes are moist. Eyes: Conjunctiva/sclera: Conjunctivae normal. Cardiovascular: Rate and Rhythm: Normal rate and regular rhythm. Heart sounds: Normal heart sounds. No murmur heard. Pulmonary: Effort: Pulmonary effort is normal. Breath sounds: Normal breath sounds. No wheezing, rhonchi or rales. Skin: General: Skin is warm and dry. Coloration: Skin is not pale. Neurological: Mental Status: He is alert. Psychiatric: Mood and Affect: Mood normal. Health maintenance reviewed with patient: Hepatitis B Vaccine(1 of 3 - 19+ 3-dose series) Never done Shingrix Vaccine(1 of 2) Never done Meningococcal B Vaccine(2 of 5 - Increased Risk Bexsero 3-dose series) due on 07/17/2022 Meningococcal Conjugate Vaccine(2 - Risk 2-dose series) due on 08/13/2022 Covid-19 Vaccine(2023- season) due on 05/31/2024 Influenza Vaccine(Season Ended) due on 05/31/2025 Diabetes Screening due on 03/22/2028 DTaP,Tdap,Td Vaccine(2 - Td or Tdap) due on 03/25/2028 Lipid Screening due on 12/12/2029 Hib Vaccine Completed Pneumococcal Vaccine: 50+ Completed Colorectal Cancer Screening Discontinued Hepatitis C Screening Discontinued HIV Screening Discontinued I have reviewed the patient s records from [facility] including diagnostic testing performed, their discharge medications, and my assessment and plan with the patient and any family members present at today s visit. Labs: (03/28) - WBC: 18.2 10^3/ L - Hemoglobin: 12.1 g/dL - Hematocrit: 35.9% - BUN: 77 mg/dL - Creatinine: 2.91 mg/dL - Sodium: 128 mmol/L - Potassium: 3.8 mmol/L (03/22) - Creatinine: 4.09 mg/dL Assessment/Plan 1. Hyponatremia (E87.1) [place] (acute kidney injury) (N17.9) Dehydration (E86.0) Recent ER visit on 03/28 due to increased ileostomy output and decreased urine output. Labs showed sodium 128 mEq/L, BUN 77 mg/dL, and creatinine 2.91 mg/dL. Received 2 liters of normal saline in the ER. Chronic issues with dehydration and [place] secondary to high output ileostomy. Patient experiences fatigue, especially when working in heat, despite oral hydration with Powerade and Liquid IV. - Ordered stat BMP to assess current electrolyte status and renal function post-IV fluid administration. - Discussed the importance of maintaining adequate hydration with electrolyte-rich fluids. - Advised against standing orders for IV fluids without regular monitoring. - Will follow up with lab results and discuss further management based on findings. 2. High output ileostomy (HCC) (R19.8) Chronic high output ileostomy managed with Lomotil and dicyclomine, which have helped reduce output. Contributes to recurrent dehydration and electrolyte imbalances. - Continue current medications to manage ileostomy output. - Monitor fluid intake and output closely. 3. Stage 3b chronic kidney disease (HCC) (N18.32) Chronic kidney disease with baseline creatinine previously recorded at 4.09 mg/dL. Scheduled to see [facility] on 04/13 for further evaluation. - Continue weekly labs as previously recommended by Dr. Bernard. - Await nephrology consultation for comprehensive renal assessment and management plan. Prescription instructions reviewed with patient as applicable. Potential red flag symptoms discussed with the patient. Reviewed appropriate action plan to take if red flag symptoms occur. Patient agreeable to treatment plan. Kellen Salguero APRN.[employer] documented in this encounter [facility] 03-29-2025 Instructions Kellen Salguero APRN.[employer] - 03/29/2025 1:34 PM EDT We discussed your recent emergency room visit and follow-up care: - You were seen in the ER on 03/28 for increased output from your ileostomy and decreased urine output, resulting in dehydration and acute kidney injury ([place]). You received 2 liters of IV fluids, and your blood pressure and heart rate improved before discharge. - Your lab results from the ER showed elevated BUN (77), creatinine (2.91), and low sodium (128). These findings are consistent with dehydration and kidney strain. Your creatinine level was improved compared to a prior result of 4.09 on 03/22. - You reported feeling better after the ER visit but noted fatigue and worsening symptoms when working outside in the heat. You are continuing to monitor your weekly labs as recommended by Dr. Bernard. - Continue drinking electrolyte-rich fluids such as Powerade and Liquid IV to maintain hydration. Avoid plain water as it may dilute your electrolytes further. - Monitor for symptoms of dehydration, including fatigue, nausea, dizziness, or dark urine, and seek medical attention if these occur. We discussed your upcoming nephrology appointment: - You have an appointment with a kidney specialist on April 13 to evaluate your chronic kidney disease and recurrent dehydration. This will help identify any underlying kidney issues contributing to your symptoms. - The [facility] may order additional tests, such as blood work and a 24-hour urine collection, to better assess your kidney function. We discussed next steps for monitoring and follow-up: - I ordered a stat basic metabolic panel (BMP) today to reassess your kidney function and electrolyte levels after receiving IV fluids. I will contact you with the results once they are available. - I will also discuss your case with Dr. Bernard to explore whether standing orders for IV fluids might be appropriate in the future, though this is not typically done without further evaluation. Please continue your current medications and hydration strategies. If your symptoms worsen or you experience new concerning symptoms, such as confusion, severe fatigue, or significant changes in urine output, please contact our office or seek immediate medical care. documented in this encounter [facility] 03-28-2025 Discharge summary [facility] 03-28-2025 Discharge summary Note Date/Time March 28, 2025 3:28pm [facility] Medical Records Department [address] [place] [address] Emergency Department Summary 03/28/25 MR#: [id number] Acct: [id number] Name: DOV BURROWS Rep #:[id number] : 1970 54 From: Hesham Jacobson MD PCP: Dr. Harjeet Bernard MD Status:RE G ER Location: ED HPI History of Present Illness Chief Complaint: General Illness Detail of Chief Complaint: Concern for dehydration. 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 He has had history of high output ileostomy. And has had issues with acute kidney injury and chronic kidney disease. He is concerned due to theheat and the output of his ostomy and is not keeping up with his fluids. Deniesabdominal pain. Denies nausea or vomiting. Denies fever. Believes he is urinating a little less also. But no dysuria. He has had episodes like this before. Prior similar symptoms: Yes Recent Illness/Hospitalization: No PFSH [facility] Medical History Dehydration Acute kidney injury Cancer of appendix Ileostomy present Acute appendicitis [...] PO DAILY 12/15/24 History release psyllium husk 3 gram oral powder 1 packet PO TID #54 e a 11/29/24 12/15/24 Rx packet (Daily Fiber (psyllium-aspartame)) dicyclomine 20 mg tablet 20 mg PO .QID PRN diarrhea # 20 tabs 12/16/24 Unknown Rx diphenoxylate-atropine 2.5 2 tab PO Q6H PRN diarrhea # 30 tabs 12/16/24 Unknown Rx mg-0.025 mg tablet (Lomotil) Allergy/AdvReac Type Severity Reaction Status Date / Time No Known Allergies Allergy Verified 03/28/25 13:01 Family History Other VTE (venous thromboembolism) Surgical History S/P splenectomy H/O colectomy Social History household members: spouse housing: house Smoking Status: Never smoker ROS ROS ED ROS Narrative Tired. Constitutional Constitutional ED: Denies chills or fever(s) Eyes Eyes: Denies blurry vision ENT ENT ED: Denies ear pain Cardiovascular Cardiovascular: Denies chest pain Respiratory/Chest Respiratory/Chest: Denies cough or dyspnea Gastrointestinal Gastrointestinal: Reports diarrhea and other Details: High output ileostomy. ; Denies abdominal pain, nausea or vomiting Genitourinary Genitourinary ED: Denies dysuria or hematuria Musculoskeletal Musculoskeletal: Denies arthralgias Integumentary Denies abscess Neurologic Neurologic: Denies headache(s) Psychiatric Psychiatric: Denies anxiety or depression Endocrine Endocrinology: Denies cold intolerance Hematologic/Lymphatic Hematologic/Lymphatic: Reports none Allergic/Immunologic Allergic/Immunologic ED: Denies mouth swelling, tongue swelling or urticaria EXAM Physical Exam Narrative Exam Narrative: Well-appearing 54-year-old male. Initial blood pressure was low at 99/69. Heart rate 100. H EENT exam pupils are unreactive light. Mild dry mucous members. Neck nontender no JVD. Lungs clear to auscultation bilaterally. Heart rate about 100 no murmur. Chest wall and ribs nontender. Abdomen soft nondistended normal bowel sounds without peritoneal signs. Ostomy bag in his lower abdomen with loose stool. Nontender. Nondistended. Moving all 4 extremities. Nontender no edema. Back nontender. Neurologically he is awake alert. Answer questions following commands. Const Vital Signs: 03/28/25 12:59 03/28/25 13:13 03/28/25 14:16 Temperature 98.3 F Temperature Source Oral Pulse Rate 100 84 Respiratory Rate 19 H 16 Respiratory Effort Normal Respiratory Pattern Normal Blood Pressure 99/69 105/71 Blood Pressure Mean 79 82 Pulse Ox 98 100 Oxygen Delivery Method Room Air 03/28/25 15:26 Temperature 98.3 F Temperature Source Pulse Rate 84 Respiratory Rate 16 Respiratory Effort Respiratory Pattern Blood Pressure 106/70 Blood Pressure Mean 82 Pulse Ox 98 Oxygen Delivery Method Positive well nourished and well developed; Negative for cachectic, contracturesor unkempt General Appearance ED: well developed and NAD; Negative for unkempt, cachectic, contractures, cyanotic, diaphoretic or pallor Nutritional Appearance: Negative for cachectic HEENT Reports dry mucous membranes; Denies moist mucous membranes Negative for trauma or tenderness Mouth ED: Yes dry mucous membranes Mouth: dry mucous membranes Eyes PERRL and EOMs intact bilaterally Neck no lymphadenopathy, supple and no JVD Chest Wall inspection of chest normal and palpation of chest normal Resp normal respiratory effort and clear to auscultation bilaterally Effort and Inspection: Negative for retractions Auscultation: Negative for rales, rhonchi, wheezes or diminished lung sounds Cardio regular rate, regular rhythm, S1 normal heart sound, S2 normal heart sound and no murmurs GI normal to inspection, nondistended, normoactive bowel sounds, non-tender, non-distended and no masses GI Narrative: Ileostomy bag with loose stool. Nontender. Nondistended. Auscultation: normoactive bowel sounds Palpation: soft; Negative for tender, guarding or rebound tenderness present Back/Spine no CVA tenderness General Back: Negative for CVA tenderness Cervical Spine: Negative for cervical spine tenderness Thoracic Spine / Upper Back: Negative for thoracic spinal tenderness Extremity normal to inspection General Extremety ED: Negative for edema or tenderness General Extremity: Negative for edema Neuro oriented x3 and CN's II-XII intact bilaterally Sensorium / Orientation: alert; Negative for orientation impaired, lethargic or stuporous Motor Exam: strength 5/5 throughout Psych mental status grossly normal Appearance: Negative for unkempt Skin no rashes or lesions noted and no wounds General Skin Exam: Negative for jaundice or pallor Lesions: No lesion noted Rashes: No rashes noted Trauma: Negative for abrasion Wounds: Negative for wounds noted MDM MDM MDM Narrative Medical decision making narrative: 54-year-old male with history of ileostomy with high output concern for dehydration. He does have a borderline blood pressure and pulse of 100. But given 2 L normal saline screening labs will be obtained. He has had episodes like this before. He has a known history of chronic kidney disease. Repeat exam patient doing well at 3:16 PM. Abdomen benign. Patient doing well. Patient is comfortable being discharged home. Plenty of fluids. Rest. Follow-up with his doctors as needed. Labs are consistent with prior labs and his chronic kidney disease. He has had elevated white counts before in the past. He is also had a prior history of hyponatremia. Lab Data Attestation: I reviewed the patient's lab results. Lab results narrative: CBC shows a white count 18.2. H&H 12.1 and 35.9. Platelets 367. Chemistry shows sodium 128. Gap 15. BUN is 77 creatinine 2.91 consistent with dehydration. He has had creatinines this high and higher before. Glucose 121. Labs: Laboratory Results - last 24 hr 03/28/25 13:37 WBC 18.2 H RBC 3.79 L Hgb 12.1 L Hct 35.9 L MCV 94.7 H MCH 31.9 MCHC 33.7 RDW Std Deviation 51.8 H RDW Coeff of Dirk 14.8 H Plt Count 367 MPV 8.8 Immature Gran % (Auto) 0.500 Neut % (Auto) 86.7 H Lymph % (Auto) 3.[address] [place] % (Auto) 9.5 Eos % (Auto) 0.2 Baso % (Auto) 0.1 Absolute Neuts (auto) 15.8 H Absolute Lymphs (auto) 0.55 L Nucleated RBC % 0 Differential Comment SCANNED Platelet Estimate A Sodium 128 L Potassium 3.8 Chloride 103 Carbon Dioxide 10.3 L Anion Gap 15 BUN 77 H Creatinine 2.91 H Estim Creat Clear Calc 33.56 L Est GFR (MDRD) Non-Af 25 L BUN/Creatinine Ratio 26.4 H Glucose 121 H Calcium 9.1 Discharge Plan Triage Chief Complaint: General Illness ED Provider: Hesham Jacobson Dx/Rx/DC Orders Clinical Impression: Acute dehydration, Chronic hyponatremia, High output ileostomy, History of chronic kidney disease, History of malignant neoplasm of appendix Instructions: ED Dehydration (Adult) Prescriptions: No Action bupropion HCl 150 mg [...] Harjeet Bernard MD [Primary Care Provider] - As Needed Activity Restrictions/Additional Instructions: Plenty of fluids and rest. Make sure you are drinking 1 to 2 L of water at least daily. Follow-up with your doctor if you are not improving. Your labs are consistent with your prior labs with your chronic kidney disease and your low sodium. Return if feeling worse. Avoid the heat if possible. Stay indoor in the air conditioning lots hot outside. Print Language: Prydeinig Disposition Disposition: Home, Self Care What to do if you have Problems For any increased pain, shortness of breath, bleeding, nausea or vomiting, chestpain, or any unexpected problems, contact your Primary Care Provider. Call [facility] ([phone]) or report to the closest Emergency Room. Call 911 if necessary. 03/28/25 1528 <Electronically signed by Hesham Jacobson MD> Cosigner Signature (if applicable): CC: Dr. Harjeet Bernard MD ~ Signed [facility] Work Phone: 1(155) 645-259506-29-2025 Hospital Discharge instructionsAdditional Instructions Plenty of fluids and rest. Make sure you are drinking 1 to 2 L of water at least daily. Follow-up with your doctor if you are not improving. Your labs are consistent with your prior labs with your chronic kidney disease and your low sodium. Return if feeling worse. Avoid the heat if possible. Stay indoor in the air conditioning lots hot outside.[facility] Work Phone: 1(210) 741-871005-07-2025 Telephone encounter Note* Telephone Encounter - Cleo Parekh RN - 02/03/2025 3:29 PM EDT Mychart sent. [facility]05-07-2025 Miscellaneous Notes* Telephone Encounter - Cleo Parekh RN - 02/03/2025 3:29 PM EDT Mychart sent. * Telephone Encounter - Callie Hall - 02/03/2025 2:40 PM EDT [phone] Dov Patient calling to go over ostomy output with the nurse. States if she doesn't need to call him, a MyChart message will be ok. [facility] Telephone encounter Note * Telephone Encounter - Callie Hall - 02/03/2025 2:40 PM EDT [phone] Dov Patient calling to go over ostomy output with the nurse. States if she doesn't need to call him, a Buy buy teahart message will be ok. [facility]04-30-2025 Telephone encounter Note* Telephone Encounter - Cleo Parekh RN - 01/27/2025 12:14 PM EDT Daily outputs: 01/22: 28 oz 01/23: 52 oz 4/: 58 oz 4/: 36 oz /:40 oz Consistency: varies watery- to mashed potatoes. He is playing with the amount of lomotil he takes daily. Over the last 3 weeks has gained back 3 lbs. He overall feeling: really good. Appetite is improving. 1-2 protein shakes a day. Lab work is trending up. They will continue to monitor and play with bowel stoppers and call me in 1 week. [facility]04-30-2025 Miscellaneous Notes* Telephone Encounter - Cleo Parekh RN - 01/27/2025 12:14 PM EDT Daily outputs: 01/22: 28 oz 01/23: 52 oz 4/: 58 oz /: 36 oz 4/29:40 oz Consistency: varies watery- to mashed potatoes. [...] me in 1 week. [facility] Telephone encounter Note * Telephone Encounter - Cleo Parekh RN - 01/18/2025 4:16 PM EDT 2 bags of fluids over the weekend, he started max dosing lomotil and imodium since Saturday- has seen considerable improvements in output consistency since then. Output became a thick applesauce/cake batter consistency. They pulled back on the lomotil and imodium- to 1 and 1. I requested that they pull back on the lomotil first. Continue to take max dosing ofimodium, then add 1 lomotil 30 mins before [...] periods of time, as this still is anileostomy, so inevidably it will produce output, and we want to make sure he's not developing a bowel obstruction. He verbalized understanding, S.O. on the phone did as well. They will call with any further concerns. [facility]04-21-2025 Miscellaneous Notes* Telephone Encounter - Cleo Parekh RN - 01/18/2025 4:16 PM EDT 2 bags of fluids over the weekend, he started max dosing lomotil and imodium since Saturday- has seen considerable improvements in output consistency since then. Output became a thick applesauce/cake batter consistency. They pulled back on the lomotil and imodium- to 1 and 1. I requested that they pull back on the lomotil first. Continue to take max dosing ofimodium, then add 1 lomotil 30 mins before [...] periods of time, as this still is anileostomy, so inevidably it will produce output, and we want to make sure he's not developing a bowel obstruction. He verbalized understanding, S.O. on the phone did as well. They will call with any further concerns. * Telephone Encounter - Mary Gonzalez - 01/18/2025 3:43 PM EDT He is doing better with 1 Imodium, lomotil. This has slowed his ouput down considerably. Please call. [facility] Telephone encounter Note * Telephone Encounter - Mary Gonzalez - 01/18/2025 3:43 PM EDT He is doing better with 1 Imodium, lomotil. This has slowed his ouput down considerably. Please call. [facility] Work Phone: 1(494) 844-590704-18-2025 Discharge summary [facility] Medical Records Department [address] [place] [id number] Emergency Department Summary 01/15/25 MR#: [id number] Acct: [id number] Name: DOV BURROWS Rep #:[id number] : 1970 54 From: Iker malcolm DO PCP: Dr. Harjeet Bernard MD Status:RE G ER Location: ED HPI History of Present Illness Chief Complaint: General Illness Narrative Narrative: Chief complaint and HPI: Dehydration/increased ileostomy output. 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 Patient states that he has been having increased ileostomy output since October. He got a hold of his surgeon Dr. Buenrostro at [facility]. He wanted the patient to [...] intact Psych: Cooperative, appropriate mood and affect [facility] Medical History Cancer of appendix Ileostomy present [...] 11/26/24 @ 18:[address] Ibrahima Doan, ) Other VTE (venous thromboembolism) Surgical History S/P [...] got a hold of his surgeon [facility] Bia metzger [facility] [facility] He wanted the patient to [...] may be unforeseen circumstances and deterioration causing earlybody harm or because of his choice. He is alert and oriented to make his own decisions. He states that he is aware of the serious risks as explained, but continues to want to leave. Consideringhis decision to leave AGAINST MEDICAL ADVICE, he was told to follow-up with his surgeon. He has arra nged follow-up for tomorrow. He was advised that [...] 84.7 H Lymph % (Auto) 4.[address] [place] % (Auto) 9.5 Eos % (Auto) 0.3 [...] your Primary Care Provider. Call [facility] ([phone]) or report tothe closest Emergency Room. Call 911 if necessary. 01/15/25 8296 Cosigner Signature (if applicable): CC: Dr. Harjeet Bernard MD ~ Signed [facility]04-18-2025 Telephone encounter Note* Telephone Encounter - Cleo Parekh RN - 01/15/2025 3:09 PM EDT Patient has questions of G2 vs full sugar gatorade. We discussed the following: Staying away from sugar drinks- choosing the diabetic/sugar alternatives will help. Limiting plain water. Increasing dosing of imodium and starting lomotil. Per Dr. Denise he wants him to present for fluids. Eat bulking foods not just liquids. Keep measuring output Regroup and touch base on Saturday. [facility]04-18-2025 Miscellaneous Notes* Telephone Encounter - Cleo Parekh RN - 01/15/2025 3:09 PM EDT Patient has questions of G2 vs full sugar gatorade. We discussed the following: Staying away from sugar drinks- choosing the diabetic/sugar alternatives will help. Limiting plain water. Increasing dosing of imodium and starting lomotil. Per Dr. Denise he wants him to present for fluids. Eat bulking foods not just liquids. Keep measuring output Regroup and touch base on Saturday. * Telephone Encounter - Mary Gonzalez - 01/15/2025 1:13 PM EDT Patient calling to say his output was 78 ouces over 24 hours. Please call him back after 230 p, when he get off work please documented in [facility] encounter[facility]04-[facility] Discharge summary Author Iker Nicolegett [facility] Note Date/Time January 15, 2025 11: 27pm [facility] Medical Records Department [address] [place] [address] Emergency Department Summary 01/15/25 MR#: [id number] Acct: [id number] Name: DOV BURROWS Rep #:[id number] : 1970 54 From: Iker malcolm DO [...] hold of his surgeon Dr. Buenrostro at [facility]. He wanted the patient to present to the emergency department for some fluids and then follow- up in his office outpatient. Patient denies any [...] intact Psych: Cooperative, appropriate mood and affect [facility] Medical History Cancer of appendix Ileostomy present [...] hold of his surgeon Dr. Buenrostro at [facility]. He wanted the patient to [...] 84.7 H Lymph % (Auto) 4.[address] [place] % (Auto) 9.5 Eos % (Auto) 0.3 [...] your Primary Care Provider. Call [facility] ([phone]) or report to the closest Emergency Room. Call 911 if necessary. 01/15/252326 <Electronically signed by Iker Richards DO> Cosigner Signature (if applicable): CC: Dr. Harjeet Bernard MD ~ Signed [facility] Work Phone: 1(154) 343-239204-18-2025 Telephone encounter Note* Telephone Encounter - Mary Gonzalez - 01/15/2025 1:13 PM EDT Patient calling to say his output was 78 ouces over 24 hours. Please call him back after 230 p, when he get off work please [facility] Work Phone: [phone]) [phone] Telephone encounter Note* Telephone Encounter - Cleo [...] make sure he knows the updated info. [facility]04-17-2025 Miscellaneous Notes* Telephone Encounter - Cleo Parekh [...] back to discuss symptoms/output. documented in this encounterEast [facility] Hospital04-17-2025 Telephone encounter Note * Telephone Encounter - Cleo Parekh RN - 01/14/2025 10:48 AM EDT Left VM regarding mychart message. Requested a call back to discuss symptoms/output. [facility]03-31-2025 History of Present illness Narrative* Nicolasa Denise DO - 12/28/2024 2:45 PM EDT COLORECTAL SURGERY VIRTUAL VISIT FOLLOW UP I have communicated my name and active licensure. The patient's identity and physical location wereverified at the time of this visit. Either the patient or their legal entry level account representative has been informed of the risks and benefits of -- and alternatives to -- treatment through a remote evaluation andconsents to proceed with the evaluation remotely. I had a virtual visit with Mr. Burrows today for follow up of recent hospitalization. 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 documented in this encounterEast [facility] Hospital03-31-2025 NoteHNO ID: [id number] Author: NICOLASA DENISE DO Service: ? Author Type: Physician Type: Progress Notes Filed: 03/26/2025 10:21 Note Text: COLORECTAL SURGERY VIRTUAL VISIT FOLLOW UP I have communicated my name and active licensure. The patient's identity and physical location were verified at the time of this visit. Either the patient or their legal entry level account representative has been informed of the risks and benefits of -- and alternatives to -- treatment through a remote evaluation and consents to proceed with the evaluation remotely. I had a virtual visit with Mr. Burrows today for follow up of recent hospitalization. 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 complicated by [...] mortality and/or complications of treatment plan: high Stuart spent a total of 30 minutes on the date of the service which included preparing to see the patient, [id number] patient care, completing clinical documentation, obtaining and/or reviewing separately obtained history, performing a medically appropriate examination, counseling and educating the patient/family/caregiver, ordering medications, tests, or procedures, communicating with other HCPs (not separately reported), independently interpreting results (not separately reported), communicating results to the patient/family/caregiver, and care coordination (not separately reported). [facility]03-24-2025 Instructions* Patient Instructions* Harjeet Bernard MD [...] function and electrolyte levels. documented in this encounterEast [facility] Regional Hospital03-24-2025 NoteHNO ID: [id number] Author: HARJEET BERNARD MD Service: ? Author Type: Physician Type: Progress Notes Filed: 12/21/2024 19:51 Note Text: This note was created using Nexus eWaterriter. Subjective Dov Burrows is a 54 year [...] and dry. Neurological: Gen (more content not included)...[facility]03-24-2025 History of Present illness Narrative* Harjeet Bernard MD - 12/21/2024 3:42 PM EDT Images from the original note were not included. This note was created using CENTERSONICter. Subjective Dov Burrows is a 54 year [...] time needed admitted. List of questions from daughterwaciarra brought in to go through--questions answered to [...] Lymph 1.00 - 4.00 k/uL 1.[address] [place]% % 22.[address] [place] <0.87 k/uL 1.48 (H) 1.15 (H) Eosin% [...] External lab result Reviewed labs done at [facility] . 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 Refills sent to [facility]. I spent a total of 46 minutes on the date of the service which included [id number]-iw-[id number] patient care, completing clinical documentation, obtaining and/or reviewing separately obtained history, performing a medically appropriate examination, counseling and educating the patient/family/caregiver, ordering medications, tests, or procedures, independently interpreting results (not separately reported), and communicating results to the patient/family/caregiver. Harjeet Bernard MD documented in this encounterEast [facility] Hospital03-20-2025 Telephone encounter Note * Telephone Encounter - Madisyn Barraza RN - 12/17/2024 10:37 AM EDT Aishwarya Filler Feeder with [employer] called to reports that the Pt has an RN Health Delivery Technician through [facility] Hany George (female) ph. [phone]. She wanted to give provider this information in case she would need it. Put the information under the comment section under the Pt information. [facility]03-20-2025 Miscellaneous Notes* Telephone Encounter - Madisyn Barraza RN - 12/17/2024 10:37 AM EDT Aishwarya Filler Feeder with [employer] called to reports that the Pt has an RN Health Delivery Technician through [facility] Hany Pizano (female) ph. [phone]. She wanted to give provider this information in case she would need it. Put the information under the comment section under the Pt information. documented in this encounterEast [facility] Hospital03-19-2025 Discharge summary Author Mk Jc [facility] Note Date/Time December 16, 2024 11: 27am [facility] Medical Records Department [address] [place] [address] Instructions for Home/Discharge Instructions 12/16/24 1118 MR#: [id number] Acct: [id number] Name: DOV BURROWS Rep #:[id number] : 1970 54 From: Mk Jc DO [...] CC: Dr. Harjeet Bernard MD ~ Signed [facility] Work Phone: 1(185) 613-835303-19-2025 Progress note [facility] Medical Records Department [address] [place] [address] Progress Note - Hospitalist 12/16/24 0004 MR#: [id number] Acct: [id number] Name: DOV BURROWS Rep #:[id number] : 1970 54 From: Antonette Perera MD PCP: Dr. Harjeet Bernard MD Status:ETHAN ISIDRO Location: [place]3 RH739-2 Hospitalist Note Patient with high ostomy output, noted [place] likely caused by this. Will obtain cdiff and enteric to be cautious per discussion with staffing associate. 12/16/24 0004 Cosigner Signature (if applicable): CC: ~ Signed [facility]03-19-2025 [facility] Medical Records Department [address] [place] [address] Discharge Summary 12/16/24 1128 MR#: [id number] Acct: [id number] Name: DOV BURROWS Rep #: [id number] : 1970 54 From: Mk Jc DO PCP: Dr. Harjeet Bernard MD Status:DIS SANNA Location: [place] [address] Providers Date of Admission: 12/15/24 Date of [...] was seen in the emergency room at [facility] for evaluation due to possible dehydration [...] better. He had been contacted by his clinical support tech by text but had not been given [...] non-treatment if statin sabine (more content not included)...[facility]03-19-2025 Discharge summary [facility] Medical Records Department [address] [place] [address] Instructions for Home/Discharge Instructions 12/16/24 1118 MR#: [id number] Acct: [id number] Name: DOV BURROWS Rep #:[id number] : 1970 54 From: Mk Jc DO [...] CC: Dr. Harjeet Bernard MD ~ Signed [facility]03-19-2025 Progress note Author Antonette Perera [facility] Note Date/Time December 16, 2024 1:2 3pm [facility] Medical Records Department [address] [place] [address] Progress Note - Hospitalist 12/16/24 0004 MR#: [id number] Acct: [id number] Name: DOV BURROWS Rep #:[id number] : 1970 54 From: Antonette Perera MD PCP: Dr. Harjeet Bernard MD Status:AD Libby [facility] Location: [place] [address] Hospitalist Note Patient with high ostomy output, noted [place] likely caused by this. Will obtain cdiff and enteric to be cautious per discussion with staffing associate. 12/16/24 0004 <Electronically signed by Antonette Perera MD> Cosigner Signature (if applicable): CC: ~ Signed [facility] Work Phone: 1([phone]) 256-841403-18-2025 History and physical note Author Mk Jc [facility] Note Date/Time December 15, 2024 4:4 8pm [facility] Medical Records Department [address] [place] [address] H&P Exam - Hospitalist 12/15/24 1633 MR#: [id number] Acct: [id number] Name: DOV BURROWS Rep #:[id number] : 1970 54 From: Mk Jc DO PCP: Dr. Harjeet Bernard MD Status:AD M [facility] Location: [place] [address] HPI - General General Date of Admission: 12/15/24 Date of Service: 12/15/24 Chief Complaint: Need for IV fluids HPI Narrative DOV BURROWS, is a 54 M who presents to the emergency room at [facility] for evaluation due to possible dehydration [...] if this will decrease his ileostomy output. [facility] Medical History Cancer of appendix Ileostomy present [...] (Auto) 79.6 H, Lymph % (Auto)7.6 L, [place] % (Auto) 10.9 H, Eos % (Auto) [...] 70 minutes Charges/Coding Visit Charges Inpatient E&M: 88574 Init Hosp L3 12/15/24 1648 <Electronically signed by Mk Jc DO> Cosigner Signature (if applicable): CC: Dr. Harjeet Bernard MD; Dr. Mk Jc DO~ Signed [facility] Work Phone: 1(775) 138-918203-18-2025 Discharge summary Author Ibrahima Camarena [facility] Note Date/Time December 15, 2024 3:3 6pm [facility] Medical Records Department [address] [place] [address] Emergency Department Summary 12/15/24 MR#: [id number] Acct: [id number] Name: DOV BURROWS Rep #:[id number] : 1970 54 From: Ibrahima Mcgowan PCP: Dr. Harjeet Bernard MD Status:ETHAN ISIDRO Location: [place]3 WV362-3 HPI History of Present Illness Chief Complaint: [...] pain. Patient denies any nausea or vomiting. [facility] Medical History Cancer of appendix Ileostomy present [...] 79.6 H Lymph % (Auto) 7.[address] [place] % (Auto) 10.9 H Eos % (Auto) [...] Language: Prydeinig Disposition Disposition: Acute Care Hospital [facility] What to do if you have Problems For any increased pain, shortness of breath, bleeding, nausea or vomiting, chestpain, or any unexpected problems, contact your Primary Care Provider. Call [facility] ([phone]) or report to the closest Emergency Room. Call 911 if necessary. 12/15/24 1536 <Electronically signed by Ibrahima Camarena DO> Cosigner Signature (if applicable): CC: Dr. Harjeet Bernard MD ~ Signed [facility] Work Phone: [phone]) 164-543703-18-2025 History and physical note [facility] Medical Records Department [address] [place] [address] H&P Exam - Hospitalist 12/15/24 1633 MR#: [id number] Acct: [id number] Name: DOV BURROWS Rep #:[id number] : 1970 54 From: Mk Jc DO PCP: Dr. Harjeet Bernard MD Status:AD M [facility] Location: [facility] BB865-6 HPI - General General Date of Admission: 12/15/24 Date of Service: 12/15/24 Chief Complaint: Need for IV fluids HPI Narrative DOV BURROWS, is a 54 M who presents to the emergency room at [facility] for evaluation due to possible dehydration [...] if this will decrease his ileostomy output. [facility] Medical History Cancer of appendix Ileostomy present [...] (Auto) 79.6 H, Lymph % (Auto)7.6 L, [place] % (Auto) 10.9 H, Eos % (Auto) [...] 70 minutes Charges/Coding Visit Charges Inpatient E&M: 40063 Init Hosp L3 12/15/24 4315 Cosigner Signature (if applicable): CC: Dr. Harjeet Bernard MD; Dr. Mk Jc DO~ Signed [facility]03-18-2025 Discharge summary [facility] Medical Records Department [address] [place] [address] Emergency Department Summary 12/15/24 MR#: [id number] Acct: [id number] Name: DOV BURROWS Rep #:[id number] : 1970 54 From: Ibrahima Mcgowan PCP: Dr. Harjeet Bernard MD Status:AD M SANNA Location: [place]3 WY110-4 HPI History of Present Illness Chief Complaint: [...] pain. Patient denies any nausea or vomiting. [facility] Medical History Cancer of appendix Ileostomy present [...] 79.6 H Lymph % (Auto) 7.[address] [place] % (Auto) 10.9 H Eos % (Auto) [...] Language: Prydeinig Disposition Disposition: Acute Care Hospital [facility] What to do if you have Problems For any increased pain, shortness of breath, bleeding, nausea or vomiting, chestpain, or any unexpected problems, contact your Primary Care Provider. Call [facility] ([phone]) or report tothe closest Emergency Room. Call 911 if necessary. 12/15/24 1536 Cosigner Signature (if applicable): CC: Dr. Harjeet Bernard MD ~ Signed [facility]03-18-2025 Evaluation note* Diagnosis Onset Date Resolution Status Admit Date Acute kidney injury inactive December 15, 2024 10:18am Dehydration inactive December 15 025 10:18am [facility] Work Phone: 1(492) 361-195603-17-2025 Telephone encounter Note* Telephone Encounter - Zhanna Wagner LPN - 12/14/2024 2:46 PM EDT Two encounter open on patient. Attempted to contact patient in the other encounter [facility]03-17-2025 Miscellaneous Notes* Telephone Encounter - Zhanna Wagner [...] AM. 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 Discussed that I was [...] maintenance at original time] documented in this encounterEast [facility] Hospital03-17-2025 Telephone encounter Note * Telephone Encounter - [...] and increased ostomy output. Rowena Angel RN [facility]03-17-2025 Miscellaneous Notes* Telephone Encounter - Rowena Angel [...] 28 (L) 30 (L) documented in this encounterEast [facility] Hospital03-17-2025 Telephone encounter Note * Telephone Encounter - Zhanna Wagner LPN - 12/14/2024 9:01 AM EDT No answer. Left message for patient to call office and ask to speak to a nurse regarding follow up from this past weekend and new lab results and recommendations. [facility]03-17-2025 Note* Addendum Note - Julissa Ugarte APRN.CNS - 12/14/2024 7:29 AM EDTAddended by: JULISSA UGARTE on: 12/14/2024 07:29 AM Modules accepted: Orders [facility]03-17-2025 Telephone encounter Note* Telephone Encounter - Julissa Ugarte APRN.CNS - 12/14/2024 7:18 AM EDT Noted, will follow up today, endorse ER visit [facility] Work Phone: 1(145) 703-175203-17-2025 Telephone encounter Note* Telephone Encounter - Julissa [...] 81 36 (L) 28 (L) 30 (L) [facility]03-15-2025 Telephone encounter Note* Telephone Encounter - Derek [...] call him again. Dr. Derek Ulloa DO [facility] Work Phone: [phone] 344-891403-15-2025 Miscellaneous Notes* Telephone Encounter - Derek Ulloa [...] Dr. Derek Ulloa DO documented in this encounterEast Ohio Regional Hospital03-15-2025 Telephone encounter Note * Telephone Encounter - Derek Ulloa DO - 12/12/2024 1:30 AM EDT Received call from lab at 12:47 AM regarding critical lab value. Patient had a CO2 level of 9. Reviewed his chart and discharge summary he also appeared to have worsening [place] over last week. Called patient and made contact at 1:20 AM. 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 Discussed that I was [...] due to Epic maintenance at original time] [facility] Work Phone: [phone] 999-561603-13-2025 Telephone encounter Note* Telephone Encounter - Julissa Ugarte APRN.CNS - 12/10/2024 8:36 AM EDT Order in, reach out to Dov Zepeda First if he does respond today [facility]03-13-2025 Miscellaneous Notes* Telephone Encounter - Julissa Ugarte [...] advise. Vania Mcpherson MA documented in this encounterEast Ohio Regional Hospital03-13-2025 Telephone encounter Note * Telephone Encounter - [...] a BMP. Please advise. Vania Mcpherson MA [facility]03-10-2025 Progress note* Result Encounter Note - Julissa Ugarte APRN.CNS - 12/07/2024 8:15 AM EDT Elevated BUN and creatinine, endorse increase fluid intake. Recheck BMP 4 days [facility] Work Phone: [phone] Miscellaneous Notes* Result Encounter Note - Julissa Ugarte APRN.CNS - 12/07/2024 8:15 AM EDT Elevated BUN and creatinine, endorse increase fluid intake. Recheck BMP 4 days documented in this encounterEast [facility] Hospital03-07-2025 History of Present illness Narrative* Julissa Ugarte [...] and Lump, Unspecified Site Presents for an [facility] hospital follow up visit today. He was [...] continue to monitor. He was seen at [facility] November 27, 2024 for nausea vomiting [...] 85 01/04/2023 135 10/11/2018 118 LDL Chol, [place] (mg/dL) Date Value 11/03/2011 109 09/28/2010 115 [...] Harjeet Bernard MD is scheduled Julissa Ugarte APRN.CNS documented in this encounterEast Ohio Regional Hospital03-07-2025 NoteHNO ID: [id number] Author: JULISSA UGARTE APRN.CNS Service: ? Author [...] and Lump, Unspecified Site Presents for an [facility] hospital follow up visit today. He was [...] continue to monitor. He was seen at [facility] November 27, 2024 for nausea vomiting [...] 85 01/04/2023 135 10/11/2018 118 LDL Chol, [place] (mg/dL) Date Value 11/03/2011 109 09/28/2010 115 [...] deficit present. Mental S (more content not included)...[facility]03-03-2025 Note HNO ID: [id number] Author: LINNEA GARRISON RN Service: ? Author Type: Registered Nurse Type: Progress Notes Filed: 11/30/2024 10:18 Note Text: TRANSITION CARE MANAGEMENT (TCM) INITIAL CONTACT Electrical Checkout Mechanic Outreach Provider Action/FYI: Patient reports hospital told [...] of Discharge 11/29/2024 SUMMARY: -Pt discharged from [facility] on 11/29/2024. -Admitted for: Dehydration Do you [...] Yes Medical records from recent hospitalization[facility] History of Present illness Narrative* Linnea Garrison RN - 11/30/2024 10:14 AM EST TRANSITION CARE MANAGEMENT (TCM) INITIAL CONTACT Electrical Checkout Mechanic Outreach Provider Action/FYI: Patient reports hospital told [...] of Discharge 11/29/2024 SUMMARY: -Pt discharged from [facility] on 11/29/2024. -Admitted for: Dehydration Do you [...] recent hospitalization: Care Everywhere documented in this encounterEast [facility] Regional Hospital03-03-2025 NotePatient Outreach (INTMWS) FIRSTDOV Zepeda ([id number]) 1970 M Date Time Provider Department 11/30/24 HARJEET BERNARD INTMWS During your visit today, we recorded the following information about you: Linnea Garrison RN 11/30/2024 10:18 AM Signed TRANSITION CARE MANAGEMENT (TCM) INITIAL CONTACT Electrical Checkout Mechanic Outreach Provider Action/FYI: Patient reports hospital told [...] of Discharge 11/29/2024 SUMMARY: -Pt discharged from [facility] on 11/29/2024. -Admitted for: Dehydration Do you [...] Allergies) Date Reviewed: 06/15/2024 Reviewed by: Ana Lane RN - Fully Assessed Reason for Visit: [...] l*01/23/2023 Encounter Status:Closed by LINNEA GARRISON on 11/30/24[facility]03-[facility]2025 [facility] Medical Records Department [address] [place] [address] Discharge Summary 11/29/24 0835 MR#: [id number] Acct: [id number] Name: DOV BURROWS Rep #: [id number] : 1970 54 From: Sara Quezada DO PCP: Dr. Harjeet Bernard MD Status:ADM IN Location: [facility] [facility] [id number] [facility] Date of Admission: 11/27/24 Date of Discharge: [...] who presented to the emergency department at [facility] with a chief complaint of nausea [...] rhonchi or wheezes Cardio (more content not included)...[facility]02-28-2025 Evaluation note* Diagnosis Onset Date Resolution Status Admit Date Hypokalemia acute October 3:11pm Acute kidney injury resolved 2024 3:11pm Hypotension due to hypovolemia resolved November 27 2 025 3:11pm Metabolic acidosis resolved 2024 3:11pm Nausea, vomiting and diarrhea resolv ed November 27, 2024 3:11pm Acute kidney injury acute December 15, 2024 10:18am Dehydration acute December 15 025 10:18am [facility] Work Phone: 1(719) 563-853502-28-2025 Evaluation note* Diagnosis Onset Date Resolution Status Admit Date Hypokalemia acute October 3:11pm Acute kidney injury resolved 2024 3:11pm Hypotension due to hypovolemia resolved November 27, 2 025 3:11pm Metabolic acidosis resolved 2024 3:11pm Nausea, vomiting and diarrhea resolv ed November 27, 2024 3:11pm Acute kidney injury inactive December 15, 2024 10:18am Dehydration inactive December 15, 2 025 10:18am [facility] Work Phone: 1(949) 306-127912-23-2024 Telephone encounter Note* Telephone Encounter - Cleo [...] clip that was placed. Triny verbalized understanding. [facility]12-23-2024 Miscellaneous Notes* Telephone Encounter - Cleo [...] Callie Hall - 09/21/2024 10:05 AM EST [phone] Triny Patient calling stating he passed the clamp that was put in his ABD in his stoma bag. Wants to makesure this is ok. Patient not in any pain or any issues, did not know it happened until he emptied his bag. documented in this encounterEast [facility]12-[facility]24 Telephone encounter Note * Telephone Encounter - Callie Hall - 09/21/2024 10:05 AM EST [phone] Triny Patient calling stating he passed the clamp that was put in his ABD in his stoma bag. Wants to makesure this is ok. Patient not in any pain or any issues, did not know it happened until he emptied his bag. [facility]10-[facility] History of Present illness Narrative* Nicolasa Denise DO - 07/13/2024 1:00 PM EDT COLORECTAL SURGERY VIRTUAL VISIT FOLLOW UP I have communicated my name and active licensure. The patient's identity and physical location wereverified at the time of this visit. Either the patient or their legal entry level account representative has been informed of the risks and benefits of -- and alternatives to -- treatment through a remote evaluation andconsents to proceed with the evaluation remotely. I had a virtual visit with Mr. Burrows today for follow up of WOOD TECHNOLOGIST. 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 complicated by [...] is a 54 year old male with WOOD TECHNOLOGIST recurrence PCI 39 Data Reviewed: Tests & [...] which included preparing to see the patient, wzfj-jz-asks patient care, completing clinical documentation, obtaining and/or reviewing separately obtained history, performing a medically appropriate examination, counseling and educating the pat ient/family/caregiver, ordering medications, tests, or procedures, communicating with other HCPs (not separately reported), independently interpreting results (not separately reported), communicatingresults to the patient/family/caregiver, and care coordination (not separately reported). documented in this encounterEast [facility] Hospital10-14-2024 NoteHNO ID: [id number] Author: NICOLASA DENISE DO Service: ? Author Type: Physician Type: Progress Notes Filed: 09/01/2024 10:44 Note Text: COLORECTAL SURGERY VIRTUAL VISIT FOLLOW UP I have communicated my name and active licensure. The patient's identity and physical location were verified at the time of this visit. Either the patient or their legal entry level account representative has been informed of the risks and benefits of -- and alternatives to -- treatment through a remote evaluation and consents to proceed with the evaluation remotely. I had a virtual visit with Mr. Burrows today for follow up of WOOD TECHNOLOGIST. 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 [facility]09-16-2024 NoteHNO ID: [id number] Author: HALEY BAUMANN RN Service: ? Author [...] patient Pouching System Pouching system removed: 2 1/4 ConvaTec NATALY-FIT Natura Durahesive Flat Cut-to-Fit Skin Barrier (#[id number]), drainable pouch Wearing time: 3-4 days Pouching system evaluation: circumferentially undermined, wider from 3-9 o'clock and nearly leaking at 6 o'clock Recommendations: Skin Care: Apply ConvaTec Stomahesive powder to any areas of skin breakdown PRN until healed. Dust off excess. Pouching system Applied: Alpha New Image Convex 2 1/4 Ceraplus Flange with Tape Border #[id number], ceraplus ring, drainable pouch Expected wearing time: 3-4 days Time Increment: 1 hour Haley Baumann, RN, BSN, CWOCN For non-emergent WO Nursing patient care needs - Please place a consult via Epic under ostomy. WOC Nurse Available Hours: M-F: [phone]; Weekends AND Holidays: [phone] For emergent WO Nursing patient care needs - Page #[phone], during available hours only.[facility]09-16-2024 History of Present illness Narrative* Haley Baumann, RN - 06/15/2024 3:18 PM EDT ET/WOCN [...] patient Pouching System Pouching system removed: 2 1/4 ConvaTec NATALY-FIT Natura Durahesive Flat Cut-to-Fit Skin Barrier (#[id number]), drainable pouch Wearing time: 3-4 days Pouching system evaluation: circumferentially undermined, wider from 3-9 o'clock and nearly leakingat 6 o'clock Recommendations: Skin Care: Apply ConvaTec Stomahesive powder to any areas of skin breakdown PRN until healed. Dust off excess. Pouching system Applied: Neo New Image Convex 2 1/4 Ceraplus Flange with Tape Border #81753,ceraplus ring, drainable pouch Expected wearing time: 3-4 days Time Increment: 1 hour Haley Baumann, RN, BSN, CWOCN For non-emergent WO Nursing patient care needs - Please place a consult via Epic under ostomy. WOC Nurse Available Hours: M-F: [phone]; Weekends & Holidays: [phone] For emergent [facility] Nursing patient care needs - Page #[phone], during available hours only. 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 documented in this encounterEast [facility] Hospital08-16-2024 History of Present illness Narrative* Harjeet Bernard MD - 05/15/2024 11:32 AM EDT This note was created using Repunch. Subjective Dov Burrows is a 54 year [...] Lymph 1.00 - 4.00 k/uL 1.[address] [place]% % 22.[address] [place] <0.87 k/uL 1.48 (H) 1.15 (H) Eosin% [...] - Prescription for CPAP supplies sent to [facility]. Hypercholesteremia: - Standing orders placed for lipid [...] adherence. Harjeet Bernard MD documented in this encounterEast Ohio Regional Hospital08-16-2024 History of Present illness Narrative* Noemí Castano RT(R) - 05/15/2024 10:00 AM EDT Radiology [...] PATIENT PRESENTS WITH AN IMPLANTABLE OR ATTACHED LEGAL WORD PROCESSOR: No ALLERGIES: Reviewed and unchanged CONTRAST ALLERGY: [...] 2024 TIME: 2:35 PM documented in this encounterEast [facility] Regional Hospital08-08-2024 Telephone encounter Note * Telephone Encounter - Cleo Parekh RN - 05/07/2024 1:49 PM EDT I discussed concerns with triny. For surveillance we would still need CT C as well. He said he will go to appt at [facility] and get the imaging done as planned. Pt verbalizes understanding and thanked me for the call. [facility]08-08-2024 Miscellaneous Notes* Telephone Encounter - Cleo Parekh RN - 05/07/2024 1:49 PM EDT I discussed concerns with triny. For surveillance we would still need CT C as well. He said he will go to appt at [facility] and get the imaging done as planned. Pt verbalizes understanding and thanked me for the call. * Telephone Encounter - Callie Hall - 05/07/2024 12:59 PM EDT [phone] Triny Patient calling to make sure that his CT ABD PEL he got on 05/04/24 at [facility] is ok and he does not need to keep the appointment for next Saturday at [facility]. Images and reports here. documented in this encounterEast Ohio Regional Hospital08-08-2024 Telephone encounter Note * Telephone Encounter - Callie Hall - 05/07/2024 12:59 PM EDT [phone] Triny Patient calling to make sure that his CT ABD PEL he got on 05/04/24 at [facility] is ok and he does not need to keep the appointment for next Saturday at [facility]. Images and reports here. [facility]07-15-2024 Telephone encounter Note* Telephone Encounter - Dorinda Saenz RN - 04/13/2024 2:09 PM EDT SPECIALTY CARE COORDINATION FOLLOW-UP NOTE Called patient. Order placed. Dorinda Saenz RN April 13, 2024 [facility]07-15-2024 Miscellaneous Notes* Telephone Encounter - Dorinda Saenz RN - 04/13/2024 2:09 PM EDT SPECIALTY CARE COORDINATION FOLLOW-UP NOTE Called patient. Order placed. Dorinda Saenz RN April 13, 2024 * Telephone Encounter - Callie Hall - 04/13/2024 1:48 PM EDT [phone] Triny Patient needs his yearly CT C/ABD/PEL order placed for his follow up with Dr. Denise on 06/15/24 documented in this encounterEast Ohio Regional Hospital07-15-2024 Telephone encounter Note * Telephone Encounter - Callie Hall - 04/13/2024 1:48 PM EDT [phone] Triny Patient needs his yearly CT C/ABD/PEL order placed for his follow up with Dr. Denise on 06/15/24 [facility]06-24-20[facility] Telephone encounter Note* Telephone Encounter - Joan Alcala - 03/23/2024 1:45 PM EDT Patient has been identified by name and date of : Yes Patient phones for refill(s): Bupropion SR - Wellbutrin 150 mg- not in current refill list. Date of last office visit in primary care: 10/08/2023 Date of next office visit in primary care: 04/13/2024 Please advise. Thank you. Joan Alcala. [facility]06-24-2024 Miscellaneous Notes* Telephone Encounter - Joan Alcala [...] Thank you. Joan Alcala. 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 OSTOMY SUPPLY ORDER FORM Pouch: ConvaTec: 1 Nataly-Fit Natura + Invisiclose, transparent, w/ filter #[id number] 30 day use - 1 Box Wafer: ConvaTec: Nataly-Fit Natura 1 3/4 Flat Durahesive # [id number] 30 day use - 1 Box Moldable Ring: Alpha CeraRing Regular # 8805 30 day use - 1 Box Paste: ConvaTec Stomahesive # 848685 30 day use - 1 Tube Powder: ConvaTec Stomahesive # 50002 30 day use - 1 Bottle Skin Barrier: Alpha Hollihesive 4x4 5/box #5930 30 day use - 1 Box Skin Sealant: 3M Cavilon No Sting, 50/Box #3342 30 day use - 1 Box Hu Hope Flat panel support belt, cool comfort, beige, size XL, with blue 2 1/4 stoma opening Cat# [id number] Refills: 11 Attending Physician: Dr. Denise For immediate authorization, please contact the physician s office. [facility] Nurse: Nereida Escalona RN, BSN, CWOCN, CWS SIGNATURE: Nereida Escalona RN PATIENT NAME: Dov Zepeda First DATE: January 22, 2024 TIME: 9:48 AM CONTACT #: [phone] * Nereida Escalona RN - 01/22/2024 9:32 AM EDT ET/WOCN Nursing Consult Topic: ET/WOCN Consultation Note Outcome: Patient here for outpatient ostomy visit with concerns of skin irritation to peristomal area. Patient reports using [employer] for supplies, was using precut pouches, Convatec durahesive flange. Has plenty of supplies at home but would like a new order form sent to [facility]. Also requests another Nu hope belt. He [...] with any issues. Faxed order form to [facility]. Next Scheduled Visit: as needed Assessment: Stoma [...] Sensi Care No Sting Adhesive Remover wipes (#117344) to gently release the worn pouch from the skin. 2. Apply ConvaTec Stomahesive powder (#45881) to denuded/irritated skin as needed with each pouch change until healed. Prosperity off loose powder from intact skin prior to pouching. Pouching System Applied: Hollihesive triangle washer with keyhole, wrapped around stoma, ConvaTec Durahesive 2 1/4 flat flange, smear of paste to aperture, drainable pouch Wear Time Goal: 3-4 days Time Increment: 1 hour 15 minutes Nereida Escalona RN, BSN, CWOCN, CWS documented in this encounterEast Ohio Regional Hospital04-17-2024 Miscellaneous Notes* Telephone Encounter - Parris Mallory RN - 01/15/2024 6:16 PM EDT [facility] nursing returned patient message regarding: Pt has a wound next to his stoma. He would like an appointment with [facility] Nursing out-pt clinic to have it assessed. Left Message: No- spoke directly to pt Information/Recommendations provided regarding: Appointment scheduled for 01/22/24 at 8:15 am. Pt agreed with this time/date. Time spent: 15 minutes VIKY Izaguirre, RN, CWOCN For non-emergent [facility] Nursing patient care needs - Please place a consult via Epic under ostomy. [facility] Nurse Available Hours: M-F: [phone]; Weekends & Holidays: [phone] For emergent [facility] Nursing patient care needs - Page #[phone], during available hours only. * Telephone Encounter - Rylee Angel - 01/15/2024 4:50 PM EDT Patient would like to speak to a stoma nurse, has a sore draining that is affecting his seal. Call back# [phone] Thank you, Rylee Angel Coordinator II [facility] nursing documented in this encounterEast Ohio Regional Hospital02-12-2024 History of Present illness Narrative* Harjeet Bernard MD - 11/11/2023 6:35 PM EST VIRTUAL VISIT PROGRESS NOTE This is a virtual visit using Buy buy teahart Zoom Video Visit. It required patient- provider interaction for the medical decision making as documented below. I have communicated my name and active licensure. The patient's identity and physical location wereverified at the time of this visit. Either the patient or their legal entry level account representative has been informed of the risks [...] Laterality Date COLONOSCOPY SCREENING 04/26/2022 EGD [facility] SPEC VARICIES INJ 04/26/2022 PAST SURGICAL HISTORY [...] file for this visit. documented in this encounterEast Ohio Regional Hospital09-25-2023 History of Present illness Narrative* Claire Wick, RN - 06/24/2023 2:27 PM EDT ET/WOCN Nursing Consult Topic: ET/WOCN Consultation Note ET Outcome: Patient here to see Dr. Denise today, states that he just changed his pouch this morning and does not need it changed. He requests to see the [facility] team because his hernia belt that he is wearing is too small because he has gained weight. Measurements taken today, and an updated prescription was faxed to [facility] [employer]. Stoma as viewed through pouch is red, moist, and healthy appearing. Current pouching system: Pouch: ConvaTec: 1 Nataly-Fit Natura + Invisiclose, transparent, w/ filter #755352 Wafer: ConvaTec: Nataly-Fit Natura Convex-It precut 1 10/07 Durahesive # [id number] Moldable Ring: Coloplast Brava 4.2mm Moldable # 147756 Paste: Coloplast Brava Strip Paste # 24870 (applies to transverse crease, inferior to stoma as needed) Powder: ConvaTec Stomahesive # 73740 30 day use - 1 Bottle Skin Sealant: 3M No Sting, 30/Box # 3344 30 day use - 1 Box Waist measurements today: 43 Supine position for 5 minutes 44 Standing Calculated measurements for Nu-Hope Flat Panel Support Belt [id number] ET's Next Scheduled Visit: As needed Time Increment: 45 minutes Claire (Julissa) Shamika RN, BSN, [place] [address] Patient: Dov Burrows Patient Address: [address] [place] [address] Preferred Gender: male Date of : 1970 Type of Stoma: End 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 Denise For immediate authorization, please contact the physician s office. [facility] Nurse: VIKY Vargas (Terri), CWOCN SIGNATURE: Claire Wick RN PATIENT NAME: Dov Zepeda First DATE: June 24, 2023 TIME: 2:50 PM CONTACT #: [phone] documented in this encounterEast Ohio Regional Hospital08-18-2023 History of Present illness Narrative* Reef Noemí Britt RT(R) - 05/17/2023 11:20 AM EDT Radiology [...] Pelvis SIGNATURE: RT Dick(R) PATIENT NAME: Dov Burrows DATE: May 17, 2023 TIME: 1:38 PM documented in this encounterEast Ohio Regional Hospital08-15-2023 Miscellaneous Notes* Telephone Encounter - Patricia Padron MA - 05/14/2023 9:47 AM EDT Order for CPAP supplies faxed to [employer] at [phone]. Patricia Padron MA documented in this encounterEast Ohio Regional Hospital07-07-2023 Instructions* Patient Instructions* Harjeet Bernard MD - 04/05/2023 10:21 AM EDT Use Ivory soap instead of wet wipes for stoma care. If still not able to stay sticky then consider asking for trial on Neo brand. documented in this encounterEast Ohio Regional Hospital07-07-2023 History of Present illness Narrative* Harjeet Bernard MD - 04/05/2023 10:06 AM EDT This note was created using Nexus eWaterriter. Subjective Dov Burrows is a 52 year old male. Patient presents with: F/U 6 months SUBJECTIVE: Dov Burrows is a 52 year old year old gentleman here today for follow up appointment for reviewof medical conditions. Needs to get DME supplier for APAP changed to [employer] (from [employer]) where gets other DME supplies. Uses APAP [...] Abs Lymph 1.00 - 4.00 k/uL 1.71 [facility]% % 11.[address] [place] <0.87 k/uL 1.15 (H) Eosin% % 2.1 [...] (H) The 10-year ASCVD risk score (Mango JOHNSON, et al., 2019) is: 3.2% Values used to calculate the score: Age: 52 years Sex: Male Is Non- : No Diabetic: No Tobacco smoker: No Systolic Blood Pressure: 118 mmHg Is BP treated: No HDL Cholesterol: 47 mg/dL Total Cholesterol: 200 mg/dL Assessment and Plan Encounter Diagnosis ICD-10-CM 1. Recurrent major depressive disorder, in partial remission ([facility]) F33.41 sertraline (ZOLOFT) 100 mg tablet Overall doing okay 2. AMBROSE on CPAP G47.33 CPAP 3. [address] ([facility]) Z93.2 Above issues addressed with patient. Patient [...] instructions. [facility] As noted in HPI: Needs to get DME supplier for APAP changed to [employer] (from [employer]) where gets other DME supplies. Uses APAP nightly and benefits from use. Will needs supplies in the next 2 to 3 weeks. Harjeet Bernard MD documented in this encounterEast Ohio Regional Hospital05-17-2023 Miscellaneous Notes* Telephone Encounter - Babita Martinez [...] you. Babita Martinez LPN documented in this encounterEast Ohio Regional Hospital04-12-2023 Instructions* Patient Instructions* Beckie Eaton DO - [...] _Leg pain or swelling documented in this encounterEast Ohio Regional Hospital04-12-2023 History of Present illness Narrative* Beckie Eaton DO - 01/09/2023 3:30 PM EDT Images from the original note were not included. [facility] [place] [facility] Department of Cardiovascular Medicine SECTION [...] Abs Lymph 1.00 - 4.00 k/uL 1.71 [facility]% % 11.[address] 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 The patient's identity and physical location wereverified at the time of this visit. Either the patient or their legal entry level account representative has been informed of the risks [...] visit. Either the patient or their legal entry level account representative has been informed of the risks [...] and ROS obtained by others. Nicolasa Denise, , FACS, FASCRS Colorectal Surgery Risk of morbidity, mortality and/or complications of treatment plan: high I spent a total of 30 minutes on the date of the service which included preparing to see the patient, [id number] patient care, completing clinical documentation, obtaining and/or reviewing separately obtained history, performing a medically appropriate examination, counseling and educating the pat ient/family/caregiver, ordering medications, tests, or procedures, communicating with other HCPs (not separately reported), independently interpreting results (not separately reported), communicatingresults to the patient/family/caregiver, and care coordination (not separately reported). documented in this encounterEast Ohio Regional Hospital03-22-2023 History of Present illness Narrative* Nicolasa Denise DO - 12/19/2022 10:00 AM EDT No visit documented in this encounterEast Ohio Regional Hospital03-20-2023 History of Present illness Narrative* Nicolasa Denise DO - 12/17/2022 1:00 PM EDT No visit documented in this encounterEast Ohio Regional Hospital02-22-2023 Miscellaneous Notes* Telephone Encounter - Mary Dotson RN - 11/21/2022 4:44 PM EST Called pt back and told him a prior authorization was needed and the secretary office clerk was given the information needed [facility] and [...] available and finally called out office. Mary Desai RN * Telephone Encounter - Audrey Weston - 11/21/2022 3:22 PM EST November 21, 2022 [id number] Patient Name: Dov Zepeda First Contact Information: [phone] (home) [phone] (cell) Reason For Call: Patient called to ask what is going on with his Lovenox, he stated that he was told that his insurance will not pay for it; he has been without a blood thinner for a week. I called the [facility] and was told that the medication needs a prior auth, pharmacist provided me with the information. [facility] is currently pending and takes 24 hrs for a response. I will check later, but patient is without a blood thinner Physician:Beckie Eaton DO documented in this encounterEast [facility]02-15-2023 Miscellaneous Notes* Telephone Encounter - Audrey Weston - 11/14/2022 11:55 AM EST November 14, 2022 [id number] Patient Name: Dov Burrows Contact Information: [phone] (home) [phone] (cell) Call from patient requesting refill. He has only 1 left. Had to reschedule his office visit until December. Requested Prescriptions Pending Prescriptions Disp Refills enoxaparin (LOVENOX) 80 mg/0.8 mL 180 Each 3 Sig: Inject 0.8 mL subcutaneously twice daily. Inject entire contents of one(1) syringe Patient last seen 07/2022 Audrey Weston documented in this encounterEast [facility] Hospital02-06-2023 History of Present illness Narrative* Nicolasa Denise DO - 11/05/2022 10:20 AM EST COLORECTAL [...] by others. Signature: Nicolasa Denise DO Date: 11/13/2022 Time: 2:47 PM Risk of morbidity, mortality and/or complications of treatment plan: moderate documented in this encounterEast [facility] Hospital01-20-2023 History of Present illness Narrative* Jose Waite [...] SIGNATURE: Jose Waite PA-C PATIENT NAME: Dov Burrows DATE: October 19, 2022 TIME: 1:56 PM documented in this encounterEast [facility] Hospital01-16-2023 History of Present illness Narrative* Harjeet Bernard MD - 10/15/2022 5:08 PM EST This note was created using [employer] eWater[employer]. 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 AMBROSE on APAP G47.33 Z99.89 Doing well on APAP and uses routinely. 4. Ileostomy in place ([facility]) Z93.2 5. Encounter for long-term current use [...] the date of the service which included [id number]-myhr patient care, completing clinical documentation, obtaining and/or reviewing separately obtained history, performing a medically appropriate examination, counseling and educating the patient/family/caregiver, and ordering medications, tests, or procedures. Harjeet Bernard MD documented in this encounterEast [facility] Hospital01-04-2023 Miscellaneous Notes* Telephone Encounter - Cleo Chávez RN - 10/03/2022 1:26 PM EST Discussed with Dr. Denise. Per patient: drain is still in place, and draining, the y port to flush has broken off. Dr. Denise would like to make sure this is draining and requested a pic of drain to be sent. I discussed with patient they will send through [employer] * Telephone Encounter - Callie Hall - 10/02/2022 9:12 AM EST Y drain broke over the weekend. Still able to drain but wants to know what he should do. States theY part with the clamp broke off. [phone] documented in this encounterEast [facility] Hospital12-30-2022 History and physical note * Monroe Maloney [...] 09/28/2022 Time: 12:43 PM documented in this encounterEast Ohio Regional Hospital12-16-2022 History of Present illness Narrative* Nicolasa Denise, - 09/14/2022 9:40 AM EST COLORECTAL SURGERY [...] of treatment plan: high documented in this encounterEast Ohio Regional Hospital12-16-2022 History of Present illness Narrative* RT Judith(R) - 09/14/2022 8:20 AM EST Radiology Service [...] 14, 2022 8:44 AM documented in this encounterEast [facility] Hospital12-02-2022 Miscellaneous Notes* Telephone Encounter - Callie Hall - 08/31/2022 11:14 AM EST Pt. Calling stating he needs a letter stating why he is still out of work and unable to return to work [phone] ATTN: Annabellucia Arnold (STD) phone number: [phone] *Letter sent at 3:30 pm documented in this encounterEast Ohio [facility] Hospital11-28-2022 History of Present illness Narrative* Nicolasa Denise [...] - soft, NT, ND, percutaneous drain with SEN bulb containing thick white cloudy fluid Extrem [...] of treatment plan: high documented in this encounterEast Ohio [facility] Hospital11-14-2022 Miscellaneous Notes* Telephone Encounter - Cleo Chávez [...] moved since he noticed it came loose. [phone] documented in this encounterEast Ohio Regional Hospital11-02-2022 History of Present illness Narrative* Beckie Eaton DO - 08/01/2022 12:15 PM EDT Images from the original note were not included. 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 VM consulted for flinging of post-operative PVT on [...] RTC in 3-4 months or sooner PRN Beckie Eaton DO documented in this encounterEast Ohio Regional Hospital10-31-2022 History of Present illness Narrative* Amanda Camargo RN - 07/30/2022 11:34 AM EDT [facility] [place] [id number] Patient: Dov Zepeda First Patient Address: [address] [place] [address] [place] [address] Preferred Gender: male Date of : 1970 Type of Stoma: End Ileostomy Diagnosis: Low-grade mucinous neoplasm of the appendix: OSTOMY SUPPLY ORDER FORM [facility]. Accessories: 10/03 [employer] Convex Insert 12/01 Wafer # [id number] 30 day use - 2 Boxes Other: NuHope support belt [id number] 2 per year Refills: 11 Attending Physician: Dr. Denise For immediate authorization, please contact the physician s office. [facility] Nurse: VIKY Levine, CWOCN SIGNATURE: Amanda Camargo RN PATIENT NAME: Dov Zepeda First DATE: July 30, 2022 TIME: 11:34 AM CONTACT #: [phone] EMAIL: [email or web address] * Amanda Camargo RN - 07/30/2022 11:21 AM EDT ET/WOCN Nursing Consult Topic: ET/WOCN Consultation Note ET Outcome: Patient seen today for follow up appointment with Dr Denise. Patient denies any issueswith his current pouching system. Upon assessment circumferential undermining noted. Pouching system slightly modified, convex insert added. Patient given supplies. Order form faxed to [employer]. Patient also requesting to be fit for a [employer] support belt. Measurements are 36.5 lying, 36 standing,5 width belt, order number is [id number]. Patient was fit and order was added to his order form for [employer]. ET's Next Scheduled Visit: as needed Stoma Type: End ileostomy Diameter:1 1/8 Location: RUQ Protrusion: Budded Mucosal condition and [...] Amanda Camargo RN BSN CWOCN on-call pager [phone] M-F 8-4, weekends 7-3 documented in this encounterEast Ohio Regional Hospital10-31-2022 History of Present illness Narrative* Nicolasa Denise, [...] of treatment plan: high documented in this encounterEast [facility] Regional Hospital10-27-2022 Nurse Note* Amanda Solorzano Adm Asst I - 07/26/2022 10:29 AM EDT Per orders of will stop as planned- he has enough IV abx until Saturday 07/28. Home carenurse Ok to pull out picc on Saturday if home care is able to do so. IF not, Saturday is fine. Message sent to Pharmacy. Amanda Solorzano Adm Asst I documented in this encounterEast Ohio Regional Hospital10-27-2022 History of Present illness Narrative* Silvana Herrera MD - 07/26/2022 10:00 AM EDT VIRTUAL VISIT PROGRESS NOTE This is a virtual visit using Jimmy Fairly video visit. It required patient-provider interaction for [...] which included preparing to see the patient, [id number] patient care, and completing clinical documentation Silvana Herrera MD documented in this encounterEast Ohio Regional Hospital10-21-2022 History of Present illness Narrative* Graciela Weeks RN - 07/20/2022 3:14 PM EDT TRANSITION CARE MANAGEMENT (TCM) FOLLOW-UP NOTE Provider Action/FYI: Attempted to reach patient. Unable to reach patient. Left message. Summary: SUMMARY: Pt discharged from [facility] on 06/28/22. Admitted for: Mass of appendix Concerns: Unable to reach patient. Left message. Manager Configuration plan for next outreach: No further follow up needed at this time Signature Graciela Weeks RN July 20, 2022 documented in this encounterEast Ohio Regional Hospital10-20-2022 Nurse Note* Amanda Danielson RN - 07/19/2022 [...] LPN In Department: GASTROENTEROLOGY documented in this encounterEast Ohio Regional Hospital10-14-2022 History of Present illness Narrative* Graciela Weeks [...] Dept Phone 07/19/2022 1:00 PM HANNAH MCNAIR Mn Q Bldg [phone] 07/19/2022 1:00 PM ELIEZER ENDO Q3R3 Mn Q Bldg [phone] 07/26/2022 10:00 AM SILVANA HERRERA Mn G Bldg [phone] 07/30/2022 10:00 AM NICOLASA DENISE Mn A Bldg [phone] 08/01/2022 12:15 PM BECKIE EATON J Bldg [phone] Patient identified by name and date of : YES Spoke to patient Summary: SUMMARY: Pt discharged from [facility] on 06/28/22. Admitted for: Mass of appendix Operations During Hospitalization: 05/29/22: Exploratory laparotomy Debulking Omentectomy Total colectomy with LAR End ileostomy Splenectomy Ureteral stent placement Debulking of mucin from small bowel Frozen from omentum - LGMN 06/01/22: Reopening of recent laparotomy Resection of Benton's capsule of liver Resection of multiple mucinous nodules through out - resection of splenic hilum Debulking Intraoperative hyperthermic chemo administration over 90 mins Mitomycin C Procedures During Hospitalization: Blood transfusion Abdominal x-ray MRCP ERCP PICC line placement Chest x-ray Abdomen/pelvis CT scan Liver US CT-guided drain placement to abdominopelvic fluid collections x2 Concerns: Denies needs or concerns Manager Configuration plan for next outreach: No further follow up needed at this time Signature Graciela Weeks RN July 13, 2022 documented in this encounterEast Ohio Regional Hospital10-13-2022 Miscellaneous Notes* Telephone Encounter - Niraj Miller [...] have family/friend present for procedure transport home:Patient/patient entry level account representative was told that if they do [...] area. Any barriers to Patient learning: Patient/Patient Anodiser responded appropriately on phone. Type of instruction given: Verbal by telephone contact. NIRAJ Miller RN documented in this encounterEast Ohio Regional Hospital10-12-2022 Nurse Note* Amanda Solorzano Adm Asst I - 07/11/2022 4:05 PM EDT Per orders of maintain picc, may need to restart IV antibiotics. Further orders to follow. Message sent to Pharmacy. mAanda Solorzano Adm Asst I documented in this encounterEast Ohio Regional Hospital10-12-2022 Miscellaneous Notes* Telephone Encounter - Silvana Herrera MD - 07/11/2022 3:05 PM EDT Called patient. Will discuss with Dr. Denise. documented in this encounterEast Ohio Regional Hospital10-11-2022 History of Present illness Narrative* Haley Albright RT(R) - 07/10/2022 3:20 PM EDT Radiology Service [...] 10, 2022 3:00 PM documented in this encounterEast Ohio Regional Hospital10-10-2022 Miscellaneous Notes* Telephone Encounter - Liseth Castellano [...] EDT July 09, 2022 Patient Contact Number: [phone] (home) [phone] (cell) Patient last seen within the last [...] days. Yes Madisyn Rai documented in this encounterEast Ohio Regional Hospital10-10-2022 Instructions* Patient Instructions* Silvana Herrera MD - 07/09/2022 11:18 AM EDT Vascular Medicine recs: -continue lovenox 1mg/kg injections twice daily -follow up with vascular medicine in 3-4 weeks for continued anticoagulation management and monitoring. (Tentatively August 01 video visit per their office, if this does not appear in mychart by next week please call Dr. Beckie Eaton office at [phone]) documented in this encounterEast Ohio Regional Hospital10-10-2022 History of Present illness Narrative* Silvana Herrera [...] Abs Lymph 1.00 - 4.00 k/uL 1.21 [place]% % 22.[address] [place] <0.87 k/uL 1.48 (H) Eosin% % 1.1 [...] locally Silvana Herrera MD documented in this encounterEast Ohio Regional Hospital10-10-2022 History of Present illness Narrative* Gail Kauffman RN - 07/09/2022 10:06 AM EDT ET/WOCN Nursing Consult Topic: ET/WOCN Consultation Note ET Outcome: The patient is here to see Dr. Denise and [facility] nursing. The pouching system is working well for him. Provided information on supportive bands or wraps from [employer] and [employer]. ET's Next Scheduled Visit: [...] 45 minutes Gail Kauffman RN, BSN, CWOCN [employer] Pager [phone] (M-F 7-4 and 7-3 on weekends) documented in this encounterEast Ohio Regional Hospital10-10-2022 History of Present illness Narrative* Nicolasa Denise, DO - 07/09/2022 8:40 AM EDT COLORECTAL SURGERY [...] of treatment plan: high documented in this encounterEast Ohio Regional Hospital10-08-2022 History of Present illness Narrative* Graciela Weeks [...] Provider Location Dept Phone 07/09/2022 8:40 AM HOWIE NICOLASA Serrano Mn A Bldg [phone] 07/09/2022 10:15 AM [facility] TH[facility]Y Mn A Bl [phone] 07/09/2022 11:00 AM SILVANA HERRERA G Bldg [phone] 07/19/2022 1:00 PM HANNAH MCNAIR Mn Q Bldg [phone] 07/19/2022 1:00 PM MC ENDO Q3R3 Mn Q Bldg [phone] 08/01/2022 12:15 PM BECKIE EATON J Bldg [phone] Patient identified by name and date of : YES Spoke to patient Summary: Pt discharged from [facility] on 06/28/22. Admitted for: Mass of appendix Operations During Hospitalization: 05/29/22: Exploratory laparotomy Debulking Omentectomy Total colectomy with LAR End ileostomy Splenectomy Ureteral stent placement Debulking of mucin from small bowel Frozen from omentum - LGMN 06/01/22: Reopening of recent laparotomy Resection of Benton's capsule of liver Resection of multiple mucinous nodules through out - resection of splenic hilum Debulking Intraoperative hyperthermic chemo administration over 90 mins Mitomycin C Concerns: Denies needs or concerns Manager Configuration plan for next outreach: No further follow up needed at this time Signature Graciela Weeks RN July 07, 2022 documented in this encounterEast Ohio Regional Hospital10-04-2022 Nurse Note* Dmitriy Starks RN - 07/03/2022 11:18 AM EDT Orders received from Dr Herrera to extend COPAT to July 09, 2022 . Dmitriy Starks RN documented in this encounterEast Ohio Regional Hospital09-30-2022 History of Present illness Narrative* Graciela Weeks RN - 06/29/2022 1:06 PM EDT TCM Home Visit Referral Source of Stratification: TCM [facility] Hospital Admission Status: Discharged Readmission Risk [...] Phone 07/09/2022 8:40 AM NICOLASA DENISE A [facility] [phone] 07/09/2022 10:15 AM STOMA THERAPY Mn A [facility] [phone] 07/09/2022 11:00 AM SILVANA HERRERA G [facility] [phone] 07/19/2022 1:00 PM HANNAH MCNAIR Mn Q [facility] [phone] 07/19/2022 1:00 PM MC ENDO Q3R3 Mn Q [facility] [phone] 08/01/2022 12:15 PM BECKIE EATON J [facility] [phone] Home Health Care Agency [facility] Start of Care 06/29/22 Home Infusion [facility] Agency [facility] Phone/Fax P: [phone] Start of Care 06/28/22 SUMMARY: Pt discharged from [facility] on 06/28/22. Admitted for: Mass of [...] RN and I am calling from the [facility] on behalf of your PCP, Harjeet Bernard [...] like to speak with a social work fast food team member to help give you support for any [...] I will send your request to a photo technician who will contact and assist you with [...] possible). Graciela Weeks RN documented in this encounterEast Ohio Regional Hospital09-15-2022 Miscellaneous Notes* Telephone Encounter - Rowena Angel RN - 06/14/2022 11:30 AM EDT Nora from [facility] calls and notified that provider will follow home health orders. Rowena Angel RN * Telephone Encounter - Harjeet Bernard MD - 06/13/2022 7:28 PM EDT Will follow for HH orders * Telephone Encounter - Kiya Bland RN - 06/13/2022 2:13 PM EDT Nora @ [facility] calling to let PCP know patient is being discharged from [facility] on 06/15 with home health orders for nursing and PT. Patient has been hospitalized for surgery for exploratory laparotomy and tumor debulking. She is asking if agree to follow home health orders? Kiya Bland, RN documented in this encounterEast Ohio Regional Hospital09-09-2022 History of Past illness Narrative* Problem Noted [...] EBL Bedside TTE is hyperdynamic, collapsed IVC. Grady with SVRI of 3600 Repeat bedside echo [...] of this encounter (statuses as of 06/29/2022) [facility] of Past illness Narrative* Problem Noted [...] EBL Bedside TTE is hyperdynamic, collapsed IVC. Grady with SVRI of 3600 Repeat bedside echo [...] of this encounter (statuses as of 07/03/2022) [facility] of Past illness Narrative* Problem Noted [...] EBL Bedside TTE is hyperdynamic, collapsed IVC. Grady with SVRI of 3600 Repeat bedside echo [...] of this encounter (statuses as of 07/07/2022) [facility] of Past illness Narrative* Problem Noted [...] EBL Bedside TTE is hyperdynamic, collapsed IVC. Grady with SVRI of 3600 Repeat bedside echo [...] of this encounter (statuses as of 07/09/2022) [facility] of Past illness Narrative* Problem Noted [...] EBL Bedside TTE is hyperdynamic, collapsed IVC. Grady with SVRI of 3600 Repeat bedside echo [...] of this encounter (statuses as of 07/09/2022) [facility] of Past illness Narrative* Problem Noted [...] EBL Bedside TTE is hyperdynamic, collapsed IVC. Grady with SVRI of 3600 Repeat bedside echo [...] of this encounter (statuses as of 07/11/2022) [facility] of Past illness Narrative* Problem Noted [...] EBL Bedside TTE is hyperdynamic, collapsed IVC. Grady with SVRI of 3600 Repeat bedside echo [...] of this encounter (statuses as of 07/11/2022) [facility] of Past illness Narrative* Problem Noted [...] EBL Bedside TTE is hyperdynamic, collapsed IVC. Grady with SVRI of 3600 Repeat bedside echo [...] of this encounter (statuses as of 07/12/2022) [facility] of Past illness Narrative* Problem Noted [...] EBL Bedside TTE is hyperdynamic, collapsed IVC. Grady with SVRI of 3600 Repeat bedside echo [...] of this encounter (statuses as of 07/13/2022) [facility] of Past illness Narrative* Problem Noted [...] EBL Bedside TTE is hyperdynamic, collapsed IVC. Grady with SVRI of 3600 Repeat bedside echo [...] of this encounter (statuses as of 07/16/2022) [facility] of Past illness Narrative* Problem Noted [...] EBL Bedside TTE is hyperdynamic, collapsed IVC. Grady with SVRI of 3600 Repeat bedside echo [...] of this encounter (statuses as of 07/17/2022) [facility] of Past illness Narrative* Problem Noted [...] EBL Bedside TTE is hyperdynamic, collapsed IVC. Grady with SVRI of 3600 Repeat bedside echo [...] of this encounter (statuses as of 07/17/2022) [facility] of Past illness Narrative* Problem Noted [...] EBL Bedside TTE is hyperdynamic, collapsed IVC. Grady with SVRI of 3600 Repeat bedside echo [...] of this encounter (statuses as of 07/20/2022) [facility] of Past illness Narrative* Problem Noted [...] EBL Bedside TTE is hyperdynamic, collapsed IVC. Grady with SVRI of 3600 Repeat bedside echo [...] of this encounter (statuses as of 07/20/2022) [facility] of [facility] Narrative* Problem Noted [...] EBL Bedside TTE is hyperdynamic, collapsed IVC. Grady with SVRI of 3600 Repeat bedside echo [...] of this encounter (statuses as of 07/25/2022) [facility] Past illness Narrative* Problem Noted [...] EBL Bedside TTE is hyperdynamic, collapsed IVC. Grady with SVRI of 3600 Repeat bedside echo [...] of this encounter (statuses as of 07/26/2022) [facility] of Past illness Narrative* Problem Noted [...] EBL Bedside TTE is hyperdynamic, collapsed IVC. Grady with SVRI of 3600 Repeat bedside echo [...] of this encounter (statuses as of 07/30/2022) [facility] of Past illness Narrative* Problem Noted [...] EBL Bedside TTE is hyperdynamic, collapsed IVC. Grady with SVRI of 3600 Repeat bedside echo [...] of this encounter (statuses as of 07/30/2022) [facility] illness Narrative* Problem Noted [...] EBL Bedside TTE is hyperdynamic, collapsed IVC. Grady with SVRI of 3600 Repeat bedside echo [...] of this encounter (statuses as of 07/31/2022) [facility] of Past illness Narrative* Problem Noted [...] EBL Bedside TTE is hyperdynamic, collapsed IVC. Grady with SVRI of 3600 Repeat bedside echo [...] of this encounter (statuses as of 08/02/2022) [facility] illness Narrative* Problem Noted [...] EBL Bedside TTE is hyperdynamic, collapsed IVC. Grady with SVRI of 3600 Repeat bedside echo [...] of this encounter (statuses as of 08/10/2022) [facility] Narrative* Problem Noted [...] EBL Bedside TTE is hyperdynamic, collapsed IVC. Grady with SVRI of 3600 Repeat bedside echo [...] of this encounter (statuses as of 08/14/2022) [facility] Narrative* Problem Noted [...] EBL Bedside TTE is hyperdynamic, collapsed IVC. Grady with SVRI of 3600 Repeat bedside echo [...] of this encounter (statuses as of 08/21/2022) [facility] Narrative* Problem Noted [...] EBL Bedside TTE is hyperdynamic, collapsed IVC. Grady with SVRI of 3600 Repeat bedside echo [...] of this encounter (statuses as of 08/30/2022) [facility] Narrative* Problem Noted [...] EBL Bedside TTE is hyperdynamic, collapsed IVC. Grady with SVRI of 3600 Repeat bedside echo [...] of this encounter (statuses as of 09/15/2022) [facility] of [facility] Narrative* Problem Noted Date Resolved Date Hypokalemia 06/08/2022 06/27/2022 Pancreatic duct leak 06/06/2022 06/27/2022 Last Assessment & Plan: Continue drain ERCP tomorrow Broad spectrum Abx Hypovolemia 05/29/2022 06/27/2022 Last Assessment & Plan: Assessment: S/p ex lap 05/29 with intraoperative hypotension. 1L EBL Bedside TTE is hyperdynamic, collapsed IVC. Grady with SVRI of 3600 Repeat bedside echo [...] of this encounter (statuses as of 10/02/2022) [facility] of [facility] illness Narrative* Problem Noted Date Resolved Date Hypokalemia 06/08/2022 06/27/2022 Pancreatic duct leak 06/06/2022 06/27/2022 Last Assessment & Plan: Continue drain ERCP tomorrow Broad spectrum Abx Hypovolemia 05/29/2022 06/27/2022 Last Assessment & Plan: Assessment: S/p ex lap 05/29 with intraoperative hypotension. 1L EBL Bedside TTE is hyperdynamic, collapsed IVC. Grady with SVRI of 3600 Repeat bedside echo [...] of this encounter (statuses as of 10/03/2022) [facility] of [facility] Narrative* Problem Noted Date Resolved Date Hypokalemia 06/08/2022 06/27/2022 Pancreatic duct leak 06/06/2022 06/27/2022 Last Assessment & Plan: Continue drain ERCP tomorrow Broad spectrum Abx Hypovolemia 05/29/2022 06/27/2022 Last Assessment & Plan: Assessment: S/p ex lap 05/29 with intraoperative hypotension. 1L EBL Bedside TTE is hyperdynamic, collapsed IVC. Grady with SVRI of 3600 Repeat bedside echo [...] of this encounter (statuses as of 10/04/2022) [facility] of [facility] illness Narrative* Problem Noted Date Resolved Date Hypokalemia 06/08/2022 06/27/2022 Pancreatic duct leak 06/06/2022 06/27/2022 Last Assessment & Plan: Continue drain ERCP tomorrow Broad spectrum Abx Hypovolemia 05/29/2022 06/27/2022 Last Assessment & Plan: Assessment: S/p ex lap 05/29 with intraoperative hypotension. 1L EBL Bedside TTE is hyperdynamic, collapsed IVC. Grady with SVRI of 3600 Repeat bedside echo [...] of this encounter (statuses as of 10/05/2022) [facility] History of Past illness Narrative* Problem Noted Date Resolved Date Hypokalemia 06/08/2022 06/27/2022 Pancreatic duct leak 06/06/2022 06/27/2022 Last Assessment & Plan: Continue drain ERCP tomorrow Broad spectrum Abx Hypovolemia 05/29/2022 06/27/2022 Last Assessment & Plan: Assessment: S/p ex lap 05/29 with intraoperative hypotension. 1L EBL Bedside TTE is hyperdynamic, collapsed IVC. Grady with SVRI of 3600 Repeat bedside echo [...] of this encounter (statuses as of 10/19/2022) [facility] History of Past illness Narrative* Problem Noted Date Resolved Date Hypokalemia 06/08/2022 06/27/2022 Pancreatic duct leak 06/06/2022 06/27/2022 Last Assessment & Plan: Continue drain ERCP tomorrow Broad spectrum Abx Hypovolemia 05/29/2022 06/27/2022 Last Assessment & Plan: Assessment: S/p ex lap 05/29 with intraoperative hypotension. 1L EBL Bedside TTE is hyperdynamic, collapsed IVC. Grady with SVRI of 3600 Repeat bedside echo [...] of this encounter (statuses as of 11/12/2022) [facility] of Past illness Narrative* Problem Noted Date Resolved Date Hypokalemia 06/08/2022 06/27/2022 Pancreatic duct leak 06/06/2022 06/27/2022 Last Assessment & Plan: Continue drain ERCP tomorrow Broad spectrum Abx Hypovolemia 05/29/2022 06/27/2022 Last Assessment & Plan: Assessment: S/p ex lap 05/29 with intraoperative hypotension. 1L EBL Bedside TTE is hyperdynamic, collapsed IVC. Grady with SVRI of 3600 Repeat bedside echo [...] of this encounter (statuses as of 11/13/2022) [facility] History of Past illness Narrative* Problem Noted Date Resolved Date Hypokalemia 06/08/2022 06/27/2022 Pancreatic duct leak 06/06/2022 06/27/2022 Last Assessment & Plan: Continue drain ERCP tomorrow Broad spectrum Abx Hypovolemia 05/29/2022 06/27/2022 Last Assessment & Plan: Assessment: S/p ex lap 05/29 with intraoperative hypotension. 1L EBL Bedside TTE is hyperdynamic, collapsed IVC. Grady with SVRI of 3600 Repeat bedside echo [...] of this encounter (statuses as of 11/15/2022) [facility] History of Past illness Narrative* Problem Noted Date Resolved Date Hypokalemia 06/08/2022 06/27/2022 Pancreatic duct leak 06/06/2022 06/27/2022 Last Assessment & Plan: Continue drain ERCP tomorrow Broad spectrum Abx Hypovolemia 05/29/2022 06/27/2022 Last Assessment & Plan: Assessment: S/p ex lap 05/29 with intraoperative hypotension. 1L EBL Bedside TTE is hyperdynamic, collapsed IVC. Grady with SVRI of 3600 Repeat bedside echo [...] of this encounter (statuses as of 11/22/2022) [facility] History of Past illness Narrative* Problem Noted Date Resolved Date Hypokalemia 06/08/2022 06/27/2022 Pancreatic duct leak 06/06/2022 06/27/2022 Last Assessment & Plan: Continue drain ERCP tomorrow Broad spectrum Abx Hypovolemia 05/29/2022 06/27/2022 Last Assessment & Plan: Assessment: S/p ex lap 05/29 with intraoperative hypotension. 1L EBL Bedside TTE is hyperdynamic, collapsed IVC. Grady with SVRI of 3600 Repeat bedside echo [...] of this encounter (statuses as of 12/06/2022) [facility] History of Past illness Narrative* Problem Noted Date Resolved Date Hypokalemia 06/08/2022 06/27/2022 Pancreatic duct leak 06/06/2022 06/27/2022 Last Assessment & Plan: Continue drain ERCP tomorrow Broad spectrum Abx Hypovolemia 05/29/2022 06/27/2022 Last Assessment & Plan: Assessment: S/p ex lap 05/29 with intraoperative hypotension. 1L EBL Bedside TTE is hyperdynamic, collapsed IVC. Grady with SVRI of 3600 Repeat bedside echo [...] of this encounter (statuses as of 12/24/2022) [facility] History of Past illness Narrative* Problem Noted Date Resolved Date Hypokalemia 06/08/2022 06/27/2022 Pancreatic duct leak 06/06/2022 06/27/2022 Last Assessment & Plan: Continue drain ERCP tomorrow Broad spectrum Abx Hypovolemia 05/29/2022 06/27/2022 Last Assessment & Plan: Assessment: S/p ex lap 05/29 with intraoperative hypotension. 1L EBL Bedside TTE is hyperdynamic, collapsed IVC. Grady with SVRI of 3600 Repeat bedside echo [...] of this encounter (statuses as of 12/28/2022) [facility] History of Past illness Narrative* Problem Noted Date Resolved Date Hypokalemia 06/08/2022 06/27/2022 Pancreatic duct leak 06/06/2022 06/27/2022 Last Assessment & Plan: Continue drain ERCP tomorrow Broad spectrum Abx Hypovolemia 05/29/2022 06/27/2022 Last Assessment & Plan: Assessment: S/p ex lap 05/29 with intraoperative hypotension. 1L EBL Bedside TTE is hyperdynamic, collapsed IVC. Grady with SVRI of 3600 Repeat bedside echo [...] of this encounter (statuses as of 01/11/2023) [facility] History of Past illness Narrative* Problem Noted Date Resolved Date Hypokalemia 06/08/2022 06/27/2022 Pancreatic duct leak 06/06/2022 06/27/2022 Last Assessment & Plan: Continue drain ERCP tomorrow Broad spectrum Abx Hypovolemia 05/29/2022 06/27/2022 Last Assessment & Plan: Assessment: S/p ex lap 05/29 with intraoperative hypotension. 1L EBL Bedside TTE is hyperdynamic, collapsed IVC. Grady with SVRI of 3600 Repeat bedside echo [...] of this encounter (statuses as of 01/23/2023) [facility] History of Past illness Narrative* Problem Noted Date Resolved Date Hypokalemia 06/08/2022 06/27/2022 Pancreatic duct leak 06/06/2022 06/27/2022 Last Assessment & Plan: Continue drain ERCP tomorrow Broad spectrum Abx Hypovolemia 05/29/2022 06/27/2022 Last Assessment & Plan: Assessment: S/p ex lap 05/29 with intraoperative hypotension. 1L EBL Bedside TTE is hyperdynamic, collapsed IVC. Grady with SVRI of 3600 Repeat bedside echo [...] of this encounter (statuses as of 02/13/2023) [facility] History of Past illness Narrative* Problem Noted Date Diagnosed Date Resolved Date Hypokalemia 06/08/2022 06/27/2022 Pancreatic duct leak 06/06/2022 022 Last Assessment & Plan: Continue drain ERCP tomorrow Broad spectrum Abx Hypovolemia 05/29/2022 06/27/2022 Last Assessment & Plan: Assessment: S/p ex lap 05/29 with intraoperative hypotension. 1L EBL Bedside TTE is hyperdynamic, collapsed IVC. Grady with SVRI of 3600 Repeat bedside echo [...] of this encounter (statuses as of 04/18/2023) [facility] History of Past illness Narrative* Problem Noted Date Diagnosed Date Resolved Date Hypokalemia 06/08/2022 06/27/2022 Pancreatic duct leak 06/06/2022 022 Last Assessment & Plan: Continue drain ERCP tomorrow Broad spectrum Abx Hypovolemia 05/29/2022 06/27/2022 Last Assessment & Plan: Assessment: S/p ex lap 05/29 with intraoperative hypotension. 1L EBL Bedside TTE is hyperdynamic, collapsed IVC. Grady with SVRI of 3600 Repeat bedside echo [...] of this encounter (statuses as of 05/14/2023) [facility] History of Past illness Narrative* Problem Noted Date Diagnosed Date Resolved Date Hypokalemia 06/08/2022 06/27/2022 Pancreatic duct leak 06/06/2022 022 Last Assessment & Plan: Continue drain ERCP tomorrow Broad spectrum Abx Hypovolemia 05/29/2022 06/27/2022 Last Assessment & Plan: Assessment: S/p ex lap 05/29 with intraoperative hypotension. 1L EBL Bedside TTE is hyperdynamic, collapsed IVC. Grady with SVRI of 3600 Repeat bedside echo [...] of this encounter (statuses as of 06/25/2023) [facility] History of Past illness Narrative* Problem Noted Date Diagnosed Date Resolved Date Hypokalemia 06/08/2022 06/27/2022 Pancreatic duct leak 06/06/2022 022 Last Assessment & Plan: Continue drain ERCP tomorrow Broad spectrum Abx Hypovolemia 05/29/2022 06/27/2022 Last Assessment & Plan: Assessment: S/p ex lap 05/29 with intraoperative hypotension. 1L EBL Bedside TTE is hyperdynamic, collapsed IVC. Grady with SVRI of 3600 Repeat bedside echo [...] of this encounter (statuses as of 08/04/2023) [facility] History of Past illness Narrative* Problem Noted Date Diagnosed Date Resolved Date Hypokalemia 06/08/2022 06/27/2022 Pancreatic duct leak 06/06/2022 022 Last Assessment & Plan: Continue drain ERCP tomorrow Broad spectrum Abx Hypovolemia 05/29/2022 06/27/2022 Last Assessment & Plan: Assessment: S/p ex lap 05/29 with intraoperative hypotension. 1L EBL Bedside TTE is hyperdynamic, collapsed IVC. Grady with SVRI of 3600 Repeat bedside echo [...] of this encounter (statuses as of 08/04/2023) [facility] History of Past illness Narrative* Problem Noted Date Diagnosed Date Resolved Date Hypokalemia 06/08/2022 06/27/2022 Pancreatic duct leak 06/06/2022 022 Last Assessment & Plan: Continue drain ERCP tomorrow Broad spectrum Abx Hypovolemia 05/29/2022 06/27/2022 Last Assessment & Plan: Assessment: S/p ex lap 05/29 with intraoperative hypotension. 1L EBL Bedside TTE is hyperdynamic, collapsed IVC. Grady with SVRI of 3600 Repeat bedside echo [...] of this encounter (statuses as of 11/12/2023) [facility] History of Past illness Narrative* Problem Noted Date Diagnosed Date Resolved Date Hypokalemia 06/08/2022 06/27/2022 Pancreatic duct leak 06/06/2022 022 Last Assessment & Plan: Continue drain ERCP tomorrow Broad spectrum Abx Hypovolemia 05/29/2022 06/27/2022 Last Assessment & Plan: Assessment: S/p ex lap 05/29 with intraoperative hypotension. 1L EBL Bedside TTE is hyperdynamic, collapsed IVC. Grady with SVRI of 3600 Repeat bedside echo [...] of this encounter (statuses as of 01/16/2024) [facility] History of Past illness Narrative* Problem Noted [...] of this encounter (statuses as of 06/07/2022) [facility] History of Past illness Narrative* Problem Noted [...] of this encounter (statuses as of 06/14/2022) [facility] History of Past illness Narrative* Problem Noted [...] of this encounter (statuses as of 06/26/2022) [facility]08-12-20[facility] Instructions* Patient Instructions* Monroe Ortiz MD - 05/11/2022 9:36 AM EDT PATIENT PREOPERATIVE INSTRUCTIONS Nicolasa Denise, DO has scheduled you for your procedure at this surgery center: [facility] [place] [facility] Scheduling Office: [phone] --[address] [place] [address]. Please read below carefully for your personalized [...] call the Saturday before. Your surgeon s photo technician will tell you what time to call the office. - If you have not reached the departmental photo technician by 5 P.M., call [phone] after 5 P.M. the day before your surgery. Please be aware that emergency situations arise, which may delay or change your surgical time. If this happens, we will notify you as soon as possible and regret any inconvenience. If you already have an Advance Directive, please fax a copy to [phone] or email to for it to be [...] day. Monroe Ortiz MD [facility] History and physical note * Monroe Ortiz [...] fevers. Neuro: No history of TIA's, stroke, LITERACY EDUCATION PROFESSOR tumor, impaired sensorium, hemiplegia, paraplegia or quadraplegia. No neurological symptoms or problems. Respiratory: No history of current cough or dyspnea, or pneumonia in the past 6 weeks. No history of respiratory/pulmonary symptoms or problems. +AMBROSE Cardiovascular: No history of HTN requiring medication, no history of angina, CHF, [place], cardiac surgery or stents. Denies rest pain, [...] 05/11/2022 Time: 10:57 AM documented [facility] History and physical note * Nicolasa Denise [...] Laterality Date COLONOSCOPY SCREENING 04/26/2022 EGD [facility] SPEC VARICIES INJ 04/26/2022 Current Outpatient Medications [...] ROS obtained by others. documented in [facility] encounter[facility] History of Present illness Narrative* Andre Parnell [...] Tissues: No significant finding. Lower thorax: Unremarkable. 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 IMPRESSION: Serosal [...] Laterality Date COLONOSCOPY SCREENING 04/26/2022 EGD [facility] SPEC VARICIES INJ 04/26/2022 ALLERGIES No Known [...] alcohol. Two children. Lives with SO in [place]. Works at [employer] in [place]. Family history: 1) Father--Pancreas cancer age 72. [...] No jaundice or rash. No petechiae. 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 No focal motor [...] which included preparing to see the patient, [id number] patient care, completing clinical documentation, obtaining and/or reviewing separately obtained history, performing a medically appropriate examination, counseling and educating the pat ient/family/caregiver, independently interpreting results (not separately reported) and communicating results to the patient/family/caregiver. Andre Parnell DO documented [facility] encounter[facility] History of Present illness Narrative* Priscila Clarke MD - 05/02/2022 5:40 PM EDT FOLLOW UP VISIT - ENDOSCOPY NAME: Dov Zepeda [facility] NO.: [id number] DATE OF SERVICE: 05/02/2022 : 1970 REFERRING [...] needed. Priscila Clarke MD documented in this encounterEast [facility]08[facility] Miscellaneous Notes* Telephone Encounter - Priscila Clarke MD - 04/30/2022 4:14 PM EDT Spoke with patient. Discussed plan for care with Dr. Nicolasa Denise. Feels that the patient will likely need exploration and HIPAC. His office will contact him and try to get him seen this week. documented [facility] encounter[facility] Nurse Note* Evie Moise RN - 04/26/2022 [...] will be going forward. documented in this encounterEast [facility]07-[facility]22 History and physical note * Priscila Clarke [...] completed. Priscila Clarke MD documented in this encounterEast [facility]07[facility]22 Miscellaneous Notes* Telephone Encounter - Priscila Clarke [...] as this is urgent.. documented in this encounterEast [facility]07-[facility]22 Miscellaneous Notes* Telephone Encounter - Lily Rogers [...] know. Andre Parnell DO documented in this encounterEast [facility]07[facility] History of Present illness Narrative* Noemí Britt, [...] 2022 TIME: 1:57 PM documented in this encounterEast [facility]06-[facility]22 Miscellaneous Notes* Telephone Encounter - Kiya Bland [...] results. * Telephone Encounter - Julissa Ugarte APRN.NED - 03/05/2022 4:36 PM EDT Recommend he [...] 1.00 - 4.00 k/uL 1.10 0.85 (L) [place]% % 9.[address] [place] <0.87 k/uL 0.57 0.65 Eosin% % 2.9 [...] 1,245 pg/mL >2,000 (H) documented in this encounterEast [facility]06-[facility]22 History of Present illness Narrative* Julissa Ugarte [...] (mg/dL) Date Value 10/11/2018 118 LDL Chol, [place] (mg/dL) Date Value 11/03/2011 109 09/28/2010 115 Triglyceride (mg/dL) Date Value 10/11/2018 75 Anxiety / depression: working well, no current counselor, no voiced SI/HI. AMBROSE: Got Autopap in 1999. Autopap adjustment made in pressure, recently was too high, now pressure at 6 and working better. Does not see sleep medicine doctor currently. [place] [facility]. Review of Systems Constitutional: Negative. Respiratory: Negative. [...] Abs Lymph 1.00 - 4.00 k/uL 1.10 [place]% % 9.[address] [place] <0.87 k/uL 0.57 Eosin% % 2.9 Abs Eosin <0.46 k/uL 0.18 Baso% % 0.5 Abs Baso <0.11 k/uL 0.03 Nucleated Reds 0 /100 WBC 0.0 Absolute nRBC <0.01 k/uL <0.01 <0.01 Diff Type Auto Diff WBC, [place] 3.7 - 11.0 k/uL 4.8 RBC, [place] 4.20 - 6.00 m/uL 4.86 Hemoglobin, [place] 13.0 - 17.0 g/dL 15.0 Hematocrit, [place] 39.0 - 51.0 % 42.6 MCV, [place] 80.0 - 100.0 fL 87.7 MCH, [place] 26.0 - 34.0 pg 30.9 MCHC, [place] 30.5 - 36.0 g/dL 35.2 RDW, [place] 11.5 - 15.0 % 12.6 Platelet Cnt, [place] 150 - 400 k/uL 206 MPV, [place] 9.0 - 12.7 fL 9.2 Neut%, [place] 39.5 - 74.0 % 59.5 Lymp%, [place] 15.9 - 47.3 % 27.9 [place]%, [place] 0.0 - 12.0 % 11.1 Eos%, [place] 0.0 - 6.6 % 1.3 Baso%, [place] 0.0 - 1.2 % 0.2 Abs Neut, [place] 1.45 - 7.50 k/uL 2.84 Abs Lymp, [place] 1.00 - 4.00 k/uL 1.[address] [place], [place] 0.00 - 0.86 k/uL 0.53 Abs Eos, [place] 0.00 - 0.45 k/uL 0.06 Abs Baso, [...] follow up with labs MD Julissa Montemayor APRN.LITERACY EDUCATION PROFESSOR Medical Decision Making: Problems: Moderate: 2+ stable chronic illnesses Data: Unique test(s) ordered: 3+ Risk: Moderate: Drug management Medical Decision Making Level: 4 - Moderate documented in this encounterEast [facility] Hospital03-24-2022 Miscellaneous Notes* Telephone Encounter - Babita Mitchellalyssa Martinez LPN - 12/21/2021 7:45 AM EDT [...] SOFYA: No Please review and advise. Nereida Rodriguez PSS documented in this encounterEast [facility]04-20-2011 History of Past illness Narrative* Problem Noted Date Resolved Date Other adjustment reaction wi th predominant disturbance of other emotions 01/17/2011 01/25/2015 Non-healing surgical wound 07/06/200901/25 Cellulitis and abscess of unspecified site 07/0401/25/2015 Abnormal weight gain 02/18/2006 01/25/2015 OVERWEIGHT 02/18/2006 01/25/2015 documented as of this encounter (statuses as of 12/21/2021) [facility] Narrative* Problem Noted Date Resolved Date Other adjustment reaction wi th predominant disturbance of other emotions 01/17/2011 01/25/2015 Non-healing surgical wound 07/06/200901/25 Cellulitis and abscess of unspecified site 07/0401/25/2015 Abnormal weight gain 02/18/2006 01/25/2015 OVERWEIGHT 02/18/2006 01/25/2015 documented as of this encounter (statuses as of 03/02/2022) [facility] Narrative* Problem Noted Date Resolved Date Other adjustment reaction wi th predominant disturbance of other emotions 01/17/2011 01/25/2015 Non-healing surgical wound 07/06/200901/25 Cellulitis and abscess of unspecified site 07/0401/25/2015 Abnormal weight gain 02/18/2006 01/25/2015 OVERWEIGHT 02/18/2006 01/25/2015 documented as of this encounter (statuses as of 03/05/2022) [place] [address]-20-2011 History of Past illness Narrative* Problem Noted Date Resolved Date Other adjustment reaction wi th predominant disturbance of other emotions 01/17/2011 01/25/2015 Non-healing surgical wound 07/06/200901/25 Cellulitis and abscess of unspecified site 07/0401/25/2015 Abnormal weight gain 02/18/2006 01/25/2015 OVERWEIGHT 02/18/2006 01/25/2015 documented as of this encounter (statuses as of 04/21/2022) [address]20-2011 History of Past illness Narrative* Problem Noted Date Resolved Date Other adjustment reaction wi th predominant disturbance of other emotions 01/17/2011 01/25/2015 Non-healing surgical wound 07/06/200901/25 Cellulitis and abscess of unspecified site 07/0401/25/2015 Abnormal weight gain 02/18/2006 01/25/2015 OVERWEIGHT 02/18/2006 01/25/2015 documented as of this encounter (statuses as of 04/21/2022) [address]20-2011 History of Past illness Narrative* Problem Noted Date Resolved Date Other adjustment reaction wi th predominant disturbance of other emotions 01/17/2011 01/25/2015 Non-healing surgical wound 07/06/200901/25 Cellulitis and abscess of unspecified site 07/0401/25/2015 Abnormal weight gain 02/18/2006 01/25/2015 OVERWEIGHT 02/18/2006 01/25/2015 documented as of this encounter (statuses as of 04/23/2022) [address]20-2011 History of Past illness Narrative* Problem Noted Date Resolved Date Other adjustment reaction wi th predominant disturbance of other emotions 01/17/2011 01/25/2015 Non-healing surgical wound 07/06/200901/25 Cellulitis and abscess of unspecified site 07/0401/25/2015 Abnormal weight gain 02/18/2006 01/25/2015 OVERWEIGHT 02/18/2006 01/25/2015 documented as of this encounter (statuses as of 2022) [address]20-2011 History of Past illness Narrative* Problem Noted Date Resolved Date Other adjustment reaction wi th predominant disturbance of other emotions 01/17/2011 01/25/2015 Non-healing surgical wound 07/06/200901/25 Cellulitis and abscess of unspecified site 07/0401/25/2015 Abnormal weight gain 02/18/2006 01/25/2015 OVERWEIGHT 02/18/2006 01/25/2015 documented as of this encounter (statuses as of 04/27/2022) [address]20-2011 History of Past illness Narrative* Problem Noted Date Resolved Date Other adjustment reaction wi th predominant disturbance of other emotions 01/17/2011 01/25/2015 Non-healing surgical wound 07/06/200901/25 Cellulitis and abscess of unspecified site 07/0401/25/2015 Abnormal weight gain 02/18/2006 01/25/2015 OVERWEIGHT 02/18/2006 01/25/2015 documented as of this encounter (statuses as of 04/30/2022) [address]20-2011 History of Past illness Narrative* Problem Noted Date Resolved Date Other adjustment reaction wi th predominant disturbance of other emotions 01/17/2011 01/25/2015 Non-healing surgical wound 07/06/200901/25 Cellulitis and abscess of unspecified site 07/0401/25/2015 Abnormal weight gain 02/18/2006 01/25/2015 OVERWEIGHT 02/18/2006 01/25/2015 documented as of this encounter (statuses as of 05/03/2022) [address]20-2011 History of Past illness Narrative* Problem Noted Date Resolved Date Other adjustment reaction wi th predominant disturbance of other emotions 01/17/2011 01/25/2015 Non-healing surgical wound 07/06/200901/25 Cellulitis and abscess of unspecified site 07/0401/25/2015 Abnormal weight gain 02/18/2006 01/25/2015 OVERWEIGHT 02/18/2006 01/25/2015 documented as of this encounter (statuses as of 05/03/2022) [address]20-2011 History of Past illness Narrative* Problem Noted Date Resolved Date Other adjustment reaction wi th predominant disturbance of other emotions 01/17/2011 01/25/2015 Non-healing surgical wound 07/06/200901/25 Cellulitis and abscess of unspecified site 07/0401/25/2015 Abnormal weight gain 02/18/2006 01/25/2015 OVERWEIGHT 02/18/2006 01/25/2015 documented as of this encounter (statuses as of 05/11/2022) [place] [address]-20-2011 History of Past illness Narrative* Problem Noted Date Resolved Date Other adjustment reaction wi th predominant disturbance of other emotions 01/17/2011 01/25/2015 Non-healing surgical wound 07/06/200901/25 Cellulitis and abscess of unspecified site 07/0401/25/2015 Abnormal weight gain 02/18/2006 01/25/2015 OVERWEIGHT 02/18/2006 01/25/2015 documented as of this encounter (statuses as of 05/11/2022) [place] [address]20-2011 History of Past illness Narrative* Problem Noted Date Resolved Date Other adjustment reaction wi th predominant disturbance of other emotions 01/17/2011 01/25/2015 Non-healing surgical wound 07/06/200901/25 Cellulitis and abscess of unspecified site 07/0401/25/2015 Abnormal weight gain 02/18/2006 01/25/2015 OVERWEIGHT 02/18/2006 01/25/2015 documented as of this encounter (statuses as of 05/30/2022) [facility] Diagnosis Recurrent major depressive disorder, in partial remission (HCC) documented [facility] this encounter [facility]* Diagnosis Obstructive sleep apnea syndrome- Primary [...] partial remission (HCC) [facility]* Diagnosis Iron deficiency anemia, unspecified iron deficiency anemia type- Primary [facility]* Diagnosis Intra-abdominal and pelvic swelling, mass and lump, unspecified site [facility]* Diagnosis Omental mass- Primary Other specified disorder of peritoneum Other ascites Abdominal mass, unspecified abdominal location [facility] encounter [facility]* Diagnosis Anemia, unspecified type Upper abdominal mass Abdominal pain, other specified site [facility]* Diagnosis Upper abdominal mass- Primary Abdominal pain, other specified site [facility] Diagnosis Mass of appendix- Primary Other and unspecified diseases of appendix Microcytic anemia Iron deficiency anemia, unspecified [facility] Diagnosis Encounter for preoperative assessment- Primary Anemia, unspecified type Obstructive sleep apnea syndrome Obstructive sleep apnea (adult) (pediatric) Hypercholesteremia <130 Pure hypercholesterolemia Low grade mucinous neoplasm of appendix Neoplasm of unspecified nature of digestive system [facility] Diagnosis 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 Neoplasm of unspecified nature of digestive system Low grade mucinous neoplasm of appendix Neoplasm of unspecified nature of digestive system [facility] Diagnosis 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 Neoplasm of unspecified nature of digestive system Non morbid obesity due to excess calories Obstructive sleep apnea syndrome Obstructive sleep apnea (adult) (pediatric) Mass of appendix Other and unspecified diseases of appendix [facility] Diagnosis Bile leak- Primary Unspecified disorder of biliary tract [facility] Diagnosis Attention to ileostomy (HCC)- Primary Attention to ileostomy [facility] Diagnosis Postoperative abscess Other postoperative infection [facility] Diagnosis Intra-abdominal abscess (HCC)- Primary Peritoneal abscess [facility] Diagnosis Postoperative abscess- Primary Other postoperative infection Low grade mucinous neoplasm of appendix Neoplasm of unspecified nature of digestive system Mass of appendix Other and unspecified diseases of appendix [facility] Diagnosis Bile leak Unspecified disorder of biliary tract documented in [facility] noteNo assessment information availableWAdena [facility] Work Phone: Evaluation note* Diagnosis Encounter for attention to ileostomy (HCC)- Primary Attention to ileostomy [facility] Diagnosis Intra-abdominal abscess (HCC)- Primary Peritoneal abscess Imelda infection Candidiasis of unspecified site Enterococcal infection Streptococcus infection in conditions classified elsewhere and of unspecified site, group D Infection due to Enterobacter cloacae Infection due to other gram-negative organisms in conditions classified elsewhere and of unspecified site [facility] Diagnosis Portal vein thrombosis- Primary Anticoagulation management encounter Encounter for therapeutic drug monitoring 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 [facility] Attention to ileostomy (HCC)- Primary Attention to ileostomy Postoperative abscess Other postoperative infection Low grade mucinous neoplasm of appendix Neoplasm of unspecified nature of digestive system Mass of appendix Other and unspecified diseases of appendix Malnutrition of mild degree (HCC) Malnutrition of mild degree [facility] 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 Neoplasm of unspecified nature of digestive system Attention to ileostomy (HCC) Attention to ileostomy [facility] Diagnosis Low grade mucinous neoplasm of appendix Neoplasm of unspecified nature of digestive system [facility] Diagnosis Attention to ileostomy (HCC)- Primary Attention to ileostomy 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 Neoplasm of unspecified nature of digestive system Mass of appendix Other and unspecified diseases of appendix [facility] Diagnosis Gastric leak- Primary Other digestive system complications 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 [facility] Diagnosis 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 [facility] Diagnosis 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 [facility] Diagnosis Iron deficiency anemia, unspecified iron deficiency anemia type- Primary Recurrent major depressive disorder, in partial remission (HCC) AMBROSE on APAP Obstructive sleep apnea (adult) (pediatric) 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) Ileostomy status Encounter for long-term current use of medication [facility] Mass of appendix- Primary Other and unspecified diseases of appendix Attention to ileostomy (HCC) Attention to ileostomy 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 Neoplasm of unspecified nature of digestive system Encounter for attention to ileostomy (HCC) Attention to ileostomy [facility] Diagnosis 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 Neoplasm of unspecified nature of digestive system documented [facility] Diagnosis 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 Neoplasm of unspecified nature of digestive system documented [facility] Diagnosis Portal vein thrombosis- Primary Anticoagulation management encounter Encounter for therapeutic drug monitoring 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 [facility] Diagnosis Intra-abdominal and pelvic swelling, mass and lump, unspecified site- Primary Low grade mucinous neoplasm of appendix Neoplasm of unspecified nature of digestive system documented [facility] Diagnosis Recurrent major depressive disorder, in partial remission (HCC) documented [facility] Diagnosis Recurrent major depressive disorder, in partial remission (HCC)- Primary AMBROSE on CPAP Obstructive sleep apnea (adult) (pediatric) 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) Ileostomy status documented [facility]* Diagnosis 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)- Primary Ileostomy status [facility] Diagnosis Intra-abdominal and pelvic swelling, mass and lump, unspecified site Low grade mucinous neoplasm of appendix Neoplasm of unspecified nature of digestive system documented [facility]* Diagnosis Recurrent major depressive disorder, in partial remission (HCC)- Primary documented [facility]* Diagnosis 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)- Primary Ileostomy status documented [facility] Diagnosis Recurrent major depressive disorder, in partial remission (HCC) documented [facility] Diagnosis Recurrent major depressive disorder, in partial remission (HCC)- Primary 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) Ileostomy status AMBROSE on CPAP Obstructive sleep apnea (adult) (pediatric) Hypercholesteremia <130 Pure hypercholesterolemia Elevated glucose Other abnormal glucose Encounter for long-term current use of medication [facility] Diagnosis Low grade mucinous neoplasm of [...] of digestive system documented [facility] Diagnosis Low grade mucinous neoplasm of [...] appliance and device documented [facility] Diagnosis Low grade mucinous neoplasm of [...] (HCC) Ileostomy status documented [facility] Diagnosis Low grade mucinous neoplasm of [...] diseases of appendix documented [facility] Diagnosis Low grade mucinous neoplasm of [...] specified viral diseases documented in this encounter [facility]* Diagnosis Low grade mucinous neoplasm of [...] and diarrhea Diarrhea documented in this encounter [facility] note* Diagnosis Low grade mucinous neoplasm of [...] Hypokalemia- Primary Hypopotassemia [place] (acute kidney injury) ([facility]) Acute kidney failure, unspecified [facility] Diagnosis Low grade mucinous neoplasm of [...] <130 Pure hypercholesterolemia [place] (acute kidney injury) (HCC)- Primary Acute kidney failure, unspecified Acute renal insufficiency Unspecified disorder of kidney and ureter Excessive gas Flatulence, eructation, and gas pain 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) Ileostomy status Recurrent major depressive disorder, in partial remission (HCC) documented [facility] Diagnosis Low grade mucinous neoplasm of [...] Portal vein thrombosis documented [facility] Diagnosis Low grade mucinous neoplasm of [...] apnea (adult) (pediatric) Hypercholesteremia <130 Pure hypercholesterolemia Hyponatremia- Primary Hyposmolality and/or hyponatremia [place] (acute kidney injury) Acute kidney failure, unspecified High output ileostomy (HCC) Other symptoms involving digestive system Dehydration Stage 3b chronic kidney disease (HCC) documented [facility] Diagnosis Low grade mucinous neoplasm of [...] apnea (adult) (pediatric) Hypercholesteremia <130 Pure hypercholesterolemia Acute renal failure, unspecified acute renal failure type- Primary CKD (chronic kidney disease) stage 4, GFR 15-29 ml/min (HCC) Chronic kidney disease, Stage IV (severe) Hypokalemia Hypopotassemia Hyponatremia Hyposmolality and/or hyponatremia Metabolic acidosis Acidosis Ileostomy present (HCC) Ileostomy status Anemia in stage 4 chronic kidney disease (HCC) Chronic kidney disease-mineral and bone disorder Bilateral leg edema Edema [facility] Diagnosis Low grade mucinous neoplasm of [...] apnea (adult) (pediatric) Hypercholesteremia <130 Pure hypercholesterolemia Acute renal failure, unspecified acute renal failure type documented [facility] Diagnosis Low grade mucinous neoplasm of [...] apnea (adult) (pediatric) Hypercholesteremia <130 Pure hypercholesterolemia Cellulitis of left lower extremity- Primary Cellulitis and abscess of leg, except foot Bilateral lower extremity edema Edema LPRD (laryngopharyngeal reflux disease) Other diseases of larynx Stage 3b chronic kidney disease (HCC) Acute renal insufficiency Unspecified disorder of kidney and ureter Elevated brain natriuretic peptide (BNP) level Other nonspecific findings on examination of blood Superficial phlebitis and thrombophlebitis of left lower extremity [facility] Diagnosis Low grade mucinous neoplasm of [...] apnea (adult) (pediatric) Hypercholesteremia <130 Pure hypercholesterolemia High output ileostomy (HCC)- Primary Other symptoms involving digestive system Recurrent dehydration [facility] Diagnosis Low grade mucinous neoplasm of [...] apnea (adult) (pediatric) Hypercholesteremia <130 Pure hypercholesterolemia Recurrent dehydration- Primary High output ileostomy (HCC) Other symptoms involving digestive system [facility] Additional Instructions Follow-up with your surgeon tomorrow as planned. Return back to the ED if symptoms change or worsen.[facility] Work Phone: Hospital Discharge instructionsAdditional Instructions Take the antibiotic as directed. Your bilateral lower extremity swelling may be secondary to your kidney disease. Make sure you show your joint special operations. Warm compresses to your right lower leg when possible. You may want to start aspirin for your superficial thrombophlebitis. You may also need follow-up with lymphedema clinic. Take all of the antibiotics as directed. Return with new or worsening symptoms. Have an echocardiogram performed as an outpatient within the next few days. You may need to follow-up with cardiology. You can follow-up with Dr. Weems as needed or ask your primary care provider for referral if needed.[facility] Work Phone: Reason for referral (narrative)* Outpatient Procedure (Routine) - Closed Specialty Diagnoses / Procedures Referred By Ruddy ceja Referred To Contact [facility] Diagnoses Anemia, unspecified type Upper abdominal mass Procedures COLONOSCOPY DIAGNOSTIC COLONOSCOPY FLX DX W/COLLJ SPEC WHEN PFRMD Priscila Clarke MD [address] [place] [address] [facility] [address] [place] [address] Referral ID Status Reason Start Date Expiration Date V isits Requested Visits Authorized [id number] Closed Auto-Generate d Referral Patient Cleared INN/SMCP Payor Auth Obtained 04/19/2022 09/29/2022 1 1 * Outpatient Procedure (Routine) - Closed Specialty Diagnoses / Procedures Referred By Ruddy ceja Referred To Contact [facility] Diagnoses Anemia, unspecified type Upper abdominal mass Procedures EGD DIAGNOSTIC ESOPHAGOGASTRODUODENOSCOPY TRANSORAL DIAGNOSTIC Priscila Clarke MD [address] [address] [facility] [address] [place] [address] Referral ID Status Reason Start Date Expiration Date V isits Requested Visits Authorized [id number] Closed Auto-Generate d Referral 04/19/2022 09/29/2022 [address] [facility] for referral (narrative)* Outpatient Procedure (Routine) - Pending Review Specialty Diagnoses / Procedures Referred By Ruddy ceja Referred To Contact [facility] Diagnoses Bile leak Procedures ERCP ERCP DX COLLECTION SPECIMEN BRUSHING/WASHING Avni Williamson MD [address] [id number] [facility] [address] [place] [address] Referral ID Status Reason Start Date Expiration Date Visits Requested Visits Authorized [id number] Pending Review Auto-Generat ed Referral 06/07/2023 [address] [facility] for referral (narrative)* Diagnostic Procedure Only (Routine) - Closed Specialty Diagnoses / Procedures Referred By Ruddy ceja Referred To Contact [facility] Diagnoses Postoperative abscess Procedures XR ABSCESS DRAIN INJECTION Nicolasa Denise DO [address] [place] [address] Xr Imaging Referral ID Status Reason Start Date Expiration Date V isits Requested Visits Authorized [id number] Closed Auto-Generate d Referral 07/09/2022 08/08/2023 [address] [facility] for referral (narrative)* Diagnostic Procedure Only (Routine) - Closed Specialty Diagnoses / Procedures Referred By Ruddy ceja Referred To Contact [facility] IM[facility] Diagnoses Postoperative abscess Procedures XR ABSCESS DRAIN INJECTION Nicolasa Denise DO [address] [place] [address] Xr Imaging Referral ID Status Reason Start Date Expiration Date V isits Requested Visits Authorized [id number] Closed Auto-Generate d Referral 07/09/2022 08/08/2023 [address] [facility] for referral (narrative)* Outpatient Procedure (Routine) - Closed Specialty Diagnoses / Procedures Referred By Contac t Referred To Contact [facility] Diagnoses Bile leak Procedures ERCP ERCP DX COLLECTION SPECIMEN BRUSHING/WASHING Avni Williamson MD [address] [place] [address] [facility] [address] [address] Referral ID Status Reason Start Date Expiration Date V isits Requested Visits Authorized [id number] Closed Auto-Generate d Referral 07/19/2022 06/07/2023 [address] [facility] for referral (narrative)* Diagnostic Procedure Only (Routine) - Authorized Specialty Diagnoses / Procedures Referred By Contac t Referred To Contact XR IMAGING Diagnoses Low grade mucinous neoplasm of appendix Procedures XR ABSCESS DRAIN INJECTION Nicolasa Denise DO [address] [place] [address] Xr Imaging Referral ID Status Reason Start Date Expiration Date Visits Requested Visits Authorized [id number] Authorized Auto-Generat ed Referral 09/26/2023 1 1 [facility] for referral (narrative)* Diagnostic Procedure Only (Routine) - Closed Specialty Diagnoses / Procedures Referred By Contac t Referred To Contact XR IMAGING Diagnoses Low grade mucinous neoplasm of appendix Procedures XR ABSCESS DRAIN INJECTION Nicolasa Denise DO [address] [place] [address] Xr Imaging Referral ID Status Reason Start Date Expiration Date V isits Requested Visits Authorized [id number] Closed Auto-Generate d Referral 08/27/2022 09/26/2023 [address] [facility] for referral (narrative)* Diagnostic Procedure Only (Routine) - Closed Specialty Diagnoses / Procedures Referred By Contac t Referred To Contact CT [facility] Diagnoses Low grade mucinous neoplasm of appendix Procedures CT ABD/PEL W IVCON CT ABD & PELVIS W/CONTRAST Nicolasa Denise DO [address] [place] [address] [facility] [place] [address] Referral ID Status Reason Start Date Expiration Date Visits Re quested Visits Authorized [id number] Closed 05/01/2024 09/29/2024 2 2 * Diagnostic Procedure Only (Routine) - Authorized Specialty Diagnoses / Procedures Referred By Contac t Referred To Contact CT [facility] Diagnoses Low grade mucinous neoplasm of appendix Procedures CT CHEST W IVCON DIAGNOSTIC COMPUTED TOMOGRAPHY THORAX W/CONTRAST Nicolasa Denise DO [address] [place] [address] [facility] [place] [address] Referral ID Status Reason Start Date Expiration Date V isits Requested Visits Authorized [id number] Authorized 05/01/2024 09/29/20[address] [facility] for referral (narrative)No reason for referral information availableWAdena Health System Work Phone: Reason for visit Narrative* Outpatient Procedure (Routine) - Closed Specialty Diagnoses / Procedures Referred By Contac t Referred To Contact [facility] Diagnoses Anemia, unspecified type Upper abdominal mass Procedures COLONOSCOPY DIAGNOSTIC COLONOSCOPY FLX DX W/COLLJ SPEC WHEN Priscila Greenwood MD [address] [place] [address] [facility] [address] [place] [address] Referral ID Status Reason Start Date Expiration Date V isits Requested Visits Authorized [id number] Closed Auto-Generate d Referral Patient Cleared INN/SMCP Payor Auth Obtained 04/19/2022 09/29/2022 [address] [facility] for visit Narrative* Outpatient Procedure (Routine) - Closed Specialty Diagnoses / Procedures Referred By Contac t Referred To Contact [facility] Diagnoses Bile leak Procedures ERCP ERCP DX COLLECTION SPECIMEN BRUSHING/WASHING Avni Williamson MD [address] [place] [address] [facility] [address] [place] [address] Referral ID Status Reason Start Date Expiration Date V isits Requested Visits Authorized [id number] Closed Auto-Generate d Referral 07/19/2022 06/07/2023 [address] [facility] for visit Narrative* Diagnostic Procedure Only (Routine) - Closed Specialty Diagnoses / Procedures Referred By Contac t Referred To Contact CT IMAGING Diagnoses Low grade mucinous neoplasm of appendix Procedures CT ABD/PEL W IVCON CT ABD & PELVIS W/CONTRAST Nicolasa Denise DO [address] [place] [address] Ct [facility] Referral ID Status Reason Start Date Expiration Date Visits Re quested Visits Authorized [id number] Closed 05/01/2024 09/29/2024 2 2 [facility] Reason for Referral Specialty Diagnoses / Procedures Referred By Contac t Referred To Contact General Surgery Diagnoses Iron deficiency anemia, unspecified iron deficiency anemia type Procedures CONSULT TO GENERAL SURGERY OFFICE/OUTPATIENT [facility] 60-74 MINUTES Julissa Ugarte, PATIENT FLOW COORDINATOR.LITERACY EDUCATION PROFESSOR [address] [place] [address] Referral ID Status Reason Start Date Expiration Date Visits Requested Visits Authorized [id number] Authorized PCP Requested Referral 03/05/2022 03/05/2023 1 1 Specialty Diagnoses / Procedures Referred By Contac t Referred To Contact CT IMAGING Diagnoses Intra-abdominal and pelvic swelling, mass and lump, unspecified site Procedures CT ABD/PEL W IVCON CT ABD & PELVIS W/CONTRAST Priscila Clarke MD [address] [place] [address] Ct Imaging Referral ID Status Reason Start Date Expiration Date V isits Requested Visits Authorized [id number] Closed Auto-Generat ed Referral Patient Cleared - Admin/Chairm an/Director advise to proceed 04/20/2022 09/29/2022 1 1 Specialty Diagnoses / Procedures Referred By Contac t Referred To Contact Diagnoses Low grade mucinous neoplasm of appendix Procedures IN PERSON CONSULT TO PAC Nicolasa Denise DO [address] [facility] [place] [address] Referral ID Status Reason Start Date Expiration Date Visits Requested Visits Authorized [id number] Ref Not Required PCP Requested Referral 05/11/2022 08/02/2022 1 1 Specialty Diagnoses / Procedures Referred By Contac t [facility] Diagnoses Low grade mucinous neoplasm of appendix Procedures ECG COMPLETE ECG ROUTINE ECG W/LEAST 12 LDS W/I&R Nicolasa Denise DO [address] [place] [address] [facility] [place] [address] Referral ID Status Reason Start Date Expiration Date V isits Requested Visits Authorized [id number] Closed Auto-Generate d Referral 05/11/2022 05/04/2023 1 1 Specialty Diagnoses / Procedures Referred By Antoinetteac t Referred To Contact CT IMAGING Diagnoses Intra-abdominal and pelvic swelling, mass and lump, unspecified site Low grade mucinous neoplasm of appendix Procedures CT CHEST W IVCON DIAGNOSTIC COMPUTED TOMOGRAPHY THORAX W/CONTRAST Nicolasa Denise, [address] [place] [address] Ct Imaging Referral ID Status Reason Start Date Expiration Date Visits Requested Visits Authorized [id number] Pending Review Auto-Generat ed Referral 01/08/2023 02/07/2024 1 1 Specialty Diagnoses / Procedures Referred By Antoinetteac t Referred To Contact CT IM[facility] Diagnoses Intra-abdominal and pelvic swelling, mass and lump, unspecified site Low grade mucinous neoplasm of appendix Procedures CT ABD/PEL W IVCON CT ABD & PELVIS W/CONTRAST Nicolasa Denise DO [address] [place] [address] Ct Imaging Referral ID Status Reason Start Date Expiration Date Visits Requested Visits Authorized [id number] Pending Review Auto-Generat ed Referral 01/08/2023 02/07/2024 1 1 [facility] Diagnoses Intra-abdominal and pelvic swelling, mass and lump, unspecified site Low grade mucinous neoplasm of appendix Procedures CT CHEST W IVCON DIAGNOSTIC COMPUTED TOMOGRAPHY THORAX W/CONTRAST Nicolasa Denise, DO [id number] [place] [address] Referral ID Status Reason Start Date Expiration Date V isits Requested Visits Authorized [id number] Closed Auto-Generate d Referral 05/06/2023 02/07/2024 1 1 Specialty Diagnoses [facility] IMAGING Diagnoses Intra-abdominal and pelvic swelling, mass and lump, unspecified site Low grade mucinous neoplasm of appendix Procedures CT ABD/PEL W IVCON CT ABD & PELVIS W/CONTRAST Nicolasa Denise, DO [id number] [place] [address] Referral ID Status Reason Start Date Expiration Date V isits Requested Visits Authorized [id number] Closed Auto-Generate d Referral 05/06/2023 02/07/2024 1 1 Advance Directives Documents on File Type Date Recorded Patient Anodiser Expl anation Advance Directive(s) 04/19/2022 4:25 PM Documents on File Type Date Recorded Patient Anodiser Expl anation Advance Directive(s) 04/19/2022 4:25 PM Documents on File Type Date Recorded Patient Anodiser Expl anation Advance Directive(s) 2022 8:47 AM Advance Directive(s) 04/19/2022 4:25 PM Documents on File Type Date Recorded Patient Anodiser Expl anation Advance Directive(s) 04/25/2022 12:27 PM Advance Directive(s) 2022 8:47 AM Advance Directive(s) 04/19/2022 4:25 PM Documents on File Type Date Recorded Patient Anodiser Expl anation Advance Directive(s) 04/25/2022 12:27 PM Advance Directive(s) 2022 8:47 AM Advance Directive(s) 04/19/2022 4:25 PM Documents on File Type Date Recorded Patient Anodiser Expl anation Advance Directive(s) 05/31/2022 9:56 AM Documents on File Type Date Recorded Patient Anodiser Expl anation Advance Directive(s) 05/31/2022 9:56 AM Advance Directive Response Recorded Date/ Time Living Will No November 26 8:54pm Power of Branch General Manager No November 26, 2024 8:54pm Living Will No December 15, 2024 8:29am Power of Branch General Manager No December 15 8:29am Advance Directive Response Recorded Date/ Time Living Will No November 26 8:54pm Power of Branch General Manager No November 26, 2024 8:54pm Living Will No December 15, 2024 11:22am Power of Branch General Manager No December 15 11:22am Advance Directive Response Recorded Date/ Time Living Will No November 26 8:54pm Do you have a Healthcare Power of Branch General Manager? No November 26, 2024 8:54pm Living Will No December 15, 2024 11:22am Do you have a Healthcare Power of Branch General Manager? No December 15, 2024 11:22am Living Will No January 15, 2025 8:54pm Do you have a Healthcare Power of Branch General Manager? No January 15, 2025 8:54pm Advance Directive Response Recorded Date/ Time Living Will No November 26 8:54pm Do you have a Healthcare Power of Branch General Manager? No November 26, 2024 8:54pm Living Will No December 15, 2024 11:22am Do you have a Healthcare Power of Branch General Manager? No December 15, 2024 11:22am Do you have a Healthcare Power of Branch General Manager? No March 28, 2025 1:13pm Living Will No January 15, 2025 8:54pm Do you have a Healthcare Power of Branch General Manager? No January 15, 2025 8:54pm Advance Directive Response Recorded Date/ Time Living Will No December 15, 2024 11:22am Do you have a Healthcare Power of Branch General Manager? No December 15, 2024 11:22am Do you have a Healthcare Power of Branch General Manager? No March 28, 2025 1:13pm Living Will No January 15, 2025 8:54pm Do you have a Healthcare Power of Branch General Manager? No January 15, 2025 8:54pm Do you have a Healthcare Power of Branch General Manager? No April 12, 2025 8:17pm Medications Administered Section Inactive Administered Medications - up to 3 most recent administrations Medication Order MAR Action Action Date Dose Rate Site benzocaine 20% 1 [place]row (TOPEX) 1 [place]row, TOPICAL, DIRECTED, Starting on [facility] 04/26/22 at 0900, Until Jackie 04/26/22 at 1259, DOSING DIRECTED BY PHYSICIAN FOR PROCEDURAL SEDATION ONLY - Pharmaceutical Waste: Aerosol -, Intraprocedure Given by [facility] 04/26/2022 8:28 AM EDT 5 Sprays diphenhydrAMINE 12.5-50 mg injection (BENADRYL) 12.5-50 mg, INTRAVENOUS, DIRECTED, Starting on [facility] 04/26/22 at 0900, Until [facility] 04/26/22 at 1259, DOSING DIRECTED BY PHYSICIAN FOR PROCEDURAL SEDATION ONLY, Intraprocedure Given by [facility] 04/26/2022 8:31 AM EDT 50 mg fentaNYL 50 mcg/mL 25-100 mcg injection (SUBLIMAZE) 25-100 mcg, INTRAVENOUS, DIRECTED, Starting on [facility] 04/26/22 at 0900, Until Jackie 04/26/22 at 1259, DOSING DIRECTED BY PHYSICIAN FOR PROCEDURAL SEDATION ONLY, Intraprocedure Given by [facility] 04/26/2022 8:31 AM EDT 25 mcg Given by [facility] 04/26/2022 8:30 AM EDT 25 mcg Given by [facility] 04/26/2022 8:29 AM EDT 50 mcg lactated ringers iv infusion 30 mL/hr, INTRAVENOUS, CONTINUOUS, Starting on Jackie 04/26/22 at 0800, Until Jackie 04/26/22 at 0913, Preprocedure New Bag/Syringe/Bottle 04/26/2022 7:55 AM EDT 30 mL/hr 30 mL/hr midazolam (PF) 1-5 mg injection (VERSED) 1-5 mg, INTRAVENOUS, DIRECTED, Starting on [facility] 04/26/22 at 0900, Until Jackie 04/26/22 at 1259, DOSING DIRECTED BY PHYSICIAN FOR PROCEDURAL SEDATION ONLY, Intraprocedure Given 04/26/2022 8:37 AM EDT 1 mg Given by [facility] 04/26/2022 8:33 AM EDT 2 mg Given by [facility] 04/26/2022 8:31 AM EDT 1 mg Summary Purpose Family History Relationship Condition Age at Onset Recorded Date/T [...] some fluids January 15, 2025 7:2 6pm Chief Complaint Admit Date [place] November 27, 2024 3:11pm [place] November 28, 2024 1:58 pm [place] November 29, 2024 8:35 am ACUTE KIDNEY INJURY December 15, 2024 10: 18am ACUTE KIDNEY INJURY December 15, 2024 4:3 3pm ACUTE KIDNEY INJURY December 16, 2024 12: 04am need some fluids January 15, 2025 7:2 6pm DEHYDRATION March 28, 2025 12:5 8pm Chief Complaint Admit Date ACUTE KIDNEY INJURY December 15, 2024 10: 18am ACUTE KIDNEY INJURY December 15, 2024 4:3 3pm ACUTE KIDNEY INJURY December 16, 2024 12: 04am need some fluids January 15, 2025 7:2 6pm DEHYDRATION March 28, 2025 12:5 8pm Edema April 12, 2025 5:42 pm Reason for Visit Admit Date Acute kidney injury December 15, 2024 10: 18am Dehydration December 15, 2024 10: 18am Additional Source Comments Source Comments (unrecognize d section and content) In the event this informatio n is protected by the Federal Confidentiality of Alcohol and Drug Abuse Patient Records regulations: The Federal rules restrict any use of the information to criminally investigate or prosecute any alcohol or drug abuse patient.[facility] the event this information is protected by the Federal Confidentiality of Alcohol and Drug Abuse Patient Records regulations: The Federal rules restrict any use of the information to criminally investigate or prosecute any alcohol or drug abuse patient.[facility]In the event this information is protected by the Federal Confidentiality of Alcohol and Drug Abuse Patient Records regulations: The Federal rules restrict any use of the information to criminally investigate or prosecute any alcohol or drug abuse patient.[facility]In the event this information is protected by the Federal Confidentiality of Alcohol and Drug Abuse Patient Records regulations: The Federal rules restrict any use of the information to criminally investigate or prosecute any alcohol or drug abuse patient.[facility]In the event this information is protected by the Federal Confidentiality of Alcohol and Drug Abuse Patient Records regulations: The Federal rules restrict any use of the information to criminally investigate or prosecute any alcohol or drug abuse patient.[facility]In the event this information is protected by the Federal Confidentiality of Alcohol and Drug Abuse Patient Records regulations: The Federal rules restrict any use of the information to criminally investigate or prosecute any alcohol or drug abuse patient.[facility]In the event this information is protected by the Federal Confidentiality of Alcohol and Drug Abuse Patient Records regulations: The Federal rules restrict any use of the information to criminally investigate or prosecute any alcohol or drug abuse patient.[facility]In the event this information is protected by the Federal Confidentiality of Alcohol and Drug Abuse Patient Records regulations: The Federal rules restrict any use of the information to criminally investigate or prosecute any alcohol or drug abuse patient.[facility]In the event this information is protected by the Federal Confidentiality of Alcohol and Drug Abuse Patient Records regulations: The Federal rules restrict any use of the information to criminally investigate or prosecute any alcohol or drug abuse patient.[facility] HospitalIn the event this information is protected by the Federal Confidentiality of Alcohol and Drug Abuse Patient Records regulations: The Federal rules restrict any use of the information to criminally investigate or prosecute any alcohol or drug abuse patient.[facility] HospitalIn the event this information is protected by the Federal Confidentiality of Alcohol and Drug Abuse Patient Records regulations: The Federal rules restrict any use of the information to criminally investigate or prosecute any alcohol or drug abuse patient.[facility]In the event this information is protected by the Federal Confidentiality of Alcohol and Drug Abuse Patient Records regulations: The Federal rules restrict any use of the information to criminally investigate or prosecute any alcohol or drug abuse patient.[facility] HospitalIn the event this information is protected by the Federal Confidentiality of Alcohol and Drug Abuse Patient Records regulations: The Federal rules restrict any use of the information to criminally investigate or prosecute any alcohol or drug abuse patient.[facility] HospitalIn the event this information is protected by the Federal Confidentiality of Alcohol and Drug Abuse Patient Records regulations: The Federal rules restrict any use of the information to criminally investigate or prosecute any alcohol or drug abuse patient.[facility]In the event this information is protected by the Federal Confidentiality of Alcohol and Drug Abuse Patient Records regulations: The Federal rules restrict any use of the information to criminally investigate or prosecute any alcohol or drug abuse patient.[facility] HospitalIn the event this information is protected by the Federal Confidentiality of Alcohol and Drug Abuse Patient Records regulations: The Federal rules restrict any use of the information to criminally investigate or prosecute any alcohol or drug abuse patient.[facility] HospitalIn the event this information is protected by the Federal Confidentiality of Alcohol and Drug Abuse Patient Records regulations: The Federal rules restrict any use of the information to criminally investigate or prosecute any alcohol or drug abuse patient.[facility] HospitalIn the event this information is protected by the Federal Confidentiality of Alcohol and Drug Abuse Patient Records regulations: The Federal rules restrict any use of the information to criminally investigate or prosecute any alcohol or drug abuse patient.[facility] HospitalIn the event this information is protected by the Federal Confidentiality of Alcohol and Drug Abuse Patient Records regulations: The Federal rules restrict any use of the information to criminally investigate or prosecute any alcohol or drug abuse patient.[facility] HospitalIn the event this information is protected by the Federal Confidentiality of Alcohol and Drug Abuse Patient Records regulations: The Federal rules restrict any use of the information to criminally investigate or prosecute any alcohol or drug abuse patient.[facility] HospitalIn the event this information is protected by the Federal Confidentiality of Alcohol and Drug Abuse Patient Records regulations: The Federal rules restrict any use of the information to criminally investigate or prosecute any alcohol or drug abuse patient.[facility] HospitalIn the event this information is protected by the Federal Confidentiality of Alcohol and Drug Abuse Patient Records regulations: The Federal rules restrict any use of the information to criminally investigate or prosecute any alcohol or drug abuse patient.[facility] HospitalIn the event this information is protected by the Federal Confidentiality of Alcohol and Drug Abuse Patient Records regulations: The Federal rules restrict any use of the information to criminally investigate or prosecute any alcohol or drug abuse patient.[facility] HospitalIn the event this information is protected by the Federal Confidentiality of Alcohol and Drug Abuse Patient Records regulations: The Federal rules restrict any use of the information to criminally investigate or prosecute any alcohol or drug abuse patient.[facility]In the event this information is protected by the Federal Confidentiality of Alcohol and Drug Abuse Patient Records regulations: The Federal rules restrict any use of the information to criminally investigate or prosecute any alcohol or drug abuse patient.[facility] HospitalIn the event this information is protected by the Federal Confidentiality of Alcohol and Drug Abuse Patient Records regulations: The Federal rules restrict any use of the information to criminally investigate or prosecute any alcohol or drug abuse patient.[facility] HospitalIn the event this information is protected by the Federal Confidentiality of Alcohol and Drug Abuse Patient Records regulations: The Federal rules restrict any use of the information to criminally investigate or prosecute any alcohol or drug abuse patient.[facility] HospitalIn the event this information is protected by the Federal Confidentiality of Alcohol and Drug Abuse Patient Records regulations: The Federal rules restrict any use of the information to criminally investigate or prosecute any alcohol or drug abuse patient.[facility] HospitalIn the event this information is protected by the Federal Confidentiality of Alcohol and Drug Abuse Patient Records regulations: The Federal rules restrict any use of the information to criminally investigate or prosecute any alcohol or drug abuse patient.[facility] HospitalIn the event this information is protected by the Federal Confidentiality of Alcohol and Drug Abuse Patient Records regulations: The Federal rules restrict any use of the information to criminally investigate or prosecute any alcohol or drug abuse patient.[facility] HospitalIn the event this information is protected by the Federal Confidentiality of Alcohol and Drug Abuse Patient Records regulations: The Federal rules restrict any use of the information to criminally investigate or prosecute any alcohol or drug abuse patient.[facility] HospitalIn the event this information is protected by the Federal Confidentiality of Alcohol and Drug Abuse Patient Records regulations: The Federal rules restrict any use of the information to criminally investigate or prosecute any alcohol or drug abuse patient.[facility] HospitalIn the event this information is protected by the Federal Confidentiality of Alcohol and Drug Abuse Patient Records regulations: The Federal rules restrict any use of the information to criminally investigate or prosecute any alcohol or drug abuse patient.[facility] HospitalIn the event this information is protected by the Federal Confidentiality of Alcohol and Drug Abuse Patient Records regulations: The Federal rules restrict any use of the information to criminally investigate or prosecute any alcohol or drug abuse patient.[facility] HospitalIn the event this information is protected by the Federal Confidentiality of Alcohol and Drug Abuse Patient Records regulations: The Federal rules restrict any use of the information to criminally investigate or prosecute any alcohol or drug abuse patient.[facility] HospitalIn the event this information is protected by the Federal Confidentiality of Alcohol and Drug Abuse Patient Records regulations: The Federal rules restrict any use of the information to criminally investigate or prosecute any alcohol or drug abuse patient.[facility] HospitalIn the event this information is protected by the Federal Confidentiality of Alcohol and Drug Abuse Patient Records regulations: The Federal rules restrict any use of the information to criminally investigate or prosecute any alcohol or drug abuse patient.[facility] HospitalIn the event this information is protected by the Federal Confidentiality of Alcohol and Drug Abuse Patient Records regulations: The Federal rules restrict any use of the information to criminally investigate or prosecute any alcohol or drug abuse patient.[facility] HospitalIn the event this information is protected by the Federal Confidentiality of Alcohol and Drug Abuse Patient Records regulations: The Federal rules restrict any use of the information to criminally investigate or prosecute any alcohol or drug abuse patient.[facility] HospitalIn the event this information is protected by the Federal Confidentiality of Alcohol and Drug Abuse Patient Records regulations: The Federal rules restrict any use of the information to criminally investigate or prosecute any alcohol or drug abuse patient.[facility] HospitalIn the event this information is protected by the Federal Confidentiality of Alcohol and Drug Abuse Patient Records regulations: The Federal rules restrict any use of the information to criminally investigate or prosecute any alcohol or drug abuse patient.[facility] HospitalIn the event this information is protected by the Federal Confidentiality of Alcohol and Drug Abuse Patient Records regulations: The Federal rules restrict any use of the information to criminally investigate or prosecute any alcohol or drug abuse patient.[facility] HospitalIn the event this information is protected by the Federal Confidentiality of Alcohol and Drug Abuse Patient Records regulations: The Federal rules restrict any use of the information to criminally investigate or prosecute any alcohol or drug abuse patient.[facility] HospitalIn the event this information is protected by the Federal Confidentiality of Alcohol and Drug Abuse Patient Records regulations: The Federal rules restrict any use of the information to criminally investigate or prosecute any alcohol or drug abuse patient.[facility] HospitalIn the event this information is protected by the Federal Confidentiality of Alcohol and Drug Abuse Patient Records regulations: The Federal rules restrict any use of the information to criminally investigate or prosecute any alcohol or drug abuse patient.[facility] HospitalIn the event this information is protected by the Federal Confidentiality of Alcohol and Drug Abuse Patient Records regulations: The Federal rules restrict any use of the information to criminally investigate or prosecute any alcohol or drug abuse patient.[facility] HospitalIn the event this information is protected by the Federal Confidentiality of Alcohol and Drug Abuse Patient Records regulations: The Federal rules restrict any use of the information to criminally investigate or prosecute any alcohol or drug abuse patient.[facility] HospitalIn the event this information is protected by the Federal Confidentiality of Alcohol and Drug Abuse Patient Records regulations: The Federal rules restrict any use of the information to criminally investigate or prosecute any alcohol or drug abuse patient.[facility] HospitalIn the event this information is protected by the Federal Confidentiality of Alcohol and Drug Abuse Patient Records regulations: The Federal rules restrict any use of the information to criminally investigate or prosecute any alcohol or drug abuse patient.[facility] HospitalIn the event this information is protected by the Federal Confidentiality of Alcohol and Drug Abuse Patient Records regulations: The Federal rules restrict any use of the information to criminally investigate or prosecute any alcohol or drug abuse patient.[facility] HospitalIn the event this information is protected by the Federal Confidentiality of Alcohol and Drug Abuse Patient Records regulations: The Federal rules restrict any use of the information to criminally investigate or prosecute any alcohol or drug abuse patient.[facility] HospitalIn the event this information is protected by the Federal Confidentiality of Alcohol and Drug Abuse Patient Records regulations: The Federal rules restrict any use of the information to criminally investigate or prosecute any alcohol or drug abuse patient.[facility] HospitalIn the event this information is protected by the Federal Confidentiality of Alcohol and Drug Abuse Patient Records regulations: The Federal rules restrict any use of the information to criminally investigate or prosecute any alcohol or drug abuse patient.[facility] HospitalIn the event this information is protected by the Federal Confidentiality of Alcohol and Drug Abuse Patient Records regulations: The Federal rules restrict any use of the information to criminally investigate or prosecute any alcohol or drug abuse patient.[facility] HospitalIn the event this information is protected by the Federal Confidentiality of Alcohol and Drug Abuse Patient Records regulations: The Federal rules restrict any use of the information to criminally investigate or prosecute any alcohol or drug abuse patient.[facility] HospitalIn the event this information is protected by the Federal Confidentiality of Alcohol and Drug Abuse Patient Records regulations: The Federal rules restrict any use of the information to criminally investigate or prosecute any alcohol or drug abuse patient.[facility] HospitalIn the event this information is protected by the Federal Confidentiality of Alcohol and Drug Abuse Patient Records regulations: The Federal rules restrict any use of the information to criminally investigate or prosecute any alcohol or drug abuse patient.[facility] HospitalIn the event this information is protected by the Federal Confidentiality of Alcohol and Drug Abuse Patient Records regulations: The Federal rules restrict any use of the information to criminally investigate or prosecute any alcohol or drug abuse patient.[facility] HospitalIn the event this information is protected by the Federal Confidentiality of Alcohol and Drug Abuse Patient Records regulations: The Federal rules restrict any use of the information to criminally investigate or prosecute any alcohol or drug abuse patient.[facility] HospitalIn the event this information is protected by the Federal Confidentiality of Alcohol and Drug Abuse Patient Records regulations: The Federal rules restrict any use of the information to criminally investigate or prosecute any alcohol or drug abuse patient.[facility] HospitalIn the event this information is protected by the Federal Confidentiality of Alcohol and Drug Abuse Patient Records regulations: The Federal rules restrict any use of the information to criminally investigate or prosecute any alcohol or drug abuse patient.[facility] HospitalIn the event this information is protected by the Federal Confidentiality of Alcohol and Drug Abuse Patient Records regulations: The Federal rules restrict any use of the information to criminally investigate or prosecute any alcohol or drug abuse patient.[facility] HospitalIn the event this information is protected by the Federal Confidentiality of Alcohol and Drug Abuse Patient Records regulations: The Federal rules restrict any use of the information to criminally investigate or prosecute any alcohol or drug abuse patient.[facility] HospitalIn the event this information is protected by the Federal Confidentiality of Alcohol and Drug Abuse Patient Records regulations: The Federal rules restrict any use of the information to criminally investigate or prosecute any alcohol or drug abuse patient.[facility] HospitalIn the event this information is protected by the Federal Confidentiality of Alcohol and Drug Abuse Patient Records regulations: The Federal rules restrict any use of the information to criminally investigate or prosecute any alcohol or drug abuse patient.[facility] [place] [facility] HospitalIn the event this information is protected by the Federal Confidentiality of Alcohol and Drug Abuse Patient Records regulations: The Federal rules restrict any use of the information to criminally investigate or prosecute any alcohol or drug abuse patient.[facility] [place] [facility] HospitalIn the event this information is protected by the Federal Confidentiality of Alcohol and Drug Abuse Patient Records regulations: The Federal rules restrict any use of the information to criminally investigate or prosecute any alcohol or drug abuse patient.[facility] [place] [facility] HospitalIn the event this information is protected by the Federal Confidentiality of Alcohol and Drug Abuse Patient Records regulations: The Federal rules restrict any use of the information to criminally investigate or prosecute any alcohol or drug abuse patient.[facility] [place] [facility] HospitalIn the event this information is protected by the Federal Confidentiality of Alcohol and Drug Abuse Patient Records regulations: The Federal rules restrict any use of the information to criminally investigate or prosecute any alcohol or drug abuse patient.[facility] [place] [facility] HospitalIn the event this information is protected by the Federal Confidentiality of Alcohol and Drug Abuse Patient Records regulations: The Federal rules restrict any use of the information to criminally investigate or prosecute any alcohol or drug abuse patient.[facility] [place] [facility] HospitalIn the event this information is protected by the Federal Confidentiality of Alcohol and Drug Abuse Patient Records regulations: The Federal rules restrict any use of the information to criminally investigate or prosecute any alcohol or drug abuse patient.[facility] [place] [facility] HospitalIn the event this information is protected by the Federal Confidentiality of Alcohol and Drug Abuse Patient Records regulations: The Federal rules restrict any use of the information to criminally investigate or prosecute any alcohol or drug abuse patient.[facility] [place] [facility] HospitalIn the event this information is protected by the Federal Confidentiality of Alcohol and Drug Abuse Patient Records regulations: The Federal rules restrict any use of the information to criminally investigate or prosecute any alcohol or drug abuse patient.[facility] [place] [facility] HospitalIn the event this information is protected by the Federal Confidentiality of Alcohol and Drug Abuse Patient Records regulations: The Federal rules restrict any use of the information to criminally investigate or prosecute any alcohol or drug abuse patient.[facility] [place] [facility] HospitalIn the event this information is protected by the Federal Confidentiality of Alcohol and Drug Abuse Patient Records regulations: The Federal rules restrict any use of the information to criminally investigate or prosecute any alcohol or drug abuse patient.[facility] [place] [facility] HospitalIn the event this information is protected by the Federal Confidentiality of Alcohol and Drug Abuse Patient Records regulations: The Federal rules restrict any use of the information to criminally investigate or prosecute any alcohol or drug abuse patient.[facility] [place] [facility] HospitalIn the event this information is protected by the Federal Confidentiality of Alcohol and Drug Abuse Patient Records regulations: The Federal rules restrict any use of the information to criminally investigate or prosecute any alcohol or drug abuse patient.[facility] [place] [facility] HospitalIn the event this information is protected by the Federal Confidentiality of Alcohol and Drug Abuse Patient Records regulations: The Federal rules restrict any use of the information to criminally investigate or prosecute any alcohol or drug abuse patient.[facility] [place] [facility] HospitalIn the event this information is protected by the Federal Confidentiality of Alcohol and Drug Abuse Patient Records regulations: The Federal rules restrict any use of the information to criminally investigate or prosecute any alcohol or drug abuse patient.[facility] [place] [facility] HospitalIn the event this information is protected by the Federal Confidentiality of Alcohol and Drug Abuse Patient Records regulations: The Federal rules restrict any use of the information to criminally investigate or prosecute any alcohol or drug abuse patient.[facility] [place] [facility] HospitalIn the event this information is protected by the Federal Confidentiality of Alcohol and Drug Abuse Patient Records regulations: The Federal rules restrict any use of the information to criminally investigate or prosecute any alcohol or drug abuse patient.[facility] [place] [facility] HospitalIn the event this information is protected by the Federal Confidentiality of Alcohol and Drug Abuse Patient Records regulations: The Federal rules restrict any use of the information to criminally investigate or prosecute any alcohol or drug abuse patient.[facility] [place] [facility] HospitalIn the event this information is protected by the Federal Confidentiality of Alcohol and Drug Abuse Patient Records regulations: The Federal rules restrict any use of the information to criminally investigate or prosecute any alcohol or drug abuse patient.[facility] [place] [facility] HospitalIn the event this information is protected by the Federal Confidentiality of Alcohol and Drug Abuse Patient Records regulations: The Federal rules restrict any use of the information to criminally investigate or prosecute any alcohol or drug abuse patient.[facility] [place] [facility] HospitalIn the event this information is protected by the Federal Confidentiality of Alcohol and Drug Abuse Patient Records regulations: The Federal rules restrict any use of the information to criminally investigate or prosecute any alcohol or drug abuse patient.[facility] [place] [facility] HospitalIn the event this information is protected by the Federal Confidentiality of Alcohol and Drug Abuse Patient Records regulations: The Federal rules restrict any use of the information to criminally investigate or prosecute any alcohol or drug abuse patient.[facility] [place] [facility] HospitalIn the event this information is protected by the Federal Confidentiality of Alcohol and Drug Abuse Patient Records regulations: The Federal rules restrict any use of the information to criminally investigate or prosecute any alcohol or drug abuse patient.[facility] [place] [facility] HospitalIn the event this information is protected by the Federal Confidentiality of Alcohol and Drug Abuse Patient Records regulations: The Federal rules restrict any use of the information to criminally investigate or prosecute any alcohol or drug abuse patient.[facility] [place] [facility] HospitalIn the event this information is protected by the Federal Confidentiality of Alcohol and Drug Abuse Patient Records regulations: The Federal rules restrict any use of the information to criminally investigate or prosecute any alcohol or drug abuse patient.[facility] [place] [facility] HospitalIn the event this information is protected by the Federal Confidentiality of Alcohol and Drug Abuse Patient Records regulations: The Federal rules restrict any use of the information to criminally investigate or prosecute any alcohol or drug abuse patient.[facility] HospitalIn the event this information is protected by the Federal Confidentiality of Alcohol and Drug Abuse Patient Records regulations: The Federal rules restrict any use of the information to criminally investigate or prosecute any alcohol or drug abuse patient.[facility] HospitalIn the event this information is protected by the Federal Confidentiality of Alcohol and Drug Abuse Patient Records regulations: The Federal rules restrict any use of the information to criminally investigate or prosecute any alcohol or drug abuse patient.[facility] [place] [facility] HospitalIn the event this information is protected by the Federal Confidentiality of Alcohol and Drug Abuse Patient Records regulations: The Federal rules restrict any use of the information to criminally investigate or prosecute any alcohol or drug abuse patient.[facility] [place] [facility] HospitalIn the event this information is protected by the Federal Confidentiality of Alcohol and Drug Abuse Patient Records regulations: The Federal rules restrict any use of the information to criminally investigate or prosecute any alcohol or drug abuse patient.[facility] [place] [facility] HospitalIn the event this information is protected by the Federal Confidentiality of Alcohol and Drug Abuse Patient Records regulations: The Federal rules restrict any use of the information to criminally investigate or prosecute any alcohol or drug abuse patient.[facility] [place] [facility] HospitalIn the event this information is protected by the Federal Confidentiality of Alcohol and Drug Abuse Patient Records regulations: The Federal rules restrict any use of the information to criminally investigate or prosecute any alcohol or drug abuse patient.[facility] [place] [facility] HospitalIn the event this information is protected by the Federal Confidentiality of Alcohol and Drug Abuse Patient Records regulations: The Federal rules restrict any use of the information to criminally investigate or prosecute any alcohol or drug abuse patient.[facility] [place] [facility] HospitalIn the event this information is protected by the Federal Confidentiality of Alcohol and Drug Abuse Patient Records regulations: The Federal rules restrict any use of the information to criminally investigate or prosecute any alcohol or drug abuse patient.[facility] [place] [facility] HospitalIn the event this information is protected by the Federal Confidentiality of Alcohol and Drug Abuse Patient Records regulations: The Federal rules restrict any use of the information to criminally investigate or prosecute any alcohol or drug abuse patient.[facility] [place] [facility] HospitalIn the event this information is protected by the Federal Confidentiality of Alcohol and Drug Abuse Patient Records regulations: The Federal rules restrict any use of the information to criminally investigate or prosecute any alcohol or drug abuse patient.[facility] [place] [facility] HospitalIn the event this information is protected by the Federal Confidentiality of Alcohol and Drug Abuse Patient Records regulations: The Federal rules restrict any use of the information to criminally investigate or prosecute any alcohol or drug abuse patient.[facility] HospitalIn the event this information is protected by the Federal Confidentiality of Alcohol and Drug Abuse Patient Records regulations: The Federal rules restrict any use of the information to criminally investigate or prosecute any alcohol or drug abuse patient.[facility] [place] [facility] HospitalIn the event this information is protected by the Federal Confidentiality of Alcohol and Drug Abuse Patient Records regulations: The Federal rules restrict any use of the information to criminally investigate or prosecute any alcohol or drug abuse patient.[facility] HospitalIn the event this information is protected by the Federal Confidentiality of Alcohol and Drug Abuse Patient Records regulations: The Federal rules restrict any use of the information to criminally investigate or prosecute any alcohol or drug abuse patient.[facility] [place] [facility] HospitalIn the event this information is protected by the Federal Confidentiality of Alcohol and Drug Abuse Patient Records regulations: The Federal rules restrict any use of the information to criminally investigate or prosecute any alcohol or drug abuse patient.[facility] [place] [facility] HospitalIn the event this information is protected by the Federal Confidentiality of Alcohol and Drug Abuse Patient Records regulations: The Federal rules restrict any use of the information to criminally investigate or prosecute any alcohol or drug abuse patient.[facility] HospitalIn the event this information is protected by the Federal Confidentiality of Alcohol and Drug Abuse Patient Records regulations: The Federal rules restrict any use of the information to criminally investigate or prosecute any alcohol or drug abuse patient.[facility] [place] [facility] HospitalIn the event this information is protected by the Federal Confidentiality of Alcohol and Drug Abuse Patient Records regulations: The Federal rules restrict any use of the information to criminally investigate or prosecute any alcohol or drug abuse patient.[facility] [place] [facility] HospitalIn the event this information is protected by the Federal Confidentiality of Alcohol and Drug Abuse Patient Records regulations: The Federal rules restrict any use of the information to criminally investigate or prosecute any alcohol or drug abuse patient.[facility] Reason for Visit (unrecogniz ed section and content) Reason Comments Radiology CT Specialty Diagnoses / Procedures Referred By Ruddy ceja Referred To Contact CT IMAGING Diagnoses Intra-abdominal and pelvic swelling, mass and lump, unspecified site Procedures CT ABD/PEL W IVCON CT ABD & PELVIS W/CONTRAST Priscila Clarke MD [address] [facility] [address] Ct Imaging Referral ID Status Reason Start Date Expiration Date V isits Requested Visits Authorized [id number] Closed Auto-Generat ed Referral Patient Cleared - Admin/Chairm an/Director advise to proceed 04/20/2022 09/29/2022 1 1 Reason Onset Date Comments Refill Request 12/20/2021 Reason Comments F/U 6 Month Reason Comments Results, Lab Reason Comments Results Reason Comments Appointment New patient Reason Comments Manager Configuration - Other Reason Comments Follow Up colonoscopy and EGD Reason Comments Established Patient Reason Comments Mass on appendix Reason Comments Home Health Orders Reason Comments CoPat Start Reason Onset Date Comments Transition Of Care 06/29/2022 TCM Initial M [facility] Discharge 06/28/22 Reason Comments CoPat Management Reason Onset Date Comments Transition Of Care 07/07/2022 [facility] follow up [facility] Discharge 06/28/22 Reason Comments Patient Question Reason Comments Radio GI Main HB6 Specialty Diagnoses / Procedures Referred By Contac t Referred To Contact XR IMAGING Diagnoses Postoperative abscess Procedures XR ABSCESS DRAIN INJECTION Nicolasa Denise, DO [address] [place] [address] Xr Imaging Referral ID Status Reason Start Date Expiration Date V isits Requested Visits Authorized [id number] Closed Auto-Generate d Referral 07/09/2022 08/08/2023 1 1 Reason Comments Patient Update Reason Comments CoPat Agency Reason Comments Orders Reason Comments Appointment Confirmation Reason Onset Date Comments Transition Of Care 07/13/2022 [facility] follow up [facility] Discharge 06/28/22 Reason Comments Outside Lab Results copat Reason Comments Established Patient Reason Onset Date Comments Transition Of Care 07/20/2022 [facility] follow up [facility] Discharge 06/28/22 Reason Comments CoPat Stop Reason Comments Infection Follow Up Reason Comments Follow Up Reason Comments Appointment Rescheduled appointm ent from 11/30 to 12/[address] Eaton's schedule change Specialty Diagnoses / Procedures Referred By Contac t Referred To Contact XR IMAGING Diagnoses Low grade mucinous neoplasm of appendix Procedures XR ABSCESS DRAIN INJECTION Nicolasa Denise, DO [address] [place] [address] Xr Imaging Referral ID Status Reason Start Date Expiration Date V isits Requested Visits Authorized [id number] Closed Auto-Generate d Referral 08/27/2022 09/26/2023 1 [...] COMPUTED TOMOGRAPHY THORAX W/CONTRAST Nicolasa Denise, DO [address] [place] [address] Ct Imaging [place] [address] Referral ID Status Reason Start Date Expiration Date V isits Requested Visits Authorized [id number] Closed Auto-Generate d Referral 05/06/2023 02/07/2024 1 1 Reason Comments Depression Follow up on medicat ion change Reason Comments Stoma Consult Reason Onset Date Comments Refill Request 03/23/2024 Specialty Diagnoses / Procedures Referred By Contac t Referred To Contact CT IMAGING Diagnoses Low grade mucinous neoplasm of appendix Procedures CT ABD/PEL W IVCON CT ABD & PELVIS W/CONTRAST Nicolasa Denise, DO [address] [place] [address] Ct Imaging [place] [address] Referral ID Status Reason Start Date Expiration Date Visits Re quested Visits Authorized [id number] Closed 05/01/2024 09/29/2024 2 2 Reason Onset Date Comments Refill Request 11/04/2024 Reason Onset Date Comments Hospital F/U 11/30/2024 Reason Comments Hospital Follow Up Reason Comments Patient Update Called Reason Comments ER F/U Reason Comments Consult Specialty Diagnoses / Procedures Referred By Contac t Referred To Contact Nephrology Diagnoses 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) Elevated serum creatinine Procedures CONSULT TO NEPHROLOGY OFFICE/OUTPATIENT NEW HIGH MDM 60 MINUTES Nicolasa Denise, DO [address] [place] [address] Phone: tel: fax: Referral ID Status Reason Start Date Expiration Date V isits Requested Visits Authorized [id number] Closed PCP Requested Referral 02/02/2025 02/02/2026 1 1 Reason Comments Care Coordination Reason Comments Radiology US Specialty Diagnoses / Procedures Referred By Contac t Referred To Contact US IMAGING Diagnoses Acute renal failure, unspecified acute renal failure type Procedures US KIDNEY/BLADDER US RETROPERITONEAL REAL TIME W/IMAGE COMPLETE Nelly Xiao I, MD [address] [place] [address] Phone: tel: fax: [place] [phone] Referral ID Status Reason Start Date Expiration Date V isits Requested Visits Authorized [id number] Closed Auto-Generate d Referral 04/13/2025 05/13/2026 1 1 Reason Onset Date Comments Refill Request 04/15/2025 Reason Comments ER F/U Cellulitis Reason Comments Appointment Care Teams (unrecognized sec tion and content) Team Leader Surgery Relationship Specialty Start Date End Date Harjeet Bernard MD [address] [place] [id number] PCP - General Internal Medicine 03/26/18 Team Leader Surgery Relationship Specialty Start Date End Date Harjeet Bernard MD [address] [place] [address] PCP - General Internal Medicine 03/26/18 Team Leader Surgery Relationship Specialty Start Date End Date Harjeet Bernard MD [address] [place] [id number] PCP - General Internal Medicine 03/26/18 Team Leader Surgery Relationship Specialty Start Date End Date Harjeet Bernard MD [address] [place] [phone] PCP - General Internal Medicine 03/26/18 Team Leader Surgery Relationship Specialty Start Date End Date Harjeet Bernard MD [address] [place] [address] PCP - General Internal Medicine 03/26/18 Team Leader Surgery Relationship Specialty Start Date End Date Harjeet Bernard MD [address] [place] [id number] PCP - General Internal Medicine 03/26/18 Team Leader Surgery Relationship Specialty Start Date End Date Harjeet Bernard MD [address] [facility] [place] [address] PCP - General Internal Medicine 03/26/18 Team Leader Surgery Relationship Specialty Start Date End Date Harjeet Bernard MD [address] [facility] [place] [address] PCP - General Internal Medicine 03/26/18 Team Leader Surgery Relationship Specialty Start Date End Date Harjeet Bernard MD [address] [facility] [place] [address] PCP - General Internal Medicine 03/26/18 Andre Parnell, DO [address] [place] [facility] [place] [address] Hematology/Oncology 05/03/22 Team Leader Surgery Relationship Specialty Start Date End Date Harjeet Bernard MD [address] [facility] [place] [address] PCP - General Internal Medicine 03/26/18 Andre Parnell, DO [address] [place] [facility] [place] [address] Hematology/Oncology 05/03/22 Team Leader Surgery Relationship Specialty Start Date End Date Harjeet Bernard MD [address] [facility] [place] [address] PCP - General Internal Medicine 03/26/18 Andre Parnell, DO [address] [facility] [place] [address] Hematology/Oncology 05/03/22 Team Leader Surgery Relationship Specialty Start Date End Date Harjeet Bernard MD [address] [facility] [place] [address] PCP - General Internal Medicine 03/26/18 Andre Parnell, DO [address] [place] [address] Hematology/Oncology 05/03/22 Team Leader Surgery Relationship Specialty Start Date End Date Harjeet Bernard MD [address] [place] [address] PCP - General Internal Medicine 03/26/18 Andre Parnell, DO [address] [place] [address] Hematology/Oncology 05/03/22 Team Leader Surgery Relationship Specialty Start Date End Date Harjeet Bernard MD [address] [place] [address] PCP - General Internal Medicine 03/26/18 Andre Parnell, DO [address] [place] [address] Hematology/Oncology 05/03/22 Team Leader Surgery Relationship Specialty Start Date End Date Harjeet Bernard MD [address] [place] [address] PCP - General Internal Medicine 03/26/18 Andre Parnell, DO [address] [place] [address] Hematology/Oncology 05/03/22 Team Leader Surgery Relationship Specialty Start Date End Date Harjeet Bernard MD [address] [place] [address] PCP - General Internal Medicine 03/26/18 Andre Parnell, DO [address] [place] [address] Hematology/Oncology 05/03/22 Graciela Weeks RN [address] [place] [address] Primary Care Superintendent Internal Medicine 06/29/22 07/29/22 Team Leader Surgery Relationship Specialty Start Date End Date Harjeet Bernard MD [address] [facility] [place] [address] PCP - General Internal Medicine 03/26/18 Andre Parnell, DO [address] [place] [address] Hematology/Oncology 05/03/22 Graciela Weeks RN [address] [facility] [place] [address] Primary Care Superintendent Internal Medicine 06/29/22 07/29/22 Team Leader Surgery Relationship Specialty Start Date End Date Harjeet Bernard MD [address] [place] [address] PCP - General Internal Medicine 03/26/18 Andre Parnell, DO [address] [place] [address] Hematology/Oncology 05/03/22 Graciela Weeks RN [address] [place] [address] Primary Care Superintendent Internal Medicine 06/29/22 07/29/22 Team Leader Surgery Relationship Specialty Start Date End Date Harjeet Bernard MD [address] [place] [address] PCP - General Internal Medicine 03/26/18 Andre Parnell, DO [address] [place] [facility] [place] [place] [address] Hematology/Oncology 05/03/22 Graciela Weeks RN [address] [place] [address] Primary Care Superintendent Internal Medicine 06/29/22 07/29/22 Team Leader Surgery Relationship Specialty Start Date End Date Harjeet Bernard MD [address] [facility] [place] [address] PCP - General Internal Medicine 03/26/18 Andre Parnell, DO [address] [place] [facility] [place] [address] Hematology/Oncology 05/03/22 Graciela Weeks RN [address] [place] [address] Primary Care Superintendent Internal Medicine 06/29/22 07/29/22 Team Leader Surgery Relationship Specialty Start Date End Date Harjeet Bernard MD [address] [facility] [place] [address] PCP - General Internal Medicine 03/26/18 Andre Parnell, DO [address] [place] [facility] [place] [address] Hematology/Oncology 05/03/22 Graciela Weeks RN [address] [facility] [place] [address] Primary Care Superintendent Internal Medicine 06/29/22 07/29/22 Team Leader Surgery Relationship Specialty Start Date End Date Harjeet Bernard MD [address] [facility] [address] PCP - General Internal Medicine 03/26/18 Andre Parnell, DO [address] [facility] [place] [address] Hematology/Oncology 05/03/22 Graciela Weeks RN [address] [facility] [place] [address] Primary Care Superintendent Internal Medicine 06/29/22 07/29/22 Team Leader Surgery Relationship Specialty Start Date End Date Harjeet Bernard MD [address] [place] [address] PCP - General Internal Medicine 03/26/18 Andre Parnell, DO [address] [facility] [place] [address] Hematology/Oncology 05/03/22 Graciela Weeks RN [address] [place], [place] [id number] [phone] Primary Care Superintendent Internal Medicine 06/29/22 07/29/22 Team Leader Surgery Relationship Specialty Start Date End Date Harjeet Bernard MD [address] [facility] [place] [address] PCP - General Internal Medicine 03/26/18 Andre Parnell, DO [address] [facility] [place] [address] Hematology/Oncology 05/03/22 Team Leader Surgery Relationship Specialty Start Date End Date Harjeet Bernard MD [address] [facility] [place] [address] PCP - General Internal Medicine 03/26/18 Andre Parnell, DO [address] [facility] [place] [address] Hematology/Oncology 05/03/22 Team Leader Surgery Relationship Specialty Start Date End Date Harjeet Bernard MD [address] [facility] [place] [address] PCP - General Internal Medicine 03/26/18 Andre Parnell, DO [address] [facility] [place] [address] Hematology/Oncology 05/03/22 Graciela Weeks RN [address] [place] [address] Primary Care Superintendent Internal Medicine 06/29/22 07/29/22 Team Leader Surgery Relationship Specialty Start Date End Date Harjeet Bernard MD [address] [place] [address] PCP - General Internal Medicine 03/26/18 Andre Parnell, DO [address] [place] [address] Hematology/Oncology 05/03/22 Team Leader Surgery Relationship Specialty Start Date End Date Harjeet Bernard MD [address] [place] [address] PCP - General Internal Medicine 03/26/18 Andre Parnell, DO [address] [place] [address] Hematology/Oncology 05/03/22 Team Leader Surgery Relationship Specialty Start Date End Date Harjeet Bernard MD [address] [place] [address] PCP - General Internal Medicine 03/26/18 Andre Parnell, DO [address] [place] [address] Hematology/Oncology 05/03/22 Team Leader Surgery Relationship Specialty Start Date End Date Harjeet Bernard MD [address] [place] [address] PCP - General Internal Medicine 03/26/18 Andre Parnell, DO [address] [place] [address] Hematology/Oncology 05/03/22 Team Leader Surgery Relationship Specialty Start Date End Date Harjeet Bernard MD [address] [place] [address] PCP - General Internal Medicine 03/26/18 Andre Parnell, DO [address] [place] [address] Hematology/Oncology 05/03/22 Team Leader Surgery Relationship Specialty Start Date End Date Harjeet Bernard MD [address] [place] [address] PCP - General Internal Medicine 03/26/18 Andre Parnell, DO [address] [place] [address] Hematology/Oncology 05/03/22 Team Leader Surgery Relationship Specialty Start Date End Date Harjeet Bernard MD [address] [place] [address] PCP - General Internal Medicine 03/26/18 Andre Parnell, DO [address] [place] [address] Hematology/Oncology 05/03/22 Team Leader Surgery Relationship Specialty Start Date End Date Harjeet Bernard MD [address] [place] [address] PCP - General Internal Medicine 03/26/18 Andre Parnell, DO [address] [place] [address] Hematology/Oncology 05/03/22 Team Status: Active Member Role Status Dates Nicolasa Savage Family Provider Active Dr. Harjeet Bernard MD Primary Care Provider Active Team Status: Inactive Member Role Status Dates Dr. Harjeet Bernard MD Primary Care Provider Active NORA VILLARREAL Attending Provider Active Team Leader Surgery Relationship Specialty Start Date End Date Harjeet Bernard MD [address] [place] [address] PCP - General Internal Medicine 03/26/18 Andre Parnell, DO [address] [place] [address] Hematology/Oncology 05/03/22 Team Leader Surgery Relationship Specialty Start Date End Date Harjeet Bernard MD [address] [place] [address] PCP - General Internal Medicine 03/26/18 Andre Parnell, DO [address] [place] [address] Hematology/Oncology 05/03/22 Team Leader Surgery Relationship Specialty Start Date End Date Harjeet Bernard MD [address] [place] [address] PCP - General Internal Medicine 03/26/18 Andre Parnell, DO [address] [place] [address] Hematology/Oncology 05/03/22 Team Leader Surgery Relationship Specialty Start Date End Date Harjeet Bernard MD [address] [place] [address] PCP - General Internal Medicine 03/26/18 Andre Parnell DO [address] [place] [address] Hematology/Oncology 05/03/22 Team Leader Surgery Relationship Specialty Start Date End Date Harjeet Bernard MD [address] [place] [address] PCP - General Internal Medicine 03/26/18 Anrde Parnell DO [address] [place] [address] Hematology/Oncology 05/03/22 Team Leader Surgery Relationship Specialty Start Date End Date Harjeet Bernard MD [address] [facility] [place] [address] PCP - General Internal Medicine 03/26/18 Andre Parnell DO [address] [facility] [place] [address] Hematology/Oncology 05/03/22 Team Leader Surgery Relationship Specialty Start Date End Date Harjeet Bernard MD [address] [facility] [place] [address] PCP - General Internal Medicine 03/26/18 Andre Parnell DO [address] [facility] [place] [address] Hematology/Oncology 05/03/22 Team Leader Surgery Relationship Specialty Start Date End Date Harjeet Bernard MD [address] [facility] [place] [address] PCP - General Internal Medicine 03/26/18 Andre Parnell DO [address] [facility] [place] [address] Hematology/Oncology 05/03/22 Team Leader Surgery Relationship Specialty Start Date End Date Harjeet Bernard MD [address] [facility] [place] [address] PCP - General Internal Medicine 03/26/18 Andre Parnell DO [address] [facility] [place] [address] Hematology/Oncology 05/03/22 Team Leader Surgery Relationship Specialty Start Date End Date Harjeet Bernard MD [address] [facility] [place] [address] PCP - General Internal Medicine 03/26/18 Andre Parnell DO [address] [facility] [place] [address] Hematology/Oncology 05/03/22 Team Leader Surgery Relationship Specialty Start Date End Date Harjeet Bernard MD [address] [facility] [place] [address] PCP - General Internal Medicine 03/26/18 Andre Parnell DO [address] [facility] [place] [address] Hematology/Oncology 05/03/22 Team Leader Surgery Relationship Specialty Start Date End Date Harjeet Bernard MD [address] [facility] [place] [address] PCP - General Internal Medicine 03/26/18 Andre Parnell DO [address] [facility] [place] [address] Hematology/Oncology 05/03/22 Team Leader Surgery Relationship Specialty Start Date End Date Harjeet Bernard MD [address] [facility] [place] [address] PCP - General Internal Medicine 03/26/18 Andre Parnell DO [address] [facility] [place] [address] Hematology/Oncology 05/03/22 Team Leader Surgery Relationship Specialty Start Date End Date Harjeet Bernard MD [address] [facility] [place] [address] PCP - General Internal Medicine 03/26/18 Andre Parnell DO [address] [facility] [place] [address] Hematology/Oncology 05/03/22 Team Leader Surgery Relationship Specialty Start Date End Date Harjeet Bernard MD [address] [facility] [place] [address] PCP - General Internal Medicine 03/26/18 Andre Parnell DO [address] [place] [address] Hematology/Oncology 05/03/22 Team Leader Surgery Relationship Specialty Start Date End Date Harjeet Bernard MD [address] [facility] [place] [address] PCP - General Internal Medicine 03/26/18 Andre Parnell DO [address] [place] [address] Hematology/Oncology 05/03/22 Team Leader Surgery Relationship Specialty Start Date End Date Harjeet Bernard MD [address] [place] [address] PCP - General Internal Medicine 03/26/18 Andre Parnell DO [address] [place] [address] Hematology/Oncology 05/03/22 Team Leader Surgery Relationship Specialty Start Date End Date Harjeet Bernard MD [address] [facility] [place] [address] PCP - General Internal Medicine 03/26/18 Andre Parnell DO [address] [place] [address] Hematology/Oncology 05/03/22 Team Leader Surgery Relationship Specialty Start Date End Date Harjeet Bernard MD [address] [facility] [place] [address] PCP - General Internal Medicine 03/26/18 Andre Parnell DO [address] [place] [address] Hematology/Oncology 05/03/22 Julissa Ugarte, PATIENT FLOW COORDINATOR.LITERACY EDUCATION PROFESSOR [address] [place] [address] [facility] Internal Medicine 09/07/24 Meri Menendez PATIENT FLOW COORDINATOR.INFANTRY WEAPONS CREWMEMBER [address] [place] [address] [facility] Internal Medicine 09/07/24 Team Leader Surgery Relationship Specialty Start Date End Date Harjeet Bernard MD [address] [facility] [place] [address] PCP - General Internal Medicine 03/26/18 Andre Parnell DO [address] [address] Hematology/Oncology 05/03/22 Julissa Ugarte, PATIENT FLOW COORDINATOR.LITERACY EDUCATION PROFESSOR [address] [place] [address] [facility] Internal Medicine 09/07/24 Meri Menendez APRN.INFANTRY WEAP[employer] CREWMEMBER [address] [place] [address] [facility] Internal Medicine 09/07/24 Team Leader Surgery Relationship Specialty Start Date End Date Harjeet Bernard MD [address] [place] [address] PCP - General Internal Medicine 03/26/18 Andre Parnell DO [address] [place] [address] Hematology/Oncology 05/03/22 Julissa Ugarte APRN.LITERACY EDUCATION PROFESSOR [address] [place] [address] [facility] Internal Medicine 09/07/24 Meri Menendez APRN.INFANTRY [employer] CREWMEMBER [address] [place] [address] [facility] Internal Medicine 09/07/24 Team Leader Surgery Relationship Specialty Start Date End Date Harjeet Bernard MD [address] [place] [address] PCP - General Internal Medicine 03/26/18 Andre Parnell DO [address] [place] [address] Hematology/Oncology 05/03/22 Julissa Ugarte APRN.LITERACY EDUCATION PROFESSOR [address] [place] [address] [facility] Internal Medicine 09/07/24 Meri Menendez APRN.INFANTRY [employer] CREWMEMBER [address] [address] [facility] Internal Medicine 09/07/24 Team Leader Surgery Relationship Specialty Start Date End Date Harjeet Bernard MD [address] [place] [address] PCP - General Internal Medicine 03/26/18 Andre Parnell DO [address] [place] [address] Hematology/Oncology 05/03/22 Julissa Ugarte APRN.LITERACY EDUCATION PROFESSOR [address] [place] [address] [facility] Internal Medicine 09/07/24 Meri Menendez APRN.INFANTRY [employer] CREWMEMBER [address] [address] [facility] Internal Medicine 09/07/24 Team Leader Surgery Relationship Specialty Start Date End Date Harjeet Bernard MD [address] [place] [address] PCP - General Internal Medicine 03/26/18 Andre Parnell DO [address] [place] [address] Hematology/Oncology 05/03/22 Julissa Ugarte APRN.LITERACY EDUCATION PROFESSOR [address] [place] [address] [facility] Internal Medicine 09/07/24 Meri Menendez APRN.INFANTRY [employer] CREWMEMBER [address] [address] [facility] Internal Medicine 09/07/24 Team Leader Surgery Relationship Specialty Start Date End Date Harjeet Bernard MD [address] [place] [address] PCP - General Internal Medicine 03/26/18 Andre Parnell DO [address] [place] [address] Hematology/Oncology 05/03/22 Julissa Ugarte PATIENT FLOW COORDINATOR.LITERACY EDUCATION PROFESSOR [address] [place] [address] [facility] Internal Medicine 09/07/24 Meri Menendez PATIENT FLOW COORDINATOR.INFANTRY [employer] CREWMEMBER [address] [facility] [place] [address] [facility] Internal Medicine 09/07/24 Team Leader Surgery Relationship Specialty Start Date End Date Harjeet Bernard MD [address] [place] [address] PCP - General Internal Medicine 03/26/18 Andre Parnell DO [address] [place] [address] Hematology/Oncology 05/03/22 Julissa Ugarte, PATIENT FLOW COORDINATOR.LITERACY EDUCATION PROFESSOR [address] [place] [address] [facility] Internal Medicine 09/07/24 Meri Menendez APRN.INFANTRY [employer] CREWMEMBER [address] [facility] [place] [address] [facility] Internal Medicine 09/07/24 Team Leader Surgery Relationship Specialty Start Date End Date Harjeet Bernard MD [address] [place] [address] PCP - General Internal Medicine 03/26/18 Andre Parnell DO [address] [place] [address] Hematology/Oncology 05/03/22 Julissa Ugarte, PATIENT FLOW COORDINATOR.LITERACY EDUCATION PROFESSOR [address] [place] [address] [facility] Internal Medicine 09/07/24 Meri Menendez PATIENT FLOW COORDINATOR.INFANTRY [employer] CREWMEMBER [address] [place] [address] [facility] Internal Medicine 09/07/24 Team Leader Surgery Relationship Specialty Start Date End Date Harjeet Bernard MD [address] [place] [address] PCP - General Internal Medicine 03/26/18 Andre Parnell DO [address] [place] [address] Hematology/Oncology 05/03/22 Julissa Ugarte, PATIENT FLOW COORDINATOR.LITERACY EDUCATION PROFESSOR [address] [place] [address] [facility] Internal Medicine 09/07/24 Meri Menendez PATIENT FLOW COORDINATOR.INFANTRY [employer] CREWMEMBER [address] [place] [address] [facility] Internal Medicine 09/07/24 Team Leader Surgery Relationship Specialty Start Date End Date Harjeet Bernard MD [address] [facility] [place] [address] PCP - General Internal Medicine 03/26/18 Andre Parnell DO [address] [place] [address] Hematology/Oncology 05/03/22 Torito Julissa, PATIENT FLOW COORDINATOR.LITERACY EDUCATION PROFESSOR [address] [facility] [place] [address] [facility] Internal Medicine 09/07/24 Team Status: Active Member [...] Provider Active Start: November 27, 2024 Dr. Jsoe Harman MD Emergency Provider Active Sta rt: November 27, 2024 Dr. Ibrahima Doan DO Admit Provider Active Star t: November 27, 2024 Dr. Ibrahima Doan DO Other Provider Active Star t: November 27, 2024 Dr. Sara Quezada , Attending Provider Active S tart: November 27, 2024 Dr. Sara Quezada , Other Provider Active Start : November 27, [...] t: November 28, 2024 Dr. Sara Quezada , Attending Provider Active S tart: November 28, 2024 Dr. Sara Quezada , Other Provider Active Start : November 28, 2024 Team Status: Active Member Role Status Dates Dr. Harjeet Bernard MD Primary Care Provider Active Start: November 29, 2024 Dr. Jose Harman MD Emergency Provider Active Sta rt: November 29, 2024 Dr. Ibrahima Doan DO Admit Provider Active Star t: November 29, 2024 Dr. Ibrahima Doan DO Other Provider Active Star t: November 29, 2024 Dr. Sara Quezada , Attending Provider Active S tart: November 29, 2024 Dr. Sara Quezada , Other Provider Active Start : November 29, 2024 Team Status: Active Member Role Status Dates Dr. Harjeet Bernard MD Primary Care Provider Active Start: December 15, 2024 Dr. Ibrahima Camarena DO Emergency Provider Active Start: December 15, 2024 [...] December 16, 2024 Dr. Mk Jc , Attending Provider Active Start: December 15, 2024 End: December 16, 2024 Team Status: Active Member Role Status Dates Dr. Harjeet Bernard MD Primary Care Provider Active Start: December 15, 2024 Dr. Ibrahima Camarena , DO Emergency Provider Active Start: December 15, 2024 [...] Active Start: December 16, 2024 Dr. Mk cJ , Admit Provider Active S tart: December 16, 2024 Dr. Mk Jc , Other Provider Active S tart: December 16, 2024 Dr. Antonette Perera MD Attending Provider Active Start: December 16, 2024 Team Leader Surgery Relationship Specialty Start Date End Date Harjeet Bernard MD [address] [place], [place] [address] PCP - General Internal Medicine 03/26/18 Andre Parnell DO [address] [place], [place] [address] Hematology/Oncology 05/03/22 Julissa Ugarte, PATIENT FLOW COORDINATOR.LITERACY EDUCATION PROFESSOR [address] [place], [place] [address] [facility] Internal Medicine 09/07/24 Meri Menendez, PATIENT FLOW COORDINATOR.INFANTRY [employer] CREWMEMBER [address] [place], [place] [address] [facility] Internal Medicine 12/22/24 Team Leader Surgery Relationship Specialty Start Date End Date Harjeet Bernard MD [address] [place] [address] PCP - General Internal Medicine 03/26/18 Andre Parnell DO [address] [place] [address] Hematology/Oncology 05/03/22 Julissa Ugarte, PATIENT FLOW COORDINATOR.LITERACY EDUCATION PROFESSOR [address] [place] [address] [facility] Internal Medicine 09/07/24 Meri Menendez PATIENT FLOW COORDINATOR.INFANTRY [employer] CREWMEMBER [address] [place] [address] [facility] Internal Medicine 12/22/24 Team Leader Surgery Relationship Specialty Start Date End Date Harjeet Bernard MD [address] [place] [address] PCP - General Internal Medicine 03/26/18 Andre Parnell DO [address] [place] [address] Hematology/Oncology 05/03/22 Julissa Ugarte, PATIENT FLOW COORDINATOR.LITERACY EDUCATION PROFESSOR [address] [place] [address] [facility] Internal Medicine 09/07/24 Meri Menendez APRN.INFANTRY [employer] CREWMEMBER [address] [place] [address] [facility] Internal Medicine 12/22/24 Team Status: Active Member Role Status Dates Dr. Harjeet Bernard MD Primary Care Provider Active Start: December 16, 2024 Dr. Ibrahima Camarena , DO Emergency Provider Active Start: December 16, 2024 Dr. Mk Jc , DO Admit Provider Active S tart: December 16, 2024 Dr. Mk Jc , DO Attending Provider Active Start: December 16, 2024 Dr. Mk Jc , DO Other Provider Active S tart: December 16, 2024 Team Status: Inactive Member Role Status Dates Dr. Harjeet Bernard MD Primary Care Provider Active Start: January 15, 2025 End: January 15, 2025 Dr. Iker Richards , Referring Provider Activ e Start: January 15, 2025 End: January 15, 2025 Dr. Iker Richards , Emergency Provider Activ e Start: January 15, 2025 End: January 15, 2025 Team Leader Surgery Relationship Specialty Start Date End Date Harjeet Bernard MD [address] [facility] [place] [address] PCP - General Internal Medicine 03/26/18 Andre Parnell DO [address] [place] [address] Hematology/Oncology 05/03/22 Julissa Ugarte, PATIENT FLOW COORDINATOR.LITERACY EDUCATION PROFESSOR [address] [place] [address] [facility] Internal Medicine 09/07/24 Mrei Menendez, PATIENT FLOW COORDINATOR.INFANTRY [employer] CREWMEMBER [address] [place] [address] [facility] Internal Medicine 12/22/24 Team Leader Surgery Relationship Specialty Start Date End Date Harjeet Bernard MD [address] [place] [address] PCP - General Internal Medicine 03/26/18 Andre Parnell DO [address] [place] [address] Hematology/Oncology 05/03/22 Julissa Ugarte APRN.LITERACY EDUCATION PROFESSOR [address] [place] [address] [facility] Internal Medicine 09/07/24 Meri Menendez APRN.INFANTRY [employer] CREWMEMBER [address] [place] [address] [facility] Internal Medicine 12/22/24 Team Leader Surgery Relationship Specialty Start Date End Date Harjeet Bernard MD [address] [place] [address] PCP - General Internal Medicine 03/26/18 Andre Parnell DO [address] [place] [address] Hematology/Oncology 05/03/22 Julissa Ugarte APRN.LITERACY EDUCATION PROFESSOR [address] [place] [address] [facility] Internal Medicine 09/07/24 Meri Menendez APRN.INFANTRY [employer] CREWMEMBER [address] [place] [address] [facility] Internal Medicine 09/07/24 12/18/24 Meri Menendez APRN.INFANTRY [employer] CREWMEMBER [address] [place] [address] [facility] Internal Medicine 12/22/24 Team Leader Surgery Relationship Specialty Start Date End Date Harjeet Bernard MD [address] [place] [address] PCP - General Internal Medicine 03/26/18 Andre Parnell DO [address] [place], [place] [address] Hematology/Oncology 05/03/22 Julissa Ugarte APRN.LITERACY EDUCATION PROFESSOR [address] [place], [place] [address] [facility] Internal Medicine 09/07/24 02/16/25 Meri Menendez PATIENT FLOW COORDINATOR.INFANTRY [employer] CREWMEMBER [address] [place], [place] [address] [facility] Internal Medicine 12/22/24 Team Status: Active Member Role/Relationship Status Dates Dr. Harjeet Bernard MD Primary Care Provider Active Team Status: Inactive Member Role/Relationship Status Dates Dr. Harjeet Bernard MD Primary [...] November 29, 2024 Team Status: Active Member Role/Relationship Status Dates Dr. Harjeet Bernard MD Primary [...] tart: November 28, 2024 Dr. Sara Quezada , Other Provider Active Start : November 28, 2024 Team Status: Active Member Role/Relationship Status Dates Dr. Harjeet Bernard MD Primary Care Provider Active Start: November 29, 2024 Dr. Jose Harman MD Emergency Provider Active Sta rt: November 29, 2024 Dr. Ibrahima Doan , Admit Provider Active Star t: November 29, 2024 Dr. Ibrahima Doan , Other Provider Active Star t: November 29, 2024 Dr. Sara Quezada , Attending Provider Active S tart: November 29, 2024 Dr. Sara Quezada , Other Provider Active Start : November 29, 2024 Team Status: Inactive Member Role/Relationship Status Dates Dr. Harjeet Bernard MD Primary [...] December 16, 2024 Team Status: Active Member Role/Relationship Status Dates Dr. Harjeet Bernard MD Primary [...] December 15, 2024 Team Status: Active Member Role/Relationship Status Dates Dr. Harjeet Bernard MD Primary Care Provider Active Start: December 16, 2024 Dr. Ibrahima Camarena DO Emergency Provider Active Start: December 16, 2024 Dr. Mk Jc , Admit Provider Active S tart: December 16, 2024 Dr. Mk Jc DO Attending Provider Active Start: December 16, 2024 Dr. Mk Jc , Other Provider Active S tart: December 16, 2024 Team Status: Inactive Member Role/Relationship Status Dates Dr. Harjeet Bernard MD Primary Care Provider Active Start: January 15, 2025 End: January 15, 2025 Dr. Iker Richards , DO Attending Provider Activ e Start: January 15, 2025 End: January 15, 2025 Dr. Iker Richards DO Referring Provider Activ e Start: January 15, 2025 End: January 15, 2025 Dr. Iker Richards DO Emergency Provider Activ e Start: January 15, 2025 End: January 15, 2025 Team Status: Inactive Member Role/Relationship Status Dates Dr. Harjeet Bernard MD Primary Care Provider Active Start: March 28, 2025 End: March 28, 2025 Dr. Hesham Jacobson MD Referring Provider Active S tart: March 28, 2025 End: March 28, 2025 Dr. Hesham Jacobson MD Emergency Provider Active S tart: March 28, 2025 End: March 28, 2025 Team Leader Surgery Relationship Specialty Start Date End Date Harjeet Bernard MD [address] [facility] [place] [address] PCP - General Internal Medicine 03/26/18 Andre Parnell DO [address] [facility], [place] [address] Hematology/Oncology 05/03/22 Meri Menendez, PATIENT FLOW COORDINATOR.INFANTRY [employer] CREWMEMBER [address] [facility] [place] [address] [facility] Internal Medicine 12/22/24 Julissa Ugarte, PATIENT FLOW COORDINATOR.LITERACY EDUCATION PROFESSOR [address] [facility] [place] [address] [facility] Internal Medicine 02/17/25 Team Leader Surgery Relationship Specialty Start Date End Date Harjeet Bernard MD [address] [facility], [place] [address] PCP - General Internal Medicine 03/26/18 Andre Parnell DO [address] [place], [place] [address] Hematology/Oncology 05/03/22 Meri Menendez PATIENT FLOW COORDINATOR.INFANTRY [employer] CREWMEMBER [address] [place], [place] [address] [facility] Internal Medicine 12/22/24 Julissa Ugarte, PATIENT FLOW COORDINATOR.LITERACY EDUCATION PROFESSOR [address] [place], [place] [address] [facility] Internal Medicine 02/17/25 Team Status: Inactive Member Role/Relationship Status Dates Dr. Harjeet Bernard MD Primary Care Provider Active Start: December 15, 2024 End: December 16, 2024 Dr. Ibrahima Camarena DO Emergency Provider Active Start: December 15, 2024 End: December 16, 2024 Dr. Mk Jc DO Admit Provider Active S tart: December 15, 2024 End: December 16, 2024 Dr. Mk Jc DO Attending Provider Active Start: December 15, 2024 End: December 16, 2024 Team Status: Active Member Role/Relationship Status Dates Dr. Harjeet Bernard MD Primary Care Provider Active Start: December 15, 2024 Dr. Ibrahima Camarena DO Emergency Provider Active Start: December 15, 2024 Dr. Mk Jc DO Admit Provider Active S tart: December 15, 2024 Dr. Mk Jc DO Attending Provider Active Start: December 15, 2024 Dr. Mk Jc DO Other Provider Active S tart: December 15, 2024 Team Status: Active Member Role/Relationship Status Dates Dr. Harjeet Bernard MD Primary Care Provider Active Start: December 16, 2024 Dr. Ibrahima Camarena DO Emergency Provider Active Start: December 16, 2024 Dr. Mk Jc DO Admit Provider Active S tart: December 16, 2024 Dr. Mk Jc DO Attending Provider Active Start: December 16, 2024 Dr. Mk Jc , Other Provider Active S tart: December 16, 2024 Team Status: Inactive Member Role/Relationship Status Dates Dr. Harjeet Bernard MD Primary Care Provider Active Start: January 15, 2025 End: January 15, 2025 Dr. Iker Richards DO Attending Provider Activ e Start: January 15, 2025 End: January 15, 2025 Dr. Iker Richards DO Referring Provider Activ e Start: January 15, 2025 End: January 15, 2025 Dr. Iker Richards DO Emergency Provider Activ e Start: January 15, 2025 End: January 15, 2025 Team Status: Inactive Member Role/Relationship Status Dates Dr. Harjeet Bernard MD Primary Care Provider Active Start: March 28, 2025 End: March 28, 2025 Dr. Hesham Jacobson MD Attending Provider Active S tart: March 28, 2025 End: March 28, 2025 Dr. Hesham Jacobson MD Referring Provider Active S tart: March 28, 2025 End: March 28, 2025 Dr. Hesham Jacobson MD Emergency Provider Active S tart: March 28, 2025 End: March 28, 2025 Team Status: Inactive Member Role/Relationship Status Dates Dr. Harjeet Bernard MD Primary Care Provider Active Start: April 12, 2025 End: April 12, 2025 Nathen Walker MD Emergency Provider Active Star t: April 12, 2025 End: April 12, 2025 Team Leader Surgery Relationship Specialty Start Date End Date Harjeet Bernard MD [address] [place] [address] PCP - General Internal Medicine 03/26/18 Andre Parnell DO [address] [place] [address] Hematology/Oncology 05/03/22 Meri Menendez APRN.INFANTRY [employer]ONS CREWMEMBER [address] [place] [address] [facility] Internal Medicine 12/22/24 Julissa Ugarte, PERLA.LITERACY EDUCATION PROFESSOR [address] [place] [address] [facility] Internal Medicine 02/17/25 Team Leader Surgery Relationship Specialty Start Date End Date Harjeet Bernard MD [address] [place] [address] PCP - General Internal Medicine 03/26/18 Andre Parnell DO [address] [place] [address] Hematology/Oncology 05/03/22 Meri Menendez PATIENT FLOW COORDINATOR.INFANTRY [employer] CREWMEMBER [address] [place] [address] [facility] Internal Medicine 12/22/24 Julissa Ugarte, PATIENT FLOW COORDINATOR.LITERACY EDUCATION PROFESSOR [address] [place] [address] [facility] Internal Medicine 02/17/25 Team Leader Surgery Relationship Specialty Start Date End Date Harjeet Bernard MD [address] [place] [address] PCP - General Internal Medicine 03/26/18 Andre Parnell DO [address] [place] [address] Hematology/Oncology 05/03/22 Meri Menendez PATIENT FLOW COORDINATOR.INFANTRY [employer]ONS CREWMEMBER [address] [place] [address] [facility] Internal Medicine 12/22/24 Julissa Ugarte APRN.LITERACY EDUCATION PROFESSOR [address] [place] [address] [facility] Internal Medicine 02/17/25 Team Leader Surgery Relationship Specialty Start Date End Date Harjeet Bernard MD [address] [place] [address] PCP - General Internal Medicine 03/26/18 Andre Parnell DO [address] [place] [address] Hematology/Oncology 05/03/22 Meri Menendez APRN.INFANTRY [employer] CREWMEMBER [address] [place] [address] [facility] Internal Medicine 12/22/24 Julissa Ugarte, PERLA.LITERACY EDUCATION PROFESSOR [address] [place] [address] [facility] Internal Medicine 02/17/25 Team Leader Surgery Relationship Specialty Start Date End Date Harjeet Bernard MD [address] [place] [address] PCP - General Internal Medicine 03/26/18 Andre Parnell DO [address] [place] [address] Hematology/Oncology 05/03/22 Meri Menendez APRN.INFANTRY [employer] CREWMEMBER [address] [place] [address] [facility] Internal Medicine 12/22/24 Julissa Ugarte, PATIENT FLOW COORDINATOR.LITERACY EDUCATION PROFESSOR [address] [place] [address] [facility] Internal Medicine 02/17/25 Team Leader Surgery Relationship Specialty Start Date End Date Harjeet Bernard MD [address] [place] [address] PCP - General Internal Medicine 03/26/18 Andre Parnell DO [address] [place] [address] Hematology/Oncology 05/03/22 Meri Menendez PATIENT FLOW COORDINATOR.INFANTRY [employer] CREWMEMBER [address] [facility] [place] [address] [facility] Internal Medicine 12/22/24 Julissa Ugarte PATIENT FLOW COORDINATOR.LITERACY EDUCATION PROFESSOR [address] [facility] [place] [address] [facility] Internal Medicine 02/17/25 Team Leader Surgery Relationship Specialty Start Date End Date Harjeet Bernard MD [address] [place] [address] PCP - General Internal Medicine 03/26/18 Andre Parnell DO [address] [place] [address] Hematology/Oncology 05/03/22 Meri Menendez PATIENT FLOW COORDINATOR.INFANTRY WE[employer] CREWMEMBER [address] [facility] [place] [address] [facility] Internal Medicine 12/22/24 Julissa Ugarte APRN.LITERACY EDUCATION PROFESSOR [address] [facility] [place] [address] [facility] Internal Medicine 02/17/25 Team Leader Surgery Relationship Specialty Start Date End Date Harjeet Bernard MD [address] [place], [place] [address] PCP - General Internal Medicine 03/26/18 Andre Parnell DO [address] [place], [place] [address] Hematology/Oncology 05/03/22 Meri Menendez PATIENT FLOW COORDINATOR.INFANTRY [employer] CREWMEMBER [address] [place], [place] [address] [facility] Internal Medicine 12/22/24 Julissa Ugarte, PATIENT FLOW COORDINATOR.LITERACY EDUCATION PROFESSOR [address] [place] [address] [facility] Internal Medicine 02/17/25 (unrecognized sect ion and content) No Status Records FoundNo Status Records FoundNo Status Records Found INFORMATION SOURCE (unrecogn ized section and content) DATE CREATED AUTHOR 07/04/2022 [facility] DATE CREATED AUTHOR AUTHOR'S ORGANIZ ATION 04/16/2025 [facility] DATE CREATED AUTHOR AUTHOR'S ORGANIZ ATION 05/18/2025 [facility] Goals (unrecognized section and content) Goals [...] BE BASED ON THE PRIMARY CLINICAL RECORDS. [employer] provides no warranty or guarantee of the accuracy or completeness of information in this document.
--- NOTE | 2025-05-20 07:11 | EX.ED.DYSGE1 ---
HPI History of Present Illness Chief Complaint: General Illness Informant: patient Narrative Narrative: Patient is a 55-year-old male with past medical history of chronic kidney disease with previous ileostomy. 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 He states on Saturday he began with generalized abdominal discomfort with a few bouts of nausea and vomiting. He states since that time he is also had essentially brown water moving through his ileostomy. He states there is been no fevers and he denies any significant abdominal discomfort and he denies any known sick contact. However he is concerned that he is becoming dehydrated and potentially developing acute on chronic kidney injury as this has happened in the past and therefore he comes in for evaluation [facility] Medical History Dehydration Acute kidney injury Cancer of appendix Ileostomy present Acute appendicitis Home Medications ?Medication ?Instructions ?Recorded ?Last Taken ?Type bupropion HCl 150 mg tablet,12 hr 150 mg PO DAILY 05/04/24 12/15/24 History sustained-release fluvoxamine 150 mg 150 mg PO DAILY 05/04/24 12/15/24 History capsule,extended release 24 hr ondansetron 8 mg disintegrating 8 mg PO Q8H PRN nausea and 05/04/24 Unknown Rx tablet vomiting #20 tabs omeprazole 20 mg capsule,delayed 20 mg PO DAILY 11/26/24 12/15/24 History release psyllium husk 3 gram oral powder 1 packet PO TID #54 ea 11/29/24 12/15/24 Rx packet (Daily Fiber (psyllium-aspartame)) dicyclomine 20 mg tablet 20 mg PO .QID PRN diarrhea #20 tabs 12/16/24 Unknown Rx diphenoxylate-atropine 2.5 2 tab PO Q6H PRN diarrhea #30 tabs 12/16/24 Unknown Rx mg-0.025 mg tablet (Lomotil) amoxicillin 875 mg-potassium 875 mg PO Q12H #20 TABLETS 04/12/25 Unknown Rx clavulanate 125 mg tablet Allergy/AdvReac Type Severity Reaction Status Date / Time No Known Allergies Allergy Verified 05/20/25 06:39 Family History Other VTE (venous thromboembolism) Surgical History S/P splenectomy H/O colectomy Social History household members: spouse housing: house Smoking Status: Never smoker ROS ROS ED Constitutional Constitutional ED: Reports other Details: Positive generalized fatigue ; Denies chills or fever(s) Eyes Eyes: Denies change in vision ENT ENT ED: Denies sore throat Cardiovascular Cardiovascular: Denies chest pain Respiratory/Chest Respiratory/Chest: Denies cough or dyspnea Gastrointestinal Gastrointestinal: Reports diarrhea, nausea and vomiting; Denies abdominal pain Genitourinary Genitourinary ED: Denies dysuria Musculoskeletal Musculoskeletal: Denies back pain or myalgias Integumentary Denies rash Neurologic Neurologic: Denies headache(s) Hematologic/Lymphatic Hematologic/Lymphatic: Denies easy bleeding or easy bruising EXAM Physical Exam Const Vital Signs: 05/20/25 06:36 05/20/25 06:39 Temperature 97.7 F L Temperature Source Oral Pulse Rate 103 H Respiratory Rate 18 Respiratory Effort Normal Non-Labored Respiratory Pattern Normal Blood Pressure 118/68 Blood Pressure Mean 84 Pulse Ox 98 Oxygen Delivery Method Room Air Positive well nourished and well developed General Appearance ED: well developed; Negative for pallor HEENT Reports dry mucous membranes HEENT Narrative: Normocephalic atraumatic No tongue or lip swelling no oral lesions no airway edema or compromise; no signs of infection noted in the posterior pharynx Mucous membranes are dry and tacky however Mouth ED: Yes dry mucous membranes Mouth: dry mucous membranes Eyes PERRL and EOMs intact bilaterally General Eye ED: Negative for scleral icterus Neck supple Resp normal respiratory effort and clear to auscultation bilaterally Cardio regular rhythm Rate: tachycardic and other Other Details: Slightly tachycardic rate with regular rhythm Radial and carotid pulses are equal and symmetric GI non-tender, non-distended and no masses GI Narrative: Abdomen is soft and nondistended with hyperactive bowel sounds. Ileostomy is present in the right mid abdomen with essentially brown water within the ostomy bag. No significant pain with palpation. No voluntary guarding or rigidity or pulsatile mass. Auscultation: hyperactive bowel sounds Palpation: soft Extremity normal to inspection Neuro oriented x3, CN's II-XII intact bilaterally and no sensory deficits noted Sensorium / Orientation: alert Motor Exam: strength 5/5 throughout Psych mental status grossly normal Skin no rashes or lesions noted and No skin turgor normal Skin Narrative: Skin turgor is increased consistent with dehydration General Skin Exam: Negative for jaundice or pallor MDM MDM MDM Narrative Medical decision making narrative: Patient arrived to the ER and is mildly tachycardic but otherwise with stable vitals. He reported roughly 4 days of decreased oral intake with excessive output from his ileostomy. Physical exam is concerning for dehydration with dry mucous membranes and skin tenting and mild tachycardia. He has known chronic kidney disease but states he has had acute kidney injury in the past. There is concern for this with his symptoms and physical exam. Basic labs were obtained his white count is elevated at 14.8 but this is most likely stress response as he has normal tensive and afebrile with a soft nonsurgical abdomen. His BUN is increased from 29 on April 12 204 today consistent with dehydration. His creatinine has increased from 1.94-3.73 indicating acute kidney injury. Even though the BUN is elevated as his blood pressure is normal and his H&H stable I have low concern for an acute GI bleed. At this time however secondary to his electrolyte abnormalities and acute on chronic kidney injury I feel he will need admitted to the hospital for continued IV hydration and laboratory monitoring. Therefore I discussed the case with the hospitalist who agrees to accept the patient for continued care History & Record Review Discussion w/independent historian: Patient Lab Data Attestation: I reviewed the patient's lab results. Labs: Laboratory Results - last 24 hr 05/20/25 06:49 WBC 14.8 H RBC 4.19 L Hgb 12.6 L Hct 39.5 L MCV 94.3 H MCH 30.1 MCHC 31.9 L RDW Std Deviation 46.9 H RDW Coeff of Dirk 13.6 Plt Count 523 H MPV 8.7 Immature Gran % (Auto) 0.400 Neut % (Auto) 87.1 H Lymph % (Auto) 4.7 L [place] % (Auto) 7.6 Eos % (Auto) 0.1 Baso % (Auto) 0.1 Absolute Neuts (auto) 12.9 H Absolute Lymphs (auto) 0.69 L Nucleated RBC % 0 Sodium 126 L Potassium 5.2 H Chloride 96 L Carbon Dioxide 10.9 L Anion Gap 19 H BUN 104 H* Creatinine 3.73 H Estim Creat Clear Calc 25.88 L Est GFR (MDRD) Non-Af 19 L BUN/Creatinine Ratio 27.9 H Glucose 133 H Calcium 9.0 Phosphorus 7.3 H Magnesium 1.6 Management Discussion w/another healthcare provider: Hospitalist Discharge Plan Triage Chief Complaint: General Illness ED Provider: Primo May Dx/Rx/DC Orders Clinical Impression: [id number] kidney injury, Dehydration, Diarrhea, Acute hyponatremia Prescriptions: No Action bupropion HCl 150 mg tablet sustained-release 12 hr 150 mg PO DAILY Patient Comments: [NO ORIGINAL SIG] fluvoxamine 150 mg capsule,extended release 24hr 150 mg PO DAILY Patient Comments: [NO ORIGINAL SIG] ondansetron 8 mg tablet,disintegrating 8 mg PO Q8H PRN (Reason: nausea and vomiting) Qty: 20 0RF omeprazole 20 mg capsule,delayed release(DR/EC) 20 mg PO DAILY Daily Fiber (psyllium-aspart) 3 gram Powder In Packet 1 packet PO TID Qty: 54 0RF diphenoxylate-atropine [Lomotil] 2.5-0.025 mg tablet 2 tab PO Q6H PRN (Reason: diarrhea) Qty: 30 0RF dicyclomine 20 mg tablet 20 mg PO .QID PRN (Reason: diarrhea) Qty: 20 0RF amoxicillin-pot clavulanate 875-125 mg tablet 875 mg PO Q12H Qty: 20 0RF Primary Care Provider: Diandra Gonzales Referrals: Diandra Gonzales MD [Primary Care Provider] - Print Language: Irish Disposition Disposition: [facility] Care [facility]
[2025-05-20 07:18] LABS: Magnesium 1.6 mg/dL (1.5-2.2)
[2025-05-20 07:21] LABS: Anion Gap 19 (5-15); BUN 104 mg/dL (4-19); BUN/Creat Ratio 27.9 RATIO (10-20); Calcium,Total 9.0 mg/dL (7.6-11.0); Carbon Dioxide 10.9 mmol/L (21.0-32.0); Chloride 96 mmol/L (98-108); Estimated Creatinine Clearance 25.88 ml/min (50-250); Glucose 133 mg/dL (70-99); Potassium 5.2 mmol/L (3.3-5.1)
--- NOTE | 2025-05-20 07:46 | PCM.HP.STD ---
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 Patient states symptoms started 4 days prior to his admission. Denied any subjective fever no chills however did complain of some nausea and did notice increasing output from his ileostomy. Patient felt he was dehydrated hence the decision to present to the emergency department to be evaluated. Patient was found to have worsening kidney function admitted to a monitored bed for subsequent management [facility] Medical History Dehydration Acute kidney injury Cancer of appendix Ileostomy present Acute appendicitis Home Medications ?Medication ?Instructions ?Recorded ?Last Taken ?Type bupropion HCl 150 mg tablet,12 hr 150 mg PO DAILY mood 05/04/24 05/20/25 05:30 History sustained-release fluvoxamine 150 mg 150 mg PO DAILY depression 05/04/24 05/19/25 22:45 History capsule,extended release 24 hr ondansetron 8 mg disintegrating 8 mg PO Q8H PRN nausea and 05/04/24 Unknown Rx tablet vomiting #20 tabs psyllium husk 3 gram oral powder 1 packet PO TID stool #54 ea 11/29/24 05/19/25 Rx packet (Daily Fiber (psyllium-aspartame)) dicyclomine 20 mg tablet 20 mg PO .QID PRN diarrhea #20 tabs 12/16/24 05/19/25 Rx diphenoxylate-atropine 2.5 2 tab PO Q6H PRN diarrhea #30 tabs 12/16/24 05/19/25 Rx mg-0.025 mg tablet (Lomotil) omeprazole 40 mg capsule,delayed 40 mg PO DAILY reflux 05/20/25 05/19/25 History release sodium bicarbonate 650 mg tablet 650 mg PO TID kidneys 05/20/25 05/20/25 05:30 History Allergy/AdvReac Type Severity Reaction Status Date / Time No Known Allergies Allergy Verified 05/20/25 06:39 Family History Other VTE (venous thromboembolism) Surgical History S/P splenectomy H/O colectomy Social History (Updated 05/20/25 @ 09:25 by Debra Rangel) household members: spouse housing: house pets and animals: Yes Smoking Status: Never smoker ROS ROS Narrative GENERAL: Generalized weakness and fatigue HEENT: denies headache, sinus congestion, or drainage, dysphagia RESPIRATORY: denies cough, sputum production, CARDIAC: denies chest pain, palpitations, orthopnea, PND GASTROINTESTINAL: Nausea but no vomiting GENITOURINARY: denies dysuria, urgency, frequency, heamaturia EXTREMITY: denies swelling MUSCULOSKELETAL: denies current joint pain or tenderness NEUROLOGIC: denies focal numbness, weakness, tingling HEMATOLOGIC: denies easy bruising and/or hemorrhage INTEGUMENT: denies rashes PSYCHIATRIC: denies suicidal or homicidal ideation Vital Signs Vital Signs Vital Signs: 05/20/25 06:36 05/20/25 06:39 Temperature 97.7 F L Temperature Source Oral Pulse Rate 103 H Respiratory Rate 18 Respiratory Effort Normal Non-Labored Respiratory Pattern Normal Blood Pressure 118/68 Blood Pressure Mean 84 Pulse Ox 98 Oxygen Delivery Method Room Air Weight Weight: 87.5 kg Body Mass Index (BMI) 25.4 Physical Exam Narrative GENERAL: cooperative HEENT: Atraumatic; normocephalic EYES; Anicteric, Normal Conjunctiva NECK; supple, normal thyroid, RESPIRATORY: Diminished to auscultation CARDIOVASCULAR: Regular S1 S2, GI: soft, normoactive bowel sounds, : No Renal angle tenderness; EXTREMITIES: No edema, no clubbing, MUSCULOSKELETAL: no muscle wasting NEURO: Awake; no lateralizing signs. SKIN: No Rash PSYCH; Flat affect Results Lab / Micro Data 05/20/25 06:49 05/20/25 06:49 Labs: Laboratory Results - last 24 hr 05/20/25 06:49: WBC 14.8 H, RBC 4.19 L, Hgb 12.6 L, Hct 39.5 L, MCV 94.3 H, MCH 30.1, MCHC 31.9 L, RDW Std Deviation 46.9 H, RDW Coeff of Dirk 13.6, Plt Count 523 H, MPV 8.7, Immature Gran % (Auto) 0.400, Neut % (Auto) 87.1 H, Lymph % (Auto) 4.7 L, [place] % (Auto) 7.6, Eos % (Auto) 0.1, Baso % (Auto) 0.1, Absolute Neuts (auto) 12.9 H, Absolute Lymphs (auto) 0.69 L, Nucleated RBC % 0, Sodium 126 L, Potassium 5.2 H, Chloride 96 L, Carbon Dioxide 10.9 L, Anion Gap 19 H, BUN 104 H*, Creatinine 3.73 H, Estim Creat Clear Calc 25.88 L, Est GFR (MDRD) Non-Af 19 L, BUN/Creatinine Ratio 27.9 H, Glucose 133 H, Calcium 9.0, Phosphorus 7.3 H, Magnesium 1.6 Assessment & Plan Assessment/Plan (1) Acute hyponatremia: (2) Diarrhea: (3) Dehydration: PLAN: Plan Patient is a 55-year-old gentleman with history of ileostomy following appendiceal malignancy presented to the emergency department with a 3-day history of progressive generalized weakness and increased output from his ileostomy 1. Acute kidney injury superimposed on chronic kidney disease stage IIIa ? Patient's creatinine on 04/12/2025 was 1.94 creatinine on admission was 3.73. This is secondary to increased output from his ileostomy. Patient has been admitted to monitored bed started on IV hydration with serial monitoring of electrolytes ordered 2. Hyponatremia ? Secondary to hypovolemic hyponatremia patient started on saline with subsequent monitoring of sodium levels ordered to assess response to therapy 3. Hyperkalemia ? Secondary to patient impaired kidney function. Will monitor with repeat K levels 4. Metabolic acidosis ? Patient has some chronicity and is on bicarb tablets. Patient with metabolic acidosis secondary to his impaired kidney function 5. GERD ? On PPI 6.Hyperphosphatemia ? Secondary to patient impaired kidney function do expect improvement with improvement in his kidney function 7. Anemia ? 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 9. Depression with anxiety ? Discontinue patient home antidepressant 10. DVT prophylaxis ? On enoxaparin, dose adjusted for kidney function Time spent in the patient's overall evaluation,decision-making process, review of diagnostic data, adjustment of management, discussion with other providers, nursing nursing and ancillary staff involved in patient's care documentation, 75 Minutes Advance planning; did discuss with the patient regarding advanced directives as well as CODE STATUS. Did explain the various scenarios involved ( FULL CODE, DNR CCA, DNR CCA with no intubation, and DNR CC and what each meant) patient elected to remain full code with CPR intubation if needed. Order was placed. Time spent on discussion 16 minutes. Charges/Coding Multi Select Codes Visit Charges Visit Charges: 54711 [address] Procedures Procedures: 08316 Advncd Care Plan 30 Min
[2025-05-20] MEDS: 0.9% Normal Saline (1000mL) 1,000 ML 150 ML IV (09:34)
--- NOTE | 2025-05-20 14:14 | US_ITS ---
PROCEDURE: KIDNEY AND BLADDER 05/20/2025 REASON FOR EXAM: [place] TECHNIQUE: KIDNEY AND BLADDER COMPARISON: CT scan May 04, 2024 FINDINGS: Kidneys: Right kidney measures 11.7 x 5.8 x 6.8 cm, while the left measures 11.0 x 5.9 x 5.4 cm. [place]: Bilateral hydronephrosis is present. Cysts or Masses: None Bladder: No bladder wall thickening seen. Bladder distention is mild. Prevoid bladder volume 784 cc. Empty bladder postvoid. Right ureteral jet not seen. Left jet is normal.. US/Kidney and Bladder IMPRESSION: Mild bilateral hydronephrosis. Reading Location: [id number]
--- NOTE | 2025-05-20 14:42 | PCM.CONS.R ---
Assessment & Plan Assessment/Plan (1) [place] (acute kidney injury): (2) Hyperkalemia: (3) Metabolic acidosis: PLAN: Plan This is a pleasant 55-year-old male with past medical history significant for appendiceal cancer status post appendectomy, splenectomy, colectomy with ileostomy who presented to the emergency room this morning with complaints of feeling fatigued, unwell and noting increased watery stool from his ostomy bag. Patient was admitted for further evaluation and treatment. Nephrology consulted in view of elevated creatinine. Patient is being followed by nephrology out of [facility]. Patient has had a fluctuating serum creatinine this past year. Difficult to determine baseline serum creatinine. April 2024 creatinine 1.3. Patient admitted to the hospital late October to early November for high ostomy output with volume depletion, creatinine ranged at peak 3.0, at best 1.67 mg/dL. March 28, 2025 creatinine 2.91, April 12 creatinine 1.9 and today creatinine 3.7, BUN 104, potassium 5.2, bicarb 10.9. Patient has received 3 L normal saline. Will change IV fluids to LR at 250 mL an hour. Volume status appears hypovolemic. No acute indication for renal replacement therapy, patient is nonoliguric. Will check UA. Patient states recently noted feeling of incomplete bladder emptying therefore we will check renal ultrasound. Further orders forthcoming as hospitalization evolves, thank you for allowing us to participate in care of Mr. Burrows. Assessment and plan reviewed with Dr. Aguilar. HPI Consult Data Date of Consult: 05/20/25 HPI Narrative HPI Narrative: DOV BURROWS, is a 55 M with past medical history significant for appendiceal cancer status post appendectomy, splenectomy and colectomy with ileostomy roughly 3 years ago who presented to the emergency room this morning with complaints of fatigue and noting increased watery output from his ileostomy. Workup in the emergency room included lab work found to have a creatinine of 3.7, BUN 104, bicarb 10.9 and potassium 5.2. Sodium 126. Patient admitted for further evaluation and treatment. Nephrology consulted in view of elevated creatinine. 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 Patient states he is never required any renal placement therapy. Patient reports he has fluctuating serum creatinine trends secondary to high ostomy output and significant volume depletion. In reviewing past creatinine trends patient has had elevated creatinine since 2023. Patient denies any NSAIDs. Denies dysuria or hematuria. He does state notices urinary frequency and at times feels he does not completely empty his bladder. No new medications. Patient states stool consistency normally like mashed potato consistency but of recent has been liquidy. [facility] Medical History Dehydration Acute kidney injury Cancer of appendix Ileostomy present Acute appendicitis Home Medications ?Medication ?Instructions ?Recorded ?Last Taken ?Type bupropion HCl 150 mg tablet,12 hr 150 mg PO DAILY mood 05/04/24 05/20/25 05:30 History sustained-release fluvoxamine 150 mg 150 mg PO DAILY depression 05/04/24 05/19/25 22:45 History capsule,extended release 24 hr ondansetron 8 mg disintegrating 8 mg PO Q8H PRN nausea and 05/04/24 Unknown Rx tablet vomiting #20 tabs psyllium husk 3 gram oral powder 1 packet PO TID stool #54 ea 11/29/24 05/19/25 Rx packet (Daily Fiber (psyllium-aspartame)) dicyclomine 20 mg tablet 20 mg PO .QID PRN diarrhea #20 tabs 12/16/24 05/19/25 Rx diphenoxylate-atropine 2.5 2 tab PO Q6H PRN diarrhea #30 tabs 12/16/24 05/19/25 Rx mg-0.025 mg tablet (Lomotil) omeprazole 40 mg capsule,delayed 40 mg PO DAILY reflux 05/20/25 05/19/25 History release sodium bicarbonate 650 mg tablet 650 mg PO TID kidneys 05/20/25 05/20/25 05:30 History Allergy/AdvReac Type Severity Reaction Status Date / Time No Known Allergies Allergy Verified 05/20/25 06:39 Family History Other VTE (venous thromboembolism) Surgical History S/P splenectomy H/O colectomy Social History (Updated 05/20/25 @ 09:25 by Debra Rangel) household members: spouse housing: house pets and animals: Yes Smoking Status: Never smoker ROS ROS Narrative As in HPI Physical Exam Narrative Alert and oriented x 3, no apparent distress S1, S2, RRR Lungs sound clear Abdomen soft, nontender No edema Lab / Micro Data 05/20/25 06:49 05/20/25 06:49 Labs: Laboratory Results - last 24 hr 05/20/25 06:49: WBC 14.8 H, RBC 4.19 L, Hgb 12.6 L, Hct 39.5 L, MCV 94.3 H, MCH 30.1, MCHC 31.9 L, RDW Std Deviation 46.9 H, RDW Coeff of Dirk 13.6, Plt Count 523 H, MPV 8.7, Immature Gran % (Auto) 0.400, Neut % (Auto) 87.1 H, Lymph % (Auto) 4.7 L, [place] % (Auto) 7.6, Eos % (Auto) 0.1, Baso % (Auto) 0.1, Absolute Neuts (auto) 12.9 H, Absolute Lymphs (auto) 0.69 L, Nucleated RBC % 0, Sodium 126 L, Potassium 5.2 H, Chloride 96 L, Carbon Dioxide 10.9 L, Anion Gap 19 H, BUN 104 H*, Creatinine 3.73 H, Estim Creat Clear Calc 25.88 L, Est GFR (MDRD) Non-Af 19 L, BUN/Creatinine Ratio 27.9 H, Glucose 133 H, Calcium 9.0, Phosphorus 7.3 H, Magnesium 1.6
[2025-05-20] MEDS: Lactated Ringers 1,000 ML 250 ML IV (14:52)
[2025-05-20 16:41] LABS: Anion Gap 19 (5-15); BUN 99 mg/dL (4-19); BUN/Creat Ratio 34.3 RATIO (10-20); Calcium,Total 8.9 mg/dL (7.6-11.0); Carbon Dioxide 6.0 mmol/L (21.0-32.0); Chloride 102 mmol/L (98-108); Estimated Creatinine Clearance 33.64 ml/min (50-250); Glucose 102 mg/dL (70-99); Potassium 4.8 mmol/L (3.3-5.1)
[2025-05-20] MEDS: Sodium Bicarbonate 50 MEQ in Dextrose 5%-Water (1000mL Bag) 1,000 ML 100 MEQ IV (17:50)
[2025-05-20] MEDS: Sodium Bicarbonate 150 MEQ in Dextrose 5%-Water (1000mL Bag) 1,000 ML 125 MEQ IV (18:58)
[2025-05-20] MEDS: buPROPion (SR) 150 MG Tablet.SA PO (21:37)
[2025-05-21 00:29] LABS: Mucous, Urine 0 SEEN /hpf (<or=2+); Red Blood Cells-Urine 0 SEEN /hpf (0-5); Squamous Epithelial Cells - UA 0 SEEN /hpf (0-5)
[2025-05-21 00:38] LABS: Color, Urine Yellow (Yellow); Glucose, Dipstick Normal (Normal); Ketone-Dipstick Negative (Negative); Leukocyte Esterase-Dipstick Negative /ul (Negative); Nitrite-Dipstick Negative (Negative); Occult Blood-Urine 25 /ul (Negative); Protein-Dipstick 30 mg/dl (Negative); Specific Gravity, Urine 1.020 (1.002-1.030); Urine Bilirubin Dipstick Negative (Negative)
[2025-05-21 03:00] VITALS: BP 115/77; PULSE 97; RESP 14; RESP 16; TEMP 36.8; O2SAT 98
[2025-05-21] MEDS: Sodium Bicarbonate 150 MEQ in Dextrose 5%-Water (1000mL Bag) 1,000 ML 125 MEQ IV ×3 (03:38→23:31)
--- NOTE | 2025-05-21 04:50 | PCM.HOSP.N ---
Hospitalist Note Patient with fall, landed on his buttock. No trauma, no pain, no focal injury per patient. Moving without issue following. Will continue to monitor and defer imaging. BP check per staff 90/66. Will give 500 cc NS bolus.
[2025-05-21] MEDS: 0.9% Normal Saline (500mL Bag) 500 ML 999 ML IV (05:42)
[2025-05-21 05:45] LABS: Hematocrit 29.6 % (40-54); Hemoglobin 9.8 g/dL (13.0-16.5); Immature Granulocytes Count 0.030 X10^3/uL (0.0-0.0); Mean Corp Hgb Conc 33.1 g/dL (32-36); Mean Corpuscular Volume 90.8 fL (80-94); Mean Platelet Vol. 9.0 fl (6.2-12.0); NRBC Flagged by Analyzer 0 % (0-5); POSITIVE DIFFERENTIAL YES; Platelet Count 437 K/mm3 (150-450); RBC Distribution Width CV 13.4 % (11.6-14.6); RBC Distribution Width SD 43.9 fl (35.1-43.9); Red Blood Count 3.26 M/mm3 (4.6-6.2); White Blood Count 9.2 K/mm3 (4.4-11.0)
[2025-05-21 05:52] LABS: Differential Indicated SCAN CRITERIA MET
[2025-05-21 07:03] LABS: Anion Gap 17 (5-15); BUN 91 mg/dL (4-19); BUN/Creat Ratio 33.3 RATIO (10-20); Calcium,Total 8.8 mg/dL (7.6-11.0); Carbon Dioxide 11.7 mmol/L (21.0-32.0); Chloride 100 mmol/L (98-108); Estimated Creatinine Clearance 35.49 ml/min (50-250); Glucose 131 mg/dL (70-99); Magnesium 1.3 mg/dL (1.5-2.2); Potassium 3.9 mmol/L (3.3-5.1)
[2025-05-21 07:15] LABS: Burr Cells 1+
--- NOTE | 2025-05-21 07:45 | PCM.PN.HOSP ---
Reason for Visit Chief Complaint: Fatigue Subjective Subjective Patient seen has no specific complaints. Renal ultrasound obtained the day prior demonstrated bilateral hydronephrosis. Diagnostic data significant for hypomagnesemia Objective Data Objective Data Vital Signs: Vital Signs Temp Pulse Resp BP Pulse Ox O2 Del Method 98.3 F 97 16 115/77 98 Room Air 05/21/25 03:00 05/21/25 03:00 05/21/25 03:00 05/21/25 03:00 05/21/25 03:00 05/21/25 03:00 Oxygen Delivery Method Room Air Weight: 86.1 kg Body Mass Index (BMI) 25.0 Intake & Output: Intake and Output for Last 24 Hours 05/19/25 05/20/25 05/21/25 23:59 23:59 23:59 Intake Total 4463.33 / 4963.33 2083.33 / 2083.33 Output Total 600 / 600 Balance 4463.33 / 4963.33 1483.33 / 1483.33 Lab / Micro Data 05/21/25 05:10 05/21/25 05:10 Labs: Laboratory Results - last 24 hr 05/20/25 14:56: Sodium 127 L, Potassium 4.8, Chloride 102, Carbon Dioxide 6.0 L*, Anion Gap 19 H, BUN 99 H, Creatinine 2.87 H, Estim Creat Clear Calc 33.64 L, Est GFR (MDRD) Non-Af 25 L, BUN/Creatinine Ratio 34.3 H, Glucose 102 H, Calcium 8.9 05/20/25 20:00: Urine Color Yellow, Urine Clarity Clear, Urine pH 6.0, Ur Specific [place] 1.020, Urine Protein 30 H, Urine Glucose (UA) Normal, Urine Ketones Negative, Urine Occult Blood 25 H, Urine Nitrite Negative, Urine Bilirubin Negative, Urine Urobilinogen Normal, Ur Leukocyte Esterase Negative, Urine RBC 0 SEEN, Urine WBC 0 SEEN, Ur Squamous Epith Cells 0 SEEN, Urine Bacteria RARE, Hyaline Casts 0-5 SEEN, Urine Mucus 0 SEEN 05/21/25 04:34: POC Glucose 137 H 05/21/25 05:10: WBC 9.2, RBC 3.26 L, Hgb 9.8 L, Hct 29.6 L, MCV 90.8, MCH 30.1, MCHC 33.1, RDW Std Deviation 43.9, RDW Coeff of Dirk 13.4, Plt Count 437, MPV 9.0, Immature Gran % (Auto) 0.300, Neut % (Auto) 70.7 H, Lymph % (Auto) 11.8 L, [place] % (Auto) 16.6 H, Eos % (Auto) 0.5, Baso % (Auto) 0.1, Absolute Neuts (auto) 6.5, Absolute Lymphs (auto) 1.09, Nucleated RBC % 0, [place] Cells 1+, Sodium 129 L, Potassium 3.9, Chloride 100, Carbon Dioxide 11.7 L, Anion Gap 17 H, BUN 91 H, Creatinine 2.72 H, Estim Creat Clear Calc 35.49 L, Est GFR (MDRD) Non-Af 27 L, BUN/Creatinine Ratio 33.3 H, Glucose 131 H, Calcium 8.8, Phosphorus 4.7 H, Magnesium 1.3 L Physical Exam Narrative GENERAL: cooperative HEENT: Atraumatic; normocephalic EYES; Anicteric, Normal Conjunctiva NECK; supple, normal thyroid, RESPIRATORY: Diminished to auscultation CARDIOVASCULAR: Regular S1 S2, GI: soft, normoactive bowel sounds, : No Renal angle tenderness; EXTREMITIES: No edema, no clubbing, MUSCULOSKELETAL: no muscle wasting NEURO: Awake; no lateralizing signs. SKIN: No Rash PSYCH; Flat affect Assessment & Plan Assessment/Plan (1) Acute hyponatremia: (2) Diarrhea: (3) Dehydration: PLAN: Plan Patient is a 55-year-old gentleman with history of ileostomy following appendiceal malignancy presented to the emergency department with a 3-day history of progressive generalized weakness and increased output from his ileostomy 1. Acute kidney injury superimposed on chronic kidney disease stage IIIa ? Patient's creatinine on 04/12/2025 was 1.94 creatinine on admission was 3.73. This is secondary to increased output from his ileostomy. Patient has been admitted to monitored bed started on IV hydration with serial monitoring of electrolytes ordered ? 05/21/2025; renal ultrasound obtained the day prior demonstrated bilateral hydronephrosis. Patient creatinine down to 2.72 2. Hyponatremia ? Secondary to hypovolemic hyponatremia patient started on saline with subsequent monitoring of sodium levels ordered to assess response to therapy ? 05/21/2025; patient sodium level up to 129 we will continue current treatment regimen 3. Hyperkalemia ? Secondary to patient impaired kidney function. Will monitor with repeat K levels 4. Metabolic acidosis ? Patient has some chronicity and is on bicarb tablets. Patient with metabolic acidosis secondary to his impaired kidney function ? 05/21/2025; patient had to be started on bicarb drip following significant drop in his CO2 to 6 5. GERD ? On PPI 6.Hyperphosphatemia ? Secondary to patient impaired kidney function do expect improvement with improvement in his kidney function 7. Anemia ? 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 9. Depression with anxiety ? Discontinue patient home antidepressant 10. DVT prophylaxis ? On enoxaparin, dose adjusted for kidney function 11. Hypomagnesemia ? Corrected per protocol repeat mag levels ordered in a.m. to assess response to therapy Time spent in the patient's overall evaluation,decision-making process, review of diagnostic data, adjustment of management, discussion with other providers, nursing nursing and ancillary staff involved in patient's care documentation, 38 Minutes A Charges/Coding Visit Charges Inpatient E&M: 67998 Subs Hosp L2
[2025-05-21 09:00] VITALS: BP 104/72; PULSE 84; RESP 14; TEMP 36.6; O2SAT 96
[2025-05-21] MEDS: Magnesium Sulfate 2 GM in Dextrose 5%-Water (100mL Bag) 100 ML IV (09:03)
--- NOTE | 2025-05-21 10:17 | PN.RENAL_ITS ---
Subjective Subjective Sitting up in bed eating breakfast. No overnight events. Denies any complaints. States stool output watery. Objective Data Objective Data Vital Signs: Vital Signs Temp Pulse Resp BP Pulse Ox O2 Del Method 97.8 F 84 14 104/72 96 Room Air 05/21/25 09:00 05/21/25 09:00 05/21/25 09:00 05/21/25 09:00 05/21/25 09:00 05/21/25 09:00 Oxygen Delivery Method Room Air Weight: 86.1 kg Body Mass Index (BMI) 25.0 Intake & Output: Intake and Output for Last 24 Hours 05/19/25 05/20/25 05/21/25 23:59 23:59 23:59 Intake Total 4463.33 / 4963.33 2083.33 / 2083.33 Output Total 600 / 600 Balance 4463.33 / 4963.33 1483.33 / 1483.33 Lab / Micro Data 05/21/25 05:10 05/21/25 05:10 Labs: Laboratory Results - last 24 hr 05/20/25 14:56: Sodium 127 L, Potassium 4.8, Chloride 102, Carbon Dioxide 6.0 L* , Anion Gap 19 H, BUN 99 H, Creatinine 2.87 H, Estim Creat Clear Calc 33.64 L, E st GFR (MDRD) Non-Af 25 L, BUN/Creatinine Ratio 34.3 H, Glucose 102 H, Calcium 8.9 05/20/25 20:00: Urine Color Yellow, Urine Clarity Clear, Urine pH 6.0, Ur Specific [place] 1.020, Urine Protein 30 H, Urine Glucose (UA) Normal, Urine Ketones Negative, Urine Occult Blood 25 H, Urine Nitrite Negative, Urine Bilirubin Negative, Urine Urobilinogen Normal, Ur Leukocyte Esterase Negative, Urine RBC 0 SEEN, Urine WBC 0 SEEN, Ur Squamous Epith Cells 0 SEEN, Urine Bacteria RARE, Hyaline Casts 0-5 SEEN, Urine Mucus 0 SEEN 05/21/25 04:34: POC Glucose 137 H 05/21/25 05:10: WBC 9.2, RBC 3.26 L, Hgb 9.8 L, Hct 29.6 L, MCV 90.8, MCH 30.1, MCHC 33.1, RDW Std Deviation 43.9, RDW Coeff of Dirk 13.4, Plt Count 437, MPV 9.0, Immature Gran % (Auto) 0.300, Neut % (Auto) 70.7 H, Lymph % (Auto) 11.8 L, [place] % (Auto) 16.6 H, Eos % (Auto) 0.5, Baso % (Auto) 0.1, Absolute Neuts (auto) 6.5, Absolute Lymphs (auto) 1.09, Nucleated RBC % 0, Berna Cells 1+, Sodium 129 L , Potassium 3.9, Chloride 100, Carbon Dioxide 11.7 L, Anion Gap 17 H, BUN 91 H, Creatinine 2.72 H, Estim Creat Clear Calc 35.49 L, Est GFR (MDRD) Non-Af 27 L, B UN/Creatinine Ratio 33.3 H, Glucose 131 H, Calcium 8.8, Phosphorus 4.7 H, M agnesium 1.3 L Radiography Diagnostic Testing: Radiology Impression Renal Ultrasound 05/20/25 14:14 IMPRESSION: Mild bilateral hydronephrosis. Reading Location: [facility] Physical Exam Narrative Alert and oriented x 3, no apparent distress S1, S2, RRR Lungs sound clear Abdomen soft, nontender No edema Assessment & Plan Assessment/Plan (1) [place] (acute kidney injury): (2) Hyperkalemia: (3) Metabolic acidosis: PLAN: Plan This is a pleasant 55-year-old male with past medical history significant for appendiceal cancer status post appendectomy, splenectomy, colectomy with ileostomy who presented to the emergency room this morning with complaints of feeling fatigued, unwell and noting increased watery stool from his ostomy bag. Patient was admitted for further evaluation and treatment. Nephrology consulted in view of elevated creatinine. Patient is being followed by nephrology out of [facility]. Patient has had a fluctuating serum creatinine this past year. Difficult to determine baseline serum creatinine. April 2024 creatinine 1.3. Patient admitted to the hospital late October to early November for high ostomy output with volume depletion, creatinine ranged at peak 3.0, at best 1.67 mg/dL. March 28, 2025 creatinine 2.91, April 12 creatinine 1.9 and today creatinine 3.7, BUN 104, potassium 5.2, bicarb 10.9. - [place] superimposed on CKD stage III. Baseline serum creatinine difficult to determine. SCr 1.03 December 2024. Has fluctuation in serum creatinine from high ostomy output and volume depletion. With IV fluids kidney function improves. Serum creatinine 3.73 yesterday --> today SCr 2.72. Potassium normal. Bicarb 11.7. No acute indication for renal placement therapy, patient nonoliguric. UA no blood, 30 protein. Renal ultrasound bilateral hydronephrosis present, prevoid bladder volume 784ml, empty bladder postvoid. Continue IV fluids today. - Metabolic acidosis from high ostomy output and [place]. Improving with bicarb drip. Patient has follow-up with his primary rice dryer mechanic in 1 month. Assessment and plan reviewed with Dr. Aguilar.
[2025-05-21] MEDS: Diphenoxylate/Atrop 1 Tablet 2 TABLET PO ×3 (10:53→23:38)
[2025-05-21 14:07] VITALS: BP 112/71; PULSE 91; RESP 14; TEMP 36.5; O2SAT 94
--- NOTE | 2025-05-21 14:25 | CASEMGMT ---
RN CM Face to Face with patient for initial transition planning/care coordination assessment. RN CM introduced self and role at [facility]. Patient lying in bed, alert and oriented. Patient willing to participate in assessment and is able to answer all questions appropriately. Care providers, pharmacy, and demographics verified. Strata: 3 PCP: Janet Specialists: ROCKY Tanner [place]; Nannette, wheel adjuster; Preferred Pharmacy: [facility] Insurance: [employer] Prescription Benefit: yes Living Will/HPOA: none LNOK: significant other Living Arrangements: Patient lives with significant other in a single story home with 3 steps and railing to enter the home. Patient states he is independent at home. Transportation: self, step daughter. DME/HHC: Patient has shower chair, raised toilet, grab bars, wlaker, rollator, cpap at home. No previous HHC or SNF. Patient wishes to discharge home, denies need for home health at this time. Patient states he has no further needs or concerns at this time. CM to follow for discharge planning needs that may arise. Disposition Plan: Patient to discharge home with family support and follow-up plans in place. Haley SALMON, RN, CM
[2025-05-21 21:00] VITALS: BP 95/66; PULSE 87; RESP 18; TEMP 37; O2SAT 97
[2025-05-21] MEDS: buPROPion (SR) 150 MG Tablet.SA PO (21:39)
[2025-05-22 03:00] VITALS: BP 101/60; PULSE 80; RESP 16; TEMP 36.6; O2SAT 96
[2025-05-22] MEDS: Diphenoxylate/Atrop 1 Tablet 2 TABLET PO (05:25)
[2025-05-22 07:00] LABS: Hematocrit 26.5 % (40-54); Hemoglobin 8.8 g/dL (13.0-16.5); Immature Granulocytes Count 0.040 X10^3/uL (0.0-0.0); Mean Corp Hgb Conc 33.2 g/dL (32-36); Mean Corpuscular Volume 88.9 fL (80-94); Mean Platelet Vol. 8.8 fl (6.2-12.0); NRBC Flagged by Analyzer 0 % (0-5); POSITIVE DIFFERENTIAL YES; Platelet Count 386 K/mm3 (150-450); RBC Distribution Width CV 13.3 % (11.6-14.6); RBC Distribution Width SD 43.1 fl (35.1-43.9); Red Blood Count 2.98 M/mm3 (4.6-6.2); White Blood Count 8.4 K/mm3 (4.4-11.0)
[2025-05-22 07:09] LABS: Differential Indicated SCAN CRITERIA MET
[2025-05-22 07:26] LABS: Anion Gap 15 (5-15); BUN 79 mg/dL (4-19); BUN/Creat Ratio 34.0 RATIO (10-20); Calcium,Total 8.9 mg/dL (7.6-11.0); Carbon Dioxide 18.5 mmol/L (21.0-32.0); Chloride 98 mmol/L (98-108); Estimated Creatinine Clearance 41.61 ml/min (50-250); Glucose 130 mg/dL (70-99); Potassium 3.2 mmol/L (3.3-5.1)
--- NOTE | 2025-05-22 07:56 | PN.HOSP_ITS ---
Reason for Visit Chief Complaint: Fatigue Subjective Subjective Patient sodium levels up to 32, potassium 3.2 this morning his acidosis continue to improve as well as his kidney Objective Data Objective Data Vital Signs: Vital Signs Temp Pulse Resp BP Pulse Ox O2 Del Method 97.9 F 80 16 101/60 96 Room Air 05/22/25 03:00 05/22/25 03:00 05/22/25 03:00 05/22/25 03:00 05/22/25 03:00 05/22/25 03:54 Oxygen Delivery Method Room Air Weight: 86.1 kg Body Mass Index (BMI) 25.0 Intake & Output: Intake and Output for Last 24 Hours 05/20/25 05/21/25 05/22/25 23:59 23:59 23:59 Intake Total 4463.33 / 4963.33 5747.33 / 5747.33 Output Total 600 / 600 Balance 4463.33 / 4963.33 5147.33 / 5147.33 Lab / Micro Data 05/22/25 06:41 05/22/25 06:41 Labs: Laboratory Results - last 24 hr 05/22/25 06:41: WBC 8.4, RBC 2.98 L, Hgb 8.8 L, Hct 26.5 L, MCV 88.9, MCH 29.5, MCHC 33.2, RDW Std Deviation 43.1, RDW Coeff of Dirk 13.3, Plt Count 386, MPV 8.8, Immature Gran % (Auto) 0.500, Neut % (Auto) 64.8, Lymph % (Auto) 11.4 L, M emre % (Auto) 21.6 H, Eos % (Auto) 1.5, Baso % (Auto) 0.2, Absolute Neuts (auto) 5.5, Absolute Lymphs (auto) 0.96, Nucleated RBC % 0, Sodium 132 L, Potassium 3.2 L, Chloride 98, Carbon Dioxide 18.5 L, Anion Gap 15, BUN 79 H, Creatinine 2.32 H , Estim Creat Clear Calc 41.61 L, Est GFR (MDRD) Non-Af 33 L, BUN/Creatinine Ratio 34.0 H, Glucose 130 H, Calcium 8.9 Radiography Diagnostic Testing: Radiology Impression Renal Ultrasound 05/20/25 14:14 IMPRESSION: Mild bilateral hydronephrosis. Reading Location: [facility] Physical Exam Narrative GENERAL: cooperative HEENT: Atraumatic; normocephalic EYES; Anicteric, Normal Conjunctiva NECK; supple, normal thyroid, RESPIRATORY: Diminished to auscultation CARDIOVASCULAR: Regular S1 S2, GI: soft, normoactive bowel sounds, : No Renal angle tenderness; EXTREMITIES: No edema, no clubbing, MUSCULOSKELETAL: no muscle wasting NEURO: Awake; no lateralizing signs. SKIN: No Rash PSYCH; Flat affect Assessment & Plan Assessment/Plan (1) Acute hyponatremia: (2) Diarrhea: (3) Dehydration: PLAN: Plan Patient is a 55-year-old gentleman with history of ileostomy following appendiceal malignancy presented to the emergency department with a 3-day history of progressive generalized weakness and increased output from his ileostomy 1. Acute kidney injury superimposed on chronic kidney disease stage IIIa ? Patient's creatinine on 04/12/2025 was 1.94 creatinine on admission was 3.73. This is secondary to increased output from his ileostomy. Patient has been admitted to monitored bed started on IV hydration with serial monitoring of electrolytes ordered ? 05/21/2025; renal ultrasound obtained the day prior demonstrated bilateral hydronephrosis. Patient creatinine down to 2.72 ? 05/22/2025 patient creatinine down to 2.32 ? Plan is for patient to be assessed for discharge. Patient has been instructed to follow-up with his primary public transportation inspector in [facility] 2. Hyponatremia ? Secondary to hypovolemic hyponatremia patient started on saline with subsequent monitoring of sodium levels ordered to assess response to therapy ? 05/21/2025; patient sodium level up to 129 we will continue current treatment regimen 3. Hyperkalemia ? Secondary to patient impaired kidney function. Will monitor with repeat K levels ? 05/22/2025 patient hyperkalemia has since resolved 4. Metabolic acidosis ? Patient has some chronicity and is on bicarb tablets. Patient with metabolic acidosis secondary to his impaired kidney function ? 05/21/2025; patient had to be started on bicarb drip following significant drop in his CO2 to 6 5. GERD ? On PPI 6.Hyperphosphatemia ? Secondary to patient impaired kidney function do expect improvement with improvement in his kidney function 7. Anemia ? 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 9. Depression with anxiety ? Discontinue patient home antidepressant 10. DVT prophylaxis ? On enoxaparin, dose adjusted for kidney function 11. Hypomagnesemia ? Corrected per protocol repeat mag levels ordered in a.m. to assess response to therapy 12. Hypokalemia ? Potassium supplements ordered. Time spent in the patient's overall evaluation,decision-making process, review of diagnostic data, adjustment of management, discussion with other providers, nursing nursing and ancillary staff involved in patient's care documentation, 38 Minutes A Charges/Coding Visit Charges Inpatient E&M: 97933 [facility] Hosp L2
[2025-05-22 08:49] LABS: Magnesium 1.6 mg/dL (1.5-2.2)
[2025-05-22 09:00] VITALS: BP 114/74; PULSE 88; RESP 15; TEMP 36.7; O2SAT 96
[2025-05-22] MEDS: Potassium Chloride Oral Tablet 20 MEQ 40 MEQ PO (09:42)
--- NOTE | 2025-05-22 10:17 | DS.PCM_ITS ---
Providers Date of Admission: 05/20/25 Date of Discharge: 05/22/25 Primary Care Physician: Dr. Diandra Gonzales MD Consultations 05/20/25 09:05 Consult: Nephrology Routine Consulting Provider: Renita Aguilar Reason for Consult: [place] EMERGENT Consult: No MD Notified: Yes Date Notified: 05/20/25 Time Notified: 09:12 Method of Notification: Answering Service Reason For Visit: [place] Diagnosis Discharge Diagnosis (1) Acute hyponatremia: Status: Acute Code(s): E87.1 - Hypo-osmolality and hyponatremia (2) Diarrhea: Status: Acute Code(s): R19.7 - Diarrhea, unspecified (3) Dehydration: Status: Acute Code(s): E86.0 - Dehydration Plan Patient is a 55-year-old gentleman with history of ileostomy following appendiceal malignancy presented to the emergency department with a 3-day history of progressive generalized weakness and increased output from his ileostomy 1. Acute kidney injury superimposed on chronic kidney disease stage IIIa ? Patient's creatinine on 04/12/2025 was 1.94 creatinine on admission was 3.73. This is secondary to increased output from his ileostomy. Patient has been admitted to monitored bed started on IV hydration with serial monitoring of electrolytes ordered ? 05/21/2025; renal ultrasound obtained the day prior demonstrated bilateral hydronephrosis. Patient creatinine down to 2.72 ? 05/22/2025 patient creatinine down to 2.32 ? Plan is for patient to be assessed for discharge. Patient has been instructed to follow-up with his primary cardiopulmonary supervisor in [facility] 2. Hyponatremia ? Secondary to hypovolemic hyponatremia patient started on saline with subsequent monitoring of sodium levels ordered to assess response to therapy ? 05/21/2025; patient sodium level up to 129 we will continue current treatment regimen 3. Hyperkalemia ? Secondary to patient impaired kidney function. Will monitor with repeat K levels ? 05/22/2025 patient hyperkalemia has since resolved 4. Metabolic acidosis ? Patient has some chronicity and is on bicarb tablets. Patient with metabolic acidosis secondary to his impaired kidney function ? 05/21/2025; patient had to be started on bicarb drip following significant drop in his CO2 to 6 5. GERD ? On PPI 6.Hyperphosphatemia ? Secondary to patient impaired kidney function do expect improvement with improvement in his kidney function 7. Anemia ? 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 9. Depression with anxiety ? Discontinue patient home antidepressant 10. DVT prophylaxis ? On enoxaparin, dose adjusted for kidney function 11. Hypomagnesemia ? Corrected per protocol repeat mag levels ordered in a.m. to assess response to therapy 12. Hypokalemia ? Potassium supplements ordered. Time spent in the patient's overall evaluation,decision-making process, review of diagnostic data, adjustment of management, discussion with other providers, nursing nursing and ancillary staff involved in patient's care documentation, 38 Minutes A Medications at Discharge Home Medications bupropion HCl 150 mg tablet,12 hr sustained-release 150 mg PO DAILY mood 05/04/24 fluvoxamine 150 mg capsule,extended release 24 hr 150 mg PO DAILY depression 05/04/24 ondansetron 8 mg disintegrating tablet 8 mg PO Q8H PRN nausea and vomiting #20 tabs 05/04/24 psyllium husk 3 gram oral powder packet (Daily Fiber (psyllium-aspartame)) 1 packet PO TID stool #54 ea 11/29/24 dicyclomine 20 mg tablet 20 mg PO .QID PRN diarrhea #20 tabs 12/16/24 diphenoxylate-atropine 2.5 mg-0.025 mg tablet (Lomotil) 2 tab PO Q6H PRN diarrhea #30 tabs 12/16/24 omeprazole 40 mg capsule,delayed release 40 mg PO DAILY reflux 05/20/25 sodium bicarbonate 650 mg tablet 650 mg PO TID kidneys 05/20/25 Physical Exam Narrative GENERAL: cooperative HEENT: Atraumatic; normocephalic EYES; Anicteric, Normal Conjunctiva NECK; supple, normal thyroid, RESPIRATORY: Diminished to auscultation CARDIOVASCULAR: Regular S1 S2, GI: soft, normoactive bowel sounds, : No Renal angle tenderness; EXTREMITIES: No edema, no clubbing, MUSCULOSKELETAL: no muscle wasting NEURO: Awake; no lateralizing signs. SKIN: No Rash PSYCH; Flat affect Weight / BMI Weight Weight: 86.1 kg Body Mass Index (BMI) 25.0 ABG / Lab / Microbiology Data 05/22/25 06:41 05/22/25 06:41 Laboratory: Laboratory Results - last 24 hr 05/22/25 06:41: WBC 8.4, RBC 2.98 L, Hgb 8.8 L, Hct 26.5 L, MCV 88.9, MCH 29.5, MCHC 33.2, RDW Std Deviation 43.1, RDW Coeff of Dirk 13.3, Plt Count 386, MPV 8.8, Immature Gran % (Auto) 0.500, Neut % (Auto) 64.8, Lymph % (Auto) 11.4 L, M emre % (Auto) 21.6 H, Eos % (Auto) 1.5, Baso % (Auto) 0.2, Absolute Neuts (auto) 5.5, Absolute Lymphs (auto) 0.96, Nucleated RBC % 0, Sodium 132 L, Potassium 3.2 L, Chloride 98, Carbon Dioxide 18.5 L, Anion Gap 15, BUN 79 H, Creatinine 2.32 H , Estim Creat Clear Calc 41.61 L, Est GFR (MDRD) Non-Af 33 L, BUN/Creatinine Ratio 34.0 H, Glucose 130 H, Calcium 8.9, Phosphorus 2.5 L, Magnesium 1.6 D/C Instructions DC O2, CPAP, BIPAP Needs Home O2 Discharge instructions: No Meaningful Use Info Meaningful Use Meaningful Use Diagnoses (Choose all that apply): None applicable Discharge Plan Admission Admit Date/Time: 05/20/25 07:38 Attending Provider: Hamzah Alvarez Primary Care Provider: Diandra Gonzales Consulting Providers: Renita Aguilar Discharge Orders/Prescriptions Prescriptions: Continued bupropion HCl 150 mg tablet sustained-release 12 hr 150 mg PO DAILY Patient Comments: [NO ORIGINAL SIG] fluvoxamine 150 mg capsule,extended release 24hr 150 mg PO DAILY Patient Comments: [NO ORIGINAL SIG] ondansetron 8 mg tablet,disintegrating 8 mg PO Q8H PRN (Reason: nausea and vomiting) Qty: 20 0RF Daily Fiber (psyllium-aspart) 3 gram Powder In Packet 1 packet PO TID Qty: 54 0RF diphenoxylate-atropine [Lomotil] 2.5-0.025 mg tablet 2 tab PO Q6H PRN (Reason: diarrhea) Qty: 30 0RF dicyclomine 20 mg tablet 20 mg PO .QID PRN (Reason: diarrhea) Qty: 20 0RF omeprazole 40 mg capsule,delayed release(DR/EC) 40 mg PO DAILY sodium bicarbonate 650 mg tablet 650 mg PO TID Referrals / Follow Up: Diandra Gonzales MD [Primary Care Provider] - Within 1 Week Disposition Disposition (needs filled in before D/C Order can be placed): Home, Self Care Charges/Coding Visit Charges Inpatient E&M: 71025 Disch Hosp >30min
[2025-05-22 12:17] VITALS: BP 114/68; PULSE 74; RESP 15; TEMP 36.8; O2SAT 97
== END 2025-05-22 12:11 | disposition home or self-care (01) | DRG 683 ==
LOC: ED 07:42 → PCU 08:46
PROVIDERS: Nurse Practitioner Adult Health; Admitting Provider Internal Medicine; Emergency Provider Emergency Medicine; PCP Internal Medicine; Visit Provider Internal Medicine
DX: N17.9 Acute kidney failure, unspecified (principal); E87.20 Acidosis, unspecified; E87.1 Hypo-osmolality and hyponatremia; D63.8 Anemia in other chronic diseases classified elsewhere; E83.39 Other disorders of phosphorus metabolism; E86.0 Dehydration; N18.31 Chronic kidney disease, stage 3a; Z93.2 Ileostomy status; K21.9 Gastro-esophageal reflux disease without esophagitis; F41.8 Other specified anxiety disorders; E87.5 Hyperkalemia; R19.7 Diarrhea, unspecified; W19.XXXA Unspecified fall, initial encounter; E87.6 Hypokalemia; E83.42 Hypomagnesemia; Z85.89 Personal history of malignant neoplasm of other organs and systems; Z90.49 Acquired absence of other specified parts of digestive tract; Z90.81 Acquired absence of spleen; Z79.899 Other long term (current) drug therapy
CPT/HCPCS: 36415; 76770; 80048; 81001; 82962; 83735; 84100; 85025; 97803; 99283

== ENCOUNTER 2025-05-24 05:56 | Emergency (ER) | payer BC, SELFPAY ==
[2025-05-24] VITALS (13 sets, daily range): BP systolic 110–128; BP diastolic 70–79; PULSE 80–102; RESP 16–18; TEMP 36.7–37; O2SAT 80–100; BMI 25.7
[2025-05-24] MEDS: 0.9% Normal Saline (1000mL) 1,000 ML 999 ML IV (06:11)
--- NOTE | 2025-05-24 06:12 | CT_ITS ---
PROCEDURE: ABDOMEN/PELVIS WITHOUT CONT 05/24/2025 REASON FOR EXAM: ABD PAIN History of prior splenectomy as well as colectomy. Ileostomy. History of appendiceal carcinoma. TECHNIQUE: ABDOMEN/PELVIS WITHOUT CONT Noncontrast technique limits evaluation of the abdominal and pelvic viscera. Coronal and Sagittal reconstruction series were provided. One or more dose reduction techniques were used (e.g., Automated exposure control, adjustment of the mA and/or kV according to patient size, use of iterative reconstruction technique). RADIATION DOSE SUMMARY: CTDlvol: 11.83 mGy DLP: 641.21 mGycm COMPARISON: Prior study dated May 04, 2024 FINDINGS: Lung bases: Patchy infiltrate in the left lower lobe. Radiographic follow-up recommended. Liver: Stable 2.1 cm by 2.2 cm cyst in the left lobe of the liver. Gallbladder: Cholelithiasis. Spleen: Status post splenectomy. Pancreas: Diffuse fatty atrophy. Adrenals: Unremarkable Kidneys: No evidence of hydronephrosis. Bladder: Unremarkable Central prostatic calcification. Bowel: Fluid distention of the stomach. Fluid-filled mildly dilated small bowel loops in the right midabdomen. Vasculature: The abdominal aorta and IVC contours are normal. Noncontrast technique limits evaluation. Peritoneum / Retroperitoneum: There is evidence of diffuse omental metastasis. I also suspect possible lymph nodes within the root of the mesentery. An ileostomy is seen in the right lower quadrant. Bones: Degenerative changes of the spine. CT/Abdomen/Pelvis without Cont IMPRESSION: Patchy left lower lobe infiltrate. Ileostomy and status post colectomy. Fluid distention of the stomach and mildly distended fluid-filled bowel loops i n the right midabdomen. Diffuse omental metastasis. Status post splenectomy. Reading Location: [id number]
--- NOTE | 2025-05-24 06:12 | RAD_ITS ---
PROCEDURE: CHEST PA AND LATERAL N/A REASON FOR EXAM: FATIGUE TECHNIQUE: CHEST PA AND LATERAL COMPARISON: None FINDINGS: Heart size and mediastinal configuration are within normal limits. There is minimal infiltrate or atelectasis in the left lingular segment. There is no pneumothorax or effusion. There is no acute bony abnormality. There is no visible atherosclerosis. RAD/Chest PA and Lateral IMPRESSION: There is minimal atelectasis or infiltrate in the left lingular segment. Reading Location: [facility]
--- NOTE | 2025-05-24 06:13 | EDS_ITS ---
HPI History of Present Illness Chief Complaint: Nausea/Vomiting Informant: patient Narrative Narrative: Patient is a 55-year-old male with past medical history of chronic kidney disease and ileostomy. He was seen on May 20 secondary to nausea with poor oral intake and watery output from his ostomy. At that time he had developed acute on chronic kidney disease and was admitted to the hospital. He was kept in the hospital until May 22 and discharged home. He states that on the and he overall felt well. However he awoke around 1 in the morning on SaturdayMay 24/ and reported feeling overall unwell. He states there has been no fevers or chills. He denies any cough or shortness of breath. He states that there is output from his ileostomy and it is watery in nature but not nearly as severe as the previous visit. However he has concern for return of his severe dehydration and/or possible infection and therefore comes into the ER for evaluation [facility] Medical History Dehydration Acute kidney injury Cancer of appendix Ileostomy present Acute appendicitis Home Medications ?Medication ?Instructions ?Recorded ?Last Taken ?Type bupropion HCl 150 mg tablet,12 hr 150 mg PO DAILY mood 05/04/24 05/20/25 05:30 History sustained-release fluvoxamine 150 mg 150 mg PO DAILY depression 0 05/04/24 05/19/25 22:45 History capsule,extended release 24 hr ondansetron 8 mg disintegrating 8 mg PO Q8H PRN nausea and 05/04/24 Unknown Rx tablet vomiting #20 tabs psyllium husk 3 gram oral powder 1 packet PO TID stool #54 ea 11/29/24 05/19/25 Rx packet (Daily Fiber (psyllium-aspartame)) dicyclomine 20 mg tablet 20 mg PO .QID PRN diarrhea # 20 tabs 12/16/24 05/19/25 Rx diphenoxylate-atropine 2.5 2 tab PO Q6H PRN diarrhea # 30 tabs 12/16/24 05/19/25 Rx mg-0.025 mg tablet (Lomotil) omeprazole 40 mg capsule,delayed 40 mg PO DAILY reflux 05/20/25 05/19/25 History release sodium bicarbonate 650 mg tablet 650 mg PO TID kidneys 05/20/25 05/20/25 05:30 History Allergy/AdvReac Type Severity Reaction Status Date / Time No Known Allergies Allergy Verified 05/24/25 06:03 Family History Other VTE (venous thromboembolism) Surgical History S/P splenectomy H/O colectomy Social History (Updated 05/20/25 @ 09:25 by Debra Rangel) household members: spouse housing: house pets and animals: Yes Smoking Status: Never smoker ROS ROS ED Constitutional Constitutional ED: Denies chills or fever(s) Eyes Eyes: Denies change in vision ENT ENT ED: Denies sore throat Cardiovascular Cardiovascular: Denies chest pain Respiratory/Chest Respiratory/Chest: Denies cough or dyspnea Gastrointestinal Gastrointestinal: Reports abdominal pain and diarrhea; Denies nausea or vomiting Genitourinary Genitourinary ED: Denies dysuria Musculoskeletal Musculoskeletal: Reports myalgias Integumentary Denies rash Neurologic Neurologic: Denies headache(s) Hematologic/Lymphatic Hematologic/Lymphatic: Denies easy bleeding or easy bruising EXAM Physical Exam Const Vital Signs: 05/24/25 05:57 05/24/25 07:01 Temperature 98.0 F 98.6 F Temperature Source Oral Oral Pulse Rate 102 H 80 Respiratory Rate 16 16 Blood Pressure 114/71 128/70 H Blood Pressure Mean 85 89 Pulse Ox 100 96 Oxygen Delivery Method Room Air Room Air Positive well nourished and well developed General Appearance ED: well developed; Negative for pallor HEENT HEENT Narrative: Normocephalic atraumatic No tongue or lip swelling no oral lesions no airway edema or compromise No secondary findings in the posterior pharynx to suggest infection Mucous membranes are mildly dry and tacky Eyes PERRL and EOMs intact bilaterally General Eye ED: Negative for scleral icterus Neck supple Neck Narrative: No nuchal rigidity or meningeal signs Resp normal respiratory effort and clear to auscultation bilaterally Resp Narrative: Breath sounds are diminished throughout but overall clear to auscultation without signs of respiratory distress Cardio regular rate and regular rhythm GI non-distended and no masses GI Narrative: Abdomen is slightly firm with mild pain along the midepigastric region. There is no obvious distention noted. Bowel sounds are hypoactive. No voluntary guarding. No pulsatile mass. No increased tympany. There is brown liquidy stool present in the ileostomy Auscultation: hypoactive bowel sounds Palpation: soft Extremity normal to inspection Neuro oriented x3, CN's II-XII intact bilaterally and no sensory deficits noted Sensorium / Orientation: alert Motor Exam: strength 5/5 throughout Psych mental status grossly normal Skin no rashes or lesions noted and No skin turgor normal Skin Narrative: Skin turgor is increased consistent mild dehydration General Skin Exam: Negative for jaundice or pallor MDM MDM MDM Narrative Medical decision making narrative: Patient arrived to the ER with stable vitals. He was recently seen in the hospital for acute on chronic kidney injury from dehydration. He reported that he just feels unwell but cannot verbalize if this is secondary to fevers chills cough congestion sore throat abdominal pain. With his recent admission there is concern he could have picked up a viral illness such as COVID influenza or RSV so a viral swab was ordered. He is not coughing or short of breath or hypoxic but with concern for potential pneumonia as a cause of his unwell sensation a chest x-ray was ordered as well. His abdomen is still outputting watery stool so concern for obstruction is low but it is firm in nature and therefore in order to assess for potential atypical bowel obstruction versus intestinal infection such as colitis or diverticulitis a CT scan without contrast was ordered. Contrast was held based on the patient's known chronic kidney disease and recent acute kidney injury. Lab work showed leukocytosis at 15.5 with neutrophilia at 13.4. However his lactic acid is normal. His serum bicarb is low at 10.8 which is most likely related to metabolic acidosis and mild dehydration from kidney disease. At this time the patient's viral swab is still pending as well as the official CT scan and chest x-ray read. Therefore, the patient will be signed out to the day physician Dr. Harman History & Record Review Discussion w/independent historian: Patient Lab Data Attestation: I reviewed the patient's lab results. Labs: Laboratory Results - last 24 hr 05/24/25 06:02 WBC 15.5 H RBC 3.68 L Hgb 11.0 L Hct 35.0 L MCV 95.1 H D MCH 29.9 MCHC 31.4 L D RDW Std Deviation 49.3 H RDW Coeff of Dirk 14.3 Plt Count 425 MPV 9.0 Immature Gran % (Auto) 0.500 Neut % (Auto) 86.9 H Lymph % (Auto) 3.4 L [place] % (Auto) 9.0 Eos % (Auto) 0.1 Baso % (Auto) 0.1 Absolute Neuts (auto) 13.4 H Absolute Lymphs (auto) 0.53 L Nucleated RBC % 0 Sodium 131 L Potassium 4.5 Chloride 104 Carbon Dioxide 10.8 L Anion Gap 16 H BUN 68 H Creatinine 2.57 H Estim Creat Clear Calc 37.57 L Est GFR (MDRD) Non-Af 29 L BUN/Creatinine Ratio 26.5 H Glucose 175 H Lactic Acid < 1.0 Calcium 9.9 Phosphorus 3.9 Magnesium 1.8 Total Bilirubin 0.16 Direct Bilirubin 0.09 AST 19 ALT 15 Alkaline Phosphatase 136 H Total Protein 9.2 H Albumin 4.4 Globulin 4.8 H Lipase 399 H Radiography Diagnostic Testing: Clinical Impression(s) from Imaging Studies Chest X-Ray 05/24/25 06:12 IMPRESSION: There is minimal atelectasis or infiltrate in the left lingular segment. Reading Location: [facility] 2 view chest x-ray as interpreted by the emergency medicine physician reveals atelectasis changes without acute infiltrate or pneumothorax or pleural effusion Discharge Plan Triage Chief Complaint: Nausea/Vomiting ED Provider: Primo May Dx/Rx/DC Orders Clinical Impression: Dehydration, Diarrhea, Metabolic acidosis, Leukocytosis, Chronic kidney disease Prescriptions: No Action bupropion HCl 150 mg tablet sustained-release 12 hr 150 mg PO DAILY Patient Comments: [NO ORIGINAL SIG] fluvoxamine 150 mg capsule,extended release 24hr 150 mg PO DAILY Patient Comments: [NO ORIGINAL SIG] ondansetron 8 mg tablet,disintegrating 8 mg PO Q8H PRN (Reason: nausea and vomiting) Qty: 20 0RF Daily Fiber (psyllium-aspart) 3 gram Powder In Packet 1 packet PO TID Qty: 54 0RF diphenoxylate-atropine [Lomotil] 2.5-0.025 mg tablet 2 tab PO Q6H PRN (Reason: diarrhea) Qty: 30 0RF dicyclomine 20 mg tablet 20 mg PO .QID PRN (Reason: diarrhea) Qty: 20 0RF omeprazole 40 mg capsule,delayed release(DR/EC) 40 mg PO DAILY sodium bicarbonate 650 mg tablet 650 mg PO TID Primary Care Provider: Diandra Gonzales Referrals: Diandra Gonzales MD [Primary Care Provider] - Print Language: [place]ian
[2025-05-24 06:15] LABS: Hematocrit 35.0 % (40-54); Hemoglobin 11.0 g/dL (13.0-16.5); Immature Granulocytes Count 0.070 X10^3/uL (0.0-0.0); Mean Corp Hgb Conc 31.4 g/dL (32-36); Mean Corpuscular Volume 95.1 fL (80-94); Mean Platelet Vol. 9.0 fl (6.2-12.0); NRBC Flagged by Analyzer 0 % (0-5); POSITIVE DIFFERENTIAL YES; Platelet Count 425 K/mm3 (150-450); RBC Distribution Width CV 14.3 % (11.6-14.6); RBC Distribution Width SD 49.3 fl (35.1-43.9); Red Blood Count 3.68 M/mm3 (4.6-6.2); White Blood Count 15.5 K/mm3 (4.4-11.0)
[2025-05-24 06:31] LABS: Anion Gap 16 (5-15); BUN 68 mg/dL (4-19); BUN/Creat Ratio 26.5 RATIO (10-20); Calcium,Total 9.9 mg/dL (7.6-11.0); Carbon Dioxide 10.8 mmol/L (21.0-32.0); Chloride 104 mmol/L (98-108); Estimated Creatinine Clearance 37.57 ml/min (50-250); Glucose 175 mg/dL (70-99); Magnesium 1.8 mg/dL (1.5-2.2); Potassium 4.5 mmol/L (3.3-5.1)
[2025-05-24 06:45] LABS: AST(SGOT) 19 U/L (<=37); Alanine Aminotransfer ALT/SGPT 15 U/L (<=46); Albumin, Serum 4.4 g/dL (3.5-5.0); Alkaline Phosphatase 136 U/L (40-129); Bilirubin, Direct 0.09 mg/dL (0.00-0.30); Globulin 4.8 g/dL (2.2-4.2)
[2025-05-24 06:57] LABS: Lipase 399 U/L (13-75)
--- OUTSIDE RECORDS SUMMARY | 2025-05-24 07:02 | XMS RPT_ITS | CCD ---
Author Organization [facility] Care Team Providers Care Study Assistant Name Role Phone Harjeet Bernard MD Primary Care Provider Fany Parnell DO Unavailable Harjeet Bernard MD Primary Care Provider Fany Parnell DO Unavailable Graciela Weeks RN Unavailable SOURAV KOHLER Admitting Unavailable SOURAV KOHLER Attending Unavailable HARJEET BERNARD Primary Care Unavailable Harjeet Bernard MD Primary Care Provider Fany Parnell DO Unavailable Harjeet Bernard MD Primary Care Provider Ugarte THERAPIST RESPIRATORY.FLOTATION TENDER, Julissa Unavailable Shon THERAPIST RESPIRATORY.CNC SUPERVISOR, Meri Unavailable Shon THERAPIST RESPIRATORY.CNC SUPERVISOR, Meri Unavailable Dr. Harjeet Bernard MD Primary Care Provider [phone] Dr. Jose Harman MD Emergency Provider Dr. Ibrahima Doan DO Admit Provider Dr. Ibrahima Doan DO Attending Provider Dr. Ibrahima Doan DO Other Provider Dr. Sara Quezada DO Attending Provider Dr. Sara Quezada DO Other Provider Dr. Ibrahima Camarena DO Emergency Provider Dr. Mk Jc DO Admit Provider Dr. Mk Jc DO Attending Provider Hosea FARIAS, Dr. Terrazas Other Provider Dilma MEZA, Dr. Antonette Galaviz Attending Provider Shon THERAPIST RESPIRATORY.CNC SUPERVISOR, Meri Unavailable Susie FARIAS, Dr. Dong Referring Provider Susie FARIAS, Dr. Dong Emergency Provider Shon THERAPIST RESPIRATORY.CNC SUPERVISOR, Meri Unavailable Ugarte THERAPIST RESPIRATORY.FLOTATION TENDER, Julissa Unavailable Janet MEZA, Dr. Harjeet Cueva Primary Care Provider Kimani MEZA, Dr. Garcia Emergency Provider Olimpia FARIAS, Dr. Alexandra Admit Provider Olimpia FARIAS, Dr. Alexandra Other Provider Wilbert FARIAS, Dr. Ruiz Other Provider Susie FARIAS, Dr. Dong Attending Provider Kavon MEZA, Dr. Dahl Referring Provider Kavon MEZA, Dr. Dahl Emergency Provider Ugarte THERAPIST RESPIRATORY.FLOTATION TENDER, Julissa Unavailable Dr. Harjeet Bernard MD Primary Care Provider [phone] Kavon MEZA, Dr. Dahl Attending Provider Nathen Walker MD Emergency Provider Janet MEZA, Dr. Harjeet Cueva Primary Care Provider Nathen Walker MD Attending Provider Dr. Primo May DO Emergency Provider Antonio MEZA, Dr. Goodson Admit Provider Unavailable Antonio MEZA, Dr. Goodson Attending Provider Unavaila NELLY King Referring Unavailable TALAMPAS, HARJEET D Primary Care Unavailable NILOAMPLOAN, HARJEET Cueva Primary Care Unavailable TALAMPAS, HARJEET D Referring Unavailable TALAMPAS, HARJEET D Primary Care Unavailable TALAMPAS, HARJEET D Referring Unavailable TALAMPAS, HARJEET D Primary Care Unavailable TALAMPAS, HARJEET D Referring Unavailable ASHAI, NELLY Referring Unavailable TALAMPAS, HARJEET D Primary Care Unavailable UGARTE, JULISSA Referring Unavailable TALAMPAS, HARJEET D Primary Care Unavailable TALAMPAS, HARJEET D Primary Care Unavailable TALAMPAS, HARJEET D Primary Care Unavailable TALAMPAS, HARJEET D Referring Unavailable ASHAI, NELLY Referring Unavailable TALAMPAS, HARJEET D Primary Care Unavailable TALAMPAS, HARJEET D Attending Unavailable ASHAI, NELLY Referring Unavailable TALAMPAS, HARJEET D Primary Care Unavailable TALAMPAS, HARJEET D Primary Care Unavailable TALAMPAS, HARJEET D Primary Care Unavailable ASHAI, NELLY Referring Unavailable TALAMPAS, HARJEET D Primary Care Unavailable TALAMPAS, HARJEET D Primary Care Unavailable TALAMPAS, HARJEET D Referring Unavailable TALAMPAS, HARJEET D Primary Care Unavailable TALAMPAS, HARJEET D Referring Unavailable TALAMPAS, HARJEET D Primary Care Unavailable TALAMPAS, HARJEET D Referring Unavailable TALAMPAS, HARJEET D Primary Care Unavailable TALAMPAS, HARJEET D Referring Unavailable UGARTE, JULISSA Attending Unavailable TALAMPAS, HARJEET D Primary Care Unavailable NICOLASA DENISE Attending Unavailable TALAMPAS, HARJEET D Primary Care Unavailable NICOLASA DENISE Attending Unavailable TALAMPAS, HARJEET D Primary Care Unavailable NICOLASA DENISE Attending Unavailable TALAMPAS, HARJEET D Primary Care Unavailable TALAMPAS, HRAJEET D Primary Care Unavailable TALAMPAS, HARJEET D Referring Unavailable TALAMPAS, HARJEET D Primary Care Unavailable TALAMPAS, HARJEET D Attending Unavailable UGARTE, JULISSA Referring Unavailable TALAMPAS, HARJEET D Primary Care Unavailable TALAMPAS, HARJEET D Primary Care Unavailable TALAMPAS, HARJEET D Referring Unavailable UGARTE, JULISSA Referring Unavailable TALAMPAS, HARJEET D Primary Care Unavailable TALAMPAS, HARJEET D Primary Care Unavailable TALAMPAS, HARJEET D Referring Unavailable TALAMPAS, HARJEET D Referring Unavailable TALAMPAS, HARJEET D Primary Care Unavailable TALAMPAS, HARJEET D Primary Care Unavailable TALAMPAS, HARJEET D Referring Unavailable TALAMPAS, HARJEET D Primary Care Unavailable TALAMPAS, HARJEET D Attending Unavailable NICOLASA DENISE Referring Unavailable ASHAI, NELLY Attending Unavailable TALAMPAS, HARJEET D Primary Care Unavailable TALAMPAS, HARJEET D Primary Care Unavailable TALAMPAS, HARJEET D Referring Unavailable TALAMPAS, HARJEET D Primary Care Unavailable TALAMPAS, HARJEET D Referring Unavailable PENNY, KELLEN M Referring Unavailable TALAMPAS, HARJEET D Primary Care Unavailable PENNY, KELLEN M Attending Unavailable TALAMPAS, HARJEET D Primary Care Unavailable TALAMPAS, HARJEET D Primary Care Unavailable TALAMPAS, HARJEET D Referring Unavailable Jeff MEZA, Dr. Maravilla Other Provider Antonio MEZA, Dr. Goodson Other Provider Unavailable Dilma MEZA, Dr. Antonette Galaviz Attending Provider Ibrahima Doan Consulting Unavailable Sara Quezada Attending Unavailable Vannaeri, Ibrahima Admitting Unavailable Talampas, Harjeet D Primary Care Unavailable Mk Jc Attending Unavailable NallelyeletskyMk Admitting Unavailable Talampas, Harjeet D Primary Care Unavailable JoseustRuy Barnhartel Referring Unavailabl e Klusty-Ivan Iker Attending Unavailabl e Talampas, Harjeet D Primary Care Unavailable Mk Jc Attending Unavailable Mk Jc Consulting Unavailable Talampas, Harjeet D Primary Care Unavailable Mk Jc Admitting Unavailable Renita Aguilar Consulting Unavailable Talampas, Harjeet D Primary Care Unavailable Hamzah Alvarez Attending Unavailable Hamzah Alvarez Admitting Unavailable Hamzah lAvarez Consulting Unavailable Antonette Perera Attending Unavailable VannaeriIbrahima Consulting Unavailable Talampas, Harjeet D Primary Care Unavailable VannaeriIbrahima Attending Unavailable Jomerieri, Ibrahima Admitting Unavailable Jomerieri Ibrahima Consulting Unavailable Talampas, Harjeet D Primary Care Unavailable Sara Quezada Attending Unavailable Ibrahima Doan Admitting Unavailable Sara Quezada Consulting Unavailable Hesham Jacobson Referring Unavailable Hesham Jacobson Attending Unavailable Talampas, Harjeet D Primary Care Unavailable Nathen Walker Attending Unavailable Talampas, Harjeet D Primary Care Unavailable Renita Aguilar Consulting Unavailable Hamzah Alvarez Attending Unavailable Hamzah Alvarez Admitting Unavailable Talampas, Harjeet D Primary Care Unavailable Medications Current Medications Medication Drug Class(es) Dates Sig (Normalized) Sig (Original) amoxicillin 875 mg / clavulanate 125 mg oral tablet (10 sources) Penicillin-class Antibacterial Start: 04-12-2025 take 1 tablet by mouth twice daily amoxicillin-clav ulanate potassium (AUGMENTIN) 875-125 mg per tablet Take 875 mg by mouth two times a day. 04/12/2025 Active Start: 04-12-2025 End: 05-20-2025 take 1 tablet by mouth every twelve hours Amoxicillin-Pot Clavulanate 875-125 mg tablet Discontinued 875 mg PO Q12H April 12, 2025 12:00am May 20, 2025 7:48am atropine sulfate 0.025 mg / diphenoxylate hydrochloride [...] mg PO DAILY May 04, 2024 12:00am mood Start: 03-23-2024 End: 12-21-2024 take 1 tablet [...] (1 source) Benzodiazepine Start: 06-27-20 End: 07-02-20 take 1 tablet by mouth every eight [...] days. dicyclomine hydrochloride 20 mg oral tablet (17 sources) Anticholinergic Start: 12-17-19 End: 04-13-20 take 1 tablet by mouth four times daily as needed for diarrhea Dicyclomine 20 mg tablet Active 20 mg PO .QID as needed for diarrhea 20 0 December 16, 2024 11:25am ferrous sulfate 325 mg oral tablet (20 [...] take 1 capsule by mouth once daily Fluvoxamine 150 mg capsule,extended release 24hr Active 150 mg PO DAILY May 04, 2024 12:00am depression Start: 10-09-2023 End: 11-11-2023 take 1 tablet [...] take 1 capsule by mouth once daily Omeprazole 40 mg capsule,delayed release(DR/EC) Active 40 mg PO DAILY May 20, 2025 12:00am reflux Start: 06-15-2024 End: 05-20-2025 take 1 capsule by mouth once daily Omeprazole 20 mg capsule,delayed release(DR/EC) Discontinued 20 mg PO DAILY November 26, 2024 1:00am May 20, 2025 9:47am On Hold: Order Changed ondansetron 8 mg oral tablet (20 sources) [...] Fiber (Psyllium-Aspart)) 3 gram Powder In Packet (4 sources) Start: 11-29-2024 Psyllium Husk (Daily Fiber (Psyllium-Aspart)) 3 gram Powder In Packet Active 1 NMA PO THREE TIMES A DAY 54 0 November 29, 2024 1:00am stool Start: 11-29-2024 Psyllium Husk (Daily Fiber (Psyllium-Aspart)) 3 gram Powder In Packet Active 1 NMA PO THREE TIMES A DAY 54 0 November 29, 2024 1:00am sodium bicarbonate 650 mg oral tablet (12 sources) Start: 05-20-2025 take 1 tablet by mouth twice daily Sodium Bicarbonate 650 mg tablet Active 650 mg PO TWICE A DAY May 20, 2025 12:00am Start: 05-18-2025 take 1 tablet by mateo th three times daily Sodium Bicarbonate 650 mg tablet Active 650 mg PO THREE TIMES A DAY May 20, 2025 12:00am kidneys Start: 04-13-2025 End: 04-13-2025 take 1 tablet [...] on above: Take 1 capsule by mo [facility] twice daily as needed for constipation. 0.8 [...] contrast administration guidelines link. polyethylene glycol 3350 874352 mg / potassium chloride 2970 mg / sodium bicarbonate 6740 mg / sodium chloride 5860 mg / sodium sulfate 07738 mg powder for oral solution (15 sources) Osmotic Laxative Start: 04-19-20 peg 3350-Electrolytes (GOLYTELY) 236-22.74-6.74 -5.86 gram suspension Refer to printed prep instructions from your provider. 4000 mL 0 04/19/2022 Suspended Comment on above: Refer to printed pre p instructions from your provider. 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; [...] 05-30-2022 Episodic Genitourinary symptoms and ill-defined conditions (4 sources) History of chronic renal impairment; Translations: [...] current use of drug therapy; Translations: [Other usp (current) drug therapy] 05-15-2024 Episodic Other bone [...] Translations: [Flatulence] 12-21-2024 Episodic Other gastrointestinal disorders (11 sources) High output ileostomy; Translations: [Other specified symptoms and signs involving the digestive system and abdomen] Onset: 5 03-28-2025 Episodic Other gastrointestinal disorders (4 sources) Diarrhea; Translations: [Diarrhea, unspecified] 05-20-2025 Episodic Other gastrointestinal disorders (1 source) Other specified symptoms and signs involving the digestive system and abdomen; Translations: [High output ileostomy (HCC)] Onset: 5 Episodic Other gastrointestinal disorders (3 sources) Diarrhea, unspecified; Translations: [Nausea vomiting and diarrhea] Onset: 5 Episodic Other nutritional; endocrine; and [...] kidney disease-mineral and bone disorder] Onset: 5 Chronic Other screening for suspected conditions (not mental disorders or infectious disease) (3 sources) Other specified abnormal findings of blood chemistry; Translations: [Other nonspecific findings on examination of blood] Onset: 5 04-19-2025 Episodic Peritonitis and intestinal abscess (2 sources) Abdominal abscess; Translations: [Peritoneal abscess] Episodic Phlebitis; thrombophlebitis and thromboembolism (20 sources) Portal vein thrombosis; Translations: [Portal vein thrombosis] Onset: 2 06-05-2022 Episodic Residual codes; unclassified (20 sources) Obstructive sleep apnea syndrome; Translations: [Obstructive sleep apnea (adult) (pediatric)] Onset: 6 09-25-2021 Chronic Residual codes; unclassified (3 sources) Edema; Translations: [Edema, unspecified] 04-12-2025 Episodic Residual codes; unclassified (12 sources) Bilateral lower limb edema; Translations: [Localized edema] Onset: 5 04-13-2025 Episodic Residual codes; unclassified (2 sources) Localized edema; Translations: [Bilateral lower extremity edema] Onset: 5 Episodic Residual codes; unclassified (1 source) Edema, unspecified; Translations: [Edema, unspecified] Onset: 5 Episodic Secondary malignancies (9 sources) Pseudomyxoma peritonei; 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 Skin and subcutaneous tissue infections (20 sources) Abscess; Translations: [Cellulitis, unspecified] Onset: 9 Resolved: 5 01-25-2015 Episodic Unclassified (4 sources) as scheduled Unclassified (1 source) Elevated brain natriuretic peptide (BNP) level 04-19-2025 Unclassified (2 sources) Acidosis, unspecified; Translations: [Acidosis, unspecified] Onset: 5 Past or Other Problems Problem Classification Problem Date Documented Da te Episodic/Chronic Acute posthemorrhagic anemia (20 sources) Acute posthemorrhagic [...] Onset: 02-18-2006 02-18-2006 Episodic Nausea and vomiting (20 sources) Nausea, vomiting and diarrhea; Translations: [Nausea with vomiting, unspecified] Onset: 11-30-2024 12-04-2024 Episodic Neoplasms of unspecified nature or uncertain behavior (20 sources) Neoplasm of appendix; 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] Onset: 05-04-2022 05-04-2022 Episodic Other aftercare (1 source) Other usp (current) drug therapy; Translations: [Encounter for long-term current use of medication] Onset: 12-12-2024 Episodic Other disorders of stomach and duodenum (20 sources) External gastric fistula; 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] Onset: 09-26-2022 Episodic Other gastrointestinal disorders (20 sources) Finding of abdominopelvic segment of trunk; Translations: [Intra-abdominal and pelvic swelling, mass and lump, unspecified site] Onset: 01-23-2023 Episodic Other nervous system disorders (20 sources) [...] pancreas] Onset: 06-06-2022 Resolved: 06-27-2022 06-06-2022 Episodic Results Test Name Value Interpretation Reference Range Facility Basic Metabolic Profile (BMP )on 05-25-2025 BUN Normal 4-19 [facility] Comment on above: Result Comment: Canc elled via OM: Order cancelled - Patient discharged Performed By: #### L 100.0100, L500.2500 ####[facility] [id number] [facility] [address] BUN/CRE Normal 10-20 [facility] Comment on above: Result Comment: Canc elled via OM: Order cancelled - Patient discharged Performed By: #### L 100.0100, L500.2500 ####[facility] [address] [facility] [address] Calcium Normal 7.6-11.0 [facility] Comment on above: Result Comment: Canc elled via OM: Order cancelled - Patient discharged Performed By: #### L 100.0100, L500.2500 ####[facility] [address] [place], [address] CL Normal 98-108 [facility] Comment on above: Result Comment: Canc elled via OM: Order cancelled - Patient discharged Performed By: #### L 100.0100, L500.2500 ####[facility] [address] [facility] [address] CO2 Normal 21.0-32.0 [facility] Comment on above: Result Comment: Canc elled via OM: Order cancelled - Patient discharged Performed By: #### L 100.0100, L500.2500 ####[facility] [address] [place], [address] CREAT,SERUM Normal 0.70-1.20 [facility] Comment on above: Result Comment: Canc elled via OM: Order cancelled - Patient discharged Performed By: #### L 100.0100, L500.2500 ####[facility] [address] [place], [address] eGFR Normal >60 [facility] Comment on above: Result Comment: Canc elled via OM: Order cancelled - Patient discharged Performed By: #### L 100.0100, L500.2500 ####[facility] [address] [place], [address] GAP Normal 5-15 [facility] Comment on above: Result Comment: Canc elled via OM: Order cancelled - Patient discharged Performed By: #### L 100.0100, L500.2500 ####[facility] [address] [place], [address] GLU Normal 70-99 [facility] Comment on above: Result Comment: Canc elled via OM: Order cancelled - Patient discharged Performed By: #### L 100.0100, L500.2500 ####[facility] [address] [place], [address] Potassium Normal 3.3-5.1 [facility] Comment on above: Result Comment: Canc elled via OM: Order cancelled - Patient discharged Performed By: #### L 100.0100, L500.2500 ####[facility] [address] [place], [address] Basic Metabolic Profile (BMP) Normal 133-145 [facility] Comment on above: Result Comment: Canc elled via OM: Order cancelled - Patient discharged Performed By: #### L 100.0100, L500.2500 ####[facility] [address] [place], [address] CBC W/Diff, Automatedon 08-2 Absolute Neut Normal 2.0-7.7 [facility] Comment on above: Result Comment: Canc elled via OM: Order cancelled - Patient discharged Performed By: #### L 100.0100, L500.2500 ####[facility] [address] [place], [address] HCT Normal 40-54 [facility] Comment on above: Result Comment: Canc elled via OM: Order cancelled - Patient discharged Performed By: #### L 100.0100, L500.2500 ####[facility] [address] [place], [address] HGB Normal 13.0-16.5 [facility] Comment on above: Result Comment: Canc elled via OM: Order cancelled - Patient discharged Performed By: #### L 100.0100, L500.2500 ####[facility] [address] [place], [address] MCH Normal 27.0-32.0 [facility] Comment on above: Result Comment: Canc elled via OM: Order cancelled - Patient discharged Performed By: #### L 100.0100, L500.2500 ####[facility] [address] [place], [address] MCHC Normal 32-36 [facility] Comment on above: Result Comment: Canc elled via OM: Order cancelled - Patient discharged Performed By: #### L 100.0100, L500.2500 ####[facility] [address] [place], [address] MCV Normal 80-94 [facility] Comment on above: Result Comment: Canc elled via OM: Order cancelled - Patient discharged Performed By: #### L 100.0100, L500.2500 ####[facility] [address] [place], [address] NEUT% Normal 47-70 [facility] Comment on above: Result Comment: Canc elled via OM: Order cancelled - Patient discharged Performed By: #### L 100.0100, L500.2500 ####[facility] [address] [place], [address] PLT Normal 150-450 [facility] Comment on above: Result Comment: Canc elled via OM: Order cancelled - Patient discharged Performed By: #### L 100.0100, L500.2500 ####[facility] [address] [place], [address] RBC Normal 4.6-6.2 [facility] Comment on above: Result Comment: Canc elled via OM: Order cancelled - Patient discharged Performed By: #### L 100.0100, L500.2500 ####[facility] [address] [place], [address] RDW CV Normal 11.6-14.6 [facility] Comment on above: Result Comment: Canc elled via OM: Order cancelled - Patient discharged Performed By: #### L 100.0100, L500.2500 ####[facility] [address] [place], [address] RDW SD Normal 35.1-43.9 [facility] Comment on above: Result Comment: Canc elled via OM: Order cancelled - Patient discharged Performed By: #### L 100.0100, L500.2500 ####[facility] [address] [place], [address] WBC Normal 4.4-11.0 [facility] Comment on above: Result Comment: Canc elled via OM: Order cancelled - Patient discharged Performed By: #### L 100.0100, L500.2500 ####[facility] [address] [place], [address] Basic Metabolic Profile (BMP )on 05-24-2025 BUN Normal 4-19 [facility] Comment on above: Result Comment: Canc elled via OM: Order cancelled - Patient discharged Performed By: #### L 100.0100 #### [facility] [address] [place], [address] BUN/CRE Normal 10-20 [facility] Comment on above: Result Comment: Canc elled via OM: Order cancelled - Patient discharged Performed By: #### L 100.0100 #### [facility] [address] [place], [address] Calcium Normal 7.6-11.0 [facility] Comment on above: Result Comment: Canc elled via OM: Order cancelled - Patient discharged Performed By: #### L 100.0100 #### [facility] [address] [place], [address] CL Normal 98-108 [facility] Comment on above: Result Comment: Canc elled via OM: Order cancelled - Patient discharged Performed By: #### L 100.0100 #### [facility] [address] [place], [address] CO2 Normal 21.0-32.0 [facility] Comment on above: Result Comment: Canc elled via OM: Order cancelled - Patient discharged Performed By: #### L 100.0100 #### [facility] [address] [place], [address] CREAT,SERUM Normal 0.70-1.20 [facility] Comment on above: Result Comment: Canc elled via OM: Order cancelled - Patient discharged Performed By: #### L 100.0100 #### [facility] [address] [place], [address] eGFR Normal >60 [facility] Comment on above: Result Comment: Canc elled via OM: Order cancelled - Patient discharged Performed By: #### L 100.0100 #### [facility] [address] [place], [address] GAP Normal 5-15 [facility] Comment on above: Result Comment: Canc elled via OM: Order cancelled - Patient discharged Performed By: #### L 100.0100 #### [facility] [address] [place], [address] GLU Normal 70-99 [facility] Comment on above: Result Comment: Canc elled via OM: Order cancelled - Patient discharged Performed By: #### L 100.0100 #### [facility] [address] [place], [address] Potassium Normal 3.3-5.1 [facility] Comment on above: Result Comment: Canc elled via OM: Order cancelled - Patient discharged Performed By: #### L 100.0100 #### [facility] [address] [place], [address] Basic Metabolic Profile (BMP) Normal 133-145 [facility] Comment on above: Result Comment: Canc elled via OM: Order cancelled - Patient discharged Performed By: #### L 100.0100 #### [facility] [address] [place], [address] CBC W/Diff, Automatedon 08-2 Absolute Neut Normal 2.0-7.7 [facility] Comment on above: Result Comment: Canc elled via OM: Order cancelled - Patient discharged Performed By: #### L 100.0100 #### [facility] [address] [place], [address] HCT Normal 40-54 [facility] Comment on above: Result Comment: Canc elled via OM: Order cancelled - Patient discharged Performed By: #### L 100.0100 #### [facility] [address] [place], [address] HGB Normal 13.0-16.5 [facility] Comment on above: Result Comment: Canc elled via OM: Order cancelled - Patient discharged Performed By: #### L 100.0100 #### [facility] [address] [place], [address] MCH Normal 27.0-32.0 [facility] Comment on above: Result Comment: Canc elled via OM: Order cancelled - Patient discharged Performed By: #### L 100.0100 #### [facility] [address] [place], [address] MCHC Normal 32-36 [facility] Comment on above: Result Comment: Canc elled via OM: Order cancelled - Patient discharged Performed By: #### L 100.0100 #### [facility] [address] [place], [address] MCV Normal 80-94 [facility] Comment on above: Result Comment: Canc elled via OM: Order cancelled - Patient discharged Performed By: #### L 100.0100 #### [facility] [address] [place], [address] NEUT% Normal 47-70 [facility] Comment on above: Result Comment: Canc elled via OM: Order cancelled - Patient discharged Performed By: #### L 100.0100 #### [facility] [address] [place], [address] PLT Normal 150-450 [facility] Comment on above: Result Comment: Canc elled via OM: Order cancelled - Patient discharged Performed By: #### L 100.0100 #### [facility] [address] [place], [address] RBC Normal 4.6-6.2 [facility] Comment on above: Result Comment: Canc elled via OM: Order cancelled - Patient discharged Performed By: #### L 100.0100 #### [facility] [address] [place], [address] RDW CV Normal 11.6-14.6 [facility] Comment on above: Result Comment: Canc elled via OM: Order cancelled - Patient discharged Performed By: #### L 100.0100 #### [facility] [address] [place], [address] RDW SD Normal 35.1-43.9 [facility] Comment on above: Result Comment: Canc elled via OM: Order cancelled - Patient discharged Performed By: #### L 100.0100 #### [facility] [address] [place], [address] WBC Normal 4.4-11.0 [facility] Comment on above: Result Comment: Canc elled via OM: Order cancelled - Patient discharged Performed By: #### L 100.0100 #### [facility] [address] [place], [address] CBC W/Diff, Automatedon 08-2 Absolute Neut Normal 2.0-7.7 [facility] Comment on above: Result Comment: Canc elled via OM: Order cancelled - Patient discharged Performed By: #### L 100.0100 #### [facility] [address] [place], [address] HCT Normal 40-54 [facility] Comment on above: Result Comment: Canc elled via OM: Order cancelled - Patient discharged Performed By: #### L 100.0100 #### [facility] [address] [place], [address] HGB Normal 13.0-16.5 [facility] Comment on above: Result Comment: Canc elled via OM: Order cancelled - Patient discharged Performed By: #### L 100.0100 #### [facility] [address] [place], [address] MCH Normal 27.0-32.0 [facility] Comment on above: Result Comment: Canc elled via OM: Order cancelled - Patient discharged Performed By: #### L 100.0100 #### [facility] [address] [place], [address] MCHC Normal 32-36 [facility] Comment on above: Result Comment: Canc elled via OM: Order cancelled - Patient discharged Performed By: #### L 100.0100 #### [facility] [address] [place], [address] MCV Normal 80-94 [facility] Comment on above: Result Comment: Canc elled via OM: Order cancelled - Patient discharged Performed By: #### L 100.0100 #### [facility] [address] [place], [address] NEUT% Normal 47-70 [facility] Comment on above: Result Comment: Canc elled via OM: Order cancelled - Patient discharged Performed By: #### L 100.0100 #### [facility] [address] [place], [address] PLT Normal 150-450 [facility] Comment on above: Result Comment: Canc elled via OM: Order cancelled - Patient discharged Performed By: #### L 100.0100 #### [facility] [address] [place], [address] RBC Normal 4.6-6.2 [facility] Comment on above: Result Comment: Canc elled via OM: Order cancelled - Patient discharged Performed By: #### L 100.0100 #### [facility] [address] [place], [address] RDW CV Normal 11.6-14.6 [facility] Comment on above: Result Comment: Canc elled via OM: Order cancelled - Patient discharged Performed By: #### L 100.0100 #### [facility] [address] [place], [address] RDW SD Normal 35.1-43.9 [facility] Comment on above: Result Comment: Canc elled via OM: Order cancelled - Patient discharged Performed By: #### L 100.0100 #### [facility] [address] [place], [address] WBC Normal 4.4-11.0 [facility] Comment on above: Result Comment: Canc elled via OM: Order cancelled - Patient discharged Performed By: #### L 100.0100 #### [facility] [address] [place], [address] Absolute lymphocyte countOrd ered By: Hamzah Alvarez on 05-22-2025 Lymphocytes Auto (Unsp spec) [#/Vol] 0.96 10*3/uL 0.83-4.51 [facility] Absolute neutrophil countOrd ered By: Hamzah Alvarez on 05-22-2025 Neutrophils (Bld) [#/Vol] 5.5 10*3/uL 2.0-7.7 [facility] Anion gap in Serum or Plasma Ordered By: Hamzah Alvarez on 05-22-2025 Anion gap [Moles/Vol] 15 mmol/L 5-15 [facility] Automated blood erythrocyte countOrdered By: Hamzah Alvarez on 05-22-2025 RBC (Bld) [#/Vol] 2.98 10*6/uL Low 4.6-6.2 [facility] Comment on above: Performed By: #### L 500.2500, L100.0100 #### [facility] [address] [place], [address] Automated blood hematocrit ( percentage)Ordered By: Hamzah Alvarez on 05-22-2025 Hematocrit (Bld) [Volume fraction] 26.5 % Low 40-54 [facility] Comment on above: Performed By: #### L 500.2500, L100.0100 #### [facility] [address] [place], [address] Automated lymphocyte count a s percentage of total leukocytesOrdered By: Hamzah Alvarez on 05-22-2025 Lymphocytes/100 WBC Auto (Unsp spec) 11.4 % Low 19-41 [facility] BUN/creatinine ratioOrdered By: Hamzah Alvarez on 05-22-2025 Urea nitrogen/Creatinine [Mass ratio] 34.0 mg/mg High 10-20 [facility] Basic Metabolic Profile (BMP )on 05-22-2025 BUN/CRE 34.0 RATIO High 10- [facility] Comment on above: Performed By: #### L 500.2500, L100.0100 ####[facility] [id number] [place], [address] Calcium [Mass/Vol] 8.9 mg/dL Normal 7.6-11.0 [facility] Comment on above: Performed By: #### L 500.2500, L100.0100 ####[facility] [id number] [place], [address] Chloride [Moles/Vol] 98 mmol/L Normal 98-108 [facility] Comment on above: Performed By: #### L 500.2500, L100.0100 ####[facility] [id number] [place], [address] CO2 [Moles/Vol] 18.5 mmol/L Low 21.0-32.0 [facility] Comment on above: Performed By: #### L 500.2500, L100.0100 ####[facility] [id number] [place], [address] Creatinine [Mass/Vol] 2.32 mg/dL High 0.70-1.20 [facility] Comment on above: Performed By: #### L 500.2500, L100.0100 ####[facility] [address] [place], [address] ECRCL 41.61 ml/min Low 50-250 [facility] Comment on above: Performed By: #### L 500.2500, L100.0100 ####[facility] [id number] [place], [address] GAP 15 Normal 5-15 [facility] Comment on above: Performed By: #### L 500.2500, L100.0100 ####[facility] [id number] [place], [address] GFR/1.73 sq M.predicted among non-blacks MDRD (S/P/Bld) [Vol rate/Area] 33 mL/min/{1.73_m2} Low >60 [facility] Comment on above: Result Comment: mL/m in/1.73m2 CKD-EPI Creatinine Equation (2020) Performed By: #### L 500.2500, L100.0100 ####[facility] [address] [place], [address] Glucose [Mass/Vol] 130 mg/dL High 70-99 [facility] Comment on above: Performed By: #### L 500.2500, L100.0100 ####[facility] [id number] [place], [address] Potassium [Moles/Vol] 3.2 mmol/L Low 3.3-5.1 [facility] Comment on above: Result Comment: Hemo lysis present, Results??could be affected. ?? Performed By: #### L 500.2500, L100.0100 ####[facility] [address] [place], [address] Sodium [Moles/Vol] 132 mmol/L Low 133-145 [facility] Comment on above: Performed By: #### L 500.2500, L100.0100 ####[facility] [id number] [place], [address] Urea nitrogen [Mass/Vol] 79 mg/dL High 4-19 [facility] Comment on above: Performed By: #### L 500.2500, L100.0100 ####[facility] [id number] [place], [address] Basophil percentageOrdered B y: Hamzah Alvarez on 05-22-2025 Basophils/100 WBC (Bld) 0.2 % Normal 0-1 [facility] Comment on above: Performed By: #### L 500.2500, L100.0100 #### [facility] [address] [place], [address] CBC W/Diff, Automatedon 05-01 Absolute Lymph 0.96 X10 3/uL Normal 0.83-4.51 [facility] Comment on above: Performed By: #### L 500.2500, L100.0100 #### [facility] [address] [place], [address] Absolute Neut 5.5 X10 3/uL Normal 2.0-7.7 [facility] Comment on above: Performed By: #### L 500.2500, L100.0100 #### [facility] [address] [place], [address] IG% 0.500 Normal 0.0-0.9 [facility] Comment on above: Result Comment: IG% - Immature Granulocytes (promyelocytes, myelocytes and metamyelocytes) > 1% indicates that a LEFT SHIFT is Present. Performed By: #### L 500.2500, L100.0100 #### [facility] [address] [place], [address] Lymphocytes/100 WBC (Bld) 11.4 % Low 19-41 [facility] Comment on above: Performed By: #### L 500.2500, L100.0100 #### [facility] [address] [place], [address] Nucleated RBC (Bld) [#/Vol] 0 10*3/uL Normal 0-5 [facility] Comment on above: Performed By: #### L 500.2500, L100.0100 #### [facility] [address] [place], [address] RDW SD 43.1 fl Normal 35.1-43.9 [facility] Comment on above: Performed By: #### L 500.2500, L100.0100 #### [facility] [address] [place], [address] Carbon dioxide, total [Moles /volume] in Central venous bloodOrdered By: Hamzah Alvarez on 05-22-2025 CO2 [Moles/Vol] 18.5 mmol/L Low 21.0-32.0 [facility] Chloride assayOrdered By: Michael Alvarez on 05-22-2025 Chloride [Moles/Vol] 98 mmol/L 98-108 [facility] Eosinophil percentageOrdered By: Hamzah Alvarez on 05-22-2025 Eosinophils/100 WBC (Bld) 1.5 % Normal 0-5 [facility] Comment on above: Performed By: #### L 500.2500, L100.0100 #### [facility] [address] [place], [address] Erythrocyte distribution wid th ratioOrdered By: Hamzah Alvarez on 05-22-2025 Erythrocyte distribution width (RBC) [Ratio] 13.3 % Normal 11.6-14.6 [facility] Comment on above: Performed By: #### L 500.2500, L100.0100 #### [facility] [address] [place], [address] Erythrocyte distribution wid th standard deviationOrdered By: Hamzah Alvarez on 05-22-2025 Erythrocyte distribution width (RBC) [Ratio] 43.1 fl 35.1-43.9 [facility] Glomerular filtration rate ( GFR) estimation/1.73 sq m using serum, plasma, or whole bOrdered By: Hamzah Alvarez on 05-22-2025 GFR/1.73 sq M.predicted among non-blacks MDRD (S/P/Bld) [Vol rate/Area] 33 mL/min/{1.73_m2} Low >60 [facility] Comment on above: mL/min/1.73m2 CKD-EP I Creatinine Equation (2020) Hemoglobin measurementOrdere d By: Hamzah Alvarez on 05-22-2025 Hemoglobin (Bld) [Mass/Vol] 8.8 g/dL Low 13.0-16.5 [facility] Comment on above: Performed By: #### L 500.2500, L100.0100 #### [facility] [address] [place], [address] Immature granulocytes/100 WB C Auto (Bld)Ordered By: Hamzah Alvarez on 05-22-2025 Immature granulocytes/100 WBC (Bld) 0.500 % 0.0-0.9 [facility] Comment on above: IG% - Immature Granu locytes (promyelocytes, myelocytes and metamyelocytes) > 1% indicates that a LEFT SHIFT is Present. MCV (mean corpuscular volume ) determinationOrdered By: Hamzah Alvarez on 05-22-2025 MCV (RBC) [Entitic vol] 88.9 fL Normal 80-94 [facility] Comment on above: Performed By: #### L 500.2500, L100.0100 #### [facility] [address] [facility] [place], [address] Magnesiumon 05-22-2025 Magnesium [Mass/Vol] 1.6 mg/dL Normal 1.5-2.2 [facility] Comment on above: Performed By: #### L 100.0100 #### [facility] [address] [place], [address] Magnesium measurement (mass/ volume)Ordered By: Hamzah Alvarez on 05-22-2025 Magnesium (Unsp spec) [Mass/Vol] 1.6 mg/dL 1.5-2.2 [facility] Mean corpuscular hemoglobin (MCH) determinationOrdered By: Hamzah Alvarez on 05-22-2025 MCH (RBC) [Entitic mass] 29.5 pg Normal 27.0-32.0 [facility] Comment on above: Performed By: #### L 500.2500, L100.0100 #### [facility] [address] [place], [address] Mean corpuscular hemoglobin concentration (MCHC) determinationOrdered By: Hamzah Alvarez on 05-22-2025 MCHC (RBC) [Mass/Vol] 33.2 g/dL Normal 32-36 [facility] Comment on above: Performed By: #### L 500.2500, L100.0100 #### [facility] [address] [place], [address] Mean platelet volume determi nationOrdered By: Hamzah Alvarez on 05-22-2025 Platelet mean volume (Bld) [Entitic vol] 8.8 fL Normal 6.2-12.0 [facility] Comment on above: Performed By: #### L 500.2500, L100.0100 #### [facility] [address] [place], [address] Monocyte percentageOrdered B y: Hamzah Alvarez on 05-22-2025 Monocytes/100 WBC (Bld) 21.6 % High 0-10 [facility] Comment on above: Performed By: #### L 500.2500, L100.0100 #### [facility] [address] [place], [address] Neutrophil percentageOrdered By: Hamzah Alvarez on 05-22-2025 Neutrophils/100 WBC (Bld) 64.8 % Normal 47-70 [facility] Comment on above: Performed By: #### L 500.2500, L100.0100 #### [facility] [address] [place], [address] Nucleated red blood cell per centageOrdered By: Hamzah Alvarez on 05-22-2025 Nucleated RBC/100 WBC (Bld) [Ratio] 0 % 0-5 [facility] Phosphoruson 05-22-2025 Phosphate [Mass/Vol] 2.5 mg/dL Low 2.7-4.5 [facility] Comment on above: Performed By: #### L 100.0100 #### [facility] [address] [place], [address] Platelet countOrdered By: Michael Alvarez on 05-22-2025 Platelets (Bld) [#/Vol] 386 10*3/uL Normal 150-450 [facility] Comment on above: Performed By: #### L 500.2500, L100.0100 #### [facility] [address] [place], [address] Potassium measurement (mass/ volume)Ordered By: Hamzah Alvarez on 05-22-2025 Potassium (Unsp spec) [Mass/Vol] 3.2 mmol/L Low 3.3-5.1 [facility] Comment on above: Hemolysis present, R esults could be affected. Serum creatinine measurement (mass/volume)Ordered By: Hamzah Alvarez on 05-22-2025 Creatinine [Mass/Vol] 2.32 mg/dL High 0.70-1.20 [facility] Serum glucose measurement (m ass/volume)Ordered By: Hamzah Alvarez on 05-22-2025 Glucose [Mass/Vol] 130 mg/dL High 70-99 [facility] Serum or plasma calcium tran urement (mass/volume)Ordered By: Hamzah Alvarez on 05-22-2025 Calcium [Mass/Vol] 8.9 mg/dL 7.6-11.0 [facility] Serum or plasma urea nitroge n measurement (mass/volume)Ordered By: Hamzah Alvarez on 05-22-2025 Urea nitrogen [Mass/Vol] 79 mg/dL High 4-19 [facility] Sodium levelOrdered By: Pio Alvarez on 05-22-2025 Sodium [Moles/Vol] 132 mmol/L Low 133-145 [facility] White blood cell (WBC) count Ordered By: Hamzah Alvarez on 05-22-2025 WBC (Bld) [#/Vol] 8.4 10*3/uL Normal 4.4-11.0 [facility] Comment on above: Performed By: #### L 500.2500, L100.0100 #### [facility] [address] [place], [address] Basic Metabolic Profile (BMP )on 05-21-2025 BUN/CRE 33.3 RATIO High 10-20 [facility] Comment on above: Performed By: #### L 500.2500, L503.7505, L100.0100 #### [facility] [address] [place], [address] Calcium [Mass/Vol] 8.8 mg/dL Normal 7.6-11.0 [facility] Comment on above: Performed By: #### L 500.2500, L503.7505, L100.0100 #### [facility] [address] [place], [address] Chloride [Moles/Vol] 100 mmol/L Normal 98-108 [facility] Comment on above: Performed By: #### L 500.2500, L503.7505, L100.0100 #### [facility] [address] [place], [address] CO2 [Moles/Vol] 11.7 mmol/L Low 21.0-32.0 [facility] Comment on above: Performed By: #### L 500.2500, [id number], L100.0100 #### [facility] [address] [place], [address] Creatinine [Mass/Vol] 2.72 mg/dL High 0.70-1.20 [facility] Comment on above: Performed By: #### L 500.2500, L503.7505, L100.0100 #### [facility] [address] [place], [address] ECRCL 35.49 ml/min Low 50-250 [facility] Comment on above: Performed By: #### L 500.2500, L503.7505, L100.0100 #### [facility] [address] [place], [address] GAP 17 High 5-15 [facility] Comment on above: Performed By: #### L 500.2500, L503.7505, L100.0100 #### [facility] [address] [place], [address] GFR/1.73 sq M.predicted among non-blacks MDRD (S/P/Bld) [Vol rate/Area] 27 mL/min/{1.73_m2} Low >60 [facility] Comment on above: Result Comment: mL/m in/1.73m2 CKD-EPI Creatinine Equation (2020) Performed By: #### L 500.2500, L503.7505, L100.0100 #### [facility] [address] [place], [address] Glucose [Mass/Vol] 131 mg/dL High 70-99 [facility] Comment on above: Performed By: #### L 500.2500, L503.7505, L100.0100 #### [facility] [address] [place], [address] Potassium [Moles/Vol] 3.9 mmol/L Normal 3.3-5.1 [facility] Comment on above: Performed By: #### L 500.2500, L503.7505, L100.0100 #### [facility] [address] [place], [address] Sodium [Moles/Vol] 129 mmol/L Low 133-145 [facility] Comment on above: Performed By: #### L 500.2500, L503.7505, L100.0100 #### [facility] [address] [place], [address] Urea nitrogen [Mass/Vol] 91 mg/dL High 4-19 [facility] Comment on above: Performed By: #### L 500.2500, L503.7505, L100.0100 #### [facility] [address] [place], [place], [id number] Bedside Glucoseon 05-21-2025 FINGERSTICK GLU 137 mg/dL High 74-106 [facility] Comment on above: Result Comment: SHWETA MARR OF PATIENT CARE PER NURSING PROTOCOL Performed By: #### L 501.080 ####[facility] [id number] [place], [address] CBC W/Diff, Automatedon 05-01 PERLA CELLS 1+ Normal [facility] Comment on above: Performed By: #### L 500.2500, L503.7505, L100.0100 #### [facility] Laboratory [address] [place], [address] Crenated erythrocyte detecti on by light microscopyOrdered By: Hamzah Alvarez on 05-21-2025 Skytop cells LM Ql (Bld) 1+ [facility] Glucose measurement at bedsi deOrdered By: Hamzah Alvarez on 05-21-2025 Glucose [Mass/Vol] 137 mg/dL High 74-106 [facility] Comment on above: MANAGEMENT OF PATIEN T CARE PER NURSING PROTOCOL Magnesiumon 05-21-2025 Magnesium [Mass/Vol] 1.3 mg/dL Low 1.5-2.2 [facility] Comment on above: Performed By: #### L 500.2500, L503.7505, L100.0100 #### [facility] Laboratory [address] [place], [address] Phosphoruson 05-21-2025 Phosphate [Mass/Vol] 4.7 mg/dL High 2.7-4.5 [facility] Comment on above: Performed By: #### L 500.2500, L503.7505, L100.0100 #### [facility] Laboratory [address] [place], [address] Urinalysis, Completeon 05-21 BACTERIA RARE Normal None Seen [facility] Comment on above: Order Comment: WINTER CTOR TO SPECIFY Performed By: #### L 400.0001 ####[facility] [id number] [place], [address] CAST,HYALINE 0-5 SEEN Normal 0-5 [facility] Comment on above: Order Comment: WINTER CTOR TO SPECIFY Performed By: #### L 400.0001 ####[facility] [address] [place], [address] EPI,SQUAMOUS 0 SEEN Normal 0-5 [facility] Comment on above: Order Comment: WINTER CTOR TO SPECIFY Performed By: #### L 400.0001 ####[facility] [address] [place], [address] Mucus Ql (Urine sed) 0 SEEN Normal [facility] Comment on above: Order Comment: WINTER CTOR TO SPECIFY Performed By: #### L 400.0001 ####[facility] [address] [place], [address] RBC 0 SEEN Normal 0-5 [facility] Comment on above: Order Comment: WINTER CTOR TO SPECIFY Performed By: #### L 400.0001 ####[facility] [address] [place], [address] WBC 0 SEEN Normal 0-5 [facility] Comment on above: Order Comment: WINTER CTOR TO SPECIFY Performed By: #### L 400.0001 ####[facility] [address] [place], [address] Absolute lymphocyte countOrd ered By: Primo May on 05-20-2025 Lymphocytes Auto (Unsp spec) [#/Vol] 0.69 10*3/uL Low 0.83-4.51 [facility] Absolute neutrophil countOrd ered By: Primo May on 05-20-2025 Neutrophils (Bld) [#/Vol] 12.9 10*3/uL High 2.0-7.7 [facility] Anion gap in Serum or Plasma Ordered By: Primo May on 05-20-2025 Anion gap [Moles/Vol] 19 mmol/L High 5-15 [facility] Automated lymphocyte count a s percentage of total leukocytesOrdered By: Primo May on 05-20-2025 Lymphocytes/100 WBC Auto (Unsp spec) 4.7 % Low 19-41 [facility] BUN/creatinine ratioOrdered By: Primo May on 05-20-2025 Urea nitrogen/Creatinine [Mass ratio] 27.9 mg/mg High 10-20 [facility] Basic Metabolic Profile (BMP )on 05-20-2025 BUN/CRE 34.3 RATIO High 10-20 [facility] Comment on above: Performed By: #### L 500.2500 ####[facility] [address] [place], [address] Calcium [Mass/Vol] 8.9 mg/dL Normal 7.6-11.0 [facility] Comment on above: Performed By: #### L 500.2500 ####[facility] [address] [place], [address] Chloride [Moles/Vol] 102 mmol/L Normal 98-108 [facility] Comment on above: Performed By: #### L 500.2500 ####[facility] [address] [place], [address] CO2 [Moles/Vol] 6.0 mmol/L Invalid Interpretation Code 21.0-32.0 [facility] Comment on above: Result Comment: Crit ical Result(s) Called at: 1641 by: TIM DESHPANDE TO DEBRA SZYMANSKI??Results read back by same. Performed By: #### L 500.2500 ####[facility] [address] [place], [address] Creatinine [Mass/Vol] 2.87 mg/dL High 0.70-1.20 [facility] Comment on above: Performed By: #### L 500.2500 ####[facility] [address] [place], [address] ECRCL 33.64 ml/min Low 50-250 [facility] Comment on above: Performed By: #### L 500.2500 ####[facility] [address] [place], [address] GAP 19 High 5-15 [facility] Comment on above: Performed By: #### L 500.2500 ####[facility] [address] [place], [address] GFR/1.73 sq M.predicted among non-blacks MDRD (S/P/Bld) [Vol rate/Area] 25 mL/min/{1.73_m2} Low >60 [facility] Comment on above: Result Comment: mL/m in/1.73m2 CKD-EPI Creatinine Equation (2020) Performed By: #### L 500.2500 ####[facility] [address] [place], [address] Glucose [Mass/Vol] 102 mg/dL High 70-99 [facility] Comment on above: Performed By: #### L 500.2500 ####[facility] [address] [place], [address] Potassium [Moles/Vol] 4.8 mmol/L Normal 3.3-5.1 [facility] Comment on above: Result Comment: Hemo lysis present, Results??could be affected. ?? Performed By: #### L 500.2500 ####[facility] [address] [place], [address] Sodium [Moles/Vol] 127 mmol/L Low 133-145 [facility] Comment on above: Performed By: #### L 500.2500 ####[facility] [address] [place], [address] Urea nitrogen [Mass/Vol] 99 mg/dL High 4-19 [facility] Comment on above: Performed By: #### L 500.2500 ####[facility] [address] [place], [address] BUN/CRE 27.9 RATIO High 10-20 [facility] Comment on above: Performed By: #### L 500.2500, L503.7505, L100.0100 #### [facility] Laboratory [address] [place], [address] Calcium [Mass/Vol] 9.0 mg/dL Normal 7.6-11.0 [facility] Comment on above: Performed By: #### L 500.2500, L503.7505, L100.0100 #### [facility] Laboratory [address] [place], [address] Chloride [Moles/Vol] 96 mmol/L Low 98-108 [facility] Comment on above: Performed By: #### L 500.2500, L503.7505, L100.0100 #### [facility] Laboratory [address] [place], [address] CO2 [Moles/Vol] 10.9 mmol/L Low 21.0-32.0 [facility] Comment on above: Performed By: #### L 500.2500, L503.7505, L100.0100 #### [facility] Laboratory [address] [place], [address] Creatinine [Mass/Vol] 3.73 mg/dL High 0.70-1.20 [facility] Comment on above: Performed By: #### L 500.2500, L503.7505, L100.0100 #### [facility] Laboratory [address] [place], [address] ECRCL 25.88 ml/min Low 50-250 [facility] Comment on above: Performed By: #### L 500.2500, L503.7505, L100.0100 #### [facility] Laboratory [address] [place], [address] GAP 19 High 5-15 [facility] Comment on above: Performed By: #### L 500.2500, L503.7505, L100.0100 #### [facility] Laboratory [address] [place], [address] GFR/1.73 sq M.predicted among non-blacks MDRD (S/P/Bld) [Vol rate/Area] 19 mL/min/{1.73_m2} Low >60 [facility] Comment on above: Result Comment: mL/m in/1.73m2 CKD-EPI Creatinine Equation (2020) Performed By: #### L 500.2500, L503.7505, L100.0100 #### [facility] Laboratory [address] [place], [address] Glucose [Mass/Vol] 133 mg/dL High 70-99 [facility] Comment on above: Performed By: #### L 500.2500, L503.7505, L100.0100 #### [facility] Laboratory [address] [place], [address] Potassium [Moles/Vol] 5.2 mmol/L High 3.3-5.1 [facility] Comment on above: Performed By: #### L 500.2500, L503.7505, L100.0100 #### [facility] Laboratory [address] [place], [address] Sodium [Moles/Vol] 126 mmol/L Low 133-145 [facility] Comment on above: Performed By: #### L 500.2500, L503.7505, L100.0100 #### [facility] Laboratory [address] [place], [address] Urea nitrogen [Mass/Vol] 104 mg/dL Invalid Interpretation Code 4-19 [facility] Comment on above: Result Comment: Crit ical Result(s) Called at 0720: by: HUONG LEHMAN. ??Results read back by same. Performed By: #### L 500.2500, L503.7505, L100.0100 #### [facility] Laboratory [address] [place], [address] Basophil percentageOrdered B y: Primo May on 05-20-2025 Basophils/100 WBC (Bld) 0.1 % 0-1 [facility] Bilirubin Test strip Ql (U)O rdered By: Huong Clifford on 05-20-2025 Bilirubin Ql (U) Negative Negative [facility] CBC W/Diff, Automatedon 05-01 Absolute Lymph 0.69 X10 3/uL Low 0.83-4.51 [facility] Comment on above: Performed By: #### L 100.0100 #### [facility] Laboratory [address] [place], [address] Absolute Neut 12.9 X10 3/uL High 2.0-7.7 [facility] Comment on above: Performed By: #### L 100.0100 #### [facility] Laboratory [address] [place], [address] Basophils/100 WBC (Bld) 0.1 % Normal 0-1 [facility] Comment on above: Performed By: #### L 100.0100 #### [facility] Laboratory [address] [place], [address] Eosinophils/100 WBC (Bld) 0.1 % Normal 0-5 [facility] Comment on above: Performed By: #### L 100.0100 #### [facility] Laboratory [address] [place], [address] Erythrocyte distribution width (RBC) [Ratio] 13.6 % Normal 11.6-14.6 [facility] Comment on above: Performed By: #### L 100.0100 #### [facility] Laboratory [address] [place], [address] Hematocrit (Bld) [Volume fraction] 39.5 % Low 40-54 [facility] Comment on above: Performed By: #### L 100.0100 #### [facility] Laboratory [address] [place], [address] Hemoglobin (Bld) [Mass/Vol] 12.6 g/dL Low 13.0-16.5 [facility] Comment on above: Performed By: #### L 100.0100 #### [facility] Laboratory [address] [place], [address] IG% 0.400 Normal 0.0-0.9 [facility] Comment on above: Result Comment: IG% - Immature Granulocytes (promyelocytes, myelocytes and metamyelocytes) > 1% indicates that a LEFT SHIFT is Present. Performed By: #### L 100.0100 #### [facility] Laboratory [address] [place], [address] Lymphocytes/100 WBC (Bld) 4.7 % Low 19-41 [facility] Comment on above: Performed By: #### L 100.0100 #### [facility] Laboratory [address] [place], [address] MCH (RBC) [Entitic mass] 30.1 pg Normal 27.0-32.0 [facility] Comment on above: Performed By: #### L 100.0100 #### [facility] Laboratory [address] [place], [address] MCHC (RBC) [Mass/Vol] 31.9 g/dL Low 32-36 [facility] Comment on above: Performed By: #### L 100.0100 #### [facility] Laboratory [address] [place], [address] MCV (RBC) [Entitic vol] 94.3 fL High 80-94 [facility] Comment on above: Performed By: #### L 100.0100 #### [facility] Laboratory [address] [place], [address] Monocytes/100 WBC (Bld) 7.6 % Normal 0-10 [facility] Comment on above: Performed By: #### L 100.0100 #### [facility] Laboratory [address] [place], [address] Neutrophils/100 WBC (Bld) 87.1 % High 47-70 [facility] Comment on above: Performed By: #### L 100.0100 #### [facility] Laboratory [address] [place], [address] Nucleated RBC (Bld) [#/Vol] 0 10*3/uL Normal 0-5 [facility] Comment on above: Performed By: #### L 100.0100 #### [facility] Laboratory [address] [place], [address] Platelet mean volume (Bld) [Entitic vol] 8.7 fL Normal 6.2-12.0 [facility] Comment on above: Performed By: #### L 100.0100 #### [facility] Laboratory [address] [place], [address] Platelets (Bld) [#/Vol] 523 10*3/uL High 150-450 [facility] Comment on above: Performed By: #### L 100.0100 #### [facility] Laboratory [address] [place], [address] RBC (Bld) [#/Vol] 4.19 10*6/uL Low 4.6-6.2 [facility] Comment on above: Performed By: #### L 100.0100 #### [facility] Laboratory [address] [place], [address] RDW SD 46.9 fl High 35.1-43.9 [facility] Comment on above: Performed By: #### L 100.0100 #### [facility] Laboratory [address] [place], [address] WBC (Bld) [#/Vol] 14.8 10*3/uL High 4.4-11.0 [facility] Comment on above: Performed By: #### L 100.0100 #### [facility] Laboratory [address] [place], [address] Carbon dioxide, total [Moles /volume] in Central venous bloodOrdered By: Primo May on 05-20-2025 CO2 [Moles/Vol] 10.9 mmol/L Low 21.0-32.0 [facility] Chloride assayOrdered By: Kirsten May on 05-20-2025 Chloride [Moles/Vol] 96 mmol/L Low 98-108 [facility] Consultation - Nephrologyon 05-20-2025 Consultation - Nephrology [facility] Medical Records Department [address] [place] [address] Consultation - Nephrology 05/20/25 1442 MR#: [id number] Acct: [id number] Name: RAGHAVENDRA BURROWS Rep #: [id number] : 1970 55 From: Huong Horton [employer] PCP: Dr. Harjeet Bernard MD Status:ADM IN Location: [place] [address] Assessment Plan Assessment/Plan (1) [place] (acute kidney injury): (2) Hyperkalemia: (3) Metabolic acidosis: PLAN: Plan This is a pleasant 55-year-old male with past medical history significant for appendiceal cancer status post appendectomy, splenectomy, colectomy with ileostomy who presented to the emergency room this morning with complaints of feeling fatigued, unwell and noting increased watery stool from his ostomy bag. Patient was admitted for further evaluation and treatment. Nephrology consulted in view of elevated creatinine. Patient is being followed by nephrology out of [facility]. Patient has had a fluctuating serum creatinine this past year. Difficult to determine baseline serum creatinine. April 2024 creatinine 1.3. Patient admitted to the hospital late October to early November for high ostomy output with volume depletion, creatinine ranged at peak 3.0, at best 1.67 mg/dL. March 28, 2025 creatinine 2.91, April 12 creatinine 1.9 and today creatinine 3.7, BUN 104, potassium 5.2, bicarb 10.9. Patient has received 3 L normal saline. Will change IV fluids to LR at 250 mL an hour. Volume status appears hypovolemic. No acute indication for renal replacement therapy, patient is nonoliguric. Will check UA. Patient states recently noted feeling of incomplete bladder emptying therefore we will check renal ultrasound. Further orders forthcoming as hospitalization evolves, thank you for allowing us to participate in care of Mr. Burrows. Assessment and plan reviewed with Dr. Aguilar. HPI Consult Data Date of Consult: 05/20/25 HPI Narrative HPI Narrative: RAGHAVENDRA BURROWS, is a 55 M with past medical history significant for appendiceal cancer status post appendectomy, splenectomy and colectomy with ileostomy roughly 3 years ago who presented to the emergency room this morning with complaints of fatigue and noting increased watery output from his ileostomy. Workup in the emergency room included lab work found to have a creatinine of 3.7, BUN 104, bicarb 10.9 and potassium 5.2. Sodium 126. Patient admitted for further evaluation and treatment. Nephrology consulted in view of elevated creatinine. Patient reports he has seen system designer in [place] through [facility], first appointment was in March and he has upcoming appointment June 19. Patient states he is never required any renal placement therapy. Patient reports he has fluctuating serum creatinine trends secondary to high ostomy output and significant volume depletion. In reviewing past creatinine trends patient has had elevated creatinine since 2023. Patient denies any NSAIDs. Denies dysuria or hematuria. He does state notices urinary frequency and at times feels he does not completely empty his bladder. No new medications. Patient states stool consistency normally like mashed potato consistency but of recent has been liquidy. [facility] Medical History Dehydration Acute kidney injury Cancer of appendix Ileostomy present Acute appendicitis Home Medications ???Medication ???Instructions ???Recorded ???Last Taken ???Type bupropion HCl 150 mg tablet,12 hr 150 mg PO DAILY mood 05/04/24 05:30 History sustained-release fluvoxamine 150 mg 150 mg PO DAILY depression 4 05/19/25 22:45 History capsule,extended release 24 hr ondansetron 8 mg disintegrating 8 mg PO Q8H PRN nausea and 4 Unknown Rx tablet vomiting #20 tabs psyllium husk 3 gram oral powder 1 packet PO TID stool #54 ea 11/2905/19/25 Rx packet (Daily Fiber (psyllium-aspartame)) dicyclomine 20 mg tablet 20 mg PO .QID PRN diarrhea #20 tab s 12/16/24 05/19/25 Rx diphenoxylate-atropine 2.5 2 tab PO Q6H PRN diarrhea #30 tabs 12/16/24 05/19/25 Rx mg-0.025 mg tablet (Lomotil) omeprazole 40 mg capsule,delayed 40 mg PO DAILY reflux 05/20/25 History release sodium bicarbonate 650 mg tablet 650 mg PO TID kidneys 05/20/25 05:30 History Allergy/AdvReac Type Severity Reaction Status Date / Time No Known Allergies Allergy Verified 05/20/25 06:39 Family History Other VTE (venous thromboembolism) Surgical History S/P splenectomy H/O colectomy Social History (Updated 05/20/25 @ 09:25 by Debra Rangel) household members: spouse housing: house pets and animals: Yes Smoking Status: Never smoker ROS ROS Narrative As in (more content not included)... Normal [facility] Emergency Department Summary on 05-20-2025 Emergency Department Summary [facility] Medical Records Department [address] [place] [address] Emergency Department Summary 05/20/25 MR#: [id number] Acct: [id number] Name: RAGHAVENDRA BURROWS Rep #: [id number] : 1970 55 From: Primo May DO PCP: Dr. Harjeet Bernard MD Status:REG ER Location: ED HPI History of Present Illness Chief Complaint: General Illness Informant: patient Narrative Narrative: Patient is a 55-year-old male with past medical history of chronic kidney disease with previous ileostomy. He states that he dehydrates very easily based on his short gut syndrome and ileostomy and will typically receive IV fluids every few weeks from his system designer. He states on Saturday he began with generalized abdominal discomfort with a few bouts of nausea and vomiting. He states since that time he is also had essentially brown water moving through his ileostomy. He states there is been no fevers and he denies any significant abdominal discomfort and he denies any known sick contact. However he is concerned that he is becoming dehydrated and potentially developing acute on chronic kidney injury as this has happened in the past and therefore he comes in for evaluation [facility] Medical History Dehydration Acute kidney injury [...] / Time No Known Allergies Allergy Verified 05/20/25 06:39 Family History Other VTE (venous thromboembolism) Surgical History S/P splenectomy H/O colectomy Social History household members: spouse housing: house Smoking Status: Never smoker ROS ROS ED Constitutional Constitutional ED: Reports other Details: Positive generalized fatigue ; Denies chills or fever(s) Eyes Eyes: Denies change in vision ENT ENT ED: Denies sore throat Cardiovascular Cardiovascular: Denies chest pain Respiratory/Chest Respiratory/Chest: Denies cough or dyspnea Gastrointestinal Gastrointestinal: Reports diarrhea, nausea and vomiting; Denies abdominal pain Genitourinary Genitourinary ED: Denies dysuria Musculoskeletal Musculoskeletal: Denies back pain or myalgias Integumentary Denies rash Neurologic Neurologic: Denies headache(s) Hematologic/Lymphatic Hematologic/Lymphatic: Denies easy bleeding or easy bruising EXAM Physical Exam Const Vital Signs: 05/20/25 06:36 05/20/25 06:39 Temperature 97.7 F L Temperature Source Oral Pulse Rate 103 H Respiratory Rate 18 Respiratory Effort Normal Non-Labored Respiratory Pattern Normal Blood Pressure 118/68 Blood Pressure Mean 84 Pulse Ox 98 Oxygen Delivery Method Room Air Positive well nourished and well developed General Appearance ED: well developed; Negative for pallor HEENT Reports dry mucous membranes HEENT Narrative: Normocephalic atraumatic No tongue or lip swelling no oral lesions no airway edema or compromise; no signs of infection noted in the posterior pharynx Mucous membranes are dry and tacky however Mouth ED: Yes dry mucous membranes Mouth: dry mucous membranes Eyes PERRL and EOMs intact bilaterally General Eye ED: Negative for scleral icterus Neck supple Resp normal respiratory effort and clear to auscultation bilaterally Cardio regular rhythm Rate: tachycardic and other Other Details: Slightly tachycardic rate with regular rhythm Radial and carotid pulses are equal and symmetric GI non-tender, non-distended and no masses GI Narrative: Abdomen is soft and nondistended with hyperactive bowel sounds. Ileostomy is present in the right mid abdomen with essentially brown water within the ost (more content not included)... Normal [facility] Eosinophil percentageOrdered By: Primo May on 05-20-2025 Eosinophils/100 WBC (Bld) 0.1 % 0-5 [facility] Erythrocyte distribution wid th ratioOrdered By: Primo May on 05-20-2025 Erythrocyte distribution width (RBC) [Ratio] 13.6 % 11.6-14.6 [facility] Erythrocyte distribution wid th standard deviationOrdered By: Primo May on 05-20-2025 Erythrocyte distribution width (RBC) [Ratio] 46.9 fl High 35.1-43.9 [facility] Glomerular filtration rate ( GFR) estimation/1.73 sq m using serum, plasma, or whole bOrdered By: Primo May on 05-20-2025 GFR/1.73 sq M.predicted among non-blacks MDRD (S/P/Bld) [Vol rate/Area] 19 mL/min/{1.73_m2} Low >60 [facility] Comment on above: mL/min/1.73m2 CKD-EP I Creatinine Equation (2020) H AND P Exam - [place] 05-20-2025 H&P Exam - Hospitalist [facility] Medical Records Department [address] [place] [address] H P Exam - Hospitalist 05/20/25 0746 MR#: [id number] Acct: [id number] Name: RAGHAVENDRA BURROWS Rep #: [id number] : 1970 55 From: Hamzah Alvarez MD PCP: Dr. Harjeet Bernard MD Status:ADM IN Location: [place] [address] HPI - General General Date of Admission: 05/20/25 Chief Complaint: Fatigue HPI Narrative RAGHAVENDRA BURROWS, is a 55 M with past medical history significant for appendiceal malignancy 3 years prior status post ileostomy who presented to the emergency department with increasing fatigue and generalized weakness. Patient states symptoms started 4 days prior to his admission. Denied any subjective fever no chills however did complain of some nausea and did notice increasing output from his ileostomy. Patient felt he was dehydrated hence the decision to present to the emergency department to be evaluated. Patient was found to have worsening kidney function admitted to a monitored bed for subsequent management [facility] Medical History Dehydration Acute kidney injury Cancer of appendix Ileostomy present Acute appendicitis Home Medications ???Medication ???Instructions ???Recorded ???Last Taken ???Type bupropion HCl 150 mg tablet,12 hr 150 mg PO DAILY mood 05/04/24 05:30 History sustained-release fluvoxamine 150 mg 150 mg PO DAILY depression 4 05/19/25 22:45 History capsule,extended release 24 hr ondansetron 8 mg disintegrating 8 mg PO Q8H PRN nausea and 4 Unknown Rx tablet vomiting #20 tabs psyllium husk 3 gram oral powder 1 packet PO TID stool #54 ea 11/2905/19/25 Rx packet (Daily Fiber (psyllium-aspartame)) dicyclomine 20 mg tablet 20 mg PO .QID PRN diarrhea #20 tab s 12/16/24 05/19/25 Rx diphenoxylate-atropine 2.5 2 tab PO Q6H PRN diarrhea #30 tabs 12/16/24 05/19/25 Rx mg-0.025 mg tablet (Lomotil) omeprazole 40 mg capsule,delayed 40 mg PO DAILY reflux 05/20/25 History release sodium bicarbonate 650 mg tablet 650 mg PO TID kidneys 05/20/25 05:30 History Allergy/AdvReac Type Severity Reaction Status Date / Time No Known Allergies Allergy Verified 05/20/25 06:39 Family History Other VTE (venous thromboembolism) Surgical History S/P splenectomy H/O colectomy Social History (Updated 05/20/25 @ 09:25 by Debra Rangel) household members: spouse housing: house pets and animals: Yes Smoking Status: Never smoker ROS ROS Narrative GENERAL: Generalized weakness and fatigue HEENT: denies headache, sinus congestion, or drainage, dysphagia RESPIRATORY: denies cough, sputum production, CARDIAC: denies chest pain, palpitations, orthopnea, PND GASTROINTESTINAL: Nausea but no vomiting GENITOURINARY: denies dysuria, urgency, frequency, heamaturia EXTREMITY: denies swelling MUSCULOSKELETAL: denies current joint pain or tenderness NEUROLOGIC: denies focal numbness, weakness, tingling HEMATOLOGIC: denies easy bruising and/or hemorrhage INTEGUMENT: denies rashes PSYCHIATRIC: denies suicidal or homicidal ideation Vital Signs Vital Signs Vital Signs: 05/20/25 06:36 05/20/25 06:39 Temperature 97.7 F L Temperature Source Oral Pulse Rate 103 H Respiratory Rate 18 Respiratory Effort Normal Non-Labored Respiratory Pattern Normal Blood Pressure 118/68 Blood Pressure Mean 84 Pulse Ox 98 Oxygen Delivery Method Room Air Weight Weight: 87.5 kg Body Mass Index (BMI) 25.4 Physical Exam Narrative GENERAL: cooperative HEENT: Atraumatic; normocephalic EYES; Anicteric, Normal Conjunctiva NECK; supple, normal thyroid, RESPIRATORY: Diminished to auscultation CARDIOVASCULAR: Regular S1 S2, GI: soft, normoactive bowel sounds, : No Renal angle tenderness; EXTREMITIES: No edema, no clubbing, MUSCULOSKELETAL: no muscle wasting NEURO: Awake; no lateralizing signs. SKIN: No Rash PSYCH; Flat affect Results Lab / Micro Data 05/20/25 06:49 05/20/25 06:49 Labs: Laboratory Results - last 24 hr 05/20/25 06:49: WBC 14.8 H, RBC 4.19 L, Hgb 12.6 L, Hct 39.5 L, MCV 94.3 H, MCH 30.1, MCHC 31.9 L, R DW Std Deviation 46.9 H, RDW Coeff of Dirk 13.6, Plt Count 523 H, MPV 8.7, Immature Gran % (Auto) 0.400, Neut % (Auto) 87.1 H, Lymph % (Auto) 4.7 L, [place] % (Auto) 7.6, Eos % (Auto) 0.1, Baso % (Auto) 0.1, Absolute Neuts (auto) 12.9 H, Absolute Lymphs (auto) 0.69 L, Nucleated RBC % 0, Sodium 126 L, Potassium 5.2 H, Chloride 96 L, Carbon Dioxide 10.9 L, Anion Gap 19 H, BUN 104 H*, Creatinine 3.73 H, Estim Creat Clear Calc 25.88 L, Est GFR (MDRD) Non-Af 19 L, BUN/Creatinine Ratio (more content not included)... Normal [facility] Hematocrit Auto (Bld) [Volum e fraction]Ordered By: Primo May on 05-20-2025 Hematocrit (Bld) [Volume fraction] 39.5 % Low 40-54 [facility] Hemoglobin measurementOrdere d By: Primo May on 05-20-2025 Hemoglobin (Bld) [Mass/Vol] 12.6 g/dL Low 13.0-16.5 [facility] Hyaline casts LM.LPF (Urine sed) [#/Area]Ordered By: Huong Horton on 05-20-2025 Hyaline casts (Urine sed) [#/Area] 0 /[LPF] 0-5 [facility] Immature granulocytes/100 WB C Auto (Bld)Ordered By: Primo May on 05-20-2025 Immature granulocytes/100 WBC (Bld) 0.400 % 0.0-0.9 [facility] Comment on above: IG% - Immature Granu locytes (promyelocytes, myelocytes and metamyelocytes) > 1% indicates that a LEFT SHIFT is Present. Ketones Test strip Ql (U)Ord ered By: Huong Horton on 05-20-2025 Ketones Ql (U) Negative Negative [facility] Kidney and Bladderon 025 Kidney and Bladder [facility] Imaging Services [address] [place] [address] [id number] Kidney and Bladder MR#: [id number] Acct: [id number] Name: RAGHAVENDRA BURROWS Rep #: [id number] : 1970 M 55 From: David Marquez MD PCP: Dr. Harjeet Bernard MD Status: ADM IN Study: Kidney and Bladder Date of Exam: 05/20/25 Exam# [id number] Ordering Dr: Huong Horton [employer] -C PROCEDURE: KIDNEY AND BLADDER 05/20/2025 REASON FOR EXAM: [place] TECHNIQUE: KIDNEY AND BLADDER COMPARISON: CT scan May 04, 2024 FINDINGS: Kidneys: Right kidney measures 11.7 x 5.8 x 6.8 cm, while the left measures 11.0 x 5.9 x 5.4 cm. [place]: Bilateral hydronephrosis is present. Cysts or Masses: None Bladder: No bladder wall thickening seen. Bladder distention is mild. Prevoid bladder volume 784 cc. Empty bladder postvoid. Right ureteral jet not seen. Left jet is normal.. US/Kidney and Bladder IMPRESSION: Mild bilateral hydronephrosis. Reading Location: [id number] CC: OLIVIA Horton; Dr. Harjeet Bernard MD [employer]: Signed Normal [facility] MCV (mean corpuscular volume ) determinationOrdered By: Primo May on 05-20-2025 MCV (RBC) [Entitic vol] 94.3 fL High 80-94 [facility] Magnesiumon 05-20-2025 Magnesium [Mass/Vol] 1.6 mg/dL Normal 1.5-2.2 [facility] Comment on above: Performed By: #### L 500.2500, L503.7505, L100.0100 #### [facility] Laboratory [address] [place], [address] Magnesium measurement (mass/ volume)Ordered By: Primo May on 05-20-2025 Magnesium (Unsp spec) [Mass/Vol] 1.6 mg/dL 1.5-2.2 [facility] Mean corpuscular hemoglobin (MCH) determinationOrdered By: Primo May on 05-20-2025 MCH (RBC) [Entitic mass] 30.1 pg 27.0-32.0 [facility] Mean corpuscular hemoglobin concentration (MCHC) determinationOrdered By: Primo May on 05-20-2025 MCHC (RBC) [Mass/Vol] 31.9 g/dL Low 32-36 [facility] Mean platelet volume determi nationOrdered By: Primo May on 05-20-2025 Platelet mean volume (Bld) [Entitic vol] 8.7 fL 6.2-12.0 [facility] Microscopic analysis of urin e for red blood cells (RBC)Ordered By: Huong Horton on 05-20-2025 Microscopic analysis of urine for red blood cells (RBC) 0 SEEN /hpf 0-5 [facility] Monocyte percentageOrdered B y: Primo May on 05-20-2025 Monocytes/100 WBC (Bld) 7.6 % 0-10 [facility] Mucus LM Ql (Urine sed)Order ed By: Huong Horton on 05-20-2025 Mucus Ql (Urine sed) 0 SEEN /hpf [facility] Neutrophil percentageOrdered By: Primo May on 05-20-2025 Neutrophils/100 WBC (Bld) 87.1 % High 47-70 [facility] Nitrite Test strip Ql (U)Ord ered By: Huong Horton on 05-20-2025 Nitrite Ql (U) Negative Negative [facility] Nucleated red blood cell per centageOrdered By: Primo May on 05-20-2025 Nucleated RBC/100 WBC (Bld) [Ratio] 0 % 0-5 [facility] Phosphoruson 05-20-2025 Phosphate [Mass/Vol] 7.3 mg/dL High 2.7-4.5 [facility] Comment on above: Performed By: #### L 100.0100 #### [facility] Laboratory [address] [place], [address] Platelet countOrdered By: Kirsten May on 05-20-2025 Platelets (Bld) [#/Vol] 523 10*3/uL High 150-450 [facility] Potassium measurement (mass/ volume)Ordered By: Primo May on 05-20-2025 Potassium (Unsp spec) [Mass/Vol] 5.2 mmol/L High 3.3-5.1 [facility] Protein Test strip Ql (U)Ord ered By: Huong Horton on 05-20-2025 Protein Ql (U) 30 mg/dl High Negative [facility] RBC Auto (Bld) [#/Vol]Ordere d By: Primo May on 05-20-2025 RBC (Bld) [#/Vol] 4.19 10*6/uL Low 4.6-6.2 [facility] Serum creatinine measurement (mass/volume)Ordered By: Primo May on 05-20-2025 Creatinine [Mass/Vol] 3.73 mg/dL High 0.70-1.20 [facility] Serum glucose measurement (m ass/volume)Ordered By: Primo May on 05-20-2025 Glucose [Mass/Vol] 133 mg/dL High 70-99 [facility] Serum or plasma calcium tran urement (mass/volume)Ordered By: Primo May on 05-20-2025 Calcium [Mass/Vol] 9.0 mg/dL 7.6-11.0 [facility] Serum or plasma urea nitroge n measurement (mass/volume)Ordered By: Primo May on 05-20-2025 Urea nitrogen [Mass/Vol] 104 mg/dL High 4-19 [facility] Comment on above: Critical Result(s) C alled at 0720: by: HUONG IVY TO DOMINIK. Results read back by same. Sodium levelOrdered By: Arnie May on 05-20-2025 Sodium [Moles/Vol] 126 mmol/L Low 133-145 [facility] Squamous epithelial cells de tection in urine sediment by light microscopyOrdered By: Huong Horton on 05-20-2025 Epithelial cells.squamous LM Ql (Urine sed) 0 SEEN /hpf 0-5 [facility] Urine clarityOrdered By: Gui Horton on 05-20-2025 Clarity (U) Clear Clear [facility] Urine color determinationOrd ered By: Huong Horton on 05-20-2025 Color (U) Yellow Yellow [facility] Urine glucose detectionOrder ed By: Huong Horton on 05-20-2025 Glucose Ql (U) Normal mg/dl Normal [facility] Urine leukocyte esterase det ection by dipstickOrdered By: Huong Horton on 05-20-2025 Leukocyte esterase Test strip Ql (U) Negative Negative [facility] Urine pHOrdered By: Huong Horton on 05-20-2025 pH (U) 6.0 [pH] 5.0 - 8.0 [facility] Urine sediment bacteria coun t by microscopy (number/high power field)Ordered By: Huong Horton on 05-20-2025 Bacteria LM.HPF (Urine sed) [#/Area] RARE /hpf None Seen [facility] Urine specific gravity measu rementOrdered By: Huong Horton on 05-20-2025 Specific gravity (U) [Rel density] 1.020 1.002-1.03 0 [facility] Urine urobilinogen measureme ntOrdered By: Huong Horton on 05-20-2025 Urobilinogen Ql (U) Normal mg/dl Normal [facility] White blood cell (WBC) count Ordered By: Primo Yadira on 05-20-2025 WBC (Bld) [#/Vol] 14.8 10*3/uL High 4.4-11.0 [facility] White blood cell countOrdere d By: Huong Clifford on 05-20-2025 White blood cell count 0 SEEN /hpf 0-5 [facility] CNPNon 05-19-2025 CNPN Telephone (HEMAWS) RAGHAVENDRA BURROWS ([id number]) 1970 M Date Time Provider Department 05/19/25 FANY PARNELL During your visit today, we recorded the following information about you: Rowena May, PEDRO LUIS 05/19/2025 1:15 PM Signed Pt is a 4hr hydration. Please adjust schedule accordingly. S/b scheduled prior to lunch. Thank you! Nayely Friedman 05/19/2025 2:20 PM Signed Done Allergies As of Date: 05/19/2025 (No Known Allergies) Date Reviewed: 05/17/2025 Reviewed by: Zhanna Wagner LPN - Fully Assessed Reason for Visit: Appointment [186] Prescriptions as of 05/19/2025 - sodium bicarbonate 650 mg tablet Take 1 tablet by mouth three times a day. Take 1 tablet by mouth twice a day - CALCIUM ACETATE PO Take by mouth. - diphenoxylate-atropine (LOMOTIL) 2.5-0.025 mg per tablet Take 2 tablets by mouth four times daily for 180 days. - loperamide (IMODIUM) 2 mg cap(s) Take 2 capsules by mouth four times daily. - omeprazole (PRILOSEC) 40 mg capsule Take [...] Take 1 tablet by mouth once daily. Facility-Administered Medications as of 05/19/2025 - NaCl 0.9% iv bolus 1,000 mL Problem List As Of Date 05/19/2025 Noted Resolved AMBROSE on CPAP [G47.33] 02/18/2006 [...] Recurrent dehydration [E86.0] 04/22/2025 Encounter Status:Closed by NAYELY FRIEDMAN on 05/19/25 Normal [facility] Basic metabolic 2000 panelon 05-14-2025 Anion gap [Moles/Vol] 13 mmol/L Normal 05-14 [facility] Comment on above: Order Comment: Speci men Type: BLOOD SPECIMENOrdering Facility: [facility] Address: [address] [place] [address] Performed By: #### 2 4321-2 ####[facility] LABCLIA [id number] [place] [address] [place] Calcium [Mass/Vol] 8.7 mg/dL Normal 8.5-10.2 [facility] Comment on above: Order Comment: Speci men Type: BLOOD SPECIMENOrdering Facility: [facility] Address: [address] [place], [place] [address] Performed By: #### 2 4321-2 ####[facility] LABCLIA [id number] [facility] [address] [address] [address] [place] Chloride [Moles/Vol] 107 mmol/L Normal 98-107 [facility] Comment on above: Order Comment: Speci men Type: BLOOD SPECIMENOrdering Facility: [facility] Address: [address] [place] [address] Performed By: #### 2 4321-2 ####[facility] LABCLIA [id number] [facility] [place] [id number] [place] CO2 [Moles/Vol] 16 mmol/L Low 22-30 [facility] Comment on above: Order Comment: Speci men Type: BLOOD SPECIMENOrdering Facility: [facility] Address: [address] [place] [address] Performed By: #### 2 4321-2 ####[facility] LABCLIA [id number] [facility] [place] [id number] [place] Creatinine [Mass/Vol] 1.54 mg/dL High 0.73-1.22 [facility] Comment on above: Order Comment: Speci men Type: BLOOD SPECIMENOrdering Facility: [facility] Address: [address] [place] [address] Performed By: #### 2 4321-2 ####[facility] LABCLIA [id number] [facility] [place] [id number] [place] eGFRcr SerPlBld CKD-EPI 2020 54 mL/min/1.73m??? Low >=60 [facility] Comment on above: Order Comment: Speci men Type: BLOOD SPECIMENOrdering Facility: [facility] Address: [address] [place] [address] Result Comment: Marlen mated Glomerular Filtration Rate [...] actual GFR. Performed By: #### 2 4321-2 ####[facility] LABIA [id number] [place] [address] [place] Glucose [Mass/Vol] 87 mg/dL Normal 74-99 [facility] Comment on above: Order Comment: Speccain summers Type: BLOOD SPECIMENOrdering Facility: [facility] Address: [address] [place] [address] Result Comment: The [place] Diabetes Association (ADA) provides guidance for cutoff [...] Standards of Medical Care in Diabetes 2016, [place] [employer]. Diabetes Care. 2016.39(Suppl 1). Performed By: #### 2 4321-2 ####[facility] LABIA [id number] [place] [address] [place] Potassium [Moles/Vol] 4.4 mmol/L Normal 3.7-5.1 [facility] Comment on above: Order Comment: Rose summers Type: BLOOD SPECIMENOrdering Facility: [facility] Address: [address] [place] [address] Performed By: #### 2 4321-2 ####[facility] LABIA [id number] [place] [id number] [place] Sodium [Moles/Vol] 136 mmol/L Normal 136-144 [facility] Comment on above: Order Comment: Speci men Type: BLOOD SPECIMENOrdering Facility: [facility] Address: [address] [place] [address] Performed By: #### 2 4321-2 ####[facility] LABCLIA [id number] [place] [id number] [place] Urea nitrogen [Mass/Vol] 28 mg/dL High 9-24 [facility] Comment on above: Order Comment: Speci men Type: BLOOD SPECIMENOrdering Facility: [facility] Address: [address] [place] [address] Performed By: #### 2 4321-2 ####[facility] LABCLIA [id number] [place] [id number] [place] Basic metabolic 2000 panelon 05-07-2025 Anion gap [Moles/Vol] 14 mmol/L Normal 8-15 [facility] Comment on above: Order Comment: Speci men Type: BLOOD SPECIMENOrdering Facility: [facility] Address: [address] [place] [address] Performed By: #### 2 4321-2 ####[facility] LABCLIA [id number] [place] [id number] [place] Calcium [Mass/Vol] 8.2 mg/dL Low 8.5-10.2 [facility] Comment on above: Order Comment: Speci men Type: BLOOD SPECIMENOrdering Facility: [facility] Address: [address] [place], [place] [address] Performed By: #### 2 4321-2 ####[facility] LABCLIA [id number] [place] [id number] [place] Chloride [Moles/Vol] 108 mmol/L High 98-107 [facility] Comment on above: Order Comment: Speci men Type: BLOOD SPECIMENOrdering Facility: [facility] Address: [address] [place] [address] Performed By: #### 2 4321-2 ####[facility] LABCLIA [id number] [address] [address] [place] CO2 [Moles/Vol] 22 mmol/L Normal 22-30 [facility] Comment on above: Order Comment: Speci men Type: BLOOD SPECIMENOrdering Facility: [facility] Address: [address] [place] [address] Performed By: #### 2 4321-2 ####[facility] LABCLIA [id number] [place] [address] [place] Creatinine [Mass/Vol] 1.57 mg/dL High 0.73-1.22 [facility] Comment on above: Order Comment: Speci men Type: BLOOD SPECIMENOrdering Facility: [facility] Address: [address] [place] [address] Performed By: #### 2 4321-2 ####[facility] LABIA [id number] [place] [address] [place] eGFRcr SerPlBld CKD-EPI 2020 52 mL/min/1.73m??? Low >=60 [facility] Comment on above: Order Comment: Speci men Type: BLOOD SPECIMENOrdering Facility: [facility] Address: [address] [place] [address] Result Comment: Marlen mated Glomerular Filtration Rate [...] actual GFR. Performed By: #### 2 4321-2 ####[facility] LABCLIA [id number] [place] [id number] [place] Glucose [Mass/Vol] 85 mg/dL Normal 74-99 [facility] Comment on above: Order Comment: Speci men Type: BLOOD SPECIMENOrdering Facility: [facility] Address: [address] [place] [address] Result Comment: The [place] Diabetes Association (ADA) provides guidance for cutoff [...] Standards of Medical Care in Diabetes 2016, [place] [employer]. Diabetes Care. 2016.39(Suppl 1). Performed By: #### 2 4321-2 ####[facility] LABCLIA [id number] [place] [address] [place] Potassium [Moles/Vol] 4.4 mmol/L Normal 3.7-5.1 [facility] Comment on above: Order Comment: Speci men Type: BLOOD SPECIMENOrdering Facility: [facility] Address: [address] [place] [address] Performed By: #### 2 4321-2 ####[facility] LABCLIA [id number] [place] [id number] [place] Sodium [Moles/Vol] 144 mmol/L Normal 136-144 [facility] Comment on above: Order Comment: Speci men Type: BLOOD SPECIMENOrdering Facility: [facility] Address: [address] [place], [place] [address] Performed By: #### 2 4321-2 ####[facility] LABCLIA [id number] [place] [id number] [place] Urea nitrogen [Mass/Vol] 24 mg/dL Normal 9-24 [facility] Comment on above: Order Comment: Speci men Type: BLOOD SPECIMENOrdering Facility: [facility] Address: [address] [place], [place] [address] Performed By: #### 2 4321-2 ####[facility] LABCLIA [id number] [address] [place] [address] [place] Basic metabolic 2000 panelon 04-30-2025 Anion gap [Moles/Vol] 11 mmol/L Normal 8-15 [facility] Comment on above: Order Comment: Speci men Type: BLOOD SPECIMENOrdering Facility: [facility] Address: [address] [place], [place] [address] Performed By: #### 2 4321-2 ####[facility] LABCLIA [id number] [address] [address] [place] Calcium [Mass/Vol] 7.5 mg/dL Low 8.5-10.2 [facility] Comment on above: Order Comment: Speci men Type: BLOOD SPECIMENOrdering Facility: [facility] Address: [address] [place], [place] [address] Performed By: #### 2 4321-2 ####[facility] LABCLIA [id number] [address] [address] [place] Chloride [Moles/Vol] 107 mmol/L Normal 98-107 [facility] Comment on above: Order Comment: Speci men Type: BLOOD SPECIMENOrdering Facility: [facility] Address: [address] [place], [place] [address] Performed By: #### 2 4321-2 ####[facility] LABCLIA [id number] [address] [address] [place] CO2 [Moles/Vol] 24 mmol/L Normal 22-30 [facility] Comment on above: Order Comment: Speci men Type: BLOOD SPECIMENOrdering Facility: [facility] Address: [address] [place], [place] [address] Performed By: #### 2 4321-2 ####[facility] LABCLIA [id number] [address] [address] [place] Creatinine [Mass/Vol] 1.66 mg/dL High 0.73-1.22 [facility] Comment on above: Order Comment: Rose summers Type: BLOOD SPECIMENOrdering Facility: [facility] Address: [address] [place] [address] Performed By: #### 2 4321-2 ####[facility] LABIA [id number] [facility] [address] [address] [place] eGFRcr SerPlBld CKD-EPI 2020 49 mL/min/1.73m??? Low >=60 [facility] Comment on above: Order Comment: Rose summers Type: BLOOD SPECIMENOrdering Facility: [facility] Address: [address] [place] [address] Result Comment: Marlen mated Glomerular Filtration Rate [...] actual GFR. Performed By: #### 2 4321-2 ####[facility] LABIA [id number] [address] [address] [place] Glucose [Mass/Vol] 89 mg/dL Normal 74-99 [facility] Comment on above: Order Comment: Rose summers Type: BLOOD SPECIMENOrdering Facility: [facility] Address: [address] [place], [place] [address] Result Comment: The [place] Diabetes Association (ADA) provides guidance for cutoff [...] Standards of Medical Care in Diabetes 2016, [place] Diabetes Association. Diabetes Care. 2016.39(Suppl 1). Performed By: #### 2 4321-2 ####[facility] LABCLIA [id number] [place] [address] [place] Potassium [Moles/Vol] 4.5 mmol/L Normal 3.7-5.1 [facility] Comment on above: Order Comment: Speci men Type: BLOOD SPECIMENOrdering Facility: [facility] Address: [address] [place] [address] Performed By: #### 2 4321-2 ####[facility] [id number] [place] [address] [place] Sodium [Moles/Vol] 142 mmol/L Normal 136-144 [facility] Comment on above: Order Comment: Rafaeli melina Type: BLOOD SPECIMENOrdering Facility: [facility] Address: [address] [place] [address] Performed By: #### 2 4321-2 ####[facility] LABIA [id number] [place] [id number] [place] Urea nitrogen [Mass/Vol] 19 mg/dL Normal 9-24 [facility] Comment on above: Order Comment: Speci men Type: BLOOD SPECIMENOrdering Facility: [facility] Address: [address] [place] [address] Performed By: #### 2 4321-2 ####[facility] LABIA [id number] [place] [id number] [place] ECHOon 04-30-2025 Echocardiography Echocardiography Rep ort: Transthoracic Echo [facility] Date of service: 04/30/2025 11:06:22 AM [facility] [employer] Ordering physician: HARJEET D TALAMPAS Exam indication: Hypotension Symptom(s): Edema Technologist: Rowena Drake [facility] Interpreting physician: Geremias Blanco MD PATIENT: Name: MR. RAGHAVENDRA BURROWS : 1970 Age: 55 years Gender: [...] * * * Final * * * [facility] : [id number] Normal [facility] Paula [facility] RAGHAVENDRA BURROWS ([id number]) 1970 M Date Time Provider Department 04/27/25 [...] PCP will be arranging for IV fluids. Shandra Khoury RN 04/28/2025 11:32 AM Signed Attempted [...] Fully Assessed Reason for Visit: Patient Question [1367] Prescriptions as of 04/30/2025 - omeprazole (PRILOSEC) [...] Recurrent dehydration [E86.0] 04/22/2025 Encounter Status:Closed by SHANDRA KHOURY on 04/28/25 [facility] Bora 04-19-2025 CNOV Office Visit (INTMWS ) RAGHAVENDRA BURROWS ([id number]) 1970 M Date Time Provider Department 04/19/25 10:20 AM HARJEET BERNARD INTMWS During your visit today, we recorded the following information about you: Temperature Pulse Respiration Blood pressure 97 degrees 76/minute 16/minute 100/60 Weight 104 kg Harjeet Bernard MD 04/19/2025 11:11 PM Signed This note was created using LinkCloudriter. Subjective Raghavendra Burrows is a 54 year old male. [...] of mild (more content not included)... Normal [facility] Albumin SerPl-mCncon 025 Albumin [Mass/Vol] 3.3 g/dL Low 3.9-4.9 [facility] Comment on above: Order Comment: Speci men Type: BLOOD SPECIMENOrdering Facility: [facility] Address: [address] [place] [address] Performed By: #### 2 731-8, 6, 47812-3, 1751-03 ####[facility] LABCLIA [id number] [place] [address] [place] Basic metabolic 2000 panelon 04-16-2025 Anion gap [Moles/Vol] 14 mmol/L Normal 8-15 [facility] Comment on above: Order Comment: Speci melina Type: BLOOD SPECIMENOrdering Facility: [facility] Address: [address] [place] [address] Performed By: #### 2 731-8, 2143-02, 35371-4, 1751-03 ####[facility] LABCLIA [id number] [place] [id number] [place] Calcium [Mass/Vol] 7.2 mg/dL Low 8.5-10.2 [facility] Comment on above: Order Comment: Speci men Type: BLOOD SPECIMENOrdering Facility: [facility] Address: [address] [place] [address] Performed By: #### 2 731-8, 6, 65806-1, 1751-03 ####[facility] LABCLIA [id number] [place] [id number] [place] Chloride [Moles/Vol] 110 mmol/L High 98-107 [facility] Comment on above: Order Comment: Speci men Type: BLOOD SPECIMENOrdering Facility: [facility] Address: [address] [place] [address] Performed By: #### 2 731-8, 3-6, 85025-7, 1751-03 ####[facility] LABCLIA [id number] [place] [id number] [place] CO2 [Moles/Vol] 19 mmol/L Low 22-30 [facility] Comment on above: Order Comment: Speci men Type: BLOOD SPECIMENOrdering Facility: [facility] Address: [address] [place] [address] Performed By: #### 2 731-8, 3-6, 63997-7, 1751-03 ####[facility] LABIA [id number] [place] [address] [place] Creatinine [Mass/Vol] 2.04 mg/dL High 0.73-1.22 [facility] Comment on above: Order Comment: Speci men Type: BLOOD SPECIMENOrdering Facility: [facility] Address: [address] [place] [address] Performed By: #### 2 731-8, 36, 02066-5, 1751-03 ####[facility] LABIA [id number] [place] [id number] [place] eGFRcr SerPlBld CKD-EPI 2020 38 mL/min/1.73m??? Low >=60 [facility] Comment on above: Order Comment: Speci men Type: BLOOD SPECIMENOrdering Facility: [facility] Address: [address] [place] [address] Result Comment: Marlen mated Glomerular Filtration Rate [...] actual GFR. Performed By: #### 2 731-8, 2143-02, , 1751-03 ####[facility] LABCLIA [id number] [facility] [address] [address] [place] Glucose [Mass/Vol] 89 mg/dL Normal 74-99 [facility] Comment on above: Order Comment: Rose summers Type: BLOOD SPECIMENOrdering Facility: [facility] Address: [address] [place] [address] Result Comment: The [place] Diabetes Association (ADA) provides guidance for cutoff [...] Standards of Medical Care in Diabetes 2016, [place] Diabetes Association. Diabetes Care. 2016.39(Suppl 1). Performed By: #### 2 731-8, 2143-02, , 1751-03 ####[facility] LABCLIA [id number] [facility] [address] [address] [place] Potassium [Moles/Vol] 4.7 mmol/L Normal 3.7-5.1 [facility] Comment on above: Order Comment: Rose summers Type: BLOOD SPECIMENOrdering Facility: [facility] Address: [address] [place] [address] Performed By: #### 2 731-8, 2143-02, , 1751-03 ####[facility] LABCLIA [id number] [facility] [address] [address] [place] Sodium [Moles/Vol] 143 mmol/L Normal 136-144 [facility] Comment on above: Order Comment: Speci men Type: BLOOD SPECIMENOrdering Facility: [facility] Address: [address] [place] [address] Performed By: #### 2 731-8, 2142-6, 10425-8, 1751-03 ####[facility] LABCLIA [id number] [place] [id number] [place] Urea nitrogen [Mass/Vol] 26 mg/dL High 9-24 [facility] Comment on above: Order Comment: Speci men Type: BLOOD SPECIMENOrdering Facility: [facility] Address: [address] [place] [address] Performed By: #### 2 731-8, 6, 04549-3, 1751-03 ####[facility] LABCLIA [id number] [place] [id number] [place] Cortis SerPl-Bobyon 04-16-20 25 Cortisol [Mass/Vol] 5.7 ug/dL Normal 4.8-19.5 [facility] Comment on above: Order Comment: Speci men Type: BLOOD SPECIMENOrdering Facility: [facility] Address: [address] [place] [address] Result Comment: Prov ided reference range is from 6-10 AM sample collection time. Cortisol Reference Range: 6-10 AM = 4.8-19.5 ug/dL, 4-8 PM = 2.5-11.9 ug/dL Performed By: #### 2 731-8, 6, 73878-2, 1751-03 ####[facility] LABCLIA [id number] [address] [address] [place] Hematocrit Auto (Bld) [Volum e fraction]on 04-16-2025 Hematocrit (Bld) [Volume fraction] 26.3 % Low 39.0-51.0 [facility] Comment on above: Order Comment: Speci men Type: BLOOD SPECIMENOrdering Facility: [facility] Address: [address] [place] [address] Performed By: #### 7 18-7, 4544-3 ####[facility] LABIA [id number] [place] [address] [place] Hgb Bld[facility] Hemoglobin (Bld) [Mass/Vol] 8.0 g/dL Low 13.0-17.0 [facility] Comment on above: Order Comment: Speci men Type: BLOOD SPECIMENOrdering Facility: [facility] Address: [address] [place] [address] Performed By: #### 7 18-7, 4544-3 ####[facility] LABIA [id number] [place] [address] [place] NT-proBNP SerPl-[facility]16 Natriuretic peptide.B prohormone N-Terminal [Mass/Vol] 1826 pg/mL High <125 [facility] Comment on above: Order Comment: Speci men Type: BLOOD SPECIMENOrdering Facility: [facility] Address: [address] [place] [address] Performed By: #### 3 084-1, 3016-3, 2777-1, 08372-3 ####[facility] LABIA [id number] [place] [address] [place] Osmolality SerPlon Osmolality [Osmolality] 299 mosm/kg Normal 275-300 [facility] Comment on above: Order Comment: Speci men Type: BLOOD SPECIMENOrdering Facility: [facility] Address: [address] [place] [address] Performed By: #### 2 692-2 ####[facility] LABIA [id number] [place] [address] [place] Osmolality Uron 04-16-2025 Osmolality (U) [Osmolality] 438 mosm/kg Normal 50-1200 [facility] Comment on above: Order Comment: Speci men Type: URINE SPECIMENOrdering Facility: [facility] Address: [address] [place] [address] Performed By: #### 2 695-5 ####[facility] LABIA [id number] [address] [address] [place] [facility] - Parathyrin.intact [Mass/Vol] 46 pg/mL Normal 15-65 [facility] Comment on above: Order Comment: Speci men Type: BLOOD SPECIMENOrdering Facility: [facility] Address: [address] [place] [address] Performed By: #### 2 731-8, 2143-6, 30668-0, 1751-7 ####[facility] LABIA [id number] [place] [address] [place] Phosphate SerPl-ncon 04-16 Phosphate [Mass/Vol] 3.8 mg/dL Normal 2.7-4.8 [facility] Comment on above: Order Comment: Speci men Type: BLOOD SPECIMENOrdering Facility: [facility] Address: [address] [place] [address] Performed By: #### 3 084-1, 3016-3, 2777-1, 61422-7 ####[facility] [id number] [place] [address] [place] Prot/Creat Uron 04-16-2025 Protein/Creatinine (U) [Mass ratio] 0.20 mg/mg High <0.15 [facility] Comment on above: Order Comment: Speci men Type: URINE SPECIMENOrdering Facility: [facility] Address: [address] [place] [address] Result Comment: Adul t Proteinuria Categories: <0.15 mg/mg is considered normal to mildly increased 0.15 - 0.50 mg/mg is considered moderately increased >0.50 mg/mg is considered severely increased KDIGO. (2013). KDIGO 2012 Clinical Practice Guideline for the Evaluation and Management of Chronic Kidney Disease. Official Journal of the International Society of Nephrology, 3(1), 1-150. Performed By: #### 3 5678-2, 2890-2 ####[facility] LABIA [id number] [address] [address] [place] Protein/Creatinine (U) [Mass ratio]on 04-16-2025 Creatinine (U) [Mass/Vol] 95.8 mg/dL Normal 20.0-300.0 [facility] Comment on above: Order Comment: Speci men Type: URINE SPECIMENOrdering Facility: [facility] Address: [address] [place] [address] Performed By: #### 3 5678-2, 2889-2 ####[facility] [id number] [place] [id number] [place] Protein (U) [Mass/Vol] 19 mg/dL Normal 0-20 [facility] Comment on above: Order Comment: Speci men Type: URINE SPECIMENOrdering Facility: [facility] Address: [address] [place] [address] Performed By: #### 3 5678-2, 2889-2 ####[facility] [id number] [place] [id number] [place] Sodium ?Tm Ur-sCncon 025 Sodium Unsp time (U) [Moles/Vol] 22 mmol/L Normal 14-216 [facility] Comment on above: Order Comment: Speci men Type: URINE SPECIMENOrdering Facility: [facility] Address: [address] [place] [address] Performed By: #### 3 5678-2, 289-2 ####[facility] [id number] [place] [id number] [place] TSH SerPl-aCncon 04-16-2025 TSH Qn 2.110 m[IU]/L Normal 0.270-4.20 0 [facility] Comment on above: Order Comment: Speci men Type: BLOOD SPECIMENOrdering Facility: [facility] Address: [address] [place] [address] Performed By: #### 3 084-1, 3016-3, 2777-1, 72662-4 ####[facility] LABCLIA [id number] [address], [address] [place] Urate SerPl-mCncon Urate [Mass/Vol] 6.0 mg/dL Normal 4.0-8.1 [facility] Comment on above: Order Comment: Speci men Type: BLOOD SPECIMENOrdering Facility: [facility] Address: [address] [place] [address] Performed By: #### 3 084-1, 3016-3, 2777-1, 40192-2 ####[facility] LABCLIA [id number] [place] [address] [place] Urinalysis complete panel (U )on 04-16-2025 Bacteria LM.HPF (Urine sed) [#/Area] Negative Normal Negative [facility] Comment on above: Order Comment: Speci men Type: URINE SPECIMENOrdering Facility: [facility] Address: [address] [place] [address] Performed By: #### 2 4356-8 ####[facility] LABCLIA [id number] [place] [address] [place] Bilirubin Ql (U) Negative Normal Negative [facility] Comment on above: Order Comment: Speci men Type: URINE SPECIMENOrdering Facility: [facility] Address: [address] [place] [address] Performed By: #### 2 4356-8 ####[facility] LABCLIA [id number] [address] [place] [address] [place] Clarity (Unsp spec) Clear Normal Clear [facility] Comment on above: Order Comment: Speci men Type: URINE SPECIMENOrdering Facility: [facility] Address: [address] [place] [address] Performed By: #### 2 4356-8 ####[facility] LABCLIA [id number] [address], [place] [address] [place] Color (U) Yellow Normal Yellow [facility] Comment on above: Order Comment: Speci men Type: URINE SPECIMENOrdering Facility: [facility] Address: [address] [place] [address] Performed By: #### 2 4356-8 ####[facility] LABCLIA [id number] [place] [address] [place] Epithelial cells LM.HPF (Urine sed) [#/Area] None Seen Normal [facility] Comment on above: Order Comment: Speci men Type: URINE SPECIMENOrdering Facility: [facility] Address: [address] [place] [address] Performed By: #### 2 4356-8 ####[facility] LABCLIA [id number] [place] [address] [place] Glucose Test strip (U) [Mass/Vol] Negative Normal Negative [facility] Comment on above: Order Comment: Speci men Type: URINE SPECIMENOrdering Facility: [facility] Address: [address] [place] [address] Performed By: #### 2 4356-8 ####[facility] LABCLIA [id number] [place] [id number] [place] Hemoglobin Ql (U) Negative Normal Negative [facility] Comment on above: Order Comment: Speci men Type: URINE SPECIMENOrdering Facility: [facility] Address: [address] [place] [address] Performed By: #### 2 4356-8 ####[facility] LABCLIA [id number] [facility] [address], [facility] [place] Hyaline casts (Urine sed) [#/Area] 1-3 /LPF Abnormal 0 /LPF [facility] Comment on above: Order Comment: Speci men Type: URINE SPECIMENOrdering Facility: [facility] Address: [address] [place] [address] Performed By: #### 2 4356-8 ####[facility] LABCLIA [id number] [address] [place] [address] [place] Ketones Ql (U) Negative Normal Negative [facility] Comment on above: Order Comment: Speci men Type: URINE SPECIMENOrdering Facility: [facility] Address: [address] [place] [address] Performed By: #### 2 4356-8 ####[facility] LABCLIA [id number] [address], [place] [address] [place] Leukocyte esterase Test strip Ql (U) Negative Normal Negative [facility] Comment on above: Order Comment: Speci men Type: URINE SPECIMENOrdering Facility: [facility] Address: [address] [place] [address] Performed By: #### 2 4356-8 ####[facility] LABCLIA [id number] [address], [facility] [place] Nitrite Ql (U) Negative Normal Negative [facility] Comment on above: Order Comment: Speci men Type: URINE SPECIMENOrdering Facility: [facility] Address: [address] [place] [address] Performed By: #### 2 4356-8 ####[facility] LABCLIA [id number] [place] [id number] [place] pH (U) 6.0 [pH] Normal 5.0-8.0 [facility] Comment on above: Order Comment: Speci men Type: URINE SPECIMENOrdering Facility: [facility] Address: [address] [place] [address] Performed By: #### 2 4356-8 ####[facility] LABCLIA [id number] [place] [address] [place] Protein (U) [Mass/Vol] 1+ Abnormal Negative [facility] Comment on above: Order Comment: Speci men Type: URINE SPECIMENOrdering Facility: [facility] Address: [address] [place] [address] Performed By: #### 2 4356-8 ####[facility] LABIA [id number] [place] [address] [place] RBC LM.HPF (Urine sed) [#/Area] 0-2 /HPF Normal 0-2 /HPF [facility] Comment on above: Order Comment: Speci men Type: URINE SPECIMENOrdering Facility: [facility] Address: [address] [place] [address] Performed By: #### 2 4356-8 ####[facility] LABIA [id number] [place] [address] [place] Specific gravity (U) [Rel density] 1.014 Normal 1.005-1.03 0 [facility] Comment on above: Order Comment: Speci men Type: URINE SPECIMENOrdering Facility: [facility] Address: [address] [place] [address] Performed By: #### 2 4356-8 ####[facility] LABIA [id number] [address] [place] Urobilinogen Ql (U) 0.2 EU/dL Normal 0.2-1.0 EU/dL [facility] Comment on above: Order Comment: Speci men Type: URINE SPECIMENOrdering Facility: [facility] Address: [address] [place] [address] Performed By: #### 2 4356-8 ####[facility] LABIA [id number] [place] [address] [place] WBC LM.HPF (Urine sed) [#/Area] 0-5 /HPF Normal 0-5 /HPF [facility] Comment on above: Order Comment: Speci men Type: URINE SPECIMENOrdering Facility: [facility] Address: [address] [facility] [place] [address] Performed By: #### 2 4356-8 ####[facility] LABCLIA [id number] [place] [address] [place] US KIDNEY/BLADDERon 04-15-20 25 US KIDNEY/BLADDER * * *Final Report* * * DATE OF EXAM: Apr 15 2025 1:34PM [facility] 1055 - KIDNEY/BLADDER / PROCEDURE REASON: Acute renal failure, [...] IMPRESSION: Normal sonographic appearance of the kidneys. [employer]: PSCB Transcribe Date/Time: Apr 18 2025 12:28P Dictated by : LULI GALICIA MD This examination was interpreted and the report reviewed and electronically signed by: LULI GALICIA MD on Apr 18 2025 12:29PM EST [id number] Normal [facility] CNOVon 04-13-2025 CNOV Office Visit ([facility] ) RAGHAVENDRA BURROWS ([id number]) 1970 M Date Time Provider Department 04/13/25 1:00 PM NELLY XIAO During your visit today, we recorded the following information about you: Temperature Pulse Blood pressure Weight 99.5 degrees 77/minute 94/59 98.8 kg Height 1.854 m Nelly Xiao I, MD 04/13/2025 2:14 PM Signed [facility] NEPHROLOG[facility]YPERTENSION [facility]. Name:Raghavendra Burrows The patient, Raghavendra Burrows's, identity was verified by name and MRN. Pt is accompanied in the office today by his significant other-Erika Consultation requested by Dr. Denise ,for my opinion regarding elevated serum creatinine-from acute renal failure superimposed on CKD stage 4. My final recommendations will be communicated back to the requesting physician by way of shared Medical record or letter . PCP:Harjeet Bernard MD HPI: Raghavendra Burrows is a 54-year-old male with H/O [...] RESP: no (more content not included)... [facility] ([facility]) FIRSTRAGHAVENDRA Zepeda ([id number]) 1970 M Date Time Provider Department 04/13/25 [...] Fully Assessed Reason for Visit: Care Coordination [5326] Prescriptions as of 04/14/2025 - amoxicillin-clavulanate potassium [...] , filters, tubing, humidifier and lifetime supplies. AMRBOSE G47.33 - ferrous sulfate 325 mg (65 [...] Encounter Status:Closed by NELLY XIAO on 04/14/25 [facility] FIRST,RAGHAVENDRA Zepeda ([id number]) 1970 M Date Time Provider Department 04/13/25 [...] ED visits for dehydration. At your local [facility] you can place standing orders for a [...] to on the road at this time Nayely Stone 04/26/2025 3:45 PM Signed Patient called requesting information about treatment. He will call back to schedule once he checks with work schedule Ana Rosa Rossi LPN 04/30/2025 9:14 AM Signed Sent [employer] message asking if he checked with work so he could IVF scheduled. ALICE Gibbs Melissa 04/30/2025 12:49 PM Signed Scheduled with patient. Start email sent Pharm, please advise how often patient is to schedule, or PRN. 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 Normal [facility] Absolute lymphocyte countOrd ered By: Nathen Walker on 04-12-2025 Lymphocytes Auto (Unsp spec) [#/Vol] 1.48 10*3/uL 0.83-4.51 [facility] Absolute neutrophil countOrd ered By: Nathen Walker on 04-12-2025 Neutrophils (Bld) [#/Vol] 6.1 10*3/uL 2.0-7.7 [facility] Anion gap in Serum or Plasma Ordered By: Nathen Walker on 04-12-2025 Anion gap [Moles/Vol] 13 mmol/L 5-15 [facility] Automated lymphocyte count a s percentage of total leukocytesOrdered By: Nathen Walker on 04-12-2025 Lymphocytes/100 WBC Auto (Unsp spec) 16.9 % Low 19-41 [facility] BUN/creatinine ratioOrdered By: Nathen Walker on 04-12-2025 Urea nitrogen/Creatinine [Mass ratio] 15.0 mg/mg 10- [facility] Basic Metabolic Profile (BMP )on 04-12-2025 BUN/CRE 15.0 RATIO Normal - [facility] Comment on above: Performed By: #### L 500.2500, L503.7505, L100.0100 #### [facility] Laboratory [address] [place], [address] Calcium [Mass/Vol] 7.4 mg/dL Low 7.6-11.0 [facility] Comment on above: Performed By: #### L 500.2500, L503.7505, L100.0100 #### [facility] Laboratory [address] [place], [address] Chloride [Moles/Vol] 107 mmol/L Normal 98-108 [facility] Comment on above: Performed By: #### L 500.2500, L503.7505, L100.0100 #### [facility] Laboratory [address] [place], [address] CO2 [Moles/Vol] 19.3 mmol/L Low 21.0-32.0 [facility] Comment on above: Performed By: #### L 500.2500, L503.7505, L100.0100 #### [facility] Laboratory [address] [place], [address] Creatinine [Mass/Vol] 1.94 mg/dL High 0.70-1.20 [facility] Comment on above: Performed By: #### L 500.2500, L503.7505, L100.0100 #### [facility] Laboratory [address] [place], [address] ECRCL 54.61 ml/min Normal 50-250 [facility] Comment on above: Performed By: #### L 500.2500, L503.7505, L100.0100 #### [facility] Laboratory [address] [place], [address] GAP 13 Normal 5-15 [facility] Comment on above: Performed By: #### L 500.2500, L503.7505, L100.0100 #### [facility] Laboratory [address] [place], [address] GFR/1.73 sq M.predicted among non-blacks MDRD (S/P/Bld) [Vol rate/Area] 41 mL/min/{1.73_m2} Low >60 [facility] Comment on above: Result Comment: mL/m in/1.73m2 CKD-EPI Creatinine Equation (2020) Performed By: #### L 500.2500, L503.7505, L100.0100 #### [facility] Laboratory [address] [place], [address] Glucose [Mass/Vol] 87 mg/dL Normal 70-99 [facility] Comment on above: Performed By: #### L 500.2500, L503.7505, L100.0100 #### [facility] Laboratory [address] [place], [address] Potassium [Moles/Vol] 4.8 mmol/L Normal 3.3-5.1 [facility] Comment on above: Result Comment: Hemo lysis present, Results??could be affected. ?? Performed By: #### L 500.2500, L503.7505, L100.0100 #### [facility] Laboratory [address] [place], [address] Sodium [Moles/Vol] 139 mmol/L Normal 133-145 [facility] Comment on above: Performed By: #### L 500.2500, L503.7505, L100.0100 #### [facility] Laboratory [address] [place], [address] Urea nitrogen [Mass/Vol] 29 mg/dL High 4-19 [facility] Comment on above: Performed By: #### L 500.2500, L503.7505, L100.0100 #### [facility] Laboratory [address] [place], [address] Basic metabolic 2000 panelon 04-12-2025 Anion gap [Moles/Vol] 12 mmol/L Normal 8-15 [facility] Comment on above: Order Comment: Speci men Type: BLOOD SPECIMENOrdering Facility: [facility] Address: [address] [place] [address] Performed By: #### 2 4321-2 ####[facility] LABCLIA [id number] [place] [address] [place] Calcium [Mass/Vol] 7.8 mg/dL Low 8.5-10.2 [facility] Comment on above: Order Comment: Speci men Type: BLOOD SPECIMENOrdering Facility: [facility] Address: [address] [place] [address] Performed By: #### 2 4321-2 ####[facility] LABCLIA [id number] [place] [address] [place] Chloride [Moles/Vol] 108 mmol/L High 98-107 [facility] Comment on above: Order Comment: Speci men Type: BLOOD SPECIMENOrdering Facility: [facility] Address: [address] [place] [address] Performed By: #### 2 4321-2 ####[facility] LABCLIA [id number] [place] [id number] [place] CO2 [Moles/Vol] 20 mmol/L Low 22-30 [facility] Comment on above: Order Comment: Speci men Type: BLOOD SPECIMENOrdering Facility: [facility] Address: [address] [place] [address] Performed By: #### 2 4321-2 ####[facility] LABIA [id number] [place] [id number] [place] Creatinine [Mass/Vol] 2.05 mg/dL High 0.73-1.22 [facility] Comment on above: Order Comment: Speci men Type: BLOOD SPECIMENOrdering Facility: [facility] Address: [address] [place] [address] Performed By: #### 2 4321-2 ####[facility] LABIA [id number] [place] [address] [place] Creatinine and Glomerular filtration rate.predicted panel (S/P/Bld) 38 mL/min/1.73m??? Low >=60 [facility] Comment on above: Order Comment: Speci men Type: BLOOD SPECIMENOrdering Facility: [facility] Address: [address] [place] [address] Result Comment: Marlen mated Glomerular Filtration Rate [...] actual GFR. Performed By: #### 2 4321-2 ####[facility] LABIA [id number] [place] [id number] [place] Glucose [Mass/Vol] 87 mg/dL Normal 74-99 [facility] Comment on above: Order Comment: Speci men Type: BLOOD SPECIMENOrdering Facility: [facility] Address: [address] [place] [address] Result Comment: The [place] Diabetes Association (ADA) provides guidance for cutoff [...] Standards of Medical Care in Diabetes 2016, [place] [employer]. Diabetes Care. 2016.39(Suppl 1). Performed By: #### 2 4321-2 ####[facility] LABIA [id number] [place] [address] [place] Potassium [Moles/Vol] 4.3 mmol/L Normal 3.7-5.1 [facility] Comment on above: Order Comment: Speci men Type: BLOOD SPECIMENOrdering Facility: [facility] Address: [address] [place] [address] Performed By: #### 2 4321-2 ####[facility] LABIA [id number] [place] [address] [place] Sodium [Moles/Vol] 140 mmol/L Normal 136-144 [facility] Comment on above: Order Comment: Speci men Type: BLOOD SPECIMENOrdering Facility: [facility] Address: [address] [place] [address] Performed By: #### 2 4321-2 ####[facility] LABIA [id number] [place] [id number] [place] Urea nitrogen [Mass/Vol] 29 mg/dL High 9-24 [facility] Comment on above: Order Comment: Speci men Type: BLOOD SPECIMENOrdering Facility: [facility] Address: [address] [place] [address] Performed By: #### 2 4321-2 ####[facility] LABIA [id number] [place] [id number] [place] Basophil percentageOrdered B y: Nathen Walker on 04-12-2025 Basophils/100 WBC (Bld) 0.5 % 0-1 [facility] CBC W/Diff, Automatedon 03-30 Absolute Lymph 1.48 X10 3/uL Normal 0.83-4.51 [facility] Comment on above: Performed By: #### L 500.2500, L503.7505, L100.0100 #### [facility] Laboratory [address] [place], [address] Absolute Neut 6.1 X10 3/uL Normal 2.0-7.7 [facility] Comment on above: Performed By: #### L 500.2500, L503.7505, L100.0100 #### [facility] Laboratory [address] [place], [address] Basophils/100 WBC (Bld) 0.5 % Normal 0-1 [facility] Comment on above: Performed By: #### L 500.2500, L503.7505, L100.0100 #### [facility] Laboratory [address] [place], [address] Eosinophils/100 WBC (Bld) 1.1 % Normal 0-5 [facility] Comment on above: Performed By: #### L 500.2500, L503.7505, L100.0100 #### [facility] Laboratory [address] [place], [address] Erythrocyte distribution width (RBC) [Ratio] 14.7 % High 11.6-14.6 [facility] Comment on above: Performed By: #### L 500.2500, L503.7505, L100.0100 #### [facility] Laboratory [address] [place], [address] Hematocrit (Bld) [Volume fraction] 26.6 % Low 40-54 [facility] Comment on above: Performed By: #### L 500.2500, L503.7505, L100.0100 #### [facility] Laboratory [address] [place], [address] Hemoglobin (Bld) [Mass/Vol] 8.6 g/dL Low 13.0-16.5 [facility] Comment on above: Performed By: #### L 500.2500, L503.7505, L100.0100 #### [facility] Laboratory [address] [place], [address] IG% 0.500 Normal 0.0-0.9 [facility] Comment on above: Result Comment: IG% - Immature Granulocytes (promyelocytes, myelocytes and metamyelocytes) > 1% indicates that a LEFT SHIFT is Present. Performed By: #### L 500.2500, L503.7505, L100.0100 #### [facility] Laboratory [address] [place], [address] Lymphocytes/100 WBC (Bld) 16.9 % Low 19-41 [facility] Comment on above: Performed By: #### L 500.2500, L503.7505, L100.0100 #### [facility] Laboratory [address] [place] [address] [place], [address] MCH (RBC) [Entitic mass] 31.3 pg Normal 27.0-32.0 [facility] Comment on above: Performed By: #### L 500.2500, L503.7505, L100.0100 #### [facility] Laboratory [address] [place] [address] [place], [address] MCHC (RBC) [Mass/Vol] 32.3 g/dL Normal 32-36 [facility] Comment on above: Performed By: #### L 500.2500, L503.7505, L100.0100 #### [facility] Laboratory [address] [place], [address] MCV (RBC) [Entitic vol] 96.7 fL High 80-94 [facility] Comment on above: Performed By: #### L 500.2500, L503.7505, L100.0100 #### [facility] Laboratory [address] [place], [address] Monocytes/100 WBC (Bld) 11.2 % High 0-10 [facility] Comment on above: Performed By: #### L 500.2500, L503.7505, L100.0100 #### [facility] Laboratory [address] [place], [address] Neutrophils/100 WBC (Bld) 69.8 % Normal 47-70 [facility] Comment on above: Performed By: #### L 500.2500, L503.7505, L100.0100 #### [facility] Laboratory [address] [place], [address] Nucleated RBC (Bld) [#/Vol] 0 10*3/uL Normal 0-5 [facility] Comment on above: Performed By: #### L 500.2500, L503.7505, L100.0100 #### [facility] Laboratory [address] [place], [address] Platelet mean volume (Bld) [Entitic vol] 9.2 fL Normal 6.2-12.0 [facility] Comment on above: Performed By: #### L 500.2500, L503.7505, L100.0100 #### [facility] Laboratory [address] [place], [address] Platelets (Bld) [#/Vol] 465 10*3/uL High 150-450 [facility] Comment on above: Performed By: #### L 500.2500, L503.7505, L100.0100 #### [facility] Laboratory [address] [place], [address] RBC (Bld) [#/Vol] 2.75 10*6/uL Low 4.6-6.2 [facility] Comment on above: Performed By: #### L 500.2500, L503.7505, L100.0100 #### [facility] Laboratory [address] [place], [address] RDW SD 52.8 fl High 35.1-43.9 [facility] Comment on above: Performed By: #### L 500.2500, L503.7505, L100.0100 #### [facility] Laboratory [address] [place], [address] WBC (Bld) [#/Vol] 8.8 10*3/uL Normal 4.4-11.0 [facility] Comment on above: Performed By: #### L 500.2500, L503.7505, L100.0100 #### [facility] Laboratory [address] [place], [address] Carbon dioxide, total [Moles /volume] in Central venous bloodOrdered By: Nathen Walker on 04-12-2025 CO2 [Moles/Vol] 19.3 mmol/L Low 21.0-32.0 [facility] Chloride assayOrdered By: Justus Walker on 04-12-2025 Chloride [Moles/Vol] 107 mmol/L 98-108 [facility] Emergency Department Summary on 04-12-2025 Emergency Department Summary [facility] Medical Records Department [address] [place] [address] Emergency Department Summary 04/12/25 MR#: [id number] Acct: [id number] Name: RAGHAVENDRA BURROWS Rep #: [id number] : 1970 54 From: Nathen Walker MD PCP: Dr. 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 He states that he works and [...] subside. No history of congestive heart failure. [facility] Medical History Dehydration Acute kidney injury [...] BNP might (more content not included)... Normal [facility] Eosinophil percentageOrdered By: Nathen Walker on 04-12-2025 Eosinophils/100 WBC (Bld) 1.1 % 0-5 [facility] Erythrocyte distribution wid th ratioOrdered By: Nathen Walker on 04-12-2025 Erythrocyte distribution width (RBC) [Ratio] 14.7 % High 11.6-14.6 [facility] Erythrocyte distribution wid th standard deviationOrdered By: Nathen Walker on 04-12-2025 Erythrocyte distribution width (RBC) [Ratio] 52.8 fl High 35.1-43.9 [facility] Glomerular filtration rate ( GFR) estimation/1.73 sq m using serum, plasma, or whole bOrdered By: Nathen Walker on 04-12-2025 GFR/1.73 sq M.predicted among non-blacks MDRD (S/P/Bld) [Vol rate/Area] 41 mL/min/{1.73_m2} Low >60 [facility] Comment on above: mL/min/1.73m2 CKD-EP I Creatinine Equation (2020) Hematocrit Auto (Bld) [Volum e fraction]Ordered By: Nathen Walker on 04-12-2025 Hematocrit (Bld) [Volume fraction] 26.6 % Low 40-54 [facility] Hemoglobin measurementOrdere d By: Nathen Walker on 04-12-2025 Hemoglobin (Bld) [Mass/Vol] 8.6 g/dL Low 13.0-16.5 [facility] Immature granulocytes/100 WB C Auto (Bld)Ordered By: Nathen Walker on 04-12-2025 Immature granulocytes/100 WBC (Bld) 0.500 % 0.0-0.9 [facility] Comment on above: IG% - Immature Granu locytes (promyelocytes, myelocytes and metamyelocytes) > 1% indicates that a LEFT SHIFT is Present. L503.7505on 04-12-2025 Natriuretic peptide B (Bld) [Mass/Vol] 1046 pg/mL High <=900 [facility] Comment on above: Result Comment: Hear t Failure Unlikely: < 300 pg/mL Heart Failure Likely < 50 Years: > 450 pg/mL 50-75 Years: > 900 pg/mL >75 Years: > 1800 pg/mL Performed By: #### L 500.2500, L503.7505, L100.0100 #### [facility] Laboratory [facility] [address] [place], [place], [id number] MCV (mean corpuscular volume ) determinationOrdered By: Nathen Walker on 04-12-2025 MCV (RBC) [Entitic vol] 96.7 fL High 80-94 [facility] Mean corpuscular hemoglobin (MCH) determinationOrdered By: Nathen Walker on 04-12-2025 MCH (RBC) [Entitic mass] 31.3 pg 27.0-32.0 [facility] Mean corpuscular hemoglobin concentration (MCHC) determinationOrdered By: Nathen Walker on 04-12-2025 MCHC (RBC) [Mass/Vol] 32.3 g/dL 32-36 [facility] Mean platelet volume determi nationOrdered By: Nathen Walker on 04-12-2025 Platelet mean volume (Bld) [Entitic vol] 9.2 fL 6.2-12.0 [facility] Monocyte percentageOrdered B y: Nathen Walker on 04-12-2025 Monocytes/100 WBC (Bld) 11.2 % High 0-10 [facility] Natriuretic peptide.B prohor emily N-Terminal [Mass/volume] in Serum or PlasmaOrdered By: Nathen Walker on 04-12-2025 Natriuretic peptide.B prohormone N-Terminal [Mass/Vol] 1046 pg/mL High <900 [facility] Comment on above: Heart Failure Unlike ly: < 300 pg/mLHeart Failure Likely< 50 Years: > 450 pg/mL50-75 Years: > 900 pg/mL>75 Years: > 1800 pg/mL Neutrophil percentageOrdered By: Nathen Walker on 04-12-2025 Neutrophils/100 WBC (Bld) 69.8 % 47-70 [facility] Nucleated red blood cell per centageOrdered By: Nathen Walker on 04-12-2025 Nucleated RBC/100 WBC (Bld) [Ratio] 0 % 0-5 [facility] Platelet countOrdered By: Justus Walker on 04-12-2025 Platelets (Bld) [#/Vol] 465 10*3/uL High 150-450 [facility] Potassium measurement (mass/ volume)Ordered By: Nathen Walker on 04-12-2025 Potassium (Unsp spec) [Mass/Vol] 4.8 mmol/L 3.3-5.1 [facility] Comment on above: Hemolysis present, R esults could be affected. RBC Auto (Bld) [#/Vol]Ordere d By: Nathen Walker on 04-12-2025 RBC (Bld) [#/Vol] 2.75 10*6/uL Low 4.6-6.2 [facility] Serum creatinine measurement (mass/volume)Ordered By: Nathen Walker on 04-12-2025 Creatinine [Mass/Vol] 1.94 mg/dL High 0.70-1.20 [facility] Serum glucose measurement (m ass/volume)Ordered By: Nathen Walker on 04-12-2025 Glucose [Mass/Vol] 87 mg/dL 70-99 [facility] Serum or plasma calcium tran urement (mass/volume)Ordered By: Nathen Walker on 04-12-2025 Calcium [Mass/Vol] 7.4 mg/dL Low 7.6-11.0 [facility] Serum or plasma urea nitroge n measurement (mass/volume)Ordered By: Nathen Walker on 04-12-2025 Urea nitrogen [Mass/Vol] 29 mg/dL High 4-19 [facility] Sodium levelOrdered By: Nathen Walker on 04-12-2025 Sodium [Moles/Vol] 139 mmol/L 133-145 [facility] Venous Duplex Imag/Hugh Extre mon 04-12-2025 Venous Duplex Imag/Hugh Extrem [facility] Services [address] [place] [address] Venous Duplex Imag/Hugh Extrem MR#: [id number] Acct: [id number] Name: RAGHAVENDRA BURROWS Rep #: [id number] : 1970 M 54 From: Edwin Cueva PCP: Dr. Harjeet Bernard MD Status: [facility] ER Study: Venous Duplex Imag/Hugh Extrem Date of Exam: Exam# [id number] Ordering Dr: Nathen Walker MD PROCEDURE: VENOUS [...] thrombosis within bilateral lower extremities. Reading Location: [facility] CC: Dr. Nathen Walker MD; Dr. Harjeet Bernard MD [employer]: Signed Normal [facility] White blood cell (WBC) count Ordered By: Nathen Walker on 04-12-2025 WBC (Bld) [#/Vol] 8.8 10*3/uL 4.4-11.0 [facility] Basic metabolic 2000 panelon 04-05-2025 Anion gap [Moles/Vol] 15 mmol/L Normal 8-15 [facility] Comment on above: Order Comment: Speci men Type: BLOOD SPECIMENOrdering Facility: [facility] Address: [address] [place] [address] Performed By: #### 2 4321-2 ####[facility] LABCLIA [id number] [place] [address] [place] Calcium [Mass/Vol] 8.5 mg/dL Normal 8.5-10.2 [facility] Comment on above: Order Comment: Speci men Type: BLOOD SPECIMENOrdering Facility: [facility] Address: [address] [place] [address] Performed By: #### 2 4321-2 ####[facility] LABCLIA [id number] [place] [address] [place] Chloride [Moles/Vol] 105 mmol/L Normal 98-107 [facility] Comment on above: Order Comment: Speci men Type: BLOOD SPECIMENOrdering Facility: [facility] Address: [address] [place] [address] Performed By: #### 2 4321-2 ####[facility] LABCLIA [id number] [place] [id number] [place] CO2 [Moles/Vol] 17 mmol/L Low 22-30 [facility] Comment on above: Order Comment: Speci men Type: BLOOD SPECIMENOrdering Facility: [facility] Address: [address] [place] [address] Performed By: #### 2 4321-2 ####[facility] LABCLIA [id number] [place] [id number] [place] Creatinine [Mass/Vol] 2.75 mg/dL High 0.73-1.22 [facility] Comment on above: Order Comment: Speci men Type: BLOOD SPECIMENOrdering Facility: [facility] Address: [address] [place] [address] Performed By: #### 2 4321-2 ####[facility] LABIA [id number] [place] [address] [place] Creatinine and Glomerular filtration rate.predicted panel (S/P/Bld) 27 mL/min/1.73m??? Low >=60 [facility] Comment on above: Order Comment: Speci men Type: BLOOD SPECIMENOrdering Facility: [facility] Address: [address] [place] [address] Result Comment: Marlen mated Glomerular Filtration Rate [...] actual GFR. Performed By: #### 2 4321-2 ####[facility] LABCLIA [id number] [place] [id number] [place] Glucose [Mass/Vol] 100 mg/dL High 74-99 [facility] Comment on above: Order Comment: Speci men Type: BLOOD SPECIMENOrdering Facility: [facility] Address: [address] [place] [address] Result Comment: The [place] Diabetes Association (ADA) provides guidance for cutoff [...] Standards of Medical Care in Diabetes 2016, [place] [employer]. Diabetes Care. 2016.39(Suppl 1). Performed By: #### 2 4321-2 ####[facility] LABIA [id number] [place] [address] [place] Potassium [Moles/Vol] 3.1 mmol/L Low 3.7-5.1 [facility] Comment on above: Order Comment: Speci men Type: BLOOD SPECIMENOrdering Facility: [facility] Address: [address] [place] [address] Performed By: #### 2 1-2 ####[facility] LABIA [id number] [place] [address] [place] Sodium [Moles/Vol] 137 mmol/L Normal 136-144 [facility] Comment on above: Order Comment: Speci men Type: BLOOD SPECIMENOrdering Facility: [facility] Address: [address] [place] [address] Performed By: #### 2 1-2 ####[facility] LABIA [id number] [place] [address] [place] Urea nitrogen [Mass/Vol] 39 mg/dL High 9-24 [facility] Comment on above: Order Comment: Speci men Type: BLOOD SPECIMENOrdering Facility: [facility] Address: [address] [id number] Performed By: #### 2 4321-2 ####[facility] LABCLIA [id number] [place] [address] [place] Basic metabolic 2000 panelOr dered By: Alexandra Perez on 03-29-2025 Anion gap [Moles/Vol] 15 mmol/L 8 - 15 mmol/L [facility] Calcium [Mass/Vol] 9.4 mg/dL 8.5 - 10. 2 mg/dL [facility] Chloride [Moles/Vol] 102 mmol/L 98 - 10 7 mmol/L [facility] CO2 [Moles/Vol] 11 mmol/L Low 22 - 30 mmol/L [facility] Creatinine [Mass/Vol] 2.55 mg/dL High 0.73 - 1.22 mg/dL [facility] GFR/1.73 sq M.predicted among non-blacks MDRD (S/P/Bld) [Vol rate/Area] 29 mL/min/{1.73_m2} Low - PINF [facility] Comment on above: Estimated Glomerular Filtration Rate [...] 117 mg/dL High 74 - 99 mg/dL [facility] Comment on above: The [place] Diabete s Association (ADA) provides guidance for [...] Standards of Medical Care in Diabetes 2016, [place] [employer] Association. Diabetes Care. 2016.39(Suppl 1). Interpretation and review of laboratory results Abnormal [facility] Potassium [Moles/Vol] 3.5 mmol/L Low 3.7 - 5.1 mmol/L [facility] Sodium [Moles/Vol] 128 mmol/L Low 136 - 144 mmol/L [facility] Urea nitrogen [Mass/Vol] 74 mg/dL High 9 - 24 mg/dL [facility] Basic metabolic 2000 panelon 03-29-2025 Anion gap [Moles/Vol] 15 mmol/L Normal 8-15 [facility] Comment on above: Order Comment: Speci men Type: BLOOD SPECIMEN [facility] Address: [address] [place] [address] Performed By: #### 2 4321-2 #### [facility] CLIA [id number] [address] [place] [address] [place] Calcium [Mass/Vol] 9.4 mg/dL Normal 8.5-10.2 [facility] Comment on above: Order Comment: Speci men Type: BLOOD SPECIMEN [facility] Facility[facility] Address: [address] [place] [address] Performed By: #### 2 4321-2 #### [facility] CLIA [id number] [address] [place] [address] [place] Chloride [Moles/Vol] 102 mmol/L Normal 98-107 [facility] Comment on above: Order Comment: Speci men Type: BLOOD SPECIMEN [facility] Address: [address] [place] [address] Performed By: #### 2 4321-2 #### [facility] CLIA [id number] [address] [place] [address] [place] CO2 [Moles/Vol] 11 mmol/L Low 22-30 [facility] Comment on above: Order Comment: Speci men Type: BLOOD SPECIMEN [facility] Address: [address] [place] [address] Performed By: #### 2 4321-2 #### [facility] CLIA [id number] [address] [place] [address] [place] Creatinine [Mass/Vol] 2.55 mg/dL High 0.73-1.22 [facility] Comment on above: Order Comment: Rose summers Type: BLOOD SPECIMEN [facility] Address: [address] [place] [address] Performed By: #### 2 4321-2 #### [id number] [address] [place] [address] [place] Creatinine and Glomerular filtration rate.predicted panel (S/P/Bld) 29 mL/min/1.73m??? Low >=60 [facility] Comment on above: Order Comment: Rose summers Type: BLOOD SPECIMEN [facility] Address: [address] [place] [address] Result Comment: Marlen mated Glomerular Filtration Rate [...] GFR. Performed By: #### 2 4321-2 #### [facility] [id number] [address] [place] [address] [place] Glucose [Mass/Vol] 117 mg/dL High 74-99 [facility] Comment on above: Order Comment: Rose summers Type: BLOOD SPECIMEN [facility] Address: [address] [place] [address] Result Comment: The [place] Diabetes Association (ADA) provides guidance for cutoff [...] Standards of Medical Care in Diabetes 2016, [place] Diabetes Association. Diabetes Care. 2016.39(Suppl 1). Performed By: #### 2 4321-2 #### [facility] [id number] [address] [place] [address] [place] Potassium [Moles/Vol] 3.5 mmol/L Low 3.7-5.1 [facility] Comment on above: Order Comment: Rose summers Type: BLOOD SPECIMEN [facility] Address: [address] [place] [address] Performed By: #### 2 4321-2 #### [facility] [id number] [address] [place] [address] [place] Sodium [Moles/Vol] 128 mmol/L Low 136-144 [facility] Comment on above: Order Comment: Rose summers Type: BLOOD SPECIMEN [facility] Address: [address] [place] [address] Performed By: #### 2 4321-2 #### [facility] [id number] [address] [place] [address] [place] Urea nitrogen [Mass/Vol] 74 mg/dL High 9-24 [facility] Comment on above: Order Comment: Rose summers Type: BLOOD SPECIMEN [facility] Address: [address] [place] [address] Performed By: #### 2 4321-2 #### [facility] [id number] [address] [place] [address] [place] CNOVon 03-29-2025 CNOV Office Visit (INTMWS ) FIRST,RAGHAVENDRA Zepeda ([id number]) 1970 M Date Time Provider Department 03/29/25 1:20 PM KELLEN SALGUERO INTMWS During your visit today, we recorded the following information about you: Temperature Pulse Respiration Blood pressure 97.6 degrees 88/minute 18/minute 108/72 Weight 84.8 kg Kellen Salguero, THERAPIST RESPIRATORY.CNC SUPERVISOR 03/29/2025 1:34 PM Signed We discussed your [...] issues contributing to your symptoms. - The system designer may order additional tests, such as blood [...] or seek immediate medical care. Kellen Salguero, PERLA.[facility] 03/29/2025 1:43 PM Signed CC: Patient presents with: ER F/U HPI Recording using ambient AI software for draft documentation of the visit was discussed with the patient/authorized leasing representative; all questions welcomed and answered. Patient/authorized leasing representative agreed to proceed Triny Burrows is [...] fatigue Unspe (more content not included)... Normal [facility] Absolute lymphocyte countOrd ered By: Hesham Jacobson on 03-28-2025 Lymphocytes Auto (Unsp spec) [#/Vol] 0.55 10*3/uL Low 0.83-4.51 [facility] Absolute neutrophil countOrd ered By: Hesham Jacobson on 03-28-2025 Neutrophils (Bld) [#/Vol] 15.8 10*3/uL High 2.0-7.7 [facility] Anion gap in Serum or Plasma Ordered By: Hesham Jacobson on 03-28-2025 Anion gap [Moles/Vol] 15 mmol/L 5-15 [facility] Automated lymphocyte count a s percentage of total leukocytesOrdered By: Hesham Jacobson on 03-28-2025 Lymphocytes/100 WBC Auto (Unsp spec) 3.0 % Low 19-41 [facility] BUN/creatinine ratioOrdered By: Hesham Jacobson on 03-28-2025 Urea nitrogen/Creatinine [Mass ratio] 26.4 mg/mg High 10-20 [facility] Basic Metabolic Profile (BMP )on 03-28-2025 BUN/CRE 26.4 RATIO High 1020 [facility] Comment on above: Performed By: #### L 500.2500, L503.7505, L100.0100 #### [facility] [address] [place], [address] Calcium [Mass/Vol] 9.1 mg/dL Normal 7.6-11.0 [facility] Comment on above: Performed By: #### L 500.2500, L503.7505, L100.0100 #### [facility] [address] [place], [address] Chloride [Moles/Vol] 103 mmol/L Normal 98-108 [facility] Comment on above: Performed By: #### L 500.2500, L503.7505, L100.0100 #### [facility] [address] [place], [address] CO2 [Moles/Vol] 10.3 mmol/L Low 21.0-32.0 [facility] Comment on above: Performed By: #### L 500.2500, L503.7505, L100.0100 #### [facility] [address] [place], [address] Creatinine [Mass/Vol] 2.91 mg/dL High 0.70-1.20 [facility] Comment on above: Performed By: #### L 500.2500, L503.7505, L100.0100 #### [facility] [address] [place], [address] ECRCL 33.56 ml/min Low 50-250 [facility] Comment on above: Performed By: #### L 500.2500, L503.7505, L100.0100 #### [facility] [address] [place], [address] GAP 15 Normal 5-15 [facility] Comment on above: Performed By: #### L 500.2500, L503.7505, L100.0100 #### [facility] [address] [place], [address] GFR/1.73 sq M.predicted among non-blacks MDRD (S/P/Bld) [Vol rate/Area] 25 mL/min/{1.73_m2} Low >60 [facility] Comment on above: Result Comment: mL/m in/1.73m2 CKD-EPI Creatinine Equation (2020) Performed By: #### L 500.2500, L503.7505, L100.0100 #### [facility] [address] [place], [address] Glucose [Mass/Vol] 121 mg/dL High 70-99 [facility] Comment on above: Performed By: #### L 500.2500, L503.7505, L100.0100 #### [facility] [address] [place], [address] Potassium [Moles/Vol] 3.8 mmol/L Normal 3.3-5.1 [facility] Comment on above: Performed By: #### L 500.2500, L503.7505, L100.0100 #### [facility] [address] [place], [address] Sodium [Moles/Vol] 128 mmol/L Low 133-145 [facility] Comment on above: Performed By: #### L 500.2500, L503.7505, L100.0100 #### [facility] [address] [place], [address] Urea nitrogen [Mass/Vol] 77 mg/dL High 4-19 [facility] Comment on above: Performed By: #### L 500.2500, L503.7505, L100.0100 #### [facility] [address] [place], [address] Basophil percentageOrdered B y: Hesham Jacobson on 03-28-2025 Basophils/100 WBC (Bld) 0.1 % 0-1 [facility] Blood manual differential co mment interpretation (narrative result)Ordered By: Hesham Jacobson on 03-28-2025 Manual differential comment Marco (Bld) [Interp] SCANNED [facility] CBC W/Diff, Automatedon 03-01 PLT EST A Normal ADEQ [facility] Comment on above: Performed By: #### L 500.2500, L503.7505, L100.0100 #### [facility] [address] [place], [address] SMEAR COMMENT SCANNED Normal [facility] Comment on above: Performed By: #### L 500.2500, L503.7505, L100.0100 #### [facility] [address] [place], [address] Carbon dioxide, total [Moles /volume] in Central venous bloodOrdered By: Hesham Jacobson on 03-28-2025 CO2 [Moles/Vol] 10.3 mmol/L Low 21.0-32.0 [facility] Chloride assayOrdered By: Juan Jacobson on 03-28-2025 Chloride [Moles/Vol] 103 mmol/L 98-108 [facility] Emergency Department Summary on 03-28-2025 Emergency Department Summary [facility] Medical Records Department [address] [place] [address] Emergency Department Summary 03/28/25 MR#: [id number] Acct: [id number] Name: RAGHAVENDRA BURROWS Rep #: [id number] : 1970 54 From: Hesham Jacobson MD [...] unkempt Gener (more content not included)... Normal [facility] Eosinophil percentageOrdered By: Hesham Jacobson on 03-28-2025 Eosinophils/100 WBC (Bld) 0.2 % 0-5 [facility] Erythrocyte distribution wid th ratioOrdered By: Hesham Jacobson on 03-28-2025 Erythrocyte distribution width (RBC) [Ratio] 14.8 % High 11.6-14.6 [facility] Erythrocyte distribution wid th standard deviationOrdered By: Hesham Jacobson on 03-28-2025 Erythrocyte distribution width (RBC) [Ratio] 51.8 fl High 35.1-43.9 [facility] Glomerular filtration rate ( GFR) estimation/1.73 sq m using serum, plasma, or whole bOrdered By: Hesham Jacobson on 03-28-2025 GFR/1.73 sq M.predicted among non-blacks MDRD (S/P/Bld) [Vol rate/Area] 25 mL/min/{1.73_m2} Low >60 [facility] Comment on above: mL/min/1.73m2 CKD-EP I Creatinine Equation (2020) Hematocrit Auto (Bld) [Volum e fraction]Ordered By: Hesham Jacobson on 03-28-2025 Hematocrit (Bld) [Volume fraction] 35.9 % Low 40-54 [facility] Hemoglobin measurementOrdere d By: Hehsam Jacobson on 03-28-2025 Hemoglobin (Bld) [Mass/Vol] 12.1 g/dL Low 13.0-16.5 [facility] Immature granulocytes/100 WB C Auto (Bld)Ordered By: Hesham Jacobson on 03-28-2025 Immature granulocytes/100 WBC (Bld) 0.500 % 0.0-0.9 [facility] Comment on above: IG% - Immature Granu locytes (promyelocytes, myelocytes and metamyelocytes) > 1% indicates that a LEFT SHIFT is Present. MCV (mean corpuscular volume ) determinationOrdered By: Hesham Jacobson on 03-28-2025 MCV (RBC) [Entitic vol] 94.7 fL High 80-94 [facility] Mean corpuscular hemoglobin (MCH) determinationOrdered By: Hesham Jacobson on 03-28-2025 MCH (RBC) [Entitic mass] 31.9 pg 27.0-32.0 [facility] Mean corpuscular hemoglobin concentration (MCHC) determinationOrdered By: Hesham Jacobson on 03-28-2025 MCHC (RBC) [Mass/Vol] 33.7 g/dL 32-36 [facility] Mean platelet volume determi nationOrdered By: Hesham Jacobson on 03-28-2025 Platelet mean volume (Bld) [Entitic vol] 8.8 fL 6.2-12.0 [facility] Monocyte percentageOrdered B y: Hesham Jacobson on 03-28-2025 Monocytes/100 WBC (Bld) 9.5 % 0-10 [facility] Neutrophil percentageOrdered By: Hesham Jacobson on 03-28-2025 Neutrophils/100 WBC (Bld) 86.7 % High 47-70 [facility] Nucleated red blood cell per centageOrdered By: Hesham Jacobson on 03-28-2025 Nucleated RBC/100 WBC (Bld) [Ratio] 0 % 0-5 [facility] Platelet countOrdered By: Juan Jacobson on 03-28-2025 Platelets (Bld) [#/Vol] 367 10*3/uL 150-450 [facility] Platelet estimateOrdered By: Hesham Jacobson on 03-28-2025 Platelets LM Ql (Bld) A ADEQ [facility] Potassium measurement (mass/ volume)Ordered By: Hesham Jacobson on 03-28-2025 Potassium (Unsp spec) [Mass/Vol] 3.8 mmol/L 3.3-5.1 [facility] RBC Auto (Bld) [#/Vol]Ordere d By: Hesham Jacobson on 03-28-2025 RBC (Bld) [#/Vol] 3.79 10*6/uL Low 4.6-6.2 [facility] Serum creatinine measurement (mass/volume)Ordered By: Hesham Jacobson on 03-28-2025 Creatinine [Mass/Vol] 2.91 mg/dL High 0.70-1.20 [facility] Serum glucose measurement (m ass/volume)Ordered By: Hesham Jacobson on 03-28-2025 Glucose [Mass/Vol] 121 mg/dL High 70-99 [facility] Serum or plasma calcium tran urement (mass/volume)Ordered By: Hesham Jacobson on 03-28-2025 Calcium [Mass/Vol] 9.1 mg/dL 7.6-11.0 [facility] Serum or plasma urea nitroge n measurement (mass/volume)Ordered By: Hesham Jacobson on 03-28-2025 Urea nitrogen [Mass/Vol] 77 mg/dL High 4-19 [facility] Sodium levelOrdered By: Hesham Jacobson on 03-28-2025 Sodium [Moles/Vol] 128 mmol/L Low 133-145 [facility] White blood cell (WBC) count Ordered By: Hesham Jacobson on 03-28-2025 WBC (Bld) [#/Vol] 18.2 10*3/uL High 4.4-11.0 [facility] Basic metabolic 2000 panelon 03-22-2025 Anion gap [Moles/Vol] 20 mmol/L High 8-15 [facility] Comment on above: Order Comment: Speci men Type: BLOOD SPECIMENOrdering Facility: [facility] Address: [address] [place] [address] Performed By: #### 2 4321-2 ####[facility] LABCLIA [id number] [place] [address] [place] Calcium [Mass/Vol] 9.4 mg/dL Normal 8.5-10.2 [facility] Comment on above: Order Comment: Speci men Type: BLOOD SPECIMENOrdering Facility: [facility] Address: [address] [place] [address] Performed By: #### 2 4321-2 ####[facility] LABCLIA [id number] [place] [address] [place] Chloride [Moles/Vol] 100 mmol/L Normal 98-107 [facility] Comment on above: Order Comment: Speci men Type: BLOOD SPECIMENOrdering Facility: [facility] Address: [address] [place] [address] Performed By: #### 2 4321-2 ####[facility] LABCLIA [id number] [place] [address] [place] CO2 [Moles/Vol] 7 mmol/L Critically low 22-30 [facility] Comment on above: Order Comment: Speci men Type: BLOOD SPECIMENOrdering Facility: [facility] Address: [address] [place] [address] Performed By: #### 2 4321-2 ####[facility] LABCLIA [id number] [place] [address] [place] Creatinine [Mass/Vol] 4.09 mg/dL High 0.73-1.22 [facility] Comment on above: Order Comment: Speci men Type: BLOOD SPECIMENOrdering Facility: [facility] Address: [address] [place] [address] Performed By: #### 2 4321-2 ####[facility] LABIA [id number] [place] [address] [place] Creatinine and Glomerular filtration rate.predicted panel (S/P/Bld) 17 mL/min/1.73m??? Low >=60 [facility] Comment on above: Order Comment: Speci men Type: BLOOD SPECIMENOrdering Facility: [facility] Address: [address] [place] [address] Result Comment: Marlen mated Glomerular Filtration Rate [...] actual GFR. Performed By: #### 2 4321-2 ####[facility] LABCLIA [id number] [address] [address] [place] Glucose [Mass/Vol] 129 mg/dL High 74-99 [facility] Comment on above: Order Comment: Speci men Type: BLOOD SPECIMENOrdering Facility: [facility] Address: [address] [place] [address] Result Comment: The [place] Diabetes Association (ADA) provides guidance for cutoff [...] Standards of Medical Care in Diabetes 2016, [place] [employer]. Diabetes Care. 2016.39(Suppl 1). Performed By: #### 2 4321-2 ####[facility] LABCLIA [id number] [address] [address] [place] Potassium [Moles/Vol] 3.8 mmol/L Normal 3.7-5.1 [facility] Comment on above: Order Comment: Speci men Type: BLOOD SPECIMENOrdering Facility: [facility] Address: [address] [id number] Performed By: #### 2 4321-2 ####[facility] LABCLIA [id number] [facility] [address] [address] [place] Sodium [Moles/Vol] 127 mmol/L Low 136-144 [facility] Comment on above: Order Comment: Speci men Type: BLOOD SPECIMENOrdering Facility: [facility] Address: [address] [id number] Performed By: #### 2 4321-2 ####[facility] LABCLIA [id number] [address] [address] [place] Urea nitrogen [Mass/Vol] 68 mg/dL High 9-24 [facility] Comment on above: Order Comment: Speci men Type: BLOOD SPECIMENOrdering Facility: [facility] Address: [address] [place] [address] Performed By: #### 2 4321-2 ####[facility] LABCLIA [id number] [place] [id number] [place] Basic metabolic 2000 panelon 03-08-2025 Anion gap [Moles/Vol] 15 mmol/L Normal 8-15 [facility] Comment on above: Order Comment: Speci men Type: BLOOD SPECIMENOrdering Facility: [facility] Address: [address] [place] [address] Performed By: #### 2 4321-2 ####[facility] LABCLIA [id number] [place] [id number] [place] Calcium [Mass/Vol] 9.0 mg/dL Normal 8.5-10.2 [facility] Comment on above: Order Comment: Speci men Type: BLOOD SPECIMENOrdering Facility: [facility] Address: [address] [place] [address] Performed By: #### 2 4321-2 ####[facility] LABCLIA [id number] [address] [address] [place] Chloride [Moles/Vol] 107 mmol/L Normal 98-107 [facility] Comment on above: Order Comment: Speci men Type: BLOOD SPECIMENOrdering Facility: [facility] Address: [address] [place], [place] [address] Performed By: #### 2 4321-2 ####[facility] LABCLIA [id number] [place] [id number] [place] CO2 [Moles/Vol] 13 mmol/L Low 22-30 [facility] Comment on above: Order Comment: Speci men Type: BLOOD SPECIMENOrdering Facility: [facility] Address: [address] [place] [address] Performed By: #### 2 4321-2 ####[facility] LABIA [id number] [place] [address] [place] Creatinine [Mass/Vol] 2.40 mg/dL High 0.73-1.22 [facility] Comment on above: Order Comment: Speci men Type: BLOOD SPECIMENOrdering Facility: [facility] Address: [address] [place] [address] Performed By: #### 2 4321-2 ####[facility] LABIA [id number] [place] [address] [place] Creatinine and Glomerular filtration rate.predicted panel (S/P/Bld) 32 mL/min/1.73m??? Low >=60 [facility] Comment on above: Order Comment: Speci men Type: BLOOD SPECIMENOrdering Facility: [facility] Address: [address] [place] [address] Result Comment: Marlen mated Glomerular Filtration Rate [...] actual GFR. Performed By: #### 2 4321-2 ####[facility] LABIA [id number] [place] [id number] [place] Glucose [Mass/Vol] 72 mg/dL Low 74-99 [facility] Comment on above: Order Comment: Speci men Type: BLOOD SPECIMENOrdering Facility: [facility] Address: [address] [id number] Result Comment: The [place] Diabetes Association (ADA) provides guidance for cutoff [...] Standards of Medical Care in Diabetes 2016, [place] [employer]. Diabetes Care. 2016.39(Suppl 1). Performed By: #### 2 4321-2 ####[facility] LABCLIA [id number] [place] [address] [place] Potassium [Moles/Vol] 4.2 mmol/L Normal 3.7-5.1 [facility] Comment on above: Order Comment: Speci men Type: BLOOD SPECIMENOrdering Facility: [facility] Address: [address] [place] [address] Performed By: #### 2 1-2 ####[facility] LABCLIA [id number] [place] [address] [place] Sodium [Moles/Vol] 135 mmol/L Low 136-144 [facility] Comment on above: Order Comment: Speci men Type: BLOOD SPECIMENOrdering Facility: [facility] Address: [address] [place] [address] Performed By: #### 2 1-2 ####[facility] LABCLIA [id number] [place] [address] [place] Urea nitrogen [Mass/Vol] 33 mg/dL High 9-24 [facility] Comment on above: Order Comment: Speci men Type: BLOOD SPECIMENOrdering Facility: [facility] Address: [address] [id number] Performed By: #### 2 4321-2 ####[facility] LABCLIA [id number] [address] [address] [place] Basic metabolic 2000 panelon 02-23-2025 Anion gap [Moles/Vol] 15 mmol/L Normal 8-15 [facility] Comment on above: Order Comment: Speci men Type: BLOOD SPECIMENOrdering Facility: [facility] Address: [address] [place] [address] Performed By: #### 2 4321-2 ####[facility] LABCLIA [id number] [place] [id number] [place] Calcium [Mass/Vol] 8.2 mg/dL Low 8.5-10.2 [facility] Comment on above: Order Comment: Speci men Type: BLOOD SPECIMENOrdering Facility: [facility] Address: [address] [place] [address] Performed By: #### 2 4321-2 ####[facility] LABCLIA [id number] [place] [address] [place] Chloride [Moles/Vol] 107 mmol/L Normal 98-107 [facility] Comment on above: Order Comment: Speci men Type: BLOOD SPECIMENOrdering Facility: [facility] Address: [address] [place] [address] Performed By: #### 2 4321-2 ####[facility] LABCLIA [id number] [place] [id number] [place] CO2 [Moles/Vol] 14 mmol/L Low 22-30 [facility] Comment on above: Order Comment: Speci men Type: BLOOD SPECIMENOrdering Facility: [facility] Address: [address] [place] [address] Performed By: #### 2 4321-2 ####[facility] LABCLIA [id number] [place] [id number] [place] Creatinine [Mass/Vol] 1.94 mg/dL High 0.73-1.22 [facility] Comment on above: Order Comment: Rose summers Type: BLOOD SPECIMENOrdering Facility: [facility] Address: [address] [place] [address] Performed By: #### 2 4321-2 ####[facility] LABCLIA [id number] [place] [address] [place] Creatinine and Glomerular filtration rate.predicted panel (S/P/Bld) 41 mL/min/1.73m??? Low >=60 [facility] Comment on above: Order Comment: Rose summers Type: BLOOD SPECIMENOrdering Facility: [facility] Address: [address] [place] [address] Result Comment: Marlen mated Glomerular Filtration Rate [...] actual GFR. Performed By: #### 2 4321-2 ####[facility] LABCLIA [id number] [place] [address] [place] Glucose [Mass/Vol] 86 mg/dL Normal 74-99 [facility] Comment on above: Order Comment: Rose summers Type: BLOOD SPECIMENOrdering Facility: [facility] Address: [address] [place] [address] Result Comment: The [place] Diabetes Association (ADA) provides guidance for cutoff [...] Standards of Medical Care in Diabetes 2016, [place] Diabetes Association. Diabetes Care. 2016.39(Suppl 1). Performed By: #### 2 4321-2 ####[facility] LABCLIA [id number] [address] [address] [place] Potassium [Moles/Vol] 4.1 mmol/L Normal 3.7-5.1 [facility] Comment on above: Order Comment: Speci men Type: BLOOD SPECIMENOrdering Facility: [facility] Address: [address] [place] [address] Performed By: #### 2 4321-2 ####[facility] LABCLIA [id number] [place] [id number] [place] Sodium [Moles/Vol] 136 mmol/L Normal 136-144 [facility] Comment on above: Order Comment: Speci men Type: BLOOD SPECIMENOrdering Facility: [facility] Address: [address] [place] [address] Performed By: #### 2 4321-2 ####[facility] LABCLIA [id number] [place] [id number] [place] Urea nitrogen [Mass/Vol] 27 mg/dL High 9-24 [facility] Comment on above: Order Comment: Speci men Type: BLOOD SPECIMENOrdering Facility: [facility] Address: [address] [place] [address] Performed By: #### 2 4321-2 ####[facility] LABCLIA [id number] [address] [address] [place] Basic metabolic 2000 panelon 02-08-2025 Anion gap [Moles/Vol] 13 mmol/L Normal 8-15 [facility] Comment on above: Order Comment: Speci men Type: BLOOD SPECIMENOrdering Facility: [facility] Address: [address] [place] [address] Performed By: #### 2 4321-2 ####[facility] LABCLIA [id number] [address] [place] [address] [place] Calcium [Mass/Vol] 8.4 mg/dL Low 8.5-10.2 [facility] Comment on above: Order Comment: Speci men Type: BLOOD SPECIMENOrdering Facility: [facility] Address: [address] [place] [address] Performed By: #### 2 4321-2 ####[facility] LABCLIA [id number] [place] [id number] [place] Chloride [Moles/Vol] 111 mmol/L High 98-107 [facility] Comment on above: Order Comment: Speci men Type: BLOOD SPECIMENOrdering Facility: [facility] Address: [address] [place] [address] Performed By: #### 2 4321-2 ####[facility] LABCLIA [id number] [place] [id number] [place] CO2 [Moles/Vol] 15 mmol/L Low 22-30 [facility] Comment on above: Order Comment: Speci men Type: BLOOD SPECIMENOrdering Facility: [facility] Address: [address] [place] [address] Performed By: #### 2 4321-2 ####[facility] LABCLIA [id number] [place] [id number] [place] Creatinine [Mass/Vol] 2.34 mg/dL High 0.73-1.22 [facility] Comment on above: Order Comment: Speci men Type: BLOOD SPECIMENOrdering Facility: [facility] Address: [address] [place], [place] [address] Performed By: #### 2 4321-2 ####[facility] LABCLIA [id number] [place] [id number] [place] Creatinine and Glomerular filtration rate.predicted panel (S/P/Bld) 33 mL/min/1.73m??? Low >=60 [facility] Comment on above: Order Comment: Rsoe summers Type: BLOOD SPECIMENOrdering Facility: [facility] Address: [address] [place] [address] Result Comment: Marlen mated Glomerular Filtration Rate [...] actual GFR. Performed By: #### 2 4321-2 ####[facility] LABIA [id number] [place] [address] [place] Glucose [Mass/Vol] 75 mg/dL Normal 74-99 [facility] Comment on above: Order Comment: Rose summers Type: BLOOD SPECIMENOrdering Facility: [facility] Address: [address] [place] [address] Result Comment: The [place] Diabetes Association (ADA) provides guidance for cutoff [...] Standards of Medical Care in Diabetes 2016, [place] [employer]. Diabetes Care. 2016.39(Suppl 1). Performed By: #### 2 4321-2 ####[facility] LABIA [id number] [place] [address] [place] Potassium [Moles/Vol] 3.5 mmol/L Low 3.7-5.1 [facility] Comment on above: Order Comment: Rose summers Type: BLOOD SPECIMENOrdering Facility: [facility] Address: [address] [place] [address] Performed By: #### 2 4321-2 ####[facility] LABCLIA [id number] [place] [id number] [place] Sodium [Moles/Vol] 139 mmol/L Normal 136-144 [facility] Comment on above: Order Comment: Speci men Type: BLOOD SPECIMENOrdering Facility: [facility] Address: [address] [place] [address] Performed By: #### 2 4321-2 ####[facility] LABIA [id number] [place] [id number] [place] Urea nitrogen [Mass/Vol] 24 mg/dL Normal 9-24 [facility] Comment on above: Order Comment: Speci men Type: BLOOD SPECIMENOrdering Facility: [facility] Address: [address] [place] [address] Performed By: #### 2 4321-2 ####[facility] LABIA [id number] [place] [id number] [place] CNPNon 02-03-2025 CNPN Telephone (CORSMN) FIRST,RAGHAVENDRA Zepeda ([id number]) 1970 M Date Time Provider Department 02/03/25 NICOLASA DENISE During your visit today, we recorded the following information about you: Callie Hall 02/03/2025 2:41 PM Signed [phone] Raghavendra Patient calling to go over ostomy output with the nurse. States if she doesn't need to call him, a [employer] message will be ok. Isela Parekh, RN 02/03/2025 3:30 PM Signed Mychart sent. Allergies [...] Status:Closed by CALLIE HALL on 02/03/25 Normal [facility] Basic metabolic 2000 panelon 02-01-2025 Anion gap [Moles/Vol] 13 mmol/L Normal 8-15 [facility] Comment on above: Order Comment: Speci men Type: BLOOD SPECIMENOrdering Facility: [facility] Address: [address] [place] [address] Performed By: #### 2 4321-2 ####[facility] LABCLIA [id number] [place] [address] [place] Calcium [Mass/Vol] 8.1 mg/dL Low 8.5-10.2 [facility] Comment on above: Order Comment: Speci men Type: BLOOD SPECIMENOrdering Facility: [facility] Address: [address] [place] [address] Performed By: #### 2 4321-2 ####[facility] LABCLIA [id number] [place] [id number] [place] Chloride [Moles/Vol] 110 mmol/L High 98-107 [facility] Comment on above: Order Comment: Speci men Type: BLOOD SPECIMENOrdering Facility: [facility] Address: [address] [place] [address] Performed By: #### 2 4321-2 ####[facility] LABCLIA [id number] [place] [id number] [place] CO2 [Moles/Vol] 16 mmol/L Low 22-30 [facility] Comment on above: Order Comment: Speci men Type: BLOOD SPECIMENOrdering Facility: [facility] Address: [address] [place] [address] Performed By: #### 2 4321-2 ####[facility] LABCLIA [id number] [place] [address] [place] Creatinine [Mass/Vol] 2.10 mg/dL High 0.73-1.22 [facility] Comment on above: Order Comment: Speci men Type: BLOOD SPECIMENOrdering Facility: [facility] Address: [address] [place] [address] Performed By: #### 2 4321-2 ####[facility] LABCLIA [id number] [place] [address] [place] Creatinine and Glomerular filtration rate.predicted panel (S/P/Bld) 37 mL/min/1.73m??? Low >=60 [facility] Comment on above: Order Comment: Speci men Type: BLOOD SPECIMENOrdering Facility: [facility] Address: [address] [place] [address] Result Comment: Marlen mated Glomerular Filtration Rate [...] actual GFR. Performed By: #### 2 4321-2 ####[facility] LABCLIA [id number] [address] [address] [place] Glucose [Mass/Vol] 77 mg/dL Normal 74-99 [facility] Comment on above: Order Comment: Speci men Type: BLOOD SPECIMENOrdering Facility: [facility] Address: [address] [place] [address] Result Comment: The [place] Diabetes Association (ADA) provides guidance for cutoff [...] Standards of Medical Care in Diabetes 2016, [place] [employer]. Diabetes Care. 2016.39(Suppl 1). Performed By: #### 2 4321-2 ####[facility] LABCLIA [id number] [facility] [address] [address] [place] Potassium [Moles/Vol] 4.2 mmol/L Normal 3.7-5.1 [facility] Comment on above: Order Comment: Speci men Type: BLOOD SPECIMENOrdering Facility: [facility] Address: [address] [id number] Performed By: #### 2 4321-2 ####[facility] LABCLIA [id number] [facility] [address] [address] [place] Sodium [Moles/Vol] 139 mmol/L Normal 136-144 [facility] Comment on above: Order Comment: Speci men Type: BLOOD SPECIMENOrdering Facility: [facility] Address: [address] [place] [address] Performed By: #### 2 4321-2 ####[facility] LABCLIA [id number] [address] [place] [facility] Urea nitrogen [Mass/Vol] 26 mg/dL High 9-24 [facility] Comment on above: Order Comment: Speci men Type: BLOOD SPECIMENOrdering Facility: [facility] Address: [address] [place] [address] Performed By: #### 2 4321-2 ####[facility] LABCLIA [id number] [address] [facility] CNPNon 01-27-2025 CNPN Telephone (CORSM[facility]) FIRST,RAGHAVENDRA Zepeda ([id number]) 1970 M Date Time Provider Department 01/27/25 NICOLASA DENISE During your visit today, we recorded the following information about you: Isela Parekh RN 01/27/2025 12:31 PM Signed Daily [...] swelling, mass and l*01/23/2023 Encounter Status:Closed by ISELA PAREKH on 01/27/25 Normal [facility] Basic metabolic 2000 panelon 01-25-2025 Anion gap [Moles/Vol] 13 mmol/L Normal 8-15 [facility] Comment on above: Order Comment: Speci men Type: BLOOD SPECIMENOrdering Facility: [facility] Address: [address] [place] [address] Performed By: #### 2 4321-2 ####[facility] LABCLIA [id number] [place] [address] [place] Calcium [Mass/Vol] 8.6 mg/dL Normal 8.5-10.2 [facility] Comment on above: Order Comment: Speci men Type: BLOOD SPECIMENOrdering Facility: [facility] Address: [address] [place] [address] Performed By: #### 2 4321-2 ####[facility] LABCLIA [id number] [place] [id number] [place] Chloride [Moles/Vol] 104 mmol/L Normal 98-107 [facility] Comment on above: Order Comment: Speci men Type: BLOOD SPECIMENOrdering Facility: [facility] Address: [address] [place] [address] Performed By: #### 2 4321-2 ####[facility] LABCLIA [id number] [place] [id number] [place] CO2 [Moles/Vol] 18 mmol/L Low 22-30 [facility] Comment on above: Order Comment: Speci men Type: BLOOD SPECIMENOrdering Facility: [facility] Address: [address] [place] [address] Performed By: #### 2 4321-2 ####[facility] LABCLIA [id number] [place] [address] [place] Creatinine [Mass/Vol] 2.32 mg/dL High 0.73-1.22 [facility] Comment on above: Order Comment: Speci men Type: BLOOD SPECIMENOrdering Facility: [facility] Address: [address] [place] [address] Performed By: #### 2 4321-2 ####[facility] LABIA [id number] [address] [place] Creatinine and Glomerular filtration rate.predicted panel (S/P/Bld) 33 mL/min/1.73m??? Low >=60 [facility] Comment on above: Order Comment: Speci men Type: BLOOD SPECIMENOrdering Facility: [facility] Address: [address] [place] [address] Result Comment: Marlen mated Glomerular Filtration Rate [...] Performed By: #### 2 4321-2 ####[facility] [id number] [place] [address] [place] Glucose [Mass/Vol] 107 mg/dL High 74-99 [facility] Comment on above: Order Comment: Speci men Type: BLOOD SPECIMENOrdering Facility: [facility] Address: [address] [place] [address] Result Comment: The [place] Diabetes Association (ADA) provides guidance for cutoff [...] Standards of Medical Care in Diabetes 2016, [place] [employer]. Diabetes Care. 2016.39(Suppl 1). Performed By: #### 2 4321-2 ####[facility] LABIA [id number] [place] [address] [place] Potassium [Moles/Vol] 3.4 mmol/L Low 3.7-5.1 [facility] Comment on above: Order Comment: Rafaeli men Type: BLOOD SPECIMENOrdering Facility: [facility] Address: [address] [place] [address] Performed By: #### 2 4321-2 ####[facility] [id number] [place] [id number] [place] Sodium [Moles/Vol] 135 mmol/L Low 136-144 [facility] Comment on above: Order Comment: Rafaeli men Type: BLOOD SPECIMENOrdering Facility: [facility] Address: [address], [place] [address] Performed By: #### 2 4321-2 ####[facility] LABCLIA [id number] [address] [address] [place] Urea nitrogen [Mass/Vol] 29 mg/dL High 9-24 [facility] Comment on above: Order Comment: Speci men Type: BLOOD SPECIMENOrdering Facility: [facility] Address: [address] [place] [address] Performed By: #### 2 4321-2 ####[facility] LABCLIA [id number] [address] [address] [place] Basic metabolic 2000 panelon 01-18-2025 Anion gap [Moles/Vol] 15 mmol/L Normal 8-15 [facility] Comment on above: Order Comment: Speci men Type: BLOOD SPECIMENOrdering Facility: [facility] Address: [address] [place] [address] Performed By: #### 2 4321-2 ####[facility] LABCLIA [id number] [address] [address] [place] Calcium [Mass/Vol] 8.2 mg/dL Low 8.5-10.2 [facility] Comment on above: Order Comment: Speci men Type: BLOOD SPECIMENOrdering Facility: [facility] Address: [address] [place], [place] [address] Performed By: #### 2 4321-2 ####[facility] LABCLIA [id number] [address] [address] [place] Chloride [Moles/Vol] 104 mmol/L Normal 98-107 [facility] Comment on above: Order Comment: Speci men Type: BLOOD SPECIMENOrdering Facility: [facility] Address: [address] [place], [place] [address] Performed By: #### 2 4321-2 ####[facility] LABCLIA [id number] [address] [address] [place] CO2 [Moles/Vol] 12 mmol/L Low 22-30 [facility] Comment on above: Order Comment: Speci men Type: BLOOD SPECIMENOrdering Facility: [facility] Address: [address] [place] [address] Performed By: #### 2 4321-2 ####[facility] LABCLIA [id number] [facility] [place] [id number] [place] Creatinine [Mass/Vol] 3.12 mg/dL High 0.73-1.22 [facility] Comment on above: Order Comment: Speci men Type: BLOOD SPECIMENOrdering Facility: [facility] Address: [address] [place] [address] Performed By: #### 2 4321-2 ####[facility] LABCLIA [id number] [place] [address] [place] Creatinine and Glomerular filtration rate.predicted panel (S/P/Bld) 23 mL/min/1.73m??? Low >=60 [facility] Comment on above: Order Comment: Speci men Type: BLOOD SPECIMENOrdering Facility: [facility] Address: [address] [place] [address] Result Comment: Marlen mated Glomerular Filtration Rate [...] actual GFR. Performed By: #### 2 4321-2 ####[facility] LABCLIA [id number] [place] [id number] [place] Glucose [Mass/Vol] 106 mg/dL High 74-99 [facility] Comment on above: Order Comment: Speci men Type: BLOOD SPECIMENOrdering Facility: [facility] Address: [address] [place] [address] Result Comment: The [place] Diabetes Association (ADA) provides guidance for cutoff [...] Standards of Medical Care in Diabetes 2016, [place] [employer]. Diabetes Care. 2016.39(Suppl 1). Performed By: #### 2 4321-2 ####[facility] LABCLIA [id number] [place] [address] [place] Potassium [Moles/Vol] 2.7 mmol/L Low 3.7-5.1 [facility] Comment on above: Order Comment: Speci men Type: BLOOD SPECIMENOrdering Facility: [facility] Address: [address] [place] [address] Performed By: #### 2 4321-2 ####[facility] LABIA [id number] [place] [address] [place] Sodium [Moles/Vol] 131 mmol/L Low 136-144 [facility] Comment on above: Order Comment: Speci men Type: BLOOD SPECIMENOrdering Facility: [facility] Address: [address] [place] [address] Performed By: #### 2 4321-2 ####[facility] LABCLIA [id number] [place] [id number] [place] Urea nitrogen [Mass/Vol] 55 mg/dL High 9-24 [facility] Comment on above: Order Comment: Speci men Type: BLOOD SPECIMENOrdering Facility: [facility] Address: [address] [place] [address] Performed By: #### 2 4321-2 ####[facility] LABCLIA [id number] [place] [id number] [facility] Paula 01-18-2025 CNPN Telephone (MELANIE) FIRSTRAGHAVENDRA ([id number]) 1970 M Date Time Provider Department 01/18/25 NICOLASA DENISE During your visit today, we recorded the following information about you: Mary Gonzalez 01/18/2025 3:45 PM Signed He is doing better with 1 Imodium, lomotil. This has slowed his ouput down considerably. Please call. Isela Parkeh RN 01/18/2025 4:39 PM Signed 2 bags [...] They will call with any further concerns. Isela Parekh, PEDRO LUIS 01/21/2025 2:43 PM Addendum Pt called back today to discuss current symptoms and output Output levels: 01/19: 59 01/20: 32 - not great appetite- felt full [...] 09/26/2022 Intra-ab (more content not included)... Normal [facility] Absolute lymphocyte countOrd ered By: Iker Richards on 01-15-2025 Lymphocytes Auto (Unsp spec) [#/Vol] 0.67 10*3/uL Low 0.83-4.51 [facility] Absolute neutrophil countOrd ered By: Iker Richards on 01-15-2025 Neutrophils (Bld) [#/Vol] 11.6 10*3/uL High 2.0-7.7 [facility] Anion gap in Serum or Plasma Ordered By: Iker Richards on 01-15-2025 Anion gap [Moles/Vol] 14 mmol/L - [facility] Automated lymphocyte count a s percentage of total leukocytesOrdered By: Iker Tejal on 01-15-2025 Lymphocytes/100 WBC Auto (Unsp spec) 4.9 % Low - [facility] BUN/creatinine ratioOrdered By: [facility]cyJakeIvan on 01-15-2025 Urea nitrogen/Creatinine [Mass ratio] 15.8 mg/mg - [facility] Basic Metabolic Profile (BMP )on 01-15-2025 BUN/CRE 15.8 RATIO Normal - [facility] Comment on above: Performed By: #### L 500.2500, L503.7505, L100.0100 #### [facility] [address] [place], [address] Performed By: #### L 500.2500, L100.0100 #### [facility] [address] [place], [address] Calcium [Mass/Vol] 8.6 mg/dL Normal 7.6-11.0 [facility] Comment on above: Performed By: #### L 500.2500, L503.7505, L100.0100 #### [facility] [address] [place], [address] Chloride [Moles/Vol] 109 mmol/L High 98-108 [facility] Comment on above: Performed By: #### L 500.2500, L503.7505, L100.0100 #### [facility] [address] [place], [address] CO2 [Moles/Vol] 7.1 mmol/L Invalid Interpretation Code 21.0-32.0 [facility] Comment on above: Result Comment: Crit ical Result(s) Called at: 2300 by: ANDREIA SIFUENTES TO DR. RICHARDS??Results read back by same. Performed By: #### L 500.2500, L503.7505, L100.0100 #### [facility] [address] [place], [address] Creatinine [Mass/Vol] 2.93 mg/dL High 0.70-1.20 [facility] Comment on above: Performed By: #### L 500.2500, L503.7505, L100.0100 #### [facility] [address] [place], [address] ECRCL 33.33 ml/min Low 50-250 [facility] Comment on above: Performed By: #### L 500.2500, L503.7505, L100.0100 #### [facility] [address] [place], [address] GAP 14 Normal 5-15 [facility] Comment on above: Performed By: #### L 500.2500, L503.7505, L100.0100 #### [facility] [address] [place], [address] GFR/1.73 sq M.predicted among non-blacks MDRD (S/P/Bld) [Vol rate/Area] 25 mL/min/{1.73_m2} Low >60 [facility] Comment on above: Result Comment: mL/m in/1.73m2 CKD-EPI Creatinine Equation (2020) Performed By: #### L 500.2500, L503.7505, L100.0100 #### [facility] [address] [place], [address] Glucose [Mass/Vol] 116 mg/dL High 70-99 [facility] Comment on above: Performed By: #### L 500.2500, L503.7505, L100.0100 #### [facility] [address] [place], [address] Potassium [Moles/Vol] 4.2 mmol/L Normal 3.3-5.1 [facility] Comment on above: Result Comment: Hemo lysis present, Results??could be affected. ?? Performed By: #### L 500.2500, L503.7505, L100.0100 #### [facility] [address] [place], [address] Sodium [Moles/Vol] 130 mmol/L Low 133-145 [facility] Comment on above: Performed By: #### L 500.2500, L503.7505, L100.0100 #### [facility] [address] [place], [address] Urea nitrogen [Mass/Vol] 46 mg/dL High 4-19 [facility] Comment on above: Performed By: #### L 500.2500, L503.7505, L100.0100 #### [facility] [address] [place], [address] Calcium [Mass/Vol] 9.0 mg/dL Normal 7.6-11.0 [facility] Comment on above: Performed By: #### L 500.2500, L100.0100 #### [facility] [address] [place], [address] Chloride [Moles/Vol] 106 mmol/L Normal 98-108 [facility] Comment on above: Performed By: #### L 500.2500, L100.0100 #### [facility] [address] [place], [address] CO2 [Moles/Vol] 6.5 mmol/L Invalid Interpretation Code 21.0-32.0 [facility] Comment on above: Result Comment: Crit ical Result(s) Called at: 2200 by: TIM DESHPANDE TO KERA MEIER??Results read back by same. Performed By: #### L 500.2500, L100.0100 #### [facility] [address] [place], [address] Creatinine [Mass/Vol] 3.02 mg/dL High 0.70-1.20 [facility] Comment on above: Performed By: #### L 500.2500, L100.0100 #### [facility] [address] [place], [address] ECRCL 32.34 ml/min Low 50-250 [facility] Comment on above: Performed By: #### L 500.2500, L100.0100 #### [facility] [address] [place], [address] GAP 16 High 5-15 [facility] Comment on above: Performed By: #### L 500.2500, L100.0100 #### [facility] [address] [place], [address] GFR/1.73 sq M.predicted among non-blacks MDRD (S/P/Bld) [Vol rate/Area] 24 mL/min/{1.73_m2} Low >60 [facility] Comment on above: Result Comment: mL/m in/1.73m2 CKD-EPI Creatinine Equation (2020) Performed By: #### L 500.2500, L100.0100 #### [facility] [address] [place], [address] Glucose [Mass/Vol] 115 mg/dL High 70-99 [facility] Comment on above: Performed By: #### L 500.2500, L100.0100 #### [facility] [address] [place], [address] Potassium [Moles/Vol] 3.7 mmol/L Normal 3.3-5.1 [facility] Comment on above: Result Comment: Hemo lysis present, Results??could be affected. ?? Performed By: #### L 500.2500, L100.0100 #### [facility] [address] [place], [address] Sodium [Moles/Vol] 128 mmol/L Low 133-145 [facility] Comment on above: Performed By: #### L 500.2500, L100.0100 #### [facility] [address] [place], [address] Urea nitrogen [Mass/Vol] 48 mg/dL High 4-19 [facility] Comment on above: Performed By: #### L 500.2500, L100.0100 #### [facility] [address] [place], [address] Basophil percentageOrdered B y: Iker Richards on 01-15-2025 Basophils/100 WBC (Bld) 0.2 % 0-1 [facility] CBC W/Diff, Automatedon 12-29 Absolute Lymph 0.67 X10 3/uL Low 0.83-4.51 [facility] Comment on above: Performed By: #### L 500.2500, L100.0100 #### [facility] [address] [place], [address] Absolute Neut 11.6 X10 3/uL High 2.0-7.7 [facility] Comment on above: Performed By: #### L 500.2500, L100.0100 #### [facility] [address] [place], [address] Basophils/100 WBC (Bld) 0.2 % Normal 0-1 [facility] Comment on above: Performed By: #### L 500.2500, L100.0100 #### [facility] [address] [place], [address] Eosinophils/100 WBC (Bld) 0.3 % Normal 0-5 [facility] Comment on above: Performed By: #### L 500.2500, L100.0100 #### [facility] [address] [place], [address] Erythrocyte distribution width (RBC) [Ratio] 15.9 % High 11.6-14.6 [facility] Comment on above: Performed By: #### L 500.2500, L100.0100 #### [facility] [address] [place], [address] Hematocrit (Bld) [Volume fraction] 35.2 % Low 40-54 [facility] Comment on above: Performed By: #### L 500.2500, L100.0100 #### [facility] [address] [place], [address] Hemoglobin (Bld) [Mass/Vol] 12.0 g/dL Low 13.0-16.5 [facility] Comment on above: Performed By: #### L 500.2500, L100.0100 #### [facility] [address] [place], [address] IG% 0.400 Normal 0.0-0.9 [facility] Comment on above: Result Comment: IG% - Immature Granulocytes (promyelocytes, myelocytes and metamyelocytes) > 1% indicates that a LEFT SHIFT is Present. Performed By: #### L 500.2500, L100.0100 #### [facility] [address] [place], [address] Lymphocytes/100 WBC (Bld) 4.9 % Low 19-41 [facility] Comment on above: Performed By: #### L 500.2500, L100.0100 #### [facility] [address] [place], [address] MCH (RBC) [Entitic mass] 31.9 pg Normal 27.0-32.0 [facility] Comment on above: Performed By: #### L 500.2500, L100.0100 #### [facility] [address] [place], [address] MCHC (RBC) [Mass/Vol] 34.1 g/dL Normal 32-36 [facility] Comment on above: Performed By: #### L 500.2500, L100.0100 #### [facility] [address] [place], [address] MCV (RBC) [Entitic vol] 93.6 fL Normal 80-94 [facility] Comment on above: Performed By: #### L 500.2500, L100.0100 #### [facility] [address] [place], [address] Monocytes/100 WBC (Bld) 9.5 % Normal 0-10 [facility] Comment on above: Performed By: #### L 500.2500, L100.0100 #### [facility] [address] [place], [address] Neutrophils/100 WBC (Bld) 84.7 % High 47-70 [facility] Comment on above: Performed By: #### L 500.2500, L100.0100 #### [facility] [address] [place], [address] Nucleated RBC (Bld) [#/Vol] 0.1 10*3/uL Normal 0-5 [facility] Comment on above: Performed By: #### L 500.2500, L100.0100 #### [facility] [address] [place], [address] Platelet mean volume (Bld) [Entitic vol] 8.8 fL Normal 6.2-12.0 [facility] Comment on above: Performed By: #### L 500.2500, L100.0100 #### [facility] [address] [place], [address] Platelets (Bld) [#/Vol] 344 10*3/uL Normal 150-450 [facility] Comment on above: Performed By: #### L 500.2500, L100.0100 #### [facility] [address] [place], [address] RBC (Bld) [#/Vol] 3.76 10*6/uL Low 4.6-6.2 [facility] Comment on above: Performed By: #### L 500.2500, L100.0100 #### [facility] [address] [place], [address] RDW SD 54.4 fl High 35.1-43.9 [facility] Comment on above: Performed By: #### L 500.2500, L100.0100 #### [facility] [address] [place], [address] WBC (Bld) [#/Vol] 13.7 10*3/uL High 4.4-11.0 [facility] Comment on above: Performed By: #### L 500.2500, L100.0100 #### [facility] [address] [place], [address] [facility] FIRST,RAGHAVENDRA Zepeda ([id number]) 1970 M Date Time Provider Department 01/15/25 NICOLASA DENISE During your visit today, we recorded the following information about you: Mary Gonzalez 01/15/2025 1:15 PM Signed Patient calling to say his output was 78 ouces over 24 hours. Please call him back after 230 p, when he get off work please Isela Parekh RN 01/15/2025 3:47 PM Signed Patient [...] Status:Closed by MARY GONZALEZ on 01/15/25 Normal [facility] Carbon dioxide, total [Moles /volume] in Central venous bloodOrdered By: Iker Richards on 01-15-2025 CO2 [Moles/Vol] 7.1 mmol/L Low 21.0-32.0 [facility] Comment on above: Critical Result(s) C alled at: 2300 by: ANDREIA SIFUENTES TO DR. RICHARDS Results read back by same. Chloride assayOrdered By: Choco Richards on 01-15-2025 Chloride [Moles/Vol] 109 mmol/L High 98-108 [facility] Emergency Department Summary on 01-15-2025 Emergency Department Summary [facility] Medical Records Department [address] [place] [address] Emergency Department Summary 01/15/25 MR#: [id number] Acct: [id number] Name: RAGHAVENDRA BURROWS Rep #: [id number] : 1970 54 From: Iker Richards DO [...] hold of his surgeon Dr. Buenrostro at [facility]. He wanted the patient to present to [...] intact Psych: Cooperative, appropriate mood and affect [facility] Medical History Cancer of appendix [...] hold of his surgeon Dr. Buenrostro at [facility]. He wanted the patient to present to [...] of a (more content not included)... Normal [facility] Eosinophil percentageOrdered By: Ikerabe Richards on 01-15-2025 Eosinophils/100 WBC (Bld) 0.3 % 0-5 [facility] Erythrocyte distribution wid th (RBC) [Ratio][facility] Erythrocyte distribution width (RBC) [Entitic vol] 54.4 fL High 35.1-43.9 [facility] Erythrocyte distribution wid th ratioOrdered By: [facility] on 01-15-2025 Erythrocyte distribution width (RBC) [Ratio] 15.9 % High 11.6-14.6 [facility] Erythrocyte distribution wid th standard deviationOrdered By: [facility] Erythrocyte distribution width (RBC) [Ratio] 54.4 fl High 35.1-43.9 [facility] Estimation of creatinine emma aranceOrdered By: Iker Richards on 01-15-2025 Estimated Creatinine Clearance Calc 33.33 ml/min Low 50-250 [facility] GFR/1.73 sq M.predicted jaime g non-blacks MDRD (S/P/Bld) [Vol rate/Area]Ordered By: Iker Richards on 01-15-2025 Estimated GFR (MDRD) Non-Af Amer 25 Low >60 [facility] Comment on above: mL/min/1.73m2 CKD-EP I Creatinine Equation (2020) Glomerular filtration rate ( GFR) estimation/1.73 sq m using serum, plasma, or whole bOrdered By: Iker Richards on 01-15-2025 GFR/1.73 sq M.predicted among non-blacks MDRD (S/P/Bld) [Vol rate/Area] 25 mL/min/{1.73_m2} Low >60 [facility] Comment on above: mL/min/1.73m2 CKD-EP I Creatinine Equation (2020) Hematocrit Auto (Bld) [Volum e fraction]Ordered By: Iker Richards on 01-15-2025 Hematocrit (Bld) [Volume fraction] 35.2 % Low 40-54 [facility] Hemoglobin measurementOrdere d By: Iker Richards on 01-15-2025 Hemoglobin (Bld) [Mass/Vol] 12.0 g/dL Low 13.0-16.5 [facility] Immature granulocytes/100 WB C Auto (Bld)Ordered By: Iker Richards on 01-15-2025 Immature granulocytes/100 WBC (Bld) 0.400 % 0.0-0.9 [facility] Comment on above: IG% - Immature Granu locytes (promyelocytes, myelocytes and metamyelocytes) > 1% indicates that a LEFT SHIFT is Present. Lymphocytes Auto (Unsp spec) [#/Vol]Ordered By: Iker Richards on 01-15-2025 Lymphocytes (Bld) [#/Vol] 0.67 10*3/uL Low 0.83-4.51 [facility] Lymphocytes/100 WBC Auto (Un sp spec)Ordered By: Iker Richards on 01-15-2025 Lymphocytes/100 WBC (Bld) 4.9 % Low 19-41 [facility] MCV (mean corpuscular volume ) determinationOrdered By: Iker Richards on 01-15-2025 MCV (RBC) [Entitic vol] 93.6 fL 80-94 [facility] Mean corpuscular hemoglobin (MCH) determinationOrdered By: Iker Richards on 01-15-2025 MCH (RBC) [Entitic mass] 31.9 pg 27.0-32.0 [facility] Mean corpuscular hemoglobin concentration (MCHC) determinationOrdered By: Iker Richards on 01-15-2025 MCHC (RBC) [Mass/Vol] 34.1 g/dL 32-36 [facility] Mean platelet volume determi nationOrdered By: Iker Richards on 01-15-2025 Platelet mean volume (Bld) [Entitic vol] 8.8 fL 6.2-12.0 [facility] Monocyte percentageOrdered B y: Iker Richards on 01-15-2025 Monocytes/100 WBC (Bld) 9.5 % 0-10 [facility] Neutrophil percentageOrdered By: Iker Richards on 01-15-2025 Neutrophils/100 WBC (Bld) 84.7 % High 47-70 [facility] Nucleated red blood cell per centageOrdered By: Iker Richards on 01-15-2025 Nucleated RBC/100 WBC (Bld) [Ratio] 0.1 % 0-5 [facility] Platelet countOrdered By: Choco Richards on 01-15-2025 Platelets (Bld) [#/Vol] 344 10*3/uL 150-450 [facility] Potassium (Unsp spec) [Mass/ Vol]Ordered By: Iker Richards on 01-15-2025 Potassium [Moles/Vol] 4.2 mmol/L 3.3-5.1 [facility] Comment on above: Hemolysis present, R esults could be affected. Potassium measurement (mass/ volume)Ordered By: Iker Richards on 01-15-2025 Potassium (Unsp spec) [Mass/Vol] 4.2 mmol/L 3.3-5.1 [facility] Comment on above: Hemolysis present, R esults could be affected. RBC Auto (Bld) [#/Vol]Ordere d By: Iker Richards on 01-15-2025 RBC (Bld) [#/Vol] 3.76 10*6/uL Low 4.6-6.2 [facility] Serum creatinine measurement (mass/volume)Ordered By: Iker Richards on 01-15-2025 Creatinine [Mass/Vol] 2.93 mg/dL High 0.70-1.20 [facility] Serum glucose measurement (m ass/volume)Ordered By: Iker Richards on 01-15-2025 Glucose [Mass/Vol] 116 mg/dL High 70-99 [facility] Serum or plasma calcium tran urement (mass/volume)Ordered By: Iker Love on 01-15-2025 Calcium [Mass/Vol] 8.6 mg/dL 7.6-11.0 [facility] Serum or plasma urea nitroge n measurement (mass/volume)Ordered By: Iker Richards on 01-15-2025 Urea nitrogen [Mass/Vol] 46 mg/dL High 4-19 [facility] Sodium levelOrdered By: Vaibhav iRchards on 01-15-2025 Sodium [Moles/Vol] 130 mmol/L Low 133-145 [facility] White blood cell (WBC) count Ordered By: Iker Richards on 01-15-2025 WBC (Bld) [#/Vol] 13.7 10*3/uL High 4.4-11.0 [facility] CNPNon 01-14-2025 [facility] Telephone ([employer]) FIRST,RAGHAVENDRA Zepeda ([id number]) 1970 M Date Time Provider Department 01/14/25 NICOLASA DENISE During your visit today, we recorded the following information about you: Isela Parekh, RN 01/14/2025 10:54 AM Signed Left regarding mychart message. Requested a call back to discuss symptoms/output. Isela Parekh RN 01/14/2025 3:21 PM Signed Patient [...] swelling, mass and l*01/23/2023 Encounter Status:Closed by ISELA PAREKH on 01/14/25 Normal [facility] Basic metabolic 2000 panelon 01-11-2025 Anion gap [Moles/Vol] 13 mmol/L Normal 8-15 [facility] Comment on above: Order Comment: Speci men Type: BLOOD SPECIMEN Ordering Facility: [facility] Address: [address] [place] [address] Performed By: #### 2 4321-2 #### [facility] CLIA [id number] [address] [place] [address] [place] Calcium [Mass/Vol] 9.7 mg/dL Normal 8.5-10.2 [facility] Comment on above: Order Comment: Speci men Type: BLOOD SPECIMEN Ordering Facility: [facility] Address: [address] [place] [address] Performed By: #### 2 4321-2 #### [facility] CLIA [id number] [address] [place] [address] [place] Chloride [Moles/Vol] 107 mmol/L Normal 98-107 [facility] Comment on above: Order Comment: Speci men Type: BLOOD SPECIMEN Ordering Facility: [facility] Address: [address] [place] [address] Performed By: #### 2 4321-2 #### [facility] CLIA [id number] [address] [place] [address] [place] CO2 [Moles/Vol] 11 mmol/L Low 22-30 [facility] Comment on above: Order Comment: Speci men Type: BLOOD SPECIMEN Ordering Facility: [facility] Address: [address] [place] [address] Performed By: #### 2 4321-2 #### [facility] CLIA [id number] [facility] [place] [id number] [place] Creatinine [Mass/Vol] 3.01 mg/dL High 0.73-1.22 [facility] Comment on above: Order Comment: Rose summers Type: BLOOD SPECIMEN Ordering Facility: [facility] Address: [address] [place] [address] Performed By: #### 2 4321-2 #### [facility] CLIA [id number] [address] [place] [address] [place] Creatinine and Glomerular filtration rate.predicted panel (S/P/Bld) 24 mL/min/1.73m??? Low >=60 [facility] Comment on above: Order Comment: Rose summers Type: BLOOD SPECIMEN Ordering Facility: [facility] Address: [address] [place] [address] Result Comment: Marlen mated Glomerular Filtration Rate [...] GFR. Performed By: #### 2 4321-2 #### [facility] CLIA [id number] [address] [place] [address] [place] Glucose [Mass/Vol] 90 mg/dL Normal 74-99 [facility] Comment on above: Order Comment: Rose summers Type: BLOOD SPECIMEN Ordering Facility: [facility] Address: [address] [place] [address] Result Comment: The [place] [employer] (ADA) provides guidance for cutoff [...] Standards of Medical Care in Diabetes 2016, [place] [employer]. Diabetes Care. 2016.39(Suppl 1). Performed By: #### 2 4321-2 #### [facility] CLIA [id number] [address] [place] [address] [place] Potassium [Moles/Vol] 4.1 mmol/L Normal 3.7-5.1 [facility] Comment on above: Order Comment: Speci men Type: BLOOD SPECIMEN Ordering Facility: [facility] Address: [address] [place] [address] Performed By: #### 2 4321-2 #### [facility] CLIA [id number] [address] [place] [address] [place] Sodium [Moles/Vol] 131 mmol/L Low 136-144 [facility] Comment on above: Order Comment: Speci men Type: BLOOD SPECIMEN Ordering Facility: [facility] Address: [address] [place] [address] Performed By: #### 2 4321-2 #### [facility] CLIA [id number] [address] [place] [address] [place] Urea nitrogen [Mass/Vol] 40 mg/dL High 9-24 [facility] Comment on above: Order Comment: Speci men Type: BLOOD SPECIMEN Ordering Facility: [facility] Address: [address] [place] [address] Performed By: #### 2 4321-2 #### [facility] CLIA [id number] [address] [place] [address] [place] Basic metabolic 2000 panelon 01-04-2025 Anion gap [Moles/Vol] 13 mmol/L Normal 8-15 [facility] Comment on above: Order Comment: Speci men Type: BLOOD SPECIMENOrdering Facility: [facility] Address: [address] [place] [address] Performed By: #### 2 4321-2 ####[facility] [facility] LABCLIA [id number] [address] [place] [address] [place] Calcium [Mass/Vol] 8.9 mg/dL Normal 8.5-10.2 [facility] Comment on above: Order Comment: Speci men Type: BLOOD SPECIMENOrdering Facility: [facility] Address: [address] [place], [place] [address] Performed By: #### 2 4321-2 ####[facility] LABCLIA [id number] [address] [address] [place] Chloride [Moles/Vol] 111 mmol/L High 98-107 [facility] Comment on above: Order Comment: Speci men Type: BLOOD SPECIMENOrdering Facility: [facility] Address: [address] [place], [place] [address] Performed By: #### 2 4321-2 ####[facility] LABCLIA [id number] [address] [address] [place] CO2 [Moles/Vol] 11 mmol/L Low 22-30 [facility] Comment on above: Order Comment: Speci men Type: BLOOD SPECIMENOrdering Facility: [facility] Address: [address] [place], [place] [address] Performed By: #### 2 4321-2 ####[facility] LABCLIA [id number] [facility] [address] [address] [place] Creatinine [Mass/Vol] 2.47 mg/dL High 0.73-1.22 [facility] Comment on above: Order Comment: Speci men Type: BLOOD SPECIMENOrdering Facility: [facility] Address: [address] [place] [address] Performed By: #### 2 4321-2 ####[facility] LABCLIA [id number] [address] [address] [place] Creatinine and Glomerular filtration rate.predicted panel (S/P/Bld) 31 mL/min/1.73m??? Low >=60 [facility] Comment on above: Order Comment: Rose summers Type: BLOOD SPECIMENOrdering Facility: [facility] Address: [address] [place] [address] Result Comment: Marlen mated Glomerular Filtration Rate [...] actual GFR. Performed By: #### 2 4321-2 ####[facility] LABCLIA [id number] [place] [address] [place] Glucose [Mass/Vol] 110 mg/dL High 74-99 [facility] Comment on above: Order Comment: Rose summers Type: BLOOD SPECIMENOrdering Facility: [facility] Address: [address] [place] [address] Result Comment: The [place] Diabetes Association (ADA) provides guidance for cutoff [...] Standards of Medical Care in Diabetes 2016, [place] [employer]. Diabetes Care. 2016.39(Suppl 1). Performed By: #### 2 4321-2 ####[facility] LABCLIA [id number] [place] [id number] [place] Potassium [Moles/Vol] 3.7 mmol/L Normal 3.7-5.1 [facility] Comment on above: Order Comment: Speci men Type: BLOOD SPECIMENOrdering Facility: [facility] Address: [address] [place] [address] Performed By: #### 2 4321-2 ####[facility] LABCLIA [id number] [address] [address] [place] Sodium [Moles/Vol] 135 mmol/L Low 136-144 [facility] Comment on above: Order Comment: Speci men Type: BLOOD SPECIMENOrdering Facility: [facility] Address: [address] [place] [address] Performed By: #### 2 4321-2 ####[facility] LABCLIA [id number] [place] [address] [place] Urea nitrogen [Mass/Vol] 34 mg/dL High 9-24 [facility] Comment on above: Order Comment: Speci men Type: BLOOD SPECIMENOrdering Facility: [facility] Address: [address] [place] [address] Performed By: #### 2 4321-2 ####[facility] LABCLIA [id number] [place] [id number] [place] Basic metabolic 2000 panelon 12-28-2024 Anion gap [Moles/Vol] 13 mmol/L Normal 8-15 [facility] Comment on above: Order Comment: Speci men Type: BLOOD SPECIMENOrdering Facility: [facility] Address: [address] [place] [address] Performed By: #### 2 4321-2 ####[facility] LABCLIA [id number] [place] [id number] [place] Calcium [Mass/Vol] 9.1 mg/dL Normal 8.5-10.2 [facility] Comment on above: Order Comment: Speci men Type: BLOOD SPECIMENOrdering Facility: [facility] Address: [address] [place] [address] Performed By: #### 2 4321-2 ####[facility] LABCLIA [id number] [place] [id number] [place] Chloride [Moles/Vol] 108 mmol/L High 98-107 [facility] Comment on above: Order Comment: Speci men Type: BLOOD SPECIMENOrdering Facility: [facility] Address: [address] [place] [address] Performed By: #### 2 4321-2 ####[facility] LABCLIA [id number] [place] [id number] [place] CO2 [Moles/Vol] 12 mmol/L Low 22-30 [facility] Comment on above: Order Comment: Speci men Type: BLOOD SPECIMENOrdering Facility: [facility] Address: [address] [place] [address] Performed By: #### 2 4321-2 ####[facility] LABCLIA [id number] [place] [address] [place] Creatinine [Mass/Vol] 2.76 mg/dL High 0.73-1.22 [facility] Comment on above: Order Comment: Speci men Type: BLOOD SPECIMENOrdering Facility: [facility] Address: [address] [place] [address] Performed By: #### 2 4321-2 ####[facility] LABIA [id number] [address] [facility] Creatinine and Glomerular filtration rate.predicted panel (S/P/Bld) 27 mL/min/1.73m??? Low >=60 [facility] Comment on above: Order Comment: Speci men Type: BLOOD SPECIMENOrdering Facility: [facility] Address: [address] [place] [address] Result Comment: Marlen mated Glomerular Filtration Rate [...] Performed By: #### 2 4321-2 ####[facility] [id number] [place] [address] [place] Glucose [Mass/Vol] 91 mg/dL Normal 74-99 [facility] Comment on above: Order Comment: Speci men Type: BLOOD SPECIMENOrdering Facility: [facility] Address: [address] [place] [address] Result Comment: The [place] Diabetes Association (ADA) provides guidance for cutoff [...] Standards of Medical Care in Diabetes 2016, [place] [employer]. Diabetes Care. 2016.39(Suppl 1). Performed By: #### 2 4321-2 ####[facility] LABIA [id number] [place] [address] [place] Potassium [Moles/Vol] 3.2 mmol/L Low 3.7-5.1 [facility] Comment on above: Order Comment: Rose men Type: BLOOD SPECIMENOrdering Facility: [facility] Address: [address] [place] [address] Performed By: #### 2 4321-2 ####[facility] [id number] [place] [address] [place] Sodium [Moles/Vol] 133 mmol/L Low 136-144 [facility] Comment on above: Order Comment: Rafaeli men Type: BLOOD SPECIMENOrdering Facility: [facility] Address: [address] [place] [address] Performed By: #### 2 4321-2 ####[facility] LABCLIA [id number] [address] [address] [place] Urea nitrogen [Mass/Vol] 43 mg/dL High 9-24 [facility] Comment on above: Order Comment: Speci men Type: BLOOD SPECIMENOrdering Facility: [facility] Address: [address] [place], [place] [address] Performed By: #### 2 4321-2 ####[facility] LABCLIA [id number] [place] [id number] [place] Basic metabolic 2000 panelon 12-21-2024 Anion gap [Moles/Vol] 13 mmol/L Normal 8-15 [facility] Comment on above: Order Comment: Speci men Type: BLOOD SPECIMENOrdering Facility: [facility] Address: [address] [place], [place] [address] Performed By: #### 2 4321-2 ####[facility] LABCLIA [id number] [place] [id number] [place] Calcium [Mass/Vol] 10.4 mg/dL High 8.5-10.2 [facility] Comment on above: Order Comment: Speci men Type: BLOOD SPECIMENOrdering Facility: [facility] Address: [address] [place], [place] [address] Performed By: #### 2 4321-2 ####[facility] LABCLIA [id number] [address] [address] [place] Chloride [Moles/Vol] 105 mmol/L Normal 98-107 [facility] Comment on above: Order Comment: Speci men Type: BLOOD SPECIMENOrdering Facility: [facility] Address: [address] [place], [place] [address] Performed By: #### 2 4321-2 ####[facility] LABCLIA [id number] [address] [address] [place] CO2 [Moles/Vol] 10 mmol/L Low 22-30 [facility] Comment on above: Order Comment: Speci men Type: BLOOD SPECIMENOrdering Facility: [facility] Address: [address] [place] [address] Performed By: #### 2 4321-2 ####[facility] LABCLIA [id number] [place] [id number] [place] Creatinine [Mass/Vol] 2.90 mg/dL High 0.73-1.22 [facility] Comment on above: Order Comment: Speci men Type: BLOOD SPECIMENOrdering Facility: [facility] Address: [address] [place] [address] Performed By: #### 2 4321-2 ####[facility] LABIA [id number] [place] [address] [place] Creatinine and Glomerular filtration rate.predicted panel (S/P/Bld) 25 mL/min/1.73m??? Low >=60 [facility] Comment on above: Order Comment: Speci men Type: BLOOD SPECIMENOrdering Facility: [facility] Address: [address] [place] [address] Result Comment: Marlen mated Glomerular Filtration Rate [...] actual GFR. Performed By: #### 2 4321-2 ####[facility] LABCLIA [id number] [place] [id number] [place] Glucose [Mass/Vol] 102 mg/dL High 74-99 [facility] Comment on above: Order Comment: Speci men Type: BLOOD SPECIMENOrdering Facility: [facility] Address: [address], [place] [address] Result Comment: The [place] Diabetes Association (ADA) provides guidance for cutoff [...] Standards of Medical Care in Diabetes 2016, [place] [employer]. Diabetes Care. 2016.39(Suppl 1). Performed By: #### 2 4321-2 ####[facility] LABCLIA [id number] [place] [address] [place] Potassium [Moles/Vol] 4.4 mmol/L Normal 3.7-5.1 [facility] Comment on above: Order Comment: Speci men Type: BLOOD SPECIMENOrdering Facility: [facility] Address: [address] [place] [address] Performed By: #### 2 4321-2 ####[facility] LABIA [id number] [place] [address] [place] Sodium [Moles/Vol] 128 mmol/L Low 136-144 [facility] Comment on above: Order Comment: Speci men Type: BLOOD SPECIMENOrdering Facility: [facility] Address: [address] [place] [address] Performed By: #### 2 4321-2 ####[facility] LABIA [id number] [place] [id number] [place] Urea nitrogen [Mass/Vol] 42 mg/dL High 9-24 [facility] Comment on above: Order Comment: Speci men Type: BLOOD SPECIMENOrdering Facility: [facility] Address: [address] [place] [address] Performed By: #### 2 4321-2 ####[facility] LABCLIA [id number] LETICIA HOLDEN [address] [address] [place] CNOVon 12-21-2024 CNOV Office Visit (INTMWS ) RAGHAVENDRA BURROWS ([id number]) 1970 M Date Time Provider Department 12/21/24 2:40 PM HARJEET BERNARD INTMWS During your visit today, we recorded the following information about you: Pulse Respiration Blood pressure Weight 103/minute 16/minute 104/75 92.9 kg Harjeet Bernard MD 12/21/2024 7:51 PM Signed This note was created using Relevvant. Subjective Raghavendra Burrows is a 54 year old male. Patient presents with: F/U 6 Month SUBJECTIVE: Raghavendra Burrows is a 54 year old year [...] and regul (more content not included)... [facility] (INTMWS) FIRST,RAGHAVENDRA Zepeda ([id number]) 1970 M Date Time Provider Department 12/17/24 HARJEET BERNARD INTMWS During your visit today, we recorded the following information about you: Shwetha Barraza RN 12/17/2024 10:40 AM Signed Aishwarya Stator Winder with [place] [facility] called to reports that the Pt has an RN Health Pin Chaser [facility] [place] (female) ph. [phone]. She wanted to give provider this information [...] List As Of Date 12/17/2024 Noted Resolved AMBORSE on CPAP [G47.33] 02/18/2006 Abnormal weight gain [...] swelling, mass and l*01/23/2023 Encounter Status:Closed by SHWETHA BARRAZA on 12/17/24 Normal [facility] Anion gap in Serum or Plasma Ordered By: Mk Jc on 12-16-2024 Anion gap [Moles/Vol] 12 mmol/L 02-11 [facility] BUN/creatinine ratioOrdered By: Mk Jc on 12-16-2024 Urea nitrogen/Creatinine [Mass ratio] 17.7 mg/mg 07-19 [facility] Basic Metabolic Profile (BMP )on 12-16-2024 BUN/CRE 17.7 RATIO Normal 10-20 [facility] Comment on above: Performed By: #### L 500.2500, L503.7505, L100.0100 #### [facility] [address] [place], [address] Calcium [Mass/Vol] 8.5 mg/dL Normal 7.6-11.0 [facility] Comment on above: Performed By: #### L 500.2500, L503.7505, L100.0100 #### [facility] [address] [place], [address] Chloride [Moles/Vol] 113 mmol/L High 98-108 [facility] Comment on above: Performed By: #### L 500.2500, L503.7505, L100.0100 #### [facility] [address] [place], [address] CO2 [Moles/Vol] 10.2 mmol/L Low 21.0-32.0 [facility] Comment on above: Performed By: #### L 500.2500, L503.7505, L100.0100 #### [facility] [address] [place], [address] Creatinine [Mass/Vol] 1.83 mg/dL High 0.70-1.20 [facility] Comment on above: Performed By: #### L 500.2500, L503.7505, L100.0100 #### [facility] [address] [place], [address] ECRCL 53.36 ml/min Normal 50-250 [facility] Comment on above: Performed By: #### L 500.2500, L503.7505, L100.0100 #### [facility] [address] [place], [address] GAP 12 Normal 5-15 [facility] Comment on above: Performed By: #### L 500.2500, L503.7505, L100.0100 #### [facility] [address] [place], [address] GFR/1.73 sq M.predicted among non-blacks MDRD (S/P/Bld) [Vol rate/Area] 44 mL/min/{1.73_m2} Low >60 [facility] Comment on above: Result Comment: mL/m in/1.73m2 CKD-EPI Creatinine Equation (2020) Performed By: #### L 500.2500, L503.7505, L100.0100 #### [facility] [address] [place], [address] Glucose [Mass/Vol] 97 mg/dL Normal 70-99 [facility] Comment on above: Performed By: #### L 500.2500, L503.7505, L100.0100 #### [facility] [address] [place], [address] Potassium [Moles/Vol] 3.3 mmol/L Normal 3.3-5.1 [facility] Comment on above: Performed By: #### L 500.2500, L503.7505, L100.0100 #### [facility] [address] [place], [address] Sodium [Moles/Vol] 135 mmol/L Normal 133-145 [facility] Comment on above: Performed By: #### L 500.2500, L503.7505, L100.0100 #### [facility] [address] [place], [address] Urea nitrogen [Mass/Vol] 32 mg/dL High 4-19 [facility] Comment on above: Performed By: #### L 500.2500, L503.7505, L100.0100 #### [facility] [address] [place], [address] C. difficile DNA MONICA+probe Q l (Unsp spec)Ordered By: Antonette Perera on 12-16-2024 Clostridioides difficile (PCR) [facility] CDIFF (PCR)on 12-16-2024 CDIFF Is the patient recei ving laxatives? N New/unexplained onset of 3 or more stools in past 24 hrs? Y Pending 027 027 NAP1-B1 Presumptive Negative *for epidemiolologic???use C. Diff PCR Negative- No toxigenic C. Diff Detected Normal [facility] Comment on above: Performed By: #### M 100.6796, M100.637 ####[facility] [id number] [facility] [place], [place], [address] Carbon dioxide, total [Moles /volume] in Central venous bloodOrdered By: Mk Jc on 12-16-2024 CO2 [Moles/Vol] 10.2 mmol/L Low 21.0-32.0 [facility] Chloride assayOrdered By: Celeste Jc on 12-16-2024 Chloride [Moles/Vol] 113 mmol/L High 98-108 [facility] Clostridium difficile detect ion by polymerase chain reactionOrdered By: Antonette Perera on 12-16-2024 C. difficile DNA MONICA+probe Ql (Unsp spec) [facility] Discharge Instructionon 11-28 Discharge Instruction [facility] Medical Records Department [address] [place] [address] Instructions for Home/Discharge Instructions 12/16/24 1118 MR#: [id number] Acct: [id number] Name: RAGHAVENDRA BURROWS Rep #: [id number] : 1970 54 From: Mk Jc DO [...] CC: Dr. Harjeet Bernard MD Signed Normal [facility] ENTERIC PATHOGEN PANEL STOOL on 12-16-2024 EP [...] VIBRIO Not Detected Yersinia Not Detected Normal [facility] Comment on above: Performed By: #### M 100.1090, M100.637 ####[facility] [id number] [place], [place], [address] Estimation of creatinine emma aranceOrdered By: Mk Jc on 12-16-2024 Estimated Creatinine Clearance Calc 53.36 ml/min 50-250 [facility] GFR/1.73 sq M.predicted jaime g non-blacks MDRD (S/P/Bld) [Vol rate/Area]Ordered By: Mk Jc on 12-16-2024 Estimated GFR (MDRD) Non-Af Amer 44 Low >60 [facility] Comment on above: mL/min/1.73m2 CKD-EP I Creatinine Equation (2020) Glomerular filtration rate ( GFR) estimation/1.73 sq m using serum, plasma, or whole bOrdered By: Mk Jc on 12-16-2024 GFR/1.73 sq M.predicted among non-blacks MDRD (S/P/Bld) [Vol rate/Area] 44 mL/min/{1.73_m2} Low >60 [facility] Comment on above: mL/min/1.73m2 CKD-EP I Creatinine Equation (2020) Potassium (Unsp spec) [Mass/ Vol]Ordered By: Mk Jc on 12-16-2024 Potassium [Moles/Vol] 3.3 mmol/L 3.3-5.1 [facility] Potassium measurement (mass/ volume)Ordered By: Mk Jc on 12-16-2024 Potassium (Unsp spec) [Mass/Vol] 3.3 mmol/L 3.3-5.1 [facility] Serum creatinine measurement (mass/volume)Ordered By: Mk Jc on 12-16-2024 Creatinine [Mass/Vol] 1.83 mg/dL High 0.70-1.20 [facility] Serum glucose measurement (m ass/volume)Ordered By: Mk Jc on 12-16-2024 Glucose [Mass/Vol] 97 mg/dL 70-99 [facility] Serum or plasma calcium tran urement (mass/volume)Ordered By: Mk Jc on 12-16-2024 Calcium [Mass/Vol] 8.5 mg/dL 7.6-11.0 [facility] Serum or plasma urea nitroge n measurement (mass/volume)Ordered By: Mk Jc on 12-16-2024 Urea nitrogen [Mass/Vol] 32 mg/dL High - [facility] Sodium levelOrdered By: Mk Jc on 12-16-2024 Sodium [Moles/Vol] 135 mmol/L 133-145 [facility] Stool enteric pathogen panel by probe and target amplification methodOrdered By: Antonette Perera on 12-16-2024 Enteric Bacteriology [facility] Absolute lymphocyte countOrd ered By: Ibrahima Camarena on 12-15-2024 Lymphocytes Auto (Unsp spec) [#/Vol] 0.86 10*3/uL 0.83-4.51 [facility] Absolute neutrophil countOrd ered By: Ibrahima Camarena on 12-15-2024 Neutrophils (Bld) [#/Vol] 9.0 10*3/uL High 2.0-7.7 [facility] Anion gap in Serum or Plasma Ordered By: Ibrahima Camarena on 12-15-2024 Anion gap [Moles/Vol] 14 mmol/L 5- [facility] Automated lymphocyte count a s percentage of total leukocytesOrdered By: Ibrahima Camarena on 12-15-2024 Lymphocytes/100 WBC Auto (Unsp spec) 7.6 % Low 19-41 [facility] BUN/creatinine ratioOrdered By: Ibrahima Camarena on 12-15-2024 Urea nitrogen/Creatinine [Mass ratio] 18.2 mg/mg 10- [facility] Basic Metabolic Profile (BMP )on 12-15-2024 BUN/CRE 18.2 RATIO Normal - [facility] Comment on above: Performed By: #### L 500.2500, L503.7505, L100.0100 #### [facility] [address] [place], [address] Calcium [Mass/Vol] 9.1 mg/dL Normal 7.6-11.0 [facility] Comment on above: Performed By: #### L 500.2500, L503.7505, L100.0100 #### [facility] [address] [place], [address] Chloride [Moles/Vol] 107 mmol/L Normal 98-108 [facility] Comment on above: Performed By: #### L 500.2500, L503.7505, L100.0100 #### [facility] [address] [place], [address] CO2 [Moles/Vol] 10.4 mmol/L Low 21.0-32.0 [facility] Comment on above: Performed By: #### L 500.2500, L503.7505, L100.0100 #### [facility] [address] [place], [address] Creatinine [Mass/Vol] 2.23 mg/dL High 0.70-1.20 [facility] Comment on above: Performed By: #### L 500.2500, L503.7505, L100.0100 #### [facility] [address] [place], [address] ECRCL 43.79 ml/min Low 50-250 [facility] Comment on above: Performed By: #### L 500.2500, L503.7505, L100.0100 #### [facility] [address] [place], [address] GAP 14 Normal 5-15 [facility] Comment on above: Performed By: #### L 500.2500, L503.7505, L100.0100 #### [facility] [address] [place], [address] GFR/1.73 sq M.predicted among non-blacks MDRD (S/P/Bld) [Vol rate/Area] 35 mL/min/{1.73_m2} Low >60 [facility] Comment on above: Result Comment: mL/m in/1.73m2 CKD-EPI Creatinine Equation (2020) Performed By: #### L 500.2500, L503.7505, L100.0100 #### [facility] [address] [place], [address] Glucose [Mass/Vol] 106 mg/dL High 70-99 [facility] Comment on above: Performed By: #### L 500.2500, L503.7505, L100.0100 #### [facility] [address] [place], [address] Potassium [Moles/Vol] 4.0 mmol/L Normal 3.3-5.1 [facility] Comment on above: Result Comment: Hemo lysis present, Results??could be affected. ?? Performed By: #### L 500.2500, L503.7505, L100.0100 #### [facility] [address] [place], [address] Sodium [Moles/Vol] 132 mmol/L Low 133-145 [facility] Comment on above: Performed By: #### L 500.2500, L503.7505, L100.0100 #### [facility] [facility] [address] [place], [address] Urea nitrogen [Mass/Vol] 41 mg/dL High 4-19 [facility] Comment on above: Performed By: #### L 500.2500, L503.7505, L100.0100 #### [facility] [address] [place], [address] Basophil percentageOrdered B y: Ibrahima Camarena on 12-15-2024 Basophils/100 WBC (Bld) 0.3 % 0-1 [facility] CBC W/Diff, Automatedon 11-28 Absolute Lymph 0.86 X10 3/uL Normal 0.83-4.51 [facility] Comment on above: Performed By: #### L 500.2500, L503.7505, L100.0100 #### [facility] [address] [place], [address] Absolute Neut 9.0 X10 3/uL High 2.0-7.7 [facility] Comment on above: Performed By: #### L 500.2500, L503.7505, L100.0100 #### [facility] [address] [place], [address] Basophils/100 WBC (Bld) 0.3 % Normal 0-1 [facility] Comment on above: Performed By: #### L 500.2500, L503.7505, L100.0100 #### [facility] [address] [place], [address] Eosinophils/100 WBC (Bld) 1.2 % Normal 0-5 [facility] Comment on above: Performed By: #### L 500.2500, L503.7505, L100.0100 #### [facility] [address] [place], [address] Erythrocyte distribution width (RBC) [Ratio] 15.2 % High 11.6-14.6 [facility] Comment on above: Performed By: #### L 500.2500, L503.7505, L100.0100 #### [facility] [address] [place], [address] Hematocrit (Bld) [Volume fraction] 38.9 % Low 40-54 [facility] Comment on above: Performed By: #### L 500.2500, L503.7505, L100.0100 #### [facility] [address] [place], [address] Hemoglobin (Bld) [Mass/Vol] 12.7 g/dL Low 13.0-16.5 [facility] Comment on above: Performed By: #### L 500.2500, L503.7505, L100.0100 #### [facility] [address] [place], [address] IG% 0.400 Normal 0.0-0.9 [facility] Comment on above: Result Comment: IG% - Immature Granulocytes (promyelocytes, myelocytes and metamyelocytes) > 1% indicates that a LEFT SHIFT is Present. Performed By: #### L 500.2500, L503.7505, L100.0100 #### [facility] [address] [place], [address] Lymphocytes/100 WBC (Bld) 7.6 % Low 19-41 [facility] Comment on above: Performed By: #### L 500.2500, L503.7505, L100.0100 #### [facility] [address] [place], [address] MCH (RBC) [Entitic mass] 31.1 pg Normal 27.0-32.0 [facility] Comment on above: Performed By: #### L 500.2500, L503.7505, L100.0100 #### [facility] [address] [place], [address] MCHC (RBC) [Mass/Vol] 32.6 g/dL Normal 32-36 [facility] Comment on above: Performed By: #### L 500.2500, L503.7505, L100.0100 #### [facility] [address] [place], [address] MCV (RBC) [Entitic vol] 95.3 fL High 80-94 [facility] Comment on above: Performed By: #### L 500.2500, L503.7505, L100.0100 #### [facility] [address] [place], [address] Monocytes/100 WBC (Bld) 10.9 % High 0-10 [facility] Comment on above: Performed By: #### L 500.2500, L503.7505, L100.0100 #### [facility] [address] [place], [address] Neutrophils/100 WBC (Bld) 79.6 % High 47-70 [facility] Comment on above: Performed By: #### L 500.2500, L503.7505, L100.0100 #### [facility] [address] [place], [address] Nucleated RBC (Bld) [#/Vol] 0.2 10*3/uL Normal 0-5 [facility] Comment on above: Performed By: #### L 500.2500, L503.7505, L100.0100 #### [facility] [address] [place], [address] Platelet mean volume (Bld) [Entitic vol] 8.6 fL Normal 6.2-12.0 [facility] Comment on above: Performed By: #### L 500.2500, L503.7505, L100.0100 #### [facility] [address] [place], [address] Platelets (Bld) [#/Vol] 393 10*3/uL Normal 150-450 [facility] Comment on above: Performed By: #### L 500.2500, L503.7505, L100.0100 #### [facility] [address] [place], [address] RBC (Bld) [#/Vol] 4.08 10*6/uL Low 4.6-6.2 [facility] Comment on above: Performed By: #### L 500.2500, L503.7505, L100.0100 #### [facility] [address] [place], [address] RDW SD 52.6 fl High 35.1-43.9 [facility] Comment on above: Performed By: #### L 500.2500, L503.7505, L100.0100 #### [facility] [address] [place], [address] WBC (Bld) [#/Vol] 11.3 10*3/uL High 4.4-11.0 [facility] Comment on above: Performed By: #### L 500.2500, L503.7505, L100.0100 #### [facility] [address] [place], [address] Carbon dioxide, total [Moles /volume] in Central venous bloodOrdered By: Ibrahima Camarena on 12-15-2024 CO2 [Moles/Vol] 10.4 mmol/L Low 21.0-32.0 [facility] Chloride assayOrdered By: Imtiaz Camarena on 12-15-2024 Chloride [Moles/Vol] 107 mmol/L 98-108 [facility] Emergency Department Summary on 12-15-2024 Emergency Department Summary [facility] Medical Records Department [address] [place] [address] Emergency Department Summary 12/15/24 MR#: [id number] Acct: [id number] Name: RAGHAVENDRA BURROWS Rep #: [id number] : 1970 54 From: Ibrahima Camarena DO PCP: Dr. Harjeet Bernard MD Status:ADM SANNA Location: [place] [address] HPI History of Present Illness Chief Complaint: [...] pain. Patient denies any nausea or vomiting. [facility] Medical History Cancer of appendix Ileostomy [...] from pr (more content not included)... Normal [facility] Eosinophil percentageOrdered By: Ibrahima Camarena on 12-15-2024 Eosinophils/100 WBC (Bld) 1.2 % 0-5 [facility] Erythrocyte distribution wid th ratioOrdered By: Ibrahima Camarena on 12-15-2024 Erythrocyte distribution width (RBC) [Ratio] 15.2 % High 11.6-14.6 [facility] Erythrocyte distribution wid th standard deviationOrdered By: Ibrahima Camarena on 12-15-2024 Erythrocyte distribution width (RBC) [Entitic vol] 52.6 fL High 35.1-43.9 [facility] Erythrocyte distribution width (RBC) [Ratio] 52.6 fl High 35.1-43.9 [facility] Estimation of creatinine emma aranceOrdered By: Ibrahima Camarena on 12-15-2024 Estimated Creatinine Clearance Calc 43.79 ml/min Low 50-250 [facility] GFR/1.73 sq M.predicted jaime g non-blacks MDRD (S/P/Bld) [Vol rate/Area]Ordered By: Ibrahima Camarena on 12-15-2024 Estimated GFR (MDRD) Non-Af Amer 35 Low >60 [facility] Comment on above: mL/min/1.73m2 CKD-EP I Creatinine Equation (2020) H AND P Exam - [place] 12-15-2024 H&P Exam - Hospitalist [facility] Medical Records Department [address] [place] [address] H P Exam - Hospitalist 12/15/24 1633 MR#: [id number] Acct: [id number] Name: RAGHAVENDRA BURROWS Rep #: [id number] : 1970 54 From: Mk Jc DO PCP: Dr. Harjeet Bernard MD Status:ADM SANNA Location: [facility] [id number] HPI - General General Date of Admission: 12/15/24 Date of Service: 12/15/24 Chief Complaint: Need for IV fluids HPI Narrative RAGHAVENDRA BURROWS, is a 54 M who presents to the emergency room at [facility] for evaluation due to possible dehydration from [...] if this will decrease his ileostomy output. [facility] Medical History Cancer of appendix [...] Pattern B (more content not included)... Normal [facility] Hematocrit Auto (Bld) [Volum e fraction]Ordered By: Ibrahima Camarena on 12-15-2024 Hematocrit (Bld) [Volume fraction] 38.9 % Low 40-54 [facility] Hemoglobin measurementOrdere d By: Ibrahima Camarena on 12-15-2024 Hemoglobin (Bld) [Mass/Vol] 12.7 g/dL Low 13.0-16.5 [facility] Immature granulocytes/100 WB C Auto (Bld)Ordered By: Ibrahima Camarena on 12-15-2024 Immature granulocytes/100 WBC (Bld) 0.400 % 0.0-0.9 [facility] Comment on above: IG% - Immature Granu locytes (promyelocytes, myelocytes and metamyelocytes) > 1% indicates that a LEFT SHIFT is Present. Lymphocytes Auto (Unsp spec) [#/Vol]Ordered By: Ibrahima Camarena on 12-15-2024 Lymphocytes (Bld) [#/Vol] 0.86 10*3/uL 0.83-4.51 [facility] Lymphocytes/100 WBC Auto (Un sp spec)Ordered By: Ibrahima Camarena on 12-15-2024 Lymphocytes/100 WBC (Bld) 7.6 % Low 19-41 [facility] MCV (mean corpuscular volume ) determinationOrdered By: Ibrahima Camarena on 12-15-2024 MCV (RBC) [Entitic vol] 95.3 fL High 80-94 [facility] Mean corpuscular hemoglobin (MCH) determinationOrdered By: Ibrahima Camarena on 12-15-2024 MCH (RBC) [Entitic mass] 31.1 pg 27.0-32.0 [facility] Mean corpuscular hemoglobin concentration (MCHC) determinationOrdered By: Ibrahima Camarena on 12-15-2024 MCHC (RBC) [Mass/Vol] 32.6 g/dL 32-36 [facility] Mean platelet volume determi nationOrdered By: Ibrahima Camarena on 12-15-2024 Platelet mean volume (Bld) [Entitic vol] 8.6 fL 6.2-12.0 [facility] Monocyte percentageOrdered B y: Ibrahima Camarena on 12-15-2024 Monocytes/100 WBC (Bld) 10.9 % High 0-10 [facility] Neutrophil percentageOrdered By: Ibrahima Camarena on 12-15-2024 Neutrophils/100 WBC (Bld) 79.6 % High 47-70 [facility] Nucleated red blood cell per centageOrdered By: Ibrahima Camarena on 12-15-2024 Nucleated RBC/100 WBC (Bld) [Ratio] 0.2 % 0-5 [facility] Platelet countOrdered By: Imtiaz Camarena on 12-15-2024 Platelets (Bld) [#/Vol] 393 10*3/uL 150-450 [facility] Potassium (Unsp spec) [Mass/ Vol]Ordered By: Ibrahima Camarena on 12-15-2024 Potassium [Moles/Vol] 4.0 mmol/L 3.3-5.1 [facility] Comment on above: Hemolysis present, R esults could be affected. RBC Auto (Bld) [#/Vol]Ordere d By: Ibrahima Camarena on 12-15-2024 RBC (Bld) [#/Vol] 4.08 10*6/uL Low 4.6-6.2 [facility] Serum creatinine measurement (mass/volume)Ordered By: Ibrahima Camarena on 12-15-2024 Creatinine [Mass/Vol] 2.23 mg/dL High 0.70-1.20 [facility] Serum glucose measurement (m ass/volume)Ordered By: Ibrahima Camarena on 12-15-2024 Glucose [Mass/Vol] 106 mg/dL High 70-99 [facility] Serum or plasma calcium tran urement (mass/volume)Ordered By: Ibrahima Camarnea on 12-15-2024 Calcium [Mass/Vol] 9.1 mg/dL 7.6-11.0 [facility] Serum or plasma urea nitroge n measurement (mass/volume)Ordered By: Ibrahima Camarena on 12-15-2024 Urea nitrogen [Mass/Vol] 41 mg/dL High 4-19 [facility] Sodium levelOrdered By: Ibrahima Camarena on 12-15-2024 Sodium [Moles/Vol] 132 mmol/L Low 133-145 [facility] White blood cell (WBC) count Ordered By: Ibrahima Camarena on 12-15-2024 WBC (Bld) [#/Vol] 11.3 10*3/uL High 4.4-11.0 [facility] Basic metabolic 2000 panelon 12-14-2024 Anion gap [Moles/Vol] 13 mmol/L Normal 8-15 [facility] Comment on above: Order Comment: Speci men Type: BLOOD SPECIMENOrdering Facility: [facility] Address: [address] [place] [address] Performed By: #### 2 4321-2 ####[facility] LABCLIA [id number] [place] [address] [place] Calcium [Mass/Vol] 9.3 mg/dL Normal 8.5-10.2 [facility] Comment on above: Order Comment: Speci men Type: BLOOD SPECIMENOrdering Facility: [facility] Address: [address] [id number] Performed By: #### 2 4321-2 ####[facility] LABCLIA [id number] [place] [address] [place] Chloride [Moles/Vol] 109 mmol/L High 98-107 [facility] Comment on above: Order Comment: Speci men Type: BLOOD SPECIMENOrdering Facility: [facility] Address: [address] [place] [address] Performed By: #### 2 4321-2 ####[facility] LABCLIA [id number] [facility] [address] [address] [place] CO2 [Moles/Vol] 13 mmol/L Low 22-30 [facility] Comment on above: Order Comment: Speci men Type: BLOOD SPECIMENOrdering Facility: [facility] Address: [address] [place] [address] Performed By: #### 2 4321-2 ####[facility] LABCLIA [id number] [place] [id number] [place] Creatinine [Mass/Vol] 2.51 mg/dL High 0.73-1.22 [facility] Comment on above: Order Comment: Speci men Type: BLOOD SPECIMENOrdering Facility: [facility] Address: [address] [place] [address] Performed By: #### 2 4321-2 ####[facility] LABIA [id number] [place] [address] [place] Creatinine and Glomerular filtration rate.predicted panel (S/P/Bld) 30 mL/min/1.73m??? Low >=60 [facility] Comment on above: Order Comment: Speci men Type: BLOOD SPECIMENOrdering Facility: [facility] Address: [address] [place] [address] Result Comment: Marlen mated Glomerular Filtration Rate [...] actual GFR. Performed By: #### 2 4321-2 ####[facility] LABCLIA [id number] [address] [address] [place] Glucose [Mass/Vol] 124 mg/dL High 74-99 [facility] Comment on above: Order Comment: Speci men Type: BLOOD SPECIMENOrdering Facility: [facility] Address: [address] [place] [address] Result Comment: The [place] Diabetes Association (ADA) provides guidance for cutoff [...] Standards of Medical Care in Diabetes 2016, [place] [employer]. Diabetes Care. 2016.39(Suppl 1). Performed By: #### 2 4321-2 ####[facility] LABCLIA [id number] [place] [address] [place] Potassium [Moles/Vol] 3.6 mmol/L Low 3.7-5.1 [facility] Comment on above: Order Comment: Speci men Type: BLOOD SPECIMENOrdering Facility: [facility] Address: [address] [place] [address] Performed By: #### 2 4321-2 ####[facility] LABCLIA [id number] [place] [id number] [place] Sodium [Moles/Vol] 135 mmol/L Low 136-144 [facility] Comment on above: Order Comment: Speci men Type: BLOOD SPECIMENOrdering Facility: [facility] Address: [address] [place], [place] [address] Performed By: #### 2 4321-2 ####[facility] LABCLIA [id number] [facility] [place] [id number] [place] Urea nitrogen [Mass/Vol] 43 mg/dL High 9-24 [facility] Comment on above: Order Comment: Speci men Type: BLOOD SPECIMENOrdering Facility: [facility] Address: [address] [place] [address] Performed By: #### 2 4321-2 ####[facility] LABCLIA [id number] [employer] [id number] [place] [address] [place] CNPFaviola 12-14-2024 CNPN Telephone (INTMWS) FIRST,RAGHAVENDRA Zepeda ([id number]) 1970 M Date Time Provider Department 12/14/24 JULISSA UGARTE INTMWS During your visit today, we recorded the following information about you: Julissa Ugarte, THERAPIST RESPIRATORY.FLOTATION TENDER 12/14/2024 7:29 AM Addendum Please let him [...] (L) 28 (L) 30 (L) Julissa Ugarte APRN.FLOTATION TENDER 12/14/2024 7:29 AM Signed Addended by: JULISSA UGARTE on: 12/14/2024 07:29 AM Modules accepted: Zhanna Dow LPN 12/14/2024 9:02 AM Signed No answer. [...] increased ostomy output. PEDRO LUIS Peoples Terri, APRN.FLOTATION TENDER 12/14/2024 3:37 PM Signed Has obtained labs, results not yet in. Julissa Ugarte APRN.FLOTATION TENDER 12/15/2024 7:15 AM Signed Lab results show [...] R19.7] Order(s):BASIC METABOLIC PANEL [SQBMP] Order #: [id number] FUTURE Prescriptions as of 12/15/2024 - loperamide [...] water wit (more content not included)... Normal [facility] Basic metabolic 2000 panelon 12-12-2024 Anion gap [Moles/Vol] 15 mmol/L 8 - 15 mmol/L [facility] Calcium [Mass/Vol] 9 mg/dL 8.5 - 10. 2 mg/dL [facility] Chloride [Moles/Vol] 110 mmol/L High 98 - 10 7 mmol/L [facility] CO2 [Moles/Vol] 9 mmol/L Critically low 22 - 30 mmol/L [facility] Creatinine [Mass/Vol] 2.63 mg/dL High 0.73 - 1.22 mg/dL [facility] GFR/1.73 sq M.predicted among non-blacks MDRD (S/P/Bld) [Vol rate/Area] 28 mL/min/{1.73_m2} Low - PINF [facility] Comment on above: Estimated Glomerular Filtration Rate [...] 112 mg/dL High 74 - 99 mg/dL [facility] Comment on above: The [place] Diabete s Association (ADA) provides guidance for [...] Standards of Medical Care in Diabetes 2016, [place] [employer]. Diabetes Care. 2016.39(Suppl 1). Interpretation and review of laboratory results Abnormal [facility] Potassium [Moles/Vol] 3.9 mmol/L 3.7 - 5.1 mmol/L [facility] Sodium [Moles/Vol] 134 mmol/L Low 136 - 144 mmol/L [facility] Urea nitrogen [Mass/Vol] 56 mg/dL High 9 - 24 mg/dL [facility] CBC panel Auto (Bld)on 12-12 Erythrocyte distribution width (RBC) [Ratio] 14.3 % Normal 11.5-15.0 [facility] Comment on above: Order Comment: Speci men Type: BLOOD SPECIMENOrdering Facility: [facility] Address: [address] [place] [address] Performed By: #### 5 8410-2 ####[facility] [id number] [place] [address] [place] Hematocrit (Bld) [Volume fraction] 37.1 % Low 39.0-51.0 [facility] Comment on above: Order Comment: Speci men Type: BLOOD SPECIMENOrdering Facility: [facility] Address: [address] [place] [address] Performed By: #### 5 8410-2 ####[facility] LABIA [id number] [place] [address] [place] Hemoglobin (Bld) [Mass/Vol] 11.9 g/dL Low 13.0-17.0 [facility] Comment on above: Order Comment: Speci men Type: BLOOD SPECIMENOrdering Facility: [facility] Address: [address] [place] [id number] Performed By: #### 5 8410-2 ####[facility] LABIA [id number] [place] [address] [place] MCH (RBC) [Entitic mass] 30.8 pg Normal 26.0-34.0 [facility] Comment on above: Order Comment: Speci men Type: BLOOD SPECIMENOrdering Facility: [facility] Address: [address] [place] [address] Performed By: #### 5 8410-2 ####[facility] [id number] [place] [address] [place] MCHC (RBC) [Mass/Vol] 32.1 g/dL Normal 30.5-36.0 [facility] Comment on above: Order Comment: Speci men Type: BLOOD SPECIMENOrdering Facility: [facility] Address: [address] [place] [address] Performed By: #### 5 8410-2 ####[facility] [id number] [place] [address] [place] MCV (RBC) [Entitic vol] 96.1 fL Normal 80.0-100.0 [facility] Comment on above: Order Comment: Speci men Type: BLOOD SPECIMENOrdering Facility: [facility] Address: [address] [place] [address] Performed By: #### 5 8410-2 ####[facility] LABIA [id number] [place] [address] [place] Nucleated RBC (Bld) [#/Vol] 0.02 10*3/uL High <0.01 [facility] Comment on above: Order Comment: Speci men Type: BLOOD SPECIMENOrdering Facility: [facility] Address: [address] [place] [address] Performed By: #### 5 8410-2 ####[facility] LABIA [id number] [place] [id number] [place] Platelet mean volume (Bld) [Entitic vol] 9.0 fL Normal 9.0-12.7 [facility] Comment on above: Order Comment: Speci men Type: BLOOD SPECIMENOrdering Facility: [facility] Address: [address] [place] [address] Performed By: #### 5 8410-2 ####[facility] LABIA [id number] [place] [address] [place] Platelets (Bld) [#/Vol] 389 10*3/uL Normal 150-400 [facility] Comment on above: Order Comment: Speci men Type: BLOOD SPECIMENOrdering Facility: [facility] Address: [address] [place] [address] Performed By: #### 5 8410-2 ####[facility] LABIA [id number] [place] [address] [place] RBC (Bld) [#/Vol] 3.86 10*6/uL Low 4.20-6.00 [facility] Comment on above: Order Comment: Speci men Type: BLOOD SPECIMENOrdering Facility: [facility] Address: [address] [place] [address] Performed By: #### 5 8410-2 ####[facility] LABIA [id number] [place] [address] [place] WBC (Bld) [#/Vol] 10.86 10*3/uL Normal 3.70-11.00 [facility] Comment on above: Order Comment: Speci men Type: BLOOD SPECIMENOrdering Facility: [facility] Address: [address] [place] [address] Performed By: #### 5 8410-2 ####[facility] LABIA [id number] [place] [id number] [place] CNPFaviola 12-12-2024 CNPN Telephone (FMIUNI) FIRST,RAGHAVENDRA Zepeda ([id number]) 1970 M Date Time Provider Department 12/12/24 JUNIOR ULLOA FMIUNI During your visit today, we recorded the following information about you: Junior Ulloa DO 12/12/2024 3:21 PM Signed Made [...] lab, I would call him again. Dr. Junior Ulloa DO Allergies As of Date: 12/12/2024 [...] swelling, mass and l*01/23/2023 Encounter Status:Closed by JUNIOR ULLOA on 12/12/24 [facility] Telephone (FMIUNI) FIRST,RAGHAVENDRA Zepeda ([id number]) 1970 M Date Time Provider Department 12/12/24 JUNIOR ULLOA FMIUNI During your visit today, we recorded the following information about you: Junior Ulloa DO 12/12/2024 6:45 AM Signed Received call from lab at 12:47 AM regarding critical lab value. Patient had a CO2 level of 9. Reviewed his chart and discharge summary he also appeared to have worsening [place] over last week. Called patient and made contact at 1:20 AM. 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 Bernard. Discussed that I was [...] today. Also will forward to PCP. Dr. Junior Ulloa DO [Note transcribed at 6:40 AM due to Epic maintenance at original time] Julissa Ugarte APRN.NED 12/14/2024 7:19 AM Signed Noted, will follow [...] Status:Closed by ZHANNA WAGNER on 12/14/24 Normal [facility] Comprehensive metabolic 2000 panelon 12-12-2024 Albumin [Mass/Vol] 4.2 g/dL Normal 3.9-4.9 [facility] Comment on above: Order Comment: Speci men Type: BLOOD SPECIMENOrdering Facility: [facility] Address: [address] [place] [address] Performed By: #### 2 4323-8, 57015-3 ####[facility] LABCLIA [id number] [place] [address] [place] ALP [Catalytic activity/Vol] 120 U/L High 38-113 [facility] Comment on above: Order Comment: Speci men Type: BLOOD SPECIMENOrdering Facility: [facility] Address: [address] [id number] Performed By: #### 2 4323-8, 28746-7 ####[facility] LABCLIA [id number] [place] [id number] [place] ALT [Catalytic activity/Vol] 20 U/L Normal 10-54 [facility] Comment on above: Order Comment: Speci men Type: BLOOD SPECIMENOrdering Facility: [facility] Address: [address] [place] [address] Performed By: #### 2 4323-8, 85021-9 ####[facility] LABCLIA [id number] [place] [address] [place] Anion gap [Moles/Vol] 13 mmol/L Normal 8-15 [facility] Comment on above: Order Comment: Speci men Type: BLOOD SPECIMENOrdering Facility: [facility] Address: [address] [place] [address] Performed By: #### 2 4323-8, 41080-9 ####[facility] LABCLIA [id number] [place] [address] [place] AST [Catalytic activity/Vol] 16 U/L Normal 14-40 [facility] Comment on above: Order Comment: Speci men Type: BLOOD SPECIMENOrdering Facility: [facility] Address: [address] [place], [place] [address] Performed By: #### 2 4323-8, 85044-2 ####[facility] LABCLIA [id number] [place] [id number] [place] Bilirubin [Mass/Vol] 0.3 mg/dL Normal 0.2-1.3 [facility] Comment on above: Order Comment: Speci men Type: BLOOD SPECIMENOrdering Facility: [facility] Address: [address] [place], [place] [address] Performed By: #### 2 4323-8, 69666-3 ####[facility] LABCLIA [id number] [facility] [address] [place] [address] [place] Calcium [Mass/Vol] 9.1 mg/dL Normal 8.5-10.2 [facility] Comment on above: Order Comment: Speci men Type: BLOOD SPECIMENOrdering Facility: [facility] Address: [address] [place] [address] Performed By: #### 2 4323-8, 46224-3 ####[facility] LABCLIA [id number] [facility] [address] [address] [place] Chloride [Moles/Vol] 108 mmol/L High 98-107 [facility] Comment on above: Order Comment: Speci men Type: BLOOD SPECIMENOrdering Facility: [facility] Address: [address] [place] [address] Performed By: #### 2 4323-8, 98151-7 ####[facility] LABCLIA [id number] [place] [id number] [place] CO2 [Moles/Vol] 12 mmol/L Low 22-30 [facility] Comment on above: Order Comment: Speci men Type: BLOOD SPECIMENOrdering Facility: [facility] Address: [address] [place] [address] Performed By: #### 2 4323-8, 53164-0 ####[facility] LABCLIA [id number] [facility] [place] [id number] [place] Creatinine [Mass/Vol] 2.50 mg/dL High 0.73-1.22 [facility] Comment on above: Order Comment: Speci men Type: BLOOD SPECIMENOrdering Facility: [facility] Address: [address] [place], [place] [address] Performed By: #### 2 4323-8, 58179-0 ####[facility] LABCLIA [id number] [place] [id number] [place] Creatinine and Glomerular filtration rate.predicted panel (S/P/Bld) 30 mL/min/1.73m??? Low >=60 [facility] Comment on above: Order Comment: Rose summers Type: BLOOD SPECIMENOrdering Facility: [facility] Address: [address] [place] [address] Result Comment: Marlen mated Glomerular Filtration Rate [...] actual GFR. Performed By: #### 2 4323-8, 26210-1 ####[facility] LABCLIA [id number] [place] [address] [place] Glucose [Mass/Vol] 105 mg/dL High 74-99 [facility] Comment on above: Order Comment: Rose summers Type: BLOOD SPECIMENOrdering Facility: [facility] Address: [address] [place] [address] Result Comment: The [place] Diabetes Association (ADA) provides guidance for cutoff [...] Standards of Medical Care in Diabetes 2016, [place] Diabetes Association. Diabetes Care. 2016.39(Suppl 1). Performed By: #### 2 4323-8, 08199-8 ####[facility] LABIA [id number] [place] [address] [place] Potassium [Moles/Vol] 3.3 mmol/L Low 3.7-5.1 [facility] Comment on above: Order Comment: Speci men Type: BLOOD SPECIMENOrdering Facility: [facility] Address: [address] [id number] Performed By: #### 2 4323-8, 51442-8 ####[facility] LABCLIA [id number] [address] [address] [place] Protein [Mass/Vol] 7.7 g/dL Normal 6.3-8.0 [facility] Comment on above: Order Comment: Speci men Type: BLOOD SPECIMENOrdering Facility: [facility] Address: [address] [place] [address] Performed By: #### 2 4323-8, 23717-4 ####[facility] LABCLIA [id number] [place] [address] [place] Sodium [Moles/Vol] 133 mmol/L Low 136-144 [facility] Comment on above: Order Comment: Speci men Type: BLOOD SPECIMENOrdering Facility: [facility] Address: [address] [place] [address] Performed By: #### 2 4323-8, 90491-3 ####[facility] LABCLIA [id number] [place] [address] [place] Urea nitrogen [Mass/Vol] 50 mg/dL High 9-24 [facility] Comment on above: Order Comment: Speci men Type: BLOOD SPECIMENOrdering Facility: [facility] Address: [address] [id number] Performed By: #### 2 4323-8, 11968-2 ####[facility] LABCLIA [id number] [place] [id number] [place] Lipid 1996 panelon 5 Cholesterol [Mass/Vol] 103 mg/dL Normal <200 [facility] Comment on above: Order Comment: Speci men Type: BLOOD SPECIMENOrdering Facility: [facility] Address: [address] [place], [place] [address] Result Comment: <200 mg/dL, Desirable 200-239 mg/dL, Borderline high >239 mg/dL, High Performed By: #### 2 4323-8, 36786-4 ####[facility] LABCLIA [id number] [facility] [place] [id number], [place] [address] [place] Cholesterol in HDL [Mass/Vol] 46 mg/dL Normal >39 [facility] Comment on above: Order Comment: Speci men Type: BLOOD SPECIMENOrdering Facility: [facility] Address: [address] [place] [address] Result Comment: 40-5 9 mg/dL, Acceptable >59 mg/dL, High: Negative risk factor for coronary heart disease <40 mg/dL, Low: Positive risk factor for coronary heart disease Performed By: #### 2 4323-8, 78496-5 ####[facility] LABCLIA [id number] [facility] [id number], [facility] [place] Cholesterol in LDL [Mass/Vol] 48 mg/dL Normal <100 [facility] Comment on above: Order Comment: Rose melina Type: BLOOD SPECIMENOrdering Facility: [facility] Address: [address] [place] [address] Result Comment: <100 mg/dL, Optimal 100-129 mg/dL, Near optimal/above optimal 130-159 mg/dL, Borderline high 160-189 mg/dL, High >189 mg/dL, Very high Secondary prevention optimal LDL Cholesterol levels are recommended to be < 70 mg/dL Performed By: #### 2 4323-8, 50849-2 ####[facility] LABCLIA [id number] [facility] [place] [id number], [place] [address] [place] Cholesterol in LDL/Cholesterol in HDL [Mass ratio] 1.04 {ratio} Normal <2.54 [facility] Comment on above: Order Comment: Rose summers Type: BLOOD SPECIMENOrdering Facility: [facility] Address: [address] [place] [address] Result Comment: Refe iselace: 1. National Cholesterol Education Program ATP III Guideline At-A-Glance Quick Desk Reference: National Heart, Lung, and Blood [place]. National Institutes of Health. 2001: NIH Publication No. 01-3305. 2. An International Atherosclerosis Society position paper: global recommendations for the management of dyslipidemia: executive summary, Atherosclerosis. 2014: 232(2):410-413. Performed By: #### 2 4323-8, 38061-9 ####[facility] LABCLIA [id number] [place] [id number] [place] Cholesterol in VLDL [Mass/Vol] 9 mg/dL Normal <30 [facility] Comment on above: Order Comment: Speci men Type: BLOOD SPECIMENOrdering Facility: [facility] Address: [address] [place] [address] Performed By: #### 2 4328, ####[facility] LABCLIA [id number] [place] [address] [place] Cholesterol non HDL [Mass/Vol] 57 mg/dL Normal <130 [facility] Comment on above: Order Comment: Rafaeli men Type: BLOOD SPECIMENOrdering Facility: [facility] Address: [address] [place] [address] Result Comment: <130 mg/dL, Optimal 130-159 mg/dL, Near optimal/above optimal 160-189 mg/dL, Borderline high 190-219 mg/dL, High >219 mg/dL, Very high Secondary prevention optimal non HDL Cholesterol levels are recommended to be <100 mg/dL Performed By: #### 2 4323-04, ####[facility] LABCLIA [id number] [address] [address] [place] Cholesterol.total/Chol esterol in HDL [Mass ratio] 2.24 {ratio} Normal <5.10 [facility] Comment on above: Order Comment: Rafaeli men Type: BLOOD SPECIMENOrdering Facility: [facility] Address: [address] [place] [address] Performed By: #### 2 432-8, 79760-2 ####[facility] LABCLIA [id number] [facility] [address] [place] [address] [place] FASTING TIME 12 hrs Normal [facility] Comment on above: Order Comment: Speci men Type: BLOOD SPECIMENOrdering Facility: [facility] Address: [address] [place], [place] [address] Performed By: #### 2 4323-8, 69529-5 ####[facility] LABCLIA [id number] [facility] [address] [place] [address] [place] Triglyceride [Mass/Vol] 43 mg/dL Normal <150 [facility] Comment on above: Order Comment: Speci men Type: BLOOD SPECIMENOrdering Facility: [facility] Address: [address] [place] [address] Result Comment: <150 mg/dL, Normal 150-199 mg/dL, Borderline high 200-499 mg/dL, High >499 mg/dL, Very high Performed By: #### 2 4323-8, 45127-3 ####[facility] LABCLIA [id number] [facility] [address] [place] [address] [place] Basic metabolic 2000 panelon 12-11-2024 Anion gap [Moles/Vol] 15 mmol/L Normal 8-15 [facility] Comment on above: Order Comment: Speci men Type: BLOOD SPECIMENOrdering Facility: [facility] Address: [address] [place], [place] [address] Performed By: #### 2 4321-2 ####[facility] LABCLIA [id number] [facility] [address] [place] [address] [place] Calcium [Mass/Vol] 9.0 mg/dL Normal 8.5-10.2 [facility] Comment on above: Order Comment: Speci men Type: BLOOD SPECIMENOrdering Facility: [facility] Address: [address] [place], [place] [address] Performed By: #### 2 4321-2 ####[facility] LABCLIA [id number] [facility] [place] [id number] [address] [place] Chloride [Moles/Vol] 110 mmol/L High 98-107 [facility] Comment on above: Order Comment: Speci men Type: BLOOD SPECIMENOrdering Facility: [facility] Address: [address] [place] [address] Performed By: #### 2 4321-2 ####[facility] LABCLIA [id number] [place] [address] [place] CO2 [Moles/Vol] 9 mmol/L Critically low 22-30 [facility] Comment on above: Order Comment: Speci men Type: BLOOD SPECIMENOrdering Facility: [facility] Address: [address] [place] [address] Performed By: #### 2 4321-2 ####[facility] LABIA [id number] [place] [address] [place] Creatinine [Mass/Vol] 2.63 mg/dL High 0.73-1.22 [facility] Comment on above: Order Comment: Speci men Type: BLOOD SPECIMENOrdering Facility: [facility] Address: [address] [place] [address] Performed By: #### 2 4321-2 ####[facility] LABIA [id number] [place] [address] [place] Creatinine and Glomerular filtration rate.predicted panel (S/P/Bld) 28 mL/min/1.73m??? Low >=60 [facility] Comment on above: Order Comment: Speci men Type: BLOOD SPECIMENOrdering Facility: [facility] Address: [address] [place] [address] Result Comment: Marlen mated Glomerular Filtration Rate [...] actual GFR. Performed By: #### 2 4321-2 ####[facility] LABCLIA [id number] [place] [address] [place] Glucose [Mass/Vol] 112 mg/dL High 74-99 [facility] Comment on above: Order Comment: Speci men Type: BLOOD SPECIMENOrdering Facility: [facility] Address: [address] [place] [address] Result Comment: The [place] Diabetes Association (ADA) provides guidance for cutoff [...] Standards of Medical Care in Diabetes 2016, [place] Diabetes Association. Diabetes Care. 2016.39(Suppl 1). Performed By: #### 2 4321-2 ####[facility] LABCLIA [id number] [place] [address] [place] Potassium [Moles/Vol] 3.9 mmol/L Normal 3.7-5.1 [facility] Comment on above: Order Comment: Speci men Type: BLOOD SPECIMENOrdering Facility: [facility] Address: [address] [place] [address] Performed By: #### 2 4321-2 ####[facility] LABIA [id number] [place] [address] [place] Sodium [Moles/Vol] 134 mmol/L Low 136-144 [facility] Comment on above: Order Comment: Speci men Type: BLOOD SPECIMENOrdering Facility: [facility] Address: [address] [place] [address] Performed By: #### 2 4321-2 ####[facility] LABCLIA [id number] [place] [address] [place] Urea nitrogen [Mass/Vol] 56 mg/dL High 9-24 [facility] Comment on above: Order Comment: Speci men Type: BLOOD SPECIMENOrdering Facility: [facility] Address: [address] [place] [address] Performed By: #### 2 4321-2 ####[facility] LABIA [id number] [place] [id number] [place] Basic metabolic 2000 panelOr dered By: Joan Magdaleno on 12-04-2024 Anion gap [Moles/Vol] 13 mmol/L 8 - 15 mmol/L [facility] Calcium [Mass/Vol] 9.3 mg/dL 8.5 - 10. 2 mg/dL [facility] Chloride [Moles/Vol] 109 mmol/L High 98 - 10 7 mmol/L [facility] CO2 [Moles/Vol] 11 mmol/L Low 22 - 30 mmol/L [facility] Creatinine [Mass/Vol] 2.18 mg/dL High 0.73 - 1.22 mg/dL [facility] GFR/1.73 sq M.predicted among non-blacks MDRD (S/P/Bld) [Vol rate/Area] 36 mL/min/{1.73_m2} Low - PINF [facility] Comment on above: Estimated Glomerular Filtration Rate [...] [Mass/Vol] 94 mg/dL 74 - 99 mg/dL [facility] Comment on above: The [place] Diabete s Association (ADA) provides guidance for [...] Standards of Medical Care in Diabetes 2016, [place] Diabetes Association. Diabetes Care. 2016.39(Suppl 1). Interpretation and review of laboratory results Abnormal [facility] Potassium [Moles/Vol] 4.6 mmol/L 3.7 - 5.1 mmol/L [facility] Sodium [Moles/Vol] 133 mmol/L Low 136 - 144 mmol/L [facility] Urea nitrogen [Mass/Vol] 51 mg/dL High 9 - 24 mg/dL [facility] Basic metabolic 2000 panelon 12-04-2024 Anion gap [Moles/Vol] 13 mmol/L Normal 8-15 [facility] Comment on above: Order Comment: Rose summers Type: BLOOD SPECIMENOrdering Facility: [facility] Address: [address] [place] [address] Performed By: #### 2 4321-2 ####[facility] CENTERLIA [id number] [place] [address] [place] Calcium [Mass/Vol] 9.3 mg/dL Normal 8.5-10.2 [facility] Comment on above: Order Comment: Rose summers Type: BLOOD SPECIMENOrdering Facility: [facility] Address: [address] [place] [address] Performed By: #### 2 4321-2 ####[facility]ITALWNCLIA [id number] [place] [address] [place] Chloride [Moles/Vol] 109 mmol/L High 98-107 [facility] Comment on above: Order Comment: Rose summers Type: BLOOD SPECIMENOrdering Facility: [facility] Address: [address] [id number] Performed By: #### 2 4321-2 ####[facility] [id number] [place] [address] [place] CO2 [Moles/Vol] 11 mmol/L Low 22-30 [facility] Comment on above: Order Comment: Speci men Type: BLOOD SPECIMENOrdering Facility: [facility] Address: [address] [place] [address] Performed By: #### 2 4321-2 ####[facility] H[facility]ITALWNCLIA [id number] [place] [address] [place] Creatinine [Mass/Vol] 2.18 mg/dL High 0.73-1.22 [facility] Comment on above: Order Comment: Speci men Type: BLOOD SPECIMENOrdering Facility: [facility] Address: [address] [place] [address] Performed By: #### 2 4321-2 ####[facility]ITALNCLI [id number] [place] [address] [place] Creatinine and Glomerular filtration rate.predicted panel (S/P/Bld) 36 mL/min/1.73m??? Low >=60 [facility] Comment on above: Order Comment: Speci men Type: BLOOD SPECIMENOrdering Facility: [facility] Address: [address] [place] [address] Result Comment: Marlen mated Glomerular Filtration Rate [...] actual GFR. Performed By: #### 2 4321-2 ####[facility]ITAL[facility]CLIA [id number] [place] [address] [place] Glucose [Mass/Vol] 94 mg/dL Normal 74-99 [facility] Comment on above: Order Comment: Speci men Type: BLOOD SPECIMENOrdering Facility: [facility] Address: [address] [place], [place] [address] Result Comment: The [place] Diabetes Association (ADA) provides guidance for cutoff [...] Standards of Medical Care in Diabetes 2016, [place] Diabetes Association. Diabetes Care. 2016.39(Suppl 1). Performed By: #### 2 4321-2 ####[facility] HOSPITALLUH [id number] [place] [address] [place] Potassium [Moles/Vol] 4.6 mmol/L Normal 3.7-5.1 [facility] Comment on above: Order Comment: Speci men Type: BLOOD SPECIMENOrdering Facility: [facility] Address: [address] [place] [address] Performed By: #### 2 4321-2 ####[facility]ENTERMaggie [id number] [place] [address] [place] Sodium [Moles/Vol] 133 mmol/L Low 136-144 [facility] Comment on above: Order Comment: Speci men Type: BLOOD SPECIMENOrdering Facility: [facility] Address: [address] [id number] Performed By: #### 2 4321-2 ####[facility] CENTERMaggie [id number] [place] [address] [place] Urea nitrogen [Mass/Vol] 51 mg/dL High 9-24 [facility] Comment on above: Order Comment: Speci men Type: BLOOD SPECIMENOrdering Facility: [facility] Address: [address] [id number] Performed By: #### 2 4321-2 ####[facility] BHAVIN REINOSODODGENCJUN [id number] [place] [address] [place] CNOVon 12-04-2024 CNOV Office Visit (INTMWS ) RAGHAVENDRA BURROWS ([id number]) 1970 M Date Time Provider Department 12/04/24 11:00 AM JULISSA UGARTE INTMWS During your visit today, we recorded the following information about you: Pulse Respiration Blood pressure Weight 73/minute 16/minute 106/71 95 kg Julissa Ugarte, PERLA.FLOTATION TENDER 12/14/2024 7:15 AM Addendum SUBJECTIVE: Hepatitis C [...] Covid-19 Vaccine( season) due on 05/31/2024 HPI Raghavendra Burrows is a 54 year old male. [...] and Lump, Unspecified Site Presents for an [facility] hospital follow up visit today. He was [...] continue to monitor. He was seen at [facility] November 27, 2024 for nausea vomiting and [...] that have help to slow output. Hyperlipidemia. First reports doing well on current therapy His [...] General: Mike (more content not included)... Normal [facility] CBC W/Diff, Automatedon PATH REV Reviewed Normal [facility] Comment on above: Result Comment: SLIG HT LEUKOCYTOSIS WITH MILD GRANULOCYTOSIS AND NO SIGNFICIANT LEFT SHIFT. NORMOCYTIC NORMOCHROMIC MILD ANEMIA. ADEQUATE PLATELETS. Izabella Graff MD 12/02/2024 AMENDED REPORT 12/02/24 1353 PATH REV previously reported as: January Performed By: #### L 500.2500, L503.7505, L100.0100 #### [facility] [address] [place], [address] Absolute lymphocyte countOrd ered By: Sara Quezada on 11-29-2024 Lymphocytes Auto (Unsp spec) [#/Vol] 1.42 10*3/uL 0.83-4.51 [facility] Absolute neutrophil countOrd ered By: Sara Quezada on 11-29-2024 Neutrophils (Bld) [#/Vol] 7.9 10*3/uL High 2.0-7.7 [facility] Automated lymphocyte count a s percentage of total leukocytesOrdered By: Sara Quezada on 11-29-2024 Lymphocytes/100 WBC Auto (Unsp spec) 12.9 % Low 19-41 [facility] BUN/creatinine ratioOrdered By: Sara Quezada on 11-29-2024 Urea nitrogen/Creatinine [Mass ratio] 19.6 mg/mg 10-20 [facility] Basic Metabolic Profile (BMP )on 11-29-2024 Anion gap [Moles/Vol] 13 mmol/L Normal 5-15 [facility] Comment on above: Performed By: #### L 500.2500 ####[facility] [address] [place], [address] Chloride [Moles/Vol] 100 mmol/L Normal 96-108 [facility] Comment on above: Performed By: #### L 500.2500 ####[facility] [address] [place], [address] Potassium [Moles/Vol] 2.8 mmol/L Low 3.3-5.1 [facility] Comment on above: Performed By: #### L 500.2500 ####[facility] [address] [place], [address] Sodium [Moles/Vol] 137 mmol/L Normal 133-145 [facility] Comment on above: Performed By: #### L 500.2500 ####[facility] [address] [place], [address] Basophil percentageOrdered B y: Sara Quezada on 11-29-2024 Basophils/100 WBC (Bld) 0.4 % 0-1 [facility] Bilirubin, totalOrdered By: Sara Quezada on 11-29-2024 Bilirubin [Mass/Vol] 0.28 mg/dL 0.00-1.30 [facility] Carbon dioxide measurementOr dered By: Sara Quezada on 11-29-2024 CO2 [Moles/Vol] 24.2 mmol/L 22.0-29.0 [facility] Chloride measurementOrdered By: Sara Quezada on 11-29-2024 Chloride [Moles/Vol] 100 mmol/L 96-108 [facility] Comprehensive Metabolic Prof ilon 11-29-2024 Albumin [Mass/Vol] 3.4 g/dL Low 3.5-5.0 [facility] Comment on above: Performed By: #### L 500.2500, L503.7505, L100.0100 #### [facility] [address] [place], [address] Albumin/Globulin [Mass ratio] 1.0 {ratio} Normal 0.9-2.4 [facility] Comment on above: Performed By: #### L 500.2500, L503.7505, L100.0100 #### [facility] [address] [place], [address] ALK PHOS 91 U/L Normal 40-129 [facility] Comment on above: Performed By: #### L 500.2500, L503.7505, L100.0100 #### [facility] [address] [place], [address] ALT [Catalytic activity/Vol] 18 U/L Normal <=46 [facility] Comment on above: Performed By: #### L 500.2500, L503.7505, L100.0100 #### [facility] [address] [place], [address] Anion gap [Moles/Vol] 12 mmol/L Normal 5-15 [facility] Comment on above: Performed By: #### L 500.2500, L503.7505, L100.0100 #### [facility] [address] [place], [address] AST [Catalytic activity/Vol] 17 U/L Normal <=37 [facility] Comment on above: Performed By: #### L 500.2500, L503.7505, L100.0100 #### [facility] [address] [place], [address] Bilirubin [Mass/Vol] 0.28 mg/dL Normal 0.00-1.30 [facility] Comment on above: Performed By: #### L 500.2500, L503.7505, L100.0100 #### [facility] [address] [place], [address] BUN/CRE 19.4 RATIO Normal 10-20 [facility] Comment on above: Performed By: #### L 500.2500, L503.7505, L100.0100 #### [facility] [address] [place], [address] Calcium [Mass/Vol] 8.9 mg/dL Normal 7.6-11.0 [facility] Comment on above: Performed By: #### L 500.2500, L503.7505, L100.0100 #### [facility] [address] [place], [address] Chloride [Moles/Vol] 97 mmol/L Normal 96-108 [facility] Comment on above: Performed By: #### L 500.2500, L503.7505, L100.0100 #### [facility] [address] [place], [address] CO2 [Moles/Vol] 26.2 mmol/L Normal 22.0-29.0 [facility] Comment on above: Performed By: #### L 500.2500, L503.7505, L100.0100 #### [facility] [address] [place], [address] Creatinine [Mass/Vol] 1.86 mg/dL High 0.70-1.20 [facility] Comment on above: Performed By: #### L 500.2500, L503.7505, L100.0100 #### [facility] [address] [place], [address] ECRCL 50.99 ml/min Normal 50-250 [facility] Comment on above: Performed By: #### L 500.2500, L503.7505, L100.0100 #### [facility] [address] [place], [address] GFR/1.73 sq M.predicted among non-blacks MDRD (S/P/Bld) [Vol rate/Area] 43 mL/min/{1.73_m2} Low >60 [facility] Comment on above: Result Comment: mL/m in/1.73m2 CKD-EPI Creatinine Equation (2020) Performed By: #### L 500.2500, L503.7505, L100.0100 #### [facility] [address] [place], [address] Globulin (S) [Mass/Vol] 3.5 g/dL Normal 2.2-4.2 [facility] Comment on above: Performed By: #### L 500.2500, L503.7505, L100.0100 #### [facility] [address] [place], [address] Glucose [Mass/Vol] 129 mg/dL High 70-99 [facility] Comment on above: Performed By: #### L 500.2500, L503.7505, L100.0100 #### [facility] [address] [place], [address] Potassium [Moles/Vol] 2.7 mmol/L Invalid Interpretation Code 3.3-5.1 [facility] Comment on above: Result Comment: Crit ical Result(s) Called at 11/29/2024 08:16 by Dominick Perera to Alexia Garcia??Results read back by same. Performed By: #### L 500.2500, L503.7505, L100.0100 #### [facility] [address] [place], [address] Sodium [Moles/Vol] 135 mmol/L Normal 133-145 [facility] Comment on above: Performed By: #### L 500.2500, L503.7505, L100.0100 #### [facility] [address] [place], [address] T PROT 6.9 g/dL Normal 5.9-8.4 [facility] Comment on above: Performed By: #### L 500.2500, L503.7505, L100.0100 #### [facility] [address] [place], [address] Urea nitrogen [Mass/Vol] 36 mg/dL High 4-19 [facility] Comment on above: Performed By: #### L 500.2500, L503.7505, L100.0100 #### [facility] [address] [place], [address] Eosinophil percentageOrdered By: Sara Quezada on 11-29-2024 Eosinophils/100 WBC (Bld) 1.0 % 0-5 [facility] Erythrocyte distribution wid th ratioOrdered By: Sara Quezada on 11-29-2024 Erythrocyte distribution width (RBC) [Ratio] 14.5 % 11.6-14.6 [facility] Erythrocyte distribution wid th standard deviationOrdered By: Sara Quezada on 11-29-2024 Erythrocyte distribution width (RBC) [Entitic vol] 48.4 fL High 35.1-43.9 [facility] Erythrocyte distribution width (RBC) [Ratio] 48.4 fl High 35.1-43.9 [facility] Estimation of creatinine emma aranceOrdered By: Sara Quezada on 11-29-2024 Estimated Creatinine Clearance Calc 56.79 ml/min 50-250 [facility] GFR/1.73 sq M.predicted jaime g non-blacks MDRD (S/P/Bld) [Vol rate/Area]Ordered By: Sara Quezada on 11-29-2024 Estimated GFR (MDRD) Non-Af Amer 49 Low >60 [facility] Comment on above: mL/min/1.73m2 CKD-EP I Creatinine Equation (2020) Glomerular filtration rate ( GFR) estimation/1.73 sq m using serum, plasma, or whole bOrdered By: Sara Quezada on 11-29-2024 GFR/1.73 sq M.predicted among non-blacks MDRD (S/P/Bld) [Vol rate/Area] 49 mL/min/{1.73_m2} Low >60 [facility] Comment on above: mL/min/1.73m2 CKD-EP I Creatinine Equation (2020) Hematocrit Auto (Bld) [Volum e fraction]Ordered By: Sara Quezada on 11-29-2024 Hematocrit (Bld) [Volume fraction] 37.0 % Low 40-54 [facility] Hemoglobin measurementOrdere d By: Sara Quezada on 11-29-2024 Hemoglobin (Bld) [Mass/Vol] 12.4 g/dL Low 13.0-16.5 [facility] Immature granulocytes/100 WB C Auto (Bld)Ordered By: Sara Quezada on 11-29-2024 Immature granulocytes/100 WBC (Bld) 0.300 % 0.0-0.9 [facility] Comment on above: IG% - Immature Granu locytes (promyelocytes, myelocytes and metamyelocytes) > 1% indicates that a LEFT SHIFT is Present. Laboratory - Chemistry and C hemistry - challengeOrdered By: Sara Quezada on 11-29-2024 AST [Catalytic activity/Vol] 17 U/L <38 [facility] Lymphocytes Auto (Unsp spec) [#/Vol]Ordered By: Sara Quezada on 11-29-2024 Lymphocytes (Bld) [#/Vol] 1.42 10*3/uL 0.83-4.51 [facility] Lymphocytes/100 WBC Auto (Un sp spec)Ordered By: Sara Quezada on 11-29-2024 Lymphocytes/100 WBC (Bld) 12.9 % Low 19-41 [facility] MCV (mean corpuscular volume ) determinationOrdered By: aSra Quezada on 11-29-2024 MCV (RBC) [Entitic vol] 91.4 fL 80-94 [facility] Magnesiumon 11-29-2024 Magnesium [Mass/Vol] 1.6 mg/dL Normal 1.5-2.2 [facility] Comment on above: Performed By: #### L 500.2500, L503.7505, L100.0100 #### [facility] [place], [address] Magnesium (Unsp spec) [Mass/ Vol]Ordered By: Sara Quezada on 11-29-2024 Magnesium [Mass/Vol] 1.6 mg/dL 1.5-2.2 [facility] Magnesium measurement (mass/ volume)Ordered By: Sara Quezada on 11-29-2024 Magnesium (Unsp spec) [Mass/Vol] 1.6 mg/dL 1.5-2.2 [facility] Mean corpuscular hemoglobin (MCH) determinationOrdered By: Sara Quezada on 11-29-2024 MCH (RBC) [Entitic mass] 30.6 pg 27.0-32.0 [facility] Mean corpuscular hemoglobin concentration (MCHC) determinationOrdered By: Sara Quezada on 11-29-2024 MCHC (RBC) [Mass/Vol] 33.5 g/dL 32-36 [facility] Mean platelet volume determi nationOrdered By: Sara Quezada on 11-29-2024 Platelet mean volume (Bld) [Entitic vol] 8.9 fL 6.2-12.0 [facility] Monocyte percentageOrdered B y: Sara Quezada on 11-29-2024 Monocytes/100 WBC (Bld) 13.7 % High 0-10 [facility] Neutrophil percentageOrdered By: Sara Quezada on 11-29-2024 Neutrophils/100 WBC (Bld) 71.7 % High 47-70 [facility] Nucleated red blood cell per centageOrdered By: Sara Quezada on 11-29-2024 Nucleated RBC/100 WBC (Bld) [Ratio] 0 % 0-5 [facility] Pathologist review Marco (Unsp spec) [Interp]Ordered By: Sara Quezada on 11-29-2024 Differential Pathologist's Review Reviewed [facility] Comment on above: Previous reported re sult: January mick Edited by: MANN on 12/02/24:1353SLIGHT LEUKOCYTOSIS WITH MILD GRANULOCYTOSIS AND NO SIGNFICIANT LEFT SHIFT.NORMOCYTIC NORMOCHROMIC MILD ANEMIA.ADEQUATE PLATELETS.Izabella Graff MD 12/02/2024 AMENDED REPORT 12/02/24 1353 PATH REV previously reported as: Lashae barton Phosphoruson 11-29-2024 Phosphate [Mass/Vol] 2.1 mg/dL Low 2.7-4.5 [facility] Comment on above: Performed By: #### L 500.2500, L503.7505, L100.0100 #### [facility] Laboratory [address] [place], [address] Platelet countOrdered By: Chio Quezada on 11-29-2024 Platelets (Bld) [#/Vol] 377 10*3/uL 150-450 [facility] RBC Auto (Bld) [#/Vol]Ordere d By: Sara Quezada on 11-29-2024 RBC (Bld) [#/Vol] 4.05 10*6/uL Low 4.6-6.2 [facility] Review by pathologistOrdered By: Sara Quezada on 11-29-2024 Pathologist review Marco (Unsp spec) [Interp] Reviewed [facility] Comment on above: Previous reported re sult: Lashae barton Edited by: MANN on 12/02/24:1353SLIGHT LEUKOCYTOSIS WITH MILD GRANULOCYTOSIS AND NO SIGNFICIANT LEFT SHIFT.NORMOCYTIC NORMOCHROMIC MILD ANEMIA.ADEQUATE PLATELETS.Izabella Graff MD 12/02/2024 AMENDED REPORT 12/02/24 1353 PATH REV previously reported as: Lashae barton Serum creatinine measurement (mass/volume)Ordered By: Sara Quezada on 11-29-2024 Creatinine [Mass/Vol] 1.67 mg/dL High 0.70-1.20 [facility] Serum globulin measurementOr dered By: Sara Quezada on 11-29-2024 Globulin (S) [Mass/Vol] 3.5 g/dL 2.2-4.2 [facility] Serum glucose measurement (m ass/volume)Ordered By: Sara Quezada on 11-29-2024 Glucose [Mass/Vol] 101 mg/dL High 70-99 [facility] Serum or plasma alanine cisneros otransferase (ALT) measurementOrdered By: Sara Quezada on 11-29-2024 ALT [Catalytic activity/Vol] 18 U/L <47 [facility] Serum or plasma albumin tran urement (mass/volume)Ordered By: Sara Quezada on 11-29-2024 Albumin [Mass/Vol] 3.4 g/dL Low 3.5-5.0 [facility] Serum or plasma albumin/glob ulin mass ratioOrdered By: Sara Quezada on 11-29-2024 Albumin/Globulin [Mass ratio] 1.0 {ratio} 0.9-2.4 [facility] Serum or plasma alkaline katie sphatase measurementOrdered By: Sara Quezada on 11-29-2024 ALP [Catalytic activity/Vol] 91 U/L 40-129 [facility] Serum or plasma anion gap de termination (moles/volume)Ordered By: Sara Quezada on 11-29-2024 Anion gap [Moles/Vol] 13 mmol/L 5-15 [facility] Serum or plasma calcium tran urement (mass/volume)Ordered By: Sara Quezada on 11-29-2024 Calcium [Mass/Vol] 8.7 mg/dL 7.6-11.0 [facility] Serum or plasma potassium me asurementOrdered By: Sara Quezada on 11-29-2024 Potassium [Moles/Vol] 2.8 mmol/L Low 3.3-5.1 [facility] Serum or plasma sodium measu rement (moles/volume)Ordered By: Sara Quezada on 11-29-2024 Sodium [Moles/Vol] 137 mmol/L 133-145 [facility] Serum or plasma urea nitroge n measurement (mass/volume)Ordered By: Sara Quezada on 11-29-2024 Urea nitrogen [Mass/Vol] 33 mg/dL High 4-19 [facility] Serum phosphorus measurement Ordered By: Sara Quezada on 11-29-2024 Phosphorus Level 2.1 mg/dL Low 2.7-4.5 [facility] TSH DL <= 0.005 mIU/L QnOrde red By: Sara Quezada on 11-29-2024 Thyroid Stimulating Hormone (TSH) 2.560 uIU/mL 0.300-4.20 0 [facility] TSH Qn 2.560 uIU/mL 0.300-4.20 0 [facility] Thyroid Stim Hormone (TSH)on 11-29-2024 TSH 2.560 uIU/mL Normal 0.300-4.20 0 [facility] Comment on above: Performed By: #### L 500.2500, L503.7505, L100.0100 #### [facility] Laboratory [address] [place], [address] Total proteinOrdered By: Sangita Quezada on 11-29-2024 Protein [Mass/Vol] 6.9 g/dL 5.9-8.4 [facility] White blood cell (WBC) count Ordered By: Sara Quezada on 11-29-2024 WBC (Bld) [#/Vol] 11.1 10*3/uL High 4.4-11.0 [facility] Basic Metabolic Profile (BMP )on 11-28-2024 Anion gap [Moles/Vol] 16 mmol/L High 5-15 [facility] Comment on above: Performed By: #### L 500.2500, L503.7505, L100.0100 #### [facility] [address] [place], [address] BUN/CRE 21.1 RATIO High 10-20 [facility] Comment on above: Performed By: #### L 500.2500, L503.7505, L100.0100 #### [facility] [address] [place], [address] Calcium [Mass/Vol] 8.9 mg/dL Normal 7.6-11.0 [facility] Comment on above: Performed By: #### L 500.2500, L503.7505, L100.0100 #### [facility] [address] [place], [address] Chloride [Moles/Vol] 102 mmol/L Normal 96-108 [facility] Comment on above: Performed By: #### L 500.2500, L503.7505, L100.0100 #### [facility] [address] [place], [address] CO2 [Moles/Vol] 14.7 mmol/L Low 22.0-29.0 [facility] Comment on above: Performed By: #### L 500.2500, L503.7505, L100.0100 #### [facility] [address] [place], [address] Creatinine [Mass/Vol] 2.18 mg/dL High 0.70-1.20 [facility] Comment on above: Performed By: #### L 500.2500, L503.7505, L100.0100 #### [facility] [address] [place], [address] ECRCL 43.51 ml/min Normal [facility] Comment on above: Performed By: #### L 500.2500, L503.7505, L100.0100 #### [facility] [address] [place], [address] GFR/1.73 sq M.predicted among non-blacks MDRD (S/P/Bld) [Vol rate/Area] 36 mL/min/{1.73_m2} Low >60 [facility] Comment on above: Result Comment: mL/m in/1.73m2 CKD-EPI Creatinine Equation (2020) Performed By: #### L 500.2500, L503.7505, L100.0100 #### [facility] [address] [place], [address] Glucose [Mass/Vol] 122 mg/dL High 70-99 [facility] Comment on above: Performed By: #### L 500.2500, L503.7505, L100.0100 #### [facility] [address] [place], [address] Potassium [Moles/Vol] 2.8 mmol/L Low 3.3-5.1 [facility] Comment on above: Performed By: #### L 500.2500, L503.7505, L100.0100 #### [facility] [address] [place], [address] Sodium [Moles/Vol] 133 mmol/L Normal 133-145 [facility] Comment on above: Performed By: #### L 500.2500, L503.7505, L100.0100 #### [facility] [address] [place], [address] Urea nitrogen [Mass/Vol] 46 mg/dL High 4-19 [facility] Comment on above: Performed By: #### L 500.2500, L503.7505, L100.0100 #### [facility] [address] [place], [address] Anion gap [Moles/Vol] 16 mmol/L High 5-15 [facility] Comment on above: Performed By: #### L 500.2500 ####[facility] [address] [place], [address] BUN/CRE 21.2 RATIO High 10-20 [facility] Comment on above: Performed By: #### L 500.2500 ####[facility] [address] [place], [address] Calcium [Mass/Vol] 8.9 mg/dL Normal 7.6-11.0 [facility] Comment on above: Performed By: #### L 500.2500 ####[facility] [address] [place], [address] Chloride [Moles/Vol] 102 mmol/L Normal 96-108 [facility] Comment on above: Performed By: #### L 500.2500 ####[facility] [address] [place], [address] CO2 [Moles/Vol] 13.6 mmol/L Low 22.0-29.0 [facility] Comment on above: Performed By: #### L 500.2500 ####[facility] [address] [place], [address] Creatinine [Mass/Vol] 2.20 mg/dL High 0.70-1.20 [facility] Comment on above: Performed By: #### L 500.2500 ####[facility] [address] [place], [address] ECRCL 43.11 ml/min Normal [facility] Comment on above: Performed By: #### L 500.2500 ####[facility] [address] [place], [address] GFR/1.73 sq M.predicted among non-blacks MDRD (S/P/Bld) [Vol rate/Area] 35 mL/min/{1.73_m2} Low >60 [facility] Comment on above: Result Comment: mL/m in/1.73m2 CKD-EPI Creatinine Equation (2020) Performed By: #### L 500.2500 ####[facility] [address] [place], [address] Glucose [Mass/Vol] 125 mg/dL High 70-99 [facility] Comment on above: Performed By: #### L 500.2500 ####[facility] [address] [place], [address] Potassium [Moles/Vol] 3.0 mmol/L Low 3.3-5.1 [facility] Comment on above: Performed By: #### L 500.2500 ####[facility] [address] [place], [address] Sodium [Moles/Vol] 132 mmol/L Low 133-145 [facility] Comment on above: Performed By: #### L 500.2500 ####[facility] [address] [place], [address] Urea nitrogen [Mass/Vol] 47 mg/dL High 4-19 [facility] Comment on above: Performed By: #### L 500.2500 ####[facility] [id number] [place], [address] CBC W/Diff, Automatedon 03-0 1-2025 Absolute Lymph 0.85 X10 3/uL Normal 0.83-4.51 [facility] Comment on above: Performed By: #### L 500.2500, L503.7505, L100.0100 #### [facility] [address] [place], [address] Absolute Neut 7.9 X10 3/uL High 2.0-7.7 [facility] Comment on above: Performed By: #### L 500.2500, L503.7505, L100.0100 #### [facility] [address] [place], [address] Basophils/100 WBC (Bld) 0.4 % Normal 0-1 [facility] Comment on above: Performed By: #### L 500.2500, L503.7505, L100.0100 #### [facility] [address] [place], [address] Eosinophils/100 WBC (Bld) 0.6 % Normal 0-5 [facility] Comment on above: Performed By: #### L 500.2500, L503.7505, L100.0100 #### [facility] [address] [place], [address] Erythrocyte distribution width (RBC) [Ratio] 14.5 % Normal 11.6-14.6 [facility] Comment on above: Performed By: #### L 500.2500, L503.7505, L100.0100 #### [facility] [address] [place], [address] Hematocrit (Bld) [Volume fraction] 40.7 % Normal 40-54 [facility] Comment on above: Performed By: #### L 500.2500, L503.7505, L100.0100 #### [facility] [address] [place], [address] Hemoglobin (Bld) [Mass/Vol] 13.6 g/dL Normal 13.0-16.5 [facility] Comment on above: Performed By: #### L 500.2500, L503.7505, L100.0100 #### [facility] [address] [place], [address] IG% 0.500 Normal 0.0-0.9 [facility] Comment on above: Result Comment: IG% - Immature Granulocytes (promyelocytes, myelocytes and metamyelocytes) > 1% indicates that a LEFT SHIFT is Present. Performed By: #### L 500.2500, L503.7505, L100.0100 #### [facility] [address] [place], [address] Lymphocytes/100 WBC (Bld) 8.2 % Low 19-41 [facility] [facility] Comment on above: Performed By: #### L 500.2500, L503.7505, L100.0100 #### [facility] [address] [place], [address] MCH (RBC) [Entitic mass] 30.8 pg Normal 27.0-32.0 [facility] Comment on above: Performed By: #### L 500.2500, L503.7505, L100.0100 #### [facility] [address] [place], [address] MCHC (RBC) [Mass/Vol] 33.4 g/dL Normal 32-36 [facility] Comment on above: Performed By: #### L 500.2500, L503.7505, L100.0100 #### [facility] [address] [place], [address] MCV (RBC) [Entitic vol] 92.1 fL Normal 80-94 [facility] Comment on above: Performed By: #### L 500.2500, L503.7505, L100.0100 #### [facility] [address] [place], [address] Monocytes/100 WBC (Bld) 13.8 % High 0-10 [facility] Comment on above: Performed By: #### L 500.2500, L503.7505, L100.0100 #### [facility] [address] [place], [address] Neutrophils/100 WBC (Bld) 76.5 % High 47-70 [facility] Comment on above: Performed By: #### L 500.2500, L503.7505, L100.0100 #### [facility] [address] [place], [address] Nucleated RBC (Bld) [#/Vol] 0 10*3/uL Normal 0-5 [facility] Comment on above: Performed By: #### L 500.2500, L503.7505, L100.0100 #### [facility] [address] [place], [address] Platelet mean volume (Bld) [Entitic vol] 8.5 fL Normal 6.2-12.0 [facility] Comment on above: Performed By: #### L 500.2500, L503.7505, L100.0100 #### [facility] [address] [place], [address] Platelets (Bld) [#/Vol] 383 10*3/uL Normal 150-450 [facility] Comment on above: Performed By: #### L 500.2500, L503.7505, L100.0100 #### [facility] [address] [place], [address] RBC (Bld) [#/Vol] 4.42 10*6/uL Low 4.6-6.2 [facility] Comment on above: Performed By: #### L 500.2500, L503.7505, L100.0100 #### [facility] [address] [place], [address] RDW [place] 49.2 fl High 35.1-43.9 [facility] Comment on above: Performed By: #### L 500.2500, L503.7505, L100.0100 #### [facility] [address] [place], [address] WBC (Bld) [#/Vol] 10.3 10*3/uL Normal 4.4-11.0 [facility] Comment on above: Performed By: #### L 500.2500, L503.7505, L100.0100 #### [facility] [address] [place], [address] Comprehensive Metabolic Prof nmon 11-28-2024 Albumin [Mass/Vol] 3.9 g/dL Normal 3.5-5.0 [facility] Comment on above: Performed By: #### L 500.2500, L503.7505, L100.0100 #### [facility] [address] [place], [address] Albumin/Globulin [Mass ratio] 1.0 {ratio} Normal 0.9-2.4 [facility] Comment on above: Performed By: #### L 500.2500, L503.7505, L100.0100 #### [facility] [address] [place], [address] ALK PHOS 105 U/L Normal 40-129 [facility] Comment on above: Performed By: #### L 500.2500, L503.7505, L100.0100 #### [facility] [address] [place], [address] ALT [Catalytic activity/Vol] 27 U/L Normal <=46 [facility] Comment on above: Performed By: #### L 500.2500, L503.7505, L100.0100 #### [facility] [address] [place], [address] Anion gap [Moles/Vol] 16 mmol/L High 5-15 [facility] Comment on above: Performed By: #### L 500.2500, L503.7505, L100.0100 #### [facility] [address] [place], [address] AST [Catalytic activity/Vol] 20 U/L Normal <=37 [facility] Comment on above: Performed By: #### L 500.2500, L503.7505, L100.0100 #### [facility] [address] [place], [address] Bilirubin [Mass/Vol] 0.20 mg/dL Normal 0.00-1.30 [facility] Comment on above: Performed By: #### L 500.2500, L503.7505, L100.0100 #### [facility] [address] [place], [address] BUN/CRE 21.1 RATIO High 10-20 [facility] Comment on above: Performed By: #### L 500.2500, L503.7505, L100.0100 #### [facility] [address] [place], [address] Calcium [Mass/Vol] 9.2 mg/dL Normal 7.6-11.0 [facility] Comment on above: Performed By: #### L 500.2500, L503.7505, L100.0100 #### [facility] [address] [place], [address] Chloride [Moles/Vol] 100 mmol/L Normal 96-108 [facility] Comment on above: Performed By: #### L 500.2500, L503.7505, L100.0100 #### [facility] [address] [place], [address] CO2 [Moles/Vol] 15.7 mmol/L Low 22.0-29.0 [facility] Comment on above: Performed By: #### L 500.2500, L503.7505, L100.0100 #### [facility] [address] [place], [address] Creatinine [Mass/Vol] 2.22 mg/dL High 0.70-1.20 [facility] Comment on above: Performed By: #### L 500.2500, L503.7505, L100.0100 #### [facility] [address] [place], [address] ECRCL 42.72 ml/min Normal [facility] Comment on above: Performed By: #### L 500.2500, L503.7505, L100.0100 #### [facility] [address] [place], [address] GFR/1.73 sq M.predicted among non-blacks MDRD (S/P/Bld) [Vol rate/Area] 35 mL/min/{1.73_m2} Low >60 [facility] Comment on above: Result Comment: mL/m in/1.73m2 CKD-EPI Creatinine Equation (2020) Performed By: #### L 500.2500, L503.7505, L100.0100 #### [facility] [address] [place], [address] Globulin (S) [Mass/Vol] 4.0 g/dL Normal 2.2-4.2 [facility] Comment on above: Performed By: #### L 500.2500, L503.7505, L100.0100 #### [facility] [address] [place], [address] Glucose [Mass/Vol] 132 mg/dL High 70-99 [facility] Comment on above: Performed By: #### L 500.2500, L503.7505, L100.0100 #### [facility] [address] [place], [address] Potassium [Moles/Vol] 3.2 mmol/L Low 3.3-5.1 [facility] Comment on above: Performed By: #### L 500.2500, L503.7505, L100.0100 #### [facility] [address] [place], [address] Sodium [Moles/Vol] 132 mmol/L Low 133-145 [facility] Comment on above: Performed By: #### L 500.2500, L503.7505, L100.0100 #### [facility] [address] [place], [address] T PROT 7.9 g/dL Normal 5.9-8.4 [facility] Comment on above: Performed By: #### L 500.2500, L503.7505, L100.0100 #### [facility] [address] [place], [address] Urea nitrogen [Mass/Vol] 47 mg/dL High 4-19 [facility] Comment on above: Performed By: #### L 500.2500, L503.7505, L100.0100 #### [facility] [address] [place], [address] Creatinine, Urine (random)on 11-28-2024 UR CREAT 96.10 mg/dL Normal 39-259 [facility] Comment on above: Performed By: #### L 100.0100 #### [facility] [address] [place], [address] Magnesiumon 11-28-2024 Magnesium [Mass/Vol] 1.3 mg/dL Low 1.5-2.2 [facility] Comment on above: Performed By: #### L 500.2500, L503.7505, L100.0100 #### [facility] [address] [place], [address] Phosphoruson 11-28-2024 Phosphate [Mass/Vol] 3.0 mg/dL Normal 2.7-4.5 [facility] Comment on above: Performed By: #### L 500.2500, L503.7505, L100.0100 #### [facility] [address] [place], [address] Urinalysis, Completeon 11-28 CAST,FINE GRAN 10-25 SEEN Normal 0-5 [facility] Comment on above: Order Comment: CLEAN CATCH Performed By: #### L 400.0001 ####[facility] [id number] [place], [address] Mucus Ql (Urine sed) RARE Normal [facility] Comment on above: Order Comment: CLEAN CATCH Performed By: #### L 400.0001 ####[facility] [address] [place], [address] BACTERIA RARE Normal None Seen [facility] Comment on above: Order Comment: CLEAN CATCH Performed By: #### L 400.0001 ####[facility] [address] [place], [address] EPI,SQUAMOUS 0-5 SEEN Normal 0-5 [facility] Comment on above: Order Comment: CLEAN CATCH Performed By: #### L 400.0001 ####[facility] [address] [place], [address] RBC 0 SEEN Normal 0-5 [facility] Comment on above: Order Comment: CLEAN CATCH Performed By: #### L 400.0001 ####[facility] [address] [place], [address] WBC 5-10 SEEN Normal 0-5 [facility] Comment on above: Order Comment: CLEAN CATCH Performed By: #### L 400.0001 ####[facility] [address] [place], [address] BILIRUBIN URINE Negative Normal Negative [facility] Comment on above: Order Comment: CLEAN CATCH Performed By: #### L 400.0001 ####[facility] [address] [place], [address] Clarity (U) Clear Normal Clear [facility] Comment on above: Order Comment: CLEAN CATCH Performed By: #### L 400.0001 ####[facility] [address] [place], [address] Color (U) Straw Normal Yellow [facility] Comment on above: Order Comment: CLEAN CATCH Performed By: #### L 400.0001 ####[facility] [address] [place], [address] GLUCOSE, UR Normal Normal Normal [facility] Comment on above: Order Comment: CLEAN CATCH Performed By: #### L 400.0001 ####[facility] [address] [place], [address] KETONE UR Negative Normal Negative [facility] Comment on above: Order Comment: CLEAN CATCH Performed By: #### L 400.0001 ####[facility] [address] [place], [address] LEUK ESTERASE Negative Normal Negative [facility] Comment on above: Order Comment: CLEAN CATCH Performed By: #### L 400.0001 ####[facility] [address] [place], [address] Nitrite Ql (U) Negative Normal Negative [facility] Comment on above: Order Comment: CLEAN CATCH Performed By: #### L 400.0001 ####[facility] [address] [place], [address] OCCULT BLOOD-UR 25 /ul Abnormal Negative [facility] Comment on above: Order Comment: CLEAN CATCH Performed By: #### L 400.0001 ####[facility] [address] [place], [address] pH UR 6.0 Normal 5.0 - 8.0 [facility] Comment on above: Order Comment: CLEAN CATCH Performed By: #### L 400.0001 ####[facility] [address] [place], [address] PROT DIPSTX 30 mg/dl Abnormal Negative [facility] Comment on above: Order Comment: CLEAN CATCH Performed By: #### L 400.0001 ####[facility] [address] [place], [address] SP.GR. DIPSTX 1.015 Normal 1.002-1.03 0 [facility] Comment on above: Order Comment: CLEAN CATCH Performed By: #### L 400.0001 ####[facility] [address] [place], [address] UROBILI Normal Normal Normal [facility] Comment on above: Order Comment: CLEAN CATCH Performed By: #### L 400.0001 ####[facility] [address] [place], [address] Urine Sodiumon 11-28-2024 UR NA < 20 Normal Not Establ. [facility] Comment on above: Performed By: #### L 100.0100 #### [facility] [address] [place], [address] Arterial patency Wrist arter y --pre arterial punctureOrdered By: Sara Quezada on 11-27-2024 Albin Test Positive [facility] Assessment of wrist artery p atency prior to arterial punctureOrdered By: Sara Quezada on 11-27-2024 Arterial patency Wrist artery --pre arterial puncture Positive [facility] Bacteria LM.HPF (Urine sed) [#/Area]Ordered By: Sara Quezada on 11-27-2024 Urine Bacteria RARE /hpf None Seen [facility] Base excess Calc (BldV) [Mol es/Vol]Ordered By: Sara Quezada on 11-27-2024 Blood Gas Base Excess -18 mmol/L Low -2-2 [facility] Basic Metabolic Profile (BMP )on 11-27-2024 Anion gap [Moles/Vol] 15 mmol/L Normal 5-15 [facility] Comment on above: Performed By: #### L 500.2500 ####[facility] [address] [place], [address] BUN/CRE 22.2 RATIO High 10-20 [facility] Comment on above: Performed By: #### L 500.2500 ####[facility] [address] [place], [address] Calcium [Mass/Vol] 8.7 mg/dL Normal 7.6-11.0 [facility] Comment on above: Performed By: #### L 500.2500 ####[facility] [address] [place], [address] Chloride [Moles/Vol] 104 mmol/L Normal 96-108 [facility] Comment on above: Performed By: #### L 500.2500 ####[facility] [address] [place], [address] CO2 [Moles/Vol] 12.9 mmol/L Low 22.0-29.0 [facility] Comment on above: Performed By: #### L 500.2500 ####[facility] [address] [place], [address] Creatinine [Mass/Vol] 2.19 mg/dL High 0.70-1.20 [facility] Comment on above: Performed By: #### L 500.2500 ####[facility] [address] [place], [address] ECRCL 43.31 ml/min Normal [facility] Comment on above: Performed By: #### L 500.2500 ####[facility] [address] [place], [address] GFR/1.73 sq M.predicted among non-blacks MDRD (S/P/Bld) [Vol rate/Area] 35 mL/min/{1.73_m2} Low >60 [facility] Comment on above: Result Comment: mL/m in/1.73m2 CKD-EPI Creatinine Equation (2020) Performed By: #### L 500.2500 ####[facility] [address] [place], [address] Glucose [Mass/Vol] 113 mg/dL High 70-99 [facility] Comment on above: Performed By: #### L 500.2500 ####[facility] [address] [place], [address] Potassium [Moles/Vol] 2.9 mmol/L Low 3.3-5.1 [facility] Comment on above: Performed By: #### L 500.2500 ####[facility] [address] [place], [address] Sodium [Moles/Vol] 132 mmol/L Low 133-145 [facility] Comment on above: Performed By: #### L 500.2500 ####[facility] [address] [place], [address] Urea nitrogen [Mass/Vol] 49 mg/dL High 4-19 [facility] Comment on above: Performed By: #### L 500.2500 ####[facility] [address] [place], [address] Anion gap [Moles/Vol] 14 mmol/L Normal 5-15 [facility] Comment on above: Performed By: #### L 500.2500 ####[facility] [address] [place], [address] BUN/CRE 21.9 RATIO High 10-20 [facility] Comment on above: Performed By: #### L 500.2500 ####[facility] [address] [place], [address] Calcium [Mass/Vol] 8.5 mg/dL Normal 7.6-11.0 [facility] Comment on above: Performed By: #### L 500.2500 ####[facility] [address] [place], [address] Chloride [Moles/Vol] 105 mmol/L Normal 96-108 [facility] Comment on above: Performed By: #### L 500.2500 ####[facility] [address] [place], [address] CO2 [Moles/Vol] 14.6 mmol/L Low 22.0-29.0 [facility] Comment on above: Performed By: #### L 500.2500 ####[facility] [address] [place], [address] Creatinine [Mass/Vol] 2.27 mg/dL High 0.70-1.20 [facility] Comment on above: Performed By: #### L 500.2500 ####[facility] [address] [place], [address] ECRCL 41.78 ml/min Normal [facility] Comment on above: Performed By: #### L 500.2500 ####[facility] [address] [place], [address] GFR/1.73 sq M.predicted among non-blacks MDRD (S/P/Bld) [Vol rate/Area] 34 mL/min/{1.73_m2} Low >60 [facility] Comment on above: Result Comment: mL/m in/1.73m2 CKD-EPI Creatinine Equation (2020) Performed By: #### L 500.2500 ####[facility] [address] [place], [address] Glucose [Mass/Vol] 92 mg/dL Normal 70-99 [facility] Comment on above: Performed By: #### L 500.2500 ####[facility] [address] [place], [address] Potassium [Moles/Vol] 3.0 mmol/L Low 3.3-5.1 [facility] Comment on above: Performed By: #### L 500.2500 ####[facility] [address] [place], [address] Sodium [Moles/Vol] 134 mmol/L Normal 133-145 [facility] Comment on above: Performed By: #### L 500.2500 ####[facility] [address] [place], [address] Urea nitrogen [Mass/Vol] 50 mg/dL High 4-19 [facility] Comment on above: Performed By: #### L 500.2500 ####[facility] [address] [place], [address] Anion gap [Moles/Vol] 15 mmol/L Normal 5-15 [facility] Comment on above: Performed By: #### L 500.2500, L503.7505, L100.0100 #### [facility] [address] [place], [address] BUN/CRE 20.4 RATIO High 10-20 [facility] Comment on above: Performed By: #### L 500.2500, L503.7505, L100.0100 #### [facility] [address] [place], [address] Calcium [Mass/Vol] 8.9 mg/dL Normal 7.6-11.0 [facility] Comment on above: Performed By: #### L 500.2500, L503.7505, L100.0100 #### [facility] [address] [place], [address] Chloride [Moles/Vol] 104 mmol/L Normal 96-108 [facility] Comment on above: Performed By: #### L 500.2500, L503.7505, L100.0100 #### [facility] [address] [place], [address] CO2 [Moles/Vol] 11.0 mmol/L Low 22.0-29.0 [facility] Comment on above: Performed By: #### L 500.2500, L503.7505, L100.0100 #### [facility] [address] [place], [address] Creatinine [Mass/Vol] 2.47 mg/dL High 0.70-1.20 [facility] Comment on above: Performed By: #### L 500.2500, L503.7505, L100.0100 #### [facility] [address] [place], [address] ECRCL 38.40 ml/min Normal [facility] Comment on above: Performed By: #### L 500.2500, L503.7505, L100.0100 #### [facility] [address] [place], [address] GFR/1.73 sq M.predicted among non-blacks MDRD (S/P/Bld) [Vol rate/Area] 31 mL/min/{1.73_m2} Low >60 [facility] Comment on above: Result Comment: mL/m in/1.73m2 CKD-EPI Creatinine Equation (2020) Performed By: #### L 500.2500, L503.7505, L100.0100 #### [facility] [address] [place], [address] Glucose [Mass/Vol] 98 mg/dL Normal 70-99 [facility] Comment on above: Performed By: #### L 500.2500, L503.7505, L100.0100 #### [facility] [address] [place], [address] Potassium [Moles/Vol] 3.2 mmol/L Low 3.3-5.1 [facility] Comment on above: Performed By: #### L 500.2500, L503.7505, L100.0100 #### [facility] [address] [place], [address] Sodium [Moles/Vol] 130 mmol/L Low 133-145 [facility] Comment on above: Performed By: #### L 500.2500, L503.7505, L100.0100 #### [facility] [address] [place], [address] Urea nitrogen [Mass/Vol] 50 mg/dL High 4-19 [facility] Comment on above: Performed By: #### L 500.2500, L503.7505, L100.0100 #### [facility] [address] [place], [address] Anion gap [Moles/Vol] 14 mmol/L Normal 5-15 [facility] Comment on above: Performed By: #### L 500.2500 ####[facility] [address] [place], [address] BUN/CRE 21.2 RATIO High 10-20 [facility] Comment on above: Performed By: #### L 500.2500 ####[facility] [address] [place], [address] Calcium [Mass/Vol] 9.1 mg/dL Normal 7.6-11.0 [facility] Comment on above: Performed By: #### L 500.2500 ####[facility] [address] [place], [address] Chloride [Moles/Vol] 104 mmol/L Normal 96-108 [facility] Comment on above: Performed By: #### L 500.2500 ####[facility] [address] [place], [address] CO2 [Moles/Vol] 13.0 mmol/L Low 22.0-29.0 [facility] Comment on above: Performed By: #### L 500.2500 ####[facility] [address] [place], [address] Creatinine [Mass/Vol] 2.41 mg/dL High 0.70-1.20 [facility] Comment on above: Performed By: #### L 500.2500 ####[facility] [address] [place], [address] ECRCL 39.35 ml/min Normal [facility] Comment on above: Performed By: #### L 500.2500 ####[facility] [address] [place], [address] GFR/1.73 sq M.predicted among non-blacks MDRD (S/P/Bld) [Vol rate/Area] 32 mL/min/{1.73_m2} Low >60 [facility] Comment on above: Result Comment: mL/m in/1.73m2 CKD-EPI Creatinine Equation (2020) Performed By: #### L 500.2500 ####[facility] [address] [place], [address] Glucose [Mass/Vol] 88 mg/dL Normal 70-99 [facility] Comment on above: Performed By: #### L 500.2500 ####[facility] [address] [place], [address] Potassium [Moles/Vol] 3.3 mmol/L Normal 3.3-5.1 [facility] Comment on above: Performed By: #### L 500.2500 ####[facility] [address] [place], [address] Sodium [Moles/Vol] 131 mmol/L Low 133-145 [facility] Comment on above: Performed By: #### L 500.2500 ####[facility] [address] [place], [address] Urea nitrogen [Mass/Vol] 51 mg/dL High 4-19 [facility] Comment on above: Performed By: #### L 500.2500 ####[facility] [address] [place], [address] Anion gap [Moles/Vol] 15 mmol/L Normal 5-15 [facility] Comment on above: Performed By: #### L 500.2500 ####[facility] [address] [place], [address] BUN/CRE 20.9 RATIO High 10-20 [facility] Comment on above: Performed By: #### L 500.2500 ####[facility] [address] [place], [address] Calcium [Mass/Vol] 9.3 mg/dL Normal 7.6-11.0 [facility] Comment on above: Performed By: #### L 500.2500 ####[facility] [address] [place], [address] Chloride [Moles/Vol] 105 mmol/L Normal 96-108 [facility] Comment on above: Performed By: #### L 500.2500 ####[facility] [address] [place], [address] CO2 [Moles/Vol] 9.0 mmol/L Invalid Interpretation Code 22.0-29.0 [facility] Comment on above: Result Comment: Crit ical Result(s) Called at 1004: by: Huong Ivy to [facility].??Results read back by same. Performed By: #### L 500.2500 ####[facility] [address] [place], [address] Creatinine [Mass/Vol] 2.42 mg/dL High 0.70-1.20 [facility] Comment on above: Performed By: #### L 500.2500 ####[facility] [address] [place], [address] ECRCL 39.19 ml/min Normal [facility] Comment on above: Performed By: #### L 500.2500 ####[facility] [address] [place], [address] GFR/1.73 sq M.predicted among non-blacks MDRD (S/P/Bld) [Vol rate/Area] 31 mL/min/{1.73_m2} Low >60 [facility] Comment on above: Result Comment: mL/m in/1.73m2 CKD-EPI Creatinine Equation (2020) Performed By: #### L 500.2500 ####[facility] [address] [place], [address] Glucose [Mass/Vol] 106 mg/dL High 70-99 [facility] Comment on above: Performed By: #### L 500.2500 ####[facility] [address] [place], [address] Potassium [Moles/Vol] 3.7 mmol/L Normal 3.3-5.1 [facility] Comment on above: Performed By: #### L 500.2500 ####[facility] [address] [place], [address] Sodium [Moles/Vol] 129 mmol/L Low 133-145 [facility] Comment on above: Performed By: #### L 500.2500 ####[facility] [address] [place], [address] Urea nitrogen [Mass/Vol] 51 mg/dL High 4-19 [facility] Comment on above: Performed By: #### L 500.2500 ####[facility] [address] [place], [address] Bilirubin Test strip Ql (U)O rdered By: Sara Quezada on 11-27-2024 Bilirubin Ql (U) Negative Negative [facility] Blood Gases by [facility] 025 ALBIN TEST Positive Normal [facility] Comment on above: Performed By: #### L 9000.0800 ####[facility] [address] [place], [address] Base excess Calc (Bld) [Moles/Vol] -18 mmol/L Low -2 to +2 [facility] Comment on above: Performed By: #### L 9000.0800 ####[facility] [address] [place], [address] Blood Gas Type ART Normal [facility] Comment on above: Performed By: #### L 9000.0800 ####[facility] [address] [place], [address] CO2 [Moles/Vol] 11 mmol/L Normal [facility] Comment on above: Performed By: #### L 9000.0800 ####[facility] [address] [place], [address] HCO3 (Bld) [Moles/Vol] 10.0 mmol/L Low 22-26 [facility] Comment on above: Performed By: #### L 9000.0800 ####[facility] [address] [place], [address] Mode Not entered Normal [facility] Comment on above: Performed By: #### L 9000.0800 ####[facility] [address] [place], [address] O2 Delivery Dev Room Air Normal [facility] Comment on above: Performed By: #### L 9000.0800 ####[facility] [address] [place], [address] pCO2 25.7 mmHg Low 35-45 [facility] Comment on above: Performed By: #### L 9000.0800 ####[facility] [address] [place], [address] pH (Bld) 7.20 [pH] Low 7.35-7.45 [facility] Comment on above: Performed By: #### L 9000.0800 ####[facility] [address] [place], [address] PO2 91 mmHG Normal 75-100 [facility] Comment on above: Performed By: #### L 9000.0800 ####[facility] [address] [place], [address] Read Back By Yes [facility] Comment on above: Performed By: #### L 9000.0800 ####[facility] [address] [place], [address] Results To [facility] Comment on above: Performed By: #### L 9000.0800 ####[facility] [address] [place], [address] SITE R Radial Normal [facility] Comment on above: Performed By: #### L 9000.0800 ####[facility] [address] [place], [address] SO2 95 Normal 95-99 [facility] Comment on above: Performed By: #### L 9000.0800 ####[facility] [address] [place], [address] Time Given 10:28:10 [facility] Comment on above: Performed By: #### L 9000.0800 ####[facility] [address] [place], [address] Blood base excess determinat ionOrdered By: Sara Quezada on 11-27-2024 Base excess Calc (BldV) [Moles/Vol] -18 mmol/L Low -2-2 [facility] Blood bicarbonate measuremen tOrdered By: Sara Quezada on 11-27-2024 Blood Gas Bicarbonate Actual 10.0 mmol/L Low - [facility] HCO3 (Bld) [Moles/Vol] 10.0 mmol/L Low - [facility] CBC W/Diff, Automatedon 11-01 Absolute Lymph 0.57 X10 3/uL Low 0.83-4.51 [facility] Comment on above: Performed By: #### L 100.0100 #### [facility] Laboratory [address] [place], [address] Absolute Neut 7.7 X10 3/uL Normal 2.0-7.7 [facility] Comment on above: Performed By: #### L 100.0100 #### [facility] [address] [place], [address] Basophils/100 WBC (Bld) 0.3 % Normal 0-1 [facility] Comment on above: Performed By: #### L 100.0100 #### [facility] [address] [place], [address] Eosinophils/100 WBC (Bld) 0.8 % Normal 0-5 [facility] Comment on above: Performed By: #### L 100.0100 #### [facility] [address] [place], [address] Erythrocyte distribution width (RBC) [Ratio] 14.8 % High 11.6-14.6 [facility] Comment on above: Performed By: #### L 100.0100 #### [facility] [address] [place], [address] Hematocrit (Bld) [Volume fraction] 43.1 % Normal 40-54 [facility] Comment on above: Performed By: #### L 100.0100 #### [facility] [address] [place], [address] Hemoglobin (Bld) [Mass/Vol] 13.7 g/dL Normal 13.0-16.5 [facility] Comment on above: Performed By: #### L 100.0100 #### [facility] [address] [place], [address] IG% 0.600 Normal 0.0-0.9 [facility] Comment on above: Result Comment: IG% - Immature Granulocytes (promyelocytes, myelocytes and metamyelocytes) > 1% indicates that a LEFT SHIFT is Present. Performed By: #### L 100.0100 #### [facility] [address] [place], [address] Lymphocytes/100 WBC (Bld) 5.8 % Low 19-41 [facility] Comment on above: Performed By: #### L 100.0100 #### [facility] [address] [place], [address] MCH (RBC) [Entitic mass] 30.4 pg Normal 27.0-32.0 [facility] Comment on above: Performed By: #### L 100.0100 #### [facility] [address] [place], [address] MCHC (RBC) [Mass/Vol] 31.8 g/dL Low 32-36 [facility] Comment on above: Performed By: #### L 100.0100 #### [facility] [address] [place], [address] MCV (RBC) [Entitic vol] 95.6 fL High 80-94 [facility] Comment on above: Performed By: #### L 100.0100 #### [facility] [address] [place], [address] Monocytes/100 WBC (Bld) 13.5 % High 0-10 [facility] Comment on above: Performed By: #### L 100.0100 #### [facility] [address] [place], [address] Neutrophils/100 WBC (Bld) 79.0 % High 47-70 [facility] Comment on above: Performed By: #### L 100.0100 #### [facility] [address] [place], [address] Nucleated RBC (Bld) [#/Vol] 0.2 10*3/uL Normal 0-5 [facility] Comment on above: Performed By: #### L 100.0100 #### [facility] [address] [place], [address] Platelet mean volume (Bld) [Entitic vol] 8.5 fL Normal 6.2-12.0 [facility] Comment on above: Performed By: #### L 100.0100 #### [facility] [address] [place], [address] Platelets (Bld) [#/Vol] 381 10*3/uL Normal 150-450 [facility] Comment on above: Performed By: #### L 100.0100 #### [facility] [address] [place], [address] RBC (Bld) [#/Vol] 4.51 10*6/uL Low 4.6-6.2 [facility] Comment on above: Performed By: #### L 100.0100 #### [facility] [address] [place], [address] RDW SD 52.1 fl High 35.1-43.9 [facility] Comment on above: Performed By: #### L 100.0100 #### [facility] [address] [place], [address] WBC (Bld) [#/Vol] 9.8 10*3/uL Normal 4.4-11.0 [facility] Comment on above: Performed By: #### L 100.0100 #### [facility] [address] [place], [address] Creatinine Unsp time (U) [Ma ss/Vol]Ordered By: Sara Quezada on 11-27-2024 Creatinine (U) [Mass/Vol] 96.10 mg/dL 39-259 [facility] Epithelial cells.squamous LM Ql (Urine sed)Ordered By: Sara Quezada on 11-27-2024 Epithelial cells.squamous LM.HPF (Urine sed) [#/Area] 0 /[HPF] 0-5 [facility] Fine Granular Casts LM.LPF ( Urine sed) [#/Area]Ordered By: Sara Quezada on 11-27-2024 Urine Fine Granular Casts 10-25 SEEN /lpf 0-5 [facility] Glucose Ql (U)Ordered By: Chio Quezada on 11-27-2024 Urine Glucose (UA) Normal mg/dl Normal [facility] Ketones Test strip Ql (U)Ord ered By: Sara Quezada on 11-27-2024 Ketones Ql (U) Negative Negative [facility] Kidney and Bladderon 025 Kidney and Bladder [facility] [address] [place], [place] [address] Kidney and Bladder MR#: [id number] Acct: [id number] Name: RAGHAVENDRA BURROWS Rep #: [id number] : 1970 M 54 From: Fany Cherry MD PCP: Dr. Harjeet Bernard MD Status: ADM IN Study: Kidney and Bladder Date of Exam: 11/27/24 Exam# [id number] Ordering Dr: Sara Quezada DO PROCEDURE: KIDNEY [...] superior to the left kidney. Reading Location: [facility] CC: Dr. Sara Quezada DO; Dr. Harjeet Bernard MD [employer]: Signed Normal [facility] Measurement, pHOrdered By: Dmitriy Quezada on 11-27-2024 pH (Unsp spec) 7.20 [pH] Low 7.35-7.45 [facility] Microscopic analysis of urin e for red blood cells (RBC)Ordered By: Sara Quezada on 11-27-2024 Microscopic analysis of urine for red blood cells (RBC) 0 SEEN /hpf 0-5 [facility] Urine RBC 0 SEEN /hpf 0-5 [facility] Mucus LM Ql (Urine sed)Order ed By: Sara Quezada on 11-27-2024 Mucus Ql (Urine sed) RARE /hpf [facility] Nitrite Test strip Ql (U)Ord ered By: Sara Quezada on 11-27-2024 Nitrite Ql (U) Negative Negative [facility] No Panel InformationOrdered By: Sara Quezada on 11-27-2024 Bld Gas Crit Called To/Read Back By Yes [facility] Blood Gas Notified Time 10:28:10 [facility] Blood Gas Notified Whom wilbert [facility] Blood Gas Sample Site R Radial [facility] Blood Gas Specimen Type ART [facility] Blood Gas Vent Mode Not entered [facility] Oxygen Delivery Device Room Air [facility] Oxygen saturation measuremen tOrdered By: Sara Quezada on 11-27-2024 Blood Gas Oxygen Saturation 95 % 95-99 [facility] Partial pressure of carbon d ioxide measurementOrdered By: Sara Quezada on 11-27-2024 Arterial Blood Partial Pressure CO2 25.7 mmHg Low 35-45 [facility] Partial pressure of oxygen m easurementOrdered By: Sara Quezada on 11-27-2024 Arterial Blood Partial Pressure O2 91 mmHG 75-100 [facility] Protein Test strip Ql (U)Ord ered By: Sara Quezada on 11-27-2024 Protein Ql (U) 30 mg/dl High Negative [facility] Random urine creatinine tran urement (mass/volume)Ordered By: Sara Quezada on 11-27-2024 Creatinine Unsp time (U) [Mass/Vol] 96.10 mg/dL 39-259 [facility] Sodium (U) [Moles/Vol]Ordere d By: Sara Quezada on 11-27-2024 Urine Random Sodium < 20 mmol/L Not Establ. [facility] Squamous epithelial cells de tection in urine sediment by light microscopyOrdered By: Sara Quezada on 11-27-2024 Epithelial cells.squamous LM Ql (Urine sed) 0-5 SEEN /hpf 0-5 [facility] Total carbon dioxide measure mentOrdered By: Sara Quezada on 11-27-2024 Blood Gas Total CO2 11 mmol/L [facility] CO2 [Moles/Vol] 11 mmol/L [facility] Urine blood detectionOrdered By: Sara Quezada on 11-27-2024 Urine Occult Blood 25 /ul High Negative [facility] Urine clarityOrdered By: Sangita Quezada on 11-27-2024 Clarity (U) Clear Clear [facility] Urine color determinationOrd ered By: Sara Quezada on 11-27-2024 Color (U) Straw Yellow [facility] Urine glucose detectionOrder ed By: Sara Quezada on 11-27-2024 Glucose Ql (U) Normal mg/dl Normal [facility] Urine leukocyte esterase det ection by dipstickOrdered By: Sara Quezada on 11-27-2024 Leukocyte esterase Test strip Ql (U) Negative Negative [facility] Urine pHOrdered By: Sara Quezada on 11-27-2024 pH (U) 6.0 [pH] 5.0 - 8.0 [facility] Urine sediment bacteria coun t by microscopy (number/high power field)Ordered By: Sara Quezada on 11-27-2024 Bacteria LM.HPF (Urine sed) [#/Area] RARE /hpf None Seen [facility] Urine sediment fine granular cast count by microscopy (number/low power field)Ordered By: Sara Quezada on 11-27-2024 Fine Granular Casts LM.LPF (Urine sed) [#/Area] 10-25 SEEN /lpf 0-5 [facility] Urine sodium measurement (mo les/volume)Ordered By: Sara Quezada on 11-27-2024 Sodium (U) [Moles/Vol] mmol/L Not Establ. [facility] Urine specific gravity measu rementOrdered By: Sara Quezada on 11-27-2024 Specific gravity (U) [Rel density] 1.015 1.002-1.03 0 [facility] Urine urobilinogen measureme ntOrdered By: Sara Quezada on 11-27-2024 Urobilinogen Ql (U) Normal mg/dl Normal [facility] Urobilinogen Ql (U)Ordered B y: Sara Quezada on 11-27-2024 Urine Urobilinogen Normal mg/dl Normal [facility] White blood cell countOrdere d By: Sara Quezada on 11-27-2024 Urine WBC 5-10 SEEN /hpf 0-5 [facility] White blood cell count 5-10 SEEN /hpf 0-5 [facility] pH (Unsp spec)Ordered By: Chio Quezada on 11-27-2024 Blood Gas pH 7.20 Low 7.35-7.45 [facility] Basic Metabolic Profile (BMP )on 11-26-2024 Anion gap [Moles/Vol] 17 mmol/L High 5-15 [facility] Comment on above: Performed By: #### L 100.0100 #### [facility] Laboratory [address] [place], [place], [id number] (282) BUN/CRE 19.1 RATIO Normal 10-20 [facility] Comment on above: Performed By: #### L 100.0100 #### [facility] [address] [place], [address] Calcium [Mass/Vol] 9.7 mg/dL Normal 7.6-11.0 [facility] Comment on above: Performed By: #### L 100.0100 #### [facility] [address] [place], [address] Chloride [Moles/Vol] 101 mmol/L Normal 96-108 [facility] Comment on above: Performed By: #### L 100.0100 #### [facility] [address] [place], [address] CO2 [Moles/Vol] 11.5 mmol/L Low 22.0-29.0 [facility] Comment on above: Performed By: #### L 100.0100 #### [facility] [address] [place], [address] Creatinine [Mass/Vol] 3.0 mg/dL High 0.8-1.3 [facility] Comment on above: Performed By: #### L 100.0100 #### [facility] [address] [place], [address] ECRCL 35.79 ml/min Normal [facility] Comment on above: Performed By: #### L 100.0100 #### [facility] [address] [place], [address] GFR/1.73 sq M.predicted among non-blacks MDRD (S/P/Bld) [Vol rate/Area] 24 mL/min/{1.73_m2} Low >60 [facility] Comment on above: Result Comment: mL/m in/1.73m2 CKD-EPI Creatinine Equation (2020) Performed By: #### L 100.0100 #### [facility] [address] [place], [address] Glucose [Mass/Vol] 127 mg/dL High 70-99 [facility] Comment on above: Performed By: #### L 100.0100 #### [facility] [address] [place], [address] Potassium [Moles/Vol] 3.7 mmol/L Normal 3.3-5.1 [facility] Comment on above: Performed By: #### L 100.0100 #### [facility] [address] [place], [address] Sodium [Moles/Vol] 129 mmol/L Low 133-145 [facility] Comment on above: Performed By: #### L 100.0100 #### [facility] [address] [place], [address] Urea nitrogen [Mass/Vol] 58 mg/dL High 4-19 [facility] Comment on above: Performed By: #### L 100.0100 #### [facility] [address] [place], [address] CBC W/Diff, Automatedon 11-01 Absolute Lymph 0.77 X10 3/uL Low 0.83-4.51 [facility] Comment on above: Performed By: #### L 100.0100 ####[facility] [address] [place], [address] Absolute Neut 10.6 X10 3/uL High 2.0-7.7 [facility] Comment on above: Performed By: #### L 100.0100 ####[facility] [address] [place], [address] Basophils/100 WBC (Bld) 0.2 % Normal 0-1 [facility] [facility] Comment on above: Performed By: #### L 100.0100 ####[facility] [address] [place], [address] Eosinophils/100 WBC (Bld) 0.6 % Normal 0-5 [facility] Comment on above: Performed By: #### L 100.0100 ####[facility] [id number] [place], [address] Erythrocyte distribution width (RBC) [Ratio] 14.6 % Normal 11.6-14.6 [facility] Comment on above: Performed By: #### L 100.0100 ####[facility] [address] [place], [address] Hematocrit (Bld) [Volume fraction] 41.8 % Normal 40-54 [facility] Comment on above: Performed By: #### L 100.0100 ####[facility] [address] [place], [address] Hemoglobin (Bld) [Mass/Vol] 13.7 g/dL Normal 13.0-16.5 [facility] Comment on above: Performed By: #### L 100.0100 ####[facility] [address] [place], [address] IG% 0.600 Normal 0.0-0.9 [facility] Comment on above: Result Comment: IG% - Immature Granulocytes (promyelocytes, myelocytes and metamyelocytes) > 1% indicates that a LEFT SHIFT is Present. Performed By: #### L 100.0100 ####[facility] [address] [place], [address] Lymphocytes/100 WBC (Bld) 6.1 % Low 19-41 [facility] Comment on above: Performed By: #### L 100.0100 ####[facility] [address] [place], [address] MCH (RBC) [Entitic mass] 30.9 pg Normal 27.0-32.0 [facility] Comment on above: Performed By: #### L 100.0100 ####[facility] [address] [place], [address] MCHC (RBC) [Mass/Vol] 32.8 g/dL Normal 32-36 [facility] Comment on above: Performed By: #### L 100.0100 ####[facility] [address] [place], [address] MCV (RBC) [Entitic vol] 94.4 fL High 80-94 [facility] Comment on above: Performed By: #### L 100.0100 ####[facility] [address] [place], [address] Monocytes/100 WBC (Bld) 8.7 % Normal 0-10 [facility] Comment on above: Performed By: #### L 100.0100 ####[facility] [address] [place], [address] Neutrophils/100 WBC (Bld) 83.8 % High 47-70 [facility] Comment on above: Performed By: #### L 100.0100 ####[facility] [address] [place], [address] Nucleated RBC (Bld) [#/Vol] 0 10*3/uL Normal 0-5 [facility] Comment on above: Performed By: #### L 100.0100 ####[facility] [address] [place], [address] Platelet mean volume (Bld) [Entitic vol] 8.6 fL Normal 6.2-12.0 [facility] Comment on above: Performed By: #### L 100.0100 ####[facility] [address] [place], [address] Platelets (Bld) [#/Vol] 410 10*3/uL Normal 150-450 [facility] Comment on above: Performed By: #### L 100.0100 ####[facility] [address] [place], [address] RBC (Bld) [#/Vol] 4.43 10*6/uL Low 4.6-6.2 [facility] Comment on above: Performed By: #### L 100.0100 ####[facility] [address] [place], [address] RDW SD 51.1 fl High 35.1-43.9 [facility] Comment on above: Performed By: #### L 100.0100 ####[facility] [address] [place], [address] WBC (Bld) [#/Vol] 12.7 10*3/uL High 4.4-11.0 [facility] Comment on above: Performed By: #### L 100.0100 ####[facility] [address] [place], [address] Emergency Department Summary on 11-26-2024 Emergency Department Summary [facility] Medical Records Department [address] [facility] [address] [place] [address] Emergency Department Summary 11/26/24 MR#: [id number] Acct: [id number] Name: RAGHAVENDRA BURROWS Rep #: [id number] : 1970 54 From: Jose Harman MD [...] done in [address] Jama at [facility]. Patient presents because of nausea, vomiting diarrhea that started yesterday. Several episodes of vomiting diarrhea yesterday. He denies hematemesis or coffee-ground emesis. He denies black or maroon watery diarrhea. Patient endorses decreased urine output. He denies fever or chills. He denies upper respiratory tract symptoms. Prior similar symptoms: No Recent Illness/Hospitalization: No PFSH PFS Medical History Cancer of appendix [...] Allergies Allergy Verified 11/26/24 14:44 Surgical History (Reviewed 11/26/24 @ 15: by Dr. Jose Harman MD) S/P splenectomy H/O colectomy Social History (Reviewed 11/26/24 @ 15: by Dr. Jose Harman MD) household members: spouse housing: house Smoking Status: [...] Not tachyc (more content not included)... Normal [facility] H AND P Exam - [facility] 11-26-2024 H&P Exam - Hospitalist [facility] Medical Records Department [address] [place] [address] H P Exam - Hospitalist 11/26/24 1849 MR#: [id number] Acct: [id number] Name: RAGHAVENDRA BURROWS Rep #: [id number] : 1970 54 From: Ibrahima Doan DO PCP: Dr. Harjeet Bernard MD Status:ADM SANNA Location: [address] - General General Date of Service: 11/26/24 Chief Complaint: Nausea vomiting HPI Narrative RAGHAVENDRA BURROWS, is a 54 M who presents [...] the hospitalist service was contacted for admission. [facility] Medical History Cancer of appendix [...] hr 0 (more content not included)... Normal [facility] 09-21-2024 [facility] Telephone (MELANIE) FIRST,RAGHAVENDRA Zepeda ([id number]) 1970 M Date Time Provider Department 09/21/24 NICOLASA DENISE During your visit today, we recorded the following information about you: Callie Hall 09/21/2024 10:07 AM Signed [phone] Triny Patient calling stating he passed the clamp that was put in his ABD in his stoma bag. Wants to make sure this is ok. Patient not in any pain or any issues, did not know it happened until he emptied his bag. Isela Parekh RN 09/21/2024 3:48 PM Signed Called [...] Encounter Status:Closed by CALLIE HALL on 09/21/24 [facility] CNNURSEon 06-15-2024 CNNURSE Nurse Visit (CORSMN) RAGHAVENDRA BURROWS ([id number]) 1970 M Date Time Provider Department 06/15/24 10:15 AM STOMA THERAPY MELANIE During your visit today, we recorded the following information about you: Shereen Baumann RN 06/15/2024 3:37 PM Signed ET/WOCN Nursing [...] NATALY-FIT Natura Durahesive Flat Cut-to-Fit Skin Barrier (#[id number]), drainable pouch Wearing time: 3-4 days Pouching system evaluation: circumferentially undermined, wider from 3-9 o'clock and nearly leaking at 6 o'clock Recommendations: Skin Care: Apply ConvaTec Stomahesive powder to any areas of skin breakdown PRN until healed. Dust off excess. Pouching system Applied: Neo New Image Convex 2 1/4 Ceraplus Flange with Tape Border #[id number], ceraplus ring, drainable pouch Expected wearing time: 3-4 days Time Increment: 1 hour Shereen Baumann RN, BSN, CWOCN For non-emergent WOC Nursing patient care needs - Please place a consult via Epic under ostomy. WOC Nurse Available Hours: M-F: [phone]; Weekends AND Holidays: [phone] For emergent [facility] Nursing patient care needs - Page #[phone], during available hours only. Allergies As of Date: 06/15/2024 (No Known Allergies) Date Reviewed: 06/15/2024 Reviewed by: Ana Lane, RN - Fully Assessed Primary Visit Diagnosis:Attention to [...] swelling, mass and l*01/23/2023 Encounter Status:Closed by SHEREEN BAUMANN on 06/15/24 [facility] CNOVon 06-15-2024 CNOV Office Visit (CORAKBARN ) RAGHAVENDRA BURROWS ([id number]) 1970 M Date Time Provider Department 06/15/24 10:20 AM NICOLASA DENISE During your visit today, we recorded the following information about you: Weight Height 100.7 kg 1.854 m Nicolasa Denise DO 07/07/2024 1:14 PM Signed [facility] Follow-up June 09, 2024 Chief complaint: annual follow up HPI: Triny Burrows is a 54 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 [...] RN - Fully Assessed Reason for Visit: Follow [...] List As Of Date 06/15/2024 Noted Resolved AMRBOSE on CPAP [G47.33] 02/18/2006 Abnormal weight gain [...] [I81] 06/05/2022 (more content not included)... 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 [employer]: [facility] Transcribe Date/Time: May 15 2024 12:14P Dictated by : GUERO ELIZABETH MD This examination was interpreted and the report reviewed and electronically signed by: GUERO ELIZABETH MD on May 15 2024 12:23PM EST [facility] CT Chest W contrast Risa IMPRESSION: No convincing CT evidence of thoracic metastasis. 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 DIVISION OF RADIOLOGY Provider, [facility] - 05/15/2024 * * *Final Report* * * DATE OF EXAM: May 15 2024 10:42AM [facility] 0539 - CT CHEST W IVCON / [...] No convincing CT evidence of thoracic metastasis. [employer]er: [facility] Transcribe Date/Time: May 15 2024 1:28P Dictated by : LEXIE LEONARD MD This examination was interpreted and the report reviewed and electronically signed by: LEXIE LEONARD MD on May 15 2024 1:42PM EST [facility] CT Chest W contrast IVOrdere d By: Ccf Provider on 05-15-2024 [facility] No Panel Informationon 05-15 Radiology Study observation (narrative) [facility] No Panel Informationon 05-17 [facility] XR ABSCESS DRAIN INJECTIONon 09-14-2022 [facility] Absolute lymphocyte counton 07-25-2022 Lymphocytes Auto (Unsp spec) [#/Vol] 1.61 10*3/uL 0.83-4.51 [facility] Automated blood hematocrit ( percentage)on 07-25-2022 Hematocrit (Bld) [Volume fraction] 31.0 % 40-54 [facility] Basophil percentageon 2021 Basophils/100 WBC (Bld) 0.6 % 0-1 [facility] Bilirubin [Mass/Vol] 0.20 mg/dL 0.20-1.00 [facility] Comment on above: For patients on eltr ombopag therapy, use of Dimension [place] TBIL is not recommended. Eosinophils/100 WBC (Bld) 4.6 % 0-5 [facility] Neutrophils (Bld) [#/Vol] 4.8 10*3/uL 2.0-7.7 [facility] Neutrophils/100 WBC (Bld) 59.7 % 47-70 [facility] Protein [Mass/Vol] 8.1 g/dL 6.4-8.2 [facility] WBC (Bld) [#/Vol] 8.1 10*3/uL 4.4-11.0 [facility] Blood erythrocytes count (nu mber/volume)on 07-25-2022 RBC (Bld) [#/Vol] 3.51 10*6/uL 4.6-6.2 [facility] Blood hemoglobin measurement (mass/volume)on 07-25-2022 Hemoglobin (Bld) [Mass/Vol] 9.5 g/dL 13.0-16.5 [facility] Blood lymphocytes/100 leukoc yteson 07-25-2022 Lymphocytes/100 WBC (Bld) 19.8 % 19-41 [facility] Blood monocytes/100 leukocyt eson 07-25-2022 Monocytes/100 WBC (Bld) 15.1 % 0-10 [facility] Blood platelet mean volumeon 07-25-2022 Platelet mean volume (Bld) [Entitic vol] 8.7 fL 6.2-12.0 [facility] CBC W Auto Differential pane l (Bld)on 07-25-2022 Abs Neut (ANC) 4.8 K/uL 2 - 7 K/uL [facility] CK [Catalytic activity/Vol]o n 07-25-2022 CK 174 39 - 308 [facility] Comprehensive metabolic 2000 panelon 07-25-2022 AST [Catalytic activity/Vol] 22 U/L 15 - 37 [facility] Determination of erythrocyte mean corpuscular volume (MCV)on 07-25-2022 MCV (RBC) [Entitic vol] 88.3 fL 80-94 [facility] Direct bilirubinon 2 Bilirubin.direct [Mass/Vol] 0.18 mg/dL 0.00-0.30 [facility] Laboratory - Chemistry and C hemistry - challengeon 07-25-2022 ALP [Catalytic activity/Vol] 145 U/L 45-117 [facility] ALT [Catalytic activity/Vol] 31 U/L 16-61 [facility] CK [Catalytic activity/Vol] 174 U/L 39-308 [facility] Globulin (S) [Mass/Vol] 5.5 g/dL 2.2-4.2 [facility] Laboratory - Hematology and Cell countson 07-25-2022 Erythrocyte distribution width (RBC) [Entitic vol] 54.6 fL 35.1-43.9 [facility] Erythrocyte distribution width (RBC) [Ratio] 17.0 % 11.6-14.6 [facility] Immature granulocytes/100 WBC (Bld) 0.200 % 0.0-0.9 [facility] Comment on above: IG% - Immature Granu locytes (promyelocytes, myelocytes and metamyelocytes) > 1% indicates that a LEFT SHIFT is Present. MCH (RBC) [Entitic mass] 27.1 pg 27.0-32.0 [facility] Nucleated RBC/100 WBC (Bld) [Ratio] 0 % 0-5 [facility] MCHC Auto (RBC) [Mass/Vol]on 07-25-2022 MCHC (RBC) [Mass/Vol] 30.6 g/dL 32-36 [facility] No Panel Informationon 07-25 Estimated GFR (MDRD) Amer 156 mL/min >60 [facility] Comment on above: GFR Calc Estimated GFR (MDRD) Non-Af Amer 129 mL/min >60 [facility] Comment on above: Non- GFR Calc Platelets bldon 07-25-2022 Platelets (Bld) [#/Vol] 721 10*3/uL 150-450 [facility] Serum or plasma albumin tran urement (mass/volume)on 07-25-2022 Albumin [Mass/Vol] 2.6 g/dL 3.2-5.0 [facility] Serum or plasma creatinine m easurement (mass/volume)on 07-25-2022 Creatinine [Mass/Vol] 0.69 mg/dL 0.70-1.30 [facility] Comment on above: The validity of the calculated GFR & GFRAA in patients over 70 years has not been determined. Clinical correlation is essential. Thin prep Papanicolaou smear with manual screeningon 07-25-2022 Thin prep Papanicolaou smear with manual screening 22 U/L 15-37 [facility] ERCPon 07-19-2022 [facility] Absolute lymphocyte counton 07-16-2022 Lymphocytes Auto (Unsp spec) [#/Vol] 1.45 10*3/uL 0.83-4.51 [facility] Work Phone: Automated blood hematocrit ( percentage)on 07-16-2022 Hematocrit (Bld) [Volume fraction] 31.7 % 40-54 [facility] BILIRUBIN TOTAL BLDon 2021 Bilirubin [Mass/Vol] 0.3 mg/dL 0.2 - 1 [facility] Basophil percentageon 2021 Basophils/100 WBC (Bld) 0.7 % 0-1 [facility] Work Phone: [phone] Bilirubin [Mass/Vol] 0.30 mg/dL 0.20-1.00 [facility] Work Phone: [phone] Comment on above: For patients on eltr ombopag therapy, use of Dimension [place] TBIL is not recommended. Eosinophils/100 WBC (Bld) 2.5 % 0-5 [facility] Neutrophils (Bld) [#/Vol] 5.3 10*3/uL 2.0-7.7 [facility] Work Phone: [phone] Neutrophils/100 WBC (Bld) 63.6 % 47-70 [facility] Protein [Mass/Vol] 8.2 g/dL 6.4-8.2 [facility] Work Phone: WBC (Bld) [#/Vol] 8.4 10*3/uL 4.4-11.0 [facility] Blood erythrocytes count (nu mber/volume)on 07-16-2022 RBC (Bld) [#/Vol] 3.57 10*6/uL 4.6-6.2 [facility] Work Phone: [phone] Blood hemoglobin measurement (mass/volume)on 07-16-2022 Hemoglobin (Bld) [Mass/Vol] 9.4 g/dL 13.0-16.5 [facility] Blood lymphocytes/100 leukoc yteson 07-16-2022 Lymphocytes/100 WBC (Bld) 17.3 % 19-41 [facility] Work Phone: Blood monocytes/100 leukocyt eson 07-16-2022 Monocytes/100 WBC (Bld) 15.5 % 0-10 [facility] Work Phone: Blood platelet adequacy dete ction by light microscopyon 07-16-2022 Platelets LM Ql (Bld) MKD INC ADEQ [facility] Work Phone: Blood platelet mean volumeon 07-16-2022 Platelet mean volume (Bld) [Entitic vol] 8.7 fL 6.2-12.0 [facility] Work Phone: CBC W Auto Differential pane l (Bld)on 07-16-2022 Abs Neut (ANC) 5.3 K/uL 2 - 7.7 K/uL [facility] CK [Catalytic activity/Vol]o n 07-16-2022 CK 61 39 - 308 [facility] Comprehensive metabolic 2000 panelon 07-16-2022 AST [Catalytic activity/Vol] 61 U/L Abnormal 15 - 37 [facility] Determination of erythrocyte mean corpuscular volume (MCV)on 07-16-2022 MCV (RBC) [Entitic vol] 88.8 fL 80-94 [facility] Work Phone: Direct bilirubinon 2 Bilirubin.direct [Mass/Vol] 0.24 mg/dL 0.00-0.30 [facility] Work Phone: Laboratory - Chemistry and C hemistry - challengeon 07-16-2022 ALP [Catalytic activity/Vol] 156 U/L 45-117 [facility] ALT [Catalytic activity/Vol] 33 U/L 16-61 [facility] CK [Catalytic activity/Vol] 61 U/L 39-308 [facility] Work Phone: Globulin (S) [Mass/Vol] 5.8 g/dL 2.2-4.2 [facility] Work Phone: Laboratory - Hematology and Cell countson 07-16-2022 Erythrocyte distribution width (RBC) [Entitic vol] 54.6 fL 35.1-43.9 [facility] Work Phone: Erythrocyte distribution width (RBC) [Ratio] 17.0 % 11.6-14.6 [facility] Work Phone: Immature granulocytes/100 WBC (Bld) 0.400 % 0.0-0.9 [facility] Work Phone: Comment on above: IG% - Immature Granu locytes (promyelocytes, myelocytes and metamyelocytes) > 1% indicates that a LEFT SHIFT is Present. MCH (RBC) [Entitic mass] 26.3 pg 27.0-32.0 [facility] Work Phone: Nucleated RBC/100 WBC (Bld) [Ratio] 0 % 0-5 [facility] Work Phone: MCHC Auto (RBC) [Mass/Vol]on 07-16-2022 MCHC (RBC) [Mass/Vol] 29.7 g/dL 32-36 [facility] Work Phone: No Panel Informationon 07-16 Estimated GFR (MDRD) Amer 129 mL/min >60 [facility] Work Phone: Comment on above: GFR Calc Estimated GFR (MDRD) Non-Af Amer 107 mL/min >60 [facility] Work Phone: Comment on above: Non- GFR Calc Platelets bldon 07-16-2022 Platelets (Bld) [#/Vol] 825 10*3/uL 150-450 [facility] Comment on above: RESULTS CALLED TO RN 07/16/22 1325 David Raza.REPORT READ BACK BY SAME.Previous reported result: 825 [id number] by: LEON on 07/16/22:1325 AMENDED REPORT 07/16/22 1325 PLT previously reported as: 825 *H K/mm3 RBC morphologyon 07-16-2022 RBC morphology finding Nom (Bld) NORM C+C NORMAL NORM C&C [facility] Work Phone: Review by pathologiston 06-30 Pathologist review Marco (Unsp spec) [Interp] Reviewed [facility] Work Phone: Comment on above: Previous reported re sult: Lashae barton Edited by: YAHAIRA on 07/17/22:1354Normocytic anemia.Thrombocytosis.Clinical correlation necessary.Ron Mckeon M.D. 07/17/22 AMENDED REPORT 07/17/22 5184 PATH REV previously reported as: Lashae barton Serum or plasma albumin tran urement (mass/volume)on 07-16-2022 Albumin [Mass/Vol] 2.4 g/dL 3.2-5.0 [facility] Work Phone: Serum or plasma creatinine m easurement (mass/volume)on 07-16-2022 Creatinine [Mass/Vol] 0.81 mg/dL 0.70-1.30 [facility] Comment on above: The validity of the calculated GFR & GFRAA in patients over 70 years has not been determined. Clinical correlation is essential. Thin prep Papanicolaou smear with manual screeningon 07-16-2022 Thin prep Papanicolaou smear with manual screening 15 U/L 15-37 [facility] Work Phone: No Panel Informationon 07-10 [facility] CBC W Auto Differential pane l (Bld)on 07-02-2022 Basophils (Bld) [#/Vol] 10*3/uL Normal <0.11 [facility] Comment on above: Order Comment: Speci men Type: BLOOD SPECIMEN Ordering Facility: [facility] Address: [address] [place] [place] [address] Performed By: #### 5 7021-8 #### [facility] CLIA [id number] [address] [place] [address] [place] Basophils/100 WBC (Bld) 0.3 % Normal [facility] Comment on above: Order Comment: Speci men Type: BLOOD SPECIMEN Ordering Facility: [facility] Address: [address] [place] [address] Performed By: #### 5 7021-8 #### [facility] CLIA [id number] [address] [place] [address] [place] Differential cell count method Nom (Bld) Auto Normal [facility] Comment on above: Order Comment: Speci men Type: BLOOD SPECIMEN Ordering Facility: [facility] Address: [address] [place] [address] Performed By: #### 5 7021-8 #### [facility] CLIA [id number] [address] [place] [address] [place] Eosinophils (Bld) [#/Vol] 0.07 10*3/uL Normal <0.46 [facility] Comment on above: Order Comment: Speci men Type: BLOOD SPECIMEN Ordering Facility: [facility] Address: [address] [place] [address] Performed By: #### 5 7021-8 #### [facility] CLIA [id number] [address] [place] [address] [place] Eosinophils/100 WBC (Bld) 1.1 % Normal [facility] Comment on above: Order Comment: Speci men Type: BLOOD SPECIMEN Ordering Facility: [facility] Address: [address] [place] [address] Performed By: #### 5 7021-8 #### [facility] CLIA [id number] [address] [place] Erythrocyte distribution width (RBC) [Ratio] 17.6 % High 11.5-15.0 [facility] Comment on above: Order Comment: Speci men Type: BLOOD SPECIMEN Ordering Facility: [facility] Address: [address] [place] [address] Performed By: #### 5 7021-8 #### [facility] CLIA [id number] [address] [place] Hematocrit (Bld) [Volume fraction] 28.2 % Low 39.0-51.0 [facility] Comment on above: Order Comment: Speci men Type: BLOOD SPECIMEN Ordering Facility: [facility] Address: [address] [place] [address] Performed By: #### 5 7021-8 #### [facility] CLIA [id number] [address] [place] Hemoglobin (Bld) [Mass/Vol] 8.2 g/dL Low 13.0-17.0 [facility] Comment on above: Order Comment: Speci men Type: BLOOD SPECIMEN Ordering Facility: [facility] Address: [address] [place] [address] Performed By: #### 5 7021-8 #### [facility] CLIA [id number] [address] [place] IMMATURE GRAN % 0.3 % Normal [facility] Comment on above: Order Comment: Speci men Type: BLOOD SPECIMEN Ordering Facility: [facility] Address: [address] [place] [address] Performed By: #### 5 7021-8 #### [facility] CLIA [id number] [address] IMMATURE GRAN ABS <0.03 Normal <0.10 [facility] Comment on above: Order Comment: Speci men Type: BLOOD SPECIMEN Ordering Facility: [facility] Address: [address] [place] [address] Performed By: #### 5 7021-8 #### [facility] CLIA [id number] [address] Lymphocytes (Bld) [#/Vol] 1.21 10*3/uL Normal 1.00-4.00 [facility] Comment on above: Order Comment: Speci men Type: BLOOD SPECIMEN Ordering Facility: [facility] Address: [address] [place] [address] Performed By: #### 5 7021-8 #### [facility] CLIA [id number] [address] Lymphocytes/100 WBC (Bld) 18.2 % Normal [facility] Comment on above: Order Comment: Speci men Type: BLOOD SPECIMEN Ordering Facility: [facility] Address: [address] [place] [address] Performed By: #### 5 7021-8 #### [facility] CLIA [id number] [address] MCH (RBC) [Entitic mass] 27.1 pg Normal 26.0-34.0 [facility] Comment on above: Order Comment: Speci men Type: BLOOD SPECIMEN Ordering Facility: [facility] Address: [address] [place] [address] Performed By: #### 5 7021-8 #### [facility] CLIA [id number] [address] MCHC (RBC) [Mass/Vol] 29.1 g/dL Low 30.5-36.0 [facility] Comment on above: Order Comment: Speci men Type: BLOOD SPECIMEN Ordering Facility: [facility] Address: [address] [place] [address] Performed By: #### 5 7021-8 #### [facility] CLIA [id number] [address] [place] [address] [place] MCV (RBC) [Entitic vol] 93.1 fL Normal 80.0-100.0 [facility] Comment on above: Order Comment: Speci men Type: BLOOD SPECIMEN Ordering Facility: [facility] Address: [address] [place] [address] Performed By: #### 5 7021-8 #### [facility] CLIA [id number] [address] [place] [address] [place] Monocytes (Bld) [#/Vol] 1.48 10*3/uL High <0.87 [facility] Comment on above: Order Comment: Speci men Type: BLOOD SPECIMEN Ordering Facility: [facility] Address: [address] [place] [address] Performed By: #### 5 7021-8 #### [facility] CLIA [id number] [address] [place] Monocytes/100 WBC (Bld) 22.2 % Normal [facility] Comment on above: Order Comment: Speci men Type: BLOOD SPECIMEN Ordering Facility: [facility] Address: [address] [place] [address] Performed By: #### 5 7021-8 #### [facility] CLIA [id number] [address] [place] [address] [place] Neutrophils (Bld) [#/Vol] 3.86 10*3/uL Normal 1.45-7.50 [facility] Comment on above: Order Comment: Speci men Type: BLOOD SPECIMEN Ordering Facility: [facility] Address: [address] [place] [address] Performed By: #### 5 7021-8 #### [facility] CLIA [id number] [address] [place] Neutrophils/100 WBC (Bld) 57.9 % Normal [facility] Comment on above: Order Comment: Speci men Type: BLOOD SPECIMEN Ordering Facility: [facility] Address: [address] [place] [address] Performed By: #### 5 7021-8 #### [facility] CLIA [id number] [address] [place] [address] [facility] [place] Nucleated RBC (Bld) [#/Vol] 10*3/uL Normal <0.01 [facility] Comment on above: Order Comment: Speci men Type: BLOOD SPECIMEN Ordering Facility: [facility] Address: [address] [place] [address] Performed By: #### 5 7021-8 #### [facility] CLIA [id number] [address] [place] [address] [place] Nucleated RBC/100 WBC (Bld) [Ratio] 0.0 /100 WBC Normal [facility] Comment on above: Order Comment: Speci men Type: BLOOD SPECIMEN Ordering Facility: [facility] Address: [address] [place] [address] Performed By: #### 5 7021-8 #### [facility] CLIA [id number] [address] [place] [address] [place] Platelet mean volume (Bld) [Entitic vol] 8.7 fL Low 9.0-12.7 [facility] Comment on above: Order Comment: Speci men Type: BLOOD SPECIMEN Ordering Facility: [facility] Address: [address] [place] [address] Performed By: #### 5 7021-8 #### [facility] CLIA [id number] [address] [place] [address] [place] Platelets (Bld) [#/Vol] 1020 10*3/uL High 150-400 [facility] Comment on above: Order Comment: Speci men Type: BLOOD SPECIMEN Ordering Facility: [facility] Address: [address] [place] [address] Result Comment: No c lot detected Performed By: #### 5 7021-8 #### [facility] CLIA [id number] [address] [place] [address] [place] RBC (Bld) [#/Vol] 3.03 10*6/uL Low 4.20-6.00 [facility] Comment on above: Order Comment: Speci men Type: BLOOD SPECIMEN Ordering Facility: [facility] Address: [address] [place] [address] Performed By: #### 5 7021-8 #### [facility] CLIA [id number] [address] [place] [address] [place] WBC (Bld) [#/Vol] 6.66 10*3/uL Normal 3.70-11.00 [facility] Comment on above: Order Comment: Speci men Type: BLOOD SPECIMEN Ordering Facility: [facility] Address: [address] [place] [address] Performed By: #### 5 7021-8 #### [facility] CLIA [id number] [address] [place] [address] [place] CK SerPl-cCncon 07-02-2022 CK [Catalytic activity/Vol] 24 U/L Low 51-298 [facility] Comment on above: Order Comment: Speci men Type: BLOOD SPECIMEN Ordering Facility: [facility] Address: [address] [place] [address] Performed By: #### 2 157-6, 31185-7, CRET1 #### [facility] CLIA [id number] [address] [place] [address] [place] CREATININE BLDon 07-02-2022 Creatinine [Mass/Vol] 0.58 mg/dL Low 0.73-1.22 [facility] Comment on above: Order Comment: Speci men Type: BLOOD SPECIMEN Ordering Facility: [facility] Address: [address] [place] [address] Performed By: #### 2 157-6, 52303-9, CRET1 #### [facility] CLIA [id number] [address] [place] ESTIMATED GLOMERULAR FILTRATION RATE 119 mL/min/1.73m??? Normal >=60 [facility] Comment on above: Order Comment: Speci men Type: BLOOD SPECIMEN Ordering Facility: [facility] Address: [address] [place] [address] Result Comment: Marlen mated Glomerular Filtration Rate [...] actual GFR. Performed By: #### 2 157-6, 14154-8, CRET1 #### [facility] CLIA [id number] [address] [place] [address] [place] Hepatic function 2000 panelo n 07-02-2022 Albumin [Mass/Vol] 3.0 g/dL Low 3.9-4.9 [facility] Comment on above: Order Comment: Speci men Type: BLOOD SPECIMEN Ordering Facility: [facility] Address: [address] [place] [address] Performed By: #### 2 157-6, 09487-7, CRET1 #### [facility] CLIA [id number] [address] [place] [address] [place] ALP [Catalytic activity/Vol] 211 U/L High 38-113 [facility] Comment on above: Order Comment: Speci men Type: BLOOD SPECIMEN Ordering Facility: [facility] Address: [address] [place] [address] Performed By: #### 2 157-6, 12205-2, CRET1 #### [facility] CLIA [id number] [address] [place] ALT [Catalytic activity/Vol] 12 U/L Normal 10-54 [facility] Comment on above: Order Comment: Speci men Type: BLOOD SPECIMEN Ordering Facility: [facility] Address: [address] [place] [address] Performed By: #### 2 157-6, 85501-9, CRET1 #### [facility] CLIA [id number] [address] AST [Catalytic activity/Vol] 15 U/L Normal 14-40 [facility] Comment on above: Order Comment: Speci men Type: BLOOD SPECIMEN Ordering Facility: [facility] Address: [address] [place] [address] Performed By: #### 2 157-6, 54535-1, CRET1 #### [facility] CLIA [id number] [address] [place] Bilirubin [Mass/Vol] 0.4 mg/dL Normal 0.2-1.3 [facility] Comment on above: Order Comment: Speci men Type: BLOOD SPECIMEN Ordering Facility: [facility] Address: [facility] [place] [address] Performed By: #### 2 157-6, 86244-4, CRET1 #### [facility] CLIA [id number] [address] Bilirubin.conjugated [Mass/Vol] mg/dL Normal <0.2 [facility] Comment on above: Order Comment: Speci men Type: BLOOD SPECIMEN Ordering Facility: [facility] Address: [facility] [place] [address] Performed By: #### 2 157-6, 24834-3, CRET1 #### [facility] CLIA [id number] [address] Protein [Mass/Vol] 7.8 g/dL Normal 6.3-8.0 [facility] Comment on above: Order Comment: Speci men Type: BLOOD SPECIMEN Ordering Facility: [facility] Address: [facility] [place] [address] Performed By: #### 2 157-6, 69386-8, CRET1 #### [facility] CLIA [id number] [address] CBC W Auto Differential pane l (Bld)on 05-11-2022 Abs Immature Gran <0.10 k/uL [facility] Basophils (Bld) [#/Vol] <0.11 k/uL [facility] Basophils/100 WBC (Bld) 0.4 % [facility] Differential cell count method Nom (Bld) Auto [facility] Eosinophils (Bld) [#/Vol] 0.08 10*3/uL <0.46 k/uL [facility] Eosinophils/100 WBC (Bld) 1.4 % [facility] Erythrocyte distribution width (RBC) [Ratio] 16.3 % High 11.5 - 15.0 % [facility] Hematocrit (Bld) [Volume fraction] 33.8 % Low 39.0 - 51.0 % [facility] Hemoglobin (Bld) [Mass/Vol] 9.7 g/dL Low 13.0 - 17.0 g/dL [facility] Immature Gran % 0.4 % [facility] Lymphocytes (Bld) [#/Vol] 0.92 10*3/uL Low 1.00 - 4.00 k/uL [facility] Lymphocytes/100 WBC (Bld) 16.5 % [facility] MCH (RBC) [Entitic mass] 21.7 pg Low 26.0 - 34.0 pg [facility] MCHC (RBC) [Mass/Vol] 28.7 g/dL Low 30.5 - 36.0 g/dL [facility] MCV (RBC) [Entitic vol] 75.4 fL Low 80.0 - 100.0 fL [facility] Monocytes (Bld) [#/Vol] 0.66 10*3/uL <0.87 k/uL [facility] Monocytes/100 WBC (Bld) 11.8 % [facility] Neutrophils (Bld) [#/Vol] 3.88 10*3/uL 1.45 - 7.50 k/uL [facility] Neutrophils/100 WBC (Bld) 69.5 % [facility] Nucleated RBC (Bld) [#/Vol] <0.01 k/uL [facility] Nucleated RBC/100 WBC (Bld) [Ratio] 0.0 /100 WBC [facility] Platelet mean volume (Bld) [Entitic vol] 8.5 fL Low 9.0 - 12.7 fL [facility] Platelets (Bld) [#/Vol] 384 10*3/uL 150 - 400 k/uL [facility] RBC (Bld) [#/Vol] 4.48 10*6/uL 4.20 - 6.00 m/uL [facility] WBC (Bld) [#/Vol] 5.58 10*3/uL 3.70 - 11.00 k/uL [facility] CNPNon 04-30-2022 CNPN Telephone (MEPFRENCH) RAGHAVENDRA BURROWS ([id number]) 1970 M Date Time Provider Department 04/30/22 [...] RN - Fully Assessed Reason for Visit: Application 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 - Other [3602] Prescriptions as of 04/30/2022 [...] Encounter Status:Closed by PRISCILA CLARKE on 04/30/22 [facility] COLONOSCOPY DIAGNOSTICon [facility] EGD DIAGNOSTICon 04-26-2022 [facility] CT BIOPSY ABD/RETROPERIT MAS Son 2022 CT BIOPSY ABD/RETROPERIT MASS * * *Final Report* * * DATE OF EXAM: 2022 12:07PM [facility] 2019 - CT BIOPSY ABD/RETROPERIT MASS / PROCEDURE REASON: New Patient * * * * Physician Interpretation * * * * PROCEDURE PERFORMED: CT GUIDED PERITONEAL BIOPSY ON 2022 INDICATION FOR PROCEDURE: 52 years old Male with Anemia, unspecified type. Upper abdominal mass Intra-abdominal and pelvic swelling, mass and lump, unspecified site STAFF RADIOLOGIST: Dr. Sourav Kohler CONSENT: The risks, benefits, treatment options, [...] using light manual compression. Next, a 5 Iraqi Yueh catheter was advanced into the low [...] for surgical pathology. BIOPSY DEVICE: 18 gauge CorVoZachary Prellt core biopsy needle. IMPRESSION: CT guided peritoneal biopsy as described. No fluid could be aspirated under CT. Ultrasound was then used to evaluate for fluid which demonstrated diffuse soft tissue/peritoneal carcinomatosis throughout all 4 quadrants. No drainable fluid visualized. 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 HISTORY PHYSICALon HISTORY PHYSICAL HNO ID: [id number] Author: Sourav Kohler DO, DO Service: Radiology Author Type: [...] biopsy and paracentesis. SEDATION GOAL: Moderate SIGNATURE: Sourav Kohler DO PATIENT NAME: Raghavendra Zepeda First DATE: 2022 TIME: 10:47 AM Normal [facility] SURGICAL PATHOLOGYon CASE REPORT Normal [facility] Comment on above: Order Comment: Speci men Type: TISSUE SPECIMEN Ordering Facility: [facility] Address: [address] [place] [id number] Result Comment: [facility] Pathology Report Case: [id number] Authorizing Provider: Sourav Kohler DO, Collected: 2022 11:15 AM Ordering Location: [facility] Radiology Received: 2022 12:02 PM Pathologist: Zara Nesbitt MD Specimen: PERITONEUM BIOPSY Performed By: #### S #### [facility] CLIA [id number] [address] [facility] CLIA [id number] [address] CLINICAL HISTORY Peritoneal carcinomatosis Normal [facility] Comment on above: Order Comment: Speci men Type: TISSUE SPECIMEN Ordering Facility: [facility] Address: [address] [place] [address] Performed By: #### S #### [facility] CLIA [id number] [address] [place] [address] LABORATORY CLIA [id number] [address] DIAGNOSIS COMMENT Normal [facility] Comment on above: Order Comment: Speci men Type: TISSUE SPECIMEN Ordering Facility: [facility] Address: [address] [place] [address] Result Comment: The biopsy consists predominantly of [...] been determined by the performing laboratory within [facility]???s [facility] [place] ([facility], [facility], [facility] or [facility]) in a manner consistent with CLIA requirements. One or more of these tests have not been cleared or approved by the FDA. [facility] is regulated under CLIA as qualified to perform high-complexity testing. These tests are used for clinical purposes. They should not be regarded as investigational or for research. Positive and negative controls stain appropriately. Performed By: #### S #### [facility] CLIA [id number] [address] [place], [place] [address] CLIA [id number] [address] FINAL DIAGNOSIS [facility] Comment on above: Order Comment: Speci men Type: TISSUE SPECIMEN Ordering Facility: [facility] Address: [address] [place] [address] Result Comment: Radha toneum, biopsy: - Focal acellular mucin; see comment. Performed By: #### S #### [facility] CLIA [id number] [address] [place] [address] [facility] CLIA [id number] [address] FINAL PERFORMING LAB [facility] Comment on above: Order Comment: Speci men Type: TISSUE SPECIMEN Ordering Facility: [facility] Address: [address] [place] [address] Result Comment: Diag nostic interpretation performed at [facility], [address] [place] [address] CLIA# [id number] Brick Layer: Dung Graff M.D. Performed By: #### S #### [facility] CLIA [id number] [address] [place] [address] [facility] CLIA [id number] [address] GROSS DESCRIPTION [facility] Comment on above: Order Comment: Speci men Type: TISSUE SPECIMEN Ordering Facility: [facility] Address: [address] [place] [address] Result Comment: A. P ERITONEUM BIOPSY. Received in formalin are multiple sarmiento-red, soft feathery segments of tissue aggregating to 1.0 x 0.1 x 0.1 cm. Totally submitted in one cassette. JTS 2022 4:02 PM Gross examination performed at [facility], [address] [place] [address] Performed By: #### S #### [facility] CLIA [id number] [address] [place] [address] [place] [facility] CLIA [id number] [address] [place] [address] [place] US ASCITES SURVEYon [...] and lump, unspecified site STAFF RADIOLOGIST: Dr. Sourav Kohler CONSENT: The risks, benefits, treatment options, [...] using light manual compression. Next, a 5 Iraqi Yueh catheter was advanced into the low [...] all 4 quadrants. No drainable fluid visualized. 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 CT ABD/PEL W IVCONon 022 [facility] Vital Signs Date Time Vital Sign Value Performing Clinician Artisi reynold 05-22-2025 09:00-0400 Body temperature 98 [degF] Dr. Harjeet Bernard MD Work Phone: [facility] 05-22-2025 09:00-0400 Diastolic blood pressure 74 mm[Hg] Dr. Harjeet Bernard MD Work Phone: [facility] 05-22-2025 09:00-0400 Heart rate 88 /min Dr. Harjeet Bernard MD Work Phone: [facility] 05-22-2025 09:00-0400 Respiratory rate 15 /min Dr. Harjeet Bernard MD Work Phone: [facility] 05-22-2025 09:00-0400 SaO2% (BldA) [Mass fraction] 96 % Dr. Harjeet Bernard MD Work Phone: [facility] 05-22-2025 09:00-0400 Systolic blood pressure 114 mm[Hg] Dr. Harjeet Bernard MD Work Phone: 4(380)301-746152 [place] [address] 05-21-2025 10:49-0400 Body height 185.[address] Harjeet Bernard MD Work Phone: 0(741)135-383052 [place] [address] 05-21-2025 10:49-0400 Body weight 86.[address] Harjeet Bernard MD Work Phone: 5(135)736-718152 [place] [address] 05-20-2025 09:19-0400 Body mass index (BMI) [Ratio] 25 kg/m2 Dr. Harjeet Bernard MD Work Phone: 1(883)996-923252 [place] [address] 05-20-2025 07:52-0400 Body temperature 98 [degF] Dr. Harjeet Bernard MD Work Phone: 0(926)044-698652 [place] [address] 05-20-2025 07:52-0400 Diastolic blood pressure 78 mm[Hg] Dr. Harjeet Bernard MD Work Phone: 3(250)613-534952 [place] [address] 05-20-2025 07:52-0400 Heart rate 78 /min Dr. Harjeet Bernard MD Work Phone: 3(585)100-869652 [place] [address] 05-20-2025 07:52-0400 Respiratory rate 16 /min Dr. Harjeet Bernard MD Work Phone: 6(781)469-813252 [place] [address] 05-20-2025 07:52-0400 SaO2% (BldA) [Mass fraction] 99 % Dr. Harjeet Bernard MD Work Phone: 3(566)077-136052 [place] [address] 05-20-2025 07:52-0400 Systolic blood pressure 124 mm[Hg] Dr. Harjeet Bernard MD Work Phone: 8(799)437-773352 [place] [address] 05-20-2025 06:36-0400 Body height 185.[address] Harjeet Bernard MD Work Phone: 6(326)944-155752 [place] [address] 05-20-2025 06:36-0400 Body mass index (BMI) [Ratio] 25.4 kg/m2 Dr. Harjeet Bernard MD Work Phone: 3(758)121-601352 [place] [address] 05-20-2025 06:36-0400 Body weight 87.[address] Harjeet Bernard MD Work Phone: [facility] 05-19-2025 11:49-0400 Body temperature 97.81 [degF] Treatment Wstr Work Phone: [facility] 05-19-2025 11:49-0400 Diastolic blood pressure 76 mm[Hg] Treatment Wstr Work Phone: [facility] 05-19-2025 11:49-0400 Heart rate 56 /min Treatment Wstr Work Phone: [facility] 05-19-2025 11:49-0400 SaO2% (BldA) [Mass fraction] 94 % Treatment Wstr Work Phone: [facility] 05-19-2025 11:49-0400 Systolic blood pressure 124 mm[Hg] Treatment Wstr Work Phone: [facility] 04-19-2025 10:45-0400 Body mass index (BMI) [Ratio] 30.25 kg/m2 Harjeet Bernard MD Work Phone: [facility] 04-19-2025 10:45-0400 Body temperature 97 [degF] Harjeet Bernard MD Work Phone: [facility] 04-19-2025 10:45-0400 Body weight 104 kg Harjeet Bernard MD Work Phone: [facility] 04-19-2025 10:45-0400 Diastolic blood pressure 60 mm[Hg] Harjeet Bernard MD Work Phone: [facility] 04-19-2025 10:45-0400 Heart rate 76 /min Harjeet Bernard MD Work Phone: [facility] 04-19-2025 10:45-0400 Respiratory rate 16 /min Harjeet Bernard MD Work Phone: [facility] 04-19-2025 10:45-0400 Systolic blood pressure 100 mm[Hg] Harjeet Bernard MD Work Phone: [facility] 04-13-2025 12:39-0400 Body height 185.4 cm Nelly Stuart MD Work Phone: [facility] 04-13-2025 12:39-0400 Body mass index (BMI) [Ratio] 28.74 kg/m2 Nelly Stuart MD Work Phone: [facility] 04-13-2025 12:39-0400 Body temperature 99.5 [degF] Nelly Stuart MD Work Phone: [facility] 04-13-2025 12:39-0400 Body weight 98.8 kg Nelly Stuart MD Work Phone: [facility] 04-13-2025 12:39-0400 Diastolic blood pressure 59 mm[Hg] Nelly Stuart MD Work Phone: [facility] 04-13-2025 12:39-0400 Heart rate 77 /min Nelly Stuart MD Work Phone: [facility] 04-13-2025 12:39-0400 SaO2% (BldA) [Mass fraction] 97 % Nelly Stuart MD Work Phone: [facility] 04-13-2025 12:39-0400 Systolic blood pressure 94 mm[Hg] Nelly Stuart MD Work Phone: [facility] 04-12-2025 22:37-0400 Body temperature 97 [degF] Dr. Harjeet Bernard MD Work Phone: [facility] 04-12-2025 22:37-0400 Diastolic blood pressure 84 mm[Hg] Dr. Harjeet Bernard MD Work Phone: [facility] 04-12-2025 22:37-0400 Heart rate 73 /min Dr. Harjeet Bernard MD Work Phone: [facility] 04-12-2025 22:37-0400 Respiratory rate 18 /min Dr. Harjeet Bernard MD Work Phone: [facility] 04-12-2025 22:37-0400 SaO2% (BldA) [Mass fraction] 100 % Dr. Harjeet Bernard MD Work Phone: [facility] 04-12-2025 22:37-0400 Systolic blood pressure 127 mm[Hg] Dr. Harjeet Bernard MD Work Phone: [facility] 04-12-2025 17:42-0400 Body height 185.[address] Harjeet Bernard MD Work Phone: 2(313)720-460552 [place] [address] 04-12-2025 17:42-0400 Body mass index (BMI) [Ratio] 28.1 kg/m2 Dr. Harjeet Bernard MD Work Phone: 3(673)068-963114 [place] [address] 04-12-2025 17:42-0400 Body weight 96.[address] Harjeet Bernard MD Work Phone: [facility] 03-29-2025 13:13-0400 Body mass index (BMI) [Ratio] 24.67 kg/m2 Kellen Penny THERAPIST RESPIRATORY.CNC SUPERVISOR Work Phone: [facility] 03-29-2025 13:13-0400 Body temperature 97.59 [degF] Kellen Penny THERAPIST RESPIRATORY.CNC SUPERVISOR Work Phone: [facility] 03-29-2025 13:13-0400 Body weight 84.8 kg Kellen Penny THERAPIST RESPIRATORY.CNC SUPERVISOR Work Phone: [facility] 03-29-2025 13:13-0400 Diastolic blood pressure 72 mm[Hg] Kellen Penny THERAPIST RESPIRATORY.CNC SUPERVISOR Work Phone: [facility] 03-29-2025 13:13-0400 Heart rate 88 /min Kellen Penny THERAPIST RESPIRATORY.CNC SUPERVISOR Work Phone: [facility] 03-29-2025 13:13-0400 Respiratory rate 18 /min Kellen Penny THERAPIST RESPIRATORY.CNC SUPERVISOR Work Phone: [facility] 03-29-2025 13:13-0400 Systolic blood pressure 108 mm[Hg] Kellen Salguero CNC SUPERVISOR Work Phone: [facility] 03-28-2025 15:26-0400 Body temperature 98.3 [degF] Dr. Harjeet Bernard MD Work Phone: 9(311)166-701214 [place] [address] 03-28-2025 15:26-0400 Diastolic blood pressure 70 mm[Hg] Dr. Harjeet Bernard MD Work Phone: 0(172)490-178214 [place] [address] 03-28-2025 15:26-0400 Heart rate 84 /min Dr. Harjeet Bernard MD Work Phone: 9(391)998-886514 [place] [address] 03-28-2025 15:26-0400 Respiratory rate 16 /min Dr. Harjeet Bernard MD Work Phone: 6(365)003-510014 [place] [address] 03-28-2025 15:26-0400 SaO2% (BldA) [Mass fraction] 98 % Dr. Harjeet Bernard MD Work Phone: 3(798)836-314214 [place] [address] 03-28-2025 15:26-0400 Systolic blood pressure 106 mm[Hg] Dr. Harjeet Bernard MD Work Phone: 2(968)568-987114 [place] [address] 03-28-2025 12:59-0400 Body height 185.[address] Harjeet Bernard MD Work Phone: 4(016)601-808114 [place] [address] 03-28-2025 12:59-0400 Body mass index (BMI) [Ratio] 26.2 kg/m2 Dr. Harjeet Bernard MD Work Phone: 1(762)420-742914 [place] [address] 03-28-2025 12:59-0400 Body weight 90.[address] Harjeet Bernard MD Work Phone: 5(967)767-041614 [place] [address] 01-15-2025 23:23-0400 Body temperature 98 [degF] Dr. Harjeet Bernard MD Work Phone: 3(296)673-551014 [place] [address] 01-15-2025 23:23-0400 Diastolic blood pressure 70 mm[Hg] Dr. Harjeet Bernard MD Work Phone: [facility] 01-15-2025 23:23-0400 Heart rate 75 /min Dr. Harjeet Bernard MD Work Phone: [facility] 01-15-2025 23:23-0400 Respiratory rate 18 /min Dr. Harjeet Bernard MD Work Phone: [facility] 01-15-2025 23:23-0400 SaO2% (BldA) [Mass fraction] 97 % Dr. Harjeet Bernard MD Work Phone: 3(918)963-652914 [place] [address] 01-15-2025 23:23-0400 Systolic blood pressure 107 mm[Hg] Dr. Harjeet Bernard MD Work Phone: 0(807)845-335452 [place] [address] 01-15-2025 19:26-0400 Body height 185.[address] Harjeet Bernard MD Work Phone: [facility] 01-15-2025 19:26-0400 Body mass index (BMI) [Ratio] 26 kg/m2 Dr. Harjeet Bernard MD Work Phone: [facility] 01-15-2025 19:26-0400 Body weight 89.[address] Harjeet Bernard MD Work Phone: [facility] 12-21-2024 15:17-0400 Body mass index (BMI) [Ratio] 27.02 kg/m2 Harjeet Bernard MD Work Phone: [facility] 12-21-2024 15:17-0400 Body weight 92.9 kg Harjeet Bernard MD Work Phone: [facility] 12-21-2024 15:17-0400 Diastolic blood pressure 75 mm[Hg] Harjeet Bernard MD Work Phone: [facility] 12-21-2024 15:17-0400 Heart rate 103 /min Harjeet Bernard MD Work Phone: [facility] 12-21-2024 15:17-0400 Respiratory rate 16 /min Harjeet Bernard MD Work Phone: [facility] 12-21-2024 15:17-0400 SaO2% (BldA) [Mass fraction] 97 % Harjeet Bernard MD Work Phone: [facility] 12-21-2024 15:17-0400 Systolic blood pressure 104 mm[Hg] Harjeet Bernard MD Work Phone: [facility] 12-16-2024 13:06-0400 Body temperature 98.2 [degF] Dr. Harjeet Bernard MD Work Phone: [facility] 12-16-2024 13:06-0400 Diastolic blood pressure 77 mm[Hg] Dr. Harjeet Bernard MD Work Phone: [facility] 12-16-2024 13:06-0400 Heart rate 80 /min Dr. Harjeet Bernard MD Work Phone: [facility] 12-16-2024 13:06-0400 Respiratory rate 18 /min Dr. Harjeet Bernard MD Work Phone: 0(051)575-182614 [place] [address] 12-16-2024 13:06-0400 SaO2% (BldA) [Mass fraction] 100 % Dr. Harjeet Bernard MD Work Phone: [facility] 12-16-2024 13:06-0400 Systolic blood pressure 104 mm[Hg] Dr. Harjeet Bernard MD Work Phone: [facility] 12-15-2024 11:22-0400 Body height 185.[address] Harjeet Bernard MD Work Phone: 0(119)461-619614 [place] [address] 12-15-2024 11:22-0400 Body mass index (BMI) [Ratio] 26.9 kg/m2 Dr. Harjeet Bernard MD Work Phone: 3(669)099-185914 [place] [address] 12-15-2024 11:22-0400 Body weight 92.[address] Harjeet Bernard MD Work Phone: 0(615)210-928714 [place] [address] 12-15-2024 10:11-0400 Diastolic blood pressure 76 mm[Hg] Dr. Harjeet Bernard MD Work Phone: 6(653)109-338214 [place] [address] 12-15-2024 10:11-0400 Heart rate 89 /min Dr. Harjeet Bernard MD Work Phone: 1(039)652-976052 [place] [address] 12-15-2024 10:11-0400 Respiratory rate 14 /min Dr. Harjeet Bernard MD Work Phone: 0(095)882-090852 [place] [address] 12-15-2024 10:11-0400 SaO2% (BldA) [Mass fraction] 98 % Dr. Harjeet Bernard MD Work Phone: 6(043)825-909652 [place] [address] 12-15-2024 10:11-0400 Systolic blood pressure 126 mm[Hg] Dr. Harjeet Bernard MD Work Phone: 1(050)698-746152 [place] [address] 12-15-2024 09:48-0400 Body temperature 98.7 [degF] Dr. Harjeet Bernard MD Work Phone: 1(039)878-754152 [place] [address] 12-15-2024 08:11-0400 Body height 185.[address] Harjeet Bernard MD Work Phone: 6(354)768-932152 [place] [address] 12-15-2024 08:11-0400 Body mass index (BMI) [Ratio] 26.9 kg/m2 Dr. Harjeet Bernard MD Work Phone: 0(315)322-001914 [place] [address] 12-15-2024 08:11-0400 Body weight 92.[address] Harjeet Bernard MD Work Phone: 9(932)364-491114 [place] [address] 12-04-2024 10:53-0500 Body mass index (BMI) [Ratio] 27.63 kg/m2 Julissa Ugarte APRN.FLOTATION TENDER Work Phone: [facility] 12-04-2024 10:53-0500 Body weight 95 kg Julissa Ugarte APRN.FLOTATION TENDER Work Phone: [facility] 12-04-2024 10:53-0500 Diastolic blood pressure 71 mm[Hg] Julissa Ugarte THERAPIST RESPIRATORY.FLOTATION TENDER Work Phone: [facility] 12-04-2024 10:53-0500 Heart rate 73 /min Julissa Ugarte THERAPIST RESPIRATORY.FLOTATION TENDER Work Phone: [facility] 12-04-2024 10:53-0500 Respiratory rate 16 /min Julissa Ugarte THERAPIST RESPIRATORY.FLOTATION TENDER Work Phone: [facility] 12-04-2024 10:53-0500 Systolic blood pressure 106 mm[Hg] Julissa Ugarte THERAPIST RESPIRATORY.FLOTATION TENDER Work Phone: [facility] 11-29-2024 15:09-0500 Body temperature 98.9 [degF] Dr. Harjeet Bernard MD Work Phone: [facility] 11-29-2024 15:09-0500 Diastolic blood pressure 75 mm[Hg] Dr. Harjeet Bernard MD Work Phone: [facility] 11-29-2024 15:09-0500 Heart rate 84 /min Dr. Harjeet Bernard MD Work Phone: 7(280)297-947714 [place] [address] 11-29-2024 15:09-0500 Respiratory rate 16 /min Dr. Harjeet Bernard MD Work Phone: [facility] 11-29-2024 15:09-0500 SaO2% (BldA) [Mass fraction] 95 % Dr. Harjeet Bernard MD Work Phone: [facility] 11-29-2024 15:09-0500 Systolic blood pressure 115 mm[Hg] Dr. Harjeet Bernard MD Work Phone: 5(706)182-777414 [place] [address] 11-27-2024 14:28-0500 Body weight 91.[address] Harjeet Bernard MD Work Phone: 2(257)289-700914 [place] [address] 11-26-2024 19:49-0500 Body mass index (BMI) [Ratio] 26.7 kg/m2 Dr. Harjeet Bernard MD Work Phone: 6(663)985-239014 [place] [address] 06-15-2024 10:55-0400 Body height 185.4 cm Nicolasa Denise DO Work Phone: [facility] 06-15-2024 10:55-0400 Body mass index (BMI) [Ratio] 29.29 kg/m2 Nicolasa Denise DO Work Phone: [facility] 06-15-2024 10:55-0400 Body weight 100.7 kg Nicolasa Denise DO Work Phone: [facility] 05-15-2024 11:11-0400 Body mass index (BMI) [Ratio] 30.71 kg/m2 Harjeet Bernard MD Work Phone: [facility] 05-15-2024 11:11-0400 Body temperature 97.11 [degF] Harjeet Bernard MD Work Phone: [facility] 05-15-2024 11:11-0400 Body weight 105.6 kg Harjeet Bernard MD Work Phone: [facility] 05-15-2024 11:11-0400 Diastolic blood pressure 62 mm[Hg] Harjeet Bernard MD Work Phone: [facility] 05-15-2024 11:11-0400 Heart rate 71 /min Harjeet Bernard MD Work Phone: [facility] 05-15-2024 11:11-0400 Respiratory rate 16 /min Harjeet Bernard MD Work Phone: [facility] 05-15-2024 11:11-0400 SaO2% (BldA) [Mass fraction] 99 % Harjeet Bernard MD Work Phone: [facility] 05-15-2024 11:11-0400 Systolic blood pressure 102 mm[Hg] Harjeet Bernard MD Work Phone: [facility] 04-05-2023 09:20-0400 Body temperature 98.6 [degF] Harjeet Bernard MD Work Phone: [facility] 04-05-2023 09:20-0400 Body weight 108.41 kg Harjeet Bernard MD Work Phone: [facility] 04-05-2023 09:20-0400 Diastolic blood pressure 84 mm[Hg] Harjeet Bernard MD Work Phone: [facility] 04-05-2023 09:20-0400 Heart rate 75 /min Harjeet Bernard MD Work Phone: [facility] 04-05-2023 09:20-0400 Respiratory rate 18 /min Harjeet Bernard MD Work Phone: [facility] 04-05-2023 09:20-0400 SaO2% (BldA) [Mass fraction] 96 % Harjeet Bernard MD Work Phone: [facility] 04-05-2023 09:20-0400 Systolic blood pressure 118 mm[Hg] Harjeet Bernard MD Work Phone: [facility] 01-09-2023 15:48-0400 Body weight 101.61 kg Beckie Eaton DO Work Phone: [facility] 01-09-2023 15:48-0400 Diastolic blood pressure 71 mm[Hg] Beckie Eaton DO Work Phone: [facility] 01-09-2023 15:48-0400 Heart rate 71 /min Beckie Eaton DO Work Phone: [facility] 01-09-2023 15:48-0400 SaO2% (BldA) [Mass fraction] 97 % Beckie Eaton DO Work Phone: [facility] 01-09-2023 15:48-0400 Systolic blood pressure 115 mm[Hg] Beckie Eaton DO Work Phone: [facility] 11-05-2022 10:19-0500 Body height 185.4 cm Nicolasa Denise DO Work Phone: [facility] 11-05-2022 10:19-0500 Body weight 97.98 kg Nicolasa Denise DO Work Phone: [facility] 01-16-2023 16:50-0500 Body temperature 97.5 [degF] Harjeet Bernard MD Work Phone: [facility] 10-15-2022 16:50-0500 Body weight 95.71 kg Harjeet Bernard MD Work Phone: [facility] 10-15-2022 16:50-0500 Diastolic blood pressure 82 mm[Hg] Harjeet Bernard MD Work Phone: [facility] 10-15-2022 16:50-0500 Heart rate 81 /min Harjeet Bernard MD Work Phone: [facility] 10-15-2022 16:50-0500 Respiratory rate 18 /min Harjeet Bernard MD Work Phone: [facility] 10-15-2022 16:50-0500 SaO2% (BldA) [Mass fraction] 97 % Harjeet Bernard MD Work Phone: [facility] 10-15-2022 16:50-0500 Systolic blood pressure 120 mm[Hg] Harjeet Bernard MD Work Phone: [facility] 09-28-2022 10:16-0500 Body height 185.4 cm Monroe Maloney MD Work Phone: [facility] 09-28-2022 10:16-0500 Body weight 95.35 kg Monroe Maloney MD Work Phone: [facility] 09-28-2022 10:16-0500 Diastolic blood pressure 62 mm[Hg] Monroe Maloney MD Work Phone: [facility] 09-28-2022 10:16-0500 Heart rate 81 /min Monroe Maloney MD Work Phone: [facility] 09-28-2022 10:16-0500 Systolic blood pressure 107 mm[Hg] Monroe Maloney MD Work Phone: [facility] 09-14-2022 09:13-0500 Body height 185.4 cm Nicolasa Denise DO Work Phone: [facility] 09-14-2022 09:13-0500 Body weight 93.26 kg Nicolasa Howie DO Work Phone: [facility] 08-27-2022 09:31-0500 Body height 185.4 cm Nicolasa Howie DO Work Phone: [facility] 08-27-2022 09:31-0500 Body weight 91.17 kg Nicolasa Howie DO Work Phone: [facility] 07-30-2022 09:58-0400 Body height 185.4 cm Nicolasa Howie DO Work Phone: [facility] 07-30-2022 09:58-0400 Body weight 80.74 kg Nicolasa Howie DO Work Phone: [facility] 07-19-2022 14:00-0400 Heart rate 82 /min Hannah Mcnair MD Work Phone: [facility] 07-19-2022 14:00-0400 Respiratory rate 16 /min Hannah Mncair MD Work Phone: [facility] 07-19-2022 14:00-0400 SaO2% (BldA) [Mass fraction] 97 % Hannah Mcnair MD Work Phone: [facility] 07-19-2022 13:50-0400 Diastolic blood pressure 66 mm[Hg] Hannah Mcnair MD Work Phone: [facility] 07-19-2022 13:50-0400 Systolic blood pressure 103 mm[Hg] Hannah Mcnair MD Work Phone: [facility] 07-19-2022 13:27-0400 Body temperature 97.2 [degF] Hannah Mcnair MD Work Phone: [facility] 07-19-2022 12:28-0400 Body height 185.4 cm Hannah Mcnair MD Work Phone: [facility] 07-19-2022 12:28-0400 Body weight 78.47 kg Hannah Mcnair MD Work Phone: [facility] 07-09-2022 08:06-0400 Body height 185.4 cm Nicolasa Denise DO Work Phone: [facility] 07-09-2022 08:06-0400 Body weight 78.74 kg Nicolasa Denise DO Work Phone: [facility] 05-11-2022 09:06-0400 Body height 185.4 cm Pac 7 Work Phone: [facility] 05-11-2022 09:06-0400 Body temperature 97 [degF] Pac 7 Work Phone: [facility] 05-11-2022 09:06-0400 Body weight 104.78 kg Pac 7 Work Phone: [facility] 05-11-2022 09:06-0400 Diastolic blood pressure 76 mm[Hg] Pac 7 Work Phone: [facility] 05-11-2022 09:06-0400 Heart rate 80 /min Pac 7 Work Phone: [facility] 05-11-2022 09:06-0400 SaO2% (BldA) [Mass fraction] 99 % Pac 7 Work Phone: [facility] 05-11-2022 09:06-0400 Systolic blood pressure 134 mm[Hg] Pac 7 Work Phone: [facility] 05-04-2022 09:46-0400 Body height 185.4 cm Nicolasa Denise DO Work Phone: [facility] 05-04-2022 09:46-0400 Body temperature 98.1 [degF] Nicolasa Denise DO Work Phone: [facility] 05-04-2022 09:46-0400 Body weight 103.78 kg Nicolasa Denise DO Work Phone: [facility] 05-04-2022 09:46-0400 Diastolic blood pressure 79 mm[Hg] Nicolasa Denise DO Work Phone: [facility] 05-04-2022 09:46-0400 Heart rate 86 /min Nicolasa Guilloryente DO Work Phone: [facility] 05-04-2022 09:46-0400 Respiratory rate 20 /min Nicolasa Guilloryente DO Work Phone: [facility] 05-04-2022 09:46-0400 SaO2% (BldA) [Mass fraction] 100 % Nicolasa Guilloryente DO Work Phone: [facility] 05-04-2022 09:46-0400 Systolic blood pressure 138 mm[Hg] Nicolasa Guilloryente DO Work Phone: [facility] 05-03-2022 10:19-0400 Body temperature 98.2 [degF] Fany Masci DO Work Phone: [facility] 05-03-2022 10:19-0400 Body weight 103.87 kg Fany Masci DO Work Phone: [facility] 05-03-2022 10:19-0400 Diastolic blood pressure 76 mm[Hg] Fany Masci DO Work Phone: [facility] 05-03-2022 10:19-0400 Heart rate 80 /min Fany Masci DO Work Phone: [facility] 05-03-2022 10:19-0400 SaO2% (BldA) [Mass fraction] 98 % Fany Masci DO Work Phone: [facility] 05-03-2022 10:19-0400 Systolic blood pressure 119 mm[Hg] Fany Masci DO Work Phone: [facility] 05-02-2022 14:53-0400 Body height 185.4 cm Priscila Clarke MD Work Phone: [facility] 05-02-2022 14:53-0400 Body temperature 98.4 [degF] Priscila Clarke MD Work Phone: [facility] 05-02-2022 14:53-0400 Body weight 102.97 kg Priscila Clarke MD Work Phone: [facility] [place] 05-02-2022 14:53-0400 Diastolic blood pressure 62 mm[Hg] Priscila Clarke MD Work Phone: [facility] [place] 05-02-2022 14:53-0400 Heart rate 99 /min Priscila Clarke MD Work Phone: [facility] [place] 05-02-2022 14:53-0400 SaO2% (BldA) [Mass fraction] 96 % Priscila Clarke MD Work Phone: [facility] [place] 05-02-2022 14:53-0400 Systolic blood pressure 110 mm[Hg] Priscila Clarke MD Work Phone: [facility] [place] 04-26-2022 09:40-0400 Diastolic blood pressure 82 mm[Hg] Priscila Clarke MD Work Phone: [facility] [place] 04-26-2022 09:40-0400 Heart rate 80 /min Priscila Clarke MD Work Phone: [facility] [place] 04-26-2022 09:40-0400 Respiratory rate 16 /min Priscila Clarke MD Work Phone: [facility] [place] 04-26-2022 09:40-0400 SaO2% (BldA) [Mass fraction] 98 % Priscila Clarke MD Work Phone: [facility] [place] 04-26-2022 09:40-0400 Systolic blood pressure 122 mm[Hg] Priscila Clarke MD Work Phone: [facility] [place] 04-26-2022 07:50-0400 Body temperature 97.2 [degF] Priscila Clarke MD Work Phone: [facility] [place] 03-02-2022 07:24-0400 Body weight 105.23 kg Julissa Ugarte THERAPIST RESPIRATORY.FLOTATION TENDER Work Phone: [facility] [place] 03-02-2022 07:24-0400 Diastolic blood pressure 70 mm[Hg] Julissa Ugarte THERAPIST RESPIRATORY.FLOTATION TENDER Work Phone: [facility] [place] 03-02-2022 07:24-0400 Heart rate 76 /min Julissa Ugarte THERAPIST RESPIRATORY.FLOTATION TENDER Work Phone: [facility] [place] 03-02-2022 07:24-0400 Respiratory rate 16 /min Julissa Ugarte THERAPIST RESPIRATORY.FLOTATION TENDER Work Phone: [facility] [place] 03-02-2022 07:24-0400 Systolic blood pressure 120 mm[Hg] Julissa Ugarte THERAPIST RESPIRATORY.FLOTATION TENDER Work Phone: [facility] [place] Encounters Encounter Date Encounter Type Care Provider Facility Start: 05-22-2025 Non-patient / Non-visit Dr. Hamzah rendon MD -[facility] Work Phone: Start: 05-21-2025 Non-patient / Non-visit Dr. Azul Perera MD -[facility] Work Phone: Start: 05-20-2025 Non-patient / Non-visit Dr. Hamzah rendon MD -[facility] Work Phone: Start: 05-20-2025 ambulatory Jasahara Jeff Facil ity:[facility] Start: 05-20-2025 End: 05-22-2025 Evaluation and management of inpatient Dr. Hamzah Alvarez MD -Progressive Care Unit Work Phone: Start: 05-19-2025 End: 05-19-2025 Telephone encounter Fany Parnell DO Work Phone: Hematology/Oncology Comment on above: Appointment Start: 05-19-2025 End: 05-19-2025 ambulatory Treatment Rm 18 Jas Pending Sale To [facility] Work Phone: Hematology/Oncology Comment on above: Recurrent dehydratio n (Primary Dx); High output ileostomy (HCC) Start: 05-19-2025 End: 05-19-2025 ambulatory HARJEET D TALAMPAS Facility:[facility] Start: 05-17-2025 End: 05-17-2025 ambulatory HARJEET D TALAMPAS Facility:[facility] Start: 05-14-2025 End: 05-14-2025 ambulatory NELLY XIAO Facility:[facility] Start: 05-07-2025 End: 05-07-2025 ambulatory HARJEET D TALAMPAS Facility:[facility] Start: 05-05-2025 End: 05-05-2025 ambulatory HARJEET BERNARD Facility:[facility] Start: 04-30-2025 End: 04-30-2025 ambulatory [facility] Facility:[facility] Start: 04-27-2025 End: 04-28-2025 Telephone encounter Harjeet Bernard MD Work Phone: Internal Medicine [facility] Comment on above: Patient Question Start: 04-19-2025 [...] left lower extremity Start: 04-19-2025 End: 04-19-2025 [facility] Facility:[facility] Start: 04-16-2025 End: 04-16-2025 [facility] Facility:[facility] Start: 04-15-2025 ambulatory [facility] Facility:[facility] Start: 04-15-2025 End: 04-16-2025 Subsequent hospital visit by physician [facility] Work Phone: Radiology Comment [...] leg edema Start: 04-13-2025 End: 04-13-2025 ambulatory NICOLASA DENISE Facility:[facility] Start: 04-12-2025 End: 04-12-2025 Emergency department patient visit Dr. Harjeet Bernard MD Work Phone: -Emergency Department Work Phone: Start: 04-12-2025 End: 04-12-2025 ambulatory HARJEET D NILOAMPAS Facility:[facility] Start: 04-05-2025 End: 04-05-2025 [facility] Start: 03-29-2025 End: 03-30-2025 Follow-up encounter Kellen Salguero APRN.CNP Work Phone: Internal Medicine [place] Start: 03-29-2025 End: 03-29-2025 Office outpatient visit 25 minutes Kellen Salguero APRN.CNP Work Phone: Internal Medicine [facility] Comment on above: Hyponatremia (Primar y Dx); [place] (acute kidney injury); High output ileostomy (HCC); Dehydration; Stage 3b chronic kidney disease (HCC) Start: 03-29-2025 End: 03-29-2025 ambulatory KELLEN SALGUERO Facility:[facility] Start: 03-28-2025 End: 03-28-2025 Emergency department patient visit Dr. Harjeet Bernard MD Work Phone: -Emergency Department Work Phone: Start: 03-22-2025 End: 03-22-2025 ambulatory HARJEET D TALAMPAS Facility:[facility] Start: 03-08-2025 End: 03-08-2025 ambulatory HARJEET D TALAMPAS Facility:[facility] Start: 02-23-2025 End: 02-23-2025 ambulatory HARJEET D TALAMPAS Facility:[facility] Start: 02-08-2025 End: 02-08-2025 ambulatory HARJEET D TALAMPAS Facility:[facility] Start: 02-03-2025 End: 02-03-2025 Telephone encounter Nicolasa Denise DO Work Phone: Colorectal Surgery Comment on above: Patient Update Start: 02-01-2025 End: 02-01-2025 ambulatory [facility] Facility:[facility] Start: 01-27-2025 End: 01-27-2025 Telephone encounter Nicolasa Denise DO Work Phone: Colorectal Surgery Start: 01-25-2025 End: 01-25-2025 ambulatory [facility] Facility:[facility] Start: 01-18-2025 End: 01-18-2025 ambulatory [facility] Facility:[facility] Start: 01-18-2025 End: 01-18-2025 Telephone encounter Nicolasa Denise DO Work Phone: Colorectal Surgery Start: 01-15-2025 End: 01-15-2025 Emergency department patient visit Dr. Harjeet Bernard MD Work Phone: -Emergency Department Work Phone: Start: 01-15-2025 End: 01-15-2025 Telephone encounter Nuzhat Howie FARIAS Work Phone: Colorectal Surgery Start: 01-14-2025 End: 01-14-2025 Telephone encounter Nuzhat Howie DO Work Phone: Colorectal Surgery Comment on above: Patient Update Start: 01-13-2025 End: 01-13-2025 Admission to same day surgery center Nicolasa Denise DO Work Phone: Colorectal Surgery Comment on above: Update to the video chat we had on December 28 Start: 01-13-2025 End: 01-13-2025 ambulatory Nicolasa Denise DO Work Phone: Colorectal Surgery Start: 01-11-2025 End: 01-11-2025 ambulatory [facility] Facility:[facility] Start: 01-04-2025 End: 01-04-2025 ambulatory [facility] Facility:[facility] Start: 12-28-2024 End: 12-28-2024 Admission to same day surgery center Nicoalsa Denise DO Work Phone: Colorectal Surgery Comment on above: 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); 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); Portal vein thrombosis Start: 12-28-2024 End: 12-28-2024 Telemedicine consultation with patient Nicolasa Denise DO Work Phone: Colorectal Surgery Start: 12-28-2024 End: 12-28-2024 ambulatory HARJEET CORCORANAMPLOAN Facility:[facility] Start: 12-21-2024 End: 12-21-2024 ambulatory HARJEET Anay CORCORANAMPLOAN Facility:[facility] Start: 12-21-2024 End: 12-21-2024 ambulatory HARJEET D NILOAMPLOAN Facility:[facility] Start: 12-21-2024 End: 12-21-2024 Office outpatient visit 40 minutes Harjeet Bernard MD Work Phone: Internal Medicine [facility] Comment on above: [place] (acute kidney in jury) (HCC) (Primary Dx); Acute renal insufficiency; Excessive gas; 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 Azul Peerra MD -[facility] Work Phone: Start: 12-15-2024 Non-patient / Non-visit Dr. Celeste Jc DO -[facility] Work Phone: Start: 12-15-2024 End: 12-16-2024 ambulatory Mk Jc Facility:[facility] Start: 12-15-2024 End: 12-16-2024 Evaluation and management of inpatient Dr. Mk Jc DO -Medical Surgical 3 Work Phone: Start: 12-15-2024 End: 12-16-[address] Harjeet Bernard MD Work Phone: [facility] Work Phone: Start: 12-14-2024 End: 12-14-2024 Admission to same day surgery center Nuzhat Valente DO Work Phone: Colorectal Surgery Comment on above: Raghavendra knutson Question Start: 12-14-2024 End: 12-14-2024 ambulatory Nicolasa Denise DO Work Phone: Colorectal Surgery Start: 12-14-2024 End: 12-14-2024 Follow-up encounter Julissa Ugarte APRN.FLOTATION TENDER Work Phone: Internal Medicine [place] Start: 12-14-2024 End: 12-14-2024 Telephone encounter Julissa Ugarte APRN.FLOTATION TENDER Work Phone: Internal Medicine [place] Comment on above: Results Start: 12-12-2024 End: 12-14-2024 Telephone encounter Junior lUloa DO Work Phone: [facility] Start: 12-12-2024 End: 12-12-2024 [facility] Start: 12-11-2024 End: 12-11-2024 ambulatory JULISSA UGARTE Facility:[facility] Start: 12-07-2024 End: 12-14-2024 ambulatory Julissa Ugarte APRN.FLOTATION TENDER Work Phone: Internal Medicine [facility] Comment on above: Results Start: 12-07-2024 End: 12-14-2024 E-mail encounter from caregiver Julissa Ugarte PERLA.FLOTATION TENDER Work Phone: Internal Medicine [place] Start: 12-07-2024 End: 02-06-2025 Follow-up encounter Julissa Ugarte APRN.FLOTATION TENDER Work Phone: Internal Medicine [facility] Start: 12-04-2024 End: 12-04-2024 ambulatory JULISSA UGARTE Facility:[facility] Start: 12-04-2024 End: 12-04-2024 Patient encounter procedure Julissa Ugarte APRN.FLOTATION TENDER Work Phone: Internal Medicine [place] Comment on above: Nausea vomiting and diarrhea (Primary Dx); Hypokalemia; [place] (acute kidney injury) (HCC); Special screening examination for viral disease; Screening for HIV (human immunodeficiency virus) Start: 11-30-2024 End: 11-30-2024 ambulatory Harjeet Bernard MD Work Phone: Internal Medicine [facility] Comment on above: Hospital F/U Start: 11-29-2024 Non-patient / Non-visit Dr. Sara Quezada DO [facility] Work Phone: Start: 11-28-2024 Non-patient / Non-visit Dr. Sara Quezada DO [facility] Work Phone: Start: 11-27-2024 Non-patient / Non-visit Dr. Sara Quezada DO [facility] Work Phone: Start: 11-27-2024 ambulatory Ibrahima Doan [facility] Start: 11-27-2024 End: 11-29-2024 Evaluation and management of inpatient Dr. Sara Quezada DO [facility] Work Phone: Start: 11-26-2024 Non-patient / Non-visit Dr. Ibrahima sweet [facility] Work Phone: Start: 11-26-2024 ambulatory Ibrahima Olimpia [facility] Start: 11-04-2024 End: 11-17-2024 Refill Nicolasa Denise DO Work Phone: Colorectal Surgery Comment on above: Refill Request Start: 09-21-2024 End: 09-21-2024 Admission to same day surgery center Nicolasa Denise DO Work Phone: Colorectal Surgery Comment on above: Raghavendra guzman Photo Start: 09-21-2024 End: 09-21-2024 ambulatory Nicolasa Denise [...] 07-13-2024 Telemedicine consultation with patient Nicolasa Denise Work Phone: Colorectal Surgery Start: 07-13-2024 End: 07-13-2024 ambulatory [facility] Facility:[facility] Start: 06-15-2024 End: 06-15-2024 Patient encounter procedure Nicolasa Serrano Howie Work Phone: Colorectal Surgery Comment on above: 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); 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) Start: 06-15-2024 End: 06-15-2024 ambulatory NUZHAT VALENTE Facility:[facility] Start: 06-15-2024 End: 06-15-2024 Nursing evaluation of patient and report Stoma Therapy Work Phone: Colorectal Surgery Comment on above: Attention to ileosto my (HCC) (Primary Dx); Fitting and adjustment of gastrointestinal appliance and device Start: 05-15-2024 End: 05-15-2024 Office outpatient visit 25 minutes Harjeet Bernard MD Work Phone: Internal Medicine [facility] Comment on above: Recurrent major depr essive disorder, in partial remission (HCC) (Primary Dx); 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); AMBROSE on CPAP; Hypercholesteremia <130; Elevated glucose; Encounter for long-term current use of medication Start: 05-15-2024 End: 05-15-2024 Subsequent hospital visit by physician [facility] Cat Scan Comment on above: 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 [D37.3] Start: 05-07-2024 Telephone encounter Nicolasa Denise DO Work Phone: Colorectal Surgery Comment on above: Patient Update Start: 04-13-2024 Telephone encounter Nicolasa Serrano Howie FARIAS Work Phone: Colorectal Surgery Comment on above: Patient Update Start: 03-23-2024 Refill Harjeet lafleur MD Work Phone: Internal Medicine [place] Comment on above: Refill Request Start: 01-22-2024 End: 01-22-2024 Nursing evaluation of patient and report Stoma Therapy Work Phone: Colorectal Surgery Comment on above: Ileostomy in place ( HCC) (Primary Dx) Start: 01-15-2024 Telephone encounter Stoma Ther apy Work Phone: HOSP STOMA Comment on above: Stoma Consult Start: 11-11-2023 End: 11-11-2023 [facility] Harjeet Bernard MD Work Phone: Internal Medicine [facility] Comment on above: Recurrent major depr essive disorder, in partial remission (HCC) (Primary Dx) Start: 06-24-2023 End: 06-24-2023 Nursing evaluation of patient and report Stoma Therapy Work Phone: Colorectal Surgery Comment on above: Ileostomy in place ( HCC) (Primary Dx) Start: 05-17-2023 End: 05-17-2023 Subsequent hospital visit by physician [facility] (I-Stat) Work Phone: Cat Scan Comment on above: Intra-abdominal and pelvic swelling, mass and lump, unspecified site [R19.00] Start: 05-14-2023 Telephone encounter Harjeet lyons MD Work Phone: Internal Medicine [place] Comment on above: CPAP Supplies Start: 04-05-2023 End: 04-05-2023 Office outpatient visit 25 minutes Harjeet Bernard MD Work Phone: Internal Medicine [facility] Comment on above: Recurrent major depr essive disorder, in partial remission (HCC) (Primary Dx); AMBROSE on CPAP; 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) Start: 02-12-2023 Refill Julissa Ugarte APRN.CNS Work Phone: Internal Medicine [facility] Comment on above: Refill Request Start: 01-09-2023 [...] with patient Nicolasa Denise DO Work Phone: [facility] Start: 12-19-2022 End: 12-19-2022 ambulatory Nicolasa Denise DO Work Phone: Colorectal Surgery Comment on above: 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) Start: 12-19-2022 End: 12-19-2022 Telemedicine consultation with patient Nicolasa Denise DO Work Phone: [facility] Start: 12-17-2022 End: 12-17-2022 ambulatory Nicolasa Denise DO Work Phone: Colorectal Surgery Comment on above: 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) Start: 12-17-2022 End: 12-17-2022 Telemedicine consultation with patient Nicolasa Denise DO Work Phone: [facility] Start: 11-21-2022 Telephone encounter Beckie Cruz [...] End: 10-19-2022 Telemedicine consultation with patient Jose Waite JARAD Work Phone: [facility] Start: 10-15-2022 End: 10-15-2022 Office outpatient visit 25 minutes Harjeet Bernard MD Work Phone: Internal Medicine [facility] Comment on above: Iron deficiency anem ia, [...] with patient Beckie Eaton DO Work Phone: [facility] Start: 07-30-2022 E-mail encounter leoncio m caregiver Nicolasa Denise DO Work Phone: [facility] Start: 07-30-2022 Follow-up encounter Nicolasa Denise DO Work Phone: Colorectal Surgery Comment on above: 1 month follow up Start: 07-30-2022 End: 07-30-2022 Nursing evaluation of patient and report Stoma Therapy Work Phone: Colorectal Surgery Comment on above: Encounter for attent ion to ileostomy (HCC) (Primary Dx) Start: 07-30-2022 End: 07-30-2022 Patient encounter procedure Nicolasa Irene Phone: Colorectal Surgery Comment on above: Attention [...] with patient Silvana Herrera MD Work Phone: [facility] Start: 07-25-2022 End: 07-25-2022 ambulatory Silvana Herrera MD Work Phone: Infectious Disease Comment on above: Outside Lab Results (copat) Start: 07-25-2022 End: 07-25-2022 Patient encounter procedure [facility]-Laboratory, Specimen Start: 07-20-2022 ambulatory Graciela cortez RN Work Phone: [employer] [place] Start: 07-20-2022 Follow-up encounter Graciela To lisy RN Work Phone: Patch 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 Operator Management Comment on above: Transition Of Care ( TCM follow up [facility] Hospital Discharge 06/28/22) Start: 07-19-2022 End: 07-19-2022 Subsequent hospital visit by physician Hannah Mcnair MD Work Phone: Gastroenterology Comment on above: Bile leak [K83.9] Start: 07-16-2022 End: 07-16-2022 ambulatory Silvana Herrera MD Work Phone: Infectious Disease Comment on above: Outside Lab Results (copat) Start: 07-16-2022 End: 07-16-2022 Patient encounter procedure [facility]-Laboratory, Specimen Start: 07-13-2022 ambulatory [facility] cortez RN [facility] Start: 07-13-2022 Follow-up encounter Norrisabida To lisy RN Work Phone: Patch Machine Operator Management Comment on above: Transition Of Care ( TCM follow up [facility] Hospital Discharge 06/28/22) Start: 07-12-2022 Telephone encounter Niraj Miller RN G astroenterology Comment on above: Appointment Confirma tion (/) Start: 07-11-2022 ambulatory Silvana Herrera MD Work Phone: [facility] Start: 07-11-2022 Telephone encounter Silvana warren [...] 07-07-2022 ambulatory Graciela cortez RN Work Phone: [facility] Start: 07-07-2022 Follow-up encounter Graciela wasserman RN Work Phone: Patch Machine Operator Management Comment on above: Transition Of Care ( TCM follow up [facility] Hospital Discharge 06/28/22) Start: 07-03-2022 ambulatory Dmitriy Starks RN Infecti ous Disease Comment on above: CoPat Management Start: 06-29-2022 Patient Outreach Graciela swartz RN Work Phone: Patch Machine Operator Management Comment on above: Transition Of Care ( TCM Initial [facility] Hospital Discharge 06/28/22) Start: 06-28-2022 ambulatory [...] to establishment [facility] [address] Work Phone: [facility] Start: 05-11-2022 End: 05-11-2022 ambulatory Pacc [...] of appendix Start: 05-03-2022 End: 05-03-2022 ambulatory Fany Parnell DO Work Phone: Hematology/Oncology Comment on above: Mass of appendix (Pr imary Dx); Microcytic anemia Start: 05-03-2022 End: 05-03-2022 Patient encounter procedure Fany Parnell DO Work Phone: [facility] Start: 05-02-2022 End: 05-02-2022 Patient encounter procedure Priscila Clarke MD Work Phone: General Surgery Comment on above: Upper abdominal mass (Primary Dx) Start: 04-30-2022 Telephone encounter Priscila Clarke MD Work Phone: [place] [facility] Adult Comment on above: Application 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 - O ther Start: 04-26-2022 End: 04-26-2022 Subsequent hospital visit by physician Priscila Clarke MD Work Phone: Ambulatory Surgery Comment on above: Anemia, unspecified type [D64.9] Start: 2022 Telephone encounter Priscila Clarke MD Work Phone: General Surgery Comment on above: Results Appointment (New pat ient) Start: 2022 End: 2022 ambulatory SOURAV KOHLER Facility:[facility] Start: 04-23-2022 Orders Only Marielos porras RN [facility] Radiology Comment on above: Omental mass (Primar y Dx) Start: 04-20-2022 End: 04-20-2022 Subsequent hospital visit by physician Ct Prep Pending Sale To [facility] Cat Scan Comment on above: Intra-abdominal and pelvic swelling, mass and lump, unspecified site [R19.00] Start: 03-05-2022 Telephone encounter Julissa almeida APRN.FLOTATION TENDER Work Phone: Internal Medicine [facility] Comment on above: Results, Lab Start: 03-02-2022 End: 03-02-2022 Patient encounter procedure Julissa Ugarte APRN.FLOTATION TENDER Work Phone: Internal Medicine [place] Comment on above: Obstructive sleep ap lenin syndrome (Primary Dx); Special screening examination for viral disease; Screening for HIV (human immunodeficiency virus); Hypercholesteremia <130; Non morbid obesity due to excess calories; Iron deficiency anemia, unspecified iron deficiency anemia type; Recurrent major depressive disorder, in partial remission (HCC) Start: 12-20-2021 Refill Harjeet lafleur MD Work Phone: Internal Medicine [place] Comment on above: Refill Request Procedures Date Procedure Procedure Detail Performing Clinician Start: 05-22-[address] Harjeet Bernard MD Work Phone: Start: 05-22-2025 Serum inorganic phosphate measurement Dr. Harjeet Bernard MD Work Phone: Start: 05-20-2025 Urnls dip stick/tablet reagent auto microscopy Dr. Harjeet Bernard MD Work Phone: Start: 05-20-2025 Complete ultrasound of kidneys and bladder Dr. Harjeet Bernard MD Work Phone: Start: 05-20-[address] Harjeet Bernard MD Work Phone: Start: 05-20-2025 Serum inorganic phosphate measurement Dr. Harjeet Bernard MD Work Phone: Start: 04-12-[address] Harjeet [...] dip stick/tablet reagent auto microscopy Dr. Harjeet eBrnard MD Work Phone: Start: 11-27-2024 Complete ultrasound [...] 05-15-2024 Ct abdomen & pelvis w/contrast material Nuzhat Howie DO Work Phone: Start: 05-15-2024 Ct thorax w/contrast material Nuzhat Howie DO Work Phone: Start: 05-15-2024 Lipid 1996 panel - Serum or Plasma Ct Ws tr Start: 05-17-2023 Ct abdomen & pelvis w/contrast material Nuzhat Howie DO Work Phone: Start: 05-17-2023 Ct thorax w/contrast material Nuzhat Howie DO Work Phone: Start: 01-04-2023 Lipid 1996 panel - Serum or Plasma Stoma Therapy Work Phone: Start: 09-14-2022 XR ABSCESS DRAIN INJECTION Nuzhat Val benigno DO Work Phone: Start: 07-25-2022 BILIRUBIN TOTAL [...] Provider Start: 07-10-2022 XR ABSCESS DRAIN INJECTION Fany mcgowan MD Work Phone: Start: 04-26-2022 Esophagogastroduodenoscopy transoral diagnostic Priscila Clarke MD Work Phone: Start: 04-26-2022 Colonoscopy flx dx w/collj spec when pfrmd Priscila Clarke MD Work Phone: Start: 04-26-2022 Colonoscopy Priscila Clarke MD Work Phone: Start: 04-20-2022 Ct abdomen & pelvis w/contrast material Priscila Clarke MD Work Phone: Plan of Treatment Date Care Activity Detail Author Start: 12-12-2029 Lipid panel Lipid Screening [facility] Start: 05-15-2029 Lipid panel Lipid Screening [facility] Start: 05-14-2028 Diabetes Screening Diabetes Screening [facility] Start: 05-07-2028 Diabetes Screening Diabetes Screening [facility] Start: 04-16-2028 Diabetes Screening Diabetes Screening [facility] Start: 04-12-2028 Diabetes Screening Diabetes Screening [facility] Start: 03-29-2028 Diabetes Screening Diabetes Screening [facility] Start: 03-25-2028 Urine microalbumin profile [facility] Start: 03-22-2028 Diabetes Screening Diabetes Screening [facility] Start: 02-02-2028 Diabetes Screening Diabetes Screening [facility] Start: 01-26-2028 Diabetes Screening Diabetes Screening [facility] Start: 01-19-2028 Diabetes Screening Diabetes Screening [facility] Start: 01-12-2028 Diabetes Screening Diabetes Screening [facility] Start: 01-05-2028 Lipid 1996 panel - Serum or Plasma Lipid Screening [facility] Start: 01-05-2028 Lipid panel Lipid Screening [facility] Start: 01-05-2028 LIPID SCREEN LIPID SCREEN [facility] Start: 12-15-2027 Diabetes Screening Diabetes Screening [facility] Start: 12-13-2027 Diabetes Screening Diabetes Screening [facility] Start: 12-05-2027 Diabetes Screening Diabetes Screening [facility] Start: 05-15-2027 Diabetes Screening Diabetes Screening [facility] Start: 05-23-2026 End: 05-23-2026 Patient encounter procedure 05/23/2026 3:40 PM EDT Office Visit Internal Medicine [facility] [address] [place] [id number] Harjeet Bernard MD [address] [place] [id number] 6 month f/u Internal Medicine [facility] Comment on above: 6 month f/u Start: 05-17-2026 Annual PCP Team Chronic Disease Visit Annual PCP Team Chronic Disease Visit [facility] Start: 05-14-2026 Creatinine measurement Serum Creatinine [facility] Start: 05-07-2026 Creatinine measurement Serum Creatinine [facility] Start: 04-19-2026 Annual PCP Team Chronic Disease Visit Annual PCP Team Chronic Disease Visit [facility] Start: 04-16-2026 Complete blood count Hemoglobin/Hematocrit [facility] Start: 04-16-2026 Creatinine measurement Serum Creatinine [facility] Start: 04-12-2026 Creatinine measurement Serum Creatinine [facility] Start: 03-29-2026 Annual PCP Team Chronic Disease Visit Annual PCP Team Chronic Disease Visit [facility] Start: 01-04-2026 DIABETES SCREEN DIABETES SCREEN [facility] Start: 01-04-2026 Diabetes Screening Diabetes Screening [facility] Start: 12-12-2025 Complete blood count Hemoglobin/Hematocrit [facility] Start: 11-22-2025 End: 11-22-2025 Patient encounter procedure 11/22/2025 4:20 PM EST Office Visit Internal Medicine [facility] [address] [place] [address] Harjeet Bernard MD [address] [place] [id number] 6 month f/u Internal Medicine [facility] Comment on above: 6 month f/u Start: 07-28-2025 End: 07-28-2025 ambulatory 07/28/2025 11:00 AM [facility]fusion [facility] Hematology/Oncology [address] [place] [id number] 2ND Hematology/Oncolog y Comment on above: 2ND Start: 07-25-2025 DIABETES SCREEN DIABETES SCREEN [facility] Start: 07-16-2025 DIABETES SCREEN DIABETES SCREEN [facility] Start: 07-14-2025 End: 07-14-2025 ambulatory 07/14/2025 11:00 AM [facility] Infusion Center Hematology/Oncology [address] [place] [id number] 2ND Hematology/Oncolog y Comment on above: 2ND Start: 06-30-2025 End: 06-30-2025 ambulatory Hematology/Oncolog y Comment on above: 2ND Start: 06-28-2025 DIABETES SCREEN DIABETES SCREEN [facility] Start: 06-26-2025 DIABETES SCREEN DIABETES SCREEN [facility] Start: 06-21-2025 End: 06-21-2025 Patient encounter procedure 06/21/2025 4:30 PM EDT Office Visit Kidney Medicine [address] [place] [address] Ford Hutchins, THERAPIST RESPIRATORY.CNC SUPERVISOR [address] [place] [address] Return in about 2 months (around 06/14/2025). Kidney Medicine Comment on above: Return in about 2 months (around 06/14/20). Start: 06-16-2025 End: 06-16-2025 ambulatory 06/16/2025 11:00 AM EDT Infusion Center Hematology/Oncology [address] [place] [id number] 2ND Hematology/Oncolog y Comment on above: 2ND Start: 06-14-2025 DIABETES SCREEN DIABETES SCREEN [facility] Start: 06-07-2025 DIABETES SCREEN DIABETES SCREEN [facility] Start: 06-03-2025 End: 06-03-2025 ambulatory 06/03/2025 10:00 AM EDT Infusion Center Hematology/Oncology [address] [place] [address] 2ND Hematology/Oncolog y Comment on above: 2ND Start: 06-02-2025 End: 06-02-2025 ambulatory 06/02/2025 1:30 PM EDT Infusion Center Hematology/Oncology [address] [place] [address] 2ND Hematology/Oncolog y Comment on above: 2ND Start: 05-31-2025 Influenza vaccination [facility] Start: 05-30-2025 DIABETES SCREEN DIABETES SCREEN [facility] Start: 05-25-2025 Basic metabolic 2008 panel with ionized calcium - Serum or Plasma [facility] Start: 05-25-2025 CBC W Auto Differential panel - Blood [facility] Start: 05-24-2025 Basic metabolic 2008 panel with ionized calcium - Serum or Plasma [facility] Start: 05-24-2025 CBC W Auto Differential panel - Blood [facility] Start: 05-23-2025 Basic metabolic 2008 panel with ionized calcium - Serum or Plasma [facility] Start: 05-23-2025 CBC W Auto Differential panel - Blood [facility] Start: 05-23-2025 Serum inorganic phosphate measurement [facility] Start: 05-22-2025 Patient discharge [facility] Start: 05-22-2025 Basic metabolic 2007 panel with ionized calcium - Serum or Plasma [facility] Start: 05-22-2025 CBC W Auto Differential panel - Blood [facility] Start: 05-22-2025 [facility] Start: 05-21-2025 Basic metabolic 2008 panel with ionized calcium - Serum or Plasma [facility] Start: 05-21-2025 CBC W Auto Differential panel - Blood [facility] Start: 05-21-2025 Magnesium measurement [facility] Start: 05-21-2025 Serum inorganic phosphate measurement [facility] Start: 05-20-2025 Following clinical pathway protocol [facility] Start: 05-20-2025 Ambulation without limitation [facility] Start: 05-20-2025 Assessment of risk of venous thromboembolism [facility] Start: 05-20-2025 Inhalation therapy procedure [facility] Start: 05-20-2025 Insertion of catheter into peripheral vein [facility] Start: 05-20-2025 Measuring intake and output [facility] Start: 05-20-2025 Providing care according to standard [facility] Start: 05-20-2025 Referral to system designer [facility] Start: 05-20-2025 End: 05-21-2025 [facility] Start: 05-20-2025 Verification routine [facility] Start: 05-20-2025 Admission procedure [facility] Start: 05-20-2025 Patient referral to dietitian [facility] Start: 05-19-2025 End: 05-19-2025 ambulatory 05/19/2025 1:30 PM EDT Infusion Center Hematology/Oncology [address] [place] [id number] 2ND Hematology/Oncolog y Comment on above: 2ND Start: 05-17-2025 End: 05-17-2025 Patient encounter procedure 05/17/2025 3:40 PM EDT Office Visit Internal Medicine [address] [place] [address] Harjeet Bernard MD [address] [facility] [place] [address] 6 month follow up Internal Medicine [facility] Comment on above: 6 month follow up Start: 04-30-2025 End: 04-30-2025 Patient encounter procedure 04/30/2025 11:20 AM EDT Office Visit Cardiology [address] [place] [address] Bilateral lower extremity edema [R60.0]; Elevated brain natriuretic peptide (BNP) level [R79.89] Cardiology Comment on above: Bilateral lower extremity edema [R60.0]; Elevated brain natriuretic peptide (BNP) level [R79.89] Start: 04-19-2025 DIABETES SCREEN DIABETES SCREEN [facility] Start: 04-19-2025 End: 04-19-2025 Patient encounter procedure 04/19/2025 10:20 AM EDT Office Visit [facility] Medicine [facility] [address] [facility] [place] [address] Harjeet Bernard MD [address] [place] [address] follow up [facility] ER for cellulitis Internal Medicine [facility] Comment on above: follow up [facility] ER for cellulitis Start: 04-15-2025 End: 04-15-2025 Patient encounter procedure 04/15/2025 1:00 PM EDT Appointment Radiology [address] [place] [address] US KIDNEY/BLADDER Radiology Comment on above: US KIDNEY/BLADDER Start: 04-13-2025 End: 07-13-2025 Albumin [Mass/volume] in Serum or Plasma ALBUMIN Lab Routine Bilateral leg edema Expected: 04/13/2025, Expires: 07/13/2025 [facility] Comment on above: Expected: 04/13/2025, Expires: Start: 04-13-2025 End: 07-13-2025 Cortisol [Mass/volume] in Serum or Plasma CORTISOL, SERUM Lab Routine Hyponatremia Expected: 04/13/2025, Expires: 07/13/2025 [facility] Comment on above: Expected: 04/13/2025, Expires: Start: 04-13-2025 End: 04-13-2026 Hematocrit [Volume Fraction] of Blood HEMATOCRIT Lab Routine Anemia in stage 4 chronic kidney disease (HCC) Expected: 04/13/2025, Expires: 04/13/2026 [facility] Comment on above: Expected: 04/13/2025, Expires: Start: 04-13-2025 End: 04-13-2026 Hemoglobin [Mass/volume] in Blood HEMOGLOBIN Lab Routine Anemia in stage 4 chronic kidney disease (HCC) Expected: 04/13/2025, Expires: 04/13/2026 [facility] Comment on above: Expected: 04/13/2025, Expires: Start: 04-13-2025 End: 07-13-2025 Natriuretic peptide.B prohormone N-Terminal [Mass/volume] in Serum or Plasma NT PRO BNP Lab Routine Bilateral leg edema Expected: 04/13/2025, Expires: 07/13/2025 [facility] Comment on above: Expected: 04/13/2025, Expires: Start: 04-13-2025 End: 07-13-2025 Osmolality of Serum or Plasma OSMOLALITY Lab Routine Hyponatremia Expected: 04/13/2025, Expires: 07/13/2025 [facility] Comment on above: Expected: 04/13/2025, Expires: Start: 04-13-2025 End: 07-13-2025 Osmolality of Urine OSMOLALITY URINE Lab Routine Hyponatremia Expected: 04/13/2025, Expires: 07/13/2025 [facility] Comment on above: Expected: 04/13/2025, Expires: Start: 04-13-2025 End: 04-13-2026 Parathyrin.intact [Mass/volume] in Serum or Plasma PTH INTACT Lab Routine Chronic kidney disease-mineral and bone disorder Expected: 04/13/2025, Expires: 04/13/2026 [facility] Comment on above: Expected: 04/13/2025, Expires: Start: 04-13-2025 End: 04-13-2026 Protein/Creatinine [Mass Ratio] in Urine PROTEIN / CREATININE RATIO Lab Routine Acute renal failure, unspecified acute renal failure type Expected: 04/13/2025, Expires: 04/13/2026 [facility] Comment on above: Expected: 04/13/2025, Expires: Start: 04-13-2025 End: 04-13-2026 Renal function 2000 panel - Serum or Plasma RENAL FUNCTION PANEL Lab Routine Acute renal failure, unspecified acute renal failure type CKD (chronic kidney disease) stage 4, GFR 15-29 ml/min ([facility]) Hypokalemia Hyponatremia Metabolic acidosis Ileostomy present ([facility]) Chronic kidney disease-mineral and bone disorder Expected: 04/13/2025, Expires: 04/13/2026 [facility] Work Phone: Comment on above: Expected: 04/13/2025, Expires: Start: 04-13-2025 End: 07-13-2025 Sodium [Moles/volume] in Urine collected for unspecified duration SODIUM RANDOM URINE Lab Routine Hyponatremia Expected: 04/13/2025, Expires: 07/13/2025 [facility] Comment on above: Expected: 04/13/2025, Expires: Start: 04-13-2025 End: 07-13-2025 Thyrotropin [Units/volume] in Serum or Plasma THYROID STIMULATING HORMONE Lab Routine Hyponatremia Expected: 04/13/2025, Expires: 07/13/2025 [facility] Comment on above: Expected: 04/13/2025, Expires: Start: 04-13-2025 End: 04-13-2026 Urate [Mass/volume] in Serum or Plasma URIC ACID Lab Routine Acute renal failure, unspecified acute renal failure type Expected: 04/13/2025, Expires: 04/13/2026 [facility] Comment on above: Expected: 04/13/2025, Expires: Start: 04-13-2025 End: 04-13-2026 Urinalysis complete panel - Urine URINALYSIS, WITH MICROSCOPIC Lab Routine Acute renal failure, unspecified acute renal failure type CKD (chronic kidney disease) stage 4, GFR 15-29 ml/min ([facility]) Expected: 04/13/2025, Expires: 04/13/2026 [facility] Comment on above: Expected: 04/13/2025, Expires: Start: 04-13-2025 End: 04-13-2025 Patient encounter procedure 04/13/2025 1:00 PM EDT Office Visit Kidney Medicine [address] [place] [address] Nelly Xiao I, MD [address] [place] 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) [Z93.2] Kidney Medicine Comment on above: 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) [Z93.2] Start: 04-12-2025 [facility] Start: 01-15-2025 Serum inorganic phosphate measurement [facility] Start: 01-15-2025 Hospital admission, emergency, from emergency room, medical nature [facility] Start: 12-28-2024 End: 12-28-2024 Admission to establishment 12/28/2024 2:45 PM EDT [facility] [address] [address] Nicolasa Denise DO [address] [place], [place] [id number] Discuss recent admission/ hydration Colorectal Surgery Comment on above: Discuss recent admission/ hydration Start: 12-21-2024 End: 12-21-2024 Patient encounter procedure 12/21/2024 2:40 PM EDT Office Visit Internal Medicine [address] [address] Harjeet Bernard MD [address] [place], [place] [address] 6 month follow up Internal Medicine [place] Comment on above: 6 month follow up Start: 12-16-2024 Patient discharge [facility] Start: 12-15-2024 Following clinical pathway protocol [facility] Start: 12-15-2024 Ambulation without limitation [facility] Start: 12-15-2024 Assessment of risk of venous thromboembolism [facility] Start: 12-15-2024 Insertion of catheter into peripheral vein [facility] Start: 12-15-2024 Providing care according to standard [facility] Start: 12-15-2024 [facility] Start: 12-15-2024 Verification routine [facility] Start: 12-15-2024 Admission procedure [facility] Start: 12-15-2024 Hospital admission, emergency, from emergency room, medical nature [facility] Start: 12-14-2024 End: 03-15-2025 Basic metabolic 2000 panel - Serum or Plasma BASIC METABOLIC PANEL Lab Routine Hypokalemia [place] (acute kidney injury) (HCC) Nausea vomiting and diarrhea Expected: 12/14/2024, Expires: 03/15/2025 [facility] Work Phone: Comment on above: Expected: 12/14/2024, Expires: Start: 12-04-2024 End: 12-04-2024 Patient encounter procedure 12/04/2024 11:00 AM EST Office Visit Internal Medicine [place] [address] [place] [address] Julissa Ugarte APRN.FLOTATION TENDER [address] [place] [address] [facility] Follow Up D/C 11/29/2024 Dehydration Internal Medicine [facility] Comment on above: [facility] Follow Up D/C 11/29/2024 Dehydration Start: 11-29-2024 Patient discharge [facility] Start: 11-28-2024 Following clinical pathway protocol [facility] Start: 11-28-2024 [facility] Start: 11-27-2024 Admission procedure [facility] Start: 11-26-2024 Ambulation without limitation [facility] Start: 11-26-2024 Assessment of risk of venous thromboembolism [facility] Start: 11-26-2024 Insertion of catheter into peripheral vein [facility] Start: 11-26-2024 Providing care according to standard [facility] Start: 11-26-2024 [facility] Start: 11-26-2024 Admission procedure [facility] Start: 11-26-2024 Patient referral to dietitian [facility] Start: 10-19-2024 End: 10-19-2024 Patient encounter procedure 10/19/2024 3:40 PM EST Office Visit Internal Medicine [place] [address] [place] [address] Harjeet Bernard MD [address] [place] [address] 6 month follow up Internal Medicine [place] Comment on above: 6 month follow up Start: 10-08-2024 Covid-19 Vaccine () Covid-19 Vaccine () [facility] Comment on above: Postponed from 05/31/2023 (Declined at t his time) Start: 07-13-2024 End: 07-13-2024 Follow-up encounter 07/13/2024 1:00 PM EDT [facility] [address] [id number] Nicolasa Denise DO [address] [place] [address] 4 week follow up Colorectal Surgery Comment on above: 4 week follow up Start: 07-04-2024 DIABETES SCREEN DIABETES SCREEN [facility] Start: 06-15-2024 End: 06-15-2024 Patient encounter procedure 06/15/2024 10:20 AM EDT Office Visit Colorectal Surgery [address] [address] Nicolasa Denise DO [address] [place] [address] Yealy follow up Colorectal Surgery Comment on above: Yealy follow up Start: 06-15-2024 End: 06-15-2024 Nursing evaluation of patient and report 06/15/2024 10:15 AM EDT Nurse Visit Colorectal Surgery [address] [address] Therapy, [place] [address] [place] [address] Yearly follow up Colorectal Surgery Comment on above: Yearly follow up Start: 05-31-2024 Covid-19 Vaccine ( season) Covid-19 Vaccine () [facility] Start: 05-31-2024 Covid-19 Vaccine () Covid-19 Vaccine () [facility] Start: 05-31-2024 Influenza vaccination [facility] Start: 05-15-2024 End: 08-14-2024 Hemoglobin A1c in Blood [facility] Comment on above: Expected: 05/15/2024, Expires: Start: 05-15-2024 End: 05-15-2024 Patient encounter procedure Internal Medicine [facility] Comment on above: [address] ABD/PEL W IVCON, CT CHEST W IVCON Start: 04-13-2024 End: 04-13-2024 Patient encounter procedure 04/13/2024 4:40 PM EDT Office Visit Internal Medicine [place] [address] [place], [place] [id number] Harjeet Bernard MD [address] [place] [address] 6 month follow up Internal Medicine [facility] Comment on above: 6 month follow up Start: 03-29-2024 Influenza vaccination Influenza Vaccine (#1) [facility] Comment on above: Postponed from 05/31/2023 (Declined at t his time) Start: 10-15-2023 COVID-19 VACCINE (3 - Booster for Moderna series) COVID-19 VACCINE (3 - Booster for Moderna series) [facility] Comment on above: Postponed from 03/16/2021 (Declined at t his time) Start: 10-15-2023 COVID-19 VACCINE (3 - Moderna series) COVID-19 VACCINE (3 - Moderna series) [facility] Comment on above: Postponed from 03/16/2021 (Declined at t his time) Start: 10-15-2023 HEPATITIS B (1 of 3 - 3-dose series) HEPATITIS B (1 of 3 - 3-dose series) [facility] Comment on above: Postponed from 1972 (Declined at t his time) Start: 10-15-2023 Hepatitis B Vaccine (1 of 3 - 3-dose series) Hepatitis B Vaccine (1 of 3 - 3-dose series) [facility] Comment on above: Postponed from 1972 (Declined at t his time) Start: 10-15-2023 Meningococcal B Vaccine: Consider Based On Risk (2 of 4 - Increased Risk Bexsero 2-dose series) Meningococcal B Vaccine: Consider Based On Risk (2 of 4 - Increased Risk Bexsero 2-dose series) [facility] Comment on above: Postponed from 07/17/2022 (Declined at t his time) Start: 10-15-2023 MENINGOCOCCAL B: Consider based on risk (2 of 4 - Increased Risk Bexsero 2-dose series) MENINGOCOCCAL B: Consider based on risk (2 of 4 - Increased Risk Bexsero 2-dose series) [facility] Comment on above: Postponed from 07/17/2022 (Declined at t his time) Start: 10-15-2023 MENINGOCOCCAL CONJUGATE (2 - Risk 2-dose series) MENINGOCOCCAL CONJUGATE (2 - Risk 2-dose series) [facility] Comment on above: Postponed from 08/13/2022 (Declined at t his time) Start: 10-15-2023 Meningococcal Conjugate Vaccine (2 - Risk 2-dose series) Meningococcal Conjugate Vaccine (2 - Risk 2-dose series) [facility] Comment on above: Postponed from 08/13/2022 (Declined at t his time) Start: 10-15-2023 SHINGRIX VACCINE (1 of 2) SHINGRIX VACCINE (1 of 2) [facility] Comment on above: Postponed from 1991 (Declined at t his time) Postponed from 04/24 (Declined at this time) Start: 10-11-2023 LIPID SCREEN LIPID SCREEN [facility] Start: 05-31-2023 End: 07-31-2023 Cancer Ag 125 [Units/volume] in Serum or Plasma CA 125 BLD Lab 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 Expected: 05/31/2023, Expires: 07/31/2023 [facility] Work Phone: Comment on above: Expected: 05/31/2023, Expires: Start: 05-31-2023 End: 07-31-2023 Cancer Ag 19-9 [Units/volume] in Serum or Plasma CA 19-9 BLD Lab 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 Expected: 05/31/2023, Expires: 07/31/2023 [facility] Work Phone: Comment on above: Expected: 05/31/2023, Expires: 3 Start: 05-31-2023 End: 07-31-2023 Carcinoembryonic Ag [Mass/volume] in Serum or Plasma CEA BLD Lab 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 Expected: 05/31/2023, Expires: 07/31/2023 [facility] Work Phone: Comment on above: Expected: 05/31/2023, Expires: 3 Start: 05-31-2023 Covid-19 Vaccine () Covid-19 Vaccine () [facility] Start: 05-31-2023 Influenza vaccination [facility] Start: 04-26-2023 Colonoscopy COLONOSCOPY [facility] Start: 04-26-2023 COLORECTAL CANCER SCREENING COLORECTAL CANCER SCREENING [facility] Start: 04-26-2023 Screening for malignant neoplasm of colon [facility] Start: 03-29-2023 Influenza vaccination INFLUENZA (#1) [facility] Comment on above: Postponed from 05/31/2022 (Declined at t his time) Start: 03-02-2023 HEPATITIS C SCREENING HEPATITIS C SCREENING [facility] Comment on above: Postponed from 1990 (Declined at t his time) Start: 03-02-2023 HIV SCREENING HIV SCREENING [facility] Comment on above: Postponed from 1990 (Declined at t his time) Start: 10-15-2022 End: 12-15-2022 CBC panel - Blood by Automated count CBC Lab Routine Encounter for long-term current use of medication Iron deficiency anemia, unspecified iron deficiency anemia type Expected: 10/15/2022, Expires: 12/15/2022 [facility] Work Phone: Comment on above: Expected: 10/15/2022, Expires: 3 Start: 10-15-2022 End: 12-15-2022 Comprehensive metabolic 2000 panel - Serum or Plasma COMP METABOLIC PANEL Lab Routine Encounter for long-term current use of medication Expected: 10/15/2022, Expires: 12/15/2022 [facility] Work Phone: Comment on above: Expected: 10/15/2022, Expires: Start: 08-30-2022 End: 03-01-2023 CBC W Auto Differential panel - Blood CBC + DIFF Lab Routine Iron deficiency anemia, unspecified iron deficiency anemia type Recurrent major depressive disorder, in partial remission (HCC) Expected: 08/30/2022 (Approximate), Expires: 03/01/2023 [facility] Work Phone: Comment on above: Expected: 08/30/2022 (Approximate), Expi res: 03/01/2023 Start: 08-30-2022 End: 03-01-2023 Comprehensive metabolic 2000 panel - Serum or Plasma COMP METABOLIC PANEL Lab Routine Hypercholesteremia <130 Recurrent major depressive disorder, in partial remission (HCC) Expected: 08/30/2022 (Approximate), Expires: 03/01/2023 [facility] Work Phone: Comment on above: Expected: 08/30/2022 (Approximate), Expi res: 03/01/2023 Start: 08-30-2022 End: 03-01-2023 LIPID PANEL BASIC LIPID PANEL BASIC Lab Routine Hypercholesteremia <130 Expected: 08/30/2022 (Approximate), Expires: 03/01/2023 [facility] Work Phone: Comment on above: Expected: 08/30/2022 (Approximate), Expi res: 03/01/2023 Start: 08-13-2022 MENINGOCOCCAL CONJUGATE (2 - Risk 2-dose series) MENINGOCOCCAL CONJUGATE (2 - Risk 2-dose series) [facility] Start: 08-13-2022 Meningococcal Conjugate Vaccine (2 - Risk 2-dose series) Meningococcal Conjugate Vaccine (2 - Risk 2-dose series) [facility] Start: 08-12-2022 COLORECTAL CANCER SCREENING COLORECTAL CANCER SCREENING [facility] Start: 08-12-2022 FECAL OCCULT BLOOD FECAL OCCULT BLOOD [facility] Start: 08-12-2022 Screening for malignant neoplasm of colon Fecal Occult Blood [facility] Start: 07-19-2022 End: 06-07-2023 ERCP ERCP Endoscopy Routine Bile leak Expected: 07/19/2022, Expires: 06/07/2023 [facility] Work Phone: Comment on above: Expected: 07/19/2022, Expires: Start: 07-17-2022 Meningococcal B Vaccine (2 of 4 - Increased Risk Bexsero 3-dose series) Meningococcal B Vaccine (2 of 4 - Increased Risk Bexsero 3-dose series) [facility] Start: 07-17-2022 Meningococcal B Vaccine (2 of 5 - Increased Risk Bexsero 3-dose series) Meningococcal B Vaccine (2 of 5 - Increased Risk Bexsero 3-dose series) [facility] Start: 07-17-2022 Meningococcal B Vaccine: Consider Based On Risk (2 of 4 - Increased Risk Bexsero 2-dose series) Meningococcal B Vaccine: Consider Based On Risk (2 of 4 - Increased Risk Bexsero 2-dose series) [facility] Start: 07-17-2022 MENINGOCOCCAL B: Consider based on risk (2 of 4 - Increased Risk Bexsero 2-dose series) MENINGOCOCCAL B: Consider based on risk (2 of 4 - Increased Risk Bexsero 2-dose series) [facility] Start: 07-04-2022 COVID-19 VACCINE (#1) COVID-19 VACCINE (#1) [facility] Comment on above: Postponed from 1977 (Declined at t his time) Postponed from 10/25 (Declined at this time) Start: 07-04-2022 COVID-19 VACCINE (1) COVID-19 VACCINE (1) [facility] Comment on above: Postponed from 1977 (Declined at t his time) Start: 07-04-2022 COVID-19 VACCINE (3 - Booster for Moderna series) COVID-19 VACCINE (3 - Booster for Moderna series) [facility] Comment on above: Postponed from 03/16/2021 (Declined at t his time) Start: 05-31-2022 Influenza vaccination [facility] Start: 05-11-2022 End: 07-11-2022 Comprehensive metabolic 2000 panel - Serum or Plasma [facility] Work Phone: Comment on above: Expected: 05/11/2022, Expires: 2 Start: 05-11-2022 End: 07-11-2022 CONFIRM BLOOD TYPE [facility] Work Phone: Comment on above: Expected: 05/11/2022, Expires: 2 Start: 05-11-2022 End: 07-11-2022 TYPE AND SCREEN,30 DAY [facility] Work Phone: Comment on above: Expected: 05/11/2022, Expires: 2 Start: 05-03-2022 End: 07-03-2022 Transferrin receptor.soluble [Mass/volume] in Serum or Plasma [facility] Work Phone: Comment on above: Expected: 05/03/2022, Expires: 2 Start: 2022 SHINGRIX VACCINE (1 of 2) SHINGRIX VACCINE (1 of 2) [facility] Start: 04-23-2022 End: 06-23-2022 CBC W Auto Differential panel - Blood CBC + DIFF Lab Routine Omental mass Expected: 04/23/2022, Expires: 06/23/2022 [facility] Work Phone: Comment on above: Expected: 04/23/2022, Expires: 2 Start: 03-29-2022 Influenza vaccination INFLUENZA (#1) [facility] Comment on above: Postponed from 05/31/2021 (Declined at t his time) Start: 12-21-2021 HEPATITIS C SCREENING HEPATITIS C SCREENING [facility] Comment on above: Postponed from 1990 (Declined at t his time) Start: 12-21-2021 HIV SCREENING HIV SCREENING [facility] Comment on above: Postponed from 1990 (Declined at t his time) Start: 03-16-2021 COVID-19 VACCINE (3 - Booster for Moderna series) COVID-19 VACCINE (3 - Booster for Moderna series) [facility] Start: 2017 COLOGUARD (FIT-DNA) COLOGUARD (FIT-DNA) [facility] Start: 2017 Colonoscopy COLONOSCOPY [facility] Start: [address] COLONOGRAPHY [facility] Start: 2017 Screening for malignant neoplasm of colon [facility] Start: 2017 SIGMOIDOSCOPY SIGMOIDOSCOPY [facility] Start: 1991 Hepatitis B Vaccine (1 of 3 - 19+ 3-dose series) Hepatitis B Vaccine (1 of 3 - 19+ 3-dose series) [facility] Start: 1991 SHINGRIX VACCINE (1 of 2) SHINGRIX VACCINE (1 of 2) [facility] Start: 1990 HEPATITIS C SCREENING HEPATITIS C SCREENING [facility] Start: 1990 Hepatitis C screening Hepatitis C Screening [facility] Start: 1990 HIV SCREENING HIV SCREENING [facility] Start: 1990 HIV screening HIV Screening [facility] Start: 1978 PNEUMOCOCCAL (1 - PCV) PNEUMOCOCCAL (1 - PCV) [facility] Start: 1972 HEPATITIS B (1 of 3 - 3-dose series) HEPATITIS B (1 of 3 - 3-dose series) [facility] Start: 1972 Hepatitis B Vaccine (1 of 3 - 3-dose series) Hepatitis B Vaccine (1 of 3 - 3-dose series) [facility] Anion gap in Serum o r Plasma [facility] Anion gap in Serum o r Plasma [facility] Anion gap in Serum o r Plasma [facility] End: 12-21-2025 Basic metabolic 2000 panel - Serum or Plasma BASIC METABOLIC PANEL Lab Routine [place] (acute kidney injury) (HCC) 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) Once per week for 30 Occurrences starting 12/21/2024 until 12/21/2025 [facility] Work Phone: Comment on above: Once per week for 30 Occurrences startin g 12/21/2024 until 12/21/2025 Basic metabolic 2000 panel - Serum or Plasma BASIC METABOLIC PANEL Lab Routine [place] (acute kidney injury) (HCC) 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) 12/21/2024 4:47 PM EDT [facility] End: 04-13-2026 Basic metabolic 2000 panel - Serum or Plasma BASIC METABOLIC PANEL Lab Routine Acute renal failure, unspecified acute renal failure type Every other week for 3 Occurrences starting 04/13/2025 until 04/13/2026 [facility] Comment on above: Every other week for 3 Occurrences start ing 04/13/2025 until 04/13/2026 BUN/Creatinine ratio [facility] BUN/Creatinine ratio [facility] BUN/Creatinine ratio [facility] Calcium [Mass/volume ] in Serum or Plasma [facility] Calcium [Mass/volume ] in Serum or Plasma [facility] Calcium [Mass/volume ] in Serum or Plasma [facility] Carbon dioxide, tota l [Moles/volume] in Central venous blood [facility] Carbon dioxide, tota l [Moles/volume] in Central venous blood [facility] Carbon dioxide, tota l [Moles/volume] in Central venous blood [facility] End: 05-15-2025 CBC panel - Blood by Automated count COMPLETE BLOOD COUNT Lab Routine Encounter for long-term current use of medication Every 6 months for 60 Occurrences starting 05/15/2024 until 05/15/2025 [facility] Comment on above: Every 6 months for 60 Occurrences starti ng 05/15/2024 until 05/15/2025 CBC panel - Blood by Automated count COMPLETE BLOOD COUNT Lab Routine Encounter for long-term current use of medication 05/15/2024 12:24 PM EDT [facility] End: 05-15-2025 Comprehensive metabolic 2000 panel - Serum or Plasma COMPREHENSIVE METABOLIC PANEL Lab Routine Encounter for long-term current use of medication Elevated glucose Every 6 months for 60 Occurrences starting 05/15/2024 until 05/15/2025 [facility] Work Phone: Comment on above: Every 6 months for 60 Occurrences starti ng 05/15/2024 until 05/15/2025 Comprehensive metabo lic 2000 panel - Serum or Plasma COMPREHENSIVE METABOLIC PANEL Lab Routine Encounter for long-term current use of medication Elevated glucose 05/15/2024 12:24 PM EDT [facility] Creatinine [Mass/vol ume] in Serum or Plasma [facility] Creatinine [Mass/vol ume] in Serum or Plasma [facility] Creatinine [Mass/vol ume] in Serum or Plasma [facility] End: 02-07-2024 Ct abdomen & pelvis w/contrast material CT ABD/PEL W IVCON Radiology Routine Intra-abdominal and pelvic swelling, mass and lump, unspecified site 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 Occurrences starting 01/08/2023 until 02/07/2024 [facility] Work Phone: Comment on above: 1 Occurrences starting 01/08/2023 until 02/07/2024 End: 02-07-2024 CT CHEST W IVCON CT CHEST W IVCON Radiology Routine Intra-abdominal and pelvic swelling, mass and lump, unspecified site 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 Occurrences starting 01/08/2023 until 02/07/2024 [facility] Work Phone: Comment on above: 1 Occurrences starting 01/08/2023 until 02/07/2024 End: 05-04-2023 ECG COMPLETE ECG COMPLETE ECG 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 Occurrences starting 05/11/2022 until 05/04/2023 [facility] Work Phone: Comment on above: 1 Occurrences starting 05/11/2022 until 05/04/2023 End: 04-19-2026 Echocardiography ECHO Cardiology Routine Bilateral lower extremity edema Elevated brain natriuretic peptide (BNP) level 1 Occurrences starting 04/19/2025 until 04/19/2026 [facility] Work Phone: Comment on above: 1 Occurrences starting 04/19/2025 until 04/19/2026 Erythrocyte mean corpuscular volume determination [facility] Erythrocyte mean corpuscular volume determination [facility] Erythrocyte mean corpuscular volume determination [facility] Glucose [Mass/volume ] in Serum or Plasma [facility] Glucose [Mass/volume ] in Serum or Plasma [facility] Glucose [Mass/volume ] in Serum or Plasma [facility] Hematocrit [Volume Fraction] of Blood [facility] Hematocrit [Volume Fraction] of Blood [facility] Hematocrit [Volume Fraction] of Blood [facility] Hemoglobin [Mass/vol ume] in Blood [facility] Hemoglobin [Mass/vol ume] in Blood [facility] Hemoglobin [Mass/vol ume] in Blood [facility] Leukocytes [#/volume ] in Blood [facility] Leukocytes [#/volume ] in Blood [facility] Leukocytes [#/volume ] in Blood [facility] End: 05-15-2025 Lipid 1996 panel - Serum or Plasma LIPID PANEL BASIC Lab Routine Hypercholesteremia <130 Every 6 months for 60 Occurrences starting 05/15/2024 until 05/15/2025 [facility] Comment on above: Every 6 months for 60 Occurrences starti ng 05/15/2024 until 05/15/2025 Lipid 1995 panel - S yasmeen or Plasma LIPID PANEL BASIC Lab Routine Hypercholesteremia <130 05/15/2024 12:24 PM EDT [facility] Magnesium measurement [facility] Magnesium measurement [facility] Mean corpuscular hemoglobin concentration determination [facility] Mean corpuscular hemoglobin concentration determination [facility] Mean corpuscular hemoglobin concentration determination [facility] Mean corpuscular hemoglobin determination [facility] Mean corpuscular hemoglobin determination [facility] Mean corpuscular hemoglobin determination [facility] Measurement of renal function [facility] Measurement of renal function [facility] Measurement of renal function [facility] Neutrophil count [facility] Neutrophil count [facility] Neutrophil count [facility] Neutrophil percent differential count [facility] Neutrophil percent differential count [facility] Neutrophil percent differential count [facility] Patient Education [facility] Work Phone: Patient referral [facility] Work Phone: Platelets [#/volume] in Blood [facility] Platelets [#/volume] in Blood [facility] Platelets [#/volume] in Blood [facility] Potassium measurement [facility] Potassium measurement [facility] Potassium measurement [facility] Red blood cell count [facility] Red blood cell count [facility] Red blood cell count [facility] Red cell distributio n width determination [facility] Red cell distributio n width determination [facility] Red cell distributio n width determination [facility] REFER FOR ADMIT INTERVIEW REFER FOR ADMIT INTERVIEW Procedures 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 Ordered: 05/11/2022 [facility] Work Phone: Comment on above: Ordered: 05/11/2022 Serum chloride measurement [facility] Serum chloride measurement [facility] Serum chloride measurement [facility] Sodium measurement [facility] Sodium measurement [facility] Sodium measurement [facility] Urea nitrogen [Mass/volume] in Serum or Plasma [facility] Urea nitrogen [Mass/volume] in Serum or Plasma [facility] Urea nitrogen [Mass/volume] in Serum or Plasma [facility] End: 05-13-2026 US Kidney - bilateral and Urinary bladder US KIDNEY/BLADDER Radiology Routine Acute renal failure, unspecified acute renal failure type 1 Occurrences starting 04/13/2025 until 05/13/2026 [facility] Comment on above: 1 Occurrences starting 04/13/2025 until 05/13/2026 US Kidney - bilatera l and Urinary bladder US KIDNEY/BLADDER Radiology Routine Acute renal failure, unspecified acute renal failure type 04/15/2025 1:34 PM EDT [facility] Work Phone: End: 09-26-2023 XR ABSCESS DRAIN INJECTION XR ABSCESS DRAIN INJECTION Radiology 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 Harjeet Bernard MD Work Phone: [facility] 06-19-2022 meningococcal B vacc ine, recombinant, OMV, adjuvanted Silvana Herrera MD Work Phone: [facility] 06-18-2022 meningococcal (MenACWY-TT) vaccine, quadrivalent (MENQUADFI) Silvana Herrera MD Work Phone: [facility] 06-18-2022 meningococcal polysaccharide (groups A, C, Y and W-135) diphtheria toxoid conjugate vaccine (MCV4P) Dr. Harjeet Bernard MD Work Phone: [facility] 06-18-2022 pneumococcal (PCV20) vaccine, 20 valent (PREVNAR 20) Silvana Herrera MD Work Phone: [facility] 01-19-2021 Covid (Moderna) Dr. Harjeet lyons MD Work Phone: [facility] 12-22-2020 Covid (Moderna) Dr. Harjeet lyons MD Work Phone: [facility] 10-18-2018 influenza virus vacc ine, unspecified formulation [facility] Work Phone: [facility] 03-25-2018 tetanus toxoid, redu eulalia diphtheria toxoid, and acellular pertussis vaccine, adsorbed Harjeet Bernard MD Work Phone: [facility] Payers Date Payer Category Payer Self-pay 2024 [facility] BLUE CARD PPO OOS [id number] 2015 Unknown [employer] BLUE CARD PPO OOS [id number] 2015-Present [phone] [address] [place] [address] PPO [id number] 2015 Unknown [employer] BLUE CARD PPO OOS [id number] 2015-Present [phone] [address] [place] [address] PPO [id number] 2003 Unknown [id number] 2003 Unknown [employer] [id number] 2003 Unknown [id number] Unknown [id number] Unknown [id number] Unknown [id number] Unknown [id number] Unknown [id number]. 2.462 Unknown [id number]. [id number] Unknown [id number]. 2.462 Unknown [id number]. 2.462 Unknown [id number]. 2.462 Unknown [id number]. 2.462 Unknown [id number]. 2.462 Unknown [id number]. 2.462 Unknown [id number]. 2.462 Unknown [id number]. 2.462 Unknown [id number]. 2.462 Social History Date Type Detail Facility Start: 10-16-2011 End: 05-20-2025 Tobacco smoking status NHIS Never smoked tobacco [facility] Start: 07-04-2021 End: 03-02-2022 Alcohol intake Not Asked [facility] Start: 1970 Sex Assigned At Not on file [facility] Start: 02-20-2022 End: 08-27-2022 Exposure to SARS-CoV-2 (event) Not sure [facility] Work Phone: Start: 04-19-2022 End: 05-17-2025 Alcohol intake Lifetime non-drinker (finding) [facility] Start: 04-19-2022 History SDOH Alcohol Frequency 1 [facility] Start: 10-16-2011 End: 07-09-2022 Tobacco use and exposure Smokeless tobacco non-user [facility] Start: 1970 Sex Assigned At Male [facility] Start: 04-05-2023 End: 11-10-2023 History of Social function [facility] Start: 04-05-2023 End: 11-10-2023 Tobacco use panel [facility] Start: 08-31-2012 National Score (1-10 0), lower number is lower risk 66 [facility] Are you now , , , , never or living with a partner? Living with partner [facility] Do you feel stress - tense, restless, nervous, or anxious, or unable to sleep at night because your mind is troubled all the time - these days [OSQ] To some extent [facility] Start: 12-15-2024 End: 01-15-2025 Sex Male (finding) [facility] Medical Equipment Procedure Code Equipment Code Equipment Origin al Text Equipment Identifier Dates Stent Zimmon 5fr Pigtail Curve Blue Polyethylene 7cm Pancreatic Tapered Tip - [id number] Start: 06-07-2022 Stent 7fr Duoden al Bend Plastic 10cm Biliary Temporary Rapid Exchange - [id number] Start: 06-07-2022 Goals Date Patient Goal Desired Activity /State Functional Status Date Assessment Result Facility 05-22-2025 Functional status Ambulates [facility] Work Phone: 12-16-2024 Functional status Up ad ava;Bath room Privilege [facility] Work Phone: 11-29-2024 Functional status Ambulates;Up ad ava [facility] Work Phone: 01-25-2014 Are you deaf, or do you have serious difficulty hearing No 01/25/2014 5:44 PM Amanda Bird RN No [facility] 01-25-2014 Are you blind, or do you have serious difficulty seeing, even when wearing glasses No 01/25/2014 5:44 PM Amanda Bird RN No [facility] 01-25-2014 Do you have serious difficulty walking or climbing stairs No 01/25/2014 5:44 PM Amanda Bird RN No [facility] 01-25-2014 Do you have difficul ty dressing or bathing No 01/25/2014 5:44 PM Amanda Bird RN No [facility] 01-25-2014 Because of a physica l, mental, or emotional condition, do you have difficulty doing errands alone such as visiting a physician's office or shopping No 01/25/2014 5:44 PM Amanda Bird RN No [facility] Mental Status Date Assessment Result Facility 05-22-2025 Cognitive function Voice/Name [facility] Work Phone: 05-20-2025 Cognitive function Level Of Cons ciousness Awake;Alert;Appropriate;Fol lows Commands [facility] Work Phone: 04-12-2025 Cognitive function Level Of Cons ciousness Awake;Alert;Appropriate;Fol lows Commands [facility] Work Phone: 03-28-2025 Cognitive function Level Of Cons ciousness Awake;Alert;Appropriate;Fol lows Commands [facility] Work Phone: 01-15-2025 Cognitive function Level Of Cons ciousness Awake;Alert;Appropriate;Fol lows Commands [facility] Work Phone: 12-16-2024 Cognitive function Appropriate [facility] Work Phone: 12-15-2024 Cognitive function Level Of Cons ciousness Awake;Alert;Appropriate;Fol lows Commands [facility] Work Phone: 11-29-2024 Cognitive function Demonstrates ability to follow instructions/comprehend [facility] Work Phone: 11-29-2024 Cognitive function Appropriate;Cooperativ e [facility] Work Phone: 01-25-2014 Because of a physica l, mental, or emotional condition, do you have serious difficulty concentrating, remembering, or making decisions No 01/25/2014 5:44 PM EDT Amanda Belle RN No [facility] Clinical Notes 01-17-2011 to 05-22-2025 Note Date & Type Note Facility 05-22-2025 Discharge summary [facility] 05-22-2025 Note [facility] Medical Records Department [address] [place] [id number] Discharge Summary 05/22/25 1017 MR#: [id number] Acct: [id number] Name: RAGHAVENDRA BURROWS Rep #: [id number] : 1970 55 From: Hamzah Alvarez MD PCP: Dr. Harjeet Bernard MD Status:ADM IN [id number] Providers Date of Admission: 05/20/25 Date of Discharge: 05/22/25 Primary Care Physician: Dr. Harjeet Bernard MD Consultations 05/20/25 09:05 Consult: Nephrology Routine Consulting Provider: Renita Aguilar Reason for Consult: [place] EMERGENT Consult: No MD Notified: Yes Date Notified: 05/20/25 Time Notified: 09:12 Method of Notification: Answering Service Reason For Visit: [place] Diagnosis Discharge Diagnosis (1) Acute hyponatremia: Status: Acute Code(s): E87.1 - Hypo-osmolality and hyponatremia (2) Diarrhea: Status: Acute Code(s): R19.7 - Diarrhea, unspecified (3) Dehydration: Status: Acute Code(s): E86.0 - Dehydration Plan Patient is a 55-year-old gentleman with history of ileostomy following appendiceal malignancy presented to the emergency department with a 3-day history of progressive generalized weakness and increased output from his ileostomy 1. Acute kidney injury superimposed on chronic kidney disease stage IIIa ??? Patient's creatinine on 04/12/2025 was 1.94 creatinine on admission was 3.73. This is secondary to increased output from his ileostomy. Patient has been admitted to monitored bed started on IV hydration with serial monitoring of electrolytes ordered ??? 05/21/2025; renal ultrasound obtained the day prior demonstrated bilateral hydronephrosis. Patient creatinine down to 2.72 ??? 05/22/2025 patient creatinine down to 2.32 ??? Plan is for patient to be assessed for discharge. Patient has been instructed to follow-up with his primary system designer in [facility] 2. Hyponatremia ??? Secondary to hypovolemic hyponatremia patient started on saline with subsequent monitoring of sodium levels ordered to assess response to therapy ??? 05/21/2025; patient sodium level up to 129 we will continue current treatment regimen 3. Hyperkalemia ??? Secondary to patient impaired kidney function. Will monitor with repeat K levels ??? 05/22/2025 patient hyperkalemia has since resolved 4. Metabolic acidosis ??? Patient has some chronicity and is on bicarb tablets. Patient with metabolic acidosis secondary to his impaired kidney function ??? 05/21/2025; patient had to be started on bicarb drip following significant drop in his CO2 to 6 5. GERD ??? On PPI 6.Hyperphosphatemia ??? Secondary to patient impaired kidney function do expect improvement with improvement in his kidney function 7. Anemia ??? Secondary to chronic disorder monitoring H H and transfuse if patient becomes symptomatic or hemoglobin falls below 7 8. History of appendiceal malignancy ??? 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 9. Depression with anxiety ??? Discontinue patient home antidepressant 10. DVT prophylaxis ??? On enoxaparin, dose adjusted for kidney function 11. Hypomagnesemia ??? Corrected per protocol repeat mag levels ordered in a.m. to assess response to therapy 12. Hypokalemia ??? Potassium supplements ordered. Time spent in the patient's overall evaluation,decision-making process, review of diagnostic data, adjustment of management, discussion with other providers, nursing nursing and ancillary staff involved in patient's care documentation, 38 Minutes A Medications at Discharge Home Medications bupropion HCl 150 mg tablet,12 hr sustained-release 150 mg PO DAILY mood 05/04/24 fluvoxamine 150 mg capsule,extended release 24 hr 150 mg PO DAILY depression 05/04/24 ondansetron 8 mg disintegrating tablet 8 mg PO Q8H PRN nausea and vomiting #20 tabs 05/04/24 psyllium husk 3 gram oral powder packet (Daily Fiber (psyllium-aspartame)) 1 packet PO TID stool #54 ea 11/29/24 dicyclomine 20 mg tablet 20 mg PO .QID PRN diarrhea #20 tabs 12/16/24 diphenoxylate-atropine 2.5 mg-0.025 mg tablet (Lomotil) 2 tab PO Q6H PRN diarrhea #30 tabs 12/16/24 omeprazole 40 mg capsule,delayed release 40 mg PO DAILY reflux 05/20/25 sodium bicarbonate 650 mg tablet 650 mg PO TID kidneys 05/20/25 Physical Exam Narrative GENERAL: cooperative HEENT: Atraumatic; normocephalic EYES; Anicteric, Normal Conjunctiva NECK; supple, normal thyroid, RESPIRATORY: Diminished to auscultation CARDIOVASCULAR: Regular S1 S2, GI: soft, normoactive bowel sounds, : No Renal angle tenderness; EXTREMITIES: No edema, no clubbing, MUSCULOSKELETAL: no muscle wasting NEURO: Awake; no lateralizing signs. SKIN: No Rash PSYCH; Flat affect Weight / BMI Weight Weight: 86.1 kg Body Mass Index (BMI) 25.0 ABG / Lab / Microbiology Data 05/22/25 06:41 05/22/25 06 (more content not included)... [facility] 05-22-2025 Progress note [facility] 05-22-2025 Progress note Note Date/Time May 22, 2025 10:17am [facility] Medical Records Department [address] [place] [address] Progress Note - Hospitalist 05/22/25 0756 MR#: [id number] Acct: [id number] Name: RAGHAVENDRA BURROWS Rep #:[id number] : 1970 55 From: Hamzah Alvarez MD PCP: Dr. Harjeet Bernard MD Status:AD M IN Location: [place] [address] Reason for Visit Chief Complaint: Fatigue Subjective Subjective Patient sodium levels up to 32, potassium 3.2 this morning his acidosis continueto improve as well as his kidney Objective Data Objective Data Vital Signs: Vital Signs Temp Pulse Resp BP Pulse Ox O2 Del Method 97.9 F 80 16 101/60 96 Room Air 05/22/25 03:00 05/22/25 03:00 05/22/25 03:00 05/22/25 03:00 05/22/25 03:00 05/22/25 03:54 Oxygen Delivery Method Room Air Weight: 86.1 kg Body Mass Index (BMI) 25.0 Intake & Output: Intake and Output for Last 24 Hours 05/20/25 05/21/25 05/22/25 23:59 23:59 23:59 Intake Total 4463.33 / 4963.33 5747.33 / 5747.33 Output Total 600 / 600 Balance 4463.33 / 4963.33 5147.33 / 5147.33 Lab / Micro Data 05/22/25 06:41 05/22/25 06:41 Labs: Laboratory Results - last 24 hr 05/22/25 06:41: WBC 8.4, RBC 2.98 L, Hgb 8.8 L, Hct 26.5 L, MCV 88.9, MCH 29.5, MCHC 33.2, RDW Std Deviation 43.1, RDW Coeff of Dirk 13.3, Plt Count 386, MPV 8.8, Immature Gran % (Auto) 0.500, Neut % (Auto) 64.8, Lymph % (Auto) 11.4 L, [place] % (Auto) 21.6 H, Eos % (Auto) 1.5, Baso % (Auto) 0.2, Absolute Neuts (auto) 5.5, Absolute Lymphs (auto) 0.96, Nucleated RBC % 0, Sodium 132 L, Potassium 3.2L, Chloride 98, Carbon Dioxide 18.5 L, Anion Gap 15, BUN 79 H, Creatinine 2.32 H, Estim Creat Clear Calc 41.61 L, Est GFR (MDRD) Non-Af 33 L, BUN/Creatinine Ratio 34.0 H, Glucose 130 H, Calcium 8.9 Radiography Diagnostic Testing: Radiology Impression Renal Ultrasound 05/20/25 14:14 IMPRESSION: Mild bilateral hydronephrosis. Reading Location: [facility] Physical Exam Narrative GENERAL: cooperative HEENT: Atraumatic; normocephalic EYES; Anicteric, Normal Conjunctiva NECK; supple, normal thyroid, RESPIRATORY: Diminished to auscultation CARDIOVASCULAR: Regular S1 S2, GI: soft, normoactive bowel sounds, : No Renal angle tenderness; EXTREMITIES: No edema, no clubbing, MUSCULOSKELETAL: no muscle wasting NEURO: Awake; no lateralizing signs. SKIN: No Rash PSYCH; Flat affect Assessment & Plan Assessment/Plan (1) Acute hyponatremia: (2) Diarrhea: (3) Dehydration: PLAN: Plan Patient is a 55-year-old gentleman with history of ileostomy following appendiceal malignancy presented to the emergency department with a 3-day history of progressive generalized weakness and increased output from his ileostomy 1. Acute kidney injury superimposed on chronic kidney disease stage IIIa ? Patient's creatinine on 04/12/2025 was 1.94 creatinine on admission was 3.73. This is secondary to increased output from his ileostomy. Patient has been admitted to monitored bed started on IV hydration with serial monitoring of electrolytes ordered ? 05/21/2025; renal ultrasound obtained the day prior demonstrated bilateral hydronephrosis. Patient creatinine down to 2.72 ? 05/22/2025 patient creatinine down to 2.32 ? Plan is for patient to be assessed for discharge. Patient has been instructedto follow-up with his primary system designer in [facility] 2. Hyponatremia ? Secondary to hypovolemic hyponatremia patient started on saline with subsequent monitoring of sodium levels ordered to assess response to therapy ? 05/21/2025; patient sodium level up to 129 we will continue current treatment regimen 3. Hyperkalemia ? Secondary to patient impaired kidney function. Will monitor with repeat K levels ? 05/22/2025 patient hyperkalemia has since resolved 4. Metabolic acidosis ? Patient has some chronicity and is on bicarb tablets. Patient with metabolic acidosis secondary to his impaired kidney function ? 05/21/2025; patient had to be started on bicarb drip following significant dropin his CO2 to 6 5. GERD ? On PPI 6.Hyperphosphatemia ? Secondary to patient impaired kidney function do expect improvement with improvement in his kidney function 7. Anemia ? 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 9. Depression with anxiety ? Discontinue patient home antidepressant 10. DVT prophylaxis ? On enoxaparin, dose adjusted for kidney function 11. Hypomagnesemia ? Corrected per protocol repeat mag levels ordered in a.m. to assess response totherapy 12. Hypokalemia ? Potassium supplements ordered. Time spent in the patient's overall evaluation,decision-making process, review of diagnostic data, adjustment of management, discussion with other providers, nursing nursing and ancillary staff involved in patient's care documentation, 38 Minutes A Charges/Coding Visit Charges Inpatient E&M: 06113 Subs Hosp L2 05/22/25 1017 <Electronically signed by Hamzah Alvarez MD> Cosigner Signature (if applicable): CC: ~ Signed [facility] Work Phone: 1(831) 461-507408-22-2025 Progress note Author Hamzah Alvarez [facility] Note Date/Time May 21, 2025 9: 09am [facility] Medical Records Department [address] [place] [address] Progress Note - Hospitalist 05/21/25 0745 MR#: [id number] Acct: [id number] Name: RAGHAVENDRA BURROWS Rep #:[id number] : 1970 55 From: Hamzah Alvarez MD PCP: Dr. Harjeet Bernard MD Status:AD M IN Location: [place] [address] Reason for Visit Chief Complaint: Fatigue Subjective Subjective Patient seen has no specific complaints. Renal ultrasound obtained the day prior demonstrated bilateral hydronephrosis. Diagnostic data significant for hypomagnesemia Objective Data Objective Data Vital Signs: Vital Signs Temp Pulse Resp BP Pulse Ox O2 Del Method 98.3 F 97 16 115/77 98 Room Air 05/21/25 03:00 05/21/25 03:00 05/21/25 03:00 05/21/25 03:00 05/21/25 03:00 05/21/25 03:00 Oxygen Delivery Method Room Air Weight: 86.1 kg Body Mass Index (BMI) 25.0 Intake & Output: Intake and Output for Last 24 Hours 05/19/25 05/20/25 05/21/25 23:59 23:59 23:59 Intake Total 4463.33 / 4963.33 2083.33 / 2083.33 Output Total 600 / 600 Balance 4463.33 / 4963.33 1483.33 / 1483.33 Lab / Micro Data 05/21/25 05:10 05/21/25 05:10 Labs: Laboratory Results - last 24 hr 05/20/25 14:56: Sodium 127 L, Potassium 4.8, Chloride 102, Carbon Dioxide 6.0 L*, Anion Gap 19 H, BUN 99 H, Creatinine 2.87 H, Estim Creat Clear Calc 33.64 L, Est GFR (MDRD) Non-Af 25 L, BUN/Creatinine Ratio 34.3 H, Glucose 102 H, Calcium 8.9 05/20/25 20:00: Urine Color Yellow, Urine Clarity Clear, Urine pH 6.0, Ur Specific [place] 1.020, Urine Protein 30 H, Urine Glucose (UA) Normal, Urine Ketones Negative, Urine Occult Blood 25 H, Urine Nitrite Negative, Urine Bilirubin Negative, Urine Urobilinogen Normal, Ur Leukocyte Esterase Negative, Urine RBC 0 SEEN, Urine WBC 0 SEEN, Ur Squamous Epith Cells 0 SEEN, Urine Bacteria RARE, Hyaline Casts 0-5 SEEN, Urine Mucus 0 SEEN 05/21/25 04:34: POC Glucose 137 H 05/21/25 05:10: WBC 9.2, RBC 3.26 L, Hgb 9.8 L, Hct 29.6 L, MCV 90.8, MCH 30.1, MCHC 33.1, RDW Std Deviation 43.9, RDW Coeff of Dirk 13.4, Plt Count 437, MPV 9.0, Immature Gran % (Auto) 0.300, Neut % (Auto) 70.7 H, Lymph % (Auto) 11.8 L, [place] % (Auto) 16.6 H, Eos % (Auto) 0.5, Baso % (Auto) 0.1, Absolute Neuts (auto)6.5, Absolute Lymphs (auto) 1.09, Nucleated RBC % 0, [place] Cells 1+, Sodium 129 L, Potassium 3.9, Chloride 100, Carbon Dioxide 11.7 L, Anion Gap 17 H, BUN 91 H, Creatinine 2.72 H, Estim Creat Clear Calc 35.49 L, Est GFR (MDRD) Non-Af 27 L, BUN/Creatinine Ratio 33.3 H, Glucose 131 H, Calcium 8.8, Phosphorus 4.7 H, Magnesium 1.3 L Physical Exam Narrative GENERAL: cooperative HEENT: Atraumatic; normocephalic EYES; Anicteric, Normal Conjunctiva NECK; supple, normal thyroid, RESPIRATORY: Diminished to auscultation CARDIOVASCULAR: Regular S1 S2, GI: soft, normoactive bowel sounds, : No Renal angle tenderness; EXTREMITIES: No edema, no clubbing, MUSCULOSKELETAL: no muscle wasting NEURO: Awake; no lateralizing signs. SKIN: No Rash PSYCH; Flat affect Assessment & Plan Assessment/Plan (1) Acute hyponatremia: (2) Diarrhea: (3) Dehydration: PLAN: Plan Patient is a 55-year-old gentleman with history of ileostomy following appendiceal malignancy presented to the emergency department with a 3-day history of progressive generalized weakness and increased output from his ileostomy 1. Acute kidney injury superimposed on chronic kidney disease stage IIIa ? Patient's creatinine on 04/12/2025 was 1.94 creatinine on admission was 3.73. This is secondary to increased output from his ileostomy. Patient has been admitted to monitored bed started on IV hydration with serial monitoring of electrolytes ordered ? 05/21/2025; renal ultrasound obtained the day prior demonstrated bilateral hydronephrosis. Patient creatinine down to 2.72 2. Hyponatremia ? Secondary to hypovolemic hyponatremia patient started on saline with subsequent monitoring of sodium levels ordered to assess response to therapy ? 05/21/2025; patient sodium level up to 129 we will continue current treatment regimen 3. Hyperkalemia ? Secondary to patient impaired kidney function. Will monitor with repeat K levels 4. Metabolic acidosis ? Patient has some chronicity and is on bicarb tablets. Patient with metabolic acidosis secondary to his impaired kidney function ? 05/21/2025; patient had to be started on bicarb drip following significant dropin his CO2 to 6 5. GERD ? On PPI 6.Hyperphosphatemia ? Secondary to patient impaired kidney function do expect improvement with improvement in his kidney function 7. Anemia ? 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 9. Depression with anxiety ? Discontinue patient home antidepressant 10. DVT prophylaxis ? On enoxaparin, dose adjusted for kidney function 11. Hypomagnesemia ? Corrected per protocol repeat mag levels ordered in a.m. to assess response totherapy Time spent in the patient's overall evaluation,decision-making process, review of diagnostic data, adjustment of management, discussion with other providers, nursing nursing and ancillary staff involved in patient's care documentation, 38 Minutes A Charges/Coding Visit Charges Inpatient E&M: 66922 Subs Hosp L2 05/21/25 0909 <Electronically signed by Hamzah Alvarez MD> Cosigner Signature (if applicable): CC: ~ Signed [facility] Work Phone: 1(889) 259-608608-22-2025 Progress note [facility] Medical Records Department [address] [place] [address] Progress Note - Hospitalist 05/21/25 0745 MR#: [id number] Acct: [id number] Name: RAGHAVENDRA BURROWS Rep #:[id number] : 1970 55 From: Hamzah Alvarez MD PCP: Dr. Harjeet Bernard MD Status:AD M IN Location: [place] [address] 1 Reason for Visit Chief Complaint: Fatigue Subjective Subjective Patient seen has no specific complaints. Renal ultrasound obtained the day prior demonstrated bilateral hydronephrosis. Diagnostic data significant for hypomagnesemia Objective Data Objective Data Vital Signs: Vital Signs Temp Pulse Resp BP Pulse Ox O2 Del Method 98.3 F 97 16 115/77 98 Room Air 05/21/25 03:00 05/21/25 03:00 05/21/25 03:00 05/21/25 03:00 05/21/25 03:00 05/21/25 03:00 Oxygen Delivery Method Room Air Weight: 86.1 kg Body Mass Index (BMI) 25.0 Intake & Output: Intake and Output for Last 24 Hours 05/19/25 05/20/25 05/21/25 23:59 23:59 23:59 Intake Total 4463.33 / 4963.33 2083.33 / 2083.33 Output Total 600 / 600 Balance 4463.33 / 4963.33 1483.33 / 1483.33 Lab / Micro Data 05/21/25 05:10 05/21/25 05:10 Labs: Laboratory Results - last 24 hr 05/20/25 14:56: Sodium 127 L, Potassium 4.8, Chloride 102, Carbon Dioxide 6.0 L*, Anion Gap 19 H, BUN 99 H, Creatinine 2.87 H, Estim Creat Clear Calc 33.64 L, Est GFR (MDRD) Non-Af 25 L, BUN/Creatinine Ratio 34.3 H, Glucose 102 H, Calcium 8.9 05/20/25 20:00: Urine Color Yellow, Urine Clarity Clear, Urine pH 6.0, Ur Specific [place] 1.020, Urine Protein 30 H, Urine Glucose (UA) Normal, Urine Ketones Negative, Urine Occult Blood 25 H, UrineNitrite Negative, Urine Bilirubin Negative, Urine Urobilinogen Normal, Ur Leukocyte Esterase Negative, Urine RBC 0 SEEN, Urine WBC 0 SEEN, Ur Squamous Epith Cells 0 SEEN, Urine Bacteria RARE, HyalineCasts 0-5 SEEN, Urine Mucus 0 SEEN 05/21/25 04:34: POC Glucose 137 H 05/21/25 05:10: WBC 9.2, RBC 3.26 L, Hgb 9.8 L, Hct 29.6 L, MCV 90.8, MCH 30.1, MCHC 33.1, RDW Std Deviation 43.9, RDW Coeff of Dirk 13.4, Plt Count 437, MPV 9.0, Immature Gran % (Auto) 0.300, Neut % (Auto) 70.7 H, Lymph % (Auto) 11.8 L, [place] % (Auto) 16.6 H, Eos % (Auto) 0.5, Baso % (Auto) 0.1, Absolute Neuts (auto)6.5, Absolute Lymphs (auto) 1.09, Nucleated RBC % 0, [place] Cells 1+, Sodium 129 L, Potassium 3.9, Chloride 100, Carbon Dioxide 11.7 L, Anion Gap 17 H, BUN 91 H, Creatinine 2.72 H, Estim Creat Clear Calc 35.49 L, Est GFR (MDRD) Non-Af 27 L, BUN/Creatinine Ratio 33.3 H, Glucose 131 H,Calcium 8.8, Phosphorus 4.7 H, Magnesium 1.3 L Physical Exam Narrative GENERAL: cooperative HEENT: Atraumatic; normocephalic EYES; Anicteric, Normal Conjunctiva NECK; supple, normal thyroid, RESPIRATORY: Diminished to auscultation CARDIOVASCULAR: Regular S1 S2, GI: soft, normoactive bowel sounds, : No Renal angle tenderness; EXTREMITIES: No edema, no clubbing, MUSCULOSKELETAL: no muscle wasting NEURO: Awake; no lateralizing signs. SKIN: No Rash PSYCH; Flat affect Assessment & Plan Assessment/Plan (1) Acute hyponatremia: (2) Diarrhea: (3) Dehydration: PLAN: Plan Patient is a 55-year-old gentleman with history of ileostomy following appendiceal malignancy presented to the emergency department with a 3-day history of progressive generalized weakness and increased output from his ileostomy 1. Acute kidney injury superimposed on chronic kidney disease stage IIIa ? Patient's creatinine on 04/12/2025 was 1.94 creatinine on admission was 3.73. This is secondary toincreased output from his ileostomy. Patient has been admitted to monitored bed started on IV hydration with serial monitoring of electrolytes ordered ? 05/21/2025; renal ultrasound obtained the day prior demonstrated bilateral hydronephrosis. Patientcreatinine down to 2.72 2. Hyponatremia ? Secondary to hypovolemic hyponatremia patient started on saline with subsequent monitoring of sodium levels ordered to assess response to therapy ? 05/21/2025; patient sodium level up to 129 we will continue current treatment regimen 3. Hyperkalemia ? Secondary to patient impaired kidney function. Will monitor with repeat K levels 4. Metabolic acidosis ? Patient has some chronicity and is on bicarb tablets. Patient with metabolic acidosis secondary to his impaired kidney function ? 05/21/2025; patient had to be started on bicarb drip following significant dropin his CO2 to 6 5. GERD ? On PPI 6.Hyperphosphatemia ? Secondary to patient impaired kidney function do expect improvement with improvement in his kidney function 7. Anemia ? 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 9. Depression with anxiety ? Discontinue patient home antidepressant 10. DVT prophylaxis ? On enoxaparin, dose adjusted for kidney function 11. Hypomagnesemia ? Corrected per protocol repeat mag levels ordered in a.m. to assess response totherapy Time spent in the patient's overall evaluation,decision-making process, review of diagnostic data, adjustment of management, discussion with other providers, nursing nursing and ancillary staff involved in patient's care documentation, 38 Minutes A Charges/Coding Visit Charges Inpatient E&M: 08998 Subs Hosp L2 05/21/25 0909 Cosigner Signature (if applicable): CC: ~ Signed [facility]08-22-2025 Radiology Diagnostic study note [facility] Imaging Services [address] [place] [address] Kidney and Bladder MR#: [id number] Acct: [id number] Name: RAGHAVENDRA BURROWS Rep #: [id number] : 1970 M 55 From: Felipe Marquez MD PCP: Dr. Harjeet Bernard MD Status: AD M IN Study:Kidney and Bladder Date of Exam: 0 05/20/25 Exam# [id number] Ordering Dr: Huong Chawla i PROCEDURE: KIDNEY AND BLADDER 05/20/2025 REASON FOR EXAM: [place] TECHNIQUE: KIDNEY AND BLADDER COMPARISON: CT scan May 04, 2024 FINDINGS: Kidneys: Right kidney measures 11.7 x 5.8 x 6.8 cm, while the left measures 11.0x 5.9 x 5.4 cm. [place]: Bilateral hydronephrosis is present. Cysts or Masses: None Bladder: No bladder wall thickening seen. Bladder distention is mild. Prevoid bladder volume 784 cc. Empty bladder postvoid. Right ureteral jet not seen. Left jet is normal.. US/Kidney and Bladder IMPRESSION: Mild bilateral hydronephrosis. Reading Location: [id number] CC: WAREHOUSE SHIPPERVeto Horton; Dr. Harjeet Bernard MD ~ [employer]asting [employer]: Signed [facility]08-22-2025 Progress note Author Antonette Perera [facility] Note Date/Time May 21, 2025 6: 40am [facility] Medical Records Department [address] [place] [address] Progress Note - Hospitalist 05/21/25449 MR#: [id number] Acct: [id number] Name: RAGHAVENDRA BURROWS Rep #:[id number] : 1970 55 From: Antonette Perera MD PCP: Dr. Harjeet Bernard MD Status:AD M IN Location: [place] [address] Hospitalist Note Patient with fall, landed on his buttock. No trauma, no pain, no focal injury per patient. Moving without issue following. Will continue to monitor and defer imaging. BP check per staff 90/66. Will give 500 cc NS bolus. 05/21/25639 <Electronically signed by Antonette Perera MD> Cosigner Signature (if applicable): CC: ~ Signed [facility] Work Phone: 1(316) 611-207708-22-2025 Progress note [facility] Medical Records Department [address] [place] [address] Progress Note - Hospitalist 05/21/25449 MR#: [id number] Acct: [id number] Name: RAGHAVENDRA BURROWS Rep #:[id number] : 1970 55 From: Antonette Perera MD PCP: Dr. Harjeet Bernard MD Status:AD M IN Location: [place] [address] Hospitalist Note Patient with fall, landed on his buttock. No trauma, no pain, no focal injury per patient. Moving without issue following. Will continue to monitor and defer imaging. BP check per staff 90/66. Will give 500 cc NS bolus. 05/21/25 0640 Cosigner Signature (if applicable): CC: ~ Signed [facility]08-21-2025 Consult note Author Huong Horton [facility] Note Date/Time May 20, 2025 6: 26pm [facility] Medical Records Department [address] [place] [address] Consultation - Nephrology 05/20/25 1442 MR#: [id number] Acct: [id number] Name: RAGHAVENDRA BURROWS Rep #:[id number] : 1970 55 From: Huong cervantes NP-C PCP: Dr. Harjeet Bernard MD Status:AD M IN Location: [place] [address] Assessment & Plan Assessment/Plan (1) [place] (acute kidney injury): (2) Hyperkalemia: (3) Metabolic acidosis: PLAN: Plan This is a pleasant 55-year-old male with past medical history significant for appendiceal cancer status post appendectomy, splenectomy, colectomy with ileostomy who presented to the emergency room this morning with complaints of feeling fatigued, unwell and noting increased watery stool from his ostomy bag. Patient was admitted for further evaluation and treatment. Nephrology consultedin view of elevated creatinine. Patient is being followed by nephrology out of [facility]. Patient has had a fluctuating serum creatinine this past year. Difficult to determine baseline serum creatinine. April 2024 creatinine1.3. Patient admitted to the hospital late October to early November for high ostomy output with volume depletion, creatinine ranged at peak 3.0, at best 1.67mg/dL. March 28, 2025 creatinine 2.91, April 12 creatinine 1.9 and today creatinine 3.7, BUN 104, potassium 5.2, bicarb 10.9. Patient has received 3 L normal saline. Will change IV fluids to LR at 250 mL an hour. Volume status appears hypovolemic. No acute indication for renal replacement therapy, patientis nonoliguric. Will check UA. Patient states recently noted feeling of incomplete bladder emptying therefore we will check renal ultrasound. Further orders forthcoming as hospitalization evolves, thank you for allowing us to participate in care of Mr. Burrows. Assessment and plan reviewed with Dr. Aguilar. HPI Consult Data Date of Consult: 05/20/25 HPI Narrative HPI Narrative: RAGHAVENDRA BURROWS, is a 55 M with past medical history significant for appendiceal cancer status post appendectomy, splenectomy and colectomy with ileostomy roughly 3 years ago who presented to the emergency room this morning with complaints of fatigue and noting increased watery output from his ileostomy. Workup in the emergency room included lab work found to have a creatinine of 3.7, BUN 104, bicarb 10.9 and potassium 5.2. Sodium 126. Patient admitted for further evaluation and treatment. Nephrology consulted in view of elevated creatinine. Patient reports he has seen system designer in [place] through [facility], first appointment was in March and he has upcoming appointment June 19. Patient states he is never required any renal placement therapy. Patient reports he has fluctuating serum creatinine trends secondary to high ostomy output and significant volume depletion. In reviewing past creatinine trends patient has had elevated creatinine since 2023. Patient denies any NSAIDs. Denies dysuria or hematuria. He does state notices urinary frequency and at times feels he does not completely empty his bladder. No new medications. Patient states stool consistency normally like mashed potato consistency but of recent has been liquidy. [facility] Medical History Dehydration Acute kidney injury Cancer of appendix Ileostomy present Acute appendicitis Home Medications ?Medication ?Instructions ?Recorded ?Last Taken ?Type bupropion HCl 150 mg tablet,12 hr 150 mg PO DAILY mood 05/04/24 05/20/25 05:30 History sustained-release fluvoxamine 150 mg 150 mg PO DAILY depression 0 05/04/24 05/19/25 22:45 History capsule,extended release 24 hr ondansetron 8 mg disintegrating 8 mg PO Q8H PRN nausea and 05/04/24 Unknown Rx tablet vomiting #20 tabs psyllium husk 3 gram oral powder 1 packet PO TID stool #54 ea 11/29/24 05/19/25 Rx packet (Daily Fiber (psyllium-aspartame)) dicyclomine 20 mg tablet 20 mg PO .QID PRN diarrhea # 20 tabs 12/16/24 05/19/25 Rx diphenoxylate-atropine 2.5 2 tab PO Q6H PRN diarrhea # 30 tabs 12/16/24 05/19/25 Rx mg-0.025 mg tablet (Lomotil) omeprazole 40 mg capsule,delayed 40 mg PO DAILY reflux 05/20/25 05/19/25 History release sodium bicarbonate 650 mg tablet 650 mg PO TID kidneys 05/20/25 05/20/25 05:30 History Allergy/AdvReac Type Severity Reaction Status Date / Time No Known Allergies Allergy Verified 05/20/25 06:39 Family History Other VTE (venous thromboembolism) Surgical History S/P splenectomy H/O colectomy Social History (Updated 05/20/25 @ 09:25 by Debra Rangel) household members: spouse housing: house pets and animals: Yes Smoking Status: Never smoker ROS ROS Narrative As in HPI Physical Exam Narrative Alert and oriented x 3, no apparent distress S1, S2, RRR Lungs sound clear Abdomen soft, nontender No edema Lab / Micro Data 05/20/25 06:49 05/20/25 06:49 Labs: Laboratory Results - last 24 hr 05/20/25 06:49: WBC 14.8 H, RBC 4.19 L, Hgb 12.6 L, Hct 39.5 L, MCV 94.3 H, MCH 30.1, MCHC 31.9 L, RDW Std Deviation 46.9 H, RDW Coeff of Dirk 13.6, Plt Count 523 H, MPV 8.7, Immature Gran % (Auto) 0.400, Neut % (Auto) 87.1 H, Lymph % (Auto) 4.7 L, [place] % (Auto) 7.6, Eos % (Auto) 0.1, Baso % (Auto) 0.1, Absolute Neuts (auto) 12.9 H, Absolute Lymphs (auto) 0.69 L, Nucleated RBC % 0, Sodium 126 L, Potassium 5.2 H, Chloride 96 L, Carbon Dioxide 10.9 L, Anion Gap 19 H, BUN 104 H*, Creatinine 3.73 H, Estim Creat Clear Calc 25.88 L, Est GFR (MDRD) Non-Af 19 L, BUN/Creatinine Ratio 27.9 H, Glucose 133 H, Calcium 9.0, Phosphorus7.3 H, Magnesium 1.6 05/20/25 1453 <Electronically signed by Huong BAKER> Cosigner Signature (if applicable): 05/20/25 1826 <Electronically signed by Renita Aguilar MD> CC: Dr. Harjeet Bernard MD~ Signed [facility] Work Phone: 1(408) 939-424108-21-2025 Consult note [facility] Medical Records Department [address] [place] [address] Consultation - Nephrology 05/20/25 1442 MR#: [id number] Acct: [id number] Name: RAGHAVENDRA BURROWS Rep #:[id number] : 1970 55 From: Huong cervantes [employer]IPPER-C PCP: Dr. Harjeet Bernard MD Status:AD M IN Location: [place] [address] Assessment & Plan Assessment/Plan (1) [place] (acute kidney injury): (2) Hyperkalemia: (3) Metabolic acidosis: PLAN: Plan This is a pleasant 55-year-old male with past medical history significant for appendiceal cancer status post appendectomy, splenectomy, colectomy with ileostomy who presented to the emergency room this morning with complaints of feeling fatigued, unwell and noting increased watery stool from his ostomy bag. Patient was admitted for further evaluation and treatment. Nephrology consultedin view of elevated creatinine. Patient is being followed by nephrology out of [facility]. Patient has had a fluctuating serum creatinine this past year. Difficult to determine baseline serum creatinine. April 2024 creatinine1.3. Patient admitted to the hospital late October to early November for high ostomy output with volume depletion, creatinine ranged at peak 3.0, at best 1.67mg/dL. March 28, 2025 creatinine 2.91, April 12 creatinine 1.9 and today creatinine 3.7, BUN 104, potassium 5.2, bicarb 10.9.Patient has received 3 L normal saline. Will change IV fluids to LR at 250 mL an hour. Volume status appears hypovolemic. No acute indication for renal replacement therapy, patientis nonoliguric. Will check UA. Patient states recently noted feeling of incomplete bladder emptying therefore we will check renal ultrasound. Further orders forthcoming as hospitalization evolves, thank you for allowingus to participate in care of Mr. Burrows. Assessment and plan reviewed with Dr. Aguilar. HPI Consult Data Date of Consult: 05/20/25 HPI Narrative HPI Narrative: RAGHAVENDRA BURROWS, is a 55 M with past medical history significant for appendiceal cancer status post appendectomy, splenectomy and colectomy with ileostomy roughly 3 years ago who presented to the emergency room this morning with complaints of fatigue and noting increased watery output from his ileostomy. Workup in the emergency room included lab work found to have a creatinine of 3.7, BUN 104, bicarb 10.9 and potassium 5.2. Sodium 126. Patient admitted for further evaluation and treatment. Nephrology consulted in view of elevated creatinine. Patient reports he has seen system designer in [place] through [facility], first appointment was in March and he has upcoming appointment June 19. Patient states he is never required any renal placement therapy. Patient reports he has fluctuating serum creatinine trends secondary to high ostomy output and significant volume depletion. In reviewing past creatinine trends patient has had elevated creatinine since 2023. Patient denies any NS AIDs. Denies dysuria or hematuria. He does state notices urinary frequency and at times feels he does not completely empty his bladder. No new medications. Patient states stool consistency normally like mashed potato consistency but of recent has been liquidy. [facility] Medical History Dehydration Acute kidney injury Cancer of appendix Ileostomy present Acute appendicitis Home Medications ?Medication ?Instructions ?Recorded ?Last Taken ?Type bupropion HCl 150 mg tablet,12 hr 150 mg PO DAILY mood 05/04/24 05/20/25 05:30 History sustained-release fluvoxamine 150 mg 150 mg PO DAILY depression 0 05/04/24 05/19/25 22:45 History capsule,extended release 24 hr ondansetron 8 mg disintegrating 8 mg PO Q8H PRN nausea and 05/04/24 Unknown Rx tablet vomiting #20 tabs psyllium husk 3 gram oral powder 1 packet PO TID stool #54 ea 11/29/24 05/19/25 Rx packet (Daily Fiber (psyllium-aspartame)) dicyclomine 20 mg tablet 20 mg PO .QID PRN diarrhea # 20 tabs 12/16/24 05/19/25 Rx diphenoxylate-atropine 2.5 2 tab PO Q6H PRN diarrhea # 30 tabs 12/16/24 05/19/25 Rx mg-0.025 mg tablet (Lomotil) omeprazole 40 mg capsule,delayed 40 mg PO DAILY reflux 05/20/25 05/19/25 History release sodium bicarbonate 650 mg tablet 650 mg PO TID kidneys 05/20/25 05/20/25 05:30 History Allergy/AdvReac Type Severity Reaction Status Date / Time No Known Allergies Allergy Verified 05/20/25 06:39 Family History Other VTE (venous thromboembolism) Surgical History S/P splenectomy H/O colectomy Social History (Updated 05/20/25 @ 09:25 by Debra Rangel) household members: spouse housing: house pets and animals: Yes Smoking Status: Never smoker ROS ROS Narrative As in HPI Physical Exam Narrative Alert and oriented x 3, no apparent distress S1, S2, RRR Lungs sound clear Abdomen soft, nontender No edema Lab / Micro Data 05/20/25 06:49 05/20/25 06:49 Labs: Laboratory Results - last 24 hr 05/20/25 06:49: WBC 14.8 H, RBC 4.19 L, Hgb 12.6 L, Hct 39.5 L, MCV 94.3 H, MCH 30.1, MCHC 31.9 L, RDW Std Deviation 46.9 H, RDW Coeff of Dirk 13.6, Plt Count 523 H, MPV 8.7, Immature Gran % (Auto) 0.400, Neut % (Auto) 87.1 H, Lymph % (Auto) 4.7 L, [place] % (Auto) 7.6, Eos % (Auto) 0.1, Baso % (Auto) 0.1, Absolute Neuts (auto) 12.9 H, Absolute Lymphs (auto) 0.69 L, Nucleated RBC % 0, Sodium 126 L, Potassium 5.2 H, Chloride 96 L, Carbon Dioxide 10.9 L, Anion Gap 19 H, BUN 104 H*, Creatinine 3.73 H,Estim Creat Clear Calc 25.88 L, Est GFR (MDRD) Non-Af 19 L, BUN/Creatinine Ratio 27.9 H, Glucose 133 H, Calcium 9.0, Phosphorus7.3 H, Magnesium 1.6 05/20/25 1453 Cosigner Signature (if applicable): 05/20/25 7586 CC: Dr. Harjeet Bernard MD~ Signed [facility]08-21-2025 History and physical note Author Hamzah Alvarez [facility] Note Date/Time May 20, 2025 11 :52am [facility] Medical Records Department [address] [place] [address] H&P Exam - Hospitalist 05/20/25 0746 MR#: [id number] Acct: [id number] Name: RAGHAVENDRA BURROWS Rep #:[id number] : 1970 55 From: Hamzah Alvarez MD PCP: Dr. Harjeet Bernard MD Status:AD M IN Location: [place] [address] HPI - General General Date of Admission: 05/20/25 Chief Complaint: Fatigue HPI Narrative RAGHAVENDRA BURROWS, is a 55 M with past medical history significant for appendiceal malignancy 3 years prior status post ileostomy who presented to the emergency department with increasing fatigue and generalized weakness. Patient states symptoms started 4 days prior to his admission. Denied any subjective fever no chills however did complain of some nausea and did notice increasing output fromhis ileostomy. Patient felt he was dehydrated hence the decision to present to the emergency department to be evaluated. Patient was found to have worsening kidney function admitted to a monitored bed for subsequent management [facility] Medical History Dehydration Acute kidney injury Cancer of appendix Ileostomy present Acute appendicitis Home Medications ?Medication ?Instructions ?Recorded ?Last Taken ?Type bupropion HCl 150 mg tablet,12 hr 150 mg PO DAILY mood 05/04/24 05/20/25 05:30 History sustained-release fluvoxamine 150 mg 150 mg PO DAILY depression 0 05/04/24 05/19/25 22:45 History capsule,extended release 24 hr ondansetron 8 mg disintegrating 8 mg PO Q8H PRN nausea and 05/04/24 Unknown Rx tablet vomiting #20 tabs psyllium husk 3 gram oral powder 1 packet PO TID stool #54 ea 11/29/24 05/19/25 Rx packet (Daily Fiber (psyllium-aspartame)) dicyclomine 20 mg tablet 20 mg PO .QID PRN diarrhea # 20 tabs 12/16/24 05/19/25 Rx diphenoxylate-atropine 2.5 2 tab PO Q6H PRN diarrhea # 30 tabs 12/16/24 05/19/25 Rx mg-0.025 mg tablet (Lomotil) omeprazole 40 mg capsule,delayed 40 mg PO DAILY reflux 05/20/25 05/19/25 History release sodium bicarbonate 650 mg tablet 650 mg PO TID kidneys 05/20/25 05/20/25 05:30 History Allergy/AdvReac Type Severity Reaction Status Date / Time No Known Allergies Allergy Verified 05/20/25 06:39 Family History Other VTE (venous thromboembolism) Surgical History S/P splenectomy H/O colectomy Social History (Updated 05/20/25 @ 09:25 by Debra Rangel) household members: spouse housing: house pets and animals: Yes Smoking Status: Never smoker ROS ROS Narrative GENERAL: Generalized weakness and fatigue HEENT: denies headache, sinus congestion, or drainage, dysphagia RESPIRATORY: denies cough, sputum production, CARDIAC: denies chest pain, palpitations, orthopnea, PND GASTROINTESTINAL: Nausea but no vomiting GENITOURINARY: denies dysuria, urgency, frequency, heamaturia EXTREMITY: denies swelling MUSCULOSKELETAL: denies current joint pain or tenderness NEUROLOGIC: denies focal numbness, weakness, tingling HEMATOLOGIC: denies easy bruising and/or hemorrhage INTEGUMENT: denies rashes PSYCHIATRIC: denies suicidal or homicidal ideation Vital Signs Vital Signs Vital Signs: 05/20/25 06:36 05/20/25 06:39 Temperature 97.7 F L Temperature Source Oral Pulse Rate 103 H Respiratory Rate 18 Respiratory Effort Normal Non-Labored Respiratory Pattern Normal Blood Pressure 118/68 Blood Pressure Mean 84 Pulse Ox 98 Oxygen Delivery Method Room Air Weight Weight: 87.5 kg Body Mass Index (BMI) 25.4 Physical Exam Narrative GENERAL: cooperative HEENT: Atraumatic; normocephalic EYES; Anicteric, Normal Conjunctiva NECK; supple, normal thyroid, RESPIRATORY: Diminished to auscultation CARDIOVASCULAR: Regular S1 S2, GI: soft, normoactive bowel sounds, : No Renal angle tenderness; EXTREMITIES: No edema, no clubbing, MUSCULOSKELETAL: no muscle wasting NEURO: Awake; no lateralizing signs. SKIN: No Rash PSYCH; Flat affect Results Lab / Micro Data 05/20/25 06:49 05/20/25 06:49 Labs: Laboratory Results - last 24 hr 05/20/25 06:49: WBC 14.8 H, RBC 4.19 L, Hgb 12.6 L, Hct 39.5 L, MCV 94.3 H, MCH 30.1, MCHC 31.9 L, RDW Std Deviation 46.9 H, RDW Coeff of Dirk 13.6, Plt Count 523 H, MPV 8.7, Immature Gran % (Auto) 0.400, Neut % (Auto) 87.1 H, Lymph % (Auto) 4.7 L, [place] % (Auto) 7.6, Eos % (Auto) 0.1, Baso % (Auto) 0.1, Absolute Neuts (auto) 12.9 H, Absolute Lymphs (auto) 0.69 L, Nucleated RBC % 0, Sodium 126 L, Potassium 5.2 H, Chloride 96 L, Carbon Dioxide 10.9 L, Anion Gap 19 H, BUN 104 H*, Creatinine 3.73 H, Estim Creat Clear Calc 25.88 L, Est GFR (MDRD) Non-Af 19 L, BUN/Creatinine Ratio 27.9 H, Glucose 133 H, Calcium 9.0, Phosphorus7.3 H, Magnesium 1.6 Assessment & Plan Assessment/Plan (1) Acute hyponatremia: (2) Diarrhea: (3) Dehydration: PLAN: Plan Patient is a 55-year-old gentleman with history of ileostomy following appendiceal malignancy presented to the emergency department with a 3-day history of progressive generalized weakness and increased output from his ileostomy 1. Acute kidney injury superimposed on chronic kidney disease stage IIIa ? Patient's creatinine on 04/12/2025 was 1.94 creatinine on admission was 3.73. This is secondary to increased output from his ileostomy. Patient has been admitted to monitored bed started on IV hydration with serial monitoring of electrolytes ordered 2. Hyponatremia ? Secondary to hypovolemic hyponatremia patient started on saline with subsequent monitoring of sodium levels ordered to assess response to therapy 3. Hyperkalemia ? Secondary to patient impaired kidney function. Will monitor with repeat K levels 4. Metabolic acidosis ? Patient has some chronicity and is on bicarb tablets. Patient with metabolic acidosis secondary to his impaired kidney function 5. GERD ? On PPI 6.Hyperphosphatemia ? Secondary to patient impaired kidney function do expect improvement with improvement in his kidney function 7. Anemia ? 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 9. Depression with anxiety ? Discontinue patient home antidepressant 10. DVT prophylaxis ? On enoxaparin, dose adjusted for kidney function Time spent in the patient's overall evaluation,decision-making process, review of diagnostic data, adjustment of management, discussion with other providers, nursing nursing and ancillary staff involved in patient's care documentation, 75 Minutes Advance planning; did discuss with the patient regarding advanced directives as well as CODE STATUS. Did explain the various scenarios involved ( FULL CODE,DNR CCA, DNR CCA with no intubation, and DNR CC and what each meant) patient elected to remain full code with CPR intubation if needed. Order was placed. Time spent on discussion 16 minutes. Charges/Coding Multi Select Codes Visit Charges Visit Charges: 58876 Init Hosp Hospitalists' Procedures Procedures: 08961 Advncd Care Plan 30 Min 05/20/25 1152 <Electronically signed by Hamzah Alvarez MD> Cosigner Signature (if applicable): CC: Dr. Hamzah Alvarez MD; Dr. Harjeet Bernard MD~ Signed [facility] Work Phone: 1(770) 106-860308-21-2025 History and physical note [facility] Medical Records Department [address] [place] [address] H&P Exam - Hospitalist 05/20/25 0746 MR#: [id number] Acct: [id number] Name: RAGHAVENDRA BURROWS Rep #:[id number] : 1970 55 From: Hamzah Alvarez MD PCP: Dr. Harjeet Bernard MD Status:AD M IN Location: [facility] [id number] HPI - General General Date of Admission: 05/20/25 Chief Complaint: Fatigue HPI Narrative RAGHAVENDRA BURROWS, is a 55 M with past medical history significant for appendiceal malignancy 3 years prior status post ileostomy who presented to the emergency department with increasing fatigue and generalized weakness. Patient states symptoms started 4 days prior to his admission. Denied any subjective fever no chills however did complain of some nausea and did notice increasing output fromhis ileostomy. Patient felt he was dehydrated hence the decision to present to the emergency department to be evaluated. Patient was found to have worsening kidney function admitted to a monitored bed for subsequent management [facility] Medical History Dehydration Acute kidney injury Cancer of appendix Ileostomy present Acute appendicitis Home Medications ?Medication ?Instructions ?Recorded ?Last Taken ?Type bupropion HCl 150 mg tablet,12 hr 150 mg PO DAILY mood 05/04/24 05/20/25 05:30 History sustained-release fluvoxamine 150 mg 150 mg PO DAILY depression 0 05/04/24 05/19/25 22:45 History capsule,extended release 24 hr ondansetron 8 mg disintegrating 8 mg PO Q8H PRN nausea and 05/04/24 Unknown Rx tablet vomiting #20 tabs psyllium husk 3 gram oral powder 1 packet PO TID stool #54 ea 11/29/24 05/19/25 Rx packet (Daily Fiber (psyllium-aspartame)) dicyclomine 20 mg tablet 20 mg PO .QID PRN diarrhea # 20 tabs 12/16/24 05/19/25 Rx diphenoxylate-atropine 2.5 2 tab PO Q6H PRN diarrhea # 30 tabs 12/16/24 05/19/25 Rx mg-0.025 mg tablet (Lomotil) omeprazole 40 mg capsule,delayed 40 mg PO DAILY reflux 05/20/25 05/19/25 History release sodium bicarbonate 650 mg tablet 650 mg PO TID kidneys 05/20/25 05/20/25 05:30 History Allergy/AdvReac Type Severity Reaction Status Date / Time No Known Allergies Allergy Verified 05/20/25 06:39 Family History Other VTE (venous thromboembolism) Surgical History S/P splenectomy H/O colectomy Social History (Updated 05/20/25 @ 09:25 by Debra Rangel) household members: spouse housing: house pets and animals: Yes Smoking Status: Never smoker ROS ROS Narrative GENERAL: Generalized weakness and fatigue HEENT: denies headache, sinus congestion, or drainage, dysphagia RESPIRATORY: denies cough, sputum production, CARDIAC: denies chest pain, palpitations, orthopnea, PND GASTROINTESTINAL: Nausea but no vomiting GENITOURINARY: denies dysuria, urgency, frequency, heamaturia EXTREMITY: denies swelling MUSCULOSKELETAL: denies current joint pain or tenderness NEUROLOGIC: denies focal numbness, weakness, tingling HEMATOLOGIC: denies easy bruising and/or hemorrhage INTEGUMENT: denies rashes PSYCHIATRIC: denies suicidal or homicidal ideation Vital Signs Vital Signs Vital Signs: 05/20/25 06:36 05/20/25 06:39 Temperature 97.7 F L Temperature Source Oral Pulse Rate 103 H Respiratory Rate 18 Respiratory Effort Normal Non-Labored Respiratory Pattern Normal Blood Pressure 118/68 Blood Pressure Mean 84 Pulse Ox 98 Oxygen Delivery Method Room Air Weight Weight: 87.5 kg Body Mass Index (BMI) 25.4 Physical Exam Narrative GENERAL: cooperative HEENT: Atraumatic; normocephalic EYES; Anicteric, Normal Conjunctiva NECK; supple, normal thyroid, RESPIRATORY: Diminished to auscultation CARDIOVASCULAR: Regular S1 S2, GI: soft, normoactive bowel sounds, : No Renal angle tenderness; EXTREMITIES: No edema, no clubbing, MUSCULOSKELETAL: no muscle wasting NEURO: Awake; no lateralizing signs. SKIN: No Rash PSYCH; Flat affect Results Lab / Micro Data 05/20/25 06:49 05/20/25 06:49 Labs: Laboratory Results - last 24 hr 05/20/25 06:49: WBC 14.8 H, RBC 4.19 L, Hgb 12.6 L, Hct 39.5 L, MCV 94.3 H, MCH 30.1, MCHC 31.9 L, RDW Std Deviation 46.9 H, RDW Coeff of Dirk 13.6, Plt Count 523 H, MPV 8.7, Immature Gran % (Auto) 0.400, Neut % (Auto) 87.1 H, Lymph % (Auto) 4.7 L, Livingston % (Auto) 7.6, Eos % (Auto) 0.1, Baso % (Auto) 0.1, Absolute Neuts (auto) 12.9 H, Absolute Lymphs (auto) 0.69 L, Nucleated RBC % 0, Sodium 126 L, Potassium 5.2 H, Chloride 96 L, Carbon Dioxide 10.9 L, Anion Gap 19 H, BUN 104 H*, Creatinine 3.73 H,Estim Creat Clear Calc 25.88 L, Est GFR (MDRD) Non-Af 19 L, BUN/Creatinine Ratio 27.9 H, Glucose 133 H, Calcium 9.0, Phosphorus7.3 H, Magnesium 1.6 Assessment & Plan Assessment/Plan (1) Acute hyponatremia: (2) Diarrhea: (3) Dehydration: PLAN: Plan Patient is a 55-year-old gentleman with history of ileostomy following appendiceal malignancy presented to the emergency department with a 3-day history of progressive generalized weakness and increased output from his ileostomy 1. Acute kidney injury superimposed on chronic kidney disease stage IIIa ? Patient's creatinine on 04/12/2025 was 1.94 creatinine on admission was 3.73. This is secondary toincreased output from his ileostomy. Patient has been admitted to monitored bed started on IV hydration with serial monitoring of electrolytes ordered 2. Hyponatremia ? Secondary to hypovolemic hyponatremia patient started on saline with subsequent monitoring of sodium levels ordered to assess response to therapy 3. Hyperkalemia ? Secondary to patient impaired kidney function. Will monitor with repeat K levels 4. Metabolic acidosis ? Patient has some chronicity and is on bicarb tablets. Patient with metabolic acidosis secondary to his impaired kidney function 5. GERD ? On PPI 6.Hyperphosphatemia ? Secondary to patient impaired kidney function do expect improvement with improvement in his kidney function 7. Anemia ? 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 9. Depression with anxiety ? Discontinue patient home antidepressant 10. DVT prophylaxis ? On enoxaparin, dose adjusted for kidney function Time spent in the patient's overall evaluation,decision-making process, review of diagnostic data, adjustment of management, discussion with other providers, nursing nursing and ancillary staff involved in patient's care documentation, 75 Minutes Advance planning; did discuss with the patient regarding advanced directives as well as CODE STATUS. Did explain the various scenarios involved ( FULL CODE,DNR CCA, DNR CCA with no intubation, and DNR CC and what each meant) patient elected to remain full code with CPR intubation if needed. Order was placed. Time spent on discussion 16 minutes. Charges/Coding Multi Select Codes Visit Charges Visit Charges: 97663 Init Hosp L3 Hospitalists' Procedures Procedures: 26171 Advncd Care Plan 30 Min 05/20/25 1152 Cosigner Signature (if applicable): CC: Dr. Hamzah Alvarez MD; Dr. Harjeet Bernard MD~ Signed [facility]08-21-2025 Discharge summary Author Primo May [facility] Note Date/Time May 20, 2025 7: 43am [facility] Medical Records Department [address] [place] [address] Emergency Department Summary 05/20/25 MR#: [id number] Acct: [id number] Name: RAGHAVENDRA BURROWS Rep #:[id number] : 1970 55 From: Primo May DO PCP: Dr. Harjeet Bernard MD Status:RE G ER Location: ED HPI History of Present Illness Chief Complaint: General Illness Informant: patient Narrative Narrative: Patient is a 55-year-old male with past medical history of chronic kidney disease with previous ileostomy. He states that he dehydrates very easily basedon his short gut syndrome and ileostomy and will typically receive IV fluids every few weeks from his system designer. He states on Saturday he began with generalized abdominal discomfort with a few bouts of nausea and vomiting. He states since that time he is also had essentially brown water moving through hisileostomy. He states there is been no fevers and he denies any significant abdominal discomfort and he denies any known sick contact. However he is concerned that he is becoming dehydrated and potentially developing acute on chronic kidney injury as this has happened in the past and therefore he comes infor evaluation [facility] Medical History Dehydration Acute kidney injury [...] 875 mg-potassium 875 mg PO Q12H #20 TABLET S 04/12/25 Unknown Rx clavulanate 125 mg tablet Allergy/AdvReac Type Severity Reaction Status Date / Time No Known Allergies Allergy Verified 05/20/25 06:39 Family History Other VTE (venous thromboembolism) Surgical History S/P splenectomy H/O colectomy Social History household members: spouse housing: house Smoking Status: Never smoker ROS ROS ED Constitutional Constitutional ED: Reports other Details: Positive generalized fatigue ; Denies chills or fever(s) Eyes Eyes: Denies change in vision ENT ENT ED: Denies sore throat Cardiovascular Cardiovascular: Denies chest pain Respiratory/Chest Respiratory/Chest: Denies cough or dyspnea Gastrointestinal Gastrointestinal: Reports diarrhea, nausea and vomiting; Denies abdominal pain Genitourinary Genitourinary ED: Denies dysuria Musculoskeletal Musculoskeletal: Denies back pain or myalgias Integumentary Denies rash Neurologic Neurologic: Denies headache(s) Hematologic/Lymphatic Hematologic/Lymphatic: Denies easy bleeding or easy bruising EXAM Physical Exam Const Vital Signs: 05/20/25 06:36 05/20/25 06:39 Temperature 97.7 F L Temperature Source Oral Pulse Rate 103 H Respiratory Rate 18 Respiratory Effort Normal Non-Labored Respiratory Pattern Normal Blood Pressure 118/68 Blood Pressure Mean 84 Pulse Ox 98 Oxygen Delivery Method Room Air Positive well nourished and well developed General Appearance ED: well developed; Negative for pallor HEENT Reports dry mucous membranes HEENT Narrative: Normocephalic atraumatic No tongue or lip swelling no oral lesions no airway edema or compromise; no signs of infection noted in the posterior pharynx Mucous membranes are dry and tacky however Mouth ED: Yes dry mucous membranes Mouth: dry mucous membranes Eyes PERRL and EOMs intact bilaterally General Eye ED: Negative for scleral icterus Neck supple Resp normal respiratory effort and clear to auscultation bilaterally Cardio regular rhythm Rate: tachycardic and other Other Details: Slightly tachycardic rate with regular rhythm Radial and carotid pulses are equal and symmetric GI non-tender, non-distended and no masses GI Narrative: Abdomen is soft and nondistended with hyperactive bowel sounds. Ileostomy is present in the right mid abdomen with essentially brown water within the ostomy bag. No significant pain with palpation. No voluntary guarding or rigidity or pulsatile mass. Auscultation: hyperactive bowel sounds Palpation: soft Extremity normal to inspection Neuro oriented x3, CN's II-XII intact bilaterally and no sensory deficits noted Sensorium / Orientation: alert Motor Exam: strength 5/5 throughout Psych mental status grossly normal Skin no rashes or lesions noted and No skin turgor normal Skin Narrative: Skin turgor is increased consistent with dehydration General Skin Exam: Negative for jaundice or pallor MDM MDM MDM Narrative Medical decision making narrative: Patient arrived to the ER and is mildly tachycardic but otherwise with stable vitals. He reported roughly 4 days of decreased oral intake with excessive output from his ileostomy. Physical exam is concerning for dehydration with drymucous membranes and skin tenting and mild tachycardia. He has known chronic kidney disease but states he has had acute kidney injury in the past. There is concern for this with his symptoms and physical exam. Basic labs were obtained his white count is elevated at 14.8 but this is most likely stress response as he has normal tensive and afebrile with a soft nonsurgical abdomen. His BUN is increased from 29 on April 12 204 today consistent with dehydration. His creatinine has increased from 1.94-3.73 indicating acute kidney injury. Even though the BUN is elevated as his blood pressure is normal and his H&H stable I have low concern for an acute GI bleed. At this time however secondaryto his electrolyte abnormalities and acute on chronic kidney injury I feel he will need admitted to the hospital for continued IV hydration and laboratory monitoring. Therefore I discussed the case with the hospitalist who agrees to accept the patient for continued care History & Record Review Discussion w/independent historian: Patient Lab Data Attestation: I reviewed the patient's lab results. Labs: Laboratory Results - last 24 hr 05/20/25 06:49 WBC 14.8 H RBC 4.19 L Hgb 12.6 L Hct 39.5 L MCV 94.3 H MCH 30.1 MCHC 31.9 L RDW Std Deviation 46.9 H RDW Coeff of Dikr 13.6 Plt Count 523 H MPV 8.7 Immature Gran % (Auto) 0.400 Neut % (Auto) 87.1 H Lymph % (Auto) 4.7 L Livingston % (Auto) 7.6 Eos % (Auto) 0.1 Baso % (Auto) 0.1 Absolute Neuts (auto) 12.9 H Absolute Lymphs (auto) 0.69 L Nucleated RBC % 0 Sodium 126 L Potassium 5.2 H Chloride 96 L Carbon Dioxide 10.9 L Anion Gap 19 H BUN 104 H* Creatinine 3.73 H Estim Creat Clear Calc 25.88 L Est GFR (MDRD) Non-Af 19 L BUN/Creatinine Ratio 27.9 H Glucose 133 H Calcium 9.0 Phosphorus 7.3 H Magnesium 1.6 Management Discussion w/another healthcare provider: Hospitalist Discharge Plan Triage Chief Complaint: General Illness ED Provider: Primo May Dx/Rx/DC Orders Clinical Impression: [id number] kidney injury, Dehydration, Diarrhea, Acute hyponatremia Prescriptions: No Action bupropion HCl 150 mg [...] .QID PRN (Reason: diarrhea) Qty: 20 0RF amoxicillin-pot clavulanate 875-125 mg tablet 875 mg PO Q12H Qty: 20 0RF Primary Care Provider: Harjeet Bernard Referrals: Harjeet Bernard MD [Primary Care Provider] - Print Language: Indonesian Disposition Disposition: Acute Care Hospital [facility] What to do if you have Problems For any increased pain, shortness of breath, bleeding, nausea or vomiting, chestpain, or any unexpected problems, contact your Primary Care Provider. Call [facility] ([phone]) or report to the closest Emergency Room. Call 911 if necessary. 05/20/25 0743 <Electronically signed by Primo May DO> Cosigner Signature (if applicable): CC: Dr. Harjeet Bernard MD ~ Signed [facility] Work Phone: 1(450) 545-939208-21-2025 Evaluation note* Diagnosis Onset Date Resolution Status Admit Date Acute hyponatremia acute May 20, 2025 7:38am [place] (acute kidney injury) acute May 20, 2025 7:38am Dehydration acute May 20, 2025 7:38am Diarrhea acute May 20, 2 025 7:38am Hyperkalemia acute May 20, 2025 7:38am Metabolic acidosis acute May 20, 2025 7:38am [id number]-[id number] kidney injury chron ic May 20, 2025 7:38am [facility] Work Phone: 1(511) 168-735608-21-2025 Discharge summary [facility] Medical Records Department [address] [place] [address] Emergency Department Summary 05/20/25 MR#: [id number] Acct: [id number] Name: RAGHAVENDRA BURRWOS Rep #:[id number] : 1970 55 From: Primo May DO PCP: Dr. Harjeet Bernard MD Status:RE G ER Location: ED HPI History of Present Illness Chief Complaint: General Illness Informant: patient Narrative Narrative: Patient is a 55-year-old male with past medical history of chronic kidney disease with previous ileostomy. He states that he dehydrates very easily basedon his short gut syndrome and ileostomy and will typically receive IV fluids every few weeks from his system designer. He states on Saturday he began with generalized abdominal discomfort with a few bouts of nausea and vomiting. He states since that time he is also had essentially brown water moving through hisileostomy. He states there is been no fevers and he denies any significant abdominal discomfort and he denies any known sick contact. However he is concerned that he is becoming dehydrated and potentially developing acute on chronic kidneyinjury as this has happened in the past and therefore he comes infor evaluation [facility] Medical History Dehydration Acute kidney injury [...] 875 mg-potassium 875 mg PO Q12H #20 TABLET S 04/12/25 Unknown Rx clavulanate 125 mg tablet Allergy/AdvReac Type Severity Reaction Status Date / Time No Known Allergies Allergy Verified 05/20/25 06:39 Family History Other VTE (venous thromboembolism) Surgical History S/P splenectomy H/O colectomy Social History household members: spouse housing: house Smoking Status: Never smoker ROS ROS ED Constitutional Constitutional ED: Reports other Details: Positive generalized fatigue ; Denies chills or fever(s) Eyes Eyes: Denies change in vision ENT ENT ED: Denies sore throat Cardiovascular Cardiovascular: Denies chest pain Respiratory/Chest Respiratory/Chest: Denies cough or dyspnea Gastrointestinal Gastrointestinal: Reports diarrhea, nausea and vomiting; Denies abdominal pain Genitourinary Genitourinary ED: Denies dysuria Musculoskeletal Musculoskeletal: Denies back pain or myalgias Integumentary Denies rash Neurologic Neurologic: Denies headache(s) Hematologic/Lymphatic Hematologic/Lymphatic: Denies easy bleeding or easy bruising EXAM Physical Exam Const Vital Signs: 05/20/25 06:36 05/20/25 06:39 Temperature 97.7 F L Temperature Source Oral Pulse Rate 103 H Respiratory Rate 18 Respiratory Effort Normal Non-Labored Respiratory Pattern Normal Blood Pressure 118/68 Blood Pressure Mean 84 Pulse Ox 98 Oxygen Delivery Method Room Air Positive well nourished and well developed General Appearance ED: well developed; Negative for pallor HEENT Reports dry mucous membranes HEENT Narrative: Normocephalic atraumatic No tongue or lip swelling no oral lesions no airway edema or compromise; no signs of infection noted in the posterior pharynx Mucous membranes are dry and tacky however Mouth ED: Yes dry mucous membranes Mouth: dry mucous membranes Eyes PERRL and EOMs intact bilaterally General Eye ED: Negative for scleral icterus Neck supple Resp normal respiratory effort and clear to auscultation bilaterally Cardio regular rhythm Rate: tachycardic and other Other Details: Slightly tachycardic rate with regular rhythm Radial and carotid pulses are equal and symmetric GI non-tender, non-distended and no masses GI Narrative: Abdomen is soft and nondistended with hyperactive bowel sounds. Ileostomy is present in the right mid abdomen with essentially brown water within the ostomy bag. No significant pain with palpation. No voluntary guarding or rigidity or pulsatile mass. Auscultation: hyperactive bowel sounds Palpation: soft Extremity normal to inspection Neuro oriented x3, CN's II-XII intact bilaterally and no sensory deficits noted Sensorium / Orientation: alert Motor Exam: strength 5/5 throughout Psych mental status grossly normal Skin no rashes or lesions noted and No skin turgor normal Skin Narrative: Skin turgor is increased consistent with dehydration General Skin Exam: Negative for jaundice or pallor MDM MDM MDM Narrative Medical decision making narrative: Patient arrived to the ER and is mildly tachycardic but otherwise with stable vitals. He reported roughly 4 days of decreased oral intake with excessive output from his ileostomy. Physical exam is concerning for dehydration with drymucous membranes and skin tenting and mild tachycardia. He has known chronic kidney disease but states he has had acute kidney injury in the past. There is concern for this with his symptoms and physical exam. Basic labs were obtained his white count is elevated at14.8 but this is most likely stress response as he has normal tensive and afebrile with a soft nonsurgical abdomen. His BUN is increased from 29 on April 12 204 today consistent with dehydration. His c reatinine has increased from 1.94-3.73 indicating acute kidney injury. Even though the BUN is elevated as his blood pressure is normal and his H&H stable I have low concern for an acute GI bleed.At this time however secondaryto his electrolyte abnormalities and acute on chronic kidney injury Ifeel he will need admitted to the hospital for continued IV hydration and laboratory monitoring. Therefore I discussed the case with the hospitalist who agrees to accept the patient for continued care History & Record Review Discussion w/independent historian: Patient Lab Data Attestation: I reviewed the patient's lab results. Labs: Laboratory Results - last 24 hr 05/20/25 06:49 WBC 14.8 H RBC 4.19 L Hgb 12.6 L Hct 39.5 L MCV 94.3 H MCH 30.1 MCHC 31.9 L RDW Std Deviation 46.9 H RDW Coeff of Dirk 13.6 Plt Count 523 H MPV 8.7 Immature Gran % (Auto) 0.400 Neut % (Auto) 87.1 H Lymph % (Auto) 4.7 L Livingston % (Auto) 7.6 Eos % (Auto) 0.1 Baso % (Auto) 0.1 Absolute Neuts (auto) 12.9 H Absolute Lymphs (auto) 0.69 L Nucleated RBC % 0 Sodium 126 L Potassium 5.2 H Chloride 96 L Carbon Dioxide 10.9 L Anion Gap 19 H BUN 104 H* Creatinine 3.73 H Estim Creat Clear Calc 25.88 L Est GFR (MDRD) Non-Af 19 L BUN/Creatinine Ratio 27.9 H Glucose 133 H Calcium 9.0 Phosphorus 7.3 H Magnesium 1.6 Management Discussion w/another healthcare provider: Hospitalist Discharge Plan Triage Chief Complaint: General Illness ED Provider: Primo May Dx/Rx/DC Orders Clinical Impression: Lyfsg-zf-[id number] kidney injury, Dehydration, Diarrhea, Acute hyponatremia Prescriptions: No Action bupropion HCl 150 mg [...] .QID PRN (Reason: diarrhea) Qty: 20 0RF amoxicillin-pot clavulanate 875-125 mg tablet 875 mg PO Q12H Qty: 20 0RF Primary Care Provider: Harjeet Bernard Referrals: Harjeet Bernard MD [Primary Care Provider] - Print Language: Indonesian Disposition Disposition: Acute Care Hospital [facility] What to do if you have Problems For any increased pain, shortness of breath, bleeding, nausea or vomiting, chestpain, or any unexpected problems, contact your Primary Care Provider. Call [facility] ([phone]) or report tothe closest Emergency Room. Call 911 if necessary. 05/20/25 0743 Cosigner Signature (if applicable): CC: Dr. Harjeet Bernard MD ~ Signed [facility]08-20-2025 Telephone encounter Note* Telephone Encounter - Nayely Friedman - 05/19/2025 2:20 PM EDT Done [facility] Work Phone: [phone]) 647-782308-20-2025 Miscellaneous Notes* Telephone Encounter - Nayely Friedman - 05/19/2025 2:20 PM EDT Done * Telephone Encounter - Rowena May RN - 05/19/2025 1:15 PM EDT Pt is a 4hr hydration. Please adjust schedule accordingly. S/b scheduled prior to lunch. Thank you! [facility] Telephone encounter Note * Telephone Encounter - Rowena May RN - 05/19/2025 1:15 PM EDT Pt is a 4hr hydration. Please adjust schedule accordingly. S/b scheduled prior to lunch. Thank you! [facility]08-01-2025 Telephone encounter Note* Telephone Encounter - Nayely Friedman - 04/30/2025 12:48 PM EDT Scheduled with patient. Start email sent Pharm, please advise how often patient is to schedule, or PRN. Thank you [facility] Work Phone: [phone]) 731-519408-01-2025 Miscellaneous Notes* Telephone Encounter - Nayely Friedman - 04/30/2025 12:48 PM EDT Scheduled with patient. Start email sent Pharm, please advise how often patient is to schedule, or PRN. Thank you * Telephone Encounter - Ana Rosa Rossi LPN - 04/30/2025 9:13 AM EDT Sent [employer] message asking if he checked with work so he could IVF scheduled. Ana Rosa Rossi LPN * Telephone Encounter - Nayely Friedman - 04/26/2025 3:45 PM EDT Patient called requesting information about treatment. He will call back to schedule once he checkswith work schedule * Telephone Encounter - Amanda Celestin - 04/26/2025 3:13 PM EDT Called to schedule patient and he requested to call back tomorrow due to on the road at this time Amanda Celestin * Telephone Encounter - Harjeet Bernard MD - 04/23/2025 12:11 PM EDT Therapy plan was reviewed and patient is good to go for IVF at Hem/Onc department * Telephone Encounter - Harjeet Bernard MD - 04/22/2025 6:04 PM EDT Filed an order but not sure if did correctly * Telephone Encounter - Harjeet Bernard MD - 04/21/2025 7:22 PM EDT Check with hem/onc about setting up a therapy plan for IVF as noted below. * Telephone Encounter - Nelly Xiao I, MD - 04/13/2025 6:55 PM EDT Message to the primary care team : I saw Mr. Burrows today. Patient and expressed concern regarding frequent ED visits for IV fluids. Patients with chronic ileostomy losses often have to get IV fluids at infusion center every 2 to 3 weeks. This would prevent frequent ED visits for dehydration. At your local [facility] you can place standing orders for a liter of normal saline to be given over 4-5 hours every 2 to 3 weeks. I have already ordered renal labs to be done every other week for now. Thank you. [facility] Telephone encounter Note * Telephone Encounter - Ana Rosa Rossi LPN - 04/30/2025 9:13 AM EDT Sent [employer] message asking if he checked with work so he could IVF scheduled. Ana Rosa Rossi LPN [facility]07-30-2025 Telephone encounter Note* Telephone Encounter - Harjeet Bernard MD - 04/28/2025 6:33 PM EDT I already took care of orders to get as needed IVF through the hem/onc department. There are Therapy Plan standing orders [employer] who patient is to call to get scheduled there [facility]07-30-2025 Miscellaneous Notes* Telephone Encounter - Harjeet Bernard MD - 04/28/2025 6:33 PM EDT I already took care of orders to get as needed IVF through the hem/onc department. There are Therapy Plan standing orders Veriify who patient is to call to get scheduled there * Telephone Encounter - Shandra Khoury RN - 04/28/2025 11:32 AM EDT Attempted to reach patient. Left VM with Dr. Xiao's message and advised that he call back with anyfurther questions. * Telephone Encounter - Nelly Xiao I, MD - 04/27/2025 7:02 PM EDT Please inform patient that his PCP will be arranging for IV fluids. * Telephone Encounter - Natalie Escalante RN - 04/27/2025 4:34 PM EDT Patient calling to clarify if he is to receive IV hydration orders and by which provider. He stateshe was under the impression that he would have IV hydration orders placed for him. Reports he received a call yesterday from someone who was going to assist him in scheduling the IV appt but there was no order. Informed pt that message would be sent to PCP and Nephrology to advise. Natalie Escalante RN documented in this encounter[facility] Telephone encounter Note * Telephone Encounter - Shandra Khoury RN - 04/28/2025 11:32 AM EDT Attempted to reach patient. Left VM with Dr. Xiao's message and advised that he call back with anyfurther questions. [facility]07-29-2025 Telephone encounter Note* Telephone Encounter - Nelly Xiao I, MD - 04/27/2025 7:02 PM EDT Please inform patient that his PCP will be arranging for IV fluids. [facility]07-29-2025 Telephone encounter Note* Telephone Encounter - Natalie Escalante RN - 04/27/2025 4:34 PM EDT Patient calling to clarify if he is to receive IV hydration orders and by which provider. He stateshe was under the impression that he would have IV hydration orders placed for him. Reports he received a call yesterday from someone who was going to assist him in scheduling the IV appt but there was no order. Informed pt that message would be sent to PCP and Nephrology to advise. Natalie Escalante RN [facility]07-28-2025 Telephone encounter Note* Telephone Encounter - Nayely Friedman - 04/26/2025 3:45 PM EDT Patient called requesting information about treatment. He will call back to schedule once he checkswith work schedule [facility]07-28-2025 Telephone encounter Note* Telephone Encounter - Amanda Celestin - 04/26/2025 3:13 PM EDT Called to schedule patient and he requested to call back tomorrow due to on the road at this time Amanda Celestin [facility]07-25-2025 Telephone encounter Note* Telephone Encounter - Harjeet Bernard MD - 04/23/2025 12:11 PM EDT Therapy plan was reviewed and patient is good to go for IVF at Hem/Onc department [facility]07-24-2025 Telephone encounter Note* Telephone Encounter - Harjeet Bernard MD - 04/22/2025 6:04 PM EDT Filed an order but not sure if did correctly [facility]07-23-2025 Telephone encounter Note* Telephone Encounter - Harjeet Bernard MD - 04/21/2025 7:22 PM EDT Check with hem/onc about setting up a therapy plan for IVF as noted below. [facility]07-21-2025 Instructions* Patient Instructions* Harjeet Bernard MD - 04/19/2025 12:16 PM EDT - Finish your 10-day course of Augmentin for your leg cellulitis as prescribed by the ER. - Increase omeprazole to 40 mg once daily (a 90-day supply with 3 refills has been sent to [facility]); take it at the same time each [...] assess your heart function. documented in this encounterSelect [facility]25 NoteHNO ID: [id number] Author: HARJEET BERNARD MD Service: ? Author Type: Physician Type: Progress Notes Filed: 04/19/2025 23:11 Note Text: This note was created using LinkCloudriter. Subjective Raghavendra Katelyn Burrows is a 54 year old male. SUBJECTIVE: Triny W First is a 54-year-old male with a history [...] night. - Increased omepr (more content not included)...[facility] 04-19-2025 History of Present illness Narrative* Harjeet Bernard MD - 04/19/2025 11:43 AM EDT Images from the original note were not included. This note was created using Redbeaconter. Subjective Raghavendra Burrows is a 54 year old male. SUBJECTIVE: Triny Burrows is a 54-year-old male with a history of CKD, presenting for follow-up on cellulitis of the left lower extremity and associated symptoms. Triny reports improvement in cellulitis of the left lower extremity, with significant reduction in swelling over the past 24 hours. Initially, the swelling extended from the knee to the ankle, but itis now localized around the ankle area. He was prescribed a 10-day course of Augmentin by the ER onthe , which he has been taking as directed. He denies any new symptoms or changes over the pastweek. He also reports episodes of nausea and [...] attributes to his recent illness and dehydration. Hedenies any new shortness of breath or other [...] to 40 mg daily; prescription sent to [facility] with 3 refills. - Advised patient to avoid eating or drinking 2-3 hours before bedtime and to elevate the head of the bed. - Monitor for improvement in symptoms; consider GI referral if symptoms persist. # Stage 3b chronic kidney disease (HCC) (N18.32) # Acute renal insufficiency (N28.9) - Recent labs show improvement in kidney function; creatinine decreased to 1.94 mg/dL, GFR improvedto 41 mL/min/1.73m . - Acute renal insufficiency [...] this time. Harjeet Bernard MD Recording using [employer] software for draft documentation of the visit was discussed with the patient/authorized leasing representative; all questions welcomed and answered. Patient/authorized leasing representative agreed to proceed documented in this encounter[facility] History of Present illness Narrative* Callie Gordon RDWI - 04/15/2025 1:00 PM EDT Radiology Service Progress Note PATIENT NAME: Raghavendra Burrows DATE OF SERVICE: April 15, 2025 [...] PATIENT PRESENTS WITH AN IMPLANTABLE OR ATTACHED TURNING SANDER OPERATOR: No RADIOLOGY DEPARTMENT: Ultrasound PERIPHERAL IV DATA: Not applicable SIGNED BY: Callie Gordon RDMS RVT April 15, 2025 4:06 PM documented in this encounterSelect [facility]25 NoteHNO ID: [id number] Author: CALLIE GORDON RDMS Service: ? Author Type: Blender Operator Type: Progress Notes Filed: 04/15/2025 16:07 Note Text: Radiology Service Progress Note PATIENT NAME: Raghavendra Burrows DATE OF SERVICE: April 15, 2025 [...] PATIENT PRESENTS WITH AN IMPLANTABLE OR ATTACHED TURNING SANDER OPERATOR: No RADIOLOGY DEPARTMENT: Ultrasound PERIPHERAL IV DATA: Not applicable SIGNED BY: Callie Gordon RDMS RVT April 15, 2025 4:06 [facility]07-15-2025 Telephone encounter Note* Telephone Encounter - Nelly Xiao I, MD - 04/13/2025 7:[address] Arana saw Triny today for CKD stage IV. I understand that he might be getting CAT scan with IV contrast for surveillance of his mucinous tumor.Just wanted to express my concern as exposureto IV contrast at his current kidney function would be associated with an increased risk of contrast nephropathy. If it cannot be avoided, he would need IV hydration pre and postprocedure. Thank you [facility]07-15-2025 Miscellaneous Notes* Telephone Encounter - Nelly Xiao I, MD - 04/13/2025 7:[address] Arana saw Triny today for CKD stage IV. I understand that he might be getting CAT scan with IV contrast for surveillance of his mucinous tumor.Just wanted to express my concern as exposureto IV contrast at his current kidney function would be associated with an increased risk of contrast nephropathy. If it cannot be avoided, he would need IV hydration pre and postprocedure. Thank you documented in this encounterSelect [facility] Telephone encounter Note * Telephone Encounter - Nelly Xiao I, MD - 04/13/2025 6:55 PM EDT Message to the primary care team : I saw Mr. Burrows today. Patient and expressed concern regarding frequent ED visits for IV fluids. Patients with chronic ileostomy losses often have to get IV fluids at infusion center every 2 to 3 weeks. This would prevent frequent ED visits for dehydration. At your local [facility] you can place standing orders for a liter of normal saline to be given over 4-5 hours every 2 to 3 weeks. I have already ordered renal labs to be done every other week for now. Thank you. [facility]07-15-2025 Instructions* Patient Instructions* Nelly Xiao I, MD - 04/13/2025 1:07 PM EDT Avoid Advil ,Ibuprofen(Motrin),Aleve(Naproxen),Meloxicam and other pain/arthritis medications called NSAIDS. You [...] improve our service to you by calling [phone] You may be receiving a survey regarding your care today. If you do, please take a few minutes to fill it out and send it back. It would be greatly appreciated. documented in this encounterSelect [facility] History of Present illness Narrative* Nelly Xiao I, MD - 04/13/2025 1:00 PM EDT Images from the original note were not included. [facility], [facility]. Name:Raghavendra Burrows The patient, Raghavendra Sullivan, identity was verified by name and MRN. Pt is accompanied in the office today by his significant other-Erika Consultation requested by Dr. Denise ,for my opinion regarding elevated serum creatinine-from acute renal failure superimposed on CKD stage 4. My final recommendations will be communicated back to the requesting physician by way of shared Medical record or letter . PCP:Harjeet Bernard MD HPI: Raghavendra Burrows is a 54-year-old male with H/O [...] in 2021, which had spread to the peritoneum.Underwent extensive debulking and received one round of [...] appetite and a sensation of fullness lasting 3- 5 days, followed byperiods of normal eating. These symptoms have been ongoing since November. He has been managing his ileostomy output with loperamide, taking up to 16 tablets a day as needed to control watery output. Heuses Powerade and water to maintain hydration. No [...] tenderness and erythema-more marked in the left lowerextremity. MUSCULOSKELETAL: No spinal or CVA tenderness. 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 -Acute renal failure, unspecified acute renal failure type (primary encounter diagnosis): Worsening of underlying kidney disease in the setting of increased ileostomy losses. Serum creatinine increased to 2.75 mg/dL on 04/05/2025. Latest creatinine level from last night was improved back tobaseline at 2.0 mg/dL. Will update labs closely for next 3 months to check trend and rule out reversible causes. -CKD (chronic kidney disease) stage 4, GFR 15-29 ml/min ([facility]): CKD in the setting of multiple comorbidities including episodes of [place] from dehydration due to increased ileostomy losses. No recent UA or renal imaging study available in [facility]. Serum creatinine has been abnormal since November 2024. No creatinine level is available between that time and April 2024 when serum creatinine was normal. Baseline creatinine has ranged between 2.0 to 2.5 mg/dL. His eGFR is consistent with stageIV CKD. Creatinine level from 04/12/2025 was improved [...] related medications called NSAIDS. Can take Tylenol ifnecessary. Avoid IV contrast Start oral sodium bicarbonate [...] risk factors and future monitoring- at length withpatient. All concerns addressed. Message sent to PCP [...] recognition software and may contain errors, including spelling,grammar, syntax and misrecognition of what was dictated, that are not fully corrected documented in this encounterSelect [facility]25 NoteHNO ID: [id number] Author: NELLY XIAO MD Service: ? Author Type: Physician Type: Progress Notes Filed: 04/13/2025 14:14 Note Text: [facility]. Name:Raghavendra Burrows The patient, Raghavendra Sullivan, identity was verified by name and MRN. Pt is accompanied in the office today by his significant other-Erika Consultation requested by Dr. Denise ,for my opinion regarding elevated serum creatinine-from acute renal failure superimposed on CKD stage 4. My final recommendations will be communicated back to the requesting physician by way of shared Medical record or letter . PCP:Harjeet Bernard MD HPI: Raghavendra W First is a 54-year-old male with H/O hyperlipidemia, [...] rash or ulcers IN (more content not included)...[facility]07-14-2025 Radiology Diagnostic study note [facility] Imaging Services [address] [place] [address] Venous Duplex Imag/Hugh Extrem MR#: [id number] Acct: [id number] Name: RAGHAVENDRA BURROWS Rep #: [id number] : 1970 M 54 From: Paige Hitchcock MD PCP: Dr. Harjeet Bernard MD Status: RE G ER Study:Venous Duplex Imag/Hugh Extrem Date of E xam: 04/12/25 Exam# [id number] Ordering Dr: Nathen Walker MD PROCEDURE: VENOUS [...] thrombosis within bilateral lower extremities. Reading Location: [facility] CC: Dr. Nathen Walker MD; Dr. Harjeet Bernard MD ~ Blasting Coal Miner: Signed [facility]06-30-2025 NoteHNO ID: [id number] Author: KELLEN SALGUERO APRN.CNC SUPERVISOR Service: ? Author Type: Nurse Practitioner Type: Progress Notes Filed: 03/29/2025 13:43 Note Text: CC: Patient presents with: ER F/U HPI Recording using [employer] software for draft documentation of the visit was discussed with the patient/authorized leasing representative; all questions welcomed and answered. Patient/authorized leasing representative agreed to proceed [facility] Katelyn First is a 54-year-old male with a history of high-output ileostomy, CKD, and chronically elevated WBC counts, presenting for follow-up after an ER visit on 03/28 due to increased ostomy output and decreased urine output. [facility] reports multiple ER visits since October for [...] Laterality Date COLONOSCOPY SCREENING 04/26/2022 EGD W/O [facility] SPEC VARICIES INJ 04/26/2022 PAST SURGICAL HISTORY [...] 2-dose series) due on 08/13/2022 Covid-19 Vaccine( - 2023- season) due on (more content not included)... [facility]06-30-2025 History of Present illness Narrative* Kellen Salguero, THERAPIST RESPIRATORY.CNC SUPERVISOR - 03/29/2025 1:37 PM EDT CC: Patient presents with: ER F/U HPI Recording using ambient Diasome software for draft documentation of the visit was discussed with the patient/authorized leasing representative; all questions welcomed and answered. Patient/authorized leasing representative agreed to proceed Triny Zepeda First is a 54-year-old male with a history [...] nausea and emesis last evening. He denies cephalalgia,blurred vision, disorientation, confusion, or lower extremity edema. He reports normal urine outputtoday and urine is clear. Triny is on [...] Laterality Date COLONOSCOPY SCREENING [facility]26[facility]2022 [facility] 04/26/2022 PAST SURGICAL HISTORY [...] Risk 2-dose series) due on 08/13/2022 Covid-19 Vaccine(3 - season) due on 05/31/2024 Influenza Vaccine(Season Ended) due on 05/31/2025 Diabetes Screening due on 03/22/2028 DTaP,Tdap,Td Vaccine(2 - Td or Tdap) due on 03/25/2028 Lipid Screening due on 12/12/2029 Hib Vaccine Completed Pneumococcal Vaccine: 50+ Completed Colorectal Cancer Screening Discontinued Hepatitis C Screening Discontinued HIV Screening Discontinued I have reviewed the patient s records from [facility] including diagnostic testing performed, their discharge medications, and my assessment and plan with the patient and any family members present at todays visit. Labs: (03/28) - WBC: 18.2 10^3/ [...] assess current electrolyte status and renal function post- IV fluid administration. - Discussed the importance of maintaining adequate hydration with electrolyte- rich fluids. - Advised against standing orders for [...] previously recorded at 4.09 mg/dL. Scheduled to seenephrologist on 04/13 for further evaluation. - Continue weekly labs as previously recommended by Dr. Bernard. - Await nephrology consultation for comprehensive renal assessment and management plan. Prescription instructions reviewed with patient as applicable. Potential red flag symptoms discussed with the patient. Reviewed appropriate action plan to take if red flag symptoms occur. Patient agreeable to treatment plan. Kellen Salguero APRN.RICHIE documented in this encounterSelect [facility] Instructions* Patient Instructions* Kellen Salguero APRN.CNP - 03/29/2025 1:34 PM EDT We discussed [...] help identify any underlying kidney issues contributing toyour symptoms. - The system designer may order additional tests, such as blood [...] seek immediate medical care. documented in this encounterSelect Medical [facility] Discharge summary [facility] Medical Records Department [address] [place] [address] Emergency Department Summary 03/28/25 MR#: [id number] Acct: [id number] Name: RAGHAVENDRA BURROWS Rep #:[id number] : 1970 54 From: Hesham Jacobson MD [...] bag in his lower abdomen with loose st ool. Nontender. Nondistended. Moving all 4 extremities. Nontender [...] to inspection, nondistended, normoactive bowel sounds, non-tender, non- distended and no masses GI Narrative: Ileostomy bag [...] output concern for dehydration. He does have aborderline blood pressure and pulse of 100. But [...] in the past. He is also had aprior history of hyponatremia. Lab Data Attestation: I [...] 86.7 H Lymph % (Auto) 3.0 L Livingston % (Auto) 9.5 Eos % (Auto) 0.2 [...] air conditioning lots hot outside. Print Language: Indonesian Disposition Disposition: Home, Self Care What to do if you have Problems For any increased pain, shortness of breath, bleeding, nausea or vomiting, chestpain, or any unexpected problems, contact your Primary Care Provider. Call [facility] ([phone]) or report tothe closest Emergency Room. Call 911 if necessary. 03/28/25 7318 Cosigner Signature (if applicable): CC: Dr. Harjeet Bernard MD ~ Signed [facility]06-29-2025 Discharge summary Author Hesham Jacobson [facility] Note Date/Time March 28, 2025 3:28 pm [facility] Medical Records Department [address] [place] [address] Emergency Department Summary 03/28/25 MR#: [id number] Acct: [id number] Name: RAGHAVENDRA BURROWS Rep #:[id number] : 1970 54 From: Hesham Jacobson MD [...] similar symptoms: Yes Recent Illness/Hospitalization: No [facility] Medical History Dehydration Acute kidney [...] 86.7 H Lymph % (Auto) 3.0 L [place] % (Auto) 9.5 Eos % (Auto) 0.2 [...] air conditioning lots hot outside. Print Language: Indonesian Disposition Disposition: Home, Self Care What to do if you have Problems For any increased pain, shortness of breath, bleeding, nausea or vomiting, chestpain, or any unexpected problems, contact your Primary Care Provider. Call [facility] ([phone]) or report to the closest Emergency Room. Call 911 if necessary. 03/28/25 1528 <Electronically signed by Hesham Jacobson MD> Cosigner Signature (if applicable): CC: Dr. Harjeet Bernard MD ~ Signed [facility] Work Phone: 1(862) 540-880406-29-2025 Hospital Discharge instructionsAdditional Instructions Plenty of fluids [...] indoor in the air conditioning lots hot outside.[facility] Work Phone: 1(853) 956-319405-07-2025 Telephone encounter Note* Telephone Encounter - Isela Parekh RN - 02/03/2025 3:29 PM EDT Mychart sent. [facility]20[facility] Miscellaneous Notes* Telephone Encounter - Isela Parekh RN - 02/03/2025 3:29 PM EDT Mychart sent. * Telephone Encounter - Callie Hall - 02/03/2025 2:40 PM EDT [phone] Raghavendra Patient calling to go over ostomy output with the nurse. States if she doesn't need to call him, a Doblethart message will be ok. documented in this encounterSelect [facility] Telephone encounter Note * Telephone Encounter - Callie Hall - 02/03/2025 2:40 PM EDT [phone] Raghavendra Patient calling to go over ostomy output with the nurse. States if she doesn't need to call him, a Doblethart message will be ok. [facility]04-30-2025 Telephone encounter Note* Telephone Encounter - Isela Parekh RN - 01/27/2025 12:14 PM EDT [...] stoppers and call me in 1 week. [facility]04-30-2025 Miscellaneous Notes* Telephone Encounter - Isela Parekh RN - 01/27/2025 12:14 PM EDT Daily outputs: 01/22: 28 oz 01/23: 52 oz 01/24: 58 oz 01/25: 36 oz /:40 oz Consistency: varies watery- [...] me in 1 week. documented in this encounterSelect [facility]25 Telephone encounter Note * Telephone Encounter - Isela Parekh RN - 01/18/2025 4:16 PM EDT [...] They will call with any further concerns. [facility]04-21-2025 Miscellaneous Notes* Telephone Encounter - Isela Parekh RN - 01/18/2025 4:16 PM EDT [...] down considerably. Please call. documented in this encounterSelect Medical [facility]2025 Telephone encounter Note * Telephone Encounter - Mary Gonzalez - 01/18/2025 3:43 PM EDT He is doing better with 1 Imodium, lomotil. This has slowed his ouput down considerably. Please call. [facility] Work Phone: 1(608) 803-458004-18-2025 Discharge summary [facility] Medical Records Department [address] [place] [address] Emergency Department Summary 01/15/25 MR#: [id number] Acct: [id number] Name: RAGHAVENDRA BURROWS Rep #:[id number] : 1970 54 From: Iker malcolm DO [...] hold of his surgeon Dr. Buenrostro at [facility]. He wanted the patient to present to [...] intact Psych: Cooperative, appropriate mood and affect [facility] Medical History Cancer of appendix Ileostomy [...] of his surgeon Dr. Bia metzger at [facility]. He wanted the patient to present to [...] 84.7 H Lymph % (Auto) 4.9 L [place] % (Auto) 9.5 Eos % (Auto) 0.3 [...] MD [Primary Care Provider] - Print Language: Indonesian What to do if you have Problems For any increased pain, shortness of breath, bleeding, nausea or vomiting, chestpain, or any unexpected problems, contact your Primary Care Provider. Call [facility] ([phone]) or report tothe closest Emergency Room. Call 911 if necessary. 01/15/25 Cosigner Signature (if applicable): CC: Dr. Harjeet Bernard MD ~ Signed [facility]04-18-2025 Telephone encounter Note* Telephone Encounter - Isela Parekh RN - 01/15/2025 3:09 PM EDT [...] output Regroup and touch base on Saturday. [facility]04-18-2025 Miscellaneous Notes* Telephone Encounter - Isela Parkeh RN - 01/15/2025 3:09 PM EDT Patient [...] get off work please documented in this encounter[facility] Discharge summary Author Iker Richards [facility] Note Date/Time January 15, 2025 11: 27pm [facility] Medical Records Department [address] [place] [address] Emergency Department Summary 01/15/25 MR#: [id number] Acct: [id number] Name: RAGHAVENDRA BURROWS Rep #:[id number] : 1970 54 From: Iker malcolm DO [...] hold of his surgeon Dr. Buenrostro at [facility]. He wanted the patient to present to [...] intact Psych: Cooperative, appropriate mood and affect [facility] Medical History Cancer of appendix Ileostomy [...] hold of his surgeon Dr. Buenrostro at [facility]. He wanted the patient to present to [...] 84.7 H Lymph % (Auto) 4.9 L Livingston % (Auto) 9.5 Eos % (Auto) 0.3 [...] MD [Primary Care Provider] - Print Language: Indonesian What to do if you have Problems For any increased pain, shortness of breath, bleeding, nausea or vomiting, chestpain, or any unexpected problems, contact your Primary Care Provider. Call [facility] ([phone]) or report to the closest Emergency Room. Call 911 if necessary. 01/15/25 4561 <Electronically signed by Iker Richards DO> Cosigner Signature (if applicable): CC: Dr. Harjeet Bernard MD ~ Signed [facility] Work Phone: 1(842) 975-406004-18-2025 Telephone encounter Note* Telephone Encounter - Mary Gonzalez - 01/15/2025 1:13 PM EDT Patient calling to say his output was 78 ouces over 24 hours. Please call him back after 230 p, when he get off work please [facility] Work Phone: 1(273) 729-213604-17-2025 Telephone encounter Note* Telephone Encounter - Isela Parekh RN - 01/14/2025 3:08 PM EDT [...] make sure he knows the updated info. [facility]04-17-2025 Miscellaneous Notes* Telephone Encounter - Isela Parekh RN - 01/14/2025 3:08 PM EDT [...] the updated info. * Telephone Encounter - Isela Parekh RN - 01/14/2025 10:48 AM EDT Left VM regarding mychart message. Requested a call back to discuss symptoms/output. documented in this encounter[facility] Telephone encounter Note * Telephone Encounter - Isela Parekh RN - 01/14/2025 10:48 AM EDT Left VM regarding mychart message. Requested a call back to discuss symptoms/output. [facility]03-31-2025 History of Present illness Narrative* Nicolasa Denise DO - 12/28/2024 2:45 PM EDT COLORECTAL SURGERY VIRTUAL VISIT FOLLOW UP I have communicated my name and active licensure. The patient's identity and physical location wereverified at the time of this visit. Either the patient or their legal leasing representative has been informed of the risks and benefits of -- and alternatives to -- treatment through a remote evaluation andconsents to proceed with the evaluation remotely. I had a virtual visit with Mr. Burrows today for follow up of recent hospitalization. 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 [...] which included preparing to see the patient, lupi-dx-halw patient care, completing clinical documentation, obtaining and/or reviewing separately obtained history, performing a medically appropriate examination, counseling and educating the pat ient/family/caregiver, ordering medications, tests, or procedures, communicating with other HCPs (not separately reported), independently interpreting results (not separately reported), communicatingresults to the patient/family/caregiver, and care coordination (not separately reported). documented in this encounter[facility]-2025 NoteHNO ID: [id number] Author: NICOLASA DENISE DO Service: ? Author Type: Physician Type: Progress Notes Filed: 03/26/2025 10:21 Note Text: COLORECTAL SURGERY VIRTUAL VISIT FOLLOW UP I have communicated my name and active licensure. The patient's identity and physical location were verified at the time of this visit. Either the patient or their legal leasing representative has been informed of the risks and benefits of -- and alternatives to -- treatment through a remote evaluation and consents to proceed with the evaluation remotely. I had a virtual visit with Mr. Burrows today for follow up of recent hospitalization. 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 [...] which included preparing to see the patient, mryl-kk-[id number] patient care, completing clinical documentation, obtaining and/or reviewing separately obtained history, performing a medically appropriate examination, counseling and educating the patient/family/caregiver, ordering medications, tests, or procedures, communicating with other HCPs (not separately reported), independently interpreting results (not separately reported), communicating results to the patient/family/caregiver, and care coordination (not separately reported). [facility]03-24-2025 Instructions* Patient Instructions* Harjeet Bernard MD - [...] function and electrolyte levels. documented in this encounterSelect [facility]-2025 NoteHNO ID: [id number] Author: HARJEET BERNARD MD Service: ? Author Type: Physician Type: Progress Notes Filed: 12/21/2024 19:51 Note Text: This note was created using [employer]. Subjective Raghavendra Burrows is a 54 year old male. Patient presents with: F/U 6 Month SUBJECTIVE: Raghavendra Burrows is a 54 year old year [...] and dry. Neurological: Gen (more content not included)...[facility]03-24-2025 History of Present illness Narrative* Harjeet Bernard MD - 12/21/2024 3:42 PM EDT Images from the original note were not included. This note was created using [employer]beacon[employer]. Subjective Raghavendra Burrows is a 54 year old male. Patient presents with: F/U 6 Month SUBJECTIVE: Raghavendra Burrows is a 54 year old year [...] time needed admitted. List of questions from fely brought in to go through--questions answered to [...] Lymph 1.00 - 4.00 k/uL 1.21 1.71 Livingston% % 22.2 11.3 Abs Livingston <0.87 k/uL 1.48 (H) 1.15 (H) Eosin% [...] External lab result Reviewed labs done at [facility] . Assessment and Plan # [place] (acute [...] consider lactose-free alternatives. # 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) (Z93.2) - Increased output noted, likely contributing [...] Stable on current meds. Refills sent to [facility] pharmacy. I spent a total of 46 minutes on the date of the service which included robf-zq-tbab patient care, completing clinical documentation, obtaining and/or reviewing separately obtained history, performing a medically appropriate examination, counseling and educating the patient/family/caregiver, ordering medications, tests, or procedures, independently interpreting results (not separately reported), and communicating results to the patient/family/caregiver. Harjeet Bernard MD documented in this encounterSelect [facility] Telephone encounter Note * Telephone Encounter - Shwetha Barraza RN - 12/17/2024 10:37 AM EDT Aishwarya Stator Winder with [employer] called to reports that the Pt has an RN Health Pin Chaser through [facility] Hany Pizano (female) ph. [phone]. She wanted to give provider this information in case she would need it. Put the information under the comment section under the Pt information. [facility]03-20-2025 Miscellaneous Notes* Telephone Encounter - Shwetha Barraza RN - 12/17/2024 10:37 AM EDT Aishwarya Stator Winder with [employer] called to reports that the Pt has an RN Health Pin Chaser through [facility] Hany Pizano (female) ph. [phone]. She wanted to give provider this information in case she would need it. Put the information under the comment section under the Pt information. documented in this encounterSelect [facility] Discharge summary Author Mk cJ [facility] Note Date/Time December 16, 2024 11: 27am [facility] Medical Records Department [address] [place] [address] Instructions for Home/Discharge Instructions 12/16/24 1118 MR#: [id number] Acct: [id number] Name: RAGHAVENDRA BURROWS Rep #:[id number] : 1970 54 From: Mk Jc DO [...] CC: Dr. Harjeet Bernard MD ~ Signed [facility] Work Phone: [phone]) 162-986903-19-2025 Progress note [facility] Medical Records Department [address] [place] [address] Progress Note - Hospitalist 12/16/24 0004 MR#: [id number] Acct: [id number] Name: RAGHAVENDRA BURROWS Rep #:[id number] : 1970 54 From: Antonette Perera MD PCP: Dr. Harjeet Bernard MD Status:AD M SANNA Location: [place] [address] Hospitalist Note Patient with high ostomy output, noted [place] likely caused by this. Will obtain cdiff and enteric to be cautious per discussion with administrative staff supervisor. 12/16/243 Cosigner Signature (if applicable): CC: ~ Signed [facility]03-19-2025 [facility] Medical Records Department [address] [place] [address] Discharge Summary 12/16/24 1128 MR#: [id number] Acct: [id number] Name: RAGHAVENDRA BURROWS Rep #: [id number] : 1970 54 From: Mk Jc DO PCP: Dr. Harjeet Bernard MD Status:DIS SANNA Location: [place] [address] Providers Date of Admission: 12/15/24 Date of [...] was seen in the emergency room at [facility] for evaluation due to possible dehydration from [...] better. He had been contacted by his primary substance abuse counselor by text but had not been given [...] non-treatment if statin sabine (more content not included)...[facility]03-19-2025 Discharge summary [facility] Medical Records Department [address] [place] [address] Instructions for Home/Discharge Instructions 12/16/24 1118 MR#: [id number] Acct: [id number] Name: RAGHAVENDRA BURROWS Rep #:[id number] : 1970 54 From: Mk Jc DO [...] CC: Dr. Harjeet Bernard MD ~ Signed [facility]03-19-2025 Progress note Author Antonette Perera [facility] Note Date/Time December 16, 2024 1:2 3pm [facility] Medical Records Department [address] [place] [address] Progress Note - Hospitalist 12/16/24 0004 MR#: [id number] Acct: [id number] Name: RAGHAVENDRA BURROWS Rep #:[id number] : 1970 54 From: Antonette Perera MD PCP: Dr. Harjeet Bernard MD Status:AD M SANNA Location: [place] [address] Hospitalist Note Patient with high ostomy output, noted [place] likely caused by this. Will obtain cdiff and enteric to be cautious per discussion with administrative staff supervisor. 12/16/24 0004 <Electronically signed by Antonette Perera MD> Cosigner Signature (if applicable): CC: ~ Signed [facility] Work Phone: 1(298) 663-677003-18-2025 History and physical note Author Mk Browningrain[facility] lake medical centermaryann [facility] Note Date/Time December 15, 2024 4:4 8pm [facility] Medical Records Department [address] [facility] [place] [address] H&P Exam - Hospitalist 12/15/24 1633 MR#: [id number] Acct: [id number] Name: RAGHAVENDRA BURROWS Rep #:[id number] : 1970 54 From: Mk Jc DO PCP: Dr. Harjeet Bernard MD Status:[facility] Location: [place] [address] HPI - General General Date of Admission: 12/15/24 Date of Service: 12/15/24 Chief Complaint: Need for IV fluids HPI Narrative RAGHAVENDRA BURROWS, is a 54 M who presents to the emergency room at [facility] for evaluation due to possible dehydration [...] if this will decrease his ileostomy output. [facility] Medical History Cancer of appendix [...] (Auto) 79.6 H, Lymph % (Auto)7.6 L, Livingston % (Auto) 10.9 H, Eos % (Auto) [...] 70 minutes Charges/Coding Visit Charges Inpatient E&M: 42631 Init Hosp L3 12/15/24 1648 <Electronically signed by Mk Jc DO> Cosigner Signature (if applicable): CC: Dr. Harjeet Bernard MD; Dr. Mk Jc DO~ Signed [facility] Work Phone: 1(392) 344-753803-18-2025 Discharge summary Author Ibrahima Camarena [facility] Note Date/Time December 15, 2024 3:3 6pm [facility] Medical Records Department [address] [place] [address] Emergency Department Summary 12/15/24 MR#: [id number] Acct: [id number] Name: RAGHAVENDRA BURROWS Rep #:[id number] : 1970 54 From: Ibrahima Mcgowan PCP: Dr. Harjeet Bernard MD Status:AD M [facility] Location: [facility] SC363-9 HPI History of Present Illness Chief Complaint: [...] pain. Patient denies any nausea or vomiting. [facility] Medical History Cancer of appendix Ileostomy present Acute appendicitis Home Medications ?Medication ?Instructions ?Recorded ?Last Taken ?Type bupropion HCl 150 mg tablet,12 hr 150 mg PO DAILY 0802/2012/15/24 History sustained-release fluvoxamine 150 mg 150 mg [...] 79.6 H Lymph % (Auto) 7.6 L Livingston % (Auto) 10.9 H Eos % (Auto) [...] MD [Primary Care Provider] - Print Language: Indonesian Disposition Disposition: Acute Care Hospital [facility] What to do if you have Problems For any increased pain, shortness of breath, bleeding, nausea or vomiting, chestpain, or any unexpected problems, contact your Primary Care Provider. Call [facility] ([phone]) or report to the closest Emergency Room. Call 911 if necessary. 12/15/24 1536 <Electronically signed by Ibrahima Camarena DO> Cosigner Signature (if applicable): CC: Dr. Harjeet Bernard MD ~ Signed [facility] Work Phone: 1(974) 390-134403-18-2025 History and physical note [facility] Medical Records Department [address] [place] [address] H&P Exam - Hospitalist 12/15/24 1633 MR#: [id number] Acct: [id number] Name: RAGHAVENDRA BURROWS Rep #:[id number] : 1970 54 From: Mk Jc DO PCP: Dr. Harjeet Bernard MD Status:[facility] Location: [place] [address] HPI - General General Date of Admission: 12/15/24 Date of Service: 12/15/24 Chief Complaint: Need for IV fluids HPI Lizette BURROWS, is a 54 M who presents to the emergency room at [facility] for evaluation due to possible dehydration [...] if this will decrease his ileostomy output. [facility] Medical History Cancer of appendix [...] (Auto) 79.6 H, Lymph % (Auto)7.6 L, [place] % (Auto) 10.9 H, Eos % (Auto) [...] 70 minutes Charges/Coding Visit Charges Inpatient E&M: 79987 Init Hosp L3 12/15/24 3677 Cosigner Signature (if applicable): CC: Dr. Harjeet Bernard MD; Dr. Mk Jc, DO~ Signed [facility]03-18-2025 Discharge summary [facility] Medical Records Department [address] [place] [address] Emergency Department Summary 12/15/24 MR#: [id number] Acct: [id number] Name: RAGHAVENDRA BURROWS Rep #:[id number] : 1970 54 From: Ibrahima Mcgowan PCP: Dr. Harjeet Bernard MD Status:[facility] Location: [place] [address] HPI History of Present Illness Chief Complaint: [...] Patient denies any nausea or vomiting. PFSH PFSH Medical History Cancer of appendix [...] 79.6 H Lymph % (Auto) 7.6 L [place] % (Auto) 10.9 H Eos % (Auto) [...] MD [Primary Care Provider] - Print Language: Indonesian Disposition Disposition: Acute Care Hospital [facility] What to do if you have Problems For any increased pain, shortness of breath, bleeding, nausea or vomiting, chestpain, or any unexpected problems, contact your Primary Care Provider. Call [facility] ([phone]) or report tothe closest Emergency Room. Call 911 if necessary. 12/15/24 1536 Cosigner Signature (if applicable): CC: Dr. Harjeet Bernard MD ~ Signed [facility]03-18-2025 Evaluation note* Diagnosis Onset Date Resolution Status Admit Date Acute kidney injury inactive December 15, 2024 10:18am Dehydration inactive December 15, 025 10:18am [facility] Work Phone: [phone]) 259-640803-17-2025 Telephone encounter Note* Telephone Encounter - Zhanna Wagner LPN - 12/14/2024 2:46 PM EDT Two encounter open on patient. Attempted to contact patient in the other encounter [facility]03-17-2025 Miscellaneous Notes* Telephone Encounter - Zhanna Wagner LPN - 12/14/2024 2:46 PM EDT Two encounter open on patient. Attempted to contact patient in the other encounter * Telephone Encounter - Julissa Ugarte APRN.CNS - 12/14/2024 7:18 AM EDT Noted, will follow up today, endorse ER visit * Telephone Encounter - Junior Ulloa DO - 12/12/2024 1:30 AM EDT Received call from lab at 12:47 AM regarding critical lab value. Patient had a CO2 level of 9. Reviewed his chart and discharge summary he also appeared to have worsening [place] over last week. Called patient and made contact at 1:20 AM. 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 Bernard. Discussed that I was [...] today. Also will forward to PCP. Dr. Junior Ulloa DO [Note transcribed at 6:40 AM due to Epic maintenance at original time] documented in this encounter[facility] Telephone encounter Note * Telephone Encounter - [...] and increased ostomy output. Rowena Angel RN [facility]03-17-2025 Miscellaneous Notes* Telephone Encounter - Rowena Angel [...] 28 (L) 30 (L) documented in this encounterSelect [facility]-2025 Telephone encounter Note * Telephone Encounter - Zhanna Wagner LPN - 12/14/2024 9:01 AM EDT No answer. Left message for patient to call office and ask to speak to a nurse regarding follow up from this past weekend and new lab results and recommendations. [facility]03-17-2025 Note* Addendum Note - Julissa Ugarte APRN.CNS - 12/14/2024 7:29 AM EDTAddended by: JULISSA UGARTE on: 12/14/2024 07:29 AM Modules accepted: Orders [facility]03-17-2025 Telephone encounter Note* Telephone Encounter - Julissa Ugarte APRN.CNS - 12/14/2024 7:18 AM EDT Noted, will follow up today, endorse ER visit [facility] Work Phone: 1(136) 811-212703-17-2025 Telephone encounter Note* Telephone Encounter - Julissa [...] 81 36 (L) 28 (L) 30 (L) [facility]03-15-2025 Telephone encounter Note* Telephone Encounter - Junior Ulloa DO - 12/12/2024 3:20 PM EDT [...] lab, I would call him again. Dr. Junior Ulloa DO [facility] Work Phone: [phone] Miscellaneous Notes* Telephone Encounter - Junior Ulloa DO - 12/12/2024 3:20 PM EDT [...] lab, I would call him again. Dr. Junior Ulloa DO documented in this encounterSelect [facility] Telephone encounter Note * Telephone Encounter - Junior Ulloa DO - 12/12/2024 1:30 AM EDT Received call from lab at 12:47 AM regarding critical lab value. Patient had a CO2 level of 9. Reviewed his chart and discharge summary he also appeared to have worsening [place] over last week. Called patient and made contact at 1:20 AM. 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 Bernard. Discussed that I was [...] today. Also will forward to PCP. Dr. Junior Ulloa DO [Note transcribed at 6:40 AM due to Epic maintenance at original time] [facility] Work Phone: 1(440) 613-363103-13-2025 Telephone encounter Note* Telephone Encounter - Julissa Ugarte APRN.CNS - 12/10/2024 8:36 AM EDT Order in, reach out to Raghavendra [facility] if he does respond today [facility]03-13-2025 Miscellaneous Notes* Telephone Encounter - Julissa Ugarte APRN.CNS - 12/10/2024 8:36 AM EDT Order in, reach out to Raghavendra [facility] if he does respond today [...] advise. Vania Mcpherson MA documented in this encounterSelect [facility]-2025 Telephone encounter Note * Telephone Encounter - [...] a BMP. Please advise. Vania Mcpherson MA [facility]03-10-2025 Progress note* Result Encounter Note - Julissa Ugarte APRN.CNS - 12/07/2024 8:15 AM EDT Elevated BUN and creatinine, endorse increase fluid intake. Recheck BMP 4 days [facility] Work Phone: 1(639) 961-119103-10-2025 Miscellaneous Notes* Result Encounter Note - Julissa Ugarte APRN.CNS - 12/07/2024 8:15 AM EDT Elevated BUN and creatinine, endorse increase fluid intake. Recheck BMP 4 days documented in this encounterSelect [facility] History of Present illness Narrative* Julissa Ugarte [...] and Lump, Unspecified Site Presents for an [facility] hospital follow up visit today. He was [...] continue to monitor. He was seen at [facility] November 27, 2024 for nausea vomiting and [...] scheduled Julissa Ugarte APRN.CNS documented in this encounterSelect [facility]-2025 NoteHNO ID: [id number] Author: JULISSA UGARTE APRN.CNS Service: ? Author [...] and Lump, Unspecified Site Presents for an [facility] hospital follow up visit today. He was [...] continue to monitor. He was seen at [facility] November 27, 2024 for nausea vomiting and [...] that have help to slow output. Hyperlipidemia. First reports doing well on current therapy His [...] deficit present. Mental S (more content not included)...[facility]03-03-2025 Note HNO ID: [id number] Author: LINNEA GARRISON RN Service: ? Author Type: Registered Nurse Type: Progress Notes Filed: 11/30/2024 10:18 Note Text: TRANSITION CARE MANAGEMENT (TCM) INITIAL CONTACT [facility] [employer] [facility] Provider Action/FYI: Patient reports hospital told [...] of Discharge 11/29/2024 SUMMARY: -Pt discharged from [facility] on 11/29/2024. -Admitted for: Dehydration Do you [...] Yes Medical records from recent hospitalization: [facility] History of Present illness Narrative* Linnea Garrison RN - 11/30/2024 10:14 AM EST TRANSITION CARE MANAGEMENT (TCM) INITIAL CONTACT [place] [employer] [facility] Provider Action/FYI: Patient reports hospital told [...] of Discharge 11/29/2024 SUMMARY: -Pt discharged from [facility] on 11/29/2024. -Admitted for: Dehydration Do you [...] recent hospitalization: Care Everywhere documented in this encounterSelect Medical [facility]03-03-2025 NotePatient Outreach (INTMWS) FIRSTRAGHAVENDRA ([id number]) 1970 M Date Time Provider Department 11/30/24 HARJEET BERNARD During your visit today, we recorded the following information about you: Linnea Garrison RN 11/30/2024 10:18 AM Signed TRANSITION CARE MANAGEMENT (TCM) INITIAL CONTACT [employer] [facility] Provider Action/FYI: Patient reports hospital told [...] of Discharge 11/29/2024 SUMMARY: -Pt discharged from [facility] on 11/29/2024. -Admitted for: Dehydration Do you [...] l*01/23/2023 Encounter Status:Closed by LINNEA GARRISON on 11/30/24[facility]03-02-2025 [facility] Medical Records Department [address] [place] [id number] Discharge Summary 11/29/24 0835 MR#: [id number] Acct: [id number] Name: RAGHAVENDRA BURROWS Rep #: [id number] : 1970 54 From: Sara Quezada DO PCP: Dr. Harjeet Bernard MD Status:ADM IN [facility] Providers Date of Admission: 11/27/24 Date of [...] who presented to the emergency department at [facility] with a chief complaint of nausea and [...] rhonchi or wheezes Cardio (more content not included)...[facility]02-28-2025 Evaluation note* Diagnosis Onset Date Resolution Status Admit Date Hypokalemia acute October 3:11pm Acute kidney injury resolved Febru joan 2024 3:11pm Hypotension due to hypovolemia resolved November 27 025 3:11pm Metabolic acidosis resolved Februa ry 2024 3:11pm Nausea, vomiting and diarrhea resolv ed November 27, 2024 3:11pm Acute kidney injury acute December 15, 2024 10:18am Dehydration acute December 15 025 10:18am [facility] Work Phone: 1(891) 953-797802-28-2025 Evaluation note* Diagnosis Onset Date Resolution Status Admit Date Hypokalemia acute October 3:11pm Acute kidney injury resolved Febru joan 2024 3:11pm Hypotension due to hypovolemia resolved November 27, 2 025 3:11pm Metabolic acidosis resolved Februa ry 2024 3:11pm Nausea, vomiting and diarrhea resolv ed November 27, 2024 3:11pm Acute kidney injury inactive December 15, 2024 10:18am Dehydration inactive December 15 025 10:18am [facility] Work Phone: 1(226) 343-340712-23-2024 Telephone encounter Note* Telephone Encounter - Isela Parekh RN - 09/21/2024 3:46 PM EST [...] clip that was placed. Triny verbalized understanding. [facility]12-23-2024 Miscellaneous Notes* Telephone Encounter - Isela Parekh RN - 09/21/2024 3:46 PM EST [...] Callie Hall - 09/21/2024 10:05 AM EST [phone] Triny Patient calling stating he passed the clamp that was put in his ABD in his stoma bag. Wants to makesure this is ok. Patient not in any pain or any issues, did not know it happened until he emptied his bag. documented in this encounterSelect Medical [facility]12-23-2024 Telephone encounter Note * Telephone Encounter - Callie Hall - 09/21/2024 10:05 AM EST Triny Patient calling stating he passed the clamp that was put in his ABD in his stoma bag. Wants to makesure this is ok. Patient not in any pain or any issues, did not know it happened until he emptied his bag. [facility]10-14-2024 History of Present illness Narrative* Nicolasa Denise, - 07/13/2024 1:00 PM EDT COLORECTAL SURGERY VIRTUAL VISIT FOLLOW UP I have communicated my name and active licensure. The patient's identity and physical location wereverified at the time of this visit. Either the patient or their legal leasing representative has been informed of the risks and benefits of -- and alternatives to -- treatment through a remote evaluation andconsents to proceed with the evaluation remotely. I had a virtual visit with Mr. Burrows today for follow up of VARNISHING UNIT OPERATOR. 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 Here today for yearly surveillance 05/15/24 CT CAP C:IMPRESSION: No convincing CT evidence of thoracic metastasis. 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 Medical Decision Making: Assessment Assessment & Diagnosis: Raghavendra Burrows is a 54 year old male with VARNISHING UNIT OPERATOR recurrence PCI 39 Data Reviewed: Tests & Documents Reviewed/ordered: Review of prior notes from medicine Review of prior operative reports Review of Pathology Review of Imaging: CT Abdomen, CT Pelvis Review of Labs: CBC, BMP Review of Procedures / Tests: Colonoscopy I have independently interpreted: CT Abdomen, CT Pelvis, MRI Abdomen I have discussed Raghavendra Burrows's treatment plan and/or results with patient. [...] which included preparing to see the patient, [id number] patient care, completing clinical documentation, obtaining and/or reviewing separately obtained history, performing a medically appropriate examination, counseling and educating the pat ient/family/caregiver, ordering medications, tests, or procedures, communicating with other HCPs (not separately reported), independently interpreting results (not separately reported), communicatingresults to the patient/family/caregiver, and care coordination (not separately reported). documented in this encounterSelect Medical [facility]10-14-2024 NoteHNO ID: [id number] Author: NICOLASA DENISE DO Service: ? Author Type: Physician Type: Progress Notes Filed: 09/01/2024 10:44 Note Text: COLORECTAL SURGERY VIRTUAL VISIT FOLLOW UP I have communicated my name and active licensure. The patient's identity and physical location were verified at the time of this visit. Either the patient or their legal leasing representative has been informed of the risks and benefits of -- and alternatives to -- treatment through a remote evaluation and consents to proceed with the evaluation remotely. I had a virtual visit with Mr. Brurows today for follow up of VARNISHING UNIT OPERATOR. 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 Here today for yearly surveillance 05/15/24 CT CAP C:IMPRESSION: No convincing CT evidence of thoracic metastasis. 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 Medical Decision Making: Assessment Assessment AND Diagnosis: Raghavendra Burrows is a 54 year old male with VARNISHING UNIT OPERATOR recurrence PCI 39 Data Reviewed: Tests AND Documents Reviewed/ordered: Review of prior notes from medicine Review of prior operative reports Review of Pathology Review of Imaging: CT Abdomen, CT Pelvis Review of Labs: CBC, BMP Review of Procedures / Tests: Colonoscopy I have independently interpreted: CT Abdomen, CT Pelvis, MRI Abdomen I have discussed Raghavendra Burrows's treatment plan and/or results with patient. [...] which included preparing to see the patient, [id number] patient care, completing clinical documentation, obtaining and/or reviewing separately obtained history, performing a medically appropriate examination, counseling and educating the patient/family/caregiver, ordering medications, tests, or procedures, communicating with other HCPs (not separately reported), independently interpreting results (not separately reported), communicating results to the patient/family/caregiver, and care coordination (not separately reported). [facility]09-16-2024 NoteHNO ID: [id number] Author: SHEREEN BAUMANN RN Service: ? Author Type: Registered [...] NATALY-FIT Natura Durahesive Flat Cut-to-Fit Skin Barrier (#[id number]), drainable pouch Wearing time: 3-4 days Pouching system evaluation: circumferentially undermined, wider from 3-9 o'clock and nearly leaking at 6 o'clock Recommendations: Skin Care: Apply ConvaTec Stomahesive powder to any areas of skin breakdown PRN until healed. Dust off excess. Pouching system Applied: [place] New Image Convex 2 10/03 Ceraplus Flange with Tape Border #[id number], ceraplus ring, drainable pouch Expected wearing time: 3-4 days Time Increment: 1 hour Shereen Baumann RN, BSN, CWOCN For non-emergent WO Nursing patient care needs - Please place a consult via Epic under ostomy. WOC Nurse Available Hours: M-F: [phone]; Weekends AND Holidays: [phone] For emergent WO Nursing patient care needs - Page #[phone], during available hours only.[facility]09-16-2024 History of Present illness Narrative* Shereen Baumann, RN - 06/15/2024 3:18 PM EDT [...] NATALY-FIT Natura Durahesive Flat Cut-to-Fit Skin Barrier (#[id number]), drainable pouch Wearing time: 3-4 days Pouching system evaluation: circumferentially undermined, wider from 3-9 o'clock and nearly leakingat 6 o'clock Recommendations: Skin Care: Apply ConvaTec Stomahesive powder to any areas of skin breakdown PRN until healed. Dust off excess. Pouching system Applied: Neo New Image Convex 2 10/03 Ceraplus Flange with Tape Border #[id number],ceraplus ring, drainable pouch Expected wearing time: 3-4 days Time Increment: 1 hour Shereen Baumann RN, BSN, CWOCN For non-emergent WOC Nursing patient care needs - Please place a consult via Epic under ostomy. WOC Nurse Available Hours: M-F: [phone]; Weekends & Holidays: [phone] For emergent WOC Nursing patient care needs - Page #[phone], during available hours only. 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 [...] of treatment plan: high documented in this encounterSelect Medical [facility]09-16-2024 NoteHNO ID: [id number] Author: NICOLASA DENISE DO Service: ? 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 [...] mortality and/or complications of treatment plan: high [facility]08-16-2024 Instructions* Patient Instructions* Harjeet Bernard MD [...] panel, and A1C tests. documented in this encounterSelect Medical [facility]08-16-2024 History of Present illness Narrative* Harjeet Bernard MD - 05/15/2024 11:32 AM EDT This note was created using Relevvant. Subjective Raghavendra Burrows is a 54 year old male. Patient presents with: F/U 6 months SUBJECTIVE: Raghavendra Burrows is a 54 year old year [...] Lymph 1.00 - 4.00 k/uL 1.21 1.71 [place]% % 22.2 11.3 Abs [place] <0.87 k/uL 1.48 (H) 1.15 (H) Eosin% [...] adherence. Harjeet Bernard MD documented in this encounterSelect Medical [facility]08-16-2024 History of Present illness Narrative* Noemí Castano, RT(R) - 05/15/2024 10:00 AM EDT Radiology [...] PATIENT PRESENTS WITH AN IMPLANTABLE OR ATTACHED TURNING SANDER OPERATOR: No ALLERGIES: Reviewed and unchanged CONTRAST ALLERGY: [...] Abdomen Pelvis SIGNATURE: RT Dick(R) PATIENT NAME: Raghavendra Zepeda First DATE: May 15, 2024 TIME: 2:35 PM documented in this encounterSelect Medical [facility]08-08-2024 Telephone encounter Note * Telephone Encounter - Isela Parekh RN - 05/07/2024 1:49 PM EDT I discussed concerns with triny. For surveillance we would still need CT C as well. He said he will go to appt at [facility] and get the imaging done as planned. Pt verbalizes understanding and thanked me for the call. [facility]08-08-2024 Miscellaneous Notes* Telephone Encounter - Isela Parekh RN - 05/07/2024 1:49 PM EDT I discussed concerns with triny. For surveillance we would still need CT C as well. He said he will go to appt at [facility] and get the imaging done as planned. Pt verbalizes understanding and thanked me for the call. * Telephone Encounter - Callie Hall - 05/07/2024 12:59 PM EDT Triny Patient calling to make sure that his CT ABD PEL he got on 05/04/24 at [facility] is ok and he does not need to keep the appointment for next Saturday at [facility]. Images and reports here. documented in this encounterSelect Medical [facility]08-08-2024 Telephone encounter Note * Telephone Encounter - Callie Hall - 05/07/2024 12:59 PM EDT Triny Patient calling to make sure that his CT ABD PEL he got on 05/04/24 at [facility] is ok and he does not need to keep the appointment for next Saturday at [facility]. Images and reports here. [facility]-2024 Telephone encounter Note* Telephone Encounter - Dorinda Saenz RN - 04/13/2024 2:09 PM EDT SPECIALTY CARE COORDINATION FOLLOW-UP NOTE Called patient. Order placed. Dorinda Saenz RN April 13, 2024 [facility]-15-2024 Miscellaneous Notes* Telephone Encounter - Dorinda Saenz RN - 04/13/2024 2:09 PM EDT SPECIALTY CARE COORDINATION FOLLOW-UP NOTE Called patient. Order placed. Dorinda Saenz RN April 13, 2024 * Telephone Encounter - Callie Hall - 04/13/2024 1:48 PM EDT Triny Patient needs his yearly CT C/ABD/PEL order placed for his follow up with Dr. Denise on 06/15/24 documented in this encounterSelect Medical [facility]07-15-2024 Telephone encounter Note * Telephone Encounter - Callie Hall - 04/13/2024 1:48 PM EDT Triny Patient needs his yearly CT C/ABD/PEL order placed for his follow up with Dr. Denise on 06/15/24 [facility] Telephone encounter Note* Telephone Encounter - Joan Alcala - 03/23/2024 1:45 PM EDT Patient has been identified by name and date of : Yes Patient phones for refill(s): Bupropion SR - Wellbutrin 150 mg- not in current refill list. Date of last office visit in primary care: 10/08/2023 Date of next office visit in primary care: 04/13/2024 Please advise. Thank you. Joan Alcala. [facility]24 Miscellaneous Notes* Telephone Encounter - Joan Alcala [...] Thank you. Joan Alcala. 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 OSTOMY SUPPLY ORDER FORM Pouch: ConvaTec: 1 Nataly-Fit Natura + Invisiclose, transparent, w/ filter #[id number] 30 day use - 1 Box Wafer: ConvaTec: Nataly-Fit Natura 1 3/4 Flat Durahesive # [id number] 30 day use - 1 Box Moldable Ring: Neo CeraRing Regular # 8805 30 day use - 1 Box Paste: ConvaTec Stomahesive # 127358 30 day use - 1 Tube Powder: ConvaTec Stomahesive # 89846 30 day use - 1 Bottle Skin Barrier: Neo Hollihesive 4x4 5/box #7700 30 day use - 1 Box Skin Sealant: 3M Cavilon No Sting, 50/Box #3342 30 day use - 1 Box Hu Hope Flat panel support belt, cool comfort, beige, size XL, with blue 2 1/4 stoma opening Cat# [id number] Refills: 11 Attending Physician: Dr. Denise For immediate authorization, please contact the physician s office. [facility] Nurse: Nereida Escalona RN, BSN, CWOCN, CWS SIGNATURE: Nereida Escalona RN PATIENT NAME: Raghavendra Burrows DATE: January 22, 2024 TIME: 9:48 AM CONTACT #: [phone] * Nereida Escalona RN - 01/22/2024 9:32 AM EDT ET/WOCN Nursing Consult Topic: ET/WOCN Consultation Note Outcome: Patient here for outpatient ostomy visit with concerns of skin irritation to peristomal area. Patient reports using [employer] for supplies, was using precut pouches, Convatec durahesive flange. Has plenty of supplies at home but would like a new order form sent to [employer]. Also requests another Nu hope belt. He [...] with any issues. Faxed order form to [employer]. Next Scheduled Visit: as needed Assessment: Stoma [...] Sensi Care No Sting Adhesive Remover wipes (#619405) to gently release the worn pouch from the skin. 2. Apply ConvaTec Stomahesive powder (#59822) to denuded/irritated skin as needed with each pouch change until healed. [place] off loose powder from intact skin prior to pouching. Pouching System Applied: Hollihesive triangle washer with keyhole, wrapped around stoma, ConvaTec Durahesive 2 1/4 flat flange, smear of paste to aperture, drainable pouch Wear Time Goal: 3-4 days Time Increment: 1 hour 15 minutes Nereida Escalona RN, BSN, CWOCN, CWS documented in this encounterSelect Medical [facility]04-17-2024 Miscellaneous Notes* Telephone Encounter - Parris Mallory RN - 01/15/2024 6:16 PM EDT [facility] nursing returned patient message regarding: Pt has a wound next to his stoma. He would like an appointment with [facility] Nursing out-pt clinic to have it assessed. Left Message: No- spoke directly to pt Information/Recommendations provided regarding: Appointment scheduled for 01/22/24 at 8:15 am. Pt agreed with this time/date. Time spent: 15 minutes VIKY Izaguirre, RN, CWOCN For non-emergent WO Nursing patient care needs - Please place a consult via Epic under ostomy. [facility] Nurse Available Hours: M-F: [phone]; Weekends & Holidays: [phone] For emergent WO Nursing patient care needs - Page #[phone], during available hours only. * Telephone Encounter - Rylee Angel PCNA - 01/15/2024 4:50 PM EDT Patient would like to speak to a stoma nurse, has a sore draining that is affecting his seal. Call back# [phone] Thank you, Rylee Angel Coordinator II [facility] nursing documented in this encounterSelect Medical [facility]02-12-2024 History of Present illness Narrative* Harjeet Bernard MD - 11/11/2023 6:35 PM EST VIRTUAL VISIT PROGRESS NOTE This is a virtual visit using Doblethart Zoom Video Visit. It required patient- provider interaction for the medical decision making as documented below. I have communicated my name and active licensure. The patient's identity and physical location wereverified at the time of this visit. Either the patient or their legal leasing representative has been informed of the risks and benefits of -- and alternatives to -- treatment through a remote evaluation andconsents to proceed with the evaluation remotely. Raghavendra Burrows is a 53 year old male seen for follow up on medication changes. At 10/08/22 appointment, switched to Luvox to help with some OCD type symptoms contributing to depression and anger issues. From 10/08/23 appointment: SUBJECTIVE: Raghavendra Burrows is a 53 year old year [...] file for this visit. documented in this encounterSelect Medical [facility]09-25-2023 History of Present illness Narrative* Claire Wick RN - 06/24/2023 2:27 PM EDT ET/WOCN Nursing Consult Topic: ET/WOCN Consultation Note ET Outcome: Patient here to see Dr. Denise today, states that he just changed his pouch this morning and does not need it changed. He requests to see the WO team because his hernia belt that he is wearing is too small because he has gained weight. Measurements taken today, and an updated prescription was fax[facility] to [facility]. Stoma as viewed through pouch is red, moist, and healthy appearing. Current pouching system: Pouch: ConvaTec: 1 Nataly-Fit Natura + Invisiclose, transparent, w/ filter #[id number] Wafer: ConvaTec: Nataly-Fit Natura Convex-It precut 1 10/07 Durahesive # 584356 Moldable Ring: Coloplast Brava 4.2mm Moldable # 924134 Paste: Coloplast Brava Strip Paste # [id number] (applies to transverse crease, inferior to stoma as needed) Powder: ConvaTec Stomahesive # 72402 30 day use - 1 Bottle Skin Sealant: 3M No Sting, 30/Box # 3344 30 day use - 1 Box Waist measurements today: 43 Supine position for 5 minutes 44 Standing Calculated measurements for Nu-Hope Flat Panel Support Belt [id number] ET's Next Scheduled Visit: As needed Time Increment: 45 minutes Claire Wick RN (Terri), BSN, CWOCN The [address] [address] Patient: Raghavendra Burrows Patient Address: [address] [place] [address] [place] [address] Preferred Gender: male Date of : 1970 Type of Stoma: End 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 Denise For immediate authorization, please contact the physician s office. [facility] Nurse: VIKY Vragas (Terri), CWOCN SIGNATURE: Claire Wick RN PATIENT NAME: Raghavendra Burrows DATE: June 24, 2023 TIME: 2:50 PM CONTACT #: [phone] documented in this encounterSelect Medical [facility]08-18-2023 History of Present illness Narrative* Noemí Castano RT(R) - 05/17/2023 11:20 AM EDT Radiology [...] Abdomen Pelvis SIGNATURE: RT Dick(R) PATIENT NAME: Raghavendra Zepeda First DATE: May 17, 2023 TIME: 1:38 PM documented in this encounterSelect Medical [facility]08-15-2023 Miscellaneous Notes* Telephone Encounter - Patricia Padron MA - 05/14/2023 9:47 AM EDT Order for CPAP supplies [facility]ed to [facility] at [phone]. Patricia Padron MA documented in this encounterSelect Medical [facility]07-07-2023 Instructions* Patient Instructions* Harjeet Bernard MD - 04/05/2023 10:21 AM EDT Use Ivory soap instead of wet wipes for stoma care. If still not able to stay sticky then consider asking for trial on [place] brand. documented in this encounterSelect Medical [facility]07-07-2023 History of Present illness Narrative* Harjeet Bernard MD - 04/05/2023 10:06 AM EDT This note was created using Redbeaconter. Subjective Raghavendra Burrows is a 52 year old male. Patient presents with: F/U 6 months SUBJECTIVE: Raghavendra Burrows is a 52 year old year old gentleman here today for follow up appointment for reviewof medical conditions. Needs to get DME supplier for APAP changed to [employer] (from [employer]) where gets other DME supplies. Uses APAP [...] Abs Lymph 1.00 - 4.00 k/uL 1.71 [place]% % 11.3 Abs [place] <0.87 k/uL 1.15 (H) Eosin% % 2.1 [...] major depressive disorder, in partial remission ([facility]) F33.41 sertraline (ZOLOFT) 100 mg tablet Overall doing okay 2. AMBROSE on CPAP G47.33 CPAP 3. [address] ([facility]) Z93.2 Above issues addressed with patient. Patient [...] instructions. [facility] As noted in HPI: Needs to get DME supplier for APAP changed to [employer] (from [employer]) where gets other DME supplies. Uses APAP nightly and benefits from use. Will needs supplies in the next 2 to 3 weeks. Harjeet Bernard MD documented in this encounterSelect Medical [facility]05-17-2023 Miscellaneous Notes* Telephone Encounter - Babita Martinez [...] you. Babita Martinez LPN documented in this encounterSelect Medical [facility]04-12-2023 Instructions* Patient Instructions* Beckie Eaton DO - [...] _Leg pain or swelling documented in this encounterSelect Medical [facility]04-12-2023 History of Present illness Narrative* Beckie Eaton DO - 01/09/2023 3:30 PM EDT Images from the original note were not included. 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 The patient's identity and physical location wereverified at the time of this visit. Either the patient or their legal leasing representative has been informed of the risks and benefits of -- and alternatives to -- treatment through a remote evaluation andconsents to proceed with the evaluation remotely. I had a virtual visit with Mr. Burrows today for follow up.. UPDATED HISTORY: Raghavendra Burrows is a 52 year old male [...] visit. Either the patient or their legal leasing representative has been informed of the risks and benefits of -- and alternatives to -- treatment through a remote evaluation andconsents to proceed with the evaluation remotely. Medical Decision Making: Assessment Assessment & Diagnosis: Raghavendra Burrows is a 52 year old male [...] CT Pelvis, CT Chest I have discussed Raghavendra Burrows's treatment plan and/or results with patient. [...] which included preparing to see the patient, [id number] patient care, completing clinical documentation, obtaining and/or reviewing separately obtained history, performing a medically appropriate examination, counseling and educating the pat ient/family/caregiver, ordering medications, tests, or procedures, communicating with other HCPs (not separately reported), independently interpreting results (not separately reported), communicatingresults to the patient/family/caregiver, and care coordination (not separately reported). documented in this encounterSelect Medical [facility]03-22-2023 History of Present illness Narrative* Nicolasa Denise DO - 12/19/2022 10:00 AM EDT No visit documented in this encounterSelect Medical Ohio[facility]03-20-2023 History of Present illness Narrative* Nicolasa Denise DO - 12/17/2022 1:00 PM EDT No visit documented in this encounterSelect Medical Ohio[facility] [place]02-22-2023 Miscellaneous Notes* Telephone Encounter - Mary Dotson RN - 11/21/2022 4:44 PM EST Called pt back and told him a prior authorization was needed and the school secretary was given the information needed [facility] [...] 11/21/2022 3:22 PM EST November 21, 2022 [id number] Patient Name: Raghavendra Zepeda First Contact Information: [phone] (home) [phone] (cell) Reason For Call: Patient called to ask what is going on with his Lovenox, he stated that he was told that his insurance will not pay for it; he has been without a blood thinner for a week. [facility] and was told that the medication needs a prior auth, pharmacist provided me with the information. [facility] is currently pending and takes 24 hrs for a response. I will check later, but patient is without a blood thinner Physician:Beckie Eaton DO documented in this encounterSelect Medical Ohiohealth [facility]02-15-2023 Miscellaneous Notes* Telephone Encounter - Audrey Weston - 11/14/2022 11:55 AM EST November 14, 2022 [id number] Patient Name: Raghavendra Zepeda First Contact Information: [phone] (home) [phone] (cell) Call from patient requesting refill. He has only 1 left. Had to reschedule his office visit until December. Requested Prescriptions Pending Prescriptions Disp Refills enoxaparin (LOVENOX) 80 mg/0.8 mL 180 Each 3 Sig: Inject 0.8 mL subcutaneously twice daily. Inject entire contents of one(1) syringe Patient last seen 07/2022 Audrey Weston documented in this encounterSelect Medical Ohio[facility]02-06-2023 History of Present illness Narrative* Nicolasa Denise, DO - 11/05/2022 10:20 AM EST COLORECTAL SURGERY Follow-up November 02, 2022 Chief complaint: healed gastric fistula HPI: Raghavendra Burrows is a 52 year old male [...] Assessment Medical Decision Making: Assessment & Diagnosis: Raghavendra Burrows is a 52 year old male with a now healed gastric fistula following clipping by general surgery colleagues. The gastric fistula occurred following complex CRS/HIPEC for LAMN. Data Reviewed: Tests & Documents Reviewed/ordered: Review of prior notes from general surgery colleagues Review of Imaging: Abnormal X-Rays I have independently interpreted: Abnormal X-Rays I have discussed Raghavendra Burrows's treatment plan and/or results with the [...] of treatment plan: moderate documented in this encounterSelect Medical [facility]01-20-2023 History of Present illness Narrative* Jose Waite [...] leakage SIGNATURE: Jose Waite PA-C PATIENT NAME: Raghavendra Zepeda First DATE: October 19, 2022 TIME: 1:56 PM documented in this encounterSelect Medical Ohio[facility]01-16-2023 History of Present illness Narrative* Harjeet Bernard MD - 10/15/2022 5:08 PM EST This note was created using LinkCloudriter. Subjective Raghavendra Burrows is a 52 year old male. Patient presents with: F/U 6 months SUBJECTIVE: Raghavendra Burrows is a 52 year old year [...] uses routinely. 4. Ileostomy in place ([facility]) Z93.2 5. Encounter for long-term current use [...] the date of the service which included ybth-tt-rvmu patient care, completing clinical documentation, obtaining and/or reviewing separately obtained history, performing a medically appropriate examination, counseling and educating the patient/family/caregiver, and ordering medications, tests, or procedures. Harjeet Bernard MD documented in this encounterSelect Medical Ohio[facility]01-04-2023 Miscellaneous Notes* Telephone Encounter - Isela Chávez RN - 10/03/2022 1:26 PM EST Discussed with Dr. Denise. Per patient: drain is still in place, and draining, the y port to flush has broken off. Dr. Denise would like to make sure this is draining and requested a pic of drain to be sent. I discussed with patient they will send through mychart. * Telephone Encounter - Callie Isabel - 10/02/2022 9:12 AM EST Y drain broke over the weekend. Still able to drain but wants to know what he should do. States theY part with the clamp broke off. [phone] documented in this encounterSelect Medical [facility]12-30-2022 History and physical note * Monroe Maloney [...] N/A SIGNATURE: Jovany Mosley MD PATIENT NAME: Raghavendra Zepeda First DATE: September 28, 2022 TIME: 12:05 PM Attending Note I evaluated the patient and personally participated in the gallagher components. I agree with the resident's findings and plan as documented and have discussed the case and management of the patient's carewith the resident. Signature: Monroe Maloney MD Date: 09/28/2022 Time: 12:43 PM documented in this encounterSelect Medical Ohio[facility]12-16-2022 History of Present illness Narrative* Nicolasa Denise DO - 09/14/2022 9:40 AM EST COLORECTAL SURGERY Follow-up September 05, 2022 Chief complaint: drain follow HPI: Raghavendra Burrows is a 52 year old male [...] Assessment Medical Decision Making: Assessment & Diagnosis: Raghavendra Burrows is a 52 year old male [...] CT Abdomen, CT Pelvis I have discussed Raghavendra Burrows's treatment plan and/or results with patient [...] of treatment plan: high documented in this encounterSelect Medical [facility]12-16-2022 History of Present illness Narrative* Shavonne Augustin, RT(R) - 09/14/2022 8:20 AM EST Radiology Service Progress Note PATIENT NAME: Raghavendra Burrows DATE OF SERVICE: September 14, 2022 [...] 14, 2022 8:44 AM documented in this encounterSelect Medical [facility]12-02-2022 Miscellaneous Notes* Telephone Encounter - Callie Hall - 08/31/2022 11:14 AM EST Pt. Calling stating he needs a letter stating why he is still out of work and unable to return to work [phone] ATTN: Richy Arnold (STD) phone number: [phone] *Letter sent at 3:30 pm documented in this encounterSelect Medical [facility]11-28-2022 History of Present illness Narrative* Nicolasa Denise DO - 08/27/2022 9:40 AM EST COLORECTAL SURGERY Follow-up August 27, 2022 Chief complaint: s/p HIPEC HPI: Raghavendra Burrows is a 52 year old male [...] Assessment Medical Decision Making: Assessment & Diagnosis: Raghavendra Burrows is a 52 year old male [...] CT Pelvis, Abnormal X-Rays I have discussed Raghavendra Burrows's treatment plan and/or results with patient [...] of treatment plan: high documented in this encounterSelect Medical [facility]11-14-2022 Miscellaneous Notes* Telephone Encounter - Isela Chávez RN - 08/13/2022 4:33 PM EST [...] moved since he noticed it came loose. [phone] documented in this encounterSelect Medical [facility]11-02-2022 History of Present illness Narrative* Beckie Eaton, DO - 08/01/2022 12:15 PM EDT Images from the original note were not included. [facility] [place] [facility] Department of Cardiovascular Medicine SECTION [...] PRN Beckie Eaton DO documented in this encounterSelect Medical [facility]10-31-2022 History of Present illness Narrative* Amanda Camargo RN - 07/30/2022 11:34 AM EDT [facility] [place] [id number] Patient: Raghavendra Burrows Patient Address: [address] [place] [address] [place] [address] Preferred Gender: male Date of : 1970 Type of Stoma: End Ileostomy Diagnosis: Low-grade mucinous neoplasm of the appendix: OSTOMY SUPPLY ORDER FORM [facility] Accessories: 1 10/03 ConvaTec Convex Insert 1 12/01 Wafer # [id number] 30 day use - 2 Boxes Other: NuHope support belt [id number] 2 per year Refills: 11 Attending Physician: Dr. Denise For immediate authorization, please contact the physician s office. [facility] Nurse: VIKY Levine, CWOCN SIGNATURE: Amanda Camargo RN PATIENT NAME: Raghavendra Burrows DATE: July 30, 2022 TIME: 11:34 AM CONTACT #: [phone] EMAIL: [email or web address] * Amanda Camargo RN - 07/30/2022 11:21 AM EDT ET/WOCN Nursing Consult Topic: ET/WOCN Consultation Note ET Outcome: Patient seen today for follow up appointment with Dr Denise. Patient denies any issueswith his current pouching system. Upon assessment circumferential undermining noted. Pouching system slightly modified, convex insert added. Patient given supplies. [facility] Patient also requesting to be fit for a NuHope support belt. Measurements are 36.5 lying, 36 standing,5 width belt, order number is [id number]. Patient was fit and order was added to his order form for [employer]. ET's Next Scheduled Visit: as needed Stoma Type: End ileostomy Diameter:10/07 Location: RUQ Protrusion: Budded Mucosal condition and color: Red and moist Mucocutaneous junction Intact Peristomal Skin: Clear and intact Location of Skin Impairment: N/A Peristomal contour: Rounded with dip from 3-9 o'clock Supportive Tissue: Semisoft Character of output: soft brown liquid Emptying frequency per day: varies Current pouching system: Removed: 12/01 Surfit Natura solid flat Durahesive flange with Coloplast 4.2mm Brava ring and Drainable pouch Current wearing time: 3 days Recommendations: Skin Care: Stomahesive powder dusted to skin followed by Cavilon skin prep Pouching System: Applied: 12/01 Surfit Natura solid flat Durahesive flange with 1 10/03 convex insert, Coloplast 4.2mm Brava ring and Drainable pouch Comment: 4 inserts given Time Increment: 45 minutes Amanda Camargo RN BSN CWOCN on-call pager [phone] M-F 8-4, weekends -3 documented in this encounterSelect Medical [facility]10-31-2022 History of Present illness Narrative* Nicolasa Denise, - 07/30/2022 10:00 AM EDT COLORECTAL SURGERY Follow-up July 26, 2022 Chief complaint: Follow-up after drain study HPI: Raghavendra Burrows is a 52 year old male [...] Assessment Medical Decision Making: Assessment & Diagnosis: Raghavendra Burrows is a 52 year old male s/p complex CRS/HIPEC Data Reviewed: Tests & Documents Reviewed/ordered: Review of prior notes from pcp Review of prior operative reports Review of Pathology Review of Imaging: CT Abdomen, CT Pelvis Review of Labs: CBC Review of Procedures / Tests: drain injection study I have independently interpreted: CT Abdomen, CT Pelvis I have discussed Raghavendra Burrows's treatment plan and/or results with patient. Treatment plan: Keep drain Doing very well overall Improving nutrition Will address drain/gastric area with repeat Ct scans in future; may slowly dc drain as well I have confirmed and edited as necessary, the PFSH and ROS obtained by others.' Risk of morbidity, mortality and/or complications of treatment plan: high documented in this encounterSelect Medical [facility]10-27-2022 Nurse Note* Amanda Solorzano Adm Asst I - 07/26/2022 10:29 AM EDT Per orders of will stop as planned- he has enough IV abx until Saturday 07/28. Home carenurse Ok to pull out picc on Saturday if home care is able to do so. IF not, Saturday is fine. Message sent to Pharmacy. Amanda Solorzano Adm Asst I documented in this encounterSelect Medical [facility]10-27-2022 History of Present illness Narrative* Silvana Herrera MD - 07/26/2022 10:00 AM EDT VIRTUAL VISIT PROGRESS NOTE This is a virtual visit using [employer] video visit. It required patient-provider interaction for themedical decision making as documented below. Raghavendra Burrows is a 52 year old male [...] which included preparing to see the patient, yqxi-qg-ehaz patient care, and completing clinical documentation Silvana Herrera MD documented in this encounterSelect Medical [facility]10-21-2022 History of Present illness Narrative* Graciela Weeks RN - 07/20/2022 3:14 PM EDT TRANSITION CARE MANAGEMENT (TCM) FOLLOW-UP NOTE Provider Action/FYI: Attempted to reach patient. Unable to reach patient. Left message. Summary: SUMMARY: Pt discharged from [facility] on 06/28/22. Admitted for: Mass of appendix Concerns: Unable to reach patient. Left message. Application 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 plan for next outreach: No further follow up needed at this time Signature Graciela Weeks RN July 20, 2022 documented in this encounterSelect Medical [facility]10-20-2022 Nurse Note* Amanda Danielson RN - 07/19/2022 [...] LPN In Department: GASTROENTEROLOGY documented in this encounterSelect Medical [facility]10-14-2022 History of Present illness Narrative* Graciela Weeks [...] 07/19/2022 1:00 PM HANNAH MCNAIR Mn Q [facility] [phone] 07/19/2022 1:00 PM MC ENDO Q3R3 Mn Q [facility] [phone] 07/26/2022 10:00 AM SILVANA HERRERA G [facility] [phone] 07/30/2022 10:00 AM NICOLASA DENISE Mn A [facility] [phone] 08/01/2022 12:15 PM BECKIE EATON [facility] [phone] Patient identified by name and date of : YES Spoke to patient Summary: SUMMARY: Pt discharged from [facility] on 06/28/22. Admitted for: Mass of [...] collections x2 Concerns: Denies needs or concerns Application 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 plan for next outreach: No further follow up needed at this time Signature Graciela Weeks RN July 13, 2022 documented in this encounterSelect Medical [facility]10-13-2022 Miscellaneous Notes* Telephone Encounter - Niraj Miller [...] have family/friend present for procedure transport home:Patient/patient leasing representative was told that if they do [...] area. Any barriers to Patient learning: Patient/Patient Extension Worker responded appropriately on phone. Type of instruction given: Verbal by telephone contact. NIRAJ Miller RN documented in this encounterSelect Medical [facility]10-12-2022 Nurse Note* Amanda Solorzano Adm Asst I - 07/11/2022 4:05 PM EDT Per orders of maintain picc, may need to restart IV antibiotics. Further orders to follow. Message sent to Pharmacy. Amanda Solorzano Adm Asst I documented in this [facility]10-12-2022 Miscellaneous Notes* Telephone Encounter - Silvana Herrera MD - 07/11/2022 3:05 PM EDT Called patient. Will discuss with Dr. Denise. documented in this [facility]10-11-2022 History of Present illness Narrative* RT Yoana(R) - 07/10/2022 3:20 PM EDT Radiology Service Progress Note PATIENT NAME: Raghavendra Burrows DATE OF SERVICE: July 10, 2022 [...] 10, 2022 3:00 PM documented in this [facility]10-10-2022 Miscellaneous Notes* Telephone Encounter - Liseth [...] the GI team. * Telephone Encounter - Shwetha Rai - 07/09/2022 11:42 AM EDT July 09, 2022 Patient Contact Number: [phone] (home) [phone] (cell) Patient last seen within the last [...] within the next three business days. Yes Shwetha Rai documented in this encounterSelect Medical [facility]10-10-2022 Instructions* Patient Instructions* Silvana Herrera MD - 07/09/2022 11:18 AM EDT Vascular Medicine recs: -continue lovenox 1mg/kg injections twice daily -follow up with vascular medicine in 3-4 weeks for continued anticoagulation management and monitoring. (Tentatively August 01 video visit per their office, if this does not appear in [facility] [employer] by next week please call Dr. Beckie Eaton office at [phone]) documented in this encounterSelect Medical [facility]10-10-2022 History of Present illness Narrative* Silvana Herrera MD - 07/09/2022 11:00 AM EDT Raghavendra Burrows is a 52 year old male [...] , filters, tubing, humidifier and lifetime supplies. AMBORSE G47.33 (Patient not taking: Reported on 07/09/2022) [...] Abs Lymph 1.00 - 4.00 k/uL 1.21 [place]% % 22.2 Abs [place] <0.87 k/uL 1.48 (H) Eosin% % 1.1 [...] locally Silvana Herrera MD documented in this encounterSelect Medical [facility]10-10-2022 History of Present illness Narrative* Gail Kauffman RN - 07/09/2022 10:06 AM EDT ET/WOCN Nursing Consult Topic: ET/WOCN Consultation Note ET Outcome: The patient is here to see Dr. Denise and [facility] nursing. The pouching system is working well for him. Provided information on supportive bands or wraps from [employer]. ET's Next Scheduled Visit: as needed Stoma Type: End ileostomy Diameter:10/07 Location: RUQ Protrusion: Budded Mucosal condition and color: Red and moist Mucocutaneous junction Intact Peristomal Skin: Clear and intact Location of Skin Impairment: n/a Peristomal contour: Flat Supportive Tissue: Semisoft Character of output: thick output Emptying frequency per day: 3 times Current pouching system: 12/01 Surfit Natura solid flat Durahesive flange [...] 45 minutes Gail Kauffman RN, BSN, CWOCN Car Sweeper Pager [phone] (M-F 7-4 and 7-3 on weekends) documented in this encounterSelect Medical [facility]10-10-2022 History of Present illness Narrative* Nicolasa Denise, - 07/09/2022 8:40 AM EDT COLORECTAL SURGERY Follow-up July 06, 2022 Chief complaint: postop cytoreduction and HIPEC. HPI: Raghavendra Burrows is a 52 year old male [...] Assessment Medical Decision Making: Assessment & Diagnosis: Raghavendra Burrows is a 52 year old male [...] CT Abdomen, CT Pelvis I have discussed Raghavendra Burrows's treatment plan and/or results with him [...] of treatment plan: high documented in this encounterSelect Medical [facility]10-08-2022 History of Present illness Narrative* Graciela Weeks [...] Dept Phone 07/09/2022 8:40 AM NICOLASA DENISE [facility] [phone] 07/09/2022 10:15 AM STOMA THERAPY Kandis A [facility] [phone] 07/09/2022 11:00 AM SILVANA HERRERA G [facility] [phone] 07/19/2022 1:00 PM HANNAH MCNAIR Q dg [phone] 07/19/2022 1:00 PM MC ENDO Q3R3 Mn Q [facility] [phone] 08/01/2022 12:15 PM BECKIE EATON J [facility] [phone] Patient identified by name and date of : YES Spoke to patient Summary: Pt discharged from [facility] on 06/28/22. Admitted for: Mass of [...] Mitomycin C Concerns: Denies needs or concerns Application 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 plan for next outreach: No further follow up needed at this time Signature Graciela Weeks RN July 07, 2022 documented in this encounterSelect Medical [facility]10-04-2022 Nurse Note* Dmitriy Starks RN - 07/03/2022 11:18 AM EDT Orders received from Dr Herrera to extend COPAT to July 09, 2022 . Dmitriy Starks RN documented in this encounterSelect Medical [facility]09-30-2022 History of Present illness Narrative* Graciela Weeks RN - 06/29/2022 1:06 PM EDT TCM Home Visit Referral Source [facility] Stratification: [facility] Admission Status: Discharged Readmission Risk Score: [...] Dept Phone 07/09/2022 8:40 AM NICOLASA DENISE [facility] [phone] 07/09/2022 10:15 AM STOMA THERAPY Kandis Serrano [facility] [phone] 07/09/2022 11:00 AM SILVANA HERRERA [facility] [phone] 07/19/2022 1:00 PM CASSANDRA MCNAIRGERHARDJOANNE Jack [facility] [phone] 07/19/2022 1:00 PM ELIEZER ENDO Q3R3 [facility] B[facility] [phone] 08/01/2022 12:15 PM BECKIE EATON Mn J Bldg [phone] Home Health Care Agency [facility] Start of Care 06/29/22 Home [facility]fusion [facility] Agency [facility] Phone/Fax P: F:[phone] Start of Care 06/28/22 SUMMARY: [facility]. Admitted for: Mass of appendix [...] RN and I am calling from the [facility] on behalf of your PCP, Harjeet Bernard [...] like to speak with a social work steam clean machine operator to help give you support for any [...] I will send your request to a space scheduler who will contact and assist you [...] possible). Graciela Weeks RN documented in this encounterSelect Medical [facility]health [facility]09-15-2022 Miscellaneous Notes* Telephone Encounter - Rowena Angel RN - 06/14/2022 11:30 AM EDT Nora from [facility] calls and notified that provider will follow home health orders. Rowena Angel RN * Telephone Encounter - Harjeet Bernard MD - 06/13/2022 7:28 PM EDT Will follow for HH orders * Telephone Encounter - Kiya Bland RN - 06/13/2022 2:13 PM EDT Nora @ [facility] calling to let PCP know patient is being discharged from [facility] on 06/15 with home health orders for nursing and PT. Patient has been hospitalized for surgery for exploratory laparotomy and tumor debulking. She is asking if agree to follow home health orders? Kiya Bland RN [facility] History of Past illness Narrative* Problem Noted [...] EBL Bedside TTE is hyperdynamic, collapsed IVC. [place] with SVRI of 3600 Repeat bedside echo [...] of this encounter (statuses as of 06/29/2022) [facility] History of Past illness Narrative* Problem Noted [...] EBL Bedside TTE is hyperdynamic, collapsed IVC. [employer] [place] with SVRI of 3600 Repeat bedside echo [...] of this encounter (statuses as of 07/03/2022) [facility] History of Past illness Narrative* Problem Noted [...] EBL Bedside TTE is hyperdynamic, collapsed IVC. [employer] [place] with SVRI of 3600 Repeat bedside echo [...] of this encounter (statuses as of 07/07/2022) [facility] History of Past illness Narrative* Problem Noted [...] EBL Bedside TTE is hyperdynamic, collapsed IVC. [employer] [place] with SVRI of 3600 Repeat bedside echo [...] of this encounter (statuses as of 07/09/2022) [facility] History of Past illness Narrative* Problem Noted [...] EBL Bedside TTE is hyperdynamic, collapsed IVC. [employer] [place] with SVRI of 3600 Repeat bedside echo [...] of this encounter (statuses as of 07/09/2022) [facility] History of Past illness Narrative* Problem Noted [...] EBL Bedside TTE is hyperdynamic, collapsed IVC. [employer] [place] with SVRI of 3600 Repeat bedside echo [...] of this encounter (statuses as of 07/11/2022) [facility] History of Past illness Narrative* Problem Noted [...] EBL Bedside TTE is hyperdynamic, collapsed IVC. [place] with SVRI of 3600 Repeat bedside echo [...] of this encounter (statuses as of 07/11/2022) [facility] History of Past illness Narrative* Problem Noted [...] EBL Bedside TTE is hyperdynamic, collapsed IVC. [employer] [place] with SVRI of 3600 Repeat bedside echo [...] of this encounter (statuses as of 07/12/2022) [facility] History of Past illness Narrative* Problem Noted [...] EBL Bedside TTE is hyperdynamic, collapsed IVC. [employer] [place] with SVRI of 3600 Repeat bedside echo [...] of this encounter (statuses as of 07/13/2022) [facility] History of Past illness Narrative* Problem Noted [...] EBL Bedside TTE is hyperdynamic, collapsed IVC. [employer] [place] with SVRI of 3600 Repeat bedside echo [...] of this encounter (statuses as of 07/16/2022) [facility] History of Past illness Narrative* Problem Noted [...] EBL Bedside TTE is hyperdynamic, collapsed IVC. [employer] [place] with SVRI of 3600 Repeat bedside echo [...] of this encounter (statuses as of 07/17/2022) [facility] of Past illness Narrative* Problem Noted [...] EBL Bedside TTE is hyperdynamic, collapsed IVC. [employer] [place] with SVRI of 3600 Repeat bedside echo [...] of this encounter (statuses as of 07/17/2022) [facility] History of Past illness Narrative* Problem Noted [...] EBL Bedside TTE is hyperdynamic, collapsed IVC. [employer] [place] with SVRI of 3600 Repeat bedside echo [...] of this encounter (statuses as of 07/20/2022) [facility] History of Past illness Narrative* Problem Noted [...] EBL Bedside TTE is hyperdynamic, collapsed IVC. [employer] [place] with SVRI of 3600 Repeat bedside echo [...] of this encounter (statuses as of 07/20/2022) [facility] of Past illness Narrative* Problem Noted [...] EBL Bedside TTE is hyperdynamic, collapsed IVC. [employer] [place] with SVRI of 3600 Repeat bedside echo [...] of this encounter (statuses as of 07/25/2022) [facility] History of Past illness Narrative* Problem Noted [...] EBL Bedside TTE is hyperdynamic, collapsed IVC. [employer] [place] with SVRI of 3600 Repeat bedside echo [...] of this encounter (statuses as of 07/26/2022) [facility] of Past illness Narrative* Problem Noted [...] EBL Bedside TTE is hyperdynamic, collapsed IVC. [employer] [place] with SVRI of 3600 Repeat bedside echo [...] of this encounter (statuses as of 07/30/2022) [facility] History of Past illness Narrative* Problem Noted [...] EBL Bedside TTE is hyperdynamic, collapsed IVC. [employer] [place] with SVRI of 3600 Repeat bedside echo [...] of this encounter (statuses as of 07/30/2022) [facility] History of Past illness Narrative* Problem Noted [...] EBL Bedside TTE is hyperdynamic, collapsed IVC. [employer] [place] with SVRI of 3600 Repeat bedside echo [...] of this encounter (statuses as of 07/31/2022) [facility] History of Past illness Narrative* Problem Noted [...] EBL Bedside TTE is hyperdynamic, collapsed IVC. [employer] [place] with SVRI of 3600 Repeat bedside echo [...] of this encounter (statuses as of 08/02/2022) [facility] History of Past illness Narrative* Problem Noted [...] EBL Bedside TTE is hyperdynamic, collapsed IVC. [employer] [place] with SVRI of 3600 Repeat bedside echo [...] of this encounter (statuses as of 08/10/2022) [facility] History of Past illness Narrative* Problem Noted [...] EBL Bedside TTE is hyperdynamic, collapsed IVC. [place] with SVRI of 3600 Repeat bedside echo [...] of this encounter (statuses as of 08/14/2022) [facility] of Past illness Narrative* Problem Noted [...] EBL Bedside TTE is hyperdynamic, collapsed IVC. [place] with SVRI of 3600 Repeat bedside echo [...] of this encounter (statuses as of 08/21/2022) [facility] History of Past illness Narrative* Problem Noted [...] EBL Bedside TTE is hyperdynamic, collapsed IVC. [employer] [place] with SVRI of 3600 Repeat bedside echo [...] of this encounter (statuses as of 08/30/2022) [facility] History of Past illness Narrative* Problem Noted [...] EBL Bedside TTE is hyperdynamic, collapsed IVC. [employer] [place] with SVRI of 3600 Repeat bedside echo [...] of this encounter (statuses as of 09/15/2022) [facility] History of Past illness Narrative* Problem Noted Date Resolved Date Hypokalemia 06/08/2022 06/27/2022 Pancreatic duct leak 06/06/2022 06/27/2022 Last Assessment & Plan: Continue drain ERCP tomorrow Broad spectrum Abx Hypovolemia 05/29/2022 06/27/2022 Last Assessment & Plan: Assessment: S/p ex lap 05/29 with intraoperative hypotension. 1L EBL Bedside TTE is hyperdynamic, collapsed IVC. [employer] [place] with SVRI of 3600 Repeat bedside echo [...] of this encounter (statuses as of 10/02/2022) [facility] History of Past illness Narrative* Problem Noted Date Resolved Date Hypokalemia 06/08/2022 06/27/2022 Pancreatic duct leak 06/06/2022 06/27/2022 Last Assessment & Plan: Continue drain ERCP tomorrow Broad spectrum Abx Hypovolemia 05/29/2022 06/27/2022 Last Assessment & Plan: Assessment: S/p ex lap 05/29 with intraoperative hypotension. 1L EBL Bedside TTE is hyperdynamic, collapsed IVC. [employer] [place] with SVRI of 3600 Repeat bedside echo [...] of this encounter (statuses as of 10/03/2022) [facility] History of Past illness Narrative* Problem Noted Date Resolved Date Hypokalemia 06/08/2022 06/27/2022 Pancreatic duct leak 06/06/2022 06/27/2022 Last Assessment & Plan: Continue drain ERCP tomorrow Broad spectrum Abx Hypovolemia 05/29/2022 06/27/2022 Last Assessment & Plan: Assessment: S/p ex lap 05/29 with intraoperative hypotension. 1L EBL Bedside TTE is hyperdynamic, collapsed IVC. [employer] [place] with SVRI of 3600 Repeat bedside echo [...] of this encounter (statuses as of 10/04/2022) [facility] History of Past illness Narrative* Problem Noted Date Resolved Date Hypokalemia 06/08/2022 06/27/2022 Pancreatic duct leak 06/06/2022 06/27/2022 Last Assessment & Plan: Continue drain ERCP tomorrow Broad spectrum Abx Hypovolemia 05/29/2022 06/27/2022 Last Assessment & Plan: Assessment: S/p ex lap 05/29 with intraoperative hypotension. 1L EBL Bedside TTE is hyperdynamic, collapsed IVC. [place] with SVRI of 3600 Repeat bedside echo [...] of this encounter (statuses as of 10/05/2022) [facility] History of Past illness Narrative* Problem Noted Date Resolved Date Hypokalemia 06/08/2022 06/27/2022 Pancreatic duct leak 06/06/2022 06/27/2022 Last Assessment & Plan: Continue drain ERCP tomorrow Broad spectrum Abx Hypovolemia 05/29/2022 06/27/2022 Last Assessment & Plan: Assessment: S/p ex lap 05/29 with intraoperative hypotension. 1L EBL Bedside TTE is hyperdynamic, collapsed IVC. [employer] [place] with SVRI of 3600 Repeat bedside echo [...] of this encounter (statuses as of 10/19/2022) [facility] History of Past illness Narrative* Problem Noted Date Resolved Date Hypokalemia 06/08/2022 06/27/2022 Pancreatic duct leak 06/06/2022 06/27/2022 Last Assessment & Plan: Continue drain ERCP tomorrow Broad spectrum Abx Hypovolemia 05/29/2022 06/27/2022 Last Assessment & Plan: Assessment: S/p ex lap 05/29 with intraoperative hypotension. 1L EBL Bedside TTE is hyperdynamic, collapsed IVC. [employer] [place] with SVRI of 3600 Repeat bedside echo [...] of this encounter (statuses as of 11/12/2022) [facility] History of Past illness Narrative* Problem Noted Date Resolved Date Hypokalemia 06/08/2022 06/27/2022 Pancreatic duct leak 06/06/2022 06/27/2022 Last Assessment & Plan: Continue drain ERCP tomorrow Broad spectrum Abx Hypovolemia 05/29/2022 06/27/2022 Last Assessment & Plan: Assessment: S/p ex lap 05/29 with intraoperative hypotension. 1L EBL Bedside TTE is hyperdynamic, collapsed IVC. [employer] [place] with SVRI of 3600 Repeat bedside echo [...] of this encounter (statuses as of 11/13/2022) [facility] History of Past illness Narrative* Problem Noted Date Resolved Date Hypokalemia 06/08/2022 06/27/2022 Pancreatic duct leak 06/06/2022 06/27/2022 Last Assessment & Plan: Continue drain ERCP tomorrow Broad spectrum Abx Hypovolemia 05/29/2022 06/27/2022 Last Assessment & Plan: Assessment: S/p ex lap 05/29 with intraoperative hypotension. 1L EBL Bedside TTE is hyperdynamic, collapsed IVC. [employer] [place] with SVRI of 3600 Repeat bedside echo [...] of this encounter (statuses as of 11/15/2022) [facility] History of Past illness Narrative* Problem Noted Date Resolved Date Hypokalemia 06/08/2022 06/27/2022 Pancreatic duct leak 06/06/2022 06/27/2022 Last Assessment & Plan: Continue drain ERCP tomorrow Broad spectrum Abx Hypovolemia 05/29/2022 06/27/2022 Last Assessment & Plan: Assessment: S/p ex lap 05/29 with intraoperative hypotension. 1L EBL Bedside TTE is hyperdynamic, collapsed IVC. [employer] [place] with SVRI of 3600 Repeat bedside echo [...] of this encounter (statuses as of 11/22/2022) [facility] History of Past illness Narrative* Problem Noted Date Resolved Date Hypokalemia 06/08/2022 06/27/2022 Pancreatic duct leak 06/06/2022 06/27/2022 Last Assessment & Plan: Continue drain ERCP tomorrow Broad spectrum Abx Hypovolemia 05/29/2022 06/27/2022 Last Assessment & Plan: Assessment: S/p ex lap 05/29 with intraoperative hypotension. 1L EBL Bedside TTE is hyperdynamic, collapsed IVC. [employer] [place] with SVRI of 3600 Repeat bedside echo [...] of this encounter (statuses as of 12/06/2022) [facility] History of Past illness Narrative* Problem Noted Date Resolved Date Hypokalemia 06/08/2022 06/27/2022 Pancreatic duct leak 06/06/2022 06/27/2022 Last Assessment & Plan: Continue drain ERCP tomorrow Broad spectrum Abx Hypovolemia 05/29/2022 06/27/2022 Last Assessment & Plan: Assessment: S/p ex lap 05/29 with intraoperative hypotension. 1L EBL Bedside TTE is hyperdynamic, collapsed IVC. [employer] [place] with SVRI of 3600 Repeat bedside echo [...] of this encounter (statuses as of 12/24/2022) [facility] History of Past illness Narrative* Problem Noted Date Resolved Date Hypokalemia 06/08/2022 06/27/2022 Pancreatic duct leak 06/06/2022 06/27/2022 Last Assessment & Plan: Continue drain ERCP tomorrow Broad spectrum Abx Hypovolemia 05/29/2022 06/27/2022 Last Assessment & Plan: Assessment: S/p ex lap 05/29 with intraoperative hypotension. 1L EBL Bedside TTE is hyperdynamic, collapsed IVC. [employer] [place] with SVRI of 3600 Repeat bedside echo [...] of this encounter (statuses as of 12/28/2022) [facility] History of Past illness Narrative* Problem Noted Date Resolved Date Hypokalemia 06/08/2022 06/27/2022 Pancreatic duct leak 06/06/2022 06/27/2022 Last Assessment & Plan: Continue drain ERCP tomorrow Broad spectrum Abx Hypovolemia 05/29/2022 06/27/2022 Last Assessment & Plan: Assessment: S/p ex lap 05/29 with intraoperative hypotension. 1L EBL Bedside TTE is hyperdynamic, collapsed IVC. [employer] [place] with SVRI of 3600 Repeat bedside echo [...] of this encounter (statuses as of 01/11/2023) [facility] History of Past illness Narrative* Problem Noted Date Resolved Date Hypokalemia 06/08/2022 06/27/2022 Pancreatic duct leak 06/06/2022 06/27/2022 Last Assessment & Plan: Continue drain ERCP tomorrow Broad spectrum Abx Hypovolemia 05/29/2022 06/27/2022 Last Assessment & Plan: Assessment: S/p ex lap 05/29 with intraoperative hypotension. 1L EBL Bedside TTE is hyperdynamic, collapsed IVC. [employer] [place] with SVRI of 3600 Repeat bedside echo [...] of this encounter (statuses as of 01/23/2023) [facility] History of Past illness Narrative* Problem Noted Date Resolved Date Hypokalemia 06/08/2022 06/27/2022 Pancreatic duct leak 06/06/2022 06/27/2022 Last Assessment & Plan: Continue drain ERCP tomorrow Broad spectrum Abx Hypovolemia 05/29/2022 06/27/2022 Last Assessment & Plan: Assessment: S/p ex lap 05/29 with intraoperative hypotension. 1L EBL Bedside TTE is hyperdynamic, collapsed IVC. [employer] [place] with SVRI of 3600 Repeat bedside echo [...] of this encounter (statuses as of 02/13/2023) [facility] History of Past illness Narrative* Problem Noted Date Diagnosed Date Resolved Date Hypokalemia 06/08/2022 06/27/2022 Pancreatic duct leak 06/06/2022 022 Last Assessment & Plan: Continue drain ERCP tomorrow Broad spectrum Abx Hypovolemia 05/29/2022 06/27/2022 Last Assessment & Plan: Assessment: S/p ex lap 05/29 with intraoperative hypotension. 1L EBL Bedside TTE is hyperdynamic, collapsed IVC. [employer] [place] with SVRI of 3600 Repeat bedside echo [...] of this encounter (statuses as of 04/18/2023) [facility] History of Past illness Narrative* Problem Noted Date Diagnosed Date Resolved Date Hypokalemia 06/08/2022 06/27/2022 Pancreatic duct leak 06/06/2022 022 Last Assessment & Plan: Continue drain ERCP tomorrow Broad spectrum Abx Hypovolemia 05/29/2022 06/27/2022 Last Assessment & Plan: Assessment: S/p ex lap 05/29 with intraoperative hypotension. 1L EBL Bedside TTE is hyperdynamic, collapsed IVC. [employer] [place] with SVRI of 3600 Repeat bedside echo [...] of this encounter (statuses as of 05/14/2023) [facility] History of Past illness Narrative* Problem Noted Date Diagnosed Date Resolved Date Hypokalemia 06/08/2022 06/27/2022 Pancreatic duct leak 06/06/2022 022 Last Assessment & Plan: Continue drain ERCP tomorrow Broad spectrum Abx Hypovolemia 05/29/2022 06/27/2022 Last Assessment & Plan: Assessment: S/p ex lap 05/29 with intraoperative hypotension. 1L EBL Bedside TTE is hyperdynamic, collapsed IVC. [employer] [place] with SVRI of 3600 Repeat bedside echo [...] of this encounter (statuses as of 06/25/2023) [facility] History of Past illness Narrative* Problem Noted Date Diagnosed Date Resolved Date Hypokalemia 06/08/2022 06/27/2022 Pancreatic duct leak 06/06/2022 022 Last Assessment & Plan: Continue drain ERCP tomorrow Broad spectrum Abx Hypovolemia 05/29/2022 06/27/2022 Last Assessment & Plan: Assessment: S/p ex lap 05/29 with intraoperative hypotension. 1L EBL Bedside TTE is hyperdynamic, collapsed IVC. [employer] [place] with SVRI of 3600 Repeat bedside echo [...] of this encounter (statuses as of 08/04/2023) [facility] of Past illness Narrative* Problem Noted Date Diagnosed Date Resolved Date Hypokalemia 06/08/2022 06/27/2022 Pancreatic duct leak 06/06/2022 022 Last Assessment & Plan: Continue drain ERCP tomorrow Broad spectrum Abx Hypovolemia 05/29/2022 06/27/2022 Last Assessment & Plan: Assessment: S/p ex lap 05/29 with intraoperative hypotension. 1L EBL Bedside TTE is hyperdynamic, collapsed IVC. [place] with SVRI of 3600 Repeat bedside echo [...] of this encounter (statuses as of 08/04/2023) [facility] History of Past illness Narrative* Problem Noted Date Diagnosed Date Resolved Date Hypokalemia 06/08/2022 06/27/2022 Pancreatic duct leak 06/06/2022 022 Last Assessment & Plan: Continue drain ERCP tomorrow Broad spectrum Abx Hypovolemia 05/29/2022 06/27/2022 Last Assessment & Plan: Assessment: S/p ex lap 05/29 with intraoperative hypotension. 1L EBL Bedside TTE is hyperdynamic, collapsed IVC. [place] with SVRI of 3600 Repeat bedside echo [...] of this encounter (statuses as of 11/12/2023) [facility] History of Past illness Narrative* Problem Noted Date Diagnosed Date Resolved Date Hypokalemia 06/08/2022 06/27/2022 Pancreatic duct leak 06/06/2022 022 Last Assessment & Plan: Continue drain ERCP tomorrow Broad spectrum Abx Hypovolemia 05/29/2022 06/27/2022 Last Assessment & Plan: Assessment: S/p ex lap 05/29 with intraoperative hypotension. 1L EBL Bedside TTE is hyperdynamic, collapsed IVC. [place] with SVRI of 3600 Repeat bedside echo [...] of this encounter (statuses as of 01/16/2024) [facility] History of Past illness Narrative* Problem Noted [...] of this encounter (statuses as of 06/07/2022) [facility] History of Past illness Narrative* Problem Noted [...] of this encounter (statuses as of 06/14/2022) [address]30-2022 History of Past illness Narrative* Problem [...] of this encounter (statuses as of 06/26/2022) [facility] Instructions* Patient Instructions* Monroe Ortiz MD - 05/11/2022 9:36 AM EDT PATIENT PREOPERATIVE INSTRUCTIONS Nicolsaa Denise DO has scheduled you for your procedure at this surgery center: [facility] Scheduling Office: [phone] --[address] [place] [address]. Please read below carefully for your personalized [...] call the Saturday before. Your surgeon s space scheduler will tell you what time to call the office. - If you have not reached the departmental space scheduler by 5 P.M., call [phone] after 5 P.M. the day before your surgery. Please be aware that emergency situations arise, which may delay or change your surgical time. If this happens, we will notify you as soon as possible and regret any inconvenience. If you already have an Advance Directive, please fax a copy to [phone] or email to for it to be [...] day. Monroe Ortiz MD documented [facility] History and physical note * Monroe Ortiz MD - 05/11/2022 9:20 AM EDT HISTORY AND PHYSICAL EXAMINATION SERVICE DATE: 05/11/2022 SERVICE TIME: 9:35 AM PRIMARY CARE PHYSICIAN: Harjeet Bernard MD REASON FOR VISIT: Raghavendra Burrows is a 52 year old male [...] fevers. Neuro: No history of TIA's, stroke, FLOTATION TENDER tumor, impaired sensorium, hemiplegia, paraplegia or quadraplegia. No neurological symptoms or problems. Respiratory: No history of current cough or dyspnea, or pneumonia in the past 6 weeks. No history of respiratory/pulmonary symptoms or problems. +AMBROSE Cardiovascular: No history of HTN requiring medication, no history of angina, CHF, [place], cardiac surgery or stents. Denies rest pain, [...] compliance. SIGNATURE: Monroe Ortiz MD PATIENT NAME: Raghavendra Burrows DATE: May 11, 2022 TIME: 8:21 AM Attending Note I evaluated the patient and personally participated in the gallagher components. I agree with the resident's findings and plan as documented and have discussed the case and management of the patient's carewith the resident. Signature: Carin Ho MD Date: 05/11/2022 Time: 10:57 AM documented in this encounter[facility] History and physical note * Nicolasa Denise DO - 05/04/2022 9:40 AM EDT COLORECTAL SURGERY New Patient Visit May 02, 2022 Chief Complaint: mucinous peritoneal carcinomatosis History of Present Illness: Raghavendra Burrows is a 52 year old male [...] EGD W/O BRSH SPEC VARICIES INJ 04/26/2022 Current Outpatient Medications [...] Assessment Medical Decision Making: Assessment & Diagnosis: Raghavendra Burrows is a 52 year old male [...] CT Pelvis, CT Chest I have discussed Raghavendra Burrows's treatment plan and/or results with patient, medical oncology, general surgery. Treatment plan: Exploratory lap, CRS and HIPEC Nicolasa Denise DO, FACS, FASCRS Colorectal Surgery Colorectal Surgery Risk of morbidity, mortality and/or complications of treatment plan: high I have confirmed and edited as necessary, the PFSH and ROS obtained by others. documented in this [facility] History of Present illness Narrative* Fany Parnell DO - 05/03/2022 10:29 AM EDT [...] Tissues: No significant finding. Lower thorax: Unremarkable. Document Improvement Specialist (topogram) images: No additional findings. IMPRESSION: Serosal [...] alcohol. Two children. Lives with SO in [place]. 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 Family history: 1) Father--Pancreas cancer age 72. [...] No jaundice or rash. No petechiae. NEUROLOGIC: email operations manager II-XII are grossly intact. No focal motor [...] which included preparing to see the patient, [id number] patient care, completing clinical documentation, obtaining and/or reviewing separately obtained history, performing a medically appropriate examination, counseling and educating the pat ient/family/caregiver, independently interpreting results (not separately reported) and communicating results to the patient/family/caregiver. Fany Parnell DO documented in this encounterSelect [facility] History of Present illness Narrative* Priscila Clarke MD - 05/02/2022 5:40 PM EDT FOLLOW UP VISIT - ENDOSCOPY NAME: Raghavendra Zepeda [facility] NO.: [id number] DATE OF SERVICE: 05/02/2022 : 1970 REFERRING PHYSICIAN: Harjeet Bernard MD Raghavendra is a patient I am following for an abdominal mass. I initially saw him on April 19 for anemia. I noted: The patient is a 51 year old male referred for endoscopy. Raghavendra notes no history of colon complaints. The patient notes no history of upper GI complaints. He has noted some mild weight loss. After discussion he notes some abdominal distention which he finds is unusual given his weight loss. Raghavendra has not undergone prior endoscopy. In July, [...] PLAN: I had previously spoken with Dr. Fany Parnell who is seeing the patient tomorrow. Given the above findings I reached out and communicated to Dr. Nicolasa Denise who is seeing the patient on Saturday for consideration of exploration/intraperitoneal chemotherapy. Diagnoses: (R19.09) Upper abdominal mass (primary encounter diagnosis) Return to Clinic: The patient is instructed to follow-up with me as needed. Priscila Clarke MD documented in this encounterSelect [facility]08-01-2022 Miscellaneous Notes* Telephone Encounter - Priscila Clarke MD - 04/30/2022 4:14 PM EDT Spoke with patient. Discussed plan for care with Dr. Nicolasa Denise. Feels that the patient will likely need exploration and HIPAC. His office will contact him and try to get him seen this week. documented in this encounterSelect [facility]07-28-2022 Nurse Note* Evie Moise RN - 04/26/2022 [...] will be going forward. documented in this encounterSelect [facility]07-28-2022 History and physical note * Priscila Clarke MD - 04/26/2022 8:15 AM EDT Images from the original note were not included. HISTORY AND PHYSICAL Raghavendra W First 1970 REFERRING PHYSICIAN: Harjeet Bernard MD CHIEF COMPLAINT: New Patient (Referred by Harjeet Bernard - Anemia ) HPI: The patient is a 51 year old male referred for endoscopy. Raghavendra notes no history of colon complaints. The patient notes no history of upper GI complaints. He has noted some mild weight loss. After discussion he notes some abdominal distention which he finds is unusual given his weight loss. Raghavendra has not undergone prior endoscopy. In July, [...] completed. Priscila Clarke MD documented in this encounterSelect [facility]07-26-2022 Miscellaneous Notes* Telephone Encounter - Priscila Clarke MD - 2022 4:33 PM EDT Spoke with interventional radiology omental biopsy was performed but no significant fluid allowing paracentesis was noted. It was deemed that everything seen was more solid in character. CA 19-9 returned as normal. CEA is elevated. I spoke with Dr. Fany Parnell and the patient. I agree that the next step is upper and lower endoscopy. We will plan to use Dr. Stark's open slot in the afternoon as this is urgent.. documented in this encounterSelect Medical [facility]07-26-2022 Miscellaneous Notes* Telephone Encounter - Lily Rogers - 2022 4:06 PM EDT Tried contacting pt to schedule, went to , left message for pt to return call. Lily Rogers * Telephone Encounter - Fany Parnell DO - 2022 3:[address] Clarke is referring this patient for carcinomatosis. Please schedule him to see me next at 10 AM. No labs. Let him know. Fany Parnell DO documented in this encounterSelect Medical [facility]07-22-2022 History of Present illness Narrative* Noemí Britt, [...] Completed: Abdomen/Pelvis SIGNATURE: RT Dick(R) PATIENT NAME: Raghavendra Zepeda First DATE: April 20, 2022 TIME: 1:57 PM documented in this encounterSelect Medical [facility]06-06-2022 Miscellaneous Notes* Telephone Encounter - Kiya Bland [...] results. * Telephone Encounter - Julissa Ugarte APRN.FLOTATION TENDER - 03/05/2022 4:36 PM EDT Recommend he [...] 1.00 - 4.00 k/uL 1.10 0.85 (L) Livingston% % 9.3 10.1 Abs Livingston <0.87 k/uL 0.57 0.65 Eosin% % 2.9 [...] 1,245 pg/mL >2,000 (H) documented in this encounterSelect Medical [facility]06-03-2022 History of Present illness Narrative* Julissa Ugarte [...] (mg/dL) Date Value 10/11/2018 118 LDL Chol, Bhavin (mg/dL) Date Value 11/03/2011 109 09/28/2010 115 Triglyceride (mg/dL) Date Value 10/11/2018 75 Anxiety / depression: working well, no current counselor, no voiced SI/HI. AMBROSE: Got Autopap in 1999. Autopap adjustment made in pressure, recently was too high, now pressure at 6 and working better. Does not see sleep medicine doctor currently. Gogo LIMA. Review of Systems Constitutional: Negative. Respiratory: Negative. [...] Abs Lymph 1.00 - 4.00 k/uL 1.10 Livingston% % 9.3 Abs Livingston <0.87 k/uL 0.57 Eosin% % 2.9 Abs Eosin <0.46 k/uL 0.18 Baso% % 0.5 Abs Baso <0.11 k/uL 0.03 Nucleated Reds 0 /100 WBC 0.0 Absolute nRBC <0.01 k/uL <0.01 <0.01 Diff Type Auto Diff WBC, Bhavin 3.7 - 11.0 k/uL 4.8 RBC, Bhavin 4.20 - 6.00 m/uL 4.86 Hemoglobin, Bhavin 13.0 - 17.0 g/dL 15.0 Hematocrit, Bhavin 39.0 - 51.0 % 42.6 MCV, Arnett 80.0 - 100.0 fL 87.7 MCH, Bhavin 26.0 - 34.0 pg 30.9 MCHC, Arnett 30.5 - 36.0 g/dL 35.2 RDW, Arnett 11.5 - 15.0 % 12.6 Platelet Cnt, Arnett 150 - 400 k/uL 206 MPV, Bhavin 9.0 - 12.7 fL 9.2 Neut%, Bhavin 39.5 - 74.0 % 59.5 Lymp%, Bhavin 15.9 - 47.3 % 27.9 Livingston%, Arnett 0.0 - 12.0 % 11.1 Eos%, Arnett 0.0 - 6.6 % 1.3 Baso%, Bhavin 0.0 - 1.2 % 0.2 Abs Neut, Bhavin 1.45 - 7.50 k/uL 2.84 Abs Lymp, Arnett 1.00 - 4.00 k/uL 1.33 Abs Livingston, Bhavin 0.00 - 0.86 k/uL 0.53 Abs Eos, Bhavin 0.00 - 0.45 k/uL 0.06 Abs Baso, [...] mo follow up with labs MD Julissa Montemayor, THERAPIST RESPIRATORY.FLOTATION TENDER Medical Decision Making: Problems: Moderate: 2+ stable chronic illnesses Data: Unique test(s) ordered: 3+ Risk: Moderate: Drug management Medical Decision Making Level: 4 - Moderate documented in this encounterSelect Medical [facility]03-24-2022 Miscellaneous Notes* Telephone Encounter - Babita Martinez [...] and advise. Nereida CAMPBELL documented in this encounterSelect Medical [facility] [place]04-20-2011 History of Past illness Narrative* Problem Noted Date Resolved Date Other adjustment reaction wi th predominant disturbance of other emotions 01/17/2011 01/25/2015 Non-healing surgical wound 07/06/2009 04/28 /2015 Cellulitis and abscess of unspecified site 07/0401/25/2015 Abnormal weight gain 02/18/2006 01/25/2015 OVERWEIGHT 02/18/2006 01/25/2015 documented as of this encounter (statuses as of 12/21/2021) [facility] History of Past illness Narrative* Problem Noted Date Resolved Date Other adjustment reaction wi th predominant disturbance of other emotions 01/17/2011 01/25/2015 Non-healing surgical wound 07/06/200901/25 Cellulitis and abscess of unspecified site 07/0401/25/2015 Abnormal weight gain 02/18/2006 01/25/2015 OVERWEIGHT 02/18/2006 01/25/2015 documented as of this encounter (statuses as of 03/02/2022) [place] [address]-20-2011 History of Past illness Narrative* Problem Noted Date Resolved Date Other adjustment reaction wi th predominant disturbance of other emotions 01/17/2011 01/25/2015 Non-healing surgical wound 07/06/200901/25 Cellulitis and abscess of unspecified site 07/0401/25/2015 Abnormal weight gain 02/18/2006 01/25/2015 OVERWEIGHT 02/18/2006 01/25/2015 documented as of this encounter (statuses as of 03/05/2022) [facility] History of Past illness Narrative* Problem Noted Date Resolved Date Other adjustment reaction wi th predominant disturbance of other emotions 01/17/2011 01/25/2015 Non-healing surgical wound 07/06/200901/25 Cellulitis and abscess of unspecified site 07/0401/25/2015 Abnormal weight gain 02/18/2006 01/25/2015 OVERWEIGHT 02/18/2006 01/25/2015 documented as of this encounter (statuses as of 04/21/2022) [address]20-2011 History of Past illness Narrative* Problem Noted Date Resolved Date Other adjustment reaction wi th predominant disturbance of other emotions 01/17/2011 01/25/2015 Non-healing surgical wound 07/06/200901/25 Cellulitis and abscess of unspecified site 07/0401/25/2015 Abnormal weight gain 02/18/2006 01/25/2015 OVERWEIGHT 02/18/2006 01/25/2015 documented as of this encounter (statuses as of 04/21/2022) [address]20-2011 History of Past illness Narrative* Problem Noted Date Resolved Date Other adjustment reaction wi th predominant disturbance of other emotions 01/17/2011 01/25/2015 Non-healing surgical wound 07/06/200901/25 Cellulitis and abscess of unspecified site 07/0401/25/2015 Abnormal weight gain 02/18/2006 01/25/2015 OVERWEIGHT 02/18/2006 01/25/2015 documented as of this encounter (statuses as of 04/23/2022) [address]20-2011 History of Past illness Narrative* Problem Noted Date Resolved Date Other adjustment reaction wi th predominant disturbance of other emotions 01/17/2011 01/25/2015 Non-healing surgical wound 07/06/200901/25 Cellulitis and abscess of unspecified site 07/0401/25/2015 Abnormal weight gain 02/18/2006 01/25/2015 OVERWEIGHT 02/18/2006 01/25/2015 documented as of this encounter (statuses as of 2022) [address]20-2011 History of Past illness Narrative* Problem Noted Date Resolved Date Other adjustment reaction wi th predominant disturbance of other emotions 01/17/2011 01/25/2015 Non-healing surgical wound 07/06/200901/25 Cellulitis and abscess of unspecified site 07/0401/25/2015 Abnormal weight gain 02/18/2006 01/25/2015 OVERWEIGHT 02/18/2006 01/25/2015 documented as of this encounter (statuses as of 04/27/2022) [address]20-2011 History of Past illness Narrative* Problem Noted Date Resolved Date Other adjustment reaction wi th predominant disturbance of other emotions 01/17/2011 01/25/2015 Non-healing surgical wound 07/06/200901/25 Cellulitis and abscess of unspecified site 07/0401/25/2015 Abnormal weight gain 02/18/2006 01/25/2015 OVERWEIGHT 02/18/2006 01/25/2015 documented as of this encounter (statuses as of 04/30/2022) [address]20-2011 History of Past illness Narrative* Problem Noted Date Resolved Date Other adjustment reaction wi th predominant disturbance of other emotions 01/17/2011 01/25/2015 Non-healing surgical wound 07/06/200901/25 Cellulitis and abscess of unspecified site 07/0401/25/2015 Abnormal weight gain 02/18/2006 01/25/2015 OVERWEIGHT 02/18/2006 01/25/2015 documented as of this encounter (statuses as of 05/03/2022) [address]20-2011 History of Past illness Narrative* Problem Noted Date Resolved Date Other adjustment reaction wi th predominant disturbance of other emotions 01/17/2011 01/25/2015 Non-healing surgical wound 07/06/200901/25 Cellulitis and abscess of unspecified site 07/0401/25/2015 Abnormal weight gain 02/18/2006 01/25/2015 OVERWEIGHT 02/18/2006 01/25/2015 documented as of this encounter (statuses as of 05/03/2022) [address]20-2011 History of Past illness Narrative* Problem Noted Date Resolved Date Other adjustment reaction wi th predominant disturbance of other emotions 01/17/2011 01/25/2015 Non-healing surgical wound 07/06/200901/25 Cellulitis and abscess of unspecified site 07/0401/25/2015 Abnormal weight gain 02/18/2006 01/25/2015 OVERWEIGHT 02/18/2006 01/25/2015 documented as of this encounter (statuses as of 05/11/2022) [place] [address]-20-2011 History of Past illness Narrative* Problem Noted Date Resolved Date Other adjustment reaction wi th predominant disturbance of other emotions 01/17/2011 01/25/2015 Non-healing surgical wound 07/06/200901/25 Cellulitis and abscess of unspecified site 07/0401/25/2015 Abnormal weight gain 02/18/2006 01/25/2015 OVERWEIGHT 02/18/2006 01/25/2015 documented as of this encounter (statuses as of 05/11/2022) [address]20-2011 History of Past illness Narrative* Problem Noted Date Resolved Date Other adjustment reaction wi th predominant disturbance of other emotions 01/17/2011 01/25/2015 Non-healing surgical wound 07/06/200901/25 Cellulitis and abscess of unspecified site 07/0401/25/2015 Abnormal weight gain 02/18/2006 01/25/2015 OVERWEIGHT 02/18/2006 01/25/2015 documented as of this encounter (statuses as of 05/30/2022) [facility] summary Author Primo May [facility] Note Date/Time May 20, 2025 7: 43am [facility] Medical Records Department [address] [place] [address] Emergency Department Summary 05/20/25 MR#: [id number] Acct: [id number] Name: RAGHAVENDRA BURROWS Rep #:[id number] : 1970 55 From: Primo May DO PCP: Dr. Harjeet Bernard MD Status:RE G ER Location: ED HPI History of Present Illness Chief Complaint: General Illness Informant: patient Narrative Narrative: Patient is a 55-year-old male with past medical history of chronic kidney disease with previous ileostomy. He states that he dehydrates very easily basedon his short gut syndrome and ileostomy and will typically receive IV fluids every few weeks from his system designer. He states on Saturday he began with generalized abdominal discomfort with a few bouts of nausea and vomiting. He states since that time he is also had essentially brown water moving through hisileostomy. He states there is been no fevers and he denies any significant abdominal discomfort and he denies any known sick contact. However he is concerned that he is becoming dehydrated and potentially developing acute on chronic kidney injury as this has happened in the past and therefore he comes infor evaluation [facility] Medical History Dehydration Acute kidney injury [...] 875 mg-potassium 875 mg PO Q12H #20 TABLET S 04/12/25 Unknown Rx clavulanate 125 mg tablet Allergy/AdvReac Type Severity Reaction Status Date / Time No Known Allergies Allergy Verified 05/20/25 06:39 Family History Other VTE (venous thromboembolism) Surgical History S/P splenectomy H/O colectomy Social History household members: spouse housing: house Smoking Status: Never smoker ROS ROS ED Constitutional Constitutional ED: Reports other Details: Positive generalized fatigue ; Denies chills or fever(s) Eyes Eyes: Denies change in vision ENT ENT ED: Denies sore throat Cardiovascular Cardiovascular: Denies chest pain Respiratory/Chest Respiratory/Chest: Denies cough or dyspnea Gastrointestinal Gastrointestinal: Reports diarrhea, nausea and vomiting; Denies abdominal pain Genitourinary Genitourinary ED: Denies dysuria Musculoskeletal Musculoskeletal: Denies back pain or myalgias Integumentary Denies rash Neurologic Neurologic: Denies headache(s) Hematologic/Lymphatic Hematologic/Lymphatic: Denies easy bleeding or easy bruising EXAM Physical Exam Const Vital Signs: 05/20/25 06:36 05/20/25 06:39 Temperature 97.7 F L Temperature Source Oral Pulse Rate 103 H Respiratory Rate 18 Respiratory Effort Normal Non-Labored Respiratory Pattern Normal Blood Pressure 118/68 Blood Pressure Mean 84 Pulse Ox 98 Oxygen Delivery Method Room Air Positive well nourished and well developed General Appearance ED: well developed; Negative for pallor HEENT Reports dry mucous membranes HEENT Narrative: Normocephalic atraumatic No tongue or lip swelling no oral lesions no airway edema or compromise; no signs of infection noted in the posterior pharynx Mucous membranes are dry and tacky however Mouth ED: Yes dry mucous membranes Mouth: dry mucous membranes Eyes PERRL and EOMs intact bilaterally General Eye ED: Negative for scleral icterus Neck supple Resp normal respiratory effort and clear to auscultation bilaterally Cardio regular rhythm Rate: tachycardic and other Other Details: Slightly tachycardic rate with regular rhythm Radial and carotid pulses are equal and symmetric GI non-tender, non-distended and no masses GI Narrative: Abdomen is soft and nondistended with hyperactive bowel sounds. Ileostomy is present in the right mid abdomen with essentially brown water within the ostomy bag. No significant pain with palpation. No voluntary guarding or rigidity or pulsatile mass. Auscultation: hyperactive bowel sounds Palpation: soft Extremity normal to inspection Neuro oriented x3, CN's II-XII intact bilaterally and no sensory deficits noted Sensorium / Orientation: alert Motor Exam: strength 5/5 throughout Psych mental status grossly normal Skin no rashes or lesions noted and No skin turgor normal Skin Narrative: Skin turgor is increased consistent with dehydration General Skin Exam: Negative for jaundice or pallor MDM MDM MDM Narrative Medical decision making narrative: Patient arrived to the ER and is mildly tachycardic but otherwise with stable vitals. He reported roughly 4 days of decreased oral intake with excessive output from his ileostomy. Physical exam is concerning for dehydration with drymucous membranes and skin tenting and mild tachycardia. He has known chronic kidney disease but states he has had acute kidney injury in the past. There is concern for this with his symptoms and physical exam. Basic labs were obtained his white count is elevated at 14.8 but this is most likely stress response as he has normal tensive and afebrile with a soft nonsurgical abdomen. His BUN is increased from 29 on April 12 204 today consistent with dehydration. His creatinine has increased from 1.94-3.73 indicating acute kidney injury. Even though the BUN is elevated as his blood pressure is normal and his H&H stable I have low concern for an acute GI bleed. At this time however secondaryto his electrolyte abnormalities and acute on chronic kidney injury I feel he will need admitted to the hospital for continued IV hydration and laboratory monitoring. Therefore I discussed the case with the hospitalist who agrees to accept the patient for continued care History & Record Review Discussion w/independent historian: Patient Lab Data Attestation: I reviewed the patient's lab results. Labs: Laboratory Results - last 24 hr 05/20/25 06:49 WBC 14.8 H RBC 4.19 L Hgb 12.6 L Hct 39.5 L MCV 94.3 H MCH 30.1 MCHC 31.9 L RDW Std Deviation 46.9 H RDW Coeff of Dirk 13.6 Plt Count 523 H MPV 8.7 Immature Gran % (Auto) 0.400 Neut % (Auto) 87.1 H Lymph % (Auto) 4.7 L Livingston % (Auto) 7.6 Eos % (Auto) 0.1 Baso % (Auto) 0.1 Absolute Neuts (auto) 12.9 H Absolute Lymphs (auto) 0.69 L Nucleated RBC % 0 Sodium 126 L Potassium 5.2 H Chloride 96 L Carbon Dioxide 10.9 L Anion Gap 19 H BUN 104 H* Creatinine 3.73 H Estim Creat Clear Calc 25.88 L Est GFR (MDRD) Non-Af 19 L BUN/Creatinine Ratio 27.9 H Glucose 133 H Calcium 9.0 Phosphorus 7.3 H Magnesium 1.6 Management Discussion w/another healthcare provider: Hospitalist Discharge Plan Triage Chief Complaint: General Illness ED Provider: Primo May Dx/Rx/DC Orders Clinical Impression: [id number] kidney injury, Dehydration, Diarrhea, Acute hyponatremia Prescriptions: No Action bupropion HCl 150 mg [...] .QID PRN (Reason: diarrhea) Qty: 20 0RF amoxicillin-pot clavulanate 875-125 mg tablet 875 mg PO Q12H Qty: 20 0RF Primary Care Provider: Harjeet Bernard Referrals: Harjeet Bernard MD [Primary Care Provider] - Print Language: Indonesian Disposition Disposition: Acute Care Hospital [facility] What to do if you have Problems For any increased pain, shortness of breath, bleeding, nausea or vomiting, chestpain, or any unexpected problems, contact your Primary Care Provider. Call [facility] ([phone]) or report to the closest Emergency Room. Call 911 if necessary. 05/20/25 0743 <Electronically signed by Primo May DO> Cosigner Signature (if applicable): CC: Dr. Harjeet Bernard MD ~ Signed [facility] Work Phone: Discharge summary Author Hamzah [facility] Note Date/Time May 22, 2025 10 :26am [facility] Medical Records Department [facility] [place] [address] Discharge Summary 05/22/25 1017 MR#: [id number] Acct: [id number] Name: RAGHAVENDRA BURROWS Rep #:[id number] : 1970 55 From: Hamzah Alvarez MD PCP: Dr. Harejet Bernard MD Status:AD M IN Location: [facility] [id number] Providers Date of Admission: 05/20/25 Date of Discharge: 05/22/25 Primary Care Physician: Dr. Harjeet Bernard MD Consultations 05/20/25 09:05 Consult: Nephrology Routine Consulting Provider: Renita Aguilar Reason for Consult: [place] EMERGENT Consult: No MD Notified: Yes Date Notified: 05/20/25 Time Notified: 09:12 Method of Notification: Answering Service Reason For Visit: [place] Diagnosis Discharge Diagnosis (1) Acute hyponatremia: Status: Acute Code(s): E87.1 - Hypo-osmolality and hyponatremia (2) Diarrhea: Status: Acute Code(s): R19.7 - Diarrhea, unspecified (3) Dehydration: Status: Acute Code(s): E86.0 - Dehydration Plan Patient is a 55-year-old gentleman with history of ileostomy following appendiceal malignancy presented to the emergency department with a 3-day history of progressive generalized weakness and increased output from his ileostomy 1. Acute kidney injury superimposed on chronic kidney disease stage IIIa ? Patient's creatinine on 04/12/2025 was 1.94 creatinine on admission was 3.73. This is secondary to increased output from his ileostomy. Patient has been admitted to monitored bed started on IV hydration with serial monitoring of electrolytes ordered ? 05/21/2025; renal ultrasound obtained the day prior demonstrated bilateral hydronephrosis. Patient creatinine down to 2.72 ? 05/22/2025 patient creatinine down to 2.32 ? Plan is for patient to be assessed for discharge. Patient has been instructedto follow-up with his primary system designer in [facility] 2. Hyponatremia ? Secondary to hypovolemic hyponatremia patient started on saline with subsequent monitoring of sodium levels ordered to assess response to therapy ? 05/21/2025; patient sodium level up to 129 we will continue current treatment regimen 3. Hyperkalemia ? Secondary to patient impaired kidney function. Will monitor with repeat K levels ? 05/22/2025 patient hyperkalemia has since resolved 4. Metabolic acidosis ? Patient has some chronicity and is on bicarb tablets. Patient with metabolic acidosis secondary to his impaired kidney function ? 05/21/2025; patient had to be started on bicarb drip following significant dropin his CO2 to 6 5. GERD ? On PPI 6.Hyperphosphatemia ? Secondary to patient impaired kidney function do expect improvement with improvement in his kidney function 7. Anemia ? 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 9. Depression with anxiety ? Discontinue patient home antidepressant 10. DVT prophylaxis ? On enoxaparin, dose adjusted for kidney function 11. Hypomagnesemia ? Corrected per protocol repeat mag levels ordered in a.m. to assess response totherapy 12. Hypokalemia ? Potassium supplements ordered. Time spent in the patient's overall evaluation,decision-making process, review of diagnostic data, adjustment of management, discussion with other providers, nursing nursing and ancillary staff involved in patient's care documentation, 38 Minutes A Medications at Discharge Home Medications bupropion HCl 150 mg tablet,12 hr sustained-release 150 mg PO DAILY mood 05/04/24 fluvoxamine 150 mg capsule,extended release 24 hr 150 mg PO DAILY depression 05/04/24 ondansetron 8 mg disintegrating tablet 8 mg PO Q8H PRN nausea and vomiting #20 tabs 05/04/24 psyllium husk 3 gram oral powder packet (Daily Fiber (psyllium-aspartame)) 1 packet PO TID stool #54 ea 11/29/24 dicyclomine 20 mg tablet 20 mg PO .QID PRN diarrhea #20 tabs 12/16/24 diphenoxylate-atropine 2.5 mg-0.025 mg tablet (Lomotil) 2 tab PO Q6H PRN diarrhea #30 tabs 12/16/24 omeprazole 40 mg capsule,delayed release 40 mg PO DAILY reflux 05/20/25 sodium bicarbonate 650 mg tablet 650 mg PO TID kidneys 05/20/25 Physical Exam Narrative GENERAL: cooperative HEENT: Atraumatic; normocephalic EYES; Anicteric, Normal Conjunctiva NECK; supple, normal thyroid, RESPIRATORY: Diminished to auscultation CARDIOVASCULAR: Regular S1 S2, GI: soft, normoactive bowel sounds, : No Renal angle tenderness; EXTREMITIES: No edema, no clubbing, MUSCULOSKELETAL: no muscle wasting NEURO: Awake; no lateralizing signs. SKIN: No Rash PSYCH; Flat affect Weight / BMI Weight Weight: 86.1 kg Body Mass Index (BMI) 25.0 ABG / Lab / Microbiology Data 05/22/25 06:41 05/22/25 06:41 Laboratory: Laboratory Results - last 24 hr 05/22/25 06:41: WBC 8.4, RBC 2.98 L, Hgb 8.8 L, Hct 26.5 L, MCV 88.9, MCH 29.5, MCHC 33.2, RDW Std Deviation 43.1, RDW Coeff of Dirk 13.3, Plt Count 386, MPV 8.8, Immature Gran % (Auto) 0.500, Neut % (Auto) 64.8, Lymph % (Auto) 11.4 L, [place] % (Auto) 21.6 H, Eos % (Auto) 1.5, Baso % (Auto) 0.2, Absolute Neuts (auto) 5.5, Absolute Lymphs (auto) 0.96, Nucleated RBC % 0, Sodium 132 L, Potassium 3.2L, Chloride 98, Carbon Dioxide 18.5 L, Anion Gap 15, BUN 79 H, Creatinine 2.32 H, Estim Creat Clear Calc 41.61 L, Est GFR (MDRD) Non-Af 33 L, BUN/Creatinine Ratio 34.0 H, Glucose 130 H, Calcium 8.9, Phosphorus 2.5 L, Magnesium 1.6 D/C Instructions DC O2, CPAP, BIPAP Needs Home O2 Discharge instructions: No Meaningful Use Info Meaningful Use Meaningful Use Diagnoses (Choose all that apply): None applicable Discharge Plan Admission Admit Date/Time: 05/20/25 07:38 Attending Provider: Hamzah Alvarez Primary Care Provider: Harjeet Bernard Consulting Providers: Renita Aguilar Discharge Orders/Prescriptions Prescriptions: Continued bupropion HCl 150 mg tablet sustained-release 12 hr 150 mg PO DAILY Patient Comments: [NO ORIGINAL SIG] fluvoxamine 150 mg capsule,extended release 24hr 150 mg PO DAILY Patient Comments: [NO ORIGINAL SIG] ondansetron 8 mg tablet,disintegrating 8 mg PO Q8H PRN (Reason: nausea and vomiting) Qty: 20 0RF Daily Fiber (psyllium-aspart) 3 gram Powder In Packet 1 packet PO TID Qty: 54 0RF diphenoxylate-atropine [Lomotil] 2.5-0.025 mg tablet 2 tab PO Q6H PRN (Reason: diarrhea) Qty: 30 0RF dicyclomine 20 mg tablet 20 mg PO .QID PRN (Reason: diarrhea) Qty: 20 0RF omeprazole 40 mg capsule,delayed release(DR/EC) 40 mg PO DAILY sodium bicarbonate 650 mg tablet 650 mg PO TID Referrals / Follow Up: Harjeet Bernard MD [Primary Care Provider] - Within 1 Week Disposition Disposition (needs filled in before D/C Order can be placed): Home, Self Care Charges/Coding Visit Charges Inpatient E&M: 47218 Disch Hosp >30min 05/22/25 1026 <Electronically signed by Hamzah Alvarez MD> Cosigner Signature (if applicable): CC: Dr. Hamzah Alvarez MD; Dr. Harjeet Bernard MD~ Signed [facility] Work Phone: Evaluation note* Diagnosis Recurrent major depressive disorder, in partial remission (HCC) [facility] Obstructive sleep apnea syndrome- Primary [...] partial remission (HCC) [facility] Diagnosis Iron deficiency anemia, unspecified iron deficiency anemia type- Primary [facility] Diagnosis Intra-abdominal and pelvic swelling, mass and lump, unspecified site [facility] Diagnosis Omental mass- Primary Other specified disorder of peritoneum Other ascites Abdominal mass, unspecified abdominal location [facility] Diagnosis Anemia, unspecified type Upper abdominal mass Abdominal pain, other specified site [facility] Diagnosis Upper abdominal mass- Primary Abdominal pain, other specified site [facility] Diagnosis Mass of appendix- Primary Other and unspecified diseases of appendix Microcytic anemia Iron deficiency anemia, unspecified [facility] Diagnosis Encounter for preoperative assessment- Primary Anemia, unspecified type Obstructive sleep apnea syndrome Obstructive sleep apnea (adult) (pediatric) Hypercholesteremia <130 Pure hypercholesterolemia Low grade mucinous neoplasm of appendix Neoplasm of unspecified nature of digestive system [facility] Diagnosis 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 Neoplasm of unspecified nature of digestive system Low grade mucinous neoplasm of appendix Neoplasm of unspecified nature of digestive system [facility] Diagnosis 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 Neoplasm of unspecified nature of digestive system Non morbid obesity due to excess calories Obstructive sleep apnea syndrome Obstructive sleep apnea (adult) (pediatric) Mass of appendix Other and unspecified diseases of appendix [facility] Diagnosis Bile leak- Primary Unspecified disorder of biliary tract [facility] Diagnosis Attention to ileostomy (HCC)- Primary Attention to ileostomy [facility] Diagnosis Postoperative abscess Other postoperative infection [facility] Diagnosis Intra-abdominal abscess (HCC)- Primary Peritoneal abscess [facility] Diagnosis Postoperative abscess- Primary Other postoperative infection Low grade mucinous neoplasm of appendix Neoplasm of unspecified nature of digestive system Mass of appendix Other and unspecified diseases of appendix [facility] Diagnosis Bile leak Unspecified disorder of biliary tract [facility] in this [facility] noteNo assessment information availableWMercy [facility] Work Phone[facility]* Diagnosis Encounter for attention to ileostomy (HCC)- Primary Attention to ileostomy [facility] Diagnosis Intra-abdominal abscess (HCC)- Primary Peritoneal abscess Imelda infection Candidiasis of unspecified site Enterococcal infection Streptococcus infection in conditions classified elsewhere and of unspecified site, group D Infection due to Enterobacter cloacae Infection due to other gram-negative organisms in conditions classified elsewhere and of unspecified site [facility] Diagnosis Portal vein thrombosis- Primary Anticoagulation management encounter Encounter for therapeutic drug monitoring 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 documented in this [facility] Diagnosis Attention to ileostomy (HCC)- Primary Attention to ileostomy Postoperative abscess Other postoperative infection Low grade mucinous neoplasm of appendix Neoplasm of unspecified nature of digestive system Mass of appendix Other and unspecified diseases of appendix Malnutrition of mild degree (HCC) Malnutrition of mild degree documented [facility] Diagnosis 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 Neoplasm of unspecified nature of digestive system Attention to ileostomy (HCC) Attention to ileostomy documented [facility] Diagnosis Low grade mucinous neoplasm of appendix Neoplasm of unspecified nature of digestive system documented in this [facility] Diagnosis Attention to ileostomy (HCC)- Primary Attention to ileostomy 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 Neoplasm of unspecified nature of digestive system Mass of appendix Other and unspecified diseases of appendix documented [facility] this [facility] Diagnosis Gastric leak- Primary Other digestive system complications 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 documented in this encounter [facility] Diagnosis 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 [facility] Diagnosis 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 documented in this encounter [facility]* Diagnosis Iron deficiency anemia, unspecified iron deficiency anemia type- Primary Recurrent major depressive disorder, in partial remission (HCC) AMBROSE on APAP Obstructive sleep apnea (adult) (pediatric) 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) Ileostomy status Encounter for long-term current use of medication documented [facility] Diagnosis Mass of appendix- Primary Other and unspecified diseases of appendix Attention to ileostomy (HCC) Attention to ileostomy 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 Neoplasm of unspecified nature of digestive system Encounter for attention to ileostomy (HCC) Attention to ileostomy documented [facility] this [facility]* Diagnosis 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 Neoplasm of unspecified nature of digestive system [facility] Diagnosis 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 Neoplasm of unspecified nature of digestive system [facility] Diagnosis Portal vein thrombosis- Primary Anticoagulation management encounter Encounter for therapeutic drug monitoring 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 documented [facility] Diagnosis Intra-abdominal and pelvic swelling, mass and lump, unspecified site- Primary Low grade mucinous neoplasm of appendix Neoplasm of unspecified nature of digestive system [facility] Diagnosis Recurrent major depressive disorder, in partial remission (HCC) documented in this [facility] Diagnosis Recurrent major depressive disorder, in partial remission (HCC)- Primary AMBROSE on CPAP Obstructive sleep apnea (adult) (pediatric) 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) Ileostomy status documented in this encounter [facility]* Diagnosis 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)- Primary Ileostomy status documented in this [facility]* Diagnosis Intra-abdominal and pelvic swelling, mass and lump, unspecified site Low grade mucinous neoplasm of appendix Neoplasm of unspecified nature of digestive system [facility] Diagnosis Recurrent major depressive disorder, in partial remission (HCC)- Primary [facility]* Diagnosis 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)- Primary Ileostomy status documented [facility] Diagnosis Recurrent major depressive disorder, in partial remission (HCC) documented in this encounter [facility]* Diagnosis Recurrent major depressive disorder, in partial remission (HCC)- Primary 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) Ileostomy status AMBROSE on CPAP Obstructive sleep apnea (adult) (pediatric) Hypercholesteremia <130 Pure hypercholesterolemia Elevated glucose Other abnormal glucose Encounter for long-term current use of medication [facility]* Diagnosis Low grade mucinous neoplasm of [...] of digestive system documented in this encounter [facility]* Diagnosis Low grade mucinous neoplasm of [...] appliance and device documented in this [facility]* Diagnosis Low grade mucinous neoplasm of [...] (HCC) Ileostomy status documented in this [facility] Diagnosis Low grade mucinous neoplasm of [...] diseases of appendix documented in this encounter [facility]* Diagnosis Low grade mucinous neoplasm of [...] specified viral diseases documented in this encounter [facility]* Diagnosis Low grade mucinous neoplasm of [...] and diarrhea Diarrhea documented in this [facility]* Diagnosis Low grade mucinous neoplasm of [...] kidney failure, unspecified documented in this encounter [facility]* Diagnosis Low grade mucinous neoplasm of [...] Pure hypercholesterolemia [place] (acute kidney injury) ([facility])- Primary Acute kidney failure, unspecified Acute renal insufficiency Unspecified disorder of kidney and ureter Excessive gas Flatulence, eructation, and gas pain Ileostomy in place ([facility]) Ileostomy status Recurrent major depressive disorder, in partial remission ([facility]) documented in this [facility]* Diagnosis Low grade mucinous neoplasm of [...] Portal vein thrombosis documented in this encounter [facility]* Diagnosis Low grade mucinous neoplasm of [...] kidney disease (HCC) [facility] [...] leg edema Edema [facility]* Diagnosis Low grade mucinous neoplasm of [...] renal failure type documented in this encounter [facility]* Diagnosis Low grade mucinous neoplasm of [...] left lower extremity documented in this encounter [facility] note* Diagnosis Low grade mucinous neoplasm of [...] system Recurrent dehydration documented in this encounter [facility] note* Diagnosis Low grade mucinous neoplasm of [...] involving digestive system documented in this [facility]* Diagnosis Onset Date Resolution Status Admit Date Acute hyponatremia acute May 20, 2025 7:38am Dehydration acute May 20, 2025 7:38am Diarrhea acute May 20, 2 025 7:38am [id number] kidney injury chron ic May 20, 2025 7:38am [facility] Work Phone: Hospital Discharge instructions Additional Instructions Follow-up with your surgeon tomorrow as planned. Return back to the ED if symptoms change or worsen.[facility] Work Phone: Hospital Discharge instructionsAdditional Instructions Take the antibiotic as directed. Your bilateral lower extremity swelling may be secondary to your kidney disease. Make sure you show your system designer. Warm compresses to your right lower leg [...] your primary care provider for referral if needed.[facility] Work Phone: Hospital Discharge instructionsAdditional Instructions Date of Discharge: [facility] Work Phone: Reason for referral (narrative)* Outpatient Procedure (Routine) - Closed Specialty Diagnoses / Procedures Referred By Ruddy ceja Referred To Contact [facility] Diagnoses Anemia, unspecified type Upper abdominal mass Procedures COLONOSCOPY DIAGNOSTIC COLONOSCOPY FLX DX W/COLLJ SPEC WHEN PFRMD Priscila Clarke MD [address] [place] [address] [facility] [address] [place] [address] Referral ID Status Reason Start Date Expiration Date V isits Requested Visits Authorized [id number] Closed Auto-Generate d Referral Patient Cleared INN/SMCP Payor Auth Obtained 04/19/2022 09/29/2022 1 1 * Outpatient Procedure (Routine) - Closed Specialty Diagnoses / Procedures Referred By Ruddy ceja Referred To Contact [facility] Diagnoses Anemia, unspecified type Upper abdominal mass Procedures EGD DIAGNOSTIC ESOPHAGOGASTRODUODENOSCOPY TRANSORAL DIAGNOSTIC Priscila Clarke MD [address] [place] [address] [facility] [address] [place] [address] Referral ID Status Reason Start Date Expiration Date V isits Requested Visits Authorized [id number] Closed Auto-Generate d Referral 04/19/2022 09/29/2022 1 1 [facility] for referral (narrative)* Outpatient Procedure (Routine) - Pending Review Specialty Diagnoses / Procedures Referred By uRddy ceja Referred To Contact [facility] Diagnoses Bile leak Procedures ERCP ERCP DX COLLECTION SPECIMEN BRUSHING/WASHING Avni Williamson MD [address] [place] [address] [facility] [address] [place] [id number] Referral ID Status Reason Start Date Expiration Date Visits Requested Visits Authorized [id number] Pending Review Auto-Generat ed Referral 06/07/2023 1 1 [facility] for referral (narrative)* Diagnostic Procedure Only (Routine) - Closed Specialty Diagnoses / Procedures Referred By Contac t Referred To Contact [facility] Diagnoses Postoperative abscess Procedures XR ABSCESS DRAIN INJECTION Nicolasa Denise DO [address] [id number] Xr Imaging Referral ID Status Reason Start Date Expiration Date V isits Requested Visits Authorized [id number] Closed Auto-Generate d Referral 07/09/2022 08/08/2023 1 1 [facility] for referral (narrative)* Diagnostic Procedure Only (Routine) - Closed Specialty Diagnoses / Procedures Referred By Contac t Referred To Contact [facility] IMAGING Diagnoses Postoperative abscess Procedures XR ABSCESS DRAIN INJECTION Nicolasa Denise DO [address] [place] [address] Xr Imaging Referral ID Status Reason Start Date Expiration Date V isits Requested Visits Authorized [id number] Closed Auto-Generate d Referral 07/09/2022 08/08/2023 1 1 T [facility] for referral (narrative)* Outpatient Procedure (Routine) - Closed Specialty Diagnoses / Procedures Referred By Contac t Referred To Contact [facility] Diagnoses Bile leak Procedures ERCP ERCP DX COLLECTION SPECIMEN BRUSHING/WASHING Avni Williamson MD [address] [place] [address] [facility] [address] [place] [id number] Referral ID Status Reason Start Date Expiration Date V isits Requested Visits Authorized [id number] Closed Auto-Generate d Referral 07/19/2022 06/07/2023 1 1 [facility] for referral (narrative)* Diagnostic Procedure Only (Routine) - Authorized Specialty Diagnoses / Procedures Referred By Contac t Referred To Contact XR IMAG[facility] Diagnoses Low grade mucinous neoplasm of appendix Procedures XR ABSCESS DRAIN INJECTION Nicolasa Denise DO [address] [place] [address] Xr Imaging Referral ID Status Reason Start Date Expiration Date Visits Requested Visits Authorized [id number] Authorized Auto-Generat ed Referral 09/26/2023 1 1 [facility] for referral (narrative)* Diagnostic Procedure Only (Routine) - Closed Specialty Diagnoses / Procedures Referred By Contac t Referred To Contact XR IMAGING Diagnoses Low grade mucinous neoplasm of appendix Procedures XR ABSCESS DRAIN INJECTION Nicolasa Denise DO [address] [place] [address] Xr Imaging Referral ID Status Reason Start Date Expiration Date V isits Requested Visits Authorized [id number] Closed Auto-Generate d Referral 08/27/2022 09/26/2023 1 1 [facility] for referral (narrative)* Diagnostic Procedure Only (Routine) - Closed Specialty Diagnoses / Procedures Referred By Contac t Referred To Contact CT IMAG[facility] Diagnoses Low grade mucinous neoplasm of appendix Procedures CT ABD/PEL W IVCON CT ABD & PELVIS W/CONTRAST Nicolasa Denise DO [address] [place] [address] [id number] Referral ID Status Reason Start Date Expiration Date Visits Re quested Visits Authorized [id number] Closed 05/01/2024 09/29/2024 2 2 * Diagnostic Procedure Only (Routine) - Authorized Specialty Diagnoses / Procedures Referred By Contac t Referred To Contact CT IMAG[facility] Diagnoses Low grade mucinous neoplasm of appendix Procedures CT CHEST W IVCON DIAGNOSTIC COMPUTED TOMOGRAPHY THORAX W/CONTRAST Nicolasa Denise DO [address] [place] [address] [id number] Referral ID Status Reason Start Date Expiration Date V isits Requested Visits Authorized [id number] Authorized 05/01/2024 09/29/2024 2 2 [facility] for referral (narrative)No reason for referral information availableWMercy Hospital Work Phone: Reason for visit Narrative* Outpatient Procedure (Routine) - Closed Specialty Diagnoses / Procedures Referred By Ruddy ceja Referred To Contact [facility] Diagnoses Anemia, unspecified type Upper abdominal mass Procedures COLONOSCOPY DIAGNOSTIC COLONOSCOPY FLX DX W/COLLJ SPEC WHEN Priscila Greenwood MD [address] [facility] [place] [address] [facility] [address] [place] [address] Referral ID Status Reason Start Date Expiration Date V isits Requested Visits Authorized [id number] Closed Auto-Generate d Referral Patient Cleared INN/SMCP Payor Auth Obtained 04/19/2022 09/29/2022 1 1 [facility] for visit Narrative* Outpatient Procedure (Routine) - Closed Specialty Diagnoses / Procedures Referred By Ruddy ceja Referred To Contact [facility] Diagnoses Bile leak Procedures ERCP ERCP DX COLLECTION SPECIMEN BRUSHING/WASHING Avni Williamson MD [address] [place] [address] [facility] [place] [id number] Referral ID Status Reason Start Date Expiration Date V isits Requested Visits Authorized [id number] Closed Auto-Generate d Referral 07/19/2022 06/07/2023 1 1 [facility] for visit Narrative* Diagnostic Procedure Only (Routine) - Closed Specialty Diagnoses / Procedures Referred By Contac t Referred To Contact CT IMAGING Diagnoses Low grade mucinous neoplasm of appendix Procedures CT ABD/PEL W IVCON CT ABD & PELVIS W/CONTRAST Nicolasa Denise DO [address] [place] [address] Ct Imaging [id number] Referral ID Status Reason Start Date Expiration Date Visits Re quested Visits Authorized [id number] Closed 05/01/2024 09/29/2024 2 2 [facility] Reason for Referral Specialty Diagnoses / Procedures Referred By Contac t Referred To Contact General Surgery Diagnoses Iron deficiency anemia, unspecified iron deficiency anemia type Procedures CONSULT TO GENERAL SURGERY OFFICE/OUTPATIENT [facility] 60-74 MINUTES Julissa Ugarte, THERAPIST RESPIRATORY.FLOTATION TENDER [address] [place] [address] Referral ID Status Reason Start Date Expiration Date Visits Requested Visits Authorized [id number] Authorized PCP Requested Referral 03/05/2022 03/05/2023 1 1 Specialty Diagnoses / Procedures Referred By Contac t Referred To Contact CT IMAGING Diagnoses Intra-abdominal and pelvic swelling, mass and lump, unspecified site Procedures CT ABD/PEL W IVCON CT ABD & PELVIS W/CONTRAST Priscila Clarke MD [address] [place] [address] Ct Imaging Referral ID Status Reason Start Date Expiration Date V isits Requested Visits Authorized [id number] Closed Auto-Generat ed Referral Patient Cleared - Admin/Chairm an/Director advise to proceed 04/20/2022 09/29/2022 1 1 Specialty Diagnoses / Procedures Referred By Contac t Referred To Contact Diagnoses Low grade mucinous neoplasm of appendix Procedures IN PERSON CONSULT TO PACC Nicolasa Denise DO [address] [place] [address] Referral ID Status Reason Start Date Expiration Date Visits Requested Visits Authorized [id number] Ref Not Required PCP Requested Referral 05/11/2022 08/02/2022 1 1 Specialty Diagnoses / Procedures Referred By Contac t Referred [facility] Diagnoses Low grade mucinous neoplasm of appendix Procedures ECG COMPLETE ECG ROUTINE ECG W/LEAST 12 LDS W/I&R Nicolasa Denise, DO [address] [place] [address] [facility] [address] [place] [address] Referral ID Status Reason Start Date Expiration Date V isits Requested Visits Authorized [id number] Closed Auto-Generate d Referral 05/11/2022 05/04/2023 1 1 Specialty Diagnoses / Procedures Referred By Contac t Referred To Contact CT IMAGING Diagnoses Intra-abdominal and pelvic swelling, mass and lump, unspecified site Low grade mucinous neoplasm of appendix Procedures CT CHEST W IVCON DIAGNOSTIC COMPUTED TOMOGRAPHY THORAX W/CONTRAST Nicolasa Denise, DO [address] [place] [address] Ct Imaging Referral ID Status Reason Start Date Expiration Date Visits Requested Visits Authorized [id number] Pending Review Auto-Generat ed Referral 01/08/2023 02/07/2024 1 1 Specialty Diagnoses / Procedures Referred By Contac t Referred To Contact CT IMAGING Diagnoses Intra-abdominal and pelvic swelling, mass and lump, unspecified site Low grade mucinous neoplasm of appendix Procedures CT ABD/PEL W IVCON CT ABD & PELVIS W/CONTRAST Nicolasa Denise, DO [address] [place] [address] Ct Imaging Referral ID Status Reason Start Date Expiration Date Visits Requested Visits Authorized [id number] Pending Review Auto-Generat ed Referral 01/08/2023 02/07/2024 1 1 Specialty Diagnoses / Procedures Referred By Contac t Referred To Contact CT IMAGING Diagnoses Intra-abdominal and pelvic swelling, mass and lump, unspecified site Low grade mucinous neoplasm of appendix Procedures CT CHEST W IVCON DIAGNOSTIC COMPUTED TOMOGRAPHY THORAX W/CONTRAST Nicolasa Denise, DO [address] [place] [address] [place] [id number] Referral ID Status Reason Start Date Expiration Date V isits Requested Visits Authorized [id number] Closed Auto-Generate d Referral 05/06/2023 02/07/2024 1 1 Specialty Diagnoses / Procedures Referred By Contac t Referred To Contact CT IMAGING Diagnoses Intra-abdominal and pelvic swelling, mass and lump, unspecified site Low grade mucinous neoplasm of appendix Procedures CT ABD/PEL W IVCON CT ABD & PELVIS W/CONTRAST Nicolasa Denise, [address] [place] [address] [place] [id number] Referral ID Status Reason Start Date Expiration Date V isits Requested Visits Authorized [id number] Closed Auto-Generate d Referral 05/06/2023 02/07/2024 1 1 Advance Directives No Advanced Directives Records FoundDocuments on File Type Date Recorded Patient Extension Worker Expl anation Advance Directive(s) 04/19/2022 4:25 PM Documents on File Type Date Recorded Patient Extension Worker Expl anation Advance Directive(s) 04/19/2022 4:25 PM Documents on File Type Date Recorded Patient Extension Worker Expl anation Advance Directive(s) 2022 8:47 AM Advance Directive(s) 04/19/2022 4:25 PM Documents on File Type Date Recorded Patient Extension Worker Expl anation Advance Directive(s) 04/25/2022 12:27 PM Advance Directive(s) 2022 8:47 AM Advance Directive(s) 04/19/2022 4:25 PM Documents on File Type Date Recorded Patient Extension Worker Expl anation Advance Directive(s) 04/25/2022 12:27 PM Advance Directive(s) 2022 8:47 AM Advance Directive(s) 04/19/2022 4:25 PM Documents on File Type Date Recorded Patient Extension Worker Expl anation Advance Directive(s) 05/31/2022 9:56 AM Documents on File Type Date Recorded Patient Extension Worker Expl anation Advance Directive(s) 05/31/2022 9:56 AM Advance Directive Response Recorded Date/ Time Living Will No November 26 8:54pm Power of Game Farm Helper No November 26, 2024 8:54pm Living Will No December 15, 2024 8:29am Power of Game Farm Helper No December 15 8:29am Advance Directive Response Recorded Date/ Time Living Will No November 26 8:54pm Power of Game Farm Helper No November 26, 2024 8:54pm Living Will No December 15, 2024 11:22am Power of Game Farm Helper No December 15 11:22am Advance Directive Response Recorded Date/ Time Living Will No November 26 8:54pm Do you have a Healthcare Power of Game Farm Helper? No November 26, 2024 8:54pm Living Will No December 15, 2024 11:22am Do you have a Healthcare Power of Game Farm Helper? No December 15, 2024 11:22am Living Will No January 15, 2025 8:54pm Do you have a Healthcare Power of Game Farm Helper? No January 15, 2025 8:54pm Advance Directive Response Recorded Date/ Time Living Will No November 26 8:54pm Do you have a Healthcare Power of Game Farm Helper? No November 26, 2024 8:54pm Living Will No December 15, 2024 11:22am Do you have a Healthcare Power of Game Farm Helper? No December 15, 2024 11:22am Do you have a Healthcare Power of Game Farm Helper? No March 28, 2025 1:13pm Living Will No January 15, 2025 8:54pm Do you have a Healthcare Power of Game Farm Helper? No January 15, 2025 8:54pm Advance Directive Response Recorded Date/ Time Living Will No December 15, 2024 11:22am Do you have a Healthcare Power of Game Farm Helper? No December 15, 2024 11:22am Do you have a Healthcare Power of Game Farm Helper? No March 28, 2025 1:13pm Living Will No January 15, 2025 8:54pm Do you have a Healthcare Power of Game Farm Helper? No January 15, 2025 8:54pm Do you have a Healthcare Power of Game Farm Helper? No April 12, 2025 8:17pm Advance Directive Response Recorded Date/ Time Do you have a Healthcare Power of Game Farm Helper? No March 28, 2025 1:13pm Do you have a Healthcare Power of Game Farm Helper? No April 12, 2025 8:17pm Do you have a Healthcare Power of Game Farm Helper? No May 20, 2025 6:38am Advance Directive Response Recorded Date/ Time Do you have a Healthcare Power of Game Farm Helper? No March 28, 2025 1:13pm Do you have a Healthcare Power of Game Farm Helper? No Tram 14th, 2025 8:17pm Do you have a Healthcare Power of Game Farm Helper? No May 20, 2025 9:22am Medications Administered Section Inactive Administered Medications - up to 3 most recent administrations Medication Order MAR Action Action Date Dose Rate Site benzocaine 20% 1 [place] (TOPEX) 1 [place], TOPICAL, DIRECTED, Starting on Jackie 04/26/22 at 0900, Until Jackie 04/26/22 at 1259, DOSING DIRECTED BY PHYSICIAN FOR PROCEDURAL SEDATION ONLY - Pharmaceutical Waste: Aerosol -, Intraprocedure Given by [facility] 04/26/2022 8:28 AM EDT 5 Sprays diphenhydrAMINE 12.5-50 mg injection (BENADRYL) 12.5-50 mg, INTRAVENOUS, DIRECTED, Starting on Jackie 04/26/22 at 0900, Until Jackie 04/26/22 at 1259, DOSING DIRECTED BY PHYSICIAN FOR PROCEDURAL SEDATION ONLY, Intraprocedure Given by [facility] 04/26/2022 8:31 AM EDT 50 mg fentaNYL 50 mcg/mL 25-100 mcg injection (SUBLIMAZE) 25-100 mcg, INTRAVENOUS, DIRECTED, Starting on Jackie 04/26/22 at 0900, Until Jackie 04/26/22 at 1259, DOSING DIRECTED BY PHYSICIAN FOR PROCEDURAL SEDATION ONLY, Intraprocedure Given by [facility] 04/26/2022 8:31 AM EDT 25 mcg Given by [facility] 04/26/2022 8:30 AM EDT 25 mcg Given by [facility] 04/26/2022 8:29 AM EDT 50 mcg [...] 8:37 AM EDT 1 mg Given by [facility] 04/26/2022 8:33 AM EDT 2 mg Given by [facility] 04/26/2022 8:31 AM EDT 1 mg Summary [...] 2024 10: 18am Chief Complaint Admit Date DEHYDRATION March 28, 2025 12:5 8pm Edema April 12, 2025 5:42 pm [place] May 20, 2025 7: 38am Reason for Visit Admit Date Acute hyponatremia May 20, 2025 7: 38am Dehydration May 20, 2025 7: 38am Diarrhea May 20, 2025 7: 38am [id number] kidney injury May 202024 7:38am Chief Complaint Admit Date DEHYDRATION March 28, 2025 12:5 8pm Edema April 12, 2025 5:42 pm [place] May 20, 2025 7: 38am [place] May 20, 2025 7: 46am [place] May 21, 2025 4: 50am [place] May 22, 2025 7: 56am Reason for Visit Admit Date Acute hyponatremia May 20, 2025 7: 38am [place] (acute kidney injury) May 20, 2 025 7:38am Dehydration May 20, 2025 7: 38am Diarrhea May 20, 2025 7: 38am Hyperkalemia May 20, 2025 7: 38am Metabolic acidosis May 20, 2025 7: 38am Rknuc-sl-umbzkrq kidney injury May 202024 7:38am Additional Source Comments Source Comments (unrecognize d section and content) In the event this informatio n is protected by the Federal Confidentiality of Alcohol and Drug Abuse Patient Records regulations: The Federal rules restrict any use of the information to criminally investigate or prosecute any alcohol or drug abuse patient.[facility] the event this information is protected by the Federal Confidentiality of Alcohol and Drug Abuse Patient Records regulations: The Federal rules restrict any use of the information to criminally investigate or prosecute any alcohol or drug abuse patient.[facility] the event this information is protected by the Federal Confidentiality of Alcohol and Drug Abuse Patient Records regulations: The Federal rules restrict any use of the information to criminally investigate or prosecute any alcohol or drug abuse patient.[facility] the event this information is protected by the Federal Confidentiality of Alcohol and Drug Abuse Patient Records regulations: The Federal rules restrict any use of the information to criminally investigate or prosecute any alcohol or drug abuse patient.[facility] the event this information is protected by the Federal Confidentiality of Alcohol and Drug Abuse Patient Records regulations: The Federal rules restrict any use of the information to criminally investigate or prosecute any alcohol or drug abuse patient.[facility] Dublin[facility] the event this information is protected by the Federal Confidentiality of Alcohol and Drug Abuse Patient Records regulations: The Federal rules restrict any use of the information to criminally investigate or prosecute any alcohol or drug abuse patient.[facility] DublinIn the event this information is protected by the Federal Confidentiality of Alcohol and Drug Abuse Patient Records regulations: The Federal rules restrict any use of the information to criminally investigate or prosecute any alcohol or drug abuse patient.[facility] DublinIn the event this information is protected by the Federal Confidentiality of Alcohol and Drug Abuse Patient Records regulations: The Federal rules restrict any use of the information to criminally investigate or prosecute any alcohol or drug abuse patient.[facility] DublinIn the event this information is protected by the Federal Confidentiality of Alcohol and Drug Abuse Patient Records regulations: The Federal rules restrict any use of the information to criminally investigate or prosecute any alcohol or drug abuse patient.[facility] DublinIn the event this information is protected by the Federal Confidentiality of Alcohol and Drug Abuse Patient Records regulations: The Federal rules restrict any use of the information to criminally investigate or prosecute any alcohol or drug abuse patient.[facility] DublinIn the event this information is protected by the Federal Confidentiality of Alcohol and Drug Abuse Patient Records regulations: The Federal rules restrict any use of the information to criminally investigate or prosecute any alcohol or drug abuse patient.[facility] DublinIn the event this information is protected by the Federal Confidentiality of Alcohol and Drug Abuse Patient Records regulations: The Federal rules restrict any use of the information to criminally investigate or prosecute any alcohol or drug abuse patient.[facility] DublinIn the event this information is protected by the Federal Confidentiality of Alcohol and Drug Abuse Patient Records regulations: The Federal rules restrict any use of the information to criminally investigate or prosecute any alcohol or drug abuse patient.[facility] DublinIn the event this information is protected by the Federal Confidentiality of Alcohol and Drug Abuse Patient Records regulations: The Federal rules restrict any use of the information to criminally investigate or prosecute any alcohol or drug abuse patient.[facility] DublinIn the event this information is protected by the Federal Confidentiality of Alcohol and Drug Abuse Patient Records regulations: The Federal rules restrict any use of the information to criminally investigate or prosecute any alcohol or drug abuse patient.[facility] DublinIn the event this information is protected by the Federal Confidentiality of Alcohol and Drug Abuse Patient Records regulations: The Federal rules restrict any use of the information to criminally investigate or prosecute any alcohol or drug abuse patient.[facility] DublinIn the event this information is protected by the Federal Confidentiality of Alcohol and Drug Abuse Patient Records regulations: The Federal rules restrict any use of the information to criminally investigate or prosecute any alcohol or drug abuse patient.[facility] DublinIn the event this information is protected by the Federal Confidentiality of Alcohol and Drug Abuse Patient Records regulations: The Federal rules restrict any use of the information to criminally investigate or prosecute any alcohol or drug abuse patient.[facility] DublinIn the event this information is protected by the Federal Confidentiality of Alcohol and Drug Abuse Patient Records regulations: The Federal rules restrict any use of the information to criminally investigate or prosecute any alcohol or drug abuse patient.[facility] DublinIn the event this information is protected by the Federal Confidentiality of Alcohol and Drug Abuse Patient Records regulations: The Federal rules restrict any use of the information to criminally investigate or prosecute any alcohol or drug abuse patient.[facility] DublinIn the event this information is protected by the Federal Confidentiality of Alcohol and Drug Abuse Patient Records regulations: The Federal rules restrict any use of the information to criminally investigate or prosecute any alcohol or drug abuse patient.[facility] DublinIn the event this information is protected by the Federal Confidentiality of Alcohol and Drug Abuse Patient Records regulations: The Federal rules restrict any use of the information to criminally investigate or prosecute any alcohol or drug abuse patient.[facility] DublinIn the event this information is protected by the Federal Confidentiality of Alcohol and Drug Abuse Patient Records regulations: The Federal rules restrict any use of the information to criminally investigate or prosecute any alcohol or drug abuse patient.[facility] DublinIn the event this information is protected by the Federal Confidentiality of Alcohol and Drug Abuse Patient Records regulations: The Federal rules restrict any use of the information to criminally investigate or prosecute any alcohol or drug abuse patient.[facility] DublinIn the event this information is protected by the Federal Confidentiality of Alcohol and Drug Abuse Patient Records regulations: The Federal rules restrict any use of the information to criminally investigate or prosecute any alcohol or drug abuse patient.[facility] DublinIn the event this information is protected by the Federal Confidentiality of Alcohol and Drug Abuse Patient Records regulations: The Federal rules restrict any use of the information to criminally investigate or prosecute any alcohol or drug abuse patient.[facility] DublinIn the event this information is protected by the Federal Confidentiality of Alcohol and Drug Abuse Patient Records regulations: The Federal rules restrict any use of the information to criminally investigate or prosecute any alcohol or drug abuse patient.[facility] DublinIn the event this information is protected by the Federal Confidentiality of Alcohol and Drug Abuse Patient Records regulations: The Federal rules restrict any use of the information to criminally investigate or prosecute any alcohol or drug abuse patient.[facility] DublinIn the event this information is protected by the Federal Confidentiality of Alcohol and Drug Abuse Patient Records regulations: The Federal rules restrict any use of the information to criminally investigate or prosecute any alcohol or drug abuse patient.[facility] DublinIn the event this information is protected by the Federal Confidentiality of Alcohol and Drug Abuse Patient Records regulations: The Federal rules restrict any use of the information to criminally investigate or prosecute any alcohol or drug abuse patient.[facility] DublinIn the event this information is protected by the Federal Confidentiality of Alcohol and Drug Abuse Patient Records regulations: The Federal rules restrict any use of the information to criminally investigate or prosecute any alcohol or drug abuse patient.[facility] DublinIn the event this information is protected by the Federal Confidentiality of Alcohol and Drug Abuse Patient Records regulations: The Federal rules restrict any use of the information to criminally investigate or prosecute any alcohol or drug abuse patient.[facility] DublinIn the event this information is protected by the Federal Confidentiality of Alcohol and Drug Abuse Patient Records regulations: The Federal rules restrict any use of the information to criminally investigate or prosecute any alcohol or drug abuse patient.[facility] DublinIn the event this information is protected by the Federal Confidentiality of Alcohol and Drug Abuse Patient Records regulations: The Federal rules restrict any use of the information to criminally investigate or prosecute any alcohol or drug abuse patient.[facility] DublinIn the event this information is protected by the Federal Confidentiality of Alcohol and Drug Abuse Patient Records regulations: The Federal rules restrict any use of the information to criminally investigate or prosecute any alcohol or drug abuse patient.[facility] DublinIn the event this information is protected by the Federal Confidentiality of Alcohol and Drug Abuse Patient Records regulations: The Federal rules restrict any use of the information to criminally investigate or prosecute any alcohol or drug abuse patient.[facility] DublinIn the event this information is protected by the Federal Confidentiality of Alcohol and Drug Abuse Patient Records regulations: The Federal rules restrict any use of the information to criminally investigate or prosecute any alcohol or drug abuse patient.[facility] DublinIn the event this information is protected by the Federal Confidentiality of Alcohol and Drug Abuse Patient Records regulations: The Federal rules restrict any use of the information to criminally investigate or prosecute any alcohol or drug abuse patient.[facility] DublinIn the event this information is protected by the Federal Confidentiality of Alcohol and Drug Abuse Patient Records regulations: The Federal rules restrict any use of the information to criminally investigate or prosecute any alcohol or drug abuse patient.[facility] DublinIn the event this information is protected by the Federal Confidentiality of Alcohol and Drug Abuse Patient Records regulations: The Federal rules restrict any use of the information to criminally investigate or prosecute any alcohol or drug abuse patient.[facility] DublinIn the event this information is protected by the Federal Confidentiality of Alcohol and Drug Abuse Patient Records regulations: The Federal rules restrict any use of the information to criminally investigate or prosecute any alcohol or drug abuse patient.[facility] DublinIn the event this information is protected by the Federal Confidentiality of Alcohol and Drug Abuse Patient Records regulations: The Federal rules restrict any use of the information to criminally investigate or prosecute any alcohol or drug abuse patient.[facility] DublinIn the event this information is protected by the Federal Confidentiality of Alcohol and Drug Abuse Patient Records regulations: The Federal rules restrict any use of the information to criminally investigate or prosecute any alcohol or drug abuse patient.[facility] DublinIn the event this information is protected by the Federal Confidentiality of Alcohol and Drug Abuse Patient Records regulations: The Federal rules restrict any use of the information to criminally investigate or prosecute any alcohol or drug abuse patient.[facility] DublinIn the event this information is protected by the Federal Confidentiality of Alcohol and Drug Abuse Patient Records regulations: The Federal rules restrict any use of the information to criminally investigate or prosecute any alcohol or drug abuse patient.[facility] DublinIn the event this information is protected by the Federal Confidentiality of Alcohol and Drug Abuse Patient Records regulations: The Federal rules restrict any use of the information to criminally investigate or prosecute any alcohol or drug abuse patient.[facility] DublinIn the event this information is protected by the Federal Confidentiality of Alcohol and Drug Abuse Patient Records regulations: The Federal rules restrict any use of the information to criminally investigate or prosecute any alcohol or drug abuse patient.[facility] DublinIn the event this information is protected by the Federal Confidentiality of Alcohol and Drug Abuse Patient Records regulations: The Federal rules restrict any use of the information to criminally investigate or prosecute any alcohol or drug abuse patient.[facility] DublinIn the event this information is protected by the Federal Confidentiality of Alcohol and Drug Abuse Patient Records regulations: The Federal rules restrict any use of the information to criminally investigate or prosecute any alcohol or drug abuse patient.[facility] DublinIn the event this information is protected by the Federal Confidentiality of Alcohol and Drug Abuse Patient Records regulations: The Federal rules restrict any use of the information to criminally investigate or prosecute any alcohol or drug abuse patient.[facility] DublinIn the event this information is protected by the Federal Confidentiality of Alcohol and Drug Abuse Patient Records regulations: The Federal rules restrict any use of the information to criminally investigate or prosecute any alcohol or drug abuse patient.[facility] DublinIn the event this information is protected by the Federal Confidentiality of Alcohol and Drug Abuse Patient Records regulations: The Federal rules restrict any use of the information to criminally investigate or prosecute any alcohol or drug abuse patient.[facility] DublinIn the event this information is protected by the Federal Confidentiality of Alcohol and Drug Abuse Patient Records regulations: The Federal rules restrict any use of the information to criminally investigate or prosecute any alcohol or drug abuse patient.[facility] DublinIn the event this information is protected by the Federal Confidentiality of Alcohol and Drug Abuse Patient Records regulations: The Federal rules restrict any use of the information to criminally investigate or prosecute any alcohol or drug abuse patient.[facility] DublinIn the event this information is protected by the Federal Confidentiality of Alcohol and Drug Abuse Patient Records regulations: The Federal rules restrict any use of the information to criminally investigate or prosecute any alcohol or drug abuse patient.[facility] DublinIn the event this information is protected by the Federal Confidentiality of Alcohol and Drug Abuse Patient Records regulations: The Federal rules restrict any use of the information to criminally investigate or prosecute any alcohol or drug abuse patient.[facility] DublinIn the event this information is protected by the Federal Confidentiality of Alcohol and Drug Abuse Patient Records regulations: The Federal rules restrict any use of the information to criminally investigate or prosecute any alcohol or drug abuse patient.[facility] DublinIn the event this information is protected by the Federal Confidentiality of Alcohol and Drug Abuse Patient Records regulations: The Federal rules restrict any use of the information to criminally investigate or prosecute any alcohol or drug abuse patient.[facility] DublinIn the event this information is protected by the Federal Confidentiality of Alcohol and Drug Abuse Patient Records regulations: The Federal rules restrict any use of the information to criminally investigate or prosecute any alcohol or drug abuse patient.[facility] DublinIn the event this information is protected by the Federal Confidentiality of Alcohol and Drug Abuse Patient Records regulations: The Federal rules restrict any use of the information to criminally investigate or prosecute any alcohol or drug abuse patient.[facility] DublinIn the event this information is protected by the Federal Confidentiality of Alcohol and Drug Abuse Patient Records regulations: The Federal rules restrict any use of the information to criminally investigate or prosecute any alcohol or drug abuse patient.[facility] DublinIn the event this information is protected by the Federal Confidentiality of Alcohol and Drug Abuse Patient Records regulations: The Federal rules restrict any use of the information to criminally investigate or prosecute any alcohol or drug abuse patient.[facility] DublinIn the event this information is protected by the Federal Confidentiality of Alcohol and Drug Abuse Patient Records regulations: The Federal rules restrict any use of the information to criminally investigate or prosecute any alcohol or drug abuse patient.[facility] DublinIn the event this information is protected by the Federal Confidentiality of Alcohol and Drug Abuse Patient Records regulations: The Federal rules restrict any use of the information to criminally investigate or prosecute any alcohol or drug abuse patient.[facility] DublinIn the event this information is protected by the Federal Confidentiality of Alcohol and Drug Abuse Patient Records regulations: The Federal rules restrict any use of the information to criminally investigate or prosecute any alcohol or drug abuse patient.[facility] DublinIn the event this information is protected by the Federal Confidentiality of Alcohol and Drug Abuse Patient Records regulations: The Federal rules restrict any use of the information to criminally investigate or prosecute any alcohol or drug abuse patient.[facility] DublinIn the event this information is protected by the Federal Confidentiality of Alcohol and Drug Abuse Patient Records regulations: The Federal rules restrict any use of the information to criminally investigate or prosecute any alcohol or drug abuse patient.[facility] DublinIn the event this information is protected by the Federal Confidentiality of Alcohol and Drug Abuse Patient Records regulations: The Federal rules restrict any use of the information to criminally investigate or prosecute any alcohol or drug abuse patient.[facility] DublinIn the event this information is protected by the Federal Confidentiality of Alcohol and Drug Abuse Patient Records regulations: The Federal rules restrict any use of the information to criminally investigate or prosecute any alcohol or drug abuse patient.[facility] DublinIn the event this information is protected by the Federal Confidentiality of Alcohol and Drug Abuse Patient Records regulations: The Federal rules restrict any use of the information to criminally investigate or prosecute any alcohol or drug abuse patient.[facility] DublinIn the event this information is protected by the Federal Confidentiality of Alcohol and Drug Abuse Patient Records regulations: The Federal rules restrict any use of the information to criminally investigate or prosecute any alcohol or drug abuse patient.[facility] DublinIn the event this information is protected by the Federal Confidentiality of Alcohol and Drug Abuse Patient Records regulations: The Federal rules restrict any use of the information to criminally investigate or prosecute any alcohol or drug abuse patient.[facility] DublinIn the event this information is protected by the Federal Confidentiality of Alcohol and Drug Abuse Patient Records regulations: The Federal rules restrict any use of the information to criminally investigate or prosecute any alcohol or drug abuse patient.[facility] DublinIn the event this information is protected by the Federal Confidentiality of Alcohol and Drug Abuse Patient Records regulations: The Federal rules restrict any use of the information to criminally investigate or prosecute any alcohol or drug abuse patient.[facility] DublinIn the event this information is protected by the Federal Confidentiality of Alcohol and Drug Abuse Patient Records regulations: The Federal rules restrict any use of the information to criminally investigate or prosecute any alcohol or drug abuse patient.[facility] DublinIn the event this information is protected by the Federal Confidentiality of Alcohol and Drug Abuse Patient Records regulations: The Federal rules restrict any use of the information to criminally investigate or prosecute any alcohol or drug abuse patient.[facility] DublinIn the event this information is protected by the Federal Confidentiality of Alcohol and Drug Abuse Patient Records regulations: The Federal rules restrict any use of the information to criminally investigate or prosecute any alcohol or drug abuse patient.[facility] DublinIn the event this information is protected by the Federal Confidentiality of Alcohol and Drug Abuse Patient Records regulations: The Federal rules restrict any use of the information to criminally investigate or prosecute any alcohol or drug abuse patient.[facility] DublinIn the event this information is protected by the Federal Confidentiality of Alcohol and Drug Abuse Patient Records regulations: The Federal rules restrict any use of the information to criminally investigate or prosecute any alcohol or drug abuse patient.[facility] DublinIn the event this information is protected by the Federal Confidentiality of Alcohol and Drug Abuse Patient Records regulations: The Federal rules restrict any use of the information to criminally investigate or prosecute any alcohol or drug abuse patient.[facility] DublinIn the event this information is protected by the Federal Confidentiality of Alcohol and Drug Abuse Patient Records regulations: The Federal rules restrict any use of the information to criminally investigate or prosecute any alcohol or drug abuse patient.[facility] DublinIn the event this information is protected by the Federal Confidentiality of Alcohol and Drug Abuse Patient Records regulations: The Federal rules restrict any use of the information to criminally investigate or prosecute any alcohol or drug abuse patient.[facility] DublinIn the event this information is protected by the Federal Confidentiality of Alcohol and Drug Abuse Patient Records regulations: The Federal rules restrict any use of the information to criminally investigate or prosecute any alcohol or drug abuse patient.[facility] DublinIn the event this information is protected by the Federal Confidentiality of Alcohol and Drug Abuse Patient Records regulations: The Federal rules restrict any use of the information to criminally investigate or prosecute any alcohol or drug abuse patient.[facility] DublinIn the event this information is protected by the Federal Confidentiality of Alcohol and Drug Abuse Patient Records regulations: The Federal rules restrict any use of the information to criminally investigate or prosecute any alcohol or drug abuse patient.[facility] DublinIn the event this information is protected by the Federal Confidentiality of Alcohol and Drug Abuse Patient Records regulations: The Federal rules restrict any use of the information to criminally investigate or prosecute any alcohol or drug abuse patient.[facility] DublinIn the event this information is protected by the Federal Confidentiality of Alcohol and Drug Abuse Patient Records regulations: The Federal rules restrict any use of the information to criminally investigate or prosecute any alcohol or drug abuse patient.[facility] DublinIn the event this information is protected by the Federal Confidentiality of Alcohol and Drug Abuse Patient Records regulations: The Federal rules restrict any use of the information to criminally investigate or prosecute any alcohol or drug abuse patient.[facility] DublinIn the event this information is protected by the Federal Confidentiality of Alcohol and Drug Abuse Patient Records regulations: The Federal rules restrict any use of the information to criminally investigate or prosecute any alcohol or drug abuse patient.[facility] DublinIn the event this information is protected by the Federal Confidentiality of Alcohol and Drug Abuse Patient Records regulations: The Federal rules restrict any use of the information to criminally investigate or prosecute any alcohol or drug abuse patient.[facility] DublinIn the event this information is protected by the Federal Confidentiality of Alcohol and Drug Abuse Patient Records regulations: The Federal rules restrict any use of the information to criminally investigate or prosecute any alcohol or drug abuse patient.[facility] DublinIn the event this information is protected by the Federal Confidentiality of Alcohol and Drug Abuse Patient Records regulations: The Federal rules restrict any use of the information to criminally investigate or prosecute any alcohol or drug abuse patient.[facility] DublinIn the event this information is protected by the Federal Confidentiality of Alcohol and Drug Abuse Patient Records regulations: The Federal rules restrict any use of the information to criminally investigate or prosecute any alcohol or drug abuse patient.[facility] DublinIn the event this information is protected by the Federal Confidentiality of Alcohol and Drug Abuse Patient Records regulations: The Federal rules restrict any use of the information to criminally investigate or prosecute any alcohol or drug abuse patient.[facility] DublinIn the event this information is protected by the Federal Confidentiality of Alcohol and Drug Abuse Patient Records regulations: The Federal rules restrict any use of the information to criminally investigate or prosecute any alcohol or drug abuse patient.[facility] DublinIn the event this information is protected by the Federal Confidentiality of Alcohol and Drug Abuse Patient Records regulations: The Federal rules restrict any use of the information to criminally investigate or prosecute any alcohol or drug abuse patient.[facility] DublinIn the event this information is protected by the Federal Confidentiality of Alcohol and Drug Abuse Patient Records regulations: The Federal rules restrict any use of the information to criminally investigate or prosecute any alcohol or drug abuse patient.[facility] DublinIn the event this information is protected by the Federal Confidentiality of Alcohol and Drug Abuse Patient Records regulations: The Federal rules restrict any use of the information to criminally investigate or prosecute any alcohol or drug abuse patient.[facility] DublinIn the event this information is protected by the Federal Confidentiality of Alcohol and Drug Abuse Patient Records regulations: The Federal rules restrict any use of the information to criminally investigate or prosecute any alcohol or drug abuse patient.[facility] DublinIn the event this information is protected by the Federal Confidentiality of Alcohol and Drug Abuse Patient Records regulations: The Federal rules restrict any use of the information to criminally investigate or prosecute any alcohol or drug abuse patient.[facility] DublinIn the event this information is protected by the Federal Confidentiality of Alcohol and Drug Abuse Patient Records regulations: The Federal rules restrict any use of the information to criminally investigate or prosecute any alcohol or drug abuse patient.[facility] DublinIn the event this information is protected by the Federal Confidentiality of Alcohol and Drug Abuse Patient Records regulations: The Federal rules restrict any use of the information to criminally investigate or prosecute any alcohol or drug abuse patient.[facility] DublinIn the event this information is protected by the Federal Confidentiality of Alcohol and Drug Abuse Patient Records regulations: The Federal rules restrict any use of the information to criminally investigate or prosecute any alcohol or drug abuse patient.[facility] DublinIn the event this information is protected by the Federal Confidentiality of Alcohol and Drug Abuse Patient Records regulations: The Federal rules restrict any use of the information to criminally investigate or prosecute any alcohol or drug abuse patient.[facility] DublinIn the event this information is protected by the Federal Confidentiality of Alcohol and Drug Abuse Patient Records regulations: The Federal rules restrict any use of the information to criminally investigate or prosecute any alcohol or drug abuse patient.[facility] DublinIn the event this information is protected by the Federal Confidentiality of Alcohol and Drug Abuse Patient Records regulations: The Federal rules restrict any use of the information to criminally investigate or prosecute any alcohol or drug abuse patient.[facility] DublinIn the event this information is protected by the Federal Confidentiality of Alcohol and Drug Abuse Patient Records regulations: The Federal rules restrict any use of the information to criminally investigate or prosecute any alcohol or drug abuse patient.[facility] DublinIn the event this information is protected by the Federal Confidentiality of Alcohol and Drug Abuse Patient Records regulations: The Federal rules restrict any use of the information to criminally investigate or prosecute any alcohol or drug abuse patient.[facility] DublinIn the event this information is protected by the Federal Confidentiality of Alcohol and Drug Abuse Patient Records regulations: The Federal rules restrict any use of the information to criminally investigate or prosecute any alcohol or drug abuse patient.[facility] Reason for Visit (unrecogniz ed section and content) Reason Comments Radiology CT Specialty Diagnoses / Procedures Referred By Contac t Referred To Contact CT IMAGING Diagnoses Intra-abdominal and pelvic swelling, mass and lump, unspecified site Procedures CT ABD/PEL W IVCON CT ABD & PELVIS W/CONTRAST Priscila Clarke MD [address] [place] [address] Ct Imaging Referral ID Status Reason Start Date Expiration Date V isits Requested Visits Authorized [id number] Closed Auto-Generat ed Referral Patient Cleared - Admin/Chairm an/Director advise to proceed 04/20/2022 09/29/2022 1 1 Reason Onset Date Comments Refill Request 12/20/2021 Reason Comments F/U 6 Month Reason Comments Results, Lab Reason Comments Results Reason Comments Appointment New patient Reason Comments Application 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 - Other Reason Comments Follow Up colonoscopy and EGD Reason Comments Established Patient Reason Comments Mass on appendix Reason Comments Home Health Orders Reason Comments CoPat Start Reason Onset Date Comments Transition Of Care 06/29/2022 TCM [facility] Discharge 06/28/22 Reason Comments CoPat Management Reason Onset Date Comments Transition Of Care 07/07/2022 TCM follow up [facility] Discharge 06/28/22 Reason Comments Patient Question Reason Comments Radio GI Main HB6 Specialty Diagnoses / Procedures Referred By Contac t Referred To Contact XR IMAGING Diagnoses Postoperative abscess Procedures XR ABSCESS DRAIN INJECTION Nicolasa Denise DO [address] [place] [address] Xr Imaging Referral ID Status Reason Start Date Expiration Date V isits Requested Visits Authorized [id number] Closed Auto-Generate d Referral 07/09/2022 08/08/2023 1 1 Reason Comments Patient Update Reason Comments CoPat Agency Reason Comments Orders Reason Comments Appointment Confirmation Reason Onset Date Comments Transition Of Care 07/13/2022 TCM follow up [facility] Discharge 06/28/22 Reason Comments Outside Lab Results copat Reason Comments Established Patient Reason Onset Date Comments Transition Of Care 07/20/2022 TCM follow up [facility] Discharge 06/28/22 Reason Comments CoPat Stop Reason Comments Infection Follow Up Reason Comments Follow Up Reason Comments Appointment Rescheduled appointm ent from 11/30 to 12/[address] Eaton's schedule change [facility]ty Diagnoses / [facility] Diagnoses Low grade mucinous neoplasm of appendix Procedures XR ABSCESS DRAIN INJECTION Nicolasa Denise, DO [address] [place] [id number] Xr Imaging Referral ID Status Reason Start Date Expiration Date V isits Requested Visits Authorized [id number] Closed Auto-Generate d Referral 08/27/2022 09/26/2023 1 [...] CT Specialty Diagnoses / [facility] Diagnoses Intra-abdominal and pelvic swelling, mass and lump, unspecified site Low grade mucinous neoplasm of appendix Procedures CT CHEST W IVCON DIAGNOSTIC COMPUTED TOMOGRAPHY THORAX W/CONTRAST Nicolasa Denise, DO [address] [place] [id number] Ct Imaging [place] [address] Referral ID Status Reason Start Date Expiration Date V isits Requested Visits Authorized [id number] Closed Auto-Generate d Referral 05/06/2023 02/07/2024 1 1 Reason Comments Depression Follow up on medicat ion change Reason Comments Stoma Consult Reason Onset Date Comments Refill Request 03/23/2024 Specialty Diagnoses / Procedures Referred By [facility] Diagnoses Low grade mucinous neoplasm of appendix Procedures CT ABD/PEL W IVCON CT ABD & PELVIS W/CONTRAST Nicolasa Denise, DO [address] [place] [id number] Imaging [id number] Referral ID Status Reason Start Date Expiration Date Visits Re quested Visits Authorized [id number] Closed 05/01/2024 09/29/2024 2 2 Reason Onset Date Comments Refill Request 11/04/2024 Reason Onset Date Comments Hospital F/U 11/30/2024 Reason Comments Hospital Follow Up Reason Comments Patient Update Called Reason Comments ER F/U Reason Comments Consult Specialty Diagnoses / Procedures Referred By Contac t Referred To Contact Nephrology Diagnoses 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) Elevated serum creatinine Procedures CONSULT TO NEPHROLOGY OFFICE/OUTPATIENT [facility] 60 MINUTES Nicolasa Denise DO [address] [place] [address] Phone: tel: fax: Referral ID Status Reason Start Date Expiration Date V isits Requested Visits Authorized [id number] Closed PCP Requested Referral 02/02/2025 02/02/2026 1 1 Reason Comments Care Coordination Reason Comments Radiology US Specialty Diagnoses / Procedures Referred By Contac t Referred To Contact US IMAGING Diagnoses Acute renal failure, unspecified acute renal failure type Procedures US KIDNEY/BLADDER US RETROPERITONEAL REAL TIME W/IMAGE COMPLETE Nelly Xiao I, MD [address] [place] [address] Phone: tel: fax: US IMAGING [id number] Referral ID Status Reason Start Date Expiration Date V isits Requested Visits Authorized [id number] Closed Auto-Generate d Referral 04/13/2025 05/13/2026 1 1 Reason Onset Date Comments Refill Request 04/15/2025 Reason Comments ER F/U Cellulitis Reason Comments Appointment Care Teams (unrecognized sec tion and content) Study Assistant Relationship Specialty Start Date End Date Harjeet Bernard MD [address] [place], [place] [id number] PCP - General Internal Medicine 03/26/18 Study Assistant Relationship Specialty Start Date End Date Harjeet Bernard MD [address] [place], [place] [id number] PCP - General Internal Medicine 03/26/18 Study Assistant Relationship Specialty Start Date End Date Harjeet Bernard MD [address] [facility] [place] [address] PCP - General Internal Medicine 03/26/18 Study Assistant Relationship Specialty Start Date End Date Harjeet Bernard MD [address] [facility] [place] [address] PCP - General Internal Medicine 03/26/18 Study Assistant Relationship Specialty Start Date End Date Harjeet Bernard MD [address] [facility] [place] [address] PCP - General Internal Medicine 03/26/18 Study Assistant Relationship Specialty Start Date End Date Harjeet Bernard MD [facility] [place] [address] PCP - General Internal Medicine 03/26/18 Study Assistant Relationship Specialty Start Date End Date Harjeet Bernard MD [facility]0 [facility] [place] [address] PCP - General Internal Medicine 03/26/18 Study Assistant Relationship Specialty Start Date End Date Harjeet Bernard MD [facility]0 [facility] [place] [address] PCP - General Internal Medicine 03/26/18 Study Assistant Relationship Specialty Start Date End Date Harjeet Bernard MD [address] [facility] [place] [address] PCP - General Internal Medicine 03/26/18 Fany Parnell, [address] [place] [place] [address] Hematology/Oncology 05/03/22 Study Assistant Relationship Specialty Start Date End Date Harjeet Bernard MD [address] [facility] [place] [address] PCP - General Internal Medicine 03/26/18 Fany Parnell, DO [address] [place] [address] Hematology/Oncology 05/03/22 Study Assistant Relationship Specialty Start Date End Date Harjeet Bernard MD [address] [place] [address] PCP - General Internal Medicine 03/26/18 Fany Parnell, DO [address] [place] [address] Hematology/Oncology 05/03/22 Study Assistant Relationship Specialty Start Date End Date Harjeet Bernard MD [address] [place] [address] PCP - General Internal Medicine 03/26/18 Fany Parnell, DO [address] [place] [address] Hematology/Oncology 05/03/22 Study Assistant Relationship Specialty Start Date End Date Harjeet Bernard MD [address] [place] [address] PCP - General Internal Medicine 03/26/18 Fany Parnell, DO [address] [place] [address] Hematology/Oncology 05/03/22 Study Assistant Relationship Specialty Start Date End Date Harjeet Bernard MD [address] [place] [address] PCP - General Internal Medicine 03/26/18 Fany Parnell, DO [address] [place] [address] Hematology/Oncology 05/03/22 Study Assistant Relationship Specialty Start Date End Date Harjeet Bernard MD [address] [facility] [place] [address] PCP - General Internal Medicine 03/26/18 Fany Parnell, DO [address] [facility] [place] [address] Hematology/Oncology 05/03/22 Study Assistant Relationship Specialty Start Date End Date Harjeet Bernard MD [address] [facility] [place] [address] PCP - General Internal Medicine 03/26/18 Fany Parnell, DO [address] [facility] [place] [address] Hematology/Oncology 05/03/22 Graciela Weeks RN [address] [place] [address] Primary Care Economic Forecaster Internal Medicine 06/29/22 07/29/22 Study Assistant Relationship Specialty Start Date End Date Harjeet Bernard MD [address] [place] [address] PCP - General Internal Medicine 03/26/18 Fany Parnell, DO [address] [facility] [place] [address] Hematology/Oncology 05/03/22 Graciela Weeks RN [address] [place] [address] Primary Care Economic Forecaster Internal Medicine 06/29/22 07/29/22 Study Assistant Relationship Specialty Start Date End Date Harjeet Bernard MD [address] [place] [address] PCP - General Internal Medicine 03/26/18 Fany Parnell, DO [address] [facility] [address] Hematology/Oncology 05/03/22 Graciela Weeks, RN [address] [place] [address] Primary Care Economic Forecaster Internal Medicine 06/29/22 07/29/22 Study Assistant Relationship Specialty Start Date End Date Harjeet Bernard MD [address] [facility] [place] [address] PCP - General Internal Medicine 03/26/18 Fany Parnell, DO [address] [facility] [place] [address] Hematology/Oncology 05/03/22 Graciela Weeks RN [address] [facility] [place] [address] Primary Care Economic Forecaster Internal Medicine 06/29/22 07/29/22 Study Assistant Relationship Specialty Start Date End Date Harjeet Bernard MD [address] [facility] [place] [address] PCP - General Internal Medicine 03/26/18 Fany Parnell, DO [address] [facility] [place] [address] Hematology/Oncology 05/03/22 Graciela Weeks RN [address] [place] [address] Primary Care Economic Forecaster Internal Medicine 06/29/22 07/29/22 Study Assistant Relationship Specialty Start Date End Date Harjeet Bernard MD [address] [facility] [place] [address] PCP - General Internal Medicine 03/26/18 Fany Parnell, DO [address] [facility] [address] Hematology/Oncology 05/03/22 Graciela Weeks RN [address] [place] [address] Primary Care Economic Forecaster Internal Medicine 06/29/22 07/29/22 Study Assistant Relationship Specialty Start Date End Date Harjeet Bernard MD [address] [facility] [place] [address] PCP - General Internal Medicine 03/26/18 Fany Parnell, DO [address] [facility] [address] Hematology/Oncology 05/03/22 Graciela Weeks, RN [address] [place] [address] Primary Care Economic Forecaster Internal Medicine 06/29/22 07/29/22 Study Assistant Relationship Specialty Start Date End Date Harjeet Bernard MD [address] [facility] [place] [address] PCP - General Internal Medicine 03/26/18 Fany Parnell, DO [address] [facility] [address] Hematology/Oncology 05/03/22 Graciela Weeks, RN [address] [place] [address] Primary Care Economic Forecaster Internal Medicine 06/29/22 07/29/22 Study Assistant Relationship Specialty Start Date End Date Harjeet Bernard MD [address] [facility] [place] [address] PCP - General Internal Medicine 03/26/18 Fany Parnell, DO [address] [facility] [address] Hematology/Oncology 05/03/22 Study Assistant Relationship Specialty Start Date End Date Harjeet Bernard MD [address] [facility] [place] [address] PCP - General Internal Medicine 03/26/18 Fany Parnell, DO [address] [place] [address] Hematology/Oncology 05/03/22 Study Assistant Relationship Specialty Start Date End Date Harjeet Bernard MD [address] [place] [address] PCP - General Internal Medicine 03/26/18 Fany Parnell, DO [address] [place] [address] Hematology/Oncology 05/03/22 Graciela Weeks, PEDRO LUIS [address] [place] [address] Primary Care Economic Forecaster Internal Medicine 06/29/22 07/29/22 Study Assistant Relationship Specialty Start Date End Date Harjeet Bernard MD [address] [facility] [place] [address] PCP - General Internal Medicine 03/26/18 Fany Parnell, DO [address] [place] [address] Hematology/Oncology 05/03/22 Study Assistant Relationship Specialty Start Date End Date Harjeet Bernard MD [address] [facility] [place] [address] PCP - General Internal Medicine 03/26/18 Fany Parnell, DO [address] [place] [address] Hematology/Oncology 05/03/22 Study Assistant Relationship Specialty Start Date End Date Harjeet Bernard MD [address] [place] [address] PCP - General Internal Medicine 03/26/18 Fany Parnell, DO [address] [place] [address] Hematology/Oncology 05/03/22 Study Assistant Relationship Specialty Start Date End Date Harjeet Bernard MD [address] [place] [address] PCP - General Internal Medicine 03/26/18 Fany Parnell, DO [address] [place] [address] Hematology/Oncology 05/03/22 Study Assistant Relationship Specialty Start Date End Date Harjeet Bernard MD [address] [place] [address] PCP - General Internal Medicine 03/26/18 Fany Parnell, DO [address] [place] [address] Hematology/Oncology 05/03/22 Study Assistant Relationship Specialty Start Date End Date Harjeet Bernard MD [address] [place] [address] PCP - General Internal Medicine 03/26/18 Fany Parnell, DO [address] [place] [address] Hematology/Oncology 05/03/22 Study Assistant Relationship Specialty Start Date End Date Harjeet Bernard MD [address] [place] [address] PCP - General Internal Medicine 03/26/18 Fany Parnell, DO [address] [place] [address] Hematology/Oncology 05/03/22 Study Assistant Relationship Specialty Start Date End Date Harjeet Bernard MD [address] [place] [address] PCP - General Internal Medicine 03/26/18 Fany Parnell, DO [address] [place] [address] Hematology/Oncology 05/03/22 Team Status: Active Member Role Status Dates Nicolasa Savage Family Provider Active Dr. Harjeet Bernard MD Primary Care Provider Active Team Status: Inactive Member Role Status Dates Dr. Harjeet Bernard MD Primary Care Provider Active NORA VILLARREAL Attending Provider Active Study Assistant Relationship Specialty Start Date End Date Harjeet Bernard MD [address] [place] [address] PCP - General Internal Medicine 03/26/18 Fany Parnell, DO [address] [place] [address] Hematology/Oncology 05/03/22 Study Assistant Relationship Specialty Start Date End Date Harjeet Bernard MD [address] [place] [address] PCP - General Internal Medicine 03/26/18 Fany Parnell, DO [address] [place] [address] Hematology/Oncology 05/03/22 Study Assistant Relationship Specialty Start Date End Date Harjeet Bernard MD [address] [place] [address] PCP - General Internal Medicine 03/26/18 Fany Parnell, DO [address] [place] [address] Hematology/Oncology 05/03/22 Study Assistant Relationship Specialty Start Date End Date Harjeet Bernard MD [address] [place] [address] PCP - General Internal Medicine 03/26/18 Fany Parnell DO [address] [place] [address] Hematology/Oncology 05/03/22 Study Assistant Relationship Specialty Start Date End Date Harjeet Bernard MD [address] [place] [address] PCP - General Internal Medicine 03/26/18 Fany Parnell DO [address] [place] [address] Hematology/Oncology 05/03/22 Study Assistant Relationship Specialty Start Date End Date Harjeet Bernard MD [address] [place] [address] PCP - General Internal Medicine 03/26/18 Fany Parnell DO [address] [place] [address] Hematology/Oncology 05/03/22 Study Assistant Relationship Specialty Start Date End Date Harjeet Bernard MD [address] [place] [address] PCP - General Internal Medicine 03/26/18 Fany Parnell DO [address] [place] [address] Hematology/Oncology 05/03/22 Study Assistant Relationship Specialty Start Date End Date Harjeet Bernard MD [address] [place] [address] PCP - General Internal Medicine 03/26/18 Fany Parnell DO [address] [place] [address] Hematology/Oncology 05/03/22 Study Assistant Relationship Specialty Start Date End Date Harjeet Bernard MD [address] [place] [address] PCP - General Internal Medicine 03/26/18 Fany Parnell DO [address] [facility] [place] [address] Hematology/Oncology 05/03/22 Study Assistant Relationship Specialty Start Date End Date Harjeet Bernard MD [address] [place] [address] PCP - General Internal Medicine 03/26/18 Fany Parnell DO [address] [place] [address] Hematology/Oncology 05/03/22 Study Assistant Relationship Specialty Start Date End Date Harjeet Bernard MD [address] [place] [address] PCP - General Internal Medicine 03/26/18 Fany Parnell DO [address] [place] [address] Hematology/Oncology 05/03/22 Study Assistant Relationship Specialty Start Date End Date Harjeet Bernard MD [address] [place] [address] PCP - General Internal Medicine 03/26/18 Fany Parnell DO [address] [place] [address] Hematology/Oncology 05/03/22 Study Assistant Relationship Specialty Start Date End Date Harjeet Bernard MD [address] [place] [address] PCP - General Internal Medicine 03/26/18 Fany Parnell DO [address] [facility] [place] [address] Hematology/Oncology 05/03/22 Study Assistant Relationship Specialty Start Date End Date Harjeet Bernard MD [address] [facility] [place] [address] PCP - General Internal Medicine 03/26/18 Fany Parnell DO [address] [facility] [place] [address] Hematology/Oncology 05/03/22 Study Assistant Relationship Specialty Start Date End Date Harjeet Bernard MD [address] [facility] [place] [address] PCP - General Internal Medicine 03/26/18 Fany Parnell DO [address] [facility] [place] [address] Hematology/Oncology 05/03/22 Study Assistant Relationship Specialty Start Date End Date Harjeet Bernard MD [address] [facility] [place] [address] PCP - General Internal Medicine 03/26/18 Fany Parnell DO [address] [place] [address] Hematology/Oncology 05/03/22 Study Assistant Relationship Specialty Start Date End Date Harjeet Bernard MD [address] [facility] [place] [address] PCP - General Internal Medicine 03/26/18 Fany Parnell DO [address] [place] [address] Hematology/Oncology 05/03/22 Study Assistant Relationship Specialty Start Date End Date Harjeet Bernard MD [address] [facility] [place] [address] PCP - General Internal Medicine 03/26/18 Fany Parnell DO [address] [facility] [place] [address] Hematology/Oncology 05/03/22 Study Assistant Relationship Specialty Start Date End Date Harjeet Bernard MD [address] [facility] [place] [address] PCP - General Internal Medicine 03/26/18 Fany Parnell DO [address] [facility] [place] [address] Hematology/Oncology 05/03/22 Julissa Ugarte APRN.FLOTATION TENDER [address] [facility] [place] [address] [employer] Ath[employer] Internal Medicine 09/07/24 Meri Menendez APRN.CNC SUPERVISOR [address] [place] [address] [employer] Internal Medicine 09/07/24 Study Assistant Relationship Specialty Start Date End Date Harjeet Bernard MD [address] [place] [address] PCP - General Internal Medicine 03/26/18 Fany Parnell DO [address] [place] [address] Hematology/Oncology 05/03/22 Julissa Ugarte APRN.FLOTATION TENDER [address] [place] [address] College Athlete Internal Medicine 09/07/24 Meri Menendez APRN.CNC SUPERVISOR [address] [place] [address] [employer] Ath[employer] Internal Medicine 09/07/24 Study Assistant Relationship Specialty Start Date End Date Harjeet Bernard MD [address] [place] [address] PCP - General Internal Medicine 03/26/18 Fany Parnell DO [address] [place] [address] Hematology/Oncology 05/03/22 Julissa Ugarte THERAPIST RESPIRATORY.FLOTATION TENDER [address] [place] [address] [employer] Athlete Internal Medicine 09/07/24 Meri Menendez THERAPIST RESPIRATORY.CNC SUPERVISOR [address] [place] [address] [employer] Ath[employer] Internal Medicine 09/07/24 Study Assistant Relationship Specialty Start Date End Date Harjeet Bernard MD [address] [place] [address] PCP - General Internal Medicine 03/26/18 Fany Parnell DO [address] [place] [address] Hematology/Oncology 05/03/22 Julissa Ugarte, THERAPIST RESPIRATORY.FLOTATION TENDER [address] [facility] [place] [address] [employer] Ath[employer] Internal Medicine 09/07/24 Meri Menendez THERAPIST RESPIRATORY.CNC SUPERVISOR [address] [facility] [place] [address] [employer] Ath[employer] Internal Medicine 09/07/24 Study Assistant Relationship Specialty Start Date End Date Harjeet Bernard MD [address] [place] [address] PCP - General Internal Medicine 03/26/18 Fany Parnell DO [address] [place] [address] Hematology/Oncology 05/03/22 Julissa Ugarte, THERAPIST RESPIRATORY.FLOTATION TENDER [address] [place] [address] [employer] Internal Medicine 09/07/24 Meri Menendez THERAPIST RESPIRATORY.CNC SUPERVISOR [address] [place] [address] [employer] Internal Medicine 09/07/24 Study Assistant Relationship Specialty Start Date End Date Harjeet Bernard MD [address] [place] [address] PCP - General Internal Medicine 03/26/18 Fany Parnell DO [address] [place] [address] Hematology/Oncology 05/03/22 Julissa Ugarte, THERAPIST RESPIRATORY.FLOTATION TENDER [address] [place] [address] [employer] Internal Medicine 09/07/24 Meri Menendez APRN.CNC SUPERVISOR [address] [place] [address] [employer] Ath[employer] Internal Medicine 09/07/24 Study Assistant Relationship Specialty Start Date End Date Harjeet Bernard MD [address] [address] PCP - General Internal Medicine 03/26/18 Fany Parnell DO [address] [place] [address] Hematology/Oncology 05/03/22 Julissa Ugarte, THERAPIST RESPIRATORY.FLOTATION TENDER [address] [place] [address] [employer] Ath[employer] Internal Medicine 09/07/24 Meri Menendez APRN.CNC SUPERVISOR [address] [place] [address] [employer] Internal Medicine 09/07/24 Study Assistant Relationship Specialty Start Date End Date Harjeet Bernard MD [address] [place] [address] PCP - General Internal Medicine 03/26/18 Fany Parnell DO [address] [place] [address] Hematology/Oncology 05/03/22 Julissa Ugarte, THERAPIST RESPIRATORY.FLOTATION TENDER [address] [place] [address] [employer] Internal Medicine 09/07/24 Meri Menendez THERAPIST RESPIRATORY.CNC SUPERVISOR [address] [place] [address] [employer] Internal Medicine 09/07/24 Study Assistant Relationship Specialty Start Date End Date Harjeet Bernard MD [address] [place] [address] PCP - General Internal Medicine 03/26/18 Fany Parnell DO [address] [place] [address] Hematology/Oncology 05/03/22 Julissa Ugarte, THERAPIST RESPIRATORY.FLOTATION TENDER [address] [place] [address] [employer] Internal Medicine 09/07/24 Meri Menendez THERAPIST RESPIRATORY.CNC SUPERVISOR [address] [place] [address] [employer] Internal Medicine 09/07/24 Study Assistant Relationship Specialty Start Date End Date Harjeet Bernard MD [address] [place] [address] PCP - General Internal Medicine 03/26/18 Fany Parnell DO [address] [place] [address] Hematology/Oncology 05/03/22 Julissa Ugarte, THERAPIST RESPIRATORY.FLOTATION TENDER [address] [facility] [place] [address] [facility] Internal Medicine 09/07/24 Meri Menendez, THERAPIST RESPIRATORY.CNC SUPERVISOR [address] [place] [address] [facility] Internal Medicine 09/07/24 Study Assistant Relationship Specialty Start Date End Date Harjeet Bernard MD [address] [place] [address] PCP - General Internal Medicine 03/26/18 Fany Parnell DO [address] [place] [address] Hematology/Oncology 05/03/22 Julissa Ugarte, THERAPIST RESPIRATORY.FLOTATION TENDER [address] [facility] [place] [address] [facility] Internal Medicine 09/07/24 Team Status: Active Member [...] End: November 29, 2024 Dr. Ibrahima Doan , Admit Provider Active Star t: November 27, 2024 End: November 29, 2024 Dr. Ibrahima Doan DO Other Provider Active Star t: November 27, 2024 End: November 29, 2024 Dr. Sara Quezada , [...] November 27, 2024 Dr. Sara Quezada , DO Other [...] November 28, 2024 Dr. Sara Quezada , DO Other [...] Attending Provider Active Start: December 16, 2024 Study Assistant Relationship Specialty Start Date End Date Harjeet Bernard MD [address] [place] [address] PCP - General Internal Medicine 03/26/18 Fany Parnell DO [address] [place] [address] Hematology/Oncology 05/03/22 Julissa Ugarte, THERAPIST RESPIRATORY.FLOTATION TENDER [address] [place] [address] [employer] Internal Medicine 09/07/24 Meri Menendez THERAPIST RESPIRATORY.CNC SUPERVISOR [address] [place] [address] [employer] Internal Medicine 12/22/24 Study Assistant Relationship Specialty Start Date End Date Harjeet Bernard MD [address] [place] [address] PCP - General Internal Medicine 03/26/18 Fany Parnell DO [address] [place] [address] Hematology/Oncology 05/03/22 Julissa Ugarte, THERAPIST RESPIRATORY.FLOTATION TENDER [address] [place] [address] [employer] Internal Medicine 09/07/24 Meri Menendez THERAPIST RESPIRATORY.CNC SUPERVISOR [address] [place] [address] [employer] Internal Medicine 12/22/24 Study Assistant Relationship Specialty Start Date End Date Harjeet Bernard MD [address] [place] [address] PCP - General Internal Medicine 03/26/18 Fany Parnell DO [address] [place] [address] Hematology/Oncology 05/03/22 Julissa Ugarte, THERAPIST RESPIRATORY.FLOTATION TENDER [address] [place], [place] [address] [employer] Internal Medicine 09/07/24 Meri Menendez, THERAPIST RESPIRATORY.CNC SUPERVISOR [address] [place], [place] [address] [employer] Internal Medicine 12/22/24 Team Status: Active Member Role Status Dates Dr. Harjeet Bernard MD Primary Care Provider Active Start: December 16, 2024 Dr. Ibrahima Camarena , Emergency Provider Active Start: December 16, 2024 Dr. Mk Jc , Admit Provider Active S tart: December 16, 2024 Dr. Mk Jc , Attending Provider Active Start: December 16, 2024 [...] January 15, 2025 End: January 15, 2025 Study Assistant Relationship Specialty Start Date End Date Harjeet Bernard MD [address] [place], [place] [id number] PCP - General Internal Medicine 03/26/18 Fany Parnell DO [address] [place] [id number] Hematology/Oncology 05/03/22 Julissa Ugarte, THERAPIST RESPIRATORY.FLOTATION TENDER [address] [facility] [place] [address] College Athlete Internal Medicine 09/07/24 Meri Menendez THERAPIST RESPIRATORY.CNC SUPERVISOR [address] [facility] [place] [address] [facility] Internal Medicine 12/22/24 Study Assistant Relationship Specialty Start Date End Date Harjeet Bernard MD [address] [facility] [place] [address] PCP - General Internal Medicine 03/26/18 Fany Parnell DO [address] [place] [address] Hematology/Oncology 05/03/22 Julissa Ugarte, THERAPIST RESPIRATORY.FLOTATION TENDER [address] [facility] [place] [address] [facility] Internal Medicine 09/07/24 Meri Menendez THERAPIST RESPIRATORY.CNC SUPERVISOR [address] [facility] [place] [address] [facility] Internal Medicine 12/22/24 Study Assistant Relationship Specialty Start Date End Date Harjeet Bernard MD [address] [facility] [place] [address] PCP - General Internal Medicine 03/26/18 Fany Parnell DO [address] [place] [address] Hematology/Oncology 05/03/22 Julissa Ugarte, THERAPIST RESPIRATORY.FLOTATION TENDER [address] [facility] [address] College Athlete Internal Medicine 09/07/24 Meri Menendez APRN.CNC SUPERVISOR [address] [facility] [place] [address] [facility] Internal Medicine 09/07/24 12/18/24 Meri Menendez APRN.CNC SUPERVISOR [address] [facility] [place] [address] [facility] Internal Medicine 12/22/24 Study Assistant Relationship Specialty Start Date End Date Harjeet Bernard MD [address] [facility] [place] [address] PCP - General Internal Medicine 03/26/18 Fany Parnell DO [address] [facility] [address] Hematology/Oncology 05/03/22 Julissa Ugarte APRN.FLOTATION TENDER [address] [facility] [place] [address] [facility] Internal Medicine 09/07/24 02/16/25 Meri Menendez APRN.CNC SUPERVISOR [address] [facility] [place] [address] [facility] Internal Medicine 12/22/24 Team Status: Active Member Role/Relationship Status Dates Dr. Harjeet Bernard MD Primary Care Provider Active Team Status: Inactive Member Role/Relationship Status Dates Dr. Harjeet Bernard MD Primary Care Provider Active Start: November 27, 2024 End: November 29, 2024 Dr. Jose Harman MD Emergency Provider Active Sta rt: November 27, 2024 End: November 29, 2024 Dr. Ibrahima Doan , Admit Provider Active Star t: November 27, [...] rt: November 28, 2024 Dr. Ibrahima Doan , Admit Provider Active Star t: November 28, [...] t: November 29, 2024 Dr. Sara Quezada DO [...] March 28, 2025 End: March 28, 2025 Study Assistant Relationship Specialty Start Date End Date Harjeet Bernard MD [address] [place] [address] PCP - General Internal Medicine 03/26/18 Fany Parnell DO [address] [facility] [address] Hematology/Oncology 05/03/22 Meri Menendez APRN.CNC SUPERVISOR [address] [facility] [place] [address] College Athlete Internal Medicine 12/22/24 Julissa Ugarte APRN.FLOTATION TENDER [address] [facility] [place] [address] [facility] Internal Medicine 02/17/25 Study Assistant Relationship Specialty Start Date End Date Harjeet Bernard MD [address] [facility] [place] [address] PCP - General Internal Medicine 03/26/18 Fany Parnell DO [address] [facility] [place] [address] Hematology/Oncology 05/03/22 Meri Menendez APRN.CNC SUPERVISOR [address] [facility] [place] [address] [facility] Internal Medicine 12/22/24 Julissa Ugarte, PERLA.FLOTATION TENDER [address] [facility] [place] [address] [facility] Internal Medicine 02/17/25 Team Status: Inactive Member [...] December 15, 2024 Dr. Mk Jc , DO Admit [...] April 12, 2025 End: April 12, 2025 Natehn Walker MD Emergency Provider Active Star t: April 12, 2025 End: April 12, 2025 Study Assistant Relationship Specialty Start Date End Date Harjeet Bernard MD [address] [facility] [place] [address] PCP - General Internal Medicine 03/26/18 Fany Parnell DO [address] [place] [address] Hematology/Oncology 05/03/22 Meri Menendez APRN.CNC SUPERVISOR [address] [place] [address] College Athlete Internal Medicine 12/22/24 Julissa Ugarte THERAPIST RESPIRATORY.FLOTATION TENDER [address] [place] [address] College Athlete Internal Medicine 02/17/25 Study Assistant Relationship Specialty Start Date End Date Harjeet Bernard MD [address] [place] [address] PCP - General Internal Medicine 03/26/18 Fany Parnell DO [address] [place] [address] Hematology/Oncology 05/03/22 Meri Menendez APRN.CNC SUPERVISOR [address] [place] [address] [employer] Athlete Internal Medicine 12/22/24 Julissa Ugarte APRN.FLOTATION TENDER [address] [place] [address] [employer] Ath[employer] Internal Medicine 02/17/25 Study Assistant Relationship Specialty Start Date End Date Harjeet Bernard MD [address] [place] [address] PCP - General Internal Medicine 03/26/18 Fany Parnell DO [address] [place] [address] Hematology/Oncology 05/03/22 Meri Menendez THERAPIST RESPIRATORY.CNC SUPERVISOR [address] [place] [address] College Athlete Internal Medicine 12/22/24 Julissa Ugarte, THERAPIST RESPIRATORY.FLOTATION TENDER [address] [place] [address] [employer] Athlete Internal Medicine 02/17/25 Study Assistant Relationship Specialty Start Date End Date Harjeet Bernard MD [address] [place] [address] PCP - General Internal Medicine 03/26/18 Fany Parnell DO [address] [place] [address] Hematology/Oncology 05/03/22 Meri Menendez THERAPIST RESPIRATORY.CNC SUPERVISOR [address] [place] [address] [employer] Internal Medicine 12/22/24 uJlissa Ugarte, THERAPIST RESPIRATORY.FLOTATION TENDER [address] [place] [address] [employer] Ath[employer] Internal Medicine 02/17/25 Study Assistant Relationship Specialty Start Date End Date Harjeet Bernard MD [address] [place] [address] PCP - General Internal Medicine 03/26/18 Fany Parnell DO [address] [place] [address] Hematology/Oncology 05/03/22 Meri Menendez APRN.CNC SUPERVISOR [address] [place] [address] College Athlete Internal Medicine 12/22/24 Julissa Ugarte THERAPIST RESPIRATORY.FLOTATION TENDER [address] [place] [address] [employer] Ath[employer] Internal Medicine 02/17/25 Study Assistant Relationship Specialty Start Date End Date Harjeet Bernard MD [address] [place] [address] PCP - General Internal Medicine 03/26/18 Fany Parnell DO [address] [place] [address] Hematology/Oncology 05/03/22 Meri Menendez THERAPIST RESPIRATORY.CNC SUPERVISOR [address] [place] [address] [employer] Athlete Internal Medicine 12/22/24 Julissa Ugarte APRN.FLOTATION TENDER [address] [place] [address] [employer] Athlete Internal Medicine 02/17/25 Study Assistant Relationship Specialty Start Date End Date Harjeet Bernard MD [address] [place] [address] PCP - General Internal Medicine 03/26/18 Fany Parnell DO [address] [place] [address] Hematology/Oncology 05/03/22 Meri Menendez APRN.CNC SUPERVISOR [address] [facility] [place] [address] College Athlete Internal Medicine 12/22/24 Julissa Ugarte APRN.FLOTATION TENDER [address] [place] [address] [employer] Athlete Internal Medicine 02/17/25 Study Assistant Relationship Specialty Start Date End Date Harjeet Bernard MD [address] [place] [address] PCP - General Internal Medicine 03/26/18 Fany Parnell DO [address] [place] [address] Hematology/Oncology 05/03/22 Meri Menendez THERAPIST RESPIRATORY.CNC SUPERVISOR [address] [place] [address] College Athlete Internal Medicine 12/22/24 Julissa Ugarte APRN.FLOTATION TENDER [address] [place] [address] [employer] Ath[employer] Internal Medicine 02/17/25 Team Status: Inactive Member [...] End: April 12, 2025 Nathen Walker MD Attending Provider Active Star t: April 12, 2025 End: April 12, 2025 Nathen Walker MD Emergency Provider Active Star t: April 12, 2025 End: April 12, 2025 Team Status: Active Member Role/Relationship Status Dates Dr. Harjeet Bernard MD Primary Care Provider Active Start: May 20, 2025 Dr. Primo May DO Emergency Provider Active Start: May 20, 2025 Dr. Hamzah Alvarez MD Admit Provider Active Star t: May 20, 2025 Dr. Hamzah Alvarez MD Attending Provider Active Start: May 20, 2025 Team Status: Inactive Member Role/Relationship Status Dates Dr. Harjeet Bernard MD Primary Care Provider Active Start: May 20, 2025 End: May 22, 2025 Dr. Primo May DO Emergency Provider Active Start: May 20, 2025 End: May 22, 2025 Dr. Hamzah Alvarez MD Admit Provider Active Star t: May 20, 2025 End: May 22, 2025 Dr. Hamzah Alvarez MD Attending Provider Active Start: May 20, 2025 End: May 22, 2025 Dr. Renita Aguilar MD Other Provider Active Start: May 20, 2025 End: May 22, 2025 Team Status: Active Member Role/Relationship Status Dates Dr. Harjeet Bernard MD Primary Care Provider Active Start: May 20, 2025 Dr. Primo May DO Emergency Provider Active Start: May 20, 2025 Dr. Hamzah Alvarez MD Admit Provider Active Star t: May 20, 2025 Dr. Hamzah Alvarez MD Attending Provider Active Start: May 20, 2025 Dr. Hamzah Alvarez MD Other Provider Active Star t: May 20, 2025 Dr. Renita Aguilar MD Other Provider Active Start: May 20, 2025 Team Status: Active Member Role/Relationship Status Dates Dr. Harjeet Bernard MD Primary Care Provider Active Start: May 21, 2025 Dr. Primo May DO Emergency Provider Active Start: May 21, 2025 Dr. Hamzah Alvarez MD Admit Provider Active Star t: May 21, 2025 Dr. Hamzah Alvarez MD Other Provider Active Star t: May 21, 2025 Dr. Renita Aguilar MD Other Provider Active Start: May 21, 2025 Dr. Antonette Perera MD Attending Provider Active Start: May 21, 2025 Team Status: Active Member Role/Relationship Status Dates Dr. Harjeet Bernard MD Primary Care Provider Active Start: May 22, 2025 Dr. Primo May DO Emergency Provider Active Start: May 22, 2025 Dr. Hamzah Alvarez MD Admit Provider Active Star t: May 22, 2025 Dr. Hamzah Alvarez MD Attending Provider Active Start: May 22, 2025 Dr. Hamzah Alvarez MD Other Provider Active Star t: May 22, 2025 Dr. Renita Aguilar MD Other Provider Active Start: May 22, 2025 (unrecognized sect ion and content) No Status Records FoundNo Status Records FoundNo Status Records Found INFORMATION SOURCE (unrecogn ized section and content) DATE CREATED AUTHOR 07/04/2022 [facility] DATE CREATED AUTHOR AUTHOR'S ORGANIZ ATION 05/21/2025 [facility] DATE CREATED AUTHOR AUTHOR'S ORGANIZ ATION 05/24/2025 [facility] Goals (unrecognized section and content) Goals may be documented in a n alternate sectionGoals may be documented in an alternate sectionGoals may be documented in an [...] BE BASED ON THE PRIMARY CLINICAL RECORDS. [facility]. provides no warranty or guarantee of the accuracy or completeness of information in this document.
[2025-05-24] MEDS: Ceftriaxone 2 GM in 0.9% Normal Saline (50mL MB+) 50 ML IV (08:37)
[2025-05-24] MEDS: Azithromycin 500 MG in 0.9% Normal Saline (250mL Bag) 250 ML 255 MG IV (09:10)
--- NOTE | 2025-05-24 10:01 | CON.PCM.SX_ITS ---
Assessment & Plan Assessment/Plan (1) Chronic kidney disease: (2) Leukocytosis: (3) Metabolic acidosis: (4) Hyperkalemia: PLAN: Plan The patient is a 55-year-old male with a history of appendiceal carcinoma initially diagnosed and treated about 3 years ago. Patient underwent debulking surgery along with intraperitoneal chemotherapy. According to the patient it sounds as though there was residual disease at the time of the surgery. Patient clinically has been having issues with ongoing renal insufficiency secondary to dehydration. He continues to have worsening GI issues namely nausea and vomiting as well. Review of his CT scan seems to indicate fairly extensive omental caking. I feel it is in the patient's best interest to be reevaluated/restaged at [facility] given his worsening disease and ongoing issues with dehydration and chronic renal insufficiency. Patient and requesting transfer. Discussed with the ER physician as well as hospital medicine physician as well. All are in agreement. HPI Consult Data Date of Consult: 05/24/25 HPI Narrative Reason for Consultation: Nausea, vomiting and gastric distention HPI Narrative: DOV BURROWS, is a 55 M who presents to the ER with complaints of nausea and vomiting. Patient has a history of appendiceal carcinoma treated about 3 years ago with debulking surgery and intraperitoneal chemotherapy. It sounds as though the disease was not able to be fully removed surgically. Patient has been having ongoing issues with chronic kidney disease as related to dehydration. He does have an ileostomy that frequently has significant watery output resulting in dehydration and kidney injury. Patient was just admitted for renal insufficiency and was just discharged 2 to 3 days ago. Once home he has been having ongoing nausea and vomiting, and just generally feeling unwell. He presents to the emergency department this morning for further evaluation. Patient was scheduled to see his colorectal surgeon (Dr Chad Denise) at [facility] in the next couple of months for his yearly follow-up. CT scan last week as well as today seem to indicate pretty significant bulky omental caking. It is uncertain if this represents progression of his disease as prior CT scans have been performed [facility]. Patient not currently receiving any type of chemotherapy. And has not received chemotherapy other than the intraperitoneal chemotherapy at his initial surgery. Patient was to be admitted by hospitalist service and hospital medicine recommended surgical consultation. After lengthy discussion with patient as well as his , they are requesting transfer to [facility] which I feel is appropriate given his multiple admissions recently and what seems to be progression of his disease. [facility] Medical History Dehydration Acute kidney injury Cancer of appendix Ileostomy present Acute appendicitis Home Medications ?Medication ?Instructions ?Recorded ?Last Taken ?Type bupropion HCl 150 mg tablet,12 hr 150 mg PO DAILY mood 05/04/24 05/20/25 05:30 History sustained-release fluvoxamine 150 mg 150 mg PO DAILY depression 0 05/04/24 05/19/25 22:45 History capsule,extended release 24 hr ondansetron 8 mg disintegrating 8 mg PO Q8H PRN nausea and 05/04/24 Unknown Rx tablet vomiting #20 tabs psyllium husk 3 gram oral powder 1 packet PO TID stool #54 ea 11/29/24 05/19/25 Rx packet (Daily Fiber (psyllium-aspartame)) dicyclomine 20 mg tablet 20 mg PO .QID PRN diarrhea # 20 tabs 12/16/24 05/19/25 Rx diphenoxylate-atropine 2.5 2 tab PO Q6H PRN diarrhea # 30 tabs 12/16/24 05/19/25 Rx mg-0.025 mg tablet (Lomotil) omeprazole 40 mg capsule,delayed 40 mg PO DAILY reflux 05/20/25 05/19/25 History release sodium bicarbonate 650 mg tablet 650 mg PO TID kidneys 05/20/25 05/20/25 05:30 History Allergy/AdvReac Type Severity Reaction Status Date / Time No Known Allergies Allergy Verified 05/24/25 06:03 Family History Other VTE (venous thromboembolism) Surgical History S/P splenectomy H/O colectomy Social History (Updated 05/20/25 @ 09:25 by Debra Rangel) household members: spouse housing: house pets and animals: Yes Smoking Status: Never smoker Physical Exam Narrative Patient is awake and alert. He is in no acute distress. Pupils equal round and reactive to light. Lungs are clear to auscultation bilaterally. Abdomen is rather firm. Does not seem to be appreciably tender. There is some watery stool fluid in his ostomy bag. The ileostomy itself appears healthy and viable. Lab / Micro Data 05/24/25 06:02 05/24/25 06:02 Labs: Laboratory Results - last 24 hr 05/24/25 06:02: WBC 15.5 H, RBC 3.68 L, Hgb 11.0 L, Hct 35.0 L, MCV 95.1 H D, MCH 29.9, MCHC 31.4 L D, RDW Std Deviation 49.3 H, RDW Coeff of Dirk 14.3, Plt Count 425, MPV 9.0, Immature Gran % (Auto) 0.500, Neut % (Auto) 86.9 H, Lymph % (Auto) 3.4 L, Dolores % (Auto) 9.0, Eos % (Auto) 0.1, Baso % (Auto) 0.1, Absolute Neuts (auto) 13.4 H, Absolute Lymphs (auto) 0.53 L, Nucleated RBC % 0, Sodium 131 L, Potassium 4.5, Chloride 104, Carbon Dioxide 10.8 L, Anion Gap 16 H, BUN 68 H, Creatinine 2.57 H, Estim Creat Clear Calc 37.57 L, Est GFR (MDRD) Non-Af 29 L, BUN/Creatinine Ratio 26.5 H, Glucose 175 H, Lactic Acid < 1.0, Calcium 9.9, Phosphorus 3.9, Magnesium 1.8, Total Bilirubin 0.16, Direct Bilirubin 0.09, AST 19, ALT 15, Alkaline Phosphatase 136 H, Total Protein 9.2 H, Albumin 4.4, G lobulin 4.8 H, Lipase 399 H Micro: Microbiology 05/24/25 06:16 Mucosa - Nose SARS-CoV-2, Influenza & RSV (PCR) - Final Imaging Radiology Impression Abdomen/Pelvis CT 05/24/25 06:12 IMPRESSION: Patchy left lower lobe infiltrate. Ileostomy and status post colectomy. Fluid distention of the stomach and mildly distended fluid-filled bowel loops in the right midabdomen. Diffuse omental metastasis. Status post splenectomy. Reading Location: [id number] Chest X-Ray 05/24/25 06:12 IMPRESSION: There is minimal atelectasis or infiltrate in the left lingular segment. Reading Location: [facility]
--- NOTE | 2025-05-24 15:01 | ED.RN ---
This RN called [facility] [id number] to give report and was told unit cannot take report at this time and was requested to call back at a different time.
--- NOTE | 2025-05-24 15:41 | ED.RN ---
Report given to PETER CLOUD
== END 2025-05-24 16:28 | disposition short-term general hospital (02) ==
PROVIDERS: Emergency Provider Emergency Medicine; PCP Internal Medicine; Visit Provider Emergency Medicine
DX: R11.2 Nausea with vomiting, unspecified (principal); Z93.2 Ileostomy status; D72.829 Elevated white blood cell count, unspecified; R19.7 Diarrhea, unspecified; N18.9 Chronic kidney disease, unspecified; E87.20 Acidosis, unspecified; E86.0 Dehydration; E87.5 Hyperkalemia; Z85.89 Personal history of malignant neoplasm of other organs and systems; Z90.81 Acquired absence of spleen; Z90.49 Acquired absence of other specified parts of digestive tract
CPT/HCPCS: 71046; 74176; 80048; 80076; 83605; 83690; 83735; 84100; 85025; 87631; 96361; 96365; 96366; 96367; 99284; A4216; J0696